=== PATIENT | female | born 1965 | race Caucasian/White ===

== ENCOUNTER 2023-02-02 10:01 | Emergency (ER) | payer OTHER, SELFPAY ==
[2023-02-02 10:05] VITALS: BP 154/96; PULSE 77; RESP 18; TEMP 36.8; O2SAT 98; BMI 27.5
--- NOTE | 2023-02-02 10:15 | PC.NURSE ---
Pt was sent back to waiting room in no distress at this time. 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 A few days ago also relative states he sprayed a lot of bug killer fogger in the room they were in and pt started to have worsening symptoms the day after that.
--- NOTE | 2023-02-02 12:44 | ECG_ITS ---
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
[2023-02-02 12:45] VITALS: PULSE 71
--- NOTE | 2023-02-02 12:46 | XR_ITS ---
The [address] [address] Patient Name: JEANMARIE ECHEVARRIA MRN: [id number] date: 1965 Sex: F Assigned Patient Location: ER Current Patient Location: ER Accession/Order Number: [id number] Exam Date: 02/02/2023 13:00 Report Date: 02/02/2023 13:14 At the request of: DEWAYNE ESPINOZA Procedure: XR chest 1V EXAMINATION: XR chest 1V HISTORY: shortness of breath , chest pain COMPARISON: No relevant comparison available. FINDINGS: LUNGS: No significant pulmonary parenchymal abnormalities. VASCULATURE: No increased pulmonary vasculature. PLEURA: No pneumothorax, effusion, or pleural thickening. CARDIAC: No cardiomegaly or cardiac silhouette abnormality. MEDIASTINUM: No visible mass or adenopathy. BONES: No fracture or visible bone lesion. OTHER: Negative. IMPRESSION: 1. No acute cardiopulmonary process. Electronically authenticated by: MARIANN MARQUES Date: 02/02/2023 13:14
[2023-02-02 13:02] LABS: Basophils Absolute Auto 0.1 10^3/uL (0.0-0.1); Basophils Percent Auto 0.6 % (0.2-2.0); Eosinophils Absolute Auto 0.1 10^3/uL (0.0-0.7); Eosinophils Percent Auto 0.8 % (0.9-7.0); Hematocrit 41.6 % (36.0-48.0); Hemoglobin 13.8 g/dL (12.0-16.0); Immature Granulocytes Abs Auto 0.05 10^3/uL (0.00-0.03); Immature Granulocytes Pct Auto 0.4 % (0.0-0.5); Lymphocytes Absolute Auto 3.6 10^3/uL (1.2-3.8); Lymphocytes Percent Auto 27.3 % (20.5-60.0); Mean Corpuscular HGB Conc 33.2 g/dL (29.9-35.2); Mean Corpuscular Hemoglobin 29.6 pg (26.7-34.0); Mean Corpuscular Volume 89.3 fL (81.0-99.0); Mean Platelet Volume 9.5 fL (9.5-13.5); Monocytes Absolute Auto 0.8 10^3/uL (0.3-0.8); Monocytes Percent Auto 6.4 % (1.7-12.0); Neutrophils Absolute Auto 8.5 10^3/uL (1.4-6.5); Neutrophils Percent Auto 64.5 % (43.0-75.0); Platelet Count 396 10^3/uL (150-450); Red Blood Count 4.66 10^6/uL (4.20-5.40); Red Cell Distribution Width 15.4 % (11.0-15.0); White Blood Count 13.2 10^3/uL (4.0-11.0)
[2023-02-02 13:19] LABS: Alanine Aminotransferase 23 U/L (14-59); Albumin Globulin Ratio 0.8; Albumin Level 3.5 g/dL (3.4-5.0); Alkaline Phosphatase 165 U/L (46-116); Anion Gap 13.8; Aspartate Amino Transferase 18 U/L (15-37); BUN Creatinine Ratio 16.5; Bilirubin Total 0.3 mg/dL (0.2-1.0); Calcium 9.5 mg/dL (8.5-10.1); Carbon Dioxide 25.1 mmol/L (21.0-32.0); Chloride 103 mmol/L (98-107); Estimated GFR (African America >60 (>=60); Estimated GFR (Non-African Ame >60 (>=60); Globulin 4.6 g/dL; Glucose 141 mg/dL (74-106); Potassium 3.9 mmol/L (3.5-5.1); Sodium 138 mmol/L (136-145); Total Protein 8.1 g/dL (6.4-8.2); Troponin I High Sensitivity 13.1 pg/mL (4.0-51.3)
--- NOTE | 2023-02-02 13:55 | ED.SOB1 ---
HPI - SOB/Dyspnea General Chief Complaint: Shortness of Breath/Dyspnea Stated Complaint: SOB Time Seen by Provider: 02/02/23 12:46 Source: patient Mode of arrival: walk-in Limitations: no limitations History of Present Illness HPI Narrative: She presents emergency Department with complaint of shortness of breath. She states she has a cough which is nonproductive for a week. She states in the last couple of days and getting worse. She has a history of chronic obstructive pulmonary disease. 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 She also states that they sprayed the house with bronchiolar under and symptoms worsen much more after that. She complains of wheezing. She states when she coughs she gets chest pain. She denies any nausea, vomiting, diarrhea, constipation, abdominal pain. She denies any palpitations, dizziness. She denies any fever, chills. Denies any sore throat. He denies any flank pain, hematuria, dysuria. She denies any trauma. Related Data Home Medications Medication Instructions Recorded Confirmed aspirin 81 mg chewable tablet 81 mg PO DAILY 02/02/23 02/02/23 atorvastatin 80 mg tablet 80 mg PO DAILY 02/02/23 02/02/23 isosorbide mononitrate 30 mg 30 mg PO DAILY 02/02/23 02/02/23 tablet,extended release 24 hr metoprolol succinate 50 mg 50 mg PO Q12H 02/02/23 02/02/23 tablet,extended release 24 hr nitroglycerin 0.4 mg sublingual 0.4 mg sublingual Q5M PRN chest 02/02/23 02/02/23 tablet pain ticagrelor 90 mg tablet (Brilinta) 90 mg PO Q12H 02/02/23 02/02/23 Previous Rx's Medication Instructions Recorded albuterol sulfate 90 mcg/actuation 2 inh inhalation Q4H PRN shortness 02/02/23 breath activated powder inhaler of breath #1 ea methylprednisolone 4 mg tablets in 4 mg PO DAILY #21 ea 02/02/23 a dose pack (Medrol (Rios)) methylprednisolone 4 mg tablets in 4 mg PO DAILY #21 ea 02/02/23 a dose pack (Medrol (Rios)) Allergies Allergy/AdvReac Type Severity Reaction Status Date / Time No Known Drug Allergies Allergy Verified 02/02/23 10:08 Review of Systems ROS Status of ROS 10 or more systems reviewed and unremarkable except as noted in history and below [facility] Social History Smoking status: Current every day smoker Exam Narrative Exam Narrative: Nurses notes and vital signs reviewed and patient is not hypoxic. General: Nontoxic, Well-appearing and in no apparent distress. Skin: Warm, dry, no pallor noted. No Rash Head: Normocephalic, atraumatic. Neck: Supple, non-tender. Eye: Pupils are equal, round and EOMI. No scleral icterus. Ears, Nose, Mouth, and Throat: TM clear, no posterior oropharynx erythema or nasal mucosal hypertrophy, uvula is mid-line Oral mucosa is moist Cardiovascular: Regular Rate and Rhythm without murmur, gallop or rub. Respiratory: No accessory muscle use or respiratory distress. Lungs Occasional expiratory wheeze and rhonchi Chest Wall: no tenderness Back: No midline thoracic or lumbar vertebral tenderness. No CVA tenderness Musculoskeletal: normal ROM, no calf or popliteal tenderness, no lower extremity edema/swelling GI: Abdomen is soft, non-distended. Normal bowel sounds. No masses appreciated. No tenderness to palpation. No rebound, guarding, or rigidity noted. Neurological: A&O x4. No cranial nerve dysfunction observed. No truncal ataxia. Moves all extremities. Sensation intact. Psychiatric: Cooperative and interactive. Normal mood and affect. Constitutional Vital Signs - 24 hr 02/02/23 10:05 02/02/23 14:00 02/02/23 15:04 Temperature 98.2 F Pulse Rate [Monitor] 77 66 Respiratory Rate 18 20 Blood Pressure [Left Arm] 154/96 H 132/69 H Pulse Oximetry 98 98 97 Oxygen Delivery Method Room Air Room Air Course Vital Signs Vital signs: Vital Signs Temperature 98.2 F 02/02/23 10:05 Pulse Rate 77 02/02/23 10:05 Respiratory Rate 18 02/02/23 10:05 Blood Pressure 154/96 H 02/02/23 10:05 Pulse Oximetry 98 02/02/23 10:05 Oxygen Delivery Method Room Air 02/02/23 10:05 Temperature 98.2 F 02/02/23 10:05 Pulse Rate 76 02/02/23 16:01 Respiratory Rate 20 02/02/23 16:01 Blood Pressure 128/64 H 02/02/23 16:01 Pulse Oximetry 98 02/02/23 16:01 Oxygen Delivery Method Room Air 02/02/23 14:00 MDM - SOB/Dyspnea MDM Narrative Medical decision making narrative: Patient had 2 stents placed in 2019. She had a heart catheterization last month at [facility]. No stentable arteries. EKG was compared to EKG from prior [facility] and there are no acute changes. Patient states that she felt better after a DuoNeb treatment was given. She was given 125 Solu-Medrol. She does not have inhalers at home. She will be given a prescription for albuterol and Medrol Dosepak. She is to follow-up with Dr. Nair. She is to follow-up with Dr. garvin. The patient was discussed with Dr. Vicente ang who advised the patient can follow up as an outpatient. At this time the patient is without objective evidence of an acute process requiring hospitalization or inpatient management. The patient has remained hemodynamically stable. No additional indication for emergent studies at this time. I answered all questions. Discussed discharge instructions including standard anticipatory guidance and what should prompt a return to the emergency department, including if they get worse are not getting better or develops any new or concerning symptoms. I've given them specific time frame in which to follow-up, and who to follow-up with. The patient demonstrates understanding. Patient is nontoxic and stable for discharge with outpatient follow-up. This note was created with the assistance of a speech recognition program. Although the intention is to generate documents that actually reflects the content of the visit, no guarantees can be provided that every mistake has been identified and corrected by editing. Differential Diagnosis Differential diagnosis: Likely acute exacerbation of chronic obstructive airways disease, congestive heart failure, community acquired pneumonia, asthma with exacerbation and pulmonary embolism Medical Records Attestation: I reviewed the patient's medical records. Lab Data Attestation: I reviewed the patient's lab results. Labs: Lab Results 02/02/23 02/02/23 Range/Units 12:50 14:13 WBC 13.2 H (4.0-11.0) 10^3/uL RBC 4.66 (4.20-5.40) 10^6/uL Hgb 13.8 (12.0-16.0) g/dL Hct 41.6 (36.0-48.0) % MCV 89.3 (81.0-99.0) fL MCH 29.6 (26.7-34.0) pg MCHC 33.2 (29.9-35.2) g/dL RDW 15.4 H (11.0-15.0) % Plt Count 396 (150-450) 10^3/uL MPV 9.5 (9.5-13.5) fL Neut % (Auto) 64.5 (43.0-75.0) % Lymph % (Auto) 27.3 (20.5-60.0) % Boyle % (Auto) 6.4 (1.7-12.0) % Eos % (Auto) 0.8 L (0.9-7.0) % Baso % (Auto) 0.6 (0.2-2.0) % Neut # (Auto) 8.5 H (1.4-6.5) 10^3/uL Lymph # (Auto) 3.6 (1.2-3.8) 10^3/uL Boyle # (Auto) 0.8 (0.3-0.8) 10^3/uL Eos # (Auto) 0.1 (0.0-0.7) 10^3/uL Baso # (Auto) 0.1 (0.0-0.1) 10^3/uL Abs Immat Gran (auto) 0.05 H (0.00-0.03) 10^3/uL Imm/Tot Granulo (auto) 0.4 (0.0-0.5) % D-Dimer 0.47 (<=0.59) mg/L FEU Sodium 138 (136-145) mmol/L Potassium 3.9 (3.5-5.1) mmol/L Chloride 103 (98-107) mmol/L Carbon Dioxide 25.1 (21.0-32.0) mmol/L Anion Gap 13.8 BUN 13.0 (7.0-18.0) mg/dL Creatinine 0.79 (0.55-1.02) mg/dL Est GFR ( Amer) >60 (>=60) Est GFR (Non-Af Amer) >60 (>=60) BUN/Creatinine Ratio 16.5 Glucose 141 H (74-106) mg/dL Calcium 9.5 (8.5-10.1) mg/dL Total Bilirubin 0.3 (0.2-1.0) mg/dL AST 18 (15-37) U/L ALT 23 (14-59) U/L Alkaline Phosphatase 165 H (46-116) U/L Troponin I High Sens 13.1 13.9 (4.0-51.3) pg/mL NT-Pro-B Natriuret Pep 706.0 (<=900.0) pg/mL Total Protein 8.1 (6.4-8.2) g/dL Albumin 3.5 (3.4-5.0) g/dL Globulin 4.6 g/dL Albumin/Globulin Ratio 0.8 ECG Data Attestation: I personally reviewed and interpreted this ECG as follows: (Sinus rhythm 60 bpm, T-wave inversions and ST depressions inferior lateral leads. No change from previous 12/2022) Discharge Plan Discharge Chief Complaint: Shortness of Breath/Dyspnea Clinical Impression: Emphysema lung, Chest pain Patient Disposition: Home, Self-Care Time of Disposition Decision: 15:35 Condition: Good Mode of Transportation: Private Vehicle Prescriptions / Home Meds: New albuterol sulfate 90 mcg/actuation aerosol powdr breath activated 2 inh inhalation Q4H PRN (Reason: shortness of breath) Qty: 1 0RF methylprednisolone [Medrol (Rios)] 4 mg tablets,dose pack 4 mg PO DAILY Qty: 21 0RF methylprednisolone [Medrol (Rios)] 4 mg tablets,dose pack 4 mg PO DAILY Qty: 21 0RF No Action aspirin 81 mg tablet,chewable 81 mg PO DAILY atorvastatin 80 mg tablet 80 mg PO DAILY isosorbide mononitrate 30 mg tablet extended release 24 hr 30 mg PO DAILY metoprolol succinate 50 mg tablet extended release 24 hr 50 mg PO Q12H nitroglycerin 0.4 mg tablet, sublingual 0.4 mg sublingual Q5M PRN (Reason: chest pain) Brilinta 90 mg tablet 90 mg PO Q12H Instructions: Chest Pain (ED), Emphysema (ED) Stand Alone Forms: Portal Instructions Referrals: JON GARVIN [Primary Care Provider] - 1 week Radames Nair DO [Physician] - 1 week Discharge Date/Time: 02/02/23 16:06
[2023-02-02 14:00] VITALS: O2SAT 98
[2023-02-02] MEDS: IPRATROPIUM/ALBUTEROL SULFATE 3 ML AMPUL.NEB IH (14:09)
[2023-02-02 14:31] LABS: D Dimer 0.47 mg/L FEU (<=0.59)
[2023-02-02 14:52] LABS: Troponin I High Sensitivity 13.9 pg/mL (4.0-51.3)
[2023-02-02] MEDS: METHYLPREDNISOLONE SOD SUCC PF 125 MG/2 ML VIAL IM (15:01)
[2023-02-02 15:04] VITALS: BP 132/69; PULSE 66; RESP 20; O2SAT 97
[2023-02-02 16:01] VITALS: BP 128/64; PULSE 76; RESP 20; O2SAT 98
== END 2023-02-02 16:06 | disposition home or self-care (01) ==
PROVIDERS: Emergency Provider Emergency Medicine; PCP Family Medicine
DX: J43.9 Emphysema, unspecified (principal); R07.9 Chest pain, unspecified; Z79.82 Long term (current) use of aspirin; Z95.5 Presence of coronary angioplasty implant and graft; Z79.899 Other long term (current) drug therapy
CPT/HCPCS: 36415; 71045; 80053; 83880; 84484; 85025; 85378; 93005; 94640; 96374; 99285; G0463; J2930

== ENCOUNTER 2023-02-19 18:21 | Inpatient (IN) | payer OTHER, SELFPAY ==
[2023-02-19] VITALS (17 sets, daily range): BP systolic 143–173; BP diastolic 81–132; PULSE 78–109; RESP 14–34; TEMP 36.8–37.2; O2SAT 93–99; BMI 27.5; BMI 28.5
--- NOTE | 2023-02-19 18:25 | ECG_ITS ---
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
--- NOTE | 2023-02-19 18:26 | CT_ITS ---
The [address] [address] Patient Name: JEANMARIE ECHEVARRIA MRN: [id number] date: 1965 Sex: F Assigned Patient Location: ER Current Patient Location: Accession/Order Number: [id number] Exam Date: 02/19/2023 18:35 Report Date: 02/19/2023 19:32 At the request of: JOEL RIDDLE Procedure: CT angio chest EXAM: CT pulmonary angiogram of the chest using IV iodinated contrast. 3-D imaging was performed. Dose reduction technique used: Automated exposure control and/or adjustment of the mA and/or kV according to patient size and/or use of iterative reconstruction technique. REASON FOR EXAM: Dyspnea, cough r/o pe COMPARISON: None FINDINGS: No pulmonary emboli. No aortic dissection. No pneumothorax. No acute airspace opacities. No pleural effusion. No acute fractures. Mass adjacent abutting the superior margin of the left mainstem bronchus, anterior margin of the aorta and anterior esophagus measuring r 3.0 x 1.9 x 2.2 cm this has central low density relative to the periphery and has mass effect upon the airway. There is mild surrounding fat stranding. 4 mm posterior left upper lobe solid horn nodule. 2 mm right upper lobe solid nodule (series 4, image 31). Coronary atherosclerotic calcifications. Chronic T7 compression fracture with minimal height loss. Remainder unremarkable. IMPRESSION: 1. Mass in the left mediastinum abutting and narrowing the left mainstem bronchus. This may represent malignancy or abscess/infection would be a alternative consideration. This could be further evaluated with MRI or endoscopic ultrasound. 2. No pulmonary embolism or other acute abnormalities in the chest. 3. Tiny indeterminate pulmonary nodules. Electronically authenticated by: RONALD HUGGINS Date: 02/19/2023 19:32
--- NOTE | 2023-02-19 18:32 | ED.GENADUL1 ---
HPI - General Adult General Chief complaint: Shortness of Breath/Dyspnea Stated complaint: Shortness of Breath Time Seen by Provider: 02/19/23 18:24 Source: patient Mode of arrival: ambulance Limitations: no limitations History of Present Illness HPI narrative: Patient is a 57-year-old female presents to the Emergency Room with concerns of shortness of breath and chest and back pain. Patient has a history of smoking, was recently seen in the Emergency Room on 02/02/23 for the same complaint and patient notes despite a Medrol Dosepak and prednisone her symptoms are worse. Patient has been playing phone tag with pulmonology and has not yet gotten in for follow-up visit. Patient is on her left and aspirin with a history of cardiac stents in two thousand twenty. Previous Emergency Room note mentions a cardiac catheter one month ago. Patient reports pain with breathing pleuritic burning sensation between her shoulder blades and substernal chest. Patient recently had a flight to [place] six days ago and did note some shortness of breath while traveling in the plane as well. She has had a nonproductive cough for three weeks. She denies any fevers or chills. She has home inhalers but did not use them today. Patient able to speak in full sentences, audible wheezes noted at the bedside. It's been three weeks and I'm not any better. Related Data Home Medications Medication Instructions Recorded Confirmed aspirin 81 mg chewable tablet 81 mg PO DAILY 02/02/23 02/19/23 atorvastatin 80 mg tablet 80 mg PO DAILY 02/02/23 02/19/23 isosorbide mononitrate 30 mg 30 mg PO DAILY 02/02/23 02/19/23 tablet,extended release 24 hr metoprolol succinate 50 mg 50 mg PO Q12H 02/02/23 02/19/23 tablet,extended release 24 hr nitroglycerin 0.4 mg sublingual 0.4 mg sublingual Q5M PRN chest 02/02/23 02/19/23 tablet pain ticagrelor 90 mg tablet (Brilinta) 90 mg PO Q12H 02/02/23 02/19/23 Previous Rx's Medication Instructions Recorded albuterol sulfate 90 mcg/actuation 2 inh inhalation Q4H PRN shortness 02/02/23 breath activated powder inhaler of breath #1 ea Allergies Allergy/AdvReac Type Severity Reaction Status Date / Time No Known Drug Allergies Allergy Verified 02/02/23 10:08 Review of Systems ROS Constitutional Denies: fever or chills Cardiovascular Reports: chest pain; Denies: palpitations, edema or swelling of feet/ankles Respiratory Reports: shortness of breath, cough, wheezing and pain on inspiration; Denies: coughing up blood Gastrointestinal Denies: abdominal pain, nausea or vomiting Genitourinary Denies: painful urination Musculoskeletal Denies: back pain or neck pain Integumentary/Breast Denies: rash, itching or redness Neurological Denies: headache Psychiatric Denies: anxiety Hematologic/Lymphatic Denies: easy bruising Allergic/Immunologic Denies: hives PFSH [facility] Medical History (Updated 02/19/23 @ 22:24 by Elisabeth Singer) Surgical History (Updated 02/19/23 @ 22:24 by Elisabeth Singer) Family History (Updated 02/19/23 @ 22:25 by Elisabeth Singer) Mother Family history of CHF (congestive heart failure) Family history of diabetes mellitus Family history of hypertension Family history of myocardial infarction Social History (Updated 02/19/23 @ 22:28 by Elisabeth Singer) Within the past year, how often did you have a drink containing alcohol: never Within the past year, how often did you have six or more drinks on one occasion: never Score interpretation: A score less than 3 is consistent with normal alcohol consumption. Smoking status: Current every day smoker Second hand tobacco smoke exposure: Yes Non-prescribed substance use: denies use Previous occupational history: Does not work Known occupational exposures/hazards: No Highest level of school completed/degree received: high school graduate Do you want help with school or training: No Are you now , , , , never or living with a partner: In a typical week, how many times do you talk on the telephone with family, friends, or neighbors: never How often do you get together with friends or relatives: never How often do you attend mu-ism or nondenominational services: never Do you belong to any clubs or organizations such as mu-ism groups unions, fraternal or athletic groups, or school groups: no Total score: 1 Score interpretation: A score of less than or equal to 1 indicates the most socially isolated. Little interest or pleasure in doing things: several days Feeling down, depressed, or hopeless: several days Feel stressed/tense/nervous/anxious/difficulty sleeping: very much Life stressors: other Life stressor details: Due to disability, difficulty making decisions: No Do you think of yourself as: straight/heterosexual Gender Identity: female Exam Narrative Exam Narrative: Nurses notes and vital signs reviewed and patient is hypoxic. General: The patient appears well and in no apparent distress. Audible wheezes are noted, she is sitting up in the cart without any accessory muscle use. Skin: Warm, dry, no pallor noted. No evidence of rash, patient has a topical pain patch applied to the midthoracic region Head: Normocephalic, atraumatic Neck: Supple, trachea mid-line, no tenderness, no lymphadenopathy Eye: Pupils are equal, round and reactive to light, EOMI Ears, Nose, Mouth, and Throat: TM are clear, normal light reflex, oral mucosa is moist, no posterior oropharynx erythema or hypertrophy, uvula is mid-line Cardiovascular: Regular Rate and Rhythm Respiratory: Patient is in no distress, no accessory muscle use, lungs with notable wheezing. Diminished in the bases Chest Wall: no tenderness, pleuritic chest pain with deep breath Back: non-tender, no CVA tenderness Musculoskeletal: normal ROM, no tenderness, no swelling GI: Normal bowel sounds, no tenderness to palpation, no masses appreciated. No rebound, guarding, or rigidity noted. Neurological: A&O x4 Psychiatric: Cooperative Constitutional Vital Signs - 24 hr 02/19/23 18:22 02/19/23 18:31 02/19/23 18:34 Temperature 98.9 F Pulse Rate Pulse Rate [Monitor] 93 H Respiratory Rate 22 26 H Blood Pressure Blood Pressure [Right Arm] 155/101 H Pulse Oximetry 93 L 94 L 95 Oxygen Delivery Method Room Air Room Air Room Air Oxygen Delivery Flow Rate 02/19/23 19:20 02/19/23 19:23 02/19/23 19:31 Temperature Pulse Rate 86 78 96 H Pulse Rate [Monitor] Respiratory Rate 20 18 18 Blood Pressure Blood Pressure [Right Arm] Pulse Oximetry 96 99 95 Oxygen Delivery Method Oxygen Delivery Flow Rate 02/19/23 19:40 02/19/23 18:29 02/19/23 18:29 Temperature Pulse Rate 88 88 Pulse Rate [Monitor] Respiratory Rate 25 H 14 16 Blood Pressure 143/100 H Blood Pressure [Right Arm] Pulse Oximetry 97 94 L 94 L Oxygen Delivery Method Nasal Cannula Oxygen Delivery Flow Rate 2 02/19/23 18:30 02/19/23 19:00 02/19/23 19:30 Temperature Pulse Rate 87 80 95 H Pulse Rate [Monitor] Respiratory Rate 17 16 34 H Blood Pressure 168/90 H 161/96 H 162/96 H Blood Pressure [Right Arm] Pulse Oximetry 95 99 97 Oxygen Delivery Method Oxygen Delivery Flow Rate 02/19/23 20:00 02/19/23 20:00 02/19/23 20:30 Temperature Pulse Rate 92 H 90 90 Pulse Rate [Monitor] Respiratory Rate 18 20 14 Blood Pressure 154/132 H 154/132 H 173/105 H Blood Pressure [Right Arm] Pulse Oximetry 98 97 98 Oxygen Delivery Method Oxygen Delivery Flow Rate Course Vital Signs Vital signs: Vital Signs Temperature 98.9 F 02/19/23 18:22 Pulse Rate 93 H 02/19/23 18:22 Respiratory Rate 22 02/19/23 18:22 Blood Pressure 155/101 H 02/19/23 18:22 Pulse Oximetry 93 L 02/19/23 18:22 Oxygen Delivery Method Room Air 02/19/23 18:22 Temperature 98.3 F 02/19/23 21:31 Pulse Rate 93 H 02/19/23 21:31 Respiratory Rate 18 02/19/23 21:31 Blood Pressure 155/81 H 02/19/23 21:31 Pulse Oximetry 93 L 02/19/23 21:31 Oxygen Delivery Method Room Air 02/19/23 21:31 Oxygen Delivery Flow Rate 2 02/19/23 19:40 Medical Decision Making MDM Narrative Medical decision making narrative: Patient presents with likely chronic obstructive pulmonary disease/emphysema exacerbation. Patient continuing to smoke. Reports compliance with her medications, did have recent long travels with [employer] flight, a CTA of the chest be performed. Patient medicated with DuoNeb and albuterol inhaler, she is given 125 mg Solu-Medrol IV. Patient did not take her own home inhalers today. She verbalized plan previously to meet with certified social workers in health care outpatient but has not yet been able to schedule an appointment. Patient reports pain 7/10 with deep breath and cough, she will be given Hycodan to help with pain and suppress cough. We reviewed CT of the chest noted for mediastinal mass possibly pushing on the left main stem bronchus. Patient with shortness of breath and a likely chronic obstructive pulmonary disease exacerbation the case is discussed with Dr. uribe, not hospitalist who is agreeable with admission for pulmonology consult, patient definitively may need eval cardiothoracic surgery pending further breathing, patient requiring 2 L/m nasal cannula. Patient agreeable with admission for further treatment, she'll be started on Rocephin and Levaquin IV with blood cultures pending. Lab Data Lab results reviewed: Yes I reviewed the patient's lab results Lab results narrative: Lactic pending with admission noted elevated white blood cell count Labs: Lab Results 02/19/23 02/19/23 02/19/23 Range/Units 18:25 20:00 20:42 WBC 16.3 H (4.0-11.0) 10^3/uL RBC 4.64 (4.20-5.40) 10^6/uL Hgb 13.7 (12.0-16.0) g/dL Hct 41.2 (36.0-48.0) % MCV 88.8 (81.0-99.0) fL MCH 29.5 (26.7-34.0) pg MCHC 33.3 (29.9-35.2) g/dL RDW 15.6 H (11.0-15.0) % Plt Count 440 (150-450) 10^3/uL MPV 9.5 (9.5-13.5) fL Neut % (Auto) 58.4 (43.0-75.0) % Lymph % (Auto) 32.1 (20.5-60.0) % [place] % (Auto) 7.8 (1.7-12.0) % Eos % (Auto) 0.7 L (0.9-7.0) % Baso % (Auto) 0.6 (0.2-2.0) % Neut # (Auto) 9.5 H (1.4-6.5) 10^3/uL Lymph # (Auto) 5.3 H (1.2-3.8) 10^3/uL [place] # (Auto) 1.3 H (0.3-0.8) 10^3/uL Eos # (Auto) 0.1 (0.0-0.7) 10^3/uL Baso # (Auto) 0.1 (0.0-0.1) 10^3/uL Abs Immat Gran (auto) 0.06 H (0.00-0.03) 10^3/uL Imm/Tot Granulo (auto) 0.4 (0.0-0.5) % PT 10.3 (9.0-11.6) sec INR 0.97 APTT 30.5 (22.3-36.2) sec Sodium 137 (136-145) mmol/L Potassium 3.8 (3.5-5.1) mmol/L Chloride 105 (98-107) mmol/L Carbon Dioxide 20.2 L (21.0-32.0) mmol/L Anion Gap 15.6 BUN 16.0 (7.0-18.0) mg/dL Creatinine 0.95 (0.55-1.02) mg/dL Est GFR ( Amer) >60 (>=60) Est GFR (Non-Af Amer) >60 (>=60) BUN/Creatinine Ratio 16.8 Glucose 117 H (74-106) mg/dL Lactate 1.0 (0.4-2.0) mmol/L Calcium 9.3 (8.5-10.1) mg/dL Total Bilirubin 0.2 (0.2-1.0) mg/dL AST 23 (15-37) U/L ALT 24 (14-59) U/L Alkaline Phosphatase 170 H (46-116) U/L Troponin I High Sens 26.9 (4.0-51.3) pg/mL Total Protein 8.1 (6.4-8.2) g/dL Albumin 3.6 (3.4-5.0) g/dL Globulin 4.5 g/dL Albumin/Globulin Ratio 0.8 SARS-CoV-2 (PCR) Negative (NEGATIVE) At the request of: JOEL RIDDLE Procedure: CT angio chest EXAM: CT pulmonary angiogram of the chest using IV iodinated contrast. 3-D imaging was performed. Dose reduction technique used: Automated exposure control and/or adjustment of the mA and/or kV according to patient size and/or use of iterative reconstruction technique. REASON FOR EXAM: Dyspnea, cough r/o pe COMPARISON: None FINDINGS: No pulmonary emboli. No aortic dissection. No pneumothorax. No acute airspace opacities. No pleural effusion. No acute fractures. Mass adjacent abutting the superior margin of the left mainstem bronchus, anterior margin of the aorta and anterior esophagus measuring r 3.0 x 1.9 x 2.2 cm this has central low density relative to the periphery and has mass effect upon the airway. There is mild surrounding fat stranding. 4 mm posterior left upper lobe solid horn nodule. 2 mm right upper lobe solid nodule (series 4, image 31). Coronary atherosclerotic calcifications. Chronic T7 compression fracture with minimal height loss. Remainder unremarkable. IMPRESSION: 1. Mass in the left mediastinum abutting and narrowing the left mainstem bronchus. This may represent malignancy or abscess/infection would be a alternative consideration. This could be further evaluated with MRI or endoscopic ultrasound. 2. No pulmonary embolism or other acute abnormalities in the chest. 3. Tiny indeterminate pulmonary nodules. Electronically authenticated by: RONALD HUGGINS Date: 02/19/2023 19:32 ECG Data Attestation: I personally reviewed and interpreted this ECG as follows: (EKG interpretation: Emergency Department physician interpretation, 90bpm normal sinus rhythm, no ectopy, no ST segment elevation,? st depression lateral leads, with inverted t waves) Prior ECG tracings: available for review (EKG 02/02/23 appears unchanged.) Discharge Plan Discharge Chief Complaint: Shortness of Breath/Dyspnea Clinical Impression: Mediastinal mass, Hypoxia, Acute exacerbation of chronic obstructive pulmonary disease Patient Disposition: Admitted As Inpatient Time of Disposition Decision: 19:56 Condition: Good Discharge Date/Time: 02/19/23 21:23
[2023-02-19 18:35] LABS: Basophils Absolute Auto 0.1 10^3/uL (0.0-0.1); Basophils Percent Auto 0.6 % (0.2-2.0); Eosinophils Absolute Auto 0.1 10^3/uL (0.0-0.7); Eosinophils Percent Auto 0.7 % (0.9-7.0); Hematocrit 41.2 % (36.0-48.0); Hemoglobin 13.7 g/dL (12.0-16.0); Immature Granulocytes Abs Auto 0.06 10^3/uL (0.00-0.03); Immature Granulocytes Pct Auto 0.4 % (0.0-0.5); Lymphocytes Absolute Auto 5.3 10^3/uL (1.2-3.8); Lymphocytes Percent Auto 32.1 % (20.5-60.0); Mean Corpuscular HGB Conc 33.3 g/dL (29.9-35.2); Mean Corpuscular Hemoglobin 29.5 pg (26.7-34.0); Mean Corpuscular Volume 88.8 fL (81.0-99.0); Mean Platelet Volume 9.5 fL (9.5-13.5); Monocytes Absolute Auto 1.3 10^3/uL (0.3-0.8); Monocytes Percent Auto 7.8 % (1.7-12.0); Neutrophils Absolute Auto 9.5 10^3/uL (1.4-6.5); Neutrophils Percent Auto 58.4 % (43.0-75.0); Platelet Count 440 10^3/uL (150-450); Red Blood Count 4.64 10^6/uL (4.20-5.40); Red Cell Distribution Width 15.6 % (11.0-15.0); White Blood Count 16.3 10^3/uL (4.0-11.0)
[2023-02-19 18:52] LABS: Alanine Aminotransferase 24 U/L (14-59); Albumin Globulin Ratio 0.8; Albumin Level 3.6 g/dL (3.4-5.0); Alkaline Phosphatase 170 U/L (46-116); Anion Gap 15.6; Aspartate Amino Transferase 23 U/L (15-37); BUN Creatinine Ratio 16.8; Bilirubin Total 0.2 mg/dL (0.2-1.0); Calcium 9.3 mg/dL (8.5-10.1); Carbon Dioxide 20.2 mmol/L (21.0-32.0); Chloride 105 mmol/L (98-107); Estimated GFR (African America >60 (>=60); Estimated GFR (Non-African Ame >60 (>=60); Globulin 4.5 g/dL; Glucose 117 mg/dL (74-106); INR 0.97; Partial Thromboplastin Time 30.5 sec (22.3-36.2); Potassium 3.8 mmol/L (3.5-5.1); Prothrombin Time 10.3 sec (9.0-11.6); Sodium 137 mmol/L (136-145); Total Protein 8.1 g/dL (6.4-8.2); Troponin I High Sensitivity 26.9 pg/mL (4.0-51.3)
[2023-02-19] MEDS: METHYLPREDNISOLONE SOD SUCC PF 125 MG/2 ML VIAL IVP (19:12)
[2023-02-19] MEDS: KETOROLAC TROMETHAMINE 30 MG/ML VIAL 15 MG IVP (19:12)
[2023-02-19] MEDS: 0.9 % SODIUM CHLORIDE 1,000 ML 999 ML IV (19:13)
[2023-02-19] MEDS: IPRATROPIUM/ALBUTEROL SULFATE 3 ML AMPUL.NEB IH ×2 (19:14→23:40)
[2023-02-19] MEDS: ALBUTEROL SULFATE 2.5 MG/3 ML VIAL NEB (19:23)
--- NOTE | 2023-02-19 19:41 | PC.NURSE ---
patient used call light and states she feels like she cannot breath. patient is 97% on monitor. recently finished breathing treatment. cough has gotten worse and continuos. patient placed on 2 liters for comfort. physician notifed. patient in high fowlers.
[2023-02-19] MEDS: LEVOFLOXACIN IN DEXTROSE 5 % 750 MG/150 ML IV.SOLN 100 MG IV (20:08)
[2023-02-19 21:13] LABS: SARS-CoV-2 Ag NEGATIVE (NEGATIVE)
--- NOTE | 2023-02-19 21:38 | PC.NURSE ---
o2 discontinued prior to admission. patient 96 on RA. no longer coughing continuously
[2023-02-19] MEDS: CEFTRIAXONE 1,000 MG in 0.9 % SODIUM CHLORIDE 50 ML 100 MG IV (22:32)
--- NOTE | 2023-02-19 23:19 | W.PM.TELEPN ---
Progress Note: Subjective Subjective Interval history: cough, SOB, night sweats HPI: this is a 57-year-old female w/hx/o COPD, life-long smoker, who presents to the Emergency Room with above complaints. The patient endorses shortness of breath and chest and back pain. Patient was recently seen in the Emergency Room ( 02/02/23 ) with similar complaints, was diagnosed with COPD exacerbation and was D/C'ed with Medrol Dosepak. In spite of prednisone her symptoms are worse. Patient has been playing phone tag with pulmonology and has not yet gotten in for follow-up visit. Patient also has a hx/o CAD, S/P PCI + stents in 2019. Previous Emergency Room note mentions a cardiac catheter one month ago. Patient reports pain with breathing pleuritic burning sensation between her shoulder blades and substernal chest. Patient recently had a flight to [place] six days ago and did note some shortness of breath while traveling in the plane as well. She has had a nonproductive cough for three weeks. She denies any fevers or chills. She has home inhalers but did not use them today. Patient able to speak in full sentences, audible wheezes noted at the bedside. It's been three weeks and I'm not any better. Evaluation in ED significant for elevated WBCs and peribronchial or mediastinal mass, possible abscess. EBUS recommended. Exam Narrative Exam Narrative: NAD, PERRLA, EOMI Neck - supple, thyroid not enlarged Lungs - coarse BSs, decreased at bases, expiratory wheezes S1, S2, no murmurs or gallops ABd - S?NT/ND/+ BSs Ext - no C/C/E Neuro - CN II-XI grossly intact SKin - no rushes Constitutional Vital Signs - 24 hr 02/19/23 18:22 02/19/23 18:31 02/19/23 18:34 Temperature 98.9 F Pulse Rate Pulse Rate [Monitor] 93 H Respiratory Rate 22 26 H Blood Pressure Blood Pressure [Right Arm] 155/101 H Pulse Oximetry 93 L 94 L 95 Oxygen Delivery Method Room Air Room Air Room Air Oxygen Delivery Flow Rate 02/19/23 19:20 02/19/23 19:23 02/19/23 19:31 Temperature Pulse Rate 86 78 96 H Pulse Rate [Monitor] Respiratory Rate 20 18 18 Blood Pressure Blood Pressure [Right Arm] Pulse Oximetry 96 99 95 Oxygen Delivery Method Oxygen Delivery Flow Rate 02/19/23 19:40 02/19/23 18:29 02/19/23 18:29 Temperature Pulse Rate 88 88 Pulse Rate [Monitor] Respiratory Rate 25 H 14 16 Blood Pressure 143/100 H Blood Pressure [Right Arm] Pulse Oximetry 97 94 L 94 L Oxygen Delivery Method Nasal Cannula Oxygen Delivery Flow Rate 2 02/19/23 18:30 02/19/23 19:00 02/19/23 19:30 Temperature Pulse Rate 87 80 95 H Pulse Rate [Monitor] Respiratory Rate 17 16 34 H Blood Pressure 168/90 H 161/96 H 162/96 H Blood Pressure [Right Arm] Pulse Oximetry 95 99 97 Oxygen Delivery Method Oxygen Delivery Flow Rate 02/19/23 20:00 02/19/23 20:00 02/19/23 20:30 Temperature Pulse Rate 92 H 90 90 Pulse Rate [Monitor] Respiratory Rate 18 20 14 Blood Pressure 154/132 H 154/132 H 173/105 H Blood Pressure [Right Arm] Pulse Oximetry 98 97 98 Oxygen Delivery Method Oxygen Delivery Flow Rate 02/19/23 21:31 02/19/23 21:23 Temperature 98.3 F Pulse Rate 93 H Pulse Rate [Monitor] Respiratory Rate 18 20 Blood Pressure Blood Pressure [Right Arm] 155/81 H Pulse Oximetry 93 L 96 Oxygen Delivery Method Room Air Room Air Oxygen Delivery Flow Rate Progress Note: Objective Labs Labs: Short CBC 02/19/23 Range/Units 18:25 WBC 16.3 H (4.0-11.0) 10^3/uL Hgb 13.7 (12.0-16.0) g/dL Hct 41.2 (36.0-48.0) % Plt Count 440 (150-450) 10^3/uL BMP 02/19/23 18:25 Sodium 137 Potassium 3.8 Chloride 105 Carbon Dioxide 20.2 L BUN 16.0 Creatinine 0.95 Glucose 117 H Calcium 9.3 Liver Function 02/19/23 Range/Units 18:25 Total Bilirubin 0.2 (0.2-1.0) mg/dL AST 23 (15-37) U/L ALT 24 (14-59) U/L Alkaline Phosphatase 170 H (46-116) U/L Albumin 3.6 (3.4-5.0) g/dL Progress Note: A&P Assessment and Plan (1) Acute exacerbation of chronic obstructive pulmonary disease: Assessment and Plan: - O2 supplementation - inhailed and systemic steroids - bronchodilators - F/U with Dr. Nair (2) Hypoxia: Assessment and Plan: as above (3) Mediastinal mass: Assessment and Plan: F/U with Dr. Nair - EBUS? (4) Chest pain: Assessment and Plan: M/P related to above (5) Emphysema lung: Assessment and Plan: M/P related to chronic tobacco abuse. see #1 (6) HTN (hypertension): Assessment and Plan: continue home dose of metoprolol, adjust as needed (7) Hyperlipemia: Assessment and Plan: verify and continue home dose of statin (8) CAD (coronary artery disease): Assessment and Plan: continue home regiment, patient recently had PCi. Continue ASA and Brilinta (9) History of PTCA: Assessment and Plan: as above (10) Tobacco abuse: Assessment and Plan: counselled ordered Nicotine patch Telemedicine Attestation Telemedicine Attestation I conducted this encounter from [place]] via secure live, [id number] video conference with the patient, located at [facility] with [COPD exacerbation]. Prior to the interview, the risks and benefits of telemedicine were discussed with the patient and verbal consent was obtained.
[2023-02-19] MEDS: BUDESONIDE 0.5 MG/2 ML AMPULE NEB IH (23:33)
[2023-02-20] VITALS (11 sets, daily range): BP systolic 113–140; BP diastolic 61–74; PULSE 88–109; RESP 18; TEMP 36.6–36.8; O2SAT 91–97; BMI 28.5
[2023-02-20] MEDS: NICOTINE 21 MG PATCH.TD24 TD (00:09)
[2023-02-20] MEDS: METHYLPREDNISOLONE SOD SUCC PF 40 MG/ML VIAL IVP ×4 (00:09→22:45)
[2023-02-20] MEDS: BENZONATATE 100 MG CAPSULE PO (00:09)
[2023-02-20] MEDS: ACETAMINOPHEN 325 MG TABLET 650 MG PO ×3 (00:09→11:35)
[2023-02-20] MEDS: PIPERACILLIN SODIUM/TAZOBACTAM 3.375 GM in 0.9 % SODIUM CHLORIDE 50 ML IV ×4 (00:09→22:45)
[2023-02-20] MEDS: TICAGRELOR 90 MG TABLET PO ×3 (00:10→21:04)
[2023-02-20] MEDS: 0.9 % SODIUM CHLORIDE 1,000 ML 75 ML IV (01:08)
[2023-02-20] MEDS: VANCOMYCIN HCL 1,750 MG in 0.9 % SODIUM CHLORIDE 500 ML 1750 MG IV (03:28)
[2023-02-20] MEDS: 0.9 % SODIUM CHLORIDE 500 ML IV (03:40)
[2023-02-20] MEDS: IPRATROPIUM/ALBUTEROL SULFATE 3 ML AMPUL.NEB IH ×5 (04:27→22:44)
[2023-02-20 04:54] LABS: Alanine Aminotransferase 23 U/L (14-59); Albumin Globulin Ratio 0.7; Albumin Level 3.1 g/dL (3.4-5.0); Alkaline Phosphatase 152 U/L (46-116); Anion Gap 17.7; Aspartate Amino Transferase 19 U/L (15-37); BUN Creatinine Ratio 12.3; Bilirubin Total 0.2 mg/dL (0.2-1.0); Calcium 8.8 mg/dL (8.5-10.1); Chloride 106 mmol/L (98-107); Estimated GFR (African America 60 (>=60); Estimated GFR (Non-African Ame 49 (>=60); Globulin 4.6 g/dL; Glucose 208 mg/dL (74-106); Potassium 3.7 mmol/L (3.5-5.1); Sodium 139 mmol/L (136-145); Total Protein 7.7 g/dL (6.4-8.2)
[2023-02-20] MEDS: ISOSORBIDE MONONITRATE 30 MG TAB.ER.24H PO (08:18)
[2023-02-20] MEDS: ATORVASTATIN CALCIUM 40 MG TABLET 80 MG PO (08:19)
[2023-02-20] MEDS: ASPIRIN 81 MG TAB.CHEW PO (08:19)
[2023-02-20] MEDS: OMEPRAZOLE 40 MG CAPSULE.DR PO (08:20)
[2023-02-20] MEDS: BUDESONIDE 0.5 MG/2 ML AMPULE NEB IH ×2 (11:16→22:44)
--- NOTE | 2023-02-20 11:29 | DIETREC ---
Nutrition Recommendations: 1. Add Heart-Healthy restriction to diet. Reviewed with
[2023-02-20] MEDS: OXYCODONE HCL 5 MG TABLET PO (12:45)
[2023-02-20] MEDS: METOPROLOL SUCCINATE 50 MG TAB.ER.24H PO (12:45)
[2023-02-20] MEDS: LACTATED RINGER'S SOLUTION 1,000 ML 125 ML IV (12:50)
--- NOTE | 2023-02-20 14:40 | CM.NOTE ---
Rounds made with Dr. Morfin, discussed results of CT scan and need for transfer to a larger facility for diagnostic testing. Pt in agreement.
[2023-02-20 15:14] LABS: SARS-CoV-2 NAA NOT DETECTED (NOT DETECTE)
[2023-02-20] MEDS: VANCOMYCIN HCL 750 MG in 0.9 % SODIUM CHLORIDE 250 ML 250 MG IV ×2 (16:55→17:59)
[2023-02-20] MEDS: MORPHINE SULFATE 2 MG/ML SYRINGE IV ×2 (16:55→21:04)
--- NOTE | 2023-02-20 18:02 | P.HP_ITS ---
H&P: HPI History of Present Illness Chief complaint: Shortness of Breath MEDIASTINAL MASS HYPOXIA ACUTE Narrative: 57 y o female presents with midsternal pleuritic chest pain with radiation to her back, ongoing for a few months now but more recently, worse in severity, and more or less persistent. She also has associated chronic cough and SOB. She was recently discharged from ED on Z-pack and PO steroids for COPD exacerbation but her symptoms have gotten really worse over past one week. She is very uncomfort able, has persistent Dyspnea even at rest and currently on 2 L O2 via NC. Patient admitted overnight for acute resp failure with hypoxia, COPD exacerbation and mediastinal mass vs infectious abscess for which she is currently on broad spectrum abx (Vancoymcin/Zosyn), systemic steroids and inhaled bronchodilators. Patient's is current smoker and smokes a pack a day. Her biggest complaints is persistent pleuritic chest pain. Denies fever, chills, nausea, vomiting, abdominal pain. Does not have a formal diagnosis of COPD and uses rescue inhaler as needed. She was started on Imdur for her symptoms with an underlying assumption that her symptoms and chest pain were from esophageal spasm Review of Systems ROS Status of ROS 10 or more systems reviewed and unremarkable except as noted in history and below [facility] Medical History (Updated 02/20/23 @ 18:08 by Shaikh Shelbie MD) Surgical History (Updated 02/20/23 @ 18:08 by Shaikh Shelbie MD) Family History (Updated 02/19/23 @ 22:25 by Elisabeth Singer) Mother Family history of CHF (congestive heart failure) Family history of diabetes mellitus Family history of hypertension Family history of myocardial infarction Social History (Updated 02/19/23 @ 22:28 by Elisabeth Singer) Within the past year, how often did you have a drink containing alcohol: never Within the past year, how often did you have six or more drinks on one occasion: never Score interpretation: A score less than 3 is consistent with normal alcohol consumption. Smoking status: Current every day smoker Second hand tobacco smoke exposure: Yes Non-prescribed substance use: denies use Previous occupational history: Does not work Known occupational exposures/hazards: No Highest level of school completed/degree received: high school graduate Do you want help with school or training: No Are you now , , , , never or living with a partner: In a typical week, how many times do you talk on the telephone with family, friends, or neighbors: never How often do you get together with friends or relatives: never How often do you attend advent or pentecostalism services: never Do you belong to any clubs or organizations such as advent groups unions, fraIntense or athletic groups, or school groups: no Total score: 1 Score interpretation: A score of less than or equal to 1 indicates the most socially isolated. Little interest or pleasure in doing things: several days Feeling down, depressed, or hopeless: several days Feel stressed/tense/nervous/anxious/difficulty sleeping: very much Life stressors: other Life stressor details: Due to disability, difficulty making decisions: No Do you think of yourself as: straight/heterosexual Gender Identity: female Meds Home Medications and Allergies Home Medications Medication Instructions Recorded Confirmed Type albuterol sulfate 90 mcg/actuation 2 inh inhalation Q4H PRN shortness 02/02/23 02/19/23 Rx breath activated powder inhaler of breath #1 ea aspirin 81 mg chewable tablet 81 mg PO DAILY 02/02/23 02/19/23 History atorvastatin 80 mg tablet 80 mg PO DAILY 02/02/23 02/19/23 History isosorbide mononitrate 30 mg 30 mg PO DAILY 02/02/23 02/19/23 History tablet,extended release 24 hr metoprolol succinate 50 mg 50 mg PO Q12H 02/02/23 02/19/23 History tablet,extended release 24 hr nitroglycerin 0.4 mg sublingual 0.4 mg sublingual Q5M PRN chest 02/02/23 02/19/23 History tablet pain ticagrelor 90 mg tablet (Brilinta) 90 mg PO Q12H 02/02/23 02/19/23 History Allergies Allergy/AdvReac Type Severity Reaction Status Date / Time No Known Drug Allergies Allergy Verified 02/02/23 10:08 Exam Constitutional Vital Signs - 24 hr 02/19/23 18:22 02/19/23 18:31 02/19/23 18:34 Temperature 98.9 F Pulse Rate Pulse Rate [Monitor] 93 H Respiratory Rate 22 26 H Blood Pressure Blood Pressure [Right Arm] 155/101 H Pulse Oximetry 93 L 94 L 95 Oxygen Delivery Method Room Air Room Air Room Air Oxygen Delivery Flow Rate 02/19/23 19:20 02/19/23 19:23 02/19/23 19:31 Temperature Pulse Rate 86 78 96 H Pulse Rate [Monitor] Respiratory Rate 20 18 18 Blood Pressure Blood Pressure [Right Arm] Pulse Oximetry 96 99 95 Oxygen Delivery Method Oxygen Delivery Flow Rate 02/19/23 19:40 02/19/23 18:29 02/19/23 18:29 Temperature Pulse Rate 88 88 Pulse Rate [Monitor] Respiratory Rate 25 H 14 16 Blood Pressure 143/100 H Blood Pressure [Right Arm] Pulse Oximetry 97 94 L 94 L Oxygen Delivery Method Nasal Cannula Oxygen Delivery Flow Rate 2 02/19/23 18:30 02/19/23 19:00 02/19/23 19:30 Temperature Pulse Rate 87 80 95 H Pulse Rate [Monitor] Respiratory Rate 17 16 34 H Blood Pressure 168/90 H 161/96 H 162/96 H Blood Pressure [Right Arm] Pulse Oximetry 95 99 97 Oxygen Delivery Method Oxygen Delivery Flow Rate 02/19/23 20:00 02/19/23 20:00 02/19/23 20:30 Temperature Pulse Rate 92 H 90 90 Pulse Rate [Monitor] Respiratory Rate 18 20 14 Blood Pressure 154/132 H 154/132 H 173/105 H Blood Pressure [Right Arm] Pulse Oximetry 98 97 98 Oxygen Delivery Method Oxygen Delivery Flow Rate 02/19/23 21:31 02/19/23 21:23 02/19/23 23:53 Temperature 98.3 F Pulse Rate 93 H 107 H Pulse Rate [Monitor] Respiratory Rate 18 20 22 Blood Pressure Blood Pressure [Right Arm] 155/81 H Pulse Oximetry 93 L 96 97 Oxygen Delivery Method Room Air Room Air Room Air Oxygen Delivery Flow Rate 02/19/23 23:33 02/19/23 23:33 02/20/23 04:30 Temperature 98.3 F Pulse Rate 109 H 99 H Pulse Rate [Monitor] Respiratory Rate 20 18 Blood Pressure Blood Pressure [Right Arm] 124/74 H Pulse Oximetry 96 96 96 Oxygen Delivery Method Room Air Room Air Room Air Oxygen Delivery Flow Rate 02/20/23 04:24 02/20/23 05:28 02/20/23 11:20 Temperature Pulse Rate 98 H Pulse Rate [Monitor] Respiratory Rate 18 Blood Pressure Blood Pressure [Right Arm] Pulse Oximetry 94 L 97 Oxygen Delivery Method Room Air Room Air Room Air Oxygen Delivery Flow Rate 02/20/23 13:56 Temperature 98.3 F Pulse Rate 109 H Pulse Rate [Monitor] Respiratory Rate 18 Blood Pressure Blood Pressure [Right Arm] 113/61 Pulse Oximetry 93 L Oxygen Delivery Method Room Air Oxygen Delivery Flow Rate 2 Documenting provider has reviewed patient's vital signs: yes General appearance: in distress Nutritional appearance: obese Orientation/consciousness: Yes awake, Yes oriented to person, Yes oriented to place and Yes oriented to time HENMT Common normals: normocephalic and head/scalp atraumatic Eye Common normals: conjunctivae normal and no scleral icterus Chest Common normals: inspection of chest normal and palpation of chest normal Respiratory Effort & inspection: able to speak in complete sentences and tachypneic Auscultation: wheezes Cardio Common normals: regular rate, S1 normal heart sound, S2 normal heart sound and no murmurs GI Common normals: Normal to inspection, nondistended, normoactive bowel sounds present, soft to palpation, non-tender and no hepatosplenomegaly Extremity Common normals: normal to inspection and full ROM Neuro Common normals: oriented x3, moves all extremities, no focal motor deficits and no sensory deficits noted Psych Common normals: thought process normal, cooperative, denies homicidal ideation and denies suicidal ideation Results Labs Labs: Short CBC 02/19/23 Range/Units 18:25 WBC 16.3 H (4.0-11.0) 10^3/uL Hgb 13.7 (12.0-16.0) g/dL Hct 41.2 (36.0-48.0) % Plt Count 440 (150-450) 10^3/uL BMP 02/19/23 02/20/23 18:25 04:05 Sodium 137 139 Potassium 3.8 3.7 Chloride 105 106 Carbon Dioxide 20.2 L 19.0 L BUN 16.0 14.0 Creatinine 0.95 1.14 H Glucose 117 H 208 H Calcium 9.3 8.8 Liver Function 02/19/23 02/20/23 Range/Units 18:25 04:05 Total Bilirubin 0.2 0.2 (0.2-1.0) mg/dL AST 23 19 (15-37) U/L ALT 24 23 (14-59) U/L Alkaline Phosphatase 170 H 152 H (46-116) U/L Albumin 3.6 3.1 L (3.4-5.0) g/dL Assessment and Plan Assessment and Plan (1) Acute respiratory failure with hypoxemia: Assessment and Plan: Acute resp failure due to mediastinal mass along with COPD exacerbation. (2) Acute exacerbation of chronic obstructive pulmonary disease: Assessment and Plan: Faint exp wheezing on exam. C/w steroids, duonebs as needed (3) Mediastinal mass: Assessment and Plan: Mediastinal mass on CTA with mild narrowing of her bronchus. D/w Pulm and OSH too - will need outpatient broncho vs mediastinoscopy vs IR guided biopsy. Likely neoplastic mass Patient was being treated for presumed infectious etiology/PNA but seems unlikely and will d/c abx. Leukocytosis is likely from steroids prescribed a week ago (4) Chest pain: Assessment and Plan: Persistent, pleuritic chest pain. Likely from mediastinal mass. (5) CAD (coronary artery disease): Assessment and Plan: s/p PCI in 12/17 for STEMI On ASA, brlinta that were on hold in anticipation of mediastinal biopsy. Will resume as plan is for outpatient biopsy. (6) HTN (hypertension): Assessment and Plan: C/w home meds (7) Hyperlipemia: Assessment and Plan: c/w statin (8) Tobacco abuse: Assessment and Plan: discussed smoking cessation, educated the patient
[2023-02-20] MEDS: MONTELUKAST SODIUM 10 MG TABLET PO (21:04)
[2023-02-20] MEDS: ENOXAPARIN SODIUM 40 MG/0.4 ML SYRINGE SUBQ (21:04)
[2023-02-21] MEDS: NICOTINE 21 MG PATCH.TD24 TD (00:13)
[2023-02-21] MEDS: LACTATED RINGER'S SOLUTION 1,000 ML 125 ML IV ×2 (00:13→09:31)
[2023-02-21 01:11] VITALS: PULSE 93; O2SAT 92
[2023-02-21] MEDS: MORPHINE SULFATE 2 MG/ML SYRINGE IV ×2 (01:17→08:20)
[2023-02-21 03:06] VITALS: PULSE 78; O2SAT 93
[2023-02-21 04:22] VITALS: PULSE 77; O2SAT 92
[2023-02-21 04:50] VITALS: PULSE 78; RESP 18; O2SAT 97
[2023-02-21] MEDS: IPRATROPIUM/ALBUTEROL SULFATE 3 ML AMPUL.NEB IH ×3 (04:50→16:18)
[2023-02-21 04:51] LABS: Hemoglobin 10.7 g/dL (12.0-16.0); Mean Corpuscular HGB Conc 33.4 g/dL (29.9-35.2); Mean Corpuscular Hemoglobin 30.2 pg (26.7-34.0); Mean Corpuscular Volume 90.4 fL (81.0-99.0); Mean Platelet Volume 9.9 fL (9.5-13.5); Platelet Count 371 10^3/uL (150-450); Red Blood Count 3.54 10^6/uL (4.20-5.40); Red Cell Distribution Width 16.1 % (11.0-15.0)
[2023-02-21] MEDS: OXYCODONE HCL 5 MG TABLET PO ×2 (05:04→12:32)
[2023-02-21 05:07] LABS: Alanine Aminotransferase 22 U/L (14-59); Albumin Globulin Ratio 0.8; Albumin Level 2.8 g/dL (3.4-5.0); Alkaline Phosphatase 127 U/L (46-116); Anion Gap 14.5; Aspartate Amino Transferase 24 U/L (15-37); BUN Creatinine Ratio 19.2; Bilirubin Total 0.2 mg/dL (0.2-1.0); Calcium 8.6 mg/dL (8.5-10.1); Carbon Dioxide 22.5 mmol/L (21.0-32.0); Chloride 110 mmol/L (98-107); Estimated GFR (African America >60 (>=60); Estimated GFR (Non-African Ame >60 (>=60); Globulin 3.5 g/dL; Glucose 142 mg/dL (74-106); Sodium 143 mmol/L (136-145); Total Protein 6.3 g/dL (6.4-8.2)
[2023-02-21] MEDS: VANCOMYCIN HCL 750 MG in 0.9 % SODIUM CHLORIDE 250 ML 250 MG IV (05:10)
[2023-02-21 05:55] LABS: White Blood Count 30.6 10^3/uL (4.0-11.0)
[2023-02-21 06:00] VITALS: BP 118/83; PULSE 69; PULSE 85; RESP 18; TEMP 36.4; O2SAT 94; O2SAT 95
[2023-02-21 06:03] LABS: Lymphocytes Absolute Manual 3.06 10^3/uL (1.20-3.80); Monocytes Absolute Manual 1.22 10^3/uL (0.30-0.80)
[2023-02-21] MEDS: PIPERACILLIN SODIUM/TAZOBACTAM 3.375 GM in 0.9 % SODIUM CHLORIDE 50 ML IV (07:13)
--- NOTE | 2023-02-21 07:34 | PM.PLCN ---
History of Present Illness History of Present Illness Requesting physician: Jacques Persaud Reason for consult: lung mass (Mediastinal mass) Chief complaint: Shortness of Breath MEDIASTINAL MASS HYPOXIA ACUTE Narrative: 57yo female presents with chest pain and dyspnea. CT chest 02/19/2023 discovered a mediastinal mass. Radiologist recommended MRI or endoscopic ultrasound (EUS). Pulmonary was consulted for an endobronchoscopic ultrasound (EBUS). Spoke with patient; she voiced she did not understand what is going on in her chest. I explained basic thoracic anatomy and the abnormality noted until she voiced understanding of the situation. Etiology of the mass is unknown, but there is high suspicion for neoplasm. Regarding radiology's recommendations, explained that an MRI is not able to be performed here. A special coil is required for mediastinal MRIs and none are available within quite a large radius from here. Regarding EUS, the consult was for an EBUS which is not the same as an EUS - Explained EUS is with an esophagoscopy (which I do not do EGDs) and EBUS is with a bronchoscopy (which we do not even have the correct scope to perform it here). Imaging does show some apparent extrinsic compression of the left main bronchus, but patient does have air movement in the DERECK and LLL regions. Explained to patient that the only thing I would be able to provide would be a screening bronchoscopy to evaluate if the narrowing of the left main bronchus is from extrinsic compression vs. intraluminal mass. She unfortunately took Brilinta last evening, so the risk of bleeding with a biopsy is increased. As this is not a medical emergency (in my opinion), the risks of bleeding outweigh the benefits of any endobronchial biopsies. The patient has decided to pass on a bronchoscopy on this time. EUS may be the best approach in this instance. I contacted [facility] gastroenterology, but they do not peform EUS. They refer their patients to either [facility] or [facility]. I informed BURTON Esteves from case management, Dr. Morfin, and BURTON Barber on the floor of my suggestions. Otherwise, I have nothing further I can offer this patient at the curent time. Review of Systems ROS Narrative Cough, wheeze, chest pain (radiates between shoulders). [facility] Medical History (Updated 02/20/23 @ 18:08 by Shaikh Shelbie MD) Surgical History (Updated 02/20/23 @ 18:08 by Shaikh Shelbie MD) Family History (Updated 02/19/23 @ 22:25 by Elisabeth Singer) Mother Family history of CHF (congestive heart failure) Family history of diabetes mellitus Family history of hypertension Family history of myocardial infarction Social History (Updated 02/19/23 @ 22:28 by Elisabeth Singer) Within the past year, how often did you have a drink containing alcohol: never Within the past year, how often did you have six or more drinks on one occasion: never Score interpretation: A score less than 3 is consistent with normal alcohol consumption. Smoking status: Current every day smoker Second hand tobacco smoke exposure: Yes Non-prescribed substance use: denies use Previous occupational history: Does not work Known occupational exposures/hazards: No Highest level of school completed/degree received: high school graduate Do you want help with school or training: No Are you now , , , , never or living with a partner: In a typical week, how many times do you talk on the telephone with family, friends, or neighbors: never How often do you get together with friends or relatives: never How often do you attend zoroastrian or scientologist services: never Do you belong to any clubs or organizations such as zoroastrian groups unions, fraternal or athletic groups, or school groups: no Total score: 1 Score interpretation: A score of less than or equal to 1 indicates the most socially isolated. Little interest or pleasure in doing things: several days Feeling down, depressed, or hopeless: several days Feel stressed/tense/nervous/anxious/difficulty sleeping: very much Life stressors: other Life stressor details: Due to disability, difficulty making decisions: No Do you think of yourself as: straight/heterosexual Gender Identity: female Meds Home Medications and Allergies Home Medications Medication Instructions Recorded Confirmed Type albuterol sulfate 90 mcg/actuation 2 inh inhalation Q4H PRN shortness 02/02/23 02/19/23 Rx breath activated powder inhaler of breath #1 ea aspirin 81 mg chewable tablet 81 mg PO DAILY 02/02/23 02/19/23 History atorvastatin 80 mg tablet 80 mg PO DAILY 02/02/23 02/19/23 History isosorbide mononitrate 30 mg 30 mg PO DAILY 02/02/23 02/19/23 History tablet,extended release 24 hr metoprolol succinate 50 mg 50 mg PO Q12H 02/02/23 02/19/23 History tablet,extended release 24 hr nitroglycerin 0.4 mg sublingual 0.4 mg sublingual Q5M PRN chest 02/02/23 02/19/23 History tablet pain ticagrelor 90 mg tablet (Brilinta) 90 mg PO Q12H 02/02/23 02/19/23 History Allergies Allergy/AdvReac Type Severity Reaction Status Date / Time No Known Drug Allergies Allergy Verified 02/02/23 10:08 Exam Constitutional Vital Signs - 24 hr 02/20/23 11:20 02/20/23 13:56 02/20/23 18:15 Temperature 98.3 F Pulse Rate 109 H Respiratory Rate 18 Blood Pressure [Right Arm] 113/61 Pulse Oximetry 97 93 L 94 L Oxygen Delivery Method Room Air Room Air Oxygen Delivery Flow Rate 2 02/20/23 20:00 02/20/23 22:00 02/20/23 21:11 Temperature 97.9 F Pulse Rate 97 H 88 91 H Respiratory Rate 18 Blood Pressure [Right Arm] 140/68 H Pulse Oximetry 95 95 92 L Oxygen Delivery Method Room Air Oxygen Delivery Flow Rate 02/20/23 22:06 02/20/23 22:44 02/20/23 22:44 Temperature Pulse Rate 90 94 H Respiratory Rate 18 Blood Pressure [Right Arm] Pulse Oximetry 91 L 94 L Oxygen Delivery Method Room Air Oxygen Delivery Flow Rate 02/20/23 23:45 02/21/23 01:11 02/21/23 03:06 Temperature Pulse Rate 96 H 93 H 78 Respiratory Rate Blood Pressure [Right Arm] Pulse Oximetry 91 L 92 L 93 L Oxygen Delivery Method Oxygen Delivery Flow Rate 02/21/23 04:22 02/21/23 04:50 02/21/23 06:00 Temperature Pulse Rate 77 78 85 Respiratory Rate 18 Blood Pressure [Right Arm] Pulse Oximetry 92 L 97 95 Oxygen Delivery Method Room Air Oxygen Delivery Flow Rate 02/21/23 06:00 Temperature 97.5 F L Pulse Rate 69 Respiratory Rate 18 Blood Pressure [Right Arm] 118/83 H Pulse Oximetry 94 L Oxygen Delivery Method Room Air Oxygen Delivery Flow Rate Documenting provider has reviewed patient's vital signs: yes Common normals: no apparent distress Exam limitations: altered mental status General appearance: cooperative HENMT Common normals: normocephalic Chest Common normals: inspection of chest normal Respiratory Other: Coarse breath sounds and wheezing bilaterally, more on left than right. Cardio Rate: regular rate Rhythm: regular rhythm GI Inspection: normal to inspection Extremity Common normals: no clubbing, cyanosis or edema Neuro Common normals: oriented x3 Psych Common normals: mental status grossly normal Results Laboratory Findings ABG, PT/INR, D-dimer: PT/INR, D-dimer PT 10.3 sec (9.0-11.6) 02/19/23 18:25 INR 0.97 02/19/23 18:25 Abnormal lab findings: Abnormal Labs 02/19/23 02/19/23 02/20/23 18:25 23:00 04:05 WBC 16.3 H RBC Hgb Hct RDW 15.6 H Eos % (Auto) 0.7 L Neut # (Auto) 9.5 H Lymph # (Auto) 5.3 H [place] # (Auto) 1.3 H Abs Immat Gran (auto) 0.06 H Lymphocytes % (Manual) Eosinophils % (Manual) Basophils % (Manual) Neutrophils # (Manual) Monocytes # (Manual) Chloride Carbon Dioxide 20.2 L 19.0 L Creatinine 1.14 H Est GFR (Non-Af Amer) 49 L Glucose 117 H 208 H Lactate 3.0 H* Alkaline Phosphatase 170 H 152 H Total Protein Albumin 3.1 L 02/21/23 04:10 WBC 30.6 H* RBC 3.54 L Hgb 10.7 L Hct 32.0 L RDW 16.1 H Eos % (Auto) Neut # (Auto) Lymph # (Auto) [place] # (Auto) Abs Immat Gran (auto) Lymphocytes % (Manual) 10.0 L Eosinophils % (Manual) 0.0 L Basophils % (Manual) 0.0 L Neutrophils # (Manual) 25.70 H Monocytes # (Manual) 1.22 H Chloride 110 H Carbon Dioxide Creatinine Est GFR (Non-Af Amer) Glucose 142 H Lactate Alkaline Phosphatase 127 H Total Protein 6.3 L Albumin 2.8 L Assessment and Plan Assessment and Plan (1) Mediastinal mass: Plan 1. Mediastinal mass. Measuring 3.0 x 1.9 x 2.2cm with apparent extrinsic compression. Etiology unclear, but clinical suspicion is malignancy. [facility] does not have the diagnostic tools nor the specialists equipped for biopsy. Recommend referral outpatient for EUS. See HPI for further details. 2. Chest pain. Non-cardiac. Associated with mass. Will need to manage pain control for the time being. 3. Coronary artery disease. s/p MO 11/2021, on ASA/Brilinta. 4. Tobacco abuse. Discussed smoking cessation with patient.
[2023-02-21] MEDS: METHYLPREDNISOLONE SOD SUCC PF 40 MG/ML VIAL IVP (08:16)
[2023-02-21] MEDS: ISOSORBIDE MONONITRATE 30 MG TAB.ER.24H PO (08:17)
[2023-02-21] MEDS: METOPROLOL SUCCINATE 50 MG TAB.ER.24H PO (08:17)
[2023-02-21] MEDS: OMEPRAZOLE 40 MG CAPSULE.DR PO (08:20)
[2023-02-21] MEDS: ATORVASTATIN CALCIUM 40 MG TABLET 80 MG PO (08:20)
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
--- NOTE | 2023-02-21 11:54 | CM.NOTE ---
Rounds made with Dr. Morfin, explained to pt about discharge and need for follow-up to schedule for EUS or desired procedure to biopsy mass. Dr. Morfin explained to pt that her primary doctor would refer her to have procedure scheduled. If she were to have problems getting things scheduled, pt can call Dr. Morfin's office and he will assist pt. Pt will be given Dr. Morfin's office number.
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
--- NOTE | 2023-02-21 12:18 | P.DS_ITS ---
DS: Providers Provider Date of admission: 02/19/23 21:23 Primary care physician: JON STEWART Consults: 02/19/23 19:53 Consult to Pulmonology Routine Consulting Provider: Radames Nair 02/19/23 23:12 Consult to Pulmonology Routine Consulting Provider: Radames Nair Attending physician on discharge: Shaikh Shelbie Discharging clinician: Shaikh Shelbie Anticipated date of discharge: 02/21/23 DS: Diagnosis Discharge Diagnosis (1) Mediastinal mass: Assessment and plan: Mediastinal mass- highly suspicious for neoplasm. Patient evaluated by Pulmonology. Specific approach to biopsy is still not quite clear but some options included are EUS or mediastinoscopy. EBUS not a viable options based on location as per Pulm There is mild extrinsic compression of her left bronchus but not significant to warrant urgent bronchoscopic eval or intervention. Patient to f/u with PCP (2) Acute respiratory failure with hypoxemia: Assessment and plan: Back on RA. Likely from mediastinal mass causing intrinsic compression along with COPD exacerbation. (3) CAD (coronary artery disease): Assessment and plan: s/p PCI 12/18. On ASA, brlinta, statin. C/w same Qualifiers: Coronary Disease-Associated Artery/Lesion type: [place] artery [place] vs. transplanted heart: [place] heart Associated angina: without angina Qualified Code(s): I25.10 - Atherosclerotic heart disease of [place] coronary artery without angina pectoris (4) Chest pain: Assessment and plan: Pleuritic, persistent from COPD exacerbation and mediastinal mass. Improved quite a lot today and not nearly as uncomfortable as she was yesterday. Will d/c on Oral Oxycodone for pain control and patient to f/u with PCP for continued care. (5) Acute exacerbation of chronic obstructive pulmonary disease: Assessment and plan: Improved air entry and now has minimal exp wheezing. Will d/c on oral prednisone and ventolin as needed. (6) Leukocytosis: Assessment and plan: Worsened from before - likely due to steroids. There are no definite infiltrates and appearance of mediastinal mass is more concerning for neoplasm. Will empirically treat with oral Levaquin but does not appear to have an ongoing/active infection going on, based on my clinical impression (7) HTN (hypertension): Assessment and plan: c/w home meds. Defer to PCP (8) Hyperlipemia: Assessment and plan: C/w statin (9) Tobacco abuse: Assessment and plan: Discussed smoking cessation with patient. Interested in quitting. She will d/w PCP about possible interventions she might need/get help from DS: Summary Hospital Course Hospital Course: 57 y o female presents with midsternal pleuritic chest pain with radiation to her back, ongoing for a few months now but more recently, worse in severity, and more or less persistent. She also has associated chronic cough and SOB. She was recently discharged from ED on Z-pack and PO steroids for COPD exacerbation but her symptoms had gotten really worse over past one week. Patient was admitted for acute resp failure with hypoxia, COPD exacerbation and mediastinal mass vs infectious abscess for which she received currently on broad spectrum abx (Vancoymcin/Zosyn), systemic steroids and inhaled bronchodilators. Initially, we attempted to [facility] but [facility] at [facility] recommended outpatient f/u. She was seen by Dr Nair who explained and discussed with her, different options/approaches to get her mediastinal mass biopsied. Patient will also be seen by [facility] inpatient who will try to arrange her diagnostic w/u and assist with formulating a plan that works for her to avoid delays. Will d/c patient on oral prednisone, Levaquin and Oxycodone for pain control. Patient to f/u with PCP in one week and Hemonc too in 1-2 weeks Time spent discussing smoking cessation with patient: more than 10 minutes Status at Discharge Functional status at discharge: independent ambulation Overall status at discharge: patient is back to baseline Time Spent with Patient Time attestation: Total time spent providing and/or coordinating discharge services: Time spent: greater than 30 minutes Exam Constitutional Vital Signs - 24 hr 02/20/23 13:56 02/20/23 18:15 02/20/23 20:00 Temperature 98.3 F Pulse Rate 109 H 97 H Respiratory Rate 18 Blood Pressure [Right Arm] 113/61 Pulse Oximetry 93 L 94 L 95 Oxygen Delivery Method Room Air Oxygen Delivery Flow Rate 2 02/20/23 22:00 02/20/23 21:11 02/20/23 22:06 Temperature 97.9 F Pulse Rate 88 91 H 90 Respiratory Rate 18 Blood Pressure [Right Arm] 140/68 H Pulse Oximetry 95 92 L 91 L Oxygen Delivery Method Room Air Oxygen Delivery Flow Rate 02/20/23 22:44 02/20/23 22:44 02/20/23 23:45 Temperature Pulse Rate 94 H 96 H Respiratory Rate 18 Blood Pressure [Right Arm] Pulse Oximetry 94 L 91 L Oxygen Delivery Method Room Air Oxygen Delivery Flow Rate 02/21/23 01:11 02/21/23 03:06 02/21/23 04:22 Temperature Pulse Rate 93 H 78 77 Respiratory Rate Blood Pressure [Right Arm] Pulse Oximetry 92 L 93 L 92 L Oxygen Delivery Method Oxygen Delivery Flow Rate 02/21/23 04:50 02/21/23 06:00 02/21/23 06:00 Temperature 97.5 F L Pulse Rate 78 85 69 Respiratory Rate 18 18 Blood Pressure [Right Arm] 118/83 H Pulse Oximetry 97 95 94 L Oxygen Delivery Method Room Air Room Air Oxygen Delivery Flow Rate Documenting provider has reviewed patient's vital signs: yes Nutritional appearance: obese Orientation/consciousness: Yes awake, Yes oriented to person, Yes oriented to place and Yes oriented to time HENMT Common normals: normocephalic and head/scalp atraumatic Eye Common normals: conjunctivae normal and no scleral icterus Chest Common normals: inspection of chest normal and palpation of chest normal Respiratory Common normals: normal respiratory effort and no use of accessory muscles Effort & inspection: able to speak in complete sentences Auscultation: wheezes expiratory wheezes and scattered wheezes Cardio Common normals: regular rate, S1 normal heart sound, S2 normal heart sound and no murmurs GI Common normals: Normal to inspection, nondistended, normoactive bowel sounds present, soft to palpation, non-tender and no hepatosplenomegaly Extremity Common normals: normal to inspection and full ROM Neuro Common normals: oriented x3, moves all extremities, no focal motor deficits and no sensory deficits noted Psych Common normals: thought process normal, cooperative, denies homicidal ideation and denies suicidal ideation DS: Data Data Completed and Pending Labs on day of discharge: Labs from last 24 hours 02/21/23 02/19/23 04:10 20:42 WBC 30.6 H* RBC 3.54 L Hgb 10.7 L Hct 32.0 L MCV 90.4 MCH 30.2 MCHC 33.4 RDW 16.1 H Plt Count 371 MPV 9.9 Seg Neuts % (Manual) 84.0 Lymphocytes % (Manual) 10.0 L Atypical Lymphs % (Man) 2.0 Monocytes % (Manual) 4.0 Eosinophils % (Manual) 0.0 L Basophils % (Manual) 0.0 L Neutrophils # (Manual) 25.70 H Lymphocytes # (Manual) 3.06 Monocytes # (Manual) 1.22 H Eosinophils # (Manual) 0.00 Basophils # (Manual) 0.00 Sodium 143 Potassium 4.0 Chloride 110 H Carbon Dioxide 22.5 Anion Gap 14.5 BUN 14.0 Creatinine 0.73 Est GFR ( Amer) >60 Est GFR (Non-Af Amer) >60 BUN/Creatinine Ratio 19.2 Glucose 142 H Calcium 8.6 Total Bilirubin 0.2 AST 24 ALT 22 Alkaline Phosphatase 127 H Total Protein 6.3 L Albumin 2.8 L Globulin 3.5 Albumin/Globulin Ratio 0.8 SARS-CoV-2 RNA (NEVA) Not detected Discharge Plan Discharge Disposition: Home, Self-Care Condition: Good Discharge Medications: New prednisone 20 mg tablet 20 mg PO BID 5 Days Qty: 10 0RF albuterol sulfate [Ventolin HFA] 90 mcg/actuation HFA aerosol inhaler 2 inh inhalation Q6H PRN (Reason: shortness of breath or wheezing) Qty: 6.7 0RF levofloxacin 750 mg tablet 750 mg PO DAILY 5 Days Qty: 5 0RF Continued aspirin 81 mg tablet,chewable 81 mg PO DAILY atorvastatin 80 mg tablet 80 mg PO DAILY isosorbide mononitrate 30 mg tablet extended release 24 hr 30 mg PO DAILY metoprolol succinate 50 mg tablet extended release 24 hr 50 mg PO Q12H nitroglycerin 0.4 mg tablet, sublingual 0.4 mg sublingual Q5M PRN (Reason: chest pain) Brilinta 90 mg tablet 90 mg PO Q12H albuterol sulfate 90 mcg/actuation aerosol powdr breath activated 2 inh inhalation Q4H PRN (Reason: shortness of breath) Qty: 1 0RF Activity: resume usual activities as tolerated Diet: regular diet Forms: Portal Instructions Follow Up Appointments: F/u with PCP in one week F/u with Dr Rodriguez in 1-2 weeks
[2023-02-21] MEDS: ASPIRIN 81 MG TAB.CHEW PO (12:34)
[2023-02-21] MEDS: TICAGRELOR 90 MG TABLET PO (12:35)
[2023-02-21] MEDS: BUDESONIDE 0.5 MG/2 ML AMPULE NEB IH (13:17)
[2023-02-21 13:18] VITALS: O2SAT 95
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
--- NOTE | 2023-02-21 17:31 | P.CN_ITS ---
Consult Note: HPI Data of Consult Requesting Physician: Shaikh Shelbie MD Primary Care Provider: JON STEWART Consult Narrative Reason for consult: mediastinal mass, concern for malignancy Narrative: Chief complaint: Shortness of Breath MEDIASTINAL MASS HYPOXIA ACUTE Narrative: 57 y o female presents with midsternal pleuritic chest pain with radiation to her back, ongoing for a few months now but more recently, worse in severity, and more or less persistent. She also has associated chronic cough and SOB. She was recently discharged from ED on Z-pack and PO steroids for COPD exacerbation but her symptoms have gotten really worse over past one week. She is very uncomfortable, has persistent Dyspnea even at rest and currently on 2 L O2 via NC. Patient admitted overnight for acute resp failure with hypoxia, COPD exacerbation and mediastinal mass vs infectious abscess for which she is currently on broad spectrum abx (Vancoymcin/Zosyn), systemic steroids and inhaled bronchodilators. Patient's is current smoker and smokes a pack a day. Her biggest complaints is persistent pleuritic chest pain. Denies fever, chills, nausea, vomiting, abdominal pain. Does not have a formal diagnosis of COPD and uses rescue inhaler as needed. She was started on Imdur for her symptoms with an underlying assumption that her symptoms and chest pain were from esophageal spasm. She had work-up as noted below: CT chest 02/19/2023 discovered a mediastinal mass.? Radiologist recommended MRI or endoscopic ultrasound (EUS).? Pulmonary was consulted for an endobronchosco pic ultrasound (EBUS). Per Dr Nair: Etiology of the mass is unknown, but there is high suspicion for neoplasm.?Explained to patient that the only thing he would be able to provide would be a screening bronchoscopy to evaluate if the narrowing of the left main bronchus is from extrinsic compression vs. intraluminal mass.? She unfortunately took Brilinta last evening, so the risk of bleeding with a biopsy is increased.? He felt that the risks of bleeding outweigh the benefits of any endobronchial biopsies. The patient has decided to pass on a bronchoscopy on this time. He contacted [facility] gastroenterology, but they do not peform EUS. They refer their patients to either [facility] or [facility].? We were consulted from Oncology to discuss opinions for tissue sampling. I discussed her imaging with Dr Shetty from radiology. She has a mass adjacent / abutting the superior margin of the left mainstem bronchus, anterior margin of the aorta and anterior esophagus measuring 3.0 x 1.9 x 2.2 cm. Overall, the mass in the left mediastinum abuts and narrows the left mainstem bronchus. I discussed case with [facility], Dr Christian. He would be able to perform EBUS on Monday (02/24) or Monday (02/27). If needed, he could also consult Dr Ana Maria Poole from GI for EUS. I will go ahead and place referral to [facility] as she is open to these options for tissue sampling. ECOG PS 1-2. cc:: CC: Shaikh Shelbie MD Review of Systems ROS Narrative 10 or more systems reviewed and unremarkable except as noted in history and below ? PFSH PFSH Medical History Surgical History Family History Mother Family history of CHF (congestive heart failure) Family history of diabetes mellitus Family history of hypertension Family history of myocardial infarction Social History Within the past year, how often did you have a drink containing alcohol: never Within the past year, how often did you have six or more drinks on one occasion: never Score interpretation: A score less than 3 is consistent with normal alcohol consumption. Smoking status: Current every day smoker Second hand tobacco smoke exposure: Yes Non-prescribed substance use: denies use Previous occupational history: Does not work Known occupational exposures/hazards: No Highest level of school completed/degree received: high school graduate Do you want help with school or training: No Are you now , , , , never or living with a partner: In a typical week, how many times do you talk on the telephone with family, friends, or neighbors: never How often do you get together with friends or relatives: never How often do you attend scientologist or episcopalian services: never Do you belong to any clubs or organizations such as scientologist groups unions, fraternal or athletic groups, or school groups: no Total score: 1 Score interpretation: A score of less than or equal to 1 indicates the most socially isolated. Little interest or pleasure in doing things: several days Feeling down, depressed, or hopeless: several days Feel stressed/tense/nervous/anxious/difficulty sleeping: very much Life stressors: other Life stressor details: Due to disability, difficulty making decisions: No Do you think of yourself as: straight/heterosexual Gender Identity: female Meds Home Medications and Allergies Home Medications Medication Instructions Recorded Confirmed Type albuterol sulfate 90 mcg/actuation 2 inh inhalation Q4H PRN shortness 02/02/23 02/19/23 Rx breath activated powder inhaler of breath #1 ea aspirin 81 mg chewable tablet 81 mg PO DAILY 02/02/23 02/19/23 History atorvastatin 80 mg tablet 80 mg PO DAILY 02/02/23 02/19/23 History isosorbide mononitrate 30 mg 30 mg PO DAILY 02/02/23 02/19/23 History tablet,extended release 24 hr metoprolol succinate 50 mg 50 mg PO Q12H 02/02/23 02/19/23 History tablet,extended release 24 hr nitroglycerin 0.4 mg sublingual 0.4 mg sublingual Q5M PRN chest 02/02/23 02/19/23 History tablet pain ticagrelor 90 mg tablet (Brilinta) 90 mg PO Q12H 02/02/23 02/19/23 History albuterol sulfate 90 mcg/actuation 2 inh inhalation Q6H PRN shortness 02/21/23 Rx aerosol inhaler (Ventolin HFA) of breath or wheezing #6.7 grams levofloxacin 750 mg tablet 750 mg PO DAILY 5 days #5 tabs 02/21/23 Rx prednisone 20 mg tablet 20 mg PO BID 5 days #10 tabs 02/21/23 Rx Allergies Allergy/AdvReac Type Severity Reaction Status Date / Time No Known Drug Allergies Allergy Verified 02/02/23 10:08 Exam Narrative Exam Narrative: Documenting provider has reviewed patient's vital signs: yes General appearance: in distress Nutritional appearance: obese Orientation/consciousness: Yes awake, Yes oriented to person, Yes oriented to place and Yes oriented to time HENMT Common normals: normocephalic and head/scalp atraumatic Eye Common normals: conjunctivae normal and no scleral icterus Chest Common normals: inspection of chest normal and palpation of chest normal Respiratory Effort & inspection: able to speak in complete sentences and tachypneic Auscultation: wheezes Cardio Common normals: regular rate, S1 normal heart sound, S2 normal heart sound and no murmurs GI Common normals: Normal to inspection, nondistended, normoactive bowel sounds present, soft to palpation, non-tender and no hepatosplenomegaly Extremity Common normals: normal to inspection and full ROM Neuro Common normals: oriented x3, moves all extremities, no focal motor deficits and no sensory deficits noted Psych Common normals: thought process normal, cooperative, denies homicidal ideation and denies suicidal ideation Constitutional Vital Signs - 24 hr 02/20/23 18:15 02/20/23 20:00 02/20/23 22:00 Temperature 97.9 F Pulse Rate 97 H 88 Respiratory Rate 18 Blood Pressure [Right Arm] 140/68 H Pulse Oximetry 94 L 95 95 Oxygen Delivery Method Room Air 02/20/23 21:11 02/20/23 22:06 02/20/23 22:44 Temperature Pulse Rate 91 H 90 Respiratory Rate Blood Pressure [Right Arm] Pulse Oximetry 92 L 91 L 94 L Oxygen Delivery Method Room Air 02/20/23 22:44 02/20/23 23:45 02/21/23 01:11 Temperature Pulse Rate 94 H 96 H 93 H Respiratory Rate 18 Blood Pressure [Right Arm] Pulse Oximetry 91 L 92 L Oxygen Delivery Method 02/21/23 03:06 02/21/23 04:22 02/21/23 04:50 Temperature Pulse Rate 78 77 78 Respiratory Rate 18 Blood Pressure [Right Arm] Pulse Oximetry 93 L 92 L 97 Oxygen Delivery Method Room Air 02/21/23 06:00 02/21/23 06:00 02/21/23 13:18 Temperature 97.5 F L Pulse Rate 85 69 Respiratory Rate 18 Blood Pressure [Right Arm] 118/83 H Pulse Oximetry 95 94 L 95 Oxygen Delivery Method Room Air Room Air Results Labs Labs: Short CBC 02/21/23 Range/Units 04:10 WBC 30.6 H* (4.0-11.0) 10^3/uL Hgb 10.7 L (12.0-16.0) g/dL Hct 32.0 L (36.0-48.0) % Plt Count 371 (150-450) 10^3/uL BMP 02/21/23 04:10 Sodium 143 Potassium 4.0 Chloride 110 H Carbon Dioxide 22.5 BUN 14.0 Creatinine 0.73 Glucose 142 H Calcium 8.6 Liver Function 02/21/23 Range/Units 04:10 Total Bilirubin 0.2 (0.2-1.0) mg/dL AST 24 (15-37) U/L ALT 22 (14-59) U/L Alkaline Phosphatase 127 H (46-116) U/L Albumin 2.8 L (3.4-5.0) g/dL Imaging CT scan - chest: My impression: I discussed her imaging with Dr Shetty from radiology. She has a mass adjacent / abutting the superior margin of the left mainstem bronchus, anterior margin of the aorta and anterior esophagus measuring 3.0 x 1.9 x 2.2 cm. Overall, the mass in the left mediastinum abuts and narrows the left mainstem bronchus. Assessment and Plan Assessment and Plan (1) Mediastinal mass: (2) Acute respiratory failure with hypoxemia: (3) CAD (coronary artery disease): Qualifiers: Associated angina: without angina Coronary Disease-Associated Artery/Lesion type: [place] artery [place] vs. transplanted heart: [place] heart Qualified Code(s): I25.10 - Atherosclerotic heart disease of [place] coronary a rtery without angina pectoris (4) Chest pain: (5) Acute exacerbation of chronic obstructive pulmonary disease: (6) Leukocytosis: (7) HTN (hypertension): (8) Hyperlipemia: (9) Tobacco abuse: Plan Impression: 1. Mediastinal mass. Measuring 3.0 x 1.9 x 2.2cm with apparent extrinsic compression. Etiology unclear, but clinical suspicion is malignancy. [facility] does not have the tools / specialists for tissue sampling this area. She will be discharged today. I discussed options as an outpatient. Tissue sampling can be attempted via EBUS or via EUS. I discussed case with [facility]. Dr Christian would be able to perform EBUS. If needed, he could also consult Dr Ana Maria Poole from GI for EUS. I will place outpt referrals such that patient can coordinate with [facility] if she would like. 2. Chest pain. Non-cardiac. Associated with mass. Will need to manage pain control for the time being. 3. Coronary artery disease. s/p OK 11/2021, on ASA/Brilinta. May need to hold anti-platelet therapy for any biopsies. 4. Tobacco abuse. Discussed smoking cessation with patient. Thank you for the consult. Archana Rodriguez MD Hematology Oncology
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
== END 2023-02-21 16:23 | disposition home or self-care (01) | DRG 143 ==
LOC: ER 19:59 → MS 21:28
PROVIDERS: Personal Emergency Response Attendant; Admitting Provider Internal Medicine; Emergency Provider Emergency Medicine; PCP Family Medicine; Visit Provider Internal Medicine
DX: D38.3 Neoplasm of uncertain behavior of mediastinum (principal); J43.9 Emphysema, unspecified; I10 Essential (primary) hypertension; F17.210 Nicotine dependence, cigarettes, uncomplicated; E78.5 Hyperlipidemia, unspecified; I25.10 Atherosclerotic heart disease of native coronary artery without angina pectoris; J96.01 Acute respiratory failure with hypoxia; R07.81 Pleurodynia; D72.829 Elevated white blood cell count, unspecified; T38.0X5A Adverse effect of glucocorticoids and synthetic analogues, initial encounter; Z83.3 Family history of diabetes mellitus; Z82.49 Family history of ischemic heart disease and other diseases of the circulatory system; Z79.82 Long term (current) use of aspirin; Z79.02 Long term (current) use of antithrombotics/antiplatelets; Z79.899 Other long term (current) drug therapy; Z53.8 Procedure and treatment not carried out for other reasons; Z95.5 Presence of coronary angioplasty implant and graft; Z20.822 Contact with and (suspected) exposure to COVID-19
CPT/HCPCS: 36415; 71275; 80053; 80202; 83605; 84484; 85007; 85025; 85610; 85730; 87040; 87635; 87811; 93005; 94640; 94761; 96365; 96366; 96367; 96368; 96372; 96375; 96376; 99285; J2920; J2930; J3370; Q3014; Q9967

== ENCOUNTER 2023-03-07 07:33 | Outpatient (OUT) | payer OTHER, SELFPAY | END 2023-03-07 07:34 | disposition home or self-care (01) | LOC: INF 07:34 | PROVIDERS: PCP Family Medicine; Visit Provider Internal Medicine Hematology & Oncology | DX: C34.92 Malignant neoplasm of unspecified part of left bronchus or lung (principal); J44.9 Chronic obstructive pulmonary disease, unspecified; E11.9 Type 2 diabetes mellitus without complications; I11.0 Hypertensive heart disease with heart failure; I50.9 Heart failure, unspecified; D64.9 Anemia, unspecified; D72.829 Elevated white blood cell count, unspecified; F17.210 Nicotine dependence, cigarettes, uncomplicated; I25.2 Old myocardial infarction | CPT/HCPCS: G0463 ==

== ENCOUNTER 2023-03-14 12:25 | Day surgery (SDC) | payer OTHER, SELFPAY ==
[2023-03-14 12:54] VITALS: BMI 27.7
[2023-03-14] MEDS: LACTATED RINGER'S SOLUTION 1,000 ML 50 ML IV (13:03)
[2023-03-14] MEDS: LIDOCAINE HCL 1%-EPINEPHRINE 1:100,000 10 ML MDV INJ (15:30)
[2023-03-14] MEDS: HEPARIN SODIUM (PORCINE) PF LOCK FLUSH 500 UNIT/5 ML SYRINGE INJ (15:54)
--- NOTE | 2023-03-14 16:05 | XR_ITS ---
The [address] [address] Patient Name: JEANMARIE ECHEVARRIA MRN: [id number] date: 1965 Sex: F Assigned Patient Location: [facility] Current Patient Location: [facility] Accession/Order Number: [id number] Exam Date: 03/14/2023 16:20 Report Date: 03/14/2023 16:43 At the request of: DANIAL KING Procedure: XR chest 1V EXAM: XR chest 1V HISTORY: Port placement. COMPARISON: 02/02/2023. TECHNIQUE: AP erect portable chest radiograph performed. FINDINGS: New right jugular central venous Mediport with the distal tip extending into the superior vena cava. There is no pneumothorax. The trachea is midline. The heart size is normal. There is stable mild atheromatous calcification at the aortic arch. The hilar shadows are unremarkable. The lung fletcher are clear. The bony structures appear osteopenic. There is otherwise no acute osseous abnormality. XR/XR chest 1V IMPRESSION: New right jugular central venous Mediport with the distal tip extending into the superior vena cava. There is no pneumothorax. Electronically authenticated by: DALLIN RODRIGUEZ Date: 03/14/2023 16:43
--- NOTE | 2023-03-14 16:17 | PM.GSPRC ---
Date of procedure: 03/14/23 Indications for Procedure: This patient is a 57-year-old female who was recently diagnosed with carcinoma of the lung. She has been recommended to undergo chemotherapy per medical oncology and therefore port placement was requested. The risks benefits options and potential complications of the procedure were discussed in detail with her and she agreed to proceed and consent was signed. Pre-op diagnosis: lung CA Post-op diagnosis: same Procedure: port placement with fluoroscopy Anesthesia: MAC and local Surgeon: Morales Esteves Procedure Summary: The patient was brought to the operating room and placed in the supine position. Under MAC the chest and neck was prepped and draped in usual sterile fashion. Patient had received IV antibiotics preoperatively. The patient was then placed in Trendelenburg position. The right lateral infraclavicular region was infiltrated with one percent lidocaine with epinephrine. The right subclavian vein was then accessed without difficulty. the guidewire there was unable to be passed into the vena cava. Therefore attention was paid to the right neck. Following local anesthesia of the right internal jugular vein was accessed without difficulty. The guidewire was placed through the access needle and advanced into the superior vena cava under fluoroscopic guidance. Needle was withdrawn. A site on the right chest was then infiltrated with local anesthesia. A transverse incision was made sharply. The subcutaneous pocket for the port reservoir wasn't treated with electrocautery and blunt dissection. The port reservoir was then placed into this pocket and sutured to the underlying tissue with 3-0 Vicryl. Small incision was then made at the wire exit site. Using the tunneling device the catheter was brought from the chest incision out through the wire exit site. The catheter was then cut to appropriate length. The dilator and tear-away sheath were then placed over the guidewire advanced without difficulty. The guidewire was removed. The dilator was then also removed with the catheter placed within the sheath this sheath was gradually withdrawn with the catheter maintaining proper position. The port was then accessed and good blood return was noted. Fluoroscopy showed the catheter to be in good position. The port was then flushed with heparinized saline. The chest incision was then closed with interrupted subcutaneous sutures of 3-0 Vicryl and the skin was closed with subcuticular sutures of 4-0 Vicryl. The small incision at the wire exit site was also closed with 4-0 Vicryl. Sterile dressings were applied. The patient tolerated the procedure well and was transferred to the recovery area in stable condition where a chest x-ray will be obtained. Estimated blood loss (mL): 3 Specimens: none Complications: No
[2023-03-14 16:23] VITALS: BP 122/76; PULSE 62; RESP 16; TEMP 36.4; O2SAT 96
== END 2023-03-14 16:57 | disposition home or self-care (01) ==
PROVIDERS: PCP Family Medicine; Visit Provider Surgery
PROC: (CPT 532; principal; 2023-03-14 14:05)
DX: C34.90 Malignant neoplasm of unspecified part of unspecified bronchus or lung (principal); J44.9 Chronic obstructive pulmonary disease, unspecified; Z95.5 Presence of coronary angioplasty implant and graft; Z90.710 Acquired absence of both cervix and uterus; F17.210 Nicotine dependence, cigarettes, uncomplicated
CPT/HCPCS: 36561; 71045; 76000; C1778; J2704

== ENCOUNTER 2023-03-16 14:30 | Outpatient (OUT) | payer OTHER, SELFPAY | END 2023-03-16 14:31 | disposition home or self-care (01) | PROVIDERS: PCP Family Medicine; Visit Provider Internal Medicine Hematology & Oncology | DX: C34.92 Malignant neoplasm of unspecified part of left bronchus or lung (principal); D64.9 Anemia, unspecified; R11.2 Nausea with vomiting, unspecified; D72.829 Elevated white blood cell count, unspecified | CPT/HCPCS: 99211 ==

== ENCOUNTER 2023-03-21 10:30 | Outpatient (OUT) | payer OTHER, SELFPAY ==
[2023-03-21 13:09] LABS: Hematocrit 36.5 % (36.0-48.0); Mean Corpuscular HGB Conc 32.9 g/dL (29.9-35.2); Mean Corpuscular Hemoglobin 29.9 pg (26.7-34.0); Mean Corpuscular Volume 90.8 fL (81.0-99.0); Mean Platelet Volume 10.6 fL (9.5-13.5); Platelet Count 411 10^3/uL (150-450); Red Blood Count 4.02 10^6/uL (4.20-5.40); Red Cell Distribution Width 15.8 % (11.0-15.0); White Blood Count 15.7 10^3/uL (4.0-11.0)
[2023-03-21 13:21] LABS: Alanine Aminotransferase 23 U/L (14-59); Albumin Globulin Ratio 0.7; Albumin Level 3.1 g/dL (3.4-5.0); Alkaline Phosphatase 154 U/L (46-116); Anion Gap 14.5; Aspartate Amino Transferase 16 U/L (15-37); BUN Creatinine Ratio 18.3; Bilirubin Total 0.3 mg/dL (0.2-1.0); Calcium 9.1 mg/dL (8.5-10.1); Carbon Dioxide 27.3 mmol/L (21.0-32.0); Chloride 105 mmol/L (98-107); Estimated GFR (African America >60 (>=60); Estimated GFR (Non-African Ame >60 (>=60); Globulin 4.3 g/dL; Glucose 99 mg/dL (74-106); Potassium 3.8 mmol/L (3.5-5.1); Sodium 143 mmol/L (136-145); Total Protein 7.4 g/dL (6.4-8.2)
[2023-03-21 13:35] LABS: Basophils Abs Manual 0.15 10^3/uL (0.00-0.10); Lymphocytes Absolute Manual 4.71 10^3/uL (1.20-3.80); Monocytes Absolute Manual 1.72 10^3/uL (0.30-0.80)
[2023-03-21 13:36] LABS: Anisocytosis 1+
[2023-03-22 05:12] LABS: HBsAg Screen Negative (Negative); Hep B Core Ab, Tot Negative (Negative); Hep B Surface Ab Non Reactive (.)
== END 2023-03-21 10:31 | disposition home or self-care (01) ==
LOC: HEMC 03-24 11:24
PROVIDERS: PCP Family Medicine; Visit Provider Internal Medicine Hematology & Oncology
DX: C34.92 Malignant neoplasm of unspecified part of left bronchus or lung (principal); D64.9 Anemia, unspecified; R11.2 Nausea with vomiting, unspecified; D72.829 Elevated white blood cell count, unspecified
CPT/HCPCS: 36415; 80053; 83735; 85007; 85025; 86704; 86706; 87340

== ENCOUNTER 2023-03-22 12:46 | Outpatient (OUT) | payer OTHER, SELFPAY ==
[2023-03-21] MEDS: HEPARIN SODIUM (PORCINE) PF LOCK FLUSH 500 UNIT/5 ML SYRINGE IV (12:09)
== END 2023-03-22 12:47 | disposition home or self-care (01) ==
LOC: INF 12:46
PROVIDERS: PCP Family Medicine; Visit Provider Internal Medicine Hematology & Oncology
DX: C34.92 Malignant neoplasm of unspecified part of left bronchus or lung (principal); D72.829 Elevated white blood cell count, unspecified; D64.9 Anemia, unspecified; R11.2 Nausea with vomiting, unspecified
CPT/HCPCS: 36415; 36591; 80053; 83735; 85007; 85025; 86704; 86706; 87340; G0463

== ENCOUNTER 2023-03-23 10:18 | Outpatient (OUT) | payer OTHER, SELFPAY ==
--- NOTE | 2023-03-23 10:45 | MR_ITS ---
The [address] [address] Patient Name: JEANMARIE ECHEVARRIA MRN: [id number] date: 1965 Sex: F Assigned Patient Location: MRI Current Patient Location: MRI Accession/Order Number: [id number] Exam Date: 03/23/2023 10:45 Report Date: 03/23/2023 12:32 At the request of: BROCK RODNEY Procedure: MR head/brain wo/w con EXAM: MR head/brain wo/w con HISTORY: Lung Cancer COMPARISON: None. TECHNIQUE: [Axial sagittal T1, axial T2, axial FLAIR, axial GRE, axial, sagittal, coronal T1 candie. 15 cc Dotarem FINDINGS: There is no diffusion abnormality. Very mild T2 hyperintensity in the central white matter. There is no cortical abnormality. The vascular flow voids are patent. Postcontrast, there is no abnormal enhancement. The dural sinuses are patent. The internal auditory canals appear unremarkable. Small amount of fluid the right mastoid air cells. Mild ethmoid sinus mucosal disease. Tiny benign-appearing nasopharyngeal cysts. The orbits, sella, craniocervical junction are unremarkable. MR/MR head/brain wo/w con IMPRESSION: No MRI evidence for acute ischemia. Few scattered areas of T2 hyperintensity in the central white matter. Most likely sequela small of vessel ischemic change, migraines, or other demyelinating process. Electronically authenticated by: AMERICA LAZO Date: 03/23/2023 12:32
== END 2023-03-23 10:19 | disposition home or self-care (01) ==
LOC: MRI 10:19
PROVIDERS: PCP Family Medicine; Visit Provider Internal Medicine Hematology & Oncology
DX: C34.90 Malignant neoplasm of unspecified part of unspecified bronchus or lung (principal); D72.829 Elevated white blood cell count, unspecified; D64.9 Anemia, unspecified; G93.9 Disorder of brain, unspecified
CPT/HCPCS: 70553; A9575

== ENCOUNTER 2023-03-28 08:14 | Outpatient (OUT) | payer OTHER, SELFPAY ==
[2023-03-28 09:23] LABS: Basophils Absolute Auto 0.1 10^3/uL (0.0-0.1); Basophils Percent Auto 0.5 % (0.2-2.0); Eosinophils Absolute Auto 0.1 10^3/uL (0.0-0.7); Eosinophils Percent Auto 0.5 % (0.9-7.0); Hematocrit 38.7 % (36.0-48.0); Hemoglobin 12.6 g/dL (12.0-16.0); Immature Granulocytes Abs Auto 0.06 10^3/uL (0.00-0.03); Immature Granulocytes Pct Auto 0.4 % (0.0-0.5); Lymphocytes Absolute Auto 3.7 10^3/uL (1.2-3.8); Lymphocytes Percent Auto 26.5 % (20.5-60.0); Mean Corpuscular HGB Conc 32.6 g/dL (29.9-35.2); Mean Corpuscular Hemoglobin 29.1 pg (26.7-34.0); Mean Corpuscular Volume 89.4 fL (81.0-99.0); Mean Platelet Volume 10.4 fL (9.5-13.5); Monocytes Absolute Auto 1.4 10^3/uL (0.3-0.8); Monocytes Percent Auto 9.9 % (1.7-12.0); Neutrophils Absolute Auto 8.7 10^3/uL (1.4-6.5); Neutrophils Percent Auto 62.2 % (43.0-75.0); Platelet Count 452 10^3/uL (150-450); Red Blood Count 4.33 10^6/uL (4.20-5.40); White Blood Count 13.9 10^3/uL (4.0-11.0)
[2023-03-28 09:26] LABS: Alanine Aminotransferase 9 U/L (14-59); Albumin Globulin Ratio 0.8; Albumin Level 3.4 g/dL (3.4-5.0); Alkaline Phosphatase 153 U/L (46-116); Aspartate Amino Transferase 18 U/L (15-37); BUN Creatinine Ratio 15.2; Bilirubin Total 0.4 mg/dL (0.2-1.0); Calcium 9.2 mg/dL (8.5-10.1); Carbon Dioxide 27.6 mmol/L (21.0-32.0); Chloride 101 mmol/L (98-107); Estimated GFR (African America >60 (>=60); Estimated GFR (Non-African Ame >60 (>=60); Globulin 4.4 g/dL; Glucose 130 mg/dL (74-106); Magnesium 1.9 mg/dL (1.8-2.4); Potassium 3.6 mmol/L (3.5-5.1); Sodium 138 mmol/L (136-145); Total Protein 7.8 g/dL (6.4-8.2)
[2023-03-29 15:11] LABS: Albumin 3.3 g/dL (2.9-4.4); Alpha-1-Globulin 0.3 g/dL (0.0-0.4); Alpha-2-Globulin 1.4 g/dL (0.4-1.0); Gamma Globulin 0.8 g/dL (0.4-1.8); Protein, Total 6.8 g/dL (6.0-8.5)
== END 2023-03-28 08:15 | disposition home or self-care (01) ==
LOC: HEMC 08:21
PROVIDERS: PCP Family Medicine; Visit Provider Internal Medicine Hematology & Oncology
DX: Z51.11 Encounter for antineoplastic chemotherapy (principal); Z51.12 Encounter for antineoplastic immunotherapy; C34.92 Malignant neoplasm of unspecified part of left bronchus or lung; D72.829 Elevated white blood cell count, unspecified; D64.9 Anemia, unspecified; R11.2 Nausea with vomiting, unspecified; D72.820 Lymphocytosis (symptomatic)
CPT/HCPCS: 36415; 36591; 80053; 83735; 85025; G0463

== ENCOUNTER 2023-04-04 08:30 | Outpatient (OUT) | payer OTHER, SELFPAY | END 2023-04-04 08:31 | disposition home or self-care (01) | PROVIDERS: PCP Family Medicine; Visit Provider Internal Medicine Hematology & Oncology | DX: Z53.9 Procedure and treatment not carried out, unspecified reason (principal) | CPT/HCPCS: J2469 ==

== ENCOUNTER 2023-04-11 08:30 | Outpatient (OUT) | payer OTHER, SELFPAY | END 2023-04-11 08:31 | disposition home or self-care (01) | PROVIDERS: PCP Family Medicine; Visit Provider Internal Medicine Hematology & Oncology | DX: C34.92 Malignant neoplasm of unspecified part of left bronchus or lung (principal); D72.829 Elevated white blood cell count, unspecified; D64.9 Anemia, unspecified; R11.2 Nausea with vomiting, unspecified; D72.820 Lymphocytosis (symptomatic) | CPT/HCPCS: G0463 ==

== ENCOUNTER 2023-04-18 09:13 | Outpatient (OUT) | payer OTHER, SELFPAY ==
--- NOTE | 2023-04-18 09:21 | XR_ITS ---
The [address] [address] Patient Name: JEANMARIE ECHEVARRIA MRN: [id number] date: 1965 Sex: F Assigned Patient Location: [facility] Current Patient Location: [facility] Accession/Order Number: [id number] Exam Date: 04/18/2023 09:23 Report Date: 04/18/2023 09:42 At the request of: BROCK RODNEY Procedure: XR chest 2V EXAM: CHEST 2 VIEWS HISTORY: Lung Cancer TECHNIQUE: PA and lateral views chest. COMPARISON: None. FINDINGS: There is a stent in the left mainstem bronchus. There is no focal lung consolidation, pleural effusion or pneumothorax. Pulmonary vasculature is within normal limits. There is aortic atherosclerosis and normal heart size. There is a right internal jugular portacatheter with tip in the superior vena cava. XR/XR chest 2V IMPRESSION: 1. Stent in the left mainstem bronchus. Lungs clear without acute cardiopulmonary disease. Electronically authenticated by: CUCO CAIN Date: 04/18/2023 09:42
== END 2023-04-18 09:14 | disposition home or self-care (01) ==
LOC: HEMC 09:13
PROVIDERS: PCP Family Medicine; Visit Provider Internal Medicine Hematology & Oncology
DX: C34.92 Malignant neoplasm of unspecified part of left bronchus or lung (principal); D72.829 Elevated white blood cell count, unspecified; D64.9 Anemia, unspecified; R11.2 Nausea with vomiting, unspecified; D72.820 Lymphocytosis (symptomatic)
CPT/HCPCS: 71046; G0463

== ENCOUNTER 2023-04-25 08:30 | Outpatient (RCR) | payer OTHER, SELFPAY ==
[2023-03-28 09:12] VITALS: BP 109/77; PULSE 77; RESP 16; TEMP 35.8; O2SAT 92
[2023-03-28] MEDS: DIPHENHYDRAMINE HCL 50 MG/ML (1ML) VIAL IV (09:52)
[2023-03-28] MEDS: PALONOSETRON HCL 0.25 MG/5 ML VIAL IV (09:52)
[2023-03-28] MEDS: DEXAMETHASONE SODIUM PHOSPHATE 10 MG in 0.9 % SODIUM CHLORIDE 100 ML 303 MG IV (09:52)
[2023-03-28] MEDS: FAMOTIDINE 20 MG TABLET PO (10:08)
--- NOTE | 2023-03-28 10:28 | PC.NURSE ---
Addendum entered by Andrew Stephen 03/28/23 10:58: Time 0912 for note below. Original Note: Pt. to [facility] amb from Dr. Rodriguez office visit. Weight and vitals obtained. Port accessed during office visit. #19 gauge Meneses needle used to access right ant. chest port using sterile technique per this RN. Attempts made x's 2. Second attempt flushes easily with easy aspiration of blood. Blood drawn for labs. Pt. relays minimal c/o discomfort with access. Pt. forgot to apply lidocaine cream before arrival. Encouraged pt. to try and remember to use to lessen discomfort with port access. Pt. relays understanding. Pt. accompanied by sister Dena. Pt. seated in recliner. Awaiting lab results. Given Coke to drink per. pt. request.
--- NOTE | 2023-03-28 10:38 | PC.NURSE ---
Paclitaxel 78mg initiated at this time. All pre-meds given as ordered prior to infusion.
--- NOTE | 2023-03-28 10:53 | PC.NURSE ---
1053: Pt. given snack. Denies s&s of adverse reaction. Sister at chair side
[2023-03-28 11:45] VITALS: BP 116/71; PULSE 69; RESP 14; TEMP 36.9; O2SAT 90
--- NOTE | 2023-03-28 11:57 | PC.NURSE ---
1145: IV Taxol completed at this time without s&s of adverse reaction. VSS. Port flushed with saline. 1148: IV Carboplatin 232mg initiated at this time. Pt. denies needs.
--- NOTE | 2023-03-28 12:00 | PC.NURSE ---
Tolerating infusion without c/o. Denies needs
[2023-03-28] MEDS: HEPARIN SODIUM (PORCINE) PF LOCK FLUSH 500 UNIT/5 ML SYRINGE IV (12:20)
[2023-03-28 12:32] VITALS: BP 137/75; PULSE 76; RESP 20; TEMP 36.9; O2SAT 92
[2023-03-28] MEDS: 0.9 % SODIUM CHLORIDE 250 ML 30 ML IV (12:40)
--- NOTE | 2023-03-28 12:46 | PC.NURSE ---
1225: Carboplatin infusion completed without s&s of adverse reaction. Port flushed with saline and Heparin flush. Port de-accessed. 2x2 placed over insertion site. Pt. tolerated without c/o. VSS. Reminded to watch temp. and call in if greater than 100.4F Pt. relays understanding. Given education on new prescriptions Dr. Rodriguez called in. Denies questions. 1232: D/c'd to home amb. with sister.
[2023-04-04 07:59] VITALS: BP 123/71; PULSE 75; RESP 20; TEMP 36.8; O2SAT 95
--- NOTE | 2023-04-04 07:59 | PC.NURSE ---
0759: Pt. to [facility] amb. accompanied by sister. Wt. obtained. Seated in recliner. VSS. Using sterile technique, right ant. chest port accessed using #19 gauge Meneses needle. Flushes easily. Blood aspirated for lab draw after several attempts. Pt. c/o tenderness upon access. Denies pain after SLF. Pt. given Ensure strawberry shake, breakfast ordered.
[2023-04-04 08:30] LABS: Basophils Absolute Auto 0.1 10^3/uL (0.0-0.1); Basophils Percent Auto 0.6 % (0.2-2.0); Eosinophils Absolute Auto 0.2 10^3/uL (0.0-0.7); Eosinophils Percent Auto 1.3 % (0.9-7.0); Hematocrit 37.4 % (36.0-48.0); Hemoglobin 12.3 g/dL (12.0-16.0); Immature Granulocytes Abs Auto 0.17 10^3/uL (0.00-0.03); Immature Granulocytes Pct Auto 1.5 % (0.0-0.5); Lymphocytes Absolute Auto 2.3 10^3/uL (1.2-3.8); Lymphocytes Percent Auto 20.8 % (20.5-60.0); Mean Corpuscular HGB Conc 32.9 g/dL (29.9-35.2); Mean Corpuscular Hemoglobin 29.4 pg (26.7-34.0); Mean Corpuscular Volume 89.3 fL (81.0-99.0); Mean Platelet Volume 10.3 fL (9.5-13.5); Monocytes Absolute Auto 0.9 10^3/uL (0.3-0.8); Neutrophils Absolute Auto 7.6 10^3/uL (1.4-6.5); Neutrophils Percent Auto 67.8 % (43.0-75.0); Platelet Count 365 10^3/uL (150-450); Red Blood Count 4.19 10^6/uL (4.20-5.40); Red Cell Distribution Width 15.1 % (11.0-15.0); White Blood Count 11.2 10^3/uL (4.0-11.0)
[2023-04-04 08:43] LABS: Alanine Aminotransferase 24 U/L (14-59); Albumin Globulin Ratio 0.7; Alkaline Phosphatase 133 U/L (46-116); Aspartate Amino Transferase 18 U/L (15-37); BUN Creatinine Ratio 20.8; Bilirubin Total 0.5 mg/dL (0.2-1.0); Calcium 8.9 mg/dL (8.5-10.1); Carbon Dioxide 25.5 mmol/L (21.0-32.0); Chloride 104 mmol/L (98-107); Estimated GFR (African America >60 (>=60); Estimated GFR (Non-African Ame >60 (>=60); Globulin 4.2 g/dL; Glucose 112 mg/dL (74-106); Magnesium 1.8 mg/dL (1.8-2.4); Potassium 3.5 mmol/L (3.5-5.1); Sodium 139 mmol/L (136-145); Total Protein 7.2 g/dL (6.4-8.2)
--- NOTE | 2023-04-04 08:54 | PC.NURSE ---
Lab results sent to Dr. Rodriguez per. Shay text. Labs reviewed, chemo doses verified. Dr. Rodriguez gives order to proceed with treatment.
[2023-04-04] MEDS: FAMOTIDINE 20 MG TABLET PO (09:32)
[2023-04-04] MEDS: DEXAMETHASONE SODIUM PHOSPHATE 10 MG in 0.9 % SODIUM CHLORIDE 100 ML 307.5 MG IV (09:32)
[2023-04-04] MEDS: DIPHENHYDRAMINE HCL 50 MG/ML (1ML) VIAL IV (09:32)
--- NOTE | 2023-04-04 09:43 | PC.NURSE ---
Pre-meds given. Spanish Lecturer in to speak with patient.
[2023-04-04] MEDS: PALONOSETRON HCL 0.25 MG/5 ML VIAL IV (09:58)
--- NOTE | 2023-04-04 10:06 | PC.NURSE ---
Addendum entered by Andrew Stephen 04/04/23 10:52: Medication double checked with BURTON Choi before initiating infusion. Original Note: IV Taxol initiated at this time. Speech therapist in to speak with patient at this time. Pt. denies needs or c/o. Sister remains at chairside.
--- NOTE | 2023-04-04 10:53 | PC.NURSE ---
Pt. resting quietly with eyes closed. Resps. even and unlabored. Appears to be without s&s of distress. Sister remains present.
[2023-04-04 11:15] VITALS: BP 99/64; PULSE 70; RESP 16; TEMP 36.6; O2SAT 93
--- NOTE | 2023-04-04 11:15 | PC.NURSE ---
Taxol completed without s&s of adverse reaction. VSS. IV Carboplatin initiated. Pt. without c/o.
--- NOTE | 2023-04-04 11:39 | REH.SLP ---
Patient seen at bedside during infusion this AM (10:00). Patient provided with general overview of dysphagia and information relating to dysphagia as possible side effect of current treatments for cancer. Written list of signs and symptoms to be aware of which could indicate swallowing difficulties and prompt a discussion with physician reviewed. Patient appears overwhelmed at this time - handouts given and placed in folder at bedside along with this ANNUAL GIVING OFF[employer]ER business card with instructions to call if any questions should arise down the road.
[2023-04-04 11:55] VITALS: BP 101/70; PULSE 77; RESP 18; TEMP 36.6; O2SAT 94
--- NOTE | 2023-04-04 11:55 | PC.NURSE ---
Treatment complete. Port flushed with saline and Heparin 500 units. Port de-accessed, covered with dressing for trace bleeding. Pt. tolerated without c/o. VSS. D/c'd to home amb. with sister. Pt. given Ensure strawerry protein shakes and encouraged to drink at home. Pt relays understanding.
--- NOTE | 2023-04-04 12:32 | PC.NURSE ---
IV Taxol completed without s&s of adverse reaction. IV Carboplatin initiated. Pt. given Coke per request. VSS. Denies needs.
[2023-04-11 08:40] LABS: Basophils Absolute Auto 0.1 10^3/uL (0.0-0.1); Basophils Percent Auto 0.7 % (0.2-2.0); Eosinophils Percent Auto 0.1 % (0.9-7.0); Hematocrit 36.2 % (36.0-48.0); Hemoglobin 11.9 g/dL (12.0-16.0); Immature Granulocytes Abs Auto 0.51 10^3/uL (0.00-0.03); Immature Granulocytes Pct Auto 4.5 % (0.0-0.5); Lymphocytes Absolute Auto 1.6 10^3/uL (1.2-3.8); Lymphocytes Percent Auto 13.8 % (20.5-60.0); Mean Corpuscular HGB Conc 32.9 g/dL (29.9-35.2); Mean Corpuscular Volume 91.2 fL (81.0-99.0); Mean Platelet Volume 10.4 fL (9.5-13.5); Monocytes Absolute Auto 0.8 10^3/uL (0.3-0.8); Monocytes Percent Auto 7.3 % (1.7-12.0); Neutrophils Absolute Auto 8.3 10^3/uL (1.4-6.5); Neutrophils Percent Auto 73.6 % (43.0-75.0); Platelet Count 311 10^3/uL (150-450); Red Blood Count 3.97 10^6/uL (4.20-5.40); Red Cell Distribution Width 15.9 % (11.0-15.0); White Blood Count 11.3 10^3/uL (4.0-11.0)
[2023-04-11 09:00] VITALS: BP 99/70; PULSE 78; RESP 20; TEMP 37.1; O2SAT 95
--- NOTE | 2023-04-11 09:00 | PC.NURSE ---
0900: Pt. to [facility] after appointment with Dr. Rodriguez. Port accessed earlier per. this RN. #19 gauge Meneses inserted into right ant. chest port using sterile technique. Flushes easily with good blood return. Blood drawn from port for ordered labs. Sent at 0840. Meneses left in and covered with opsite dressing. Pt. tolerated without c/o. Sister at chair side. Pt. given warm blanket and protein shake. Denies needs.
[2023-04-11 09:03] LABS: Alanine Aminotransferase 35 U/L (14-59); Albumin Globulin Ratio 0.9; Albumin Level 3.2 g/dL (3.4-5.0); Alkaline Phosphatase 133 U/L (46-116); Anion Gap 13.2; Aspartate Amino Transferase 22 U/L (15-37); BUN Creatinine Ratio 28.4; Bilirubin Total 0.1 mg/dL (0.2-1.0); Calcium 8.6 mg/dL (8.5-10.1); Carbon Dioxide 25.6 mmol/L (21.0-32.0); Chloride 109 mmol/L (98-107); Estimated GFR (African America >60 (>=60); Estimated GFR (Non-African Ame >60 (>=60); Globulin 3.7 g/dL; Glucose 119 mg/dL (74-106); Magnesium 1.7 mg/dL (1.8-2.4); Potassium 3.8 mmol/L (3.5-5.1); Sodium 144 mmol/L (136-145); Total Protein 6.9 g/dL (6.4-8.2)
[2023-04-11] MEDS: 0.9 % SODIUM CHLORIDE 250 ML 10 ML IV (10:03)
[2023-04-11] MEDS: DEXAMETHASONE SODIUM PHOSPHATE 10 MG in 0.9 % SODIUM CHLORIDE 100 ML 303 MG IV (10:13)
[2023-04-11] MEDS: DIPHENHYDRAMINE HCL 50 MG/ML (1ML) VIAL IV (10:14)
[2023-04-11] MEDS: PALONOSETRON HCL 0.25 MG/5 ML VIAL IV (10:14)
[2023-04-11] MEDS: FAMOTIDINE 20 MG TABLET PO (10:14)
--- NOTE | 2023-04-11 10:14 | PC.NURSE ---
Pre-infusion meds administered at this time. Pt. without c/o or needs.
--- NOTE | 2023-04-11 10:51 | PC.NURSE ---
Iv Taxol initiated at this time. Pt. without c/o.
[2023-04-11 11:38] LABS: SARS-CoV-2 Ag NEGATIVE (NEGATIVE)
[2023-04-11 11:50] VITALS: BP 101/68; PULSE 70; RESP 14; TEMP 36.6; O2SAT 94
--- NOTE | 2023-04-11 11:50 | PC.NURSE ---
IV Taxol infused without s&s of adverse reaction. VSS. IV Carboplatin initiated at this time. Pt. dozing off and on. Denies needs.
[2023-04-11 12:40] VITALS: BP 101/70; PULSE 77; RESP 18; TEMP 36.6; O2SAT 94
[2023-04-11] MEDS: HEPARIN SODIUM (PORCINE) PF LOCK FLUSH 500 UNIT/5 ML SYRINGE IV (12:40)
--- NOTE | 2023-04-11 12:40 | PC.NURSE ---
1240: Chemo completed at this time. VSS. Pt. tolerated without s&s of adverse reaction. Port flushed with saline and heparin. Port de-accessed. Pt. tolerated all without c/o. Pt. d/c'd amb. to radiation therapy with sister. Pt denies needs or c/o.
--- NOTE | 2023-04-11 14:21 | PC.NURSE ---
IV Carboplatin completed. Pt. tolerates without c/o or s&s of adverse side effects. VSS. Port flushed with Saline and Heparin. Port de-accessed at this time. No bleeding to site. Pt. tolerated without c/o. Pt. d/c'd amb. to home with sister.
[2023-04-11 15:17] LABS: SARS-CoV-2 NAA NOT DETECTED (NOT DETECTE)
--- NOTE | 2023-04-18 08:30 | PC.NURSE ---
0830: Pt. to [facility] amb. accompanied by sister. Seated in recliner. VSS. Using sterile technique, right ant. chest port accessed using #19gauge Meneses needle. Flushes easily. Able to aspirate blood easily. Blood drawn for labs. Pt. tolerated with minimal c/o. Pt. to exam room for office visit with Dr. Rodriguez.
[2023-04-18 09:08] LABS: Alanine Aminotransferase 42 U/L (14-59); Albumin Globulin Ratio 0.9; Albumin Level 3.4 g/dL (3.4-5.0); Alkaline Phosphatase 129 U/L (46-116); Anion Gap 14.7; Aspartate Amino Transferase 23 U/L (15-37); BUN Creatinine Ratio 36.5; Bilirubin Total 0.4 mg/dL (0.2-1.0); Carbon Dioxide 25.5 mmol/L (21.0-32.0); Chloride 100 mmol/L (98-107); Estimated GFR (African America >60 (>=60); Estimated GFR (Non-African Ame >60 (>=60); Globulin 3.9 g/dL; Glucose 101 mg/dL (74-106); Potassium 4.2 mmol/L (3.5-5.1); Sodium 136 mmol/L (136-145); Total Protein 7.3 g/dL (6.4-8.2)
[2023-04-18 09:09] LABS: Basophils Absolute Auto 0.1 10^3/uL (0.0-0.1); Basophils Percent Auto 0.5 % (0.2-2.0); Eosinophils Percent Auto 0.2 % (0.9-7.0); Hematocrit 39.9 % (36.0-48.0); Hemoglobin 13.1 g/dL (12.0-16.0); Immature Granulocytes Abs Auto 0.17 10^3/uL (0.00-0.03); Immature Granulocytes Pct Auto 1.6 % (0.0-0.5); Mean Corpuscular HGB Conc 32.8 g/dL (29.9-35.2); Mean Corpuscular Hemoglobin 29.9 pg (26.7-34.0); Mean Corpuscular Volume 91.1 fL (81.0-99.0); Mean Platelet Volume 10.7 fL (9.5-13.5); Monocytes Absolute Auto 0.7 10^3/uL (0.3-0.8); Monocytes Percent Auto 6.9 % (1.7-12.0); Neutrophils Absolute Auto 8.7 10^3/uL (1.4-6.5); Neutrophils Percent Auto 81.8 % (43.0-75.0); Platelet Count 238 10^3/uL (150-450); Red Blood Count 4.38 10^6/uL (4.20-5.40); White Blood Count 10.6 10^3/uL (4.0-11.0)
[2023-04-18 09:21] VITALS: BP 109/74; PULSE 61; RESP 18; TEMP 36.9; O2SAT 95
--- NOTE | 2023-04-18 09:29 | PC.NURSE ---
Pre-infusion meds initiated as ordered.
[2023-04-18] MEDS: DEXAMETHASONE SODIUM PHOSPHATE 10 MG in 0.9 % SODIUM CHLORIDE 100 ML 3060.3 MG IV (09:37)
[2023-04-18] MEDS: PALONOSETRON HCL 0.25 MG/5 ML VIAL IV (09:38)
[2023-04-18] MEDS: DIPHENHYDRAMINE HCL 50 MG/ML (1ML) VIAL IV (09:39)
[2023-04-18] MEDS: FAMOTIDINE 20 MG TABLET PO (09:41)
[2023-04-18] MEDS: HEPARIN SODIUM (PORCINE) PF LOCK FLUSH 500 UNIT/5 ML SYRINGE IV (11:43)
[2023-04-18 12:18] VITALS: BP 109/74; PULSE 66; RESP 18; TEMP 37.1; O2SAT 95
--- NOTE | 2023-04-18 12:24 | PC.NURSE ---
Pt. tolerated chemotherapy without s&s of adverse reaction. VSS. Port flushed with saline and Heparin, port de-accessed. Pt. d/c'd to home with sister.
[2023-04-25 08:30] VITALS: BP 120/78; PULSE 60; RESP 20; TEMP 36.5; O2SAT 97
--- NOTE | 2023-04-25 09:10 | PC.NURSE ---
0910: Pt. to recliner for chemo. Sister accompanies pt. Denies c/o at this time. Continues with moist cough with occasional clear expectorate. Relays ache b/w shoulder blades /10. Denies pain elsewhere. Relays starting to loose clumps of hair . Set up to obtain wig if needed. Right ant. chest port accessed. IV saline initiated at KVO. Breakfast tray ordered. 0940: Breakfast provided. Dr. Rodriguez aware of pt. lab results, gives OK to proceed with chemo treatment. Pharmacy notified.
[2023-04-25 09:21] LABS: Basophils Percent Auto 0.4 % (0.2-2.0); Eosinophils Percent Auto 0.3 % (0.9-7.0); Hematocrit 38.3 % (36.0-48.0); Hemoglobin 12.7 g/dL (12.0-16.0); Immature Granulocytes Abs Auto 0.15 10^3/uL (0.00-0.03); Immature Granulocytes Pct Auto 2.1 % (0.0-0.5); Lymphocytes Absolute Auto 1.1 10^3/uL (1.2-3.8); Lymphocytes Percent Auto 14.9 % (20.5-60.0); Mean Corpuscular HGB Conc 33.2 g/dL (29.9-35.2); Mean Corpuscular Hemoglobin 30.6 pg (26.7-34.0); Mean Corpuscular Volume 92.3 fL (81.0-99.0); Mean Platelet Volume 10.7 fL (9.5-13.5); Monocytes Absolute Auto 0.4 10^3/uL (0.3-0.8); Monocytes Percent Auto 5.9 % (1.7-12.0); Neutrophils Absolute Auto 5.4 10^3/uL (1.4-6.5); Neutrophils Percent Auto 76.4 % (43.0-75.0); Platelet Count 172 10^3/uL (150-450); Red Blood Count 4.15 10^6/uL (4.20-5.40); Red Cell Distribution Width 18.3 % (11.0-15.0); White Blood Count 7.1 10^3/uL (4.0-11.0)
[2023-04-25 09:33] LABS: Alanine Aminotransferase 33 U/L (14-59); Albumin Globulin Ratio 0.9; Albumin Level 3.5 g/dL (3.4-5.0); Alkaline Phosphatase 119 U/L (46-116); Anion Gap 15.3; Aspartate Amino Transferase 14 U/L (15-37); BUN Creatinine Ratio 31.7; Bilirubin Total 0.3 mg/dL (0.2-1.0); Calcium 9.1 mg/dL (8.5-10.1); Carbon Dioxide 27.1 mmol/L (21.0-32.0); Chloride 101 mmol/L (98-107); Estimated GFR (African America >60 (>=60); Estimated GFR (Non-African Ame >60 (>=60); Globulin 3.7 g/dL; Glucose 112 mg/dL (74-106); Magnesium 1.7 mg/dL (1.8-2.4); Potassium 4.4 mmol/L (3.5-5.1); Sodium 139 mmol/L (136-145); Total Protein 7.2 g/dL (6.4-8.2)
[2023-04-25] MEDS: PALONOSETRON HCL 0.25 MG/5 ML VIAL IV (10:13)
[2023-04-25] MEDS: DIPHENHYDRAMINE HCL 50 MG/ML (1ML) VIAL IV (10:13)
[2023-04-25] MEDS: FAMOTIDINE 20 MG TABLET PO (10:13)
[2023-04-25] MEDS: DEXAMETHASONE SODIUM PHOSPHATE 10 MG in 0.9 % SODIUM CHLORIDE 100 ML 303 MG IV (10:15)
[2023-04-25] MEDS: 0.9 % SODIUM CHLORIDE 250 ML 10 ML IV (10:20)
--- NOTE | 2023-04-25 10:50 | PC.NURSE ---
0830: Pt. to [facility] office visit with Dr. Rodriguez. Pt. to exam room. Right anterior chest port accessed using sterile technique per this RN. Flushes easily with good blood return. Blood drawn for ordered labs. Flushed with saline. Secured to chest with tegaderm dressing. Pt. tolerated with minimal c/o. Sister at chairside with patient.
--- NOTE | 2023-04-25 11:11 | PC.NURSE ---
1106: IV Taxol initiated at this time after verification of drug and dosage with BURTON Minor. Pt. without needs or c/o. Sister remains and chairside.
[2023-04-25 12:55] VITALS: BP 124/68; PULSE 66; RESP 16; TEMP 36.6; O2SAT 96
[2023-04-25] MEDS: HEPARIN SODIUM (PORCINE) PF LOCK FLUSH 500 UNIT/5 ML SYRINGE IV (12:56)
--- NOTE | 2023-04-25 12:58 | PC.NURSE ---
1251: IV Carboplatin completed at this time. Pt. without c/o adverse reaction. VSS. Port flushed with saline and Heparin flush. Port de-accessed. Bandaid placed over site. Pt. tolerated without c/o. 1255: Pt. d/c'd amb. to home with sister.
== END 2023-04-27 23:59 | disposition home or self-care (01) ==
LOC: INF 08:30
PROVIDERS: PCP Family Medicine; Visit Provider Internal Medicine Hematology & Oncology
DX: Z51.11 Encounter for antineoplastic chemotherapy (principal); Z51.12 Encounter for antineoplastic immunotherapy; C34.92 Malignant neoplasm of unspecified part of left bronchus or lung; D72.829 Elevated white blood cell count, unspecified; D64.9 Anemia, unspecified; D72.820 Lymphocytosis (symptomatic); R11.2 Nausea with vomiting, unspecified
CPT/HCPCS: 36415; 36591; 71046; 80053; 83735; 84155; 84165; 85025; 87635; 87811; 96367; 96375; 96411; 96413; 96417; 99211; G0463; J1100; J2469; J9045; J9264; J9267

== ENCOUNTER 2023-05-15 15:23 | Outpatient (OUT) | payer OTHER, SELFPAY ==
--- NOTE | 2023-05-15 15:33 | XR_ITS ---
The [address] [address] Patient Name: JEANMARIE ECHEVARRIA MRN: [id number] date: 1965 Sex: F Assigned Patient Location: RAD Current Patient Location: RAD Accession/Order Number: [id number] Exam Date: 05/15/2023 15:36 Report Date: 05/15/2023 15:53 At the request of: BROCK RODNEY Procedure: XR chest 2V EXAM: XR chest 2V HISTORY: C 34.92 MALIGNANT NEOPLASM OF LEFT LUNG COMPARISON: 04/18/2023 TECHNIQUE: Upright PA and lateral chest x-ray FINDINGS: The heart is not enlarged and the vasculature is not distended. No acute infiltrate, effusion or pneumothorax is identified. A stent is noted in the left main bronchus and a right sided indwelling catheter is in place with the tip in the superior vena cava. Diffuse osteopenia is noted. XR/XR chest 2V IMPRESSION: No acute infiltrate or evidence of cardiac decompensation. The overall appearance of the chest is unchanged. Electronically authenticated by: DALLIN SHAW Date: 05/15/2023 15:53
== END 2023-05-15 15:24 | disposition home or self-care (01) ==
LOC: RAD 15:26
PROVIDERS: PCP Family Medicine; Visit Provider Internal Medicine Hematology & Oncology
DX: C34.92 Malignant neoplasm of unspecified part of left bronchus or lung (principal); D72.829 Elevated white blood cell count, unspecified; D64.9 Anemia, unspecified; R11.2 Nausea with vomiting, unspecified; D72.820 Lymphocytosis (symptomatic)
CPT/HCPCS: 71046

== ENCOUNTER 2023-05-23 09:30 | Outpatient (RCR) | payer OTHER, SELFPAY ==
[2023-04-04 10:10] VITALS: BMI 27.1
[2023-05-02 08:40] LABS: Hematocrit 38.1 % (36.0-48.0); Hemoglobin 12.7 g/dL (12.0-16.0); Immature Granulocytes Abs Auto 0.04 10^3/uL (0.00-0.03); Lymphocytes Absolute Auto 0.4 10^3/uL (1.2-3.8); Lymphocytes Percent Auto 10.9 % (20.5-60.0); Mean Corpuscular HGB Conc 33.3 g/dL (29.9-35.2); Mean Corpuscular Hemoglobin 31.1 pg (26.7-34.0); Mean Corpuscular Volume 93.4 fL (81.0-99.0); Mean Platelet Volume 9.9 fL (9.5-13.5); Monocytes Absolute Auto 0.3 10^3/uL (0.3-0.8); Monocytes Percent Auto 6.7 % (1.7-12.0); Neutrophils Absolute Auto 3.3 10^3/uL (1.4-6.5); Neutrophils Percent Auto 81.4 % (43.0-75.0); Platelet Count 117 10^3/uL (150-450); Red Blood Count 4.08 10^6/uL (4.20-5.40); Red Cell Distribution Width 19.1 % (11.0-15.0)
[2023-05-02 08:55] VITALS: BP 101/66; PULSE 65; RESP 20; TEMP 36.6; O2SAT 94
--- NOTE | 2023-05-02 08:55 | PC.NURSE ---
0855: Pt. to [facility] after office visit with Dr. Rodriguez. Seated in recliner. Port accessed per this RN before office visit. Right ant. chest port accessed using #19 gauge Meneses needle. Flushes easily with good blood return. Blood drawn for ordered labs. Pt. tolerated with minimal c/o. Sister with patient. Breakfast tray ordered. Pt. without needs or c/o. VSS.
[2023-05-02 09:03] LABS: Alanine Aminotransferase 37 U/L (14-59); Albumin Globulin Ratio 0.9; Albumin Level 3.4 g/dL (3.4-5.0); Alkaline Phosphatase 115 U/L (46-116); Anion Gap 13.1; Aspartate Amino Transferase 21 U/L (15-37); BUN Creatinine Ratio 38.7; Bilirubin Total 0.3 mg/dL (0.2-1.0); Calcium 8.6 mg/dL (8.5-10.1); Chloride 102 mmol/L (98-107); Estimated GFR (African America >60 (>=60); Estimated GFR (Non-African Ame >60 (>=60); Globulin 3.6 g/dL; Glucose 125 mg/dL (74-106); Potassium 4.1 mmol/L (3.5-5.1); Sodium 136 mmol/L (136-145)
[2023-05-02] MEDS: PALONOSETRON HCL 0.25 MG/5 ML VIAL IVP (09:32)
[2023-05-02] MEDS: DIPHENHYDRAMINE HCL 50 MG/ML (1ML) VIAL IV (09:35)
[2023-05-02] MEDS: FAMOTIDINE 20 MG TABLET PO (09:35)
[2023-05-02] MEDS: DEXAMETHASONE SODIUM PHOSPHATE 10 MG in 0.9 % SODIUM CHLORIDE 100 ML 303 MG IV (09:35)
[2023-05-02] MEDS: 0.9 % SODIUM CHLORIDE 250 ML 20 ML IV (09:36)
--- NOTE | 2023-05-02 10:23 | PC.NURSE ---
1030 ate breakfast, resting quietly eyes closed. Medications infusing via chest port as ordered.
[2023-05-02] MEDS: HEPARIN SODIUM (PORCINE) PF LOCK FLUSH 500 UNIT/5 ML SYRINGE IV (12:15)
--- NOTE | 2023-05-02 12:27 | PC.NURSE ---
1220 chemo infusions completed, tolerated well. port deaccessed. tolerated procedure well. Released ambulatory
[2023-05-09] MEDS: 0.9 % SODIUM CHLORIDE 250 ML 20 ML IV (09:00)
[2023-05-09 09:23] LABS: Basophils Percent Auto 0.8 % (0.2-2.0); Eosinophils Percent Auto 0.4 % (0.9-7.0); Immature Granulocytes Abs Auto 0.06 10^3/uL (0.00-0.03); Immature Granulocytes Pct Auto 2.3 % (0.0-0.5); Lymphocytes Absolute Auto 0.6 10^3/uL (1.2-3.8); Lymphocytes Percent Auto 24.5 % (20.5-60.0); Mean Corpuscular HGB Conc 34.2 g/dL (29.9-35.2); Mean Corpuscular Hemoglobin 31.2 pg (26.7-34.0); Mean Corpuscular Volume 91.1 fL (81.0-99.0); Mean Platelet Volume 10.6 fL (9.5-13.5); Monocytes Absolute Auto 0.2 10^3/uL (0.3-0.8); Monocytes Percent Auto 6.5 % (1.7-12.0); Neutrophils Absolute Auto 1.7 10^3/uL (1.4-6.5); Neutrophils Percent Auto 65.5 % (43.0-75.0); Platelet Count 154 10^3/uL (150-450); Red Blood Count 4.17 10^6/uL (4.20-5.40); Red Cell Distribution Width 19.9 % (11.0-15.0); White Blood Count 2.6 10^3/uL (4.0-11.0)
[2023-05-09 09:34] LABS: Alanine Aminotransferase 38 U/L (14-59); Albumin Level 3.3 g/dL (3.4-5.0); Alkaline Phosphatase 105 U/L (46-116); Anion Gap 11.4; Aspartate Amino Transferase 25 U/L (15-37); BUN Creatinine Ratio 29.3; Bilirubin Total 0.5 mg/dL (0.2-1.0); Calcium 8.4 mg/dL (8.5-10.1); Carbon Dioxide 26.8 mmol/L (21.0-32.0); Chloride 104 mmol/L (98-107); Estimated GFR (African America >60 (>=60); Estimated GFR (Non-African Ame >60 (>=60); Globulin 3.4 g/dL; Glucose 96 mg/dL (74-106); Magnesium 1.7 mg/dL (1.8-2.4); Potassium 3.2 mmol/L (3.5-5.1); Sodium 139 mmol/L (136-145); Total Protein 6.7 g/dL (6.4-8.2)
[2023-05-09 09:51] VITALS: BP 103/73; PULSE 78; RESP 18; TEMP 36.7; O2SAT 94
--- NOTE | 2023-05-09 09:56 | PC.NURSE ---
0930 Arrived ambulatory from exam room to chair 3.
[2023-05-09] MEDS: PALONOSETRON HCL 0.25 MG/5 ML VIAL IV (10:10)
[2023-05-09] MEDS: FAMOTIDINE 20 MG TABLET PO (10:10)
[2023-05-09] MEDS: DEXAMETHASONE SODIUM PHOSPHATE 10 MG in 0.9 % SODIUM CHLORIDE 100 ML 303 MG IV (10:11)
[2023-05-09] MEDS: DIPHENHYDRAMINE HCL 50 MG/ML (1ML) VIAL IV (10:11)
--- NOTE | 2023-05-09 10:22 | PC.NURSE ---
1015 premedications administered. Eating breakfast, family member at chairside.
--- NOTE | 2023-05-09 10:26 | PC.NURSE ---
Labs reviewed with patient. Educated onNeutropenia precautions reviewed, provided handout. Discussed hypokalemia, informed of prescription sent in, to take as directed. Verbalizes understanding
[2023-05-09] MEDS: CARBOPLATIN IV (11:52)
[2023-05-09] MEDS: SODIUM CHLORIDE 0.9% IV (11:52)
--- NOTE | 2023-05-09 12:04 | PC.NURSE ---
Tolerating chemo without issues, resting quietly.
[2023-05-09] MEDS: HEPARIN SODIUM (PORCINE) PF LOCK FLUSH 500 UNIT/5 ML SYRINGE IV (12:50)
[2023-05-23 09:56] LABS: Hemoglobin 11.5 g/dL (12.0-16.0); Mean Corpuscular HGB Conc 33.8 g/dL (29.9-35.2); Mean Corpuscular Hemoglobin 31.9 pg (26.7-34.0); Mean Corpuscular Volume 94.4 fL (81.0-99.0); Mean Platelet Volume 10.8 fL (9.5-13.5); Platelet Count 293 10^3/uL (150-450); Red Cell Distribution Width 20.8 % (11.0-15.0)
[2023-05-23 10:15] LABS: Lymphocytes Absolute Manual 0.84 10^3/uL (1.20-3.80)
[2023-05-23 10:16] LABS: Anisocytosis 2+; Band Neutrophils Absolute 0.6 10^3/uL (0.0-0.3)
[2023-05-23 10:25] LABS: Anion Gap 15.8; BUN Creatinine Ratio 22.4; Calcium 9.3 mg/dL (8.5-10.1); Chloride 100 mmol/L (98-107); Estimated GFR (African America >60 (>=60); Estimated GFR (Non-African Ame >60 (>=60); Glucose 118 mg/dL (74-106); Sodium 141 mmol/L (136-145)
[2023-05-23 10:29] LABS: Potassium 2.8 mmol/L (3.5-5.1)
--- NOTE | 2023-05-23 10:45 | PC.NURSE ---
Arrived ambulatory for office visit and lab draw complains of severe weakness, shortness of breath and generalized malaise. Rt port chest accessed using #19 guage ceja needle, good blood return noted flushes well,labs drawn and sent to lab. Dr Tabor sends patient to ER for evaluation, he calls and speaks with ER physician. Transported to ER per W/C. Family with patient.
== END 2023-05-27 23:59 | disposition home or self-care (01) ==
LOC: INF 09:30
PROVIDERS: PCP Family Medicine; Visit Provider Internal Medicine Hematology & Oncology
DX: Z51.11 Encounter for antineoplastic chemotherapy (principal); C34.92 Malignant neoplasm of unspecified part of left bronchus or lung; D72.829 Elevated white blood cell count, unspecified; D64.9 Anemia, unspecified; R11.2 Nausea with vomiting, unspecified; D72.820 Lymphocytosis (symptomatic); F17.210 Nicotine dependence, cigarettes, uncomplicated
CPT/HCPCS: 36415; 36591; 80048; 80053; 83735; 85025; 85027; 96367; 96375; 96411; 96413; 96415; 96417; 99211; G0463; J1100; J2469; J9045; J9267

== ENCOUNTER 2023-05-23 10:10 | Emergency (ER) | payer OTHER, SELFPAY ==
[2023-05-23] VITALS (29 sets, daily range): BP systolic 135; BP diastolic 96; PULSE 84–122; RESP 12–23; TEMP 36.5; O2SAT 87–98; BMI 25.4
--- NOTE | 2023-05-23 10:22 | ECG_ITS ---
The [facility] Test Date: 2023-05-23 Pat Name: JEANMARIE ECHEVARRIA Department: Room: - Gender: Female Disciplinary Hearing Officer: : 1965 Requested By: JON STEWART Order Number: [id number] Reading MD: JARVIS REYES Measurements Intervals [place] Rate: 93 P: 18 LA: 140 QRS: 13 QRSD: 98 T: 189 QT: 336 QTc: 386 Interpretive Statements 1100 Sinus rhythm with occasional supraventricular premature complexes 5234 Left ventricular hypertrophy with repolarization abnormality 6220 Possible left atrial enlargement 9150 abnormal ECG Compared to ECG 02/19/2023 18:28:44 Possible ischemia no longer present Electronically Signed On 05-24-2023 6:56:52 EDT by JARVIS REYES
--- NOTE | 2023-05-23 10:24 | ED.GENADUL1 ---
HPI - General Adult General Chief complaint: Shortness of Breath/Dyspnea Stated complaint: GENERAL WEAKNESS AND SHORTNESS OF BREATH Time Seen by Provider: 05/23/23 10:22 Source: patient and family Mode of arrival: Wheelchair Limitations: no limitations History of Present Illness HPI narrative: Patient is a 57-year-old female who is presenting to the Emergency Room with 2 days of intermittent but continuous coughing throughout the day and evening. Patient has a recent history of stage III lung cancer with a pulmonary stent. Patient has finished chemotherapy and radiation. Patient was here for an outpatient visit with Dr. Rodriguez. Patient was seen and evaluated in the outpatient clinic setting, she had no treatments for therapies done today. Patient was also complaining about heaviness and weakness to her legs and body. Outpatient labs were ordered by Dr. Rodriguez. Patient was then sent to the Emergency Room for evaluation for coughing spells. Dr Rodriguez was concerned about possible mucous plugs versus migration of pulmonary stent versus pneumonia versus PE. Patient has been intermittently tachycardic well. Patient has a history of chronic obstructive pulmonary disease from smoking. Patient has no chest heaviness, no significant chest pressure. No dull pain, nausea or vomiting. Patient does have weakness and heaviness to legs. Patient has inhalers at home, she has no nebulizers at home. Patient was sent to the Emergency Room for further evaluation and a CTA of the chest. patient has no bowel pain, nausea or vomiting. Patient has a recent traveling. No sick contacts. No other acute complaints. . All systems are negative except as noted/marked. All systems reviewed and otherwise negative. . Nurses note and vital signs reviewed and patient is not hypoxic. General: The patient appears well and in no apparent distress. Patient is resting uncomfortably on cart. Patient is not toxic, lethargic, or listless. patient is having intermittent dry coughing spells during HPI and physical exam. Skin: Warm, dry, no pallor noted. There is no rash noted. No petechiae, purpura. Head: Normocephalic, atraumatic Eye: Normal conjunctiva, no drainage, EOMI. PERRL Ears, Nose, Mouth, and Throat: oral mucosa is moist. Nares patent. Mouth without vesicles. Cardiovascular: Regular Rate and Rhythm, no murmur, gallop, rub Respiratory: Patient is in no distress, no accessory muscle use, lungs are clear to auscultation, no wheezing, rales or rhonchi. when patient has dry coughing spells, she has faint wheezing bilateral upper lobes. Back: non-tender, no CVA tenderness bilaterally to percussion. No CT LS midline pain GI: soft, no tenderness to palpation, no masses appreciated. No rebound, guarding, or rigidity noted. No flank pain bilateral, No distention Musculoskeletal: Patient has full range of motion of all of the extremities, no motor, sensory, or focal neurological deficits Neurological: A&O x3, normal speech Psychiatric: Cooperative Related Data Home Medications Medication Instructions Recorded Confirmed aspirin 81 mg chewable tablet 81 mg PO DAILY 02/02/23 05/09/23 atorvastatin 80 mg tablet 80 mg PO DAILY 02/02/23 05/09/23 isosorbide mononitrate 30 mg 30 mg PO DAILY 02/02/23 05/09/23 tablet,extended release 24 hr metoprolol succinate 50 mg 50 mg PO Q12H 02/02/23 05/09/23 tablet,extended release 24 hr nitroglycerin 0.4 mg sublingual 0.4 mg sublingual Q5M PRN chest 02/02/23 05/09/23 tablet pain ticagrelor 90 mg tablet (Brilinta) 90 mg PO Q12H 02/02/23 05/09/23 dexamethasone 1 mg tablet mg 05/09/23 omeprazole 20 mg capsule,delayed 40 mg PO DAILY 05/09/23 05/09/23 release oxycodone 5 mg tablet 5 mg PO Q12H PRN pain 05/09/23 05/09/23 prochlorperazine maleate 10 mg 10 mg PO Q8H PRN nausea and 05/09/23 05/09/23 tablet vomiting Previous Rx's Medication Instructions Recorded albuterol sulfate 90 mcg/actuation 2 inh inhalation Q4H PRN shortness 02/02/23 breath activated powder inhaler of breath #1 ea albuterol sulfate 90 mcg/actuation 2 inh inhalation Q6H PRN shortness 02/21/23 aerosol inhaler (Ventolin HFA) of breath or wheezing #6.7 grams amoxicillin 500 mg-potassium 1 tab PO TID 10 days #30 tabs 05/23/23 clavulanate 125 mg tablet (Augmentin) amoxicillin-potassium clavulanate 1 tab PO BID 10 days #20 tabs 05/23/23 1,000 mg-62.5 mg tablet,ext.rel 12hr (Augmentin XR) azithromycin 250 mg tablet See Rx Instructions PO .COMPLEX 5 05/23/23 days #6 tabs iwnsajgahappcju-wmprlioyefwlngd-BG 10 ml PO Q6H PRN cold symptoms 05/23/23 2 mg-30 mg-10 mg/5 mL oral syrup #200 mL (Bromfed DM) Allergies Allergy/AdvReac Type Severity Reaction Status Date / Time No Known Drug Allergies Allergy Verified 05/23/23 10:15 [facility] Medical History Surgical History Family History Mother Family history of CHF (congestive heart failure) Family history of diabetes mellitus Family history of hypertension Family history of myocardial infarction Social History Within the past year, how often did you have a drink containing alcohol: never Within the past year, how often did you have six or more drinks on one occasion: never Score interpretation: A score less than 3 is consistent with normal alcohol consumption. Smoking status: Former smoker Second hand tobacco smoke exposure: Yes Non-prescribed substance use: denies use Previous occupational history: Does not work Known occupational exposures/hazards: No Highest level of school completed/degree received: high school graduate Do you want help with school or training: No Are you now , , , , never or living with a partner: In a typical week, how many times do you talk on the telephone with family, friends, or neighbors: never How often do you get together with friends or relatives: never How often do you attend jehovah's witness or latter-day services: never Do you belong to any clubs or organizations such as jehovah's witness groups unions, fraternal or athletic groups, or school groups: no Total score: 1 Score interpretation: A score of less than or equal to 1 indicates the most socially isolated. Little interest or pleasure in doing things: several days Feeling down, depressed, or hopeless: several days Feel stressed/tense/nervous/anxious/difficulty sleeping: very much Life stressors: other Life stressor details: Due to disability, difficulty making decisions: No Do you think of yourself as: straight/heterosexual Gender Identity: female Exam Constitutional Vital Signs, click to edit/add: Last Vital Signs Temp 97.7 F 05/23/23 10:15 Pulse 87 05/23/23 14:40 Resp 20 05/23/23 11:30 BP 135/96 H 05/23/23 10:18 Pulse Ox 97 05/23/23 14:40 O2 Del Method Nasal Cannula 05/23/23 12:33 O2 Flow Rate 2 05/23/23 12:33 Course Vital Signs Vital signs: Vital Signs Temperature 97.7 F 05/23/23 10:15 Pulse Rate 122 H 05/23/23 10:15 Respiratory Rate 18 05/23/23 10:15 Blood Pressure 135/96 H 05/23/23 10:15 Pulse Oximetry 95 05/23/23 10:15 Oxygen Delivery Method Room Air 05/23/23 10:15 Temperature 97.7 F 05/23/23 10:15 Pulse Rate 87 05/23/23 14:40 Respiratory Rate 20 05/23/23 11:30 Blood Pressure 135/96 H 05/23/23 10:18 Pulse Oximetry 97 05/23/23 14:40 Oxygen Delivery Method Nasal Cannula 05/23/23 12:33 Oxygen Delivery Flow Rate 2 05/23/23 12:33 Medical Decision Making MDM Narrative Medical decision making narrative: patient was initially sent down from the oncology infusion center secondary to tachycardia, oxygen levels in the low 90s, weakness, and concern for mucous plugs/migration of a pulmonary stent. Patient has finished chemotherapy and radiation. Patient was seeing Dr. Rodriguez for a routine office visit follow-up. there has been multiple phone calls concerning this patient. I have spoken to the oncologist, Dr. Rodriguez 4 different times concerning this patient. It was noted the patient potassium was 2.8 on lab work that Dr. Rodriguez had ordered as an outpatient prior to arriving to the Emergency Room that I was not aware of. patient was given oral and IV potassium over 4 hours.Patient has been given IV fluids. CTA of the chest shows no PE, consolidation to bilateral upper lobes, no significant other acute abnormalities. I have spoken to Dr. Nair concerning this patient and disposition as well. The ultimate recommendation from Dr. Nair isn't patient is hemodynamically stable and looks well-nourished to go home which the patient does, there is no indication for transfer, patient may be given a dose of IV Zosyn in the Emergency Room, sent home with prescription for Augmentin and Z-Rios and he can see the patient in the office at 9:00 morning. Patient is currently taking steroids. Patient was sent home a cough medication as well along prescriptions for Augmentin and Z-Rios. I initially prescribed Augmentin XR, patient stated this was too expensive, patient had a indication on her phone that it would cost $150 for the prescription. Patient was then given Augmentin 600 mg 3 times a day for 30 days. Patient will see at 9:00 on morning. Patient is not hypoxic at discharge. Patient's heart rate is improved. Critical care time 45 minutes exclusive from separate billable procedures that were performed. The following was considered in the determination of critical care but not limited to the level of medical decision making, intensive cardiac and/or respiratory monitoring, frequent vital sign monitoring, evaluation of laboratory studies, evaluation of radiographic studies, oxygen monitoring, and constant monitoring and speaking to family at bedside Lab Data Labs: Lab Results 05/23/23 Range/Units 10:30 Sodium 141 (136-145) mmol/L Potassium 2.8 L* (3.5-5.1) mmol/L Chloride 101 (98-107) mmol/L Carbon Dioxide 27.7 (21.0-32.0) mmol/L Anion Gap 15.1 BUN 15.0 (7.0-18.0) mg/dL Creatinine 0.66 (0.55-1.02) mg/dL Est GFR ( Amer) >60 (>=60) Est GFR (Non-Af Amer) >60 (>=60) BUN/Creatinine Ratio 22.7 Glucose 118 H (74-106) mg/dL Calcium 9.3 (8.5-10.1) mg/dL Total Bilirubin 0.2 (0.2-1.0) mg/dL AST 104 H (15-37) U/L ALT 107 H (14-59) U/L Alkaline Phosphatase 186 H (46-116) U/L Troponin I High Sens 24.8 (4.0-51.3) pg/mL NT-Pro-B Natriuret Pep 662.0 (<=900.0) pg/mL Total Protein 7.3 (6.4-8.2) g/dL Albumin 2.5 L (3.4-5.0) g/dL Globulin 4.8 g/dL Albumin/Globulin Ratio 0.5 ECG Data Attestation: I personally reviewed and interpreted this ECG as follows: (EKG interpretation. Normal sinus rhythm at 93 beats a minute. Myocardial infarction axis deviation. Diffuse T-wave inversion, QTC of 386. Left ventricular hypertrophy noted.) Discharge Plan Discharge Chief Complaint: Shortness of Breath/Dyspnea Clinical Impression: Dyspnea, Lung cancer, Bilateral pneumonia, COPD exacerbation, Hypokalemia Patient Disposition: Home, Self-Care Time of Disposition Decision: 15:11 Condition: Fair Prescriptions / Home Meds: New azithromycin 250 mg tablet See Rx Instructions .ROUTE .COMPLEX 5 Days Qty: 6 0RF Rx Instructions: For 250 mg dose pack: take 500 mg today (day 1), then 250 mg for 4 days (days 2-5) amoxicillin-pot clavulanate [Augmentin XR] 1,000-62.5 mg tablet extended release 12 hr 1 tab PO BID 10 Days Qty: 20 0RF uylelnjualaykhb-vtkvqqfwg-HF [Bromfed DM] 2-30-10 mg/5 mL syrup 10 ml PO Q6H PRN (Reason: cold symptoms) Qty: 200 0RF amoxicillin-pot clavulanate [Augmentin] 500-125 mg tablet 1 tab PO TID 10 Days Qty: 30 0RF No Action dexamethasone 1 mg tablet omeprazole 20 mg capsule,delayed release(DR/EC) 40 mg PO DAILY oxycodone 5 mg tablet 5 mg PO Q12H PRN (Reason: pain) Rx Instructions: may take 1 or 2 tabs prochlorperazine maleate 10 mg tablet 10 mg PO Q8H PRN (Reason: nausea and vomiting) aspirin 81 mg tablet,chewable 81 mg PO DAILY atorvastatin 80 mg tablet 80 mg PO DAILY isosorbide mononitrate 30 mg tablet extended release 24 hr 30 mg PO DAILY metoprolol succinate 50 mg tablet extended release 24 hr 50 mg PO Q12H nitroglycerin 0.4 mg tablet, sublingual 0.4 mg sublingual Q5M PRN (Reason: chest pain) Brilinta 90 mg tablet 90 mg PO Q12H Hold Instructions: Doctor's Order albuterol sulfate 90 mcg/actuation aerosol powdr breath activated 2 inh inhalation Q4H PRN (Reason: shortness of breath) Qty: 1 0RF albuterol sulfate [Ventolin HFA] 90 mcg/actuation HFA aerosol inhaler 2 inh inhalation Q6H PRN (Reason: shortness of breath or wheezing) Qty: 6.7 0RF Instructions: Lung Cancer (DC), Hypokalemia (ED), COPD (Chronic Obstructive Pulmonary Disease) (ED), Dyspnea (ED), Pneumonia (ED) Additional Instructions: he had an appointment at 9:00 on with . Take your 1st dose of antibiotics when you fill the prescription today. Use cough medication as needed. Use your PEP THERAPY 10 times every hour while awake Use her inhaler every 4 hours while awake. I initially prescribed Augmentin XR, he stated it was 150$ Prescription. I prescribed Augmentin 600 mg 3 times a day for 10 days to help with cost. Stand Alone Forms: Portal Instructions Referrals: JON STEWART [Primary Care Provider] - 1 week
--- NOTE | 2023-05-23 10:42 | PC.NURSE ---
SPOKE WITH CONCETTA AT DR RODNEY'S OFFICE TO BE SURE PT'S PORT IS INDEED A POWER PORT.
[2023-05-23] MEDS: IPRATROPIUM/ALBUTEROL SULFATE 3 ML AMPUL.NEB IH (10:52)
[2023-05-23] MEDS: ALBUTEROL SULFATE 2.5 MG/3 ML VIAL NEB IH (10:56)
[2023-05-23] MEDS: POTASSIUM BICARBONATE/CIT 25 MEQ TABLET EFF 50 MEQ PO (11:15)
[2023-05-23] MEDS: POTASSIUM CHLORIDE IN 0.9%NACL 1,000 ML 250 MEQ IV (11:16)
[2023-05-23] MEDS: 0.9 % SODIUM CHLORIDE 1,000 ML 1000 ML IV (11:16)
[2023-05-23 11:37] LABS: Alanine Aminotransferase 107 U/L (14-59); Albumin Globulin Ratio 0.5; Albumin Level 2.5 g/dL (3.4-5.0); Alkaline Phosphatase 186 U/L (46-116); Anion Gap 15.1; Aspartate Amino Transferase 104 U/L (15-37); BUN Creatinine Ratio 22.7; Bilirubin Total 0.2 mg/dL (0.2-1.0); Calcium 9.3 mg/dL (8.5-10.1); Carbon Dioxide 27.7 mmol/L (21.0-32.0); Chloride 101 mmol/L (98-107); Estimated GFR (African America >60 (>=60); Estimated GFR (Non-African Ame >60 (>=60); Globulin 4.8 g/dL; Glucose 118 mg/dL (74-106); Sodium 141 mmol/L (136-145); Total Protein 7.3 g/dL (6.4-8.2); Troponin I High Sensitivity 24.8 pg/mL (4.0-51.3)
[2023-05-23 11:41] LABS: Potassium 2.8 mmol/L (3.5-5.1)
--- NOTE | 2023-05-23 11:50 | CT_ITS ---
The [address] [address] Patient Name: JAENMARIE ECHEVARRIA MRN: [id number] date: 1965 Sex: F Assigned Patient Location: ER Current Patient Location: ER Accession/Order Number: [id number] Exam Date: 05/23/2023 11:38 Report Date: 05/23/2023 12:15 At the request of: SERGEY JUÁREZ Procedure: CT angio chest CT angio chest, 05/23/2023 11:38 AM EDT INDICATION: Dyspnea. History of lung cancer. COMPARISON: CT angiography of the chest 02/19/2023 TECHNIQUE: Axial images of the chest were obtained with administration of IV contrast. Multiplanar reformatted images were generated and reviewed as needed. Dose reduction techniques were achieved by using automated exposure control and/or adjustment of mA and/or kV according to patient size and/or use of iterative reconstruction technique. FINDINGS: The visualized thyroid gland is unremarkable. Portacatheter right chest wall with tip in the SVC. Cardiomegaly. No pericardial effusion. No aortic aneurysm. Soft plaque with mild stenosis within the proximal left subclavian artery. No filling defect within the pulmonary arteries. 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 Stent within the left mainstem bronchus is patent. Dense consolidation with air bronchograms within the lingula and left lower lobe. No pleural effusion. No pneumothorax. 3 mm right upper lobe nodule, previously 2 mm (5, 31) Stable 4 mm right left upper lobe pulmonary nodule (5, 17) No acute findings within visualized portions of the upper abdomen. No acute fracture or dislocation. Osteopenia. CT/CT angio chest IMPRESSION: 1. No pulmonary embolism. 2. Dense consolidation within the left upper and lower lobes with air bronchograms. Underlying infection or neoplastic process cannot be excluded. Electronically authenticated by: BOGDAN ALVARES Date: 05/23/2023 12:15
--- NOTE | 2023-05-23 11:53 | PC.NURSE ---
1130 Verified pt has power port with surgical note. Port already accessed from ER and flushes easily with 10 cc NS. Pt given IV contrast during CT and tolerated well. Port flushed with 10 cc NS and clamped. Pt to return to ER for treatment.
[2023-05-23] MEDS: PIPERACILLIN SODIUM/TAZOBACTAM 4.5 GM in 0.9 % SODIUM CHLORIDE 50 ML IV (14:19)
[2023-05-23] MEDS: HEPARIN SODIUM (PORCINE) PF LOCK FLUSH 500 UNIT/5 ML SYRINGE IV (15:51)
== END 2023-05-23 16:35 | disposition home or self-care (01) ==
PROVIDERS: Emergency Provider Emergency Medicine; PCP Family Medicine
DX: J18.9 Pneumonia, unspecified organism (principal); C34.90 Malignant neoplasm of unspecified part of unspecified bronchus or lung; R06.00 Dyspnea, unspecified; E87.6 Hypokalemia; J44.1 Chronic obstructive pulmonary disease with (acute) exacerbation; J44.0 Chronic obstructive pulmonary disease with (acute) lower respiratory infection; Z79.899 Other long term (current) drug therapy; Z79.82 Long term (current) use of aspirin; Z87.891 Personal history of nicotine dependence
CPT/HCPCS: 36415; 71275; 80048; 80053; 83880; 84484; 85027; 93005; 94640; 94667; 96365; 96366; 96368; 96375; 99285; G0463; Q9967

== ENCOUNTER 2023-05-29 18:20 | Inpatient (IN) | payer OTHER, SELFPAY ==
[2023-05-29] VITALS (42 sets, daily range): BP systolic 90–129; BP diastolic 64–101; PULSE 107–165; RESP 5–44; TEMP 36.4–36.6; O2SAT 88–98; BMI 26.6; BMI 25.9
--- NOTE | 2023-05-29 18:37 | ECG_ITS ---
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
--- NOTE | 2023-05-29 18:38 | CT_ITS ---
The [address] [address] Patient Name: JEANMARIE ECHEVARRIA MRN: [id number] date: 1965 Sex: F Assigned Patient Location: ER Current Patient Location: [facility] Accession/Order Number: [id number] Exam Date: 05/29/2023 19:50 Report Date: 05/29/2023 21:25 At the request of: MIN DE LA CRUZ Procedure: CT angio chest EXAMINATION: CHEST CT WITH CONTRAST (PULMONARY EMBOLISM PROTOCOL) Indication: PE Technique: Spiral CT acquisition of the chest from the thoracic inlet to the upper abdomen following IV contrast. Maximum intensity projection (MIP)reconstructions were performed. All CT scans at this facility use dose modulation, iterative reconstruction, and/or weight based dosing when appropriate to reduce radiation dose to as low as reasonably achievable. Contrast: 100 mL of Omnipaque 350 IV Comparison: CT chest 05/23/2023 RESULT: Limitations: None. Evaluation for thromboembolic disease: - Right heart chambers: No thromboembolic disease. - Main pulmonary arteries: No thromboembolic disease. - Lobar pulmonary arteries: No thromboembolic disease. - Segmental pulmonary arteries: No thromboembolic disease. - Subsegmental pulmonary arteries: No thromboembolic disease. Lines, tubes, and devices: None. Lung parenchyma and pleura: Redemonstration left main bronchus stent, with attenuation of the proximal left main bronchus and retained material in situ. Stable lingula and left lower lobe consolidative opacity with air bronchograms, likely secondary to a combination of atelectasis and pneumonic infiltrates. There are stable mild groundglass opacities. No pneumothorax. No pleural effusion. Right basal atelectasis. Stable left hemidiaphragmatic elevation Thoracic inlet, heart, and mediastinum: No lymphadenopathy in the axillary, mediastinal, or hilar regions. The thoracic aorta and main pulmonary artery are normal in caliber. Mild atherosclerotic vascular thoracic aorta. Mild cardiomegaly. No coronary artery atherosclerotic calcifications are noted, although the study is not optimized for coronary assessment. No pericardial effusion or thickening. Thyroid gland is unremarkable. Esophagus is nondilated. Bones and soft tissues: No destructive bone lesion. Chest wall is unremarkable. Mild degenerative changes of thoracic spine. Upper abdomen: Focal fat at the hepatic falciform ligament. . CT/CT angio chest IMPRESSION: 1. No CT evidence of pulmonary embolism. 2. Stable left main bronchus stent, with caliber attenuation along its proximal aspect and retained secretions in situ. 3. Stable left lower lobe lobe and lingular consolidative opacity, likely secondary to combination of atelectasis and pneumonic infiltrates. Findings are not significantly changed since 05/23/2023. Electronically authenticated by: JAKOB WALLACE Date: 05/29/2023 21:25
--- NOTE | 2023-05-29 18:51 | PC.NURSE ---
chest port accessed
[2023-05-29] MEDS: LORAZEPAM 2 MG/ML 1 ML VIAL 1 MG IV (18:58)
[2023-05-29] MEDS: METHYLPREDNISOLONE SOD SUCC PF 125 MG/2 ML VIAL IVP (18:59)
[2023-05-29] MEDS: IPRATROPIUM/ALBUTEROL SULFATE 3 ML AMPUL.NEB IH (19:15)
[2023-05-29 19:24] LABS: ABG PCO2 28.5 mmHg (35.0-45.0); Allen Test POSITIVE (POSITIVE); HCO3 ABG 24.5 mmol/L (22.0-26.0); O2 Mode NASAL CANNULA; Oxygen Saturation ABG 90.4 %; PO2 ABG 55.9 mmHg (80.0-100.0)
[2023-05-29 19:25] LABS: Liters per Minute 2; Puncture Site L RADIAL; pH ABG 7.543 (7.350-7.450)
--- NOTE | 2023-05-29 19:30 | RESP.RT ---
decreased to 30L on vapotherm at this time
[2023-05-29 19:32] LABS: Hematocrit 41.6 % (36.0-48.0); Mean Corpuscular HGB Conc 33.7 g/dL (29.9-35.2); Mean Corpuscular Hemoglobin 31.5 pg (26.7-34.0); Mean Corpuscular Volume 93.7 fL (81.0-99.0); Mean Platelet Volume 10.2 fL (9.5-13.5); Platelet Count 414 10^3/uL (150-450); Red Blood Count 4.44 10^6/uL (4.20-5.40); Red Cell Distribution Width 22.3 % (11.0-15.0); White Blood Count 22.8 10^3/uL (4.0-11.0)
[2023-05-29 19:53] LABS: INR 0.99; Partial Thromboplastin Time 24.8 sec (22.3-36.2); Prothrombin Time 10.5 sec (9.0-11.6)
[2023-05-29 20:25] LABS: Lymphocytes Absolute Manual 2.28 10^3/uL (1.20-3.80); Monocytes Absolute Manual 1.14 10^3/uL (0.30-0.80); Segmented Neut Absolute Manual 21.66 10^3/uL (1.4-6.5)
[2023-05-29 20:35] LABS: Alanine Aminotransferase 74 U/L (14-59); Albumin Globulin Ratio 0.6; Albumin Level 3.1 g/dL (3.4-5.0); Alkaline Phosphatase 199 U/L (46-116); Anion Gap 20.1; Aspartate Amino Transferase 61 U/L (15-37); Bilirubin Total 0.6 mg/dL (0.2-1.0); Calcium 9.8 mg/dL (8.5-10.1); Carbon Dioxide 20.2 mmol/L (21.0-32.0); Chloride 100 mmol/L (98-107); Estimated GFR (African America >60 (>=60); Estimated GFR (Non-African Ame 51 (>=60); Globulin 5.3 g/dL; Glucose 145 mg/dL (74-106); Potassium 5.3 mmol/L (3.5-5.1); Sodium 135 mmol/L (136-145); Total Protein 8.4 g/dL (6.4-8.2)
[2023-05-29 20:44] LABS: BUN Creatinine Ratio 16.1
[2023-05-29] MEDS: VANCOMYCIN HCL 1,000 MG in 0.9 % SODIUM CHLORIDE 500 ML 250 MG IV (21:06)
[2023-05-29] MEDS: PIPERACILLIN SODIUM/TAZOBACTAM 4.5 GM in 0.9 % SODIUM CHLORIDE 50 ML IV (21:06)
--- NOTE | 2023-05-29 22:02 | ED_ITS ---
HPI - SOB/Dyspnea General Chief Complaint: Shortness of Breath/Dyspnea Stated Complaint: shortness of breath Time Seen by Provider: 05/29/23 18:37 Source: patient Mode of arrival: Wheelchair History of Present Illness HPI Narrative: patient is a 57-year-old female with a history of coronary artery disease, recent diagnosis of lung cancer and chronic obstructive pulmonary disease who presents to the emergency department for an abrupt onset of significant shortness of breath. Patient has significant tachypnea and tachycardia at initial interview. She currently has a pulmonary stent in place related to a mediastinal mass that was discovered on an incidental CT several months ago. She has seen pulmonology and oncology locally, she does not currently receiving any chemotherapy or radiation. She was seen in this emergency department last week for shortness of breath and tachycardia that was noted at an outpatient oncology clinic and she was brought to the Emergency Room, found to have suggestion of pneumonia on a scan of her chest and was discharged home hemodynamically stable on antibiotics and steroids. She has not had a bronchoscopy since January when she was initially diagnosed. She has not taken her Brillnta in several months. She denies chest pain, leg swelling. She has had no fevers or hemoptysis. Related Data Home Medications Medication Instructions Recorded Confirmed aspirin 81 mg chewable tablet 81 mg PO DAILY 02/02/23 05/29/23 atorvastatin 80 mg tablet 80 mg PO DAILY 02/02/23 05/29/23 isosorbide mononitrate 30 mg 30 mg PO DAILY 02/02/23 05/29/23 tablet,extended release 24 hr metoprolol succinate 50 mg 50 mg PO Q12H 02/02/23 05/29/23 tablet,extended release 24 hr nitroglycerin 0.4 mg sublingual 0.4 mg sublingual Q5M PRN chest 02/02/23 05/29/23 tablet pain ticagrelor 90 mg tablet (Brilinta) 90 mg PO Q12H 02/02/23 05/29/23 omeprazole 20 mg capsule,delayed 40 mg PO DAILY 05/09/23 05/29/23 release oxycodone 5 mg tablet 5 mg PO Q12H PRN pain 05/09/23 05/29/23 prochlorperazine maleate 10 mg 10 mg PO Q8H PRN nausea and 05/09/23 05/29/23 tablet vomiting benzonatate 200 mg capsule 200 mg PO TID PRN cough 05/29/23 05/29/23 pcfqwwumbyeiscc-fvsnkaliywlggvu-HW 10 ml PO Q6H PRN cough 05/29/23 05/29/23 2 mg-30 mg-10 mg/5 mL oral syrup bupropion HCl 150 mg 24 hr tablet, 150 mg PO DAILY 05/29/23 05/29/23 extended release Previous Rx's Medication Instructions Recorded albuterol sulfate 90 mcg/actuation 2 inh inhalation Q4H PRN shortness 02/02/23 breath activated powder inhaler of breath #1 ea albuterol sulfate 90 mcg/actuation 2 inh inhalation Q6H PRN shortness 02/21/23 aerosol inhaler (Ventolin HFA) of breath or wheezing #6.7 grams amoxicillin-potassium clavulanate 1 tab PO BID 10 days #20 tabs 05/23/23 1,000 mg-62.5 mg tablet,ext.rel 12hr (Augmentin XR) Allergies Allergy/AdvReac Type Severity Reaction Status Date / Time No Known Drug Allergies Allergy Verified 05/23/23 10:15 Review of Systems ROS Constitutional Denies: fever or chills Ears, nose, mouth, and throat Denies: throat pain Cardiovascular Denies: chest pain Respiratory Reports: shortness of breath and cough Gastrointestinal Denies: nausea or vomiting Musculoskeletal Denies: back pain Integumentary/Breast Denies: rash Neurological Denies: headache Endocrine Denies: excessive urination Hematologic/Lymphatic Denies: easy bruising PFSH PFSH Medical History Surgical History Family History Mother Family history of CHF (congestive heart failure) Family history of diabetes mellitus Family history of hypertension Family history of myocardial infarction Social History (Updated 05/29/23 @ 23:24 by Lolly Jorge) Within the past year, how often did you have a drink containing alcohol: never Score interpretation: A score less than 3 is consistent with normal alcohol consumption. Smoking status: Former smoker Second hand tobacco smoke exposure: Yes Non-prescribed substance use: denies use Previous occupational history: Does not work Known occupational exposures/hazards: No Highest level of school completed/degree received: high school graduate Do you want help with school or training: No Are you now , , , , never or living with a partner: In a typical week, how many times do you talk on the telephone with family, friends, or neighbors: never How often do you get together with friends or relatives: never How often do you attend presybeterian or rastafarian services: never Do you belong to any clubs or organizations such as [employer] groups unions, [employer] or athletic groups, or school groups: no Total score: 1 Score interpretation: A score of less than or equal to 1 indicates the most socially isolated. Little interest or pleasure in doing things: several days Feeling down, depressed, or hopeless: several days Feel stressed/tense/nervous/anxious/difficulty sleeping: very much Life stressors: other Life stressor details: Due to disability, difficulty making decisions: No Do you think of yourself as: straight/heterosexual Gender Identity: female Exam Narrative Exam Narrative: Gen.: Awake, alert, in no distress Head: Normocephalic, atraumatic ENT: Moist mucous membranes Respiratory: significant tachypnea, diminished lung sounds globally Cardio: tachycardia Gastrointestinal: Abdomen is soft, nondistended and nontender to palpation Extremities: Moves extremities equally, no peripheral edema Psych: Normal mood and affect Neuro: No focal neuro deficit Skin: Warm, dry, intact Constitutional Vital Signs, click to edit/add: Last Vital Signs Temp 97.6 F 05/29/23 23:08 Pulse 85 05/30/23 06:13 Resp 22 05/30/23 06:10 BP 117/82 05/30/23 02:09 Pulse Ox 90 L 05/30/23 06:10 O2 Del Method Nasal Cannula 05/30/23 05:05 O2 Flow Rate 5 05/30/23 06:10 FiO2 40 05/29/23 19:30 Course Vital Signs Vital signs: Vital Signs Pulse Oximetry 89 L 05/29/23 18:32 Temperature 97.6 F 05/29/23 23:08 Pulse Rate 85 05/30/23 06:13 Respiratory Rate 22 05/30/23 06:10 Blood Pressure 117/82 05/30/23 02:09 Pulse Oximetry 90 L 05/30/23 06:10 Oxygen Delivery Method Nasal Cannula 05/30/23 05:05 Oxygen Delivery Flow Rate 5 05/30/23 06:10 Fraction of Inspired Oxygen 40 05/29/23 19:30 MDM - SOB/Dyspnea MDM Narrative Medical decision making narrative: on arrival to the Emergency Room, patient was immediately placed in a room with IV placement, oxygen by nasal cannula and she was noted to be hypoxic. Soon after arrival, patient was placed on Vapotherm with significant improvement of her breathing. She continues to be tachycardic, she states she has a history of tachycardia. She was given IV fluids, Solu-Medrol, breathing treatment. Lab studies show leukocytosis, elevated BNP, elevated troponin. Patient has no complaints of chest pain in the Emergency Room. CT angiogram of the chest was performed due to the patient's abrupt onset of significant shortness of breath and significant tachycardia. This shows no evidence of PE, the patient does have stable to slightly worsened infiltrates in the left lower lobe, she was treated with Zosyn and vancomycin in the Emergency Room. Blood cultures and sputum culture obtained. I discussed the case with the hospitalist, Dr. Buckner, if troponin remained stable and the patient can be admitted to this facility for further evaluation and treatment. Medical Records Attestation: I reviewed the patient's medical records. Lab Data Attestation: I reviewed the patient's lab results. Labs: Lab Results 05/29/23 05/29/23 05/29/23 Range/Units 18:45 19:05 21:44 WBC 22.8 H (4.0-11.0) 10^3/uL RBC 4.44 (4.20-5.40) 10^6/uL Hgb 14.0 (12.0-16.0) g/dL Hct 41.6 (36.0-48.0) % MCV 93.7 (81.0-99.0) fL MCH 31.5 (26.7-34.0) pg MCHC 33.7 (29.9-35.2) g/dL RDW 22.3 H (11.0-15.0) % Plt Count 414 (150-450) 10^3/uL MPV 10.2 (9.5-13.5) fL Seg Neuts % (Manual) 95.0 Lymphocytes % (Manual) 10.0 L (20.5-60.0) % Monocytes % (Manual) 5.0 (1.7-12.0) % Eosinophils % (Manual) 0.0 L (0.9-7.0) % Basophils % (Manual) 0.0 L (0.2-2.0) % Neutrophils # (Manual) 21.66 H (1.4-6.5) 10^3/uL Lymphocytes # (Manual) 2.28 (1.20-3.80) 10^3/uL Monocytes # (Manual) 1.14 H (0.30-0.80) 10^3/uL Eosinophils # (Manual) 0.00 (0.00-0.70) 10^3/uL Basophils # (Manual) 0.00 (0.00-0.10) 10^3/uL PT 10.5 (9.0-11.6) sec INR 0.99 APTT 24.8 (22.3-36.2) sec Puncture Site L radial ABG pH 7.543 H* (7.350-7.450) ABG pCO2 28.5 L (35.0-45.0) mmHg ABG pO2 55.9 L (80.0-100.0) mmHg ABG HCO3 24.5 (22.0-26.0) mmol/L ABG O2 Saturation 90.4 % ABG Base Excess 2.0 (-2.0-2.0) mmol/L Michael Test Positive (POSITIVE) O2 Liters/Min 2 Sodium 135 L (136-145) mmol/L Potassium 5.3 H (3.5-5.1) mmol/L Chloride 100 (98-107) mmol/L Carbon Dioxide 20.2 L (21.0-32.0) mmol/L Anion Gap 20.1 BUN 18.0 (7.0-18.0) mg/dL Creatinine 1.12 H (0.55-1.02) mg/dL Est GFR ( Amer) >60 (>=60) Est GFR (Non-Af Amer) 51 L (>=60) BUN/Creatinine Ratio 16.1 Glucose 145 H (74-106) mg/dL Calcium 9.8 (8.5-10.1) mg/dL Total Bilirubin 0.6 (0.2-1.0) mg/dL AST 61 H (15-37) U/L ALT 74 H (14-59) U/L Alkaline Phosphatase 199 H (46-116) U/L Troponin I High Sens 53.0 H* 68.9 H* (4.0-51.3) pg/mL NT-Pro-B Natriuret Pep 1975.0 H* (<=900.0) pg/mL Total Protein 8.4 H (6.4-8.2) g/dL Albumin 3.1 L (3.4-5.0) g/dL Globulin 5.3 g/dL Albumin/Globulin Ratio 0.6 Isra H. influenza (PCR) Not detected (NOT DETECTE) A.calcoaceticus-baumannii cmplx PCR Not detected (NOT DETECTE) Bacteroides fragilis Not detected (NOT DETECTE) Kaylee albicans (PCR) Not detected (NOT DETECTE) Kaylee auris (PCR) Not detected (NOT DETECTE) C. glabrata (PCR) Not detected (NOT DETECTE) C. krusei (PCR) Not detected (NOT DETECTE) C. parapsilosis (PCR) Not detected (NOT DETECTE) C. tropicalis (PCR) Not detected (NOT DETECTE) C. neoform/gattii (PCR) Not detected (NOT DETECTE) Enterobacterales (PCR) Not detected (NOT DETECTE) E. cloacae complex PCR Not detected (NOT DETECTE) Enterococc faecalis PCR Not detected (NOT DETECTE) Enterococc faecium PCR Not detected (NOT DETECTE) E. coli (PCR) Not detected (NOT DETECTE) Klebsiella aerogenes (PCR) Not detected (NOT DETECTE) Klebsiella oxytoca PCR Not detected (NOT DETECTE) K. pneumoniae group (PCR) Not detected (NOT DETECTE) List. monocytogenes PCR Not detected (NOT DETECTE) N. meningitidis (PCR) Not detected (NOT DETECTE) Proteus spp. (copies/mL) Not detected (NOT DETECTE) Salmonella spp. (PCR) Not detected (NOT DETECTE) Serratia marcescens PCR Not detected (NOT DETECTE) Staphylococcus sp PCR Not detected (NOT DETECTE) Staph aureus (PCR) Not detected (NOT DETECTE) mecA/C & MREJ Resist Gene Not applicable (NOT DETECTE) mecA/C-Methicil Resis Gene Not applicable (NOT DETECTE) mcr-1 Colistin Res Gene PCR Not applicable (NOT DETECTE) Staph epidermidis (PCR) Not detected (NOT DETECTE) Staph lugdunensis (TEM-PCR) Not detected (NOT DETECTE) S. maltophilia (PCR) Not detected (NOT DETECTE) Streptococcus sp PCR Not detected (NOT DETECTE) Strep agalactiae (PCR) Not detected (NOT DETECTE) Strep pneumoniae (PCR) Not detected (NOT DETECTE) S. pyogenes (PCR) Not detected (NOT DETECTE) P. aeruginosa (PCR) Not detected (NOT DETECTE) Dominik/B-Vanco Res Genes Not applicable (NOT DETECTE) blaIMP Car res Gene PCR Not applicable (NOT DETECTE) KPC (blaKPC) Detect PCR Not applicable (NOT DETECTE) NDM (blaNDM) Detect PCR Not applicable (NOT DETECTE) OXA-48 Carbapenem Resis Gene (PCR) Not applicable (NOT DETECTE) blaVIM Car Res Gene PCR Not applicable (NOT DETECTE) CTX-M ESBL (PCR) Not applicable (NOT DETECTE) ABG Data Attestation: I have reviewed the pertinent ABG results. Imaging Data CT scan - chest: Attestation: I have reviewed the pertinent imaging results. Radiologist's impression: Procedure: CT angio chest EXAMINATION: CHEST CT WITH CONTRAST (PULMONARY EMBOLISM PROTOCOL) Indication: PE Technique: Spiral CT acquisition of the chest from the thoracic inlet to the upper abdomen following IV contrast. Maximum intensity projection (MIP)reconstructions were performed. All CT scans at this facility use dose modulation, iterative reconstruction, and/or weight based dosing when appropriate to reduce radiation dose to as low as reasonably achievable. Contrast: 100 mL of Omnipaque 350 IV Comparison: CT chest 05/23/2023 RESULT: Limitations: None. Evaluation for thromboembolic disease: - Right heart chambers: No thromboembolic disease. - Main pulmonary arteries: No thromboembolic disease. - Lobar pulmonary arteries: No thromboembolic disease. - Segmental pulmonary arteries: No thromboembolic disease. - Subsegmental pulmonary arteries: No thromboembolic disease. Lines, tubes, and devices: None. Lung parenchyma and pleura: Redemonstration left main bronchus stent, with attenuation of the proximal left main bronchus and retained material in situ. Stable lingula and left lower lobe consolidative opacity with air bronchograms, likely secondary to a combination of atelectasis and pneumonic infiltrates. There are stable mild groundglass opacities. No pneumothorax. No pleural effusion. Right basal atelectasis. Stable left hemidiaphragmatic elevation Thoracic inlet, heart, and mediastinum: No lymphadenopathy in the axillary, mediastinal, or hilar regions. The thoracic aorta and main pulmonary artery are normal in caliber. Mild atherosclerotic vascular thoracic aorta. Mild cardiomegaly. No coronary artery atherosclerotic calcifications are noted, although the study is not optimized for coronary assessment. No pericardial effusion or thickening. Thyroid gland is unremarkable. Esophagus is nondilated. Bones and soft tissues: No destructive bone lesion. Chest wall is unremarkable. Mild degenerative changes of thoracic spine. Upper abdomen: Focal fat at the hepatic falciform ligament. . IMPRESSION: 1. No CT evidence of pulmonary embolism. 2. Stable left main bronchus stent, with caliber attenuation along its proximal aspect and retained secretions in situ. 3. Stable left lower lobe lobe and lingular consolidative opacity, likely secondary to combination of atelectasis and pneumonic infiltrates. Findings are not significantly changed since 05/23/2023. Electronically authenticated by: JAKOB WALLACE Date: 05/29/2023 21:25 ECG Data Attestation: I personally reviewed and interpreted this ECG as follows: (sinus tachycardia at a rate of 160, artifact noted with no obvious acute ST elevation or ectopy. EKG reviewed by attending physician) ECG interpretation date: 05/29/23 Discharge Plan Discharge Chief Complaint: Shortness of Breath/Dyspnea Clinical Impression: Acute dyspnea, Tachycardia, Sepsis, Acute respiratory distress, Pneumonia Patient Disposition: Admitted As Inpatient Time of Disposition Decision: 22:15 Condition: Good Discharge Date/Time: 05/29/23 22:58
[2023-05-29 22:36] LABS: Troponin I High Sensitivity 68.9 pg/mL (4.0-51.3)
[2023-05-29 23:48] LABS: A. calcoaceticus-baumannii Cpx NOT DETECTED (NOT DETECTE); Bacteroides fragilis NOT DETECTED (NOT DETECTE); Candida albicans NOT DETECTED (NOT DETECTE); Candida auris NOT DETECTED (NOT DETECTE); Candida glabrata NOT DETECTED (NOT DETECTE); Candida krusei NOT DETECTED (NOT DETECTE); Candida parapsilosis NOT DETECTED (NOT DETECTE); Candida tropicalis NOT DETECTED (NOT DETECTE); Cryptococcus neoformans/gattii NOT DETECTED (NOT DETECTE); Enterobacter cloacae complex NOT DETECTED (NOT DETECTE); Enterobacterales NOT DETECTED (NOT DETECTE); Enterococcus faecalis NOT DETECTED (NOT DETECTE); Enterococcus faecium NOT DETECTED (NOT DETECTE); Haemophilus influenzae NOT DETECTED (NOT DETECTE); Klebsiella aerogenes NOT DETECTED (NOT DETECTE); Klebsiella pneumoniae group NOT DETECTED (NOT DETECTE); Listeria monocytogenes NOT DETECTED (NOT DETECTE); Neisseria meningitidis NOT DETECTED (NOT DETECTE); Proteus spp. NOT DETECTED (NOT DETECTE); Pseudomonas aeruginosa NOT DETECTED (NOT DETECTE); Salmonella spp. NOT DETECTED (NOT DETECTE); Serratia marcescens NOT DETECTED (NOT DETECTE); Staphylococcus epidermidis NOT DETECTED (NOT DETECTE); Staphylococcus lugdunensis NOT DETECTED (NOT DETECTE); Staphylococcus spp. NOT DETECTED (NOT DETECTE); Stenotrophomonas maltophilia NOT DETECTED (NOT DETECTE); Streptococcus agalactiae NOT DETECTED (NOT DETECTE); Streptococcus pneumoniae NOT DETECTED (NOT DETECTE); Streptococcus pyogenes NOT DETECTED (NOT DETECTE); Streptococcus spp. NOT DETECTED (NOT DETECTE)
[2023-05-30] VITALS (125 sets, daily range): BP systolic 91–124; BP diastolic 70–86; PULSE 75–140; RESP 6–29; TEMP 36.9–37; O2SAT 87–98
[2023-05-30] MEDS: FUROSEMIDE 40 MG/4 ML VIAL IVP (02:00)
[2023-05-30] MEDS: METHYLPREDNISOLONE SOD SUCC PF 125 MG/2 ML VIAL IVP (02:00)
[2023-05-30] MEDS: GUAIFENESIN 600 MG TAB.ER.12H PO ×3 (02:00→21:17)
[2023-05-30] MEDS: METOPROLOL SUCCINATE 50 MG TAB.ER.24H PO ×3 (02:01→21:17)
--- NOTE | 2023-05-30 02:04 | W.PM.TELEPN ---
Progress Note: Subjective Subjective Interval history: The patient is a 57-year-old female who was recently diagnosed with stage III lung cancer after being noted to have a mediastinal mass on a CT of the chest. Since then, she has undergone a pulmonary stent placement. She has also been on outpatient antibiotics with Augmentin for possible pneumonia. She was supposed to have a bronchoscopy done as an outpatient however that has not been done yet. Today, she had developed sudden onset of chest pain. She has been placed on home oxygen therapy but does not have a travel canister. She presented to the ED and was noted to have a heart rate of 160 and significant hypoxia requiring Vapotherm and 40 L of oxygen . The patient underwent a CT angiogram and it showed persistent pneumonia. She was started on Zosyn and vancomycin and is being admitted for further evaluation. Exam Narrative Exam Narrative: General : Alert and oriented x3 HEENT : Extraocular movements intact, pupils equal round and reactive to light and accommodation Neck: Supple, no JVD Chest: Scattered rhonchi throughout both lung fletcher. Heart: Regular rate and rhythm, S1 and S2 heard Abdomen: Soft nontender nondistended. Extremities: No clubbing cyanosis or edema Neurologically: Moving all 4 extremities Skin: No rashes Constitutional Vital Signs, click to edit/add: Last Vital Signs Temp 97.6 F 05/29/23 23:08 Pulse 101 H 05/30/23 01:40 Resp 20 05/30/23 01:40 BP 106/79 05/29/23 23:08 Pulse Ox 88 L 05/30/23 01:40 O2 Del Method Nasal Cannula 05/29/23 23:25 O2 Flow Rate 4 05/30/23 01:40 FiO2 40 05/29/23 19:30 Progress Note: Objective Labs Labs: Short CBC 05/29/23 Range/Units 18:45 WBC 22.8 H (4.0-11.0) 10^3/uL Hgb 14.0 (12.0-16.0) g/dL Hct 41.6 (36.0-48.0) % Plt Count 414 (150-450) 10^3/uL BMP 05/29/23 18:45 Sodium 135 L Potassium 5.3 H Chloride 100 Carbon Dioxide 20.2 L BUN 18.0 Creatinine 1.12 H Glucose 145 H Calcium 9.8 Liver Function 05/29/23 Range/Units 18:45 Total Bilirubin 0.6 (0.2-1.0) mg/dL AST 61 H (15-37) U/L ALT 74 H (14-59) U/L Alkaline Phosphatase 199 H (46-116) U/L Albumin 3.1 L (3.4-5.0) g/dL Progress Note: A&P Assessment and Plan (1) Lung cancer: (2) Bilateral pneumonia: Plan The patient is a 57-year-old female with above medical problems, presenting with acute respiratory insufficiency likely secondary to postobstructive pneumonia. Postobstructive pneumonia -Provide supportive care -Nebulizers as needed -Empiric Zosyn, vancomycin, Levaquin -Check sputum culture -Mucinex -Pulmonary consult, consider bronchoscopy Elevated troponin -Likely demand ischemia -Continue aspirin -Monitor on telemetry -Follow-up troponin Possible CHF exacerbation -Type unknown -Give 1 dose of IV Lasix, may help improve respiratory status -Follow-up BNP Coronary artery disease -Continue Brilinta and home medications DVT Prophylaxis -Brilinta Medication review -Medication reconciliation form completed Goals of care -Full code Communications -Discussed with the emergency room physician -Discussed with the bedside nurse -Patient updated of plan of care, all questions answered to their satisfaction Disposition -Home when medically stable Telemedicine clause -As the provider of this telehealth evaluation, requested by the patient's evaluating physician, I attest that I introduced myself to the patient, provided my credentials and determined that telemedicine via a real-time, two-way interactive audio and video platform is an appropriate and effective means of providing this service. -I reviewed the patient's chart and had a discussion with the member of the patient's treatment team. -The patient and I mutually agreed with continuation of this evaluation via telemedicine. The patient consented for the telemedicine evaluation. -This virtual encounter was taken place from [place], [place]. The encounter was approximately 35 minutes. The nurse was present during the entire time of the encounter and was able to remove the stethoscope and appropriate directions. The patient was evaluated at [facility] Telemedicine Attestation Telemedicine Attestation I conducted this encounter from [] via secure live, [id number] video conference with the patient, located at [facility] with []. Prior to the interview, the risks and benefits of telemedicine were discussed with the patient and verbal consent was obtained.
[2023-05-30] MEDS: OXYCODONE HCL 5 MG TABLET PO (02:08)
[2023-05-30] MEDS: LEVOFLOXACIN IN DEXTROSE 5 % 750 MG/150 ML PIGGYBACK IV (02:08)
[2023-05-30] MEDS: TICAGRELOR 90 MG TABLET PO ×3 (02:08→21:17)
[2023-05-30] MEDS: PIPERACILLIN SODIUM/TAZOBACTAM 3.375 GM in 0.9 % SODIUM CHLORIDE 50 ML IV ×3 (04:41→22:38)
--- NOTE | 2023-05-30 08:01 | P.PLCN_ITS ---
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 She was having a more difficult time breathing and exp ectorating secretions when seen by Dr. Rodriguez in the office last week (05/23/2023). She was referred to the ER. Chest CTA did not show any significant mucus plugging, but there were infiltrates consistent with pneumonia in the LLL and lingula. Vitals were stable and she was discharged from the ER on Augmentin and a Z-Rios. She was seen by me outpatient on 05/25/2023. She was hypoxic that date, and I ordered her O2 (which she received and has been using) as well as a nebulizer with bronchodilators. She states she has not been feeling any better since seen by me. She has continued to have dyspnea and non- productive coughing. She says she had sweats at home. She felt poorly enough she returned to the ER last evening. She was hypoxic despite supplemental O2. A repeat chest CTA was performed. The infiltrates did not appear worse, but there are some retained secretions in the left main endobronchial stent (no overt mucus plugging however). Reviewed labs - there is a significant worsening present, including WBC which increased to 22k (which was normal on 05/23/2023 - I did not prescribe any steroids for her), and lactate of 3, indicating severe sepsis. ABG was consistent with an acute respiratory alkalosis secondary to hypoxia. She was admitted to the ICU for further monitoring and treatment. Review of Systems ROS Status of ROS 10 or more systems reviewed and unremarkable except as noted in history and below Constitutional Reports: chills and night sweats Ears, nose, mouth, and throat Denies: throat pain or difficulty swallowing Cardiovascular Denies: chest pain Respiratory Reports: shortness of breath, cough, wheezing and chest congestion [facility] Medical History (Updated 05/30/23 @ 08:09 by Radames Nair DO) CAD (coronary artery disease) ?I25.10 - Atherosclerotic heart disease of [place] coronary artery without angina pectoris (ICD-10) COPD (chronic obstructive pulmonary disease) ?J44.9 - Chronic obstructive pulmonary disease, unspecified (ICD-10) Emphysema lung ?J43.9 - Emphysema, unspecified (ICD-10) Hernia ?K46.9 - Unspecified abdominal hernia without obstruction or gangrene (ICD- 10) HTN (hypertension) ?I10 - Essential (primary) hypertension (ICD-10) Hyperlipemia ?E78.5 - Hyperlipidemia, unspecified (ICD-10) IBS (irritable colon syndrome) ?K58.9 - Irritable bowel syndrome without diarrhea (ICD-10) Tobacco abuse ?Z72.0 - Tobacco use (ICD-10) Surgical History H/O colectomy ?Z90.49 - Acquired absence of other specified parts of digestive tract (ICD- 10) H/O: hysterectomy ?Z90.710 - Acquired absence of both cervix and uterus (ICD-10) History of PTCA ?Z98.61 - Coronary angioplasty status (ICD-10) Family History Mother Family history of CHF (congestive heart failure) Family history of diabetes mellitus Family history of hypertension Family history of myocardial infarction Social History Within the past year, how often did you have a drink containing alcohol: never Score interpretation: A score less than 3 is consistent with normal alcohol consumption. Smoking status: Former smoker Second hand tobacco smoke exposure: Yes Non-prescribed substance use: denies use Previous occupational history: Does not work Known occupational exposures/hazards: No Highest level of school completed/degree received: high school graduate Do you want help with school or training: No Are you now , , , , never or living with a partner: In a typical week, how many times do you talk on the telephone with family, friends, or neighbors: never How often do you get together with friends or relatives: never How often do you attend catholic or jain services: never Do you belong to any clubs or organizations such as catholic groups unions, fraternal or athletic groups, or school groups: no Total score: 1 Score interpretation: A score of less than or equal to 1 indicates the most socially isolated. Little interest or pleasure in doing things: several days Feeling down, depressed, or hopeless: several days Feel stressed/tense/nervous/anxious/difficulty sleeping: very much Life stressors: other Life stressor details: Due to disability, difficulty making decisions: No Do you think of yourself as: straight/heterosexual Gender Identity: female Meds Home Medications and Allergies Home Medications Medication Instructions Recorded Confirmed Type albuterol sulfate 90 mcg/actuation 2 inh inhalation Q4H PRN shortness 02/02/23 05/29/23 Rx breath activated powder inhaler of breath #1 ea aspirin 81 mg chewable tablet 81 mg PO DAILY 02/02/23 05/29/23 History atorvastatin 80 mg tablet 80 mg PO .qhs 02/02/23 05/30/23 History isosorbide mononitrate 30 mg 30 mg PO DAILY 02/02/23 05/29/23 History tablet,extended release 24 hr metoprolol succinate 50 mg 50 mg PO BID 02/02/23 05/30/23 History tablet,extended release 24 hr nitroglycerin 0.4 mg sublingual 0.4 mg sublingual Q5M PRN chest 02/02/23 05/29/23 History tablet pain ticagrelor 90 mg tablet (Brilinta) 90 mg PO BID 02/02/23 05/30/23 History omeprazole 20 mg capsule,delayed 40 mg PO DAILY 05/09/23 05/29/23 History release oxycodone 5 mg tablet 5 mg PO Q12H PRN pain 05/09/23 05/29/23 History prochlorperazine maleate 10 mg 10 mg PO Q8H PRN nausea and 05/09/23 05/29/23 History tablet vomiting amoxicillin-potassium clavulanate 1 tab PO BID 10 days #20 tabs 05/23/23 05/29/23 Rx 1,000 mg-62.5 mg tablet,ext.rel 12hr (Augmentin XR) benzonatate 200 mg capsule 200 mg PO TID PRN cough 05/29/23 05/29/23 History fpjoecokwytvqut-pxxlpoktwfwnvxp-MC 10 ml PO Q6H PRN cough 05/29/23 05/29/23 History 2 mg-30 mg-10 mg/5 mL oral syrup bupropion HCl 150 mg 24 hr tablet, 150 mg PO DAILY 05/29/23 05/29/23 History extended release Allergies Allergy/AdvReac Type Severity Reaction Status Date / Time No Known Drug Allergies Allergy Verified 05/23/23 10:15 Exam Constitutional Vital Signs, click to edit/add: Last Vital Signs Temp 97.6 F 05/29/23 23:08 Pulse 85 05/30/23 06:13 Resp 22 05/30/23 06:10 BP 117/82 05/30/23 02:09 Pulse Ox 90 L 05/30/23 06:10 O2 Del Method Nasal Cannula 05/30/23 05:05 O2 Flow Rate 5 05/30/23 06:10 FiO2 40 05/29/23 19:30 Documenting provider has reviewed patient's vital signs: yes General appearance: cooperative and ill appearing acutely; not comfortable Orientation/consciousness: Yes awake HENMT Other: No oral candidiasis. Mallampati III. Chest Common normals: inspection of chest normal and palpation of chest normal Respiratory Other: Frequently coughing. Rhonchi in left lung. Faint expiratory wheeze on right. No egophony. Could not appreciate increased tactile fremitus. Cardio Rate: regular rate Rhythm: regular rhythm GI Inspection: normal to inspection Extremity Common normals: no clubbing, cyanosis or edema Neuro Common normals: oriented x3 Sensorium/orientation: awake and alert Psych Attitude: calm Results Laboratory Findings ABG, PT/INR, D-dimer: ABG ABG pH 7.543 (7.350-7.450) H* 05/29/23 19:05 ABG pCO2 28.5 mmHg (35.0-45.0) L 05/29/23 19:05 ABG pO2 55.9 mmHg (80.0-100.0) L 05/29/23 19:05 ABG O2 Saturation 90.4 % 05/29/23 19:05 PT/INR, D-dimer PT 10.5 sec (9.0-11.6) 05/29/23 18:45 INR 0.99 05/29/23 18:45 Abnormal lab findings: Abnormal Labs 05/29/23 05/29/23 05/29/23 18:45 19:05 21:44 WBC 22.8 H RDW 22.3 H Lymphocytes % (Manual) 10.0 L Eosinophils % (Manual) 0.0 L Basophils % (Manual) 0.0 L Neutrophils # (Manual) 21.66 H Monocytes # (Manual) 1.14 H ABG pH 7.543 H* ABG pCO2 28.5 L ABG pO2 55.9 L Sodium 135 L Potassium 5.3 H Carbon Dioxide 20.2 L Creatinine 1.12 H Est GFR (Non-Af Amer) 51 L Glucose 145 H AST 61 H ALT 74 H Alkaline Phosphatase 199 H Troponin I High Sens 53.0 H* 68.9 H* NT-Pro-B Natriuret Pep 1975.0 H* Total Protein 8.4 H Albumin 3.1 L 05/30/23 00:00 WBC RDW Lymphocytes % (Manual) Eosinophils % (Manual) Basophils % (Manual) Neutrophils # (Manual) Monocytes # (Manual) ABG pH ABG pCO2 ABG pO2 Sodium Potassium Carbon Dioxide Creatinine Est GFR (Non-Af Amer) Glucose AST ALT Alkaline Phosphatase Troponin I High Sens NT-Pro-B Natriuret Pep 1446.0 H* Total Protein Albumin Diagnostic Findings CT scan - chest: report reviewed and image reviewed Assessment and Plan Assessment and Plan (1) Pneumonia: Assessment and Plan: 1. Healthcare-acquired pneumonia (Left lower lobe, lingula). Failed outpatient treatment with Augmentin & Zithromax, now presenting as severe sepsis. Blood cultures from 05/23/2023 have no growth. Agree with Zosyn + Levaquin + Vancomycin antibiotics. Ordered respiratory panel. Patient has difficulty expectorating secretions. No mucus plugging per se, but secretions are now retained in left main endobronchial stent, which were not present on chest CTA 05/23/2023. Discussed options with patient including bronchoscopy for clearance of secretions as well as to obtain a bronchoalveolar lavage for C&S. After reviewing risks, including possible ventilator support post-procedure, the patient refused a bronchoscopy at this time. She voiced she wished to proceed with conservative treatment for now. If she worsens, then she will consider bronchoscopy. Ordering pulmonary toilet with saline nebs & PEP (which she has been using at home), and IPPV (no contraindication noted with endobronchial stent). Will reassess tomorrow. 2. Severe sepsis secondary to #1. Now has leukocytosis despite antibiotics, with elevated lactate. Patient appears ill. Continue with severe sepsis monitoring and treatment. Ordering respiratory panel. No evidence for septic shock at this time. 3. Acute on chronic hypoxic respiratory failure. Patient qualified for home O2 at outpatient visit 05/25/2023 and has been using it. Despite supplemental O2 @ 2L/min, ABG yesterday showed a pO2 of 55. Currently, O2 flow is up to 4-5L/min and saturating only 90%. Will need to monitor oxygenation closely. 4. NSTEMI type 2. Secondary to acute illness on top of underlying known CAD. Patient stated to me at her outpatient visit that she had remained of Brilinta since prior to endoscopy late January 2023. It now has been ordered during admission. HS-Troponin is not extremely elevated, but is trending up. Will monitor for now. Involve cardiology if evidence of ischemia noted. 5. Acute exacerbation of COPD. She was started on saline nebs and DuoNeb outpatient on 05/25/2023. May continue bronchodilators and pulmonary toilet for now. She has never had a PFT and will eventually require one once she recovers. 6. Tobacco abuse. Patient was a long-term smoker and in fact was smoking up until ~05/19/2023 during this acute illness. She was started on Wellbutrin XL 150mg at her outpatient appointment on 05/25/2023 to stave off urges to return to smoking. 7. 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 Non-resectable. Patient follows with Dr. Rodriguez outpatient. She was to have an appointment with him outpatient today, which is not going to happen. He has been consulted for inpatient evaluation.
[2023-05-30 08:27] LABS: Adenovirus NOT DETECTED (NOT DETECTE); Bordetella parapertussis NOT DETECTED (NOT DETECTE); Coronavirus 229E NOT DETECTED (NOT DETECTE); Coronavirus HKU1 NOT DETECTED (NOT DETECTE); Coronavirus NL63 NOT DETECTED (NOT DETECTE); Coronavirus OC43 NOT DETECTED (NOT DETECTE); Human Metapneumovirus NOT DETECTED (NOT DETECTE); Human Rhinovirus/Enterovirus NOT DETECTED (NOT DETECTE); Influenza A NOT DETECTED (NOT DETECTE); Influenza B NOT DETECTED (NOT DETECTE); Mycoplasma pneumoniae NOT DETECTED (NOT DETECTE); Parainfluenza Virus 1 NOT DETECTED (NOT DETECTE); Parainfluenza Virus 2 NOT DETECTED (NOT DETECTE); Parainfluenza Virus 3 NOT DETECTED (NOT DETECTE); Parainfluenza Virus 4 NOT DETECTED (NOT DETECTE); Respiratory Syncytial Virus NOT DETECTED (NOT DETECTE); SARS-CoV-2 NOT DETECTED (NOT DETECTE)
[2023-05-30] MEDS: ASPIRIN 81 MG TAB.CHEW PO (09:06)
[2023-05-30] MEDS: ISOSORBIDE MONONITRATE 30 MG TAB.ER.24H PO (09:06)
[2023-05-30] MEDS: BUPROPION HCL 150 MG XL TABLET 24H PO (09:06)
[2023-05-30] MEDS: OMEPRAZOLE 20 MG CAPSULE.DR 40 MG PO (09:06)
[2023-05-30] MEDS: VANCOMYCIN HCL 750 MG in 0.9 % SODIUM CHLORIDE 250 ML 250 MG IV ×2 (09:07→21:16)
--- NOTE | 2023-05-30 10:52 | CA_ITS ---
Patient: JEANMARIE ECHEVARRIA Exam Date: 05/30/2023 : 1965 Gender:F Ordering : SHAIKH Christine MORA . Admission #: [id number] Family : BROCK RODNEY Order #: [id number] CLICK HERE TO VIEW EXAM ECHOCARDIOGRAM REPORT PROCEDURE: CA ECHO DOPPLER COMPLETE INDICATIONS: NSTEMI, elevated TROP and BNP, lung cancer, COPD, hypertension COMPARISON: None. DESCRIPTION: COMPLETE ECHOCARDIOGRAM Real-time transthoracic echocardiography with 2D, M-mode, spectral and color flow Doppler performed. QUALITY: Technically difficult due to patients condition. LEFT VENTRICLE: Normal chamber size. Thickened septal wall. LV EF: Global left ventricular systolic function is hyperdynamic; visually estimated ejection fraction is 65 to 70%. Unable to assess regional wall motion abnormalities. DIASTOLIC: Normal diastolic function. ATRIAL SEPTUM: Visually appears intact. LEFT ATRIUM: Normal chamber size. RIGHT ATRIUM: Normal chamber size. RIGHT VENTRICLE: Normal chamber size. Normal right ventricular systolic function. TRICUSPID VALVE: Normal mobility and thickness. No stenosis with no regurgitation. MITRAL VALVE: Normal mobility and thickness. No evidence of mitral valve stenosis. There is no mitral annular calcification. Trivial mitral regurgitation. AORTIC VALVE: Normal trileaflet appearance. Thickened aortic valve. Normal leaflet mobility. No evidence of aortic valve stenosis. No aortic regurgitation. AORTIC ROOT: Normal diameter and appearance. PULMONIC VALVE: Normal thickness and mobility. No stenosis. Trivial regurgitation. PERICARDIUM: Anterior free space; trivial effusion versus fat pad. IVC: Collapes with inspirations. CONCLUSION: 1. Global left ventricular systolic function is hyperdynamic; visually estimated ejection fraction 65 to 70% 2. Normal diastolic function 3. The right ventricle is poorly seen but appears normal in size and systolic function 4. Valves are poorly seen; no significant valvular abnormalities 5. Anterior free space; trivial effusion versus fat pad Adult Echocardiography Procedure Report Left Ventricle LVEDD (3.7 - 5.6 cm): 3.20 cm LVESD (2.2 - 4.0 cm): 2.61 cm LVIVS thickness (0.6 - 1.2 cm): 1.94 cm LVPW thickness (0.5 - 1.0 cm): 0.70 cm e': 0.07 m/s E - e': 6.94 LVOT Max Gradient: 7.78 mm[Hg] LVOT Area (cm2): 1.39 m/s Peak Velocity (LVOT): 1.39 m/s LVOT Diameter 2.17 cm Left Atrium Left Atrium Systolic Dimension: 3.14 cm Mitral Valve MV E to A Ratio: 0.70 Mitral Valve A-Wave Peak Velocity: 0.70 m/s Mitral Valve E-Wave Peak Velocity: 0.49 m/s Right Ventricle Aorta AO Root Diam: 3.18 cm Aortic Valve AoV Area (Peak [place]): 3.52 cm2, 3.52 cm2 Peak Velocity(Antegrade Flow): 1.47 m/s Peak Gradient(Antegrade Flow): 8.64 mm[Hg] Tricuspid Valve Pulmonic Valve Peak Velocity: 1.06 m/s Peak Gradient: 5.06 mm[Hg], 3.97 mm[Hg] Right Atrium Dictated by: Manuel Drew M.D. on 05/30/2023 at 13:00 Approved by: Manuel Drew M.D. on 05/30/2023 at 13:03
[2023-05-30] MEDS: SODIUM CHLORIDE 3% INHALATION 15 ML NEB 3 ML IH ×3 (11:12→23:26)
[2023-05-30] MEDS: IPRATROPIUM/ALBUTEROL SULFATE 3 ML AMPUL.NEB IH ×4 (11:12→23:26)
[2023-05-30 11:38] LABS: Hematocrit 35.6 % (36.0-48.0); Hemoglobin 11.9 g/dL (12.0-16.0); Mean Corpuscular HGB Conc 33.4 g/dL (29.9-35.2); Mean Corpuscular Hemoglobin 31.9 pg (26.7-34.0); Mean Corpuscular Volume 95.4 fL (81.0-99.0); Mean Platelet Volume 9.8 fL (9.5-13.5); Platelet Count 334 10^3/uL (150-450); Red Blood Count 3.73 10^6/uL (4.20-5.40); Red Cell Distribution Width 22.1 % (11.0-15.0); White Blood Count 24.6 10^3/uL (4.0-11.0)
--- NOTE | 2023-05-30 11:41 | PM.HP ---
H&P: HPI History of Present Illness Chief complaint: Shortness of breath Narrative: 57 y o female with recent diagnosis of Lung cancer reports three week hx of worsening shortness of breath, productive cough, wheezing, generalized, malaise, weakness and fatigue. Symptoms progressively worsened until last night she could not catch her breath and came to ED last night. She was previously prescribed oral Augmentin and Azithromycin about a week ago when her w/u in ED was c/w Pneumonia. 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 Patient's w/u in ED is c/w sepsis, acute resp with hypoxia sec to pneumonia and COPD exacerbation and was admitted overnight for treatment. Patient is currently on 5 L O2, she is still short of breath and uncomfortable. She has productive cough but difficulty with coughing up sputum. Denies fever but reports feeling cold and chills. She is feeling slightly better when compared to last night. Review of Systems ROS Status of ROS 10 or more systems reviewed and unremarkable except as noted in history and below [facility] Medical History (Updated 05/30/23 @ 11:58 by Shaikh Shelbie MD) CAD (coronary artery disease) ?I25.10 - Atherosclerotic heart disease of [place] coronary artery without angina pectoris (ICD-10) COPD (chronic obstructive pulmonary disease) ?J44.9 - Chronic obstructive pulmonary disease, unspecified (ICD-10) Emphysema lung ?J43.9 - Emphysema, unspecified (ICD-10) Hernia ?K46.9 - Unspecified abdominal hernia without obstruction or gangrene (ICD-10) HTN (hypertension) ?I10 - Essential (primary) hypertension (ICD-10) Hyperlipemia ?E78.5 - Hyperlipidemia, unspecified (ICD-10) IBS (irritable colon syndrome) ?K58.9 - Irritable bowel syndrome without diarrhea (ICD-10) Lung cancer ?C34.90 - Malignant neoplasm of unspecified part of unspecified bronchus or lung (ICD-10) Tobacco abuse ?Z72.0 - Tobacco use (ICD-10) Surgical History H/O colectomy ?Z90.49 - Acquired absence of other specified parts of digestive tract (ICD-10) H/O: hysterectomy ?Z90.710 - Acquired absence of both cervix and uterus (ICD-10) History of PTCA ?Z98.61 - Coronary angioplasty status (ICD-10) Family History Mother Family history of CHF (congestive heart failure) Family history of diabetes mellitus Family history of hypertension Family history of myocardial infarction Social History Within the past year, how often did you have a drink containing alcohol: never Score interpretation: A score less than 3 is consistent with normal alcohol consumption. Smoking status: Former smoker Second hand tobacco smoke exposure: Yes Non-prescribed substance use: denies use Previous occupational history: Does not work Known occupational exposures/hazards: No Highest level of school completed/degree received: high school graduate Do you want help with school or training: No Are you now , , , , never or living with a partner: In a typical week, how many times do you talk on the telephone with family, friends, or neighbors: never How often do you get together with friends or relatives: never How often do you attend latter day or mosque services: never Do you belong to any clubs or organizations such as latter day groups unions, [employer] or athletic groups, or school groups: no Total score: 1 Score interpretation: A score of less than or equal to 1 indicates the most socially isolated. Little interest or pleasure in doing things: several days Feeling down, depressed, or hopeless: several days Feel stressed/tense/nervous/anxious/difficulty sleeping: very much Life stressors: other Life stressor details: Due to disability, difficulty making decisions: No Do you think of yourself as: straight/heterosexual Gender Identity: female Meds Home Medications and Allergies Home Medications Medication Instructions Recorded Confirmed Type albuterol sulfate 90 mcg/actuation 2 inh inhalation Q4H PRN shortness 02/02/23 05/29/23 Rx breath activated powder inhaler of breath #1 ea aspirin 81 mg chewable tablet 81 mg PO DAILY 02/02/23 05/29/23 History atorvastatin 80 mg tablet 80 mg PO .qhs 02/02/23 05/30/23 History isosorbide mononitrate 30 mg 30 mg PO DAILY 02/02/23 05/29/23 History tablet,extended release 24 hr metoprolol succinate 50 mg 50 mg PO BID 02/02/23 05/30/23 History tablet,extended release 24 hr nitroglycerin 0.4 mg sublingual 0.4 mg sublingual Q5M PRN chest 02/02/23 05/29/23 History tablet pain ticagrelor 90 mg tablet (Brilinta) 90 mg PO BID 02/02/23 05/30/23 History omeprazole 20 mg capsule,delayed 20 mg PO DAILY 05/09/23 05/30/23 History release oxycodone 5 mg tablet 5 mg PO Q12H PRN pain 05/09/23 05/29/23 History prochlorperazine maleate 10 mg 10 mg PO Q8H PRN nausea and 05/09/23 05/29/23 History tablet vomiting amoxicillin-potassium clavulanate 1 tab PO BID 10 days #20 tabs 05/23/23 05/29/23 Rx 1,000 mg-62.5 mg tablet,ext.rel 12hr (Augmentin XR) benzonatate 200 mg capsule 200 mg PO TID PRN cough 05/29/23 05/29/23 History wxidncplrhamktt-qtlfzomvcvxlmej-BH 10 ml PO Q6H PRN cough 05/29/23 05/29/23 History 2 mg-30 mg-10 mg/5 mL oral syrup bupropion HCl 150 mg 24 hr tablet, 150 mg PO DAILY 05/29/23 05/29/23 History extended release sucralfate 1 gram tablet (Carafate) 1 g PO BID 05/30/23 05/30/23 History Allergies Allergy/AdvReac Type Severity Reaction Status Date / Time No Known Drug Allergies Allergy Verified 05/23/23 10:15 Exam Constitutional Vital Signs, click to edit/add: Last Vital Signs Temp 97.6 F 05/29/23 23:08 Pulse 90 05/30/23 11:14 Resp 18 05/30/23 09:32 BP 118/86 05/30/23 09:32 Pulse Ox 96 05/30/23 09:32 O2 Del Method Nasal Cannula 05/30/23 11:14 O2 Flow Rate 5 05/30/23 11:14 FiO2 40 05/29/23 19:30 Documenting provider has reviewed patient's vital signs: yes Common normals: oriented x3 General appearance: cooperative and ill appearing [facility] Common normals: normocephalic and head/scalp atraumatic Head and scalp: normocephalic and atraumatic Eye Common normals: conjunctivae normal and no scleral icterus Conjunctiva: conjunctiva(e) normal Respiratory Effort & inspection: able to speak in complete sentences and tachypneic Auscultation: rhonchi and wheezes Cardio Common normals: regular rate, S1 normal heart sound and S2 normal heart sound Rate: regular rate Heart sounds: S1 normal and S2 normal GI Common normals: Normal to inspection, nondistended, normoactive bowel sounds present, soft to palpation, non-tender and no hepatosplenomegaly Palpation: soft and no hepatosplenomegaly Extremity Common normals: no clubbing, cyanosis or edema Neuro Common normals: oriented x3, moves all extremities and no focal motor deficits Psych Common normals: mental status grossly normal, denies hallucinations, denies homicidal ideation and denies suicidal ideation Results Labs Labs: Short CBC 05/29/23 Range/Units 18:45 WBC 22.8 H (4.0-11.0) 10^3/uL Hgb 14.0 (12.0-16.0) g/dL Hct 41.6 (36.0-48.0) % Plt Count 414 (150-450) 10^3/uL BMP 05/29/23 18:45 Sodium 135 L Potassium 5.3 H Chloride 100 Carbon Dioxide 20.2 L BUN 18.0 Creatinine 1.12 H Glucose 145 H Calcium 9.8 Liver Function 05/29/23 Range/Units 18:45 Total Bilirubin 0.6 (0.2-1.0) mg/dL AST 61 H (15-37) U/L ALT 74 H (14-59) U/L Alkaline Phosphatase 199 H (46-116) U/L Albumin 3.1 L (3.4-5.0) g/dL ABG ABG results: 05/29/23 19:05 ABG pH 7.543 H* ABG pCO2 28.5 L ABG pO2 55.9 L ABG HCO3 24.5 ABG O2 Saturation 90.4 ABG Base Excess 2.0 Assessment and Plan Assessment and Plan (1) Sepsis: Assessment and Plan: HR > 00, RR> 20, WBC > 20 due to Pneumonia along with organ dysfunction (resp failure with hypoxia) Being treated for left lower lobe pneumonia - failed outpatient abx therapy (augmentin and azithromax) Her hemodynamics are stable now but she continues to have resp difficulty and hypoxia. Pulm consulted. Monitor and wean off O2 as tolerated. (2) Pneumonia: Assessment and Plan: post obstructive PNA, left lower lobe - on IV vancomycin, Levaquin and Zosyn for MRSA/pseudomonas coverage as recent abx use (augmentin/azthromax) and immunocompromised (s/p chemo and radiation), active lung cancer. Wean off O2 as tolerated. C/w resp toilet, bronchodilators. Possibility of bronchoscopy to help with mucus plugging and retained secretions. Defer to Pulm Qualifiers: Pneumonia type: due to unspecified organism Laterality: left Lung location: lower lobe of lung Qualified Code(s): J18.9 - Pneumonia, unspecified organism (3) COPD exacerbation: Assessment and Plan: C/w systemic steroids, duonebs. Wean off O2 As tolerated. (4) Acute respiratory failure with hypoxia: Assessment and Plan: Due to PNA, COPD exacerbation. Treatment/management outlined above. Wean off O2 as tolerated. Monitor closely. (5) Elevated troponin: Assessment and Plan: Likely demand ischemia due to hypoxia and sepsis. Monitor. Ordered 2D ECHO. C/w ASA, brlinta. (6) Lung cancer: Assessment and Plan: New diagnosis - one session of chemo/radiation. Scheduled for Immunotherapy. Pulm on board. Qualifiers: Laterality: left Lung location: unspecified part of lung Qualified Code(s): C34.92 - Malignant neoplasm of unspecified part of left bronchus or lung (7) CAD (coronary artery disease): Assessment and Plan: S/p PCI in the past. C/w ASA, brlinta, statin. Mild elevation in trop - likely T2 demand ischemia 2 D ECHO ordered. Qualifiers: Coronary Disease-Associated Artery/Lesion type: [place] artery [place] vs. transplanted heart: [place] heart Associated angina: without angina Qualified Code(s): I25.10 - Atherosclerotic heart disease of [place] coronary artery without angina pectoris (8) HTN (hypertension): Assessment and Plan: C/w home meds. (9) Hyperlipemia: Assessment and Plan: C/w statin
--- NOTE | 2023-05-30 11:47 | CM.NOTE ---
Rounds made with Dr. Morfin. No plan for discharge today.
[2023-05-30 11:53] LABS: Alanine Aminotransferase 63 U/L (14-59); Albumin Globulin Ratio 0.6; Albumin Level 2.7 g/dL (3.4-5.0); Alkaline Phosphatase 169 U/L (46-116); Anion Gap 16.3; Aspartate Amino Transferase 31 U/L (15-37); BUN Creatinine Ratio 24.2; Bilirubin Total 0.3 mg/dL (0.2-1.0); Calcium 9.3 mg/dL (8.5-10.1); Carbon Dioxide 26.5 mmol/L (21.0-32.0); Chloride 99 mmol/L (98-107); Estimated GFR (African America >60 (>=60); Estimated GFR (Non-African Ame >60 (>=60); Globulin 4.5 g/dL; Glucose 120 mg/dL (74-106); Potassium 3.8 mmol/L (3.5-5.1); Sodium 138 mmol/L (136-145); Total Protein 7.2 g/dL (6.4-8.2)
[2023-05-30 11:57] LABS: Troponin I High Sensitivity 166.2 pg/mL (4.0-51.3)
--- NOTE | 2023-05-30 12:01 | PC.NURSE ---
1200- notified of critical troponin at 166.2
[2023-05-30 12:14] LABS: Lymphocytes Absolute Manual 1.47 10^3/uL (1.20-3.80); Monocytes Absolute Manual 0.73 10^3/uL (0.30-0.80); Segmented Neut Absolute Manual 22.38 10^3/uL (1.4-6.5)
[2023-05-30 12:15] LABS: Acanthocytes 1+
[2023-05-30 12:16] LABS: Poikilocytosis 1+; Tear Drop Cells 1+
[2023-05-30] MEDS: METHYLPREDNISOLONE SOD SUCC PF 40 MG/ML VIAL IVP ×2 (12:16→19:34)
--- NOTE | 2023-05-30 12:43 | PM.CN ---
Consult Note: HPI Data of Consult Requesting Physician: Shaikh Shelbie MD Primary Care Provider: Shaikh Shelbie MD Consult Narrative Reason for consult: locally advanced non-small cell lung cancer Narrative: Leann is a very pleasant, 57-year-old female who presented to [facility] with shortness of breath and mid-sternal pleuritic chest pain with radiation to the back. She reports that her symptoms were ongoing for a few months but worse more recently and more persistent. She also has associated chronic cough and shortness of breath. She was previously discharged from the ED on Z-Rios and oral steroids for COPD exacerbation, but her symptoms did not improve. She reported dyspnea even at rest and was placed on 2L of oxygen by nasal cannula. She was started on broad spectrum antibiotics and systemic steroids. She noted that she is a current smoker and smokes a pack a day. She had workup including CT chest dated 02/19/2023 which revealed a mediastinal mass. Specifically, this mass abutted the superior margin of the left mainstem bronchus, anterior margin of the aorta, and anterior esophagus measuring 3.0 x 1.9 x 2.2 cm. The mass also had mass effect upon the airway. There was a 4 mm left upper lobe nodule. There was also a 2 mm right upper lobe solid nodule. There was a chronic T7 compression fracture with minimal height loss. Her blood work dated 02/21/2023 revealed a white blood cell count of 30.6, hemoglobin of 10.7, MCV of 90.4, platelet count of 371,000. Her differential was largely neutrophils and absolute neutrophil count was 25.7. I discussed her case urgently with Dr. Christian at [facility]. He has performed bronchoscopy and EBUS-TBFNA. He called me personally and noted a new, preliminary diagnosis of non-small cell lung cancer/squamous cell cancer on her frozen specimen / path report. The procedure note from 03/10/2023 shows that the distal trachea and left main mass was causing central airway obstruction. It is noted that the bronchoscope was advanced to the tracheobronchial tree. The proximal trachea was normal. In the distal portion of the trachea on the left lateral side, there is a large endobronchial lesion. The mass extended to the left main bronchus involving at least the proximal two thirds. The mass was causing near complete occlusion of the left main. She underwent endobronchial stent with Dr Christian at [facility]. She was seen in our office for Oncology recommendations. She had negative MRI brain. She had PET scan showing clustered left supraclavicular LN, likely metastatic. She had hypermetabolic LN in the R hilum and left mediastinal region. No disease in abdomen, pelvis, bone. She was felt to have unresectable stage 3 non-small cell lung cancer. I discussed her case with Dr Saleem Morris from [facility], radiation oncology. She started carboplatin, taxol, and concurrent radiation on 03/28/2023. She has received final cycle #7 chemotherapy on 05/09/2023. Her RT finished mid Apr as well. She is now admitted with progressive SOB. She has recently completed prednisone taper for hoarse voice and ROSE. She was recently evaluated at [facility] for progressive symptoms, and given script for oral Abx. She did undergo CT chest dated 05/23/2023 showing no PE. She had dense consolidation in the left upper and lower lobes with air bronchograms. Underlying infection / neoplasm not excluded. During her present hospital course, she is admitted and on 5 liters oxygen via nasal cannula. Pulmonary Dr Nair has been consulted. Bronch is being deferred at this time. She continues IV Abx and also nebulizers. Her labs show a moderate / brisk leukocytosis, with left shift. She has mild anemia, likely inflammatory and from infection. She notes difficulty with secretions and expectorating her sputum / mucus. We will delay orders for her PET scan and possible immunotherapy pending resolution of acute issues above. ECOG PS 3. cc:: CC: Shaikh Shelbie MD Review of Systems ROS Narrative A comprehensive 12 point review of systems was conducted and is negative other than that reported in the history of present illness. [facility] Medical History (Updated 05/30/23 @ 11:58 by Shaikh Shelbie MD) CAD (coronary artery disease) ?I25.10 - Atherosclerotic heart disease of [place] coronary artery without angina pectoris (ICD-10) COPD (chronic obstructive pulmonary disease) ?J44.9 - Chronic obstructive pulmonary disease, unspecified (ICD-10) Emphysema lung ?J43.9 - Emphysema, unspecified (ICD-10) Hernia ?K46.9 - Unspecified abdominal hernia without obstruction or gangrene (ICD-10) HTN (hypertension) ?I10 - Essential (primary) hypertension (ICD-10) Hyperlipemia ?E78.5 - Hyperlipidemia, unspecified (ICD-10) IBS (irritable colon syndrome) ?K58.9 - Irritable bowel syndrome without diarrhea (ICD-10) Lung cancer ?C34.90 - Malignant neoplasm of unspecified part of unspecified bronchus or lung (ICD-10) Tobacco abuse ?Z72.0 - Tobacco use (ICD-10) Surgical History H/O colectomy ?Z90.49 - Acquired absence of other specified parts of digestive tract (ICD-10) H/O: hysterectomy ?Z90.710 - Acquired absence of both cervix and uterus (ICD-10) History of PTCA ?Z98.61 - Coronary angioplasty status (ICD-10) Family History Mother Family history of CHF (congestive heart failure) Family history of diabetes mellitus Family history of hypertension Family history of myocardial infarction Social History Within the past year, how often did you have a drink containing alcohol: never Score interpretation: A score less than 3 is consistent with normal alcohol consumption. Smoking status: Former smoker Second hand tobacco smoke exposure: Yes Non-prescribed substance use: denies use Previous occupational history: Does not work Known occupational exposures/hazards: No Highest level of school completed/degree received: high school graduate Do you want help with school or training: No Are you now , , , , never or living with a partner: In a typical week, how many times do you talk on the telephone with family, friends, or neighbors: never How often do you get together with friends or relatives: never How often do you attend oriental orthodox or synagogue services: never Do you belong to any clubs or organizations such as oriental orthodox groups unions, fraternal or athletic groups, or school groups: no Total score: 1 Score interpretation: A score of less than or equal to 1 indicates the most socially isolated. Little interest or pleasure in doing things: several days Feeling down, depressed, or hopeless: several days Feel stressed/tense/nervous/anxious/difficulty sleeping: very much Life stressors: other Life stressor details: Due to disability, difficulty making decisions: No Do you think of yourself as: straight/heterosexual Gender Identity: female Meds Home Medications and Allergies Home Medications Medication Instructions Recorded Confirmed Type albuterol sulfate 90 mcg/actuation 2 inh inhalation Q4H PRN shortness 02/02/23 05/29/23 Rx breath activated powder inhaler of breath #1 ea aspirin 81 mg chewable tablet 81 mg PO DAILY 02/02/23 05/29/23 History atorvastatin 80 mg tablet 80 mg PO .qhs 02/02/23 05/30/23 History isosorbide mononitrate 30 mg 30 mg PO DAILY 02/02/23 05/29/23 History tablet,extended release 24 hr metoprolol succinate 50 mg 50 mg PO BID 02/02/23 05/30/23 History tablet,extended release 24 hr nitroglycerin 0.4 mg sublingual 0.4 mg sublingual Q5M PRN chest 02/02/23 05/29/23 History tablet pain ticagrelor 90 mg tablet (Brilinta) 90 mg PO BID 02/02/23 05/30/23 History omeprazole 20 mg capsule,delayed 20 mg PO DAILY 05/09/23 05/30/23 History release oxycodone 5 mg tablet 5 mg PO Q12H PRN pain 05/09/23 05/29/23 History prochlorperazine maleate 10 mg 10 mg PO Q8H PRN nausea and 05/09/23 05/29/23 History tablet vomiting amoxicillin-potassium clavulanate 1 tab PO BID 10 days #20 tabs 05/23/23 05/29/23 Rx 1,000 mg-62.5 mg tablet,ext.rel 12hr (Augmentin XR) benzonatate 200 mg capsule 200 mg PO TID PRN cough 05/29/23 05/29/23 History uqytoqaaxownupb-mzciqyfnwitidqe-JD 10 ml PO Q6H PRN cough 05/29/23 05/29/23 History 2 mg-30 mg-10 mg/5 mL oral syrup bupropion HCl 150 mg 24 hr tablet, 150 mg PO DAILY 05/29/23 05/29/23 History extended release sucralfate 1 gram tablet (Carafate) 1 g PO BID 05/30/23 05/30/23 History Allergies Allergy/AdvReac Type Severity Reaction Status Date / Time No Known Drug Allergies Allergy Verified 05/23/23 10:15 Exam Narrative Exam Narrative: Documenting provider has reviewed patient's vital signs: yes Common normals: oriented x3 General appearance: cooperative and ill appearing [facility] Common normals: normocephalic and head/scalp atraumatic Head and scalp: normocephalic and atraumatic Eye Common normals: conjunctivae normal and no scleral icterus Conjunctiva: conjunctiva(e) normal Respiratory Effort & inspection: able to speak in complete sentences and tachypneic Auscultation: rhonchi and wheezes Cardio Common normals: regular rate, S1 normal heart sound and S2 normal heart sound Rate: regular rate Heart sounds: S1 normal and S2 normal GI Common normals: Normal to inspection, nondistended, normoactive bowel sounds present, soft to palpation, non-tender and no hepatosplenomegaly Palpation: soft and no hepatosplenomegaly Extremity Common normals: no clubbing, cyanosis or edema Neuro Common normals: oriented x3, moves all extremities and no focal motor deficits Psych Common normals: mental status grossly normal, denies hallucinations, denies homicidal ideation and denies suicidal ideation Constitutional Vital Signs, click to edit/add: Last Vital Signs Temp 97.6 F 05/29/23 23:08 Pulse 90 05/30/23 11:14 Resp 18 05/30/23 09:32 BP 118/86 05/30/23 09:32 Pulse Ox 96 05/30/23 09:32 O2 Del Method Nasal Cannula 05/30/23 11:14 O2 Flow Rate 5 05/30/23 11:14 FiO2 40 05/29/23 19:30 Results Labs Labs: Short CBC 05/29/23 05/30/23 Range/Units 18:45 11:18 WBC 22.8 H 24.6 H (4.0-11.0) 10^3/uL Hgb 14.0 11.9 L (12.0-16.0) g/dL Hct 41.6 35.6 L (36.0-48.0) % Plt Count 414 334 (150-450) 10^3/uL BMP 05/29/23 05/30/23 18:45 11:18 Sodium 135 L 138 Potassium 5.3 H 3.8 Chloride 100 99 Carbon Dioxide 20.2 L 26.5 BUN 18.0 23.0 H Creatinine 1.12 H 0.95 Glucose 145 H 120 H Calcium 9.8 9.3 Liver Function 05/29/23 05/30/23 Range/Units 18:45 11:18 Total Bilirubin 0.6 0.3 (0.2-1.0) mg/dL AST 61 H 31 (15-37) U/L ALT 74 H 63 H (14-59) U/L Alkaline Phosphatase 199 H 169 H (46-116) U/L Albumin 3.1 L 2.7 L (3.4-5.0) g/dL ABG ABG results: 05/29/23 19:05 ABG pH 7.543 H* ABG pCO2 28.5 L ABG pO2 55.9 L ABG HCO3 24.5 ABG O2 Saturation 90.4 ABG Base Excess 2.0 Assessment and Plan Assessment and Plan (1) Sepsis: (2) Pneumonia: Qualifiers: Laterality: left Lung location: lower lobe of lung Pneumonia type: due to unspecified organism Qualified Code(s): J18.9 - Pneumonia, unspecified organism (3) COPD exacerbation: (4) Acute respiratory failure with hypoxia: (5) Elevated troponin: (6) Lung cancer: Qualifiers: Laterality: left Lung location: unspecified part of lung Qualified Code(s): C34.92 - Malignant neoplasm of unspecified part of left bronchus or lung (7) CAD (coronary artery disease): Qualifiers: Associated angina: without angina Coronary Disease-Associated Artery/Lesion type: [place] artery [place] vs. transplanted heart: [place] heart Qualified Code(s): I25.10 - Atherosclerotic heart disease of [place] coronary artery without angina pectoris (8) HTN (hypertension): (9) Hyperlipemia: Meredith Noriega is a very pleasant, 57-year-old female with extensive tobacco use who is referred for a mediastinal mass. She has undergone urgent EBUS and bronchoscopy with Dr. Christian, procedure date 03/03/2023. He called me personally as she has a new diagnosis of non-small cell lung cancer / squamous cell histology. She has unresectable stage III disease. She received chemoradiation from early Mar 2023 to mid Apr 2023. She is now admitted with progressive dyspnea. Impression: 1. Non small cell lung cancer, squamous cell histology, stage III, unresectable. She received carbo, taxol, concurrent RT (03/28/2023 - 05/09/2023) 2. Near complete occlusion of the left main. Per EBUS with Dr Christian, at the distal portion of the trachea on the left lateral side, there is a large endobronchial lesion. The mass extends to the left main bronchus involving at least the proximal two thirds. The mass is causing near complete occlusion of the left main. She did undergo endobronchial stent 3. COPD / extensive tobacco use 4. Leukocytosis, felt to be from infection, inflammation 5. Dyspnea 6. Left lower lobe and lingular dense consolidative opacities, likely atelectasis with pneumonia 7. Anemia, likely inflammatory PLAN: - She has completed her chemoRT - Agree with Abx and maneuvers for improving her secretions / ability to expectorate (e.g. nebulized saline / hypertonic saline, etc). I defer this to Dr Nair - Incentive spirometry - Consider bronchoscopy for mucus clearance / cultures, if felt to be stable. I defer this to Dr Nair - We will delay her outpt PET scan and consolidation immunotherapy pending resolution of acute issues above. - If any decompensation, I would recommend transfer to [facility] where her endobronchial stent was placed. Accepting MD would likely be Dr Christian. Thank you for the consult. Will follow along closely with you. Archana Rodriguez MD Hematology Oncology
--- NOTE | 2023-05-30 15:27 | SWNOTE1 ---
SW met with pt to discuss dc needs. Pt is living at home by herself. SW did check to see if pt has had any contact with her previous boyfriend. Pt voiced she has not seen or heard from him. SW did ask pt about her oxygen at home. Pt did get oxygne from Dr. Nair and it is through [employer]. She said it is 2 liters. SW did ask if pt has tubing at home and portability. Pt is not sure what all she has at home for oxygen. SW called [employer] in regards to her home oxygen. They do supply it and pt is supposed to be evaluated on June 01 for a portable oxygen concentrator. She has tanks at home right now.
[2023-05-30 16:40] LABS: Troponin I High Sensitivity 154.1 pg/mL (4.0-51.3)
[2023-05-30] MEDS: ATORVASTATIN CALCIUM 40 MG TABLET 80 MG PO (21:16)
[2023-05-30] MEDS: TEMAZEPAM 15 MG CAPSULE PO (21:19)
[2023-05-31] VITALS (90 sets, daily range): BP systolic 101–134; BP diastolic 68–81; PULSE 67–84; RESP 16–22; TEMP 36.5–36.7; O2SAT 72–99
[2023-05-31] MEDS: LEVOFLOXACIN IN DEXTROSE 5 % 750 MG/150 ML PIGGYBACK IV (02:39)
[2023-05-31] MEDS: METHYLPREDNISOLONE SOD SUCC PF 40 MG/ML VIAL IVP ×3 (04:04→19:52)
[2023-05-31] MEDS: PIPERACILLIN SODIUM/TAZOBACTAM 3.375 GM in 0.9 % SODIUM CHLORIDE 50 ML IV ×3 (04:04→21:04)
[2023-05-31 04:41] LABS: Basophils Absolute Auto 0.1 10^3/uL (0.0-0.1); Basophils Percent Auto 0.2 % (0.2-2.0); Hematocrit 32.8 % (36.0-48.0); Hemoglobin 10.8 g/dL (12.0-16.0); Immature Granulocytes Abs Auto 0.74 10^3/uL (0.00-0.03); Immature Granulocytes Pct Auto 2.4 % (0.0-0.5); Lymphocytes Absolute Auto 0.8 10^3/uL (1.2-3.8); Lymphocytes Percent Auto 2.5 % (20.5-60.0); Mean Corpuscular HGB Conc 32.9 g/dL (29.9-35.2); Mean Corpuscular Volume 97.3 fL (81.0-99.0); Monocytes Absolute Auto 1.2 10^3/uL (0.3-0.8); Neutrophils Absolute Auto 28.1 10^3/uL (1.4-6.5); Neutrophils Percent Auto 90.9 % (43.0-75.0); Platelet Count 333 10^3/uL (150-450); Red Blood Count 3.37 10^6/uL (4.20-5.40); Red Cell Distribution Width 22.2 % (11.0-15.0)
[2023-05-31 04:52] LABS: BUN Creatinine Ratio 30.3; Calcium 8.8 mg/dL (8.5-10.1); Carbon Dioxide 25.4 mmol/L (21.0-32.0); Chloride 102 mmol/L (98-107); Estimated GFR (African America >60 (>=60); Estimated GFR (Non-African Ame >60 (>=60); Glucose 147 mg/dL (74-106); Potassium 3.4 mmol/L (3.5-5.1); Sodium 135 mmol/L (136-145)
[2023-05-31 04:59] LABS: White Blood Count 30.9 10^3/uL (4.0-11.0)
--- NOTE | 2023-05-31 07:22 | PM.PLPN ---
Progress Note: A&P Assessment and Plan (1) Pneumonia: Assessment and Plan: 1. Healthcare-acquired pneumonia (Left lower lobe, lingula). Respiratory panel negative. Causative agent unclear. Remains on Zosyn + Levaquin + Vancomycin antibiotics. No worse, but not particularly improved. Asked patient how poorly does she feel - is it a struggle for her to expectorate? She could not really give me a straight answer. She just said that she has a hard time bringing it up. Will change saline nebs to Mucomyst. Discussed yesterday bronchoscopy - if she worsens, will need to reconsider it. 2. Severe sepsis secondary to #1. Mistakenly cited an elevated lactate - due to EMR formatting, the January lactate was pulled into the current labs when I reviewed them. Regardless, she had other signs & symptoms of severe sepsis. She is afebrile, but leukocytosis increased - may be due to steroids. Continue antibiotics, monitor closely. No hypotension. 3. Acute on chronic hypoxic respiratory failure. Continues to require ~5L/min, was at 2L/min last week, and previously on room air before that. 4. NSTEMI type 2. Secondary to acute illness on top of underlying known CAD. Troponins peaked, mild elevation. Can F/U with cardiology outpatient. 5. Acute exacerbation of COPD. Continue bronchodilators, steroids. Pulmonary toilet (IPPV, PEP, change sodium chloride 0.9% to Mucomyst). 6. Tobacco abuse. Smoking cessation to be continued. 7. 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 Non-resectable. F/U with Dr. Rodriguez. Qualifiers: Laterality: left Lung location: lower lobe of lung Pneumonia type: due to unspecified organism Qualified Code(s): J18.9 - Pneumonia, unspecified organism Subjective Subjective Interval history: Discussed with RN & RT. No significant change since yesterday. Pulmonary toilet ordered for patient, able to expectorate a little more than prior, but not significant. Still feels congested with relatively non-productive cough. WBC increased to 30k with 8% bands, but she was also started on steroids. She denies any chest pain. Cultures are still pending. Exam Constitutional Vital Signs, click to edit/add: Last Vital Signs Temp 98.5 F 05/30/23 23:28 Pulse 69 05/31/23 06:11 Resp 20 05/31/23 04:01 BP 116/74 05/31/23 04:01 Pulse Ox 98 05/31/23 05:50 O2 Del Method Nasal Cannula 05/31/23 03:43 O2 Flow Rate 5 05/31/23 04:01 FiO2 40 05/29/23 19:30 Documenting provider has reviewed patient's vital signs: yes Common normals: no apparent distress HENMT Other: Wearing nasal cannula Chest Common normals: inspection of chest normal Respiratory Other: Diminished breath sounds on left with crackles, no egophony. No wheezes. Breathing is not labored at this time. Frequently coughs, forgets to cover her mouth many times... Cardio Rate: regular rate Rhythm: regular rhythm GI Inspection: normal to inspection Extremity Common normals: no clubbing, cyanosis or edema Neuro Common normals: CN's II-XII intact bilaterally Psych Speech: normal speech
[2023-05-31] MEDS: IPRATROPIUM/ALBUTEROL SULFATE 3 ML AMPUL.NEB IH ×5 (07:39→23:02)
[2023-05-31] MEDS: ACETYLCYSTEINE 400 MG/4 ML VIAL 100 MG IH ×3 (07:39→23:02)
[2023-05-31] MEDS: ASPIRIN 81 MG TAB.CHEW PO (08:09)
[2023-05-31] MEDS: TICAGRELOR 90 MG TABLET PO ×2 (08:09→21:19)
[2023-05-31] MEDS: METOPROLOL SUCCINATE 50 MG TAB.ER.24H PO ×2 (08:09→21:20)
[2023-05-31] MEDS: ISOSORBIDE MONONITRATE 30 MG TAB.ER.24H PO (08:09)
[2023-05-31] MEDS: OMEPRAZOLE 20 MG CAPSULE.DR 40 MG PO (08:09)
[2023-05-31] MEDS: BUPROPION HCL 150 MG XL TABLET 24H PO (08:09)
[2023-05-31] MEDS: GUAIFENESIN 600 MG TAB.ER.12H PO ×2 (08:09→21:19)
[2023-05-31] MEDS: POTASSIUM CHLORIDE 10 MEQ ER TABLET 40 MEQ PO (08:12)
[2023-05-31] MEDS: ENOXAPARIN SODIUM 40 MG/0.4 ML SYRINGE SUBQ (08:12)
[2023-05-31] MEDS: VANCOMYCIN HCL 750 MG in 0.9 % SODIUM CHLORIDE 250 ML 250 MG IV ×2 (08:14→20:01)
--- NOTE | 2023-05-31 09:38 | P.IMPN_ITS ---
Progress Note: A&P Assessment and Plan (1) Pneumonia: Assessment and Plan: Post obstructive PNA- on IV vancomycin/Zosyn and levaquin for MRSA/Pseudomonas coverage and being treated as hospital acquired PNA as recent oral abx use, immunosuppressed status. Worsening leukocytosis, persistent hypoxia but patient subjectively feels better. Pulm changed saline nebs to mucomyst to help clearing up her secretions/mucus. Patient would like to hold off on bronchoscopy. Qualifiers: Laterality: left Lung location: lower lobe of lung Pneumonia type: due to unspecified organism Qualified Code(s): J18.9 - Pneumonia, unspecified organism (2) Elevated troponin: Assessment and Plan: Likely T2 demand ischemia. Trending down. On ASA, brlinta Mont[place] on tele. 2D ECHO no sig WMA, normal EF. (3) Acute respiratory failure with hypoxia: Assessment and Plan: Currently on 5 L O2 via NC. Due to PNA, COPD exacerbation Wean off as tolerated (4) COPD exacerbation: Assessment and Plan: Improved aeration, but she has persistent wheezing on left side. C/w steroids, duonebs, Pulm toilet. (5) Hypokalemia: Assessment and Plan: Repleted (6) Sepsis: Assessment and Plan: Stable hemodynamics now. But persistent hypoxia, worsening leukocytosis. Patient subjectively feels better. Leukocytosis can worsen with steroids use too. Monitor. F/u cx. (7) CAD (coronary artery disease): Assessment and Plan: s/p PCI. C/w ASA, brlinta ,statin. Qualifiers: Coronary Disease-Associated Artery/Lesion type: [place] artery [place] vs. transplanted heart: [place] heart Associated angina: without angina Qualified Code(s): I25.10 - Atherosclerotic heart disease of [place] coronary artery without angina pectoris (8) HTN (hypertension): Assessment and Plan: C/w home meds. BP stable. (9) Hyperlipemia: Assessment and Plan: C/w statin (10) Lung cancer: Assessment and Plan: unresectable. s/p chemo/radiation Oncology following the patient. Qualifiers: Laterality: left Lung location: unspecified part of lung Qualified Code(s): C34.92 - Malignant neoplasm of unspecified part of left bronchus or lung Internal Medicine - PN: Subj Subjective Interval history: Seen and examined. No overnight events. Looks more comfortable today. Still on 5 L O2 Exam Constitutional Vital Signs, click to edit/add: Last Vital Signs Temp 97.9 F 05/31/23 08:34 Pulse 70 05/31/23 08:34 Resp 20 05/31/23 08:34 BP 101/72 05/31/23 08:34 Pulse Ox 95 05/31/23 08:34 O2 Del Method Nasal Cannula 05/31/23 08:34 O2 Flow Rate 5 05/31/23 08:34 FiO2 40 05/29/23 19:30 Documenting provider has reviewed patient's vital signs: yes Common normals: oriented x3 General appearance: cooperative [facility] Common normals: normocephalic and head/scalp atraumatic Head and scalp: normocephalic and atraumatic Eye Common normals: conjunctivae normal and no scleral icterus Conjunctiva: conjunctiva(e) normal Respiratory Common normals: no use of accessory muscles Effort & inspection: able to speak in complete sentences Auscultation: rhonchi left upper and left lower and wheezes left lower and left upper Cardio Common normals: regular rate, S1 normal heart sound and S2 normal heart sound Rate: regular rate Heart sounds: S1 normal and S2 normal GI Common normals: Normal to inspection, nondistended, normoactive bowel sounds present, soft to palpation, non-tender and no hepatosplenomegaly Palpation: soft and no hepatosplenomegaly Extremity Common normals: no clubbing, cyanosis or edema Neuro Common normals: oriented x3, moves all extremities and no focal motor deficits Psych Common normals: mental status grossly normal, denies hallucinations, denies homicidal ideation and denies suicidal ideation Internal Medicine - PN: Obj Da Labs Labs: Laboratory Results - last 24 hr 05/30/23 05/30/23 05/31/23 11:18 16:16 04:24 WBC 24.6 H 30.9 H* RBC 3.73 L 3.37 L Hgb 11.9 L 10.8 L Hct 35.6 L 32.8 L MCV 95.4 97.3 MCH 31.9 32.0 MCHC 33.4 32.9 RDW 22.1 H 22.2 H Plt Count 334 333 MPV 9.8 10.0 Neut % (Auto) 90.9 H Lymph % (Auto) 2.5 L Bradley % (Auto) 4.0 Eos % (Auto) 0.0 L Baso % (Auto) 0.2 Neut # (Auto) 28.1 H Lymph # (Auto) 0.8 L Bradley # (Auto) 1.2 H Eos # (Auto) 0.0 Baso # (Auto) 0.1 Abs Immat Gran (auto) 0.74 H Seg Neuts % (Manual) 91.0 Lymphocytes % (Manual) 6.0 L Monocytes % (Manual) 3.0 Eosinophils % (Manual) 0.0 L Basophils % (Manual) 0.0 L Imm/Tot Granulo (auto) 2.4 H Neutrophils # (Manual) 22.38 H Lymphocytes # (Manual) 1.47 Monocytes # (Manual) 0.73 Eosinophils # (Manual) 0.00 Basophils # (Manual) 0.00 Poikilocytosis 1+ Tear Drop Cells 1+ Acanthocytes (Spur) 1+ Sodium 138 135 L Potassium 3.8 3.4 L Chloride 99 102 Carbon Dioxide 26.5 25.4 Anion Gap 16.3 11.0 BUN 23.0 H 27.0 H Creatinine 0.95 0.89 Est GFR ( Amer) >60 >60 Est GFR (Non-Af Amer) >60 >60 BUN/Creatinine Ratio 24.2 30.3 Glucose 120 H 147 H Calcium 9.3 8.8 Total Bilirubin 0.3 AST 31 ALT 63 H Alkaline Phosphatase 169 H Troponin I High Sens 166.2 H* 154.1 H* Total Protein 7.2 Albumin 2.7 L Globulin 4.5 Albumin/Globulin Ratio 0.6
--- NOTE | 2023-05-31 09:59 | CM.NOTE ---
Rounds made with Dr. Morfin. No plan for discharge today.
--- NOTE | 2023-05-31 10:38 | SWNOTE1 ---
SW met with pt, per pt's request. Pt's friend was in room as well. Pt's friend wants SW to assist pt with SNAP benefits and social security. Pt has been in contact with them, but has missed appointments due to sickness. SW to come back today and call jobs and family services with pt to assist.
--- NOTE | 2023-05-31 15:24 | SWNOTE1 ---
SW and pt called jobs and family services together. Her SNAP benefits and medical benefits are good until January 2024. They will call her and set up phone interview in December 2023 to re-apply. SW and pt also called [employer], were placed on hold for 10 mins each time. SW checked online and pt can apply online. SW and pt attempted to do so, but they will need many things pt is not sure of. Pt is still so will need his information as well. SW printed off the requirements and information she will need to apply. SULMA also provided the number for local Social Security administration and jobs and family services.
[2023-05-31] MEDS: ATORVASTATIN CALCIUM 40 MG TABLET 80 MG PO (21:19)
[2023-05-31] MEDS: BENZONATATE 100 MG CAPSULE 200 MG PO (21:21)
[2023-06-01] VITALS (33 sets, daily range): BP systolic 114–138; BP diastolic 70–84; PULSE 64–88; RESP 16–20; TEMP 36.4–36.9; O2SAT 92–98
[2023-06-01] MEDS: LEVOFLOXACIN IN DEXTROSE 5 % 750 MG/150 ML PIGGYBACK IV (01:32)
[2023-06-01] MEDS: METHYLPREDNISOLONE SOD SUCC PF 40 MG/ML VIAL IVP ×2 (03:01→15:37)
--- NOTE | 2023-06-01 03:58 | RESP.RT ---
No HHN given. Pt sleeping. Tx to be given while awake per doctor's order.
[2023-06-01 04:48] LABS: Hematocrit 31.6 % (36.0-48.0); Hemoglobin 10.3 g/dL (12.0-16.0); Mean Corpuscular HGB Conc 32.6 g/dL (29.9-35.2); Mean Corpuscular Hemoglobin 31.7 pg (26.7-34.0); Mean Corpuscular Volume 97.2 fL (81.0-99.0); Mean Platelet Volume 10.1 fL (9.5-13.5); Platelet Count 320 10^3/uL (150-450); Red Blood Count 3.25 10^6/uL (4.20-5.40); Red Cell Distribution Width 22.4 % (11.0-15.0); White Blood Count 25.6 10^3/uL (4.0-11.0)
[2023-06-01 05:13] LABS: BUN Creatinine Ratio 32.8; Calcium 8.4 mg/dL (8.5-10.1); Carbon Dioxide 25.8 mmol/L (21.0-32.0); Chloride 105 mmol/L (98-107); Estimated GFR (African America >60 (>=60); Estimated GFR (Non-African Ame >60 (>=60); Glucose 133 mg/dL (74-106); Potassium 3.8 mmol/L (3.5-5.1); Sodium 137 mmol/L (136-145)
[2023-06-01 05:27] LABS: Anisocytosis 2+; Lymphocytes Absolute Manual 0.76 10^3/uL (1.20-3.80); Monocytes Absolute Manual 1.02 10^3/uL (0.30-0.80)
[2023-06-01] MEDS: PIPERACILLIN SODIUM/TAZOBACTAM 3.375 GM in 0.9 % SODIUM CHLORIDE 50 ML IV (06:10)
--- NOTE | 2023-06-01 07:33 | PM.PLPN ---
Progress Note: A&P Assessment and Plan (1) Pneumonia: Assessment and Plan: 1. Healthcare-acquired pneumonia (Left lower lobe, lingula). Cultures have all returned negative. She is clinically improving. WBC remain elevated, but suspect this is more due to glucocorticoid effect opposed to a sepsis response. Mucomyst has helped to loosen secretions. Discussed bronchoscopy 1 last time - as she is clinically improving after 3 days of antibiotics and secretions are being mobilized, bronchoscopy would be unlikely to have much benefit. Additionally, a BAL has increased chance of being negative growth after being on the antibiotics. Patient stated she felt better, and we mutually agreed that a bronchoscopy no longer needs to be considered at this point. Will add Vest on top of IPPV, PEP, and Mucomyst to help further expectoration. 2. Severe sepsis secondary to #1. Clinically improving. 3. Acute on chronic hypoxic respiratory failure. FiO2 improving - down to 2L/min @ rest. Will need assessed prior to discharge regarding ambulatory O2 needs. 4. NSTEMI type 2. Secondary to acute illness on top of underlying known CAD. F/U with cardiology outpatient. 5. Acute exacerbation of COPD. Clinically improving. 6. Tobacco abuse. Smoking cessation can not be understated! 7. 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 Non-resectable. F/U with Dr. Rodriguez. Qualifiers: Laterality: left Lung location: lower lobe of lung Pneumonia type: due to unspecified organism Qualified Code(s): J18.9 - Pneumonia, unspecified organism Plan Patient was to have a F/U appointment with me today, but obviously it was cancelled. She can reschedule a F/U appointment in 1-2 weeks after discharge. Subjective Subjective Interval history: Discussed with RT & RN. Patient seems to be improving some. FiO2 @ rest has been weaned down to 2L/min (baseline on presentation to the ER this visit), though unclear what her ambulatory O2 needs are. Added Mucomyst - this has helped to finally begin to loose her congestion and secretions, though she still has some difficulty expectorating. She is less dyspneic. No fevers. She has no new pulmonary concerns today. Exam Constitutional Vital Signs, click to edit/add: Last Vital Signs Temp 98.0 F 06/01/23 03:30 Pulse 79 06/01/23 07:23 Resp 16 06/01/23 04:30 BP 138/70 06/01/23 03:30 Pulse Ox 96 06/01/23 03:58 O2 Del Method Nasal Cannula 06/01/23 03:58 O2 Flow Rate 2 06/01/23 03:58 FiO2 40 05/29/23 19:30 Documenting provider has reviewed patient's vital signs: yes Other: She does not appear as ill as she did the first time I saw her this admission. There is some strength to her voice. Remains hoarse - has been like that for a while. HENMT Other: Wearing NC. No oral candidiasis. Chest Common normals: inspection of chest normal Respiratory Other: Slightly increased breath sounds in the left mid and lower regions, but still quite diminished. Mildly coarse. No wheezes. Unlabored. Cardio Rate: regular rate Rhythm: regular rhythm GI Common normals: Normal to inspection, nondistended, normoactive bowel sounds present Extremity Common normals: no clubbing, cyanosis or edema Neuro Sensorium/orientation: awake and alert Speech: speech normal Psych Appearance: grossly normal Attitude: calm
[2023-06-01] MEDS: IPRATROPIUM/ALBUTEROL SULFATE 3 ML AMPUL.NEB IH ×5 (07:39→23:33)
[2023-06-01] MEDS: ACETYLCYSTEINE 400 MG/4 ML VIAL 100 MG IH (07:40)
[2023-06-01] MEDS: METOPROLOL SUCCINATE 50 MG TAB.ER.24H PO ×2 (08:08→21:46)
[2023-06-01] MEDS: ISOSORBIDE MONONITRATE 30 MG TAB.ER.24H PO (08:08)
[2023-06-01] MEDS: OMEPRAZOLE 20 MG CAPSULE.DR 40 MG PO (08:08)
[2023-06-01] MEDS: BUPROPION HCL 150 MG XL TABLET 24H PO (08:08)
[2023-06-01] MEDS: TICAGRELOR 90 MG TABLET PO ×2 (08:08→21:45)
[2023-06-01] MEDS: ASPIRIN 81 MG TAB.CHEW PO (08:08)
[2023-06-01] MEDS: ENOXAPARIN SODIUM 40 MG/0.4 ML SYRINGE SUBQ (08:08)
[2023-06-01] MEDS: GUAIFENESIN 600 MG TAB.ER.12H PO ×2 (08:08→21:46)
--- NOTE | 2023-06-01 08:24 | RESP.RT ---
Already charted in cont. physiotherapy tab.
[2023-06-01] MEDS: VANCOMYCIN HCL 750 MG in 0.9 % SODIUM CHLORIDE 250 ML 250 MG IV ×2 (09:52→17:55)
[2023-06-01 10:10] LABS: Vancomycin Trough 9.5 ug/mL (5.0-20.0)
--- NOTE | 2023-06-01 10:30 | P.PN_ITS ---
Patient seen and examined. Case reviewed, discussed with Trupti. Agree with documentation and treatment plan Exam: NAD, in bed. Normal RR, faint exp wheezing on left side along with rhonchi, improved aeration, no resp distress noted. NT, ND. AAOX 3, non focal. Hospital Acquired PNA Acute on chronic resp failure with hypoxia Lung Cancer COPD exacerbation CAD HTN HLD Stable for Med-surg floor. D/c zosyn. Cultures negative. C/w Vancomycin/Levaquin. Possible d/c tomorrow if remains stable and continues to improve clinically. Progress Note: Subjective Subjective Interval history: Date/Time of exam: 06/01/23 0830 No acute events recorded overnight. The patient is resting in bed at the time of my exam. She reports improved respiratory status and does not appear to be in any respiratory distress. Her O2 supplementation has been decreased to 2 L via NC which is her baseline at the time of admission. She was seen in consult by Dr. Nair today and he [facility] as the patient is clinically improving. The patient is tolerating Mucomyst well and has had slight improvement in expectoration. Percussion vest treatment was added per Dr. Nair today and she is also tolerating this well. As the patient is clinically improving we expect discharge within the next 24 to 48 hours. Exam Constitutional Vital Signs, click to edit/add: Last Vital Signs Temp 97.5 F L 06/01/23 07:39 Pulse 72 06/01/23 10:00 Resp 16 06/01/23 04:30 BP 126/84 06/01/23 07:12 Pulse Ox 98 06/01/23 10:11 O2 Del Method Nasal Cannula 06/01/23 10:11 O2 Flow Rate 2 06/01/23 10:11 FiO2 40 05/29/23 19:30 Common normals: no apparent distress, oriented x3 and alert General appearance: cooperative Orientation/consciousness: Yes awake HENMT Common normals: normocephalic, head/scalp atraumatic and hearing grossly normal bilaterally Head and scalp: normocephalic and atraumatic Eye Common normals: PERRL, EOMs intact bilaterally, conjunctivae normal and no scleral icterus General eye: normal appearance of both eyes Conjunctiva: conjunctiva(e) normal Pupil: PERRL Neck & C-Spine Common normals: no JVD Chest Common normals: inspection of chest normal Chest: symmetrical chest wall rise Respiratory Common normals: normal respiratory effort, no use of accessory muscles and clear to auscultation bilaterally Effort & inspection: able to speak in complete sentences Auscultation: clear to auscultation bilaterally Cardio Common normals: no JVD, regular rate, regular rhythm, S1 normal heart sound, S2 normal heart sound, no gallops, no clicks, no murmurs, no rub and peripheral pulses 2+ throughout Rate: regular rate Rhythm: regular rhythm Heart sounds: S1 normal and S2 normal Peripheral pulses: pulses 2+ throughout GI Common normals: Normal to inspection, nondistended, normoactive bowel sounds present, soft to palpation, non-tender and no hepatosplenomegaly Palpation: soft and no hepatosplenomegaly Bladder/kidney exam: bladder normal to palpation Bimanual exam- vagina & uterus: bladder normal to palpation Extremity Common normals: normal to inspection and no calf tenderness General: no clubbing, no cyanosis and no edema Neuro Common normals: oriented x3, CN's II-XII intact bilaterally, moves all extremities, no focal motor deficits and no sensory deficits noted Sensorium/orientation: awake and alert Psych Common normals: mental status grossly normal Progress Note: Objective Labs Labs: Short CBC 06/01/23 Range/Units 04:09 WBC 25.6 H (4.0-11.0) 10^3/uL Hgb 10.3 L (12.0-16.0) g/dL Hct 31.6 L (36.0-48.0) % Plt Count 320 (150-450) 10^3/uL BMP 06/01/23 04:09 Sodium 137 Potassium 3.8 Chloride 105 Carbon Dioxide 25.8 BUN 21.0 H Creatinine 0.64 Glucose 133 H Calcium 8.4 L Pulse Oximetry Attestation: I have reviewed the pertinent pulse oximetry results. Progress Note: A&P Assessment and Plan (1) Pneumonia: Assessment and Plan: ACUTE * Post obstructive PNA in setting of L main bronchus squamous cell carcinoma stg III * Treated as hospital acquired PNA d/t recent oral abx use & immunosuppressed status. * Per Dr Nair recommendations, D/C Zosyn today as sputum & blood cultures remain negative. * Continue IV vancomycin and levaquin for broad gram neg & pos coverage. Pseudomonas no longer clinically suspected * Likely d/c on Levaquin monotherapy * Leukocytosis persists, but trending down today * Suspect 2/2 glucocorticoid administration rather than infectious etiology * Hypoxia improving - back to baseline prior to admission (Supplemental O2 added less than 1 week prior to admission) * Pulm added mucomyst 05/31/23 - tolerating well, minimal improvement in exp ectoration * Percussion vest added today - pt tolerating well * Daily CBC, CMP Qualifiers: Laterality: left Lung location: lower lobe of lung Pneumonia type: due to unspecified organism Qualified Code(s): J18.9 - Pneumonia, unspecified organism (2) Elevated troponin: Assessment and Plan: ACUTE * Suspect T2 demand ischemia in setting of respiratory failure on admission. * Trending down. * Continue home ASA, brilinta * Tele monitoring. * 2D ECHO unremarkable * Denies active CP (3) Acute respiratory failure with hypoxia: Assessment and Plan: ACUTE * Resolving * 2/2 to Lung CA, post-obstructive PNA, COPD exacerbation * Currently on 2 L O2 via NC - baseline O2 delivery on admission but this was recent addition. * Tobacco cessation strongly advised * Wean off O2 if tolerated * Home O2 eval w/ ambulation prior to discharge (4) COPD exacerbation: Assessment and Plan: ACUTE * No wheezing on exam today * Reduce Solumedrol to 40 mg BID * Continue duonebs, Pulm toilet - Percussion vest added today per Dr Nair (5) Hypokalemia: Assessment and Plan: ACUTE * Resolved (6) Sepsis: Assessment and Plan: ACUTE * Resolved * Hemodynamics remain stable * Hypoxia improving/resolving * Leukocytosis persists but trending down * Suspect 2/2 glucocorticoid administration rather than infectious etiology. * Patient subjectively feels better. * Blood cultures neg x 48 hrs (7) CAD (coronary artery disease): Assessment and Plan: CHRONIC * s/p PCI. * C/w ASA, Brilinta ,statin per home meds Qualifiers: Coronary Disease-Associated Artery/Lesion type: [place] artery [place] vs. transplanted heart: [place] heart Associated angina: without angina Qualified Code(s): I25.10 - Atherosclerotic heart disease of [place] coronary artery without angina pectoris (8) HTN (hypertension): Assessment and Plan: CHRONIC * C/w home Imdur, metoprolol succ. * BP stable. (9) Hyperlipemia: Assessment and Plan: CHRONIC * C/w home statin (10) Lung cancer: Assessment and Plan: CHRONIC * Known L bronchus squamous cell carcinoma, Stg III * Unresectable. * s/p chemo/radiation * Oncology following the patient. Qualifiers: Laterality: left Lung location: unspecified part of lung Qualified Code(s): C34.92 - Malignant neoplasm of unspecified part of left bronchus or lung
--- NOTE | 2023-06-01 10:30 | PM.PN ---
Progress Note: Subjective Subjective Interval history: Date/Time of exam: 06/01/23 0830 No acute events recorded overnight. The patient is resting in bed at the time of my exam. She reports improved respiratory status and does not appear to be in any respiratory distress. Her O2 supplementation has been decreased to 2 L via NC which is her baseline at the time of admission. She was seen in consult by Dr. Nair today and he recommends transfer to [facility] floor as the patient is clinically improving. The patient is tolerating Mucomyst well and has had slight improvement in expectoration. Percussion vest treatment was added per Dr. Nair today and she is also tolerating this well. As the patient is clinically improving we expect discharge within the next 24 to 48 hours. Exam Constitutional Vital Signs, click to edit/add: Last Vital Signs Temp 97.5 F L 06/01/23 07:39 Pulse 72 06/01/23 10:00 Resp 16 06/01/23 04:30 BP 126/84 06/01/23 07:12 Pulse Ox 98 06/01/23 10:11 O2 Del Method Nasal Cannula 06/01/23 10:11 O2 Flow Rate 2 06/01/23 10:11 FiO2 40 05/29/23 19:30 Common normals: no apparent distress, oriented x3 and alert General appearance: cooperative Orientation/consciousness: Yes awake HENAR Common normals: normocephalic, head/scalp atraumatic and hearing grossly normal bilaterally Head and scalp: normocephalic and atraumatic Eye Common normals: PERRL, EOMs intact bilaterally, conjunctivae normal and no scleral icterus General eye: normal appearance of both eyes Conjunctiva: conjunctiva(e) normal Pupil: PERRL Neck & C-Spine Common normals: no JVD Chest Common normals: inspection of chest normal Chest: symmetrical chest wall rise Respiratory Common normals: normal respiratory effort, no use of accessory muscles and clear to auscultation bilaterally Effort & inspection: able to speak in complete sentences Auscultation: clear to auscultation bilaterally Cardio Common normals: no JVD, regular rate, regular rhythm, S1 normal heart sound, S2 normal heart sound, no gallops, no clicks, no murmurs, no rub and peripheral pulses 2+ throughout Rate: regular rate Rhythm: regular rhythm Heart sounds: S1 normal and S2 normal Peripheral pulses: pulses 2+ throughout GI Common normals: Normal to inspection, nondistended, normoactive bowel sounds present, soft to palpation, non-tender and no hepatosplenomegaly Palpation: soft and no hepatosplenomegaly Bladder/kidney exam: bladder normal to palpation Bimanual exam- vagina & uterus: bladder normal to palpation Extremity Common normals: normal to inspection and no calf tenderness General: no clubbing, no cyanosis and no edema Neuro Common normals: oriented x3, CN's II-XII intact bilaterally, moves all extremities, no focal motor deficits and no sensory deficits noted Sensorium/orientation: awake and alert Psych Common normals: mental status grossly normal Progress Note: Objective Labs Labs: Short CBC 06/01/23 Range/Units 04:09 WBC 25.6 H (4.0-11.0) 10^3/uL Hgb 10.3 L (12.0-16.0) g/dL Hct 31.6 L (36.0-48.0) % Plt Count 320 (150-450) 10^3/uL BMP 06/01/23 04:09 Sodium 137 Potassium 3.8 Chloride 105 Carbon Dioxide 25.8 BUN 21.0 H Creatinine 0.64 Glucose 133 H Calcium 8.4 L Pulse Oximetry Attestation: I have reviewed the pertinent pulse oximetry results. Progress Note: A&P Assessment and Plan (1) Pneumonia: Assessment and Plan: ACUTE Post obstructive PNA in setting of L main bronchus squamous cell carcinoma stg III Treated as hospital acquired PNA d/t recent oral abx use & immunosuppressed status. Per Dr Niar recommendations, D/C Zosyn today as sputum & blood cultures remain negative. Continue IV vancomycin and levaquin for broad gram neg & pos coverage. Pseudomonas no longer clinically suspected Likely d/c on Levaquin monotherapy Leukocytosis persists, but trending down today Suspect 2/2 glucocorticoid administration rather than infectious etiology Hypoxia improving - back to baseline prior to admission (Supplemental O2 added less than 1 week prior to admission) Pulm added mucomyst 05/31/23 - tolerating well, minimal improvement in expectoration Percussion vest added today - pt tolerating well Daily CBC, CMP Qualifiers: Laterality: left Lung location: lower lobe of lung Pneumonia type: due to unspecified organism Qualified Code(s): J18.9 - Pneumonia, unspecified organism (2) Elevated troponin: Assessment and Plan: ACUTE Suspect T2 demand ischemia in setting of respiratory failure on admission. Trending down. Continue home ASA, brilinta Tele monitoring. 2D ECHO unremarkable Denies active CP (3) Acute respiratory failure with hypoxia: Assessment and Plan: ACUTE Resolving 2/2 to Lung CA, post-obstructive PNA, COPD exacerbation Currently on 2 L O2 via NC - baseline O2 delivery on admission but this was recent addition. Tobacco cessation strongly advised Wean off O2 if tolerated Home O2 eval w/ ambulation prior to discharge (4) COPD exacerbation: Assessment and Plan: ACUTE No wheezing on exam today Reduce Solumedrol to 40 mg BID Continue duonebs, Pulm toilet - Percussion vest added today per Dr Nair (5) Hypokalemia: Assessment and Plan: ACUTE Resolved (6) Sepsis: Assessment and Plan: ACUTE Resolved Hemodynamics remain stable Hypoxia improving/resolving Leukocytosis persists but trending down Suspect 2/2 glucocorticoid administration rather than infectious etiology. Patient subjectively feels better. Blood cultures neg x 48 hrs (7) CAD (coronary artery disease): Assessment and Plan: CHRONIC s/p PCI. C/w ASA, Brilinta ,statin per home meds Qualifiers: Coronary Disease-Associated Artery/Lesion type: [place] artery [place] vs. transplanted heart: [place] heart Associated angina: without angina Qualified Code(s): I25.10 - Atherosclerotic heart disease of [place] coronary artery without angina pectoris (8) HTN (hypertension): Assessment and Plan: CHRONIC C/w home Imdur, metoprolol succ. BP stable. (9) Hyperlipemia: Assessment and Plan: CHRONIC C/w home statin (10) Lung cancer: Assessment and Plan: CHRONIC Known L bronchus squamous cell carcinoma, Stg III Unresectable. s/p chemo/radiation Oncology following the patient. Qualifiers: Laterality: left Lung location: unspecified part of lung Qualified Code(s): C34.92 - Malignant neoplasm of unspecified part of left bronchus or lung
--- NOTE | 2023-06-01 11:22 | CM.NOTE ---
Rounds made with Dr. Morfin. Will transfer to Med/Surg floor. No plan for discharge today.
[2023-06-01] MEDS: SODIUM CHLORIDE 0.9% INHALATION 3 ML NEB IH ×2 (15:58→23:32)
[2023-06-01] MEDS: ACETYLCYSTEINE 400 MG/4 ML VIAL 300 MG IH ×2 (16:10→23:32)
[2023-06-01] MEDS: ATORVASTATIN CALCIUM 40 MG TABLET 80 MG PO (21:46)
[2023-06-02] VITALS (9 sets, daily range): BP systolic 126; BP diastolic 81; PULSE 70–86; RESP 18; TEMP 36.3; O2SAT 95–96
[2023-06-02] MEDS: VANCOMYCIN HCL 750 MG in 0.9 % SODIUM CHLORIDE 250 ML 250 MG IV ×2 (01:31→09:21)
[2023-06-02] MEDS: LEVOFLOXACIN IN DEXTROSE 5 % 750 MG/150 ML PIGGYBACK IV (04:52)
[2023-06-02] MEDS: METHYLPREDNISOLONE SOD SUCC PF 40 MG/ML VIAL IVP (04:57)
[2023-06-02 04:58] LABS: Basophils Percent Auto 0.2 % (0.2-2.0); Hematocrit 32.3 % (36.0-48.0); Hemoglobin 10.5 g/dL (12.0-16.0); Immature Granulocytes Abs Auto 0.44 10^3/uL (0.00-0.03); Immature Granulocytes Pct Auto 2.3 % (0.0-0.5); Lymphocytes Absolute Auto 0.6 10^3/uL (1.2-3.8); Lymphocytes Percent Auto 2.9 % (20.5-60.0); Mean Corpuscular HGB Conc 32.5 g/dL (29.9-35.2); Mean Corpuscular Hemoglobin 31.5 pg (26.7-34.0); Mean Platelet Volume 9.7 fL (9.5-13.5); Monocytes Absolute Auto 1.5 10^3/uL (0.3-0.8); Monocytes Percent Auto 7.8 % (1.7-12.0); Neutrophils Absolute Auto 16.9 10^3/uL (1.4-6.5); Neutrophils Percent Auto 86.8 % (43.0-75.0); Platelet Count 342 10^3/uL (150-450); Red Blood Count 3.33 10^6/uL (4.20-5.40); Red Cell Distribution Width 22.3 % (11.0-15.0); White Blood Count 19.5 10^3/uL (4.0-11.0)
[2023-06-02 05:16] LABS: Anion Gap 10.2; BUN Creatinine Ratio 25.4; Calcium 8.2 mg/dL (8.5-10.1); Chloride 105 mmol/L (98-107); Estimated GFR (African America >60 (>=60); Estimated GFR (Non-African Ame >60 (>=60); Glucose 120 mg/dL (74-106); Potassium 3.2 mmol/L (3.5-5.1); Sodium 139 mmol/L (136-145)
[2023-06-02] MEDS: ACETYLCYSTEINE 400 MG/4 ML VIAL 300 MG IH (07:18)
[2023-06-02] MEDS: IPRATROPIUM/ALBUTEROL SULFATE 3 ML AMPUL.NEB IH ×2 (07:18→10:29)
[2023-06-02] MEDS: ASPIRIN 81 MG TAB.CHEW PO (09:10)
[2023-06-02] MEDS: ISOSORBIDE MONONITRATE 30 MG TAB.ER.24H PO (09:10)
[2023-06-02] MEDS: TICAGRELOR 90 MG TABLET PO (09:11)
[2023-06-02] MEDS: BUPROPION HCL 150 MG XL TABLET 24H PO (09:11)
[2023-06-02] MEDS: GUAIFENESIN 600 MG TAB.ER.12H PO (09:11)
[2023-06-02] MEDS: OMEPRAZOLE 20 MG CAPSULE.DR 40 MG PO (09:12)
[2023-06-02] MEDS: METOPROLOL SUCCINATE 50 MG TAB.ER.24H PO (09:12)
[2023-06-02] MEDS: ENOXAPARIN SODIUM 40 MG/0.4 ML SYRINGE SUBQ (09:13)
--- NOTE | 2023-06-02 09:41 | CM.NOTE ---
Discussed plan for discharge today on oral antibiotics. Discussed no need for bronchoscopy at this time per Dr. Morfin's discussion with Dr. Nair. Discussed importance of using breathing treatments and oxygen at home and avoid smoking. Discussed leaving on portable oxygen.
--- NOTE | 2023-06-02 10:12 | P.DS_ITS ---
DS: Providers Provider Date of admission: 05/29/23 22:58 Primary care physician: Shaikh Shelbie MD Consults: 05/30/23 Consult to Oncology Routine Consulting Provider: Archana Rodriguez Reason for consultation: had outpt appt scheduled for today 05/30/23 01:34 Consult to Pulmonology Routine Consulting Provider: Radames Nair Reason for consultation: pneumonia 05/30/23 07:47 Consult to Pulmonology Routine Consulting Provider: Radames Nair Reason for consultation: Pneumonia 05/30/23 10:53 Occupational Therapy Eval and Treat Routine Reason for consultation: weakness Physical Therapy Eval and Treat Routine Reason for consultation: weakness Attending physician on discharge: Shaikh Shelbie Discharging clinician: Shaikh Shelbie Anticipated date of discharge: 06/02/23 DS: Diagnosis Discharge Diagnosis (1) Pneumonia: Assessment and plan: Doing well. Negative resp panel, blood and sputum cx. Received 5 days of IV vancomycin. Will d/c on oral Levaquin x 5 days. F/u with PCP and Pulm as outpatient. Qualifiers: Laterality: left Lung location: lower lobe of lung Pneumonia type: due to unspecified organism Qualified Code(s): J18.9 - Pneumonia, unspecified organism (2) Elevated troponin: Assessment and plan: likely t2 demand ischemia. Monitor. Outpatient f/u with Cardiology. (3) Acute respiratory failure with hypoxia: Assessment and plan: On 2 L 02. Back to baseline. Will send home on O2. (4) COPD exacerbation: Assessment and plan: More or less resolved. Will d/c on oral prednisone. (5) Hypokalemia: (6) Sepsis: Assessment and plan: Resolved (7) CAD (coronary artery disease): Assessment and plan: C.w home meds. Qualifiers: Coronary Disease-Associated Artery/Lesion type: [place] artery [place] vs. transplanted heart: [place] heart Associated angina: without angina Qualified Code(s): I25.10 - Atherosclerotic heart disease of [place] coronary artery without angina pectoris (8) HTN (hypertension): Assessment and plan: stable. (9) Hyperlipemia: Assessment and plan: c/w statn (10) Lung cancer: Assessment and plan: Follow up with Oncology Qualifiers: Laterality: left Lung location: unspecified part of lung Qualified Code(s): C34.92 - Malignant neoplasm of unspecified part of left bronchus or lung DS: Summary Hospital Course Hospital Course: 57 y o female with recent diagnosis of Lung cancer p/w three week hx of worsening shortness of breath, productive cough, wheezing, generalized, malaise, weakness and fatigue. She was previously prescribed oral Augmentin and Azithromycin about a week ago when her w/u in ED was c/w Pneumonia. She was put on 2 L O2 via NC along with bronchodilators by her Strategic Planning Specialist with no improvement in her symptoms. Patient was admitted for sepsis sec with acute on chronic resp failure with hypoxia sec to hospital acquired PNA. She was also noted to have COPD exacerbation. Patient was treated with IV Vancomycin, Levaquin and Zosyn, inhaled bronchodilators, systemic steroids. She struggled with clearing her secretions and was noted to have mucus plugging and retained secretions and initially plan was to perform bronchoscopy but she improved with conservative treatments including mucomyst, saline nebs, Chest percussion. Her clinical condition improved progressively during the course of hospital stay. Patient's O2 requirement returned to her baseline of 2 L O2. Her breathing was comfortable and she felt well on day of discharge. of note, she was noted to have elevated trop when she arrived - troponin trended down with no sig abnormality noted on 2D ECHO and telemetry monitoring. This was likely due Demand ischemia due to sepsis, hypoxia. She will need to f/u with her Binding End Stitcher. Status at Discharge Functional status at discharge: independent ambulation Time Spent with Patient Time attestation: Total time spent providing and/or coordinating discharge services: Time spent: greater than 30 minutes Exam Constitutional Vital Signs, click to edit/add: Last Vital Signs Temp 97.4 F L 06/02/23 05:12 Pulse 74 06/02/23 07:41 Resp 18 06/02/23 07:41 BP 126/81 06/02/23 05:12 Pulse Ox 96 06/02/23 07:30 O2 Del Method Nasal Cannula 06/02/23 07:30 O2 Flow Rate 2.5 06/02/23 07:30 FiO2 40 05/29/23 19:30 Documenting provider has reviewed patient's vital signs: yes Common normals: oriented x3 General appearance: cooperative HENMT Common normals: normocephalic and head/scalp atraumatic Head and scalp: normocephalic and atraumatic Eye Common normals: conjunctivae normal and no scleral icterus Conjunctiva: conjunctiva(e) normal Respiratory Common normals: normal respiratory effort, no use of accessory muscles and clear to auscultation bilaterally Effort & inspection: able to speak in complete sentences Cardio Common normals: regular rate, S1 normal heart sound and S2 normal heart sound Rate: regular rate Heart sounds: S1 normal and S2 normal GI Common normals: Normal to inspection, nondistended, normoactive bowel sounds present, soft to palpation, non-tender and no hepatosplenomegaly Palpation: soft and no hepatosplenomegaly Extremity Common normals: no clubbing, cyanosis or edema Neuro Common normals: oriented x3, moves all extremities and no focal motor deficits Psych Common normals: mental status grossly normal, denies hallucinations, denies homicidal ideation and denies suicidal ideation DS: Data Data Completed and Pending Labs on day of discharge: Labs from last 24 hours 06/02/23 06/01/23 04:45 08:14 WBC 19.5 H RBC 3.33 L Hgb 10.5 L Hct 32.3 L MCV 97.0 MCH 31.5 MCHC 32.5 RDW 22.3 H Plt Count 342 MPV 9.7 Neut % (Auto) 86.8 H Lymph % (Auto) 2.9 L [place] % (Auto) 7.8 Eos % (Auto) 0.0 L Baso % (Auto) 0.2 Neut # (Auto) 16.9 H Lymph # (Auto) 0.6 L [place] # (Auto) 1.5 H Eos # (Auto) 0.0 Baso # (Auto) 0.0 Abs Immat Gran (auto) 0.44 H Imm/Tot Granulo (auto) 2.3 H Sodium 139 Potassium 3.2 L Chloride 105 Carbon Dioxide 27.0 Anion Gap 10.2 BUN 15.0 Creatinine 0.59 Est GFR ( Amer) >60 Est GFR (Non-Af Amer) >60 BUN/Creatinine Ratio 25.4 Glucose 120 H Calcium 8.2 L Vancomycin Trough 9.5 Preliminary micro results at discharge 05/29/23 19:17 Blood Culture Result 1 - Preliminary Blood NO GROWTH AT 36-48 HOURS. FINAL TO FOLLOW. 05/29/23 19:05 Blood Culture Result 1 - Preliminary Blood NO GROWTH AT 36-48 HOURS. FINAL TO FOLLOW. Discharge Plan Discharge Disposition: Home, Self-Care Condition: Good Discharge Medications: New prednisone 20 mg tablet 20 mg PO BID 5 Days Qty: 10 0RF levofloxacin 750 mg tablet 750 mg PO DAILY 5 Days Qty: 5 0RF guaifenesin [Mucinex] 600 mg tablet extended release 12hr 600 mg PO BID PRN (Reason: cough) Qty: 30 0RF Continued omeprazole 20 mg capsule,delayed release(DR/EC) 20 mg PO DAILY oxycodone 5 mg tablet 5 mg PO Q12H PRN (Reason: pain) Rx Instructions: may take 1 or 2 tabs aspirin 81 mg tablet,chewable 81 mg PO DAILY atorvastatin 80 mg tablet 80 mg PO .qhs isosorbide mononitrate 30 mg tablet extended release 24 hr 30 mg PO DAILY metoprolol succinate 50 mg tablet extended release 24 hr 50 mg PO BID nitroglycerin 0.4 mg tablet, sublingual 0.4 mg sublingual Q5M PRN (Reason: chest pain) Brilinta 90 mg tablet 90 mg PO BID Hold Instructions: Doctor's Order albuterol sulfate 90 mcg/actuation aerosol powdr breath activated 2 inh inhalation Q4H PRN (Reason: shortness of breath) Qty: 1 0RF sucralfate [Carafate] 1 gram tablet 1 g PO BID Discontinued prochlorperazine maleate 10 mg tablet 10 mg PO Q8H PRN (Reason: nausea and vomiting) amoxicillin-pot clavulanate [Augmentin XR] 1,000-62.5 mg tablet extended release 12 hr 1 tab PO BID 10 Days Qty: 20 0RF Patient Comments: started 05/23/23 for 10 days benzonatate 200 mg capsule 200 mg PO TID PRN (Reason: cough) [id number] 2-30-10 mg/5 mL syrup 10 ml PO Q6H PRN (Reason: cough) Patient Comments: started 05/23/23 bupropion HCl 150 mg tablet extended release 24 hr 150 mg PO DAILY Patient Instructions: Dyspnea (DC) Activity Restrictions/Additional Instructions: - Follow up w/ Dr Nair in 1-2 weeks Forms: Portal Instructions Follow Up Appointments: Patient is to schedule a follow up appt. with Dr. Morfin for 7-10 days. Office is closed today 06/02/23. Office #: [phone] Patient is to schedule a follow up appt. with Dr. Nair (pulmonary) for 1-2wks. Office is closed today 06/02/23. Office #: [phone]
--- NOTE | 2023-06-02 10:38 | SWNOTE1 ---
Pt is being discharged home today. SW called [facility] with pt in the room. They will call pt in regards to her being evaluated for portable oxygen concentrator at home. They will also send a tank to the hospital for pt to go home with as pt has a tank at home but wanted to make sure we get her home properly. Pt also asked about speaking to Jory Majano in regards to a concern pt had down in ER. SW called and left Jory a message. SULMA updated nursing.
[2023-06-02] MEDS: HEPARIN SODIUM (PORCINE) PF LOCK FLUSH 500 UNIT/5 ML SYRINGE 250 UNIT IV (10:41)
--- NOTE | 2023-06-05 14:09 | CM.DCFOLLOWU ---
No answer 1st attempt
--- NOTE | 2023-06-06 15:13 | CM.DCFOLLOWU ---
Person spoke with: Leann How are you feeling? Much better How is your pain? No pain Did you understand your discharge instructions? yes Do you have any questions about your discharge instructions? no Were you given any prescriptions at discharge? yes Were you able to get your prescriptions filled? yes Do you understand how to take your medications as ordered? yes Do you have any questions about your follow up appointment and do you plan to keep your follow up appointment? Yes I did see smokehouse operator today and appt with Korey is scheduled. Tomorrow Im dropping off new pt packet for Dr. Morfin's office Is there anything else that you would like to discuss? No Questions/Comments/Concerns/Other:
== END 2023-06-02 13:31 | disposition home or self-care (01) | DRG 720 ==
LOC: ER 22:29 → ICU 23:02 → MS 06-01 10:50
PROVIDERS: Internal Medicine; Physician Assistant; Admitting Provider Internal Medicine; Emergency Provider Internal Medicine; PCP Internal Medicine; Visit Provider Nurse Practitioner
DX: A41.9 Sepsis, unspecified organism (principal); J18.9 Pneumonia, unspecified organism; I25.10 Atherosclerotic heart disease of native coronary artery without angina pectoris; T17.990A Other foreign object in respiratory tract, part unspecified in causing asphyxiation, initial encounter; C34.02 Malignant neoplasm of left main bronchus; E87.3 Alkalosis; R65.20 Severe sepsis without septic shock; J96.21 Acute and chronic respiratory failure with hypoxia; I21.A1 Myocardial infarction type 2; E78.5 Hyperlipidemia, unspecified; D64.9 Anemia, unspecified; J43.9 Emphysema, unspecified; E87.6 Hypokalemia; I10 Essential (primary) hypertension; K58.9 Irritable bowel syndrome, unspecified; Z90.49 Acquired absence of other specified parts of digestive tract; Z79.82 Long term (current) use of aspirin; Z79.899 Other long term (current) drug therapy; Z87.891 Personal history of nicotine dependence; Z98.61 Coronary angioplasty status; Z83.3 Family history of diabetes mellitus; Z82.49 Family history of ischemic heart disease and other diseases of the circulatory system; Z79.02 Long term (current) use of antithrombotics/antiplatelets
CPT/HCPCS: 0202U; 36415; 36600; 71275; 80048; 80053; 80202; 82805; 83605; 83880; 84484; 85025; 85027; 85610; 85730; 87040; 87070; 87106; 87150; 87205; 93005; 93306; 94640; 94667; 94668; 94761; 94799; 96365; 96366; 96367; 96368; 96372; 96375; 96376; 97161; 97165; 97535; 99285; G0463; J2920; J2930; J3370; Q3014; Q9967

== ENCOUNTER 2023-06-09 11:31 | Emergency (ER) | payer OTHER, SELFPAY ==
[2023-06-09 11:33] VITALS: BP 108/87; PULSE 99; RESP 18; TEMP 36.6; O2SAT 97; BMI 25.1
--- NOTE | 2023-06-09 11:56 | XR_ITS ---
[address] [address] Patient Name: JEANMARIE ECHEVARRIA MRN: [id number] date: 1965 Sex: F Assigned Patient Location: ED.MAIN Current Patient Location: Accession/Order Number: [id number] Exam Date: 06/09/2023 12:25 Report Date: 06/09/2023 14:01 At the request of: DARIN MENDOSA Procedure: XR knee GIANNI 2V EXAM: XR knee GIANNI 2V HISTORY: bilateral knee pain COMPARISON: None. TECHNIQUE: 3 views Bilateral knees FINDINGS: Bones: No acute fracture or aggressive appearing bony lesion. Joints: Normal alignment. No effusion. No significant degenerative findings. Soft tissues: Unremarkable. XR/XR knee GIANNI 2V IMPRESSION: No acute process of both knees Electronically authenticated by: DELONTE WELSH Date: 06/09/2023 14:01
--- NOTE | 2023-06-09 11:59 | ED_ITS ---
HPI - Extremity Problem General Chief complaint: Extremity Problem, Nontraumatic Stated complaint: LOWER EXTREMITY PAIN/WEAKNESS TO KNEES Time Seen by Provider: 06/09/23 11:37 Source: patient Mode of arrival: ambulance History of Present Illness HPI Narrative: patient here complaining of severe bilateral knee pain. She does not have a known history of autoimmune or other types of arthritis. She's been undergoing chemotherapy for lung cancer. Her cancer has been doing pretty well but they warned her that she may develop joint and bone pain after chemotherapy. She says the pain was severe that she couldn't even walk. She lives normally very independent lady but she couldn't even walk today. She has a little bit of aching in her right elbow. She is not running a fever. There is no bruising or ecchymosis. She thinks there is local swelling of the right knee. There is not been a change in activity. She's never had surgery on the knee or previous knee aches and pains. Related Data Home Medications Medication Instructions Recorded Confirmed aspirin 81 mg chewable tablet 81 mg PO DAILY 02/02/23 05/29/23 atorvastatin 80 mg tablet 80 mg PO .qhs 02/02/23 05/30/23 isosorbide mononitrate 30 mg 30 mg PO DAILY 02/02/23 05/29/23 tablet,extended release 24 hr metoprolol succinate 50 mg 50 mg PO BID 02/02/23 05/30/23 tablet,extended release 24 hr nitroglycerin 0.4 mg sublingual 0.4 mg sublingual Q5M PRN chest 02/02/23 05/29/23 tablet pain ticagrelor 90 mg tablet (Brilinta) 90 mg PO BID 02/02/23 05/30/23 omeprazole 20 mg capsule,delayed 20 mg PO DAILY 05/09/23 05/30/23 release oxycodone 5 mg tablet 5 mg PO Q12H PRN pain 05/09/23 05/29/23 sucralfate 1 gram tablet (Carafate) 1 g PO BID 05/30/23 05/30/23 Previous Rx's Medication Instructions Recorded albuterol sulfate 90 mcg/actuation 2 inh inhalation Q4H PRN shortness 02/02/23 breath activated powder inhaler of breath #1 ea guaifenesin 600 mg tablet, 600 mg PO BID PRN cough #30 tabs 06/02/23 extended release 12 hr (Mucinex) levofloxacin 750 mg tablet 750 mg PO DAILY 5 days #5 tabs 06/02/23 prednisone 20 mg tablet 20 mg PO BID 5 days #10 tabs 06/02/23 Allergies Allergy/AdvReac Type Severity Reaction Status Date / Time No Known Drug Allergies Allergy Verified 06/09/23 11:36 [facility] Medical History (Updated 06/09/23 @ 13:23 by Edi Kendall MD) Bilateral pneumonia ?J18.9 - Pneumonia, unspecified organism (ICD-10) CAD (coronary artery disease) ?I25.10 - Atherosclerotic heart disease of [place] coronary artery without angina pectoris (ICD-10) COPD (chronic obstructive pulmonary disease) ?J44.9 - Chronic obstructive pulmonary disease, unspecified (ICD-10) Elevated troponin ?R79.89 - Other specified abnormal findings of blood chemistry (ICD-10) Emphysema lung ?J43.9 - Emphysema, unspecified (ICD-10) Hernia ?K46.9 - Unspecified abdominal hernia without obstruction or gangrene (ICD- 10) HTN (hypertension) ?I10 - Essential (primary) hypertension (ICD-10) Hyperlipemia ?E78.5 - Hyperlipidemia, unspecified (ICD-10) IBS (irritable colon syndrome) ?K58.9 - Irritable bowel syndrome without diarrhea (ICD-10) Lung cancer ?C34.90 - Malignant neoplasm of unspecified part of unspecified bronchus or lung (ICD-10) Pneumonia ?J18.9 - Pneumonia, unspecified organism (ICD-10) Tobacco abuse ?Z72.0 - Tobacco use (ICD-10) Surgical History H/O colectomy ?Z90.49 - Acquired absence of other specified parts of digestive tract (ICD- 10) H/O: hysterectomy ?Z90.710 - Acquired absence of both cervix and uterus (ICD-10) History of PTCA ?Z98.61 - Coronary angioplasty status (ICD-10) Family History Mother Family history of CHF (congestive heart failure) Family history of diabetes mellitus Family history of hypertension Family history of myocardial infarction Social History Within the past year, how often did you have a drink containing alcohol: never Score interpretation: A score less than 3 is consistent with normal alcohol consumption. Smoking status: Former smoker Second hand tobacco smoke exposure: Yes Non-prescribed substance use: denies use Previous occupational history: Does not work Known occupational exposures/hazards: No Highest level of school completed/degree received: high school graduate Do you want help with school or training: No Are you now , , , , never or living with a partner: In a typical week, how many times do you talk on the telephone with family, friends, or neighbors: never How often do you get together with friends or relatives: never How often do you attend confucianist or jain services: never Do you belong to any clubs or organizations such as confucianist groups unions, [employer] or athletic groups, or school groups: no Total score: 1 Score interpretation: A score of less than or equal to 1 indicates the most socially isolated. Little interest or pleasure in doing things: several days Feeling down, depressed, or hopeless: several days Feel stressed/tense/nervous/anxious/difficulty sleeping: very much Life stressors: other Life stressor details: Due to disability, difficulty making decisions: No Do you think of yourself as: straight/heterosexual Gender Identity: female Exam Narrative Exam Narrative: this patient is a good historian she is awake alert oriented ?3 she is here by herself. She appears to be uncomfortable. Constitutional she does not appear acutely ill her skin turgor is good because members are moist and pink. No pallor or evidence of anemia. Is no diaphoresis. Examination of her knees show the right knee to have a very small effusion and slight warmth the left knee as pain but no effusion and no real warmth. She has pain whether she is moving or not moving extremity. The anchored the lower limb are normal with no evidence of tissue ischemia or venous thrombosis on either side. She has minor aching in her right elbow but no palpatory findings. Skin and integument are normal with no petechiae purpura rash or evidence of cellulitis. She has minimal aching in her right hip but normal motion. Constitutional Vital Signs, click to edit/add: Last Vital Signs Temp 97.9 F 06/09/23 11:33 Pulse 99 H 06/09/23 11:33 Resp 18 06/09/23 11:33 BP 128/92 H 06/09/23 12:43 Pulse Ox 93 L 06/09/23 12:43 O2 Del Method Nasal Cannula 06/09/23 11:33 O2 Flow Rate 2 06/09/23 12:40 Course Vital Signs Vital signs: Vital Signs Temperature 97.9 F 06/09/23 11:33 Pulse Rate 99 H 06/09/23 11:33 Respiratory Rate 18 06/09/23 11:33 Blood Pressure 108/87 06/09/23 11:33 Pulse Oximetry 97 06/09/23 11:33 Oxygen Delivery Method Nasal Cannula 06/09/23 11:33 Oxygen Delivery Flow Rate 2 06/09/23 11:33 Temperature 97.9 F 06/09/23 11:33 Pulse Rate 99 H 06/09/23 11:33 Respiratory Rate 18 06/09/23 11:33 Blood Pressure 128/92 H 06/09/23 12:43 Pulse Oximetry 93 L 06/09/23 12:43 Oxygen Delivery Method Nasal Cannula 06/09/23 11:33 Oxygen Delivery Flow Rate 2 06/09/23 12:40 MDM - Extremity (Nontraumatic) MDM Narrative Medical decision making narrative: patient's x-rays do not show any obvious abnormalities. Her uric acid level is normal. I discussed this both her oncologist however right now she does not have a committed primary care doctor. She did respond to the analgesics we gave her here. I wonders to start applying ice placed on NSAIDs and analgesics. Lab Data Labs: Lab Results 06/09/23 Range/Units 12:22 Uric Acid 4.8 (2.6-6.0) mg/dL Discharge Plan Discharge Chief Complaint: Extremity Problem, Nontraumatic Clinical Impression: Polyarthritis Patient Disposition: Home, Self-Care Time of Disposition Decision: 13:23 Prescriptions / Home Meds: No Action omeprazole 20 mg capsule,delayed release(DR/EC) 20 mg PO DAILY oxycodone 5 mg tablet 5 mg PO Q12H PRN (Reason: pain) Rx Instructions: may take 1 or 2 tabs aspirin 81 mg tablet,chewable 81 mg PO DAILY atorvastatin 80 mg tablet 80 mg PO .qhs isosorbide mononitrate 30 mg tablet extended release 24 hr 30 mg PO DAILY metoprolol succinate 50 mg tablet extended release 24 hr 50 mg PO BID nitroglycerin 0.4 mg tablet, sublingual 0.4 mg sublingual Q5M PRN (Reason: chest pain) Brilinta 90 mg tablet 90 mg PO BID Hold Instructions: Doctor's Order albuterol sulfate 90 mcg/actuation aerosol powdr breath activated 2 inh inhalation Q4H PRN (Reason: shortness of breath) Qty: 1 0RF sucralfate [Carafate] 1 gram tablet 1 g PO BID prednisone 20 mg tablet 20 mg PO BID 5 Days Qty: 10 0RF levofloxacin 750 mg tablet 750 mg PO DAILY 5 Days Qty: 5 0RF guaifenesin [Mucinex] 600 mg tablet extended release 12hr 600 mg PO BID PRN (Reason: cough) Qty: 30 0RF Additional Instructions: Anaprox for three days only/cold compresses/[place]/follow up with primary care or return here if not improved Stand Alone Forms: Portal Instructions Referrals: Shaikh Morfin MD [Primary Care Provider] - 1 week
[2023-06-09] MEDS: HYDROMORPHONE HCL 1 MG/ML CARTRIDGE IM (12:10)
[2023-06-09 12:43] VITALS: BP 128/92; O2SAT 93
[2023-06-09 12:49] LABS: Uric Acid 4.8 mg/dL (2.6-6.0)
[2023-06-09 13:00] VITALS: BP 121/78; O2SAT 94
[2023-06-09 13:10] VITALS: O2SAT 94
[2023-06-09 13:20] VITALS: O2SAT 96
[2023-06-09 13:30] VITALS: BP 108/78; O2SAT 95
== END 2023-06-09 13:54 | disposition home or self-care (01) ==
PROVIDERS: Emergency Provider Emergency Medicine Emergency Medical Services; PCP Internal Medicine
DX: M13.0 Polyarthritis, unspecified (principal); M25.561 Pain in right knee; Z79.899 Other long term (current) drug therapy; Z79.60 Long term (current) use of unspecified immunomodulators and immunosuppressants; Z79.82 Long term (current) use of aspirin; I25.10 Atherosclerotic heart disease of native coronary artery without angina pectoris; J43.9 Emphysema, unspecified; Z87.01 Personal history of pneumonia (recurrent); I10 Essential (primary) hypertension; E78.5 Hyperlipidemia, unspecified; C34.90 Malignant neoplasm of unspecified part of unspecified bronchus or lung; Z90.49 Acquired absence of other specified parts of digestive tract; Z98.61 Coronary angioplasty status; Z90.710 Acquired absence of both cervix and uterus; Z87.891 Personal history of nicotine dependence
CPT/HCPCS: 36415; 73560; 84550; 96372; 99284; J1170

== ENCOUNTER 2023-06-20 12:14 | Observation (INO) | payer OTHER, SELFPAY ==
[2023-06-20] VITALS (32 sets, daily range): BP systolic 111–145; BP diastolic 79–97; PULSE 84–150; RESP 10–28; TEMP 36.6–36.7; O2SAT 91–98; BMI 25.4; BMI 26.1
--- NOTE | 2023-06-20 12:23 | ECG_ITS ---
The [facility] Test Date: 2023-06-20 Pat Name: JEANMARIE ECHEVARRIA Department: Room: - Gender: Female Bar Assistant: : 1965 Requested By: SHAIKH ABBY Order Number: [id number] Reading MD: JARVIS REYES Measurements Intervals [place] Rate: 133 P: 22 SD: 150 QRS: 25 QRSD: 90 T: 165 QT: 326 QTc: 404 Interpretive Statements 1120 supraventricular tachycardia, can't exclude atrial fibrillation 5234 Left ventricular hypertrophy with repolarization abnormality 6220 Possible left atrial enlargement 9150 abnormal ECG Electronically Signed On 06-21-2023 7:13:34 EDT by JARVIS REYES
--- NOTE | 2023-06-20 12:23 | XR_ITS ---
The [address] [address] Patient Name: JEANMARIE ECHEVARRIA MRN: [id number] date: 1965 Sex: F Assigned Patient Location: ER Current Patient Location: ER Accession/Order Number: [id number] Exam Date: 06/20/2023 13:12 Report Date: 06/20/2023 13:38 At the request of: IVANA DAVALOS Procedure: XR chest 2V EXAMINATION: XR chest 2V HISTORY: tachycardia ; bronchoscopy and stent removal yesterday COMPARISON: CTA chest 05/29/2023, XR chest 05/15/2023 FINDINGS: LUNGS: Opacities within left lung base obscuring the diaphragm and lower heart margin. Obscuration of the left lateral costophrenic angle and mild stranding within lateral mid lung. VASCULATURE: No increased pulmonary vasculature. PLEURA: No pneumothorax. CARDIAC: No cardiomegaly or cardiac silhouette abnormality. MEDIASTINUM: No visible mass or adenopathy. BONES: No fracture or visible bone lesion. OTHER: Stable Port-A-Cath projecting over right hemithorax. XR/XR chest 2V IMPRESSION: 1. Persistent dense consolidation/passive atelectasis within left lower lobe and lingula; grossly stable allowing for differences in technique compared to the CTA CHEST 05/29/2023; suspect residual passive atelectasis from bronchial obstruction/mucus plugging. Pleural effusion cannot be excluded. Electronically authenticated by: MARIANN MARQUES Date: 06/20/2023 13:38
[2023-06-20] MEDS: 0.9 % SODIUM CHLORIDE 1,000 ML 999 ML IV (12:35)
[2023-06-20 13:00] LABS: Basophils Percent Auto 0.3 % (0.2-2.0); Eosinophils Absolute Auto 0.1 10^3/uL (0.0-0.7); Eosinophils Percent Auto 0.9 % (0.9-7.0); Hematocrit 35.2 % (36.0-48.0); Hemoglobin 11.8 g/dL (12.0-16.0); Immature Granulocytes Abs Auto 0.15 10^3/uL (0.00-0.03); Immature Granulocytes Pct Auto 1.4 % (0.0-0.5); Lymphocytes Percent Auto 9.5 % (20.5-60.0); Mean Corpuscular HGB Conc 33.5 g/dL (29.9-35.2); Mean Corpuscular Hemoglobin 33.1 pg (26.7-34.0); Mean Corpuscular Volume 98.6 fL (81.0-99.0); Mean Platelet Volume 9.8 fL (9.5-13.5); Monocytes Absolute Auto 0.9 10^3/uL (0.3-0.8); Monocytes Percent Auto 8.4 % (1.7-12.0); Neutrophils Absolute Auto 8.3 10^3/uL (1.4-6.5); Neutrophils Percent Auto 79.5 % (43.0-75.0); Platelet Count 261 10^3/uL (150-450); Red Blood Count 3.57 10^6/uL (4.20-5.40); Red Cell Distribution Width 23.5 % (11.0-15.0); White Blood Count 10.5 10^3/uL (4.0-11.0)
[2023-06-20 13:25] LABS: Alanine Aminotransferase 49 U/L (14-59); Albumin Globulin Ratio 0.8; Albumin Level 3.3 g/dL (3.4-5.0); Alkaline Phosphatase 166 U/L (46-116); Anion Gap 14.4; Aspartate Amino Transferase 29 U/L (15-37); BUN Creatinine Ratio 18.8; Bilirubin Total 0.4 mg/dL (0.2-1.0); Calcium 8.8 mg/dL (8.5-10.1); Carbon Dioxide 26.5 mmol/L (21.0-32.0); Chloride 103 mmol/L (98-107); Estimated GFR (African America >60 (>=60); Estimated GFR (Non-African Ame >60 (>=60); Globulin 3.9 g/dL; Glucose 98 mg/dL (74-106); Magnesium 1.5 mg/dL (1.8-2.4); Sodium 141 mmol/L (136-145); Total Protein 7.2 g/dL (6.4-8.2)
[2023-06-20 13:29] LABS: Potassium 2.9 mmol/L (3.5-5.1)
--- NOTE | 2023-06-20 14:13 | ED_ITS ---
HPI - General Adult General Chief complaint: Arrhythmia/Palpitations Stated complaint: FAST HEART RATE Time Seen by Provider: 06/20/23 12:19 Source: patient Mode of arrival: Wheelchair Limitations: no limitations History of Present Illness HPI narrative: Patient sent to the ED from the infusion center after her HR at check in was 140-150bpm - Dr Rodriguez - Hem/Onc - came to the ED to give me report. The patient has stage 3 Non Small Cell lung cancer. She underwent endobronchial stenting at [facility] about 6 weeks ago and underwent chemotherapy and radiation therapy for treatment of the cancer and finished that about 2 weeks ago. She went back to [facility] yesterday and had the stent removed - she apparently saw Dr Christian. While there in PACU she had tachycardia and was given a dose of Cardizem. She already has a follow up appointment with her bill cutter in [place]. They discharged the patient home with a prescription for additional cardizem but she has not gone to the pharmacy to pick that up yet. The patient states that her chronic shortness of breath is no different today than it was 6 weeks ago when she was irst diagnosed with the lung mass and started on therapy. She has chronic COPD and is a custodial smoker who was evaluated in the ED several times recently and diagnosed with COPD exacerbation. She denies any chest pain, pressure or tightness. Related Data Home Medications Medication Instructions Recorded Confirmed aspirin 81 mg chewable tablet 81 mg PO DAILY 02/02/23 06/20/23 atorvastatin 80 mg tablet 80 mg PO .qhs 02/02/23 06/20/23 isosorbide mononitrate 30 mg 30 mg PO DAILY 02/02/23 06/20/23 tablet,extended release 24 hr metoprolol succinate 50 mg 50 mg PO .QD 02/02/23 06/20/23 tablet,extended release 24 hr nitroglycerin 0.4 mg sublingual 0.4 mg sublingual Q5M PRN chest 02/02/23 06/20/23 tablet pain omeprazole 20 mg capsule,delayed 40 mg PO DAILY 05/09/23 06/20/23 release bupropion HCl 150 mg 24 hr tablet, 150 mg PO DAILY 06/20/23 06/20/23 extended release diltiazem HCl 120 mg 120 mg PO Q24H 06/20/23 06/20/23 capsule,extended release 24 hr (Cartia XT) Previous Rx's Medication Instructions Recorded albuterol sulfate 90 mcg/actuation 2 inh inhalation Q4H PRN shortness 02/02/23 breath activated powder inhaler of breath #1 ea guaifenesin 600 mg tablet, 600 mg PO BID PRN cough #30 tabs 06/02/23 extended release 12 hr (Mucinex) Allergies Allergy/AdvReac Type Severity Reaction Status Date / Time No Known Drug Allergies Allergy Verified 06/09/23 11:36 PFSH PFS Medical History (Updated 06/20/23 @ 14:41 by Drew Hayes) Bilateral pneumonia ?J18.9 - Pneumonia, unspecified organism (ICD-10) CAD (coronary artery disease) ?I25.10 - Atherosclerotic heart disease of [place] coronary artery without angina pectoris (ICD-10) COPD (chronic obstructive pulmonary disease) ?J44.9 - Chronic obstructive pulmonary disease, unspecified (ICD-10) Elevated troponin ?R79.89 - Other specified abnormal findings of blood chemistry (ICD-10) Emphysema lung ?J43.9 - Emphysema, unspecified (ICD-10) Hernia ?K46.9 - Unspecified abdominal hernia without obstruction or gangrene (ICD- 10) HTN (hypertension) ?I10 - Essential (primary) hypertension (ICD-10) Hyperlipemia ?E78.5 - Hyperlipidemia, unspecified (ICD-10) IBS (irritable colon syndrome) ?K58.9 - Irritable bowel syndrome without diarrhea (ICD-10) Lung cancer ?C34.90 - Malignant neoplasm of unspecified part of unspecified bronchus or lung (ICD-10) Pneumonia ?J18.9 - Pneumonia, unspecified organism (ICD-10) Tobacco abuse ?Z72.0 - Tobacco use (ICD-10) Surgical History H/O colectomy ?Z90.49 - Acquired absence of other specified parts of digestive tract (ICD- 10) H/O: hysterectomy ?Z90.710 - Acquired absence of both cervix and uterus (ICD-10) History of PTCA ?Z98.61 - Coronary angioplasty status (ICD-10) Family History Mother Family history of CHF (congestive heart failure) Family history of diabetes mellitus Family history of hypertension Family history of myocardial infarction Social History Within the past year, how often did you have a drink containing alcohol: never Score interpretation: A score less than 3 is consistent with normal alcohol consumption. Smoking status: Former smoker Second hand tobacco smoke exposure: Yes Non-prescribed substance use: denies use Previous occupational history: Does not work Known occupational exposures/hazards: No Highest level of school completed/degree received: high school graduate Do you want help with school or training: No Are you now , , , , never or living with a partner: In a typical week, how many times do you talk on the telephone with family, friends, or neighbors: never How often do you get together with friends or relatives: never How often do you attend baptism or worship services: never Do you belong to any clubs or organizations such as baptism groups unions, [employer] or athletic groups, or school groups: no Total score: 1 Score interpretation: A score of less than or equal to 1 indicates the most socially isolated. Little interest or pleasure in doing things: several days Feeling down, depressed, or hopeless: several days Feel stressed/tense/nervous/anxious/difficulty sleeping: very much Life stressors: other Life stressor details: Due to disability, difficulty making decisions: No Do you think of yourself as: straight/heterosexual Gender Identity: female Exam Narrative Exam Narrative: Nurses notes and vital signs reviewed and patient is not hypoxic. afebrile General: No apparent distress. Skin: Warm, dry, no pallor noted. No rash. Head: Normocephalic, atraumatic. Neck: Supple, non-tender. no cervical lymphadenopathy Eye: Pupils are equal, round and EOMI. No scleral icterus. Ears, Nose, Mouth, and Throat: Oral mucosa is lately dry Cardiovascular: Regular tachycardia Respiratory: No accessory muscle use or respiratory distress. Lungs with scattered rhonchi throughout Chest Wall: anterior chest wall tenderness at the site of her port Musculoskeletal: normal ROM, no calf or popliteal tenderness, no lower extremity edema/swelling GI: Abdomen is soft, non-distended. Normal bowel sounds. No tenderness to palpation. No rebound, guarding, or rigidity noted. Neurological: A&O x4. No cranial nerve dysfunction observed. No truncal ataxia. Moves all extremities. Sensation intact. Psychiatric: Cooperative and interactive. Normal mood and affect. Constitutional Vital Signs, click to edit/add: Last Vital Signs Temp 97.9 F 06/20/23 16:57 Pulse 150 H 06/20/23 17:20 Resp 16 06/20/23 16:57 BP 140/97 H 06/20/23 17:19 Pulse Ox 97 06/20/23 16:57 O2 Del Method Nasal Cannula 06/20/23 16:57 O2 Flow Rate 2 06/20/23 16:57 Course Vital Signs Vital signs: Vital Signs Temperature 98 F 06/20/23 12:26 Pulse Rate 135 H 06/20/23 12:26 Respiratory Rate 24 06/20/23 12:26 Blood Pressure 145/95 H 06/20/23 12:26 Pulse Oximetry 95 06/20/23 12:26 Oxygen Delivery Method Room Air 06/20/23 12:26 Temperature 97.9 F 06/20/23 16:57 Pulse Rate 150 H 06/20/23 17:20 Respiratory Rate 16 06/20/23 16:57 Blood Pressure 140/97 H 06/20/23 17:19 Pulse Oximetry 97 06/20/23 16:57 Oxygen Delivery Method Nasal Cannula 06/20/23 16:57 Oxygen Delivery Flow Rate 2 06/20/23 16:57 Medical Decision Making MDM Narrative Medical decision making narrative: Patient was placed on monitoring analyst and EKG obtained. Blood drawn and sent for evaluation, including lactate and blood cultures per protocol. two-view chest x-ray was obtained. White blood cell count and lactate are normal. Slight decrease in potassium and magnesium was found. Patient ordered to receive IV magnesium and additional IV fluid with potassium. Despite the fluid she remains tachycardic. Call placed to the on-call admitting physician, Dr Wilde, and he will admit the patient on behalf of her PCP, Dr Morfin. [facility], Obs status. He was informed that the patient sees Dr Gongora at [facility] for her cardiac care - he may have our [facility] cardiology group see her during her admission. She was not happy about needing admission but is willing to stay overnight. Medical Records Medical records reviewed: Yes I reviewed the patient's medical records Medical records narrative: I reviewed her recent Emergency Department visits Lab Data Lab results reviewed: Yes I reviewed the patient's lab results Labs: Lab Results 06/20/23 06/20/23 Range/Units 12:40 12:46 WBC 10.5 (4.0-11.0) 10^3/uL RBC 3.57 L (4.20-5.40) 10^6/uL Hgb 11.8 L (12.0-16.0) g/dL Hct 35.2 L (36.0-48.0) % MCV 98.6 (81.0-99.0) fL MCH 33.1 (26.7-34.0) pg MCHC 33.5 (29.9-35.2) g/dL RDW 23.5 H (11.0-15.0) % Plt Count 261 (150-450) 10^3/uL MPV 9.8 (9.5-13.5) fL Neut % (Auto) 79.5 H (43.0-75.0) % Lymph % (Auto) 9.5 L (20.5-60.0) % [place] % (Auto) 8.4 (1.7-12.0) % Eos % (Auto) 0.9 (0.9-7.0) % Baso % (Auto) 0.3 (0.2-2.0) % Neut # (Auto) 8.3 H (1.4-6.5) 10^3/uL Lymph # (Auto) 1.0 L (1.2-3.8) 10^3/uL [place] # (Auto) 0.9 H (0.3-0.8) 10^3/uL Eos # (Auto) 0.1 (0.0-0.7) 10^3/uL Baso # (Auto) 0.0 (0.0-0.1) 10^3/uL Abs Immat Gran (auto) 0.15 H (0.00-0.03) 10^3/uL Imm/Tot Granulo (auto) 1.4 H (0.0-0.5) % Sodium 141 (136-145) mmol/L Potassium 2.9 L* (3.5-5.1) mmol/L Chloride 103 (98-107) mmol/L Carbon Dioxide 26.5 (21.0-32.0) mmol/L Anion Gap 14.4 BUN 12.0 (7.0-18.0) mg/dL Creatinine 0.64 (0.55-1.02) mg/dL Est GFR ( Amer) >60 (>=60) Est GFR (Non-Af Amer) >60 (>=60) BUN/Creatinine Ratio 18.8 Glucose 98 (74-106) mg/dL Lactate 2.0 (0.4-2.0) mmol/L Calcium 8.8 (8.5-10.1) mg/dL Magnesium 1.5 L (1.8-2.4) mg/dL Total Bilirubin 0.4 (0.2-1.0) mg/dL AST 29 (15-37) U/L ALT 49 (14-59) U/L Alkaline Phosphatase 166 H (46-116) U/L Total Protein 7.2 (6.4-8.2) g/dL Albumin 3.3 L (3.4-5.0) g/dL Globulin 3.9 g/dL Albumin/Globulin Ratio 0.8 ECG Data Attestation: ?I have reviewed the pertinent ECG results. Interpretation: EKG interpretation: Emergency Department physician interpretation. Sinus tachycardia at 133bpm. LVH and LAD noted. no ST segment elevation found. Discharge Plan Discharge Chief Complaint: Arrhythmia/Palpitations Clinical Impression: Tachycardia, Acute hypokalemia, Hypomagnesemia Patient Disposition: Admitted as Observation Time of Disposition Decision: 14:41 Discharge Date/Time: 06/20/23 15:25
[2023-06-20] MEDS: MAGNESIUM SULFATE/D5W 1 GM/100 ML PIGGYBACK IV (14:29)
[2023-06-20] MEDS: POTASSIUM CHLORIDE 10 MEQ ER TABLET 40 MEQ PO (14:45)
[2023-06-20] MEDS: POTASSIUM CHLORIDE IN 0.9%NACL 1,000 ML 200 MEQ IV (14:47)
--- NOTE | 2023-06-20 16:55 | CT_ITS ---
[address] [address] Patient Name: JEANMARIE ECHEVARRIA MRN: [id number] date: 1965 Sex: F Assigned Patient Location: MS Current Patient Location: Accession/Order Number: [id number] Exam Date: 06/20/2023 17:28 Report Date: 06/20/2023 18:43 At the request of: SORAYA AIKEN Procedure: CT angio chest EXAM: CT angio chest; [id number] REASON FOR EXAM: tachy TECHNIQUE: Helical CT images of the chest were obtained after the administration of IV contrast. Multiplanar reformats and maximum intensity projection images were created at the scanner. Dose reduction technique used: Automated exposure control and/or adjustment of the mA and/or kV according to patient size and/or use of iterative reconstruction technique. COMPARISON: Chest CT 05/29/2023. FINDINGS: Technical quality: Good. Chest: Support devices: Venous catheter terminates in the upper one third of the SVC. Visualized Thyroid: No nodules. Chest wall: Right upper thoracic Port-A-Cath present. Laura/mediastinum/esophagus: Ill-defined infiltrative soft tissue attenuation surrounding the lower trachea and bilateral mainstem bronchi, mildly improved. Thoracic lymph nodes: No enlarged supraclavicular, mediastinal, hilar or axillary lymph nodes. Heart and vasculature: -No pulmonary artery filling defect to suggest pulmonary embolism. -No pericardial effusion or aortic aneurysm. Visualized portions of the upper abdomen: Within normal limits. Musculoskeletal: No acute abnormality or suspicious osseous lesion. Lungs/airways: -Moderate focal left basilar consolidation is mildly improved compared with 05/29/2023. -There are a few solid micronodules which are similar. -No new or worsening infiltrate. -Mild focal narrowing of the left mainstem bronchus which is patent status post removal of the left bronchial stent. Pleura: No pleural effusion or pneumothorax. CT/CT angio chest IMPRESSION: 1. No pulmonary embolism. 2. Moderate left basilar consolidation is mildly improved compared with 05/29/2023. 3. Ill-defined and infiltrative soft tissues surrounding the lower trachea and mainstem bronchi is mildly improved. 4. No new or worsening cardiopulmonary abnormality demonstrated. Electronically authenticated by: DONNY KERN Date: 06/20/2023 18:43
[2023-06-20] MEDS: DILTIAZEM HCL 60 MG TABLET PO ×2 (17:19→21:21)
[2023-06-20] MEDS: METOPROLOL SUCCINATE 100 MG TAB.ER.24H PO (17:21)
[2023-06-20 18:05] LABS: Lactate/Lactic Acid 1.6 mmol/L (0.4-2.0)
[2023-06-20 18:09] LABS: Troponin I High Sensitivity 56.3 pg/mL (4.0-51.3)
[2023-06-20 18:14] LABS: Thyroid Stimulating Hormone 0.316 uIU/mL (0.358-3.740)
--- NOTE | 2023-06-20 20:19 | RESP.RT ---
Pt denies need for breathing tx at this time. No respiratory distress noted. Pt made aware to call if needed.
[2023-06-20 21:19] LABS: Magnesium 1.6 mg/dL (1.8-2.4); Potassium 3.8 mmol/L (3.5-5.1)
[2023-06-20 21:21] LABS: Troponin I High Sensitivity 60.2 pg/mL (4.0-51.3)
[2023-06-20] MEDS: ATORVASTATIN CALCIUM 40 MG TABLET 80 MG PO (21:21)
[2023-06-20] MEDS: LACTATED RINGER'S SOLUTION 1,000 ML 100 ML IV (21:21)
[2023-06-21] VITALS (7 sets, daily range): BP systolic 109; BP diastolic 65; PULSE 64–74; RESP 16; TEMP 36.6; O2SAT 95–96
[2023-06-21 00:20] LABS: Troponin I High Sensitivity 64.6 pg/mL (4.0-51.3)
[2023-06-21 04:42] LABS: Basophils Percent Auto 0.3 % (0.2-2.0); Eosinophils Absolute Auto 0.1 10^3/uL (0.0-0.7); Neutrophils Absolute Auto 5.2 10^3/uL (1.4-6.5); Platelet Count 211 10^3/uL (150-450); White Blood Count 7.3 10^3/uL (4.0-11.0)
[2023-06-21 05:11] LABS: Alanine Aminotransferase 37 U/L (14-59); Albumin Globulin Ratio 0.8; Albumin Level 2.6 g/dL (3.4-5.0); Alkaline Phosphatase 128 U/L (46-116); Anion Gap 11.6; Aspartate Amino Transferase 20 U/L (15-37); BUN Creatinine Ratio 11.5; Bilirubin Total 0.2 mg/dL (0.2-1.0); Calcium 8.5 mg/dL (8.5-10.1); Carbon Dioxide 26.2 mmol/L (21.0-32.0); Chloride 106 mmol/L (98-107); Estimated GFR (African America >60 (>=60); Estimated GFR (Non-African Ame >60 (>=60); Globulin 3.1 g/dL; Glucose 98 mg/dL (74-106); Magnesium 1.6 mg/dL (1.8-2.4); Potassium 3.8 mmol/L (3.5-5.1); Sodium 140 mmol/L (136-145); Total Protein 5.7 g/dL (6.4-8.2)
[2023-06-21] MEDS: DILTIAZEM HCL 60 MG TABLET PO (06:20)
[2023-06-21] MEDS: OMEPRAZOLE 20 MG CAPSULE.DR 40 MG PO (06:20)
[2023-06-21 06:52] LABS: Red Cell Distribution Width 24.2 % (11.0-15.0)
[2023-06-21 06:53] LABS: Hemoglobin 9.6 g/dL (12.0-16.0); Mean Corpuscular HGB Conc 33.1 g/dL (29.9-35.2); Mean Corpuscular Hemoglobin 33.7 pg (26.7-34.0); Mean Corpuscular Volume 101.8 fL (81.0-99.0); Mean Platelet Volume 10.3 fL (9.5-13.5)
[2023-06-21 06:54] LABS: Eosinophils Percent Auto 1.5 % (0.9-7.0); Immature Granulocytes Pct Auto 2.2 % (0.0-0.5); Lymphocytes Absolute Auto 1.2 10^3/uL (1.2-3.8); Lymphocytes Percent Auto 15.6 % (20.5-60.0); Monocytes Percent Auto 10.2 % (1.7-12.0); Neutrophils Percent Auto 70.2 % (43.0-75.0)
[2023-06-21 06:55] LABS: Monocytes Absolute Auto 0.8 10^3/uL (0.3-0.8)
[2023-06-21 06:57] LABS: Immature Granulocytes Abs Auto 0.16 10^3/uL (0.00-0.03)
[2023-06-21 07:02] LABS: Red Blood Count 2.85 10^6/uL (4.20-5.40)
[2023-06-21] MEDS: LACTATED RINGER'S SOLUTION 1,000 ML 100 ML IV (07:09)
[2023-06-21] MEDS: METOPROLOL SUCCINATE 100 MG TAB.ER.24H PO (08:28)
[2023-06-21] MEDS: BUPROPION HCL 150 MG XL TABLET 24H PO (08:28)
[2023-06-21] MEDS: ISOSORBIDE MONONITRATE 30 MG TAB.ER.24H PO (08:28)
[2023-06-21] MEDS: ASPIRIN 81 MG TAB.CHEW PO (08:28)
--- NOTE | 2023-06-21 08:39 | P.HP_ITS ---
H&P: HPI History of Present Illness Chief complaint: FAST HEART RATE Hypokarenia tachycardia Narrative: Patient with pain and evaluated in the emergency room with increasing heart rate, shortness of breath. She does wear 2 L of oxygen at home. Saturations were not significant and it felt decreased. Unable to improved heart rate with IV medications in ER patient was admitted for work-up and treatment of same. Review of Systems ROS Status of ROS 10 or more systems reviewed and unremarkable except as noted in history and below Constitutional Denies: fever or chills Eyes Denies: change in vision Ears, nose, mouth, and throat Denies: throat pain Cardiovascular Reports: palpitations; Denies: chest pain or edema Respiratory Reports: shortness of breath and cough Gastrointestinal Denies: abdominal pain Genitourinary Denies: painful urination Endocrine Denies: excessive urination Hematologic/Lymphatic Denies: easy bruising PFSH [facility] Medical History (Updated 06/20/23 @ 14:41 by Drew Hayes) Bilateral pneumonia ?J18.9 - Pneumonia, unspecified organism (ICD-10) CAD (coronary artery disease) ?I25.10 - Atherosclerotic heart disease of [place] coronary artery without angina pectoris (ICD-10) COPD (chronic obstructive pulmonary disease) ?J44.9 - Chronic obstructive pulmonary disease, unspecified (ICD-10) Elevated troponin ?R79.89 - Other specified abnormal findings of blood chemistry (ICD-10) Emphysema lung ?J43.9 - Emphysema, unspecified (ICD-10) Hernia ?K46.9 - Unspecified abdominal hernia without obstruction or gangrene (ICD- 10) HTN (hypertension) ?I10 - Essential (primary) hypertension (ICD-10) Hyperlipemia ?E78.5 - Hyperlipidemia, unspecified (ICD-10) IBS (irritable colon syndrome) ?K58.9 - Irritable bowel syndrome without diarrhea (ICD-10) Lung cancer ?C34.90 - Malignant neoplasm of unspecified part of unspecified bronchus or lung (ICD-10) Pneumonia ?J18.9 - Pneumonia, unspecified organism (ICD-10) Tobacco abuse ?Z72.0 - Tobacco use (ICD-10) Surgical History H/O colectomy ?Z90.49 - Acquired absence of other specified parts of digestive tract (ICD- 10) H/O: hysterectomy ?Z90.710 - Acquired absence of both cervix and uterus (ICD-10) History of PTCA ?Z98.61 - Coronary angioplasty status (ICD-10) Family History Mother Family history of CHF (congestive heart failure) Family history of diabetes mellitus Family history of hypertension Family history of myocardial infarction Social History Within the past year, how often did you have a drink containing alcohol: never Score interpretation: A score less than 3 is consistent with normal alcohol consumption. Smoking status: Former smoker Second hand tobacco smoke exposure: Yes Non-prescribed substance use: denies use Previous occupational history: Does not work Known occupational exposures/hazards: No Highest level of school completed/degree received: high school graduate Do you want help with school or training: No Are you now , , , , never or living with a partner: In a typical week, how many times do you talk on the telephone with family, friends, or neighbors: never How often do you get together with friends or relatives: never How often do you attend anabaptist or mosque services: never Do you belong to any clubs or organizations such as anabaptist groups unions, fraternal or athletic groups, or school groups: no Total score: 1 Score interpretation: A score of less than or equal to 1 indicates the most socially isolated. Little interest or pleasure in doing things: several days Feeling down, depressed, or hopeless: several days Feel stressed/tense/nervous/anxious/difficulty sleeping: very much Life stressors: other Life stressor details: Due to disability, difficulty making decisions: No Do you think of yourself as: straight/heterosexual Gender Identity: female Meds Home Medications and Allergies Home Medications Medication Instructions Recorded Confirmed Type albuterol sulfate 90 mcg/actuation 2 inh inhalation Q4H PRN shortness 02/02/23 06/20/23 Rx breath activated powder inhaler of breath #1 ea aspirin 81 mg chewable tablet 81 mg PO DAILY 02/02/23 06/20/23 History atorvastatin 80 mg tablet 80 mg PO .qhs 02/02/23 06/20/23 History isosorbide mononitrate 30 mg 30 mg PO DAILY 02/02/23 06/20/23 History tablet,extended release 24 hr nitroglycerin 0.4 mg sublingual 0.4 mg sublingual Q5M PRN chest 02/02/23 06/20/23 History tablet pain omeprazole 20 mg capsule,delayed 40 mg PO DAILY 05/09/23 06/20/23 History release guaifenesin 600 mg tablet, 600 mg PO BID PRN cough #30 tabs 06/02/23 06/20/23 Rx extended release 12 hr (Mucinex) bupropion HCl 150 mg 24 hr tablet, 150 mg PO DAILY 06/20/23 06/20/23 History extended release diltiazem HCl 240 mg 240 mg PO DAILY #30 caps 06/21/23 Rx capsule,extended release 24 hr (Cardizem CD) metoprolol succinate 100 mg 100 mg PO QD #30 tabs 06/21/23 Rx tablet,extended release 24 hr Allergies Allergy/AdvReac Type Severity Reaction Status Date / Time No Known Drug Allergies Allergy Verified 06/09/23 11:36 Exam Constitutional Vital Signs, click to edit/add: Last Vital Signs Temp 97.9 F 06/21/23 06:00 Pulse 73 06/21/23 07:46 Resp 16 06/21/23 06:00 BP 109/65 06/21/23 06:20 Pulse Ox 95 06/21/23 06:00 O2 Del Method Room Air 06/21/23 06:00 O2 Flow Rate 2 06/21/23 05:06 Documenting provider has reviewed patient's vital signs: yes Common normals: no apparent distress Chest Common normals: inspection of chest normal Respiratory Common normals: normal respiratory effort, no retractions and clear to auscultation bilaterally Cardio Common normals: regular rate, regular rhythm and no murmurs GI Common normals: Normal to inspection, nondistended, normoactive bowel sounds present Results Labs Labs: Short CBC 06/20/23 06/21/23 Range/Units 12:40 03:59 WBC 10.5 7.3 (4.0-11.0) 10^3/uL Hgb 11.8 L 9.6 L (12.0-16.0) g/dL Hct 35.2 L 29.0 L (36.0-48.0) % Plt Count 261 211 (150-450) 10^3/uL BMP 06/20/23 06/20/23 06/21/23 12:46 20:49 03:59 Sodium 141 140 Potassium 2.9 L* 3.8 3.8 Chloride 103 106 Carbon Dioxide 26.5 26.2 BUN 12.0 6.0 L Creatinine 0.64 0.52 L Glucose 98 98 Calcium 8.8 8.5 Liver Function 06/20/23 06/21/23 Range/Units 12:46 03:59 Total Bilirubin 0.4 0.2 (0.2-1.0) mg/dL AST 29 20 (15-37) U/L ALT 49 37 (14-59) U/L Alkaline Phosphatase 166 H 128 H (46-116) U/L Albumin 3.3 L 2.6 L (3.4-5.0) g/dL Assessment and Plan Assessment and Plan (1) Polyarthritis: (2) Tachycardia: (3) Acute hypokalemia: (4) Hypomagnesemia: Plan Sinus tachycardia, hypertension, mild hypoxia, hypomagnesemia, hypokalemia resulting in sinus tachycardia, medications were adjusted overnight, CTA performed to rule out pulmonary embolism which was negative. X-ray looks improved from previous CT scans. With medication adjusted overnight her heart rate improved back to normal. She feels back to her normal self. To be discharged home in improving condition. Medications see list. Follow-up with her PCP and oncology as already scheduled. For sinus tachycardia did double her dose of metoprolol and Cardizem For hypomagnesemia recommend taking OTC 400 mg twice daily She has mild protein calorie malnutrition with her cancer needs to try to improve protein intake.
--- NOTE | 2023-06-21 08:48 | CM.NOTE ---
Rounds made with Dr. Wilde. Potential discharge later today.
[2023-06-21] MEDS: MAGNESIUM OXIDE 400 MG TABLET PO (09:11)
--- NOTE | 2023-06-23 12:39 | CM.DCFOLLOWU ---
1st attempt call back- no answer
--- NOTE | 2023-06-26 13:32 | CM.DCFOLLOWU ---
Person spoke with: Leann How are you feeling? Good How is your pain? No pain Did you understand your discharge instructions? Yes Do you have any questions about your discharge instructions? No Were you given any prescriptions at discharge? Yes Were you able to get your prescriptions filled? Yes Do you understand how to take your medications as ordered? Yes Do you have any questions about your follow up appointment and do you plan to keep your follow up appointment? Tomorrow with Jennifer and Wed with Dr. Wilde and plan on attending Is there anything else that you would like to discuss? No Questions/Comments/Concerns/Other:
== END 2023-06-21 09:29 | disposition home or self-care (01) ==
LOC: ER 14:41 → MS 15:10
PROVIDERS: Admitting Provider Family Medicine; Emergency Provider Emergency Medicine; PCP Internal Medicine; Visit Provider Family Medicine
DX: R00.0 Tachycardia, unspecified (principal); I10 Essential (primary) hypertension; R09.02 Hypoxemia; E83.42 Hypomagnesemia; E87.6 Hypokalemia; E44.1 Mild protein-calorie malnutrition; Z99.81 Dependence on supplemental oxygen; I25.10 Atherosclerotic heart disease of native coronary artery without angina pectoris; J43.9 Emphysema, unspecified; E78.5 Hyperlipidemia, unspecified; K58.9 Irritable bowel syndrome, unspecified; R11.2 Nausea with vomiting, unspecified; Z87.01 Personal history of pneumonia (recurrent); Z90.49 Acquired absence of other specified parts of digestive tract; Z90.710 Acquired absence of both cervix and uterus; Z98.61 Coronary angioplasty status; Z87.891 Personal history of nicotine dependence; Z79.82 Long term (current) use of aspirin; Z79.899 Other long term (current) drug therapy; Z68.26 Body mass index [BMI] 26.0-26.9, adult; C34.92 Malignant neoplasm of unspecified part of left bronchus or lung; D72.829 Elevated white blood cell count, unspecified; D64.9 Anemia, unspecified; D72.820 Lymphocytosis (symptomatic)
CPT/HCPCS: 36415; 71046; 71275; 80053; 81001; 83605; 83735; 84132; 84436; 84443; 84481; 84484; 85025; 87040; 87086; 93005; 94667; 94761; 96365; 96368; 99285; G0378; G0463; Q9967

== ENCOUNTER 2023-06-27 07:28 | Outpatient (RCR) | payer OTHER, SELFPAY ==
[2023-06-06 11:00] VITALS: BP 120/94; PULSE 108; RESP 22; TEMP 36; O2SAT 97
[2023-06-06 11:28] LABS: Hematocrit 40.5 % (36.0-48.0); Hemoglobin 13.6 g/dL (12.0-16.0); Mean Corpuscular HGB Conc 33.6 g/dL (29.9-35.2); Mean Corpuscular Hemoglobin 32.4 pg (26.7-34.0); Mean Corpuscular Volume 96.4 fL (81.0-99.0); Mean Platelet Volume 9.9 fL (9.5-13.5); Platelet Count 367 10^3/uL (150-450); Red Cell Distribution Width 22.9 % (11.0-15.0); White Blood Count 20.3 10^3/uL (4.0-11.0)
[2023-06-06 11:40] LABS: Alanine Aminotransferase 115 U/L (14-59); Albumin Globulin Ratio 0.7; Albumin Level 3.1 g/dL (3.4-5.0); Alkaline Phosphatase 182 U/L (46-116); Anion Gap 15.4; Aspartate Amino Transferase 39 U/L (15-37); BUN Creatinine Ratio 31.6; Bilirubin Total 0.5 mg/dL (0.2-1.0); Calcium 9.4 mg/dL (8.5-10.1); Carbon Dioxide 26.2 mmol/L (21.0-32.0); Chloride 102 mmol/L (98-107); Estimated GFR (African America >60 (>=60); Estimated GFR (Non-African Ame >60 (>=60); Globulin 4.3 g/dL; Glucose 97 mg/dL (74-106); Potassium 3.6 mmol/L (3.5-5.1); Sodium 140 mmol/L (136-145); Total Protein 7.4 g/dL (6.4-8.2)
[2023-06-06 12:02] LABS: Band Neutrophils Absolute 0.4 10^3/uL (0.0-0.3); Lymphocytes Absolute Manual 1.01 10^3/uL (1.20-3.80); Segmented Neut Absolute Manual 18.27 10^3/uL (1.4-6.5)
[2023-06-06 12:04] LABS: Anisocytosis 2+
[2023-06-06] MEDS: HEPARIN SODIUM (PORCINE) PF LOCK FLUSH 500 UNIT/5 ML SYRINGE IV (12:30)
[2023-06-06 12:46] LABS: Magnesium 1.9 mg/dL (1.8-2.4)
[2023-06-27 09:28] LABS: Erythrocyte Sedimentation Rate 108 mm/hr (<=30)
[2023-06-27 09:38] LABS: C Reactive Protein 1.5 mg/dL (<=1.0)
[2023-06-27 10:05] LABS: Percent Iron Saturation 25.7 %
[2023-06-27 10:07] LABS: Anion Gap 16.7; BUN Creatinine Ratio 19.8; Carbon Dioxide 22.5 mmol/L (21.0-32.0); Chloride 103 mmol/L (98-107); Estimated GFR (African America >60 (>=60); Estimated GFR (Non-African Ame >60 (>=60); Glucose 126 mg/dL (74-106); Potassium 4.2 mmol/L (3.5-5.1); Sodium 138 mmol/L (136-145)
[2023-06-27 10:08] LABS: Alanine Aminotransferase 32 U/L (14-59); Albumin Globulin Ratio 0.8; Albumin Level 3.4 g/dL (3.4-5.0); Alkaline Phosphatase 161 U/L (46-116); Aspartate Amino Transferase 21 U/L (15-37); Basophils Percent Auto 0.5 % (0.2-2.0); Bilirubin Total 0.4 mg/dL (0.2-1.0); Calcium 9.1 mg/dL (8.5-10.1); Eosinophils Absolute Auto 0.1 10^3/uL (0.0-0.7); Eosinophils Percent Auto 1.3 % (0.9-7.0); Globulin 4.2 g/dL; Hematocrit 36.8 % (36.0-48.0); Hemoglobin 11.8 g/dL (12.0-16.0); Immature Granulocytes Abs Auto 0.09 10^3/uL (0.00-0.03); Immature Granulocytes Pct Auto 1.2 % (0.0-0.5); Lymphocytes Absolute Auto 1.4 10^3/uL (1.2-3.8); Lymphocytes Percent Auto 18.4 % (20.5-60.0); Mean Corpuscular HGB Conc 32.1 g/dL (29.9-35.2); Mean Corpuscular Hemoglobin 32.5 pg (26.7-34.0); Mean Corpuscular Volume 101.4 fL (81.0-99.0); Mean Platelet Volume 10.7 fL (9.5-13.5); Monocytes Absolute Auto 1.4 10^3/uL (0.3-0.8); Monocytes Percent Auto 18.2 % (1.7-12.0); Neutrophils Absolute Auto 4.6 10^3/uL (1.4-6.5); Neutrophils Percent Auto 60.4 % (43.0-75.0); Platelet Count 335 10^3/uL (150-450); Red Blood Count 3.63 10^6/uL (4.20-5.40); Red Cell Distribution Width 21.9 % (11.0-15.0); Total Protein 7.6 g/dL (6.4-8.2); White Blood Count 7.6 10^3/uL (4.0-11.0)
--- NOTE | 2023-06-27 10:30 | PC.NURSE ---
0905: Pt. to [facility] for office visit with Dr. Rodriguez. Using sterile technique, right ant. chest port accessed per this RN, using #19 gauge Meneses needle for blood draw. Flushes easily and able to aspirate blood easily. Blood obtained for labs. Pt. tolerates with min. c/o. 1010: Port flushed with saline and Heparin flush. Port de-accessed per BURTON Cantu. Trace bleeding to site. Covered with sterile 2x2 dressing.
[2023-06-27] MEDS: HEPARIN SODIUM (PORCINE) PF LOCK FLUSH 500 UNIT/5 ML SYRINGE IV (10:45)
== END 2023-06-27 23:59 | disposition home or self-care (01) ==
LOC: INF 07:28
PROVIDERS: PCP Family Medicine; Visit Provider Internal Medicine Hematology & Oncology
DX: C34.92 Malignant neoplasm of unspecified part of left bronchus or lung (principal); D72.829 Elevated white blood cell count, unspecified; D64.9 Anemia, unspecified; R11.2 Nausea with vomiting, unspecified; D72.820 Lymphocytosis (symptomatic)
CPT/HCPCS: 36415; 36591; 80053; 82607; 82728; 82746; 83540; 83550; 83735; 85025; 85027; 85652; 86140; G0463

== ENCOUNTER 2023-07-07 14:00 | Outpatient (OUT) | payer OTHER, SELFPAY ==
--- NOTE | 2023-07-07 14:03 | PE_ITS ---
[address] [address] Patient Name: JEANMARIE ECHEVARRIA MRN: [id number] date: 1965 Sex: F Assigned Patient Location: PETCT Current Patient Location: Accession/Order Number: [id number] Exam Date: 07/07/2023 15:02 Report Date: 07/10/2023 08:12 At the request of: BROCK RODNEY Procedure: PET skull to mid thigh EXAMINATION: PET skull to mid thigh HISTORY: Malignant Neoplasm Of Lung C34.92, Elevated White Blood Cell COMPARISON: CTA chest 06/20/2023, 05/29/2023 TECHNIQUE: After obtaining the patient's consent, F-18 FDG was administered intravenously. PET/CT imaging was performed from skull to thigh with multi-planar imaging without oral or intravenous contrast material, using a dedicated integrated PET/CT scanner. FINDINGS: HEAD/NECK: Normal. No pathologic FDG activity. LUNGS: Consolidation of basilar segments of left lower lobe and posterior aspect of lingula; patent bronchi into these regions.. No pathologic FDG activity. A few tiny opacities/infiltrates and/or scarring scattered within the lungs. No suspicious nodules on CT imaging. MEDIASTINUM/SHANIA: Normal. No pathologic FDG activity. CHEST WALL/AXILLA: Normal. No pathologic FDG activity. ABDOMEN: No pathologic FDG activity. PELVIS: No pathologic FDG activity. BONES: No pathologic FDG activity. No suspicious lesions on CT imaging. OTHER: Negative. PET/PET skull to mid thigh IMPRESSION: 1. No abnormal radiotracer uptake to suggest malignancy. 2. Persistent consolidation within left lung base of uncertain etiology; persistent patent bronchi. Electronically authenticated by: MARIANN MARQUES Date: 07/10/2023 08:12
== END 2023-07-07 14:01 | disposition home or self-care (01) ==
LOC: PETCT 14:00
PROVIDERS: PCP Internal Medicine; Visit Provider Internal Medicine Hematology & Oncology
DX: Z51.11 Encounter for antineoplastic chemotherapy (principal); C34.92 Malignant neoplasm of unspecified part of left bronchus or lung; D72.829 Elevated white blood cell count, unspecified; D64.9 Anemia, unspecified; R11.2 Nausea with vomiting, unspecified; Z51.12 Encounter for antineoplastic immunotherapy; D72.820 Lymphocytosis (symptomatic)
CPT/HCPCS: 78815; A9552

== ENCOUNTER 2023-07-11 09:59 | Outpatient (REF) | payer OTHER, SELFPAY ==
[2023-07-11 10:20] LABS: Anion Gap 12.2; BUN Creatinine Ratio 16.5; Calcium 9.1 mg/dL (8.5-10.1); Carbon Dioxide 26.8 mmol/L (21.0-32.0); Chloride 104 mmol/L (98-107); Estimated GFR (African America >60 (>=60); Estimated GFR (Non-African Ame >60 (>=60); Glucose 103 mg/dL (74-106); Sodium 139 mmol/L (136-145)
== END 2023-07-11 10:00 | disposition home or self-care (01) ==
LOC: LAB 09:59
PROVIDERS: PCP Internal Medicine; Visit Provider Nurse Practitioner
DX: I47.10 Supraventricular tachycardia, unspecified (principal); I42.2 Other hypertrophic cardiomyopathy
CPT/HCPCS: 36415; 80048

== ENCOUNTER 2023-07-21 12:51 | Outpatient (OUT) | payer OTHER, SELFPAY ==
--- NOTE | 2023-07-21 13:54 | RT_ITS ---
[facility] Test Date: 2023-07-21 Pat Name: JEANMARIE ECHEVARRIA Department: Room: - Gender: Female Child'S Nurse: Bernice Marcelino RRT : 1965 Requested By: Radames Nair Order Number: [id number] Reading MD: Radames Nair Interpretive Statements Pulmonary function testing was completed according to ATS criteria. Findings were considered accurate and reproducible, with exception of DLCO which did not meet ATS standards. Both pre- and post-bronchodilator values utilized for spirometry. Due to software limitations, no prior studies (if performed previously) are currently available for comparison. Spirometry (based on pre-bronchodilator values): -FEV1/FVC: Low normal @ 74% -FEV1: Low normal @ 80% -FVC: Low normal @ 85% -There is no significant bronchodilator response. Lung volumes by plethysmography: -RV: Normal @ 104% -TLC: Normal @ 101% Diffusion capacity: -DLCO: Normal @ 111% when corrected for Hb 11.8g/dL Flow-volume loop: -Mild-moderate obstructive pattern Impressions: -Spirometry trends towards a mild-moderate obstruction pattern. Normal lung volumes and diffusion capacity. Overall study suggests underlying obstructive lung disease. Clinical correlation required. Electronically Signed On 07-24-2023 13:56:15 EST by Radames Nair
[2023-07-21] MEDS: ALBUTEROL SULFATE 2.5 MG/3 ML VIAL NEB IH (13:57)
== END 2023-07-21 12:52 | disposition home or self-care (01) ==
LOC: CARD 12:51
PROVIDERS: PCP Internal Medicine; Visit Provider Internal Medicine
DX: J44.9 Chronic obstructive pulmonary disease, unspecified (principal)
CPT/HCPCS: 94060; 94726; 94729

== ENCOUNTER 2023-07-25 07:32 | Outpatient (RCR) | payer OTHER, SELFPAY ==
[2023-07-12 15:09] LABS: Immunoglobulin A, Qn, Serum 150 mg/dL (87-352); Immunoglobulin G, Qn, Serum 885 mg/dL (586-1602); Immunoglobulin M, Qn, Serum 52 mg/dL (26-217)
[2023-07-13 14:09] LABS: Free Kappa Lt Chains,S 23.5 mg/L (3.3-19.4); Free Lambda Lt Chains,S 12.6 mg/L (5.7-26.3); Kappa/Lambda Ratio,S 1.87 (0.26-1.65)
== END 2023-07-27 23:59 | disposition home or self-care (01) ==
LOC: INF 07:32
PROVIDERS: PCP Internal Medicine; Visit Provider Internal Medicine Hematology & Oncology
DX: I47.10 Supraventricular tachycardia, unspecified (principal); I42.2 Other hypertrophic cardiomyopathy; C34.92 Malignant neoplasm of unspecified part of left bronchus or lung; D72.829 Elevated white blood cell count, unspecified; D64.9 Anemia, unspecified; R11.2 Nausea with vomiting, unspecified; D72.820 Lymphocytosis (symptomatic)
CPT/HCPCS: 36415; 36591; 80048; 82784; 83521; 86334; G0463

== ENCOUNTER 2023-08-10 11:25 | Outpatient (OUT) | payer OTHER, SELFPAY ==
--- NOTE | 2023-08-10 11:57 | XR_ITS ---
[address] [address] Patient Name: JEANMARIE ECHEVARRIA MRN: [id number] date: 1965 Sex: F Assigned Patient Location: [facility] Current Patient Location: Accession/Order Number: [id number] Exam Date: 08/10/2023 11:45 Report Date: 08/11/2023 09:02 At the request of: SHAIKH ABBY Procedure: XR hand RT 2V PROCEDURE: XR hand RT 2V COMPARISON: None. HISTORY: Pain Of Right Thumb M79.644 FINDINGS: BONES:No fracture, acute abnormality, or significant arthropathy. SOFT TISSUES:Negative. No visible soft tissue swelling. EFFUSION:None visible. OTHER: Negative. XR/XR hand RT 2V IMPRESSION: No acute radiographic abnormality Electronically authenticated by: ABELARDO CHARLES Date: 08/11/2023 09:02
== END 2023-08-10 11:26 | disposition home or self-care (01) ==
LOC: RAD 11:26
PROVIDERS: PCP Internal Medicine; Visit Provider Internal Medicine
DX: M79.644 Pain in right finger(s) (principal)
CPT/HCPCS: 73120

== ENCOUNTER 2023-08-10 11:29 | Outpatient (OUT) | payer OTHER, SELFPAY ==
--- NOTE | 2023-08-10 11:52 | XR_ITS ---
The [address] [address] Patient Name: JEANMARIE ECHEVARRIA MRN: [id number] date: 1965 Sex: F Assigned Patient Location: [facility] Current Patient Location: RAD Accession/Order Number: [id number] Exam Date: 08/10/2023 11:45 Report Date: 08/10/2023 12:46 At the request of: BROCK RODNEY Procedure: XR chest 2V EXAM: XR chest 2V HISTORY: Stage 3 Lung Cancer, History Left Lower Lung Collapse follow-up study. COMPARISON: 06/20/2023 TECHNIQUE: Upright PA and lateral chest x-ray FINDINGS: There has been some interval improvement of the aeration at the left lung base. A small amount of pleural and parenchymal scarring persists with elevation of the hemidiaphragm. A small effusion may be present on the left. Left upper and the right lung are clear and there is no evidence of a pneumothorax. The heart is not enlarged and the vasculature is not distended. A right-sided indwelling catheter remains in place with the tip in the superior vena cava. The osseous structures are grossly intact. XR/XR chest 2V IMPRESSION: Mild improved aeration at the left lung base with persistent atelectasis or scarring. Elevation of the hemidiaphragm is noted, possibly within effusion. No new infiltrate is identified. There is no evidence of overt cardiac decompensation. Electronically authenticated by: DALLIN SHAW Date: 08/10/2023 12:46
== END 2023-08-10 11:30 | disposition home or self-care (01) ==
PROVIDERS: PCP Internal Medicine; Visit Provider Internal Medicine Hematology & Oncology
DX: M79.644 Pain in right finger(s) (principal); C34.92 Malignant neoplasm of unspecified part of left bronchus or lung
CPT/HCPCS: 71046; 73120

== ENCOUNTER 2023-08-15 07:32 | Outpatient (RCR) | payer OTHER, SELFPAY ==
[2023-08-01 08:14] LABS: Basophils Absolute Auto 0.1 10^3/uL (0.0-0.1); Basophils Percent Auto 0.8 % (0.2-2.0); Eosinophils Absolute Auto 0.2 10^3/uL (0.0-0.7); Eosinophils Percent Auto 2.1 % (0.9-7.0); Hematocrit 37.8 % (36.0-48.0); Hemoglobin 11.9 g/dL (12.0-16.0); Immature Granulocytes Abs Auto 0.01 10^3/uL (0.00-0.03); Immature Granulocytes Pct Auto 0.1 % (0.0-0.5); Lymphocytes Absolute Auto 1.8 10^3/uL (1.2-3.8); Lymphocytes Percent Auto 20.7 % (20.5-60.0); Mean Corpuscular HGB Conc 31.5 g/dL (29.9-35.2); Mean Corpuscular Hemoglobin 32.7 pg (26.7-34.0); Mean Corpuscular Volume 103.8 fL (81.0-99.0); Mean Platelet Volume 9.6 fL (9.5-13.5); Neutrophils Absolute Auto 5.6 10^3/uL (1.4-6.5); Neutrophils Percent Auto 64.3 % (43.0-75.0); Platelet Count 339 10^3/uL (150-450); Red Blood Count 3.64 10^6/uL (4.20-5.40); Red Cell Distribution Width 14.8 % (11.0-15.0); White Blood Count 8.6 10^3/uL (4.0-11.0)
[2023-08-01 08:15] VITALS: BP 103/71; PULSE 70; RESP 18; TEMP 36.6; O2SAT 97
--- NOTE | 2023-08-01 08:17 | PC.NURSE ---
Rt chest port accessed using sterile technique, Good blood return noted, flushed with NS, labs drawn, sent to lab. op-site applied over site. tolerated well.
[2023-08-01 08:33] LABS: Alanine Aminotransferase 32 U/L (14-59); Albumin Globulin Ratio 0.9; Albumin Level 3.4 g/dL (3.4-5.0); Alkaline Phosphatase 177 U/L (46-116); Anion Gap 14.9; Aspartate Amino Transferase 27 U/L (15-37); BUN Creatinine Ratio 23.4; Bilirubin Total 0.3 mg/dL (0.2-1.0); Calcium 8.9 mg/dL (8.5-10.1); Carbon Dioxide 24.8 mmol/L (21.0-32.0); Chloride 107 mmol/L (98-107); Estimated GFR (African America >60 (>=60); Estimated GFR (Non-African Ame >60 (>=60); Globulin 3.9 g/dL; Glucose 143 mg/dL (74-106); Magnesium 1.7 mg/dL (1.8-2.4); Potassium 3.7 mmol/L (3.5-5.1); Sodium 143 mmol/L (136-145); Total Protein 7.3 g/dL (6.4-8.2)
[2023-08-01] MEDS: 0.9 % SODIUM CHLORIDE 250 ML 20 ML IV (10:00)
--- NOTE | 2023-08-01 10:18 | PC.NURSE ---
1000 infusion initiated, instucted on notifying nurse if any untoward symptoms develop. verbalize understanding
[2023-08-01] MEDS: HEPARIN SODIUM (PORCINE) PF LOCK FLUSH 500 UNIT/5 ML SYRINGE IV (11:05)
[2023-08-15 08:45] VITALS: BP 131/70; PULSE 80; RESP 18; TEMP 36.9; O2SAT 93
--- NOTE | 2023-08-15 09:15 | PC.NURSE ---
0850 rt chest port accessed under sterile technique per Cori RN. utilizing a 19 ga ceja needle, excellent blood return noted. labs drawn, site covered with tegaderm, patient tolerated well.
[2023-08-15 09:27] LABS: Basophils Absolute Auto 0.1 10^3/uL (0.0-0.1); Basophils Percent Auto 0.7 % (0.2-2.0); Eosinophils Absolute Auto 0.1 10^3/uL (0.0-0.7); Eosinophils Percent Auto 1.2 % (0.9-7.0); Hematocrit 38.3 % (36.0-48.0); Hemoglobin 12.2 g/dL (12.0-16.0); Immature Granulocytes Abs Auto 0.02 10^3/uL (0.00-0.03); Immature Granulocytes Pct Auto 0.2 % (0.0-0.5); Lymphocytes Percent Auto 23.8 % (20.5-60.0); Mean Corpuscular HGB Conc 31.9 g/dL (29.9-35.2); Mean Corpuscular Hemoglobin 32.1 pg (26.7-34.0); Mean Corpuscular Volume 100.8 fL (81.0-99.0); Mean Platelet Volume 9.7 fL (9.5-13.5); Monocytes Absolute Auto 1.2 10^3/uL (0.3-0.8); Monocytes Percent Auto 13.8 % (1.7-12.0); Neutrophils Percent Auto 60.3 % (43.0-75.0); Platelet Count 351 10^3/uL (150-450); Red Cell Distribution Width 13.9 % (11.0-15.0); White Blood Count 8.4 10^3/uL (4.0-11.0)
--- NOTE | 2023-08-15 09:32 | PC.NURSE ---
0915 to chair 3, oxygen connnected to hospital oxygen supply. Offered blanket and pillow patient declines, given a coke to drink. Awaiting labs.
[2023-08-15 09:34] LABS: Alanine Aminotransferase 38 U/L (14-59); Albumin Globulin Ratio 0.9; Albumin Level 3.4 g/dL (3.4-5.0); Alkaline Phosphatase 193 U/L (46-116); Anion Gap 15.2; Aspartate Amino Transferase 31 U/L (15-37); BUN Creatinine Ratio 13.1; Bilirubin Total 0.4 mg/dL (0.2-1.0); Calcium 9.2 mg/dL (8.5-10.1); Carbon Dioxide 25.2 mmol/L (21.0-32.0); Chloride 105 mmol/L (98-107); Estimated GFR (African America >60 (>=60); Estimated GFR (Non-African Ame >60 (>=60); Globulin 3.9 g/dL; Glucose 136 mg/dL (74-106); Potassium 3.4 mmol/L (3.5-5.1); Sodium 142 mmol/L (136-145); Total Protein 7.3 g/dL (6.4-8.2)
[2023-08-15 09:35] LABS: Erythrocyte Sedimentation Rate 98 mm/hr (<=30)
[2023-08-15 09:39] LABS: Percent Iron Saturation 16.1 %
[2023-08-15 09:40] LABS: C Reactive Protein 1.11 mg/dL (<=0.50)
[2023-08-15] MEDS: 0.9 % SODIUM CHLORIDE 250 ML IV (10:15)
--- NOTE | 2023-08-15 10:35 | PC.NURSE ---
Tolerating infusion without difficulty, eating a breakfast sandwich
--- NOTE | 2023-08-15 10:39 | PC.NURSE ---
Lungs clear to auscultation, heart tones strong and regular.
[2023-08-15] MEDS: HEPARIN SODIUM (PORCINE) PF LOCK FLUSH 500 UNIT/5 ML SYRINGE IV (11:35)
[2023-08-15 11:56] VITALS: BP 103/71; PULSE 81; RESP 18; TEMP 36.3; O2SAT 100
== END 2023-08-15 12:00 | disposition home or self-care (01) ==
LOC: INF 07:32
PROVIDERS: PCP Internal Medicine; Visit Provider Internal Medicine Hematology & Oncology
DX: Z51.11 Encounter for antineoplastic chemotherapy (principal); C34.92 Malignant neoplasm of unspecified part of left bronchus or lung; D64.9 Anemia, unspecified; R11.2 Nausea with vomiting, unspecified; F17.210 Nicotine dependence, cigarettes, uncomplicated; Z99.81 Dependence on supplemental oxygen; Z90.710 Acquired absence of both cervix and uterus; I25.2 Old myocardial infarction; J44.9 Chronic obstructive pulmonary disease, unspecified; I10 Essential (primary) hypertension; K21.9 Gastro-esophageal reflux disease without esophagitis; Z95.5 Presence of coronary angioplasty implant and graft
CPT/HCPCS: 36591; 80053; 82607; 82728; 82746; 83540; 83550; 83735; 85025; 85652; 86140; 96413; G0463; J9173

== ENCOUNTER 2023-09-19 07:26 | Outpatient (RCR) | payer OTHER, SELFPAY ==
[2023-08-29 10:15] VITALS: BP 114/67; PULSE 78; RESP 18; TEMP 37.1; O2SAT 92
[2023-08-29 10:16] LABS: Basophils Absolute Auto 0.1 10^3/uL (0.0-0.1); Basophils Percent Auto 0.6 % (0.2-2.0); Eosinophils Absolute Auto 0.1 10^3/uL (0.0-0.7); Eosinophils Percent Auto 0.9 % (0.9-7.0); Hematocrit 37.9 % (36.0-48.0); Hemoglobin 12.1 g/dL (12.0-16.0); Immature Granulocytes Abs Auto 0.04 10^3/uL (0.00-0.03); Immature Granulocytes Pct Auto 0.4 % (0.0-0.5); Lymphocytes Absolute Auto 2.1 10^3/uL (1.2-3.8); Lymphocytes Percent Auto 20.4 % (20.5-60.0); Mean Corpuscular HGB Conc 31.9 g/dL (29.9-35.2); Mean Corpuscular Hemoglobin 31.2 pg (26.7-34.0); Mean Corpuscular Volume 97.7 fL (81.0-99.0); Mean Platelet Volume 9.4 fL (9.5-13.5); Monocytes Absolute Auto 1.4 10^3/uL (0.3-0.8); Neutrophils Absolute Auto 6.5 10^3/uL (1.4-6.5); Neutrophils Percent Auto 63.7 % (43.0-75.0); Platelet Count 359 10^3/uL (150-450); Red Blood Count 3.88 10^6/uL (4.20-5.40); Red Cell Distribution Width 13.4 % (11.0-15.0); White Blood Count 10.2 10^3/uL (4.0-11.0)
--- NOTE | 2023-08-29 10:18 | PC.NURSE ---
0940 Arrives ambulatory with oxygen at 2 lpm per nasal cannula. Rt chest port a cath accessed utilizing 19 ga ceja needle under sterile technique. excellent blood return, labs drawn, flushed with NS, covered with tegaderm, patient tolerated well. [address] Rodriguez.
[2023-08-29 10:40] LABS: Alanine Aminotransferase 24 U/L (14-59); Albumin Globulin Ratio 0.8; Albumin Level 3.2 g/dL (3.4-5.0); Alkaline Phosphatase 184 U/L (46-116); Anion Gap 14.8; Aspartate Amino Transferase 18 U/L (15-37); BUN Creatinine Ratio 23.3; Bilirubin Total 0.3 mg/dL (0.2-1.0); Calcium 9.6 mg/dL (8.5-10.1); Carbon Dioxide 25.5 mmol/L (21.0-32.0); Chloride 103 mmol/L (98-107); Estimated GFR (African America >60 (>=60); Estimated GFR (Non-African Ame >60 (>=60); Globulin 4.2 g/dL; Glucose 133 mg/dL (74-106); Magnesium 1.5 mg/dL (1.8-2.4); Potassium 3.3 mmol/L (3.5-5.1); Sodium 140 mmol/L (136-145); Total Protein 7.4 g/dL (6.4-8.2)
--- NOTE | 2023-08-29 10:41 | PC.NURSE ---
1035 moved to chair [address] Rodriguez, oxygen connected to wall outlet at 2 lpm nc. Given warm blanket and drink, breakfast ordered.
[2023-08-29] MEDS: 0.9 % SODIUM CHLORIDE 250 ML 10 ML IV (10:55)
--- NOTE | 2023-08-29 11:34 | PC.NURSE ---
1055 Infinzi initiated as ordered.
--- NOTE | 2023-08-29 11:59 | PC.NURSE ---
1200 Tolerating infusion without difficulty. reclining in chair
[2023-08-29] MEDS: HEPARIN SODIUM (PORCINE) PF LOCK FLUSH 500 UNIT/5 ML SYRINGE IV (12:20)
--- NOTE | 2023-08-29 13:06 | PC.NURSE ---
1220 infusion completed. port flushed with ns and hep lock, de accessed, patient tolerated well
[2023-09-19 09:22] VITALS: BP 118/74; PULSE 89; RESP 18; TEMP 36.4; O2SAT 96
--- NOTE | 2023-09-19 09:23 | PC.NURSE ---
rt chest port accessed utilizing 19 ga 1 inch ceja needle, excellent blood return noted, labs drawn, op site applied, flushed with NSS. Tolerated well.
[2023-09-19 09:29] LABS: Basophils Percent Auto 0.5 % (0.2-2.0); Eosinophils Absolute Auto 0.1 10^3/uL (0.0-0.7); Eosinophils Percent Auto 0.8 % (0.9-7.0); Hematocrit 37.5 % (36.0-48.0); Hemoglobin 12.2 g/dL (12.0-16.0); Immature Granulocytes Abs Auto 0.02 10^3/uL (0.00-0.03); Immature Granulocytes Pct Auto 0.3 % (0.0-0.5); Lymphocytes Absolute Auto 1.7 10^3/uL (1.2-3.8); Lymphocytes Percent Auto 22.7 % (20.5-60.0); Mean Corpuscular HGB Conc 32.5 g/dL (29.9-35.2); Mean Corpuscular Hemoglobin 29.9 pg (26.7-34.0); Mean Corpuscular Volume 91.9 fL (81.0-99.0); Mean Platelet Volume 10.1 fL (9.5-13.5); Monocytes Percent Auto 13.4 % (1.7-12.0); Neutrophils Absolute Auto 4.8 10^3/uL (1.4-6.5); Neutrophils Percent Auto 62.3 % (43.0-75.0); Platelet Count 329 10^3/uL (150-450); Red Blood Count 4.08 10^6/uL (4.20-5.40); Red Cell Distribution Width 13.8 % (11.0-15.0); White Blood Count 7.7 10^3/uL (4.0-11.0)
[2023-09-19 09:36] LABS: Alanine Aminotransferase 23 U/L (14-59); Albumin Globulin Ratio 0.7; Albumin Level 3.1 g/dL (3.4-5.0); Alkaline Phosphatase 189 U/L (46-116); Anion Gap 15.3; Aspartate Amino Transferase 19 U/L (15-37); BUN Creatinine Ratio 22.5; Bilirubin Total 0.2 mg/dL (0.2-1.0); Calcium 9.2 mg/dL (8.5-10.1); Carbon Dioxide 24.3 mmol/L (21.0-32.0); Chloride 105 mmol/L (98-107); Estimated GFR (African America >60 (>=60); Estimated GFR (Non-African Ame >60 (>=60); Globulin 4.2 g/dL; Glucose 109 mg/dL (74-106); Magnesium 1.6 mg/dL (1.8-2.4); Potassium 3.6 mmol/L (3.5-5.1); Sodium 141 mmol/L (136-145); Total Protein 7.3 g/dL (6.4-8.2)
[2023-09-19] MEDS: SODIUM CHLORIDE 0.9% IV (10:41)
[2023-09-19] MEDS: DURVALUMAB IV (10:41)
[2023-09-19] MEDS: 0.9 % SODIUM CHLORIDE 250 ML 30 ML IV ×2 (10:43→11:37)
--- NOTE | 2023-09-19 13:09 | PC.NURSE ---
1000 waiting in recliner chair, breakfast ordered. 1041 Iv Infinzi initiated over 1 hour.
--- NOTE | 2023-09-19 13:17 | PC.NURSE ---
1142 IV infusion completed. Flushed with nss and hep lock flush, Port a cath deaccessed, bandaid applied to site, no bleeding noted. 1145 Released ambulatory, tolerated infusion without any issues.
== END 2023-09-27 23:59 | disposition home or self-care (01) ==
LOC: INF 07:26
PROVIDERS: PCP Internal Medicine; Visit Provider Internal Medicine Hematology & Oncology
DX: Z51.11 Encounter for antineoplastic chemotherapy (principal); C34.92 Malignant neoplasm of unspecified part of left bronchus or lung; D72.829 Elevated white blood cell count, unspecified; D64.9 Anemia, unspecified; D72.820 Lymphocytosis (symptomatic); Z99.81 Dependence on supplemental oxygen; J44.9 Chronic obstructive pulmonary disease, unspecified; I10 Essential (primary) hypertension; K21.9 Gastro-esophageal reflux disease without esophagitis; I25.2 Old myocardial infarction; Z90.710 Acquired absence of both cervix and uterus; Z87.891 Personal history of nicotine dependence; D69.59 Other secondary thrombocytopenia; T45.1X5A Adverse effect of antineoplastic and immunosuppressive drugs, initial encounter; Z87.01 Personal history of pneumonia (recurrent)
CPT/HCPCS: 36591; 80053; 83735; 85025; 96413; G0463; J1642; J9173

== ENCOUNTER 2023-10-10 09:25 | Outpatient (OUT) | payer OTHER, SELFPAY ==
--- NOTE | 2023-10-10 | XR_ITS ---
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 There is moderate elevation left hemidiaphragm, stable from previous exam. There is slight left basilar atelectasis or fibrosis, stable from previous exam. There is no evidence of pleural effusion or pneumothorax. Right central catheter is in stable position. XR/XR chest 2V IMPRESSION: Stable chest. No evidence of consolidating infiltrates to suggest pneumonia. Electronically authenticated by: CODY CAMPOS Date: 10/10/2023 10:02
--- OUTSIDE RECORDS SUMMARY | 2023-10-10 09:48 | XMS_ITS | CCD ---
Author Name Unknown Address [id number] [place] [address] Organization [facility] Care Team Providers Care Furniture Inspector Name Role Phone MD Viviane Loco Admit Provider [phone] MD Viviane Loco Attending Provider BURTON Cuellar Other Provider Unavailable DO Teo Gongora Other Provider MD Bolivar Magana Other Provider [phone] MD Brett Price Other Provider MD Tonio Phillip Other Provider MD Aris Mckeon Other Provider KATHI Weiss Other Provider MD Nitza Ventura Other Provider MD Karen Mcdowell Other Provider MD Charanjit Mckinney Other Provider DO Aris Stewart Primary Care Provider Aris Stewart Unavailable Unavailable Unavailable Unavailable Unavailable ALLY SANTORO Attending Unavailable ALLY SANTORO Admitting Unavailable PAT, DR HURST Primary Care Unavailable JERALD, DR MARIANN Napier Consulting Unavailable ALLY SANTORO Consulting Unavailable YESIKA URBINA Consulting Unavailable PAT, DR HURST Admitting Unavailable PAT, DR HURST Consulting Unavailable [place], DR HURST Attending Unavailable [place], DR HURST Primary Care Unavailable Abelardo Flannery Consulting Unavailable HOUSE, DR HURST Attending Unavailable HOUSE, DR HURST Admitting Unavailable HOUSE, DR HURST Primary Care Unavailable BLACKBURN, DR ABELARDO Johnson Consulting Unavailable HOUSE, DR HURST Consulting Unavailable ROLAN, DR BRETT Amin Consulting Unavailabl e ROLAN, DR BRETT Amin Attending Unavailabl e HOUSE, DR HURST Primary Care Unavailable ROLAN, DR BRETT Amin Admitting Unavailabl e ROLAN, DR BRETT Amin Consulting Unavailabl e ROLAN, DR BRETT Amin Attending Unavailabl e ROLAN, DR BRETT Amin Admitting Unavailabl e HOUSE, DR HURST Primary Care Unavailable KATKO, ALLY Cho Consulting Unavailable KATKO, ALLY Cho Attending Unavailable KATKO, ALLY Cho Admitting Unavailable HOUSE, DR HURST Primary Care Unavailable JENNA, LUCIO Consulting Unavailable JENNA, LUCIO Attending Unavailable PAT, DR HURST Primary Care Unavailable JENNA, LUCIO Admitting Unavailable JENNA, LUCIO Consulting Unavailable JENNA, LUCIO Attending Unavailable JENNA, LUCIO Admitting Unavailable PAT, DR HURST Primary Care Unavailable JAMIE NEGRON Consulting Unavailable Pat, DO [place] Primary Care Provider Rolan, DO Teo Aguilar Attending Provider [phone] [facility] Unavailable Rolan, Teo Aguilar Attending Unavailable Rolan, Teo Aguilar Admitting Unavailable [place] Sr., [facility] Provider Gino, Betito A Unavailable [phone] Neetu Gongora, Dr. Brett Aguilar Attending Unava ilable Pat, Dr. Aris Chau [facility] Unava ilable Rolan, Dr. Brett Aguilar Referring Unava ilable Rolan, Dr. Brett Aguilar Attending Unava ilable Pat, Dr. Aris [facility] Unava ilable Rolan, Dr. Brett Aguilar Attending Unava ilable Pat, Dr. Aris Chau [facility] Unava ilable Rolan, Dr. Brett Aguilar Attending Unava ilable Pat, Dr. Aris Chau [facility] Unava ilable Rolan, Dr. Brett Aguilar Referring Unava ilable Rolan, Dr. Brett Aguilar Attending Unava ilable Pat, Dr. Aris Chau [facility] Unava illinus Foss MD, Betito A Unavailable [phone] OMMANJINDER, BETITO Referring Unavailable OMBALLI, MOHJEREMIAS Referring Unavailable OMBALLI, MOHAMED Referring Unavailable OMBALLI, BETITO Attending Unavailable JENNIFER, ARCHANA Referring Unavailable OMBALLI, MOHAMED Attending Unavailable OMBALLI, MOHAMED Referring Unavailable SYDNEE, MARIELLE Referring Unavailable OMBALLI, MOHAMED Attending Unavailable JENNIFER, APOORA Referring Unavailable OMBALLI, MOHAMED Referring Unavailable OMBALLI, MOHAMED Attending Unavailable OMBALLI, MOHAMED Referring Unavailable OMBALLI, MOHAMED Referring Unavailable House DO, [facility] Primary Care Provider ISABEL CAGLE Attending Unavailable HOUSE, [facility] Care Unavailab le House Sr., DO, [facility] Prov ider SHAIKH MORA Attending Unavailable HOUSE SR, [facility] Unavai lable LITTLE, SALEEM Referring Unavailable HOUSE SR, [facility] Unavai lable LITTLE, SALEEM Attending Unavailable HOUSE SR, [facility] Unavai lable LITTLE, SALEEM Referring Unavailable HOUSE SR, [facility] Unavai lable LITTLE, SALEEM Attending Unavailable HOUSE SR, [facility] Unavai lable LITTLE, SALEEM Referring Unavailable HOUSE SR, [facility] Unavai lable LITTLE, SALEEM Attending Unavailable HOUSE SR, [facility] Unavai lable LITTLE, SALEEM Attending Unavailable LITTLE, SALEEM Referring Unavailable HOUSE SR, [facility] Unavai lable LITTLE, SALEEM Referring Unavailable HOUSE SR, [facility] Unavai lable LITTLE, SALEEM Referring Unavailable HOUSE SR, [facility] Unavai lable LITTLE, SALEEM Referring Unavailable JENNIFER, ARCHANA Referring Unavailable HOUSE SR, [facility] Unavai lable LITTLE, SALEEM Attending Unavailable JENNIFER, ARCHANA Referring Unavailable HOUSE SR, [facility] Unavai lable LITTLE, SALEEM Attending Unavailable HOUSE SR, [facility] Unavai lable LITTLE, SALEEM Referring Unavailable HOUSE SR, [facility] Unavai lable LITTLE, SALEEM Attending Unavailable HOUSE SR, [facility] Unavai lable LITTLE, SALEEM Referring Unavailable HOUSE SR, [facility] Unavai lable LITTLE, SALEEM Attending Unavailable HOUSE SR, [facility] Unavai lable LITTLE, SALEEM Referring Unavailable HOUSE SR, [facility] Care Unavai lable LITTLE, SALEEM Referring Unavailable HOUSE SR, [facility] Unavai lable LITTLE, SALEEM Referring Unavailable HOUSE SR, [facility] Unavai lable HOUSE SR, [facility] Care Unavai lable HOUSE SR, [facility] Unavai lable HOUSE SR, [facility] Unavai lable LITTLE, SALEEM Referring Unavailable HOUSE SR, [facility] Unavai lable LITTLE, SALEEM Referring Unavailable HOUSE SR, [facility] Unavai lable LITTLE, SALEEM Referring Unavailable HOUSE SR, [facility] Unavai lable LITTLE, SALEEM Referring Unavailable LITTLE, SALEEM Attending Unavailable HOUSE SR, [facility] Unavai lable LITTLE, SALEEM Referring Unavailable HOUSE SR, [facility] Unavai lable LITTLE, SALEEM Referring Unavailable HOUSE SR, [facility] Unavai lable LITTLE, SALEEM Referring Unavailable HOUSE SR, [facility] Unavai lable LITTLE, SALEEM Referring Unavailable HOUSE SR, [facility] Unavai lable HOUSE SR, [facility] Unavai lable LITTLE, SALEEM Referring Unavailable HOUSE SR, [facility] Unavai lable LITTLE, SALEEM Attending Unavailable HOUSE SR, [facility] Unavai lable LITTLE, SALEEM Attending Unavailable HOUSE SR, [facility] Unavai lable LITTLE, SALEEM Referring Unavailable HOUSE SR, [facility] Unavai lable LITTLE, SALEEM Referring Unavailable HOUSE SR, [facility] Unavai lable LITTLE, SALEEM Referring Unavailable HOUSE SR, [facility] Unavai lable LITTLE, SALEEM Referring Unavailable HOUSE SR, [facility] Unavai lable LITTLE, SALEEM Referring Unavailable HOUSE SR, [facility] Unavai lable LITTLE, SALEEM Referring Unavailable HOUSE SR, [facility] Unavai lable LITTLE, SALEEM Referring Unavailable HOUSE SR, [facility] Unavai lable LITTLE, SALEEM Referring Unavailable HOUSE SR, [facility] Unavai lable LITTLE, SALEEM Attending Unavailable HOUSE SR, [facility] Mona avalos LITTLE, SALEEM Attending Unavailable [place] SR, [facility] Mona debbijorge alberto LITTLE, SALEEM Referring Unavailable [place] SR, [facility] Mona debbijorge alberto LITTLE, SALEEM Referring Unavailable [place] SR, [facility] Mona debbijorge alberto LITTLE, SALEEM Referring Unavailable [place] SR, [facility] Mona debbijorge alberto LITTLE, SALEEM Referring Unavailable Allergies Allergy Classification Reported Allergen(s) Allergy Type Date of Onset Reaction(s) Facility (5 sources) Codeine; 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: [Codeine] Drug Allergy 06-16-2016 [facility] Medications Current Medications Medication Drug Class(es) Dates Sig (Normalized) Sig (Original) aspirin 81 mg chewable tablet (20 sources) Platelet Aggregation Inhibitor, Nonsteroidal Anti-inflammatory Drug Start: 12-16-2021 take 1 tablet by mouth once daily Aspirin (Children's Aspirin) 81 mg Tablet,Chewable Active 81 MG PO Daily December 16, 2021 4:19pm aspirin, enteric coated (ASPIRIN, ENTERIC COATED) 81 mg EC tablet Take 81 mg by mouth. 0 Active Comment on above: Take 81 mg by mouth. 24 hr nicotine 0.875 mg/hr transdermal system (2 sources) Cholinergic Nicotinic Agonist Start: 12-16-2021 Nicotine Active 1 EACH TRANSDERML Daily December 16, 2021 1:24pm omeprazole 40 mg delayed release oral capsule (20 sources) Proton Pump Inhibitor Start: 12-30-2022 take 40 mg by mouth once daily Omeprazole Active 40 MG PO Daily December 30, 2022 12:00am Omeprazole Magne sium 20 mg tablet Take 40 mg by mouth. 0 Active take 1 capsule by [facility] twice daily before mealtime omeprazole (PriLOSEC) [address] capsule Take 1 capsule (20 mg) by mouth 2 times a day before meals. Do not crush or chew. 0 Active Omeprazole Magne sium 20 mg tablet Take 20 mg by mouth. 0 Active Comment on above: Take 20 mg by mouth. Take 40 mg by mouth. Completed/Discontinued Medications Medication Drug Class(es) Dates Sig (Normalized) Sig (Original) acetaminophen 21.7 mg/ml / HYDROcodone bitartrate 0.5 mg/ml oral solution (3 sources) Opioid Agonist Start: 03-17-2023 End: 03-24-2023 take 5 mL by mouth every eight hours as needed for pain HYDROcodone-acetam inophen (HYCET) 7.5-325 mg/15 mL oral liquid Indications: Neoplasm of lung Take 5 mL by mouth every 8 hours as needed for pain for up to 7 days. May alternate with Tylenol/Motrin. 100 mL 0 03/17/2023 03/24/2023 Comment on above: Take 5 mL by mouth e very 8 hours as needed for pain for up to 7 days. May alternate with Tylenol/Motrin. [id number] 200 actuat albuterol 0.09 mg/actuat metered dose inhaler (18 sources) beta2-Adrenergic Agonist Start: 02-21-2023 take 2 puff(s) by mouth every six hours albuterol HFA (PROVENTIL HFA, VENTOLIN HFA) 90 mcg/actuation inhaler inhale 2 puffs by mouth and INTO THE LUNGS every 6 hours if neede... (REFER TO PRESCRIPTION NOTES). 0 02/21/2023 Active Comment on above: inhale 2 puffs by mo [facility] and INTO THE LUNGS every 6 hours if neede... (REFER TO PRESCRIPTION NOTES). albuterol 0.833 mg/ml / ipratropium bromide 0.167 mg/ml inhalation solution (1 source) Anticholinergic, beta2-Adrenergic Agonist Start: 05-25-2023 take 3 mL by inhalation every four hours ipratropium-albute rol (DUONEB) 0.5 mg-3 mg(2.5 mg base)/3 mL nebu 3mL Inhalation Q4H for 30 days 0 05/25/2023 Active Comment on above: 3mL Inhalation Q4H f or 30 days amoxicillin 875 mg / clavulanate 125 mg oral tablet (14 sources) Penicillin-class Antibacterial Start: 03-03-2023 take 1 tablet by mouth once at bedtime amoxicillin-clavul anic acid (AUGMENTIN) 875-125 mg per tablet TAKE ONE TABLET BY MOUTH IN THE MORNING AND AT BEDTIME 0 03/03/2023 Active Start: 02-17-2022 take 1 tablet by matt twice daily Amoxicillin-Pot Clavulanate 875-125 MG Oral Tablet take 1 tablet by mouth twice a day for 10 days Quantity: 20 Refills: 0 Ordered: 18-Feb-2022 DO Start : 17-Feb-2022 Complete Comment on above: TAKE ONE TABLET BY M OUTH IN THE MORNING AND AT BEDTIME atorvastatin 80 mg oral tablet (20 sources) HMG-CoA Reductase Inhibitor Start: 02-24-2023 atorvastatin (LIPITOR) 80 mg tablet Start: 12-16-2021 take 80 mg by mouth once daily in the evening Atorvastatin Active 80 MG PO Every evening December 16, 2021 4:19pm 24 hr buPROPion hydrochloride 150 mg extended release oral tablet (2 sources) Aminoketone Start: 06-19-2023 take 1 tablet by mouth once daily in the morning buPROPion XL (WELLBUTRIN XL) 150 mg 24 hr tablet Take 150 mg by mouth every morning. 0 06/19/2023 Active Comment on above: Take 150 mg by mouth every morning. busPIRone hydrochloride 10 mg oral tablet (2 sources) Start: 04-14-2022 busPIRone HCl - 10 MG Oral Tablet Quantity: 30 Refills: 0 Ordered: 14-Apr-2022 DO Start : 14-Apr-2022 Complete 24 hr dilTIAZem hydrochloride 240 mg extended release oral capsule (2 sources) Calcium Channel Olga Start: 06-21-2023 take 1 capsule by mouth once dilTIAZem CD (CARDIZEM CD, CARTIA XT) 240 mg 24 hr capsule Take 1 capsule by mouth every afternoon. 0 06/21/2023 Active take 1 capsule by mouth once arik ly dilTIAZem CD (Cardizem CD) 120 mg 24 hr capsule Take 1 capsule (120 mg) by mouth once daily. 0 Active Comment on above: Take 1 capsule by mo uth every afternoon. gabapentin 300 mg oral capsule (2 sources) Anti-epileptic Agent Start: 06-27-2023 gabapentin (NEURONTIN) 300 mg capsule take 1 capsule by mouth twice da chris gabapentin (Neurontin) 100 mg capsule Take 1 capsule (100 mg) by mouth 2 times a day. 0 Active hydrocortisone 10 mg/ml / neomycin 3.5 mg/ml / polymyxin b [id number] unt/ml otic suspension (2 sources) Aminoglycoside Antibacterial, Polymyxin-class Antibacterial, Corticosteroid Start: 02-18-2022 [id number] Otic Suspension Quantity: 10 Refills: 0 Ordered: 18-Feb-2022 DO Start : 18-Feb-2022 Complete 24 hr isosorbide mononitrate 30 mg extended release oral tablet (19 sources) Nitrate Vasodilator Start: 02-12-2023 take 1 tablet by mouth once isosorbide mononitrate ER (IMDUR) 30 mg 24 hr tablet Take 1 tablet by mouth every afternoon. 0 02/12/2023 Active take 1 tablet by mouth once chicho y isosorbide mononitrate ER (Imdur) 60 mg 24 hr tablet Take 1 tablet (60 mg) by mouth once daily. Do not crush or chew. 0 Active Comment on above: Take 1 tablet by matt th every afternoon. iv contrast (will be provided with radiology test) (17 sources) Star t: 02-25 inject 1 dose intravenously once iv contrast (will be provided with radiology test) Indications: Malignant neoplasm of left lung, unspecified part of lung (HCC) MRI Brain Inject, intravenously, once for 1 dose.No IV access, insert saline lock prior to beginning of sedation, infusion, injection of imaging exam.Discontinue saline lock post exam. If Pt. has a central line or IVAD, may access for administration according to line specific nursing protocol.Once exam is complete flush line and de-access according to line specific nursing protocol in the MR contrast administration guidelines link 1 Each 0 03/10/2023 Active Comment on above: MRI Brain Inject, in travenously, once for 1 dose.No IV access, insert saline lock prior to beginning of sedation, infusion, injection of imaging exam.Discontinue saline lock post exam. If Pt. has a central line or IVAD, may access for administration according to line specific nursing protocol.Once exam is complete flush line and de-access according to line specific nursing protocol in the MR contrast administration guidelines link levoFLOXacin 500 mg oral tablet (2 sources) Quinolone Antimicrobial Star t: 07-28 22 take 1 tablet by mouth once daily levoFLOXacin 500 MG Oral Tablet take 1 tablet by mouth once daily Quantity: 10 Refills: 0 Ordered: 11-Aug-2022 DO Start : 11-Aug-2022 Complete methylPREDNISolone 4 MG Oral Tablet Therapy Pack (2 sources) Star t: 07-28 22 methylPREDNISolone 4 MG Oral Tablet Therapy Pack use as directed FOLLOW DIRECTIONS ON BACK OF FOIL PACK Quantity: 21 Refills: 0 Ordered: 11-Aug-2022 DO Start : 11-Aug-2022 Complete metoprolol tartrate 25 mg oral tablet (20 sources) beta-Adrenergic Olga Star t: 11-14 End: 06-28 take 4 tablets by mouth twice daily metoprolol tartrate (Lopressor) 25 mg tablet Take 4 tablets (100 mg) by mouth 2 times a day. 0 12/28/2022 07/10/2023 Discontinued (Other) Start: 12-16-2021 take 25 mg by mouth twice chicho y Metoprolol Tartrate Active 25 MG PO Twice daily 60 December 16, 2021 4:19pm metoprolol succi lurdes ER (TOPROL XL) 100 mg Take 50 mg by mouth. 0 Active take 1 tablet by matt th once daily metoprolol succinate XL (Toprol-XL) 100 mg 24 hr tablet Take 1 tablet (100 mg) by mouth once daily. Do not crush or chew. 0 Active take 1 tablet by matt th every twenty-four hours metoprolol succinate ER (TOPROL XL) 50 mg 24 hr tablet Take 50 mg by mouth. 0 Active Comment on above: Take 50 mg by mouth. nitroglycerin 0.4 mg sublingual tablet (20 sources) Nitrate Vasodilator Start: 02-24-2023 nitroglycerin sublingual (NITROQUICK) 0.[address] 1 tablet under the tongue if needed every 5 minutes for shama... (REFER TO PRESCRIPTION NOTES). 0 02/24/2023 Active Start: 12-30-2022 Nitroglycerin Active MG December 30, 2022 12:00am Start: 12-30-2022 apply 0.2 mg transde rmal route every hour, then apply 1 dose transdermal route every twenty-four hours Nitroglycerin (Nitro-Dur) 0.2 mg/hr patch 24 hour Active 1 PATCH TRANSDERML Daily December 30, 2022 12:00am allow nitrate-free interval of approx. 10-12 hrs per 24-hour period Start: 12-22-2021 nitroglycerin (Nitrostat) 0.[address] 1 tablet (0.4 mg) under the tongue every 5 minutes if needed for chest pain. 0 12/22/2021 Active Comment on above: place 1 tablet under the tongue if needed every 5 minutes for shama... (REFER TO PRESCRIPTION NOTES). predniSONE 20 mg oral tablet (18 sources) Start: 2022 take 2 tablets by mouth once daily in the morning predniSONE (DELTASONE) 20 mg tablet Take 40 mg by mouth every morning. 0 03/03/2023 Active Comment on above: Take 40 mg by mouth every morning. prochlorperazine 10 mg oral tablet (11 sources) Phenothiazine Start: 2022 take 1 tablet by mouth every eight hours as needed prochlorperazine (COMPAZINE) 10 mg tablet Take 10 mg by mouth every 8 hours as needed. 0 03/10/2023 Active Comment on above: Take 10 mg by mouth every 8 hours as needed. sodium chloride 9 mg/ml inhalation solution (1 source) Start: 2022 take 3 mL by inhalation three times daily sodium chloride 0.9 % nebulizer solution 3mL Inhalation TID for 30 days 0 05/25/2023 Active Comment on above: 3mL Inhalation TID f or 30 days ticagrelor 90 mg oral tablet (20 sources) Start: 2022 take 1 tablet by mouth every twelve hours BRILINTA 90 mg tablet Take 1 tablet by mouth every 12 hours 6am/6pm. 0 12/29/2022 Active Start: 12-16-2021 take 1 tablet by matt th twice daily Ticagrelor (Brilinta) 90 mg Tablet Active 90 MG PO Twice daily 60 30 December 16, 2021 4:19pm Comment on above: Take 1 tablet by matt th every 12 hours 6am/6pm. traMADol hydrochloride 50 mg oral tablet (18 sources) Opioid Agonist take 1 tablet by mouth every six hours as needed traMADol (ULTRAM) 50 mg tablet Take 50 mg by mouth every 6 hours as needed. 0 Active Comment on above: Take 50 mg by mouth every 6 hours as needed. Problems Active Problems Problem Classification Problem Date Documented Da te Episodic/Chronic Acute myocardial infarction (12 sources) Myocardial infarction; 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: [Non-ST elevation (NSTEMI) myocardial infarction] Onset: 2 12-14-2021 Chronic Cancer of bronchus; lung (8 sources) Malignant tumor of lung; 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: [Malignant neoplasm of unspecified part of left bronchus or lung] Onset: 3 03-10-2023 Chronic Cardiac dysrhythmias (2 sources) Supraventricular tachycardia; 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: [SVT (supraventricular tachycardia)] Onset: 3 07-10-2023 Chronic Chronic obstructive pulmonary disease and bronchiectasis (7 sources) Chronic obstructive lung disease; 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: [Chronic airway obstruction, not elsewhere classified] Onset: 3 07-07-2023 Chronic Coronary atherosclerosis and other heart disease (20 sources) Coronary arteriosclerosis; 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: [Coronary atherosclerosis of unspecified type of vessel, [place] or graft] Onset: 2 12-30-2022 Chronic Coronary atherosclerosis and other heart disease (6 sources) Patient post percutaneous transluminal coronary angioplasty; 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: [Percutaneous transluminal coronary angioplasty status] Onset: 2 07-07-2023 Episodic Disorders of lipid metabolism (4 sources) Mixed hyperlipidemia; 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: [Mixed hyperlipidemia] Onset: 3 07-10-2023 Chronic Essential hypertension (7 sources) Essential (primary) hypertension; 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: [Essential hypertension] Onset: 2 12-30-2022 Chronic Other aftercare (1 source) consumer advocate (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) 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 of 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; 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: [DIRECTOR 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 CURRENT USE OF ASPIRIN] Onset: 2 Episodic Other and ill-defined heart disease (4 sources) Left ventricular hypertrophy; 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: [Cardiomegaly] Onset: 3 07-07-2023 Chronic Other circulatory disease (3 sources) Patient post angioplasty; 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: [Other postprocedural status] Episodic Other connective tissue disease (1 source) Muscle finding; 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: [Myalgia, unspecified site] 04-18-2023 Episodic Other ear and sense organ disorders (1 source) Unspecified otitis externa, right ear; 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: [UNS OTITIS EXTERNA RT EAR] Onset: 2 Chronic Other gastrointestinal disorders (1 source) Irritable bowel syndrome without diarrhea; 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: [IRRITABLE BOWEL SYND W/O DIARRHEA] Onset: 2 Chronic Other lower respiratory disease (7 sources) Dyspnea; 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: [Other respiratory abnormalities] Onset: 3 07-07-2023 Episodic Other lower respiratory disease (7 sources) Cough; 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: [Cough] Onset: 3 07-07-2023 Episodic Other nutritional; endocrine; and metabolic disorders (5 sources) Overweight in adulthood with body mass index of 25 or more but less than 30; 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: [Overweight] Onset: 3 07-11-2023 Episodic Other upper respiratory disease (1 source) Nasal congestion; 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: [NASAL CONGESTION] Onset: 2 Episodic Elizabeth-; endo-; and myocarditis; cardiomyopathy (except that caused by tuberculosis or sexually transmitted disease) (12 sources) Hypertrophic cardiomyopathy without obstruction; 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: [Other hypertrophic cardiomyopathy] Onset: 3 12-30-2022 Chronic Regional enteritis and ulcerative colitis (1 source) Crohn's disease, unspecified, without complications; 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: [CROHNS DISEASE UNS W/O COMP] Onset: 2 Chronic Residual codes; unclassified (6 sources) History of syncope; 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: [Other specified personal history presenting hazards to health] Episodic Residual codes; unclassified (3 sources) Body mass index 20-24 - normal; 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: [Body Mass Index between 19-24, adult] Episodic Secondary malignancies (1 source) Secondary malignant neoplasm of brain; 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: [Secondary malignant neoplasm of brain] 03-10-2023 Chronic Substance-related disorders (12 sources) Smoker; 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: [Nicotine dependence, unspecified, uncomplicated] Onset: 2 12-15-2021 Chronic Comment on above: 1/2 ppd; Unclassified (4 sources) COUGH, UNSPECIFIED; 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: [COUGH, UNSPECIFIED] Onset: 2 Unclassified (4 sources) CONTACT W/AND (SUSP) EXPOS COVID-19; 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: [CONTACT W/AND (SUSP) EXPOS COVID-19] Onset: 2 Unclassified (1 source) Atherosclerotic heart disease of [place] coronary artery with unspecified angina pectoris; 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: [Atherosclerotic heart disease of [place] coronary artery with unspecified angina pectoris] Onset: 3 Unclassified (1 source) Supraventricular tachycardia, unspecified; 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: [Supraventricular tachycardia, unspecified] Onset: 3 Viral infection (8 sources) Viral disease; 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: [Unspecified viral infection] Onset: 2 07-07-2023 Episodic Viral infection (1 source) COVID-19; 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: [COVID-19] Onset: 2 Past or Other Problems Problem Classification Problem Date Documented Date Episodic/Chronic E Codes: Cut/pierceb (1 source) Other foreign body or object entering through skin, initial encounter; 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: [OTH FB/OBJ ENTERING THRU SKIN INIT] Onset: 02-18-2022 Episodic Lymphadenitis (2 sources) Localized enlarged lymph nodes; 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: [Localized enlarged lymph nodes] Onset: 03-03-2023 Episodic Mood disorders (1 source) Mood disorders Onset: 01-25-2022 10-09-2022 Neoplasms of unspecified nature or uncertain behavior (8 sources) Neoplasm of lung ; 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: [Neoplasm of unspecified behavior of respiratory system] Onset: 03-15-2023 03-28-2023 Episodic Nonspecific chest pain (3 sources) Chest pain, unspecified; 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: [CHEST PAIN UNSPECIFIED] Onset: 12-14-2021 Episodic Open wounds of head; neck; and trunk (4 sources) Laceration without foreign body of right ear, initial encounter; 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: [LACERATION W/O FB RT EAR INIT ENC] Onset: 02-17-2022 Episodic Other aftercare (1 source) 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; 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: [OTH DIRECTOR OF ROTC CURRENT DRUG THERAPY] Onset: 02-21-2022 Episodic Other ear and sense organ disorders (3 sources) Otalgia, right ear; 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: [OTALGIA RIGHT EAR] Onset: 02-18-2022 Episodic Other lower respiratory disease (2 sources) Shortness of breath; 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: [Shortness of breath] Onset: 03-10-2023 Episodic Other lower respiratory disease (2 sources) Other nonspecific abnormal finding of lung field; 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: [Other nonspecific abnormal finding of lung field] Onset: 02-22-2023 Episodic Other screening for suspected conditions (not mental disorders or infectious disease) (4 sources) Encounter for screening mammogram for malignant neoplasm of breast; 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: [ENC SCR MAMMO MALIG NEOPLASM BREAST] Onset: 02-21-2022 Episodic Other upper respiratory disease (2 sources) Other specified diseases of upper respiratory tract; 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: [Other specified diseases of upper respiratory tract] Onset: 03-10-2023 Episodic Other upper respiratory disease (2 sources) Other diseases of mediastinum, not elsewhere classified; 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: [Other diseases of mediastinum, not elsewhere classified] Onset: 02-22-2023 Episodic Otitis media and related conditions (1 source) Otitis media, unspecified, right ear; 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: [OTITIS MEDIA UNSPECIFIED RIGHT EAR] Onset: 02-21-2022 Episodic Residual codes; unclassified (1 source) Acquired absence of other specified parts of digestive tract; 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: [ACQ ABSENCE OTH PART DIGESTV TRACT] Onset: 02-21-2022 Episodic Unclassified (1 source) COUGH, UNSPECIFIED; 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: [COUGH, UNSPECIFIED] Onset: 08-11-2022 Unclassified (1 source) CONTACT W/AND (SUSP) EXPOS COVID-19; 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: [CONTACT W/AND (SUSP) EXPOS COVID-19] Onset: 01-26-2022 Unclassified (1 source) Onset: 07-10-2023 07-10-2023 Unclassified (1 source) Supraventricular tachycardia, unspecified; 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: [Supraventricular tachycardia, unspecified] Onset: 07-10-2023 Results Test Name Value Interpretation Reference Range Facility [facility] 09-25-2023 CNPN Telephone (THORMN) -- JEANMARIE FARIA ([id number]) 1965 F Date Time Provider Department 09/25/23 STAN GARCIA During your visit today, we recorded the following information about you: Alber Fernandez 09/25/2023 1:54 PM Signed Received Hem/Onc office notes 09/19/23 from [facility] Record scanned in Epic Alber Fernandez, defense travel administrator Allergies As of Date: 09/25/2023 (No Known Allergies) Date Reviewed: 07/13/2023 Reviewed by: Toney Bailon LPN - Fully Assessed Reason for Visit: Received Outside Medical Records [[id number]] Prescriptions as of 09/25/2023 - buPROPion XL (WELLBUTRIN XL) 150 mg 24 hr tablet Take 150 mg by mouth every morning. - dilTIAZem CD (CARDIZEM CD, CARTIA XT) 240 mg 24 hr capsule Take 1 capsule by mouth every afternoon. - gabapentin (NEURONTIN) 300 mg capsule - ipratropium-albuterol (DUONEB) 0.5 mg-3 mg(2.5 mg base)/3 mL nebu 3mL Inhalation Q4H for 30 days - sodium chloride 0.9 % nebulizer solution 3mL Inhalation TID for 30 days - prochlorperazine (COMPAZINE) 10 mg tablet Take 10 mg by mouth every 8 hours as needed. - iv contrast (will be provided with radiology test) MRI Brain Inject, intravenously, once for 1 dose.No IV access, insert saline lock prior to beginning of sedation, infusion, injection of imaging exam.Discontinue saline lock post exam. If Pt. has a central line or IVAD, may access for administration according to line specific nursing protocol.Once exam is complete flush line and de-access according to line specific nursing protocol in the MR contrast administration guidelines link - albuterol HFA (PROVENTIL HFA, VENTOLIN HFA) 90 mcg/actuation inhaler inhale 2 puffs by mouth and INTO THE LUNGS every 6 hours if neede... (REFER TO PRESCRIPTION NOTES). - aspirin, enteric coated (ASPIRIN, ENTERIC COATED) 81 mg EC tablet Take 81 mg by mouth. - atorvastatin (LIPITOR) 80 mg tablet - isosorbide mononitrate ER (IMDUR) 30 mg 24 hr tablet Take 1 tablet by mouth every afternoon. - metoprolol succinate ER (TOPROL XL) 100 mg Take 50 mg by mouth. - nitroglycerin sublingual (NITROQUICK) 0.[address] 1 tablet under the tongue if needed every 5 minutes for shama... (REFER TO PRESCRIPTION NOTES). - Omeprazole Magnesium 20 mg tablet Take 40 mg by mouth. - predniSONE (DELTASONE) 20 mg tablet Take 40 mg by mouth every morning. - BRILINTA 90 mg tablet Take 1 tablet by mouth every 12 hours 6am/6pm. - traMADol (ULTRAM) 50 mg tablet Take 50 mg by mouth every 6 hours as needed. Problem List As Of Date: 09/25/2023 (None) Encounter Status:Closed by ALBER FERNANDEZ on 09/25/23 Normal [facility] CNOVon 07-13-2023 CNOV Office Visit (RADTSA ) -- JEANMARIE FARIA ([id number]) 1965 F Date Time Provider Department 07/13/23 1:00 PM SALEEM FITCH During your visit today, we recorded the following information about you: Temperature Pulse Respiration Blood pressure 96.9 degrees 76/minute 18/minute 103/67 Weight 70.3 kg Saleem Fitch MD 07/24/2023 11:15 PM Signed Radiation Oncology - Follow Up Note PATIENT NAME: Jeanmarie Faria PATIENT DIAGNOSIS/PATIENT IDENTIFICATION: Ms. Faria is a 57-year-old woman diagnosed with Stage III non-small cell lung cancer arising from the left chest who presented with initial compression of the left mainstem bronchus status post pulmonary stent placement by Dr. Foss. Staging workup with PET/CT noted disease in the left neck as well as primary disease in the chest. She was not felt to be a surgical candidate and proceeded to complete course of definitive concurrent chemoradiation in coordination with Dr. Rodriguez at the [facility] on 05/11/2023 (6,000 cGy delivered in 30 fractions with concurrent carboplatin/paclitaxel). INTERVAL HISTORY/ROS: Ms. Faria returns to clinic today for routine follow-up approximately two months after the completion of her radiation treatments. In the interim, she was hospitalized shortly after completion of treatment for pneumonia and arrhythmia (tachycardia). Since discharge she has been on supplemental oxygen [id number] via nasal cannula at 2 L/min. She feels that her cough is improved and denies any hemoptysis but still has some tightness in the chest with deep breaths. She denies any esophagitis that she is swallowing well. She is seeing a still operator brandy and is currently on a nebulizer 3 times a day as well as albuterol. She reports that she is scheduled for PFTs and potentially pulmonary rehab to follow. She had initial posttreatment imaging with PET/CT on 07/07/2023 showing complete metabolic response in the chest with no new definite areas of concern for disease regionally or distantly. She did have some persistent consolidation within the left lung base. She also notes being tobacco free for the past 2 months and is not currently on any antibiotics. She otherwise denies any recent fevers, chills, headaches, difficulty with speech/swallowing, abdominal pain, nausea, vomiting, change in bowel/urinary habits, difficulty with gait/balance, recent falls, etc. The remainder of the review of systems was performed and was otherwise noncontributory. ALLERGIES ALLERGIES No Known Allergies MEDICATIONS: Current Outpatient Medications: buPROPion XL (WELLBUTRIN XL) 150 mg 24 hr tablet dilTIAZem CD (CARDIZEM CD, CARTIA XT) 240 mg 24 hr capsule gabapentin (NEURONTIN) 300 mg capsule ipratropium-albuterol (DUONEB) 0.5 mg-3 mg(2.5 mg base)/3 mL nebu sodium chloride 0.9 % nebulizer solution albuterol HFA (PROVENTIL HFA, VENTOLIN HFA) 90 mcg/actuation inhaler aspirin, enteric coated (ASPIRIN, ENTERIC COATED) 81 mg EC tablet atorvastatin (LIPITOR) 80 mg tablet isosorbide mononitrate ER (IMDUR) 30 mg 24 hr tablet metoprolol succinate ER (TOPROL XL) 100 mg Omeprazole Magnesium 20 mg tablet prochlorperazine (COMPAZINE) 10 mg tablet iv contrast (will be provided with radiology test) nitroglycerin sublingual (NITROQUICK) 0.4 mg SL tablet predniSONE (DELTASONE) 20 mg tablet BRILINTA 90 mg tablet traMADol (ULTRAM) 50 mg tablet PHYSICAL EXAM: GENERAL: middle-aged woman sitting in chair in no acute distress. VITALS: BP 103/67 Pulse 76 Temp 96.9 Resp 18 Wt 155 lb (70.3kg) SpO2 98[O2 at 2L /NC]% KPS: 80 HEENT: NC/AT, anicteric sclera HEART: S1S2 LUNGS: non-labored breathing ABDOMEN: soft MUSCULOSKELETAL: no peripheral edema, moves all extremities. NEURO: no focal deficit; AANDO X3. RADIOLOGIC DATA: PET/CT (07/07/2023) ASSESSMENT AND PLAN: Ms. Faria is a 57-year-old woman diagnosed with Stage III non-small cell lung cancer arising from the left chest who presented with initial compression of the left mainstem bronchus status post pulmonary stent placement by Dr. Foss. Staging workup with PET/CT noted disease in the left neck as well as primary disease in the chest. She was not felt to be a surgical candidate and proceeded to complete course of definitive concurrent chemoradiation in coordination with Dr. Rodriguez at the [facility] on 05/11/2023 (6,000 cGy delivered in 30 fractions with concurrent carboplatin/paclitaxel). Ms. Faria continues to recover from the acute toxicities of her recent course of chemoradiation which was complicated by recent hospitalization for pneumonia. She is showing slow improvement but continues to require supplemental oxygen and will follow with her still operator brandy plans for PFTs as well as pulmonary rehab. Initial posttreatment imaging with PET/CT from 07/07/2023 shows exce (more content not included)... Normal [facility] JEANMARIE FARIA ([id number]) 1965 F Date Time Provider Department 06/27/23 [facility] During your visit today, we recorded the following information about you: Abdulkadir Akhil Pino 06/27/2023 11:02 AM Signed Patient called to let us know that her PET scan was denied and that Dr Campos office was going to decide if he is going to order a CT scan or not, patient said she would call us back to let us know, thank you. Saleem Fitch MD 06/27/2023 12:07 PM Signed Thanks for the update ... I've placed an order for PET as well - can we see if we can get it approved/scheduled (no need to cancel anything Dr. Rodriguez is scheduling) ... Thanks! Pino Zamora 06/27/2023 12:50 PM Signed Unfornatualy with her PET being denied they are not going to let us do another one it will just get denied again, they are setting her up to CTs she told me she would call me as soon as she knows dates and times Saleem Fitch MD 06/27/2023 2:49 PM Signed Can we submit? I am curious what the reason for denial is - it should be a fairly standard scan after treatment. Thanks! Pino Zamora 06/27/2023 2:57 PM Signed So we are actually contracted with her insurance here which does not require an auth, BUT in the back end since one was already done for another facility we are taking the chance of her getting it done here then being denied again. Pino Albrecht 06/28/2023 9:10 AM Signed Scheduled patient for PET scan called her and let her know what is going on, I emailed our auth team about it also, will keep you posted. Saleem Fitch MD 06/28/2023 9:49 AM Signed Thank you for following up on this. Please make sure authorization is in place before scan takes place on 07/12 including written confirmation from the auth team (would rather cancel or switch to a different scan if it's denied). Do not want the patient to get billed for it later. Thanks! Pino Zamora 07/03/2023 1:01 PM Signed Patient pet was approved through [facility] she is scheduled this Monday for scan and I did schedule her a followup for next week. thanks Allergies As of Date: 06/27/2023 (No Known Allergies) Date Reviewed: 05/10/2023 Reviewed by: Nilsa Deal, BURTON - Fully Assessed Reason for Visit: Appointment Confirmation [[id number]] Primary Visit Diagnosis:Malignant neoplasm of unspecified part of unspecified bronchus or lung (HCC) [C34.90] Order(s):NM PET/CT SKULL-THIGH SUBSEQUENT [[id number]] Order #: [id number] FUTURE Prescriptions as of 07/03/2023 - prochlorperazine (COMPAZINE) 10 mg tablet Take 10 mg by mouth every 8 hours as needed. - iv contrast (will be provided with radiology test) MRI Brain Inject, intravenously, once for 1 dose.No IV access, insert saline lock prior to beginning of sedation, infusion, injection of imaging exam.Discontinue saline lock post exam. If Pt. has a central line or IVAD, may access for administration according to line specific nursing protocol.Once exam is complete flush line and de-access according to line specific nursing protocol in the MR contrast administration guidelines link - albuterol HFA (PROVENTIL HFA, VENTOLIN HFA) 90 mcg/actuation inhaler inhale 2 puffs by mouth and INTO THE LUNGS every 6 hours if neede... (REFER TO PRESCRIPTION NOTES). - aspirin, enteric coated (ASPIRIN, ENTERIC COATED) 81 mg EC tablet Take 81 mg by mouth. - atorvastatin (LIPITOR) 80 mg tablet - isosorbide mononitrate ER (IMDUR) 30 mg 24 hr tablet Take 1 tablet by mouth every afternoon. - metoprolol succinate ER (TOPROL XL) 50 mg 24 hr tablet Take 50 mg by mouth. - nitroglycerin sublingual (NITROQUICK) 0.[address] 1 tablet under the tongue if needed every 5 minutes for shama... (REFER TO PRESCRIPTION NOTES). - Omeprazole Magnesium 20 mg tablet Take 40 mg by mouth. - predniSONE (DELTASONE) 20 mg tablet Take 40 mg by mouth every morning. - BRILINTA 90 mg tablet Take 1 tablet by mouth every 12 hours 6am/6pm. - traMADol (ULTRAM) 50 mg tablet Take 50 mg by mouth every 6 hours as needed. Problem List As Of Date: 06/27/2023 (None) Encounter Status:Closed by PINO ALBRECHT on 06/29/[address] [facility] CONSULTon 06-19-2023 CONSULT ------ -- Attestation signed by Maritza Pardo MD at 06/19/2023 5:23 PM I personally saw and examined the patient on the same date of service as resident/fellow Dr. Martinez. I discussed the findings and therapeutic plan with the resident/fellow Dr. Martinez. I agree with the documentation, except for any edits/updates below. Teaching Physician's Revisions: Ekg shows atrial tachycardia A. Tach is common in patients with COPD Management includes use of cardizem CD (diltiazem) Will start cardizem CD 120 mg daily Prescription sent to her pharmacy I asked her to see PCP or cardiology wihtin 1 week for recheck of EKG Maritza Pardo MD [place] [facility] -- Cardiology Consult Note Reason for Consult: afib? HPI: Jeanmarie Faria is a 57 y.o. female with non-small cell lung cancer, coronary artery disease s/p PCI 1/2-year ago, presented to the hospital for an elective bronchoscopy procedure, by pulmonary medicine, the patient was noticed to be tachycardic, EKG was done and cardiology team consulted for possible atrial fibrillation, patient denies any known history of atrial fibrillation, she is on aspirin at home and metoprolol which she did not take this morning, she denies sensation of palpitation, no previous stroke. Cardiology ROS: GENERAL: Denies fever, chills, night sweats, weight loss. CARDIOVASCULAR: Denies chest pain, exertional dyspnea, orthopnea/PND, lower extremity edema, palpitations, lightheadedness/dizziness, syncope. RESPIRATORY: Denies SOB, coughing, wheezing GI: Denies abdominal pain, nausea/vomiting. PSYCH: Denies anxiety. Past Medical History She has a past medical history of COPD (chronic obstructive pulmonary disease) ([facility]), Coronary artery disease, Diverticulosis, GERD (gastroesophageal reflux disease), History of transfusion, Hyperlipidemia, Hypertension, Irritable bowel syndrome, Mediastinal mass, Myocardial infarction ([facility]) (11/2021), and Spastic colon. Surgical History She has a past surgical history that includes Coronary stent placement; Cardiac catheterization; Appendectomy; Hysterectomy; Hernia repair; Exploratory laparotomy; and Breast biopsy (Bilateral). Social History She reports that she has been smoking cigarettes. She has been smoking an average of .5 packs per day. She has never used smokeless tobacco. She reports that she does not currently use alcohol. She reports that she does not currently use drugs. Family History Family History Problem Relation Name Age of Onset Heart failure Mother Diabetes Mother Other ([place]) Mother Hypertension Mother Allergies Patient has no known allergies. Medications (Not in a hospital admission) Last Recorded Vitals No data found. Physical Examination: GENERAL: AOx3, in no acute distress. HEAD: Atraumatic, normocephalic. EYES: COY, EOMI. NECK: No JVD present. CARDIAC: RRR. No murmur, rubs, or gallops. RESPIRATORY: CTAB, no increased effort of breathing. ABDOMEN: Soft, nontender, nondistended. EXTREMITIES: No lower extremity edema, peripheral pulses are 2+ bilaterally. NEURO: No focal deficits Relevant Lab Results @LABRESULTS@ Encounter Date: 06/19/23 ECG 12 lead Result Value Ventricular Rate 99 Atrial Rate 99 MA Interval 150 QRS DURATION 86 QT Interval 362 QTC CALCULATION(BAZETT) 464 P Kirwin 32 R-Kirwin 20 T Wave Kirwin 170 Impression Sinus rhythm with Premature atrial complexes Left ventricular hypertrophy with repolarization abnormality ( R in aVL , Sokolow-Calles , Romhilt-Pires ) Abnormal ECG No previous ECGs available No results found for: CKTOTAL, CKMB, CKMBINDEX, TROPONINI No echocardiogram results found for the past 12 months No nuclear medicine results found for the past 12 months Relevant Imaging Results ECG 12 lead Sinus rhythm with Premature atrial complexes Left ventricular hypertrophy with repolarization abnormality ( R in aVL , Sokolow-Calles , Romhilt-Pires ) Abnormal ECG No previous ECGs available Bronchoscopy with Revision of Stent Images from the original result were not included. Interventional Pulmonary Medicine Procedure Type: Bronchoscopy, foreign body (stent) removal Date of procedure: 06/19/2023 Indication: History of non-small cell lung cancer status postchemotherapy and radiation and remote stenting Attending: Betito Foss MD Fellow(s): Sapphire JERRY Consent/timeout: Obtained/performed Anesthesia: General Description of the procedure: Procedure was done in the OR. Airway maintained with LMA. The bronchoscope was passed via the LMA tube and advanced to the tracheobronchial tree. 1% lidocaine 5 cc were applied to the vocal cords. The scope was then advanced through the vocal cords. 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 [facility] 06-19-2023 ------ -- Attestation signed by Betito Foss MD at 06/19/2023 11:56 AM Re-explained the procedure to the patient along with the associated risk of pneumothorax, bleeding, hypoxia, and respiratory failure. Patient is agreeable and will proceed with the scheduled bronchoscopy and stent revision/removal Betito Foss MD Interventional Pulmonary Medicine Pulmonary and Critical Care Medicine [facility] Phys[facility] -- H&P reviewed. The patient was examined and there are no changes to the H&P. GENERAL: Alert and oriented x 3. No acute distress. HEENT: EOMI, no scleral icterus. Moist mucous membranes. NECK: trachea midline, no JVD. Supple. LUNGS: Clear to auscultation bilaterally. No wheezes, rales, or rhonchi CARDIOVASCULAR: Regular rate and rhythm. Normal S1 and S2. No murmur, rubs, or gallops. BACK: normal curvature EXTREMITIES: No cyanosis, no edema, no calf tenderness Discussed with patient in details, she is agreeable. Consent obtained. [facility] Orders Onlyon 06-19-2023 Orders Only [id number] Cyndee Faria 1965 F Date Provider Department Center 06/19/2023 LITTLE RAZOESH [facility] CARD Flo Grimm Family History Problem Relation Age of Onset Heart failure Mother Diabetes Mother Other Mother Hypertension Mother Family Status - Relation Status Age at Mother Normal [facility] POCT GLUCOSE METER UNSOLICIT ED RESULTSon 06-19-2023 Glucose [Mass/Vol] 100 mg/dL Normal 70-105 [facility] ela [facility] Comment on above: Order Comment: Waive d Testing in the ED is performed under the ED CLIA certificate #[id number]. Result Comment: ltol les Performed By: #### L [id number] ####[facility] (BEAKER)[address] [place] [address] Orders Onlyon 06-16-2023 Orders Only [id number] Cyndee Faria da 1965 [facility] Department Center 06/16/2023 TOYIN CRENSHAW [facility] PAT [facility] Family History Problem Relation Age of Onset Heart failure Mother Diabetes Mother Other Mother Hypertension Mother Family Status - Relation Status Age at Mother Normal [facility] HPon 06-15-2023 HP ------ -- Attestation signed by Betito Foss MD at 06/16/2023 8:25 AM Total time spent on day of encounter: 30 minutes Attending attestation: GC: I personally spoke with this patient via telephone on the day of the encounter, performed the puente portion(s) of the service and participated in the management and confirm the fellow's documentation. Physical examination was not performed and may limit some portions of the clinical encounter. Please note there may be an additional personal documentation from me. -- Pulmonary Clinic Visit Note Patient: Jeanmarie Faria Age: 57 y.o. : 1965 Account No.: [id number] Chief complaint: Stent reversion HPI Jeanmarie Faria is a 57 y.o. 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 Status post left main bronchus stent placed on 03/10/2023. The patient presented today for televisit for stent revision. Overall the patient feels okay although she is on 2 L/min oxygen. She has more respiratory secretion which she feels she cannot bring it up. She is compliant with the hypertonic saline nebulizer and the albuterol inhalers. She denies having worsening shortness of breath, chest pain, and hemoptysis. She finished her chemotherapy with the oncology clinic. She is a scheduled for PET scan on 06/23/2023. Review of Systems: Constitutional: no activity change, no appetite change, no chills, no fatigue and f no ever. HENT: No nasal congestion, no postnasal drip, and no hearing loss, no rhinorrhea and no sore throat. Eyes: No discharge and no visual disturbance. Respiratory: Dyspnea on exertion, cough and sputum, no choking, no chest tightness, no wheezing and no stridor. Cardiovascular: No chest pain, no palpitations and no leg swelling. Gastrointestinal: No abdominal pain. Musculoskeletal: No arthralgias and no myalgias. Skin: No color change and no wound. Neurological: No dizziness and no headaches. Physical examination: Vitals: There were no vitals taken for this visit. Unobtainable/televisit. Labs Results: Pertinent lab result reviewed in the chart Radiology: No Chest X-ray results found for the past [address] results found for the past 12 months Assessment and Plan: #1-Non-small cell carcinoma, Left upper lobe Status post left main bronchus stenting. Plan for bronchoscopy for stent revision +/- stent removal. Patient is currently on Brilinta which should be held for 5 days prior to the procedure. Patient is agreeable on the bronchoscopy and the risk and benefit was discussed with her. Date of phone call: 06/15/2023 Total time spent in Medical Discussion: 30 minutes. Total 30 minutes. The visit was initiated by the patient and conducted [id number] with use of audio-only real time telephone communication between patient and provider for a virtual visit. Verbal consent to provide and bill for this service was obtained on 06/15/2023. No signature was obtained due to the COVID-19 pandemic. Julio Taylor Pulmonary and critical care fellow [facility]. 06/15/23 11:39 AM Normal [facility] Telemedicineon 06-15-2023 Telemedicine [id number] Cyndee Faria 1965 F Date Provider Department Center 06/15/2023 [id number] FOSS DCC ONC DCC Family History Problem Relation Age of Onset Heart failure Mother Diabetes Mother Other Mother Hypertension Mother Family Status - Relation Status Age at Mother Level of Service:82378 MA PHYS/QHP TELEPHONE EVALUATION 21-30 MIN () Reason for Visit and Comments: tracheal mass [Other] - Tracheal stent placed in February [address] Foss for tracheal mass. Dr Rodriguez would like patient bronched for EBUS restaging. Notes scanned into media. CT done 05-29-23. Films in EPIC Normal [facility] Tele[facility] (RADTSA) -- JEANMARIE FAIRA ([id number]) 1965 F Date Time Provider Department 06/01/23 SALEEM FITCH During your visit today, we recorded the following information about you: Toney Bailon LPN 06/01/2023 9:54 AM Signed I called to get a post radiation therapy update from Jeanmarie. She states she is currently inpatient at [facility] with pneumonia. She will call our office to give an update once she is discharged. BURTON Stewart Saju, MD 06/01/2023 11:10 AM Signed Thanks! Saleem Allergies As of Date: 06/01/2023 (No Known Allergies) Date Reviewed: 05/10/2023 Reviewed by: Nilsa Deal RN - Fully Assessed Reason for Visit: Patient Update [1234] Cmt: Nurse Call post radiation Prescriptions as of 06/01/2023 - prochlorperazine (COMPAZINE) 10 mg tablet Take 10 mg by mouth every 8 hours as needed. - iv contrast (will be provided with radiology test) MRI Brain Inject, intravenously, once for 1 dose.No IV access, insert saline lock prior to beginning of sedation, infusion, injection of imaging exam.Discontinue saline lock post exam. If Pt. has a central line or IVAD, may access for administration according to line specific nursing protocol.Once exam is complete flush line and de-access according to line specific nursing protocol in the MR contrast administration guidelines link - albuterol HFA (PROVENTIL HFA, VENTOLIN HFA) 90 mcg/actuation inhaler inhale 2 puffs by mouth and INTO THE LUNGS every 6 hours if neede... (REFER TO PRESCRIPTION NOTES). - aspirin, enteric coated (ASPIRIN, ENTERIC COATED) 81 mg EC tablet Take 81 mg by mouth. - atorvastatin (LIPITOR) 80 mg tablet - isosorbide mononitrate ER (IMDUR) 30 mg 24 hr tablet Take 1 tablet by mouth every afternoon. - metoprolol succinate ER (TOPROL XL) 50 mg 24 hr tablet Take 50 mg by mouth. - nitroglycerin sublingual (NITROQUICK) 0.[address] 1 tablet under the tongue if needed every 5 minutes for shama... (REFER TO PRESCRIPTION NOTES). - Omeprazole Magnesium 20 mg tablet Take 40 mg by mouth. - predniSONE (DELTASONE) 20 mg tablet Take 40 mg by mouth every morning. - BRILINTA 90 mg tablet Take 1 tablet by mouth every 12 hours 6am/6pm. - traMADol (ULTRAM) 50 mg tablet Take 50 mg by mouth every 6 hours as needed. Problem List As Of Date: 06/01/2023 (None) Encounter Status:Closed by TONEY BAILON on 06/01/[address] [facility] [place] 05-11-2023 [facility] Telephone (WIQ) -- JEANMARIE FARIA ([id number]) 1965 F Date Time Provider Department 05/11/23 RYAN BAIN During your visit today, we recorded the following information about you: Ryan Bain, [facility] 05/11/2023 2:56 PM Signed Smoking Cessation Navigation Outcome of contact: Left Message Comments: A voicemail has been left for this patient regarding Tobacco Cessation support options. If this patient has any further questions they can email us at or call us at [phone]. 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 - iv contrast (will be provided with radiology test) MRI Brain Inject, intravenously, once for 1 dose.No IV access, insert saline lock prior to beginning of sedation, infusion, injection of imaging exam.Discontinue saline lock post exam. If Pt. has a central line or IVAD, may access for administration according to line specific nursing protocol.Once exam is complete flush line and de-access according to line specific nursing protocol in the MR contrast administration guidelines link - albuterol HFA (PROVENTIL HFA, VENTOLIN HFA) 90 mcg/actuation inhaler inhale 2 puffs by mouth and INTO THE LUNGS every 6 hours if neede... (REFER TO PRESCRIPTION NOTES). - aspirin, enteric coated (ASPIRIN, ENTERIC COATED) 81 mg EC tablet Take 81 mg by mouth. - atorvastatin (LIPITOR) 80 mg tablet - isosorbide mononitrate ER (IMDUR) 30 mg 24 hr tablet Take 1 tablet by mouth every afternoon. - metoprolol succinate ER (TOPROL XL) 50 mg 24 hr tablet Take 50 mg by mouth. - nitroglycerin sublingual (NITROQUICK) 0.[address] 1 tablet under the tongue if needed every 5 minutes for shama... (REFER TO PRESCRIPTION NOTES). - Omeprazole Magnesium 20 mg tablet Take 40 mg by mouth. - predniSONE (DELTASONE) 20 mg tablet Take 40 mg by mouth every morning. - BRILINTA 90 mg tablet Take 1 tablet by mouth every 12 hours 6am/6pm. - traMADol (ULTRAM) 50 mg tablet Take 50 mg by mouth every 6 hours as needed. Problem List As Of Date: 05/11/2023 (None) Encounter Status:Closed by RYAN BAIN on 05/11/[address] [facility] CNOVon 05-10-2023 CNOV Office Visit (RADTSA ) -- JEANMARIE FARIA ([id number]) 1965 F Date Time Provider Department 05/10/23 12:30 PM SALEEM FITCH During your visit today, we recorded the following information about you: Temperature Pulse Respiration Blood pressure 96.7 degrees 74/minute 18/minute 138/90 Weight 71.2 kg Saleem Fitch MD 05/24/2023 4:48 AM Addendum Radiation Oncology - On Treatment Review (OTR) Note PATIENT NAME: Jeanmarie Faria PATIENT DIAGNOSIS: Ms. Faria is a 57-year-old woman diagnosed with stage III non-small cell lung cancer arising from the left chest who presented with initial compression of the left mainstem bronchus status post placement of pulmonary stent. She was not felt to be a surgical candidate and proceeds to definitive concurrent chemoradiation. PROTOCOL: no COURSE: definitive and concurrent chemotherapy Current dose: 5800 cGy in 29 fx Planned dose: 6000 cGy in 30 fx Status: Patient states there is no possibility she is at this time SUBJECTIVE: Tolerating XRT well and reports no change in her breathing or cough and denies any hemoptysis or chest pain or difficulty swallowing. She does note fatigue with stable appetite hydration and weight. Last 5 Encounter Wt Readings: Date: Wt: 05/10/2023 71.2 kg (157 lb) 05/03/2023 72.8 kg (160 lb 9.6 oz) 04/26/2023 72.9 kg (160 lb 12.8 oz) 04/19/2023 72.1 kg (159 lb) 04/12/2023 73.9 kg (163 lb) PHYSICAL EXAM: Area Assessed: Chest KPS: 80 General Appearance: Alert and oriented. No acute distress. Chest: No respiratory distress. IMAGING/LAB RESULTS: None TOXICITY ASSESSMENT (CTC v4.0): Fatigue: grade 1 - Fatigue relieved by rest Weight loss: grade 0 - No weight loss Nausea:Grade 0 - No Symptoms Radiation Dermatitis:grade 1 - Faint erythema or dry desquamation Dysphagia: grade 0 - No symptoms Esophageal Pain: Grade 0 - No symptoms Dyspnea: grade 1 (Shortness of breath with moderate exertion) Treatment chart checked: Yes Patient treatment site reviewed and verified:Yes Port films reviewed and current:Yes Medications started: None ASSESSMENT/PLAN: Clinically stable. Toxicity within expected parameters. Continue radiation treatment as planned. She was counseled again regarding smoking cessation. Saleem Fitch MD Allergies As of Date: 05/10/2023 (No Known Allergies) Date Reviewed: 05/10/2023 Reviewed by: Nilsa Deal RN - Fully Assessed Reason for Visit: Radiotherapy On-treatment Visit [172] Primary Visit Diagnosis:Neoplasm of lung [D49.1] Prescriptions as of 05/24/2023 - prochlorperazine (COMPAZINE) 10 mg tablet Take 10 mg by mouth every 8 hours as needed. - iv contrast (will be provided with radiology test) MRI Brain Inject, intravenously, once for 1 dose.No IV access, insert saline lock prior to beginning of sedation, infusion, injection of imaging exam.Discontinue saline lock post exam. If Pt. has a central line or IVAD, may access for administration according to line specific nursing protocol.Once exam is complete flush line and de-access according to line specific nursing protocol in the MR contrast administration guidelines link - albuterol HFA (PROVENTIL HFA, VENTOLIN HFA) 90 mcg/actuation inhaler inhale 2 puffs by mouth and INTO THE LUNGS every 6 hours if neede... (REFER TO PRESCRIPTION NOTES). - aspirin, enteric coated (ASPIRIN, ENTERIC COATED) 81 mg EC tablet Take 81 mg by mouth. - atorvastatin (LIPITOR) 80 mg tablet - isosorbide mononitrate ER (IMDUR) 30 mg 24 hr tablet Take 1 tablet by mouth every afternoon. - metoprolol succinate ER (TOPROL XL) 50 mg 24 hr tablet Take 50 mg by mouth. - nitroglycerin sublingual (NITROQUICK) 0.[address] 1 tablet under the tongue if needed every 5 minutes for shama... (REFER TO PRESCRIPTION NOTES). - Omeprazole Magnesium 20 mg tablet Take 40 mg by mouth. - predniSONE (DELTASONE) 20 mg tablet Take 40 mg by mouth every morning. - BRILINTA 90 mg tablet Take 1 tablet by mouth every 12 hours 6am/6pm. - traMADol (ULTRAM) 50 mg tablet Take 50 mg by mouth every 6 hours as needed. Problem List As Of Date: 05/10/2023 (None) Encounter Status:Closed by SALEEM FITCH on 05/23/[address] [facility] CNOVmerced 05-03-2023 CNOV Office Visit (RADTSA ) -- JEANMARIE FARIA ([id number]) 1965 F Date Time Provider Department 05/03/23 12:30 PM SALEEM FITCH During your visit today, we recorded the following information about you: Temperature Pulse Respiration Blood pressure 96.9 degrees 64/minute 18/minute 91/59 Weight 72.8 kg Saleem Fitch MD 05/16/2023 11:31 PM Signed Radiation Oncology - On Treatment Review (OTR) Note PATIENT NAME: Jeanmarie Faria PATIENT DIAGNOSIS: Ms. Faria is a 57-year-old woman diagnosed with stage III non-small cell lung cancer arising from the left chest who presented with initial compression of the left mainstem bronchus status post placement of pulmonary stent. She was not felt to be a surgical candidate and proceeds to definitive concurrent chemoradiation. PROTOCOL: no COURSE: definitive and concurrent chemotherapy Current dose: 4800 cGy in 24 fx Planned dose: 6000 cGy in 30 fx SUBJECTIVE: Tolerating XRT well and reports no change in her breathing or mild cough and continues to use her albuterol inhaler a few times a week which helps. She denies any mopped assist or chest pain and reports being able to swallow well and eat all consistencies. She also notes that her voice is improved and started a course of tapering steroids. She does endorse fatigue with stable appetite and hydration and weight. Last 5 Encounter Wt Readings: Date: Wt: 05/03/2023 72.8 kg (160 lb 9.6 oz) 04/26/2023 72.9 kg (160 lb 12.8 oz) 04/19/2023 72.1 kg (159 lb) 04/12/2023 73.9 kg (163 lb) 04/05/2023 72.6 kg (160 lb) PHYSICAL EXAM: Area Assessed: Chest KPS: 80 General Appearance: Alert and oriented. No acute distress. Chest: No respiratory distress. IMAGING/LAB RESULTS: None TOXICITY ASSESSMENT (CTC v4.0): Fatigue: grade 1 - Fatigue relieved by rest Weight loss: grade 0 - No weight loss Nausea:Grade 0 - No Symptoms Radiation Dermatitis:grade 0 - No symptoms Dysphagia: grade 0 - No symptoms Esophageal Pain: Grade 0 - No symptoms Dyspnea: grade 1 (Shortness of breath with moderate exertion) Treatment chart checked: Yes Patient treatment site reviewed and verified:Yes Port films reviewed and current:Yes Medications started: None ASSESSMENT/PLAN: Clinically stable. Toxicity within expected parameters. Continue radiation treatment as planned. Saleem Fitch MD Allergies As of Date: 05/03/2023 (No Known Allergies) Date Reviewed: 05/03/2023 Reviewed by: Toney Bailon LPN - Fully Assessed Reason for Visit: Radiotherapy On-treatment Visit [172] Primary Visit Diagnosis:Neoplasm of lung [D49.1] Prescriptions as of 05/16/2023 - prochlorperazine (COMPAZINE) 10 mg tablet Take 10 mg by mouth every 8 hours as needed. - iv contrast (will be provided with radiology test) MRI Brain Inject, intravenously, once for 1 dose.No IV access, insert saline lock prior to beginning of sedation, infusion, injection of imaging exam.Discontinue saline lock post exam. If Pt. has a central line or IVAD, may access for administration according to line specific nursing protocol.Once exam is complete flush line and de-access according to line specific nursing protocol in the MR contrast administration guidelines link - albuterol HFA (PROVENTIL HFA, VENTOLIN HFA) 90 mcg/actuation inhaler inhale 2 puffs by mouth and INTO THE LUNGS every 6 hours if neede... (REFER TO PRESCRIPTION NOTES). - aspirin, enteric coated (ASPIRIN, ENTERIC COATED) 81 mg EC tablet Take 81 mg by mouth. - atorvastatin (LIPITOR) 80 mg tablet - isosorbide mononitrate ER (IMDUR) 30 mg 24 hr tablet Take 1 tablet by mouth every afternoon. - metoprolol succinate ER (TOPROL XL) 50 mg 24 hr tablet Take 50 mg by mouth. - nitroglycerin sublingual (NITROQUICK) 0.[address] 1 tablet under the tongue if needed every 5 minutes for shama... (REFER TO PRESCRIPTION NOTES). - Omeprazole Magnesium 20 mg tablet Take 40 mg by mouth. - predniSONE (DELTASONE) 20 mg tablet Take 40 mg by mouth every morning. - BRILINTA 90 mg tablet Take 1 tablet by mouth every 12 hours 6am/6pm. - traMADol (ULTRAM) 50 mg tablet Take 50 mg by mouth every 6 hours as needed. Problem List As Of Date: 05/03/2023 (None) Encounter Status:Closed by SALEEM FITCH on 05/16/[address] [facility] [place] 04-26-2023 CNOV Office Visit (RADTSA ) -- JEANMARIE FARIA ([id number]) 1965 F Date Time Provider Department 04/26/23 12:30 PM SALEEM FITCH During your visit today, we recorded the following information about you: Temperature Pulse Respiration Blood pressure 97.1 degrees 56/minute 16/minute 106/72 Weight 72.9 kg Toney Bailon LPN 04/26/2023 12:35 PM Signed Status: Post-menopausal. Saleem Fitch MD 05/09/2023 10:19 PM Signed Radiation Oncology - On Treatment Review (OTR) Note PATIENT NAME: Jeanmarie Faria PATIENT DIAGNOSIS: Ms. Faria is a 57-year-old woman diagnosed with stage III non-small cell lung cancer arising from the left chest who presented with initial compression of the left mainstem bronchus status post placement of pulmonary stent. She was not felt to be a surgical candidate and proceeds to definitive concurrent chemoradiation. PROTOCOL: no COURSE: definitive and concurrent chemotherapy Current dose: 4000 cGy in 20 fx Planned dose: 6000 cGy in 30 fx Status: Patient states there is no possibility she is at this time SUBJECTIVE: Tolerating XRT well and reports no significant change in her breathing and she continues to have dyspnea on exertion and feels that her cough is improved. She denies any mopped assist and notes continued resolution of her chest discomfort and feels that her voice is slightly better. She is able to swallow fairly well and able to eat all consistencies. She does endorse fatigue with stable appetite and hydration and weight. She did start a tapering course of prednisone per Dr. Rodriguez. PHYSICAL EXAM: Area Assessed: Chest KPS: 80 General Appearance: Alert and oriented. No acute distress. Chest: No respiratory distress. IMAGING/LAB RESULTS: None TOXICITY ASSESSMENT (CTC v4.0): Fatigue: grade 1 - Fatigue relieved by rest Weight loss: grade 0 - No weight loss Nausea:Grade 0 - No Symptoms Radiation Dermatitis:grade 0 - No symptoms Dysphagia: grade 0 - No symptoms Esophageal Pain: Grade 0 - No symptoms Dyspnea: grade 1 (Shortness of breath with moderate exertion) Treatment chart checked: Yes Patient treatment site reviewed and verified:Yes Port films reviewed and current:Yes Medications started: None ASSESSMENT/PLAN: Clinically stable. Toxicity within expected parameters. Continue radiation treatment as planned. Counseled again regarding smoking cessation. Saleem Fitch MD Allergies As of Date: 04/26/2023 (No Known Allergies) Date Reviewed: 04/26/2023 Reviewed by: Toney Bailon LPN - Fully Assessed Reason for Visit: Radiotherapy On-treatment Visit [1722] Primary Visit Diagnosis:Smoking greater than 40 pack years [F17.210] Other Visit Diagnosis:Neoplasm of lung [D49.1] Order(s):CONSULT TO SMOKING CESSATION [[id number]] Order #: [id number]: 1 Prescriptions as of 05/09/2023 - prochlorperazine (COMPAZINE) 10 mg tablet Take 10 mg by mouth every 8 hours as needed. - iv contrast (will be provided with radiology test) MRI Brain Inject, intravenously, once for 1 dose.No IV access, insert saline lock prior to beginning of sedation, infusion, injection of imaging exam.Discontinue saline lock post exam. If Pt. has a central line or IVAD, may access for administration according to line specific nursing protocol.Once exam is complete flush line and de-access according to line specific nursing protocol in the MR contrast administration guidelines link - albuterol HFA (PROVENTIL HFA, VENTOLIN HFA) 90 mcg/actuation inhaler inhale 2 puffs by mouth and INTO THE LUNGS every 6 hours if neede... (REFER TO PRESCRIPTION NOTES). - aspirin, enteric coated (ASPIRIN, ENTERIC COATED) 81 mg EC tablet Take 81 mg by mouth. - atorvastatin (LIPITOR) 80 mg tablet - isosorbide mononitrate ER (IMDUR) 30 mg 24 hr tablet Take 1 tablet by mouth every afternoon. - metoprolol succinate ER (TOPROL XL) 50 mg 24 hr tablet Take 50 mg by mouth. - nitroglycerin sublingual (NITROQUICK) 0.[address] 1 tablet under the tongue if needed every 5 minutes for shama... (REFER TO PRESCRIPTION NOTES). - Omeprazole Magnesium 20 mg tablet Take 40 mg by mouth. - predniSONE (DELTASONE) 20 mg tablet Take 40 mg by mouth every morning. - BRILINTA 90 mg tablet Take 1 tablet by mouth every 12 hours 6am/6pm. - traMADol (ULTRAM) 50 mg tablet Take 50 mg by mouth every 6 hours as needed. Problem List As Of Date: 04/26/2023 (None) Visit Notes: >> Toney BailonBRADY MonApr 26, 2023 12:32 PM Status: Signed Status: Post-menopausal. Encounter Status:Closed by SALEEM FITCH on 05/09/[address] [facility] CNOVon 04-19-2023 CNOV Office Visit (RADTSA ) -- JEANMARIE FARIA ([id number]) 1965 F Date Time Provider Department 04/19/23 10:15 AM SALEEM FITCH During your visit today, we recorded the following information about you: Temperature Pulse Respiration Blood pressure 96.9 degrees 64/minute 18/minute 112/76 Weight 72.1 kg Saleem Fitch MD 05/02/2023 9:30 PM Signed Radiation Oncology - On Treatment Review (OTR) Note PATIENT NAME: Jeanmarie Faria PATIENT DIAGNOSIS: Ms. Faria is a 57-year-old woman diagnosed with stage III non-small cell lung cancer arising from the left chest who presented with initial compression of the left mainstem bronchus status post placement of pulmonary stent. She was not felt to be a surgical candidate and proceeds to definitive concurrent chemoradiation. PROTOCOL: no COURSE: definitive and concurrent chemotherapy Current dose: 3400 cGy in 17 fx Planned dose: 6000 cGy in 30 fx Status: Patient states there is no possibility she is at this time SUBJECTIVE: Tolerating XRT well with no worsening of her breathing and stable cough and denies any hemoptysis. She is able to swallow consistencies and notes resolution of her chest discomfort. She does have hoarseness of her voice. She endorses fatigue with stable appetite and hydration and weight. PHYSICAL EXAM: Area Assessed: Chest KPS: 90 General Appearance: Alert and oriented. No acute distress. Chest: No respiratory distress. IMAGING/LAB RESULTS: None TOXICITY ASSESSMENT (CTC v4.0): Fatigue: grade 1 - Fatigue relieved by rest Weight loss: grade 0 - No weight loss Nausea:Grade 0 - No Symptoms Radiation Dermatitis:grade 0 - No symptoms Dysphagia: grade 1 - Symptomatic, able to eat regular diet Esophageal Pain: Grade 1 - Mild pain Dyspnea: grade 1 (Shortness of breath with moderate exertion) Treatment chart checked: Yes Patient treatment site reviewed and verified:Yes Port films reviewed and current:Yes Medications started: None ASSESSMENT/PLAN: Clinically stable. Toxicity within expected parameters. Continue radiation treatment as planned. Discussed with Dr. Rodriguez and x-ray of her chest showed that her pulmonary stent was in place and no abnormalities in her lung fletcher. He will consider adding a tapering dose of steroids. Saleem Fitch MD Allergies As of Date: 04/19/2023 (No Known Allergies) Date Reviewed: 04/19/2023 Reviewed by: Toney Bailon LPN - Fully Assessed Reason for Visit: Radiotherapy On-treatment Visit [1722] Primary Visit Diagnosis:Neoplasm of lung [D49.1] Prescriptions as of 05/02/2023 - prochlorperazine (COMPAZINE) 10 mg tablet Take 10 mg by mouth every 8 hours as needed. - iv contrast (will be provided with radiology test) MRI Brain Inject, intravenously, once for 1 dose.No IV access, insert saline lock prior to beginning of sedation, infusion, injection of imaging exam.Discontinue saline lock post exam. If Pt. has a central line or IVAD, may access for administration according to line specific nursing protocol.Once exam is complete flush line and de-access according to line specific nursing protocol in the MR contrast administration guidelines link - albuterol HFA (PROVENTIL HFA, VENTOLIN HFA) 90 mcg/actuation inhaler inhale 2 puffs by mouth and INTO THE LUNGS every 6 hours if neede... (REFER TO PRESCRIPTION NOTES). - aspirin, enteric coated (ASPIRIN, ENTERIC COATED) 81 mg EC tablet Take 81 mg by mouth. - atorvastatin (LIPITOR) 80 mg tablet - isosorbide mononitrate ER (IMDUR) 30 mg 24 hr tablet Take 1 tablet by mouth every afternoon. - metoprolol succinate ER (TOPROL XL) 50 mg 24 hr tablet Take 50 mg by mouth. - nitroglycerin sublingual (NITROQUICK) 0.[address] 1 tablet under the tongue if needed every 5 minutes for shama... (REFER TO PRESCRIPTION NOTES). - Omeprazole Magnesium 20 mg tablet Take 40 mg by mouth. - predniSONE (DELTASONE) 20 mg tablet Take 40 mg by mouth every morning. - BRILINTA 90 mg tablet Take 1 tablet by mouth every 12 hours 6am/6pm. - traMADol (ULTRAM) 50 mg tablet Take 50 mg by mouth every 6 hours as needed. Problem List As Of Date: 04/19/2023 (None) Encounter Status:Closed by SALEEM FITCH on 05/02/[address] [facility] CNOVon 04-18-2023 CNOV Office Visit (HEMASA ) -- JEANMARIE FARIA ([id number]) 1965 F Date Time Provider Department 04/18/23 BRI BERNARD During your visit today, we recorded the following information about you: Bri Bernard LMT 04/18/2023 2:21 PM Signed Patient Name: Jeanmarie Trinht : 1965 Referred For: CHAIR MASSAGE Diagnosis: MUSCLE SORENESS Chief Complaint: Pain Anxiety (pre): 0 Pain (pre): patient declined to answer Stress Level (pre): 0 Therapy Provided: Massage Therapy Area(s) Treated: NECK AND SHOULDERS Anxiety (post): 0 Pain (post): patient declined to answer Stress Level (post): 0 Visit Outcome: Better Comments: PATIENT STATES OF MUSCLE SORENESS BETWEEN THE SHOULDER BLADES AND NECK SORENESS Treatment Plan: MYOFASCIAL RELEASE BILATERAL SCAPULA AND NECK Care Team contacted: N/A Signature: Bri Bernard LMT Date: April 18, 2023 Time: 2:18 PM Allergies As of Date: 04/18/2023 (No Known Allergies) Date Reviewed: 04/12/2023 Reviewed by: Weyer, Nilsa, RN - Fully Assessed Primary Visit Diagnosis:Muscle soreness [M79.10] Prescriptions as of 04/18/2023 - prochlorperazine (COMPAZINE) 10 mg tablet Take 10 mg by mouth every 8 hours as needed. - iv contrast (will be provided with radiology test) MRI Brain Inject, intravenously, once for 1 dose.No IV access, insert saline lock prior to beginning of sedation, infusion, injection of imaging exam.Discontinue saline lock post exam. If Pt. has a central line or IVAD, may access for administration according to line specific nursing protocol.Once exam is complete flush line and de-access according to line specific nursing protocol in the MR contrast administration guidelines link - albuterol HFA (PROVENTIL HFA, VENTOLIN HFA) 90 mcg/actuation inhaler inhale 2 puffs by mouth and INTO THE LUNGS every 6 hours if neede... (REFER TO PRESCRIPTION NOTES). - aspirin, enteric coated (ASPIRIN, ENTERIC COATED) 81 mg EC tablet Take 81 mg by mouth. - atorvastatin (LIPITOR) 80 mg tablet - isosorbide mononitrate ER (IMDUR) 30 mg 24 hr tablet Take 1 tablet by mouth every afternoon. - metoprolol succinate ER (TOPROL XL) 50 mg 24 hr tablet Take 50 mg by mouth. - nitroglycerin sublingual (NITROQUICK) 0.[address] 1 tablet under the tongue if needed every 5 minutes for shama... (REFER TO PRESCRIPTION NOTES). - Omeprazole Magnesium 20 mg tablet Take 40 mg by mouth. - predniSONE (DELTASONE) 20 mg tablet Take 40 mg by mouth every morning. - BRILINTA 90 mg tablet Take 1 tablet by mouth every 12 hours 6am/6pm. - traMADol (ULTRAM) 50 mg tablet Take 50 mg by mouth every 6 hours as needed. Problem List As Of Date: 04/18/2023 (None) Encounter Status:Closed by BRI BERNARD on 04/18/[address] [facility] MARGIEOVmerced 04-12-2023 CNOV Office Visit (RADTSA ) -- JEANMARIE FARIA ([id number]) 1965 F Date Time Provider Department 04/12/23 2:15 PM SALEEM FITCH During your visit today, we recorded the following information about you: Temperature Pulse Respiration Blood pressure 96.7 degrees 74/minute 18/minute 123/77 Weight 73.9 kg Saleem Fitch MD 04/12/2023 5:17 PM Signed Radiation Oncology - On Treatment Review (OTR) Note PATIENT NAME: Jeanmarie Faria PATIENT DIAGNOSIS: Ms. Faria is a 57-year-old woman diagnosed with stage III non-small cell lung cancer arising from the left chest who presented with initial compression of the left mainstem bronchus status post placement of pulmonary stent. She was not felt to be a surgical candidate and proceeds to definitive concurrent chemoradiation. PROTOCOL: no COURSE: definitive and concurrent chemotherapy Current dose: 2400 cGy in 12 fx Planned dose: 6000 cGy in 30 fx Status: Patient states there is no possibility she is at this time SUBJECTIVE: Started noticed throat pain and hoarseness over the weekend with increasing cough. She is still able to swallow and eat most foods. She also notes discomfort in the middle of her chest although her posterior pain between her shoulder blades is improved. She feels that her dyspnea on exertion is slightly worse. Her cough is productive for clear phlegm and no hemoptysis. She does note fatigue with stable appetite and hydration. Last 5 Encounter Wt Readings: Date: Wt: 04/12/2023 73.9 kg (163 lb) 04/05/2023 72.6 kg (160 lb) 03/08/2023 73.5 kg (162 lb) PHYSICAL EXAM: Area Assessed: Chest KPS: 90 General Appearance: Alert and oriented. No acute distress. Chest: No respiratory distress. IMAGING/LAB RESULTS: None TOXICITY ASSESSMENT (CTC v4.0): Fatigue: grade 1 - Fatigue relieved by rest Weight loss: grade 0 - No weight loss Nausea:Grade 0 - No Symptoms Radiation Dermatitis:grade 0 - No symptoms Dysphagia: grade 1 - Symptomatic, able to eat regular diet Esophageal Pain: Grade 1 - Mild pain Dyspnea: grade 1 (Shortness of breath with moderate exertion) Treatment chart checked: Yes Patient treatment site reviewed and verified:Yes Port films reviewed and current:Yes Medications started: None ASSESSMENT/PLAN: Clinically stable. Toxicity within expected parameters. Continue radiation treatment as planned. She met with Dr. Rodriguez as she received her chemotherapy and was prescribed Tessalon Perles for her cough and has a prior prescription for Magic mouthwash which she has not started using yet. As throat pain and esophagitis worsen she was encouraged to start using the Magic mouthwash for pain relief and to help with swallowing. She was also encouraged to start using anti-inflammatory in addition to her pain medication. Currently afebrile with no obvious signs of infection but will continue to monitor. Saleem Fitch MD Allergies As of Date: 04/12/2023 (No Known Allergies) Date Reviewed: 04/12/2023 Reviewed by: Nilsa Deal RN - Fully Assessed Reason for Visit: Radiotherapy On-treatment Visit [1722] Primary Visit Diagnosis:Neoplasm of lung [D49.1] Prescriptions as of 04/12/2023 - prochlorperazine (COMPAZINE) 10 mg tablet Take 10 mg by mouth every 8 hours as needed. - iv contrast (will be provided with radiology test) MRI Brain Inject, intravenously, once for 1 dose.No IV access, insert saline lock prior to beginning of sedation, infusion, injection of imaging exam.Discontinue saline lock post exam. If Pt. has a central line or IVAD, may access for administration according to line specific nursing protocol.Once exam is complete flush line and de-access according to line specific nursing protocol in the MR contrast administration guidelines link - albuterol HFA (PROVENTIL HFA, VENTOLIN HFA) 90 mcg/actuation inhaler inhale 2 puffs by mouth and INTO THE LUNGS every 6 hours if neede... (REFER TO PRESCRIPTION NOTES). - aspirin, enteric coated (ASPIRIN, ENTERIC COATED) 81 mg EC tablet Take 81 mg by mouth. - atorvastatin (LIPITOR) 80 mg tablet - isosorbide mononitrate ER (IMDUR) 30 mg 24 hr tablet Take 1 tablet by mouth every afternoon. - metoprolol succinate ER (TOPROL XL) 50 mg 24 hr tablet Take 50 mg by mouth. - nitroglycerin sublingual (NITROQUICK) 0.[address] 1 tablet under the tongue if needed every 5 minutes for shama... (REFER TO PRESCRIPTION NOTES). - Omeprazole Magnesium 20 mg tablet Take 40 mg by mouth. - predniSONE (DELTASONE) 20 mg tablet Take 40 mg by mouth every morning. - BRILINTA 90 mg tablet Take 1 tablet by mouth every 12 hours 6am/6pm. - traMADol (ULTRAM) 50 mg tablet Take 50 mg by mouth every 6 hours as needed. Problem List As Of Date: 04/12/2023 (None) Medications Discontinued During This Encounter Prescriptions - amoxicillin-clavulani (more content not included)... Normal [facility] 04-11-2023 CNPN Telephone (RADTSA) -- JEANMARIE FARIA ([id number]) 1965 F Date Time Provider Department 04/11/23 SALEEM FITCH During your visit today, we recorded the following information about you: Nilsa Deal RN 04/11/2023 12:54 PM Signed LM for pt to CB regarding missed XRT appt. Nilsa Deal RN Allergies As of Date: 04/11/2023 (No Known Allergies) Date Reviewed: 04/05/2023 Reviewed by: Toney Bailon LPN - Fully Assessed Reason for Visit: Missed Appointment [1304] Prescriptions as of 04/11/2023 - prochlorperazine (COMPAZINE) 10 mg tablet Take 10 mg by mouth every 8 hours as needed. - iv contrast (will be provided with radiology test) MRI Brain Inject, intravenously, once for 1 dose.No IV access, insert saline lock prior to beginning of sedation, infusion, injection of imaging exam.Discontinue saline lock post exam. If Pt. has a central line or IVAD, may access for administration according to line specific nursing protocol.Once exam is complete flush line and de-access according to line specific nursing protocol in the MR contrast administration guidelines link - albuterol HFA (PROVENTIL HFA, VENTOLIN HFA) 90 mcg/actuation inhaler inhale 2 puffs by mouth and INTO THE LUNGS every 6 hours if neede... (REFER TO PRESCRIPTION NOTES). - amoxicillin-clavulanic acid (AUGMENTIN) 875-125 mg per tablet TAKE ONE TABLET BY MOUTH IN THE MORNING AND AT BEDTIME - aspirin, enteric coated (ASPIRIN, ENTERIC COATED) 81 mg EC tablet Take 81 mg by mouth. - atorvastatin (LIPITOR) 80 mg tablet - isosorbide mononitrate ER (IMDUR) 30 mg 24 hr tablet Take 1 tablet by mouth every afternoon. - metoprolol succinate ER (TOPROL XL) 50 mg 24 hr tablet Take 50 mg by mouth. - nitroglycerin sublingual (NITROQUICK) 0.[address] 1 tablet under the tongue if needed every 5 minutes for shama... (REFER TO PRESCRIPTION NOTES). - Omeprazole Magnesium 20 mg tablet Take 40 mg by mouth. - predniSONE (DELTASONE) 20 mg tablet Take 40 mg by mouth every morning. - BRILINTA 90 mg tablet Take 1 tablet by mouth every 12 hours 6am/6pm. - traMADol (ULTRAM) 50 mg tablet Take 50 mg by mouth every 6 hours as needed. Problem List As Of Date: 04/11/2023 (None) Encounter Status:Closed by NILSA DEAL on 04/11/[address] [facility] [place] 04-05-2023 CNOV Office Visit (RADTSA ) -- JEANMARIE FARIA ([id number]) 1965 F Date Time Provider Department 04/05/23 12:30 PM SALEEM FITCH During your visit today, we recorded the following information about you: Temperature Pulse Respiration Blood pressure 98 degrees 73/minute 18/minute 116/76 Weight 72.6 kg Toney Bailon LPN 04/05/2023 12:27 PM Signed Status: Post-menopausal. Saleem Fitch MD 04/05/2023 12:49 PM Signed Radiation Oncology - On Treatment Review (OTR) Note PATIENT NAME: Jeanmarie Faria PATIENT DIAGNOSIS: Ms. Faria is a 57-year-old woman diagnosed with stage III non-small cell lung cancer arising from the left chest who presented with initial compression of the left mainstem bronchus status post placement of pulmonary stent. She was not felt to be a surgical candidate and proceeds to definitive concurrent chemoradiation. PROTOCOL: no COURSE: definitive and concurrent chemotherapy Current dose: 1400 cGy in 7 fx Planned dose: 6000 cGy in 30 fx Status: Patient states there is no possibility she is at this time SUBJECTIVE: Tolerating XRT well and breathing well overall but has noted increasing cough especially in the morning with difficulty getting up phlegm. She denies any hemoptysis and notes improvement in her posterior chest discomfort. She still able to eat all consistencies but does need to take smaller bites. She endorses mild fatigue with fair appetite and hydration and supplements with strawberry Ensure. Last 5 Encounter Wt Readings: Date: Wt: 04/05/2023 72.6 kg (160 lb) 03/08/2023 73.5 kg (162 lb) PHYSICAL EXAM: Area Assessed: Chest KPS: 90 General Appearance: Alert and oriented. No acute distress. Chest: No respiratory distress. IMAGING/LAB RESULTS: None TOXICITY ASSESSMENT (CTC v4.0): Fatigue: grade 1 - Fatigue relieved by rest Weight loss: grade 0 - No weight loss Nausea:Grade 0 - No Symptoms Radiation Dermatitis:grade 0 - No symptoms Dysphagia: grade 1 - Symptomatic, able to eat regular diet Esophageal Pain: Grade 1 - Mild pain Dyspnea: grade 1 (Shortness of breath with moderate exertion) Treatment chart checked: Yes Patient treatment site reviewed and verified:Yes Port films reviewed and current:Yes Medications started: None ASSESSMENT/PLAN: Clinically stable. Toxicity within expected parameters. Continue radiation treatment as planned. Discussed adding Mucinex and increasing hydration to help with expectoration. Saleem Fitch MD Allergies As of Date: 04/05/2023 (No Known Allergies) Date Reviewed: 04/05/2023 Reviewed by: Toney Bailon LPN - Fully Assessed Reason for Visit: Radiotherapy On-treatment Visit [1722] Primary Visit Diagnosis:Neoplasm of lung [D49.1] Prescriptions as of 04/05/2023 - prochlorperazine (COMPAZINE) 10 mg tablet Take 10 mg by mouth every 8 hours as needed. - iv contrast (will be provided with radiology test) MRI Brain Inject, intravenously, once for 1 dose.No IV access, insert saline lock prior to beginning of sedation, infusion, injection of imaging exam.Discontinue saline lock post exam. If Pt. has a central line or IVAD, may access for administration according to line specific nursing protocol.Once exam is complete flush line and de-access according to line specific nursing protocol in the MR contrast administration guidelines link - albuterol HFA (PROVENTIL HFA, VENTOLIN HFA) 90 mcg/actuation inhaler inhale 2 puffs by mouth and INTO THE LUNGS every 6 hours if neede... (REFER TO PRESCRIPTION NOTES). - amoxicillin-clavulanic acid (AUGMENTIN) 875-125 mg per tablet TAKE ONE TABLET BY MOUTH IN THE MORNING AND AT BEDTIME - aspirin, enteric coated (ASPIRIN, ENTERIC COATED) 81 mg EC tablet Take 81 mg by mouth. - atorvastatin (LIPITOR) 80 mg tablet - isosorbide mononitrate ER (IMDUR) 30 mg 24 hr tablet Take 1 tablet by mouth every afternoon. - metoprolol succinate ER (TOPROL XL) 50 mg 24 hr tablet Take 50 mg by mouth. - nitroglycerin sublingual (NITROQUICK) 0.[address] 1 tablet under the tongue if needed every 5 minutes for shama... (REFER TO PRESCRIPTION NOTES). - Omeprazole Magnesium 20 mg tablet Take 40 mg by mouth. - predniSONE (DELTASONE) 20 mg tablet Take 40 mg by mouth every morning. - BRILINTA 90 mg tablet Take 1 tablet by mouth every 12 hours 6am/6pm. - traMADol (ULTRAM) 50 mg tablet Take 50 mg by mouth every 6 hours as needed. Problem List As Of Date: 04/05/2023 (None) Visit Notes: >> Toney Bailon LPN MonApr 05, 2023 12:23 PM Status: Signed Status: Post-menopausal. Encounter Status:[facility]RUY[facility] -- JEANMARIE FARIA ([id number]) 1965 F Date Time Provider Department 03/28/23 3:30 PM NURSE KRISTYN REDMOND During your visit today, we recorded the following information about you: Toney Bailon LPN 03/28/2023 3:46 PM Signed Aromatherapy to promote a healing environment. TYPE: container SCENT: citrus blend Aromatherapy education materials were provided and reviewed with the patient. Toney Bailon LPN Allergies As of Date: 03/28/2023 (No Known Allergies) Date Reviewed: 03/28/2023 Reviewed by: Toney Bailon LPN - Fully Assessed Reason for Visit: aromatherapy [Other] Primary Visit Diagnosis:Neoplasm of lung [D49.1] Prescriptions as of 03/28/2023 - prochlorperazine (COMPAZINE) 10 mg tablet Take 10 mg by mouth every 8 hours as needed. - iv contrast (will be provided with radiology test) MRI Brain Inject, intravenously, once for 1 dose.No IV access, insert saline lock prior to beginning of sedation, infusion, injection of imaging exam.Discontinue saline lock post exam. If Pt. has a central line or IVAD, may access for administration according to line specific nursing protocol.Once exam is complete flush line and de-access according to line specific nursing protocol in the MR contrast administration guidelines link - albuterol HFA (PROVENTIL HFA, VENTOLIN HFA) 90 mcg/actuation inhaler inhale 2 puffs by mouth and INTO THE LUNGS every 6 hours if neede... (REFER TO PRESCRIPTION NOTES). - amoxicillin-clavulanic acid (AUGMENTIN) 875-125 mg per tablet TAKE ONE TABLET BY MOUTH IN THE MORNING AND AT BEDTIME - aspirin, enteric coated (ASPIRIN, ENTERIC COATED) 81 mg EC tablet Take 81 mg by mouth. - atorvastatin (LIPITOR) 80 mg tablet - isosorbide mononitrate ER (IMDUR) 30 mg 24 hr tablet Take 1 tablet by mouth every afternoon. - metoprolol succinate ER (TOPROL XL) 50 mg 24 hr tablet Take 50 mg by mouth. - nitroglycerin sublingual (NITROQUICK) 0.[address] 1 tablet under the tongue if needed every 5 minutes for shama... (REFER TO PRESCRIPTION NOTES). - Omeprazole Magnesium 20 mg tablet Take 20 mg by mouth. - predniSONE (DELTASONE) 20 mg tablet Take 40 mg by mouth every morning. - BRILINTA 90 mg tablet Take 1 tablet by mouth every 12 hours 6am/6pm. - traMADol (ULTRAM) 50 mg tablet Take 50 mg by mouth every 6 hours as needed. Problem List As Of Date: 03/28/2023 (None) Visit Notes: >> Toney Bailon LPN Tue Mar 28, 2023 3:45 PM Status: Signed Aromatherapy to promote a healing environment. TYPE: container SCENT: citrus blend Aromatherapy education materials were provided and reviewed with the patient. Toney Bailon LPN Encounter Status:Closed by TONEY BAILON on 03/28/[address] [facility] CNOVon 03-28-2023 CNOV Office Visit (RADTSA ) -- JEANMARIE FARIA ([id number]) 1965 F Date Time Provider Department 03/28/23 2:30 PM SALEEM FITCH During your visit today, we recorded the following information about you: Temperature Pulse Respiration Blood pressure 96.9 degrees 74/minute 18/minute 100/67 Toney Bailon LPN 03/28/2023 2:52 PM Signed Status: Patient states there is no possibility she is at this time. Saleem Fitch MD 04/04/2023 9:59 PM Signed Radiation Oncology - On Treatment Review (OTR) Note PATIENT NAME: Jeanmarie Faria PATIENT DIAGNOSIS: Ms. Faria is a 57-year-old woman diagnosed with stage III non-small cell lung cancer arising from the left chest who presented with initial compression of the left mainstem bronchus status post placement of pulmonary stent. She was not felt to be a surgical candidate and proceeds to definitive concurrent chemoradiation. PROTOCOL: no COURSE: definitive and concurrent chemotherapy Current dose: 200 cGy in 1 fx Planned dose: 6000 cGy in 30 fx Status: Patient states there is no possibility she is at this time SUBJECTIVE: Tolerated first fraction of XRT well and reports no significant changes from the time of simulation. She continues to note breathing well with the placement of her stent with mild cough mostly in the mornings. She does have mucus production but denies hemoptysis and still does note pain between her shoulder blades which is improved. She endorses fatigue with decreased appetite and fair hydration. PHYSICAL EXAM: Area Assessed: Chest KPS: 90 General Appearance: Alert and oriented. No acute distress. Chest: No respiratory distress. IMAGING/LAB RESULTS: None TOXICITY ASSESSMENT (CTC v4.0): Fatigue: grade 1 - Fatigue relieved by rest Weight loss: grade 0 - No weight loss Nausea:Grade 0 - No Symptoms Radiation Dermatitis:grade 0 - No symptoms Dysphagia: grade 0 - No symptoms Esophageal Pain: Grade 0 - No symptoms Dyspnea: grade 1 (Shortness of breath with moderate exertion) Treatment chart checked: Yes Patient treatment site reviewed and verified:Yes Port films reviewed and current:Yes Medications started: None ASSESSMENT/PLAN: Clinically stable. No signs of toxicity. Continue radiation treatment as planned. We reviewed general precautions/instructions during radiation treatment to the chest as well as the potential acute toxicities during treatment and their time course. Discussed the importance of a well-balanced diet, hydration, and exercise/activity as tolerated through the course of treatment. Saleem Fitch MD Referring Provider: SALEEM FITCH [[id number]] Allergies As of Date: 03/28/2023 (No Known Allergies) Date Reviewed: 03/28/2023 Reviewed by: Toney Bailon LPN - Fully Assessed Reason for Visit: Radiotherapy On-treatment Visit [1722] Primary Visit Diagnosis:Malignant neoplasm of left lung, unspecified part of lung (HCC) [C34.92] Prescriptions as of 04/04/2023 - prochlorperazine (COMPAZINE) 10 mg tablet Take 10 mg by mouth every 8 hours as needed. - iv contrast (will be provided with radiology test) MRI Brain Inject, intravenously, once for 1 dose.No IV access, insert saline lock prior to beginning of sedation, infusion, injection of imaging exam.Discontinue saline lock post exam. If Pt. has a central line or IVAD, may access for administration according to line specific nursing protocol.Once exam is complete flush line and de-access according to line specific nursing protocol in the MR contrast administration guidelines link - albuterol HFA (PROVENTIL HFA, VENTOLIN HFA) 90 mcg/actuation inhaler inhale 2 puffs by mouth and INTO THE LUNGS every 6 hours if neede... (REFER TO PRESCRIPTION NOTES). - amoxicillin-clavulanic acid (AUGMENTIN) 875-125 mg per tablet TAKE ONE TABLET BY MOUTH IN THE MORNING AND AT BEDTIME - aspirin, enteric coated (ASPIRIN, ENTERIC COATED) 81 mg EC tablet Take 81 mg by mouth. - atorvastatin (LIPITOR) 80 mg tablet - isosorbide mononitrate ER (IMDUR) 30 mg 24 hr tablet Take 1 tablet by mouth every afternoon. - metoprolol succinate ER (TOPROL XL) 50 mg 24 hr tablet Take 50 mg by mouth. - nitroglycerin sublingual (NITROQUICK) 0.[address] 1 tablet under the tongue if needed every 5 minutes for shama... (REFER TO PRESCRIPTION NOTES). - Omeprazole Magnesium 20 mg tablet Take 20 mg by mouth. - predniSONE (DELTASONE) 20 mg tablet Take 40 mg by mouth every morning. - BRILINTA 90 mg tablet Take 1 tablet by mouth every 12 hours 6am/6pm. - traMADol (ULTRAM) 50 mg tablet Take 50 mg by mouth every 6 hours as needed. Problem List As Of Date: 03/28/2023 (None) Visit Notes: >> Toney Bailon LPN Tue Mar 28, 2023 2:47 PM Status: Signed Status: Patient states there is no possibility she is at this time. En (more content not included)... Normal [facility] JEANMARIE FARIA ([id number]) 1965 F Date Time Provider Department 03/23/23 SALEEM FITCH During your visit today, we recorded the following information about you: Toney Bailon LPN 03/23/2023 2:43 PM Signed I notified Jeanmarie of her upcoming new start appointment. She is scheduled for 03/28/23 at 2:30. Patient is in agreement with this appt. Toney Bailon LPN Allergies As of Date: 03/23/2023 (No Known Allergies) Date Reviewed: 03/08/2023 Reviewed by: Toney Bailon LPN - Fully Assessed Reason for Visit: Appointment [186] Prescriptions as of 03/23/2023 - HYDROcodone-acetaminophen (HYCET) 7.5-325 mg/15 mL oral liquid Take 5 mL by mouth every 8 hours as needed for pain for up to 7 days. May alternate with Tylenol/Motrin. - iv contrast (will be provided with radiology test) MRI Brain Inject, intravenously, once for 1 dose.No IV access, insert saline lock prior to beginning of sedation, infusion, injection of imaging exam.Discontinue saline lock post exam. If Pt. has a central line or IVAD, may access for administration according to line specific nursing protocol.Once exam is complete flush line and de-access according to line specific nursing protocol in the MR contrast administration guidelines link - albuterol HFA (PROVENTIL HFA, VENTOLIN HFA) 90 mcg/actuation inhaler inhale 2 puffs by mouth and INTO THE LUNGS every 6 hours if neede... (REFER TO PRESCRIPTION NOTES). - amoxicillin-clavulanic acid (AUGMENTIN) 875-125 mg per tablet TAKE ONE TABLET BY MOUTH IN THE MORNING AND AT BEDTIME - aspirin, enteric coated (ASPIRIN, ENTERIC COATED) 81 mg EC tablet Take 81 mg by mouth. - atorvastatin (LIPITOR) 80 mg tablet - isosorbide mononitrate ER (IMDUR) 30 mg 24 hr tablet Take 1 tablet by mouth every afternoon. - metoprolol succinate ER (TOPROL XL) 50 mg 24 hr tablet Take 50 mg by mouth. - nitroglycerin sublingual (NITROQUICK) 0.[address] 1 tablet under the tongue if needed every 5 minutes for shama... (REFER TO PRESCRIPTION NOTES). - Omeprazole Magnesium 20 mg tablet Take 20 mg by mouth. - predniSONE (DELTASONE) 20 mg tablet Take 40 mg by mouth every morning. - BRILINTA 90 mg tablet Take 1 tablet by mouth every 12 hours 6am/6pm. - traMADol (ULTRAM) 50 mg tablet Take 50 mg by mouth every 6 hours as needed. Problem List As Of Date: 03/23/2023 (None) Encounter Status:Closed by TONEY BAILON on 03/23/[address] [facility] CNOVon 03-17-2023 CNOV Office Visit (RADTSA ) -- JEANMARIE FARIA ([id number]) 1965 F Date Time Provider Department 03/17/23 12:00 PM SALEEM FITCH During your visit today, we recorded the following information about you: Saleem Fitch MD 03/29/2023 4:58 AM Addendum Radiation Oncology - Follow Up Note PATIENT NAME: Jeanmarie Faria PATIENT DIAGNOSIS/PATIENT IDENTIFICATION: Ms. 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 Foss and has met with Dr. Rodriguez in medical oncology. She was referred to the radiation medicine clinic to have a discussion regarding the role of radiation therapy in the treatment of her lung cancer. After her visit and discussion with Dr. Rodriguez and Dr. Foss, decision was made to move forward with pulmonary stent placement for immediate relief and allow adequate time for staging work-up. Ms. Faria returns to clinic today for follow-up as previously discussed during consultation on 03/08/2023. In the interim, she underwent successful placement of pulmonary stent by Dr. Foss on 03/10/2023. She then had PET/CT on 03/15/2023 which confirmed hypermetabolic lymphadenopathy involving the right hilum and left mediastinum with a few small non-hypermetabolic pulmonary nodules. Also noted was hypermetabolic lymph nodes in the left supraclavicular region consistent with metastatic disease. No other definite areas of regional or distant disease were identified. She is still scheduled for an MRI of the brain to complete her staging work-up. Today the patient reports breathing much better since the placement of her stent with improvement in her cough but still has persistent discomfort between her shoulder blades. I discussed the results with Dr. Rodriguez and we will plan to move forward with definitive concurrent chemoradiation. We again briefly reviewed the rationale, logistics, and toxicity of radiation therapy to the chest and left neck in this definitive setting including esophagitis. After all of her questions were answered, informed consent was obtained. She will proceed to CT simulation following this visit to begin treatment planning and I anticipate starting radiation shortly in coordination with Dr. Rodriguez/chemotherapy. Thank you for allowing us to participate in the care of this patient. RADIOLOGIC DATA: PET/CT (03/15/2023) IMPRESSION: HEAD/NECK: * Clustered left supraclavicular hypermetabolic lymph nodes, probably metastatic CHEST: * Hypermetabolic lymphadenopathy involving the right hilum and left mediastinal region, probably metastatic. * Few small nonhypermetabolic pulmonary nodules. ABDOMEN/PELVIS: * No FDG avid neoplastic process. BONES/EXTREMITIES: * No suspicious FDG avid osseous lesion. HEAD AND NECK: Physiologic uptake in the visualized brain, extraocular muscles, parapharyngeal soft tissues, base of tongue, salivary glands, and vocal cords. Head AND Neck: Symmetric physiologic parenchymal activity without a focal tracer avid lesion. Lymph nodes: Multiple clustered level left supraclavicular subcentimeter hypermetabolic nodes (Max SUV:6.0; image 4:68). Thyroid: No tracer avid lesion. CHEST: Devices: Right subcutaneous port with tip terminating in the right atrium. Lungs AND Airways: No tracer avid consolidation, mass, or nodule. A few nonhypermetabolic pulmonary nodules are present, for example: 8 mm left upper lobe nodule (4:79), and 3 mm right middle lobe nodule (4:133) * Please note, PET/CT is not sensitive for pulmonary nodules less than than 8 mm. Pleura: No tracer avid lesion. No pleural effusion. Mediastinum: No tracer avid mass. Lymph Nodes: Multiple hypermetabolic lymph nodes includin.7 cm right hilar (Max SUV:10.7; image 4:106) and a subcentimeter right hilar (Max SUV:4.9; image 4:114). Focal Hypermetabolism measuring about 2.9 x 2.3 cm adjacent to the proximal aortic arch may represent hypermetabolic left paratracheal/para-aortic lymph node conglomerate (Max SUV:6.9; image 4:95). Cardiovascular: Physiologic blood pool and myocardial activity. Atherosclerotic calcification without thoracic aortic aneurysm. Triple vessel coronary artery calcifications. Chest Wall: No tracer avid lesion. Signed by: Saleem Fitch MD I spent a total of 15 minutes on the date of the service which included preparing to see the patient, [id number] patient care, counseling and educating the patient/family/caregiver, and communicating results to the patient/family/caregiver. This document has been created with the use of voice recognition technology. It may contai (more content not included)... Normal [facility] PET/CT SKULL-THIGH INITon 03-15-2023 MI PET/CT SKULL-THIGH INIT * * *Final Report* * * DATE OF EXAM: Mar 15 2023 11:07AM NRN [id number] - MI PET/CT SKULL-THIGH INIT / PROCEDURE REASON: Neoplasm of lung * * * * Physician Interpretation * * * * RESULT: EXAM: MI PET/CT SKULL-THIGH INIT HISTORY: 57 years old Female with lung cancer INDICATION: Subsequent treatment strategy TECHNIQUE: 10.6 mCi of F18-FDG administered IV followed about 60 minutes later by PET imaging from skull base to proximal thighs. Free breathing low dose CT was performed without contrast for attenuation correction and anatomic localization. - Blood glucose before FDG injection: 123 mg/dL CT Dose-Length Product (DLP): 262 mGy*cm CT Dose Reduction Employed: Automated exposure control (AEC) COMPARISON: No previous FDG PET/CT available CORRELATION: CTA chest 02/19/2023 RESULTS: REFERENCES: SUV reference values: - Mediastinal blood pool activity (max SUV): 2.1 - Background liver activity (max SUV): 2.8 Blast Setter (topogram) images: No additional findings. HEAD AND NECK: Physiologic uptake in the visualized brain, extraocular muscles, parapharyngeal soft tissues, base of tongue, salivary glands, and vocal cords. Head and Neck: Symmetric physiologic parenchymal activity without a focal tracer avid lesion. Lymph nodes: Multiple clustered level left supraclavicular subcentimeter hypermetabolic nodes (Max SUV:6.0; image 4:68). Thyroid: No tracer avid lesion. CHEST: Devices: Right subcutaneous port with tip terminating in the right atrium. Lungs and Airways: No tracer avid consolidation, mass, or nodule. A few nonhypermetabolic pulmonary nodules are present, for example: 8 mm left upper lobe nodule (4:79), and 3 mm right middle lobe nodule (4:133) * Please note, PET/CT is not sensitive for pulmonary nodules less than than 8 mm. Pleura: No tracer avid lesion. No pleural effusion. Mediastinum: No tracer avid mass. Lymph Nodes: Multiple hypermetabolic lymph nodes includin.7 cm right hilar (Max SUV:10.7; image 4:106) and a subcentimeter right hilar (Max SUV:4.9; image 4:114). Focal Hypermetabolism measuring about 2.9 x 2.3 cm adjacent to the proximal aortic arch may represent hypermetabolic left paratracheal/para-aortic lymph node conglomerate (Max SUV:6.9; image 4:95). Cardiovascular: Physiologic blood pool and myocardial activity. Atherosclerotic calcification without thoracic aortic aneurysm. Triple vessel coronary artery calcifications. Chest Wall: No tracer avid lesion. ABDOMEN AND PELVIS: Physiologic activity in the GI and tracts. Liver: No tracer avid lesion. Biliary: Unremarkable gallbladder. Spleen: No tracer avid lesion. No splenomegaly. Pancreas: No tracer avid lesion. Adrenals: No tracer avid lesion. Kidneys: No focal tracer avid lesion. No hydronephrosis or calculi. Non-tracer avid cysts. GI Tract: No focal tracer avid lesion. No dilated bowel. Lymph Nodes: No tracer avid lymph nodes. Mesentery/Peritoneum: No tracer avid lesion. No ascites. Retroperitoneum: No tracer avid lesion. Vasculature: Atherosclerotic calcifications without an abdominal aortic aneurysm. Pelvis: No tracer avid lesion. Abdominal Wall: No tracer avid lesion. BONES AND EXTREMITIES: No tracer avid lesion or suspicious osseous lesion. Multifocal degenerative osseous changes. IMPRESSION: HEAD/NECK: * Clustered left supraclavicular hypermetabolic lymph nodes, probably metastatic CHEST: * Hypermetabolic lymphadenopathy involving the right hilum and left mediastinal region, probably metastatic. * Few small nonhypermetabolic pulmonary nodules. ABDOMEN/PELVIS: * No FDG avid neoplastic process. BONES/EXTREMITIES: * No suspicious FDG avid osseous lesion. Transcribe Date/Time: Mar 15 2023 11:31A Dictated by: SAL AGUILAR MD This examination was interpreted and the report reviewed and electronically signed by: YAZAN SCHWARTZ MD on Mar 15 2023 3:31PM EST Thank you for allowing us to participate in the care of your patient. Should there be any questions regarding this interpretation, please call [phone]. If you are unable to reach us at the number above, please feel free to contact [facility] eRadiology at [phone]. [id number] Normal [facility] CNPJossy 03-14-2023 CNPN Telephone (ZANAMN) -- JEANMARIE FARIA ([id number]) 1965 F Date Time Provider Department 03/14/23 STAN GARCIA During your visit today, we recorded the following information about you: Alber Fernandez 03/14/2023 2:32 PM Signed Received Hem/Onc consult notes 03/07/23 from [facility] Record scanned in [facility] pernell Constantino Cassandra 03/27/2023 11:23 AM Signed Received Hem/Onc office notes 03/21/23 from [facility] Record scanned in [facility] Alber Fernandez defense travel administratorAlber Mcdonald 03/28/2023 1:06 PM Signed Received Hem/Onc office notes 03/28/23 from [facility] Record scanned in [facility] Alber Fernandez defense travel administratorAlber Mcdonald 04/18/2023 3:47 PM Signed Received Hem/Onc office notes 04/11/23 from [facility] Record scanned in [facility] pernell Constantino Cassandra 04/21/2023 9:33 AM Signed Received OSH Hem/Onc office notes 04/18/23 from [facility] Record scanned in [facility] pernell Constantino Rebecca, RN 04/21/2023 11:25 AM Addendum noted no surgery apart of plan. BURTON Herrera Cassandra 08/22/2023 9:39 AM Signed Received Hem/Onc office notes 08/15/23 from [facility] Record scanned in [facility] Alber Fernandez defense travel administrator Allergies As of Date: 03/14/2023 (No Known Allergies) Date Reviewed: 03/08/2023 Reviewed by: Toney Bailon LPN - Fully Assessed Reason for Visit: Received Outside Medical Records [[id number]] Prescriptions as of 08/22/2023 - buPROPion XL (WELLBUTRIN XL) 150 mg 24 hr tablet Take 150 mg by mouth every morning. - dilTIAZem CD (CARDIZEM CD, CARTIA XT) 240 mg 24 hr capsule Take 1 capsule by mouth every afternoon. - gabapentin (NEURONTIN) 300 mg capsule - ipratropium-albuterol (DUONEB) 0.5 mg-3 mg(2.5 mg base)/3 mL nebu 3mL Inhalation Q4H for 30 days - sodium chloride 0.9 % nebulizer solution 3mL Inhalation TID for 30 days - prochlorperazine (COMPAZINE) 10 mg tablet Take 10 mg by mouth every 8 hours as needed. - iv contrast (will be provided with radiology test) MRI Brain Inject, intravenously, once for 1 dose.No IV access, insert saline lock prior to beginning of sedation, infusion, injection of imaging exam.Discontinue saline lock post exam. If Pt. has a central line or IVAD, may access for administration according to line specific nursing protocol.Once exam is complete flush line and de-access according to line specific nursing protocol in the MR contrast administration guidelines link - albuterol HFA (PROVENTIL HFA, VENTOLIN HFA) 90 mcg/actuation inhaler inhale 2 puffs by mouth and INTO THE LUNGS every 6 hours if neede... (REFER TO PRESCRIPTION NOTES). - aspirin, enteric coated (ASPIRIN, ENTERIC COATED) 81 mg EC tablet Take 81 mg by mouth. - atorvastatin (LIPITOR) 80 mg tablet - isosorbide mononitrate ER (IMDUR) 30 mg 24 hr tablet Take 1 tablet by mouth every afternoon. - metoprolol succinate ER (TOPROL XL) 100 mg Take 50 mg by mouth. - nitroglycerin sublingual (NITROQUICK) 0.[address] 1 tablet under the tongue if needed every 5 minutes for shama... (REFER TO PRESCRIPTION NOTES). - Omeprazole Magnesium 20 mg tablet Take 40 mg by mouth. - predniSONE (DELTASONE) 20 mg tablet Take 40 mg by mouth every morning. - BRILINTA 90 mg tablet Take 1 tablet by mouth every 12 hours 6am/6pm. - traMADol (ULTRAM) 50 mg tablet Take 50 mg by mouth every 6 hours as needed. Problem List As Of Date: 03/14/2023 (None) Encounter Status:Closed by ALBER FERNANDEZ on 03/14/[address] [facility] Candido 03-13-2023 ERIK Telephone (RADTSA) -- JEANMARIE FARIA ([id number]) 1965 F Date Time Provider Department 03/13/23 SALEEM FITCH During your visit today, we recorded the following information about you: Nilsa Deal RN 03/13/2023 3:43 PM Signed ----- Message from Saleem Fitch MD sent at 03/13/2023 3:35 PM EDT ----- Regarding: RE: Thoracic Surgery ? Gerardo Cruz, I don't believe she is a candidate for resection either. I was waiting for stent placement and PET/MRI to complete staging workup. I have her scheduled to come in Monday to review results and make plans for chemo-RT. Thanks! Saleem ----- Message ----- From: Nancy Beach RN Sent: 03/13/2023 1:16 PM EDT To: Saleem Fitch MD; Nancy Beach RN Subject: Thoracic Surgery ? Hello Dr Fitch, reaching out as we received a referral from Dr Rodriguez related to this patient, per dr Garcia unresectable, is this your opinion as well? Does she need to come to [facility] for anything? Pt notes she had a stent placed 03/10 and PET planned for 03/15 Thanks for any insight Nancy Beach MSN, RN Nurse Legal Project Manager Thoracic Surgery [facility] Nilsa Deal RN 03/13/2023 3:44 PM Signed Call placed to pt and LM Requesting CB to find out if MRI Brain has been scheduled. We are also to find out how her breathing is doing post stent placement. CB requested. BURTON Carey Angela, BURTON 03/15/2023 11:22 AM Signed Pt returned call. She stated her breathing has improved tremendously. She has not heard yet about her MRI. She is hoping this can be scheduled locally. Pino- can you check with ordering Dr's office to see when they will be setting this up? BURTON Carey Tiffany 03/15/2023 11:29 AM Signed Does not look like anything was done with patients MRI I can get her scheduled at [facility] looks like she normally goes there, I tried to call her to ask, looks like her insurance may require auth also Abdulkadir LandaverdePino 03/15/2023 12:58 PM Signed Called [facility] they are calling patient today to schedule appt for this week she said. Toney Bailon LPN 03/21/2023 2:25 PM Signed I called [facility] scheduling dept for an update on the MRI appt. And was told they have received authorization and left a message for the patient to call to schedule. Thanks BRADY Stewart Angela, RN 03/23/2023 12:07 PM Signed Can you please follow up to see if this has been scheduled? BURTON CareyShortyPino 03/23/2023 1:29 PM Signed Patient had done today at 11:00Am Nilsa Deal RN 03/23/2023 2:19 PM Signed Freda- please get report and images for Dr Fitch once available. Thank you BURTON Carey Jennifer L 03/24/2023 8:48 AM Signed Report is scanned and images are uploaded. Allergies As of Date: 03/13/2023 (No Known Allergies) Date Reviewed: 03/08/2023 Reviewed by: Toney Bailon LPN - Fully Assessed Reason for Visit: Patient Update [1234] Prescriptions as of 03/24/2023 - HYDROcodone-acetaminophen (HYCET) 7.5-325 mg/15 mL oral liquid Take 5 mL by mouth every 8 hours as needed for pain for up to 7 days. May alternate with Tylenol/Motrin. - iv contrast (will be provided with radiology test) MRI Brain Inject, intravenously, once for 1 dose.No IV access, insert saline lock prior to beginning of sedation, infusion, injection of imaging exam.Discontinue saline lock post exam. If Pt. has a central line or IVAD, may access for administration according to line specific nursing protocol.Once exam is complete flush line and de-access according to line specific nursing protocol in the MR contrast administration guidelines link - albuterol HFA (PROVENTIL HFA, VENTOLIN HFA) 90 mcg/actuation inhaler inhale 2 puffs by mouth and INTO THE LUNGS every 6 hours if neede... (REFER TO PRESCRIPTION NOTES). - amoxicillin-clavulanic acid (AUGMENTIN) 875-125 mg per tablet TAKE ONE TABLET BY MOUTH IN THE MORNING AND AT BEDTIME - aspirin, enteric coated (ASPIRIN, ENTERIC COATED) 81 mg EC tablet Take 81 mg by mouth. - atorvastatin (LIPITOR) 80 mg tablet - isosorbide mononitrate ER (IMDUR) 30 mg 24 hr tablet Take 1 tablet by mouth every afternoon. - metoprolol succinate ER (TOPROL XL) 50 mg 24 hr tablet Take 50 mg by mouth. - nitroglycerin sublingual (NITROQUICK) 0.[address] 1 tablet under the tongue if needed every 5 minutes for shama... (REFER TO PRESCRIPTION NOTES). - Omeprazole Magnesium 20 mg tablet Take 20 mg by mouth. - predniSONE (DELTASONE) 20 mg tablet Take 40 mg by mouth every morning. - BRILINTA 90 mg tablet Take 1 tablet by mouth every 12 hours 6am/6pm. - traMADol (ULTRAM) 50 mg tablet Take 50 mg by mouth every 6 hours as needed. Problem List As Of Date: 03/13/2023 (None) Encounter Status:Closed by NILSA DEAL on 03/24/23 [facility] 03-10-2023 ------ -- Attestation signed by Betito Foss MD at 03/10/2023 10:58 AM Re-explained the procedure to the patient along with the associated risk of pneumothorax, bleeding, hypoxia, and respiratory failure. Patient is agreeable and will proceed with the scheduled rigid bronchoscopy, tumor debulking, and stent Betito Foss MD Interventional Pulmonary Medicine Pulmonary and Critical Care Medicine [facility] -- History Of Present Illness Jeanmarie Faria is a 57 y.o. 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 Most recent CT scan showing narrowing of the main stem. On previous bronchoscopy, mass was causing near complete occulusion of the left main. Past Medical History She has a past medical history of COPD (chronic obstructive pulmonary disease) (CMS/HCC), Coronary artery disease, Diverticulosis, GERD (gastroesophageal reflux disease), History of transfusion, Hyperlipidemia, Hypertension, Irritable bowel syndrome, Mediastinal mass, Myocardial infarction (CMS/HCC) (11/2021), and Spastic colon. Surgical History She has a past surgical history that includes Coronary stent placement; Cardiac catheterization; Appendectomy; Hysterectomy; Hernia repair; Exploratory laparotomy; and Breast biopsy (Bilateral). Social History She reports that she has been smoking cigarettes. She has been smoking an average of .5 packs per day. She has never used smokeless tobacco. She reports that she does not currently use alcohol. She reports that she does not currently use drugs. Family History Family History Problem Relation Name Age of Onset Heart failure Mother Diabetes Mother Other ([place]) Mother Hypertension Mother Allergies Patient has no known allergies. Medications (Not in a hospital admission) Review of Systems CONSTITUTIONAL: no weight loss, no fever, no chills HEENT: no vision changes, no ear pain, no runny nose, no sore throat RESPIRATORY: no dyspnea, no cough, no wheeze, no sputum production CV: no chest pain, no palpitations, no syncope GI: no abdominal pain, no nausea, no vomiting, no diarrhea. MSK: no myalgia, no joint pain. SKIN: no rash, no pruritus. NEUROLOGICAL: no weakness, no paresthesias PSYCHIATRIC: No mood changes. No anxiety, no depression. Last Recorded Vitals Visit Vitals BP 120/80 Pulse 84 Temp 36.1 ???C (97 ???F) (Temporal) Resp 20 Ht 1.626 m (5' 4 ) Wt 72.5 kg (159 lb 13.3 oz) SpO2 93% BMI 27.44 kg/m??? OB Status Hysterectomy Smoking Status Every Day BSA 1.81 m??? Physical Exam General: No acute distress HEENT: Normocephalic, atraumatic, EOMI, no scleral icterus or erythema Neck: Supple, trachea midline, no masses noted Cardiovascular: Regular rate and rhythm, normal S1-S2, no murmurs, no rubs, no peripheral edema Respiratory: No acute respiratory distress, clear to auscultation bilaterally, no wheezing, no rales Abdomen: Soft, nontender, nondistended, positive bowel sounds Extremities: No cyanosis, no edema Neuro: No focal deficits Skin: Warm, dry, no rashes Relevant Lab Results No results found for: NA, K, CL, CO2, BUN, CREATININE, GLUCOSE, CALCIUM, ANIONGAP, EGFR, BCR Relevant Imaging Results XR chest 1 view Narrative: XR CHEST 1 VIEW 03/03/2023 4:36 PM CLINICAL INDICATIONS: Hypoxia COMPARISON: None FINDINGS: Cardiomediastinum within normal limits. No infiltrate, effusion, or pneumothorax Impression: No acute pathology Electronically signed: Lolly [place]. Bronchoscopy EBUS with 3 or more stations Images from the original result were not included. Interventional Pulmonary Medicine Procedure Type: Bronchoscopy, EBUS guided TBNA, endobronchial biopsy Date of procedure: 03/03/2023 Indication: Mediastinal adenopathy/mass concerning for lung cancer Attending: Betito Foss MD Fellow(s): Sapphire JERRY Consent/timeout: Obtained/performed Anesthesia: General Description of the procedure: Procedure was done in the OR. Airway maintained with LMA tube. The bronchoscope was passed via the LMA tube. Lidocaine 1% 5 cc were applied to the vocal cords. The bronchoscope advanced to the tracheobronchial tree. The proximal trachea is normal. In the distal portion of the trachea on the left lateral side there is a large endobronchial lesion. The mass extends extends to the left main bronchus involving at least the proximal two thirds. The mass is causing near complete occlusion of the left main. The right-sided airways are normal. The EBUS scope was then introduced. Station 11 R was about 18 mm. No biopsies taken Distal tracheal mass/4L was more than 3 cm. EBUS guided TBNA using a (more content not included)... [facility] NURSNOTEon 03-10-2023 NURSNOTE Reviewed instruction s with patient and sister, copy given. Stable for ME home. Normal [facility] POCT GLUCOSE METER UNSOLICIT ED RESULTSon 03-10-2023 Glucose [Mass/Vol] 113 mg/dL High 70-105 [facility] Comment on above: Order Comment: Waive d Testing in the ED is performed under the ED CLIA certificate #[id number]. Result Comment: aepp ink Performed By: #### L [id number] ####[facility] ([facility])[address] [place] [address] CNOVon 03-08-2023 CNOV Office Visit (RADTSA ) -- JEANMARIE FARIA ([id number]) 1965 F Date Time Provider Department 03/08/23 10:00 AM SALEEM FITCH During your visit today, we recorded the following information about you: Temperature Pulse Respiration Blood pressure 98.1 degrees 76/minute 18/minute 144/96 Weight Height 73.5 kg 1.613 m Saleem Fitch MD 03/21/2023 11:27 PM Signed Radiation Oncology - New Patient/Consult Note PATIENT NAME: Jeanmarie Faria PATIENT REQUESTING PHYSICIAN: Archana Rodriguez MD DIAGNOSIS: Locally advanced non-small lung cancer (staging pending) PATIENT IDENTIFICATION: This patient was seen in the Department of Radiation Oncology at the [facility] with Saleem Fitch MD. Final recommendations will be communicated back to the requesting physician by way of the shared medical record, or letter to requesting physician via US mail. HISTORY OF PRESENT ILLNESS: Ms. Faria is a 57-year-old woman in [place], [place] who was found to have a mediastinal mass on CT examination of the chest from 02/19/2023 when she was admitted at the hospital with acute respiratory failure with hypoxia and COPD exacerbation as well as midsternal pleuritic chest pain radiating to her back. The mediastinal mass was noted to compress the airway at the level of the landry/left mainstem bronchus. She was discharged home on steroids as well as broad-spectrum antibiotics, inhaled bronchodilators and 2 L oxygen. She then met with Dr. Rodriguez medical oncology at [facility] and referred to still operator brandy Dr. Foss as an outpatient. 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 She is referred today to the radiation medicine clinic to have a discussion regarding the role of radiation therapy in the treatment of her lung cancer including potential rapid/palliative intervention for alleviation of her airway compression with plans to complete staging work-up with PET/CT as well as MRI of the brain. INTERVAL/HISTORY/REVIEW OF SYSTEMS: Ms. Faria continues to have shortness of breath including at rest and uses a rescue/albuterol inhaler but is not using supplemental oxygen. She does not feel it has been substantial improvement in her breathing since admission. She feels that her coughing is also worse which she denies any hemoptysis or difficulty swallowing. She continues to note discomfort in her chest radiating towards her back/shoulder is worse with breathing. She denies any recent unexplained weight loss. Reports have been diagnosed with COPD over the past year and having had an AK approximately a year ago. She does note a headache as well as dizziness/lightheadedness but otherwise denies any recent fevers/chills, changes in weight/appetite, difficulty with speech/swallowing, abdominal pain, nausea/vomiting, change in bowel/urinary function, difficulty with gait/balance. The remainder of the review of systems was performed and was otherwise non-contributory except as described above. PAST MEDICAL HISTORY: PAST MEDICAL HISTORY Diagnosis Date COPD (chronic obstructive pulmonary disease) (HCC) Heart attack (HCC) HTN (hypertension) Hypercholesteremia PAST SURGICAL HISTORY: PAST SURGICAL HISTORY Procedure Laterality Date APPENDECTOMY HERNIA REPAIR HX HYSTERECTOMY HX PAST SURGICAL HISTORY OF cardiac stent placement x 3 stents FAMILY HISTORY: History reviewed. No pertinent family history. SOCIAL HISTORY: Ms. Faria is and lives in the [place], [place] area. 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 She notes an approximate [id number] history of smoking and has reduced down to approximately half a pack per day. Denies any alcohol use. RADIATION HISTORY: The patient denies any history of therapeutic radiation. ALLERGIES: ALLERGIES No Known Allergies MEDICATIONS: Current Outpatient Medications: albuterol HFA (PROVENTIL HFA, VENTOLIN HFA) 90 mcg/actuation inhaler amoxicillin-clavulanic acid (AUGMENTIN) 875-125 mg per tablet aspirin, enteric coated (ASPIRIN, ENTERIC COATED) 81 mg EC tablet atorvastatin (LIPITOR) 80 mg tablet isosorbide mononitrate ER (IMDUR) 30 mg 24 hr tablet metoprolol succinate ER (TOPROL XL) 50 mg 24 hr tablet nitroglycerin sublingual (NITROQUICK) 0.4 mg SL tablet Omeprazole Magnesium 20 mg tablet predniSONE (DELTASONE) 20 mg tablet BRILINTA 90 mg tablet traMADol (ULTRAM) 50 mg tablet HYDROcodone-acetaminophen (HYCET) 7.5-325 mg/15 mL oral liquid iv contrast (will be provided with radiology test) PHYSICAL EXAMINATION: GENERAL: middle-aged woman sitting in chair, in no acute distress. VITALS: BP 144/96 Pulse 76 Temp 98.1 Resp 18 Ht 5' 3.5 (1.61m) Wt 162 lb (more content not included)... Normal [facility] -- JEANMARIE FARIA ([id number]) 1965 F Date Time Provider Department 03/08/23 STAN GARCIA During your visit today, we recorded the following information about you: Alber Jim 03/09/2023 3:28 PM Addendum LOCAL PATIENT Received Fax from Dr. Archana Noriega Giana is being referred to Stan Garcia M.D., Ph. D. Or Lamonte Guerra by Dr. Archana Rodriguez [address] [place] [id number] Patient diagnosis/Reason for consult: Lung Cancer Referral triage process explained: No Patient will receive a call from Thoracic NPM after triage review with surgeon to discuss any additional testing and/or consults that will be scheduled. Pt will then receive a call from our scheduling office for scheduling. Please call pt at [phone]. Patient was informed consultation could be at [place] or [facility] [place]: No Patient Registration: Registration complete/updated: yes Insurance card(s) scanned in [facility] with in the past year: Yes: Date: 03/08/23 Pt's MyChart is Pending. Ok to communicate to pt via [employer] not asked Medical Records: Records in [facility] (internal CC records): Yes Imaging in [facility] (internal CC records): Yes Care Everywhere - queried yes, downloaded Yes Linked Outside Organizations (list): [facility]; [facility]; [facility] OS Records Requested: No Date: N/A Outside Hospital(s) requested records from: n/a Received: yes Uploaded: Yes. Waiting on additional records: No. Missing (list): N/A OSH Pathology Slides Requested: no Date: N/A Outside Hospital(s) slides requested from: n/a OS Radiology Imaging Requested: yes Date: March 08, 2023 Outside Hospital(s) requested imaging from: [facility]. Imaging will be received via Electronic Transfer Received: Yes Imaging uploaded: Yes Waiting on additional: No Missing (list): n/a Additional providers added to Care Teams: Yes Additional Notes/Comments: n/a Enct routed to: Zana Louis NPM for Triage Alber Fernandez, defense travel administrator Nancy [place], [place] 03/10/2023 3:31 PM Addendum Thoracic Surgery Consultation - review of records for appointment scheduling Received medical records from the office of Archana Rodriguez [address] [id number] Patient is being referred to Stan Garcia MD, PhD by Archana Rodriguez for Lung Cancer Outside hospital records scanned / Care Everywhere Pathology: Final Diagnosis A. Tracheal mass, EBUS-guided fine needle aspiration: - Most consistent with squamous cell carcinoma (see microscopic description and comment). Comment Immunohistochemistry with controls performed. Lesional cells positive for CK5/6. Focal weak positivity with p63 is identified. In a background of abundant necrosis scantly to moderately cellular are scattered malignant tumor cell clusters and single malignant cells identified. Contact molecular pathology for requests for ancillary molecular testing. Procedures: 03/10/[address] Procedure was done in the OR. The patient was successfully intubated with a 14 mm Storz rigid bronchoscope.. The flexible scope introduced. In the distal portion of the trachea on the left there is a large tumor causing about 30% obstruction. The left main is nearly completely occluded. We were able to advance the scope into the left main. Extensive amount of pus was suctioned from the left side. A 10 x 40 mm Aero stent was placed under direct visualization. The stent was in good position. Tumor debulking of the distal left tracheal mass was performed manually and using APC at 0.6 L, 40 W. Balloon dilatation was performed. We used a 5.5 cm CRE balloon 8, 9, 10. The balloon was inflated up to 10 mm. At the end of the procedure there is minor residual tumor in the distal trachea. The left main is patent with the stent in good position. ebus 03/03/2023 Imaging PET/CT: 03/15/[address] [place] [address] (chest) 02/19/23 Cardiopulmonary Testing PFT's/Six: requested Cardiac: Office Notes/Consults 03/03/2023 Jennifer History of: No family history on file. PAST MEDICAL HISTORY Diagnosis Date COPD (chronic obstructive pulmonary disease) (HCC) Heart attack (HCC) HTN (hypertension) Hypercholesteremia PAST SURGICAL HISTORY Procedure Laterality Date APPENDECTOMY HERNIA REPAIR HX HYSTERECTOMY HX PAST SURGICAL HISTORY OF cardiac stent placement x 3 stents Social History Tobacco Use Smoking status: Every Day Years: 1.00 Types: Cigarettes Smokeless tobacco: Never Substance Use Topics Alcohol use: Not Currently Drug use: Not Currently Request per patient discussion, surgery unable to be apart of the plan, will have dr garcia reach out to the referring MD office and Dr Fitch to discuss PE (more content not included)... Normal [facility] Telephone (AiboA) -- JEANMARIE FARIA ([id number]) 1965 F Date Time Provider Department 03/08/23 SALEEM FITCH During your visit today, we recorded the following information about you: Toney Bailon LPN 03/08/2023 2:57 PM Signed I notified Carla with Dr. Gongora's office, cardiology, that Jeanmarie will be scheduled for a bronchoscopy with pulmonary stent placement with Dr. Foss, Gong still operator brandy, and will need cardiac clearance. I provided Carla with Dr. Foss's phone and fax number and she notify Dr. Gongora. Toney Bailon LPN Allergies As of Date: 03/08/2023 (No Known Allergies) Date Reviewed: 03/08/2023 Reviewed by: Toney Bailon LPN - Fully Assessed Reason for Visit: Patient Update [1234] Cardiac Clearance [4105] Prescriptions as of 03/08/2023 - albuterol HFA (PROVENTIL HFA, VENTOLIN HFA) 90 mcg/actuation inhaler inhale 2 puffs by mouth and INTO THE LUNGS every 6 hours if neede... (REFER TO PRESCRIPTION NOTES). - amoxicillin-clavulanic acid (AUGMENTIN) 875-125 mg per tablet TAKE ONE TABLET BY MOUTH IN THE MORNING AND AT BEDTIME - aspirin, enteric coated (ASPIRIN, ENTERIC COATED) 81 mg EC tablet Take 81 mg by mouth. - atorvastatin (LIPITOR) 80 mg tablet - isosorbide mononitrate ER (IMDUR) 30 mg 24 hr tablet Take 1 tablet by mouth every afternoon. - metoprolol succinate ER (TOPROL XL) 50 mg 24 hr tablet Take 50 mg by mouth. - nitroglycerin sublingual (NITROQUICK) 0.[address] 1 tablet under the tongue if needed every 5 minutes for shama... (REFER TO PRESCRIPTION NOTES). - Omeprazole Magnesium 20 mg tablet Take 20 mg by mouth. - predniSONE (DELTASONE) 20 mg tablet Take 40 mg by mouth every morning. - BRILINTA 90 mg tablet Take 1 tablet by mouth every 12 hours 6am/6pm. - traMADol (ULTRAM) 50 mg tablet Take 50 mg by mouth every 6 hours as needed. Problem List As Of Date: 03/08/2023 (None) Encounter Status:Closed by TONEY BAILON on 03/08/23 Normal [facility] Orders Onlyon 03-08-2023 Orders Only [id number] Cyndee Faria 1965 F Date Provider Department Center 03/08/2023 383-BETITO FOSS [facility] Family History Problem Relation Age of Onset Heart failure Mother Diabetes Mother Other Mother Hypertension Mother Family Status - Relation Status Age at Mother Normal [facility] 29on 03-03-2023 29 Addendum created 03/19 1633 by Rajesh Toussaint DO Order list changed Normal [facility] Anesthesiaon 03-03-2023 Anesthesia [id number] Cyndee Faria 1965 F Date Provider Department Center 03/03/2023 [place]9-ALICIA OLIVEROS [facility] [place] [facility] Family History Problem Relation Age of Onset Heart failure Mother Diabetes Mother Other Mother Hypertension Mother Family Status - Relation Status Age at Mother Normal [facility] HISTOLOGY - TISSUE EXAMon LAB AP CASE REPORT Normal [facility] Comment on above: Result Comment: Surg ical Pathology Case: [id number] Authorizing Provider: Betito Foss MD Collected: 03/03/2023 1426 Ordering Location: [facility] Main Operating Room Received: 03/03/20232041 Pathologist: Dorothea Saunders MD Specimen: Trachea/Tracheal, tracheal mass bx Performed By: #### L [id number] ####[facility] ([employer])[address] [place] [address] LAB AP CLINICAL INFORMATION Order Diagnoses Normal [facility] Comment on above: Result Comment: R59. 0 - Mediastinal adenopathy [ICD-10-CM] Performed By: #### L [id number] ####[facility] (BEAKER)[address] [place] [address] LAB AP GROSS DESCRIPTION [facility] Comment on above: Result Comment: A. T rachea/Tracheal. Part A is received in formalin labeled Jeanmarie Giana and tracheal mass bx. It consists of 4 pieces of ortiz-pink, irregular soft tissue measuring 0.8 x 0.5 x 0.2 cm in aggregate. The specimen is submitted in toto in 1 cassette. Balwinder Lerner, Pathologists' Foam Rubber Curer Performed By: #### L [id number] ####[facility] ([facility])[address] [place] [address] LAB AP MICROSCOPIC DESCRIPTION Microscopic examination performed. [facility] Comment on above: Performed By: #### L [id number] ####[facility] ([facility])[address] [place] [address] LAB AP REPORT FINAL DIAGNOSIS NARRATIVE [facility] Comment on above: Result Comment: A. T divya mass, biopsy: - Fragments of benign respiratory-type mucosa. - No evidence of carcinoma. Performed By: #### L [id number] ####[facility] ([facility])[address] [place] [address] [facility] 03-03-2023 ------ -- Attestation signed by Betito Foss MD at 03/03/2023 1:34 PM Re-explained the procedure to the patient along with the associated risk of pneumothorax, bleeding, hypoxia, and respiratory failure. Patient is agreeable and will proceed with the scheduled bronchoscopy and EBUS TBNA Betito Foss MD Interventional Pulmonary Medicine Pulmonary and Critical Care Medicine [facility] -- Pulmonology Progress Patient : Jeanmarie Faria; 57 y.o. Location: No information available for this encounter. Attending: Alberta payne. providers found Admit Date: 03/03/2023 Hospital Day: 0 Reason for Consult: Asked by Dr Alberta payne. providers found to see for left hilar mass . HPI 57 year old female with hx of HTN, hypertrophic cardiomyopathy, CAD, chronic smoking who presented today for diagnostic bronchoscopy with EBUS+TBFNA . As pert patient her condition started 2 months ago, started with having exertional tierra\rtnes of breath associated with non productive cough, wheezing and central chest pain. Initially she went to ER 2 months ago, CXCR obtained which was unremarkable and she was released afterwards. Her condition has worsened over the last few weeks so she went to [facility] ER last week, CT scan obtained which found to have large mediastinal mass. Referred to us for EBUS. Past medical hx: HTN, CAD Social : smoked for more than 40 yrs, 1 pack/day still actively smoking Family: no gf\family hx oif lung cancer. She denied having fever, weight loss, hemoptysis or recent infectiion Assessment: Left sided paratracheal mass Mediastinal adenopath Plan: Will proceed with diagnostic bronchoscopy and EBUS-TBFNA today. Dicussed in details with the patient. She is in agreement. All her questions were addressed. Consent obtained. Past History/Allergies?Social History: Past Medical History: Diagnosis Date COPD (chronic obstructive pulmonary disease) ([facility]) Coronary artery disease Diverticulosis GERD (gastroesophageal reflux disease) History of transfusion Hyperlipidemia Hypertension Irritable bowel syndrome Mediastinal mass Myocardial infarction ([facility]/HCC) 11/2021 Spastic colon No Known Allergies Social History Socioeconomic History Marital status: Spouse name: Not on file Number of children: Not on file Years of education: Not on file Highest education level: Not on file Occupational History Not on file Tobacco Use Smoking status: Every Day Packs/day: 0.50 Types: Cigarettes Smokeless tobacco: Never Vaping Use Vaping Use: Never used Substance and Sexual Activity Alcohol use: Not Currently Drug use: Not Currently Sexual activity: Not on file Other Topics Concern Not on file Social History Narrative Not on file Social Determinants of Health Financial Resource Strain: Not on file Food Insecurity: Not on file Transportation Needs: Not on file Physical Activity: Not on file Stress: Not on file Social Connections: Not on file Intimate Partner Violence: Not on file Housing Stability: Not on file Family History: Family History Problem Relation Name Age of Onset Heart failure Mother Diabetes Mother Other ([place]) Mother Hypertension Mother Outpatient Medications: (Not in a hospital admission) Current Medications: Scheduled Meds: lactated Ringer's, 30 mL/hr, intravenous, Once Continuous Infusions: PRN Meds: PRN medications: Insert peripheral IV AND Saline lock IV AND sodium chloride Review of Systems: ROS All 12 systems reviewed. Input/Output: No intake/output data recorded. Vital Signs: Temperature: Temp: 36.2 ???C (97.2 ???F) TMax: Temp (24hrs), Av.2 ???C (97.2 ???F), Min:36.2 ???C (97.2 ???F), Max:36.2 ???C (97.2 ???F) Respirations: Resp: 18 Pulse: Heart Rate: 95 BP: BP: 116/80 BP Range: Systolic (24hrs), Av , Min:116 , Max:116 Diastolic (24hrs), Av, Min:80, Max:80 Wt Readings from Last 3 Encounters: 03/03/23 74.7 kg (164 lb 10.9 oz) Physical Examination: General: Patient is alert and oriented x3, not in acute distress. HEENT: Atraumatic, normocephalic, PERRLA Neck: Supple neck. Respiratory: expiratory wheezing noted. More in left side. no crackles. Heart: Regular rhythm, no murmur, no rub. Neurology: Can move all extremities, no focal deficit. Abdomen: Soft, not distended, not tender, May sign is negative. Extremities: No cyanosis, no edema. Skin: Warm and dry. Labs: BNP: No results found for: BNP KYA: No results found for: KYA SPEP:No results found for: PROT UPEP: No components found for: LABPE C3: No results found for: C3 C4: No results found for: C4 MPO ANCA: No components found for: MPO PR3 ANCA: No components found for: PR3 Anti-GBM: No components found for: GBMAB (more content not included)... Normal [facility] NON-LINEN KEEPER CYTOLOGY - CELLULAR EXAMon 03-03-2023 LAB AP ADDENDUM 1 Normal [facility] Comment on above: Result Comment: This case ([id number]) was sent to [employer] for the [employer] xT tumor panel. Findings were as follows: Somatic: Potentially Actionable KRAS: G12C Somatic: Biologically Relevant PTPRD: S497* GATA6: R76fs TP53: R248W B2M: S40* STAG2: K92* Germline: Pathogenic/Likely Pathogenic No matched normal sample was received, therefore germline sequencing was not performed. Pertinent Negatives EGFR, BRAF, ALK, ROS1, RET, MET, ERBB2 Immunotherapy Markers Tumor Mutational Brent (TMB): 13.2 m/MB Microsatellite Instability Status (MSI): Stable PD-L1 22C3 IHC: Too few tumor cells present Comment: See separate [employer] xT report for a complete description with interpretive content and potential clinical trials. Addendum electronically signed by Jie Nolan MD on 05/03/2023 at 10:46 AM Performed By: #### L [id number] ####[facility] (BEAKER)[address] [place] [address] LAB AP ASR DISCLAIMER The interpretation of this case included the use of immunohistochemistry or special stains. These tests have not been cleared or approved by the U.S. Food and Drug Administration. The FDA has determined that such clearance or approval is not necessary. These tests are used for clinical purposes and should not be regarded as investigational or for research. This laboratory is certified to perform high complexity testing under the Clinical Laboratory Improvement Amendments of 1998. Normal [facility] Comment on above: Performed By: #### L [id number] ####[facility] (BEAKER)[address] [place] [address] LAB AP CASE REPORT Normal [facility] Comment on above: Result Comment: Non- gynecologic Cytology Case: [id number] Authorizing Provider: Betito Foss MD Collected: 03/03/2023 1352 Ordering Location: [facility] Main Operating Room Received: 03/03/2023 1434 Pathologist: Jie Nolan MD Specimen: Trachea/Tracheal, tracheal mass FNA Performed By: #### L [id number] ####[facility] ([facility] [place] [address] LAB AP CLINICAL INFORMATION Mediastinal mass adjacent/abutting the superior margin of the left mainstem bronchus, anterior margin of the aorta, and anterior esophagus (3 cm), COPD, tobacco use Normal [facility] Comment on above: Performed By: #### L [id number] ####[facility] ([facility])[address] [place] [address] LAB AP DIAGNOSIS COMMENT Normal [facility] Comment on above: Result Comment: Immu nohistochemistry with controls performed. Lesional cells positive for CK5/6. Focal weak positivity with p63 is identified. In a background of abundant necrosis scantly to moderately cellular are scattered malignant tumor cell clusters and single malignant cells identified. Contact molecular pathology for requests for ancillary molecular testing. See also concurrent biopsy, [id number]. Performed By: #### L [id number] ####[facility] ([facility])[address] [place] [address] LAB AP GROSS DESCRIPTION A. 2 air-dried slides, 2 alcohol-fixed slides, 30 mL CytoLyt with hazy, red fluid and red/white particles Normal [facility] Comment on above: Performed By: #### L [id number] ####[facility] ([facility])[address] [place] [address] LAB AP INTRAOPERATIVE CONSULTATION Normal [facility] Comment on above: Result Comment: A. T rachea/Tracheal. Rapid on-site evaluation was performed by Jie Nolan MD. The material examined during rapid on-site evaluation was deemed adequate for diagnosis. Pass #1: Adequate Pass #2: Adequate Pass #3: Defer - cell block Pass #4: Defer - cell block Pass #5: Defer - cell block Pass #6: Defer - cell block Pass #7: Defer - cell block *Only select material is examined during the on-site evaluation. Final diagnosis is pending the review of all material submitted.* Performed By: #### L [id number] ####[facility] ([facility])[address] [place] [address] LAB AP MICROSCOPIC DESCRIPTION Satisfactory for evaluation. Examination of the prepared smears and cell block reveals tumor cells arranged in aggregates and as single cells with dense cytoplasm, enlarged round to oval nuclei, irregular chromatin, and prominent nucleoli in a background of abundant necrosis, benign bronchial cells, and blood. [facility] Comment on above: Performed By: #### L [id number] ####[facility] ([facility])[address] [place] [address] LAB AP REPORT FINAL DIAGNOSIS NARRATIVE [facility] Comment on above: Result Comment: A. T divya mass, EBUS-guided fine needle aspiration: - Most consistent with squamous cell carcinoma (see microscopic description and comment). Performed By: #### L [id number] ####[facility] ([facility])[address] [place] [address] POCT GLUCOSE METER UNSOLICIT ED RESULTSon 03-03-2023 Glucose [Mass/Vol] 120 mg/dL High 70-105 [facility] Comment on above: Order Comment: Waive d Testing in the ED is performed under the ED CLIA certificate #[id number]. Result Comment: aepp ink Performed By: #### L [id number] ####[facility] ([facility])[address] [place] [address] [id number] 02-27-2023 [id number] Nothing to Eat or Dr ink, including Candy, Gum, Mints, and Tobacco after Midnight the night before surgery. Take METOPROLOL, OMEPRAZOLE, ISOSORBIDE, TRAMADOL if needed with a sip of water the day of surgery. Hold Vitamins, Supplements, and NSAIDS prior to surgery. Patient has been holding Brilinta since February 22. Hold all other meds the morning of surgery. IF YOU ARE GOING HOME AFTER YOUR SURGERY OR PROCEDURE, FOR YOUR SAFETY, YOUR SURGERY WILL BE CANCELLED IF BOTH OF THE FOLLOWING ARE NOT AVAILABLE: An adult regional company flatbed truck driver over the age of 18, that can receive information about your care after surgery, and drive you home. A responsible adult to stay with you for 24 hours in case of an emergency. Can be same as above. The highest risk of complications is within the first 24 hours after sedation/anesthesia. Nothing to eat or drink after midnight the night before surgery. This includes gum, candy, mints, and lozenges. No alcohol, marijuana, or tobacco products including vaping for 24 hours. Please brush your teeth; don't swallow the toothpaste or water. If you use dentures, wear them but do not use paste. Please leave any other removable dental hardware at home. Do not put in contact lenses. Do not wear perfume, make-up, nail kinyarwanda, or lotions on the day of your surgery or procedure. Follow skin-prep/wipe instructions as below if required. Bring with you: *Insurance card *Photo ID *Medication list *Co-pay for visit/prescriptions If applicable: *Rescue inhalers *Green bracelet from lab *CPAP or BiPAP machine, if staying overnight *Any braces, splints, or equipment ordered preoperatively *Remote controls for implanted devices Leave at home: *Purse/Wallet/Rocha- unless needed for co-pay *Cell phone (can leave with family/friend or place in locker if needed) *Jewelry (including piercings and wedding bands) *If not possible, ask the person who is waiting with you to keep them Children under the age of 12 will not be allowed into patient care areas. We will call you between 3pm and 4pm the day before your surgery to give you an arrival time. If you do not receive this call, have any questions, or need to make any changes, please call [phone]. Notify your surgeon if you develop any illness such as a cold, cough, fever, sore throat or vomiting between now and your surgery. Thank you for entrusting us with your care. [facility] Surgical Services Team Normal [facility] Prep for Procedureon 023 Prep for Procedure [id number] Cyndee Faria 1965 F Date Provider Department Center 02/27/2023 BETITO BALBUENA [facility] [place] Family History Problem Relation Age of Onset Heart failure Mother Diabetes Mother Other Mother Hypertension Mother Family Status - Relation Status Age at Mother Normal [facility] Orders Onlyon 02-24-2023 Orders Only [id number] GianaHarrisonnatividad pool 1965 F Date Provider Department Center 02/24/2023 JadeISAACBETITO DUNBAR [facility] [place] Family History Problem Relation Age of Onset Heart failure Mother Diabetes Mother Other Mother Hypertension Mother Family Status - Relation Status Age at Mother Normal [facility] Activated partial thrombopla stin time (aPTT) in platelet poor plasma by coagulation aOrdered By: Teo Gongora on 12-30-2022 aPTT Coag (PPP) [Time] 35.6 s 25.1-36.5 [facility] Basophils Auto (Bld) [#/Vol] Ordered By: Teo Gongora on 12-30-2022 Basophils (Bld) [#/Vol] 0.1 10*3/uL 0.0-0.2 [facility] Basophils/100 WBC Auto (Bld) Ordered By: Teo Gongora on 12-30-2022 Basophils/100 WBC (Bld) 0.9 % . [facility] Blood Urea Nitrogenon 2022 Urea nitrogen [Mass/Vol] 13 mg/dL Normal 7-25 [facility] Comment on above: Performed By: #### P P, CREAT, HCGQUAL, CBC, LYTES, BUN, LIPID #### [address] Carbon dioxide, total [Moles /volume] in Serum or PlasmaOrdered By: Teo Gongora on 12-30-2022 CO2 [Moles/Vol] 22.7 mmol/L 21.0-31.0 [facility] Chloride [Moles/volume] in S mony or PlasmaOrdered By: Teo Gongora on 12-30-2022 Chloride [Moles/Vol] 106 mmol/L 98-107 [facility] Cholesterol [Mass/volume] in Serum or PlasmaOrdered By: Teo Gongora on 12-30-2022 Cholesterol [Mass/Vol] 121 mg/dL 140-200 [facility] Comment on above: Chol less than 200 m g/dl low riskChol 201-239 mg/dl borderline riskChol 240 mg/dl and greater high risk Cholesterol in LDL Calc [Mas s/Vol]Ordered By: Teo Gongora on 12-30-2022 Cholesterol in LDL [Mass/Vol] 59 mg/dL 0-100 [facility] Comment on above: LDL ATP III CLASSIFI CATIONLDL less than 100 mg/dL OptimalLDL 100-129 mg/dL Near or above optimalLDL 130-159 mg/dL Borderline highLDL 160-189 mg/dL HighLDL greater than 189 mg/dL Very high Cholesterol in VLDL Calc [Ma ss/Vol]Ordered By: Teo Gongora on 12-30-2022 Cholesterol in VLDL [Mass/Vol] 26 mg/dL [facility] Choriogonadotropin.beta subu nit [Units/volume] in Serum or PlasmaOrdered By: Teo Gongora on 12-30-2022 HCG.beta subunit Qn Negative [facility] Coagulation Profileon 2022 aPTT Coag (Bld) [Time] 35.6 s Normal 25.1-36.5 [facility] Comment on above: Result Comment: PERF ORMED BY: [place] [address] PATHOLOGIST [employer]BER[employer]ICIT[employer] EUSEBIO DOWELL M.D. Performed By: #### P P, CREAT, HCGQUAL, CBC, LYTES, BUN, LIPID #### [facility] [address] [place] [address] INR Coag (PPP) [Relative time] 1.1 {INR} Normal [facility] Comment on above: Result Comment: INR Therapeutic Range A) Pre- and Peroperative OAT started two weeks before surgery. NOT HIP SURGERY: 1.5 - 2.5 HIP SURGERY: 2 - 3 B) Primary and secondary prevention of venous THROMBOSIS: 2 - 3 C) Active venous thrombosis, pulmonary embolism and prevention of recurrent venous thrombosis: 2 - 3 D) Prevention of arterial thromboembolism including patients with mechanical heart valves: 3 - 4.5 Performed By: #### P P, CREAT, HCGQUAL, CBC, LYTES, BUN, LIPID #### [facility] [address] [place] [address] [place] PT Coag (PPP) [Time] 12.2 s Normal 9.0-12.9 [facility] Comment on above: Performed By: #### P P, CREAT, HCGQUAL, CBC, LYTES, BUN, LIPID #### [address] Complete Blood Count Auto Di ffon 12-30-2022 Basophils (Bld) [#/Vol] 0.1 10*3/uL Normal 0.0-0.2 [facility] Comment on above: Result Comment: PERF ORMED BY: [place] [address] PATHOLOGIST [employer]BERSH[employer] SOLICITOR EUSEBIO DOWELL M.D. Performed By: #### P P, CREAT, HCGQUAL, CBC, LYTES, BUN, LIPID #### [address] Basophils/100 WBC (Bld) 0.9 % Normal . [facility] Comment on above: Performed By: #### P P, CREAT, HCGQUAL, CBC, LYTES, BUN, LIPID #### [address] Eosinophils (Bld) [#/Vol] 0.1 10*3/uL Normal 0.0-0.45 [facility] Comment on above: Performed By: #### P P, CREAT, HCGQUAL, CBC, LYTES, BUN, LIPID #### [address] Eosinophils/100 WBC (Bld) 1.0 % Normal . [facility] Comment on above: Performed By: #### P P, CREAT, HCGQUAL, CBC, LYTES, BUN, LIPID #### [address] Erythrocyte distribution width (RBC) [Ratio] 15.2 % Normal 11.9-15.3 [facility] Comment on above: Performed By: #### P P, CREAT, HCGQUAL, CBC, LYTES, BUN, LIPID #### [address] Hematocrit (Bld) [Volume fraction] 40.6 % Normal 34.0-46.4 [facility] Comment on above: Performed By: #### P P, CREAT, HCGQUAL, CBC, LYTES, BUN, LIPID #### [address] Hemoglobin (Bld) [Mass/Vol] 13.6 g/dL Normal 11.8-15.4 [facility] Comment on above: Performed By: #### P P, CREAT, HCGQUAL, CBC, LYTES, BUN, LIPID #### [address] Lymphocytes (Bld) [#/Vol] 3.5 10*3/uL Normal 1.00-4.8 [facility] Comment on above: Performed By: #### P P, CREAT, HCGQUAL, CBC, LYTES, BUN, LIPID #### [address] Lymphocytes/100 WBC (Bld) 27.2 % Normal . [facility] Comment on above: Performed By: #### P P, CREAT, HCGQUAL, CBC, LYTES, BUN, LIPID #### [address] MCH (RBC) [Entitic mass] 30.0 pg Normal 24.7-34.3 [facility] Comment on above: Performed By: #### P P, CREAT, HCGQUAL, CBC, LYTES, BUN, LIPID #### [address] MCV (RBC) [Entitic vol] 89.6 fL Normal 80-100 [facility] Comment on above: Performed By: #### P P, CREAT, HCGQUAL, CBC, LYTES, BUN, LIPID #### [address] Mean Corpuscular HGB Conc 33.4 g/dL Normal 32.0-35.0 [facility] Comment on above: Performed By: #### P P, CREAT, HCGQUAL, CBC, LYTES, BUN, LIPID #### [place] [address] [place] Monocytes (Bld) [#/Vol] 1.3 10*3/uL High 0.0-0.8 [facility] Comment on above: Performed By: #### P P, CREAT, HCGQUAL, CBC, LYTES, BUN, LIPID #### [place] [address] [place] Monocytes/100 WBC (Bld) 10.1 % Normal . [facility] Comment on above: Performed By: #### P P, CREAT, HCGQUAL, CBC, LYTES, BUN, LIPID #### [address] Neutrophils (Bld) [#/Vol] 7.8 10*3/uL High 1.8-7.7 [facility] Comment on above: Performed By: #### P P, CREAT, HCGQUAL, CBC, LYTES, BUN, LIPID #### [address] Neutrophils/100 WBC (Bld) 60.8 % Normal . [facility] Comment on above: Performed By: #### P P, CREAT, HCGQUAL, CBC, LYTES, BUN, LIPID #### [address] NRBC% 0.2 /100{WBC} Normal 0-0.5 [facility] Comment on above: Performed By: #### P P, CREAT, HCGQUAL, CBC, LYTES, BUN, LIPID #### [address] Platelet mean volume (Bld) [Entitic vol] 8.2 fL Normal 6.3-10.7 [facility] Comment on above: Performed By: #### P P, CREAT, HCGQUAL, CBC, LYTES, BUN, LIPID #### [place] [address] [place] Platelets (Bld) [#/Vol] 338 10*3/uL Normal 150-450 [facility] Comment on above: Performed By: #### P P, CREAT, HCGQUAL, CBC, LYTES, BUN, LIPID #### [address] RBC (Bld) [#/Vol] 4.53 10*6/uL Normal 3.60-5.00 [facility] Comment on above: Performed By: #### P P, CREAT, HCGQUAL, CBC, LYTES, BUN, LIPID #### [address] WBC (Bld) [#/Vol] 12.8 10*3/uL High 3.8-11.6 [facility] Comment on above: Performed By: #### P P, CREAT, HCGQUAL, CBC, LYTES, BUN, LIPID #### [address] Creatinineon 12-30-2022 Creatinine [Mass/Vol] 0.69 mg/dL Normal 0.60-1.20 [facility] Comment on above: Performed By: #### P P, CREAT, HCGQUAL, CBC, LYTES, BUN, LIPID #### [address] GFR/1.73 sq M.predicted MDRD (S/P/Bld) [Vol rate/Area] mL/min/{1.73_m2} Normal [facility] Comment on above: Performed By: #### P P, CREAT, HCGQUAL, CBC, LYTES, BUN, LIPID #### [address] Creatinine [Mass/volume] in Serum or PlasmaOrdered By: Teo Gongora on 12-30-2022 Creatinine [Mass/Vol] 0.69 mg/dL 0.60-1.20 [facility] ECG 12 lead ECGon 12-30-2022 ECG 12 lead ECG [facility] [place] [address] [place] [address] Electrocardiograph Report Signed Patient: Jeanmarie Faria MR#: [id number] 51 : 1965 Acct:[id number] Age/Sex: 57 / F ADM Date: 12/30/22 Loc: CL Room: Type: [facility] Attending Dr: Teo Gongora DO Ordering Provider: Teo Gongora DO Date of Service: 12/30/2201/18/1056 ECG/ECG 12 lead ECG: [facility] Copies to: Test Reason : Blood Pressure : / mmHG Vent. Rate : 068 BPM Atrial Rate : 068 BPM P-R Int : 134 ms QRS Dur : 084 ms QT Int : 428 ms P-R-T Axes : 040 050 166 degrees QTc Int : 455 ms Normal sinus rhythm Left ventricular hypertrophy with repolarization abnormality Abnormal ECG When compared with ECG of 16-DEC-2021 09:57, No significant change was found Confirmed by CHINO JERRY [facility], BOLIVAR ([id number]) on 01/01/2023 12:37:24 AM Referred By: Electronically Signed By:BOLIVAR MAGANA MD [facility] Transcribed By: MUS Signed By Bolivar Magana MD, FACC 01/01/23 0037 Normal [facility] Electrolyteson 12-30-2022 Anion gap [Moles/Vol] 12.3 mmol/L Normal 6.0-15.0 [facility] Comment on above: Performed By: #### P P, CREAT, HCGQUAL, CBC, LYTES, BUN, LIPID #### [facility] [address] [place] [address] [place] Chloride [Moles/Vol] 106 mmol/L Normal 98-107 [facility] Comment on above: Performed By: #### P P, CREAT, HCGQUAL, CBC, LYTES, BUN, LIPID #### [facility] [address] [place] [address] [place] CO2 [Moles/Vol] 22.7 mmol/L Normal 21.0-31.0 [facility] Comment on above: Performed By: #### P P, CREAT, HCGQUAL, CBC, LYTES, BUN, LIPID #### [facility] [address] [place] [address] [place] Potassium [Moles/Vol] 4.0 mmol/L Normal 3.5-5.1 [facility] Comment on above: Performed By: #### P P, CREAT, HCGQUAL, CBC, LYTES, BUN, LIPID #### [address] Sodium [Moles/Vol] 137 mmol/L Normal 136-145 [facility] Comment on above: Performed By: #### P P, CREAT, HCGQUAL, CBC, LYTES, BUN, LIPID #### [address] Eosinophils Auto (Bld) [#/Vo l]Ordered By: Teo Gongora on 12-30-2022 Eosinophils (Bld) [#/Vol] 0.1 10*3/uL 0.0-0.45 [facility] Eosinophils/100 WBC Auto (Bl d)Ordered By: Teo Gongora on 12-30-2022 Eosinophils/100 WBC (Bld) 1.0 % . [facility] Erythrocyte distribution wid th Auto (RBC) [Ratio]Ordered By: Teo Gongora on 12-30-2022 Erythrocyte distribution width (RBC) [Ratio] 15.2 % 11.9-15.3 [facility] HCG,Qualitative Serumon HCG,Qualitative Serum Negative Normal [facility] Comment on above: Result Comment: PERF ORMED BY: [place] [address] PATHOLOGIST [employer]ICIT[employer] EUSEBIO DOWELL M.D. Performed By: #### P P, CREAT, HCGQUAL, CBC, LYTES, BUN, LIPID #### [address] Hematocrit Auto (Bld) [Volum e fraction]Ordered By: Teo Gongora on 12-30-2022 Hematocrit (Bld) [Volume fraction] 40.6 % 34.0-46.4 [facility] Hemoglobin [Mass/volume] in BloodOrdered By: Teo Gongora on 12-30-2022 Hemoglobin (Bld) [Mass/Vol] 13.6 g/dL 11.8-15.4 [facility] Laboratory - Chemistry and C hemistry - challengeon 12-30-2022 Cholesterol [Mass/Vol] 121\S\121 below low threshold 140-200 -[facility] [employer] 250 DO Work Phone: Comment on above: Chol less than 200 m g/dl low risk Chol 201-239 mg/dl borderline risk Chol 240 mg/dl and greater high risk Cholesterol in LDL [Mass/Vol] 59\S\59 Normal 0-100 -[facility] [employer] [facility] 250 DO Work Phone: Comment on above: LDL ATP III CLASSIFI CATION LDL less than 100 mg/dL Optimal LDL 100-129 mg/dL Near or above optimal LDL 130-159 mg/dL Borderline high LDL 160-189 mg/dL High LDL greater than 189 mg/dL Very high Laboratory - CoagulationOrde red By: Teo Gongora on 12-30-2022 PT Coag (PPP) [Time] 12.2 s 9.0-12.9 [facility] Leukocytes [#/volume] correc roney for nucleated erythrocytes in Blood by Automated counOrdered By: Teo Gongora on 12-30-2022 WBC corrected for nucl RBC Auto (Bld) [#/Vol] 12.8 10*3/uL 3.8-11.6 [facility] Lipid Panelon 12-30-2022 Cholesterol [Mass/Vol] 121 mg/dL Low 140-200 [facility] Comment on above: Result Comment: Chol less than 200 mg/dl low risk Chol 201-239 mg/dl borderline risk Chol 240 mg/dl and greater high risk Performed By: #### P P, CREAT, HCGQUAL, CBC, LYTES, BUN, LIPID #### [facility] [address] Cholesterol in HDL [Mass/Vol] 35 mg/dL Normal 35-85 [facility] Comment on above: Result Comment: HDL CHOL ATP-III CLASSIFICATION Cardiovascular Risk HDL > or equal to 60 mg/dL LOW HDL < 40 mg/dL HIGH Performed By: #### P P, CREAT, HCGQUAL, CBC, LYTES, BUN, LIPID #### [facility] [address] [place] [address] Cholesterol.total/Chol esterol in HDL [Mass ratio] 3.5 {ratio} Normal <5.0 [facility] Comment on above: Performed By: #### P P, CREAT, HCGQUAL, CBC, LYTES, BUN, LIPID #### [facility] [address] LDL Cholesterol,Calculated 59 mg/dL Normal 0-100 [facility] Comment on above: Result Comment: LDL ATP III CLASSIFICATION LDL less than 100 mg/dL Optimal LDL 100-129 mg/dL Near or above optimal LDL 130-159 mg/dL Borderline high LDL 160-189 mg/dL High LDL greater than 189 mg/dL Very high Performed By: #### P P, CREAT, HCGQUAL, CBC, LYTES, BUN, LIPID #### [facility] [address] Triglyceride w/Reflex 133 mg/dL Normal 0-149 [facility] Comment on above: Result Comment: TRIG ATP III CLASSIFICATION TRIG less than 150 mg/dL Normal TRIG 150-199 mg/dL Borderline high TRIG 200-500 mg/dL High TRIG greater than 500 mg/dL Very high Standard traceable to the Center for Disease Conrtrol and Prevention (CDC) test method. Performed By: #### P P, CREAT, HCGQUAL, CBC, LYTES, BUN, LIPID #### [facility] [address] VLDL CHOLESTEROL 26 mg/dL Normal [facility] Comment on above: Performed By: #### P P, CREAT, HCGQUAL, CBC, LYTES, BUN, LIPID #### [facility] [address] Lymphocytes Auto (Bld) [#/Vo l]Ordered By: Teo Gongora on 12-30-2022 Lymphocytes (Bld) [#/Vol] 3.5 10*3/uL 1.00-4.8 [facility] Lymphocytes/100 WBC Auto (Bl d)Ordered By: Teo Gongora on 12-30-2022 Lymphocytes/100 WBC (Bld) 27.2 % . [facility] MCH Auto (RBC) [Entitic mass ]Ordered By: Teo Gongora on 12-30-2022 MCH (RBC) [Entitic mass] 30.0 pg 24.7-34.3 [facility] MCHC Auto (RBC) [Mass/Vol]Or dered By: Teo Gongora on 12-30-2022 MCHC (RBC) [Mass/Vol] 33.4 g/dL 32.0-35.[address] [facility] [facility] MCV Auto (RBC) [Entitic vol] Ordered By: Teo Gongora on 12-30-2022 MCV (RBC) [Entitic vol] 89.6 fL 80-100 [facility] Monocytes Auto (Bld) [#/Vol] Ordered By: Teo Gongora on 12-30-2022 Monocytes (Bld) [#/Vol] 1.3 10*3/uL 0.0-0.8 [facility] Monocytes/100 WBC Auto (Bld) Ordered By: Teo Gongora on 12-30-2022 Monocytes/100 WBC (Bld) 10.1 % . [facility] Neutrophils Auto (Bld) [#/Vo l]Ordered By: Teo Gongora on 12-30-2022 Neutrophils (Bld) [#/Vol] 7.8 10*3/uL 1.8-7.7 [facility] Neutrophils/100 WBC Auto (Bl d)Ordered By: Teo Gongora on 12-30-2022 Neutrophils/100 WBC (Bld) 60.8 % . [facility] No Panel InformationOrdered By: Teo Gongora on 12-30-2022 Estimated GFR (CKD-EPI) > 60.0 mL/Min [facility] Pharm[facility] Creatinine Clearance (Chem N/A [facility] No Panel Informationon 12-30 60.8\S\60.8 Normal . -[facility] [employer] 250 DO Work Phone: 8.2\S\8.2 Normal 6.3-10.7 -[facility] [employer] 250 DO Work Phone: 338\S\338 Normal 150-450 -[facility] [employer] 250 DO Work Phone: 15.2\S\15.2 Normal 11.9-15.3 [facility]-Sandu edgar 250 DO Work Phone: [phone] 33.4\S\33.4 Normal 32.0-35.0 -[facility]-Sand[facility] edgar 250 DO Work Phone: [phone] 30.0\S\30.0 Normal 24.7-34.3 [facility] edgar 250 DO Work Phone: [phone] 7.8\S\7.8 above high threshold 1.8-7.7 [facility] edgar 250 DO Work Phone: [phone] 0.2\S\0.2 Normal 0-0.5 [facility] [employer]gar 250 DO Work Phone: [phone] 0.9\S\0.9 Normal . [facility] [employer]gar 250 DO Work Phone: [phone] 1.0\S\1.0 Normal . [facility]gar 250 DO Work Phone: [phone] 10.1\S\10.1 Normal . [facility] edgar 250 DO Work Phone: [phone] 27.2\S\27.2 Normal . [facility] edgar 250 DO Work Phone: [phone] 0.1\S\0.1 Normal 0.0-0.45 [facility]-Heleneu edgar 250 DO Work Phone: Comment on above: PERFORMED BY:[facility] [place] [id number] MEDICAL DIRECTOREUSEBIO DOWELL M.D. 1.3\S\1.3 above high threshold 0.0-0.8 -[facility] edgar 250 DO Work Phone: 3.5\S\3.5 Normal <5.0 -[facility] edgar 250 DO Work Phone: [phone] 89.6\S\89.6 Normal 80-100 [facility] edgar 250 DO Work Phone: 40.6\S\40.6 Normal 34.0-46.4 [facility] 250 DO Work Phone: 13.6\S\13.6 Normal 11.8-15.4 [facility] 250 DO Work Phone: 4.53\S\4.53 Normal 3.60-5.00 [facility] 250 DO Work Phone: 12.8\S\12.8 above high threshold 3.8-11.6 [facility] 250 DO Work Phone: 35.6\S\35.6 Normal 25.1-36.5 [facility] 250 DO Work Phone: Comment on above: PERFORMED BY:[facility] [place] [place], [place] [id number] MEDICAL DIRECTOREUSEBIO DOWELL M.D. 1.1\S\1.1 Normal [facility] 250 DO Work Phone: Comment on above: INR Therapeutic Rang e A) Pre- and Peroperative OAT started two weeks before surgery. NOT HIP SURGERY: 1.5 - 2.5 HIP SURGERY: 2 - 3 B) Primary and secondary prevention of venous THROMBOSIS: 2 - 3 C) Active venous thrombosis, pulmonary embolism and prevention of recurrent venous thrombosis: 2 - 3 D) Prevention of arterial thromboembolism including patients with mechanical heart valves: 3 - 4.5 12.2\S\12.2 Normal 9.0-12.9 [facility] 250 DO Work Phone: 12.3\S\12.3 Normal 6.0-15.0 [facility] 250 DO Work Phone: 22.7\S\22.7 Normal 21.0-31.0 [facility] edgar 250 DO Work Phone: 106\S\106 Normal 98-107 [facility] Roshan hernández 250 DO Work Phone: 4.0\S\4.0 Normal 3.5-5.1 [facility] Roshan hernández 250 DO Work Phone: 137\S\137 Normal 136-145 [facility] Roshan hernández 250 DO Work Phone: 13\S\13 Normal 7-25 [facility] Roshan hernández 250 DO Work Phone: > 60.0 Normal [facility] Roshan hernández 250 DO Work Phone: 0.69\S\0.69 Normal 0.60-1.20 [facility] Roshan hernández 250 DO Work Phone: 26\S\26 Normal [facility] Roshan hernández 250 DO Work Phone: 133\S\133 Normal 0-149 [facility] Roshan hernández 250 DO Work Phone: Comment on above: TRIG ATP III CLASSIF ICATION TRIG less than 150 mg/dL Normal TRIG 150-199 mg/dL Borderline high TRIG 200-500 mg/dL High TRIG greater than 500 mg/dL Very high Standard traceable to the Center for Disease Conrtrol and Prevention (CDC) test method. 35\S\35 Normal 35-85 [facility] Roshan hernández 250 DO Work Phone: Comment on above: HDL CHOL ATP-III CLA SSIFICATION Cardiovascular Risk HDL > or equal to 60 mg/dL LOW HDL < 40 mg/dL HIGH Negative Normal [facility] Roshan hernández 250 DO Work Phone: Comment on above: PERFORMED BY:[place] [address] [address] [place], [place] [id number] MEDICAL DIRECTOREUSEBIO DOWELL M.D. Nucleated erythrocytes [Pres ence] in Blood by Automated countOrdered By: Teo Gongora on 12-30-2022 Nucleated RBC Auto Ql (Bld) 0.2 /100{WBC} 0-0.5 [facility] Platelet mean volume Auto (B ld) [Entitic vol]Ordered By: Teo Gongora on 12-30-2022 Platelet mean volume (Bld) [Entitic vol] 8.2 fL 6.3-10.7 [facility] Platelet poor plasma interna tional normalized ratio (INR) by coagulation assay (relatOrdered By: Teo Gongora on 12-30-2022 INR Coag (PPP) [Relative time] 1.1 {INR} [facility] Comment on above: INR Therapeutic Rang e A) Pre- and Peroperative OAT started two weeks before surgery. NOT HIP SURGERY: 1.5 - 2.5 HIP SURGERY: 2 - 3B) Primary and secondary prevention of venous THROMBOSIS: 2 - 3C) Active venous thrombosis, pulmonary embolismand prevention of recurrent venous thrombosis: 2 - 3D) Prevention of arterial thromboembolismincluding patients with mechanical heart valves: 3 - 4.5 Platelets Auto (Bld) [#/Vol] Ordered By: Teo Gongora on 12-30-2022 Platelets (Bld) [#/Vol] 338 10*3/uL 150-450 [facility] Potassium [Moles/volume] in Serum or PlasmaOrdered By: Teo Gongora on 12-30-2022 Potassium [Moles/Vol] 4.0 mmol/L 3.5-5.1 [facility] RBC Auto (Bld) [#/Vol]Ordere d By: Teo Gongora on 12-30-2022 RBC (Bld) [#/Vol] 4.53 10*6/uL 3.60-5.00 [facility] Serum or plasma anion gap de terminationOrdered By: Teo Gongora on 12-30-2022 Anion gap [Moles/Vol] 12.3 mmol/L 6.0-15.0 [facility] Serum or plasma high density lipoprotein (HDL) cholesterol measurementOrdered By: Teo Gongora on 12-30-2022 Cholesterol in HDL [Mass/Vol] 35 mg/dL 35-85 [facility] Comment on above: HDL CHOL ATP-III CLA SSIFICATION Cardiovascular RiskHDL > or equal to 60 mg/dL LOWHDL < 40 mg/dL HIGH Serum or plasma total choles terol/high density lipoprotein (HDL) cholesterol mass ratOrdered By: Teo Gongora on 12-30-2022 Cholesterol.total/Chol esterol in HDL [Mass ratio] 3.5 {ratio} <5.0 [facility] Sodium [Moles/volume] in Ser um or PlasmaOrdered By: Teo Gongora on 12-30-2022 Sodium [Moles/Vol] 137 mmol/L 136-145 [facility] Triglyceride [Mass/volume] i n Serum or PlasmaOrdered By: Teo Gongora on 12-30-2022 Triglyceride [Mass/Vol] 133 mg/dL 0-149 [facility] Comment on above: TRIG ATP III CLASSIF ICATIONTRIG less than 150 mg/dL NormalTRIG 150-199 mg/dL Borderline highTRIG 200-500 mg/dL High TRIG greater than 500 mg/dL Very highStandard traceable to the Center for Disease Conrtrol and Prevention (CDC) test method. Urea nitrogen [Mass/volume] in Serum or PlasmaOrdered By: Teo Gongora on 12-30-2022 Urea nitrogen [Mass/Vol] 13 mg/dL 7-25 [facility] WBC Auto (Bld) [#/Vol]Ordere d By: Teo Gongora on 12-30-2022 WBC (Bld) [#/Vol] 12.8 10*3/uL 3.8-11.6 [facility] Office Visit (Cardiology)on 12-28-2022 Follow-up visit Diagnoses/Problems Assessed Angina, class II (413.9) (I20.9) ASHD (arteriosclerotic heart disease) (414.00) (I25.10) COPD (chronic obstructive pulmonary disease) (496) (J44.9) History of myocardial infarction (412) (I25.2) Hypertrophic nonobstructive cardiomyopathy (425.18) (I42.2) LVH (left ventricular hypertrophy) (429.3) (I51.7) Post PTCA (V45.82) (Z98.61) Overweight with body mass index (BMI) of 29 to 29.9 in adult (278.02,V85.25) (E66.3,Z68.29) Current smoker (305.1) (F17.200) 1/2 ppd Dyspnea (786.09) (R06.00) Orders ACS (acute coronary syndrome) Renew: Atorvastatin Calcium 80 MG Oral Tablet; TAKE 1 TABLET AT BEDTIME Angina, class II, ASHD (arteriosclerotic heart disease), Dyspnea, History of myocardial infarction Cardiac Catherization; Status:Active - Retrospective Authorization; Requested for:28Dec2022; Angina, class II, ASHD (arteriosclerotic heart disease), Post PTCA Renew: Brilinta 90 MG Oral Tablet; TAKE 1 TABLET TWICE DAILY ASHD (arteriosclerotic heart disease) Renew: Aspirin 81 MG Oral Tablet Chewable; Take 1 tablet daily ASHD (arteriosclerotic heart disease), History of myocardial infarction, LVH (left ventricular hypertrophy) Renew: Metoprolol Tartrate 25 MG Oral Tablet; TAKE 1 TABLET TWICE DAILY Overweight with body mass index (BMI) of 29 to 29.9 in adult Healthy Weight Tips; Status:Complete - Retrospective Authorization; Done: 28Dec2022 Some eating tips that can help you lose weight.; Status:Complete - Retrospective Authorization; Done: 28Dec2022 SocHx: Current smoker Tobacco Use Screening; Status:Complete; Done: 28Dec2022 Patient Instructions Please bring all medicines, vitamins, and herbal supplements with you when you come to the office. Prescriptions will not be filled unless you are compliant with your follow up appointments or have a follow up appointment scheduled as per instruction of your physician. Refills should be requested at the time of your visit. Cardiac cath on Monday12/30/2022 Follow-up after testing completed Chief Complaint 57-year-old female who returns and is describing class IV anginal complaints with radiation to the back, shortness of breath. She does not use any nitroglycerin. This is of been gradual in onset over the past month and more frequent over the past 1 week. She admits to waking up at night with similar symptoms. It got so severe that her almost brought her to the emergency room last night. She has a history of non-ST elevation AK in November 2021 with two-vessel revascularization involving the RCA and the circumflex. She also has a history of hypertrophic cardiomyopathy with 2 cm septal thickness, with no obvious outflow tract acceleration at rest. She has ongoing tobacco use, obesity. She remains compliant with medical therapies and DAPT. Her symptoms are consistent with recurrent class IV angina. Risks, benefits and alternatives informed decision-making process performed with her and her significant other this morning, we will proceed with catheterization and possible intervention on Monday. If no significant coronary disease or residual disease is found then will refer to the HCM clinic for further diagnostic and therapeutic intervention for her hypertrophic cardiomyopathy. Surgical History Problems History of Appendectomy History of Breast surgery History of Colon surgery History of Complete colonoscopy History of Hernia repair History of Hysterectomy Current Meds Medication NameInstruction Aspirin 81 MG Oral Tablet ChewableTake 1 tablet daily Atorvastatin Calcium 80 MG Oral TabletTAKE 1 TABLET AT BEDTIME. Brilinta 90 MG Oral TabletTAKE 1 TABLET TWICE DAILY. Metoprolol Tartrate 25 MG Oral TabletTAKE 1 TABLET TWICE DAILY. Nitroglycerin 0.4 MG [address]ual Tablet SublingualPLACE 1 TABLET UNDER THE TONGUE EVERY 5 MINUTES FOR UP TO 3 DOSES NEEDED FOR CHEST PAIN.CALL 911 IF PAIN PERSISTS. Patient did not bring medication list or bottles. Updated verbally with patient Allergies Medication No Known Drug Allergies Recorded By: Nadia Ashford; 01/25/2022 3:35:06 PM Social History Problems Current smoker (305.1) (F17.200) 1/2 ppd Daily caffeine consumption 3-4 daily No alcohol use No illicit drug use Review of Systems Cardiovascular: chest pain. Respiratory: shortness of breath and shortness of breath during exertion, but no cough. Vitals Vital Signs Recorded: 28Dec2022 11:26AM Heart Rate68, L Radial Hwrnzioa946, LUE, Sitting Jdocefdai59, LUE, Sitting Height5 ft 4 in Vadnbq136 lb BMI Moijqdsdya57.01 kg/m2 BSA Calculated1.82 Tobacco Usea) Yes Patient encouraged to stop using tobacco productsYes PHQ-2 #1. Over the last 2 weeks have you felt down, depressed or hopeless? (If yes, answer PHQ-9 below)No PHQ-2 #2. Over the last 2 weeks have you felt little interest or pleasure in doing things? (If yes, answer PHQ-9 below)No Physical Exam Constitutional: alert and in no acute (more content not included)... Normal [employer] Tobacco Screening.on 023 Adult depression screening assessment No -[facility]-Sandu edgar 250 DO Work Phone: Tobacco use status [facility] a) Yes MP-[facility]-Sandu edgar 250 DO Work Phone: Tobacco Screening. Yes MP-[facility] Heart-Sandu edgar 250 DO Work Phone: XR CHEST 2 Von 08-11-2022 XR CHEST 2 V EXAM: XR CHEST 2 V HISTORY: . Cough . COMPARISON: 06/23/2022 TECHNIQUE: Frontal and lateral chest FINDINGS: Heart and vascularity are unremarkable. Lungs are expanded and free of focal infiltrates. Early spondylosis of the spine is noted. Atherosclerotic changes of the thoracic aorta are noted. IMPRESSION: No acute heart or lung disease identified. Electronically authenticated by: ABELARDO FLANNERY Date: 2022-08-11 11:03 Normal [facility] CARDIAC DANETTE 3-6on 2 CK [Catalytic activity/Vol] 64 U/L Normal 26-192 [facility] Comment on above: Performed By: #### C MREP ####[facility] [address] [place] [address]Dr. Jozef Marrero CK.MB [Mass/Vol] 0.84 ng/mL Normal <=3.60 [facility] Comment on above: Performed By: #### C MREP ####[facility] [address] [place] [address]Dr. Jozef Marrero HSTROP 19.7 pg/mL Normal 4.0-51.3 [facility] Comment on above: Result Comment: CUT- OFF POINTS HAVE BEEN ESTABLISHED BASED ON THE FOURTH UNIVERSAL DEFINITIONS OF MYOCARDIAL INFARCTION. THE UPPER REFERENCE LIMIT (URL) OF TROPONIN, DEFINED THE 99TH PERCENTILE OF cTnI DISTRIBUTION IN A REFERENCE POPULATION, HAS BEEN CONFIRMED THE DECISION THRESHOLD FOR AK DIAGNOSIS. Performed By: #### C MREP ####[facility] [address] [place] [id number] Marrero CARDIAC DANETTE ADMITon 022 CK [Catalytic activity/Vol] 63 U/L Normal 26-192 [facility] Comment on above: Performed By: #### B ROWAN, CMADM ####[facility] [address] [place] [id number] Marrero CK.MB [Mass/Vol] 0.78 ng/mL Normal <=3.60 [facility] Comment on above: Performed By: #### KAILYN Everett MP ####[facility] [address] [place] [address]Dr. Jozef Marrero HSTROP 19.6 pg/mL Normal 4.0-51.3 [facility] Comment on above: Result Comment: CUT- OFF POINTS HAVE BEEN ESTABLISHED BASED ON THE FOURTH UNIVERSAL DEFINITIONS OF MYOCARDIAL INFARCTION. THE UPPER REFERENCE LIMIT (URL) OF TROPONIN, DEFINED THE 99TH PERCENTILE OF cTnI DISTRIBUTION IN A REFERENCE POPULATION, HAS BEEN CONFIRMED THE DECISION THRESHOLD FOR AK DIAGNOSIS. Performed By: #### KAILYN Everett MP ####[facility] [address] [place] [address]Dr. Jozef Marrero DIANA 19 ng/mL Normal 9-82 [facility] Comment on above: Performed By: #### KAILYN Everett MP ####[facility] [address] [place] [address]Dr. Jozef Marrero CBC W MANUAL DIFFon 06-23-20 22 ATYPICAL LYMPH # Normal [facility] Comment on above: Performed By: #### C JENN #### [facility] [address] [place] [address] [address] Jozef Marrero ATYPICAL LYMPH % Normal [facility] Comment on above: Performed By: #### Bennett BARAJAS #### [facility] [address] [address] [address] Jozef Marrero BAND # 0.0 103/ul Normal 0.0-0.3 [facility] Comment on above: Performed By: #### C JENN #### [facility] [address] [address] [address] Jozef Marrero BAND % 0 % Normal 0-5 [facility] Comment on above: Performed By: #### C JENN #### [facility] [address] [place] [address] Dr. Jozef Marrero BASOM # 0.11 103/ul Critically high 0.00-0.10 [facility] Comment on above: Performed By: #### C JENN #### [facility] [address] [place] [address] Dr. Jozef Marrero BASOM % 1.0 % Normal 0.2-2.0 [facility] Comment on above: Performed By: #### C JENN #### [facility] [address] [place] [address] Dr. Jozef Marrero BLAST # Normal [facility] Comment on above: Performed By: #### C JENN #### [facility] [address] [place] [address] Dr. Jozef Marrero BLAST % Normal [facility] Comment on above: Performed By: #### C JENN #### [facility] [address] [place] [address] Dr. Jozef Marrero CORRECTED WBC Normal 4.0-11.0 [facility] Comment on above: Performed By: #### C JENN #### [facility] [address] [place] [address] Dr. Jozef Marrero EOS # 0.00 103/ul Normal 0.00-0.70 [facility] Comment on above: Performed By: #### C JENN #### [facility] [address] [place] [address] Dr. Jozef Marrero EOS% 0.0 % Critically low 0.9-7.0 [facility] Comment on above: Performed By: #### C JENN #### [facility] [address] [place] [address] Dr. Jozef Marrero HCT 40.1 % Normal 36.0-48.0 [facility] Comment on above: Performed By: #### C JENN #### [facility] [address] [place] [address] Dr. Jozef Marrero HGB 13.7 g/dl Normal 12.0-16.0 [facility] Comment on above: Performed By: #### C JENN #### [facility] [address] [place] [address] Dr. Jozef Marrero LYMPHM # 2.70 103/ul Normal 1.20-3.80 [facility] Comment on above: Performed By: #### C JENN #### [facility] [address] [place] [address] Dr. Jozef Marrero LYMPHM% 25.0 % Normal 20.5-60.0 [facility] Comment on above: Performed By: #### C JENN #### [facility] [address] [place] [address] Dr. Jozef Marrero MCH 30.4 pg Normal 26.7-34.0 [facility] Comment on above: Performed By: #### C JENN #### [facility] [address] [place] [address] Dr. Jozef Marrero MCHC 34.2 g/dl Normal 29.9-35.2 [facility] Comment on above: Performed By: #### C JENN #### [facility] [address] [place] [address] Dr. Jozef Marrero MCV 88.9 fL Normal 81.0-99.0 [facility] Comment on above: Performed By: #### C JENN #### [facility] [address] [place] [address] Dr. Jozef Marrero METAMYELOCYTE # Normal [facility] Comment on above: Performed By: #### C JENN #### [facility] [address] [place] [address] Dr. Jozef Marrero METAMYELOCYTE % Normal [facility] Comment on above: Performed By: #### C JENN #### [facility] [address] [place] [address] Dr. Jozef Marrero MONOM# 0.97 103/ul Critically high 0.30-0.80 [facility] Comment on above: Performed By: #### C JENN #### [facility] [address] [place] [address] Dr. Jozef Marrero MONOM% 9.0 % Normal 1.7-12.0 [facility] Comment on above: Performed By: #### C JENN #### [facility] [address] [place] [address] Dr. Jozef Marrero MPV 9.9 fL Normal 9.5-13.5 [facility] Comment on above: Performed By: #### C BCJUANITA #### [facility] [address] [address] [address] Jozef Marrero MYELOCYTE # Normal [facility] Comment on above: Performed By: #### C JENN #### [facility] [address] [address] [address] Jozef Marrero MYELOCYTE % Normal [facility] Comment on above: Performed By: #### C JENN #### [facility] [address] [address] [address] Jozef Marrero NRBC Normal [facility] Comment on above: Performed By: #### C JENN #### [facility] [address] [place] [address] Dr. Jozef Marrero PLT 339 103/ul Normal 150-450 [facility] Comment on above: Performed By: #### C JENN #### [facility] [address] [place] [address] Dr. Jozef Marrero RBC 4.51 106/ul Normal 4.20-5.40 [facility] Comment on above: Performed By: #### C JENN #### [facility] [address] [place] [address] Dr. Jozef Marrero RDW 14.6 % Normal 11.0-15.0 [facility] Comment on above: Performed By: #### C JENN #### [facility] [address] [place] [address] Dr. Jozef Marrero SEG # 7.02 103/ul Critically high 1.40-6.50 [facility] Comment on above: Performed By: #### C JENN #### [facility] [address] [place] [address] Dr. Jozef Marrero SEG % 65.0 % Normal 43.0-75.0 [facility] Comment on above: Performed By: #### C JENN #### [facility] [address] [address] [address] Jozef Marrero WBC 10.8 103/ul Normal 4.0-11.0 [facility] Comment on above: Performed By: #### C JENN #### [facility] [address] [place], [place] [address] Dr. Jozef Marrero Covid-19 PCR (CVDTBH)on 05-29 SARS-CoV-2 (COVID-19) RNA NEVA+probe Ql (Unsp spec) Detected Critically abnormal NOT DETECTED [facility] Comment on above: Result Comment: This test is not yet approved or cleared by the [place] FDA. When there are no FDA-approved or cleared tests available, and other criteria are met, FDA can make tests available under an emergency access mechanism called an Emergency Use Authorization (EUA). The EUA for this test is supported by the [place] of Health and Human Service's declaration that circumstances exist to justify the emergency use of in vitro diagnostics for the detection and/or diagnosis of the virus that causes COVID-19. This EUA will remain in effect for the duration of the COVID-19 declaration justifying emergency of IVDs, unless it is terminated or revoked by the FDA (after which the test may no longer be used). Performed By: #### C VDTBH #### [facility] [address] [address] [address] Jozef Marrero D-DIMERon 06-23-2022 D-DIMER 0.53 mg/L FEU Normal <=0.59 [facility] Comment on above: Performed By: #### D DIM ####[facility] [address] [place] [id number] Marrero D-DIMER COMMENTS SEE BELOW Normal [facility] Comment on above: Result Comment: Incr eases in D-Dimer concentration observed with thromboembolic events can be variable due to localization, size, and age of the thrombus. Therefore, a thromboembolic event cannot be diagnosed with certainty on the basis of the reference range. D-Dimers may also be elevated for a variety of disorders including: advanced age, , coronary disease, cancer, liver disease, infection, inflammation, hematoma, DIC, trauma, post-surgery, diabetes, thrombolytic or anticoagulant therapy, stress, and generalized hospitalization. Performed By: #### D DIM ####[facility] [address] [place] [id number]. Jozef Marrero PROF CHEM 8 (BAS METB)on Anion gap [Moles/Vol] 12.6 mmol/L Normal [facility] Comment on above: Performed By: #### KAILYN Everett MP ####[facility] [address] [place] [address]Dr. Jozef Marrero Calcium [Mass/Vol] 8.9 mg/dL Normal 8.5-10.1 [facility] Comment on above: Performed By: #### Marguerite DONAHUE, KAILYN ####[facility] [address] [place], [place] [address]Dr. Jozef Marrero Chloride [Moles/Vol] 104 mmol/L Normal 98-107 [facility] Comment on above: Performed By: #### KAILYN Everett MP ####[facility] [address] [place], [place] [address]Dr. Jozef aMrrero CO2 [Moles/Vol] 24.7 mmol/L Normal 21.0-32.0 [facility] Comment on above: Performed By: #### KAILYN Everett MP ####[facility] [address] [place], [place] [address]Dr. Jozef Marrero Creatinine [Mass/Vol] 0.85 mg/dL Normal 0.55-1.02 [facility] Comment on above: Performed By: #### KAILYN Everett MP ####[facility] [address] [place], [place] [address]Dr. Jozef Marrero EGFR-AF BOLIVIAN >60 Normal >=60 [facility] Comment on above: Performed By: #### KAILYN Everett MP ####[facility] [address] [place], [place] [address]Dr. Jozef Marrero EGFR-NON AF BOLIVIAN >60 Normal >=60 [facility] Comment on above: Performed By: #### KAILYN Everett MP ####[facility] [address] [place], [place] [address]Dr. Jozef Marrero Glucose [Mass/Vol] 123 mg/dL Critically high 74-106 [facility] Comment on above: Performed By: #### KAILYN Everett MP ####[facility] [address] [place] [address] Jozef Marrero Potassium [Moles/Vol] 3.3 mmol/L Critically low 3.5-5.1 [facility] Comment on above: Performed By: #### B ROWAN, CMADM ####[facility] [address] [place], [place] [address]Pp. Jozef Marrero Sodium [Moles/Vol] 138 mmol/L Normal 136-145 [facility] Comment on above: Performed By: #### B ROWAN, CMADM ####[facility] [address] [place], [place] [address]Cd. Jozef Marrero Urea nitrogen [Mass/Vol] 19.0 mg/dL Critically high 7.0-18.0 [facility] Comment on above: Performed By: #### B ROWAN, CMADM ####[facility] [address] [place], [place] [address]Qr. Jozef Marrero Urea nitrogen/Creatinine [Mass ratio] 22.4 mg/mg Normal [facility] Comment on above: Performed By: #### B ROWAN, CMADM ####[facility] [address] [place], [place] [address]Ye. Jozef Marrero XR CHEST 1 06-23-2022 XR CHEST 1 V CLINICAL HISTORY: Ch est pain COMPARISON: Chest radiograph 12/14/2021 FINDINGS: Portable AP view of the chest obtained. Cardiomediastinal silhouette is normal. Lungs are clear, no evidence of infiltrate, suspicious nodule, or mass. No evidence of significant pleural fluid on this portable projection. No acute bony abnormality. IMPRESSION: No acute abnormality. Electronically authenticated by: JAMIE NEGRON Date: 2022-06-23 02:50 Normal [facility] Office Visit (Cardiology)on 05-05-2022 Follow-up visit Diagnoses/Problems Assessed NSTEMI, initial episode of care (410.71) (I21.4) Hypertrophic nonobstructive cardiomyopathy (425.18) (I42.2) ASHD (arteriosclerotic heart disease) (414.00) (I25.10) ACS (acute coronary syndrome) (411.1) (I24.9) Post PTCA (V45.82) (Z98.61) LVH (left ventricular hypertrophy) (429.3) (I51.7) COPD (chronic obstructive pulmonary disease) (496) (J44.9) Dyspnea (786.09) (R06.00) Current smoker (305.1) (F17.200) 1/2 ppd Angina pectoris (413.9) (I20.9) Orders ACS (acute coronary syndrome) Renew: Atorvastatin Calcium 80 MG Oral Tablet; TAKE 1 TABLET AT BEDTIME Angina pectoris Renew: Nitroglycerin 0.4 MG Sublingual Tablet Sublingual; PLACE 1 TABLET UNDER THE TONGUE EVERY 5 MINUTES FOR UP TO 3 DOSES NEEDED FOR CHEST PAIN.CALL 911 IF PAIN PERSISTS ASHD (arteriosclerotic heart disease) Renew: Aspirin 81 MG Oral Tablet Chewable; Take 1 tablet daily Overweight with body mass index (BMI) of 25 to 25.9 in adult Healthy Weight Tips; Status:Complete - Retrospective Authorization; Done: [id number] Some eating tips that can help you lose weight.; Status:Complete - Retrospective Authorization; Done: [id number] SocHx: Current smoker You need to stop smoking. Though it is not easy, more than half of all adult smokers have quit. We encourage you to write down all the reasons you should quit smoking and set a quit date for yourself. Ask us how we can help. You may also call 0-245-PQXWNOW for free resources and assistance.; Status:Complete - Retrospective Authorization; Done: [id number] Tobacco Use Screening; Status:Complete; Done: [id number] Patient Instructions Please bring all medicines, vitamins, and herbal supplements with you when you come to the office. Prescriptions will not be filled unless you are compliant with your follow up appointments or have a follow up appointment scheduled as per instruction of your physician. Refills should be requested at the time of your visit. Follow up in 6 months Chief Complaint JEANMARIE FARIA is being seen for a 4 month follow-up of. 56-year-old female returns for follow-up and is doing well other than right wrist musculoskeletal complaints. She denies any chest heaviness, pressure discomfort or shortness of breath. Unfortunately she continues smoking we counseled her for 3 to 5 minutes today on smoking cessation, offered alternatives. Patient has a history of recent three-vessel PCI of the mid circumflex with 1 drug-eluting stent and provisional balloon angioplasty of the OM branch and then mid to distal RCA intervention x2 drug-eluting stents. At that time she was diagnosed with hypertrophic cardiomyopathy with hyperdynamic left ventricular function. Repeated echocardiogram fails to demonstrate any outflow tract obstruction at baseline. She remains on appropriate guideline directed medical therapies as reviewed Recommendations we will follow-up in 6 months on same therapy and obtain appropriate laboratories at that time, we will continue to survey her left ventricular outflow tract and LVH on a ongoing basis Surgical History Problems History of Appendectomy History of Breast surgery History of Colon surgery History of Complete colonoscopy History of Hernia repair History of Hysterectomy Current Meds Medication NameInstruction Aspirin 81 MG Oral Tablet ChewableTake 1 tablet daily Atorvastatin Calcium 80 MG Oral TabletTAKE 1 TABLET AT BEDTIME. Brilinta 90 MG Oral TabletTAKE 1 TABLET TWICE DAILY. Metoprolol Tartrate 25 MG Oral TabletTAKE 1 TABLET TWICE DAILY. Nitroglycerin 0.4 MG Sublingual Tablet SublingualPLACE 1 TABLET UNDER THE TONGUE EVERY 5 MINUTES FOR UP TO 3 DOSES NEEDED FOR CHEST PAIN.CALL 911 IF PAIN PERSISTS. Allergies Medication No Known Drug Allergies Recorded By: Nadia Ashfrod; 01/25/2022 3:35:06 PM Social History Problems Current smoker (305.1) (F17.200) 1/2 ppd Daily caffeine consumption 3-4 daily No alcohol use No illicit drug use Review of Systems Constitutional: not feeling tired. Cardiovascular: chest pain and palpitations, but no intermittent leg claudication and as noted in HPI. Respiratory: shortness of breath, but no cough. Gastrointestinal: no change in bowel habits and no blood in stools. Integumentary: no skin rashes. Neurological: no seizures and no frequent falls. All other systems have been reviewed and are negative for complaint. Vitals Vital Signs Recorded: 05May2022 11:41AM Heart Rate80, L Radial Flmkolze363, LUE, Sitting Wzrwuvuhs83, LUE, Sitting Height5 ft 4 in Shente286 lb BMI Badcevygrr27.92 kg/m2 BSA Calculated1.74 Tobacco Usea) Yes Patient encouraged to stop using tobacco productsYes Falls Screening (Age 18+)c) Not medically indicated Physical Exam Constitutional: alert and in no acute distress. Neck: neck is supple, symmetric, trachea midline, no masses and no thyromegaly . Pulmonary: no increased work of breathing or signs of respira (more content not included)... Normal [facility] Tobacco Screening.on 022 Fall risk assessment c) Not medically indicated -[facility] edgar 250 DO Work Phone: Tobacco use status CP a) Yes -[facility] edgar 250 DO Work Phone: Tobacco Screening. Yes [facility] edgar 250 DO Work Phone: Cardiovasc Arrhythmia Result son 02-22-2022 Cardiovasc Arrhythmia Results Reason For Visit Reason for Visit: Holter Monitor: 48-hour Holter monitors recorded with good recording and no diary returned. A total of 194,577 QRS complexes are evaluable with a minimum heart rate of 56, average heart rate of 70 and maximum heart rate of 106 beats a minute. Sinus rhythm is recorded throughout the entire recording. With evidence of diffuse T wave inversion in all 3 channels. There were only 6 ventricular ectopic beats and 44 supraventricular ectopic beats representing 0% ectopy, the longest R-R interval was 1.1 seconds. Sinus rhythm is recorded throughout the entire recording. Without any atrioventricular arrhythmias or pauses. JEANMARIE is here for the application of a 48 hour Holter monitor. Ordering Physician: Dr. Brett Gongora DO Diagnosis: [facility] equipment agreement signed. JEANMARIE understands monitor is to be returned on: 02/24/2022 Monitor number [id number] applied. Holter monitor returned and downloaded. Holter monitor printed and placed on Dr. Brett Gongora DO desk to dictate. Diagnosis/Problems Assessed History of syncope (V15.89) (Z87.898) Future Appointments Date/TimeProviderSpecialty Site 05/05/2022 11:20 Brett Reich DOCardiology703 [facility] 2 Madhav 250 DO Signatures Electronically signed by : LEANA Trejo; Feb 25 2022 12:14PM EST (Author) Electronically signed by : Brett Gongora DO; Mar 18 2022 3:39PM EST (Author) Normal [facility] Echocardiogramon 02-22-2022 Echocardiography [facility] dusky [address] [place] [address], [address] [place] [address] TRANSTHORACIC ECHOCARDIOGRAM REPORT Patient Name: JEANMARIE FARIA Reading Physician: [id number] Bolivar Magana MD, [facility] Study Date: 02/22/2022 Referring [id number] BRETT ROLAN Physician: MRN/PID: [id number] PCP: Aris Stewart MD Accession/Order#: [id number] [facility] Location: Date of : 1965 Fellow: Gender: F Nurse: Admit Date: Manager Medicare: Fern Cardona RDCS, RVT Height: 162.56 cm CC Report to: Weight: 63.05 kg Study Type: Echocardiogram BSA: 1.68 m2 Blood Pressure: 128 /70 mmHg Diagnosis/ICD: I42.2-Other hypertrophic cardiomyopathy; R06.00-Dyspnea, unspecified Indication: AK and PTCA-11/2021, Tobacco Abuse, Syncope Procedure/CPT: Echo Limited-50080 Study Detail: The following Echo studies were performed: 2D, M-Mode, Doppler and color flow. PHYSICIAN INTERPRETATION: Left Ventricle: The left ventricular systolic function is hyperdynamic, with an estimated ejection fraction of 75-80%. There are no regional wall motion abnormalities. The left ventricular cavity size is normal. Left ventricular diastolic filling was not assessed. Severe symmetrical concentric left ventricular hypertrophy with cavitary oblitiration during systole with no significant gradient by Doppler. Left Atrium: The left atrium is upper limits of normal in size. Right Ventricle: The right ventricle is normal in size. There is normal right ventricular global systolic function. Right Atrium: The right atrium is normal in size. Aortic Valve: The aortic valve appears structurally normal. There is no evidence of aortic valve regurgitation. Mitral Valve: The mitral valve is normal in structure. There is no evidence of mitral valve regurgitation. Tricuspid Valve: The tricuspid valve is structurally normal. No evidence of tricuspid regurgitation. Pulmonic Valve: The pulmonic valve is structurally normal. The pulmonic valve regurgitation was not assessed. Pericardium: There is no pericardial effusion noted. Aorta: The aortic root is normal. Systemic Veins: The inferior vena cava was not well visualized. CONCLUSIONS: 1. The left ventricular systolic function is hyperdynamic with a 75-80% estimated ejection fraction. 2. Severe symmetrical concentric left ventricular hypertrophy with cavitary oblitiration during systole with no significant gradient by Doppler. QUANTITATIVE DATA SUMMARY: 2D MEASUREMENTS: Normal Ranges: Ao Root d: 2.80 cm (2.0-3.7cm) LAs: 4.20 cm (2.7-4.0cm) RVIDd: 2.20 cm (0.9-3.6cm) IVSd: 2.00 cm (0.6-1.1cm) LVPWd: 1.00 cm (0.6-1.1cm) LVIDd: 4.60 cm (3.9-5.9cm) LVIDs: 2.60 cm LV Mass Index: 170.0 g/m2 LV % FS 43.5 % LV SYSTOLIC FUNCTION BY 2D PLANIMETRY (MOD): Normal Ranges: EF-A4C View: 75.4 % (>55%) AORTIC VALVE: Normal Ranges: LVOT Max Jerome: 1.86 m/s (<1.1m/s) LVOT VTI: 36.90 cm LVOT Diameter: 2.10 cm (1.8-2.4cm) [id number] Bolivar Magana MD, FACC Electronically signed on 02/24/2022 at 8:25:04 PM Final Normal [facility] Echocardiography Please click on the link to view the study images Normal -[facility] edgar 250 DO Work Phone: MG MAMM SCREEN 3D GIANNI CADon 02-21-2022 MG MAMM SCREEN 3D GIANNI CAD Patient: JEANMARIE FARIA Exam Date: 02/21/2022 : 1965 Gender:F Ordering : DR ARIS STEWART DElbertOElbert Admission #: [id number] Family : Order #: [id number] CLICK HERE TO VIEW EXAM RADIOLOGY REPORT PROCEDURE: MAMMOGRAM SCREENING 3D BILATERAL CAD COMPARISON: None. INDICATIONS: Screening for malignant neoplasm of breast Calculator Name NCI Breast Cancer Risk Assessment Tool 5 Year Breast Cancer Risk 1.90% Lifetime Breast Cancer Risk 13.60% Personal Breast Cancer No Personal Ovarian Cancer No Treatments None Family Cancers None LOCATION: [facility] BREAST COMPOSITION: Scattered areas fibroglandular density. FINDINGS: DIAGNOSTIC CATEGORY 2--BENIGN FINDING: Bilateral areas of focal asymmetry likely representing fibroglandular tissue. Bilateral linear scar markers. Scattered benign-appearing calcifications are present. Scattered benign-appearing lymph nodes are present. RIGHT BREAST: No significant suspicious finding. LEFT BREAST: No significant suspicious finding. RECOMMENDATIONS: ROUTINE MAMMOGRAM AND CLINICAL EVALUATION IN 12 MONTHS. PLEASE NOTE: A NORMAL MAMMOGRAM DOES NOT EXCLUDE THE POSSIBILITY OF BREAST CANCER. A CLINICALLY SUSPICIOUS PALPABLE LUMP SHOULD BE BIOPSIED. Dictated by: Abelardo Shetty MD on 02/21/2022 at 14:35 Approved by: Abelardo Shetty MD on 02/21/2022 at 14:37 Normal [facility] Covid-19 PCR ([facility])on SARS-CoV-2 (COVID-19) RNA NEVA+probe Ql (Unsp spec) Not detected Normal NOT DETECTED [facility] Comment on above: Result Comment: This test is not yet approved or cleared by the [place] FDA. When there are no FDA-approved or cleared tests available, and other criteria are met, FDA can make tests available under an emergency access mechanism called an Emergency Use Authorization (EUA). The EUA for this test is supported by the [place] of Health and Human Service's (HHS's) declaration that circumstances exist to justify the emergency use of in vitro diagnostics for the detection and/or diagnosis of the virus that causes COVID-19. This EUA will remain in effect (meaning this test can be used) for the duration of the COVID-19 declaration justifying emergency of IVDs, unless it is terminated or revoked by FDA (after which the test may no longer be used). When diagnostic testing is negative, the possibility of a false negative should be considered in the context of a patient's recent exposures and the presence of clinical signs and symptoms consistent with SARS-CoV-2. Performed By: #### C [facility] #### [facility] [address] [place], [place] [id number] Dr. Jozef Marrero Office Visit (Cardiology)on 01-25-2022 Follow-up visit Diagnoses/Problems Assessed NSTEMI, initial episode of care (410.71) (I21.4) Status post angioplasty (V45.89) (Z98.62) COPD (chronic obstructive pulmonary disease) (496) (J44.9) Current smoker (305.1) (F17.200) 1/2 ppd Cough (786.2) (R05.9) Viral illness (079.99) (B34.9) Hypertrophic nonobstructive cardiomyopathy (425.18) (I42.2) Body mass index (BMI) of 23.0 to 23.9 in adult (V85.1) (Z68.23) Dyspnea (786.09) (R06.00) History of syncope (V15.89) (Z87.898) 0 Orders Cough, Viral illness Coronavirus 2019 RNA by PCR, Symptomatic; Status:Active - Retrospective Authorization; Requested for:25Jan2022; Dyspnea, Hypertrophic nonobstructive cardiomyopathy Echocardiogram; Status:Hold For - Scheduling,Retrospective Authorization; Requested for:25Jan2022; History of syncope, Hypertrophic nonobstructive cardiomyopathy IO Holter Monitor up to 48 Hrs; Status:Active - Perform Order,Retrospective Authorization; Requested for:25Jan2022; Hypertrophic nonobstructive cardiomyopathy, NSTEMI, initial episode of care, Status post angioplasty Cardiac Rehab Referral Evaluation and Treatment Evaluate AND Treat Status: Hold For - Scheduling,Retrospective Authorization Requested for: 25Jan2022 Agreement : I agree to have my patient participate in the phase III outpatient cardiac rehabilitation program after completion of the phase II program. Consent : I consent to have my patient participate in the cardiac rehabilitation program. I will continue regular medical care of my patient throughout his/her participation in the program. Individualized Treatment Plan and Exercise Prescription : Defer the patients ITP and exercise prescription to be developed by the staff for your review and approval I authorize the Cardiac Rehabilitation Department to : Current lab values are helpful in order to assess the lipid status and individualize diet therapy. A venous blood sample will be drawn and lipids analyzed at the laboratory I authorize the Cardiac Rehabilitation Department to : Schedule a symptom limited graded exercise test with 12 lead ECG prior to starting cardiac rehabilitation and at discharge, if needed. SocHx: Current smoker You need to quit smoking.; Status:Complete - Retrospective Authorization; Done: 25Jan2022 You need to stop smoking. Though it is not easy, more than half of all adult smokers have quit. We encourage you to write down all the reasons you should quit smoking and set a quit date for yourself. Ask us how we can help. You may also call 1-701-SEBT-NOW for free resources and assistance.; Status:Complete - Retrospective Authorization; Done: 25Jan2022 Tobacco Use Screening; Status:Complete; Done: [id number] Patient Instructions Please bring all medicines, vitamins, and herbal supplements with you when you come to the office. Prescriptions will not be filled unless you are compliant with your follow up appointments or have a follow up appointment scheduled as per instruction of your physician. Refills should be requested at the time of your visit. Chief Complaint JEANMARIE FARIA is being seen for a 1 month follow-up of. Patient is a 56-year-old female returns following recent non-ST elevation AK, , Discharged December 16, following revascularization of the RCA with 2 drug-eluting stents in the circumflex with 1 drug-eluting stent. Left ventricular function is hypertrophic/hyperdynamic with asymmetric left ventricular septal hypertrophy with a septal thickness of 2 cm with no outflow tract acceleration at rest. She has ongoing history of tobacco use, she has complaints of exertional dyspnea as well as left lateral chest wall stabbing discomfort. Most recently over the past 4 days she felt like she developed a flulike illness with cough, fatigue, the left lateral chest wall discomfort. Her live-in boyfriend who has a history of heart transplantation in [place], and was sent to a [facility] with similar flulike illness and was diagnosed with influenza. Patient remains on appropriate postinfarction guideline directed medical therapies, she still smoking 1/2 pack cigarettes a day but is cut back quite a bit. 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 Will refer her for cardiac rehab, perform 48-hour Holter monitoring, and have her proceed with limited echo with Valsalva provocation to assess for outflow tract gradient. We will follow-up in 4 to 6-month Surgical History Problems History of Appendectomy History of Breast surgery History of Colon surgery History of Complete colonoscopy History of Hernia repair History of Hysterectomy Current Meds Medication NameInstruction Aspirin 81 MG Oral Tablet ChewableTake 1 tablet daily Atorvastatin Calcium 80 MG Oral TabletTAKE 1 TABLET AT BEDTIME. Brilinta 90 MG Oral TabletTAKE 1 TABLET TWICE DAILY. Metoprolol Tartrate 25 MG Oral TabletTAKE 1 (more content not included)... Normal [employer] Tobacco Screening.on 022 Adult depression screening assessment No [employer] Work Phone: Adult depression screening assessment Yes [facility] Work Phone: Fall risk assessment a) No falls within the last year [facility] Work Phone: Tobacco use status CPHS a) Yes [facility] Work Phone: Tobacco Screening. Yes [facility] Work Phone: Tobacco Screening. 2-More than half the days [facility] Work Phone: Tobacco Screening. 0-Not at all [facility] Work Phone: Tobacco Screening. 3-Nearly every day [facility] Work Phone: Tobacco Screening. Not difficult at all [facility] Work Phone: Blood hemoglobin measurement (mass/volume)Ordered By: Viviane Loco on 12-16-2021 Hemoglobin (Bld) [Mass/Vol] 14.1 g/dL 11.8-15.4 [facility] Creatinine and Glomerular fi ltration rate.predicted panel (S/P/Bld)Ordered By: Viviane Loco on 12-16-2021 Creatinine [Mass/Vol] 0.72 mg/dL 0.44-1.03 [facility] Erythrocyte distribution wid th Auto (RBC) [Ratio]Ordered By: Viviane Loco on 12-16-2021 Erythrocyte distribution width (RBC) [Ratio] 14.4 % 11.9-15.3 [facility] Estimated glomerular filtrat ion rate (GFR) non- AmericanOrdered By: Viviane Loco on 12-16-2021 GFR/1.73 sq M.predicted among non-blacks MDRD (S/P/Bld) [Vol rate/Area] > 60 mL/Min [facility] Hematocrit Auto (Bld) [Volum e fraction]Ordered By: Viviane Loco on 12-16-2021 Hematocrit (Bld) [Volume fraction] 42.2 % 34.0-46.4 [facility] MCH Auto (RBC) [Entitic mass ]Ordered By: Viviane Loco on 12-16-2021 MCH (RBC) [Entitic mass] 29.8 pg 24.7-34.3 [facility] MCHC Auto (RBC) [Mass/Vol]Or dered By: Viviane Loco on 12-16-2021 MCHC (RBC) [Mass/Vol] 33.3 g/dL 32.0-35.0 [facility] MCV Auto (RBC) [Entitic vol] Ordered By: Viviane Loco on 12-16-2021 MCV (RBC) [Entitic vol] 89.4 fL 80-100 [facility] No Panel InformationOrdered By: Viviane Loco on 12-16-2021 Estimated GFR () > 60 mL/Min [facility] Comment on above: GFR estimated refere nce range: According to KDOQI guidelines, <60 ml/min/1.73m2 is sufficient to diagnose a patient with chronic kidney disease. Pharmacy Creatinine Clearance (Chem 77.13 [facility] Platelet mean volume Auto (B ld) [Entitic vol]Ordered By: Viviane Loco on 12-16-2021 Platelet mean volume (Bld) [Entitic vol] 8.7 fL 6.3-10.7 [facility] Platelets Auto (Bld) [#/Vol] Ordered By: Viviane Loco on 12-16-2021 Platelets (Bld) [#/Vol] 304 10*3/uL 150-450 [facility] RBC Auto (Bld) [#/Vol]Ordere d By: Viviane Loco on 12-16-2021 RBC (Bld) [#/Vol] 4.72 10*6/uL 3.60-5.00 [facility] Serum or plasma calcium chuck urement (mass/volume)Ordered By: Viviane Loco on 12-16-2021 Calcium [Mass/Vol] 9.6 mg/dL 8.2-10.2 [facility] Serum or plasma chloride susan surement (moles/volume)Ordered By: Viviane Loco on 12-16-2021 Chloride [Moles/Vol] 105 mmol/L 95-114 [facility] Serum or plasma glucose chuck urement (mass/volume)Ordered By: Viviane Loco on 12-16-2021 Glucose [Mass/Vol] 90 mg/dL 70-100 [facility] Comment on above: ADA recommended refe rence rangeRandom Glucose Reference Range is dependent on time and content of last meal. Glucose of more than 200 mg/dL in a nonstressed, ambulatory subject supports the diagnosis of Diabetes Mellitus. Serum or plasma potassium me asurement (moles/volume)Ordered By: Viviane Loco on 12-16-2021 Potassium [Moles/Vol] 4.0 mmol/L 3.5-5.1 [facility] Serum or plasma sodium measu rement (moles/volume)Ordered By: Viviane Loco on 12-16-2021 Sodium [Moles/Vol] 136 mmol/L 136-146 [facility] Serum or plasma total carbon dioxide measurement (moles/volume)Ordered By: Viviane Loco on 12-16-2021 CO2 [Moles/Vol] 21.5 mmol/L 22.0-30.0 [facility] Serum or plasma urea nitroge n measurement (mass/volume)Ordered By: Viviane Loco on 12-16-2021 Urea nitrogen [Mass/Vol] 12 mg/dL 9-23 [facility] Troponin I.cardiac [Mass/vol ume] in Serum or Plasma by High sensitivity methodOrdered By: Teo Gongora on 12-16-2021 Troponin I.cardiac High sensitivity method [Mass/Vol] 6412 pg/mL 0-15 [facility] Comment on above: Results calledat 080 2 on 12/16/21 WBC Auto (Bld) [#/Vol]Ordere d By: Viviane Loco on 12-16-2021 WBC (Bld) [#/Vol] 12.5 10*3/uL 3.8-11.6 [facility] Basophils Auto (Bld) [#/Vol] Ordered By: Viviane Loco on 12-15-2021 Basophils (Bld) [#/Vol] 0.1 10*3/uL 0.0-0.2 [facility] Basophils/100 WBC Auto (Bld) Ordered By: Viviane Loco on 12-15-2021 Basophils/100 WBC (Bld) 0.7 % [facility] Cholesterol [Mass/volume] in Serum or PlasmaOrdered By: Viviane Loco on 12-15-2021 Cholesterol [Mass/Vol] 262 mg/dL 140-200 [facility] Comment on above: Chol less than 200 m g/dl low riskChol 201-239 mg/dl borderline riskChol 240 mg/dl and greater high risk Cholesterol in LDL Calc [Mas s/Vol]Ordered By: Viviane Loco on 12-15-2021 Cholesterol in LDL [Mass/Vol] 202 mg/dL 0-100 [facility] Comment on above: LDL ATP III CLASSIFI CATIONLDL less than 100 mg/dL OptimalLDL 100-129 mg/dL Near or above optimalLDL 130-159 mg/dL Borderline highLDL 160-189 mg/dL HighLDL greater than 189 mg/dL Very high Cholesterol in VLDL Calc [Ma ss/Vol]Ordered By: Viviane Loco on 12-15-2021 Cholesterol in VLDL [Mass/Vol] 27 mg/dL [facility] Eosinophils Auto (Bld) [#/Vo l]Ordered By: Viviane Loco on 12-15-2021 Eosinophils (Bld) [#/Vol] 0.1 10*3/uL 0.0-0.45 [facility] Eosinophils/100 WBC Auto (Bl d)Ordered By: Viviane Loco on 12-15-2021 Eosinophils/100 WBC (Bld) 0.5 % [facility] Laboratory - Hematology and Cell countsOrdered By: Viviane Loco on 12-15-2021 Nucleated RBC/100 WBC (Bld) [Ratio] 0.1 % 0-0.5 [facility] WBC (Bld) [#/Vol] 13.3 10*3/uL 4.5-11.0 [facility] Lymphocytes Auto (Bld) [#/Vo l]Ordered By: Viviane Loco on 12-15-2021 Lymphocytes (Bld) [#/Vol] 3.8 10*3/uL 1.00-4.8 [facility] Lymphocytes/100 WBC Auto (Bl d)Ordered By: Viviane Loco on 12-15-2021 Lymphocytes/100 WBC (Bld) 28.9 % [facility] Monocytes Auto (Bld) [#/Vol] Ordered By: Viviane Loco on 12-15-2021 Monocytes (Bld) [#/Vol] 1.3 10*3/uL 0.0-0.8 [facility] Monocytes/100 WBC Auto (Bld) Ordered By: Viviane Loco on 12-15-2021 Monocytes/100 WBC (Bld) 9.5 % [facility] Neutrophils Auto (Bld) [#/Vo l]Ordered By: Viviane Loco on 12-15-2021 Neutrophils (Bld) [#/Vol] 8.0 10*3/uL 1.8-7.7 [facility] Neutrophils/100 WBC Auto (Bl d)Ordered By: Viviane Loco on 12-15-2021 Neutrophils/100 WBC (Bld) 60.4 % [facility] Serum or plasma high density lipoprotein (HDL) cholesterol measurementOrdered By: Viviane Loco on 12-15-2021 Cholesterol in HDL [Mass/Vol] 33 mg/dL 35-85 [facility] Comment on above: HDL CHOL ATP-III CLA SSIFICATION Cardiovascular RiskHDL > or equal to 60 mg/dL LOWHDL < 40 mg/dL HIGH Serum or plasma total choles terol/high density lipoprotein (HDL) cholesterol mass ratOrdered By: Viviane Loco on 12-15-2021 Cholesterol.total/Chol esterol in HDL [Mass ratio] 7.9 {ratio} [facility] Triglyceride [Mass/volume] i n Serum or PlasmaOrdered By: Viviane Loco on 12-15-2021 Triglyceride [Mass/Vol] 135 mg/dL 35-149 [facility] Comment on above: TRIG ATP III CLASSIF ICATIONTRIG less than 150 mg/dL NormalTRIG 150-199 mg/dL Borderline highTRIG 200-500 mg/dL High TRIG greater than 500 mg/dL Very highStandard traceable to the Center for Disease Conrtrol and Prevention (CDC) test method. AMYLASEon 12-14-2021 Amylase [Catalytic activity/Vol] 33 U/L Normal 25-115 [facility] Comment on above: Performed By: #### A MY, LIVER, BMP, LIPA, HSTROPN ####[facility] [address] [place] [address]Dr. Jozef Marrero CBC W MANUAL DIFFon 12-15-19 22 ATYPICAL LYMPH # 2.72 103/ul Normal [facility] Comment on above: Performed By: #### C JENN ####[facility] [address] [place] [address]Dr. Jozef Marrero ATYPICAL LYMPH % 17 % Normal [facility] Comment on above: Performed By: #### C JENN ####[facility] [address] [place] [address]Dr. Jozef Marrero BAND # Normal 0.0-0.3 [facility] Comment on above: Performed By: #### C JENN ####[facility] [address] [place] [address]Dr. Jozef Marrero BAND % Normal 0-5 [facility] Comment on above: Performed By: #### C JENN ####[facility] [address] [place], [place] [address]Dr. Jozef Marrero BASOM # 0.00 103/ul Normal 0.00-0.10 [facility] Comment on above: Performed By: #### C JENN ####[facility] [address] [place] [address]Dr. Jozef Marrero BASOM % 0.0 % Critically low 0.2-2.0 [facility] Comment on above: Performed By: #### C JENN ####[facility] G[address]le[address] [place] [address]Dr. Jozef Marrero BLAST # Normal [facility] Comment on above: Performed By: #### C JENN ####[facility] [address] [place], [place] [address]Dr. Jozef Marrero BLAST % Normal [facility] Comment on above: Performed By: #### C JENN ####[facility] [address] [place], [place] [address]Dr. Jozef Marrero CORRECTED WBC Normal 4.0-11.0 [facility] Comment on above: Performed By: #### Bennett BARAJAS ####[facility] [address] [place] [phone]. Jozef Marrero EOS # 0.16 103/ul Normal 0.00-0.70 [facility] Comment on above: Performed By: #### Bennett BARAJAS ####[facility] [address]vb[address] [place] [phone]. Jozef Marrero EOS% 1.0 % Normal 0.9-7.0 [facility] Comment on above: Performed By: #### Bennett BARAJAS ####[facility] [address] [place] [phone]. Jozef Marrero HCT 45.0 % Normal 36.0-48.0 [facility] Comment on above: Performed By: #### Bennett BARAJAS ####[facility] [address]yjxui[address] [place] [phone]. Jozef Marrero HGB 15.2 g/dl Normal 12.0-16.0 [facility] Comment on above: Performed By: #### Bennett BARAJAS ####[facility] Uywuqjgnat[address] [place] [phone]. Jozef Marrero LYMPHM # 3.68 103/ul Normal 1.20-3.80 [facility] Comment on above: Performed By: #### Bennett BARAJAS ####[facility] [address]if[address]febz[address] [place] [phone]. Jozef Marrero LYMPHM% 23.0 % Normal 20.5-60.0 [facility] Comment on above: Performed By: #### Bennett BARAJAS ####[facility] Wyqfjgckxo[address] [place] [phone]. Jozef Marrero MCH 30.0 pg Normal 26.7-34.0 [facility] Comment on above: Performed By: #### Bennett BARAJAS ####[facility] [address] [place] [phone]. Jozef Marrero MCHC 33.8 g/dl Normal 29.9-35.2 [facility] Comment on above: Performed By: #### Bennett ABRAJAS ####[facility] [address] [place], [place] [address]Zu. Jozef Marrero MCV 88.9 fL Normal 81.0-99.0 [facility] Comment on above: Performed By: #### C JENN ####[facility] Qrhdommjvq4443 [place] [phone]. Jozef Marrero METAMYELOCYTE # Normal [facility] Comment on above: Performed By: #### C JENN ####[facility] U[address]sfkh[address]nt4[address] [place] [phone]. Jozef Marrero METAMYELOCYTE % Normal [facility] Comment on above: Performed By: #### C JENN ####[facility] Lbve[address]uio[address] [place] [phone]. Jozef Marrero MONOM# 0.64 103/ul Normal 0.30-0.80 [facility] Comment on above: Performed By: #### C JENN ####[facility] [address]nb[address] [place] [phone]. Jozef Marrero MONOM% 4.0 % Normal 1.7-12.0 [facility] Comment on above: Performed By: #### C JENN ####[facility] Umdhntnrko50[address] [place] [phone]. Jozef Marrero MPV 10.3 fL Normal 9.5-13.5 [facility] Comment on above: Performed By: #### C JENN ####[facility] Cqxcfmxsdm8533 [place] [phone]. Jozef Marrero MYELOCYTE # Normal [facility] Comment on above: Performed By: #### C JENN ####[facility] [address]fe[address]ft[address] [place] [phone]. Jozef Marrero MYELOCYTE % Normal [facility] Comment on above: Performed By: #### C JENN ####[facility] X[address]ldsfnpfe75[address] [place] [phone]. Jozef Marrero NRBC Normal [facility] Comment on above: Performed By: #### C JENN ####[facility] Nfoet[address]opw[address] [place] [phone]. Jozef Marrero PLT 373 103/ul Normal 150-450 [facility] Comment on above: Performed By: #### Bennett BARAJAS ####[facility] [address] [place], [place] [address]Es. Jozef Marrero RBC 5.06 106/ul Normal 4.20-5.40 [facility] Comment on above: Performed By: #### Bennett BARAJAS ####[facility] [address]zv[address] [place] [phone]. Jozef Marrero RDW 14.2 % Normal 11.0-15.0 [facility] Comment on above: Performed By: #### Bennett BARAJAS ####[facility] [address]zptrmhhmb[address] [place] [phone]. Jozef Marrero SEG # 8.80 103/ul Critically high 1.40-6.50 [facility] Comment on above: Performed By: #### Bennett BARAJAS ####[facility] Yjyzbfpqnv[address]98 [place] [phone]. Jozef Marrero SEG % 55.0 % Normal 43.0-75.0 [facility] Comment on above: Performed By: #### Bennett BARAJAS ####[facility] Cpzfhiznxm2493 [place] [phone]. Jozef Marrero WBC 16.0 103/ul Critically high 4.0-11.0 [facility] Comment on above: Performed By: #### Bennett BARAJAS ####[facility] [address]ws[address] [place] [phone]. Jozef Marrero [facility]26 SARS-CoV-2 (COVID-19) RNA NEVA+probe Ql (Unsp spec) Not detected Normal NOT DETECTED [facility] Comment on above: Result Comment: When diagnostic testing is negative, the possibility of a false negative should be considered in the context of a patient's recent exposures and the presence of clinical signs and symptoms consistent with SARS-CoV-2. This test is not yet approved or cleared by the [place] FDA. When there are no FDA-approved or cleared tests available, and other criteria are met, FDA can make tests available under an emergency access mechanism called an Emergency Use Authorization (EUA). The EUA for this test is supported by the [employer] Curator of Health and Human Service's declaration that circumstances exist to justify the emergency use of in vitro diagnostics for the detection and/or diagnosis of the virus that causes COVID-19. This EUA will remain in effect for the duration of the COVID-19 declaration justifying emergency of IVDs, unless it is terminated or revoked by the FDA (after which the test may no longer be used). Performed By: #### C VDTBH #### [facility] [address] [place] [address] Dr. Jozef Marrero LIPASEon 12-14-2021 Lipase [Catalytic activity/Vol] 49.0 U/L Normal 23.0-300.0 [facility] Comment on above: Performed By: #### A MY, LIVER, BMP, LIPA, HSTROPN #### [facility] [address] [place] [address] Dr. Jozef Marrero LIVER PROFILEon 12-14-2021 Albumin [Mass/Vol] 4.0 g/dL Normal 3.4-5.0 [facility] Comment on above: Performed By: #### A MY, LIVER, BMP, LIPA, HSTROPN #### [facility] [address] [place] [address] Dr. Jozef Marrero Albumin/Globulin [Mass ratio] 0.9 {ratio} Normal [facility] Comment on above: Performed By: #### A MY, LIVER, BMP, LIPA, HSTROPN #### [facility] [address] [place] [address] Dr. Jozef Marrero ALP [Catalytic activity/Vol] 143 U/L Critically high 46-116 [facility] Comment on above: Performed By: #### A MY, LIVER, BMP, LIPA, HSTROPN #### [facility] [address] [place] [address] Dr. Jozef Marrero ALT [Catalytic activity/Vol] 21 U/L Normal 14-59 [facility] Comment on above: Performed By: #### A MY, LIVER, BMP, LIPA, HSTROPN #### [facility] [address] [place] [address] Dr. Jozef Marrero AST [Catalytic activity/Vol] 70 U/L Critically high 15-37 [facility] Comment on above: Performed By: #### A MY, LIVER, BMP, LIPA, HSTROPN #### [facility] [address] [place] [address] Dr. Jozef Marrero BILI, CONJUGATED 0.1 mg/dL Normal 0.0-0.3 [facility] Comment on above: Performed By: #### A MY, LIVER, BMP, LIPA, HSTROPN #### [facility] [address] [place] [address] Dr. Jozef Marrero Bilirubin [Mass/Vol] 0.4 mg/dL Normal 0.2-1.3 [facility] Comment on above: Performed By: #### A MY, LIVER, BMP, LIPA, HSTROPN #### [facility] [address] [place] [address] Dr. Jozef Marrero Globulin (S) [Mass/Vol] 4.4 g/dL Normal [facility] Comment on above: Performed By: #### A MY, LIVER, BMP, LIPA, HSTROPN #### [facility] [address] [place] [address] Dr. Jozef Marrero Protein [Mass/Vol] 8.4 g/dL Critically high 6.1-8.2 [facility] Comment on above: Performed By: #### A MY, LIVER, BMP, LIPA, HSTROPN #### [facility] [address] [place] [address] Dr. Jozef Marrero Laboratory - Chemistry and C hemistry - challengeOrdered By: Viviane Loco on 12-14-2021 Magnesium [Mass/Vol] 1.8 mg/dL 1.6-2.6 [facility] PROF CHEM 8 (BAS METB)on Anion gap [Moles/Vol] 14.0 mmol/L Normal [facility] Comment on above: Performed By: #### A MY, LIVER, BMP, LIPA, HSTROPN #### [facility] [address] [address] [address] Jozef Marrero Calcium [Mass/Vol] 9.4 mg/dL Normal 8.5-10.1 [facility] Comment on above: Performed By: #### A MY, LIVER, BMP, LIPA, HSTROPN #### [facility] [address] [address] [address] Jozef Marrero Chloride [Moles/Vol] 102 mmol/L Normal 98-107 [facility] Comment on above: Performed By: #### A MY, LIVER, BMP, LIPA, HSTROPN #### [facility] [address] [address] [address] Jozef Marrero CO2 [Moles/Vol] 26.4 mmol/L Normal 22.0-30.0 [facility] Comment on above: Performed By: #### A MY, LIVER, BMP, LIPA, HSTROPN #### [facility] [address] [place] [address] Dr. Jozef Marrero Creatinine [Mass/Vol] 0.69 mg/dL Normal 0.52-1.04 [facility] Comment on above: Performed By: #### A MY, LIVER, BMP, LIPA, HSTROPN #### [facility] [address] [place] [address] Dr. Jozef Marrero EGFR-AF BOLIVIAN >60 Normal >=60 [facility] Comment on above: Performed By: #### A MY, LIVER, BMP, LIPA, HSTROPN #### [facility] [address] [place] [address] Dr. Jozef Marrero EGFR-NON AF BOLIVIAN >60 Normal >=60 [facility] Comment on above: Performed By: #### A MY, LIVER, BMP, LIPA, HSTROPN #### [facility] [address] [place] [address] Dr. Jozef Marrero Glucose [Mass/Vol] 111 mg/dL Critically high 74-106 [facility] Comment on above: Performed By: #### A MY, LIVER, BMP, LIPA, HSTROPN #### [facility] [address] [address] [address] Jozef Marrero Potassium [Moles/Vol] 3.4 mmol/L Normal 3.4-5.0 [facility] Comment on above: Performed By: #### A MY, LIVER, BMP, LIPA, HSTROPN #### [facility] [address] [address] [address] Jozef Marrero Sodium [Moles/Vol] 139 mmol/L Normal 137-145 [facility] Comment on above: Performed By: #### A MY, LIVER, BMP, LIPA, HSTROPN #### [facility] [address] [address] [address] Jozef Marrero Urea nitrogen [Mass/Vol] 8.0 mg/dL Normal 7.0-18.0 [facility] Comment on above: Performed By: #### A MY, LIVER, BMP, LIPA, HSTROPN #### [facility] [address] [address] [address] Jozef Marrero Urea nitrogen/Creatinine [Mass ratio] 11.6 mg/mg Normal [facility] Comment on above: Performed By: #### A MY, LIVER, BMP, LIPA, HSTROPN #### [facility] [address] [address] [address] Jozef Marrero PROTIMEon 12-14-2021 INR Coag (PPP) [Relative time] 1.05 {INR} Normal [facility] Comment on above: Performed By: #### P TT, PT ####[facility] [address] [place] [address]Dr. Jozef Marrero INR GUIDELINES SEE BELOW Normal [facility] Comment on above: Result Comment: CAMILA RED INR: 2.0 - 3.0 CONDITIONS NOT LISTED BELOW 2.5 - 3.5 FOR PROSTHETIC HEART VALVE REPLACEMENT 2.5 - 3.5 RECURRENT THROMBOSIS Performed By: #### P TT, PT ####[facility] [address] [place] [address]Dr. Jozef Marrero PT Coag (PPP) [Time] 11.3 s Normal 9.0-11.6 [facility] Comment on above: Performed By: #### P TT, PT ####[facility] [address] [place], [place] [address]Lo. Jozef Marrero PTTon 12-14-2021 aPTT Coag (Bld) [Time] 33.0 s Normal 22.3-36.2 [facility] Comment on above: Performed By: #### P TT, PT ####[facility] [address] [place], [place] [address]Rg. Jozef Marrero TROPONIN, HIGH SENSITIVITYon 12-14-2021 HSTROP 5000.2 pg/mL Critically high 4.0-35.5 [facility] Comment on above: Result Comment: CUT- OFF POINTS HAVE BEEN ESTABLISHED BASED ON THE FOURTH UNIVERSAL DEFINITIONS OF MYOCARDIAL INFARCTION. THE UPPER REFERENCE LIMIT (URL) OF TROPONIN, DEFINED THE 99TH PERCENTILE OF cTnI DISTRIBUTION IN A REFERENCE POPULATION, HAS BEEN CONFIRMED THE DECISION THRESHOLD FOR AK DIAGNOSIS. test repeated critical value verified Performed By: #### A MY, LIVER, BMP, LIPA, HSTROPN ####[facility] [address] [place], [place] [address]Kn. Jozef Marrero US SINGLE QUAD RT UPPERon US SINGLE QUAD RT UPPER EXAMINATION: US SINGLE QUAD RT UPPER HISTORY: Pain , chest pain for 4 days COMPARISON: No relevant comparison available. TECHNIQUE: Transabdominal evaluation of the right upper quadrant. FINDINGS: LIVER: Mild fatty infiltration. Color Doppler demonstrates patent hepatic veins. PORTAL VEIN: Duplex Doppler demonstrates normal hepatopetal flow pattern with flow velocity averaging 36 cm/s. GALLBLADDER: No visible gallstones, wall thickening, or pericholecystic free fluid. Negative sonographic May's sign. BILIARY: No abnormal dilation or stones. Common bile duct diameter is within normal limits. PANCREASE: No visible mass, abnormal atrophy, or duct dilation. KIDNEY: No hydronephrosis. No visible mass or stones. Size: 9.7 x 5.1 x 6.6 cm IMPRESSION: 1. No acute or suspicious findings to account for patient's symptoms. Electronically authenticated by: MARIANN MARQUES Date: 2021-12-14 14:13 Normal [facility] XR CHEST 1 Von 12-14-2021 XR CHEST 1 V EXAM: XR CHEST 1 V HISTORY: CHEST PAIN, UNSPECIFIED COMPARISON: None. TECHNIQUE: Single frontal view of the chest. FINDINGS: Tubes/lines/devices: None. Lungs: Adequate inflation. No evidence of pneumonia or pulmonary edema. Pleura: No pneumothorax. No pleural effusion. Heart and mediastinum: No enlargement of the cardiomediastinal silhouette. Aortic atherosclerosis. Bones/soft tissues: No acute osseous findings. Unremarkable soft tissues. Abdomen: Unremarkable. IMPRESSION: No acute pulmonary findings. Electronically authenticated by: YESIKA URBINA Date: 2021-12-14 13:23 Normal [facility] Vital Signs Date Time Vital Sign Value Performing Clinician Facility 07-13-2023 13:12-0500 Body temperature 96.91 [degF] Saleem Fitch MD Work Phone: [facility] 07-13-2023 13:12-0500 Body weight 70.31 kg Saleem Fitch MD Work Phone: [facility] 07-13-2023 13:12-0500 Diastolic blood pressure 67 mm[Hg] Saleem Fitch MD Work Phone: [facility] 07-13-2023 13:12-0500 Heart rate 76 /min Saleem Fitch MD Work Phone: [facility] 07-13-2023 13:12-0500 Respiratory rate 18 /min Saleem Fitch MD Work Phone: [facility] 07-13-2023 13:12-0500 SaO2% (BldA) [Mass fraction] 98 % Saleem Fitch MD Work Phone: [facility] 07-13-2023 13:12-0500 Systolic blood pressure 103 mm[Hg] Saleem Fitch MD Work Phone: [facility] 07-10-2023 10:42-0500 Body height 162.6 cm Isabel DUEÑAS Work Phone: [facility] 07-10-2023 10:42-0500 Body mass index (BMI) [Ratio] 26.09 kg/m2 Isabel DUEÑAS Work Phone: [facility] 07-10-2023 10:42-0500 Body weight 68.95 kg Isabel Cagle [employer] Work Phone: [facility] 07-10-2023 10:42-0500 Diastolic blood pressure 68 mm[Hg] Isabel Cagle [employer] Work Phone: [facility] 07-10-2023 10:42-0500 Heart rate 74 /min Isabel Cagle [employer] Work Phone: [facility] 07-10-2023 10:42-0500 Systolic blood pressure 110 mm[Hg] Isabel Cagle [employer] Work Phone: [facility] 05-03-2023 12:19-0400 Body temperature 96.91 [degF] Saleem Fitch MD Work Phone: [facility] 05-03-2023 12:19-0400 Body weight 72.85 kg Saleem Fitch MD Work Phone: [facility] 05-03-2023 12:19-0400 Diastolic blood pressure 59 mm[Hg] Saleem Fitch MD Work Phone: [facility] 05-03-2023 12:19-0400 Heart rate 64 /min Saleem Fitch MD Work Phone: [facility] 05-03-2023 12:19-0400 Respiratory rate 18 /min Saleem Fitch MD Work Phone: [facility] 05-03-2023 12:19-0400 SaO2% (BldA) [Mass fraction] 98 % Saleem Fitch MD Work Phone: [facility] 05-03-2023 12:19-0400 Systolic blood pressure 91 mm[Hg] Saleem Fitch MD Work Phone: [facility] 04-26-2023 12:31-0400 Body temperature 97.11 [degF] Saleem Fitch MD Work Phone: [facility] 04-26-2023 12:31-0400 Body weight 72.94 kg Saleem Fitch MD Work Phone: [facility] 04-26-2023 12:31-0400 Diastolic blood pressure 72 mm[Hg] Saleem Fitch MD Work Phone: [facility] 04-26-2023 12:31-0400 Heart rate 56 /min Saleem Fitch MD Work Phone: [facility] 04-26-2023 12:31-0400 Respiratory rate 16 /min Saleem Fitch MD Work Phone: [facility] 04-26-2023 12:31-0400 SaO2% (BldA) [Mass fraction] 98 % Saleem Fitch MD Work Phone: [facility] 04-26-2023 12:31-0400 Systolic blood pressure 106 mm[Hg] Saleem Fitch MD Work Phone: [facility] 04-19-2023 10:14-0400 Body temperature 96.91 [degF] Saleem Fitch MD Work Phone: [facility] 04-19-2023 10:14-0400 Body weight 72.12 kg Saleem Fitch MD Work Phone: [facility] 04-19-2023 10:14-0400 Diastolic blood pressure 76 mm[Hg] Saleem Fitch MD Work Phone: [facility] 04-19-2023 10:14-0400 Heart rate 64 /min Saleem Fitch MD Work Phone: [facility] 04-19-2023 10:14-0400 Respiratory rate 18 /min Saleem Fitch MD Work Phone: [facility] 04-19-2023 10:14-0400 SaO2% (BldA) [Mass fraction] 98 % Saleem Fitch MD Work Phone: [facility] 04-19-2023 10:14-0400 Systolic blood pressure 112 mm[Hg] Saleem Fitch MD Work Phone: [facility] 04-05-2023 12:23-0400 Body temperature 98.01 [degF] Saleem Fitch MD Work Phone: [facility] 04-05-2023 12:23-0400 Body weight 72.58 kg Saleem Fitch MD Work Phone: [facility] 04-05-2023 12:23-0400 Diastolic blood pressure 76 mm[Hg] Saleem Fitch MD Work Phone: [facility] 04-05-2023 12:23-0400 Heart rate 73 /min Saleem Fitch MD Work Phone: [facility] 04-05-2023 12:23-0400 Respiratory rate 18 /min Saleem Fitch MD Work Phone: [facility] 04-05-2023 12:23-0400 SaO2% (BldA) [Mass fraction] 98 % Saleem Fitch MD Work Phone: [facility] 04-05-2023 12:23-0400 Systolic blood pressure 116 mm[Hg] Saleem Fitch MD Work Phone: [facility] 03-28-2023 14:48-0400 Body temperature 96.91 [degF] Saleem Fitch MD Work Phone: [facility] 03-28-2023 14:48-0400 Diastolic blood pressure 67 mm[Hg] Saleem Fitch MD Work Phone: [facility] 03-28-2023 14:48-0400 Heart rate 74 /min Saleem Fitch MD Work Phone: [facility] 03-28-2023 14:48-0400 Respiratory rate 18 /min Saleem Fitch MD Work Phone: [facility] 03-28-2023 14:48-0400 SaO2% (BldA) [Mass fraction] 96 % Saleem Fitch MD Work Phone: [facility] 08-01-2023 14:48-0400 Systolic blood pressure 100 mm[Hg] Saleem Fitch MD Work Phone: [facility] 12-30-2022 14:50-0400 Diastolic blood pressure 75 mm[Hg] DO Aris House Work Phone: [facility] 12-30-2022 14:50-0400 Heart rate 67 /min DO Aris House Work Phone: [facility] 12-30-2022 14:50-0400 Respiratory rate 14 /min DO Aris Stewart Work Phone: [facility] 12-30-2022 14:50-0400 SaO2% (BldA) [Mass fraction] 99 % DO Aris Stewart Work Phone: [facility] 12-30-2022 14:50-0400 Systolic blood pressure 122 mm[Hg] DO Aris Stewart Work Phone: [facility] 12-30-2022 13:50-0400 Body temperature 97.7 [degF] DO Aris Stewart Work Phone: [facility] 12-30-2022 11:36-0400 Body height 162.56 cm DO Aris Stewart Work Phone: [facility] 12-30-2022 11:36-0400 Body weight 76.65 kg DO Aris Stewart Work Phone: [facility] 12-28-2022 11:26-0400 Body height 162.56 cm Aris P House Work Phone: [facility] 250 DO Work Phone: 12-28-2022 11:26-0400 Body mass index (BMI) [Ratio] 29.01 kg/m2 Aris P House Work Phone: [facility] 250 DO Work Phone: 12-28-2022 11:26-0400 Body surface area Derived from formula 1.82 m2 Aris P House Work Phone: [facility] 250 DO Work Phone: 12-28-2022 11:26-0400 Body weight 76.66 kg Aris P House Work Phone: [facility] 250 DO Work Phone: 12-28-2022 11:26-0400 Diastolic blood pressure 68 mm[Hg] Aris P House Work Phone: [facility] 250 DO Work Phone: 12-28-2022 11:26-0400 Heart rate 68 /min Aris P House Work Phone: [facility] 250 DO Work Phone: 12-28-2022 11:26-0400 Systolic blood pressure 132 mm[Hg] Aris P House Work Phone: [facility] [address] DO Work Phone: 05-05-2022 11:41-0400 Body height 162.56 cm Aris P House Work Phone: [facility] 250 DO Work Phone: 05-05-2022 11:41-0400 Body mass index (BMI) [Ratio] 25.92 kg/m2 Aris P House Work Phone: [facility] 250 DO Work Phone: 05-05-2022 11:41-0400 Body surface area Derived from formula 1.74 m2 Aris P House Work Phone: [facility] 250 DO Work Phone: 05-05-2022 11:41-0400 Body weight 68.49 kg Aris P House Work Phone: [facility] [address] DO Work Phone: 05-05-2022 11:41-0400 Diastolic blood pressure 82 mm[Hg] Aris P House Work Phone: [facility] 250 DO Work Phone: 05-05-2022 11:41-0400 Heart rate 80 /min Aris P House Work Phone: [facility] 250 DO Work Phone: 05-05-2022 11:41-0400 Systolic blood pressure 120 mm[Hg] Aris P House Work Phone: [facility] 250 DO Work Phone: 02-22-2022 09:45-0400 0 1 Aris P House Work Phone: [facility] 250 DO Work Phone: Comment on above: [id number] 01-25-2022 15:28-0400 Body height 162.56 cm Aris P House Work Phone: [facility] Work Phone: 01-25-2022 15:28-0400 Body mass index (BMI) [Ratio] 23.86 kg/m2 Aris P House Work Phone: [facility] Work Phone: 01-25-2022 15:28-0400 Body surface area Derived from formula 1.68 m2 Aris P House Work Phone: [facility] Work Phone: 01-25-2022 15:28-0400 Body weight 63.05 kg Aris P House Work Phone: [facility] Work Phone: 01-25-2022 15:28-0400 Diastolic blood pressure 76 mm[Hg] Aris P House Work Phone: [facility] Work Phone: 01-25-2022 15:28-0400 Heart rate 72 /min Aris P House Work Phone: [facility] Work Phone: 01-25-2022 15:28-0400 Systolic blood pressure 122 mm[Hg] Aris Edwards House Work Phone: [facility] Work Phone: 01-25-2022 15:28-0400 12 1 Aris Edwards House Work Phone: [facility] Work Phone: Comment on above: PHQ-9 TS 12-16-2021 16:00-0400 Body temperature 98.5 [degF] MD Viviane Loco Work Phone: [facility] 12-16-2021 16:00-0400 Diastolic blood pressure 90 mm[Hg] MD Viviane Loco Work Phone: [facility] 12-16-2021 16:00-0400 Heart rate 70 /min MD Viviane Loco Work Phone: [facility] 12-16-2021 16:00-0400 SaO2% (BldA) [Mass fraction] 100 % MD Viviane Loco Work Phone: [facility] 12-16-2021 16:00-0400 Systolic blood pressure 131 mm[Hg] MD Viviane Loco Work Phone: [facility] 12-16-2021 08:00-0400 Respiratory rate 18 /min MD Viviane Loco Work Phone: [facility] 12-16-2021 06:00-0400 Body weight 62.5 kg MD Viviane Loco Work Phone: [facility] 12-15-2021 11:00-0400 Body height 162.56 cm MD Viviane Loco Work Phone: [facility] 12-14-2021 16:55-0400 Body mass index (BMI) [Ratio] 25.4 kg/m2 MD Viviane Loco Work Phone: [facility] Encounters Encounter Date Encounter Type Care Provider Facility Start: 08-03-2023 End: 08-03-2023 ambulatory SHAIKH ABBY Not Available Start: 07-13-2023 End: 07-13-2023 ambulatory ARIS STEWART SR Facility:[facility] Start: 07-13-2023 End: 07-13-2023 Patient encounter procedure Saleem Fitch MD Work Phone: Radiation Oncology Comment on above: Neoplasm of lung (Pr imary Dx) Start: 07-10-2023 End: 07-10-2023 ambulatory [facility] Ambulatory Start: 07-10-2023 End: 07-10-2023 Office outpatient visit 15 minutes [facility] MACHINE BENDER-TURKEY PICKER Work Phone: [facility] Comment on above: SVT (supraventricula r tachycardia) (Primary Dx); Hypertrophic nonobstructive cardiomyopathy (CMS/HCC); ASHD (arteriosclerotic heart disease); Essential hypertension; Mixed hyperlipidemia; Angina pectoris (CMS/HCC); Non-small cell cancer of left lung (CMS/HCC); BMI 26.0-26.9,adult Start: 06-19-2023 End: 06-20-2023 ambulatory [facility] Start: 06-19-2023 End: 06-19-2023 ambulatory [facility] Start: 06-15-2023 ambulatory [facility] Start: 06-13-2023 End: 06-14-2023 ambulatory [facility] Start: 05-11-2023 End: 05-11-2023 ambulatory ARIS STEWART SR Facility:[facility] Start: 05-11-2023 Patient encounter procedure Saleem Fitch MD Work Phone: SANDR[facility] Start: 05-11-2023 Radiation Oncology Note Saleem waldrop MD Work Phone: Radiation Oncology Comment on above: Completion Note Start: 05-10-2023 End: 05-10-2023 ambulatory ARIS STEWART SR Facility:[facility] Start: 05-09-2023 End: 05-09-2023 ambulatory ARIS STEWART SR Facility:[facility] Start: 05-08-2023 End: 05-08-2023 ambulatory ARIS STEWART SR Facility:[facility] Start: 05-05-2023 End: 05-05-2023 ambulatory ARIS STEWART SR Facility:[facility] Start: 05-04-2023 End: 05-04-2023 ambulatory ARIS STEWART SR Facility:[facility] Start: 05-03-2023 End: 05-03-2023 ambulatory ARIS STEWART SR Facility:[facility] Start: 05-03-2023 End: 05-03-2023 Patient encounter procedure Saleem Fitch MD Work Phone: Radiation Oncology Comment on above: Neoplasm of lung (Pr imary Dx) Start: 05-02-2023 End: 05-02-2023 ambulatory ARIS STEWART SR Facility:[facility] Start: 04-28-2023 End: 04-28-2023 ambulatory ARIS STEWART SR Facility:[facility] Start: 04-27-2023 End: 04-27-2023 ambulatory ARIS STEWART SR Facility:[facility] Start: 04-26-2023 End: 04-26-2023 ambulatory ARIS STEWART SR Facility:[facility] Start: 04-26-[address] Brett Gongora Facility: Start: 04-26-2023 End: 04-26-2023 Patient encounter procedure Saleem Fitch MD Work Phone: Radiation Oncology Comment on above: Smoking greater than 40 pack years (Primary Dx); Neoplasm of lung Start: 04-25-2023 End: 04-25-2023 ambulatory ARIS STEWART SR Facility:[facility] Start: 04-21-2023 End: 04-21-2023 ambulatory ARIS STEWART SR Facility:[facility] Start: 04-19-2023 End: 04-19-2023 ambulatory ARIS STEWART SR Facility:[facility] Start: 04-19-2023 End: 04-19-2023 Patient encounter procedure Saleem Fitch MD Work Phone: Radiation Oncology Comment on above: Neoplasm of lung (Pr imary Dx) Start: 04-18-2023 End: 04-18-2023 ambulatory ARIS CHAU HOUSE SR Facility:[facility] Start: 04-18-2023 Patient encounter procedure Bri Bernard LMT Hematology/Oncology Comment on above: Muscle soreness (Kelli cuate Dx) Start: 04-17-2023 End: 04-17-2023 ambulatory ARIS STEWART SR Facility:[facility] Start: 04-14-2023 End: 04-14-2023 ambulatory ARIS STEWART SR Facility:[facility] Start: 04-13-2023 End: 04-13-2023 ambulatory ARIS STEWART SR Facility:[facility] Start: 04-12-2023 End: 04-12-2023 ambulatory ARIS STEWART SR Facility:[facility] Start: 04-11-2023 End: 04-11-2023 ambulatory ARIS STEWART SR Facility:[facility] Start: 04-11-2023 Telephone encounter Saleem Fitch MD Work Phone: Radiation Oncology Comment on above: Missed Appointment Start: 04-10-2023 End: 04-10-2023 ambulatory ARIS STEWART SR Facility:[facility] Start: 04-07-2023 End: 04-07-2023 ambulatory ARIS STEWATR SR Facility:[facility] Start: 04-06-2023 End: 04-06-2023 ambulatory ARIS STEWART SR Facility:[facility] Start: 04-05-2023 End: 04-05-2023 ambulatory ARIS STEWART SR Facility:[facility] Start: 04-05-2023 End: 04-05-2023 Patient encounter procedure Saleem Fitch MD Work Phone: Radiation Oncology Comment on above: Neoplasm of lung (Pr imary Dx) Start: 04-04-2023 End: 04-04-2023 ambulatory ARIS ISAC HOUSE SR Facility:[facility] Start: 04-03-2023 End: 04-03-2023 ambulatory ARIS STEWART SR Facility:[facility] Start: 03-31-2023 End: 03-31-2023 ambulatory ARIS STEWART SR Facility:[facility] Start: 03-30-2023 End: 03-30-2023 ambulatory [facility] Facility:[facility] Start: 03-29-2023 End: 03-29-2023 ambulatory [facility] SR Facility:[facility] Start: 03-28-2023 End: 03-28-2023 Nursing evaluation of patient and report Nurse Kristyn Flores Work Phone: Radiation Oncology Comment on above: Neoplasm of lung (Pr imary Dx) Start: 03-28-2023 End: 03-28-2023 Patient encounter procedure Saleem Fitch MD Work Phone: Radiation Oncology Comment on above: Malignant neoplasm o f left lung, unspecified part of lung (HCC) (Primary Dx) Start: 03-28-2023 End: 03-29-2023 ambulatory Toney Bailon LPN Radiation Oncology Comment on above: Patient Education Start: 03-23-2023 Telephone encounter Saleem Fitch MD Work Phone: Hematology/Oncology Comment on above: Appointment Start: 03-17-2023 End: 03-20-2023 ambulatory [facility] SR Facility:[facility] Start: 03-17-2023 End: 03-20-2023 Patient encounter procedure Saleem Fitch MD Work Phone: [employer] Comment on above: Neoplasm of lung (Pr imary Dx) Start: 03-17-2023 Radiation Oncology Note Saleem waldrop MD Work Phone: Radiation Oncology Comment on above: Simulation Note Treatment Planning Start: 03-15-2023 End: 03-15-2023 ambulatory [facility] Facility:[facility] Start: 03-14-2023 Telephone encounter Stan tracey MD, PhD Work Phone: [facility] Comment on above: Received Outside Med ical Records Start: 03-10-2023 End: 03-11-2023 ambulatory [facility] Start: 03-10-2023 End: 03-10-2023 ambulatory [facility] Start: 03-08-2023 Telephone encounter Saleem Fitch MD Work Phone: Radiation Oncology Comment on above: Patient Update; Card iac Clearance External Referrals/r esources; Consult Start: 03-08-2023 End: 03-08-2023 ambulatory ARCHANA RODRIGUEZ Facility:[facility] Start: 03-03-2023 End: 03-04-2023 ambulatory [facility] Start: 03-03-2023 End: 03-03-2023 ambulatory [facility] Start: 02-22-2023 End: 02-23-2023 ambulatory [facility] Start: 12-30-[address] Brett Gongora Facility:[id number] Start: 12-30-2022 [facility] Provider: Brett Gongora, Status: Pen, Time: 12:00 PM Aris P House Work Phone: [facility] 250 DO Work Phone: Start: 12-30-2022 End: 12-30-2022 ambulatory Aris Stewart Facility:[facility] Start: 12-30-2022 End: 12-30-2022 Admission to same day surgery center DO Aris House Work Phone: [facility] Work Phone: Start: 12-30-2022 End: 12-30-2022 ambulatory DO Aris House Work Phone: [facility] Work Phone: Start: 12-28-2022 Office outpatient vi sit 40 minutes Aris P House Work Phone: [facility] 250 DO Work Phone: Start: 12-28-[address] Brett Gongora Facility: Start: 11-10-[address] Brett Gongora Facility: Start: 08-11-2022 End: 08-12-[address] ARIS STEWART Facility:[facility] Start: 06-23-2022 End: 06-23-2022 ambulatory LUCIO WEST Facility:[facility] Start: 05-05-[address] Brett Gongora Facility: Start: 05-05-2022 Office outpatient vi sit 25 minutes Aris Stewart Work Phone: [facility] 250 DO Work Phone: Start: 03-01-2022 Chart Update Aris P Hous e Work Phone: [facility] 250 DO Work Phone: Start: 02-22-2022 Patient encounter procedure Aris Stewart Work Phone: [facility] 250 DO Work Phone: Start: 02-21-2022 End: 02-22-[address] ARIS STEWART Facility:[facility]1 Start: 02-18-2022 End: 02-18-2022 ambulatory ALLY SANTORO Facility:[facility] Start: 02-17-2022 End: 02-17-2022 ambulatory LUCIO WEST Facility:[facility] Start: 01-28-2022 End: 04-07-[address] BRETT GONGORA Facility:[facility] Start: 01-26-2022 End: 01-26-[address] BRETT GONGORA Facility:[facility] Start: 01-25-2022 Office outpatient vi sit 40 minutes Aris Stewart Work Phone: [facility] Work Phone: Start: 12-15-2021 End: 12-16-2021 Evaluation and management of inpatient MD Viviane Loco Work Phone: [facility] [place] [facility] Start: 12-14-2021 End: 12-14-2021 ambulatory ALLY SANTORO Facility:[facility] Procedures Date Procedure Procedure Detail Performing Clinician Start: 07-11-2023 Ecg routine ecg w/least 12 lds w/i&r Isabel Cagle MACHINE BENDER-TURKEY PICKER Work Phone: Start: 12-30-2022 CL Iliac/Fem w/LHC DO Aris Stewart Work Phone: Start: 12-30-2022 CL LHC & COR Angio DO Aris Stewart Work Phone: Start: 02-22-2022 Echocardiography Aris Stewart Work Phone: Start: 12-15-2021 CL LHC & COR Angio MD Viviane Loco Work Phone: Start: 12-15-2021 CL PTCA Ea Add CX MD Viviane Loco Work Phone: Start: 12-15-2021 CL Stent 1st Vessel CX SAMI MD Viviane salamanca Work Phone: Start: 12-15-2021 CL Stent 1st Vessel RCA SAMI MD Viviane lira Work Phone: Start: 12-15-2021 MD Viviane Loco Work Phone: Appendectomy Aris P [employer] Work Phone: Hernia repair Aris Edwards Hous e Work Phone: History of placement of stent for coronary artery disease History of heart artery stent DO Aris [employer] Work Phone: Hysterectomy Aris P Pat Work Phone: Operation on breast Aris P [employer] Work Phone: Operation on colon Aris P [employer] Work Phone: Total colonoscopy Aris P [employer] Work Phone: Plan of Treatment Date Care Activity Detail Author Start: 06-19-2024 Diabetes mellitus screening Diabetes Screening [facility] Start: 01-09-2024 End: 01-09-2024 Patient encounter procedure 01/09/2024 9:30 AM EDT Office Visit [facility] [address] [place] [address] Brett Gongora DO [address] [facility] [address] [place] [address] [facility] Start: 07-10-2023 End: 07-10-2024 Basic metabolic 2000 panel - Serum or Plasma Basic Metabolic Panel Lab Routine SVT (supraventricular tachycardia) Hypertrophic nonobstructive cardiomyopathy (CMS/HCC) Expected: 07/10/2023 (Approximate), Expires: 07/10/2024 [facility] Work Phone: Comment on above: Expected: 07/10/2023 (Approximate), Expires: 07/10/2024 Start: 04-28-2023 Influenza vaccination C [facility] Start: 02-08-2023 FUV, Provider: Brett Gongora, Status: Pen, Time: 10:00 AM FUV, Provider: Brett Gongora, Status: Pen, Time: 10:00 AM [facility] DO Work Phone: Start: 12-30-2022 End: 12-30-2022 [facility] Start: 11-10-2022 FUV, Provider: Brett Gongora, Status: Pen, Time: 10:00 AM FUV, Provider: Brett Gongora, Status: Pen, Time: 10:00 AM [facility] DO Work Phone: Start: 08-28-2022 DEPRESSION ASSESSMENT DEPRESSION ASS ESSMENT [facility] Start: 05-05-2022 FUV, Provider: Brett Gongora, Status: Pen, Time: 11:20 AM FUV, Provider: Brett Gongora, Status: Pen, Time: 11:20 AM [facility] Work Phone: Start: 02-22-2022 HOLTER 48, Provider: XENA BARRETT HOUSEKEEPING MANAGER 1,[id number], Status: Pen, Time: 10:30 AM HOLTER 48, Provider: XENA BARRETT HOUSEKEEPING MANAGER 1,[id number], Status: Pen, Time: 10:30 AM [facility] Work Phone: Start: 02-22-2022 ECHO, Provider: SANDRA HHVI ULTRASOUND 01,[id number], Status: Pen, Time: 9:45 AM ECHO, Provider: SANDRA HHVI ULTRASOUND 01,[id number], Status: Pen, Time: 9:45 AM [facility] Work Phone: Start: 2017 SHINGRIX VACCINE (1 of 2) SHINGRIX VACCINE (1 of 2) [facility] Start: 2017 Zoster Vaccines (1 o f 2) Zoster Vaccines (1 of 2) [facility] Start: 2012 COLOGUARD (FIT-DNA) COLOGUARD (FIT-D NA) [facility] Start: 2012 Colonoscopy COLONOSCOPY [facility] Start: 2012 COLORECTAL CANCER SCREENING COLORECTAL CANCER SCREENING [facility] Start: [address] COLONOGRAPHY [facility] Start: 2012 DIABETES SCREEN [facility]EN [facility] Start: 2012 Diabetes Screening Diabetes Screenin g [facility] Start: 2012 FECAL OCCULT BLOOD FECAL OCCULT BLOO D [facility] Start: 2012 Lipid 1996 panel - Serum or Plasma Lipid Screening [facility] Start: 2012 LIPID SCREEN LIPID SCREEN [facility] Start: [address] [facility] Start: 2007 Mammography [facility] Start: 2007 Screening for malign ant neoplasm of breast Mammogram [facility] Start: 1997 HPV TESTING HPV TESTING [facility] Start: 1989 DTaP/Tdap/Td Vaccine s (1 - Tdap) DTaP/Tdap/Td Vaccines (1 - Tdap) [facility] Start: 1988 PAP TESTING PAP TESTING [facility] Start: 1988 Screening for malign ant neoplasm of cervix [facility] Start: 1986 Urine microalbumin profile [facility] Start: 1985 HEPATITIS C SCREENING HEPATITIS C [facility] Start: 1985 Hepatitis C screening Hepatitis C [facility] Start: 1985 HIV SCREENING HIV SCREENING [facility] Start: 1973 PNEUMOCOCCAL (1 - PCV) PNEUMOCOCCAL (1 - PCV) [facility] Start: 1973 Pneumococcal vaccination Pneumococcal Vaccine (1 - PCV) [facility] Start: 1973 Pneumococcal Vaccine : Pediatrics (0 to 5 Years) and At-Risk Patients (6 to 64 Years) (1 - PCV) Pneumococcal Vaccine: Pediatrics (0 to 5 Years) and At-Risk Patients (6 to 64 Years) (1 - PCV) [facility] Start: 1968 MMR Vaccines (1 of 1 - Standard series) MMR Vaccines (1 of 1 - Standard series) [facility] Start: 04-09-1968 COVID-19 VACCINE (#1) COVID-19 VACCI NE (#1) [facility] Start: 1967 HEPATITIS B (1 of 3 - 3-dose series) HEPATITIS B (1 of 3 - 3-dose series) [facility] Start: 1967 Hepatitis B Vaccine (1 of 3 - 3-dose series) Hepatitis B Vaccine (1 of 3 - 3-dose series) [facility] Start: 1967 Hepatitis B Vaccines (1 of 3 - 3-dose series) Hepatitis B Vaccines (1 of 3 - 3-dose series) [facility] Start: 1967 HIV screening HIV Screening [facility] Start: 1967 Lipid panel Lipid Panel [facility] Start: 1967 Screening for malign ant neoplasm of colon [facility] Start: 1967 Yearly Adult Physical Yearly Adult P hysical [facility] CT SIM PLANNING RADIATION ONCOLOGY CT SIM PLANNING RADIATION ONCOLOGY Radiology Routine Neoplasm of lung Ordered: 03/17/2023 [facility] Work Phone: Comment on above: Ordered: 03/17/2023 ECG 12 Lead ECG 12 Lead ECG Routine SVT (supraventricular tachycardia) 07/11/2023 1:33 PM EST [facility] Work Phone: End: 04-10-2024 Mri brain brain stem w/o w/contrast material MRI BRAIN WO/W IVCON Radiology Routine Secondary malignant neoplasm of brain (HCC) Malignant neoplasm of left lung, unspecified part of lung (HCC) 1 Occurrences starting 03/10/2023 until 04/10/2024 [facility] Work Phone: Comment on above: 1 Occurrences starti ng 03/10/2023 until 04/10/2024 Patient Education [facility] Work Phone: Patient referral [facility] Work Phone: [facility] Payers Date Payer Category Payer Self-pay [id number] 2022 Medicaid [facility] MEDICAID [facility] COMM[employer]ITY PLAN [place] [id number] 2022-Present [phone] [address] [place] [address] Medicaid [id number] 2022 [place] Health [place] [facility] [id number] 20[place]-Present [address] [place] [address] [id number] 2022 Private Health Insurance [id number] 1967 Unknown [id number] [id number]. 593 1967 Unknown [id number] 2.16.840.1.251241.3.579.2. 593 1967 Unknown [id number] 2.16.840.1.656788.3.579.2. 593 1967 Unknown [id number] 2.16.840.1.516132.3.579.2. 593 1967 Unknown [id number] 2.16.840.1.711598.3.579.2. 593 1967 Unknown [id number] 2.16.840.1.729409.3.579.2. 593 1967 Unknown [id number] 2.16.840.1.089975.3.579.2. 593 1967 Unknown [id number] 2.16.840.1.093249.3.579.2. 593 1967 Unknown [id number] 2.16.840.1.989491.3.579.2. 356 1967 Unknown [id number] 2.16.840.1.630150.3.579.2. 356 1967 Unknown [id number] 2.16.840.1.675177.3.579.2. 356 1967 Unknown [id number] 2.16.840.1.241594.3.579.2. 356 1967 Unknown [id number] 2.16.840.1.842250.3.579.2. 356 1967 Unknown [id number] 2.16.840.1.795425.3.579.2. 1244 1967 Unknown [id number] 2.16.840.1.504825.3.579.2. 1259 1959 Private Health Insurance [id number] Unknown [id number] Unknown Unknown [id number] [id number]. 531 Social History Date Type Detail Facility Start: 12-15-2021 End: 12-30-2022 Tobacco smoking status [facility] Smoker (finding) [facility] Start: 1965 Sex Assigned At Female F [facility] Start: 03-08-2023 End: 07-13-2023 Current smoker Current smoker [facility] Comment on above: 1/2 ppd; 3-4 daily; Start: 03-08-2023 Tobacco smoking stat us [facility] Smokes tobacco daily [facility] End: 08-28-2022 History of tobacco use Cigarette Smoker [facility] Start: 03-08-2023 End: 07-10-2023 Tobacco use and exposure Smokeless tobacco non-user [facility] Start: 03-08-2023 End: 05-03-2023 Alcohol intake Ex-drinker (finding) [facility] Start: 03-08-2023 End: 07-13-2023 Tobacco use panel [facility] Start: 1965 Sex Assigned At Not on file C [facility] National Score (1-100), lower number is lower risk 60 [facility] Start: 07-10-2023 Tobacco smoking stat us [facility] Ex-smoker [facility] Start: 07-10-2023 Alcohol intake Lifetime non-d chantal (finding) [facility] Work Phone: Start: 06-30-2023 End: 07-10-2023 Exposure to SARS-CoV-2 (event) Not sure [facility] Medical Equipment Procedure Code Equipment Code Equipment Origin al Text Equipment Identifier Dates Drug-eluting coronary artery stent, eih-ikllcsxrvqciq-kz lymer-coated ()[id number] FDA Start: 12-15-2021 Drug-eluting coronary artery stent, yma-puppubchvithk-af lymer-coated ()[id number] FDA Start: 12-15-2021 Drug-eluting coronary artery stent, yil-xegwgvkrgzmbf-kp lymer-coated ()[id number] FDA Start: 12-15-2021 Goals Date Patient Goal Desired Activity /State Functional Status Date Assessment Result Facility 01-25-2022 PHQ-9 [id number] Moderate (10-14) [facility] Work Phone: 12-16-2021 Functional status Patient at Baseline [facility] Work Phone: Mental Status Date Assessment Result Facility 12-16-2021 Cognitive function Cognitive Sta tus Patient at Baseline [facility] Work Phone: Clinical Notes 12-14-2021 to 09-25-2023 Saleem Fitch MD - 07/13/2023 10:35 PM ESTAssessment & Plan Note - LEANA Ramos - 07/11/2023 1:26 PM ESTAssessment & Plan Note - ROSEMARY Ramos CNP - 07/11/2023 1:26 PM EST Note Date & Type Note Facility 09-25-2023 Note HNO ID: [id number] Author: MICHAEL AGUILAR LSW Service: ? Author Type: [employer] Supervisor Type: Progress Notes Filed: 09/25/2023 16:11 Note Text: SOCIAL WORK FOLLOW UP NOTE: [facility] Date of service:09/22/23 Jeanmarie Faria is being seen for a follow up social work visit. Today's visit includes: patient TOPICS ADDRESSED: wig fitting PLAN: Continue follow up as needed Assigned SW listed in Care Team tab: No Patient was in today for a wig fitting, Patient was able to find a wig from the complementary wig bank. No other needs or concerns were identified. SW will remain available and will follow up as appropriate. ELOY Whiteside [facility] 07-14-2023 Note HNO ID: [id number] Author: Saleem Fitch MD Service: ? Author Type: Physician Type: Progress Notes Filed: 07/24/2023 11:15 PM Note Text: Radiation Oncology - Follow Up Note PATIENT NAME: Jeanmarie Faria PATIENT DIAGNOSIS/PATIENT IDENTIFICATION: Ms. Faria is a 57-year-old woman diagnosed with Stage III non-small cell lung cancer arising from the left chest who presented with initial compression of the left mainstem bronchus status post pulmonary stent placement by Dr. Foss. Staging workup with PET/CT noted disease in the left neck as well as primary disease in the chest. She was not felt to be a surgical candidate and proceeded to complete course of definitive concurrent chemoradiation in coordination with Dr. Rodriguez at the [facility] on 05/11/2023 (6,000 cGy delivered in 30 fractions with concurrent carboplatin/paclitaxel). INTERVAL HISTORY/ROS: Ms. Faria returns to clinic today for routine follow-up approximately two months after the completion of her radiation treatments. In the interim, she was hospitalized shortly after completion of treatment for pneumonia and arrhythmia (tachycardia). Since discharge she has been on supplemental oxygen [id number] via nasal cannula at 2 L/min. She feels that her cough is improved and denies any hemoptysis but still has some tightness in the chest with deep breaths. She denies any esophagitis that she is swallowing well. She is seeing a still operator brandy and is currently on a nebulizer 3 times a day as well as albuterol. She reports that she is scheduled for PFTs and potentially pulmonary rehab to follow. She had initial posttreatment imaging with PET/CT on 07/07/2023 showing complete metabolic response in the chest with no new definite areas of concern for disease regionally or distantly. She did have some persistent consolidation within the left lung base. She also notes being tobacco free for the past 2 months and is not currently on any antibiotics. She otherwise denies any recent fevers, chills, headaches, difficulty with speech/swallowing, abdominal pain, nausea, vomiting, change in bowel/urinary habits, difficulty with gait/balance, recent falls, etc. The remainder of the review of systems was performed and was otherwise noncontributory. ALLERGIES ALLERGIES No Known Allergies MEDICATIONS: Current Outpatient Medications: buPROPion XL (WELLBUTRIN XL) 150 mg 24 hr tablet dilTIAZem CD (CARDIZEM CD, CARTIA XT) 240 mg 24 hr capsule gabapentin (NEURONTIN) 300 mg capsule ipratropium-albuterol (DUONEB) 0.5 mg-3 mg(2.5 mg base)/3 mL nebu sodium chloride 0.9 % nebulizer solution albuterol HFA (PROVENTIL HFA, VENTOLIN HFA) 90 mcg/actuation inhaler aspirin, enteric coated (ASPIRIN, ENTERIC COATED) 81 mg EC tablet atorvastatin (LIPITOR) 80 mg tablet isosorbide mononitrate ER (IMDUR) 30 mg 24 hr tablet metoprolol succinate ER (TOPROL XL) 100 mg Omeprazole Magnesium 20 mg tablet prochlorperazine (COMPAZINE) 10 mg tablet iv contrast (will be provided with radiology test) nitroglycerin sublingual (NITROQUICK) 0.4 mg SL tablet predniSONE (DELTASONE) 20 mg tablet BRILINTA 90 mg tablet traMADol (ULTRAM) 50 mg tablet PHYSICAL EXAM: GENERAL: middle-aged woman sitting in chair in no acute distress. VITALS: BP 103/67 Pulse 76 Temp 96.9 Resp 18 Wt 155 lb (70.3kg) SpO2 98[O2 at 2L /NC]% KPS: 80 HEENT: NC/AT, anicteric sclera HEART: S1S2 LUNGS: non-labored breathing ABDOMEN: soft MUSCULOSKELETAL: no peripheral edema, moves all extremities. NEURO: no focal deficit; AANDO X3. RADIOLOGIC DATA: PET/CT (07/07/2023) ASSESSMENT AND PLAN: Ms. Faria is a 57-year-old woman diagnosed with Stage III non-small cell lung cancer arising from the left chest who presented with initial compression of the left mainstem bronchus status post pulmonary stent placement by Dr. Foss. Staging workup with PET/CT noted disease in the left neck as well as primary disease in the chest. She was not felt to be a surgical candidate and proceeded to complete course of definitive concurrent chemoradiation in coordination with Dr. Rodriguez at the [facility] on 05/11/2023 (6,000 cGy delivered in 30 fractions with concurrent carboplatin/paclitaxel). Ms. Faria continues to recover from the acute toxicities of her recent course of chemoradiation which was complicated by recent hospitalization for pneumonia. She is showing slow improvement but continues to require supplemental oxygen and will follow with her still operator brandy plans for PFTs as well as pulmonary rehab. Initial posttreatment imaging with PET/CT from 07/07/2023 shows excellent response with resolution of the hypermetabolic activity in the chest with no new or different areas of concern regionally or distantly. She will continue follow-up and surveillance with Dr. Rodriguez as scheduled and I will plan to see her back in approximately 3 to 4 months. Th (more content not included)... [facility] 07-13-2023 History of Present illness Narrative Images from the original note were not included. Radiation Oncology - Follow Up Note PATIENT NAME: Jeanmarie Faria PATIENT DIAGNOSIS/PATIENT IDENTIFICATION: Ms. Faria is a 57-year-old woman diagnosed with Stage III non-small cell lung cancer arising from the left chest who presented with initial compression of the left mainstem bronchus status post pulmonary stent placement by Dr. Foss. Staging workup with PET/CT noted disease in the left neck as well as primary disease in the chest. She was not felt to be a surgical candidate and proceeded to complete course of definitive concurrent chemoradiation in coordination with Dr. Rodriguez at the [facility] on 05/11/2023 (6,000 cGy delivered in 30 fractions with concurrent carboplatin/paclitaxel). INTERVAL HISTORY/ROS: Ms. Faria returns to clinic today for routine follow-up approximately two months after the completion of her radiation treatments. In the interim, she was hospitalized shortly after completion of treatment for pneumonia and arrhythmia (tachycardia). Since discharge she has been on supplemental oxygen [id number] via nasal cannula at 2 L/min. She feels that her cough is improved and denies any hemoptysis but still has some tightness in the chest with deep breaths. She denies any esophagitis that she is swallowing well. She is seeing a still operator brandy and is currently on a nebulizer 3 times a day as well as albuterol. She reports that she is scheduled for PFTs and potentially pulmonary rehab to follow. She had initial posttreatment imaging with PET/CT on 07/07/2023 showing complete metabolic response in the chest with no new definite areas of concern for disease regionally or distantly. She did have some persistent consolidation within the left lung base. She also notes being tobacco free for the past 2 months and is not currently on any antibiotics. She otherwise denies any recent fevers, chills, headaches, difficulty with speech/swallowing, abdominal pain, nausea, vomiting, change in bowel/urinary habits, difficulty with gait/balance, recent falls, etc. The remainder of the review of systems was performed and was otherwise noncontributory. ALLERGIES ALLERGIES No Known Allergies MEDICATIONS: Current Outpatient Medications: buPROPion XL (WELLBUTRIN XL) 150 mg 24 hr tablet dilTIAZem CD (CARDIZEM CD, CARTIA XT) 240 mg 24 hr capsule gabapentin (NEURONTIN) 300 mg capsule ipratropium-albuterol (DUONEB) 0.5 mg-3 mg(2.5 mg base)/3 mL nebu sodium chloride 0.9 % nebulizer solution albuterol HFA (PROVENTIL HFA, VENTOLIN HFA) 90 mcg/actuation inhaler aspirin, enteric coated (ASPIRIN, ENTERIC COATED) 81 mg EC tablet atorvastatin (LIPITOR) 80 mg tablet isosorbide mononitrate ER (IMDUR) 30 mg 24 hr tablet metoprolol succinate ER (TOPROL XL) 100 mg Omeprazole Magnesium 20 mg tablet prochlorperazine (COMPAZINE) 10 mg tablet iv contrast (will be provided with radiology test) nitroglycerin sublingual (NITROQUICK) 0.4 mg SL tablet predniSONE (DELTASONE) 20 mg tablet BRILINTA 90 mg tablet traMADol (ULTRAM) 50 mg tablet PHYSICAL EXAM: GENERAL: middle-aged woman sitting in chair in no acute distress. VITALS: BP 103/67 Pulse 76 Temp 96.9 Resp 18 Wt 155 lb (70.3kg) SpO2 98[O2 at 2L /NC]% KPS: 80 HEENT: NC/AT, anicteric sclera HEART: S1S2 LUNGS: non-labored breathing ABDOMEN: soft MUSCULOSKELETAL: no peripheral edema, moves all extremities. NEURO: no focal deficit; A&O X3. RADIOLOGIC DATA: PET/CT (07/07/2023) ASSESSMENT AND PLAN: Ms. Faria is a 57-year-old woman diagnosed with Stage III non-small cell lung cancer arising from the left chest who presented with initial compression of the left mainstem bronchus status post pulmonary stent placement by Dr. Foss. Staging workup with PET/CT noted disease in the left neck as well as primary disease in the chest. She was not felt to be a surgical candidate and proceeded to complete course of definitive concurrent chemoradiation in coordination with Dr. Rodriguez at the [facility] on 05/11/2023 (6,000 cGy delivered in 30 fractions with concurrent carboplatin/paclitaxel). Ms. Faria continues to recover from the acute toxicities of her recent course of chemoradiation which was complicated by recent hospitalization for pneumonia. She is showing slow improvement but continues to require supplemental oxygen and will follow with her still operator brandy plans for PFTs as well as pulmonary rehab. Initial posttreatment imaging with PET/CT from 07/07/2023 shows excellent response with resolution of the hypermetabolic activity in the chest with no new or different areas of concern regionally or distantly. She will continue follow-up and surveillance with Dr. Rodriguez as scheduled and I will plan to see her back in approximately 3 to 4 months. The patient is aware to contact the clinic in the interim should any questions or concerns arise. Thank you for allowing us to participate in the care of this patient. Signed by: Saleem Fitch MD This document has been created with the use of voice recognition technology. It may contain inaccuracies, misspellings, inaccurate syntax or inappropriate word context that are a result of the inadequacies/shortcomings of said technology/software. documented in this encounter [facility] 07-11-2023 Evaluation + Plan note Associated Problem(s): Non-small cell lung cancer (CMS/HCC) Reports diagnosed February 22, 2023 Treated with radiation and chemotherapy Pulmonary stent has been removed PET scan pending [facility] Work Phone: 07-11-2023 Evaluation + Plan note Associated Problem(s): BMI 26.0-26.9,adult Reviewed the merits of healthy lifestyle choices on overall cardiovascular health. [facility] Work Phone: 07-11-2023 Miscellaneous Notes Associated Problem(s): Non-small cell lung cancer (CMS/HCC) Reports diagnosed February 22, 2023 Treated with radiation and chemotherapy Pulmonary stent has been removed PET scan pending Associated Problem(s): BMI 26.0-26.9,adult Reviewed the merits of healthy lifestyle choices on overall cardiovascular health. Associated Problem(s): Mixed hyperlipidemia High intensity statin Associated Problem(s): Essential hypertension Optimal in office Associated Problem(s): SVT (supraventricular tachycardia) June 2023 ER presentation due to SVT 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 Potassium 2.9 at that time PE ruled out Dose of metoprolol increased and Cardizem added Associated Problem(s): Angina pectoris (CMS/HCC) Resolved Associated Problem(s): Hypertrophic nonobstructive cardiomyopathy (CMS/HCC) January 2022 TTE Hyperdynamic LVEF 75 to 80% Severe symmetric LVH with cavitary obliteration during systole with no significant gradient. December 2022 cardiac cath LVEF 80% Associated Problem(s): ASHD (arteriosclerotic heart disease) November 2021 PCI mCX & dRCA December 2022 cardiac cath mCX patent stent dRCA patent stent LAD normal Current daily activity less than 4 METS without recurrent symptoms documented in this encounter [facility] Work Phone: 07-11-2023 Evaluation + Plan note Associated Problem(s): Mixed hyperlipidemia High intensity statin [facility] Work Phone: 07-11-2023 Evaluation + Plan note Associated Problem(s): Essential hypertension Optimal in office [facility] Work Phone: 07-11-2023 Evaluation + Plan note Associated Problem(s): SVT (supraventricular tachycardia) June 2023 ER presentation due to SVT 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 Potassium 2.9 at that time PE ruled out Dose of metoprolol increased and Cardizem added [facility] Work Phone: 07-11-2023 Evaluation + Plan note Associated Problem(s): Angina pectoris (CMS/HCC) Resolved [facility] Work Phone: 07-11-2023 Evaluation + Plan note Associated Problem(s): Hypertrophic nonobstructive cardiomyopathy (CMS/HCC) January 2022 TTE Hyperdynamic LVEF 75 to 80% Severe symmetric LVH with cavitary obliteration during systole with no significant gradient. December 2022 cardiac cath LVEF 80% [facility] Work Phone: 07-11-2023 Evaluation + Plan note Associated Problem(s): ASHD (arteriosclerotic heart disease) November 2021 PCI mCX & dRCA December 2022 cardiac cath mCX patent stent dRCA patent stent LAD normal Current daily activity less than 4 METS without recurrent symptoms [facility] Work Phone: 07-10-2023 History of Present illness Narrative Chief Complaint Guess I am okay Reason for Visit ER follow-up due to SVT Patient presents to the office today for outpatient follow-up. Last evaluated in clinic by Dr. Gongora December 2022. Following that visit, she continues to have significant left-sided pain. On February 14, 2023 was diagnosed with lung cancer. Has been completing treatment with pulmonary stent, radiation and chemotherapy. Presents today ambulatory with steady gait. Accompanied by family member History of Present Illness June 2023 was being seen for oncology follow-up was noted to have elevated heart rate. She was transferred to local emergency department where EKG SVT at 133 bpm questionable AVNRT. Her potassium was 2.9, she ruled out for pulmonary embolism. Her metoprolol was increased and Cardizem was added to medical regimen. She has been compliant with changes. At the time of ER evaluation she was asymptomatic. She denies any dizziness or lightheadedness. With increased dose that she denies any symptoms consistent with hypotension. Her EKG in office today is normal sinus rhythm, LVH with repolarization abnormality. Heart rate 72. Her activity level is limited due to recent chemo/radiation treatment. She reports feeling winded when she ambulated over the parking lot, she is now utilizing oxygen continuously. There is no orthopnea or PND. Denies any exertional chest pain, no utilization of nitroglycerin. No dizziness or lightheadedness. No evidence of angina or decompensated heart failure. Tolerating increased AV aysha blocking agent with optimal heart rate. Unclear why potassium 2.9 on ER arrival, will repeat. Review of Systems Constitutional: Positive for malaise/fatigue. Cardiovascular: Negative for chest pain, dyspnea on exertion, irregular heartbeat, leg swelling, near-syncope, orthopnea, palpitations, paroxysmal nocturnal dyspnea and syncope. Respiratory: Positive for shortness of breath. Visit Vitals BP 110/68 (BP Location: Left arm, Patient Position: Sitting) Pulse 74 Ht 1.626 m (5' 4 ) Wt 68.9 kg (152 lb) BMI 26.09 kg/m Smoking Status Former BSA 1.76 m Physical Exam Vitals and nursing note reviewed. HENT: Head: Normocephalic. Cardiovascular: Rate and Rhythm: Normal rate and regular rhythm. Heart sounds: Normal heart sounds. Pulmonary: Effort: Pulmonary effort is normal. Breath sounds: Decreased air movement present. Examination of the left-upper field reveals wheezing and rhonchi. Wheezing and rhonchi present. Abdominal: Palpations: Abdomen is soft. Musculoskeletal: Right lower leg: No edema. Left lower leg: No edema. Skin: General: Skin is warm and dry. Neurological: General: No focal deficit present. Mental Status: She is alert. Psychiatric: Mood and Affect: Mood normal. Behavior: Behavior normal. No Known Allergies Current Outpatient Medications Medication Instructions aspirin 81 mg chewable tablet 1 tablet, oral, Daily atorvastatin (LIPITOR) 80 mg, oral, Daily buPROPion XL (WELLBUTRIN XL) 150 mg, oral, Daily, Do not crush, chew, or split. dilTIAZem CD (CARDIZEM CD) 120 mg, oral, Daily gabapentin (NEURONTIN) 100 mg, oral, 2 times daily isosorbide mononitrate ER (IMDUR) 60 mg, oral, Daily, Do not crush or chew. metoprolol succinate XL (TOPROL-XL) 100 mg, oral, Daily, Do not crush or chew. nitroglycerin (NITROSTAT) 0.4 mg, sublingual, Every 5 min PRN omeprazole (PRILOSEC) 20 mg, oral, 2 times daily before meals, Do not crush or chew. Assessment: ASHD (arteriosclerotic heart disease) November 2021 PCI mCX & dRCA December 2022 cardiac cath mCX patent stent dRCA patent stent LAD normal Current daily activity less than 4 METS without recurrent symptoms Hypertrophic nonobstructive cardiomyopathy (CMS/HCC) January 2022 TTE Hyperdynamic LVEF 75 to 80% Severe symmetric LVH with cavitary obliteration during systole with no significant gradient. December 2022 cardiac cath LVEF 80% Angina pectoris (CMS/HCC) Resolved SVT (supraventricular tachycardia) June 2023 ER presentation due to SVT 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 Potassium 2.9 at that time PE ruled out Dose of metoprolol increased and Cardizem added Essential hypertension Optimal in office Mixed hyperlipidemia High intensity statin BMI 26.0-26.9,adult Reviewed the merits of healthy lifestyle choices on overall cardiovascular health. Non-small cell lung cancer (CMS/HCC) Reports diagnosed February 22, 2023 Treated with radiation and chemotherapy Pulmonary stent has been removed PET scan pending Plan: Through informed decision making process incorporating patients unique circumstances, the following treatment plan will be initiated: 1. Prescription drug management of cardiovascular medication for efficacy, adherence to treatment, side effect assessment and polypharmacy. Current treatment clinically warranted and to continue without modifications. 2. Labs (chem) 3. Return for follow-up; in the interim, contact the office if new symptoms arise. Dr. Rolan Cagle MSN, [employer]ACH[employer], PMHNP-BC [facility] Please excuse any errors in grammar or translation related to this dictation. Voice recognition software was utilized to prepare this document. documented in this encounter [facility] Work Phone: 07-10-2023 Instructions LEANA Ramos - 07/10/2023 11:00 AM EST Please bring all medicines, vitamins, and herbal supplements with you when you come to the office. Prescriptions will not be filled unless you are compliant with your follow up appointments or have a follow up appointment scheduled as per instruction of your physician. Refills should be requested at the time of your visit. EKG done in office today PLAN: Through informed decision making process incorporating patients unique circumstances, the following treatment plan will be initiated: 1. Prescription drug management of cardiovascular medication for efficacy, adherence to treatment, side effect assessment and polypharmacy. Current treatment clinically warranted and to continue without modifications. 2. Labs (chem) 3. Return for follow-up; in the interim, contact the office if new symptoms arise. Dr. Gongora months documented in this encounter [facility] Work Phone: 06-19-2023 Note Cardiology consulted for tachycardia EKG and telemetry show Atrial tachycardia Will start Cardizem CD 120 mg daily Close outpatient follow recommended I asked her to see PCP or cardiology within 1 week. Maritza Pardo MD [place] [facility] 06-19-2023 Note Patient: Jeanmarie chavarria Procedure Summary Date: 06/19/23 Room / Location: [facility] Main Operating Room Anesthesia Start: 1208 Anesthesia Stop: 1246 Procedure: BRONCHOSCOPY Diagnosis: Malignant neoplasm of upper lobe of left lung (CMS/HCC) Scheduled Providers: Betito Foss MD; Elisabeth Kendall MD; KYLE Wan Responsible Provider: Elisabeth Kendall MD Anesthesia Type: general ASA Status: 3 Anesthesia Type: general Vitals Value Taken Time BP 114/95 06/19/23 1458 Temp 36.2 ???C (97.2 ???F) 06/19/23 1245 Pulse 114 06/19/23 1459 Resp 14 06/19/23 1459 SpO2 98 % 06/19/23 1459 Vitals shown include unvalidated device data. Anesthesia Post Evaluation Patient location during evaluation: PACU Patient participation: complete - patient participated Level of consciousness: awake Pain score: 0 Pain management: adequate Airway patency: patent Cardiovascular status: tachycardic Respiratory status: acceptable Comments: Patient had episode of, what appeared to be a fib with RVR at time of induction. Heart rate responded to Beta blockers but she continues to experience HR >120 intermittently. Patient states she feels worse than pre op And endorses feeling more SOB in recent weeks and like she has been running a race. I was able to get In touch with her fisher hand line () who stated that any arrythmias such as a fib were new for her. He stated she Was allowed to stop her Brillinta and that he recommended utilizing beta blockers for HR control. I told him That cardiology would be consulted and see her in PACU. Patient is hemodynamically stable and is able to be discharged from PACU per anesthesia protocol. No notable events documented. [facility] 06-19-2023 Note Airway Date/Time: 06/19/2023 12:15 PM Urgency: elective Airway not difficult General Information and Staff Patient location during procedure: OR Anesthesiologist: Elisabeth Kendall MD Resident/RECONNAISSANCE CREWMEMBER/CAA: KYLE Wan Performed: resident/RECONNAISSANCE CREWMEMBER/CAA Indications and Patient Condition Indications for airway management: anesthesia Spontaneous ventilation: present Sedation level: deep Preoxygenated: yes Patient position: sniffing Mask difficulty assessment: 0 - not attempted Final Airway Details Final airway type: supraglottic airway Successful airway: i-gel Size 4 Number of attempts at approach: 1 Ventilation between attempts: none Number of other approaches attempted: [address] [facility] 06-19-2023 Note Patient: Jeanmarie chavarria Procedure Summary Date: 06/19/23 Room / Location: [facility] Main Operating Room Anesthesia Start: 1208 Anesthesia Stop: 1246 Procedure: BRONCHOSCOPY Diagnosis: Malignant neoplasm of upper lobe of left lung (CMS/HCC) Scheduled Providers: Betito Foss MD; Elisabeth Kendall MD; KYLE Wan Responsible Provider: Elisabeth Kendall MD Anesthesia Type: general ASA Status: 3 Anesthesia Post Transport Note Transport to: PACU O2 Route: nasal cannula Oxygen Flow (L/min): 3 Patient Monitor: direct observation Transport: uneventful Patient condition is: stable Comments: VSS, SV well, arousable, report to RN [facility] 06-19-2023 Note Patient: Jeanmarie chavarria Procedure Information Date/Time: 06/19/23 1200 Scheduled providers: Betito Foss MD; Elisabeth Kendall MD; KYLE Wan Procedure: BRONCHOSCOPY Location: [facility] Main Operating Room Relevant Problems No relevant active problems Clinical information reviewed: Tobacco Allergies Meds Med Hx Surg Hx OB Status Fam Hx Soc Hx Physical Exam Airway Mallampati: II TM distance: >3 FB Neck ROM: full Cardiovascular - normal exam Rhythm: regular Rate: normal Dental - normal exam Pulmonary - normal exam Abdominal - normal exam Anesthesia Plan ASA 3 general (On 2l NC at all times) The patient is not a current smoker. Patient was not previously instructed to abstain from smoking on day of procedure. Patient did not smoke on day of procedure. Education provided regarding risk of obstructive sleep apnea. intravenous induction Anesthetic plan and risks discussed with patient. Plan discussed with CAA. Additional Equipment Requests [facility] 06-15-2023 Note Attestation signed by Betito Foss MD at 06/16/2023 8:25 AM Total time spent on day of encounter: 30 minutes Attending attestation: GC: I personally spoke with this patient via telephone on the day of the encounter, performed the puente portion(s) of the service and participated in the management and confirm the fellow's documentation. Physical examination was not performed and may limit some portions of the clinical encounter. Please note there may be an additional personal documentation from me. Pulmonary Clinic Visit Note Patient: Jeanmarie Faria Age: 57 y.o. : 1965 Account No.: [id number] Chief complaint: Stent reversion HPI Jeanmarie Faria is a 57 y.o. 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 Status post left main bronchus stent placed on 03/10/2023. The patient presented today for televisit for stent revision. Overall the patient feels okay although she is on 2 L/min oxygen. She has more respiratory secretion which she feels she cannot bring it up. She is compliant with the hypertonic saline nebulizer and the albuterol inhalers. She denies having worsening shortness of breath, chest pain, and hemoptysis. She finished her chemotherapy with the oncology clinic. She is a scheduled for PET scan on 06/23/2023. Review of Systems: Constitutional: no activity change, no appetite change, no chills, no fatigue and f no ever. HENT: No nasal congestion, no postnasal drip, and no hearing loss, no rhinorrhea and no sore throat. Eyes: No discharge and no visual disturbance. Respiratory: Dyspnea on exertion, cough and sputum, no choking, no chest tightness, no wheezing and no stridor. Cardiovascular: No chest pain, no palpitations and no leg swelling. Gastrointestinal: No abdominal pain. Musculoskeletal: No arthralgias and no myalgias. Skin: No color change and no wound. Neurological: No dizziness and no headaches. Physical examination: Vitals: There were no vitals taken for this visit. Unobtainable/televisit. Labs Results: Pertinent lab result reviewed in the chart Radiology: No Chest X-ray results found for the past [address] results found for the past 12 months Assessment and Plan: #1-Non-small cell carcinoma, Left upper lobe Status post left main bronchus stenting. Plan for bronchoscopy for stent revision +/- stent removal. Patient is currently on Brilinta which should be held for 5 days prior to the procedure. Patient is agreeable on the bronchoscopy and the risk and benefit was discussed with her. Date of phone call: 06/15/2023 Total time spent in Medical Discussion: 30 minutes. Total 30 minutes. The visit was initiated by the patient and conducted [id number] with use of audio-only real time telephone communication between patient and provider for a virtual visit. Verbal consent to provide and bill for this service was obtained on 06/15/2023. No signature was obtained due to the COVID-19 pandemic. Julio Taylor Pulmonary and critical care fellow [facility]. 06/15/23 11:[address] [facility] 05-11-2023 Note HNO ID: [id number] Author: Saleem Fitch MD Service: ? Author Type: Physician Type: Progress Notes Filed: 05/19/2023 12:32 AM Note Text: [facility] Radiation Oncology Department RADIATION ONCOLOGY - COMPLETION NOTE PATIENT: SAVANA FARIAB: 1965 DATES OF TREATMENT: 03/28/2023-05/11/2023 DIAGNOSIS: Ms. Faria is a 57-year-old woman diagnosed with stage III non- small cell lung cancer arising from the left chest who presented with initial compression of the left mainstem bronchus status post placement of pulmonary stent by Dr. Foss. Staging workup with PET/CT noted disease in the left neck. She was not felt to be a surgical candidate and proceeded to definitive concurrent chemoradiation in coordination with Dr. Rodriguez at the [facility]. AREA TREATED: Chest/Mediastinum/Left Neck DELIVERED DOSE: 6000 cGy in 30 fractions, 2 Arcs, IMRT, 6MV with daily CBCT guidance TOTAL: 6000 cGy in 30 fractions with concurrent carboplatin/paclitaxel. ELAPSED TIME: 44 days. CLINICAL SUMMARY: The patient tolerated course of radiation therapy to the chest and neck well with treatment-related fatigue and cough as expected. She also lost her voice in the midst of treatment which then recovered and she noted improvement/resolution of the chest discomfort she had at presentation. The patient was able to complete treatment as intended without break interruption or modification of prescription plan. The patient will be evaluated in 3-4 weeks for post-radiation follow-up and will follow with Dr. Rodriguez as scheduled for continued evaluation and systemic therapy recommendations including initial post-treatment imaging to assess treatment response. She will also meet with Dr. Foss to evaluate her pulmonary stent and need for extraction. She was counseled heavily regarding smoking cessation. Staff Physician Saleem Fitch M.D. / KG 34:39 AM Electronically Signed cc: Archana Rodriguez MD [address] [place] [facility] [place] [address] Via Betito Foss MD [address] [place] [address] Via [facility] DO [address] [facility] [place] [address] Via [facility] 05-11-2023 Note HNO ID: [id number] Author: Saleem Fitch MD Service: ? Author Type: Physician Type: Progress Notes Filed: 05/24/2023 4:48 AM Note Text: Radiation Oncology - On Treatment Review (OTR) Note PATIENT NAME: Jeanmarie Faria PATIENT DIAGNOSIS: Ms. Faria is a 57-year-old woman diagnosed with stage III non-small cell lung cancer arising from the left chest who presented with initial compression of the left mainstem bronchus status post placement of pulmonary stent. She was not felt to be a surgical candidate and proceeds to definitive concurrent chemoradiation. PROTOCOL: no COURSE: definitive and concurrent chemotherapy Current dose: 5800 cGy in 29 fx Planned dose: 6000 cGy in 30 fx Status: Patient states there is no possibility she is at this time SUBJECTIVE: Tolerating XRT well and reports no change in her breathing or cough and denies any hemoptysis or chest pain or difficulty swallowing. She does note fatigue with stable appetite hydration and weight. Last 5 Encounter Wt Readings: Date: Wt: 05/10/2023 71.2 kg (157 lb) 05/03/2023 72.8 kg (160 lb 9.6 oz) 04/26/2023 72.9 kg (160 lb 12.8 oz) 04/19/2023 72.1 kg (159 lb) 04/12/2023 73.9 kg (163 lb) PHYSICAL EXAM: Area Assessed: Chest KPS: 80 General Appearance: Alert and oriented. No acute distress. Chest: No respiratory distress. IMAGING/LAB RESULTS: None TOXICITY ASSESSMENT (CTC v4.0): Fatigue: grade 1 - Fatigue relieved by rest Weight loss: grade 0 - No weight loss Nausea:Grade 0 - No Symptoms Radiation Dermatitis:grade 1 - Faint erythema or dry desquamation Dysphagia: grade 0 - No symptoms Esophageal Pain: Grade 0 - No symptoms Dyspnea: grade 1 (Shortness of breath with moderate exertion) Treatment chart checked: Yes Patient treatment site reviewed and verified:Yes Port films reviewed and current:Yes Medications started: None ASSESSMENT/PLAN: Clinically stable. Toxicity within expected parameters. Continue radiation treatment as planned. She was counseled again regarding smoking cessation. Saleem Fitch MD [facility] 05-11-2023 History of Present illness Narrative [facility] Radiation Oncology Department RADIATION ONCOLOGY - COMPLETION NOTE PATIENT: DAVID FARIA: 1965 DATES OF TREATMENT: 03/28/2023-05/11/2023 DIAGNOSIS: Ms. Faria is a 57-year-old woman diagnosed with stage III non- small cell lung cancer arising from the left chest who presented with initial compression of the left mainstem bronchus status post placement of pulmonary stent by Dr. Foss. Staging workup with PET/CT noted disease in the left neck. She was not felt to be a surgical candidate and proceeded to definitive concurrent chemoradiation in coordination with Dr. Rodriguez at the [facility]. AREA TREATED: Chest/Mediastinum/Left Neck DELIVERED DOSE: 6000 cGy in 30 fractions, 2 Arcs, IMRT, 6MV with daily CBCT guidance TOTAL: 6000 cGy in 30 fractions with concurrent carboplatin/paclitaxel. ELAPSED TIME: 44 days. CLINICAL SUMMARY: The patient tolerated course of radiation therapy to the chest and neck well with treatment-related fatigue and cough as expected. She also lost her voice in the midst of treatment which then recovered and she noted improvement/resolution of the chest discomfort she had at presentation. The patient was able to complete treatment as intended without break interruption or modification of prescription plan. The patient will be evaluated in 3-4 weeks for post-radiation follow-up and will follow with Dr. Rodriguez as scheduled for continued evaluation and systemic therapy recommendations including initial post-treatment imaging to assess treatment response. She will also meet with Dr. Foss to evaluate her pulmonary stent and need for extraction. She was counseled heavily regarding smoking cessation. Staff Physician Saleem Fitch M.D. / KG 34:39 AM Electronically Signed cc: Archana Rodriguez MD [address] [place] [facility] [place] [address] Via Betito Foss MD [address] [place] [address] [address] [facility] DO [address] [facility] [place] [address] Via documented in this encounter [facility] 05-04-2023 Note HNO ID: [id number] Author: Saleem Fitch MD Service: ? Author Type: Physician Type: Progress Notes Filed: 05/16/2023 11:31 PM Note Text: Radiation Oncology - On Treatment Review (OTR) Note PATIENT NAME: Jeanmarie Faria PATIENT DIAGNOSIS: Ms. Faria is a 57-year-old woman diagnosed with stage III non-small cell lung cancer arising from the left chest who presented with initial compression of the left mainstem bronchus status post placement of pulmonary stent. She was not felt to be a surgical candidate and proceeds to definitive concurrent chemoradiation. PROTOCOL: no COURSE: definitive and concurrent chemotherapy Current dose: 4800 cGy in 24 fx Planned dose: 6000 cGy in 30 fx SUBJECTIVE: Tolerating XRT well and reports no change in her breathing or mild cough and continues to use her albuterol inhaler a few times a week which helps. She denies any mopped assist or chest pain and reports being able to swallow well and eat all consistencies. She also notes that her voice is improved and started a course of tapering steroids. She does endorse fatigue with stable appetite and hydration and weight. Last 5 Encounter Wt Readings: Date: Wt: 05/03/2023 72.8 kg (160 lb 9.6 oz) 04/26/2023 72.9 kg (160 lb 12.8 oz) 04/19/2023 72.1 kg (159 lb) 04/12/2023 73.9 kg (163 lb) 04/05/2023 72.6 kg (160 lb) PHYSICAL EXAM: Area Assessed: Chest KPS: 80 General Appearance: Alert and oriented. No acute distress. Chest: No respiratory distress. IMAGING/LAB RESULTS: None TOXICITY ASSESSMENT (CTC v4.0): Fatigue: grade 1 - Fatigue relieved by rest Weight loss: grade 0 - No weight loss Nausea:Grade 0 - No Symptoms Radiation Dermatitis:grade 0 - No symptoms Dysphagia: grade 0 - No symptoms Esophageal Pain: Grade 0 - No symptoms Dyspnea: grade 1 (Shortness of breath with moderate exertion) Treatment chart checked: Yes Patient treatment site reviewed and verified:Yes Port films reviewed and current:Yes Medications started: None ASSESSMENT/PLAN: Clinically stable. Toxicity within expected parameters. Continue radiation treatment as planned. Saleem Fitch MD [facility] 05-03-2023 History of Present illness Narrative Radiation Oncology - On Treatment Review (OTR) Note PATIENT NAME: Jeanmarie Faria PATIENT DIAGNOSIS: Ms. Faria is a 57-year-old woman diagnosed with stage III non-small cell lung cancer arising from the left chest who presented with initial compression of the left mainstem bronchus status post placement of pulmonary stent. She was not felt to be a surgical candidate and proceeds to definitive concurrent chemoradiation. PROTOCOL: no COURSE: definitive and concurrent chemotherapy Current dose: 4800 cGy in 24 fx Planned dose: 6000 cGy in 30 fx SUBJECTIVE: Tolerating XRT well and reports no change in her breathing or mild cough and continues to use her albuterol inhaler a few times a week which helps. She denies any mopped assist or chest pain and reports being able to swallow well and eat all consistencies. She also notes that her voice is improved and started a course of tapering steroids. She does endorse fatigue with stable appetite and hydration and weight. Last 5 Encounter Wt Readings: Date: Wt: 05/03/2023 72.8 kg (160 lb 9.6 oz) 04/26/2023 72.9 kg (160 lb 12.8 oz) 04/19/2023 72.1 kg (159 lb) 04/12/2023 73.9 kg (163 lb) 04/05/2023 72.6 kg (160 lb) PHYSICAL EXAM: Area Assessed: Chest KPS: 80 General Appearance: Alert and oriented. No acute distress. Chest: No respiratory distress. IMAGING/LAB RESULTS: None TOXICITY ASSESSMENT (CTC v4.0): Fatigue: grade 1 - Fatigue relieved by rest Weight loss: grade 0 - No weight loss Nausea:Grade 0 - No Symptoms Radiation Dermatitis:grade 0 - No symptoms Dysphagia: grade 0 - No symptoms Esophageal Pain: Grade 0 - No symptoms Dyspnea: grade 1 (Shortness of breath with moderate exertion) Treatment chart checked: Yes Patient treatment site reviewed and verified:Yes Port films reviewed and current:Yes Medications started: None ASSESSMENT/PLAN: Clinically stable. Toxicity within expected parameters. Continue radiation treatment as planned. Saleem Fitch MD documented in this encounter [facility] 04-27-2023 Note HNO ID: [id number] Author: Saleem Fitch MD Service: ? Author Type: Physician Type: Progress Notes Filed: 05/09/2023 10:19 PM Note Text: Radiation Oncology - On Treatment Review (OTR) Note PATIENT NAME: Jeanmarie Faria PATIENT DIAGNOSIS: Ms. Faria is a 57-year-old woman diagnosed with stage III non-small cell lung cancer arising from the left chest who presented with initial compression of the left mainstem bronchus status post placement of pulmonary stent. She was not felt to be a surgical candidate and proceeds to definitive concurrent chemoradiation. PROTOCOL: no COURSE: definitive and concurrent chemotherapy Current dose: 4000 cGy in 20 fx Planned dose: 6000 cGy in 30 fx Status: Patient states there is no possibility she is at this time SUBJECTIVE: Tolerating XRT well and reports no significant change in her breathing and she continues to have dyspnea on exertion and feels that her cough is improved. She denies any mopped assist and notes continued resolution of her chest discomfort and feels that her voice is slightly better. She is able to swallow fairly well and able to eat all consistencies. She does endorse fatigue with stable appetite and hydration and weight. She did start a tapering course of prednisone per Dr. Rodriguez. PHYSICAL EXAM: Area Assessed: Chest KPS: 80 General Appearance: Alert and oriented. No acute distress. Chest: No respiratory distress. IMAGING/LAB RESULTS: None TOXICITY ASSESSMENT (CTC v4.0): Fatigue: grade 1 - Fatigue relieved by rest Weight loss: grade 0 - No weight loss Nausea:Grade 0 - No Symptoms Radiation Dermatitis:grade 0 - No symptoms Dysphagia: grade 0 - No symptoms Esophageal Pain: Grade 0 - No symptoms Dyspnea: grade 1 (Shortness of breath with moderate exertion) Treatment chart checked: Yes Patient treatment site reviewed and verified:Yes Port films reviewed and current:Yes Medications started: None ASSESSMENT/PLAN: Clinically stable. Toxicity within expected parameters. Continue radiation treatment as planned. Counseled again regarding smoking cessation. Saleem Fitch MD [facility] 04-26-2023 History of Present illness Narrative Radiation Oncology - On Treatment Review (OTR) Note PATIENT NAME: Jeanmaire Faria PATIENT DIAGNOSIS: Ms. Faria is a 57-year-old woman diagnosed with stage III non-small cell lung cancer arising from the left chest who presented with initial compression of the left mainstem bronchus status post placement of pulmonary stent. She was not felt to be a surgical candidate and proceeds to definitive concurrent chemoradiation. PROTOCOL: no COURSE: definitive and concurrent chemotherapy Current dose: 4000 cGy in 20 fx Planned dose: 6000 cGy in 30 fx Status: Patient states there is no possibility she is at this time SUBJECTIVE: Tolerating XRT well and reports no significant change in her breathing and she continues to have dyspnea on exertion and feels that her cough is improved. She denies any mopped assist and notes continued resolution of her chest discomfort and feels that her voice is slightly better. She is able to swallow fairly well and able to eat all consistencies. She does endorse fatigue with stable appetite and hydration and weight. She did start a tapering course of prednisone per Dr. Rodriguez. PHYSICAL EXAM: Area Assessed: Chest KPS: 80 General Appearance: Alert and oriented. No acute distress. Chest: No respiratory distress. IMAGING/LAB RESULTS: None TOXICITY ASSESSMENT (CTC v4.0): Fatigue: grade 1 - Fatigue relieved by rest Weight loss: grade 0 - No weight loss Nausea:Grade 0 - No Symptoms Radiation Dermatitis:grade 0 - No symptoms Dysphagia: grade 0 - No symptoms Esophageal Pain: Grade 0 - No symptoms Dyspnea: grade 1 (Shortness of breath with moderate exertion) Treatment chart checked: Yes Patient treatment site reviewed and verified:Yes Port films reviewed and current:Yes Medications started: None ASSESSMENT/PLAN: Clinically stable. Toxicity within expected parameters. Continue radiation treatment as planned. Counseled again regarding smoking cessation. Saleem Fitch MD documented in this encounter [facility] 04-26-2023 Nurse Note Status: Post-menopausal. documented in this encounter [facility] 04-19-2023 Note HNO ID: [id number] Author: Saleem Fitch MD Service: ? Author Type: Physician Type: Progress Notes Filed: 05/02/2023 9:30 PM Note Text: Radiation Oncology - On Treatment Review (OTR) Note PATIENT NAME: Jeanmarie Faria PATIENT DIAGNOSIS: Ms. Faria is a 57-year-old woman diagnosed with stage III non-small cell lung cancer arising from the left chest who presented with initial compression of the left mainstem bronchus status post placement of pulmonary stent. She was not felt to be a surgical candidate and proceeds to definitive concurrent chemoradiation. PROTOCOL: no COURSE: definitive and concurrent chemotherapy Current dose: 3400 cGy in 17 fx Planned dose: 6000 cGy in 30 fx Status: Patient states there is no possibility she is at this time SUBJECTIVE: Tolerating XRT well with no worsening of her breathing and stable cough and denies any hemoptysis. She is able to swallow consistencies and notes resolution of her chest discomfort. She does have hoarseness of her voice. She endorses fatigue with stable appetite and hydration and weight. PHYSICAL EXAM: Area Assessed: Chest KPS: 90 General Appearance: Alert and oriented. No acute distress. Chest: No respiratory distress. IMAGING/LAB RESULTS: None TOXICITY ASSESSMENT (CTC v4.0): Fatigue: grade 1 - Fatigue relieved by rest Weight loss: grade 0 - No weight loss Nausea:Grade 0 - No Symptoms Radiation Dermatitis:grade 0 - No symptoms Dysphagia: grade 1 - Symptomatic, able to eat regular diet Esophageal Pain: Grade 1 - Mild pain Dyspnea: grade 1 (Shortness of breath with moderate exertion) Treatment chart checked: Yes Patient treatment site reviewed and verified:Yes Port films reviewed and current:Yes Medications started: None ASSESSMENT/PLAN: Clinically stable. Toxicity within expected parameters. Continue radiation treatment as planned. Discussed with Dr. Rodriguez and x-ray of her chest showed that her pulmonary stent was in place and no abnormalities in her lung fletcher. He will consider adding a tapering dose of steroids. Saleem Fitch MD [facility] 04-19-2023 History of Present illness Narrative Radiation Oncology - On Treatment Review (OTR) Note PATIENT NAME: Jeanmarie Faria PATIENT DIAGNOSIS: Ms. Faria is a 57-year-old woman diagnosed with stage III non-small cell lung cancer arising from the left chest who presented with initial compression of the left mainstem bronchus status post placement of pulmonary stent. She was not felt to be a surgical candidate and proceeds to definitive concurrent chemoradiation. PROTOCOL: no COURSE: definitive and concurrent chemotherapy Current dose: 3400 cGy in 17 fx Planned dose: 6000 cGy in 30 fx Status: Patient states there is no possibility she is at this time SUBJECTIVE: Tolerating XRT well with no worsening of her breathing and stable cough and denies any hemoptysis. She is able to swallow consistencies and notes resolution of her chest discomfort. She does have hoarseness of her voice. She endorses fatigue with stable appetite and hydration and weight. PHYSICAL EXAM: Area Assessed: Chest KPS: 90 General Appearance: Alert and oriented. No acute distress. Chest: No respiratory distress. IMAGING/LAB RESULTS: None TOXICITY ASSESSMENT (CTC v4.0): Fatigue: grade 1 - Fatigue relieved by rest Weight loss: grade 0 - No weight loss Nausea:Grade 0 - No Symptoms Radiation Dermatitis:grade 0 - No symptoms Dysphagia: grade 1 - Symptomatic, able to eat regular diet Esophageal Pain: Grade 1 - Mild pain Dyspnea: grade 1 (Shortness of breath with moderate exertion) Treatment chart checked: Yes Patient treatment site reviewed and verified:Yes Port films reviewed and current:Yes Medications started: None ASSESSMENT/PLAN: Clinically stable. Toxicity within expected parameters. Continue radiation treatment as planned. Discussed with Dr. Rodriguez and x-ray of her chest showed that her pulmonary stent was in place and no abnormalities in her lung fletcher. He will consider adding a tapering dose of steroids. Saleem Fitch MD documented in this encounter [facility] 04-18-2023 Note HNO ID: [id number] Author: Bri Bernard LMT Service: ? Author Type: Therapist Type: Progress Notes Filed: 04/18/2023 2:21 PM Note Text: Patient Name: Jeanmarie Faria : 1965 Referred For: CHAIR MASSAGE Diagnosis: MUSCLE SORENESS Chief Complaint: Pain Anxiety (pre): 0 Pain (pre): patient declined to answer Stress Level (pre): 0 Therapy Provided: Massage Therapy Area(s) Treated: NECK AND SHOULDERS Anxiety (post): 0 Pain (post): patient declined to answer Stress Level (post): 0 Visit Outcome: Better Comments: PATIENT STATES OF MUSCLE SORENESS BETWEEN THE SHOULDER BLADES AND NECK SORENESS Treatment Plan: MYOFASCIAL RELEASE BILATERAL SCAPULA AND NECK Care Team contacted: N/A Signature: Bri Bernard LMT Date: April 18, 2023 Time: 2:18 PM [facility] 04-18-2023 History of Present illness Narrative Patient Name: Jeanmarie Faria : 1965 Referred For: CHAIR MASSAGE Diagnosis: MUSCLE SORENESS Chief Complaint: Pain Anxiety (pre): 0 Pain (pre): patient declined to answer Stress Level (pre): 0 Therapy Provided: Massage Therapy Area(s) Treated: NECK AND SHOULDERS Anxiety (post): 0 Pain (post): patient declined to answer Stress Level (post): 0 Visit Outcome: Better Comments: PATIENT STATES OF MUSCLE SORENESS BETWEEN THE SHOULDER BLADES AND NECK SORENESS Treatment Plan: MYOFASCIAL RELEASE BILATERAL SCAPULA AND NECK Care Team contacted: N/A Signature: Bri Bernard LMT Date: April 18, 2023 Time: 2:18 PM documented in this encounter [facility] 04-12-2023 Note HNO ID: [id number] Author: Saleem Fitch MD Service: ? Author Type: Physician Type: Progress Notes Filed: 04/12/2023 5:17 PM Note Text: Radiation Oncology - On Treatment Review (OTR) Note PATIENT NAME: Jeanmarie Faria PATIENT DIAGNOSIS: Ms. Faria is a 57-year-old woman diagnosed with stage III non-small cell lung cancer arising from the left chest who presented with initial compression of the left mainstem bronchus status post placement of pulmonary stent. She was not felt to be a surgical candidate and proceeds to definitive concurrent chemoradiation. PROTOCOL: no COURSE: definitive and concurrent chemotherapy Current dose: 2400 cGy in 12 fx Planned dose: 6000 cGy in 30 fx Status: Patient states there is no possibility she is at this time SUBJECTIVE: Started noticed throat pain and hoarseness over the weekend with increasing cough. She is still able to swallow and eat most foods. She also notes discomfort in the middle of her chest although her posterior pain between her shoulder blades is improved. She feels that her dyspnea on exertion is slightly worse. Her cough is productive for clear phlegm and no hemoptysis. She does note fatigue with stable appetite and hydration. Last 5 Encounter Wt Readings: Date: Wt: 04/12/2023 73.9 kg (163 lb) 04/05/2023 72.6 kg (160 lb) 03/08/2023 73.5 kg (162 lb) PHYSICAL EXAM: Area Assessed: Chest KPS: 90 General Appearance: Alert and oriented. No acute distress. Chest: No respiratory distress. IMAGING/LAB RESULTS: None TOXICITY ASSESSMENT (CTC v4.0): Fatigue: grade 1 - Fatigue relieved by rest Weight loss: grade 0 - No weight loss Nausea:Grade 0 - No Symptoms Radiation Dermatitis:grade 0 - No symptoms Dysphagia: grade 1 - Symptomatic, able to eat regular diet Esophageal Pain: Grade 1 - Mild pain Dyspnea: grade 1 (Shortness of breath with moderate exertion) Treatment chart checked: Yes Patient treatment site reviewed and verified:Yes Port films reviewed and current:Yes Medications started: None ASSESSMENT/PLAN: Clinically stable. Toxicity within expected parameters. Continue radiation treatment as planned. She met with Dr. Rodriguez as she received her chemotherapy and was prescribed Tessalon Perles for her cough and has a prior prescription for Magic mouthwash which she has not started using yet. As throat pain and esophagitis worsen she was encouraged to start using the Magic mouthwash for pain relief and to help with swallowing. She was also encouraged to start using anti-inflammatory in addition to her pain medication. Currently afebrile with no obvious signs of infection but will continue to monitor. Saleem Fitch MD [facility] 04-11-2023 Miscellaneous Notes LM for pt to CB regarding missed XRT appt. Nilsa Deal RN documented in this encounter [facility] 04-05-2023 Note HNO ID: [id number] Author: Saleem Fitch MD Service: ? Author Type: Physician Type: Progress Notes Filed: 04/05/2023 12:49 PM Note Text: Radiation Oncology - On Treatment Review (OTR) Note PATIENT NAME: Jeanmarie Faria PATIENT DIAGNOSIS: Ms. Faria is a 57-year-old woman diagnosed with stage III non-small cell lung cancer arising from the left chest who presented with initial compression of the left mainstem bronchus status post placement of pulmonary stent. She was not felt to be a surgical candidate and proceeds to definitive concurrent chemoradiation. PROTOCOL: no COURSE: definitive and concurrent chemotherapy Current dose: 1400 cGy in 7 fx Planned dose: 6000 cGy in 30 fx Status: Patient states there is no possibility she is at this time SUBJECTIVE: Tolerating XRT well and breathing well overall but has noted increasing cough especially in the morning with difficulty getting up phlegm. She denies any hemoptysis and notes improvement in her posterior chest discomfort. She still able to eat all consistencies but does need to take smaller bites. She endorses mild fatigue with fair appetite and hydration and supplements with strawberry Ensure. Last 5 Encounter Wt Readings: Date: Wt: 04/05/2023 72.6 kg (160 lb) 03/08/2023 73.5 kg (162 lb) PHYSICAL EXAM: Area Assessed: Chest KPS: 90 General Appearance: Alert and oriented. No acute distress. Chest: No respiratory distress. IMAGING/LAB RESULTS: None TOXICITY ASSESSMENT (CTC v4.0): Fatigue: grade 1 - Fatigue relieved by rest Weight loss: grade 0 - No weight loss Nausea:Grade 0 - No Symptoms Radiation Dermatitis:grade 0 - No symptoms Dysphagia: grade 1 - Symptomatic, able to eat regular diet Esophageal Pain: Grade 1 - Mild pain Dyspnea: grade 1 (Shortness of breath with moderate exertion) Treatment chart checked: Yes Patient treatment site reviewed and verified:Yes Port films reviewed and current:Yes Medications started: None ASSESSMENT/PLAN: Clinically stable. Toxicity within expected parameters. Continue radiation treatment as planned. Discussed adding Mucinex and increasing hydration to help with expectoration. Saleem Fitch MD [facility] 04-05-2023 History of Present illness Narrative Radiation Oncology - On Treatment Review (OTR) Note PATIENT NAME: Jeanmarie Faria PATIENT DIAGNOSIS: Ms. Faria is a 57-year-old woman diagnosed with stage III non-small cell lung cancer arising from the left chest who presented with initial compression of the left mainstem bronchus status post placement of pulmonary stent. She was not felt to be a surgical candidate and proceeds to definitive concurrent chemoradiation. PROTOCOL: no COURSE: definitive and concurrent chemotherapy Current dose: 1400 cGy in 7 fx Planned dose: 6000 cGy in 30 fx Status: Patient states there is no possibility she is at this time SUBJECTIVE: Tolerating XRT well and breathing well overall but has noted increasing cough especially in the morning with difficulty getting up phlegm. She denies any hemoptysis and notes improvement in her posterior chest discomfort. She still able to eat all consistencies but does need to take smaller bites. She endorses mild fatigue with fair appetite and hydration and supplements with strawberry Ensure. Last 5 Encounter Wt Readings: Date: Wt: 04/05/2023 72.6 kg (160 lb) 03/08/2023 73.5 kg (162 lb) PHYSICAL EXAM: Area Assessed: Chest KPS: 90 General Appearance: Alert and oriented. No acute distress. Chest: No respiratory distress. IMAGING/LAB RESULTS: None TOXICITY ASSESSMENT (CTC v4.0): Fatigue: grade 1 - Fatigue relieved by rest Weight loss: grade 0 - No weight loss Nausea:Grade 0 - No Symptoms Radiation Dermatitis:grade 0 - No symptoms Dysphagia: grade 1 - Symptomatic, able to eat regular diet Esophageal Pain: Grade 1 - Mild pain Dyspnea: grade 1 (Shortness of breath with moderate exertion) Treatment chart checked: Yes Patient treatment site reviewed and verified:Yes Port films reviewed and current:Yes Medications started: None ASSESSMENT/PLAN: Clinically stable. Toxicity within expected parameters. Continue radiation treatment as planned. Discussed adding Mucinex and increasing hydration to help with expectoration. Saleem Fitch MD documented in this encounter [facility] 04-05-2023 Nurse Note Status: Post-menopausal. documented in this encounter [facility] 03-28-2023 Note HNO ID: [id number] Author: Saleem Fitch MD Service: ? Author Type: Physician Type: Progress Notes Filed: 04/04/2023 9:59 PM Note Text: Radiation Oncology - On Treatment Review (OTR) Note PATIENT NAME: Jeanmarie Faria PATIENT DIAGNOSIS: Ms. Faria is a 57-year-old woman diagnosed with stage III non-small cell lung cancer arising from the left chest who presented with initial compression of the left mainstem bronchus status post placement of pulmonary stent. She was not felt to be a surgical candidate and proceeds to definitive concurrent chemoradiation. PROTOCOL: no COURSE: definitive and concurrent chemotherapy Current dose: 200 cGy in 1 fx Planned dose: 6000 cGy in 30 fx Status: Patient states there is no possibility she is at this time SUBJECTIVE: Tolerated first fraction of XRT well and reports no significant changes from the time of simulation. She continues to note breathing well with the placement of her stent with mild cough mostly in the mornings. She does have mucus production but denies hemoptysis and still does note pain between her shoulder blades which is improved. She endorses fatigue with decreased appetite and fair hydration. PHYSICAL EXAM: Area Assessed: Chest KPS: 90 General Appearance: Alert and oriented. No acute distress. Chest: No respiratory distress. IMAGING/LAB RESULTS: None TOXICITY ASSESSMENT (CTC v4.0): Fatigue: grade 1 - Fatigue relieved by rest Weight loss: grade 0 - No weight loss Nausea:Grade 0 - No Symptoms Radiation Dermatitis:grade 0 - No symptoms Dysphagia: grade 0 - No symptoms Esophageal Pain: Grade 0 - No symptoms Dyspnea: grade 1 (Shortness of breath with moderate exertion) Treatment chart checked: Yes Patient treatment site reviewed and verified:Yes Port films reviewed and current:Yes Medications started: None ASSESSMENT/PLAN: Clinically stable. No signs of toxicity. Continue radiation treatment as planned. We reviewed general precautions/instructions during radiation treatment to the chest as well as the potential acute toxicities during treatment and their time course. Discussed the importance of a well-balanced diet, hydration, and exercise/activity as tolerated through the course of treatment. Saleem Fitch MD [facility] 03-28-2023 History of Present illness Narrative Radiation Oncology - On Treatment Review (OTR) Note PATIENT NAME: Jeanmarie Faria PATIENT DIAGNOSIS: Ms. Faria is a 57-year-old woman diagnosed with stage III non-small cell lung cancer arising from the left chest who presented with initial compression of the left mainstem bronchus status post placement of pulmonary stent. She was not felt to be a surgical candidate and proceeds to definitive concurrent chemoradiation. PROTOCOL: no COURSE: definitive and concurrent chemotherapy Current dose: 200 cGy in 1 fx Planned dose: 6000 cGy in 30 fx Status: Patient states there is no possibility she is at this time SUBJECTIVE: Tolerated first fraction of XRT well and reports no significant changes from the time of simulation. She continues to note breathing well with the placement of her stent with mild cough mostly in the mornings. She does have mucus production but denies hemoptysis and still does note pain between her shoulder blades which is improved. She endorses fatigue with decreased appetite and fair hydration. PHYSICAL EXAM: Area Assessed: Chest KPS: 90 General Appearance: Alert and oriented. No acute distress. Chest: No respiratory distress. IMAGING/LAB RESULTS: None TOXICITY ASSESSMENT (CTC v4.0): Fatigue: grade 1 - Fatigue relieved by rest Weight loss: grade 0 - No weight loss Nausea:Grade 0 - No Symptoms Radiation Dermatitis:grade 0 - No symptoms Dysphagia: grade 0 - No symptoms Esophageal Pain: Grade 0 - No symptoms Dyspnea: grade 1 (Shortness of breath with moderate exertion) Treatment chart checked: Yes Patient treatment site reviewed and verified:Yes Port films reviewed and current:Yes Medications started: None ASSESSMENT/PLAN: Clinically stable. No signs of toxicity. Continue radiation treatment as planned. We reviewed general precautions/instructions during radiation treatment to the chest as well as the potential acute toxicities during treatment and their time course. Discussed the importance of a well-balanced diet, hydration, and exercise/activity as tolerated through the course of treatment. Saleem Fitch MD documented in this encounter [facility] 03-28-2023 Nurse Note Aromatherapy to promote a healing environment. TYPE: container SCENT: citrus blend Aromatherapy education materials were provided and reviewed with the patient. Toney Bailon LPN documented in this encounter [facility] 03-28-2023 Nurse Note Radiation Therapy - Patient Education Note PATIENT NAME: Jeanmarie Faria PATIENT March 28, 2023 [facility] FACILITY/LOCATION: [facility] READINESS TO LEARN Cognitive Ability: Alert and oriented Motivation to learn: Interested Family Support: High - Very involved in pt care Instruction provide to: Patient and Family member Patient learns best by: Multiple Methods Factors effecting learning: None Physical limitations effecting learning: None LEARNING RESPONSE Diagnosis: Pt simulated today for radiation therapy to the lung. Education Topic/Teaching Points: Radiation therapy, Side effects, and OTV: Method of instruction: Written instruction - handouts Verbal instruction Patient /Family response: Patient and family verbalized understanding of radiation treatments, side effects, OTV, and transportation. Follow-up plan: Recommend - Recommend continued instruction and follow up as directed Supplemental material: Informational handouts on Fatigue, Skin changes, and managing swallowing difficulties, patient education binder. Referral (recommendation): None, Pt denied need for social work, van service, and contract modeler. Patient is scheduled to see contract modeler at [facility]. Was approved? No Signed by: Toney Bailon LPN documented in this encounter [facility] 03-28-2023 Nurse Note Status: Patient states there is no possibility she is at this time. documented in this encounter [facility] 03-28-2023 Note Education (RUY) JEANMARIE FARIA ([id number]) 1965 F Date Time Provider Department 03/28/23 TONEY BAILON Reason for Visit: Patient Education [91] Visit Notes: >> Toney Bailon LPN Tue Mar 28, 2023 3:21 PM Status: Signed Radiation Therapy - Patient Education Note PATIENT NAME: Jeanmarie Faria PATIENT March 28, 2023 [facility] FACILITY/LOCATION: [facility] READINESS TO LEARN Cognitive Ability: Alert and oriented Motivation to learn: Interested Family Support: High - Very involved in pt care Instruction provide to: Patient and Family member Patient learns best by: Multiple Methods Factors effecting learning: None Physical limitations effecting learning: None LEARNING RESPONSE Diagnosis: Pt simulated today for radiation therapy to the lung. Education Topic/Teaching Points: Radiation therapy, Side effects, and OTV: Method of instruction: Written instruction - handouts Verbal instruction Patient /Family response: Patient and family verbalized understanding of radiation treatments, side effects, OTV, and transportation. Follow-up plan: Recommend - Recommend continued instruction and follow up as directed Supplemental material: Informational handouts on Fatigue, Skin changes, and managing swallowing difficulties, patient education binder. Referral (recommendation): None, Pt denied need for social work, van service, and contract modeler. Patient is scheduled to see contract modeler at [facility]. Was approved? No Signed by: Toney Bailon LPN During your visit today, we recorded the following information about you: Allergies As of Date: 03/28/2023 (No Known Allergies) Date Reviewed: 03/28/2023 Reviewed by: Toney Bailon LPN - Fully Assessed Prescriptions as of 03/28/2023 - prochlorperazine (COMPAZINE) 10 mg tablet Take 10 mg by mouth every 8 hours as needed. - iv contrast (will be provided with radiology test) MRI Brain Inject, intravenously, once for 1 dose.No IV access, insert saline lock prior to beginning of sedation, infusion, injection of imaging exam.Discontinue saline lock post exam. If Pt. has a central line or IVAD, may access for administration according to line specific nursing protocol.Once exam is complete flush line and de-access according to line specific nursing protocol in the MR contrast administration guidelines link - albuterol HFA (PROVENTIL HFA, VENTOLIN HFA) 90 mcg/actuation inhaler inhale 2 puffs by mouth and INTO THE LUNGS every 6 hours if neede... (REFER TO PRESCRIPTION NOTES). - amoxicillin-clavulanic acid (AUGMENTIN) 875-125 mg per tablet TAKE ONE TABLET BY MOUTH IN THE MORNING AND AT BEDTIME - aspirin, enteric coated (ASPIRIN, ENTERIC COATED) 81 mg EC tablet Take 81 mg by mouth. - atorvastatin (LIPITOR) 80 mg tablet - isosorbide mononitrate ER (IMDUR) 30 mg 24 hr tablet Take 1 tablet by mouth every afternoon. - metoprolol succinate ER (TOPROL XL) 50 mg 24 hr tablet Take 50 mg by mouth. - nitroglycerin sublingual (NITROQUICK) 0.[address] 1 tablet under the tongue if needed every 5 minutes for shama... (REFER TO PRESCRIPTION NOTES). - Omeprazole Magnesium 20 mg tablet Take 20 mg by mouth. - predniSONE (DELTASONE) 20 mg tablet Take 40 mg by mouth every morning. - BRILINTA 90 mg tablet Take 1 tablet by mouth every 12 hours 6am/6pm. - traMADol (ULTRAM) 50 mg tablet Take 50 mg by mouth every 6 hours as needed. Encounter Status:Closed by TONEY BAILON on 03/28/23 [facility] 03-23-2023 Miscellaneous Notes I notified Jeanmarie of her upcoming new start appointment. She is scheduled for 03/28/23 at 2:30. Patient is in agreement with this appt. Toney Bailon LPN documented in this encounter [facility] 03-22-2023 Note HNO ID: [id number] Author: Saleem Fitch MD Service: ? Author Type: Physician Type: Progress Notes Filed: 03/21/2023 11:27 PM Note Text: Radiation Oncology - New Patient/Consult Note PATIENT NAME: Jeanmarie Faria PATIENT REQUESTING PHYSICIAN: Archana Rodriguez MD DIAGNOSIS: Locally advanced non-small lung cancer (staging pending) PATIENT IDENTIFICATION: This patient was seen in the Department of Radiation Oncology at the [facility] with Saleem Fitch MD. Final recommendations will be communicated back to the requesting physician by way of the shared medical record, or letter to requesting physician via [place] mail. HISTORY OF PRESENT ILLNESS: Ms. Faria is a 57-year-old woman in [place], [place] who was found to have a mediastinal mass on CT examination of the chest from 02/19/2023 when she was admitted at the hospital with acute respiratory failure with hypoxia and COPD exacerbation as well as midsternal pleuritic chest pain radiating to her back. The mediastinal mass was noted to compress the airway at the level of the landry/left mainstem bronchus. She was discharged home on steroids as well as broad-spectrum antibiotics, inhaled bronchodilators and 2 L oxygen. She then met with Dr. Rodriguez medical oncology at [facility] and referred to still operator brandy Dr. Foss as an outpatient. 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 She is referred today to the radiation medicine clinic to have a discussion regarding the role of radiation therapy in the treatment of her lung cancer including potential rapid/palliative intervention for alleviation of her airway compression with plans to complete staging work-up with PET/CT as well as MRI of the brain. INTERVAL/HISTORY/REVIEW OF SYSTEMS: Ms. Faria continues to have shortness of breath including at rest and uses a rescue/albuterol inhaler but is not using supplemental oxygen. She does not feel it has been substantial improvement in her breathing since admission. She feels that her coughing is also worse which she denies any hemoptysis or difficulty swallowing. She continues to note discomfort in her chest radiating towards her back/shoulder is worse with breathing. She denies any recent unexplained weight loss. Reports have been diagnosed with COPD over the past year and having had an AK approximately a year ago. She does note a headache as well as dizziness/lightheadedness but otherwise denies any recent fevers/chills, changes in weight/appetite, difficulty with speech/swallowing, abdominal pain, nausea/vomiting, change in bowel/urinary function, difficulty with gait/balance. The remainder of the review of systems was performed and was otherwise non-contributory except as described above. PAST MEDICAL HISTORY: PAST MEDICAL HISTORY Diagnosis Date COPD (chronic obstructive pulmonary disease) (HCC) Heart attack (HCC) HTN (hypertension) Hypercholesteremia PAST SURGICAL HISTORY: PAST SURGICAL HISTORY Procedure Laterality Date APPENDECTOMY HERNIA REPAIR HX HYSTERECTOMY HX PAST SURGICAL HISTORY OF cardiac stent placement x 3 stents FAMILY HISTORY: History reviewed. No pertinent family history. SOCIAL HISTORY: Ms. Faria is and lives in the [place], [place] area. 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 She notes an approximate 60-[id number]-[id number] history of smoking and has reduced down to approximately half a pack per day. Denies any alcohol use. RADIATION HISTORY: The patient denies any history of therapeutic radiation. ALLERGIES: ALLERGIES No Known Allergies MEDICATIONS: Current Outpatient Medications: albuterol HFA (PROVENTIL HFA, VENTOLIN HFA) 90 mcg/actuation inhaler amoxicillin-clavulanic acid (AUGMENTIN) 875-125 mg per tablet aspirin, enteric coated (ASPIRIN, ENTERIC COATED) 81 mg EC tablet atorvastatin (LIPITOR) 80 mg tablet isosorbide mononitrate ER (IMDUR) 30 mg 24 hr tablet metoprolol succinate ER (TOPROL XL) 50 mg 24 hr tablet nitroglycerin sublingual (NITROQUICK) 0.4 mg SL tablet Omeprazole Magnesium 20 mg tablet predniSONE (DELTASONE) 20 mg tablet BRILINTA 90 mg tablet traMADol (ULTRAM) 50 mg tablet HYDROcodone-acetaminophen (HYCET) 7.5-325 mg/15 mL oral liquid iv contrast (will be provided with radiology test) PHYSICAL EXAMINATION: GENERAL: middle-aged woman sitting in chair, in no acute distress. VITALS: BP 144/96 Pulse 76 Temp 98.1 Resp 18 Ht 5' 3.5 (1.61m) Wt 162 lb (73.5kg) SpO2 97% BMI 28.24 kg/(m2). KPS: 80 HEENT: NC/AT, anicteric sclera HEART: S1S2 LUNGS: persistent cough and somewhat labored breathing ABDOMEN: soft MUSCULOSKELETAL: no peripheral edema, moves all extremities. NEURO: no focal deficit; AANDO X3. PATHOLOGIC DATA: 03/03/2023 (more content not included)... [facility] 03-18-2023 Note HNO ID: [id number] Author: Saleem Fitch MD Service: ? Author Type: Physician Type: Progress Notes Filed: 03/29/2023 4:58 AM Note Text: Radiation Oncology - Follow Up Note PATIENT NAME: Jeanmarie Faria PATIENT DIAGNOSIS/PATIENT IDENTIFICATION: Ms. 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 Foss and has met with Dr. Rodriguez in medical oncology. She was referred to the radiation medicine clinic to have a discussion regarding the role of radiation therapy in the treatment of her lung cancer. After her visit and discussion with Dr. Rodriguez and Dr. Foss, decision was made to move forward with pulmonary stent placement for immediate relief and allow adequate time for staging work-up. Ms. Faria returns to clinic today for follow-up as previously discussed during consultation on 03/08/2023. In the interim, she underwent successful placement of pulmonary stent by Dr. Foss on 03/10/2023. She then had PET/CT on 03/15/2023 which confirmed hypermetabolic lymphadenopathy involving the right hilum and left mediastinum with a few small non-hypermetabolic pulmonary nodules. Also noted was hypermetabolic lymph nodes in the left supraclavicular region consistent with metastatic disease. No other definite areas of regional or distant disease were identified. She is still scheduled for an MRI of the brain to complete her staging work-up. Today the patient reports breathing much better since the placement of her stent with improvement in her cough but still has persistent discomfort between her shoulder blades. I discussed the results with Dr. Rodriguez and we will plan to move forward with definitive concurrent chemoradiation. We again briefly reviewed the rationale, logistics, and toxicity of radiation therapy to the chest and left neck in this definitive setting including esophagitis. After all of her questions were answered, informed consent was obtained. She will proceed to CT simulation following this visit to begin treatment planning and I anticipate starting radiation shortly in coordination with Dr. Rodriguez/chemotherapy. Thank you for allowing us to participate in the care of this patient. RADIOLOGIC DATA: PET/CT (03/15/2023) IMPRESSION: HEAD/NECK: * Clustered left supraclavicular hypermetabolic lymph nodes, probably metastatic CHEST: * Hypermetabolic lymphadenopathy involving the right hilum and left mediastinal region, probably metastatic. * Few small nonhypermetabolic pulmonary nodules. ABDOMEN/PELVIS: * No FDG avid neoplastic process. BONES/EXTREMITIES: * No suspicious FDG avid osseous lesion. HEAD AND NECK: Physiologic uptake in the visualized brain, extraocular muscles, parapharyngeal soft tissues, base of tongue, salivary glands, and vocal cords. Head AND Neck: Symmetric physiologic parenchymal activity without a focal tracer avid lesion. Lymph nodes: Multiple clustered level left supraclavicular subcentimeter hypermetabolic nodes (Max SUV:6.0; image 4:68). Thyroid: No tracer avid lesion. CHEST: Devices: Right subcutaneous port with tip terminating in the right atrium. Lungs AND Airways: No tracer avid consolidation, mass, or nodule. A few nonhypermetabolic pulmonary nodules are present, for example: 8 mm left upper lobe nodule (4:79), and 3 mm right middle lobe nodule (4:133) * Please note, PET/CT is not sensitive for pulmonary nodules less than than 8 mm. Pleura: No tracer avid lesion. No pleural effusion. Mediastinum: No tracer avid mass. Lymph Nodes: Multiple hypermetabolic lymph nodes includin.7 cm right hilar (Max SUV:10.7; image 4:106) and a subcentimeter right hilar (Max SUV:4.9; image 4:114). Focal Hypermetabolism measuring about 2.9 x 2.3 cm adjacent to the proximal aortic arch may represent hypermetabolic left paratracheal/para-aortic lymph node conglomerate (Max SUV:6.9; image 4:95). Cardiovascular: Physiologic blood pool and myocardial activity. Atherosclerotic calcification without thoracic aortic aneurysm. Triple vessel coronary artery calcifications. Chest Wall: No tracer avid lesion. Signed by: Saleem Fitch MD I spent a total of 15 minutes on the date of the service which included preparing to see the patient, [id number] patient care, counseling and educating the patient/family/caregiver, and communicating results to the patient/family/caregiver. This document has been created with the use of voice recognition technology. It may contain inaccuracies, misspellings, inaccurate syntax or inappropriate word context that are a result of the inadequacies/shortcomings of said technology/software. [facility] 03-17-2023 History of Present illness Narrative Radiation Oncology - Follow Up Note PATIENT NAME: Jeanmarie Faria PATIENT DIAGNOSIS/PATIENT IDENTIFICATION: Ms. 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 Foss and has met with Dr. Rodriguez in medical oncology. She was referred to the radiation medicine clinic to have a discussion regarding the role of radiation therapy in the treatment of her lung cancer. After her visit and discussion with Dr. Rodriguez and Dr. Foss, decision was made to move forward with pulmonary stent placement for immediate relief and allow adequate time for staging work-up. Ms. Faria returns to clinic today for follow-up as previously discussed during consultation on 03/08/2023. In the interim, she underwent successful placement of pulmonary stent by Dr. Foss on 03/10/2023. She then had PET/CT on 03/15/2023 which confirmed hypermetabolic lymphadenopathy involving the right hilum and left mediastinum with a few small non-hypermetabolic pulmonary nodules. Also noted was hypermetabolic lymph nodes in the left supraclavicular region consistent with metastatic disease. No other definite areas of regional or distant disease were identified. She is still scheduled for an MRI of the brain to complete her staging work-up. Today the patient reports breathing much better since the placement of her stent with improvement in her cough but still has persistent discomfort between her shoulder blades. I discussed the results with Dr. Rodriguez and we will plan to move forward with definitive concurrent chemoradiation. We again briefly reviewed the rationale, logistics, and toxicity of radiation therapy to the chest and left neck in this definitive setting including esophagitis. After all of her questions were answered, informed consent was obtained. She will proceed to CT simulation following this visit to begin treatment planning and I anticipate starting radiation shortly in coordination with Dr. Rodriguez/chemotherapy. Thank you for allowing us to participate in the care of this patient. RADIOLOGIC DATA: PET/CT (03/15/2023) IMPRESSION: HEAD/NECK: * Clustered left supraclavicular hypermetabolic lymph nodes, probably metastatic CHEST: * Hypermetabolic lymphadenopathy involving the right hilum and left mediastinal region, probably metastatic. * Few small nonhypermetabolic pulmonary nodules. ABDOMEN/PELVIS: * No FDG avid neoplastic process. BONES/EXTREMITIES: * No suspicious FDG avid osseous lesion. HEAD AND NECK: Physiologic uptake in the visualized brain, extraocular muscles, parapharyngeal soft tissues, base of tongue, salivary glands, and vocal cords. Head & Neck: Symmetric physiologic parenchymal activity without a focal tracer avid lesion. Lymph nodes: Multiple clustered level left supraclavicular subcentimeter hypermetabolic nodes (Max SUV:6.0; image 4:68). Thyroid: No tracer avid lesion. CHEST: Devices: Right subcutaneous port with tip terminating in the right atrium. Lungs & Airways: No tracer avid consolidation, mass, or nodule. A few nonhypermetabolic pulmonary nodules are present, for example: 8 mm left upper lobe nodule (4:79), and 3 mm right middle lobe nodule (4:133) * Please note, PET/CT is not sensitive for pulmonary nodules less than than 8 mm. Pleura: No tracer avid lesion. No pleural effusion. Mediastinum: No tracer avid mass. Lymph Nodes: Multiple hypermetabolic lymph nodes includin.7 cm right hilar (Max SUV:10.7; image 4:106) and a subcentimeter right hilar (Max SUV:4.9; image 4:114). Focal Hypermetabolism measuring about 2.9 x 2.3 cm adjacent to the proximal aortic arch may represent hypermetabolic left paratracheal/para-aortic lymph node conglomerate (Max SUV:6.9; image 4:95). Cardiovascular: Physiologic blood pool and myocardial activity. Atherosclerotic calcification without thoracic aortic aneurysm. Triple vessel coronary artery calcifications. Chest Wall: No tracer avid lesion. Signed by: Saleem Fitch MD I spent a total of 15 minutes on the date of the service which included preparing to see the patient, [id number] patient care, counseling and educating the patient/family/caregiver, and communicating results to the patient/family/caregiver. This document has been created with the use of voice recognition technology. It may contain inaccuracies, misspellings, inaccurate syntax or inappropriate word context that are a result of the inadequacies/shortcomings of said technology/software. documented in this encounter [facility] 03-17-2023 Note HNO ID: [id number] Author: Saleem Fitch MD Service: ? Author Type: Physician Type: Progress Notes Filed: 03/25/2023 12:33 AM Note Text: JEANMARIE FARIA [id number] 03/17/2023 [facility] Department of Radiation Oncology Treatment Planning Note For reasons stated in the consult note, Jeanmarie Faria is a candidate for radiation therapy. Based on review and interpretation of the relevant diagnostic studies together with the exam findings, Jeanmarie Faria was simulated on 03/17/2023 at which time the target volume and/or requisite fletcher were delineated, as indicated in the simulation note, to be treated according to the prescription. An ITV was created from all the phases of respiratory motion captured by the 4DCT image sets. Motion management allowed for design of patient specific planning target volume and reduced the radiation exposure to normal tissues. The treatment target and organs at risk were contoured on the simulation scan using the fused PET /. Special consideration to these and other structures was given in light of the potential for increased toxicities of combined chemoradiation. Pulmonary function testing was reviewed. After reviewing multiple treatment plans with dosimetry, the best plan was approved to deliver the prescribed course of radiation to the target area using inverse planning to allow for the best isodose distribution, treating to the 97.4% isodose line with 6MV and 2 fletcher. Custom MLC asym jaws for IMRT were the treatment devices used to shape/modify the beams. Limiting dose to normal tissue was confirmed upon review of the calculated dose volume histogram. IMRT planning was used because it best met the dose/volume constraints for the organs at risk for this patient, better than what could be achieved using conventional or 3D planning. The specific dose requirements for the PTV, organs at risk and dose-volume histograms are contained in this treatment plan and/or elsewhere in the medical record. A completed summary of this plan dated 03/24/23 incorporated herein by reference includes dose, beam arrangements, energy, blocking, isodose distribution, and/or ports and DVH. Electronically Signed Saleem Fitch M.D. :10 PM [facility] 03-17-2023 Note HNO ID: [id number] Author: Saleem Fitch MD Service: ? Author Type: Physician Type: Progress Notes Filed: 06/06/2023 9:45 AM Note Text: JEANMARIE FARIA [id number] 03/17/2023 [facility] Radiation Oncology Department SIMULATION NOTE DATE OF SIMULATION: 03/17/2023 THERAPIST: Gayathri Valdez MACHINE: [employer] mCT DIAGNOSIS: C34.82 Malignant neoplasm of overlapping sites of left bronchus and lung AREA: LUNG CONTRAST: IV Oral Consent in Epic: Yes PATIENT POSITION: Supine. FIXATION DEVICE: In order to achieve accurate and reproducible treatments, the patient is immobilized with THE ORFIT AIO SYSTEM. 50ML OF [id number] WAS INJECTED VIA THE RIGHT WRIST SIPS OF 20ML OF [id number] DILUTED IN 450 ML OF WATER WAS GIVEN 4DCT WAS USED TO AID IN TREATMENT PLANNING AND DELIVERY A time-out was conducted and recorded by the therapist. CT scan was completed for target localization and planning. Field arrangement will be determined after plan has been completed. The patient is scheduled for a verification simulation on the treatment machine to ensure proper set-up and field arrangement is correct prior to the first treatment of primary and boost fletcher if applicable. Patient education will be completed per nursing. Electronically Signed Saleem Fitch M.D. / GHANSHYAM :18 PM [facility] 03-17-2023 Note HNO ID: [id number] Author: Saleem Fitch MD Service: ? Author Type: Physician Type: Progress Notes Filed: 03/21/2023 12:34 AM Note Text: JEANMARIE FARIA [id number] 03/17/2023 [facility] Radiation Oncology Department SIMULATION NOTE DATE OF SIMULATION: 03/17/2023 THERAPIST: Gayathri Zur[employer]CAVI [employer] MACHINE: [employer] DIAGNOSIS: AREA: LUNG CONTRAST: IV Oral Consent in Epic: Yes PATIENT POSITION: Supine. FIXATION DEVICE: In order to achieve accurate and reproducible treatments, the patient is immobilized with THE ORFIT AIO SYSTEM. 50ML OF [id number] WAS INJECTED VIA THE RIGHT WRIST SIPS OF 20ML OF [id number] DILUTED IN 450 ML OF WATER WAS GIVEN 4DCT WAS USED TO AID IN TREATMENT PLANNING AND DELIVERY A time-out was conducted and recorded by the therapist. CT scan was completed for target localization and planning. Field arrangement will be determined after plan has been completed. The patient is scheduled for a verification simulation on the treatment machine to ensure proper set-up and field arrangement is correct prior to the first treatment of primary and boost fletcher if applicable. Patient education will be completed per nursing. Electronically Signed Saleem Fitch M.D. / GHANSHYAM 34:08 AM [facility] 03-17-2023 History of Present illness Narrative JEANMARIE FARIA [id number] 03/17/2023 [facility] Radiation Oncology Department SIMULATION NOTE DATE OF SIMULATION: 03/17/2023 THERAPIST: Gayathri ZuritaCAVI [employer] MACHINE: [employer] DIAGNOSIS: C34.82 Malignant neoplasm of overlapping sites of left bronchus and lung AREA: LUNG CONTRAST: IV Oral Consent in Epic: Yes PATIENT POSITION: Supine. FIXATION DEVICE: In order to achieve accurate and reproducible treatments, the patient is immobilized with THE ORFIT AIO SYSTEM. 50ML OF [id number] WAS INJECTED VIA THE RIGHT WRIST SIPS OF 20ML OF [id number] DILUTED IN 450 ML OF WATER WAS GIVEN 4DCT WAS USED TO AID IN TREATMENT PLANNING AND DELIVERY A time-out was conducted and recorded by the therapist. CT scan was completed for target localization and planning. Field arrangement will be determined after plan has been completed. The patient is scheduled for a verification simulation on the treatment machine to ensure proper set-up and field arrangement is correct prior to the first treatment of primary and boost fletcher if applicable. Patient education will be completed per nursing. Electronically Signed Saleem Fitch M.D. / GHANSHYAM 37:18 PM documented in this encounter [facility] 03-17-2023 History of Present illness Narrative JEANMARIE FARIA [id number] 03/17/2023 [facility] Department of Radiation Oncology Treatment Planning Note For reasons stated in the consult note, Jeanmarie Faria is a candidate for radiation therapy. Based on review and interpretation of the relevant diagnostic studies together with the exam findings, Jeanmarie Faria was simulated on 03/17/2023 at which time the target volume and/or requisite fletcher were delineated, as indicated in the simulation note, to be treated according to the prescription. An ITV was created from all the phases of respiratory motion captured by the 4DCT image sets. Motion management allowed for design of patient specific planning target volume and reduced the radiation exposure to normal tissues. The treatment target and organs at risk were contoured on the simulation scan using the fused PET /. Special consideration to these and other structures was given in light of the potential for increased toxicities of combined chemoradiation. Pulmonary function testing was reviewed. After reviewing multiple treatment plans with dosimetry, the best plan was approved to deliver the prescribed course of radiation to the target area using inverse planning to allow for the best isodose distribution, treating to the 97.4% isodose line with 6MV and 2 fletcher. Custom MLC asym jaws for IMRT were the treatment devices used to shape/modify the beams. Limiting dose to normal tissue was confirmed upon review of the calculated dose volume histogram. IMRT planning was used because it best met the dose/volume constraints for the organs at risk for this patient, better than what could be achieved using conventional or 3D planning. The specific dose requirements for the PTV, organs at risk and dose-volume histograms are contained in this treatment plan and/or elsewhere in the medical record. A completed summary of this plan dated 03/24/23 incorporated herein by reference includes dose, beam arrangements, energy, blocking, isodose distribution, and/or ports and DVH. Electronically Signed Saleem Fitch M.D. 35:10 PM documented in this encounter [facility] 03-15-2023 Note HNO ID: [id number] Author: Nancy Sanabria RT(R) Service: ? Author Type: Technologist Type: Progress Notes Filed: 03/15/2023 11:18 AM Note Text: RADIOLOGY SERVICE PROGRESS NOTE SERVICE DATE: 03/15/2023 SERVICE TIME: 11:18 AM PATIENT IDENTITY VERIFICATION COMPLETED USING TWO (2) STANDARD IDENTIFIERS: Name and Date of confirmed by patient verbally POST EXAM PIV STATUS: Discontinued PROCEDURE TYPE: NM INJECT: PET/CT BODY SCAN. 10.6 mCi F18 FDG. No other medications given.. ADMINISTRATION TIME: 0810 PATIENT DISCHARGED TO: Ambulatory patient, left MI department area. A Diagnostic radioactive procedure has taken place, with no further precautions necessary other than routine body substance precautions. More information regarding radiation safety can be found using this link: [email or web address] SIGNATURE: RT Letty(R) PATIENT NAME: Jeanmarie Faria DATE: March 15, 2023 TIME: 11:18 AM PAGER/CONTACT #: [facility] 03-15-2023 Note HNO ID: [id number] Author: Diane Boston RN Service: ? Author Type: Registered Nurse Type: Progress Notes Filed: 03/15/2023 8:06 AM Note Text: Radiology Service Progress Note DATE OF SERVICE: March 15, 2023 TIME: 8:04 AM PATIENT IDENTITY VERIFICATION COMPLETED USING TWO (2) STANDARD IDENTIFIERS: Name and Date of confirmed by patient verbally. FALL SCREENING: Has the patient had 2 falls in the last year or 1 fall with injury or currently using an Ambulatory Assistive Device (Walker, Cane, Wheelchair, Crutches, etc.)? No PATIENT GENDER DATA: Female. status: : No status: NO. EXAM: CT -CONTRAST INDUCED NEPHROPATHY RISK FACTORS: Not applicable CREATININE: No results found for: CREAT , EGFROTH , EGFRAA P.O.C.T. RESULTS: N/A March 15, 2023 TREATMENT: N/A IV SITE: Ambulatory: A peripheral IV was started in the Right antecubital site with a Angio cath: 22 gauge. IV SITE APPEARANCE: Clean,Dry and Intact SIGNATURE: Diane Boston RN PATIENT NAME: Jeanmarie Faria DATE: March 15, 2023 TIME: 8:04 AM [facility] 03-14-2023 Miscellaneous Notes Received Hem/Onc consult notes 03/07/23 from [facility] Record scanned in pernell Alvarez asst documented in this encounter [facility] 03-10-2023 Note Patient: Jeanmarie chavarria Procedure Summary Date: 03/10/23 Room / Location: [facility] Main Operating Room Anesthesia Start: 1102 Anesthesia Stop: 1226 Procedure: BRONCHOSCOPY Diagnosis: Tracheal mass Scheduled Providers: Betito Foss MD; Marielle Germain MD Responsible Provider: Marielle Germain MD Anesthesia Type: general ASA Status: 3 Anesthesia Type: general Vitals Value Taken Time BP 119/79 03/10/23 1225 Temp 36.4 ???C (97.5 ???F) 03/10/23 1225 Pulse 83 03/10/23 1225 Resp 18 03/10/23 1225 SpO2 96 % 03/10/23 1225 Anesthesia Post Evaluation Patient location during evaluation: PACU Patient participation: complete - patient participated Level of consciousness: awake Pain management: adequate Airway patency: patent Cardiovascular status: hemodynamically stable Respiratory status: nasal cannula and nonlabored ventilation Hydration status: euvolemic Patient is hemodynamically stable and is able to be discharged from PACU per anesthesia protocol. There were no known notable events for this encounter. [facility] 03-10-2023 Note Patient: Jeanmarie chavarria Procedure Information Date/Time: 03/10/23 1030 Scheduled providers: Betito Foss MD; Marielle Germain MD Procedure: BRONCHOSCOPY Location: [facility] Main Operating Room Past Medical History: Diagnosis Date ??? COPD (chronic obstructive pulmonary disease) (CMS/HCC) ??? Coronary artery disease ??? Diverticulosis ??? GERD (gastroesophageal reflux disease) ??? History of transfusion ??? Hyperlipidemia ??? Hypertension ??? Irritable bowel syndrome ??? Mediastinal mass ??? Myocardial infarction (CMS/HCC) 11/2021 ??? Spastic colon Past Surgical History: Procedure Laterality Date ??? APPENDECTOMY ??? BREAST BIOPSY Bilateral ??? CARDIAC CATHETERIZATION 3 STENTS ??? CORONARY STENT PLACEMENT ??? EXPLORATORY LAPAROTOMY ??? HERNIA REPAIR ??? HYSTERECTOMY No Known Allergies Estimated Date of Delivery: None noted. Patient Active Problem List Diagnosis ??? Mediastinal mass Scheduled Meds: Continuous Infusions:Oxygen Therapy, PRN Meds:.PRN medications: Oxygen Therapy, Insert peripheral IV AND Saline lock IV AND sodium chloride BP 120/80 Pulse 84 Temp 36.1 ???C (97 ???F) (Temporal) Resp 20 Ht 1.626 m (5' 4 ) Wt 72.5 kg (159 lb 13.3 oz) SpO2 93% BMI 27.44 kg/m??? No lab exists for component: LABALBU Date of Last Liquid: 03/09/23 Date of Last Solid: 03/09/23 Time of Last Liquid: 2300 Time of Last Solid: 1900 No results found for this or any previous visit (from the past 4464 hour(s)). No echocardiogram results found for the past 12 months Relevant Problems No relevant active problems Clinical information reviewed: Tobacco Allergies Meds Med Hx Surg Hx OB Status Fam Hx Soc Hx Physical Exam Airway Mallampati: I TM distance: >3 FB Neck ROM: full Cardiovascular - normal exam Rhythm: regular Rate: normal Dental - normal exam Pulmonary Abdominal - normal exam Other findings: Current smoker; coronary stent 12/14/2021. Anesthesia Plan ASA 3 general The patient is a current smoker. Patient was previously instructed to abstain from smoking on day of procedure. Patient did not smoke on day of procedure. intravenous induction Anesthetic plan and risks discussed with patient and sibling. Plan discussed with resident and medical student. Additional Equipment Requests [facility] 03-10-2023 Miscellaneous Notes Images from the original note were not included. Thoracic Surgery Consultation - review of records for appointment scheduling Received medical records from the office of Archana Rodriguez [facility] [address] [id number] Patient is being referred to Stan Garcia MD, PhD by Archana Rodriguez for Lung Cancer Outside hospital records scanned / Care Everywhere Pathology: Final Diagnosis A. Tracheal mass, EBUS-guided fine needle aspiration: - Most consistent with squamous cell carcinoma (see microscopic description and comment). Comment Immunohistochemistry with controls performed. Lesional cells positive for CK5/6. Focal weak positivity with p63 is identified. In a background of abundant necrosis scantly to moderately cellular are scattered malignant tumor cell clusters and single malignant cells identified. Contact molecular pathology for requests for ancillary molecular testing. Procedures: 03/10/[address] Procedure was done in the OR. The patient was successfully intubated with a 14 mm Storz rigid bronchoscope.. The flexible scope introduced. In the distal portion of the trachea on the left there is a large tumor causing about 30% obstruction. The left main is nearly completely occluded. We were able to advance the scope into the left main. Extensive amount of pus was suctioned from the left side. A 10 x 40 mm Aero stent was placed under direct visualization. The stent was in good position. Tumor debulking of the distal left tracheal mass was performed manually and using APC at 0.6 L, 40 W. Balloon dilatation was performed. We used a 5.5 cm CRE balloon 8, 9, 10. The balloon was inflated up to 10 mm. At the end of the procedure there is minor residual tumor in the distal trachea. The left main is patent with the stent in good position. ebus 03/03/2023 Imaging PET/CT: 03/15/[address] [place] [address] (chest) 02/19/23 Cardiopulmonary Testing PFT's/Six: requested Cardiac: Office Notes/Consults 03/03/2023 Jennifer History of: No family history on file. PAST MEDICAL HISTORY Diagnosis Date COPD (chronic obstructive pulmonary disease) (HCC) Heart attack (HCC) HTN (hypertension) Hypercholesteremia PAST SURGICAL HISTORY Procedure Laterality Date APPENDECTOMY HERNIA REPAIR HX HYSTERECTOMY HX PAST SURGICAL HISTORY OF cardiac stent placement x 3 stents Social History Tobacco Use Smoking status: Every Day Years: 1.00 Types: Cigarettes Smokeless tobacco: Never Substance Use Topics Alcohol use: Not Currently Drug use: Not Currently Request per patient discussion, surgery unable to be apart of the plan, will have dr garcia reach out to the referring MD office and Dr Fitch to discuss PET scan 03/15 at [facility], await results Nancy Beach RN LOCAL PATIENT Received Fax from Dr. Archana Terrykerri Faria is being referred to Stan Garcia M.D., Ph. D. Or Lamonte Guerra by Dr. Archana Rodriguez [address] [place] [id number] Patient diagnosis/Reason for consult: Lung Cancer Referral triage process explained: No Patient will receive a call from Thoracic NPM after triage review with surgeon to discuss any additional testing and/or consults that will be scheduled. Pt will then receive a call from our scheduling office for scheduling. Please call pt at [phone]. Patient was informed consultation could be at [place] or [facility]: No Patient Registration: Registration complete/updated: yes Insurance card(s) scanned in [facility] with in the past year: Yes: Date: 03/08/23 Pt's Bookit[employer] is Pending. Ok to communicate to pt via [employer] not asked Medical Records: Records in [facility] (internal CC records): Yes Imaging in [facility] (internal [facility] records): Yes Care Everywhere - queried yes, downloaded Yes Linked Outside Organizations (list): [facility]; [facility]; [facility] Records Requested: No Date: N/A Outside Hospital(s) requested records from: n/a Received: yes Uploaded: Yes. Waiting on additional records: No. Missing (list): N/A OSH Pathology Slides Requested: no Date: N/A Outside Hospital(s) slides requested from: n/a OSH Radiology Imaging Requested: yes Date: March 08, 2023 Outside Hospital(s) requested imaging from: [facility]. Imaging will be received via Electronic Transfer Received: Yes Imaging uploaded: Yes Waiting on additional: No Missing (list): n/a Additional providers added to Care Teams: Yes Additional Notes/Comments: n/a Enct routed to: Zana Louis NPM for Triage Alber Fernandez, defense travel administrator documented in this encounter [facility] 03-08-2023 Miscellaneous Notes I notified Carla with Dr. Gongora's office, cardiology, that Jeanmarie will be scheduled for a bronchoscopy with pulmonary stent placement with Dr. Foss, Sims still operator brandy, and will need cardiac clearance. I provided Carla with Dr. Foss's phone and fax number and she notify Dr. Gongora. Toney Bailon LPN documented in this encounter [facility] 03-03-2023 Note No concerns as per c all back guidelines [facility] 03-03-2023 Note Patient: Jeanmarie chavarria Procedure Summary Date: 03/03/23 Room / Location: [facility] Main Operating Room Anesthesia Start: 1334 Anesthesia Stop: 1500 Procedure: BRONCHOSCOPY Diagnosis: Mediastinal adenopathy Scheduled Providers: Betito Foss MD; Jacky Yuan MD Responsible Provider: Jacky Yuan MD Anesthesia Type: general ASA Status: 4 Anesthesia Type: general Vitals Value Taken Time BP 85/51 03/03/23 1543 Temp 36.2 ???C (97.2 ???F) 03/03/23 1500 Pulse 88 03/03/23 1548 Resp 22 03/03/23 1548 SpO2 91 % 03/03/23 1548 Vitals shown include unvalidated device data. Anesthesia Post Evaluation Patient location during evaluation: PACU Patient participation: complete - patient participated Level of consciousness: awake and alert Pain score: 2 Pain management: adequate Airway patency: patent Cardiovascular status: acceptable, hemodynamically stable and stable Respiratory status: acceptable Hydration status: euvolemic Patient is hemodynamically stable and is able to be discharged from PACU per anesthesia protocol. No notable events documented. [facility] 03-03-2023 Note Airway Date/Time: 03/03/2023 1:45 PM Urgency: elective Airway not difficult General Information and Staff Patient location during procedure: OR Anesthesiologist: Jacky Yuan MD Resident/RECONNAISSANCE CREWMEMBER/CAA: Isiah Alves MD Performed: resident/RECONNAISSANCE CREWMEMBER/CAA Indications and Patient Condition Indications for airway management: anesthesia Spontaneous ventilation: present Sedation level: deep Preoxygenated: yes Patient position: sniffing Final Airway Details Final airway type: supraglottic airway Successful airway: i-gel Size 4 Number of attempts at approach: 1 Number of other approaches attempted: [address] [facility] 03-03-2023 Note Patient: Jeanmarie chavarria Procedure Summary Date: 03/03/23 Room / Location: [facility] Main Operating Room Anesthesia Start: 1334 Anesthesia Stop: Procedure: BRONCHOSCOPY Diagnosis: Mediastinal adenopathy Scheduled Providers: Betito Foss MD; Jacky Yuan MD Responsible Provider: Jacky Yuan MD Anesthesia Type: general ASA Status: 4 Anesthesia Post Transport Note Transport to: PACU O2 Route: room air Patient Monitor: direct observation Transport: uneventful Patient condition is: stable [facility] 03-03-2023 Note Patient: Jeanmarie chavarria Procedure Information Date/Time: 03/03/23 1330 Scheduled providers: Betito Foss MD; Jacky Yuan MD Procedure: BRONCHOSCOPY Location: [facility] Main Operating Room Relevant Problems No relevant active problems Clinical information reviewed: Tobacco Allergies Meds Med Hx Surg Hx Fam Hx Soc Hx Physical Exam Airway Mallampati: II TM distance: >3 FB Neck ROM: full Cardiovascular - normal exam Rhythm: regular Rate: normal Dental - normal exam Pulmonary - normal exam Abdominal - normal exam Abdomen: soft Bowel sounds: normal Other findings: Mediastinal mass - CP and SOB for 2 months which prompted workup. Sitting up and left side is most comfortable for pain and breathing. CAD s/p 3 stents HTN Front caps Smoker daily, COPD Past Medical History: No date: COPD (chronic obstructive pulmonary disease) (CMS/HCC) No date: Coronary artery disease No date: Diverticulosis No date: GERD (gastroesophageal reflux disease) No date: History of transfusion No date: Hyperlipidemia No date: Hypertension No date: Irritable bowel syndrome No date: Mediastinal mass 11/2021: Myocardial infarction (CMS/HCC) No date: Spastic colon Current Outpatient Medications on File Prior to Encounter: albuterol 90 mcg/actuation inhaler, Inhale 2 puffs every 6 (six) hours if needed for wheezing., Disp: , Rfl: aspirin 81 mg EC tablet, Take 81 mg by mouth in the morning., Disp: , Rfl: atorvastatin (Lipitor) 80 mg tablet, Take 80 mg by mouth at bedtime., Disp: , Rfl: isosorbide mononitrate ER (Imdur) 30 mg 24 hr tablet, Take 30 mg by mouth in the morning. Do not crush or chew., Disp: , Rfl: metoprolol succinate XL (Toprol-XL) 50 mg 24 hr tablet, Take 50 mg by mouth in the morning. Do not crush or chew., Disp: , Rfl: nitroglycerin (Nitrostat) 0.4 mg SL tablet, Place 0.4 mg under the tongue every 5 (five) minutes if needed for chest pain., Disp: , Rfl: omeprazole OTC (PriLOSEC OTC) 20 mg EC tablet, Take 20 mg by mouth before breakfast. Do not crush, chew, or split., Disp: , Rfl: ticagrelor (Brilinta) 90 mg tablet, Take 90 mg by mouth in the morning and at bedtime., Disp: , Rfl: traMADol (Ultram) 50 mg tablet, Take 50 mg by mouth every 6 (six) hours if needed for severe pain (8-10 pain score)., Disp: , Rfl: No current facility-administered medications on file prior to encounter. Anesthesia Plan ASA 4 general (Discussed standard ASA monitoring and GETA with mask induction to maintain spontaneous breathing. All questions answered. Patient agreeable to the plan and wishes to proceed.) The patient is a current smoker. Patient was previously instructed to abstain from smoking on day of procedure. Patient did not smoke on day of procedure. Education provided regarding risk of obstructive sleep apnea. intravenous induction Postoperative administration of opioids is intended. Anesthetic plan and risks discussed with patient. Use of blood products discussed with patient who consented to blood products. Plan discussed with resident. Additional Equipment Requests [facility] 02-24-[address] Rodriguez . Patient was admitted to [facility], found to have a large mediastinal mass. I have reviewed the images and the patient will need an urgent EBUS-TBNA. Orders placed Betito Foss MD Interventional Pulmonary Medicine Pulmonary and Critical Care Medicine [facility] 12-30-2022 Discharge summary Note Date/Time December 30, 2022 1:19pm [facility] [address] [place] [address] Discharge Summary Signed Patient: Jeanmarie Faria MR#: [id number] : 1965 Acct:[id number] Age/Sex: 57 / F Adm Date: 3 Loc: Room: Attending Dr: Teo Gongora DO Copies to: DO Teo Emanuel DO~ Providers Date of Discharge: 12/30/22 Discharging Provider: Teo Gongora Primary Care Provider: Aris Stewart Discharge Diagnosis (1) Smoker: (2) ASHD (arteriosclerotic heart disease): (3) History of heart artery stent: (4) Essential hypertension: (5) Angina pectoris: (6) Hypertrophic cardiomyopathy: Final Diagnosis Final Discharge Diagnosis: 1. ASHD with widely patent circumflex and RCA stents 2. Hypertrophic nonobstructive cardiomyopathy with hyperdynamic normal left ventricular function 3. Peripheral vascular disease specifically involving the right common femoral artery 4. Essential hypertension 5. Tobacco use Summary Hospital Course Hospital course: 57-year-old female presents for outpatient elective heart catheterization due toclass III-IV anginal symptomatology in addition to exertional dyspnea. She has known history of prior non-STEMI with two-vessel revascularization of the circumflex and distal RCA in 2021. She also has a history of hypertrophic nonobstructive cardiomyopathy, hypertension, tobacco use, and lower extremity claudication symptomatically. Catheterization today revealed widely patent RCA and circumflex stents with no disease and hypertrophic, hyperdynamic left ventricular function with no evidentresting aortic outflow tract gradient. Angiographically left ventricular hypertrophy appears primarily mid to distal/apical (positive Brockenbrough sign) Aortography and selective right lower extremity angiography did reveal severe right common femoral stenosis at the sheath insertion site Time spent discussing smoking cessation with patient: 3 to 10 minutes Condition Condition at Discharge: Stable Status at Discharge Functional status at discharge: independent ambulation Overall status at discharge: patient is back to baseline Time Spent with Patient Time spent providing/coordinating discharge services (# min): 15 Surgeries and Procedures Operation Date: 12/30/22 12:15 Actual Procedures p CL LHC & COR Angio - W Jeff Gongora, Complications Complications: None Diagnostic Studies Completed and Pending Studies Pending studies at discharge: 12/30/22 11:15 Blood Urea Nitrogen [CHEM] Stat Creatinine [CHEM] Stat Electrolytes [CHEM] Stat HCG,Qualitative Serum [CHEM] Stat Lipid Panel [CHEM] Stat Labs on day of discharge: 12/30/22 11:15: PHA Creatinine Clear N/A, Sodium 137, Potassium 4.0, Chloride 106, Carbon Dioxide 22.7, Anion Gap 12.3, BUN 13, Creatinine 0.69, Est GFR (CKD-EPI) > 60.0, Triglycerides 133, Cholesterol 121 L, LDL Cholesterol, Calc 59, VLDL Cholesterol 26, HDL Cholesterol 35, Cholesterol/HDL Ratio 3.5 12/30/22 11:15: PT 12.2, INR 1.1, APTT 35.6 12/30/22 11:15: Corrected WBC 12.8 H, Uncorrected WBC Count 12.8 H, RBC 4.53, Hgb 13.6, Hct 40.6, MCV 89.6, MCH 30.0, MCHC 33.4, RDW 15.2, Plt Count 338, MPV 8.2, Neut % (Auto) 60.8, Lymph % (Auto) 27.2, [place] % (Auto) 10.1, Eos % (Auto) 1.0, Baso % (Auto) 0.9, Nucleat RBC Rel Count 0.2, Neut # (Auto) 7.8 H, Lymph # (Auto) 3.5, [place] # (Auto) 1.3 H, Eos # (Auto) 0.1, Baso # (Auto) 0.1 Exam Physical Exam Vital Signs: Temp Pulse Resp BP Pulse Ox O2 Del Method 97.3 F L 68 20 118/78 95 Room Air 12/30/22 11:36 12/30/22 11:36 12/30/22 11:36 12/30/22 11:36 12/30/22 11:36 12/30/22 11:50 Discharge Plan Discharge Plan Patient Disposition: Home Diet: Low-Cholesterol Comment: Smoking cessation Additional Instructions: DISCHARGE INSTRUCTIONS FOR CARDIAC PARK GUARD PHONE NUMBER OF YOUR PHYSICIAN: [phone] PROCEDURE: Heart Cath The following instructions have been prepared to help you care for yourself, or be cared for upon your return home. 1. You were given conscious sedation. Do not operate a vehicle, power tools, make important decisions, or drink alcohol for 24 hours. You might be drowsy or light headed. Return to the Emergency Room if you have trouble breathing, walking or nausea and vomiting. 2. FOR BLEEDING: Apply continuous pressure to the site and call 911. 3. Operative Site Care: Keep the dressing clean and dry. You may change the dressing only if soiled or wet. You may remove the dressing the following morning. You may wash over the puncture site in the shower. If the puncture site is at the wrist no soaking for 3 days. Some bruising or slight swelling may be present. -Signs of infection are redness, warmth, swelling, getting more sore, colored drainage, fever or chills. -Should the arm or leg become cold, numb, blue or white, call the fisher hand line immediately. 4. ACTIVITY: You are advised to go directly home from the hospital. Restrict your activities for the rest of the day. Resume light or normal activities tomorrow. Do not engage in any activity that will stress the puncture site. Avoid heavy lifting (over 15 lbs.), straining or bending at the catheter site for 48 hours after discharge. If the puncture site is at the wrist do not manipulate wrist for 24 hours and no lifting more than 3 lbs for 3 days. 5. DIET:You may eat your regular diet when you desire. 6. MEDICATIONS: Resume your daily prescription schedule. Prescriptions may be sent with you if needed. Use as directed. When taking pain medications, you may experience dizziness or drowsiness. Do not drink alcohol or drive when taking pain medications. 7. If you should experience episodes of angina e.g. chest discomfort, heaviness, tightness, pressure, burning, with or without radiation to the neck, jaws, arms, or back- Use 1 Nitrostat under your tongue every 5-10 minutes, and up to 3 tablets. If no relief- Call 911 and go to the nearest Emergency Room. -Notify the office for recurrent angina, chest pain or other concerns. You may NOT drive yourself home! Follow the medication instructions provided on your discharge. If the dosages and instructions on this sheet differ from the dosage and instructions on the bottle, follow the instructions on the bottle. [facility] is not responsible for incorrect prescription information provided by the patient during their visit. Do not stop your medications without consulting your health care provider. Please take the list with you to your next doctor's appointment. Instructions: Quitting Smoking, Quitting Smokeless Tobacco Prescriptions: Continued nicotine 21 mg/24 hr Patch 24 Hour 1 ea transdermal DAILY 30 Days Qty: 30 0RF atorvastatin 80 mg Tablet 80 mg PO QPM 30 Days Qty: 30 11RF aspirin [Children's Aspirin] 81 mg Tablet,Chewable 81 mg PO DAILY 30 Days Qty: 30 11RF metoprolol tartrate 25 mg Tablet 25 mg PO BID 30 Days Qty: 60 11RF Brilinta 90 mg Tablet 90 mg PO BID 30 Days Qty: 60 11RF nitroglycerin 0.3 mg Tablet, Sublingual Follow Up: Teo Gongora DO [Active Staff - D.O.] - Aris Stewart DO [Primary Care Provider] - Documented By: Teo Gongora DO 12/30/22 1315 Signed By: <Electronically signed by Teo Gongora DO> 12/30/22 [address] [facility] Work Phone: 1(302) 642-673105-05-2023 [facility] Hospital Discharge instructions Additional Instructions DISCHARGE INSTRUCTIONS FOR CARDIAC PARK GUARD PHONE NUMBER OF YOUR PHYSICIAN: [phone] PROCEDURE: Heart Cath The following instructions have been prepared to help you care for yourself, or be cared for upon your return home. 1. You were given conscious sedation. Do not operate a vehicle, power tools, make important decisions, or drink alcohol for 24 hours. You might be drowsy or light headed. Return to the Emergency Room if you have trouble breathing, walking or nausea and vomiting. 2. FOR BLEEDING: Apply continuous pressure to the site and call 911. 3. Operative Site Care: Keep the dressing clean and dry. You may change the dressing only if soiled or wet. You may remove the dressing the following morning. You may wash over the puncture site in the shower. If the puncture site is at the wrist no soaking for 3 days. Some bruising or slight swelling may be present. -Signs of infection are redness, warmth, swelling, getting more sore, colored drainage, fever or chills. -Should the arm or leg become cold, numb, blue or white, call the fisher hand line immediately. 4. ACTIVITY: You are advised to go directly home from the hospital. Restrict your activities for the rest of the day. Resume light or normal activities tomorrow. Do not engage in any activity that will stress the puncture site. Avoid heavy lifting (over 15 lbs.), straining or bending at the catheter site for 48 hours after discharge. If the puncture site is at the wrist do not manipulate wrist for 24 hours and no lifting more than 3 lbs for 3 days. 5. DIET:You may eat your regular diet when you desire. 6. MEDICATIONS: Resume your daily prescription schedule. Prescriptions may be sent with you if needed. Use as directed. When taking pain medications, you may experience dizziness or drowsiness. Do not drink alcohol or drive when taking pain medications. 7. If you should experience episodes of angina e.g. chest discomfort, heaviness, tightness, pressure, burning, with or without radiation to the neck, jaws, arms, or back- Use 1 Nitrostat under your tongue every 5-10 minutes, and up to 3 tablets. If no relief- Call 911 and go to the nearest Emergency Room. -Notify the office for recurrent angina, chest pain or other concerns. You may NOT drive yourself home! Follow the medication instructions provided on your discharge. If the dosages and instructions on this sheet differ from the dosage and instructions on the bottle, follow the instructions on the bottle. [facility] is not responsible for incorrect prescription information provided by the patient during their visit. Do not stop your medications without consulting your health care provider. Please take the list with you to your next doctor's appointment.[facility] Work Phone: 1(431) 509-436804-21-2022 Discharge summary Author Viviane Loco [facility] December 16, 2021 5:37pm Note Date/Time December 16, 2021 4:2 9pm [facility] [address] [place] [address] Discharge Summary Signed with Addenda Patient: Jeanmarie Faria MR#: [id number] : 1965 Acct:[id number] Age/Sex: 56 / F Adm Date: 2 Loc: Room: [address] [place] [address]: Viviane Loco MD Copies to: DO Viviane Emanuel MD~ ADDENDUM1 Hypertrophic cardiomyopathy Addendum Documented By: Viviane Loco MD 12/16/21 173 Addendum Signed By: <Electronically signed by Viviane Loco MD> 12/16/21 1737 Providers Date of Discharge: 12/16/21 Discharging Provider: Viviane Loco Primary Care Provider: Aris Stewart Consults: 12/14/21 17:01 Consult to Cardiology Routine Discharge Diagnosis (1) NSTEMI (non-ST elevated myocardial infarction): (2) Smoker: Final Diagnosis Final Discharge Diagnosis: Non-ST elevation AK status post intervention in circumflex and RCA Hyperlipidemia LVH hypertrophy with septal asymmetry Summary Hospital Course Hospital course: 56 years old female was transferred with non-ST elevation AK. Patient presentedwith shortness of breath and chest pain. Patient was found to have non-ST elevation AK with significantly abnormal EKG and elevated troponins. Cardiologywas consulted. Patient was started on full dose of Lovenox as well as aspirin therapy. Underwent cardiac catheterization which showed hypertrophic hyperdynamic left ventricular function with severe two-vessel disease involving mid circumflex and mid RCA, status post intervention. Postprocedure she did quite well. Denied any chest pain and shortness of breath. She was placed on dual antiplatelets including aspirin and Brilinta with statins due to hyperlipidemia as well as beta-blockers and was discharged home in a stable condition. Echocardiogram showed ejection fraction 80% with asymmetrical left ventricular hypertrophy with septum measuring 2 cm versus 1.2 for the posterior wall. Patient will need to follow-up with cardiology for further evaluation andtreatment. Patient was informed if she has any dizziness lightheadedness palpitations or syncopal episode, to go to emergency room. Patient also was informed about importance of smoking cessation Physical exam: General -awake, alert, oriented ?3, not in acute distress Cardiovascular -S1 with S2, no murmurs, no rubs, no gallops Pulmonary - clear to auscultation bilaterally Gastrointestinal - abdomen is soft, nondistended, nontender, bowel sounds positive, there is no rigidity, no rebound Extremities -no edema Neurological -no focal neurological dysfunction noted Laboratory work up and Imaging studies reviewed environmental monitoring specialist - reviewed, no significant arrhythmias noted The patient CARE and further plan was discussed with the patient. All questionsanswered. Patient expressed understanding and was discharged home in a stable condition. The patient was given written and verbal instructions. The recommendations were made to follow-up as outpatient within one week.The patientwas informed if his symptoms get worse to go back to emergency room or call his primary care physician office. Time spent on the discharge day 35 min. Time Spent with Patient Time spent providing/coordinating discharge services (# min): 35 Surgeries and Procedures Operation Date: 12/15/21 14:30 Actual Procedures p CL LHC & COR Angio - W Jeff Gongora, DO p CL Stent 1st Vessel CX SAMI - W Jeff Gongora, DO p CL PTCA Ea Add CX - W Jeff Gongora, DO p CL Stent 1st Vessel RCA SAMI - W Jeff Gongora, DO Diagnostic Studies Completed and Pending Studies Labs on day of discharge: 12/16/21 05:37: Troponin I High Sens 6412 H* 12/16/21 05:37: PHA Creatinine Clear 77.13, Sodium 136, Potassium 4.0, Chloride 105, Carbon Dioxide 21.5 L, BUN 12, Creatinine 0.72, Est GFR ( Amer) > 60, Est GFR (Non-Af Amer) > 60, Glucose 90, Calcium 9.6 12/16/21 05:37: Corrected WBC 12.5 H, RBC 4.72, Hgb 14.1, Hct 42.2, MCV 89.4, MCH 29.8, MCHC 33.3, RDW 14.4, Plt Count 304, MPV 8.7 Exam Physical Exam Vital Signs: Temp Pulse Resp BP Pulse Ox 36.9 C 75 18 110/75 98 12/16/21 12:00 12/16/21 12:00 12/16/21 08:00 12/16/21 12:00 12/16/21 08:00 Discharge Plan Discharge Plan Patient Disposition: Home Activity: Other Comment: Please follow Angioplasty discharge instructions for activity restrictions: Diet: Low-Sodium and Low-Cholesterol Additional Instructions: DISCHARGE INSTRUCTIONS FOR ANGIOPLASTY/CORONARY/PERIPHERAL/STENT IMPLANT FOR ADULT ANTICOAGULATION -Since the greatest risk of a blood clot forming with the stent occurs in the first 2-3 weeks after implantation, you will need to take anticoagulants for at least [?insert date or amount of time?]. ANTICOAGULATION MEDICATION [INSERT MEDICATION NAME: Aspirin 81mg once a day, Aspirin 325mg once a day, Clopidogrel (Plavix) 75mg one tablet, Prasugrel (Effient) 10mg once a day once a day, Ticagrelor (Brilinta) 90mg twice a day] STATIN MEDICATION [INSERT MEDICATION NAME: atorvastatin (Lipitor) 80 mg or rosuvastatin (Crestor) 40mg] [Bare Metal Stent (BMS) duration ] [Drug-Eluting Stent (SAMI) duration] DO NOT discontinue Plavix/Effient/Brilinta/Aspirin during the first few months regardless of what you are advised by your family doctor or pharmacist, without first calling the fisher hand line who implanted the stent. If you require pain relief during this time, please take only ACETAMINOPHEN (TYLENOL)- NO additional aspirin or ibuprofen. DISCHARGE ACTIVITIES ARE FOLLOWS: First week after discharge: -Take it easy at home, no strenuous activity. -Do not lift or pull objects over 10-15 pounds, including children, and groceries for four weeks. If puncture site is at wrist do NOT lift more than three pounds for three days. - May walk up stairs. -May shower. -No excessive scrubbing of the affected site (groin). -May ride in car. -May resume sexual intercourse after 1-2 weeks. -No MRI for 12 days. -May drive in 4-7 days. -If puncture site is at the wrist do not manipulate the wrist for 24 hours, and no soaking wrist for three days. Second Week: -May take a bath -May start walking 3 times a week for 15-20 minutes at a leisurely pace. You should be able to carry on a conversation comfortably without feeling winded. -No strenuous activity as in jogging, running, weight lifting, stair steppers, etc. until the fisher hand line approves these activities. Check with the fisher hand line on your first follow-up visit. CALL YOUR PHYSICIAN at [phone]: -If bleeding should occur from the catheter insertion site- apply pressure to the site then immediately call us. -Report any fever, redness, drainage, increased swelling, or firmness at the catheter insertion site. Some bruising or slight swelling may be present at thetime of discharge. -Should arm or leg become cold, numb, white, or blue, contact the fisher hand line immediately. -IF you should experience episodes of angina, e.g. chest discomfort, heaviness, tightness, pressure burning with or without radiation to the neck, jaw, arms or back- use 1 Nitrostat tablet under your tongue every 5-10 minutes and up to three tablets. IF NO RELIEF, CALL 911 or GO TO THE NEAREST EMERGENCY ROOM. -Please notify our office if you have recurrent angina. -[Cardiac Rehab Education Provided. Participation in the Cardiopulmonary Rehabilitation program is recommended. Please call Central Scheduling at [phone] to schedule your appointment.] The attending fisher hand line or [facility] nurse clinician should provide you with specific instructions regarding activity, diet, medications, and further follow up for you. Follow the medication instructions provided on your discharge. If the dosages and instructions on this sheet differ from the dosage and instructions on the bottle, follow the instructions on the bottle. [facility] incorrect prescription information provided by the patient during their visit. Do not stop your medications without consulting your health care provider. Please take the list with you to your next doctor's appointment. Stand Alone Forms: Work/School Release Form Prescriptions: New nicotine 21 mg/24 hr Patch 24 Hour 1 ea transdermal DAILY 30 Days Qty: 30 RF: 0 atorvastatin 80 mg Tablet 80 mg PO QPM 30 Days Qty: 30 RF: 11 aspirin [Children's Aspirin] 81 mg Tablet,Chewable 81 mg PO DAILY 30 Days Qty: 30 RF: 11 metoprolol tartrate 25 mg Tablet 25 mg PO BID 30 Days Qty: 60 RF: 11 Brilinta 90 mg Tablet 90 mg PO BID 30 Days Qty: 60 RF: 11 Follow Up: Teo Gongora DO [Active Staff - D.O.] - 12/29/21 11:10 am (Post hospital follow up appointment. Please call and reschedule if needed.) Aris Stewart DO [Primary Care Provider] - (His office is closed today. Please call and schedule a 7 day post hospital follow up appointment.) Documented By: Viviane Loco MD 12/16/21 5822 Signed By: <Electronically signed by Viviane Loco MD> 12/16/21 1629 [facility] Work Phone: 1(863) 907-592604-20-2022 Consult note Author Teo Gongora [facility] December 15, 2021 3:41pm Note Date/Time December 15, 2021 3:4 1pm [facility] [address] [place] [address] Cardiology Consult Note Signed Patient: Jeanmarie Faria MR#: [id number] : 1965 Acct:[id number] Age/Sex: 56 / F Adm Date: 2 Loc: Room: [address] [place] [address] Type : ADM INOo Attending Dr: Viviane Loco MD Copies to: DO Viviane Paredes MD W Scott Sheldon, DO~ Cardiology HPI History of Present Illness Consult Date: 12/15/21 Reason for Consult: Non-ST elevation AK HPI: Ms. Faria is a 56 year old female seen in interventional cardiology consultationat the request of [facility] ER attending and hospitalist for non-ST elevation AK. Patient developed severe chest discomfort yesterday, went to [facility] emergencyroom, initial troponins were elevated at 4000 with evidence of inferolateral ST depression. She was transferred after receiving appropriate upstream heparin and antiplatelet therapy under my direction. Troponins have trended upwards to 8000. Patient denies any previous myocardial infarction, revascularization, stroke, thromboembolic disorder or bleeding diathesis She does not routinely follow with her primary care physician and she is on no medications routinely She has a history of tobacco use approximately a pack a day since the age of 19 Her GARFIELD risk score is 5-7 consistent with high risk Risk benefits alternatives informed decision-making process for 30 minutes performed with the patient this morning in regards to early invasive management or other options. She and her sister are willing to proceed with invasive management and possible revascularization. Review of Systems Review of Systems All other systems reviewed & are negative unless noted below or in HPI Constitutional Constitutional: Reports as per HPI Eyes Eyes: Reports system reviewed and no additional complaints, except as documented ENT Ears, Nose, Mouth, and Throat: Reports system reviewed and no additional complaints, except as documented Cardiovascular Cardiovascular: Reports as per HPI and Reports chest pain at rest Respiratory Respiratory: Reports system reviewed and no additional complaints, except as documented Gastrointestinal Gastrointestinal: Reports system reviewed and no additional complaints, except as documented Genitourinary Genitourinary: Reports system reviewed and no additional complaints, except as documented Musculoskeletal Musculoskeletal: Reports system reviewed and no additional complaints, except asdocumented Integumentary/Breasts Skin/Breast: Reports system reviewed and no additional complaints, except as documented Neurologic Neurologic: Reports system reviewed and no additional complaints, except as documented PMFSH Vaccinated for COVID-19?: No Medical History Back pain Crohn's disease IBS (irritable bowel syndrome) Smoker 1 pack per day Surgical History (Updated 12/14/21 @ 16:54 by Canelo Campoverde RN) H/O: hysterectomy History of appendectomy History of bowel resection Social History Smoking Status: Current every day smoker Tobacco Type: cigarettes Substance Use Type: None Meds Medications and Allergies Allergies codeine Allergy (Verified 12/14/21 16:52) Nausea Exam Physical Exam Vital Signs: Temp Pulse Resp BP Pulse Ox 98.2 F 59 L 18 119/76 97 12/15/21 12:00 12/15/21 12:00 12/15/21 12:00 12/15/21 12:00 12/15/21 12:00 Const General: cooperative, healthy appearing, comfortable and no acute distress Orientation: alert, awake and oriented x3 HEENT Head: normal to inspection Neck Neck: normal visual inspection Chest Chest palpation & inspection: normal inspection of the chest Resp Effort & Inspection: normal respiratory effort Auscultation: clear to auscultation bilaterally Cardio Palpation: normal PMI Rate: regular rate Rhythm: regular rhythm Heart Sounds: S1 normal, S2 normal and murmur GI Inspection: obesity Palpation: soft Skin General: no rashes or lesions noted Neuro General: patient alert, patient awake and patient oriented x3 Cognition: normal cognition Extrem General: no clubbing, cyanosis or edema Results Labs CBC & CMP: 12/15/21 04:20 12/15/21 04:20 Lab results: Lipids 12/15/21 Range/Units 04:20 Triglycerides 135 (35-149) mg/dL Cholesterol 262 H (140-200) mg/dL HDL Cholesterol 33 L (35-85) mg/dL Cholesterol/HDL Ratio 7.9 (<5.0) CBC 12/15/21 Range/Units 04:20 RBC 4.76 (3.60-5.00) x10E6/uL Hgb 14.3 (11.8-15.4) g/dL Hct 42.5 (34.0-46.4) % Plt Count 273 (150-450) x10E3/uL Neut # (Auto) 8.0 H (1.8-7.7) x10E3/uL Lymph # (Auto) 3.8 (1.00-4.8) x10E3/uL [place] # (Auto) 1.3 H (0.0-0.8) x10E3/uL Eos # (Auto) 0.1 (0.0-0.45) x10E3/uL Baso # (Auto) 0.1 (0.0-0.2) x10E3/uL Comprehensive Metabolic Panel 12/15/21 Range/Units 04:20 Sodium 136 (136-146) mmol/L Potassium 4.2 (3.5-5.1) mmol/L Chloride 104 (95-114) mmol/L Carbon Dioxide 21.2 L (22.0-30.0) mmol/L BUN 10 (9-23) mg/dL Creatinine 0.63 (0.44-1.03) mg/dL Glucose 102 H (70-100) mg/dL Calcium 9.6 (8.2-10.2) mg/dL Intake and Output 12/14/21 12/15/21 12/15/21 23:59 07:59 15:59 Intake Total 0 / 10 10 / 10 Output Total 0 / 0 Balance 0 / 10 10 / 10 Intake: Oral 0 / 10 10 / 10 Output: Urine 0 / 0 Other: # Unmeasured Voids 2 3 Weight 67.2 kg 61.6 kg Date of Last Bowel Movement 12/14/21 12/14/21 Patient Weight 12/15/21 23:59 Weight 61.6 kg EKG Interpretations EKG EKG results cardiology: sinus rhythm Blocks, axis, hypertrophy, ST abn Repolarization changes or abnormalities: ST or T wave suggestive of ischemia A&P - Cardiology (1) NSTEMI (non-ST elevated myocardial infarction): Code(s): I21.4 - Non-ST elevation (NSTEMI) myocardial infarction (2) Smoker: Code(s): F17.200 - Nicotine dependence, unspecified, uncomplicated Documented By: Teo Gongora DO 12/15/21 1536 Signed By: <Electronically signed by Teo Gongora DO> 12/15/21 1541 [facility] Work Phone: 1(115) 111-236804-20-2022 [facility] Progress note Author Viviane Loco [facility] December 15, 2021 1:34pm Note Date/Time December 15, 2021 1:3 4pm [facility] [address] [place] [address] Hospitalist Progress Note Signed Patient: Jeanmarie Faria MR#: [id number] : 1965 Acct:[id number] Age/Sex: 56 / F Adm Date: 2 Loc: Room: [address] [place] [address] Type : ADM INOo Attending Dr: Viviane Loco MD Copies to: ~ Date of Service: 12/15/2021 Subjective Subjective Narrative: Patient has been seen and examined. She did have episode of acid reflux sensation over the night but no shortness of breath no chest pain. Physical exam: General -awake, alert, oriented ?3, not in acute distress Cardiovascular -S1 with S2, no murmurs, no rubs, no gallops Pulmonary - clear to auscultation bilaterally Gastrointestinal - abdomen is soft, nondistended, nontender, bowel sounds positive, there is no rigidity, no rebound Extremities -no edema Neurological -no focal neurological dysfunction noted Exam Physical Exam Vital Signs: Temp Pulse Resp BP Pulse Ox 36.8 C 59 L 18 119/76 97 12/15/21 12:00 12/15/21 12:00 12/15/21 12:00 12/15/21 12:00 12/15/21 12:00 Objective Lab Results CBC & Chem 7: 12/15/21 04:20 12/15/21 04:20 Meds Allergies and Active Meds Allergies codeine Allergy (Verified 12/14/21 16:52) Nausea Active Meds: Active Medications Generic Name Dose Route Start Last Admin Trade Name Freq PRN Reason Stop Dose Admin Acetaminophen 650 mg 12/14/21 18:03 12/15/21 04:34 Acetaminophen 325 Mg Tablet PO 12/14/22 18:02 650 mg Q4H PRN Administration Pain Scale 1 - 5 Aspirin 81 mg 12/15/21 09:00 12/15/21 08:13 Aspirin 81 Mg Tab.Chew PO 12/15/22 08:59 81 mg DAILY TC Administration Atorvastatin Calcium 80 mg 12/14/21 21:00 12/14/21 21:19 Atorvastatin 80 Mg Tablet PO 12/14/22 20:59 80 mg QPM TC Administration Docusate Sodium 200 mg 12/14/21 18:03 Docusate 100 Mg Capsule PO 12/14/22 18:02 BID PRN Constipation Enoxaparin Sodium 60 mg 12/15/21 19:00 Enoxaparin 60 Mg/0.6 Ml Syringe SUBCUT 12/15/22 18:59 Q12H TC Hydralazine HCl 10 mg 12/14/21 18:03 Hydralazine 20 Mg/Ml Vial IV-PUSH 12/14/22 18:02 Q4H PRN if SBP > 185 Nicotine 1 each 12/15/21 10:40 12/15/21 10:55 Nicotine Patch 21 Mg/24hr 1 Each Patch.Td24 TRANSDERML 01/25/22 09:01 1 each DAILY TC Administration Nitroglycerin 1 inch 12/14/21 18:30 12/15/21 08:13 Nitroglycerin 2% Oint Packet TRANSDERML 12/14/22 18:29 1 inch BID TC Administration Ondansetron HCl 4 mg 12/14/21 18:03 12/14/21 21:19 Ondansetron 4 Mg/2 Ml Vial IV-PUSH 12/14/22 18:02 4 mg Q6H PRN Administration Nausea And Vomiting A&P - Hospitalist Assessment/Plan (1) NSTEMI (non-ST elevated myocardial infarction): Plan 1. Non-ST elevation AK, currently patient is asymptomatic Significantly abnormal EKG with elevated troponins Plan for cardiac catheterization 2. Smoker 3. DVT prophylaxis Lovenox Documented By: Viviane Loco MD 12/15/211333 Signed By: <Electronically signed by Viviane Loco MD> 12/15/211333 [facility] Work Phone: 1(698) 425-813304-20-2022 [facility] History and physical note Author Viviane Loco [facility] December 14, 2021 6:12pm Note Date/Time December 14, 2021 6:1 2pm [facility] [address] [place] [address] Hospitalist H&P Signed Patient: Jeanmarie Faria MR#: [id number] : 1965 Acct:[id number] Age/Sex: 56 / F Adm Date: 2 Loc: Room: [address] [place] [address] Type : ADM IN Attending Dr: Viviane oLco MD Copies to: DO Viviane Paredes MD~ HPI DATE OF EXAMINATION: 12/14/21 CHIEF COMPLAINT: Chest pain HISTORY OF PRESENT ILLNESS: 56 years old female, smoker, without underlying medical problems, presented withcomplaints of chest pain for about 1 week. According to the patient it usually was after eating. But then progressed to at rest. Sometimes with exertion she felt winded. Last night she had quite severe pain she was not able to sleep. The pain retrosternal, radiating to the mid back. Patient denied any cough. She denied any fevers any chills. She denied any lower extremity swelling. Shedenied any dizziness any passing out. She is a smoker, and her mother was diagnosed with coronary artery disease in late 50s. No known history of DVT or PE. No known history of bleeding problems. She went to emergency room at [facility]. EKG was done which showed ST depression inferior leads as well as V2 through V6 with T wave inversions in V4 V5. Troponins noted to be at 5000. Emergency room physician discussed with ourcardiologist who agreed to accept the patient. Patient got aspirin and was started on heparin drip I did see the patient on the floor when she arrived. We repeated EKG which showed normal sinus with diffuse ST depression and T inversions in leads V2 through V6 with some ST depression inferior leads. No signs of ST elevation. At that time patient denied any chest pain to me. Review of Systems Review of Systems Review of systems: 10 systems are reviewed and are negative apart from as mentioned in H&P PMFSH Vaccinated for COVID-19?: No Medical History Back pain Crohn's disease IBS (irritable bowel syndrome) Smoker 1 pack per day Surgical History (Updated 12/14/21 @ 16:54 by Canelo Campoverde RN) H/O: hysterectomy History of appendectomy History of bowel resection Social History Smoking Status: Current every day smoker Tobacco Type: cigarettes Substance Use Type: None Meds Medications and Allergies Allergies codeine Allergy (Verified 12/14/21 16:52) Nausea Exam Physical Exam Vital Signs: Temp Pulse Resp BP Pulse Ox 36.7 C 79 16 148/86 H 98 12/14/21 16:55 12/14/21 16:55 12/14/21 16:55 12/14/21 16:55 12/14/21 16:55 Narrative: General -patient is awake alert oriented ?3, does not appear to be in distress HEENT -normal oropharyngeal mucosa without any ulcers or exudates Cardiovascular -S1 plus S2, with regular rate, without any murmurs, gallops, rubs Pulmonary -clear to auscultation bilaterally Gastrointestinal -abdomen is soft, nondistended, nontender, bowel sounds positive, no rigidity, no rebound Genitourinary -no flank tenderness Musculoskeletal -no back tenderness, no significant joint swelling, full range of motion Neurological -no facial asymmetry noted, pupils are equal and symmetrical, extraocular muscle intact, no nystagmus, motor function 5 out of 5 in upper and lower extremities, sensation 5 out of 5 in upper and lower extremities, finger to nose test performed well without any dysmetria, reflexes symmetrical bilaterally in lower extremities, speech is clear, no tremors noted, gait deferred Skin -no significant ulcers, no rash noted Extremities - no edema in bilateral lower extremities noted Psychiatry - appropriate affect Laboratory work up, imaging studies reviewed EKG personally reviewed by me as noted above Previous records in the computer system reviewed A&P - Hospitalist Assessment/Plan (1) NSTEMI (non-ST elevated myocardial infarction): Plan 1. Non-ST elevation AK, currently patient is asymptomatic Significantly abnormal EKG with elevated troponins Continue with telemetry in PCU, serial cardiac enzymes, check echocardiogram Continue with aspirin, already got at [facility]. Will give Lovenox therapeutic dose. Start statin Consult cardiology Start nitroglycerin patch 2. Smoker 3. 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 [facility] Diagnosis Neoplasm of lung- Primary Neoplasm of unspecified nature of respiratory system [facility] Diagnosis Neoplasm of lung- Primary Neoplasm of unspecified nature of respiratory system [facility] Diagnosis Malignant neoplasm of left lung, unspecified part of lung (HCC)- Primary [facility] Diagnosis Neoplasm of lung- Primary Neoplasm of unspecified nature of respiratory system [facility] Diagnosis Muscle soreness- Primary Mylagia and myositis, unspecified [facility] Diagnosis Neoplasm of lung- Primary Neoplasm of unspecified nature of respiratory system [facility] Diagnosis Smoking greater than 40 pack years- Primary Tobacco use disorder Neoplasm of lung Neoplasm of unspecified nature of respiratory system [facility] Diagnosis Neoplasm of lung- Primary Neoplasm of unspecified nature of respiratory system [facility]* Diagnosis SVT (supraventricular tachycardia)- Primary Other specified cardiac dysrhythmias Hypertrophic nonobstructive cardiomyopathy (CMS/HCC) Other primary cardiomyopathies ASHD (arteriosclerotic heart disease) Coronary atherosclerosis of unspecified type of vessel, [place] or graft Essential hypertension Unspecified essential hypertension Mixed hyperlipidemia Angina pectoris (CMS/HCC) Other and unspecified angina pectoris Non-small cell cancer of left lung (CMS/HCC) BMI 26.0-26.9,adult documented in this encounter [facility] Work Phone: Evaluation note* Diagnosis Neoplasm of lung- Primary Neoplasm of unspecified nature of respiratory system [facility] Additional Instructions DISCHARGE INSTRUCTIONS FOR ANGIOPLASTY/CORONARY/PERIPHERAL/STENT IMPLANT FOR ADULT ANTICOAGULATION -Since the greatest risk of a blood clot forming with the stent occurs in the first 2-3 weeks after implantation, you will need to take anticoagulants for at least [?insert date or amount of time?]. ANTICOAGULATION MEDICATION [INSERT MEDICATION NAME: Aspirin 81mg once a day, Aspirin 325mg once a day, Clopidogrel (Plavix) 75mg one tablet, Prasugrel (Effient) 10mg once a day once a day, Ticagrelor (Brilinta) 90mg twice a day] STATIN MEDICATION [INSERT MEDICATION NAME: atorvastatin (Lipitor) 80 mg or rosuvastatin (Crestor) 40mg] [Bare Metal Stent (BMS) duration ] [Drug-Eluting Stent (SAMI) duration] DO NOT discontinue Plavix/Effient/Brilinta/Aspirin during the first few months regardless of what you are advised by your family doctor or pharmacist, without first calling the fisher hand line who implanted the stent. If you require pain relief during this time, please take only ACETAMINOPHEN (TYLENOL)- NO additional aspirin or ibuprofen. DISCHARGE ACTIVITIES ARE FOLLOWS: First week after discharge: -Take it easy at home, no strenuous activity. -Do not lift or pull objects over 10-15 pounds, including children, and groceries for four weeks. If puncture site is at wrist do NOT lift more than three pounds for three days. - May walk up stairs. -May shower. -No excessive scrubbing of the affected site (groin). -May ride in car. -May resume sexual intercourse after 1-2 weeks. -No MRI for 12 days. -May drive in 4-7 days. -If puncture site is at the wrist do not manipulate the wrist for 24 hours, and no soaking wrist for three days. Second Week: -May take a bath -May start walking 3 times a week for 15-20 minutes at a leisurely pace. You should be able to carry on a conversation comfortably without feeling winded. -No strenuous activity as in jogging, running, weight lifting, stair steppers, etc. until the fisher hand line approves these activities. Check with the fisher hand line on your first follow-up visit. CALL YOUR PHYSICIAN at [phone]: -If bleeding should occur from the catheter insertion site- apply pressure to the site then immediately call us. -Report any fever, redness, drainage, increased swelling, or firmness at the catheter insertion site. Some bruising or slight swelling may be present at the time of discharge. -Should arm or leg become cold, numb, white, or blue, contact the fisher hand line immediately. -IF you should experience episodes of angina, e.g. chest discomfort, heaviness, tightness, pressure burning with or without radiation to the neck, jaw, arms or back- use 1 Nitrostat tablet under your tongue every 5-10 minutes and up to three tablets. IF NO RELIEF, CALL 911 or GO TO THE NEAREST EMERGENCY ROOM. -Please notify our office if you have recurrent angina. -[Cardiac Rehab Education Provided. Participation in the Cardiopulmonary Rehabilitation program is recommended. Please call Central Scheduling at [phone] to schedule your appointment.] The attending fisher hand line or [facility] nurse clinician should provide you with specific instructions regarding activity, diet, medications, and further follow up for you. Follow the medication instructions provided on your discharge. If the dosages and instructions on this sheet differ from the dosage and instructions on the bottle, follow the instructions on the bottle. [facility] is not responsible for incorrect prescription information provided by the patient during their visit. Do not stop your medications without consulting your health care provider. Please take the list with you to your next doctor's appointment.[facility] Work Phone: Progress note Author W Rolan [facility] December 16, 2021 5:24pm Note Date/Time December 16, 2021 5:2 1pm [facility] [address] [place] [address] Cardiology Progress Note Signed Patient: Jeanmarie Faria MR#: [id number] : 1965 Acct:[id number] Age/Sex: 56 / F Adm Date: 2 Loc: Room: [address] [place] [address] Type : ADM IN Attending Dr: Viviane Loco MD Copies to: ~ Date of Service: 12/16/2021 Subjective Principal diagnosis: Non-ST elevation AK, hypertrophic cardiomyopathy Interval history: Stable status post two-vessel PCI RCA and circumflex yesterday, troponins remaintrending down to 6400, with preserved LV function and evidence of severe asymmetric LVH Discussed cardiovascular medications, follow-up, compliance with medical therapies, cardiac rehab and smoking cessation extensively with her and her sister. She appears to have mildly impaired understanding of her cardiac condition and events. We have made arrangements for transitional care management office visit within the next week or 2 weeks. She does have certain limitations as far as job activities are concerned specifically in regards to her recent two-vessel intervention but also in relationship to her severe hypertrophic cardiomyopathy. Details of her limited activities were explained. Exam Physical Exam Vital Signs: Temp Pulse Resp BP Pulse Ox 98.5 F 70 18 131/90 100 12/16/21 16:00 12/16/21 16:00 12/16/21 08:00 12/16/21 16:00 12/16/21 16:00 Const General: cooperative, healthy appearing, comfortable and no acute distress Orientation: alert, awake and oriented x3 HEENT Head: normal to inspection Neck Neck: normal visual inspection Chest Chest palpation & inspection: normal inspection of the chest Resp Effort & Inspection: normal respiratory effort Auscultation: clear to auscultation bilaterally Cardio Palpation: normal PMI Rate: regular rate Rhythm: regular rhythm Heart Sounds: S1 normal, S2 normal and murmur GI Inspection: obesity Palpation: soft Skin General: no rashes or lesions noted Neuro General: patient alert, patient awake and patient oriented x3 Cognition: normal cognition Extrem General: no clubbing, cyanosis or edema Objective Labs CBC & Chem 7: 12/16/21 05:37 12/16/21 05:37 Labs: Laboratory Results - last 24 hr 12/16/21 12/16/21 12/16/21 05:37 05:37 05:37 Corrected WBC 12.5 H RBC 4.72 Hgb 14.1 Hct 42.2 MCV 89.4 MCH 29.8 MCHC 33.3 RDW 14.4 Plt Count 304 MPV 8.7 PHA Creatinine Clear 77.13 Sodium 136 Potassium 4.0 Chloride 105 Carbon Dioxide 21.5 L BUN 12 Creatinine 0.72 Est GFR ( Amer) > 60 Est GFR (Non-Af Amer) > 60 Glucose 90 Calcium 9.6 Troponin I High Sens 6412 H* A&P - Cardiology (1) NSTEMI (non-ST elevated myocardial infarction): Code(s): I21.4 - Non-ST elevation (NSTEMI) myocardial infarction Status: Acute (2) Smoker: Code(s): F17.200 - Nicotine dependence, unspecified, uncomplicated Status: Acute Documented By: Teo Gongora DO 12/16/21 1721 Signed By: <Electronically signed by Teo Gongora, > 12/16/21 1724 [facility] Work Phone: Chief Complaint and Reason for Visit Chief Complaint N Stemi Reason for Visit NSTEMI (non-ST eleva roney myocardial infarction) Smoker Chief Complaint Angina Class 2, ASHD , COB, Hx of AK Advance Directives No Advanced Directives Records Found Advance Directive Response Recorded Date/ Time Advance Directives No December 14, 2 022 3:50pm Chief Complaint * JEANMARIE FARIA is being seen for a 1 month follow-up of. * Patient is a 56-year-old female returns following recent non-ST elevation AK, , Discharged December 16, following revascularization of the RCA with 2 drug- eluting stents in the circumflex with 1 drug-eluting stent. * Left ventricular function is hypertrophic/hyperdynamic with asymmetric left ventricular septal hypertrophy with a septal thickness of 2 cm with no outflow tract acceleration at rest. * She has ongoing history of tobacco use, she has complaints of exertional dyspnea as well as left lateral chest wall stabbing discomfort. * Most recently over the past 4 days she felt like she developed a flulike illness with cough, fatigue, the left lateral chest wall discomfort. Her live- in boyfriend who has a history of heart transplantation in [place], and was sent to a [facility] with similar flulike illness and was diagnosed with influenza. * Patient remains on appropriate postinfarction guideline directed medical therapies, she still smoking 1/2 pack cigarettes a day but is cut back quite a bit. 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 * Will refer her for cardiac rehab, perform 48-hour Holter monitoring, and have her proceed with limited echo with Valsalva provocation to assess for outflow tract gradient. We will follow-up in 4 to 6-month * JEANMARIE FARIA is being seen for a 4 month follow-up of. * 56-year-old female returns for follow-up and is doing well other than right wrist musculoskeletal complaints. She denies any chest heaviness, pressure discomfort or shortness of breath. Unfortunatelyshe continues smoking we counseled her for 3 to 5 minutes today on smoking cessation, offered altern atives. * Patient has a history of recent three-vessel PCI of the mid circumflex with 1 drug-eluting stent and provisional balloon angioplasty of the OM branch and then mid to distal RCA intervention x2 drug-eluting stents. At that time she was diagnosed with hypertrophic cardiomyopathy with hyperdynamic left ventricular function. Repeated echocardiogram fails to demonstrate any outflow tract obstruction at baseline. * She remains on appropriate guideline directed medical therapies as reviewed * Recommendations we will follow-up in 6 months on same therapy and obtain appropriate laboratories at that time, we will continue to survey her left ventricular outflow tract and LVH on a ongoing basis * 57-year-old female who returns and is describing class IV anginal complaints with radiation to the back, shortness of breath. She does not use any nitroglycerin. This is of been gradual in onset overthe past month and more frequent over the past 1 week. She admits to waking up at night with similar symptoms. It got so severe that her almost brought her to the emergency room last night. * She has a history of non-ST elevation AK in November 2021 with two-vessel revascularization involving the RCA and the circumflex. She also has a history of hypertrophic cardiomyopathy with 2 cm septal thickness, with no obvious outflow tract acceleration at rest. * She has ongoing tobacco use, obesity. * She remains compliant with medical therapies and DAPT. * Her symptoms are consistent with recurrent class IV angina. Risks, benefits and alternatives informed decision-making process performed with her and her significant other this morning, we will proceed with catheterization and possible intervention on Monday. If no significant coronary disease or res idual disease is found then will refer to the HCM clinic for further diagnostic and therapeutic intervention for her hypertrophic cardiomyopathy. Family History No Family History Records FoundUnknown Family Member Name Dates Details Family history of myocardial infarction: Mother(V17.3, Z82.49) Status:Active Family history of hypertensi on: Mother, Sister(V17.49, Z82.49) Status:Active Unknown Family Member Name Dates Details Family history of hypertensi on: Mother, Sister(V17.49, Z82.49) Status:Active Family history of myocardial infarction: Mother(V17.3, Z82.49) Status:Active Unknown Family Member Name Dates Details Family history of hypertensi on: Mother, Sister(V17.49, Z82.49) Status:Active Family history of myocardial infarction: Mother(V17.3, Z82.49) Status:Active Unknown Family Member Name Dates Details Family history of hypertensi on: Mother, Sister(V17.49, Z82.49) Status:Active Family history of myocardial infarction: Mother(V17.3, Z82.49) Status:Active Unknown Family Member Name Dates Details Family history of hypertensi on: Mother, Sister(V17.49, Z82.49) Status:Active Family history of myocardial infarction: Mother(V17.3, Z82.49) Status:Active Unknown Family Member Name Dates Details Family history of hypertensi on: Mother, Sister(V17.49, Z82.49) Status:Active Family history of myocardial infarction: Mother(V17.3, Z82.49) Status:Active Summary Purpose Reason for Referral Specialty Diagnoses / Procedures Referred By Contac t Referred To Contact Radiation Oncology Diagnoses Malignant neoplasm of left lung, unspecified part of lung (HCC) Procedures RAD/ONC CONSULT OFFICE/OUTPATIENT [facility] MDM 60-74 MINUTES Stan Garcia MD, PhD [address] [employer] -[address] [place] [id number] Referral ID Status Reason Start Date Expiration Date Visits Requested Visits Authorized [id number] Authorized PCP Requested Referral 03/10/2023 03/09/2024 1 1 Specialty Diagnoses / Procedures Referred By Contac t Referred To Contact Oncology Diagnoses Malignant neoplasm of left lung, unspecified part of lung (HCC) Procedures CONSULT TO ONCOLOGY OFFICE/OUTPATIENT NEW [facility] MDM 60-74 MINUTES Stan Garcia MD, PhD [address] [place] [address] Referral ID Status Reason Start Date Expiration Date Visits Requested Visits Authorized [id number] Authorized PCP Requested Referral 03/10/2023 03/09/2024 1 1 Specialty Diagnoses / Procedures Referred By Contac t Referred To Contact MR IMAGING Diagnoses Secondary malignant neoplasm of brain (HCC) Malignant neoplasm of left lung, unspecified part of lung (HCC) Procedures MRI BRAIN WO/W IVCON MRI BRAIN BRAIN STEM W/O W/CONTRAST MATERIAL Stan Garcia MD, PhD [address] [place] [address] Mr Imaging Referral ID Status Reason Start Date Expiration Date Visits Requested Visits Authorized [id number] Pending Review Auto-Generat ed Referral 03/10/2023 04/08/2024 1 1 Specialty Diagnoses / Procedures Referred By Contac t Referred To Contact RADIATION ONCOLOGY Diagnoses Malignant neoplasm of unspecified part of left bronchus or lung Procedures CT SIM PLANNING RADIATION ONCOLOGY THER RAD SIMULAJ-AIDED FIELD SETTING COMPLEX INTENSITY MODULATED RADIATION TX DLVR COMPLEX IMRT 30 fractions Saleem Fitch MD [address] [place] [address] [facility] [place] [place] [address] Referral ID Status Reason Start Date Expiration Date Visits Requested Visits Authorized [id number] Authorized PCP Requested Referral Patient Cleared INN/SMCP Payor Auth Obtained 03/21/2023 06/21/2023 31 31 Specialty Diagnoses / Procedures Referred By Contac t Referred To Contact Diagnoses SVT (supraventricular tachycardia) Procedures ECG 12 Lead Isabel Cagle MACHINE BENDER[employer]TURKEY PICKER [facility] [facility], [address] [address] Referral ID Status Reason Start Date Expiration Date V isits Requested Visits Authorized [id number] Pending Review 07/11/2023 07/10/2024 1 1 Specialty Diagnoses / Procedures Referred By Contac t Referred To Contact Cardiology Diagnoses Hypertrophic nonobstructive cardiomyopathy (CMS/HCC) ASHD (arteriosclerotic heart disease) Procedures Follow Up In Cardiology Isabel Cagle MACHINE BENDER[employer]UR[employer] PICKER [facility] [facility], [facility] [address] [place] [address] Brett Gongora DO [address] [facility], [address] [address] Referral ID Status Reason Start Date Expiration Date V isits Requested Visits Authorized [id number] Authorized 07/10/2023 07/09/2024 1 1 Additional Source Comments Care Teams (unrecognized sec tion and content) Team Status: Inactive Member Role Status Dates Viviane Loco MD Admit Provider, Attending Provide r Active Trupti Cuellar RN Other Provider Active W Jeff Gongora , DO Other Provider Active Bolivar Magana MD Other Provider Active Brett Price MD Other Provider Active Tonio Phillip MD Other Provider Active Aris Mckeon MD Other Provider Active Isabel Cagle APRN Other Provider Active Nitza Ventura MD Other Provider Active Karen Mcdowell MD Other Provider Active Charanjit Mckinney MD Other Provider Active Aris Stewart , Primary Care Provider Active Team Status: Active Member Role Status Dates Aris Stewart , Primary Care Provider Active Team Status: Inactive Member Role Status Dates Aris Stewart , Primary Care Provider Active eTo Gongora , DO Attending Provider Active Furniture Inspector Relationship Specialty Start Date End Date Aris Stewart Sr. [address] [place] [address] PCP - General Family Medicine 03/07/23 Betito Foss [address] [place] [address] Critical Care 03/08/23 Furniture Inspector Relationship Specialty Start Date End Date Aris Stewart Sr. [address] [place] [address] PCP - General Family Medicine 03/07/23 Betito Foss [address] [place] [address] Critical Care 03/08/23 Furniture Inspector Relationship Specialty Start Date End Date Aris Stewart Isac Sr. [address] [place] [address] PCP - General Family Medicine 03/07/23 Betito Foss [address] [place] [address] Critical Care 03/08/23 Furniture Inspector Relationship Specialty Start Date End Date Pat Aris Isac Sr. [address] [place] [address] PCP - General Family Medicine 03/07/23 Betito Foss [address] [place] [address] Critical Care 03/08/23 Furniture Inspector Relationship Specialty Start Date End Date Pat Aris Isac Sr. [address] [place] [address] PCP - General Family Medicine 03/07/23 Betito Foss [address] [place] [address] Critical Care 03/08/23 Furniture Inspector Relationship Specialty Start Date End Date Pat Aris Isac Sr. [address] [place] [address] PCP - General Family Medicine 03/07/23 Betito Foss [address] [place] [address] Critical Care 03/08/23 Furniture Inspector Relationship Specialty Start Date End Date Pat Aris Isac Sr. [address] [place] [address] PCP - General Family Medicine 03/07/23 Betito Foss [address] [place] [address] Critical Care 03/08/23 Furniture Inspector Relationship Specialty Start Date End Date Pat Aris Isac Sr. [address] [place] [address] PCP - General Family Medicine 03/07/23 Betito Foss [address] [place] [address] Critical Care 03/08/23 Furniture Inspector Relationship Specialty Start Date End Date Pat Aris Isac Sr. [address] [place] [address] PCP - General Family Medicine 03/07/23 Betito Foss [address] [place] [address] Critical Care 03/08/23 Furniture Inspector Relationship Specialty Start Date End Date Pat Aris Isac Sr. [address] [place] [address] PCP - General Family Medicine 03/07/23 Betito Foss [address] [place] [address] Critical Care 03/08/23 Furniture Inspector Relationship Specialty Start Date End Date Aris Stewart Sr. [address] [place] [address] PCP - General Family Medicine 03/07/23 Betito Foss [address] [place] [phone] Critical Care 03/08/23 Furniture Inspector Relationship Specialty Start Date End Date Aris Stewart Sr. [address] [place] [address] PCP - General Family Medicine 03/07/23 Betito Foss [address] [place] [address] Critical Care 03/08/23 Furniture Inspector Relationship Specialty Start Date End Date Aris Stewart Sr. [address] [place] [address] PCP - General Family Medicine 03/07/23 Betito Foss MD [address] [place] [address] Critical Care 03/08/23 Furniture Inspector Relationship Specialty Start Date End Date Aris Stewartip Sr. [address] [place], [place] [id number] PCP - General Family Medicine 03/07/23 Betito Foss MD [address] [place] [address] Critical Care 03/08/23 Furniture Inspector Relationship Specialty Start Date End Date Aris Stewart Sr. [address] [place] [address] PCP - General Family Medicine 03/07/23 Betito Foss MD [address] [place] [address] Critical Care 03/08/23 Furniture Inspector Relationship Specialty Start Date End Date Aris Stewart, DO [address] [place] [phone] PCP - General 01/25/22 Furniture Inspector Relationship Specialty Start Date End Date Aris Stewart , DO [address] [place] [address] PCP - General Family Medicine 03/07/23 Betito Foss MD [address] [place] [address] Critical Care 03/08/23 Reason for Visit (unrecogniz ed section and content) Reason Comments Patient Update Cardiac Clearance Reason Comments External Referrals/resources Consult Reason Comments Received Outside Medical Records Reason Comments Appointment Reason Comments Patient Education Reason Comments aromatherapy Reason Onset Date Comments Simulation Request Form 03/17/2023 Reason Comments Radiotherapy On-treatment Visit Reason Comments Missed Appointment Reason Comments Rapid Heart Rate Specialty Diagnoses / Procedures Referred By Contac t Referred To Contact Diagnoses SVT (supraventricular tachycardia) Procedures ECG 12 Lead Isabel Cagle, MACHINE BENDER[employer]TURKEY PICKER [facility] [facility], [address] [address] Referral ID Status Reason Start Date Expiration Date V isits Requested Visits Authorized [id number] Pending Review 07/11/2023 07/10/2024 1 1 Reason Comments Lung Cancer INFORMATION SOURCE (unrecogn ized section and content) DATE CREATED AUTHOR 02/24/2022 [facility] DATE CREATED AUTHOR AUTHOR'S ORGANIZ ATION 08/18/2022 [facility] DATE CREATED AUTHOR AUTHOR'S ORGANIZ ATION 12/30/2022 [facility] DATE CREATED AUTHOR AUTHOR'S ORGANIZ ATION 01/05/2023 [facility] DATE CREATED AUTHOR AUTHOR'S ORGANIZ ATION 04/27/2023 [facility] DATE CREATED AUTHOR AUTHOR'S ORGANIZ ATION 06/20/2023 [facility] DATE CREATED AUTHOR AUTHOR'S ORGANIZ ATION 07/11/2023 [facility] DATE CREATED AUTHOR AUTHOR'S ORGANIZ ATION 08/05/2023 [facility] EPIC DATE CREATED AUTHOR AUTHOR'S ORGANIZ ATION 09/26/2023 [facility] Source Comments (unrecognize d section and content) In the event this informatio n is protected by the Federal Confidentiality of Alcohol and Drug Abuse Patient Records regulations: The Federal rules restrict any use of the information to criminally investigate or prosecute any alcohol or drug abuse patient.[facility] the event this information is protected by the Federal Confidentiality of Alcohol and Drug Abuse Patient Records regulations: The Federal rules restrict any use of the information to criminally investigate or prosecute any alcohol or drug abuse patient.[facility] the event this information is protected by the Federal Confidentiality of Alcohol and Drug Abuse Patient Records regulations: The Federal rules restrict any use of the information to criminally investigate or prosecute any alcohol or drug abuse patient.[facility] the event this information is protected by the Federal Confidentiality of Alcohol and Drug Abuse Patient Records regulations: The Federal rules restrict any use of the information to criminally investigate or prosecute any alcohol or drug abuse patient.[facility] Center[facility] the event this information is protected by the Federal Confidentiality of Alcohol and Drug Abuse Patient Records regulations: The Federal rules restrict any use of the information to criminally investigate or prosecute any alcohol or drug abuse patient.[facility] Center[facility] the event this information is protected by the Federal Confidentiality of Alcohol and Drug Abuse Patient Records regulations: The Federal rules restrict any use of the information to criminally investigate or prosecute any alcohol or drug abuse patient.[facility] Center[facility] the event this information is protected by the Federal Confidentiality of Alcohol and Drug Abuse Patient Records regulations: The Federal rules restrict any use of the information to criminally investigate or prosecute any alcohol or drug abuse patient.[facility] Center[facility] the event this information is protected by the Federal Confidentiality of Alcohol and Drug Abuse Patient Records regulations: The Federal rules restrict any use of the information to criminally investigate or prosecute any alcohol or drug abuse patient.[facility] Center[facility] the event this information is protected by the Federal Confidentiality of Alcohol and Drug Abuse Patient Records regulations: The Federal rules restrict any use of the information to criminally investigate or prosecute any alcohol or drug abuse patient.[facility] Center[facility] the event this information is protected by the Federal Confidentiality of Alcohol and Drug Abuse Patient Records regulations: The Federal rules restrict any use of the information to criminally investigate or prosecute any alcohol or drug abuse patient.[facility] Center[facility] the event this information is protected by the Federal Confidentiality of Alcohol and Drug Abuse Patient Records regulations: The Federal rules restrict any use of the information to criminally investigate or prosecute any alcohol or drug abuse patient.[facility] CenterIn the event this information is protected by the Federal Confidentiality of Alcohol and Drug Abuse Patient Records regulations: The Federal rules restrict any use of the information to criminally investigate or prosecute any alcohol or drug abuse patient.[facility] Center[facility] the event this information is protected by the Federal Confidentiality of Alcohol and Drug Abuse Patient Records regulations: The Federal rules restrict any use of the information to criminally investigate or prosecute any alcohol or drug abuse patient.[facility] CenterIn the event this information is protected by the Federal Confidentiality of Alcohol and Drug Abuse Patient Records regulations: The Federal rules restrict any use of the information to criminally investigate or prosecute any alcohol or drug abuse patient.[facility] CenterIn the event this information is protected by the Federal Confidentiality of Alcohol and Drug Abuse Patient Records regulations: The Federal rules restrict any use of the information to criminally investigate or prosecute any alcohol or drug abuse patient.[facility] CenterIn the event this information is protected by the Federal Confidentiality of Alcohol and Drug Abuse Patient Records regulations: The Federal rules restrict any use of the information to criminally investigate or prosecute any alcohol or drug abuse patient.[facility] CenterIn the event this information is protected by the Federal Confidentiality of Alcohol and Drug Abuse Patient Records regulations: The Federal rules restrict any use of the information to criminally investigate or prosecute any alcohol or drug abuse patient.[facility] CenterIn the event this information is protected by the Federal Confidentiality of Alcohol and Drug Abuse Patient Records regulations: The Federal rules restrict any use of the information to criminally investigate or prosecute any alcohol or drug abuse patient.[facility] FOR RECORDS PERTAINING TO PATIENTS WHO ARE OR HAVE BEEN ENROLLED IN A CHEMICAL DEPENDENCY/SUBSTANCEABUSE PROGRAM, SOME INFORMATION MAY BE OMITTED. This clinical summary was aggregated from multiple sources. Caution should be exercised in using it in the provision of clinical care. This summary normalizes information from multiple sources, and as a consequence, information in this document may materially change the coding, format and clinical context of patient data. In addition, data may be omitted in some cases. CLINICAL DECISIONS SHOULD BE BASED ON THE PRIMARY CLINICAL RECORDS. [employer] [facility]. provides no warranty or guarantee of the accuracy or completeness of information in this document.
== END 2023-10-10 09:26 | disposition home or self-care (01) ==
PROVIDERS: PCP Internal Medicine; Visit Provider Internal Medicine Hematology & Oncology
DX: C34.92 Malignant neoplasm of unspecified part of left bronchus or lung (principal); D72.829 Elevated white blood cell count, unspecified; D64.9 Anemia, unspecified; R11.2 Nausea with vomiting, unspecified; D72.820 Lymphocytosis (symptomatic)
CPT/HCPCS: 71046

== ENCOUNTER 2023-10-16 08:27 | Outpatient (OUT) | payer OTHER, SELFPAY ==
--- OUTSIDE RECORDS SUMMARY | 2023-10-16 08:31 | XMS_ITS | CCD ---
Author Name Unknown Address [address] [place] [address] Organization [facility] Care Team Providers Care Rough Rice Grader Name Role Phone MD Viviane Loco Admit Provider MD Viviane Loco Attending Provider BURTON Cuellar Other Provider Unavailable DO Teo Gongora Other Provider MD Bolivar Magana Other Provider [phone] MD Brett Price Other Provider MD Tonoi Phillip Other Provider MD Aris Mckeon Other Provider KATHI Weiss Other Provider MD Nitza Ventura Other Provider MD Karen Mcdowell Other Provider MD Charanjit Mckinney Other Provider DO Aris Stewart Primary Care Provider [phone] Aris Stewart Unavailable Unavailable Unavailable Unavailable Unavailable ALLY SANTORO Attending Unavailable ALLY SANTORO Admitting Unavailable PAT, DR HURST Primary Care Unavailable JERALD, DR MARIANN Napier Consulting Unavailable ALLY SANTORO Consulting Unavailable YESIKA URBINA Consulting Unavailable PAT, DR HURST Admitting Unavailable PAT, DR HURST Consulting Unavailable KIMBALL, DR HURST Attending Unavailable KIMBALL, DR HURST Primary Care Unavailable Abelardo Flannery Consulting Unavailable HOUSE, DR HURST Attending Unavailable HOUSE, DR HURST Admitting Unavailable HOUSE, DR HURST Primary Care Unavailable ANN ARBOR, DR ABELARDO Johnson Consulting Unavailable HOUSE, DR [...] Provider Rolan, DO Teo Aguilar Attending Provider Aris Stewart [facility] Unavailable Rolan, Teo Aguilar Attending Unavailable Rolan, Teo Aguilar Admitting Unavailable Lebeau Sr., [facility] Provider Gino, Betito A Unavailable [phone] Neetu Gongora, Dr. Brett Aguilar Attending Unava ilable aPt, Dr. Aris Chau [facility] Unava ilable Rolan, Dr. Brett Aguilar Referring Unava ilable Rolan, Dr. Brett Aguilar Attending Unava ilable Pat, Dr. Aris Chau [facility] Unava ilable Rolan, Dr. Brett Aguilar Attending Unava ilable Pat, Dr. Aris Chau [facility] Unava ilable Rolan, Dr. Brett Aguilar Attending Unava ilable Pat, Dr. Aris Chau [facility] Unava ilable Rolan, Dr. Brett Aguilar Referring Unava ilable Rolan, Dr. Brett Aguilar Attending Unava ilable Pat, Dr. Aris Chau [facility] Unava illinus Foss MD, Betito A Unavailable [phone] OMMANJINDER, BETITO Referring Unavailable OMBALLI, MOHJEREMIAS Referring Unavailable OMBALLI, MOHAMED Referring Unavailable OMBALLI, BETITO Attending Unavailable JENNIFER, ARCHANA Referring Unavailable OMBALLI, MOHAMED Attending Unavailable OMBALLI, MOHAMED Referring Unavailable SYDNEE, MARIELLE Referring Unavailable OMBALLI, MOHAMED Attending Unavailable JENNIFER, APOORA Referring Unavailable OMBALLI, MOHAMED Referring Unavailable OMBALLI, MOHAMED Attending Unavailable OMBALLI, MOHAMED Referring Unavailable OMBALLI, MOHAMED Referring Unavailable House DO, [facility] Primary Care Provider ISABEL CAGLE Attending Unavailable HOUSE, [facility] Care Unavailab le House Sr., DO, [facility] Prov ider SHAIKH MORA Attending Unavailable HOUSE SR, [facility] Unavai lable LITTLE, SALEEM Referring Unavailable HOUSE SR, [facility] Unavai lable LITTLE, SALEEM Attending Unavailable HOUSE SR, [facility] Unavai lable LITTLE, SALEEM Referring Unavailable HOUSE SR, [facility] Unavai lable LITTLE, SALEEM Attending Unavailable HOUSE SR, [facility] Unavai lable LITTLE, SALEEM Referring Unavailable HOUSE SR, [facility] Unavai lable LITTLE, SALEEM Attending Unavailable HOUSE SR, [facility] Unavai lable LITTLE, SALEEM Attending Unavailable LITTLE, SALEEM Referring Unavailable HOUSE SR, [facility] Unavai lable LITTLE, SALEEM Referring Unavailable HOUSE SR, [facility] Unavai lable LITTLE, SALEEM Referring Unavailable HOUSE SR, [facility] Unavai lable LITTLE, SALEEM Referring Unavailable JENNIFER, ARCHANA Referring Unavailable HOUSE SR, [facility] Unavai lable LITTLE, SALEEM Attending Unavailable JENNIFER, ARCHANA Referring Unavailable HOUSE SR, [facility] Unavai lable LITTLE, SALEEM Attending Unavailable HOUSE SR, [facility] Unavai lable LITTLE, SALEEM Referring Unavailable HOUSE SR, [facility] Unavai lable LITTLE, SALEEM Attending Unavailable HOUSE SR, [facility] Unavai lable LITTLE, SALEEM Referring Unavailable HOUSE SR, [facility] Unavai lable LITTLE, SALEEM Attending Unavailable HOUSE SR, [facility] Unavai lable LITTLE, SALEEM Referring Unavailable HOUSE SR, [facility] Care Unavai lable LITTLE, SALEEM Referring Unavailable HOUSE SR, [facility] Unavai lable LITTLE, SALEEM Referring Unavailable HOUSE SR, [facility] Unavai lable HOUSE SR, [facility] Care Unavai lable HOUSE SR, [facility] Unavai lable HOUSE SR, [facility] Unavai lable LITTLE, SALEEM Referring Unavailable HOUSE SR, [facility] Unavai lable LITTLE, SALEEM Referring Unavailable HOUSE SR, [facility] Unavai lable LITTLE, SALEEM Referring Unavailable HOUSE SR, [facility] Unavai lable LITTLE, SALEEM Referring Unavailable LITTLE, SALEEM Attending Unavailable HOUSE SR, [facility] Unavai lable LITTLE, SALEEM Referring Unavailable HOUSE SR, [facility] Unavai lable LITTLE, SALEEM Referring Unavailable HOUSE SR, [facility] Unavai lable LITTLE, SALEEM Referring Unavailable HOUSE SR, [facility] Unavai lable LITTLE, SALEEM Referring Unavailable HOUSE SR, [facility] Unavai lable HOUSE SR, [facility] Unavai lable LITTLE, SALEEM Referring Unavailable HOUSE SR, [facility] Unavai lable LITTLE, SALEEM Attending Unavailable HOUSE SR, [facility] Unavai lable LITTLE, SALEEM Attending Unavailable HOUSE SR, [facility] Unavai lable LITTLE, SALEEM Referring Unavailable HOUSE SR, [facility] Unavai lable LITTLE, SALEEM Referring Unavailable HOUSE SR, [facility] Unavai lable LITTLE, SALEEM Referring Unavailable HOUSE SR, [facility] Unavai lable LITTLE, SALEEM Referring Unavailable HOUSE SR, [facility] Unavai lable LITTLE, SALEEM Referring Unavailable HOUSE SR, [facility] Unavai lable LITTLE, SALEEM Referring Unavailable HOUSE SR, [facility] Unavai lable LITTLE, SALEEM Referring Unavailable HOUSE SR, [facility] Unavai lable LITTLE, SALEEM Referring Unavailable HOUSE SR, [facility] Unavai lable LITTLE, SALEEM Attending Unavailable HOUSE SR, [facility] Mona avalos LITTLE, SALEEM Attending Unavailable KIMBALL SR, [facility] Mona debbijorge alberto LITTLE, SALEEM Referring Unavailable KIMBALL SR, [facility] Mona debbijorge alberto LITLTE, SALEEM Referring Unavailable KIMBALL SR, [facility] Mona debbijorge alberto LITTLE, SALEEM Referring Unavailable KIMBALL SR, [facility] Mona debbijorge alberto LITTLE, SALEEM Referring Unavailable Allergies Allergy Classification Reported Allergen(s) Allergy Type Date of Onset Reaction(s) Facility (5 sources) Codeine; 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: [Codeine] Drug Allergy 06-16-2016 [facility] Medications Current Medications Medication Drug Class(es) Dates [...] mouth. 0 Active take 1 capsule by [facility] twice daily before mealtime [...] to 7 days. May alternate with Tylenol/Motrin. [id number] 200 actuat albuterol 0.09 mg/actuat metered dose inhaler (18 sources) beta2-Adrenergic Agonist Start: 02-21-2023 take 2 puff(s) by mouth every six hours albuterol HFA (PROVENTIL HFA, VENTOLIN HFA) 90 mcg/actuation inhaler inhale 2 puffs by mouth and INTO THE LUNGS every 6 hours if neede... (REFER TO PRESCRIPTION NOTES). 0 02/21/2023 Active Comment on above: inhale 2 puffs by mo [facility] and INTO THE LUNGS every 6 hours [...] / neomycin 3.5 mg/ml / polymyxin b [id number] unt/ml otic suspension (2 sources) Aminoglycoside Antibacterial, Polymyxin-class Antibacterial, Corticosteroid Start: 02-18-2022 Qevimilx-Qhdwqptis-QS 3.5-29940-0 Otic Suspension Quantity: 10 Refills: 0 Ordered: [...] [Coronary atherosclerosis of unspecified type of vessel, [place] or graft] Onset: 2 12-30-2022 Chronic Coronary atherosclerosis and other heart disease (6 sources) Patient post percutaneous transluminal coronary angioplasty; 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: [Percutaneous transluminal coronary angioplasty status] Onset: 2 07-07-2023 Episodic Disorders of lipid metabolism (4 sources) Mixed hyperlipidemia; 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: [Mixed hyperlipidemia] Onset: 3 07-10-2023 Chronic Essential hypertension (7 sources) Essential (primary) hypertension; 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: [Essential hypertension] Onset: 2 12-30-2022 Chronic Other aftercare (1 source) doll dresser (current) use of aspirin; 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: [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 DELIVERY DRIVER CURRENT USE OF ASPIRIN] Onset: 2 Episodic [...] Unclassified (1 source) Atherosclerotic heart disease of [place] coronary artery with unspecified angina pectoris; 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: [Atherosclerotic heart disease of [place] coronary artery with unspecified angina pectoris] Onset: [...] 02-17-2022 Episodic Other aftercare (1 source) Other housekeeping supervisor (current) drug therapy; 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: [OTH ROUTE DELIVERY DRIVER CURRENT DRUG THERAPY] Onset: 02-21-2022 Episodic Other [...] Test Name Value Interpretation Reference Range Facility [facility] 09-25-2023 CNPN Telephone (THORMN) -- JEANMARIE FARIA ([id number]) 1965 F Date Time Provider Department 09/25/23 STAN GARCIA During your visit today, we recorded the following information about you: Alber Fernandez 09/25/2023 1:54 PM Signed Received Hem/Onc office notes 09/19/23 from [facility] Record scanned in Epic Alber Fernandez, systems administrator Allergies As of Date: 09/25/2023 (No Known Allergies) Date Reviewed: 07/13/2023 Reviewed by: Toney Bailon LPN - Fully Assessed Reason for Visit: Received Outside Medical Records [[id number]] Prescriptions as of 09/25/2023 - buPROPion XL [...] Status:Closed by ALBER FERNANDEZ on 09/25/23 [facility] CNOVon 07-13-2023 CNOV Office Visit (RADTSA ) -- JEANMARIE FARIA ([id number]) 1965 F Date Time Provider Department 07/13/23 [...] in coordination with Dr. Rodriguez at the [facility] on 05/11/2023 (6,000 cGy delivered in 30 fractions with concurrent carboplatin/paclitaxel). INTERVAL HISTORY/ROS: Ms. Faria returns to clinic today for routine follow-up approximately two months after the completion of her radiation treatments. In the interim, she was hospitalized shortly after completion of treatment for pneumonia and arrhythmia (tachycardia). Since discharge she has been on supplemental oxygen ctwpgk-nds-rzmrg via nasal cannula at 2 L/min. She feels that her cough is improved and denies any hemoptysis but still has some tightness in the chest with deep breaths. She denies any esophagitis that she is swallowing well. She is seeing a physical damage appraiser and is currently on a nebulizer 3 [...] in coordination with Dr. Rodriguez at the [facility] on 05/11/2023 (6,000 cGy delivered in 30 fractions with concurrent carboplatin/paclitaxel). Ms. Faria continues to recover from the acute toxicities of her recent course of chemoradiation which was complicated by recent hospitalization for pneumonia. She is showing slow improvement but continues to require supplemental oxygen and will follow with her physical damage appraiser plans for PFTs as well as pulmonary rehab. Initial posttreatment imaging with PET/CT from 07/07/2023 shows exce (more content not included)... [facility] JEANMARIE FARIA ([id number]) 1965 F Date Time Provider Department 06/27/23 [facility] During your visit today, we recorded the [...] PM Signed Patient pet was approved through [place] she is scheduled this Monday for scan and I did schedule her a followup for next week. thanks Allergies As of Date: 06/27/2023 (No Known Allergies) Date Reviewed: 05/10/2023 Reviewed by: Nilsa Deal, BURTON - Fully Assessed Reason for Visit: Appointment Confirmation [[id number]] Primary Visit Diagnosis:Malignant neoplasm of unspecified part of unspecified bronchus or lung (HCC) [C34.90] Order(s):NM PET/CT SKULL-THIGH SUBSEQUENT [[id number]] Order #: [id number] FUTURE Prescriptions as of 07/03/2023 - prochlorperazine [...] Encounter Status:Closed by PINO ALBRECHT on 06/29/23 [facility] CONSULTon 06-19-2023 CONSULT ------ -- Attestation [...] for recheck of EKG Maritza Pardo MD [place] [facility] -- Cardiology Consult Note Reason for [...] history of COPD (chronic obstructive pulmonary disease) ([facility]), Coronary artery disease, Diverticulosis, GERD (gastroesophageal reflux disease), History of transfusion, Hyperlipidemia, Hypertension, Irritable bowel syndrome, Mediastinal mass, Myocardial infarction ([facility]) (11/2021), and Spastic colon. Surgical History She [...] Onset Heart failure Mother Diabetes Mother Other ([place]) Mother Hypertension Mother Allergies Patient has no [...] Value Ventricular Rate 99 Atrial Rate 99 DE Interval 150 QRS DURATION 86 QT Interval 362 QTC CALCULATION(BAZETT) 464 P [place] 32 R-[place] 20 T Wave [place] 170 Impression Sinus rhythm with Premature atrial [...] diffuse tracheobronchomalacia that (more content not included)... [facility] 06-19-2023 ------ -- Attestation signed by Betito Foss MD at 06/19/2023 11:56 AM Re-explained the procedure to the patient along with the associated risk of pneumothorax, bleeding, hypoxia, and respiratory failure. Patient is agreeable and will proceed with the scheduled bronchoscopy and stent revision/removal Betito Foss MD Interventional Pulmonary Medicine Pulmonary and Critical Care Medicine [facility] Physicians -- H&P reviewed. The patient was [...] in details, she is agreeable. Consent obtained. [facility] Orders Onlyon 06-19-2023 Orders Only [id number] Cyndee Faria 1965 F Date Provider Department Center 06/19/2023 LITTLE RAZOESH [facility] CARD Flo Grimm Family History Problem Relation Age of Onset Heart failure Mother Diabetes Mother Other Mother Hypertension Mother Family Status - Relation Status Age at Mother Normal [facility] POCT GLUCOSE METER UNSOLICIT ED RESULTSon 06-19-2023 Glucose [Mass/Vol] 100 mg/dL Normal 70-105 [facility] ela [facility] Comment on above: Order Comment: Waive d Testing in the ED is performed under the ED CLIA certificate #[id number]. Result Comment: ltol les Performed By: #### L [id number] ####[facility] (BEAKER)[address] [place] [address] Orders Onlyon 06-16-2023 Orders Only [id number] Cyndee Faria da 1965 [facility] Department Center 06/16/2023 TOYIN CRENSHAW [facility] PAT [facility] Family History Problem Relation Age of Onset Heart failure Mother Diabetes Mother Other Mother Hypertension Mother Family Status - Relation Status Age at Mother Normal [facility] HPon 06-15-2023 HP ------ -- Attestation signed [...] me. -- Pulmonary Clinic Visit Note Patient: Jeamnarie Faria Age: 57 y.o. : 1965 Account No.: [id number] Chief complaint: Stent reversion HPI Jenamarie Faria is a 57 y.o. femalepast medical [...] was initiated by the patient and conducted nvr-xwti-pd-face with use of audio-only real time telephone communication between patient and provider for a virtual visit. Verbal consent to provide and bill for this service was obtained on 06/15/2023. No signature was obtained due to the COVID-19 pandemic. Julio Taylor Pulmonary and critical care fellow [facility]. 06/15/23 11:39 AM Normal [facility] Telemedicineon 06-15-2023 Telemedicine [id number] Cyndee Faria 1965 F Date Provider Department Center 06/15/2023 383-BETITO FOSS DCC ONC DCC Family History Problem Relation Age of Onset Heart failure Mother Diabetes Mother Other Mother Hypertension Mother Family Status - Relation Status Age at Mother Level of Service:81743 DE PHYS/QHP TELEPHONE EVALUATION 21-30 MIN () Reason for Visit and Comments: tracheal mass [Other] - Tracheal stent placed in February [address] Foss for tracheal mass. Dr Rodriguez would like patient bronched for EBUS restaging. Notes scanned into media. CT done 05-29-23. Films in EPIC [facility] ERIK Telephone (RADTSA) -- JEANMARIE AFRIA ([id number]) 1965 F Date Time Provider Department 06/01/23 SALEEM FITCH During your visit today, we recorded the following information about you: Toney Bailon LPN 06/01/2023 9:54 AM Signed I called to get a post radiation therapy update from Jeanmarie. She states she is currently inpatient at [facility] with pneumonia. She will call our [...] Encounter Status:Closed by TONEY BAILON on 06/01/23 [facility] Candido 05-11-2023 [facility] Telephone (WIQ) -- JEANMARIE FARIA ([id number]) 1965 F Date Time Provider Department 05/11/23 RYAN BAIN During your visit today, we recorded the following information about you: Ryan Bain, [facility] 05/11/2023 2:56 PM Signed Smoking Cessation Navigation Outcome of contact: Left Message Comments: A voicemail has been left for this patient regarding Tobacco Cessation support options. If this patient has any further questions they can email us at [email or web address]; to [email or web address] or call us at [phone]. Genapsysth Frame Trimmer/Smoking Cessation Navigator: [facility] Allergies As of Date: 05/11/2023 (No Known [...] Encounter Status:Closed by RYAN BAIN on 05/11/23 [facility] CNOVon 05-10-2023 CNOV Office Visit (RADTSA ) -- JEANMARIE FARAI ([id number]) 1965 F Date Time Provider Department 05/10/23 [...] Encounter Status:Closed by SALEEM FITCH on 05/23/23 [facility] CNOVmerced 05-03-2023 CNOV Office Visit (RADTSA ) -- JEANMARIE FARIA ([id number]) 1965 F Date Time Provider Department 05/03/23 [...] Encounter Status:Closed by SALEEM FITCH on 05/16/23 [facility] Paul 04-26-2023 CNOV Office Visit (RADTSA ) -- JEANMARIE FARIA ([id number]) 1965 F Date Time Provider Department 04/26/23 [...] of lung [D49.1] Order(s):CONSULT TO SMOKING CESSATION [[id number]] Order #: [id number]: 1 Prescriptions as of 05/09/2023 - prochlorperazine [...] Encounter Status:Closed by SALEEM FITCH on 05/09/23 [facility] CNOVon 04-19-2023 CNOV Office Visit (RADTSA ) -- JEANMARIE FARIA ([id number]) 1965 F Date Time Provider Department 04/19/23 [...] Encounter Status:Closed by SALEEM FITCH on 05/02/23 [facility] CNOVon 04-18-2023 CNOV Office Visit (HEMASA ) -- JEANMARIE FARIA ([id number]) 1965 F Date Time Provider Department 04/18/23 [...] Encounter Status:Closed by BRI BERNARD on 04/18/23 [facility] MARGIEOVmerced 04-12-2023 CNOV Office Visit (RADTSA ) -- JEANMARIE FARIA ([id number]) 1965 F Date Time Provider Department 04/12/23 [...] - amoxicillin-clavulani (more content not included)... Normal [facility] 04-11-2023 CNPN Telephone (RADTSA) -- JEANMARIE FARIA ([id number]) 1965 F Date Time Provider Department 04/11/23 [...] Encounter Status:Closed by NILSA DEAL on 04/11/23 [facility] Paul 04-05-2023 CNOV Office Visit (RADTSA ) -- JEANMARIE FARIA ([id number]) 1965 F Date Time Provider Department 04/05/23 [...] Encounter Status:Closed by [facility]ALEEM [facility] Nurse Visit (RUY) -- JEANMARIE FARIA ([id number]) 1965 F Date Time Provider Department 03/28/23 3:30 PM NURSE KRISTYN REDMOND During your visit today, we recorded the following information about you: Toney Balion LPN 03/28/2023 3:46 PM Signed Aromatherapy to [...] Encounter Status:Closed by TONEY BAILON on 03/28/23 [facility] CNOVon 03-28-2023 CNOV Office Visit (RADTSA ) -- JEANMARIE FARIA ([id number]) 1965 F Date Time Provider Department 03/28/23 [...] Saleem Fitch MD Referring Provider: SALEEM FITCH [[id number]] Allergies As of Date: 03/28/2023 (No Known [...] time. En (more content not included)... Normal [facility] -- JEANMARIE FARIA ([id number]) 1965 F Date Time Provider Department 03/23/23 [...] Encounter Status:Closed by TONEY BAILON on 03/23/23 [facility] CNOVon 03-17-2023 CNOV Office Visit (RADTSA ) -- JEANMARIE FARIA ([id number]) 1965 F Date Time Provider Department 03/17/23 [...] which included preparing to see the patient, zhsy-vk-vasp patient care, counseling and educating the patient/family/caregiver, and communicating results to the patient/family/caregiver. This document has been created with the use of voice recognition technology. It may contai (more content not included)... Normal [facility] PET/CT SKULL-THIGH INITon 03-15-2023 [place] PET/CT SKULL-THIGH INIT * * *Final Report* * * DATE OF EXAM: Mar 15 2023 11:07AM NRN [id number] - WA PET/CT SKULL-THIGH INIT / PROCEDURE REASON: Neoplasm of lung * * * * Physician Interpretation * * * * RESULT: EXAM: [place] PET/CT SKULL-THIGH INIT HISTORY: 57 years old [...] - Background liver activity (max SUV): 2.8 Textile Machine Maintenance Mechanic (topogram) images: No additional findings. HEAD AND [...] report reviewed and electronically signed by: YAZAN SCHWARZT MD on Mar 15 2023 3:31PM EST Thank you for allowing us to participate in the care of your patient. Should there be any questions regarding this interpretation, please call [phone]. If you are unable to reach us at the number above, please feel free to contact [facility] eRadiology at [phone]. [id number] Normal [facility] CNPJossy 03-14-2023 CNPN Telephone (ZANAMN) -- JEANMARIE FARIA ([id number]) 1965 F Date Time Provider Department 03/14/23 STAN GARCIA During your visit today, we recorded the following information about you: Alber Fernandez 03/14/2023 2:32 PM Signed Received Hem/Onc consult notes 03/07/23 from The [facility] Record scanned in [facility] pernell Constantino Cassandra 03/27/2023 11:23 AM Signed Received Hem/Onc office notes 03/21/23 from The [facility] Record scanned in [facility] Alber Fernandez systems administratorAlber Mcdonald 03/28/2023 1:06 PM Signed Received Hem/Onc office notes 03/28/[address] [facility] Record scanned in [facility] Alber Fernandez systems administratorAlber Mcdonald 04/18/2023 3:47 PM Signed Received Hem/Onc office notes 04/11/23 from The [facility], [facility] Record scanned in [facility] pernell Constantino Cassandra 04/21/2023 9:33 AM Signed Received OSH Hem/Onc office notes 04/18/23 from The [facility] Record scanned in [facility] pernell Constantino Rebecca, RN 04/21/2023 11:25 AM Addendum noted no surgery apart of plan. [place] Herrera Cassandra 08/22/2023 9:39 AM Signed Received Hem/Onc office notes 08/15/23 from [facility] Record scanned in [facility] Alber Fernandez systems administrator Allergies As of Date: 03/14/2023 (No [...] Encounter Status:Closed by ALBER FERNANDEZ on 03/14/23 [facility] Candido 03-13-2023 ERIK Telephone (RADTSA) -- JEANMARIE FARIA ([id number]) 1965 F Date Time Provider Department 03/13/23 [...] any insight Nancy Beach MSN, RN Nurse Fabric Machine Operator Thoracic Surgery [facility] Nilsa Deal RN 03/13/2023 3:44 PM Signed [...] MRI I can get her scheduled at [place] looks like she normally goes there, I tried to call her to ask, looks like her insurance may require auth also Abdulkadir LandaverdePino 03/15/2023 12:58 PM Signed Called alexa they are calling patient today to schedule appt for this week she said. Toney Bailon LPN 03/21/2023 2:25 PM Signed I called [facility] scheduling dept for an update on [...] Encounter Status:Closed by NILSA DEAL on 03/24/23 [facility] 03-10-2023 ------ -- Attestation signed by Betito Foss MD at 03/10/2023 10:58 AM Re-explained the procedure to the patient along with the associated risk of pneumothorax, bleeding, hypoxia, and respiratory failure. Patient is agreeable and will proceed with the scheduled rigid bronchoscopy, tumor debulking, and stent Betito Foss MD Interventional Pulmonary Medicine Pulmonary and Critical Care Medicine [facility] Physicians -- History Of Present Illness Jeanmarie [...] Onset Heart failure Mother Diabetes Mother Other ([place]) Mother Hypertension Mother Allergies Patient has no [...] TBNA using a (more content not included)... [facility] NURSNOTEon 03-10-2023 NURSNOTE Reviewed instruction s with patient and sister, copy given. Stable for [place] home. Normal [facility] POCT GLUCOSE METER UNSOLICIT ED RESULTSon 03-10-2023 Glucose [Mass/Vol] 113 mg/dL High 70-105 [facility] Comment on above: Order Comment: Waive d Testing in the ED is performed under the ED CLIA certificate #[id number]. Result Comment: aepp ink Performed By: #### L [id number] ####[facility] (ARVINAKER)[address] [place] [address] CNOVon 03-08-2023 CNOV Office Visit (RADTSA ) -- JEANMARIE FARIA ([id number]) 1965 F Date Time Provider Department 03/08/23 [...] the Department of Radiation Oncology at the [facility] with Saleem Fitch MD. Final recommendations will be communicated back to the requesting physician by way of the shared medical record, or letter to requesting physician via US mail. HISTORY OF PRESENT ILLNESS: Ms. Faria is a 57-year-old woman in [place], [place] who was found to have a [...] met with Dr. Rodriguez medical oncology at [facility] and referred to physical damage appraiser Dr. Foss as an outpatient. She underwent [...] the past year and having had an [place] approximately a year ago. She does note [...] Ms. Faria is and lives in the [place], [place] area. 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 She notes an approximate 17-ccoc-soir history of smoking and has reduced down [...] 162 lb (more content not included)... Normal [facility] -- JEANMARIE FARIA ([id number]) 1965 F Date Time Provider Department 03/08/23 STAN GARCIA During your visit today, we recorded the following information about you: Alber Jim 03/09/2023 3:28 PM Addendum LOCAL PATIENT Received Fax from Dr. Archana Noriega Giana is being referred to Stan Garcia M.D., Ph. D. Or Lamonte Guerra by Dr. Archana Rodriguez [address] [place] [id number] Patient diagnosis/Reason for consult: Lung Cancer Referral triage process explained: No Patient will receive a call from Thoracic NPM after triage review with surgeon to discuss any additional testing and/or consults that will be scheduled. Pt will then receive a call from our scheduling office for scheduling. Please call pt at [phone]. Patient was informed consultation could be at [place] or [facility] [place]: No Patient Registration: Registration complete/updated: yes Insurance card(s) scanned in [facility] with in the past year: Yes: Date: 03/08/23 Pt's MyChart is Pending. Ok to communicate to pt via Parudi not asked Medical Records: Records in [facility] (internal CC records): Yes Imaging in [facility] (internal CC records): Yes Care Everywhere - queried yes, downloaded Yes Linked Outside Organizations (list): [facility]; [facility]; [facility] OS Records Requested: No Date: N/A Outside Hospital(s) requested records from: n/a Received: yes Uploaded: Yes. Waiting on additional records: No. Missing (list): N/A OSH Pathology Slides Requested: no Date: N/A Outside Hospital(s) slides requested from: n/a OS Radiology Imaging Requested: yes Date: March 08, 2023 Outside Hospital(s) requested imaging from: [place]. Imaging will be received via Electronic Transfer Received: Yes Imaging uploaded: Yes Waiting on additional: No Missing (list): n/a Additional providers added to Care Teams: Yes Additional Notes/Comments: n/a Enct routed to: Zana Louis NPM for Triage Alber Fernandez, systems administrator Nancy Beach, [place] 03/10/2023 3:31 PM Addendum Thoracic Surgery Consultation - review of records for appointment scheduling Received medical records from the office of Archana Rodriguez [address] [id number] Patient is being referred to Stan Garcia [...] position. ebus 03/03/2023 Imaging PET/CT: 03/15/[address] [place] [address] (chest) 02/19/23 Cardiopulmonary Testing PFT's/Six: requested [...] discuss PE (more content not included)... Normal [facility] Telephone (Feed.fmA) -- JEANMARIE FARIA ([id number]) 1965 F Date Time Provider Department 03/08/23 SALEEM FITCH During your visit today, we recorded the following information about you: Toney Bailon LPN 03/08/2023 2:57 PM Signed I notified Carla with Dr. Gongora's office, cardiology, that Jeanmarie will be scheduled for a bronchoscopy with pulmonary stent placement with Dr. Foss, Gong physical damage appraiser, and will need cardiac clearance. I provided [...] Status:Closed by TONEY BAILON on 03/08/23 Normal [facility] Orders Onlyon 03-08-2023 Orders Only [id number] Cyndee Faria 1965 F Date Provider Department Center 03/08/2023 383-BETITO FOSS [facility] [place] Family History Problem Relation Age of Onset Heart failure Mother Diabetes Mother Other Mother Hypertension Mother Family Status - Relation Status Age at Mother Normal [facility] 29on 03-03-2023 29 Addendum created 03/19 1633 by Rajesh Toussaint DO Order list changed Normal [facility] Anesthesiaon 03-03-2023 Anesthesia [id number] Cyndee Faria 1965 F Date Provider Department Center 03/03/2023 [place]9-ALICIA OLIVEROS [facility] OR [facility] Medical Family History Problem Relation Age of Onset Heart failure Mother Diabetes Mother Other Mother Hypertension Mother Family Status - Relation Status Age at Mother Normal [facility] HISTOLOGY - TISSUE EXAMon LAB AP CASE REPORT Normal [facility] Comment on above: Result Comment: Surg ical Pathology Case: [id number] Authorizing Provider: Bettio Foss MD Collected: 03/03/2023 1426 Ordering Location: [facility] Main Operating Room Received: 03/03/20232041 Pathologist: Dorothea Saunders MD Specimen: Trachea/Tracheal, tracheal mass bx Performed By: #### L [id number] ####[facility] (BEBlockTrail)[address] [place] [address] LAB AP CLINICAL INFORMATION Order Diagnoses Normal [facility] Comment on above: Result Comment: R59. 0 - Mediastinal adenopathy [ICD-10-CM] Performed By: #### L [id number] ####[facility] (BEAKER)[address] [facility] [place] [address] LAB AP GROSS DESCRIPTION [facility] Comment on above: Result Comment: A. T rachea/Tracheal. Part A is received in formalin labeled Jeanmarie Giana and tracheal mass bx. It consists of 4 pieces of ortiz-pink, irregular soft tissue measuring 0.8 x 0.5 x 0.2 cm in aggregate. The specimen is submitted in toto in 1 cassette. Balwinder Lerner, Pathologists' Cosmetic Account Coordinator Performed By: #### L [id number] ####[facility] ([facility])[address] [place] [address] LAB AP MICROSCOPIC DESCRIPTION Microscopic examination performed. [facility] Comment on above: Performed By: #### L [id number] ####[facility] ([facility])[address] [facility] [place] [address] LAB AP REPORT FINAL DIAGNOSIS NARRATIVE [facility] Comment on above: Result Comment: A. T divya mass, biopsy: - Fragments of benign respiratory-type mucosa. - No evidence of carcinoma. Performed By: #### L [id number] ####[facility] ([facility])[address] [place] [address] [facility] 03-03-2023 ------ -- Attestation signed by Betito Foss MD at 03/03/2023 1:34 PM Re-explained the procedure to the patient along with the associated risk of pneumothorax, bleeding, hypoxia, and respiratory failure. Patient is agreeable and will proceed with the scheduled bronchoscopy and EBUS TBNA Betito Foss MD Interventional Pulmonary Medicine Pulmonary and Critical Care Medicine [facility] Physicians -- Pulmonology Progress Patient : Jeanmarie [...] last few weeks so she went to [place] [facility] last week, CT scan obtained which [...] Diagnosis Date COPD (chronic obstructive pulmonary disease) ([facility]) Coronary artery disease Diverticulosis GERD (gastroesophageal reflux disease) History of transfusion Hyperlipidemia Hypertension Irritable bowel syndrome Mediastinal mass Myocardial infarction ([facility]) 11/2021 Spastic colon No Known Allergies Social [...] Onset Heart failure Mother Diabetes Mother Other ([place]) Mother Hypertension Mother Outpatient Medications: (Not in [...] for: GBMAB (more content not included)... Normal [facility] NON-FOUNTAIN WAITRESS/WAITER CYTOLOGY - CELLULAR EXAMon 03-03-2023 LAB AP ADDENDUM 1 Normal [facility] Comment on above: Result Comment: This case ([id number]) was sent to [facility] for the [employer] xT tumor panel. Findings were as follows: Somatic: Potentially Actionable KRAS: G12C Somatic: Biologically Relevant PTPRD: S497* GATA6: R76fs TP53: R248W B2M: S40* STAG2: K92* Germline: Pathogenic/Likely Pathogenic No matched normal sample was received, therefore germline sequencing was not performed. Pertinent Negatives EGFR, BRAF, ALK, ROS1, RET, MET, ERBB2 Immunotherapy Markers Tumor Mutational [place] (TMB): 13.2 m/MB Microsatellite Instability Status (MSI): Stable PD-L1 22C3 IHC: Too few tumor cells present Comment: See separate [employer] xT report for a complete description with interpretive content and potential clinical trials. Addendum electronically signed by Jie Nolan MD on 05/03/2023 at 10:46 AM Performed By: #### L [id number] ####[facility] (BEAKER)[address] [place] [address] LAB AP ASR DISCLAIMER The interpretation of [...] Clinical Laboratory Improvement Amendments of 1998. Normal [facility] Comment on above: Performed By: #### L [id number] ####[facility] (BEAKER)[address] [place] [address] LAB AP CASE REPORT Normal [facility] Comment on above: Result Comment: Non- gynecologic Cytology Case: [id number] Authorizing Provider: Betito Foss MD Collected: 03/03/2023 1352 Ordering Location: [facility] Main Operating Room Received: 03/03/2023 1434 Pathologist: Jie Nolan MD Specimen: Trachea/Tracheal, tracheal mass FNA Performed By: #### L [id number] ####[facility] ([facility] [facility] [place] [address] LAB AP CLINICAL INFORMATION Mediastinal mass adjacent/abutting the superior margin of the left mainstem bronchus, anterior margin of the aorta, and anterior esophagus (3 cm), COPD, tobacco use Normal [facility] Comment on above: Performed By: #### L [id number] ####[facility] ([facility])[address] [place] [address] LAB AP DIAGNOSIS COMMENT Normal [facility] Comment on above: Result Comment: Immu nohistochemistry with controls performed. Lesional cells positive for CK5/6. Focal weak positivity with p63 is identified. In a background of abundant necrosis scantly to moderately cellular are scattered malignant tumor cell clusters and single malignant cells identified. Contact molecular pathology for requests for ancillary molecular testing. See also concurrent biopsy, [id number]. Performed By: #### L [id number] ####[facility] ([facility])[address] [place] [address] LAB AP GROSS DESCRIPTION A. 2 air-dried slides, 2 alcohol-fixed slides, 30 mL CytoLyt with hazy, red fluid and red/white particles Normal [facility] Comment on above: Performed By: #### L [id number] ####[facility] ([facility])[address] [place] [address] LAB AP INTRAOPERATIVE CONSULTATION Normal [facility] Comment on above: Result Comment: A. T [...] material submitted.* Performed By: #### L [id number] ####[facility] ([facility])[address] [place] [address] LAB AP MICROSCOPIC DESCRIPTION Satisfactory for evaluation. Examination of the prepared smears and cell block reveals tumor cells arranged in aggregates and as single cells with dense cytoplasm, enlarged round to oval nuclei, irregular chromatin, and prominent nucleoli in a background of abundant necrosis, benign bronchial cells, and blood. [facility] Comment on above: Performed By: #### L [id number] ####[facility] ([facility])[address] [place] [address] LAB AP REPORT FINAL DIAGNOSIS NARRATIVE [facility] Comment on above: Result Comment: A. T divya mass, EBUS-guided fine needle aspiration: - Most consistent with squamous cell carcinoma (see microscopic description and comment). Performed By: #### L [id number] ####[facility] ([facility])[address] [place] [address] POCT GLUCOSE METER UNSOLICIT ED RESULTSon 03-03-2023 Glucose [Mass/Vol] 120 mg/dL High 70-105 [facility] Comment on above: Order Comment: Waive d Testing in the ED is performed under the ED CLIA certificate #[id number]. 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 Do not wear perfume, make-up, nail estonian, or lotions on the day of your [...] need to make any changes, please call [phone]. Notify your surgeon if you develop any illness such as a cold, cough, fever, sore throat or vomiting between now and your surgery. Thank you for entrusting us with your care. [facility] Surgical Services Team Normal [facility] Prep for Procedureon 023 Prep for Procedure [id number] Cyndee Faria 1965 F Date Provider Department Center 02/27/2023 BETITO BALBUENA [facility] Family History Problem Relation Age of Onset Heart failure Mother Diabetes Mother Other Mother Hypertension Mother Family Status - Relation Status Age at Mother Normal [facility] Orders Onlyon 02-24-2023 Orders Only [id number] [place] 1965 F Date Provider Department Center 02/24/2023 JadeISAACBETITO DUNBAR [facility] Family History Problem Relation Age of Onset Heart failure Mother Diabetes Mother Other Mother Hypertension Mother Family Status - Relation Status Age at Mother Normal [facility] Activated partial thrombopla stin time (aPTT) in platelet poor plasma by coagulation aOrdered By: Teo Gongora on 12-30-2022 aPTT Coag (PPP) [Time] 35.6 s 25.1-36.5 [facility] Basophils Auto (Bld) [#/Vol] Ordered By: Teo Gongora on 12-30-2022 Basophils (Bld) [#/Vol] 0.1 10*3/uL 0.0-0.2 [facility] Basophils/100 WBC Auto (Bld) Ordered By: Teo Gongora on 12-30-2022 Basophils/100 WBC (Bld) 0.9 % . [facility] Blood Urea Nitrogenon 2022 Urea nitrogen [Mass/Vol] 13 mg/dL Normal 7-25 [facility] Comment on above: Performed By: #### P P, CREAT, HCGQUAL, CBC, LYTES, BUN, LIPID #### [address] Carbon dioxide, total [Moles /volume] in Serum or PlasmaOrdered By: Teo Gongora on 12-30-2022 CO2 [Moles/Vol] 22.7 mmol/L 21.0-31.0 [facility] Chloride [Moles/volume] in S mony or PlasmaOrdered By: Teo Gongora on 12-30-2022 Chloride [Moles/Vol] 106 mmol/L 98-107 [facility] Cholesterol [Mass/volume] in Serum or PlasmaOrdered By: Teo Gongora on 12-30-2022 Cholesterol [Mass/Vol] 121 mg/dL 140-200 [facility] Comment on above: Chol less than 200 m g/dl low riskChol 201-239 mg/dl borderline riskChol 240 mg/dl and greater high risk Cholesterol in LDL Calc [Mas s/Vol]Ordered By: Teo Gongora on 12-30-2022 Cholesterol in LDL [Mass/Vol] 59 mg/dL 0-100 [facility] Comment on above: LDL ATP III CLASSIFI CATIONLDL less than 100 mg/dL OptimalLDL 100-129 mg/dL Near or above optimalLDL 130-159 mg/dL Borderline highLDL 160-189 mg/dL HighLDL greater than 189 mg/dL Very high Cholesterol in VLDL Calc [Ma ss/Vol]Ordered By: Teo Gongora on 12-30-2022 Cholesterol in VLDL [Mass/Vol] 26 mg/dL [facility] Choriogonadotropin.beta subu nit [Units/volume] in Serum or PlasmaOrdered By: Teo Gongora on 12-30-2022 HCG.beta subunit Qn Negative [facility] Coagulation Profileon 2022 aPTT Coag (Bld) [Time] 35.6 s Normal 25.1-36.5 [facility] Comment on above: Result Comment: PERF ORMED BY: [place] [address] PATHOLOGIST CHICKEN VACCINATOR EUSEBIO DOWELL M.D. Performed By: #### P P, CREAT, HCGQUAL, CBC, LYTES, BUN, LIPID #### [facility] [address] [place] [address] INR Coag (PPP) [Relative time] 1.1 {INR} Normal [facility] Comment on above: Result Comment: INR [...] CREAT, HCGQUAL, CBC, LYTES, BUN, LIPID #### [facility] [address] [place] [address] [place] PT Coag (PPP) [Time] 12.2 s Normal 9.0-12.9 [facility] Comment on above: Performed By: #### P P, CREAT, HCGQUAL, CBC, LYTES, BUN, LIPID #### [address] Complete Blood Count Auto Di ffon 12-30-2022 Basophils (Bld) [#/Vol] 0.1 10*3/uL Normal 0.0-0.2 [facility] Comment on above: Result Comment: PERF ORMED BY: [place] [address] PATHOLOGIST CHICKEN VACCINATOR EUSEBIO DOWELL M.D. Performed By: #### P P, CREAT, HCGQUAL, CBC, LYTES, BUN, LIPID #### [address] Basophils/100 WBC (Bld) 0.9 % Normal . [facility] Comment on above: Performed By: #### P P, CREAT, HCGQUAL, CBC, LYTES, BUN, LIPID #### [address] Eosinophils (Bld) [#/Vol] 0.1 10*3/uL Normal 0.0-0.45 [facility] Comment on above: Performed By: #### P P, CREAT, HCGQUAL, CBC, LYTES, BUN, LIPID #### [address] Eosinophils/100 WBC (Bld) 1.0 % Normal . [facility] Comment on above: Performed By: #### P P, CREAT, HCGQUAL, CBC, LYTES, BUN, LIPID #### [address] Erythrocyte distribution width (RBC) [Ratio] 15.2 % Normal 11.9-15.3 [facility] Comment on above: Performed By: #### P P, CREAT, HCGQUAL, CBC, LYTES, BUN, LIPID #### [address] Hematocrit (Bld) [Volume fraction] 40.6 % Normal 34.0-46.4 [facility] Comment on above: Performed By: #### P P, CREAT, HCGQUAL, CBC, LYTES, BUN, LIPID #### [address] Hemoglobin (Bld) [Mass/Vol] 13.6 g/dL Normal 11.8-15.4 [facility] Comment on above: Performed By: #### P P, CREAT, HCGQUAL, CBC, LYTES, BUN, LIPID #### [address] Lymphocytes (Bld) [#/Vol] 3.5 10*3/uL Normal 1.00-4.8 [facility] Comment on above: Performed By: #### P P, CREAT, HCGQUAL, CBC, LYTES, BUN, LIPID #### [address] Lymphocytes/100 WBC (Bld) 27.2 % Normal . [facility] Comment on above: Performed By: #### P P, CREAT, HCGQUAL, CBC, LYTES, BUN, LIPID #### [address] MCH (RBC) [Entitic mass] 30.0 pg Normal 24.7-34.3 [facility] Comment on above: Performed By: #### P P, CREAT, HCGQUAL, CBC, LYTES, BUN, LIPID #### [address] MCV (RBC) [Entitic vol] 89.6 fL Normal 80-100 [facility] Comment on above: Performed By: #### P P, CREAT, HCGQUAL, CBC, LYTES, BUN, LIPID #### [address] Mean Corpuscular HGB Conc 33.4 g/dL Normal 32.0-35.0 [facility] Comment on above: Performed By: #### P P, CREAT, HCGQUAL, CBC, LYTES, BUN, LIPID #### [place] [address] [place] Monocytes (Bld) [#/Vol] 1.3 10*3/uL High 0.0-0.8 [facility] Comment on above: Performed By: #### P P, CREAT, HCGQUAL, CBC, LYTES, BUN, LIPID #### [place] [address] [place] Monocytes/100 WBC (Bld) 10.1 % Normal . [facility] Comment on above: Performed By: #### P P, CREAT, HCGQUAL, CBC, LYTES, BUN, LIPID #### [address] Neutrophils (Bld) [#/Vol] 7.8 10*3/uL High 1.8-7.7 [facility] Comment on above: Performed By: #### P P, CREAT, HCGQUAL, CBC, LYTES, BUN, LIPID #### [address] Neutrophils/100 WBC (Bld) 60.8 % Normal . [facility] Comment on above: Performed By: #### P P, CREAT, HCGQUAL, CBC, LYTES, BUN, LIPID #### [address] NRBC% 0.2 /100{WBC} Normal 0-0.5 [facility] Comment on above: Performed By: #### P P, CREAT, HCGQUAL, CBC, LYTES, BUN, LIPID #### [address] Platelet mean volume (Bld) [Entitic vol] 8.2 fL Normal 6.3-10.7 [facility] Comment on above: Performed By: #### P P, CREAT, HCGQUAL, CBC, LYTES, BUN, LIPID #### [place] [address] [place] Platelets (Bld) [#/Vol] 338 10*3/uL Normal 150-450 [facility] Comment on above: Performed By: #### P P, CREAT, HCGQUAL, CBC, LYTES, BUN, LIPID #### [address] RBC (Bld) [#/Vol] 4.53 10*6/uL Normal 3.60-5.00 [facility] Comment on above: Performed By: #### P P, CREAT, HCGQUAL, CBC, LYTES, BUN, LIPID #### [address] WBC (Bld) [#/Vol] 12.8 10*3/uL High 3.8-11.6 [facility] Comment on above: Performed By: #### P P, CREAT, HCGQUAL, CBC, LYTES, BUN, LIPID #### [address] Creatinineon 12-30-2022 Creatinine [Mass/Vol] 0.69 mg/dL Normal 0.60-1.20 [facility] Comment on above: Performed By: #### P P, CREAT, HCGQUAL, CBC, LYTES, BUN, LIPID #### [address] GFR/1.73 sq M.predicted MDRD (S/P/Bld) [Vol rate/Area] mL/min/{1.73_m2} Normal [facility] Comment on above: Performed By: #### P P, CREAT, HCGQUAL, CBC, LYTES, BUN, LIPID #### [address] Creatinine [Mass/volume] in Serum or PlasmaOrdered By: Teo Gongora on 12-30-2022 Creatinine [Mass/Vol] 0.69 mg/dL 0.60-1.20 [facility] ECG 12 lead ECGon 12-30-2022 ECG 12 lead ECG [facility] Main [place] [address] [place] [address] Electrocardiograph Report Signed Patient: Jeanmarie Faria MR#: [id number] 49 : 1965 Acct:[id number] Age/Sex: 57 / F ADM Date: 12/30/22 Loc: CL Room: Type: [facility] Attending Dr: Teo Gongora DO Ordering Provider: Teo Gongora DO Date of Service: 12/30/2201/18/1056 ECG/ECG 12 lead ECG: [facility] Copies to: Test Reason : Blood Pressure [...] change was found Confirmed by CHINO JERRY [facility], [place] ([id number]) on 01/01/2023 12:37:24 AM Referred By: Electronically Signed By:BOLIVAR MAGANA MD [facility] Transcribed By: MUS Signed By Bolivar Magana MD, FACC 01/01/[address] [facility] Electrolyteson 12-30-2022 Anion gap [Moles/Vol] 12.3 mmol/L Normal 6.0-15.0 [facility] Comment on above: Performed By: #### P P, CREAT, HCGQUAL, CBC, LYTES, BUN, LIPID #### [facility] [address] [place] [address] [place] Chloride [Moles/Vol] 106 mmol/L Normal 98-107 [facility] Comment on above: Performed By: #### P P, CREAT, HCGQUAL, CBC, LYTES, BUN, LIPID #### [facility] [address] [place] [address] [place] CO2 [Moles/Vol] 22.7 mmol/L Normal 21.0-31.0 [facility] Comment on above: Performed By: #### P P, CREAT, HCGQUAL, CBC, LYTES, BUN, LIPID #### [facility] [address] [place] [address] [place] Potassium [Moles/Vol] 4.0 mmol/L Normal 3.5-5.1 [facility] Comment on above: Performed By: #### P P, CREAT, HCGQUAL, CBC, LYTES, BUN, LIPID #### [address] Sodium [Moles/Vol] 137 mmol/L Normal 136-145 [facility] Comment on above: Performed By: #### P P, CREAT, HCGQUAL, CBC, LYTES, BUN, LIPID #### [address] Eosinophils Auto (Bld) [#/Vo l]Ordered By: Teo Gongora on 12-30-2022 Eosinophils (Bld) [#/Vol] 0.1 10*3/uL 0.0-0.45 [facility] Eosinophils/100 WBC Auto (Bl d)Ordered By: Teo Gongora on 12-30-2022 Eosinophils/100 WBC (Bld) 1.0 % . [facility] Erythrocyte distribution wid th Auto (RBC) [Ratio]Ordered By: Teo Gongora on 12-30-2022 Erythrocyte distribution width (RBC) [Ratio] 15.2 % 11.9-15.3 [facility] HCG,Qualitative Serumon HCG,Qualitative Serum Negative Normal [facility] Comment on above: Result Comment: PERF ORMED BY: [place] [address] PATHOLOGIST CHICKEN VACCINATOR EUSEBIO DOWELL M.D. Performed By: #### P P, CREAT, HCGQUAL, CBC, LYTES, BUN, LIPID #### [address] Hematocrit Auto (Bld) [Volum e fraction]Ordered By: Teo Gongora on 12-30-2022 Hematocrit (Bld) [Volume fraction] 40.6 % 34.0-46.4 [facility] Hemoglobin [Mass/volume] in BloodOrdered By: Teo Gongora on 12-30-2022 Hemoglobin (Bld) [Mass/Vol] 13.6 g/dL 11.8-15.4 [facility] Laboratory - Chemistry and C hemistry - challengeon 12-30-2022 Cholesterol [Mass/Vol] 121\S\121 below low threshold 140-200 -[facility] [employer]FO[employer] 250 DO Work Phone: Comment on above: Chol less than 200 m g/dl low risk Chol 201-239 mg/dl borderline risk Chol 240 mg/dl and greater high risk Cholesterol in LDL [Mass/Vol] 59\S\59 Normal 0-100 -[facility] 250 DO Work Phone: Comment on above: LDL ATP III CLASSIFI CATION LDL less than 100 mg/dL Optimal LDL 100-129 mg/dL Near or above optimal LDL 130-159 mg/dL Borderline high LDL 160-189 mg/dL High LDL greater than 189 mg/dL Very high Laboratory - CoagulationOrde red By: Teo Gongora on 12-30-2022 PT Coag (PPP) [Time] 12.2 s 9.0-12.9 [facility] Leukocytes [#/volume] correc roney for nucleated erythrocytes in Blood by Automated counOrdered By: Teo Gongora on 12-30-2022 WBC corrected for nucl RBC Auto (Bld) [#/Vol] 12.8 10*3/uL 3.8-11.6 [facility] Lipid Panelon 12-30-2022 Cholesterol [Mass/Vol] 121 mg/dL Low 140-200 [facility] Comment on above: Result Comment: Chol less than 200 mg/dl low risk Chol 201-239 mg/dl borderline risk Chol 240 mg/dl and greater high risk Performed By: #### P P, CREAT, HCGQUAL, CBC, LYTES, BUN, LIPID #### [facility] [address] Cholesterol in HDL [Mass/Vol] 35 mg/dL Normal 35-85 [facility] Comment on above: Result Comment: HDL CHOL ATP-III CLASSIFICATION Cardiovascular Risk HDL > or equal to 60 mg/dL LOW HDL < 40 mg/dL HIGH Performed By: #### P P, CREAT, HCGQUAL, CBC, LYTES, BUN, LIPID #### [facility] [address] [place] [address] Cholesterol.total/Chol esterol in HDL [Mass ratio] 3.5 {ratio} Normal <5.0 [facility] Comment on above: Performed By: #### P P, CREAT, HCGQUAL, CBC, LYTES, BUN, LIPID #### [facility] [address] LDL Cholesterol,Calculated 59 mg/dL Normal 0-100 [facility] Comment on above: Result Comment: LDL ATP III CLASSIFICATION LDL less than 100 mg/dL Optimal LDL 100-129 mg/dL Near or above optimal LDL 130-159 mg/dL Borderline high LDL 160-189 mg/dL High LDL greater than 189 mg/dL Very high Performed By: #### P P, CREAT, HCGQUAL, CBC, LYTES, BUN, LIPID #### [facility] [address] Triglyceride w/Reflex 133 mg/dL Normal 0-149 [facility] Comment on above: Result Comment: TRIG ATP III CLASSIFICATION TRIG less than 150 mg/dL Normal TRIG 150-199 mg/dL Borderline high TRIG 200-500 mg/dL High TRIG greater than 500 mg/dL Very high Standard traceable to the Center for Disease Conrtrol and Prevention (CDC) test method. Performed By: #### P P, CREAT, HCGQUAL, CBC, LYTES, BUN, LIPID #### [facility] [address] VLDL CHOLESTEROL 26 mg/dL Normal [facility] Comment on above: Performed By: #### P P, CREAT, HCGQUAL, CBC, LYTES, BUN, LIPID #### [facility] [address] Lymphocytes Auto (Bld) [#/Vo l]Ordered By: Teo Gongora on 12-30-2022 Lymphocytes (Bld) [#/Vol] 3.5 10*3/uL 1.00-4.8 [facility] Lymphocytes/100 WBC Auto (Bl d)Ordered By: Teo Gongora on 12-30-2022 Lymphocytes/100 WBC (Bld) 27.2 % . [facility] MCH Auto (RBC) [Entitic mass ]Ordered By: Teo Gongora on 12-30-2022 MCH (RBC) [Entitic mass] 30.0 pg 24.7-34.3 [facility] MCHC Auto (RBC) [Mass/Vol]Or dered By: Teo Gongora on 12-30-2022 MCHC (RBC) [Mass/Vol] 33.4 g/dL 32.0-35.0 [facility] MCV Auto (RBC) [Entitic vol] Ordered By: Teo Gongora on 12-30-2022 MCV (RBC) [Entitic vol] 89.6 fL 80-100 [facility] Monocytes Auto (Bld) [#/Vol] Ordered By: Teo Gongora on 12-30-2022 Monocytes (Bld) [#/Vol] 1.3 10*3/uL 0.0-0.8 [facility] Monocytes/100 WBC Auto (Bld) Ordered By: Teo Gongora on 12-30-2022 Monocytes/100 WBC (Bld) 10.1 % . [facility] Neutrophils Auto (Bld) [#/Vo l]Ordered By: Teo Gongora on 12-30-2022 Neutrophils (Bld) [#/Vol] 7.8 10*3/uL 1.8-7.7 [facility] Neutrophils/100 WBC Auto (Bl d)Ordered By: Teo Gongora on 12-30-2022 Neutrophils/100 WBC (Bld) 60.8 % . [facility] No Panel InformationOrdered By: Teo Gongora on 12-30-2022 Estimated GFR (CKD-EPI) > 60.0 mL/Min [facility] Creatinine Clearance (Chem N/A [facility] No Panel Informationon 12-30 60.8\S\60.8 Normal . -[facility] [employer] 250 DO Work Phone: 8.2\S\8.2 Normal 6.3-10.7 -[facility] [employer] 250 DO Work Phone: 338\S\338 Normal 150-450 -[facility] [employer] 250 DO Work Phone: 15.2\S\15.2 Normal 11.9-15.3 [facility] Heart-Sandu edgar 250 DO Work Phone: [phone] 33.4\S\33.4 Normal 32.0-35.0 -[facility] Heart-Sandu edgar 250 DO Work Phone: [phone] 30.0\S\30.0 Normal 24.7-34.3 [facility] Heart-Sandu edgar 250 DO Work Phone: [phone] 7.8\S\7.8 above high threshold 1.8-7.7 [facility]-Sandu edgar 250 DO Work Phone: [phone] 0.2\S\0.2 Normal 0-0.5 [facility]-Sandu edgar 250 DO Work Phone: [phone] 0.9\S\0.9 Normal . [facility]u edgar 250 DO Work Phone: [phone] 1.0\S\1.0 Normal . [facility]u edgar 250 DO Work Phone: [phone] 10.1\S\10.1 Normal . [facility]-Sandu edgar 250 DO Work Phone: [phone] 27.2\S\27.2 Normal . [facility]-Sandu edgar 250 DO Work Phone: [phone] 0.1\S\0.1 Normal 0.0-0.45 [facility] Heart-Heleneu edgar 250 DO Work Phone: Comment on above: PERFORMED BY:[facility] [place] [id number] MEDICAL DIRECTOREUSEBIO DOWELL M.D. 1.3\S\1.3 above high threshold 0.0-0.8 -[facility] Heart-Sandu edgar 250 DO Work Phone: 3.5\S\3.5 Normal <5.0 -[facility] Heart-Sandu edgar 250 DO Work Phone: [phone] 89.6\S\89.6 Normal 80-100 [facility] edgar 250 DO Work Phone: 40.6\S\40.6 Normal 34.0-46.4 [facility] 250 DO Work Phone: 13.6\S\13.6 Normal 11.8-15.4 [facility] 250 DO Work Phone: 4.53\S\4.53 Normal 3.60-5.00 [facility] 250 DO Work Phone: 12.8\S\12.8 above high threshold 3.8-11.6 [facility] 250 DO Work Phone: 35.6\S\35.6 Normal 25.1-36.5 [facility] 250 DO Work Phone: Comment on above: PERFORMED BY:[facility] [place] [place], [place] [id number] MEDICAL DIRECTOREUSEBIO DOWELL M.D. 1.1\S\1.1 Normal [facility] 250 DO Work Phone: Comment on above: [...] valves: 3 - 4.5 12.2\S\12.2 Normal 9.0-12.9 [facility] 250 DO Work Phone: 12.3\S\12.3 Normal 6.0-15.0 [facility] 250 DO Work Phone: 22.7\S\22.7 Normal 21.0-31.0 [facility] edgar 250 DO Work Phone: 106\S\106 Normal 98-107 [facility] Roshan hernández 250 DO Work Phone: 4.0\S\4.0 Normal 3.5-5.1 [facility] Roshan hernández 250 DO Work Phone: 137\S\137 Normal 136-145 [facility] Roshan hernández 250 DO Work Phone: 13\S\13 Normal 7-25 [facility] Roshan hernández 250 DO Work Phone: > 60.0 Normal [facility] Roshan hernández 250 DO Work Phone: 0.69\S\0.69 Normal 0.60-1.20 [facility] Roshan hernández 250 DO Work Phone: 26\S\26 Normal [facility] Roshan hernández 250 DO Work Phone: 133\S\133 Normal 0-149 [facility] Roshan hernández 250 DO Work Phone: [phone] Comment on above: TRIG ATP III CLASSIF ICATION TRIG less than 150 mg/dL Normal TRIG 150-199 mg/dL Borderline high TRIG 200-500 mg/dL High TRIG greater than 500 mg/dL Very high Standard traceable to the Center for Disease Conrtrol and Prevention (CDC) test method. 35\S\35 Normal 35-85 [facility] Roshan hernández 250 DO Work Phone: Comment on above: HDL CHOL ATP-III CLA SSIFICATION Cardiovascular Risk HDL > or equal to 60 mg/dL LOW HDL < 40 mg/dL HIGH Negative Normal [facility] Roshan hernández 250 DO Work Phone: Comment on above: PERFORMED BY:[place] [address] [place] [place], [place] [id number] MEDICAL DIRECTOREUSEBIO DOWELL M.D. Nucleated erythrocytes [Pres ence] in Blood by Automated countOrdered By: Teo Gongora on 12-30-2022 Nucleated RBC Auto Ql (Bld) 0.2 /100{WBC} 0-0.5 [facility] Platelet mean volume Auto (B ld) [Entitic vol]Ordered By: Teo Gongora on 12-30-2022 Platelet mean volume (Bld) [Entitic vol] 8.2 fL 6.3-10.7 [facility] Platelet poor plasma interna tional normalized ratio (INR) by coagulation assay (relatOrdered By: Teo Gongora on 12-30-2022 INR Coag (PPP) [Relative time] 1.1 {INR} [facility] Comment on above: INR Therapeutic Rang [...] 12-30-2022 Platelets (Bld) [#/Vol] 338 10*3/uL 150-450 [facility] Potassium [Moles/volume] in Serum or PlasmaOrdered By: Teo Gongora on 12-30-2022 Potassium [Moles/Vol] 4.0 mmol/L 3.5-5.1 [facility] RBC Auto (Bld) [#/Vol]Ordere d By: Teo Gongora on 12-30-2022 RBC (Bld) [#/Vol] 4.53 10*6/uL 3.60-5.00 [facility] Serum or plasma anion gap de terminationOrdered By: Teo Gongora on 12-30-2022 Anion gap [Moles/Vol] 12.3 mmol/L 6.0-15.0 [facility] Serum or plasma high density lipoprotein (HDL) cholesterol measurementOrdered By: Teo Gongora on 12-30-2022 Cholesterol in HDL [Mass/Vol] 35 mg/dL 35-85 [facility] Comment on above: HDL CHOL ATP-III CLA SSIFICATION Cardiovascular RiskHDL > or equal to 60 mg/dL LOWHDL < 40 mg/dL HIGH Serum or plasma total choles terol/high density lipoprotein (HDL) cholesterol mass ratOrdered By: Teo Gongora on 12-30-2022 Cholesterol.total/Chol esterol in HDL [Mass ratio] 3.5 {ratio} <5.0 [facility] Sodium [Moles/volume] in Ser um or PlasmaOrdered By: Teo Gongora on 12-30-2022 Sodium [Moles/Vol] 137 mmol/L 136-145 [facility] Triglyceride [Mass/volume] i n Serum or PlasmaOrdered By: Teo Gongora on 12-30-2022 Triglyceride [Mass/Vol] 133 mg/dL 0-149 [facility] Comment on above: TRIG ATP III CLASSIF ICATIONTRIG less than 150 mg/dL NormalTRIG 150-199 mg/dL Borderline highTRIG 200-500 mg/dL High TRIG greater than 500 mg/dL Very highStandard traceable to the Center for Disease Conrtrol and Prevention (CDC) test method. Urea nitrogen [Mass/volume] in Serum or PlasmaOrdered By: Teo Gongora on 12-30-2022 Urea nitrogen [Mass/Vol] 13 mg/dL 7-25 [facility] WBC Auto (Bld) [#/Vol]Ordere d By: Teo Gongora on 12-30-2022 WBC (Bld) [#/Vol] 12.8 10*3/uL 3.8-11.6 [facility] Office Visit (Cardiology)on 12-28-2022 Follow-up visit Diagnoses/Problems [...] She has a history of non-ST elevation [place] in November 2021 with two-vessel revascularization involving [...] Recorded: 28Dec2022 11:26AM Heart Rate68, L Radial Mowudfdg204, LUE, Sitting Krogudzrp58, LUE, Sitting Height5 ft 4 in Ufhroh197 lb BMI Rzkrodxbvb26.01 kg/m2 BSA Calculated1.82 Tobacco Usea) Yes Patient [...] Screening.on 023 Adult depression screening assessment No -[facility]-Sandu edgar 250 DO Work Phone: Tobacco use status [facility] a) Yes MP-[facility]-Sandu edgar 250 DO Work Phone: Tobacco Screening. Yes [facility]-Sandu edgar 250 DO Work Phone: XR [...] ABELARDO FLANNERY Date: 2022-08-11 11:03 Normal [facility] CARDIAC DANETTE 3-6on 2 CK [Catalytic activity/Vol] 64 U/L Normal 26-192 [facility] Comment on above: Performed By: #### C MREP ####[facility] [address] [place] [address]Dr. Jozef Marrero CK.MB [Mass/Vol] 0.84 ng/mL Normal <=3.60 [facility] Comment on above: Performed By: #### C MREP ####[facility] [address] [place] [address]Dr. Jozef Marrero HSTROP 19.7 pg/mL Normal 4.0-51.3 [facility] Comment on above: Result Comment: CUT- OFF POINTS HAVE BEEN ESTABLISHED BASED ON THE FOURTH UNIVERSAL DEFINITIONS OF MYOCARDIAL INFARCTION. THE UPPER REFERENCE LIMIT (URL) OF TROPONIN, DEFINED THE 99TH PERCENTILE OF cTnI DISTRIBUTION IN A REFERENCE POPULATION, HAS BEEN CONFIRMED THE DECISION THRESHOLD FOR KS DIAGNOSIS. Performed By: #### C MREP ####[facility] [address] [place] [id number] Marrero CARDIAC DANETTE ADMITon 022 CK [Catalytic activity/Vol] 63 U/L Normal 26-192 [facility] Comment on above: Performed By: #### B ROWAN, CMADM ####[facility] [address] [place] [id number] Marrero CK.MB [Mass/Vol] 0.78 ng/mL Normal <=3.60 [facility] Comment on above: Performed By: #### KAILYN Everett MP ####[facility] [address] [place] [address]Dr. Jozef Marrero HSTROP 19.6 pg/mL Normal 4.0-51.3 [facility] Comment on above: Result Comment: CUT- OFF POINTS HAVE BEEN ESTABLISHED BASED ON THE FOURTH UNIVERSAL DEFINITIONS OF MYOCARDIAL INFARCTION. THE UPPER REFERENCE LIMIT (URL) OF TROPONIN, DEFINED THE 99TH PERCENTILE OF cTnI DISTRIBUTION IN A REFERENCE POPULATION, HAS BEEN CONFIRMED THE DECISION THRESHOLD FOR KS DIAGNOSIS. Performed By: #### KAILYN Everett MP ####[facility] [address] [place] [address]Dr. Jozef Marrero DIANA 19 ng/mL Normal 9-82 [facility] Comment on above: Performed By: #### KAILYN Everett MP ####[facility] [address] [place] [address]Dr. Jozef Marrero CBC W MANUAL DIFFon 06-23-20 22 ATYPICAL LYMPH # Normal [facility] Comment on above: Performed By: #### C JENN #### [facility] [address] [place] [address] [address] Jozef Marrero ATYPICAL LYMPH % Normal [facility] Comment on above: Performed By: #### Bennett BARAJAS #### [facility] [address] [place] [address] [address] Jozef Marrero BAND # 0.0 103/ul Normal 0.0-0.3 [facility] Comment on above: Performed By: #### C JENN #### [facility] [address] [place] [address] [address] Jozef Marrero BAND % 0 % Normal 0-5 [facility] Comment on above: Performed By: #### C JENN #### [facility] [address] [place] [address] Dr. Jozef Marrero BASOM # 0.11 103/ul Critically high 0.00-0.10 [facility] Comment on above: Performed By: #### C JENN #### [facility] [address] [place] [address] Dr. Jozef Marrero BASOM % 1.0 % Normal 0.2-2.0 [facility] Comment on above: Performed By: #### C JENN #### [facility] [address] [place] [address] Dr. Jozef Marrero BLAST # Normal [facility] Comment on above: Performed By: #### C JENN #### [facility] [address] [place] [address] Dr. Jozef Marrero BLAST % Normal [facility] Comment on above: Performed By: #### C JENN #### [facility] [address] [place] [address] Dr. Jozef Marrero CORRECTED WBC Normal 4.0-11.0 [facility] Comment on above: Performed By: #### C JENN #### [facility] [address] [place] [address] Dr. Jozef Marrero EOS # 0.00 103/ul Normal 0.00-0.70 [facility] Comment on above: Performed By: #### C JENN #### [facility] [address] [place] [address] Dr. Jozef Marrero EOS% 0.0 % Critically low 0.9-7.0 [facility] Comment on above: Performed By: #### C JENN #### [facility] [address] [place] [address] Dr. Jozef Marrero HCT 40.1 % Normal 36.0-48.0 [facility] Comment on above: Performed By: #### C JENN #### [facility] [address] [place] [address] Dr. Jozef Marrero HGB 13.7 g/dl Normal 12.0-16.0 [facility] Comment on above: Performed By: #### C JENN #### [facility] [address] [place] [address] Dr. Jozef Marrero LYMPHM # 2.70 103/ul Normal 1.20-3.80 [facility] Comment on above: Performed By: #### C JENN #### [facility] [address] [place] [address] Dr. Jozef Marrero LYMPHM% 25.0 % Normal 20.5-60.0 [facility] Comment on above: Performed By: #### C JENN #### [facility] [address] [place] [address] Dr. Jozef Marrero MCH 30.4 pg Normal 26.7-34.0 [facility] Comment on above: Performed By: #### C JENN #### [facility] [address] [place] [address] Dr. Jozef Marrero MCHC 34.2 g/dl Normal 29.9-35.2 [facility] Comment on above: Performed By: #### C JENN #### [facility] [address] [place] [address] Dr. Jozef Marrero MCV 88.9 fL Normal 81.0-99.0 [facility] Comment on above: Performed By: #### C JENN #### [facility] [address] [place] [address] Dr. Jozef Marrero METAMYELOCYTE # Normal [facility] Comment on above: Performed By: #### C JENN #### [facility] [address] [place] [address] Dr. Jozef Marrero METAMYELOCYTE % Normal [facility] Comment on above: Performed By: #### C JENN #### [facility] [address] [place] [address] Dr. Jozef Marrero MONOM# 0.97 103/ul Critically high 0.30-0.80 [facility] Comment on above: Performed By: #### C JNEN #### [facility] [address] [place] [address] Dr. Jozef Marrero MONOM% 9.0 % Normal 1.7-12.0 [facility] Comment on above: Performed By: #### C JENN #### [facility] [address] [place] [address] Dr. Jozef Marrero MPV 9.9 fL Normal 9.5-13.5 [facility] Comment on above: Performed By: #### C BCJUANITA #### [facility] [address] [place] [address] [address] Jozef Marrero MYELOCYTE # Normal [facility] Comment on above: Performed By: #### C JENN #### [facility] [address] [place] [address] [address] Jozef Marrero MYELOCYTE % Normal [facility] Comment on above: Performed By: #### C JENN #### [facility] [address] [place] [address] [address] Jozef Marrero NRBC Normal [facility] Comment on above: Performed By: #### C JENN #### [facility] [address] [place] [address] Dr. Jozef Marrero PLT 339 103/ul Normal 150-450 [facility] Comment on above: Performed By: #### C JENN #### [facility] [address] [place] [address] Dr. Jozef Marrero RBC 4.51 106/ul Normal 4.20-5.40 [facility] Comment on above: Performed By: #### C JENN #### [facility] [address] [place] [address] Dr. Jozef Marrero RDW 14.6 % Normal 11.0-15.0 [facility] Comment on above: Performed By: #### C JENN #### [facility] [address] [place] [address] Dr. Jozef Marrero SEG # 7.02 103/ul Critically high 1.40-6.50 [facility] Comment on above: Performed By: #### C JENN #### [facility] [address] [place] [address] Dr. Jozef Marrero SEG % 65.0 % Normal 43.0-75.0 [facility] Comment on above: Performed By: #### C JENN #### [facility] [address] [place] [address] [address] Jozef Marrero WBC 10.8 103/ul Normal 4.0-11.0 [facility] Comment on above: Performed By: #### C JENN #### [facility] [address] [place], [place] [address] Dr. Jozef Marrero Covid-19 PCR (CVDTBH)on 05-29 SARS-CoV-2 (COVID-19) RNA NEVA+probe Ql (Unsp spec) Detected Critically abnormal NOT DETECTED [facility] Comment on above: Result Comment: This test is not yet approved or cleared by the [place] FDA. When there are no FDA-approved or cleared tests available, and other criteria are met, FDA can make tests available under an emergency access mechanism called an Emergency Use Authorization (EUA). The EUA for this test is supported by the [place] of Health and Human Service's declaration that [...] used). Performed By: #### C VDTBH #### [facility] [address] [place] [address] [address] Jozef Marrero D-DIMERon 06-23-2022 D-DIMER 0.53 mg/L FEU Normal <=0.59 [facility] Comment on above: Performed By: #### D DIM ####[facility] [address] [place] [id number] Marrero D-DIMER COMMENTS SEE BELOW Normal [facility] Comment on above: Result Comment: Incr [...] generalized hospitalization. Performed By: #### D DIM ####[facility] [address] [place] [id number]. Jozef Marrero PROF CHEM 8 (BAS METB)on Anion gap [Moles/Vol] 12.6 mmol/L Normal [facility] Comment on above: Performed By: #### KAILYN Everett MP ####[facility] [address] [place] [address]Dr. Jozef Marrero Calcium [Mass/Vol] 8.9 mg/dL Normal 8.5-10.1 [facility] Comment on above: Performed By: #### Marguerite DONAHUE, KAILYN ####[facility] M[address]dfz[address] [place], [place] [address]Dr. Jozef Marrero Chloride [Moles/Vol] 104 mmol/L Normal 98-107 [facility] Comment on above: Performed By: #### KAILYN Everett MP ####[facility] [address] [place], [place] [address]Dr. Jozef Marrero CO2 [Moles/Vol] 24.7 mmol/L Normal 21.0-32.0 [facility] Comment on above: Performed By: #### KAILYN Everett MP ####[facility] [address] [place], [place] [address]Dr. Jozef Marrero Creatinine [Mass/Vol] 0.85 mg/dL Normal 0.55-1.02 [facility] Comment on above: Performed By: #### KAILYN Everett MP ####[facility] [address] [place], [place] [address]Dr. Jozef Marrero EGFR-AF MALTESE >60 Normal >=60 [facility] Comment on above: Performed By: #### KAILYN Everett MP ####[facility] Tx[address] [place], [place] [address]Dr. Jozef Marrero EGFR-NON AF MALTESE >60 Normal >=60 [facility] Comment on above: Performed By: #### KAILYN Everett MP ####[facility] Z[address] [place], [place] [address]Dr. Jozef Marrero Glucose [Mass/Vol] 123 mg/dL Critically high 74-106 T [facility] Comment on above: Performed By: #### KAILYN Everett MP ####[facility] [address] [place] [address]Fy. Jozef Marrero Potassium [Moles/Vol] 3.3 mmol/L Critically low 3.5-5.1 [facility] Comment on above: Performed By: #### B ROWAN, CMADM ####[facility] [address] [place], [place] [address]Se. Jozef Marrero Sodium [Moles/Vol] 138 mmol/L Normal 136-145 [facility] Comment on above: Performed By: #### B ROWAN, CMADM ####[facility] [address] [place], [place] [address]Vc. Jozef Marrero Urea nitrogen [Mass/Vol] 19.0 mg/dL Critically high 7.0-18.0 [facility] Comment on above: Performed By: #### B ROWAN, CMADM ####[facility] [address] [place], [place] [address]Cs. Jozef Marrero Urea nitrogen/Creatinine [Mass ratio] 22.4 mg/mg Normal [facility] Comment on above: Performed By: #### B ROWAN, CMADM ####[facility] [address] [place], [place] [address]Vv. Jozef Marrero XR CHEST 1 06-23-2022 XR [...] JAMIE NEGRON Date: 2022-06-23 02:50 Normal [facility] Office Visit (Cardiology)on 05-05-2022 Follow-up visit [...] Weight Tips; Status:Complete - Retrospective Authorization; Done: [id number] Some eating tips that can help you lose weight.; Status:Complete - Retrospective Authorization; Done: [id number] SocHx: Current smoker You need to stop smoking. Though it is not easy, more than half of all adult smokers have quit. We encourage you to write down all the reasons you should quit smoking and set a quit date for yourself. Ask us how we can help. You may also call 8-603-OHRJNOW for free resources and assistance.; Status:Complete - Retrospective Authorization; Done: [id number] Tobacco Use Screening; Status:Complete; Done: [id number] Patient Instructions Please bring all medicines, vitamins, [...] Recorded: 05May2022 11:41AM Heart Rate80, L Radial Afghjvee334, LUE, Sitting Txqydquvi66, LUE, Sitting Height5 ft 4 in Yjyooa036 lb BMI Oqofjhwmgu74.92 kg/m2 BSA Calculated1.74 Tobacco Usea) Yes Patient encouraged to stop using tobacco productsYes Falls Screening (Age 18+)c) Not medically indicated Physical Exam Constitutional: alert and in no acute distress. Neck: neck is supple, symmetric, trachea midline, no masses and no thyromegaly . Pulmonary: no increased work of breathing or signs of respira (more content not included)... Normal [facility] Tobacco Screening.on 022 Fall risk assessment c) Not medically indicated -[facility] Heart-Sandu edgar 250 DO Work Phone: Tobacco use status CP a) Yes -[facility]-Sandu edgar 250 DO Work Phone: Tobacco Screening. Yes [facility] Heart-Sandu edgar 250 DO Work Phone: Cardiovasc [...] Physician: Dr. Brett Gongora DO Diagnosis: [facility] equipment agreement signed. JEANMARIE understands monitor is to be returned on: 02/24/2022 Monitor number [id number] applied. Holter monitor returned and downloaded. Holter monitor printed and placed on Dr. Brett Gongora DO desk to dictate. Diagnosis/Problems Assessed History of syncope (V15.89) (Z87.898) Future Appointments Date/TimeProviderSpecialty Site 05/05/2022 11:20 Brett Reich DOCardiology703 [facility] 2 Madhav 250 DO Signatures Electronically signed by : LEANA Trejo; Feb 25 2022 12:14PM EST (Author) Electronically signed by : Brett Gongora DO; Mar 18 2022 3:39PM EST (Author) Normal [facility] Echocardiogramon 02-22-2022 Echocardiography [facility] dusky [address] [place] [address], [address] [place] [address] TRANSTHORACIC ECHOCARDIOGRAM REPORT Patient Name: JEANMARIE FARIA Reading Physician: [id number] Bolivar Magana MD, [facility] Study Date: 02/22/2022 Referring [id number] BRETT ROLAN Physician: MRN/PID: [id number] PCP: Aris Stewart MD Accession/Order#: [id number] [facility] Location: Date of : 1965 Fellow: Gender: F Nurse: Admit Date: Support Engineer: Fern Cardona RDCS, RVT Height: 162.56 cm CC Report to: Weight: 63.05 kg Study Type: Echocardiogram BSA: 1.68 m2 Blood Pressure: 128 /70 mmHg Diagnosis/ICD: I42.2-Other hypertrophic cardiomyopathy; R06.00-Dyspnea, unspecified Indication: KS and PTCA-11/2021, Tobacco Abuse, Syncope Procedure/CPT: Echo Limited-20480 Study Detail: The following Echo studies were [...] 36.90 cm LVOT Diameter: 2.10 cm (1.8-2.4cm) [id number] Bolivar Magana MD, FACC Electronically signed on 02/24/2022 at 8:25:[address] [facility] Echocardiography Please click on the link to view the study images Normal -[facility] edgar 250 DO Work Phone: MG MAMM SCREEN 3D GIANNI CADon 02-21-2022 MG MAMM SCREEN 3D GIANNI CAD Patient: JEANMARIE FARIA Exam Date: 02/21/2022 : 1965 Gender:F Ordering : DR ARIS STEWART DElbertOElbert Admission #: [id number] Family : Order #: [id number] CLICK HERE TO VIEW EXAM RADIOLOGY REPORT PROCEDURE: MAMMOGRAM SCREENING 3D BILATERAL CAD COMPARISON: None. INDICATIONS: Screening for malignant neoplasm of breast Calculator Name NCI Breast Cancer Risk Assessment Tool 5 Year Breast Cancer Risk 1.90% Lifetime Breast Cancer Risk 13.60% Personal Breast Cancer No Personal Ovarian Cancer No Treatments None Family Cancers None LOCATION: [facility] BREAST COMPOSITION: Scattered areas fibroglandular density. [...] MD on 02/21/2022 at 14:37 Normal [facility] Covid-19 PCR ([facility])on SARS-CoV-2 (COVID-19) RNA NEVA+probe Ql (Unsp spec) Not detected Normal NOT DETECTED [facility] Comment on above: Result Comment: This test is not yet approved or cleared by the [place] FDA. When there are no FDA-approved or cleared tests available, and other criteria are met, FDA can make tests available under an emergency access mechanism called an Emergency Use Authorization (EUA). The EUA for this test is supported by the [place] of Health and Human Service's (HHS's) declaration [...] consistent with SARS-CoV-2. Performed By: #### C [facility]DBRIGHAM [facility] #### [facility] [address] [place], [place] [id number] Dr. Jozef Marrero Office Visit (Cardiology)on 01-25-2022 [...] we can help. You may also call 5-269-LTEF-NOW for free resources and assistance.; Status:Complete - Retrospective Authorization; Done: 25Jan2022 Tobacco Use Screening; Status:Complete; Done: 95Sss7820 Patient Instructions Please bring all medicines, vitamins, [...] 56-year-old female returns following recent non-ST elevation [place], , Discharged December 16, following revascularization of [...] has a history of heart transplantation in [place], and was sent to a [facility] with similar flulike illness and was diagnosed with influenza. Patient remains on appropriate postinfarction guideline directed medical therapies, she still smoking 1/2 pack cigarettes a day but is cut back quite a bit. We continue to anger control counselor her extensively on tobacco cessation and [...] TabletTAKE 1 (more content not included)... Normal [facility] Tobacco Screening.on 022 Adult depression screening assessment No [facility] Work Phone: Adult depression screening assessment Yes [facility] Work Phone: Fall risk assessment a) No falls within the last year [facility] Work Phone: Tobacco use status CPHS a) Yes [facility] Work Phone: Tobacco Screening. Yes [facility] Work Phone: Tobacco Screening. 2-More than half the days [facility] Work Phone: Tobacco Screening. 0-Not at all [facility] Work Phone: Tobacco Screening. 3-Nearly every day [facility] Work Phone: Tobacco Screening. Not difficult at all [facility] Work Phone: Blood hemoglobin measurement (mass/volume)Ordered By: Viviane Loco on 12-16-2021 Hemoglobin (Bld) [Mass/Vol] 14.1 g/dL 11.8-15.4 [facility] Creatinine and Glomerular fi ltration rate.predicted panel (S/P/Bld)Ordered By: Viviane Loco on 12-16-2021 Creatinine [Mass/Vol] 0.72 mg/dL 0.44-1.03 [facility] Erythrocyte distribution wid th Auto (RBC) [Ratio]Ordered By: Viviane Loco on 12-16-2021 Erythrocyte distribution width (RBC) [Ratio] 14.4 % 11.9-15.3 [facility] Estimated glomerular filtrat ion rate (GFR) non- AmericanOrdered By: Viviane Loco on 12-16-2021 GFR/1.73 sq M.predicted among non-blacks MDRD (S/P/Bld) [Vol rate/Area] > 60 mL/Min [facility] Hematocrit Auto (Bld) [Volum e fraction]Ordered By: Viviane Loco on 12-16-2021 Hematocrit (Bld) [Volume fraction] 42.2 % 34.0-46.4 [facility] MCH Auto (RBC) [Entitic mass ]Ordered By: Viviane Loco on 12-16-2021 MCH (RBC) [Entitic mass] 29.8 pg 24.7-34.3 [facility] MCHC Auto (RBC) [Mass/Vol]Or dered By: Viviane Loco on 12-16-2021 MCHC (RBC) [Mass/Vol] 33.3 g/dL 32.0-35.0 [facility] MCV Auto (RBC) [Entitic vol] Ordered By: Viviane Loco on 12-16-2021 MCV (RBC) [Entitic vol] 89.4 fL 80-100 [facility] No Panel InformationOrdered By: Viviane Loco on 12-16-2021 Estimated GFR () > 60 mL/Min [facility] Comment on above: GFR estimated refere nce range: According to KDOQI guidelines, <60 ml/min/1.73m2 is sufficient to diagnose a patient with chronic kidney disease. Pharmacy Creatinine Clearance (Chem 77.13 [facility] Platelet mean volume Auto (B ld) [Entitic vol]Ordered By: Viviane Loco on 12-16-2021 Platelet mean volume (Bld) [Entitic vol] 8.7 fL 6.3-10.7 [facility] Platelets Auto (Bld) [#/Vol] Ordered By: Viviane Loco on 12-16-2021 Platelets (Bld) [#/Vol] 304 10*3/uL 150-450 [facility] RBC Auto (Bld) [#/Vol]Ordere d By: Viviane Loco on 12-16-2021 RBC (Bld) [#/Vol] 4.72 10*6/uL 3.60-5.00 [facility] Serum or plasma calcium chuck urement (mass/volume)Ordered By: Viviane Loco on 12-16-2021 Calcium [Mass/Vol] 9.6 mg/dL 8.2-10.2 [facility] Serum or plasma chloride susan surement (moles/volume)Ordered By: Viviane Loco on 12-16-2021 Chloride [Moles/Vol] 105 mmol/L 95-114 [facility] Serum or plasma glucose chuck urement (mass/volume)Ordered By: Viviane Loco on 12-16-2021 Glucose [Mass/Vol] 90 mg/dL 70-100 [facility] Comment on above: ADA recommended refe rence rangeRandom Glucose Reference Range is dependent on time and content of last meal. Glucose of more than 200 mg/dL in a nonstressed, ambulatory subject supports the diagnosis of Diabetes Mellitus. Serum or plasma potassium me asurement (moles/volume)Ordered By: Viviane Loco on 12-16-2021 Potassium [Moles/Vol] 4.0 mmol/L 3.5-5.1 [facility] Serum or plasma sodium measu rement (moles/volume)Ordered By: Viviane Loco on 12-16-2021 Sodium [Moles/Vol] 136 mmol/L 136-146 [facility] Serum or plasma total carbon dioxide measurement (moles/volume)Ordered By: Viviane Loco on 12-16-2021 CO2 [Moles/Vol] 21.5 mmol/L 22.0-30.0 [facility] Serum or plasma urea nitroge n measurement (mass/volume)Ordered By: Viviane Loco on 12-16-2021 Urea nitrogen [Mass/Vol] 12 mg/dL 9-23 [facility] Troponin I.cardiac [Mass/vol ume] in Serum or Plasma by High sensitivity methodOrdered By: Teo Gongora on 12-16-2021 Troponin I.cardiac High sensitivity method [Mass/Vol] 6412 pg/mL 0-15 [facility] Comment on above: Results calledat 080 2 on 12/16/21 WBC Auto (Bld) [#/Vol]Ordere d By: Viviane Loco on 12-16-2021 WBC (Bld) [#/Vol] 12.5 10*3/uL 3.8-11.6 [facility] Basophils Auto (Bld) [#/Vol] Ordered By: Viviane Loco on 12-15-2021 Basophils (Bld) [#/Vol] 0.1 10*3/uL 0.0-0.2 [facility] Basophils/100 WBC Auto (Bld) Ordered By: Viviane Loco on 12-15-2021 Basophils/100 WBC (Bld) 0.7 % [facility] Cholesterol [Mass/volume] in Serum or PlasmaOrdered By: Viviane Loco on 12-15-2021 Cholesterol [Mass/Vol] 262 mg/dL 140-200 [facility] Comment on above: Chol less than 200 m g/dl low riskChol 201-239 mg/dl borderline riskChol 240 mg/dl and greater high risk Cholesterol in LDL Calc [Mas s/Vol]Ordered By: Viviane Loco on 12-15-2021 Cholesterol in LDL [Mass/Vol] 202 mg/dL 0-100 [facility] Comment on above: LDL ATP III CLASSIFI CATIONLDL less than 100 mg/dL OptimalLDL 100-129 mg/dL Near or above optimalLDL 130-159 mg/dL Borderline highLDL 160-189 mg/dL HighLDL greater than 189 mg/dL Very high Cholesterol in VLDL Calc [Ma ss/Vol]Ordered By: Viviane Loco on 12-15-2021 Cholesterol in VLDL [Mass/Vol] 27 mg/dL [facility] Eosinophils Auto (Bld) [#/Vo l]Ordered By: Viviane Loco on 12-15-2021 Eosinophils (Bld) [#/Vol] 0.1 10*3/uL 0.0-0.45 [facility] Eosinophils/100 WBC Auto (Bl d)Ordered By: Viviane Loco on 12-15-2021 Eosinophils/100 WBC (Bld) 0.5 % [facility] Laboratory - Hematology and Cell countsOrdered By: Viviane Loco on 12-15-2021 Nucleated RBC/100 WBC (Bld) [Ratio] 0.1 % 0-0.5 [facility] WBC (Bld) [#/Vol] 13.3 10*3/uL 4.5-11.0 [facility] Lymphocytes Auto (Bld) [#/Vo l]Ordered By: Viviane Loco on 12-15-2021 Lymphocytes (Bld) [#/Vol] 3.8 10*3/uL 1.00-4.8 [facility] Lymphocytes/100 WBC Auto (Bl d)Ordered By: Viviane Loco on 12-15-2021 Lymphocytes/100 WBC (Bld) 28.9 % [facility] Monocytes Auto (Bld) [#/Vol] Ordered By: Viviane Loco on 12-15-2021 Monocytes (Bld) [#/Vol] 1.3 10*3/uL 0.0-0.8 [facility] Monocytes/100 WBC Auto (Bld) Ordered By: Viviane Loco on 12-15-2021 Monocytes/100 WBC (Bld) 9.5 % [facility] Neutrophils Auto (Bld) [#/Vo l]Ordered By: Viviane Loco on 12-15-2021 Neutrophils (Bld) [#/Vol] 8.0 10*3/uL 1.8-7.7 [facility] Neutrophils/100 WBC Auto (Bl d)Ordered By: Viviane Loco on 12-15-2021 Neutrophils/100 WBC (Bld) 60.4 % [facility] Serum or plasma high density lipoprotein (HDL) cholesterol measurementOrdered By: Viviane Loco on 12-15-2021 Cholesterol in HDL [Mass/Vol] 33 mg/dL 35-85 [facility] Comment on above: HDL CHOL ATP-III CLA SSIFICATION Cardiovascular RiskHDL > or equal to 60 mg/dL LOWHDL < 40 mg/dL HIGH Serum or plasma total choles terol/high density lipoprotein (HDL) cholesterol mass ratOrdered By: Viviane Loco on 12-15-2021 Cholesterol.total/Chol esterol in HDL [Mass ratio] 7.9 {ratio} [facility] Triglyceride [Mass/volume] i n Serum or PlasmaOrdered By: Viviane Loco on 12-15-2021 Triglyceride [Mass/Vol] 135 mg/dL 35-149 [facility] Comment on above: TRIG ATP III CLASSIF ICATIONTRIG less than 150 mg/dL NormalTRIG 150-199 mg/dL Borderline highTRIG 200-500 mg/dL High TRIG greater than 500 mg/dL Very highStandard traceable to the Center for Disease Conrtrol and Prevention (CDC) test method. AMYLASEon 12-14-2021 Amylase [Catalytic activity/Vol] 33 U/L Normal 25-115 [facility] Comment on above: Performed By: #### A MY, LIVER, BMP, LIPA, HSTROPN ####[facility] [address] [place] [address]Dr. Jozef Marrero CBC W MANUAL DIFFon 12-15-19 22 ATYPICAL LYMPH # 2.72 103/ul Normal [facility] Comment on above: Performed By: #### C JENN ####[facility] [address] [place] [address]Dr. Jozef Marrero ATYPICAL LYMPH % 17 % Normal [facility] Comment on above: Performed By: #### C JENN ####[facility] [address] [place] [address]Dr. Jozef Marrero BAND # Normal 0.0-0.3 [facility] Comment on above: Performed By: #### C JENN ####[facility] [address] [place] [address]Dr. Jozef Marrero BAND % Normal 0-5 [facility] Comment on above: Performed By: #### C JENN ####[facility] [address] [place], [place] [address]Dr. Jozef Marrero BASOM # 0.00 103/ul Normal 0.00-0.10 [facility] Comment on above: Performed By: #### C JENN ####[facility] [address] [place] [address]Dr. Jozef Marrero BASOM % 0.0 % Critically low 0.2-2.0 [facility] Comment on above: Performed By: #### C JENN ####[facility] [address] [place] [address]Dr. Jozef Marrero BLAST # Normal [facility] Comment on above: Performed By: #### C JENN ####[facility] [address] [place], [place] [address]Dr. Jozef Marrero BLAST % Normal [facility] Comment on above: Performed By: #### C JENN ####[facility] [address] [place], [place] [address]Dr. Jozef Marrero CORRECTED WBC Normal 4.0-11.0 [facility] Comment on above: Performed By: #### Bennett BARAJAS ####[facility] [address] [place] [id number]. Jozef Marrero EOS # 0.16 103/ul Normal 0.00-0.70 [facility] Comment on above: Performed By: #### Bennett BARAJAS ####[facility] [address] [place] [address]Dr. Jozef Marrero EOS% 1.0 % Normal 0.9-7.0 [facility] Comment on above: Performed By: #### Bennett BARAJAS ####[facility] [address] [place] [address]Dr. Jozef Marrero HCT 45.0 % Normal 36.0-48.0 [facility] Comment on above: Performed By: #### Bennett BARAJAS ####[facility] [address] [place] [address]Dr. Jozef Marrero HGB 15.2 g/dl Normal 12.0-16.0 [facility] Comment on above: Performed By: #### Bennett BARAJAS ####[facility] [address] [place] [address]Dr. Jozef Marrero LYMPHM # 3.68 103/ul Normal 1.20-3.80 [facility] Comment on above: Performed By: #### Bennett BARAJAS ####[facility] [address] [place] [address]Dr. Jozef Marrero LYMPHM% 23.0 % Normal 20.5-60.0 [facility] Comment on above: Performed By: #### Bennett BARAJAS ####[facility] [address] [place] [address]Dr. Jozef Marrero MCH 30.0 pg Normal 26.7-34.0 [facility] Comment on above: Performed By: #### Bennett BARAJAS ####[facility] [address] [place] [address]Dr. Jozef Marrero MCHC 33.8 g/dl Normal 29.9-35.2 [facility] Comment on above: Performed By: #### Bennett BARAJAS ####[facility] [address] [place], [place] [address]Oo. Jozef Marrero MCV 88.9 fL Normal 81.0-99.0 [facility] Comment on above: Performed By: #### C JENN ####[facility] [address] [place] [id number]. Jozef Marrero METAMYELOCYTE # Normal [facility] Comment on above: Performed By: #### C JENN ####[facility] [address] [place] [address]Dr. Jozef Marrero METAMYELOCYTE % Normal [facility] Comment on above: Performed By: #### C JENN ####[facility] [address] [place] [address]Dr. Jozef Marrero MONOM# 0.64 103/ul Normal 0.30-0.80 [facility] Comment on above: Performed By: #### C JENN ####[facility] [address] [place] [address]Dr. Jozef Marrero MONOM% 4.0 % Normal 1.7-12.0 [facility] Comment on above: Performed By: #### C JENN ####[facility] [address] [place] [address]Dr. Jozef Marrero MPV 10.3 fL Normal 9.5-13.5 [facility] Comment on above: Performed By: #### C JENN ####[facility] [address] [place] [address]Dr. Jozef Marrero MYELOCYTE # Normal [facility] Comment on above: Performed By: #### C JENN ####[facility] [address] [place] [address]Dr. Jozef Marrero MYELOCYTE % Normal [facility] Comment on above: Performed By: #### C JENN ####[facility] [address] [place] [address]Dr. Jozef Marrero NRBC Normal [facility] Comment on above: Performed By: #### C JENN ####[facility] [address] [place] [address]Dr. Jozef Marrero PLT 373 103/ul Normal 150-450 [facility] Comment on above: Performed By: #### Bennett BARAJAS ####[facility] [address] [place], [place] [address]Id. Jozef Marrero RBC 5.06 106/ul Normal 4.20-5.40 [facility] Comment on above: Performed By: #### Bennett BARAJAS ####[facility] [address]lm[address] [place] [id number]. Jozef Marrero RDW 14.2 % Normal 11.0-15.0 [facility] Comment on above: Performed By: #### Bennett BARAJAS ####[facility] [address] [place] [address]Dr. Jozef Marrero SEG # 8.80 103/ul Critically high 1.40-6.50 [facility] Comment on above: Performed By: #### Bennett BARAJAS ####[facility] [id number] [place] [id number]. Jozef Marrero SEG % 55.0 % Normal 43.0-75.0 [facility] Comment on above: Performed By: #### Bennett BARAJAS ####[facility] [id number] [place] [id number]. Jozef Marrero WBC 16.0 103/ul Critically high 4.0-11.0 [facility] Comment on above: Performed By: #### Bennett BARAJAS ####[facility] [id number] [place] [id number]. Jozef Marrero Cov[facility]-19 [facility]on [facility]-26 SARS-CoV-2 (COVID-19) RNA NEVA+probe Ql (Unsp spec) Not detected Normal NOT DETECTED [facility] Comment on above: Result Comment: When [...] for this test is supported by the Test [place] Driller of Health and Human Service's declaration that [...] used). Performed By: #### C VDTBH #### [facility] [address] [place] [address] Dr. Jozef Marrero LIPASEon 12-14-2021 Lipase [Catalytic activity/Vol] 49.0 U/L Normal 23.0-300.0 [facility] Comment on above: Performed By: #### A MY, LIVER, BMP, LIPA, HSTROPN #### [facility] [address] [place] [address] Dr. Jozef Marrero LIVER PROFILEon 12-14-2021 Albumin [Mass/Vol] 4.0 g/dL Normal 3.4-5.0 [facility] Comment on above: Performed By: #### A MY, LIVER, BMP, LIPA, HSTROPN #### [facility] [address] [place] [address] Dr. Jozef Marrero Albumin/Globulin [Mass ratio] 0.9 {ratio} Normal [facility] Comment on above: Performed By: #### A MY, LIVER, BMP, LIPA, HSTROPN #### [facility] [address] [place] [address] Dr. Jozef Marrero ALP [Catalytic activity/Vol] 143 U/L Critically high 46-116 [facility] Comment on above: Performed By: #### A MY, LIVER, BMP, LIPA, HSTROPN #### [facility] [address] [place] [address] Dr. Jozef Marrero ALT [Catalytic activity/Vol] 21 U/L Normal 14-59 [facility] Comment on above: Performed By: #### A MY, LIVER, BMP, LIPA, HSTROPN #### [facility] [address] [place] [address] Dr. Jozef Marrero AST [Catalytic activity/Vol] 70 U/L Critically high 15-37 [facility] Comment on above: Performed By: #### A MY, LIVER, BMP, LIPA, HSTROPN #### [facility] [address] [place] [address] Dr. Jozef Marrero BILI, CONJUGATED 0.1 mg/dL Normal 0.0-0.3 [facility] Comment on above: Performed By: #### A MY, LIVER, BMP, LIPA, HSTROPN #### [facility] [address] [place] [address] Dr. Jozef Marrero Bilirubin [Mass/Vol] 0.4 mg/dL Normal 0.2-1.3 [facility] Comment on above: Performed By: #### A MY, LIVER, BMP, LIPA, HSTROPN #### [facility] [address] [place] [address] Dr. Jozef Marrero Globulin (S) [Mass/Vol] 4.4 g/dL Normal [facility] Comment on above: Performed By: #### A MY, LIVER, BMP, LIPA, HSTROPN #### [facility] [address] [place] [address] Dr. Jozef Marrero Protein [Mass/Vol] 8.4 g/dL Critically high 6.1-8.2 [facility] [place] [facility] Comment on above: Performed By: #### A MY, LIVER, BMP, LIPA, HSTROPN #### [facility] [address] [place] [address] Dr. Jozef Marrero Laboratory - Chemistry and C hemistry - challengeOrdered By: Viviane Loco on 12-14-2021 Magnesium [Mass/Vol] 1.8 mg/dL 1.6-2.6 [facility] PROF CHEM 8 (BAS METB)on Anion gap [Moles/Vol] 14.0 mmol/L Normal [facility] Comment on above: Performed By: #### A MY, LIVER, BMP, LIPA, HSTROPN #### [facility] [address] [address] [address] Jozef Marrero Calcium [Mass/Vol] 9.4 mg/dL Normal 8.5-10.1 [facility] Comment on above: Performed By: #### A MY, LIVER, BMP, LIPA, HSTROPN #### [facility] [address] [address] [address] Jozef Marrero Chloride [Moles/Vol] 102 mmol/L Normal 98-107 [facility] Comment on above: Performed By: #### A MY, LIVER, BMP, LIPA, HSTROPN #### [facility] [address] [address] [address] Jozef Marrero CO2 [Moles/Vol] 26.4 mmol/L Normal 22.0-30.0 [facility] Comment on above: Performed By: #### A MY, LIVER, BMP, LIPA, HSTROPN #### [facility] [address] [place] [address] Dr. Jozef Marrero Creatinine [Mass/Vol] 0.69 mg/dL Normal 0.52-1.04 [facility] Comment on above: Performed By: #### A MY, LIVER, BMP, LIPA, HSTROPN #### [facility] [address] [place] [address] Dr. Jozef Marrero EGFR-AF MALTESE >60 Normal >=60 [facility] Comment on above: Performed By: #### A MY, LIVER, BMP, LIPA, HSTROPN #### [facility] [address] [place] [address] Dr. Jozef Marrero EGFR-NON AF MALTESE >60 Normal >=60 [facility] Comment on above: Performed By: #### A MY, LIVER, BMP, LIPA, HSTROPN #### [facility] [address] [place] [address] Dr. Jozef Marrero Glucose [Mass/Vol] 111 mg/dL Critically high 74-106 [facility] [place] [facility] Comment on above: Performed By: #### A MY, LIVER, BMP, LIPA, HSTROPN #### [facility] [address] [address] [address] Jozef Marrero Potassium [Moles/Vol] 3.4 mmol/L Normal 3.4-5.0 [facility] Comment on above: Performed By: #### A MY, LIVER, BMP, LIPA, HSTROPN #### [facility] [address] [address] [address] Jozef Marrero Sodium [Moles/Vol] 139 mmol/L Normal 137-145 [facility] Comment on above: Performed By: #### A MY, LIVER, BMP, LIPA, HSTROPN #### [facility] [address] [address] [address] Jozef Marrero Urea nitrogen [Mass/Vol] 8.0 mg/dL Normal 7.0-18.0 [facility] Comment on above: Performed By: #### A MY, LIVER, BMP, LIPA, HSTROPN #### [facility] [address] [address] [address] Jozef Marrero Urea nitrogen/Creatinine [Mass ratio] 11.6 mg/mg Normal [facility] Comment on above: Performed By: #### A MY, LIVER, BMP, LIPA, HSTROPN #### [facility] [address] [address] [address] Jozef Marrero PROTIMEon 12-14-2021 INR Coag (PPP) [Relative time] 1.05 {INR} Normal [facility] Comment on above: Performed By: #### P TT, PT ####[facility] [id number] [place] [address]Dr. Jozef Marrero INR GUIDELINES SEE BELOW Normal [facility] Comment on above: Result Comment: CAMILA RED INR: 2.0 - 3.0 CONDITIONS NOT LISTED BELOW 2.5 - 3.5 FOR PROSTHETIC HEART VALVE REPLACEMENT 2.5 - 3.5 RECURRENT THROMBOSIS Performed By: #### P TT, PT ####[facility] [address] [place] [address]Dr. Jozef Marrero PT Coag (PPP) [Time] 11.3 s Normal 9.0-11.6 [facility] Comment on above: Performed By: #### P TT, PT ####[facility] [address] [place], [place] [address]Rk. Jozef Marrero PTTon 12-14-2021 aPTT Coag (Bld) [Time] 33.0 s Normal 22.3-36.2 Th e [facility] Comment on above: Performed By: #### P TT, PT ####[facility] [address] [place], [place] [address]Hw. Jozef Marrero TROPONIN, HIGH SENSITIVITYon 12-14-2021 HSTROP 5000.2 pg/mL Critically high 4.0-35.5 [facility] Comment on above: Result Comment: CUT- OFF POINTS HAVE BEEN ESTABLISHED BASED ON THE FOURTH UNIVERSAL DEFINITIONS OF MYOCARDIAL INFARCTION. THE UPPER REFERENCE LIMIT (URL) OF TROPONIN, DEFINED THE 99TH PERCENTILE OF cTnI DISTRIBUTION IN A REFERENCE POPULATION, HAS BEEN CONFIRMED THE DECISION THRESHOLD FOR [place] DIAGNOSIS. test repeated critical value verified Performed By: #### A MY, LIVER, BMP, LIPA, HSTROPN ####[facility] [address] [place], [place] [address]Ty. Jozef Marrero US SINGLE QUAD RT UPPERon [...] MARIANN MARQUES Date: 2021-12-14 14:13 Normal [facility] XR CHEST 1 Von 12-14-2021 XR [...] by: YESIKA URBINA Date: 2021-12-14 13:23 Normal [facility] Vital Signs Date Time Vital Sign Value Performing Clinician Facility 07-13-2023 13:12-0500 Body temperature 96.91 [degF] Saleem Fitch MD Work Phone: [facility] 07-13-2023 13:12-0500 Body weight 70.31 kg Saleem Fitch MD Work Phone: [facility] 07-13-2023 13:12-0500 Diastolic blood pressure 67 mm[Hg] Saleem Fitch MD Work Phone: [facility] 07-13-2023 13:12-0500 Heart rate 76 /min Saleem Fitch MD Work Phone: [facility] 07-13-2023 13:12-0500 Respiratory rate 18 /min Saleem Fitch MD Work Phone: [facility] 07-13-2023 13:12-0500 SaO2% (BldA) [Mass fraction] 98 % Saleem Fitch MD Work Phone: [facility] 07-13-2023 13:12-0500 Systolic blood pressure 103 mm[Hg] Saleem Fitch MD Work Phone: [facility] 07-10-2023 10:42-0500 Body height 162.6 cm Isabel DUEÑAS Work Phone: [facility] 07-10-2023 10:42-0500 Body mass index (BMI) [Ratio] 26.09 kg/m2 Isabel DUEÑAS Work Phone: [facility] 07-10-2023 10:42-0500 Body weight 68.95 kg Isabel Cagle INVESTMENT TRADER[employer]QUIPMENT MECH[employer]IC Work Phone: [facility] 07-10-2023 10:42-0500 Diastolic blood pressure 68 mm[Hg] Isabel Cagle INVESTMENT TRADER[employer] EQUIPMENT MECHANIC Work Phone: [facility] 07-10-2023 10:42-0500 Heart rate 74 /min Isabel Cagle INVESTMENT TRADER[employer] EQUIPMENT MECHANIC Work Phone: [facility] 07-10-2023 10:42-0500 Systolic blood pressure 110 mm[Hg] Isabel Cagle INVESTMENT TRADER-[employer]ING EQUIPMENT MECHANIC Work Phone: [facility] 05-03-2023 12:19-0400 Body temperature 96.91 [degF] Saleem Fitch MD Work Phone: [facility] 05-03-2023 12:19-0400 Body weight 72.85 kg Saleem Fitch MD Work Phone: [facility] 05-03-2023 12:19-0400 Diastolic blood pressure 59 mm[Hg] Saleem Fitch MD Work Phone: [facility] 05-03-2023 12:19-0400 Heart rate 64 /min Saleem Fitch MD Work Phone: [facility] 05-03-2023 12:19-0400 Respiratory rate 18 /min Saleem Fitch MD Work Phone: [facility] 05-03-2023 12:19-0400 SaO2% (BldA) [Mass fraction] 98 % Saleem Fitch MD Work Phone: [facility] 05-03-2023 12:19-0400 Systolic blood pressure 91 mm[Hg] Saleem Fitch MD Work Phone: [facility] 04-26-2023 12:31-0400 Body temperature 97.11 [degF] Saleem Fitch MD Work Phone: [facility] 04-26-2023 12:31-0400 Body weight 72.94 kg Saleem Fitch MD Work Phone: [facility] 04-26-2023 12:31-0400 Diastolic blood pressure 72 mm[Hg] Saleem Fitch MD Work Phone: [facility] 04-26-2023 12:31-0400 Heart rate 56 /min Saleem Fitch MD Work Phone: [facility] 04-26-2023 12:31-0400 Respiratory rate 16 /min Saleem Fitch MD Work Phone: [facility] 04-26-2023 12:31-0400 SaO2% (BldA) [Mass fraction] 98 % Saleem Fitch MD Work Phone: [facility] 04-26-2023 12:31-0400 Systolic blood pressure 106 mm[Hg] Saleem Fitch MD Work Phone: [facility] 04-19-2023 10:14-0400 Body temperature 96.91 [degF] Saleem Fitch MD Work Phone: [facility] 04-19-2023 10:14-0400 Body weight 72.12 kg Saleem Fitch MD Work Phone: [facility] 04-19-2023 10:14-0400 Diastolic blood pressure 76 mm[Hg] Saleem Fitch MD Work Phone: [facility] 04-19-2023 10:14-0400 Heart rate 64 /min Saleem Fitch MD Work Phone: [facility] 04-19-2023 10:14-0400 Respiratory rate 18 /min Saleem Fitch MD Work Phone: [facility] 04-19-2023 10:14-0400 SaO2% (BldA) [Mass fraction] 98 % Saleem Fitch MD Work Phone: [facility] 04-19-2023 10:14-0400 Systolic blood pressure 112 mm[Hg] Saleem Fitch MD Work Phone: [facility] 04-05-2023 12:23-0400 Body temperature 98.01 [degF] Saleem Fitch MD Work Phone: [facility] 04-05-2023 12:23-0400 Body weight 72.58 kg Saleem Fitch MD Work Phone: [facility] 04-05-2023 12:23-0400 Diastolic blood pressure 76 mm[Hg] Saleem Fitch MD Work Phone: [facility] 04-05-2023 12:23-0400 Heart rate 73 /min Saleem Fitch MD Work Phone: [facility] 04-05-2023 12:23-0400 Respiratory rate 18 /min Saleem Fitch MD Work Phone: [facility] 04-05-2023 12:23-0400 SaO2% (BldA) [Mass fraction] 98 % Saleem Fitch MD Work Phone: [facility] 04-05-2023 12:23-0400 Systolic blood pressure 116 mm[Hg] Saleem Fitch MD Work Phone: [facility] 03-28-2023 14:48-0400 Body temperature 96.91 [degF] Saleem Fitch MD Work Phone: [facility] 03-28-2023 14:48-0400 Diastolic blood pressure 67 mm[Hg] Saleem Fitch MD Work Phone: [facility] 03-28-2023 14:48-0400 Heart rate 74 /min Saleem Fitch MD Work Phone: [facility] 03-28-2023 14:48-0400 Respiratory rate 18 /min Saleem Fitch MD Work Phone: [facility] 03-28-2023 14:48-0400 SaO2% (BldA) [Mass fraction] 96 % Saleem Fitch MD Work Phone: [facility] 08-01-2023 14:48-0400 Systolic blood pressure 100 mm[Hg] Saleem Fitch MD Work Phone: [facility] 12-30-2022 14:50-0400 Diastolic blood pressure 75 mm[Hg] DO Aris House Work Phone: [facility] 12-30-2022 14:50-0400 Heart rate 67 /min DO Aris House Work Phone: [facility] 12-30-2022 14:50-0400 Respiratory rate 14 /min DO Aris Stewart Work Phone: [facility] 12-30-2022 14:50-0400 SaO2% (BldA) [Mass fraction] 99 % DO Aris Stewart Work Phone: [facility] 12-30-2022 14:50-0400 Systolic blood pressure 122 mm[Hg] DO Aris Stewart Work Phone: [facility] 12-30-2022 13:50-0400 Body temperature 97.7 [degF] DO Aris Stewart Work Phone: [facility] 12-30-2022 11:36-0400 Body height 162.56 cm DO Aris Stewart Work Phone: [facility] 12-30-2022 11:36-0400 Body weight 76.65 kg DO Aris Stewart Work Phone: [facility] 12-28-2022 11:26-0400 Body height 162.56 cm Aris P House Work Phone: [facility] DO Work Phone: 12-28-2022 11:26-0400 Body mass index (BMI) [Ratio] 29.01 kg/m2 Aris P House Work Phone: [facility] [address] DO Work Phone: 12-28-2022 11:26-0400 Body surface area Derived from formula 1.82 m2 Aris P House Work Phone: [facility] [address] DO Work Phone: 12-28-2022 11:26-0400 Body weight 76.66 kg Aris P House Work Phone: [facility] [address] DO Work Phone: 12-28-2022 11:26-0400 Diastolic blood pressure 68 mm[Hg] Aris P House Work Phone: [facility] [address] DO Work Phone: 12-28-2022 11:26-0400 Heart rate 68 /min Aris P House Work Phone: [facility] [address] DO Work Phone: 12-28-2022 11:26-0400 Systolic blood pressure 132 mm[Hg] Aris P House Work Phone: [facility] [address] DO Work Phone: 05-05-2022 11:41-0400 Body height 162.56 cm Aris P House Work Phone: [facility] [address] DO Work Phone: 05-05-2022 11:41-0400 Body mass index (BMI) [Ratio] 25.92 kg/m2 Aris P House Work Phone: [facility] [address] DO Work Phone: 05-05-2022 11:41-0400 Body surface area Derived from formula 1.74 m2 Aris P House Work Phone: [facility] [address] DO Work Phone: 05-05-2022 11:41-0400 Body weight 68.49 kg Aris P House Work Phone: [facility] [address] DO Work Phone: 05-05-2022 11:41-0400 Diastolic blood pressure 82 mm[Hg] Aris P House Work Phone: [facility] [address] DO Work Phone: 05-05-2022 11:41-0400 Heart rate 80 /min Aris P House Work Phone: [facility] [address] DO Work Phone: 05-05-2022 11:41-0400 Systolic blood pressure 120 mm[Hg] Aris P House Work Phone: [facility] [address] DO Work Phone: 02-22-2022 09:45-0400 0 1 Aris P House Work Phone: [facility] [address] DO Work Phone: Comment on above: [id number] 01-25-2022 15:28-0400 Body height 162.56 cm Aris P House Work Phone: [facility] Work Phone: 01-25-2022 15:28-0400 Body mass index (BMI) [Ratio] 23.86 kg/m2 Aris P House Work Phone: [facility] Work Phone: 01-25-2022 15:28-0400 Body surface area Derived from formula 1.68 m2 Aris P House Work Phone: [facility] Work Phone: 01-25-2022 15:28-0400 Body weight 63.05 kg Aris P House Work Phone: [facility] Work Phone: 01-25-2022 15:28-0400 Diastolic blood pressure 76 mm[Hg] Aris P House Work Phone: [facility] Work Phone: 01-25-2022 15:28-0400 Heart rate 72 /min Aris P House Work Phone: [facility] Work Phone: 01-25-2022 15:28-0400 Systolic blood pressure 122 mm[Hg] Aris Edwards House Work Phone: [facility] Work Phone: 01-25-2022 15:28-0400 12 1 Aris Edwards House Work Phone: [facility] Work Phone: Comment on above: PHQ-9 TS 12-16-2021 16:00-0400 Body temperature 98.5 [degF] MD Viviane Loco Work Phone: [facility] 12-16-2021 16:00-0400 Diastolic blood pressure 90 mm[Hg] MD Viviane Loco Work Phone: [facility] 12-16-2021 16:00-0400 Heart rate 70 /min MD Viviane Loco Work Phone: [facility] 12-16-2021 16:00-0400 SaO2% (BldA) [Mass fraction] 100 % MD Viviane Loco Work Phone: [facility] 12-16-2021 16:00-0400 Systolic blood pressure 131 mm[Hg] MD Viviane Loco Work Phone: [facility] 12-16-2021 08:00-0400 Respiratory rate 18 /min MD Viviane Loco Work Phone: [facility] 12-16-2021 06:00-0400 Body weight 62.5 kg MD Viviane Loco Work Phone: [facility] 12-15-2021 11:00-0400 Body height 162.56 cm MD Viviane Loco Work Phone: [facility] 12-14-2021 16:55-0400 Body mass index (BMI) [Ratio] 25.4 kg/m2 MD Viviane Loco Work Phone: [facility] Encounters Encounter Date Encounter Type Care Provider Facility Start: 08-03-2023 End: 08-03-2023 ambulatory SHAIKH ABYB Not Available Start: 07-13-2023 End: 07-13-2023 ambulatory ARIS STEWART SR Facility:[facility] Start: 07-13-2023 End: 07-13-2023 Patient encounter procedure Saleem Fitch MD Work Phone: [facility] Comment on above: Neoplasm of lung (Pr imary Dx) Start: 07-10-2023 End: 07-10-2023 ambulatory [facility] Start: 07-10-2023 End: 07-10-2023 Office outpatient visit 15 minutes [facility] INVESTMENT TRADER[employer]IPMENT MECHANIC Work Phone: [facility] Comment on above: SVT (supraventricula r tachycardia) (Primary Dx); Hypertrophic nonobstructive cardiomyopathy (CMS/HCC); ASHD (arteriosclerotic heart disease); Essential hypertension; Mixed hyperlipidemia; Angina pectoris (CMS/HCC); Non-small cell cancer of left lung (CMS/HCC); BMI 26.0-26.9,adult Start: 06-19-2023 End: 06-20-2023 ambulatory [facility] Start: 06-19-2023 End: 06-19-2023 ambulatory [facility] Start: 06-15-2023 ambulatory [facility] Start: 06-13-2023 End: 06-14-2023 ambulatory [facility] Start: 05-11-2023 End: 05-11-2023 ambulatory ARIS STEWART SR Facility:[facility] Start: 05-11-2023 Patient encounter procedure Saleem Fitch MD Work Phone: [facility] Start: 05-11-2023 Radiation Oncology Note Saleem waldrop MD Work Phone: [facility] Comment on above: Completion Note Start: 05-10-2023 End: 05-10-2023 ambulatory ARIS STEWART SR Facility:[facility] Start: 05-09-2023 End: 05-09-2023 ambulatory ARIS STEWART SR Facility:[facility] Start: 05-08-2023 End: 05-08-2023 ambulatory ARIS STEWART SR Facility:[facility] Start: 05-05-2023 End: 05-05-2023 ambulatory ARIS STEWART SR Facility:[facility] Start: 05-04-2023 End: 05-04-2023 ambulatory ARIS STEWART SR Facility:[facility] Start: 05-03-2023 End: 05-03-2023 ambulatory ARIS STEWART SR Facility:[facility] Start: 05-03-2023 End: 05-03-2023 Patient encounter procedure Saleem Fitch MD Work Phone: Radiation Oncology Comment on above: Neoplasm of lung (Pr imary Dx) Start: 05-02-2023 End: 05-02-2023 ambulatory ARIS STEWART SR Facility:[facility] Start: 04-28-2023 End: 04-28-2023 ambulatory ARIS STEWART SR Facility:[facility] Start: 04-27-2023 End: 04-27-2023 ambulatory ARIS STEWART SR Facility:[facility] Start: 04-26-2023 End: 04-26-2023 ambulatory ARIS STEWART SR Facility:[facility] Start: 04-26-[address] Brett Gongora Facility: Start: 04-26-2023 End: 04-26-2023 Patient encounter procedure Saleem Fitch MD Work Phone: [facility]iation [facility]cology Comment on above: Smoking greater than 40 pack years (Primary Dx); Neoplasm of lung Start: 04-25-2023 End: 04-25-2023 ambulatory ARIS STEWART SR Facility:[facility] Start: 04-21-2023 End: 04-21-2023 ambulatory ARIS STEWART SR Facility:[facility] Start: 04-19-2023 End: 04-19-2023 ambulatory ARIS STEWART SR Facility:[facility] Start: 04-19-2023 End: 04-19-2023 Patient encounter procedure Saleem Fitch MD Work Phone: [facility]cology Comment on above: Neoplasm of lung (Pr imary Dx) Start: 04-18-2023 End: 04-18-2023 ambulatory ARIS CHAU HOUSE SR Facility:[facility] Start: 04-18-2023 Patient encounter procedure Bri Bernard LMT Hematology/Oncology Comment on above: Muscle soreness (Kelli cuate Dx) Start: 04-17-2023 End: 04-17-2023 ambulatory ARIS STEWART SR Facility:[facility] Start: 04-14-2023 End: 04-14-2023 ambulatory ARIS STEWART SR Facility:[facility] Start: 04-13-2023 End: 04-13-2023 ambulatory ARIS STEWART SR Facility:[facility] Start: 04-12-2023 End: 04-12-2023 ambulatory ARIS STEWART SR Facility:[facility] Start: 04-11-2023 End: 04-11-2023 ambulatory ARIS STEWART SR Facility:[facility] Start: 04-11-2023 Telephone encounter Saleem Fitch MD Work Phone: Radiation Oncology Comment on above: Missed Appointment Start: 04-10-2023 End: 04-10-2023 ambulatory ARIS STEWART SR Facility:[facility] Start: 04-07-2023 End: 04-07-2023 ambulatory ARIS STEWART SR Facility:[facility] Start: 04-06-2023 End: 04-06-2023 ambulatory ARIS STEWART SR Facility:[facility] Start: 04-05-2023 End: 04-05-2023 ambulatory ARIS STEWART SR Facility:[facility] Start: 04-05-2023 End: 04-05-2023 Patient encounter procedure Saleem Fitch MD Work Phone: Radiation Oncology Comment on above: Neoplasm of lung (Pr imary Dx) Start: 04-04-2023 End: 04-04-2023 ambulatory ARIS ISAC HOUSE SR Facility:[facility] Start: 04-03-2023 End: 04-03-2023 ambulatory ARIS STEWART SR Facility:[facility] Start: 03-31-2023 End: 03-31-2023 ambulatory ARIS STEWART SR Facility:[facility] Start: 03-30-2023 End: 03-30-2023 ambulatory [facility] Facility:[facility] Start: 03-29-2023 End: 03-29-2023 ambulatory [facility] SR Facility:[facility] Start: 03-28-2023 End: 03-28-2023 Nursing evaluation of [...] above: Appointment Start: 03-17-2023 End: 03-20-2023 ambulatory [facility] Facility:[facility] Start: 03-17-2023 End: 03-20-2023 Patient encounter procedure Saleem Fitch MD Work Phone: [employer] Comment on above: Neoplasm of lung (Pr imary Dx) Start: 03-17-2023 Radiation Oncology Note Saleem waldrop MD Work Phone: Radiation Oncology Comment on above: Simulation Note Treatment Planning Start: 03-15-2023 End: 03-15-2023 ambulatory [facility] Facility:[facility] Start: 03-14-2023 Telephone encounter Stan tracey MD, PhD Work Phone: [facility] Comment on above: Received Outside Med ical Records Start: 03-10-2023 End: 03-11-2023 ambulatory [facility] Start: 03-10-2023 End: 03-10-2023 ambulatory [facility] Start: 03-08-2023 Telephone encounter Saleem Fitch MD Work Phone: Radiation Oncology Comment on above: Patient Update; Card iac Clearance External Referrals/r esources; Consult Start: 03-08-2023 End: 03-08-2023 ambulatory ARCHANA RODRIGUEZ Facility:[facility] Start: 03-03-2023 End: 03-04-2023 ambulatory [facility] Start: 03-03-2023 End: 03-03-2023 ambulatory [facility] Start: 02-22-2023 End: 02-23-2023 ambulatory [facility] Start: 12-30-[address] Brett Gongora Facility:[id number] Start: 12-30-2022 [facility] Provider: Brett Gongora, Status: Pen, Time: 12:00 PM Aris P House Work Phone: [facility] [address] DO Work Phone: Start: 12-30-2022 End: 12-30-2022 ambulatory Aris Stewart Facility:[facility] Start: 12-30-2022 End: 12-30-2022 Admission to same day surgery center DO Aris House Work Phone: [facility]-Compounding And Finishing Supervisor Work Phone: Start: 12-30-2022 End: 12-30-2022 ambulatory DO Aris House Work Phone: [facility] Work Phone: Start: 12-28-2022 Office outpatient vi sit 40 minutes Aris P House Work Phone: [facility] [address] DO Work Phone: Start: 12-28-[address] Brett Gongora Facility: Start: 11-10-[address] Brett Gongora Facility: Start: 08-11-2022 End: 08-12-[address] ARIS STEWART Facility:H1 Start: 06-23-2022 End: 06-23-2022 ambulatory LUCIO WEST Facility:[facility]1 Start: 05-05-[address] Brett Gongora Facility: Start: 05-05-2022 Office outpatient vi sit 25 minutes Aris Stewart Work Phone: [facility] [address] DO Work Phone: Start: 03-01-2022 Chart Update Aris P Hous e Work Phone: [facility] [address] DO Work Phone: Start: 02-22-2022 Patient encounter procedure Aris Stewart Work Phone: [facility] 250 DO Work Phone: Start: 02-21-2022 End: 02-22-[address] ARIS STEWART Facility:H1 Start: 02-18-2022 End: 02-18-2022 ambulatory ALLY SANTORO Facility:[facility]1 Start: 02-17-2022 End: 02-17-2022 ambulatory LCUIO WEST Facility:H1 Start: 01-28-2022 End: 04-07-[address] BRETT GONGORA Facility:[facility]1 Start: 01-26-2022 End: 01-26-[address] BRETT GONGORA Facility:[facility]1 Start: 01-25-2022 Office outpatient vi sit 40 minutes Aris Stewart Work Phone: [facility] Work Phone: Start: 12-15-2021 End: 12-16-2021 Evaluation and management of inpatient MD Viviane Loco Work Phone: [facility] [place] [facility] Start: 12-14-2021 End: 12-14-2021 ambulatory ALLY SANTORO Facility:H1 Procedures Date Procedure Procedure Detail Performing Clinician Start: 07-11-2023 Ecg routine ecg w/least 12 lds w/i&r Isabel Cagle INVESTMENT TRADER-GAS WELDING EQUIPMENT MECHANIC Work Phone: Start: 12-30-2022 CL Iliac/Fem w/LHC [...] Viviane Loco Work Phone: Appendectomy Aris P Konjekt Work Phone: Hernia repair Aris Edwards Hous e Work Phone: History of placement of stent for coronary artery disease History of heart artery stent DO Aris Konjekt Work Phone: Hysterectomy Aris P Pat Work Phone: Operation on breast Aris P Konjekt Work Phone: Operation on colon Aris P Konjekt Work Phone: Total colonoscopy Aris P Konjekt Work Phone: Plan of Treatment Date Care Activity Detail Author Start: 06-19-2024 Diabetes mellitus screening Diabetes Screening [facility] Start: 01-09-2024 End: 01-09-2024 Patient encounter procedure 01/09/2024 9:30 AM EDT Office Visit [facility] [address] [place] [address] Brett Gongora DO [address] [facility] [address] [place] [address] [facility] Start: 07-10-2023 End: 07-10-2024 Basic metabolic 2000 panel - Serum or Plasma Basic Metabolic Panel Lab Routine SVT (supraventricular tachycardia) Hypertrophic nonobstructive cardiomyopathy (CMS/HCC) Expected: 07/10/2023 (Approximate), Expires: 07/10/2024 [facility] Service Area Work Phone: Comment on above: Expected: 07/10/2023 (Approximate), Expires: 07/10/2024 Start: 04-28-2023 Influenza vaccination [facility] Start: 02-08-2023 FUV, Provider: Brett Gnogora, Status: Pen, Time: 10:00 AM FUV, Provider: Brett Gongora, Status: Pen, Time: 10:00 AM [facility] [address] DO Work Phone: Start: 12-30-2022 End: 12-30-2022 [facility] Start: 11-10-2022 FUV, Provider: Brett Gongora, Status: Pen, Time: 10:00 AM FUV, Provider: Brett Gongora, Status: Pen, Time: 10:00 AM [facility] [address] DO Work Phone: Start: 08-28-2022 DEPRESSION ASSESSMENT DEPRESSION ASS ESSMENT [facility] Start: 05-05-2022 FUV, Provider: Brett Gongora, Status: Pen, Time: 11:20 AM FUV, Provider: Brett Gongora, Status: Pen, Time: 11:20 AM [facility] Work Phone: Start: 02-22-2022 HOLTER 48, Provider: XENA BARRETT CASUALTY INSURANCE CLAIM ADJUSTER 1,[id number], Status: Pen, Time: 10:30 AM HOLTER 48, Provider: XENA BARRETT CASUALTY INSURANCE CLAIM ADJUSTER 1,[id number], Status: Pen, Time: 10:30 AM [facility] Work Phone: Start: 02-22-2022 ECHO, Provider: SANDRA HHVI ULTRASOUND 01,[id number], Status: Pen, Time: 9:45 AM ECHO, Provider: SANDRA HHVI ULTRASOUND 01,[id number], Status: Pen, Time: 9:45 AM [facility] Work Phone: Start: 2017 SHINGRIX VACCINE (1 of 2) SHINGRIX VACCINE (1 of 2) [facility] Start: 2017 Zoster Vaccines (1 o f 2) Zoster Vaccines (1 of 2) [facility] Start: 2012 COLOGUARD (FIT-DNA) COLOGUARD (FIT-D NA) [facility] Start: [address] [facility] Start: 2012 COLORECTAL CANCER SCREENING COLORECTAL CANCER SCREENING [facility] Start: [address] COLONOGRAPHY [facility] Start: 2012 DIABETES SCREEN [facility]EN [facility] Start: 2012 Diabetes Screening Diabetes Screenin g [facility] Start: 2012 FECAL OCCULT BLOOD FECAL OCCULT BLOO D [facility] Start: 2012 Lipid 1996 panel - Serum or Plasma Lipid Screening [facility] Start: 2012 LIPID SCREEN LIPID SCREEN [facility] Start: [address] [facility] Start: [address] [facility] Start: 2007 Screening for malign ant neoplasm of breast Mammogram [facility] Start: 1997 HPV TESTING HPV TESTING [facility] Start: 1989 DTaP/Tdap/Td Vaccine s (1 - Tdap) DTaP/Tdap/Td Vaccines (1 - Tdap) [facility] Start: 1988 PAP TESTING PAP TESTING [facility] Start: 1988 Screening for malign ant neoplasm of cervix [facility] Start: [address] [facility] Start: 1985 HEPATITIS C SCREENING HEPATITIS C [facility] Start: 1985 Hepatitis C screening Hepatitis C [facility] Start: 1985 HIV SCREENING HIV SCREENING [facility] Start: 1973 PNEUMOCOCCAL (1 - PCV) PNEUMOCOCCAL (1 - PCV) [facility] Start: 1973 Pneumococcal vaccination Pneumococcal Vaccine (1 - PCV) [facility] Start: 1973 Pneumococcal Vaccine : Pediatrics (0 to 5 Years) and At-Risk Patients (6 to 64 Years) (1 - PCV) Pneumococcal Vaccine: Pediatrics (0 to 5 Years) and At-Risk Patients (6 to 64 Years) (1 - PCV) [facility] Start: 1968 MMR Vaccines (1 of 1 - Standard series) MMR Vaccines (1 of 1 - Standard series) [facility] Start: 04-09-1968 COVID-19 VACCINE (#1) COVID-19 VACCI NE (#1) [facility] Start: 1967 HEPATITIS B (1 of 3 - 3-dose series) HEPATITIS B (1 of 3 - 3-dose series) [facility] Start: 1967 Hepatitis B Vaccine (1 of 3 - 3-dose series) Hepatitis B Vaccine (1 of 3 - 3-dose series) [facility] Start: 1967 Hepatitis B Vaccines (1 of 3 - 3-dose series) Hepatitis B Vaccines (1 of 3 - 3-dose series) [facility] Start: 1967 HIV screening HIV Screening [facility] Start: 1967 Lipid panel Lipid Panel [facility] Start: 1967 Screening for malign ant neoplasm of colon [facility] Start: 1967 Yearly Adult Physical Yearly Adult P hysical [facility] CT SIM PLANNING RADIATION ONCOLOGY CT SIM PLANNING RADIATION ONCOLOGY Radiology Routine Neoplasm of lung Ordered: 03/17/2023 [facility] Work Phone: Comment on above: Ordered: 03/17/2023 ECG 12 Lead ECG 12 Lead ECG Routine SVT (supraventricular tachycardia) 07/11/2023 1:33 PM EST [facility] Work Phone: End: 04-10-2024 Mri brain brain stem w/o w/contrast material MRI BRAIN WO/W IVCON Radiology Routine Secondary malignant neoplasm of brain (HCC) Malignant neoplasm of left lung, unspecified part of lung (HCC) 1 Occurrences starting 03/10/2023 until 04/10/2024 [facility] Work Phone: Comment on above: 1 Occurrences starti ng 03/10/2023 until 04/10/2024 Patient Education [facility] Work Phone: Patient referral [facility] Work Phone: [facility] Payers Date Payer Category Payer Self-pay [id number] 2022 Medicaid [facility] MEDICAID [facility] COMMUNITY [employer]AN MEDICAID [place] [id number] 2022-Present [phone] [address] [place] [address] Medicaid [id number] 2022 Private Health Insurance [facility] [id number] 2022-Present [address] [place] [address] [id number] 2022 Private Health Insurance [id number] 1967 Unknown [id number] [id number]. 593 1967 Unknown [id number] 2.16.840.1.847733.3.579.2. 593 1967 Unknown [id number] 2.16.840.1.362783.3.579.2. 593 1967 Unknown [id number] 2.16.840.1.528571.3.579.2. 593 1967 Unknown [id number] 2.16.840.1.785542.3.579.2. 593 1967 Unknown [id number] 2.16.840.1.272770.3.579.2. 593 1967 Unknown [id number] 2.16.840.1.841019.3.579.2. 593 1967 Unknown [id number] 2.16.840.1.486212.3.579.2. 593 1967 Unknown [id number] 2.16.840.1.960825.3.579.2. 356 1967 Unknown [id number] 2.16.840.1.562294.3.579.2. 356 1967 Unknown [id number] 2.16.840.1.703080.3.579.2. 356 1967 Unknown [id number] 2.16.840.1.286483.3.579.2. 356 1967 Unknown [id number] 2.16.840.1.365246.3.579.2. 356 1967 Unknown [id number] 2.16.840.1.960255.3.579.2. 1244 1967 Unknown [id number] 2.16.840.1.452678.3.579.2. 1259 1959 Private Health Insurance [id number] Unknown [id number] Unknown Unknown [id number] [id number]. 531 Social History Date Type Detail Facility Start: 12-15-2021 End: 12-30-2022 Tobacco smoking status NVIS Smoker (finding) [facility] Start: 1965 Sex Assigned At Female [facility] Start: 03-08-2023 End: 07-13-2023 Current smoker Current smoker [facility] Comment on above: 1/2 ppd; 3-4 daily; Start: 03-08-2023 Tobacco smoking stat us NVIS Smokes tobacco daily [facility] End: 08-28-2022 History of tobacco use Cigarette Smoker [facility] Start: 03-08-2023 End: 07-10-2023 Tobacco use and exposure Smokeless tobacco non-user [facility] Start: 03-08-2023 End: 05-03-2023 Alcohol intake Ex-drinker (finding) [facility] Start: 03-08-2023 End: 07-13-2023 Tobacco use panel [facility] Start: 1965 Sex Assigned At Not on file [facility] National Score (1-100), lower number is lower risk 60 [facility] Start: 07-10-2023 Tobacco smoking stat us NHIS Ex-smoker [facility] Start: 07-10-2023 Alcohol intake Lifetime non-d chantal (finding) [facility] Work Phone: Start: 06-30-2023 End: 07-10-2023 Exposure to SARS-CoV-2 (event) Not sure [facility] Medical Equipment Procedure Code Equipment Code Equipment Origin al Text Equipment Identifier Dates Drug-eluting coronary artery stent, xoq-tniyxthdmijrf-vl lymer-coated ()[id number] FDA Start: 12-15-2021 Drug-eluting coronary artery stent, cda-pvbfbvlnfdwdj-nm lymer-coated ()[id number] FDA Start: 12-15-2021 Drug-eluting coronary artery stent, bnz-fbrkzqdnwzuvg-ek lymer-coated ()[id number] FDA Start: 12-15-2021 Goals Date Patient Goal Desired Activity /State Functional Status Date Assessment Result Facility 01-25-2022 PHQ-9 [id number] Moderate (10-14) [facility] Work Phone: 12-16-2021 Functional status Patient at Baseline [facility] Work Phone: Mental Status Date Assessment Result Facility 12-16-2021 Cognitive function Cognitive Sta tus Patient at Baseline [facility] Work Phone: Clinical Notes 12-14-2021 to 09-25-2023 Saleem Fitch MD - 07/13/2023 10:35 PM ESTAssessment & Plan Note - LEANA Ramos - 07/11/2023 1:26 PM ESTAssessment & Plan Note - ROSEMARY Ramos CNP - 07/11/2023 1:26 PM EST Note Date & Type Note Facility 09-25-2023 Note HNO ID: [id number] Author: MICHAEL AGUILAR LSW Service: ? Author Type: Clam Picker Type: Progress Notes Filed: 09/25/2023 16:11 Note [...] will follow up as appropriate. ELOY Whiteside [facility] 07-14-2023 Note HNO ID: [id number] Author: Saleem Fitch MD Service: ? Author [...] in coordination with Dr. Rodriguez at the [facility] on 05/11/2023 (6,000 cGy delivered in 30 fractions with concurrent carboplatin/paclitaxel). INTERVAL HISTORY/ROS: Ms. Faria returns to clinic today for routine follow-up approximately two months after the completion of her radiation treatments. In the interim, she was hospitalized shortly after completion of treatment for pneumonia and arrhythmia (tachycardia). Since discharge she has been on supplemental oxygen oxallh-rpw-rxtgg via nasal cannula at 2 L/min. She feels that her cough is improved and denies any hemoptysis but still has some tightness in the chest with deep breaths. She denies any esophagitis that she is swallowing well. She is seeing a physical damage appraiser and is currently on a nebulizer 3 [...] in coordination with Dr. Rodriguez at the [facility] on 05/11/2023 (6,000 cGy delivered in 30 fractions with concurrent carboplatin/paclitaxel). Ms. Faria continues to recover from the acute toxicities of her recent course of chemoradiation which was complicated by recent hospitalization for pneumonia. She is showing slow improvement but continues to require supplemental oxygen and will follow with her physical damage appraiser plans for PFTs as well as pulmonary [...] 4 months. Th (more content not included)... [facility] 07-13-2023 History of Present illness Narrative [...] in coordination with Dr. Rodriguez at the [facility] on 05/11/2023 (6,000 cGy delivered in 30 fractions with concurrent carboplatin/paclitaxel). INTERVAL HISTORY/ROS: Ms. Faria returns to clinic today for routine follow-up approximately two months after the completion of her radiation treatments. In the interim, she was hospitalized shortly after completion of treatment for pneumonia and arrhythmia (tachycardia). Since discharge she has been on supplemental oxygen qainjw-zze-nbvcb via nasal cannula at 2 L/min. She feels that her cough is improved and denies any hemoptysis but still has some tightness in the chest with deep breaths. She denies any esophagitis that she is swallowing well. She is seeing a physical damage appraiser and is currently on a nebulizer 3 [...] in coordination with Dr. Rodriguez at the [facility] on 05/11/2023 (6,000 cGy delivered in 30 fractions with concurrent carboplatin/paclitaxel). Ms. Faria continues to recover from the acute toxicities of her recent course of chemoradiation which was complicated by recent hospitalization for pneumonia. She is showing slow improvement but continues to require supplemental oxygen and will follow with her physical damage appraiser plans for PFTs as well as pulmonary [...] of said technology/software. documented in this encounter [facility] 07-11-2023 Evaluation + Plan note Associated Problem(s): Non-small cell lung cancer (CMS/HCC) Reports diagnosed February 22, 2023 Treated with radiation and chemotherapy Pulmonary stent has been removed PET scan pending [facility] Work Phone: 07-11-2023 Evaluation + Plan note Associated Problem(s): BMI 26.0-26.9,adult Reviewed the merits of healthy lifestyle choices on overall cardiovascular health. 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 Potassium 2.9 at that time PE ruled out Dose of metoprolol increased and Cardizem added [facility] Work Phone: 07-11-2023 Evaluation + Plan note Associated Problem(s): Angina pectoris (CMS/HCC) Resolved [facility] Work Phone: 07-11-2023 Evaluation + Plan note Associated Problem(s): Hypertrophic nonobstructive cardiomyopathy (CMS/HCC) January 2022 TTE Hyperdynamic LVEF 75 to 80% Severe symmetric LVH with cavitary obliteration during systole with no significant gradient. December 2022 cardiac cath LVEF 80% [facility] Work Phone: 07-11-2023 Evaluation + Plan note Associated Problem(s): ASHD (arteriosclerotic heart disease) November 2021 PCI mCX & dRCA December 2022 cardiac cath mCX patent stent dRCA patent stent LAD normal Current daily activity less than 4 METS without recurrent symptoms [facility] Work Phone: 07-10-2023 History of Present [...] new symptoms arise. Dr. Rolan Cagle MSN, INVESTMENT TRADER-GAS WELDING EQUIPMENT MECHANIC, PMHNP-BC [facility] Please excuse any errors in grammar or translation related to this dictation. Voice recognition software was utilized to prepare this document. documented in this encounter [facility] Work Phone: 07-10-2023 Instructions LEANA Ramos [...] Dr. Gongora months documented in this encounter [facility] Work Phone: 06-19-2023 Note Cardiology consulted for tachycardia EKG and telemetry show Atrial tachycardia Will start Cardizem CD 120 mg daily Close outpatient follow recommended I asked her to see PCP or cardiology within 1 week. Maritza Pardo MD [place] Cardiology [facility] 06-19-2023 Note Patient: Jeanmarie chavarria Procedure Summary Date: 06/19/23 Room / Location: [facility] Main Operating Room Anesthesia Start: 1208 Anesthesia [...] able to get In touch with her quill machine tender () who stated that any arrythmias such [...] per anesthesia protocol. No notable events documented. [facility] 06-19-2023 Note Airway Date/Time: 06/19/2023 12:15 PM Urgency: elective Airway not difficult General Information and Staff Patient location during procedure: OR Anesthesiologist: Elisabeth Kendall MD Resident/AQUATICS LIFEGUARD/CAA: KYLE Wan Performed: resident/AQUATICS LIFEGUARD/CAA Indications and Patient Condition Indications for airway management: anesthesia Spontaneous ventilation: present Sedation level: deep Preoxygenated: yes Patient position: sniffing Mask difficulty assessment: 0 - not attempted Final Airway Details Final airway type: supraglottic airway Successful airway: i-gel Size 4 Number of attempts at approach: 1 Ventilation between attempts: none Number of other approaches attempted: 1 [facility] 06-19-2023 Note Patient: Jeanmarie chavarria Procedure Summary Date: 06/19/23 Room / Location: [facility] Main Operating Room Anesthesia Start: 1208 Anesthesia [...] VSS, SV well, arousable, report to RN [facility] 06-19-2023 Note Patient: Jeanmarie chavarria Procedure Information Date/Time: 06/19/23 1200 Scheduled providers: Betito Foss MD; Elisabeth Kendall MD; KYLE Wan Procedure: BRONCHOSCOPY Location: [facility] Main Operating Room Relevant Problems No relevant [...] Plan discussed with CAA. Additional Equipment Requests [facility] 06-15-2023 Note Attestation signed by Betito Foss [...] Age: 57 y.o. : 1965 Account No.: [id number] Chief complaint: Stent reversion HPI Jeanmarie Faria [...] was initiated by the patient and conducted ajr-dldc-wd-face with use of audio-only real time telephone communication between patient and provider for a virtual visit. Verbal consent to provide and bill for this service was obtained on 06/15/2023. No signature was obtained due to the COVID-19 pandemic. Julio Taylor Pulmonary and critical care fellow [facility]. 06/15/23 11:39 AM [facility] 05-11-2023 Note HNO ID: [id number] Author: Saleem Fitch MD Service: ? Author Type: Physician Type: Progress Notes Filed: 05/19/2023 12:32 AM Note Text: [facility] Radiation Oncology Department RADIATION ONCOLOGY - COMPLETION [...] in coordination with Dr. Rodriguez at the [facility]. AREA TREATED: Chest/Mediastinum/Left Neck DELIVERED DOSE: [...] Signed cc: Archana Rodriguez MD [address] [facility] [place] [address] Via Betito Foss MD [address] [place] [address] [address] Aris [facility] DO [address] [facility] [place] [address] Via [facility] 05-11-2023 Note HNO ID: [id number] Author: Saleem Fitch MD Service: ? Author [...] again regarding smoking cessation. Saleem Fitch MD [facility] 05-11-2023 History of Present illness Narrative [facility] Radiation Oncology Department RADIATION ONCOLOGY - COMPLETION [...] in coordination with Dr. Rodriguez at the [facility]. AREA TREATED: Chest/Mediastinum/Left Neck DELIVERED DOSE: [...] Signed cc: Archana Rodriguez MD [address] [facility] [place] [address] Via Betito Foss MD [address] [place] [address] Via Aris [facility] DO [address] [facility] [place] [address] Via documented in this encounter [facility] 05-04-2023 Note HNO ID: [id number] Author: Saleem Fitch MD Service: ? Author [...] radiation treatment as planned. Saleem Fitch MD [facility] 05-03-2023 History of Present illness Narrative [...] Saleem Fitch MD documented in this encounter [facility] 04-27-2023 Note HNO ID: [id number] Author: Saleem Fitch MD Service: ? Author [...] again regarding smoking cessation. Saleem Fitch MD [facility] 04-26-2023 History of Present illness Narrative [...] Saleem Fitch MD documented in this encounter [facility] 04-26-2023 Nurse Note Status: Post-menopausal. documented in this encounter [facility] 04-19-2023 Note HNO ID: [id number] Author: Saleem Fitch MD Service: ? Author [...] tapering dose of steroids. Saleem Fitch MD [facility] 04-19-2023 History of Present illness Narrative [...] Saleem Fitch MD documented in this encounter [facility] 04-18-2023 Note HNO ID: [id number] Author: Bri Bernard LMT Service: ? Author [...] Date: April 18, 2023 Time: 2:18 PM [facility] 04-18-2023 History of Present illness Narrative [...] Time: 2:18 PM documented in this encounter [facility] 04-12-2023 Note HNO ID: [id number] Author: Saleem Fitch MD Service: ? Author [...] will continue to monitor. Saleem Fitch MD [facility] 04-11-2023 Miscellaneous Notes LM for pt to CB regarding missed XRT appt. Nilsa Deal RN documented in this encounter [facility] 04-05-2023 Note HNO ID: [id number] Author: Saleem Fitch MD Service: ? Author [...] to help with expectoration. Saleem Fitch MD [facility] 04-05-2023 History of Present illness Narrative [...] Saleem Fitch MD documented in this encounter [facility] 04-05-2023 Nurse Note Status: Post-menopausal. documented in this encounter [facility] 03-28-2023 Note HNO ID: [id number] Author: Saleem Fitch MD Service: ? Author [...] the course of treatment. Saleem Fitch MD [facility] 03-28-2023 History of Present illness Narrative [...] Saleem Fitch MD documented in this encounter [facility] 03-28-2023 Nurse Note Aromatherapy to promote a healing environment. TYPE: container SCENT: citrus blend Aromatherapy education materials were provided and reviewed with the patient. Toney Bailon LPN documented in this encounter [facility] 03-28-2023 Nurse Note Radiation Therapy - Patient Education Note PATIENT NAME: Jeanmarie Faria PATIENT March 28, 2023 [facility] FACILITY/LOCATION: [facility] READINESS TO LEARN Cognitive Ability: Alert [...] need for social work, van service, and helicopter mechanic. Patient is scheduled to see helicopter mechanic at [facility]. Was approved? No Signed by: Toney Bailon LPN documented in this encounter [facility] 03-28-2023 Nurse Note Status: Patient states there is no possibility she is at this time. documented in this encounter [facility] 03-28-2023 Note Education (RUY) JEANMARIE FARIA ([id number]) 1965 F Date Time Provider Department 03/28/23 TONEY BAILON Reason for Visit: Patient Education [91] Visit Notes: >> Toney Bailon LPN Tue Mar 28, 2023 3:21 PM Status: Signed Radiation Therapy - Patient Education Note PATIENT NAME: Jeanmarie Faria PATIENT March 28, 2023 [facility] FACILITY/LOCATION: [facility] READINESS TO LEARN Cognitive Ability: Alert [...] need for social work, van service, and helicopter mechanic. Patient is scheduled to see helicopter mechanic at [facility]. Was approved? No Signed by: Toney [...] Encounter Status:Closed by TONEY BAILON on 03/28/23 [facility] 03-23-2023 Miscellaneous Notes I notified Jeanmarie of her upcoming new start appointment. She is scheduled for 03/28/23 at 2:30. Patient is in agreement with this appt. Toney Bailon LPN documented in this encounter [facility] 03-22-2023 Note HNO ID: [id number] Author: Saleem Fitch MD Service: ? Author Type: Physician Type: Progress Notes Filed: 03/21/2023 11:27 PM Note Text: Radiation Oncology - New Patient/Consult Note PATIENT NAME: Jeanmarie Faria PATIENT REQUESTING PHYSICIAN: Archana Rodriguez MD DIAGNOSIS: Locally advanced non-small lung cancer (staging pending) PATIENT IDENTIFICATION: This patient was seen in the Department of Radiation Oncology at the [facility] with Saleem Fitch MD. Final recommendations will be communicated back to the requesting physician by way of the shared medical record, or letter to requesting physician via US mail. HISTORY OF PRESENT ILLNESS: Ms. Faria is a 57-year-old woman in [place], [place] who was found to have a [...] met with Dr. Rodriguez medical oncology at [facility] and referred to physical damage appraiser Dr. Foss as an outpatient. She underwent [...] the past year and having had an KS approximately a year ago. She does note [...] Ms. Faria is and lives in the [place], [place] area. 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 She notes an approximate 30-hkjr-yelt history of smoking and has reduced down [...] PATHOLOGIC DATA: 03/03/2023 (more content not included)... [facility] 03-18-2023 Note HNO ID: [id number] Author: Saleem Fitch MD Service: ? Author [...] which included preparing to see the patient, zoxo-er-vvso patient care, counseling and educating the patient/family/caregiver, and communicating results to the patient/family/caregiver. This document has been created with the use of voice recognition technology. It may contain inaccuracies, misspellings, inaccurate syntax or inappropriate word context that are a result of the inadequacies/shortcomings of said technology/software. [facility] 03-17-2023 History of Present illness Narrative [...] which included preparing to see the patient, nrab-ud-ygdo patient care, counseling and educating the patient/family/caregiver, and communicating results to the patient/family/caregiver. This document has been created with the use of voice recognition technology. It may contain inaccuracies, misspellings, inaccurate syntax or inappropriate word context that are a result of the inadequacies/shortcomings of said technology/software. documented in this encounter [facility] 03-17-2023 Note HNO ID: [id number] Author: Saleem Fitch MD Service: ? Author Type: Physician Type: Progress Notes Filed: 03/25/2023 12:33 AM Note Text: JEANMARIE FARIA [id number] 03/17/2023 [facility] Department of Radiation Oncology Treatment Planning Note [...] Electronically Signed Saleem Fitch M.D. :10 PM [facility] 03-17-2023 Note HNO ID: [id number] Author: Saleem Fitch MD Service: ? Author Type: Physician Type: Progress Notes Filed: 06/06/2023 9:45 AM Note Text: JEANMARIE FARIA [id number] 03/17/2023 [facility] Radiation Oncology Department SIMULATION NOTE DATE OF SIMULATION: 03/17/2023 THERAPIST: Gayathri Valdez MACHINE: [employer] mCT DIAGNOSIS: C34.82 Malignant neoplasm of overlapping sites of left bronchus and lung AREA: LUNG CONTRAST: IV Oral Consent in Epic: Yes PATIENT POSITION: Supine. FIXATION DEVICE: In order to achieve accurate and reproducible treatments, the patient is immobilized with THE ORFIT AIO SYSTEM. 50ML OF [id number] WAS INJECTED VIA THE RIGHT WRIST SIPS OF 20ML OF [id number] DILUTED IN 450 ML OF WATER WAS [...] Saleem Fitch M.D. / GHANSHYAM :18 PM [facility] 03-17-2023 Note HNO ID: [id number] Author: Saleem Fitch MD Service: ? Author Type: Physician Type: Progress Notes Filed: 03/21/2023 12:34 AM Note Text: JEANMARIE FARIA [id number] 03/17/2023 [facility] Radiation Oncology Department SIMULATION NOTE DATE OF SIMULATION: 03/17/2023 THERAPIST: Gayathri [employer] MACHINE: [employer] DIAGNOSIS: AREA: LUNG CONTRAST: IV Oral Consent in Epic: Yes PATIENT POSITION: Supine. FIXATION DEVICE: In order to achieve accurate and reproducible treatments, the patient is immobilized with THE ORFIT AIO SYSTEM. 50ML OF [id number] WAS INJECTED VIA THE RIGHT WRIST SIPS OF 20ML OF [id number] DILUTED IN 450 ML OF WATER WAS [...] Saleem Fitch M.D. / GHANSHYAM 34:08 AM [facility] 03-17-2023 History of Present illness Narrative JEANMARIE FARIA [id number] 03/17/2023 [facility] Radiation Oncology Department SIMULATION NOTE DATE OF SIMULATION: 03/17/2023 THERAPIST: Gayathri [employer] MACHINE: [employer] DIAGNOSIS: C34.82 Malignant neoplasm of overlapping sites of left bronchus and lung AREA: LUNG CONTRAST: IV Oral Consent in Epic: Yes PATIENT POSITION: Supine. FIXATION DEVICE: In order to achieve accurate and reproducible treatments, the patient is immobilized with THE ORFIT AIO SYSTEM. 50ML OF [id number] WAS INJECTED VIA THE RIGHT WRIST SIPS OF 20ML OF [id number] DILUTED IN 450 ML OF WATER WAS [...] GHANSHYAM 37:18 PM documented in this encounter [facility] 03-17-2023 History of Present illness Narrative JEANMARIE FARIA [id number] 03/17/2023 [facility] Department of Radiation Oncology Treatment Planning Note [...] M.D. 35:10 PM documented in this encounter [facility] 03-15-2023 Note HNO ID: [id number] Author: Nancy Sanabria RT(R) Service: ? Author [...] 0810 PATIENT DISCHARGED TO: Ambulatory patient, left [place] department area. A Diagnostic radioactive procedure has taken place, with no further precautions necessary other than routine body substance precautions. More information regarding radiation safety can be found using this link: [email or web address] [email or web address] SIGNATURE: RT Letty(R) PATIENT NAME: Jeanmarie Faria DATE: March 15, 2023 TIME: 11:18 AM PAGER/CONTACT #: [facility] 03-15-2023 Note HNO ID: [id number] Author: Diane Botson RN Service: ? Author Type: Registered Nurse [...] DATE: March 15, 2023 TIME: 8:04 AM [facility] 03-14-2023 Miscellaneous Notes Received Hem/Onc consult notes 03/07/23 from [facility] Record scanned in pernell Alvarez asst documented in this encounter [facility] 03-10-2023 Note Patient: Jeanmarie chavarria Procedure Summary Date: 03/10/23 Room / Location: [facility] Main Operating Room Anesthesia Start: 1102 Anesthesia [...] no known notable events for this encounter. 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 Additional Equipment Requests [facility] 03-10-2023 Miscellaneous Notes Images from the original note were not included. Thoracic Surgery Consultation - review of records for appointment scheduling Received medical records from the office of [facility] [address] [place] [id number] Patient is being referred to Stan Garcia [...] position. ebus 03/03/2023 Imaging PET/CT: 03/15/[address] [place] [address] (chest) 02/19/23 Cardiopulmonary Testing PFT's/Six: requested [...] Fitch to discuss PET scan 03/15 at [facility], await results Nancy Beach RN LOCAL PATIENT Received Fax from Dr. Archana Terrykerri Faria is being referred to Stan Garcia M.D., Ph. D. Or Lamonte Guerra by Dr. Archana Rodriguez [address] [place] [id number] Patient diagnosis/Reason for consult: Lung Cancer Referral triage process explained: No Patient will receive a call from Thoracic NPM after triage review with surgeon to discuss any additional testing and/or consults that will be scheduled. Pt will then receive a call from our scheduling office for scheduling. Please call pt at [phone]. Patient was informed consultation could be at [facility] or [facility]: No Patient Registration: Registration complete/updated: yes Insurance card(s) scanned in [facility] with in the past year: Yes: Date: 03/08/23 Pt's Startupeandohart is Pending. Ok to communicate to pt via Parudi not asked Medical Records: Records in [facility] (internal [facility] records): Yes Imaging in [facility] (internal [facility] records): Yes Care Everywhere - queried yes, downloaded Yes Linked Outside Organizations (list): [facility]; [facility]; [facility] Records Requested: No Date: N/A Outside Hospital(s) requested records from: n/a Received: yes Uploaded: Yes. Waiting on additional records: No. Missing (list): N/A OSH Pathology Slides Requested: no Date: N/A Outside Hospital(s) slides requested from: n/a OSH Radiology Imaging Requested: yes Date: March 08, 2023 Outside Hospital(s) requested imaging from: [facility]. Imaging will be received via Electronic Transfer Received: Yes Imaging uploaded: Yes Waiting on additional: No Missing (list): n/a Additional providers added to Care Teams: Yes Additional Notes/Comments: n/a Enct routed to: Zana Louis NPM for Triage Alber Fernandez, systems administrator documented in this encounter [facility] 03-08-2023 Miscellaneous Notes I notified Carla with Dr. Gongora's office, cardiology, that Jeanmarie will be scheduled for a bronchoscopy with pulmonary stent placement with Dr. Foss, [place] physical damage appraiser, and will need cardiac clearance. I provided Carla with Dr. Foss's phone and fax number and she notify Dr. Gongora. Toney Bailon LPN documented in this encounter [facility] 03-03-2023 Note No concerns as per c all back guidelines [facility] 03-03-2023 Note Patient: Jeanmarie chavarria Procedure Summary Date: 03/03/23 Room / Location: [facility] Main Operating Room Anesthesia Start: 1334 Anesthesia [...] per anesthesia protocol. No notable events documented. [facility] 03-03-2023 Note Airway Date/Time: 03/03/2023 1:45 PM Urgency: elective Airway not difficult General Information and Staff Patient location during procedure: OR Anesthesiologist: Jacky Yuan MD Resident/AQUATICS LIFEGUARD/CAA: Isiah Alves MD Performed: resident/AQUATICS LIFEGUARD/CAA Indications and Patient Condition Indications for airway management: anesthesia Spontaneous ventilation: present Sedation level: deep Preoxygenated: yes Patient position: sniffing Final Airway Details Final airway type: supraglottic airway Successful airway: i-gel Size 4 Number of attempts at approach: 1 Number of other approaches attempted: 0 [facility] 03-03-2023 Note Patient: Jeanmarie chavarria Procedure Summary Date: 03/03/23 Room / Location: [facility] Main Operating Room Anesthesia Start: 1334 Anesthesia Stop: Procedure: BRONCHOSCOPY Diagnosis: Mediastinal adenopathy Scheduled Providers: Betito Foss MD; Jacky Yuan MD Responsible Provider: Jacky Yuan MD Anesthesia Type: general ASA Status: 4 Anesthesia Post Transport Note Transport to: PACU O2 Route: room air Patient Monitor: direct observation Transport: uneventful Patient condition is: stable [facility] 03-03-2023 Note Patient: Jeanmarie chavarria Procedure Information Date/Time: 03/03/23 1330 Scheduled providers: Betito Foss MD; Jacky Yuan MD Procedure: BRONCHOSCOPY Location: [facility] Main Operating Room Relevant Problems No relevant [...] Plan discussed with resident. Additional Equipment Requests [facility] 02-24-[address] Rodriguez . 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 I have reviewed the images and the patient will need an urgent EBUS-TBNA. Orders placed Betito Foss MD Interventional Pulmonary Medicine Pulmonary and Critical Care Medicine [facility] Physicians [facility] 12-30-2022 Discharge summary Note Date/Time December 30, 2022 1:19pm [facility] [address] [place] [address] Discharge Summary Signed Patient: Jeanmarie Faria MR#: [id number] : 1965 Acct:[id number] Age/Sex: 57 / F Adm Date: 3 [...] % (Auto) 60.8, Lymph % (Auto) 27.2, Ramsey % (Auto) 10.1, Eos % (Auto) 1.0, Baso % (Auto) 0.9, Nucleat RBC Rel Count 0.2, Neut # (Auto) 7.8 H, Lymph # (Auto) 3.5, Ramsey # (Auto) 1.3 H, Eos # (Auto) [...] cessation Additional Instructions: DISCHARGE INSTRUCTIONS FOR CARDIAC QUALITY REVIEW TRAINER PHONE NUMBER OF YOUR PHYSICIAN: [phone] PROCEDURE: Heart Cath The following instructions have [...] cold, numb, blue or white, call the quill machine tender immediately. 4. ACTIVITY: You are advised to [...] bottle, follow the instructions on the bottle. [facility] is not responsible for incorrect prescription [...] signed by Teo Gongora DO> 12/30/22 1321 [facility] Work Phone: 1(904) 607-878805-05-2023 [facility] Hospital Discharge instructions Additional Instructions DISCHARGE INSTRUCTIONS FOR CARDIAC QUALITY REVIEW TRAINER PHONE NUMBER OF YOUR PHYSICIAN: [phone] PROCEDURE: Heart Cath The following instructions have [...] cold, numb, blue or white, call the quill machine tender immediately. 4. ACTIVITY: You are advised to [...] bottle, follow the instructions on the bottle. [facility] is not responsible for incorrect prescription information provided by the patient during their visit. Do not stop your medications without consulting your health care provider. Please take the list with you to your next doctor's appointment.[facility] Work Phone: 1(585) 561-840604-21-2022 Discharge summary Author Viviane Loco [facility] December 16, 2021 5:37pm Note Date/Time December 16, 2021 4:[address] [facility] [address] [place] [address] Discharge Summary Signed with Addenda Patient: Jeanmarie Faria MR#: [id number] : 1965 Acct:[id number] Age/Sex: 56 / F Adm Date: 2 Loc: Room: [address] [place] [address]: Viviane Loco MD Copies to: [...] Final Diagnosis Final Discharge Diagnosis: Non-ST elevation KS status post intervention in circumflex and RCA Hyperlipidemia LVH hypertrophy with septal asymmetry Summary Hospital Course Hospital course: 56 years old female was transferred with non-ST elevation KS. Patient presentedwith shortness of breath and chest pain. Patient was found to have non-ST elevation KS with significantly abnormal EKG and elevated troponins. [...] Laboratory work up and Imaging studies reviewed hall monitor - reviewed, no significant arrhythmias noted The [...] doctor or pharmacist, without first calling the quill machine tender who implanted the stent. If you require [...] weight lifting, stair steppers, etc. until the quill machine tender approves these activities. Check with the quill machine tender on your first follow-up visit. CALL YOUR PHYSICIAN at [phone]: -If bleeding should occur from the catheter insertion site- apply pressure to the site then immediately call us. -Report any fever, redness, drainage, increased swelling, or firmness at the catheter insertion site. Some bruising or slight swelling may be present at thetime of discharge. -Should arm or leg become cold, numb, white, or blue, contact the quill machine tender immediately. -IF you should experience episodes of [...] is recommended. Please call Central Scheduling at [phone] to schedule your appointment.] The attending quill machine tender or [facility] nurse clinician should provide you with specific instructions regarding activity, diet, medications, and further follow up for you. Follow the medication instructions provided on your discharge. If the dosages and instructions on this sheet differ from the dosage and instructions on the bottle, follow the instructions on the bottle. [facility] information [...] appointment.) Documented By: Viviane Loco MD 12/16/21 9921 Signed By: <Electronically signed by Viviane Loco MD> 12/16/21 1629 [facility] Work Phone: 1(806) 543-477704-20-2022 Consult note Author Teo Gongora [facility] December 15, 2021 3:41pm Note Date/Time December 15, 2021 3:[address] [facility] [address] [place] [address] Cardiology Consult Note Signed Patient: Jeanmarie Faria MR#: [id number] : 1965 Acct:[id number] Age/Sex: 56 / F Adm Date: 2 Loc: Room: [address] [place] [address] Type : ADM INOo Attending Dr: Viviane Loco MD Copies to: DO Viviane Paredes MD W Scott Sheldon, DO~ Cardiology HPI History of Present Illness Consult Date: 12/15/21 Reason for Consult: Non-ST elevation KS HPI: Ms. Faria is a 56 year old female seen in interventional cardiology consultationat the request of [facility] attending and hospitalist for non-ST elevation KS. Patient developed severe chest discomfort yesterday, went to [facility] emergencyroom, initial troponins were elevated at 4000 [...] x10E3/uL Lymph # (Auto) 3.8 (1.00-4.8) x10E3/uL Ramsey # (Auto) 1.3 H (0.0-0.8) x10E3/uL Eos [...] signed by Teo Gongora DO> 12/15/21 1541 [facility] Work Phone: 1(617) 118-267804-20-2022 [facility] Progress note Author Viviane Loco [facility] December 15, 2021 1:34pm Note Date/Time December 15, 2021 1:[address] [facility] [address] [place] [address] Hospitalist Progress Note Signed Patient: Jeanmarie Faria MR#: [id number] : 1965 Acct:[id number] Age/Sex: 56 / F Adm Date: 2 Loc: Room: [address] [place] [address] Type : ADM INOo Attending Dr: Viviane [...] elevated myocardial infarction): Plan 1. Non-ST elevation KS, currently patient is asymptomatic Significantly abnormal EKG with elevated troponins Plan for cardiac catheterization 2. Smoker 3. DVT prophylaxis Lovenox Documented By: Viviane Loco MD 12/15/211333 Signed By: <Electronically signed by Viviane Loco MD> 12/15/211333 [facility] Work Phone: 1(286) 723-979604-20-2022 [facility] History and physical note Author Viviane Loco [facility] December 14, 2021 6:12pm Note Date/Time December 14, 2021 6:[address] [facility] [address] [place] [address] Hospitalist H&P Signed Patient: Jeanmarie Faria MR#: [id number] : 1965 Acct:[id number] Age/Sex: 56 / F Adm Date: 2 Loc: Room: [address] [place] [address] Type : ADM IN Attending Dr: Viviane Loco MD Copies to: DO Viviane Paredes MD~ [...] problems. She went to emergency room at [facility]. EKG was done which showed ST [...] elevated myocardial infarction): Plan 1. Non-ST elevation KS, currently patient is asymptomatic Significantly abnormal EKG with elevated troponins Continue with telemetry in PCU, serial cardiac enzymes, check echocardiogram Continue with aspirin, already got at [facility]. Will give Lovenox therapeutic dose. Start statin Consult cardiology Start nitroglycerin patch 2. Smoker 3. DVT prophylaxis Lovenox Documented By: Vivinae Loco MD 12/14/21 6038 Signed By: <Electronically signed by Viviane Loco MD> 12/14/21 1812 [facility] Work Phone: evaluation note* Diagnosis Onset Date Resolution Status NSTEMI (non-ST elevated myocardial infarction) acute Smoker acute [facility] Work Phone: evaluation noteNo assessment information available [facility] Work Phone: evaluation note* Diagnosis Malignant neoplasm of left lung, unspecified part of lung (HCC)- Primary Secondary malignant neoplasm of brain (HCC) Secondary malignant neoplasm of brain and spinal cord [facility] this [facility] Diagnosis Neoplasm of lung- Primary Neoplasm of unspecified nature of respiratory system [facility] this [facility] Diagnosis Neoplasm of lung- Primary Neoplasm of unspecified nature of respiratory system [facility] Diagnosis Malignant neoplasm of left lung, unspecified part of lung (HCC)- Primary [facility] Diagnosis Neoplasm of lung- Primary Neoplasm of unspecified nature of respiratory system [facility] Diagnosis Muscle soreness- Primary Mylagia and myositis, unspecified [facility] Diagnosis Neoplasm of lung- Primary Neoplasm of unspecified nature of respiratory system [facility] this [facility] Diagnosis Smoking greater than 40 pack years- Primary Tobacco use disorder Neoplasm of lung Neoplasm of unspecified nature of respiratory system [facility] Diagnosis Neoplasm of lung- Primary Neoplasm of unspecified nature of respiratory system [facility] this [facility] Diagnosis SVT (supraventricular tachycardia)- Primary Other specified cardiac dysrhythmias Hypertrophic nonobstructive cardiomyopathy (CMS/HCC) Other primary cardiomyopathies ASHD (arteriosclerotic heart disease) Coronary atherosclerosis of unspecified type of vessel, [place] or graft Essential hypertension Unspecified essential hypertension Mixed hyperlipidemia Angina pectoris (CMS/HCC) Other and unspecified angina pectoris Non-small cell cancer of left lung (CMS/HCC) BMI 26.0-26.9,adult documented in this encounter [facility] Work Phone: Evaluation note* Diagnosis Neoplasm [...] doctor or pharmacist, without first calling the quill machine tender who implanted the stent. If you require [...] weight lifting, stair steppers, etc. until the quill machine tender approves these activities. Check with the quill machine tender on your first follow-up visit. CALL YOUR PHYSICIAN at [phone]: -If bleeding should occur from the catheter insertion site- apply pressure to the site then immediately call us. -Report any fever, redness, drainage, increased swelling, or firmness at the catheter insertion site. Some bruising or slight swelling may be present at the time of discharge. -Should arm or leg become cold, numb, white, or blue, contact the quill machine tender immediately. -IF you should experience episodes of [...] is recommended. Please call Central Scheduling at [phone] to schedule your appointment.] The attending quill machine tender or [facility] nurse clinician should provide you with specific instructions regarding activity, diet, medications, and further follow up for you. Follow the medication instructions provided on your discharge. If the dosages and instructions on this sheet differ from the dosage and instructions on the bottle, follow the instructions on the bottle. [facility] is not responsible for incorrect prescription information provided by the patient during their visit. Do not stop your medications without consulting your health care provider. Please take the list with you to your next doctor's appointment.[facility] Work Phone: Progress note Author W Rolan [facility] December 16, 2021 5:24pm Note Date/Time December 16, 2021 5:[address] [facility] [address] [place] [address] Cardiology Progress Note Signed Patient: Jeanmarie Faria MR#: [id number] : 1965 Acct:[id number] Age/Sex: 56 / F Adm Date: 2 Loc: Room: [address] [place] [address] Type : ADM IN Attending Dr: Viviane Loco MD Copies to: ~ Date of Service: 12/16/2021 Subjective Principal diagnosis: Non-ST elevation KS, hypertrophic cardiomyopathy Interval history: Stable status post [...] signed by Teo Gongora, > 12/16/21 1724 [facility] Work Phone: Chief Complaint and Reason for Visit Chief Complaint N Stemi Reason for Visit NSTEMI (non-ST eleva roney myocardial infarction) Smoker Chief Complaint Angina Class 2, ASHD , COB, Hx of KS Advance Directives No Advanced Directives Records Found Advance Directive Response Recorded Date/ Time Advance Directives No December 14, 2 022 3:50pm Chief Complaint * JEANMARIE FARIA is being seen for a 1 month follow-up of. * Patient is a 56-year-old female returns following recent non-ST elevation KS, , Discharged December 16, following revascularization of [...] has a history of heart transplantation in [place], and was sent to a [facility] with similar flulike illness and was diagnosed with influenza. * Patient remains on appropriate postinfarction guideline directed medical therapies, she still smoking 1/2 pack cigarettes a day but is cut back quite a bit. We continue to anger control counselor her extensively on tobacco cessation and [...] She has a history of non-ST elevation KS in November 2021 with two-vessel revascularization involving [...] MDM 60-74 MINUTES Stan Garcia MD, PhD [address] [place] [id number] Referral ID Status Reason Start Date Expiration Date Visits Requested Visits Authorized [id number] Authorized PCP Requested Referral 03/10/2023 03/09/2024 1 1 Specialty Diagnoses / Procedures Referred By Contac t Referred To Contact Oncology Diagnoses Malignant neoplasm of left lung, unspecified part of lung (HCC) Procedures CONSULT TO ONCOLOGY OFFICE/OUTPATIENT NEW HIGH MDM 60-74 MINUTES Stan Garcia MD, PhD [address] [place] [address] Referral ID Status Reason Start Date Expiration Date Visits Requested Visits Authorized [id number] Authorized PCP Requested Referral 03/10/2023 03/09/2024 1 1 Specialty Diagnoses / Procedures Referred By Contac t Referred To Contact MR IMAGING Diagnoses Secondary malignant neoplasm of brain (HCC) Malignant neoplasm of left lung, unspecified part of lung (HCC) Procedures MRI BRAIN WO/W IVCON MRI BRAIN BRAIN STEM W/O W/CONTRAST MATERIAL Stan Garcia MD, PhD [address] [place] [address] Mr Imaging Referral ID Status Reason Start Date Expiration Date Visits Requested Visits Authorized [id number] Pending Review Auto-Generat ed Referral 03/10/2023 04/08/2024 1 1 Specialty Diagnoses / Procedures Referred By Contac t Referred To Contact RADIATION ONCOLOGY Diagnoses Malignant neoplasm of unspecified part of left bronchus or lung Procedures CT SIM PLANNING RADIATION ONCOLOGY THER RAD SIMULAJ-AIDED FIELD SETTING COMPLEX INTENSITY MODULATED RADIATION TX DLVR COMPLEX IMRT 30 fractions Saleem Fitch MD [address] [place] [address] [facility] [address] [place] [address] Referral ID Status Reason Start Date Expiration Date Visits Requested Visits Authorized [id number] Authorized PCP Requested Referral Patient Cleared INN/SMCP Payor Auth Obtained 03/21/2023 06/21/2023 31 31 Specialty Diagnoses / Procedures Referred By Contac t Referred To Contact Diagnoses SVT (supraventricular tachycardia) Procedures ECG 12 Lead Isabel Cagle INVESTMENT TRADER-GAS WELDING EQUIPMENT MECHANIC [facility] [address], [address] [address] Referral ID Status Reason Start Date Expiration Date V isits Requested Visits Authorized [id number] Pending Review 07/11/2023 07/10/2024 1 1 Specialty Diagnoses / Procedures Referred By Contac t Referred To Contact Cardiology Diagnoses Hypertrophic nonobstructive cardiomyopathy (CMS/HCC) ASHD (arteriosclerotic heart disease) Procedures Follow Up In Cardiology Isabel Cagle INVESTMENT TRADER-GAS WELDING EQUIPMENT MECHANIC [facility] 2, [facility] [address] [place] [address] Brett Gongora DO [address] [facility] [address], [address] [address] Referral ID Status Reason Start Date Expiration Date V isits Requested Visits Authorized [id number] Authorized 07/10/2023 07/09/2024 1 1 Additional Source [...] Aris Stewart , Primary Care Provider Active Teo Gongora , DO Attending Provider Active Rough Rice Grader Relationship Specialty Start Date End Date Aris Stewart Sr. [address] [place] [address] PCP - General Family Medicine 03/07/23 Betito Foss [address] [place] [address] Critical Care 03/08/23 Rough Rice Grader Relationship Specialty Start Date End Date Aris Stewart Sr. [address] [place] [address] PCP - General Family Medicine 03/07/23 Betito Foss [address] [place] [address] Critical Care 03/08/23 Rough Rice Grader Relationship Specialty Start Date End Date Aris Stewart Isac Sr. [address] [place] [address] PCP - General Family Medicine 03/07/23 Betito Foss [address] [place] [address] Critical Care 03/08/23 Rough Rice Grader Relationship Specialty Start Date End Date Pat Aris Isac Sr. [address] [place] [address] PCP - General Family Medicine 03/07/23 Betito Foss [address] [place] [address] Critical Care 03/08/23 Rough Rice Grader Relationship Specialty Start Date End Date Pat Aris Isac Sr. [address] [place] [address] PCP - General Family Medicine 03/07/23 Betito Foss [address] [place] [address] Critical Care 03/08/23 Rough Rice Grader Relationship Specialty Start Date End Date Pat Aris Isac Sr. [address] [place] [address] PCP - General Family Medicine 03/07/23 Betito Foss [address] [place] [address] Critical Care 03/08/23 Rough Rice Grader Relationship Specialty Start Date End Date Pat Aris Isac Sr. [address] [place] [address] PCP - General Family Medicine 03/07/23 Betito Foss [address] [place] [address] Critical Care 03/08/23 Rough Rice Grader Relationship Specialty Start Date End Date Pat Aris Isac Sr. [address] [place] [address] PCP - General Family Medicine 03/07/23 Betito Foss [address] [place] [address] Critical Care 03/08/23 Rough Rice Grader Relationship Specialty Start Date End Date Pat Aris Isac Sr. [address] [place] [address] PCP - General Family Medicine 03/07/23 Betito Foss [address] [place] [address] Critical Care 03/08/23 Rough Rice Grader Relationship Specialty Start Date End Date Pat Aris Isac Sr. [address] [place] [address] PCP - General Family Medicine 03/07/23 Betito Foss [address] [place] [address] Critical Care 03/08/23 Rough Rice Grader Relationship Specialty Start Date End Date Aris Stewart Sr. [address] [place] [address] PCP - General Family Medicine 03/07/23 Betito Foss [address] [place] [address] Critical Care 03/08/23 Rough Rice Grader Relationship Specialty Start Date End Date Aris Stewart Sr. [address] [place] [address] PCP - General Family Medicine 03/07/23 Betito Foss [address] [place] [address] Critical Care 03/08/23 Rough Rice Grader Relationship Specialty Start Date End Date Aris Stewart Sr. [address] [place] [address] PCP - General Family Medicine 03/07/23 Betito Foss MD [address] [place] [address] Critical Care 03/08/23 Rough Rice Grader Relationship Specialty Start Date End Date Aris Stewartip Sr. [address] [place], [place] [id number] PCP - General Family Medicine 03/07/23 Betito Foss MD [address] [place] [address] Critical Care 03/08/23 Rough Rice Grader Relationship Specialty Start Date End Date Aris Stewart Sr. [address] [place] [address] PCP - General Family Medicine 03/07/23 Betito Foss MD [address] [place] [address] Critical Care 03/08/23 Rough Rice Grader Relationship Specialty Start Date End Date Aris Stewart, DO [address] [place] [id number] PCP - General 01/25/22 Rough Rice Grader Relationship Specialty Start Date End Date Aris Stewart , DO [address] [place] [address] PCP - General Family Medicine 03/07/23 Betito Foss MD [address] [place] [address] Critical Care 03/08/23 Reason for Visit (unrecogniz [...] tachycardia) Procedures ECG 12 Lead Isabel Cagle, INVESTMENT TRADER-GAS WELDING EQUIPMENT MECHANIC [facility] [address], [address] [address] Referral ID Status Reason Start Date Expiration Date V isits Requested Visits Authorized [id number] Pending Review 07/11/2023 07/10/2024 1 1 Reason Comments Lung Cancer INFORMATION SOURCE (unrecogn ized section and content) DATE CREATED AUTHOR 02/24/2022 [facility] DATE CREATED AUTHOR AUTHOR'S ORGANIZ ATION 08/18/2022 [facility] DATE CREATED AUTHOR AUTHOR'S ORGANIZ ATION 12/30/2022 [employer] DATE CREATED AUTHOR AUTHOR'S ORGANIZ ATION 01/05/2023 [facility] DATE CREATED AUTHOR AUTHOR'S ORGANIZ ATION 04/27/2023 [facility] DATE CREATED AUTHOR AUTHOR'S ORGANIZ ATION 06/20/2023 [facility] DATE CREATED AUTHOR AUTHOR'S ORGANIZ ATION 07/11/2023 [facility] DATE CREATED AUTHOR AUTHOR'S ORGANIZ ATION 08/05/2023 [facility] EPIC DATE CREATED AUTHOR AUTHOR'S ORGANIZ ATION 09/26/2023 [facility] Source Comments (unrecognize d section and content) In the event this informatio n is protected by the Federal Confidentiality of Alcohol and Drug Abuse Patient Records regulations: The Federal rules restrict any use of the information to criminally investigate or prosecute any alcohol or drug abuse patient.[facility] event this information is protected by the Federal Confidentiality of Alcohol and Drug Abuse Patient Records regulations: The Federal rules restrict any use of the information to criminally investigate or prosecute any alcohol or drug abuse patient.[facility] the event this information is protected by the Federal Confidentiality of Alcohol and Drug Abuse Patient Records regulations: The Federal rules restrict any use of the information to criminally investigate or prosecute any alcohol or drug abuse patient.[facility] the event this information is protected by the Federal Confidentiality of Alcohol and Drug Abuse Patient Records regulations: The Federal rules restrict any use of the information to criminally investigate or prosecute any alcohol or drug abuse patient.[facility] the event this information is protected by the Federal Confidentiality of Alcohol and Drug Abuse Patient Records regulations: The Federal rules restrict any use of the information to criminally investigate or prosecute any alcohol or drug abuse patient.[facility] the event this information is protected by the Federal Confidentiality of Alcohol and Drug Abuse Patient Records regulations: The Federal rules restrict any use of the information to criminally investigate or prosecute any alcohol or drug abuse patient.[facility] the event this information is protected by the Federal Confidentiality of Alcohol and Drug Abuse Patient Records regulations: The Federal rules restrict any use of the information to criminally investigate or prosecute any alcohol or drug abuse patient.[facility] the event this information is protected by the Federal Confidentiality of Alcohol and Drug Abuse Patient Records regulations: The Federal rules restrict any use of the information to criminally investigate or prosecute any alcohol or drug abuse patient.[facility] the event this information is protected by the Federal Confidentiality of Alcohol and Drug Abuse Patient Records regulations: The Federal rules restrict any use of the information to criminally investigate or prosecute any alcohol or drug abuse patient.[facility] the event this information is protected by the Federal Confidentiality of Alcohol and Drug Abuse Patient Records regulations: The Federal rules restrict any use of the information to criminally investigate or prosecute any alcohol or drug abuse patient.[facility] the event this information is protected by the Federal Confidentiality of Alcohol and Drug Abuse Patient Records regulations: The Federal rules restrict any use of the information to criminally investigate or prosecute any alcohol or drug abuse patient.[facility] the event this information is protected by the Federal Confidentiality of Alcohol and Drug Abuse Patient Records regulations: The Federal rules restrict any use of the information to criminally investigate or prosecute any alcohol or drug abuse patient.[facility] the event this information is protected by the Federal Confidentiality of Alcohol and Drug Abuse Patient Records regulations: The Federal rules restrict any use of the information to criminally investigate or prosecute any alcohol or drug abuse patient.[facility] the event this information is protected by the Federal Confidentiality of Alcohol and Drug Abuse Patient Records regulations: The Federal rules restrict any use of the information to criminally investigate or prosecute any alcohol or drug abuse patient.[facility] the event this information is protected by the Federal Confidentiality of Alcohol and Drug Abuse Patient Records regulations: The Federal rules restrict any use of the information to criminally investigate or prosecute any alcohol or drug abuse patient.[facility] the event this information is protected by the Federal Confidentiality of Alcohol and Drug Abuse Patient Records regulations: The Federal rules restrict any use of the information to criminally investigate or prosecute any alcohol or drug abuse patient.[facility] the event this information is protected by the Federal Confidentiality of Alcohol and Drug Abuse Patient Records regulations: The Federal rules restrict any use of the information to criminally investigate or prosecute any alcohol or drug abuse patient.[facility] the event this information is protected by the Federal Confidentiality of Alcohol and Drug Abuse Patient Records regulations: The Federal rules restrict any use of the information to criminally investigate or prosecute any alcohol or drug abuse patient.[facility] FOR RECORDS PERTAINING TO PATIENTS WHO ARE [...] BE BASED ON THE PRIMARY CLINICAL RECORDS. [employer] [facility]. provides no warranty or guarantee of the accuracy or completeness of information in this document.
--- NOTE | 2023-10-16 08:35 | CT_ITS ---
[address] [address] Patient Name: JEANMARIE ECHEVARRIA MRN: [id number] date: 1965 Sex: F Assigned Patient Location: CT Current Patient Location: CT Accession/Order Number: [id number] Exam Date: 10/16/2023 09:50 Report Date: 10/16/2023 11:25 At the request of: BROCK RODNEY Procedure: CT chest w con EXAMINATION: CT chest w con, CT abdomen pelvis w con HISTORY: Malignant Neoplasm Of Lung C34.92, Elevated White Count COMPARISON: CTA chest 06/20/2023 TECHNIQUE: Axial, Coronal, and Sagittal CT images were obtained without and/or with IV contrast as indicated by examination type. Dose reduction techniques were achieved by using automated exposure control and/or adjustment of mA and/or kV according to patient size and/or use of iterative reconstruction technique. FINDINGS: LUNGS: 4.4 cm area of patchy infiltrates within base of right upper lobe. Mild infiltrates within posterior base of left upper lobe. Atelectasis/partial consolidation of left lower lobe basilar segments; patent bronchi. PLEURA: No mass or effusion. VASCULATURE: No visible pulmonary arterial thrombus or attenuation. SHANIA: No mass or adenopathy. MEDIASTINUM: No mass or adenopathy. CARDIAC: No enlargement, pericardial thickening, or pericardial effusion. CHEST WALL: Port-A-Cath within right chest wall with distal catheter tip just into the superior vena cava at the subclavian-innominate vein anastomosis. No mass or axillary adenopathy. LIVER: No enlargement, atrophy, abnormal density, or significant focal lesion. BILIARY: No dilatation or calcification. PANCREAS: No lesion, fluid collection, ductal dilatation, or atrophy. SPLEEN: No enlargement or focal lesion. ADRENALS: No mass or enlargement. KIDNEYS: A few small nonenhancing cysts favoring benign etiology. Nonobstructing 2 mm stone within right kidney. BOWEL/MESENTERY: No visible mass, obstruction, or bowel wall thickening. AORTA/VASCULAR: Marked atherosclerotic disease of distal aorta and iliac arteries. No aneurysm. RETROPERITONEUM: No mass or adenopathy. LYMPH NODES: No adenopathy. URINARY BLADDER: No visible focal wall thickening, lesion, or calculus. PELVIC ORGANS: No visible mass. Pelvic organs appropriate for patient age. ABDOMINAL WALL: No mass or hernia. BONES: No bony lesion or fracture. OTHER: Negative. CT/CT chest w con IMPRESSION: 1. Within right upper lobe is a 4.4 cm area of dense infiltrate suspected represent pneumonia. Mild infiltrates suspected within base of left upper lobe. Neoplastic process cannot be excluded; follow-up CT chest in 1 month is recommended to document clearing. 2. Grossly stable partial consolidation of left lower lobe basilar segments with patent bronchi, nonspecific. No appreciable mass. 3. No lymphadenopathy. 4. Nonobstructing right nephrolithiasis. 5. Marked atherosclerotic disease of distal aorta and iliac arteries. Electronically authenticated by: MARIANN MARQUES Date: 10/16/2023 11:25
--- NOTE | 2023-10-16 08:35 | CT_ITS ---
[address] [address] Patient Name: JEANMARIE ECHEVARRIA MRN: [id number] date: 1965 Sex: F Assigned Patient Location: CT Current Patient Location: CT Accession/Order Number: [id number] Exam Date: 10/16/2023 09:50 Report Date: 10/16/2023 11:25 At the request of: BROCK RODNEY Procedure: CT abdomen pelvis w con EXAMINATION: CT chest w con, CT abdomen pelvis w con HISTORY: Malignant Neoplasm Of Lung C34.92, Elevated White Count COMPARISON: CTA chest 06/20/2023 TECHNIQUE: Axial, Coronal, and Sagittal CT images were obtained without and/or with IV contrast as indicated by examination type. Dose reduction techniques were achieved by using automated exposure control and/or adjustment of mA and/or kV according to patient size and/or use of iterative reconstruction technique. FINDINGS: LUNGS: 4.4 cm area of patchy infiltrates within base of right upper lobe. Mild infiltrates within posterior base of left upper lobe. Atelectasis/partial consolidation of left lower lobe basilar segments; patent bronchi. PLEURA: No mass or effusion. VASCULATURE: No visible pulmonary arterial thrombus or attenuation. SHANIA: No mass or adenopathy. MEDIASTINUM: No mass or adenopathy. CARDIAC: No enlargement, pericardial thickening, or pericardial effusion. CHEST WALL: Port-A-Cath within right chest wall with distal catheter tip just into the superior vena cava at the subclavian-innominate vein anastomosis. No mass or axillary adenopathy. LIVER: No enlargement, atrophy, abnormal density, or significant focal lesion. BILIARY: No dilatation or calcification. PANCREAS: No lesion, fluid collection, ductal dilatation, or atrophy. SPLEEN: No enlargement or focal lesion. ADRENALS: No mass or enlargement. KIDNEYS: A few small nonenhancing cysts favoring benign etiology. Nonobstructing 2 mm stone within right kidney. BOWEL/MESENTERY: No visible mass, obstruction, or bowel wall thickening. AORTA/VASCULAR: Marked atherosclerotic disease of distal aorta and iliac arteries. No aneurysm. RETROPERITONEUM: No mass or adenopathy. LYMPH NODES: No adenopathy. URINARY BLADDER: No visible focal wall thickening, lesion, or calculus. PELVIC ORGANS: No visible mass. Pelvic organs appropriate for patient age. ABDOMINAL WALL: No mass or hernia. BONES: No bony lesion or fracture. OTHER: Negative. CT/CT abdomen pelvis w con IMPRESSION: 1. Within right upper lobe is a 4.4 cm area of dense infiltrate suspected represent pneumonia. Mild infiltrates suspected within base of left upper lobe. Neoplastic process cannot be excluded; follow-up CT chest in 1 month is recommended to document clearing. 2. Grossly stable partial consolidation of left lower lobe basilar segments with patent bronchi, nonspecific. No appreciable mass. 3. No lymphadenopathy. 4. Nonobstructing right nephrolithiasis. 5. Marked atherosclerotic disease of distal aorta and iliac arteries. Electronically authenticated by: MARIANN MARQUES Date: 10/16/2023 11:25
[2023-10-16] MEDS: HEPARIN SODIUM (PORCINE) PF LOCK FLUSH 500 UNIT/5 ML SYRINGE IV (10:15)
--- NOTE | 2023-10-16 10:29 | PC.NURSE ---
1000 Verified pt has a power port with prior visit 2022. Swabbed site with chloraprep for 30 seconds and accessed it with Meneses needle. Pt states sometimes they don't get a blood return. Flushed port with NS 10 cc easily. Pt able to taste and smell saline. No blood return. Secured with Tegaderm. Pt given IV contrast during CT and tolerated well. Port flushed with 10 cc NS and then 5 ml Heparin. Meneses needle removed intact.
== END 2023-10-16 08:28 | disposition home or self-care (01) ==
LOC: CT 08:27
PROVIDERS: PCP Internal Medicine; Visit Provider Internal Medicine Hematology & Oncology
DX: C34.92 Malignant neoplasm of unspecified part of left bronchus or lung (principal); D72.829 Elevated white blood cell count, unspecified; D64.9 Anemia, unspecified; R11.2 Nausea with vomiting, unspecified; Z51.11 Encounter for antineoplastic chemotherapy; Z51.12 Encounter for antineoplastic immunotherapy; D72.820 Lymphocytosis (symptomatic)
CPT/HCPCS: 71260; 74177; A4648; J1642; Q9967

== ENCOUNTER 2023-10-24 07:28 | Outpatient (RCR) | payer OTHER, SELFPAY ==
[2023-10-10 08:31] VITALS: BP 112/77; PULSE 54; RESP 16; TEMP 36.3; O2SAT 93
[2023-10-10 08:48] LABS: Basophils Absolute Auto 0.1 10^3/uL (0.0-0.1); Basophils Percent Auto 0.8 % (0.2-2.0); Eosinophils Absolute Auto 0.1 10^3/uL (0.0-0.7); Eosinophils Percent Auto 1.4 % (0.9-7.0); Hematocrit 38.7 % (36.0-48.0); Hemoglobin 12.4 g/dL (12.0-16.0); Immature Granulocytes Abs Auto 0.02 10^3/uL (0.00-0.03); Immature Granulocytes Pct Auto 0.2 % (0.0-0.5); Lymphocytes Absolute Auto 2.4 10^3/uL (1.2-3.8); Lymphocytes Percent Auto 27.7 % (20.5-60.0); Mean Corpuscular Volume 90.4 fL (81.0-99.0); Mean Platelet Volume 9.3 fL (9.5-13.5); Monocytes Absolute Auto 1.2 10^3/uL (0.3-0.8); Monocytes Percent Auto 13.2 % (1.7-12.0); Neutrophils Percent Auto 56.7 % (43.0-75.0); Platelet Count 341 10^3/uL (150-450); Red Blood Count 4.28 10^6/uL (4.20-5.40); Red Cell Distribution Width 14.7 % (11.0-15.0); White Blood Count 8.7 10^3/uL (4.0-11.0)
[2023-10-10 08:56] LABS: Alanine Aminotransferase 26 U/L (14-59); Albumin Globulin Ratio 0.8; Albumin Level 3.1 g/dL (3.4-5.0); Alkaline Phosphatase 184 U/L (46-116); Anion Gap 13.1; Aspartate Amino Transferase 23 U/L (15-37); BUN Creatinine Ratio 21.5; Bilirubin Total 0.2 mg/dL (0.2-1.0); Carbon Dioxide 25.7 mmol/L (21.0-32.0); Chloride 107 mmol/L (98-107); Estimated GFR (African America >60 (>=60); Estimated GFR (Non-African Ame >60 (>=60); Globulin 4.1 g/dL; Glucose 101 mg/dL (74-106); Potassium 3.8 mmol/L (3.5-5.1); Sodium 142 mmol/L (136-145); Total Protein 7.2 g/dL (6.4-8.2)
[2023-10-10] MEDS: HEPARIN SODIUM (PORCINE) PF LOCK FLUSH 500 UNIT/5 ML SYRINGE IV (09:30)
[2023-10-24 08:23] VITALS: BP 147/80; PULSE 60; RESP 18; TEMP 36.3; O2SAT 95
[2023-10-24 08:25] LABS: Basophils Absolute Auto 0.1 10^3/uL (0.0-0.1); Basophils Percent Auto 0.7 % (0.2-2.0); Eosinophils Absolute Auto 0.1 10^3/uL (0.0-0.7); Hematocrit 37.9 % (36.0-48.0); Hemoglobin 12.2 g/dL (12.0-16.0); Immature Granulocytes Pct Auto 0.7 % (0.0-0.5); Lymphocytes Absolute Auto 2.4 10^3/uL (1.2-3.8); Lymphocytes Percent Auto 17.7 % (20.5-60.0); Mean Corpuscular HGB Conc 32.2 g/dL (29.9-35.2); Mean Corpuscular Hemoglobin 28.8 pg (26.7-34.0); Mean Corpuscular Volume 89.6 fL (81.0-99.0); Mean Platelet Volume 9.9 fL (9.5-13.5); Monocytes Absolute Auto 1.4 10^3/uL (0.3-0.8); Monocytes Percent Auto 10.3 % (1.7-12.0); Neutrophils Absolute Auto 9.4 10^3/uL (1.4-6.5); Neutrophils Percent Auto 69.6 % (43.0-75.0); Platelet Count 323 10^3/uL (150-450); Red Blood Count 4.23 10^6/uL (4.20-5.40); Red Cell Distribution Width 15.9 % (11.0-15.0); White Blood Count 13.5 10^3/uL (4.0-11.0)
--- NOTE | 2023-10-24 08:30 | PC.NURSE ---
0805 Arrival ambulatory, had appt with Dr. Nair this am. 0815 port accessed per Juwan RN, see documentation
[2023-10-24 08:41] LABS: Alanine Aminotransferase 27 U/L (14-59); Albumin Globulin Ratio 0.8; Albumin Level 3.2 g/dL (3.4-5.0); Alkaline Phosphatase 188 U/L (46-116); Anion Gap 13.6; Aspartate Amino Transferase 17 U/L (15-37); BUN Creatinine Ratio 16.4; Bilirubin Total 0.3 mg/dL (0.2-1.0); Calcium 8.6 mg/dL (8.5-10.1); Carbon Dioxide 29.7 mmol/L (21.0-32.0); Chloride 103 mmol/L (98-107); Estimated GFR (African America >60 (>=60); Estimated GFR (Non-African Ame >60 (>=60); Globulin 3.8 g/dL; Glucose 103 mg/dL (74-106); Potassium 3.3 mmol/L (3.5-5.1); Sodium 143 mmol/L (136-145)
[2023-10-24] MEDS: 0.9 % SODIUM CHLORIDE 250 ML 10 ML IV (09:26)
[2023-10-24] MEDS: POTASSIUM CHLORIDE 20 MEQ in 0.9 % SODIUM CHLORIDE 250 ML 130 MEQ IV (09:27)
--- NOTE | 2023-10-24 09:28 | PC.NURSE ---
eating breakfast, iv potassium infusion initiated.
[2023-10-24] MEDS: SODIUM CHLORIDE 0.9% IV (10:51)
[2023-10-24] MEDS: DURVALUMAB IV (10:51)
--- NOTE | 2023-10-24 11:27 | PC.NURSE ---
tolerating infusion without difficulty reclined in chair, eyes closed
[2023-10-24] MEDS: HEPARIN SODIUM (PORCINE) PF LOCK FLUSH 500 UNIT/5 ML SYRINGE IV (11:55)
--- NOTE | 2023-10-24 14:01 | PC.NURSE ---
1155 infusion completed, port a cath flushed, heparinized, deaccessed, tolerated well. Released ambulatory
== END 2023-10-26 23:59 | disposition home or self-care (01) ==
LOC: INF 07:28
PROVIDERS: PCP Internal Medicine; Visit Provider Internal Medicine Hematology & Oncology
DX: Z51.11 Encounter for antineoplastic chemotherapy (principal); C34.92 Malignant neoplasm of unspecified part of left bronchus or lung; D72.829 Elevated white blood cell count, unspecified; D64.9 Anemia, unspecified; R11.2 Nausea with vomiting, unspecified; D72.820 Lymphocytosis (symptomatic); Z90.710 Acquired absence of both cervix and uterus; Z90.49 Acquired absence of other specified parts of digestive tract; J44.9 Chronic obstructive pulmonary disease, unspecified; I10 Essential (primary) hypertension; K21.9 Gastro-esophageal reflux disease without esophagitis; I25.2 Old myocardial infarction; Z95.5 Presence of coronary angioplasty implant and graft; Z87.891 Personal history of nicotine dependence; D69.59 Other secondary thrombocytopenia; T45.1X5A Adverse effect of antineoplastic and immunosuppressive drugs, initial encounter
CPT/HCPCS: 36591; 71046; 80053; 85025; 96366; 96368; 96413; G0463; J3480; J9173

== ENCOUNTER 2023-11-07 08:12 | Outpatient (REF) | payer OTHER, SELFPAY ==
--- OUTSIDE RECORDS SUMMARY | 2023-11-07 08:17 | XMS_ITS | CCD ---
Author Name Unknown Address [address] [place] [address] Organization [facility] Care Team Prov[facility] Controls Engineer Name Role Phone MD Viviane Loco Admit [...] Admitting Unavailable PAT, DR HURST Consulting Unavailable TIPTON, DR HURST Attending Unavailable TIPTON, DR HURST Primary Care Unavailable Abelardo Flannery Consulting Unavailable HOUSE, DR HURST Attending Unavailable HOUSE, DR HURST Admitting Unavailable HOUSE, DR HURST Primary Care Unavailable [place], DR ABELARDO Johnson Consulting Unavailable HOUSE, DR [...] Unavailable Pat, DO Hurst Primary Care Provider [phone] Rolan, DO Teo Aguilar Attending Provider Aris Stewart [facility] Unavailable Rolan, Teo Aguilar Attending Unavailable Rolan, Teo Aguilar Admitting Unavailable Frederic Sr., Aris [facility] Provider Gino, Betito A Unavailable [phone] Neetu Gongora, Dr. Brett Aguilar Attending Unava ilable Pat, Dr. Aris Chau [facility] Unava ilable Rolan, Dr. Brett Aguilar Referring Unava ilable Rolan, Dr. Brett Aguilar Attending Unava ilable Pat, Dr. Aris Chau [facility] Unava ilable Rolan, Dr. Brett Aguilar Attending Unava ilable Pat, Dr. Aris Chau [facility] Unava ilable Rolan, Dr. Brett Aguilar Attending Unava ilable Pat, Dr. Aris Chau [facility] Unava ilable Rolan, Dr. Brett Aguilar Referring Unava ilable Rolan, Dr. Brett Aguilar Attending Unava ilable Pat, Dr. Aris Chau [facility] Unava illinus Foss MD, Betito A Unavailable [phone] OMMANJINDER, BETITO Referring Unavailable OMBALLI, MOHJEREMIAS Referring Unavailable OMBALLI, MOHAMED Referring Unavailable OMBALLI, BETITO Attending Unavailable JENNIFER, ARCHANA Referring Unavailable OMBALLI, MOHAMED Attending Unavailable OMBALLI, MOHAMED Referring Unavailable SYDNEE, MARIELLE Referring Unavailable OMBALLI, MOHAMED Attending Unavailable JENNIFER, APOORA Referring Unavailable OMBALLI, MOHAMED Referring Unavailable OMBALLI, MOHAMED Attending Unavailable OMBALLI, MOHAMED Referring Unavailable OMBALLI, MOHAMED Referring Unavailable House DO, Aris [facility] Primary Care Provider ISABEL CAGLE Attending Unavailable HOUSE, [facility] Unavailab le House Sr., DO, [facility] Prov ider SHAIKH MORA Attending Unavailable HOUSE SR, [facility] Unavai lable LITTLE, SALEEM Referring Unavailable HOUSE SR, [facility] Unavai lable LITTLE, SALEEM Attending Unavailable HOUSE SR, [facility] Unavai lable LITTLE, SALEEM Referring Unavailable HOUSE SR, [facility] Unavai lable LITTLE, SALEEM Attending Unavailable HOUSE SR, [facility] Unavai lable LITTLE, SALEEM Referring Unavailable HOUSE SR, [facility] Unavai lable LITTLE, SALEEM Attending Unavailable HOUSE SR, [facility] Unavai lable LITTLE, SALEEM Attending Unavailable LITTLE, SALEEM Referring Unavailable HOUSE SR, [facility] Unavai lable LITTLE, SALEEM Referring Unavailable HOUSE SR, [facility] Unavai lable LITTLE, SALEEM Referring Unavailable HOUSE SR, [facility] Unavai lable LITTLE, SALEEM Referring Unavailable JENNIFER, ARCHANA Referring Unavailable HOUSE SR, [facility] Unavai lable LITTLE, SALEEM Attending Unavailable JENNIFER, ARCHANA Referring Unavailable HOUSE SR, [facility] Unavai lable LITTLE, SALEEM Attending Unavailable HOUSE SR, [facility] Unavai lable LITTLE, SALEEM Referring Unavailable HOUSE SR, [facility] Unavai lable LITTLE, SALEEM Attending Unavailable HOUSE SR, [facility] Unavai lable LITTLE, SALEEM Referring Unavailable HOUSE SR, [facility] Unavai lable LITTLE, SALEEM Attending Unavailable HOUSE SR, [facility] Unavai lable LITTLE, SALEEM Referring Unavailable HOUSE SR, ARIS [facility] Care Unavai lable LITTLE, SALEEM Referring Unavailable HOUSE SR, ARIS [facility] Unavai lable LITTLE, SALEEM Referring Unavailable HOUSE SR, [facility] Unavai lable HOUSE SR, ARIS [facility] Unavai lable HOUSE SR, [facility] Unavai lable HOUSE SR, [facility] Unavai lable LITTLE, SALEEM Referring Unavailable HOUSE SR, [facility] Unavai lable LITTLE, SALEEM Referring Unavailable HOUSE SR, [facility] Unavai lable LITTLE, SALEEM Referring Unavailable HOUSE SR, [facility] Unavai lable LITTLE, SALEEM Referring Unavailable LITTLE, SALEEM Attending Unavailable HOUSE SR, [facility] Unavai lable LITTLE, SALEEM Referring Unavailable HOUSE SR, [facility] Unavai lable LITTLE, SALEEM Referring Unavailable HOUSE SR, [facility] Unavai lable LITTLE, SALEEM Referring Unavailable HOUSE SR, [facility] Unavai lable LITTLE, SALEEM Referring Unavailable HOUSE SR, [facility] Unavai lable HOUSE SR, [facility] Unavai lable LITTLE, SALEEM Referring Unavailable HOUSE SR, [facility] Unavai lable LITTLE, SALEEM Attending Unavailable HOUSE SR, [facility] Unavai lable LITTLE, SALEEM Attending Unavailable HOUSE SR, [facility] Unavai lable LITTLE, SALEEM Referring Unavailable HOUSE SR, [facility] Unavai lable LITTLE, SALEEM Referring Unavailable HOUSE SR, [facility] Unavai lable LITTLE, SALEEM Referring Unavailable HOUSE SR, [facility] Unavai lable LITTLE, SALEEM Referring Unavailable HOUSE SR, [facility] Unavai lable LITTLE, SALEEM Referring Unavailable HOUSE SR, [facility] Unavai lable LITTLE, SALEEM Referring Unavailable HOUSE SR, [facility] Unavai lable LITTLE, SALEEM Referring Unavailable HOUSE SR, [facility] Unavai lable LITTLE, SALEEM Referring Unavailable HOUSE SR, [facility] Unavai lable LITTLE, SALEEM Attending Unavailable HOUSE SR, [facility] Mona avalos LITTLE, SALEEM Attending Unavailable TIPTON SR, [facility] Mona debbijorge alberto LITTLE, SALEEM Referring Unavailable TIPTON SR, [facility] Mona debbijorge alberto LITTLE, SALEEM Referring Unavailable TIPTON SR, [facility] Mona debbijorge alberto LITTLE, SALEEM Referring Unavailable TIPTON SR, [facility] Mona debbijorge alberto LITTLE, SALEEM Referring Unavailable Allergies Allergy Classification Reported Allergen(s) Allergy Type Date of Onset Reaction(s) Facility (5 sources) Codeine; 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: [Codeine] Drug Allergy 06-16-2016 [facility] Medications Current Medications Medication Drug Class(es) Dates [...] mouth. 0 Active take 1 capsule by [facility] twice daily before mealtime omeprazole (PriLOSEC) 20 [...] to 7 days. May alternate with Tylenol/Motrin. [id number] 200 actuat albuterol 0.09 mg/actuat metered dose inhaler (18 sources) beta2-Adrenergic Agonist Start: 02-21-2023 take 2 puff(s) by mouth every six hours albuterol HFA (PROVENTIL HFA, VENTOLIN HFA) 90 mcg/actuation inhaler inhale 2 puffs by mouth and INTO THE LUNGS every 6 hours if neede... (REFER TO PRESCRIPTION NOTES). 0 02/21/2023 Active Comment on above: inhale 2 puffs by mo [facility] and INTO THE LUNGS every 6 [...] / neomycin 3.5 mg/ml / polymyxin b [id number] unt/ml otic suspension (2 sources) Aminoglycoside Antibacterial, Polymyxin-class Antibacterial, Corticosteroid Start: 02-18-2022 Xmpembjo-Gdptihyse-NG 3.5-04116-2 Otic Suspension Quantity: 10 Refills: 0 Ordered: [...] [Coronary atherosclerosis of unspecified type of vessel, o[place]e-[place] or graft] Onset: 2 12-30-2022 Chronic Coronary atherosclerosis and other heart disease (6 sources) Patient post percutaneous transluminal coronary angioplasty; 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: [Percutaneous transluminal coronary angioplasty status] Onset: 2 07-07-2023 Episodic Disorders of lipid metabolism (4 sources) Mixed hyperlipidemia; 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: [Mixed hyperlipidemia] Onset: 3 07-10-2023 Chronic Essential hypertension (7 sources) Essential (primary) hypertension; 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: [Essential hypertension] Onset: 2 12-30-2022 Chronic Other aftercare (1 source) 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 09-25-2023 CNPN Telephone (THORMN) -- JEANMARIE FRAIA ([id number]) 1965 F Date Time Provider Department 09/25/23 STAN GARCIA During your visit today, we recorded the following information about you: Alber Fernandez 09/25/2023 1:54 PM Signed Received Hem/Onc office notes 09/19/23 from [facility] Record scanned in Epic Alber Fernandez, insurance administrative assistant Allergies As of Date: 09/25/2023 (No Known Allergies) Date Reviewed: 07/13/2023 Reviewed by: Toney Bailon LPN - Fully Assessed Reason for Visit: Received Outside Medical Records [[id number]] Prescriptions as of 09/25/2023 - buPROPion XL [...] Status:Closed by ALBER FERNANDEZ on 09/25/23 Normal [facility] CNOVon 07-13-2023 CNOV Office Visit (RADTSA ) -- JEANMARIE FARIA ([id number]) 1965 F Date Time Provider Department 07/13/23 [...] in coordination with Dr. Rodriguez at the [facility] on 05/11/2023 (6,000 cGy delivered in 30 fractions with concurrent carboplatin/paclitaxel). INTERVAL HISTORY/ROS: Ms. Faria returns to clinic today for routine follow-up approximately two months after the completion of her radiation treatments. In the interim, she was hospitalized shortly after completion of treatment for pneumonia and arrhythmia (tachycardia). Since discharge she has been on supplemental oxygen ctjyuy-bps-omzvv via nasal cannula at 2 L/min. She feels that her cough is improved and denies any hemoptysis but still has some tightness in the chest with deep breaths. She denies any esophagitis that she is swallowing well. She is seeing a material processor and is currently on a nebulizer 3 [...] in coordination with Dr. Rodriguez at the [facility] on 05/11/2023 (6,000 cGy delivered in 30 fractions with concurrent carboplatin/paclitaxel). Ms. Faria continues to recover from the acute toxicities of her recent course of chemoradiation which was complicated by recent hospitalization for pneumonia. She is showing slow improvement but continues to require supplemental oxygen and will follow with her material processor plans for PFTs as well as pulmonary rehab. Initial posttreatment imaging with PET/CT from 07/07/2023 shows exce (more content not included)... [facility] JEANMARIE FARIA ([id number]) 1965 F Date Time Provider Department 06/27/23 [facility] During your visit today, we recorded the [...] PM Signed Patient pet was approved through [place] she is scheduled this Monday for scan and I did schedule her a followup for next week. thanks Allergies As of Date: 06/27/2023 (No Known Allergies) Date Reviewed: 05/10/2023 Reviewed by: Nilsa Deal, BURTON - Fully Assessed Reason for Visit: Appointment Confirmation [[id number]] Primary Visit Diagnosis:Malignant neoplasm of unspecified part of unspecified bronchus or lung (HCC) [C34.90] Order(s):NM PET/CT SKULL-THIGH SUBSEQUENT [[id number]] Order #: [id number] FUTURE Prescriptions as of 07/03/2023 - prochlorperazine [...] Encounter Status:Closed by PINO ALBRECHT on 06/29/23 [facility] CONSULTon 06-19-2023 CONSULT ------ -- Attestation [...] for recheck of EKG Maritza Pardo MD [place] [facility] -- Cardiology Consult Note Reason for [...] history of COPD (chronic obstructive pulmonary disease) ([facility]), Coronary artery disease, Diverticulosis, GERD (gastroesophageal reflux disease), History of transfusion, Hyperlipidemia, Hypertension, Irritable bowel syndrome, Mediastinal mass, Myocardial infarction ([facility]) (11/2021), and Spastic colon. [...] Onset Heart failure Mother Diabetes Mother Other (VT) Mother Hypertension Mother Allergies Patient has no [...] Value Ventricular Rate 99 Atrial Rate 99 NE Interval 150 QRS DURATION 86 QT Interval 362 QTC CALCULATION(BAZETT) 464 P [place] 32 R-[place] 20 T Wave [place] 170 Impression Sinus rhythm with Premature atrial [...] diffuse tracheobronchomalacia that (more content not included)... [facility] 06-19-2023 ------ -- Attestation signed by Betito Foss MD at 06/19/2023 11:56 AM Re-explained the procedure to the patient along with the associated risk of pneumothorax, bleeding, hypoxia, and respiratory failure. Patient is agreeable and will proceed with the scheduled bronchoscopy and stent revision/removal Betito Foss MD Interventional Pulmonary Medicine Pulmonary and Critical Care Medicine [facility] Physicians -- H&P reviewed. The patient was [...] in details, she is agreeable. Consent obtained. [facility] Orders Onlyon 06-19-2023 Orders Only [id number] Cyndee Faria 1965 F Date Provider Department Center 06/19/2023 LITTLE RAZOESH [facility] CARD Flo Grimm Family History Problem Relation Age of Onset Heart failure Mother Diabetes Mother Other Mother Hypertension Mother Family Status - Relation Status Age at Mother Normal [facility] POCT GLUCOSE METER UNSOLICIT ED RESULTSon 06-19-2023 Glucose [Mass/Vol] 100 mg/dL Normal 70-105 [facility] ela [facility] Comment on above: Order Comment: Waive d Testing in the ED is performed under the ED CLIA certificate #[id number]. Result Comment: ltol les Performed By: #### L [id number] ####[facility] ([facility])[address] [place] [address] Orders Onlyon 06-16-2023 Orders Only [id number] Cyndee Faria da 1965 [facility] Center 06/16/2023 TOYIN CRENSHAW RUST PAT [facility] Family History Problem Relation Age of Onset Heart failure Mother Diabetes Mother Other Mother Hypertension Mother Family Status - Relation Status Age at Mother Normal [facility] HPon 06-15-2023 HP ------ -- [...] Age: 57 y.o. : 1965 Account No.: [id number] Chief complaint: Stent reversion HPI Jeanmarie Faria [...] was initiated by the patient and conducted ucr-ejyk-vz-face with use of audio-only real time telephone communication between patient and provider for a virtual visit. Verbal consent to provide and bill for this service was obtained on 06/15/2023. No signature was obtained due to the COVID-19 pandemic. Julio Taylor Pulmonary and critical care fellow [facility]. 06/15/23 11:39 AM Normal [facility] Telemedicineon 06-15-2023 Telemedicine [id number] Cyndee Faria 1965 F Date Provider Department Center 06/15/2023 383-BETITO FOSS DCC ONC DCC Family History Problem Relation Age of Onset Heart failure Mother Diabetes Mother Other Mother Hypertension Mother Family Status - Relation Status Age at Mother Level of Service:17611 NE PHYS/QHP TELEPHONE EVALUATION 21-30 MIN () Reason for Visit and Comments: tracheal mass [Other] - Tracheal stent placed in February [address] Foss for tracheal mass. Dr Rodriguez would like patient bronched for EBUS restaging. Notes scanned into media. CT done 05-29-23. Films in EPIC [facility] E[facility] Telephone (RADTSA) -- JEANMARIE FARIA ([id number]) 1965 F Date Time Provider Department 06/01/23 SALEEM FITCH During your visit today, we recorded the following information about you: Toney Bailon LPN 06/01/2023 9:54 AM Signed I called to get a post radiation therapy update from Jeanmarie. She states she is currently inpatient at [facility] with pneumonia. She will call our office [...] Encounter Status:Closed by TONEY BAILON on 06/01/23 [facility] Candido 05-11-2023 [facility] Telephone (WIQ) -- JEANMARIE FARIA ([id number]) 1965 F Date Time Provider Department 05/11/23 RYAN BAIN During your visit today, we recorded the following information about you: Ryan Bain, [facility] 05/11/2023 2:56 PM Signed Smoking Cessation Navigation Outcome of contact: Left Message Comments: A voicemail has been left for this patient regarding Tobacco Cessation support options. If this patient has any further questions they can email us at or call us at [phone]. Spiracurth Rod Finisher/Smoking Cessation Navigator: [facility] [...] Encounter Status:Closed by RYAN BAIN on 05/11/23 [facility] CNOVon 05-10-2023 CNOV Office Visit (RADTSA ) -- JEANMARIE FARIA ([id number]) 1965 F Date Time Provider Department 05/10/23 [...] Encounter Status:Closed by SALEEM FITCH on 05/23/23 [facility] CNOVmerced 05-03-2023 CNOV Office Visit (RADTSA ) -- JEANMARIE FARIA ([id number]) 1965 F Date Time Provider Department 05/03/23 [...] Encounter Status:Closed by SALEEM FITCH on 05/16/23 [facility] Paul 04-26-2023 CNOV Office Visit (RADTSA ) -- JEANMARIE FARIA ([id number]) 1965 F Date Time Provider Department 04/26/23 [...] of lung [D49.1] Order(s):CONSULT TO SMOKING CESSATION [[id number]] Order #: [id number]: 1 Prescriptions as of 05/09/2023 - prochlorperazine [...] Encounter Status:Closed by SALEEM FITCH on 05/09/23 [facility] CNOVon 04-19-2023 CNOV Office Visit (RADTSA ) -- JEANMARIE FARIA ([id number]) 1965 F Date Time Provider Department 04/19/23 [...] Encounter Status:Closed by SALEEM FITCH on 05/02/23 [facility] CNOVon 04-18-2023 CNOV Office Visit (HEMASA ) -- JEANMARIE FARIA ([id number]) 1965 F Date Time Provider Department 04/18/23 [...] Encounter Status:Closed by BRI BERNARD on 04/18/23 [facility] MARGIEOVmerced 04-12-2023 CNOV Office Visit (RADTSA ) -- JEANMARIE FARIA ([id number]) 1965 F Date Time Provider Department 04/12/23 [...] - amoxicillin-clavulani (more content not included)... Normal [facility] 04-11-2023 CNPN Telephone (RADTSA) -- JEANMARIE FARIA ([id number]) 1965 F Date Time Provider Department 04/11/23 [...] Encounter Status:Closed by NILSA DEAL on 04/11/23 [facility] Paul 04-05-2023 CNOV Office Visit (RADTSA ) -- JEANMARIE FARIA ([id number]) 1965 F Date Time Provider Department 04/05/23 [...] Encounter Status:Closed by SALEEM FITCH on [facility]05/[facility]SE Nurse Visit (RUY) -- JEANMARIE FARIA ([id number]) 1965 F Date Time Provider Department 03/28/23 [...] Encounter Status:Closed by TONEY BAILON on 03/28/23 [facility] CNOVon 03-28-2023 CNOV Office Visit (RADTSA ) -- JEANMARIE FARIA ([id number]) 1965 F Date Time Provider Department 03/28/23 [...] Saleem Fitch MD Referring Provider: SALEEM FITCH [[id number]] Allergies As of Date: 03/28/2023 (No Known [...] time. En (more content not included)... Normal [facility] -- JEANMARIE FARIA ([id number]) 1965 F Date Time Provider Department 03/23/23 [...] Encounter Status:Closed by TONEY BAILON on 03/23/23 [facility] CNOVon 03-17-2023 CNOV Office Visit (RADTSA ) -- JEANMARIE FARIA ([id number]) 1965 F Date Time Provider Department 03/17/23 [...] which included preparing to see the patient, odty-ub-zowu patient care, counseling and educating the patient/family/caregiver, and communicating results to the patient/family/caregiver. This document has been created with the use of voice recognition technology. It may contai (more content not included)... Normal [facility] PET/CT SKULL-THIGH INITon 03-15-2023 AK PET/CT SKULL-THIGH INIT * * *Final Report* * * DATE OF EXAM: Mar 15 2023 11:07AM NRN 0060 - AK PET/CT SKULL-THIGH INIT / PROCEDURE REASON: Neoplasm of lung * * * * Physician Interpretation * * * * RESULT: EXAM: AK PET/CT SKULL-THIGH INIT HISTORY: 57 years old [...] - Background liver activity (max SUV): 2.8 Voice Coach (topogram) images: No additional findings. HEAD AND [...] any questions regarding this interpretation, please call [phone]. If you are unable to reach us at the number above, please feel free to contact [facility] eRadiology at [phone]. [id number] Normal [facility] CNPJossy 03-14-2023 CNPN Telephone (ZANAMN) -- JEANMARIE FARIA ([id number]) 1965 F Date Time Provider Department 03/14/23 STAN GARCIA During your visit today, we recorded the following information about you: Alber Fernandez 03/14/2023 2:32 PM Signed Received Hem/Onc consult notes 03/07/23 from [facility] Record scanned in [facility] pernell Constantino Cassandra 03/27/2023 11:23 AM Signed Received Hem/Onc office notes 03/21/23 [address] [facility] Record scanned in [facility] Alber Fernandez insurance administrative assistantAlber Mcdonald 03/28/2023 1:06 PM Signed Received Hem/Onc office notes 03/28/23 from [facility] Record scanned in [facility] Alber Fernandez insurance administrative assistantAlber Mcdonald 04/18/2023 3:47 PM Signed Received Hem/Onc office notes 04/11/23 from [facility] Record scanned in [facility] pernell Constantino Cassandra 04/21/2023 9:33 AM Signed Received OSH Hem/Onc office notes 04/18/23 from [facility] Record scanned in [facility] pernell Constantino Rebecca, RN 04/21/2023 11:25 AM Addendum noted no surgery apart of plan. BURTON Herrera Cassandra 08/22/2023 9:39 AM Signed Received Hem/Onc office notes 08/15/23 from [facility] Record scanned in [facility] Alber Fernandez insurance administrative assistant Allergies As of Date: 03/14/2023 (No Known [...] Encounter Status:Closed by ALBER FERNANDEZ on 03/14/23 [facility] Candido 03-13-2023 ERIK Telephone (RADTSA) -- JEANMARIE FARIA ([id number]) 1965 F Date Time Provider Department 03/13/23 [...] any insight Nancy Beach MSN, RN Nurse Discovery Manager Thoracic Surgery [facility] Nilsa Deal RN 03/13/2023 3:44 PM [...] MRI I can get her scheduled at [place] looks like she normally goes there, I tried to call her to ask, looks like her insurance may require auth also Abdulkadir LandaverdePino 03/15/2023 12:58 PM Signed Called [facility] they are calling patient today to schedule appt for this week she said. Toney Bailon LPN 03/21/2023 2:25 PM Signed I called [facility] scheduling dept for an update on the [...] Encounter Status:Closed by NILSA DEAL on 03/24/23 [facility] 03-10-2023 ------ -- Attestation signed by Betito Foss MD at 03/10/2023 10:58 AM Re-explained the procedure to the patient along with the associated risk of pneumothorax, bleeding, hypoxia, and respiratory failure. Patient is agreeable and will proceed with the scheduled rigid bronchoscopy, tumor debulking, and stent Betito Foss MD Interventional Pulmonary Medicine Pulmonary and Critical Care Medicine [facility] Physicians -- History Of Present Illness Jeanmarie [...] Onset Heart failure Mother Diabetes Mother Other (VT) Mother Hypertension Mother Allergies Patient has no [...] TBNA using a (more content not included)... [facility] NURSNOTEon 03-10-2023 NURSNOTE Reviewed instruction s with patient and sister, copy given. Stable for [place] home. Normal [facility] POCT GLUCOSE METER UNSOLICIT ED RESULTSon 03-10-2023 Glucose [Mass/Vol] 113 mg/dL High 70-105 [facility] Comment on above: Order Comment: Waive d Testing in the ED is performed under the ED CLIA certificate #[id number]. Result Comment: aepp ink Performed By: #### L [id number] ####[facility] (ARVINAKER)[address] [place] [address] CNOVon 03-08-2023 CNOV Office Visit (RADTSA ) -- JEANMARIE FARIA ([id number]) 1965 F Date Time Provider Department 03/08/23 [...] the Department of Radiation Oncology at the [facility] with Saleem Fitch MD. Final recommendations will be communicated back to the requesting physician by way of the shared medical record, or letter to requesting physician via US mail. HISTORY OF PRESENT ILLNESS: Ms. Faria is a 57-year-old woman in [place], [place] who was found to have a [...] met with Dr. Rodriguez medical oncology at [facility] and referred to material processor Dr. Foss as an outpatient. She underwent [...] the past year and having had an VT approximately a year ago. She does note [...] Ms. Faria is and lives in the [place], [place] area. 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 She notes an approximate [id number] history of smoking and has reduced down [...] 162 lb (more content not included)... Normal [facility] JEANMARIE FARIA ([id number]) 1965 F Date Time Provider Department 03/08/23 STAN GARCIA During your visit today, we recorded the following information about you: Alber Jim 03/09/2023 3:28 PM Addendum LOCAL PATIENT Received Fax from Dr. Archana Noriega Giana is being referred to Stan Garcia M.D., Ph. D. Or Lamonte Guerra by Dr. Archana Rodriguez [address] [place] [phone] Patient diagnosis/Reason for consult: Lung Cancer Referral triage process explained: No Patient will receive a call from Thoracic NPM after triage review with surgeon to discuss any additional testing and/or consults that will be scheduled. Pt will then receive a call from our scheduling office for scheduling. Please call pt at [phone]. Patient was informed consultation could be at [place] or [facility]: No Patient Registration: Registration complete/updated: yes Insurance card(s) scanned in [facility] with in the past year: Yes: Date: 03/08/23 Pt's MyChart is Pending. Ok to communicate to pt via [employer] not asked Medical Records: Records in [facility] (internal CC records): Yes Imaging in [facility] (internal CC records): Yes Care Everywhere - queried yes, downloaded Yes Linked Outside Organizations (list): [facility]; [place]; [facility] OS Records Requested: No Date: N/A Outside Hospital(s) requested records from: n/a Received: yes Uploaded: Yes. Waiting on additional records: No. Missing (list): N/A OSH Pathology Slides Requested: no Date: N/A Outside Hospital(s) slides requested from: n/a OS Radiology Imaging Requested: yes Date: March 08, 2023 Outside Hospital(s) requested imaging from: [place]. Imaging will be received via Electronic Transfer Received: Yes Imaging uploaded: Yes Waiting on additional: No Missing (list): n/a Additional providers added to Care Teams: Yes Additional Notes/Comments: n/a Enct routed to: Zana Louis NPM for Triage Alber Fernandez, insurance administrative assistant Nancy Beach, [place] 03/10/2023 3:31 PM Addendum Thoracic Surgery Consultation - review of records for appointment scheduling Received medical records from the office of Archana Rodriguez [address] [id number] Patient is being referred to Stan Garcia [...] position. ebus 03/03/2023 Imaging PET/CT: 03/15/[address] [place] [address] (chest) 02/19/23 Cardiopulmonary Testing PFT's/Six: requested [...] apart of the plan, will have dr garcai reach out to the referring MD office and Dr Fitch to discuss PE (more content not included)... Normal [facility] Telephone (LimeTrayA) -- JEANMARIE FARIA ([id number]) 1965 F Date Time Provider Department 03/08/23 SALEEM FITCH During your visit today, we recorded the following information about you: Toney Bailon LPN 03/08/2023 2:57 PM Signed I notified Carla with Dr. Gongora's office, cardiology, that Jeanmarie will be scheduled for a bronchoscopy with pulmonary stent placement with Dr. Foss, Gong material processor, and will need cardiac clearance. I provided [...] Status:Closed by TONEY BAILON on 03/08/23 Normal [facility] Orders Onlyon 03-08-2023 Orders Only [id number] Cyndee Faria 1965 F Date Provider Department Center 03/08/2023 383-BETITO FOSS [facility] Family History Problem Relation Age of Onset Heart failure Mother Diabetes Mother Other Mother Hypertension Mother Family Status - Relation Status Age at Mother Normal [facility] 29on 03-03-2023 29 Addendum created 03/19 1633 by Rajesh Toussaint DO Order list changed Normal [facility] Anesthesiaon 03-03-2023 Anesthesia [id number] Cyndee Faria 1965 F Date Provider Department Center 03/03/2023 [place]9-ALICIA [facility] [place] [facility] Family History Problem Relation Age of Onset Heart failure Mother Diabetes Mother Other Mother Hypertension Mother Family Status - Relation Status Age at Mother Normal [facility] HISTOLOGY - TISSUE EXAMon LAB AP CASE REPORT Normal [facility] Comment on above: Result Comment: Surg ical Pathology Case: [id number] Authorizing Provider: Betito Foss MD Collected: 03/03/2023 1426 Ordering Location: [facility] Main Operating Room Received: 03/03/20232041 Pathologist: Dorothea Saunders MD Specimen: Trachea/Tracheal, tracheal mass bx Performed By: #### L [id number] ####[facility] (BETrendr)[address] [place] [address] LAB AP CLINICAL INFORMATION Order Diagnoses Normal [facility] Comment on above: Result Comment: R59. 0 - Mediastinal adenopathy [ICD-10-CM] Performed By: #### L [id number] ####[facility] (BEAKER)[address] [place] [address] LAB AP GROSS DESCRIPTION [facility] Comment on above: Result Comment: A. T rachea/Tracheal. Part A is received in formalin labeled Jeanmarie Giana and tracheal mass bx. It consists of 4 pieces of ortiz-pink, irregular soft tissue measuring 0.8 x 0.5 x 0.2 cm in aggregate. The specimen is submitted in toto in 1 cassette. Balwinder Lerner, Pathologists' Blower Insulator Performed By: #### L [id number] ####[facility] ([facility] [place] [address] LAB AP MICROSCOPIC DESCRIPTION Microscopic examination performed. [facility] Comment on above: Performed By: #### L [id number] ####[facility] ([facility] [place] [address] LAB AP REPORT FINAL DIAGNOSIS NARRATIVE [facility] Comment on above: Result Comment: A. T divya mass, biopsy: - Fragments of benign respiratory-type mucosa. - No evidence of carcinoma. Performed By: #### L [id number] ####[facility] ([facility] [place] [address] [facility] 03-03-2023 ------ -- Attestation signed by Betito Foss MD at 03/03/2023 1:34 PM Re-explained the procedure to the patient along with the associated risk of pneumothorax, bleeding, hypoxia, and respiratory failure. Patient is agreeable and will proceed with the scheduled bronchoscopy and EBUS TBNA Betito Foss MD Interventional Pulmonary Medicine Pulmonary and Critical Care Medicine [facility] Physicians -- Pulmonology Progress Patient : Jeanmarie [...] last few weeks so she went to [place] ER last week, CT scan obtained which [...] Diagnosis Date COPD (chronic obstructive pulmonary disease) ([facility]) Coronary artery disease Diverticulosis GERD (gastroesophageal reflux disease) History of transfusion Hyperlipidemia Hypertension Irritable bowel syndrome Mediastinal mass Myocardial infarction ([facility]) 11/2021 Spastic colon No Known Allergies Social [...] Onset Heart failure Mother Diabetes Mother Other (VT) Mother Hypertension Mother Outpatient Medications: (Not in [...] for: GBMAB (more content not included)... Normal [facility] NON-FRAMER CYTOLOGY - CELLULAR EXAMon 03-03-2023 LAB AP ADDENDUM 1 Normal [facility] Comment on above: Result Comment: This case ([id number]) was sent to [employer] for the [employer] x[employer] tumor panel. Findings were as follows: Somatic: Potentially Actionable KRAS: G12C Somatic: Biologically Relevant PTPRD: S497* GATA6: R76fs TP53: R248W B2M: S40* STAG2: K92* Germline: Pathogenic/Likely Pathogenic No matched normal sample was received, therefore germline sequencing was not performed. Pertinent Negatives EGFR, BRAF, ALK, ROS1, RET, MET, ERBB2 Immunotherapy Markers Tumor Mutational Beverly (TMB): 13.2 m/MB Microsatellite Instability Status (MSI): Stable PD-L1 22C3 IHC: Too few tumor cells present Comment: See separate [employer] x[employer] report for a complete description with interpretive content and potential clinical trials. Addendum electronically signed by Jie Nolan MD on 05/03/2023 at 10:46 AM Performed By: #### L [id number] ####[facility] (BEAKER)[address] [place] [address] LAB AP ASR DISCLAIMER The interpretation of [...] Clinical Laboratory Improvement Amendments of 1998. Normal [facility] Comment on above: Performed By: #### L [id number] ####[facility] (BEAKER)[address] [place] [address] LAB AP CASE REPORT Normal [facility] Comment on above: Result Comment: Non- gynecologic Cytology Case: [id number] Authorizing Provider: Betito Foss MD Collected: 03/03/2023 1352 Ordering Location: [facility] Main Operating Room Received: 03/03/2023 1434 Pathologist: Jie Nolan MD Specimen: Trachea/Tracheal, tracheal mass FNA Performed By: #### L [id number] ####[facility] [place] [address] LAB AP CLINICAL INFORMATION Mediastinal mass adjacent/abutting the superior margin of the left mainstem bronchus, anterior margin of the aorta, and anterior esophagus (3 cm), COPD, tobacco use Normal [facility] Comment on above: Performed By: #### L [id number] ####[facility] ([facility] [place] [address] LAB AP DIAGNOSIS COMMENT Normal [facility] Comment on above: Result Comment: Immu nohistochemistry with controls performed. Lesional cells positive for CK5/6. Focal weak positivity with p63 is identified. In a background of abundant necrosis scantly to moderately cellular are scattered malignant tumor cell clusters and single malignant cells identified. Contact molecular pathology for requests for ancillary molecular testing. See also concurrent biopsy, [id number]. Performed By: #### L [id number] ####[facility] ([facility] [place] [address] LAB AP GROSS DESCRIPTION A. 2 air-dried slides, 2 alcohol-fixed slides, 30 mL CytoLyt with hazy, red fluid and red/white particles Normal [facility] Comment on above: Performed By: #### L [id number] ####[facility] ([facility] [place] [address] LAB AP INTRAOPERATIVE CONSULTATION Normal [facility] Comment on above: Result Comment: [...] material submitted.* Performed By: #### L [id number] ####[facility] ([facility] [place] [address] LAB AP MICROSCOPIC DESCRIPTION Satisfactory for evaluation. Examination of the prepared smears and cell block reveals tumor cells arranged in aggregates and as single cells with dense cytoplasm, enlarged round to oval nuclei, irregular chromatin, and prominent nucleoli in a background of abundant necrosis, benign bronchial cells, and blood. [facility] Comment on above: Performed By: #### L [id number] ####[facility] ([facility] [place] [address] LAB AP REPORT FINAL DIAGNOSIS NARRATIVE [facility] Comment on above: Result Comment: A. T divya mass, EBUS-guided fine needle aspiration: - Most consistent with squamous cell carcinoma (see microscopic description and comment). Performed By: #### L [id number] ####[facility] ([facility] [place] [address] POCT GLUCOSE METER UNSOLICIT ED RESULTSon 03-03-2023 Glucose [Mass/Vol] 120 mg/dL High 70-105 [facility] Comment on above: Order Comment: Waive d Testing in the ED is performed under the ED CLIA certificate #[id number]. Result Comment: aepp ink Performed By: #### L [id number] ####[facility] ([facility] [place] [address] [id number] 02-27-2023 [id number] Nothing to Eat or Dr ink, including [...] THE FOLLOWING ARE NOT AVAILABLE: An adult driver's education instructor over the age of 18, that can [...] lenses. Do not wear perfume, make-up, nail st helenian, or lotions on the day of your [...] need to make any changes, please call [phone]. Notify your surgeon if you develop any illness such as a cold, cough, fever, sore throat or vomiting between now and your surgery. Thank you for entrusting us with your care. [facility] Surgical Services Team Normal [facility] Prep for Procedureon 023 Prep for Procedure [id number] Cyndee Faria 1965 F Date Provider Department Center 02/27/2023 BETITO BALBUENA [facility] Family History Problem Relation Age of Onset Heart failure Mother Diabetes Mother Other Mother Hypertension Mother Family Status - Relation Status Age at Mother Normal [facility] Orders Onlyon 02-24-2023 Orders Only [id number] GianaHarrisonnatividad pool 1965 F Date Provider Department Center 02/24/2023 JadeISAACBETITO DUNBAR [facility] Family History Problem Relation Age of Onset Heart failure Mother Diabetes Mother Other Mother Hypertension Mother Family Status - Relation Status Age at Mother Normal [facility] Activated partial thrombopla stin time (aPTT) in platelet poor plasma by coagulation aOrdered By: Teo Gongora on 12-30-2022 aPTT Coag (PPP) [Time] 35.6 s 25.1-36.5 [facility] Basophils Auto (Bld) [#/Vol] Ordered By: Teo Gongora on 12-30-2022 Basophils (Bld) [#/Vol] 0.1 10*3/uL 0.0-0.[address] [facility] Basophils/100 WBC Auto (Bld) Ordered By: Teo Gongora on 12-30-2022 Basophils/100 WBC (Bld) 0.9 % . [facility] Blood Urea Nitrogenon 2022 Urea nitrogen [Mass/Vol] 13 mg/dL Normal 7-[address] [facility] Comment on above: Performed By: #### P P, CREAT, HCGQUAL, CBC, LYTES, BUN, LIPID #### [address] Carbon dioxide, total [Moles /volume] in Serum or PlasmaOrdered By: Teo Gongora on 12-30-2022 CO2 [Moles/Vol] 22.7 mmol/L 21.0-31.0 [facility] Chloride [Moles/volume] in S mony or PlasmaOrdered By: Teo Gongora on 12-30-2022 Chloride [Moles/Vol] 106 mmol/L 98-107 [facility] Cholesterol [Mass/volume] in Serum or PlasmaOrdered By: Teo Gongora on 12-30-2022 Cholesterol [Mass/Vol] 121 mg/dL 140-200 [facility] Comment on above: Chol less than 200 m g/dl low riskChol 201-239 mg/dl borderline riskChol 240 mg/dl and greater high risk Cholesterol in LDL Calc [Mas s/Vol]Ordered By: Teo Gongora on 12-30-2022 Cholesterol in LDL [Mass/Vol] 59 mg/dL 0-[address] [facility] Comment on above: LDL ATP III CLASSIFI CATIONLDL less than 100 mg/dL OptimalLDL 100-129 mg/dL Near or above optimalLDL 130-159 mg/dL Borderline highLDL 160-189 mg/dL HighLDL greater than 189 mg/dL Very high Cholesterol in VLDL Calc [Ma ss/Vol]Ordered By: Teo Gongora on 12-30-2022 Cholesterol in VLDL [Mass/Vol] 26 mg/dL [facility] Choriogonadotropin.beta subu nit [Units/volume] in Serum or PlasmaOrdered By: Teo Gongora on 12-30-2022 HCG.beta subunit Qn Negative [facility] Coagulation Profileon 2022 aPTT Coag (Bld) [Time] 35.6 s Normal 25.1-36.5 [facility] Comment on above: Result Comment: PERF ORMED BY: [place] [address] PATHOLOGIST FLAT KNITTER HELPER EUSEBIO DOWELL M.D. Performed By: #### P P, CREAT, HCGQUAL, CBC, LYTES, BUN, LIPID #### [facility] [address] [place] [address] INR Coag (PPP) [Relative time] 1.1 {INR} Normal [facility] Comment on above: Result Comment: INR Therapeutic [...] CREAT, HCGQUAL, CBC, LYTES, BUN, LIPID #### [facility] [address] [place] [address] [place] PT Coag (PPP) [Time] 12.2 s Normal 9.0-12.9 [facility] Comment on above: Performed By: #### P P, CREAT, HCGQUAL, CBC, LYTES, BUN, LIPID #### [address] Complete Blood Count Auto Di ffon 12-30-2022 Basophils (Bld) [#/Vol] 0.1 10*3/uL Normal 0.0-0.[address] [facility] Comment on above: Result Comment: PERF ORMED BY: [place] [address] PATHOLOGIST FLAT KNITTER HELPER EUSEBIO DOWELL M.D. Performed By: #### P P, CREAT, HCGQUAL, CBC, LYTES, BUN, LIPID #### [address] Basophils/100 WBC (Bld) 0.9 % Normal . [facility] Comment on above: Performed By: #### P P, CREAT, HCGQUAL, CBC, LYTES, BUN, LIPID #### [address] Eosinophils (Bld) [#/Vol] 0.1 10*3/uL Normal 0.0-0.[address] [facility] Comment on above: Performed By: #### P P, CREAT, HCGQUAL, CBC, LYTES, BUN, LIPID #### [address] Eosinophils/100 WBC (Bld) 1.0 % Normal . [facility] Comment on above: Performed By: #### P P, CREAT, HCGQUAL, CBC, LYTES, BUN, LIPID #### [address] Erythrocyte distribution width (RBC) [Ratio] 15.2 % Normal 11.9-15.[address] [facility] Comment on above: Performed By: #### P P, CREAT, HCGQUAL, CBC, LYTES, BUN, LIPID #### [address] Hematocrit (Bld) [Volume fraction] 40.6 % Normal 34.0-46.[address] [facility] Comment on above: Performed By: #### P P, CREAT, HCGQUAL, CBC, LYTES, BUN, LIPID #### [address] Hemoglobin (Bld) [Mass/Vol] 13.6 g/dL Normal 11.8-15.[address] [facility] Comment on above: Performed By: #### P P, CREAT, HCGQUAL, CBC, LYTES, BUN, LIPID #### [address] Lymphocytes (Bld) [#/Vol] 3.5 10*3/uL Normal 1.00-4.[address] [facility] Comment on above: Performed By: #### P P, CREAT, HCGQUAL, CBC, LYTES, BUN, LIPID #### [address] Lymphocytes/100 WBC (Bld) 27.2 % Normal . [facility] Comment on above: Performed By: #### P P, CREAT, HCGQUAL, CBC, LYTES, BUN, LIPID #### [address] MCH (RBC) [Entitic mass] 30.0 pg Normal 24.7-34.[address] [facility] Comment on above: Performed By: #### P P, CREAT, HCGQUAL, CBC, LYTES, BUN, LIPID #### [address] MCV (RBC) [Entitic vol] 89.6 fL Normal 80-[address] [facility] Comment on above: Performed By: #### P P, CREAT, HCGQUAL, CBC, LYTES, BUN, LIPID #### [address] Mean Corpuscular HGB Conc 33.4 g/dL Normal 32.0-35.[address] [facility] Comment on above: Performed By: #### P P, CREAT, HCGQUAL, CBC, LYTES, BUN, LIPID #### [place] [address] [place] Monocytes (Bld) [#/Vol] 1.3 10*3/uL High 0.0-0.[address] [facility] Comment on above: Performed By: #### P P, CREAT, HCGQUAL, CBC, LYTES, BUN, LIPID #### [place] [address] [place] Monocytes/100 WBC (Bld) 10.1 % Normal . [facility] Comment on above: Performed By: #### P P, CREAT, HCGQUAL, CBC, LYTES, BUN, LIPID #### [address] Neutrophils (Bld) [#/Vol] 7.8 10*3/uL High 1.8-7.[address] [facility] Comment on above: Performed By: #### P P, CREAT, HCGQUAL, CBC, LYTES, BUN, LIPID #### [address] Neutrophils/100 WBC (Bld) 60.8 % Normal . [facility] Comment on above: Performed By: #### P P, CREAT, HCGQUAL, CBC, LYTES, BUN, LIPID #### [address] NRBC% 0.2 /100{WBC} Normal 0-0.[address] [facility] Comment on above: Performed By: #### P P, CREAT, HCGQUAL, CBC, LYTES, BUN, LIPID #### [address] Platelet mean volume (Bld) [Entitic vol] 8.2 fL Normal 6.3-10.[address] [facility] Comment on above: Performed By: #### P P, CREAT, HCGQUAL, CBC, LYTES, BUN, LIPID #### [place] [address] [place] Platelets (Bld) [#/Vol] 338 10*3/uL Normal 150-[address] [facility] Comment on above: Performed By: #### P P, CREAT, HCGQUAL, CBC, LYTES, BUN, LIPID #### [address] RBC (Bld) [#/Vol] 4.53 10*6/uL Normal 3.60-5.00 [facility] Comment on above: Performed By: #### P P, CREAT, HCGQUAL, CBC, LYTES, BUN, LIPID #### [address] WBC (Bld) [#/Vol] 12.8 10*3/uL High 3.8-11.6 [facility] Comment on above: Performed By: #### P P, CREAT, HCGQUAL, CBC, LYTES, BUN, LIPID #### [address] Creatinineon 12-30-2022 Creatinine [Mass/Vol] 0.69 mg/dL Normal 0.60-1.20 [facility] Comment on above: Performed By: #### P P, CREAT, HCGQUAL, CBC, LYTES, BUN, LIPID #### [address] GFR/1.73 sq M.predicted MDRD (S/P/Bld) [Vol rate/Area] mL/min/{1.73_m2} Normal [facility] Comment on above: Performed By: #### P P, CREAT, HCGQUAL, CBC, LYTES, BUN, LIPID #### [address] Creatinine [Mass/volume] in Serum or PlasmaOrdered By: Teo Gongora on 12-30-2022 Creatinine [Mass/Vol] 0.69 mg/dL 0.60-1.20 [facility] ECG 12 lead ECGon 12-30-2022 ECG 12 lead ECG [facility] Main [place] [address] [place] [address] Electrocardiograph Report Signed Patient: Jeanmarie Faria MR#: [id number] 49 : 1965 Acct:[id number] Age/Sex: 57 / F ADM Date: 12/30/22 Loc: CL Room: Type: [facility] Attending Dr: Teo Gongora DO Ordering Provider: Teo Gongora DO Date of Service: 12/30/2201/18/1056 ECG/ECG 12 lead ECG: [facility] Copies to: Test Reason : Blood [...] change was found Confirmed by CHINO JERRY [facility], BOLIVAR ([id number]) on 01/01/2023 12:37:24 AM Referred By: Electronically Signed By:BOLIVAR MAGANA MD [facility] Transcribed By: MUS Signed By Bolivar Magana MD, FACC 01/01/[address] [facility] Electrolyteson 12-30-2022 Anion gap [Moles/Vol] 12.3 mmol/L Normal 6.0-15.0 [facility] Comment on above: Performed By: #### P P, CREAT, HCGQUAL, CBC, LYTES, BUN, LIPID #### [facility] [address] [place] [address] [place] Chloride [Moles/Vol] 106 mmol/L Normal 98-107 [facility] Comment on above: Performed By: #### P P, CREAT, HCGQUAL, CBC, LYTES, BUN, LIPID #### [facility] [address] [place] [address] [place] CO2 [Moles/Vol] 22.7 mmol/L Normal 21.0-31.0 [facility] Comment on above: Performed By: #### P P, CREAT, HCGQUAL, CBC, LYTES, BUN, LIPID #### [facility] [address] [place] [address] [place] Potassium [Moles/Vol] 4.0 mmol/L Normal 3.5-5.1 [facility] Comment on above: Performed By: #### P P, CREAT, HCGQUAL, CBC, LYTES, BUN, LIPID #### [address] Sodium [Moles/Vol] 137 mmol/L Normal 136-145 [facility] Comment on above: Performed By: #### P P, CREAT, HCGQUAL, CBC, LYTES, BUN, LIPID #### [address] Eosinophils Auto (Bld) [#/Vo l]Ordered By: Teo Gongora on 12-30-2022 Eosinophils (Bld) [#/Vol] 0.1 10*3/uL 0.0-0.[address] [facility] Eosinophils/100 WBC Auto (Bl d)Ordered By: Teo Gongora on 12-30-2022 Eosinophils/100 WBC (Bld) 1.0 % . [facility] Erythrocyte distribution wid th Auto (RBC) [Ratio]Ordered By: Teo Gongora on 12-30-2022 Erythrocyte distribution width (RBC) [Ratio] 15.2 % 11.9-15.[address] [facility] HCG,Qualitative Serumon HCG,Qualitative Serum Negative Normal [facility] Comment on above: Result Comment: PERF ORMED BY: [place] [address] PATHOLOGIST FLAT KNITTER HELPER EUSEBIO DOWELL M.D. Performed By: #### P P, CREAT, HCGQUAL, CBC, LYTES, BUN, LIPID #### [address] Hematocrit Auto (Bld) [Volum e fraction]Ordered By: Teo Gongora on 12-30-2022 Hematocrit (Bld) [Volume fraction] 40.6 % 34.0-46.[address] [facility] Hemoglobin [Mass/volume] in BloodOrdered By: Teo Gongora on 12-30-2022 Hemoglobin (Bld) [Mass/Vol] 13.6 g/dL 11.8-15.[address] [facility] Laboratory - Chemistry and C hemistry - challengeon 12-30-2022 Cholesterol [Mass/Vol] 121\S\121 below low threshold 140-200 -[facility] [employer] 250 DO Work Phone: Comment on above: Chol less than 200 m g/dl low risk Chol 201-239 mg/dl borderline risk Chol 240 mg/dl and greater high risk Cholesterol in LDL [Mass/Vol] 59\S\59 Normal 0-100 -[facility] 250 DO Work Phone: Comment on above: LDL ATP III CLASSIFI CATION LDL less than 100 mg/dL Optimal LDL 100-129 mg/dL Near or above optimal LDL 130-159 mg/dL Borderline high LDL 160-189 mg/dL High LDL greater than 189 mg/dL Very high Laboratory - CoagulationOrde red By: Teo Gongora on 12-30-2022 PT Coag (PPP) [Time] 12.2 s 9.0-12.9 [facility] Leukocytes [#/volume] correc roney for nucleated erythrocytes in Blood by Automated counOrdered By: Teo Gongora on 12-30-2022 WBC corrected for nucl RBC Auto (Bld) [#/Vol] 12.8 10*3/uL 3.8-11.[address] [facility] Lipid Panelon 12-30-2022 Cholesterol [Mass/Vol] 121 mg/dL Low 140-200 [facility] Comment on above: Result Comment: Chol less than 200 mg/dl low risk Chol 201-239 mg/dl borderline risk Chol 240 mg/dl and greater high risk Performed By: #### P P, CREAT, HCGQUAL, CBC, LYTES, BUN, LIPID #### [facility] [address] Cholesterol in HDL [Mass/Vol] 35 mg/dL Normal 35-[address] [facility] Comment on above: Result Comment: HDL CHOL ATP-III CLASSIFICATION Cardiovascular Risk HDL > or equal to 60 mg/dL LOW HDL < 40 mg/dL HIGH Performed By: #### P P, CREAT, HCGQUAL, CBC, LYTES, BUN, LIPID #### [facility] [address] [place] [address] Cholesterol.total/Chol esterol in HDL [Mass ratio] 3.5 {ratio} Normal <5.[address] [facility] Comment on above: Performed By: #### P P, CREAT, HCGQUAL, CBC, LYTES, BUN, LIPID #### [facility] [address] LDL Cholesterol,Calculated 59 mg/dL Normal 0-[address] [facility] Comment on above: Result Comment: LDL ATP III CLASSIFICATION LDL less than 100 mg/dL Optimal LDL 100-129 mg/dL Near or above optimal LDL 130-159 mg/dL Borderline high LDL 160-189 mg/dL High LDL greater than 189 mg/dL Very high Performed By: #### P P, CREAT, HCGQUAL, CBC, LYTES, BUN, LIPID #### [facility] [address] Triglyceride w/Reflex 133 mg/dL Normal 0-149 [facility] Comment on above: Result Comment: TRIG ATP III CLASSIFICATION TRIG less than 150 mg/dL Normal TRIG 150-199 mg/dL Borderline high TRIG 200-500 mg/dL High TRIG greater than 500 mg/dL Very high Standard traceable to the Center for Disease Conrtrol and Prevention (CDC) test method. Performed By: #### P P, CREAT, HCGQUAL, CBC, LYTES, BUN, LIPID #### [facility] [address] VLDL CHOLESTEROL 26 mg/dL Normal [facility] Comment on above: Performed By: #### P P, CREAT, HCGQUAL, CBC, LYTES, BUN, LIPID #### [facility] [address] Lymphocytes Auto (Bld) [#/Vo l]Ordered By: Teo Gongora on 12-30-2022 Lymphocytes (Bld) [#/Vol] 3.5 10*3/uL 1.00-4.[address] [facility] Lymphocytes/100 WBC Auto (Bl d)Ordered By: Teo Gongora on 12-30-2022 Lymphocytes/100 WBC (Bld) 27.2 % . [facility] MCH Auto (RBC) [Entitic mass ]Ordered By: Teo Gongora on 12-30-2022 MCH (RBC) [Entitic mass] 30.0 pg 24.7-34.[address] [facility] MCHC Auto (RBC) [Mass/Vol]Or dered By: Teo Gongora on 12-30-2022 MCHC (RBC) [Mass/Vol] 33.4 g/dL 32.0-35.0 [facility] MCV Auto (RBC) [Entitic vol] Ordered By: Teo Gongora on 12-30-2022 MCV (RBC) [Entitic vol] 89.6 fL 80-[address] [facility] Monocytes Auto (Bld) [#/Vol] Ordered By: Teo Gongora on 12-30-2022 Monocytes (Bld) [#/Vol] 1.3 10*3/uL 0.0-0.[address] [facility] Monocytes/100 WBC Auto (Bld) Ordered By: Teo Gongora on 12-30-2022 Monocytes/100 WBC (Bld) 10.1 % . [facility] Neutrophils Auto (Bld) [#/Vo l]Ordered By: Teo Gongora on 12-30-2022 Neutrophils (Bld) [#/Vol] 7.8 10*3/uL 1.8-7.[address] [facility] Neutrophils/100 WBC Auto (Bl d)Ordered By: Teo Gongora on 12-30-2022 Neutrophils/100 WBC (Bld) 60.8 % . [facility] No Panel InformationOrdered By: Teo Gongora on 12-30-2022 Estimated GFR (CKD-EPI) > 60.0 mL/Min [facility] Pharmacy Creatinine Clearance (Chem N/A [facility] No Panel Informationon 12-30 60.8\S\60.8 Normal . -[facility] [employer] 250 DO Work Phone: 8.2\S\8.2 Normal 6.3-10.7 -[facility] [employer] 250 DO Work Phone: [phone]\S\338 Normal 150-450 -[facility] [employer] 250 DO Work Phone: 15.2\S\15.2 Normal 11.9-15.3 [facility] edgar 250 DO Work Phone: [phone] 33.4\S\33.4 Normal 32.0-35.0 -[facility]-Sand[facility] edgar 250 DO Work Phone: [phone] 30.0\S\30.0 Normal 24.7-34.3 [facility] edgar 250 DO Work Phone: [phone] 7.8\S\7.8 above high threshold 1.8-7.7 [facility] edgar 250 DO Work Phone: [phone] 0.2\S\0.2 Normal 0-0.5 [facility] 250 DO Work Phone: [phone] 0.9\S\0.9 Normal . [facility] edgar 250 DO Work Phone: [phone] 1.0\S\1.0 Normal . [facility] 250 DO Work Phone: [phone] 10.1\S\10.1 Normal . [facility] edgar 250 DO Work Phone: [phone] 27.2\S\27.2 Normal . [facility] 250 DO Work Phone: [phone] 0.1\S\0.1 Normal 0.0-0.45 [facility]-Heleneu edgar 250 DO Work Phone: Comment on above: PERFORMED BY:[facility] [place] [id number] MEDICAL DIRECTOREUSEBIO DOWELL M.D. 1.3\S\1.3 above high threshold 0.0-0.8 -[facility]-Sand[facility] edgar 250 DO Work Phone: 3.5\S\3.5 Normal <5.0 -[facility] edgar 250 DO Work Phone: [phone] 89.6\S\89.6 Normal 80-100 [facility] edgar 250 DO Work Phone: 40.6\S\40.6 Normal 34.0-46.4 [facility] 250 DO Work Phone: [phone] 13.6\S\13.6 Normal 11.8-15.4 [facility] 250 DO Work Phone: [phone] 4.53\S\4.53 Normal 3.60-5.00 [facility] 250 DO Work Phone: 12.8\S\12.8 above high threshold 3.8-11.6 [facility] 250 DO Work Phone: 35.6\S\35.6 Normal 25.1-36.5 [facility] 250 DO Work Phone: Comment on above: PERFORMED BY:[facility] [place], [place] [id number] MEDICAL DIRECTOREUSEBIO DOWELL M.D. 1.1\S\1.1 Normal [facility] 250 DO Work Phone: Comment [...] valves: 3 - 4.5 12.2\S\12.2 Normal 9.0-12.9 [facility] 250 DO Work Phone: 12.3\S\12.3 Normal 6.0-15.0 [facility] 250 DO Work Phone: 22.7\S\22.7 Normal 21.0-31.0 [facility] edgar 250 DO Work Phone: 106\S\106 Normal 98-107 [facility] Roshan hernández 250 DO Work Phone: 4.0\S\4.0 Normal 3.5-5.1 [facility] Roshan hernández 250 DO Work Phone: 137\S\137 Normal 136-145 [facility] Roshan hernández 250 DO Work Phone: 13\S\13 Normal 7-25 [facility] Roshan hernández 250 DO Work Phone: > 60.0 Normal [facility] Roshan hernández 250 DO Work Phone: 0.69\S\0.69 Normal 0.60-1.20 [facility] Roshan hernández 250 DO Work Phone: 26\S\26 Normal [facility] Roshan hernández 250 DO Work Phone: 133\S\133 Normal 0-149 [facility] Roshan hernández 250 DO Work Phone: Comment on above: TRIG ATP III CLASSIF ICATION TRIG less than 150 mg/dL Normal TRIG 150-199 mg/dL Borderline high TRIG 200-500 mg/dL High TRIG greater than 500 mg/dL Very high Standard traceable to the Center for Disease Conrtrol and Prevention (CDC) test method. 35\S\35 Normal 35-85 [facility] Roshan hernández 250 DO Work Phone: [phone] Comment on above: HDL CHOL ATP-III CLA SSIFICATION Cardiovascular Risk HDL > or equal to 60 mg/dL LOW HDL < 40 mg/dL HIGH Negative Normal [facility] Roshan hernández 250 DO Work Phone: Comment on above: PERFORMED BY:[place] [address] [address] [place], [place] [phone] MEDICAL DIRECTOREUSEBIO DOWELL M.D. Nucleated erythrocytes [Pres ence] in Blood by Automated countOrdered By: Teo Gongora on 12-30-2022 Nucleated RBC Auto Ql (Bld) 0.2 /100{WBC} 0-0.[address] [facility] Platelet mean volume Auto (B ld) [Entitic vol]Ordered By: Teo Gongora on 12-30-2022 Platelet mean volume (Bld) [Entitic vol] 8.2 fL 6.3-10.[address] [facility] Platelet poor plasma interna tional normalized ratio (INR) by coagulation assay (relatOrdered By: Teo Gongora on 12-30-2022 INR Coag (PPP) [Relative time] 1.1 {INR} [facility] Comment on above: INR Therapeutic Rang e [...] 12-30-2022 Platelets (Bld) [#/Vol] 338 10*3/uL 150-[address] [facility] Potassium [Moles/volume] in Serum or PlasmaOrdered By: Teo Gongora on 12-30-2022 Potassium [Moles/Vol] 4.0 mmol/L 3.5-5.1 [facility] RBC Auto (Bld) [#/Vol]Ordere d By: Teo Gongora on 12-30-2022 RBC (Bld) [#/Vol] 4.53 10*6/uL 3.60-5.00 [facility] Serum or plasma anion gap de terminationOrdered By: Teo Gongora on 12-30-2022 Anion gap [Moles/Vol] 12.3 mmol/L 6.0-15.0 [facility] Serum or plasma high density lipoprotein (HDL) cholesterol measurementOrdered By: Teo Gonogra on 12-30-2022 Cholesterol in HDL [Mass/Vol] 35 mg/dL 35-[address] [facility] Comment on above: HDL CHOL ATP-III CLA SSIFICATION Cardiovascular RiskHDL > or equal to 60 mg/dL LOWHDL < 40 mg/dL HIGH Serum or plasma total choles terol/high density lipoprotein (HDL) cholesterol mass ratOrdered By: Teo Gongora on 12-30-2022 Cholesterol.total/Chol esterol in HDL [Mass ratio] 3.5 {ratio} <5.[address] [facility] Sodium [Moles/volume] in Ser um or PlasmaOrdered By: Teo Gongora on 12-30-2022 Sodium [Moles/Vol] 137 mmol/L 136-145 [facility] Triglyceride [Mass/volume] i n Serum or PlasmaOrdered By: Teo Gongora on 12-30-2022 Triglyceride [Mass/Vol] 133 mg/dL 0-[address] [facility] Comment on above: TRIG ATP III CLASSIF ICATIONTRIG less than 150 mg/dL NormalTRIG 150-199 mg/dL Borderline highTRIG 200-500 mg/dL High TRIG greater than 500 mg/dL Very highStandard traceable to the Center for Disease Conrtrol and Prevention (CDC) test method. Urea nitrogen [Mass/volume] in Serum or PlasmaOrdered By: Teo Gongora on 12-30-2022 Urea nitrogen [Mass/Vol] 13 mg/dL 7-[address] [facility] WBC Auto (Bld) [#/Vol]Ordere d By: Teo Gongora on 12-30-2022 WBC (Bld) [#/Vol] 12.8 10*3/uL 3.8-11.6 [facility] Office Visit (Cardiology)on 12-28-2022 Follow-up visit [...] She has a history of non-ST elevation VT in November 2021 with two-vessel revascularization involving [...] Recorded: 28Dec2022 11:26AM Heart Rate68, L Radial Kkxfwmmo953, LUE, Sitting Wdbrnxzhw41, LUE, Sitting Height5 ft 4 in Ymzzug186 lb BMI Sblvhxnnnu07.01 kg/m2 BSA Calculated1.82 Tobacco Usea) Yes Patient [...] Screening.on 023 Adult depression screening assessment No -[facility] edgar 250 DO Work Phone: Tobacco use status [facility] a) Yes MP-[facility] edgar 250 DO Work Phone: Tobacco Screening. Yes MP-[facility]-Sandu edgar 250 DO Work Phone: XR [...] ABELARDO FLANNERY Date: 2022-08-11 11:03 Normal [facility] CARDIAC DANETTE 3-6on 2 CK [Catalytic activity/Vol] 64 U/L Normal 26-192 [facility] Comment on above: Performed By: #### C MREP ####[facility] [address] [place] [address]Dr. Jozef Marrero CK.MB [Mass/Vol] 0.84 ng/mL Normal <=3.60 [facility] Comment on above: Performed By: #### C MREP ####[facility] [address] [place] [address]Dr. Jozef Marrero HSTROP 19.7 pg/mL Normal 4.0-51.3 [facility] Comment on above: Result Comment: CUT- OFF POINTS HAVE BEEN ESTABLISHED BASED ON THE FOURTH UNIVERSAL DEFINITIONS OF MYOCARDIAL INFARCTION. THE UPPER REFERENCE LIMIT (URL) OF TROPONIN, DEFINED THE 99TH PERCENTILE OF cTnI DISTRIBUTION IN A REFERENCE POPULATION, HAS BEEN CONFIRMED THE DECISION THRESHOLD FOR VT DIAGNOSIS. Performed By: #### C MREP ####[facility] [address] [place] [phone] Marrero CARDIAC DANETTE ADMITon 022 CK [Catalytic activity/Vol] 63 U/L Normal 26-192 [facility] Comment on above: Performed By: #### B ROWAN, CMADM ####[facility] [address] [place] [phone] Marrero CK.MB [Mass/Vol] 0.78 ng/mL Normal <=3.60 [facility] Comment on above: Performed By: #### KAILYN Everett MP ####[facility] [address] [place] [address]Dr. Jozef Marrero HSTROP 19.6 pg/mL Normal 4.0-51.3 [facility] Comment on above: Result Comment: CUT- OFF POINTS HAVE BEEN ESTABLISHED BASED ON THE FOURTH UNIVERSAL DEFINITIONS OF MYOCARDIAL INFARCTION. THE UPPER REFERENCE LIMIT (URL) OF TROPONIN, DEFINED THE 99TH PERCENTILE OF cTnI DISTRIBUTION IN A REFERENCE POPULATION, HAS BEEN CONFIRMED THE DECISION THRESHOLD FOR VT DIAGNOSIS. Performed By: #### KAILYN Everett MP ####[facility] [address] [place] [address]Dr. Jozef Marrero DIANA 19 ng/mL Normal 9-82 [facility] Comment on above: Performed By: #### KAILYN Everett MP ####[facility] [address] [place] [address]Dr. Jozef Marrero CBC W MANUAL DIFFon 06-23-20 22 ATYPICAL LYMPH # Normal [facility] Comment on above: Performed By: #### C JENN #### [facility] [address] [place] [address] [address] Jozef Marrero ATYPICAL LYMPH % Normal [facility] Comment on above: Performed By: #### Bennett BARAJAS #### [facility] [address] [place] [address] [address] Jozef Marrero BAND # 0.0 103/ul Normal 0.0-0.3 [facility] Comment on above: Performed By: #### C JENN #### [facility] [address] [place] [address] [address] Jozef Marrero BAND % 0 % Normal 0-5 [facility] Comment on above: Performed By: #### C JENN #### [facility] [address] [place] [address] Dr. Jozef Marrero BASOM # 0.11 103/ul Critically high 0.00-0.10 [facility] Comment on above: Performed By: #### C JENN #### [facility] [address] [place] [address] Dr. Jozef Marrero BASOM % 1.0 % Normal 0.2-2.0 [facility] Comment on above: Performed By: #### C JENN #### [facility] [address] [place] [address] Dr. Jozef Marrero BLAST # Normal [facility] Comment on above: Performed By: #### C JENN #### [facility] [address] [place] [address] Dr. Jozef Marrero BLAST % Normal [facility] Comment on above: Performed By: #### C JENN #### [facility] [address] [place] [address] Dr. Jozef Marrero CORRECTED WBC Normal 4.0-11.0 [facility] Comment on above: Performed By: #### C JENN #### [facility] [address] [place] [address] Dr. Jozef Marrero EOS # 0.00 103/ul Normal 0.00-0.70 [facility] Comment on above: Performed By: #### C JENN #### [facility] [address] [place] [address] Dr. Jozef Marrero EOS% 0.0 % Critically low 0.9-7.0 [facility] Comment on above: Performed By: #### C JENN #### [facility] [address] [place] [address] Dr. Jozef Marrero HCT 40.1 % Normal 36.0-48.0 [facility] Comment on above: Performed By: #### C JENN #### [facility] [address] [place] [address] Dr. Jozef Marrero HGB 13.7 g/dl Normal 12.0-16.0 [facility] Comment on above: Performed By: #### C JENN #### [facility] [address] [place] [address] Dr. Jozef Marrero LYMPHM # 2.70 103/ul Normal 1.20-3.80 [facility] Comment on above: Performed By: #### C JENN #### [facility] [address] [place] [address] Dr. Jozef Marrero LYMPHM% 25.0 % Normal 20.5-60.0 [facility] Comment on above: Performed By: #### C JENN #### [facility] [address] [place] [address] Dr. Jozef Marrero MCH 30.4 pg Normal 26.7-34.0 [facility] Comment on above: Performed By: #### C JENN #### [facility] [address] [place] [address] Dr. Jozef Marrero MCHC 34.2 g/dl Normal 29.9-35.2 [facility] Comment on above: Performed By: #### C JENN #### [facility] [address] [place] [address] Dr. Jozef Marrero MCV 88.9 fL Normal 81.0-99.0 [facility] Comment on above: Performed By: #### C JENN #### [facility] [address] [place] [address] Dr. Jozef Marrero METAMYELOCYTE # Normal [facility] Comment on above: Performed By: #### C JENN #### [facility] [address] [place] [address] Dr. Jozef Marrero METAMYELOCYTE % Normal [facility] Comment on above: Performed By: #### C JENN #### [facility] [address] [place] [address] Dr. Jozef Marrero MONOM# 0.97 103/ul Critically high 0.30-0.80 [facility] Comment on above: Performed By: #### C JENN #### [facility] [address] [place] [address] Dr. Jozef Marrero MONOM% 9.0 % Normal 1.7-12.0 [facility] Comment on above: Performed By: #### C JENN #### [facility] [address] [place] [address] Dr. Jozef Marrero MPV 9.9 fL Normal 9.5-13.5 [facility] Comment on above: Performed By: #### C BCJUANITA #### [facility] [address] [place] [address] [address] Jozef Marrero MYELOCYTE # Normal [facility] Comment on above: Performed By: #### C JENN #### [facility] [address] [place] [address] [address] Jozef Marrero MYELOCYTE % Normal [facility] Comment on above: Performed By: #### C JENN #### [facility] [address] [place] [address] [address] Jozef Marrero NRBC Normal [facility] Comment on above: Performed By: #### C JENN #### [facility] [address] [place] [address] Dr. Jozef Marrero PLT 339 103/ul Normal 150-450 [facility] Comment on above: Performed By: #### C JENN #### [facility] [address] [place] [address] Dr. Jozef Marrero RBC 4.51 106/ul Normal 4.20-5.40 [facility] Comment on above: Performed By: #### C JENN #### [facility] [address] [place] [address] Dr. Jozef Marrero RDW 14.6 % Normal 11.0-15.0 [facility] Comment on above: Performed By: #### C JENN #### [facility] [address] [place] [address] Dr. Jozef Marrero SEG # 7.02 103/ul Critically high 1.40-6.50 [facility] Comment on above: Performed By: #### C JENN #### [facility] [address] [place] [address] Dr. Jozef Marrero SEG % 65.0 % Normal 43.0-75.0 [facility] Comment on above: Performed By: #### C JENN #### [facility] [address] [place] [address] [address] Jozef Marrero WBC 10.8 103/ul Normal 4.0-11.0 [facility] Comment on above: Performed By: #### C JENN #### [facility] [address] [place], [place] [address] Dr. Jozef Marrero Covid-19 PCR (CVDTBH)on 05-29 SARS-CoV-2 (COVID-19) RNA NEVA+probe Ql (Unsp spec) Detected Critically abnormal NOT DETECTED [facility] Comment on above: Result Comment: This test is not yet approved or cleared by the [place] FDA. When there are no FDA-approved or cleared tests available, and other criteria are met, FDA can make tests available under an emergency access mechanism called an Emergency Use Authorization (EUA). The EUA for this test is supported by the [employer] of Health and Human Service's declaration that [...] used). Performed By: #### C VDTBH #### [facility] [address] [place] [address] [address] Jozef Marrero D-DIMERon 06-23-2022 D-DIMER 0.53 mg/L FEU Normal <=0.59 [facility] Comment on above: Performed By: #### D DIM ####[facility] [address] [place] [id number] Marrero D-DIMER COMMENTS SEE BELOW Normal [facility] Comment on above: Result Comment: Incr [...] generalized hospitalization. Performed By: #### D DIM ####[facility] [address] [place] [id number]. Jozef Marrero PROF CHEM 8 (BAS METB)on Anion gap [Moles/Vol] 12.6 mmol/L Normal [facility] Comment on above: Performed By: #### KAILYN Everett MP ####[facility] [address] [place] [address]Dr. Jozef Marrero Calcium [Mass/Vol] 8.9 mg/dL Normal 8.5-10.1 [facility] Comment on above: Performed By: #### Marguerite DONAHUE, KAILYN ####[facility] [address] [place], [place] [address]Dr. Jozef Marrero Chloride [Moles/Vol] 104 mmol/L Normal 98-107 [facility] Comment on above: Performed By: #### KAILYN Everett MP ####[facility] [address] [place], [place] [address]Dr. Jozef Marrero CO2 [Moles/Vol] 24.7 mmol/L Normal 21.0-32.0 [facility] Comment on above: Performed By: #### KAILYN Everett MP ####[facility] [address] [place], [place] [address]Dr. Jozef Marrero Creatinine [Mass/Vol] 0.85 mg/dL Normal 0.55-1.02 [facility] Comment on above: Performed By: #### KAILYN Everett MP ####[facility] [address] [place], [place] [address]Dr. Jozef Marrero EGFR-AF CHINESE >60 Normal >=60 [facility] Comment on above: Performed By: #### KAILYN Everett MP ####[facility] [address] [place], [place] [address]Dr. Jozef Marrero EGFR-NON AF CHINESE >60 Normal >=60 [facility] Comment on above: Performed By: #### KAILYN Everett MP ####[facility] [address] [place], [place] [address]Dr. Jozef Marrero Glucose [Mass/Vol] 123 mg/dL Critically high 74-106 [facility] Comment on above: Performed By: #### KAILYN Everett MP ####[facility] [address] [place] [address]Sd. Jozef Marrero Potassium [Moles/Vol] 3.3 mmol/L Critically low 3.5-5.1 [facility] Comment on above: Performed By: #### B ROWAN, CMADM ####[facility] [address] [place], [place] [address]Oc. Jozef Marrero Sodium [Moles/Vol] 138 mmol/L Normal 136-145 [facility] Comment on above: Performed By: #### B ROWAN, CMADM ####[facility] Nq[address]39[address] [place], [place] [address]Xx. Jozef Marrero Urea nitrogen [Mass/Vol] 19.0 mg/dL Critically high 7.0-18.0 [facility] Comment on above: Performed By: #### B ROWAN, CMADM ####[facility] [address] [place], [place] [address]Pr. Jozef Marrero Urea nitrogen/Creatinine [Mass ratio] 22.4 mg/mg Normal [facility] Comment on above: Performed By: #### B ROWAN, CMADM ####[facility] [address]rg[address]ree[address] [place], [place] [address]Wl. Jozef Marrero XR CHEST 1 06-23-2022 XR [...] JAMIE NEGRON Date: 2022-06-23 02:50 Normal [facility] Office Visit (Cardiology)on 05-05-2022 Follow-up visit [...] Weight Tips; Status:Complete - Retrospective Authorization; Done: [id number] Some eating tips that can help you lose weight.; Status:Complete - Retrospective Authorization; Done: [id number] SocHx: Current smoker You need to stop smoking. Though it is not easy, more than half of all adult smokers have quit. We encourage you to write down all the reasons you should quit smoking and set a quit date for yourself. Ask us how we can help. You may also call 8-376-ZISPNOW for free resources and assistance.; Status:Complete - Retrospective Authorization; Done: [id number] Tobacco Use Screening; Status:Complete; Done: [id number] Patient Instructions Please bring all medicines, vitamins, [...] Recorded: 05May2022 11:41AM Heart Rate80, L Radial Toeosvwi497, LUE, Sitting Mmwdxgbcr69, LUE, Sitting Height5 ft 4 in Nfigqf717 lb BMI Pbmxaesoql26.92 kg/m2 BSA Calculated1.74 Tobacco Usea) Yes Patient encouraged to stop using tobacco productsYes Falls Screening (Age 18+)c) Not medically indicated Physical Exam Constitutional: alert and in no acute distress. Neck: neck is supple, symmetric, trachea midline, no masses and no thyromegaly . Pulmonary: no increased work of breathing or signs of respira (more content not included)... Normal [facility] Tobacco Screening.on 022 Fall risk assessment c) Not medically indicated -[facility]-Sandu edgar 250 DO Work Phone: Tobacco use status CP a) Yes -[facility] edgar 250 DO Work Phone: Tobacco Screening. Yes [facility] Heart-Sandu edgar 250 DO Work Phone: [...] Physician: Dr. Brett Gongora DO Diagnosis: [facility] equipment agreement signed. JEANMARIE understands monitor is to be returned on: 02/24/2022 Monitor number [id number] applied. Holter monitor returned and downloaded. Holter monitor printed and placed on Dr. Brett Gongora DO desk to dictate. Diagnosis/Problems Assessed History of syncope (V15.89) (Z87.898) Future Appointments Date/TimeProviderSpecialty Site 05/05/2022 11:20 Brett Reich DOCardiology703 [facility] 2 Madhav 250 DO Signatures Electronically signed by : LEANA Trejo; Feb 25 2022 12:14PM EST (Author) Electronically signed by : Brett Gongora DO; Mar 18 2022 3:39PM EST (Author) Normal [facility] Echocardiogramon 02-22-2022 Echocardiography [facility] dusky [address] [place] [address], [address] [place] [address] TRANSTHORACIC ECHOCARDIOGRAM REPORT Patient Name: JEANMARIE FARIA Reading Physician: [id number] Bolivar Magana MD, [facility] Study Date: 02/22/2022 Referring [id number] BRETT ROLAN Physician: MRN/PID: [id number] PCP: Aris Stewart MD Accession/Order#: [id number] [facility] Location: Date of : 1965 Fellow: Gender: F Nurse: Admit Date: Apparel Pattern Maker: Fern Cardona RDCS, RVT Height: 162.56 cm CC Report to: Weight: 63.05 kg Study Type: Echocardiogram BSA: 1.68 m2 Blood Pressure: 128 /70 mmHg Diagnosis/ICD: I42.2-Other hypertrophic cardiomyopathy; R06.00-Dyspnea, unspecified Indication: VT and PTCA-11/2021, Tobacco Abuse, Syncope Procedure/CPT: Echo Limited-09675 Study Detail: The following Echo studies were [...] 36.90 cm LVOT Diameter: 2.10 cm (1.8-2.4cm) [id number] Bolivar Magana MD, FACC Electronically signed on 02/24/2022 at 8:25:04 PM Final Normal [facility] Echocardiography Please click on the link to view the study images Normal -[facility] edgar 250 DO Work Phone: MG MAMM SCREEN 3D GIANNI CADon 02-21-2022 MG MAMM SCREEN 3D GIANNI CAD Patient: JEANMARIE FARIA Exam Date: 02/21/2022 : 1965 Gender:F Ordering : DR ARIS STEWART DElbertOElbert Admission #: [id number] Family : Order #: [id number] CLICK HERE TO VIEW EXAM RADIOLOGY REPORT PROCEDURE: MAMMOGRAM SCREENING 3D BILATERAL CAD COMPARISON: None. INDICATIONS: Screening for malignant neoplasm of breast Calculator Name NCI Breast Cancer Risk Assessment Tool 5 Year Breast Cancer Risk 1.90% Lifetime Breast Cancer Risk 13.60% Personal Breast Cancer No Personal Ovarian Cancer No Treatments None Family Cancers None LOCATION: [facility] BREAST COMPOSITION: Scattered areas fibroglandular density. [...] MD on 02/21/2022 at 14:37 Normal [facility] Cov[facility]-19 [facility])on SARS-CoV-2 (COVID-19) RNA NEVA+probe Ql (Unsp spec) Not detected Normal NOT DETECTED [facility] Comment on above: Result Comment: This test is not yet approved or cleared by the [place] FDA. When there are no FDA-approved or cleared tests available, and other criteria are met, FDA can make tests available under an emergency access mechanism called an Emergency Use Authorization (EUA). The EUA for this test is supported by the [place] of Health and Human Service's (HHS's) declaration [...] consistent with SARS-CoV-2. Performed By: #### [facility] #### [facility] [address] [place], [place] [id number] Dr. Jozef Marrero Office Visit (Cardiology)on 01-25-2022 [...] we can help. You may also call 9-845-GWFZ-NOW for free resources and assistance.; Status:Complete - Retrospective Authorization; Done: 25Jan2022 Tobacco Use Screening; Status:Complete; Done: 12Phr9834 Patient Instructions Please bring all medicines, vitamins, [...] 56-year-old female returns following recent non-ST elevation [place], , Discharged December 16, following revascularization of [...] has a history of heart transplantation in [place], and was sent to a [facility] with similar flulike illness and was diagnosed with influenza. Patient remains on appropriate postinfarction guideline directed medical therapies, she still smoking 1/2 pack cigarettes a day but is cut back quite a bit. We continue to camp counselor her extensively on tobacco cessation and [...] TabletTAKE 1 (more content not included)... Normal Targeted Growth Tobacco Screening.on 022 Adult depression screening assessment No [employer] Work Phone: Adult depression screening assessment Yes [facility] Work Phone: Fall risk assessment a) No falls within the last year [facility] Work Phone: Tobacco use status CPHS a) Yes [facility] Work Phone: Tobacco Screening. Yes [facility] Work Phone: Tobacco Screening. 2-More than half the days [facility] Work Phone: Tobacco Screening. 0-Not at all [facility] Work Phone: Tobacco Screening. 3-Nearly every day [facility] Work Phone: Tobacco Screening. Not difficult at all [facility] Work Phone: Blood hemoglobin measurement (mass/volume)Ordered By: Viviane Loco on 12-16-2021 Hemoglobin (Bld) [Mass/Vol] 14.1 g/dL 11.8-15.[address] [facility] Creatinine and Glomerular fi ltration rate.predicted panel (S/P/Bld)Ordered By: Viviane Loco on 12-16-2021 Creatinine [Mass/Vol] 0.72 mg/dL 0.44-1.03 [facility] Erythrocyte distribution wid th Auto (RBC) [Ratio]Ordered By: Viviane Loco on 12-16-2021 Erythrocyte distribution width (RBC) [Ratio] 14.4 % 11.9-15.[address] [facility] Estimated glomerular filtrat ion rate (GFR) non- AmericanOrdered By: Viviane Loco on 12-16-2021 GFR/1.73 sq M.predicted among non-blacks MDRD (S/P/Bld) [Vol rate/Area] > 60 mL/Min [facility] Hematocrit Auto (Bld) [Volum e fraction]Ordered By: Viviane Loco on 12-16-2021 Hematocrit (Bld) [Volume fraction] 42.2 % 34.0-46.[address] [facility] MCH Auto (RBC) [Entitic mass ]Ordered By: Viviane Loco on 12-16-2021 MCH (RBC) [Entitic mass] 29.8 pg 24.7-34.[address] [facility] MCHC Auto (RBC) [Mass/Vol]Or dered By: Viviane Loco on 12-16-2021 MCHC (RBC) [Mass/Vol] 33.3 g/dL 32.0-35.0 [facility] MCV Auto (RBC) [Entitic vol] Ordered By: Viviane Loco on 12-16-2021 MCV (RBC) [Entitic vol] 89.4 fL 80-[address] [facility] No Panel InformationOrdered By: Viviane Loco on 12-16-2021 Estimated GFR () > 60 mL/Min [facility] Comment on above: GFR estimated refere nce range: According to KDOQI guidelines, <60 ml/min/1.73m2 is sufficient to diagnose a patient with chronic kidney disease. Pharmacy Creatinine Clearance (Chem 77.[address] [facility] Platelet mean volume Auto (B ld) [Entitic vol]Ordered By: Viviane Loco on 12-16-2021 Platelet mean volume (Bld) [Entitic vol] 8.7 fL 6.3-10.[address] [facility] Platelets Auto (Bld) [#/Vol] Ordered By: Viviane Loco on 12-16-2021 Platelets (Bld) [#/Vol] 304 10*3/uL 150-[address] [facility] RBC Auto (Bld) [#/Vol]Ordere d By: Viviane Loco on 12-16-2021 RBC (Bld) [#/Vol] 4.72 10*6/uL 3.60-5.00 [facility] Serum or plasma calcium chuck urement (mass/volume)Ordered By: Viviane Loco on 12-16-2021 Calcium [Mass/Vol] 9.6 mg/dL 8.2-10.2 [facility] Serum or plasma chloride susan surement (moles/volume)Ordered By: Viviane Loco on 12-16-2021 Chloride [Moles/Vol] 105 mmol/L 95-114 [facility] Serum or plasma glucose chuck urement (mass/volume)Ordered By: Viviane Loco on 12-16-2021 Glucose [Mass/Vol] 90 mg/dL 70-100 [facility] Comment on above: ADA recommended refe rence rangeRandom Glucose Reference Range is dependent on time and content of last meal. Glucose of more than 200 mg/dL in a nonstressed, ambulatory subject supports the diagnosis of Diabetes Mellitus. Serum or plasma potassium me asurement (moles/volume)Ordered By: Viviane Loco on 12-16-2021 Potassium [Moles/Vol] 4.0 mmol/L 3.5-5.1 [facility] Serum or plasma sodium measu rement (moles/volume)Ordered By: Viviane Loco on 12-16-2021 Sodium [Moles/Vol] 136 mmol/L 136-146 [facility] Serum or plasma total carbon dioxide measurement (moles/volume)Ordered By: Viviane Loco on 12-16-2021 CO2 [Moles/Vol] 21.5 mmol/L 22.0-30.0 [facility] Serum or plasma urea nitroge n measurement (mass/volume)Ordered By: Viviane Loco on 12-16-2021 Urea nitrogen [Mass/Vol] 12 mg/dL 9-[address] [facility] Troponin I.cardiac [Mass/vol ume] in Serum or Plasma by High sensitivity methodOrdered By: Teo Gongora on 12-16-2021 Troponin I.cardiac High sensitivity method [Mass/Vol] 6412 pg/mL 0-[address] [facility] Comment on above: Results calledat 080 2 on 12/16/21 WBC Auto (Bld) [#/Vol]Ordere d By: Viviane Loco on 12-16-2021 WBC (Bld) [#/Vol] 12.5 10*3/uL 3.8-11.6 [facility] Basophils Auto (Bld) [#/Vol] Ordered By: Viviane Loco on 12-15-2021 Basophils (Bld) [#/Vol] 0.1 10*3/uL 0.0-0.[address] [facility] Basophils/100 WBC Auto (Bld) Ordered By: Viviane Loco on 12-15-2021 Basophils/100 WBC (Bld) 0.7 % [facility] Cholesterol [Mass/volume] in Serum or PlasmaOrdered By: Viviane Loco on 12-15-2021 Cholesterol [Mass/Vol] 262 mg/dL 140-200 [facility] Comment on above: Chol less than 200 m g/dl low riskChol 201-239 mg/dl borderline riskChol 240 mg/dl and greater high risk Cholesterol in LDL Calc [Mas s/Vol]Ordered By: Viviane Loco on 12-15-2021 Cholesterol in LDL [Mass/Vol] 202 mg/dL 0-[address] [facility] Comment on above: LDL ATP III CLASSIFI CATIONLDL less than 100 mg/dL OptimalLDL 100-129 mg/dL Near or above optimalLDL 130-159 mg/dL Borderline highLDL 160-189 mg/dL HighLDL greater than 189 mg/dL Very high Cholesterol in VLDL Calc [Ma ss/Vol]Ordered By: Viviane Loco on 12-15-2021 Cholesterol in VLDL [Mass/Vol] 27 mg/dL [facility] Eosinophils Auto (Bld) [#/Vo l]Ordered By: Viviane oLco on 12-15-2021 Eosinophils (Bld) [#/Vol] 0.1 10*3/uL 0.0-0.[address] [facility] Eosinophils/100 WBC Auto (Bl d)Ordered By: Viviane Loco on 12-15-2021 Eosinophils/100 WBC (Bld) 0.5 % [facility] Laboratory - Hematology and Cell countsOrdered By: Viviane Loco on 12-15-2021 Nucleated RBC/100 WBC (Bld) [Ratio] 0.1 % 0-0.[address] [facility] WBC (Bld) [#/Vol] 13.3 10*3/uL 4.5-11.0 [facility] Lymphocytes Auto (Bld) [#/Vo l]Ordered By: Viviane Loco on 12-15-2021 Lymphocytes (Bld) [#/Vol] 3.8 10*3/uL 1.00-4.[address] [facility] Lymphocytes/100 WBC Auto (Bl d)Ordered By: Viviane Loco on 12-15-2021 Lymphocytes/100 WBC (Bld) 28.9 % [facility] Monocytes Auto (Bld) [#/Vol] Ordered By: Viviane Loco on 12-15-2021 Monocytes (Bld) [#/Vol] 1.3 10*3/uL 0.0-0.[address] [facility] Monocytes/100 WBC Auto (Bld) Ordered By: Viviane Loco on 12-15-2021 Monocytes/100 WBC (Bld) 9.5 % [facility] Neutrophils Auto (Bld) [#/Vo l]Ordered By: Viviane Loco on 12-15-2021 Neutrophils (Bld) [#/Vol] 8.0 10*3/uL 1.8-7.[address] [facility] Neutrophils/100 WBC Auto (Bl d)Ordered By: Viviane Loco on 12-15-2021 Neutrophils/100 WBC (Bld) 60.4 % [facility] Serum or plasma high density lipoprotein (HDL) cholesterol measurementOrdered By: Viviane Loco on 12-15-2021 Cholesterol in HDL [Mass/Vol] 33 mg/dL 35-[address] [facility] Comment on above: HDL CHOL ATP-III CLA SSIFICATION Cardiovascular RiskHDL > or equal to 60 mg/dL LOWHDL < 40 mg/dL HIGH Serum or plasma total choles terol/high density lipoprotein (HDL) cholesterol mass ratOrdered By: Viviane Loco on 12-15-2021 Cholesterol.total/Chol esterol in HDL [Mass ratio] 7.9 {ratio} [facility] Triglyceride [Mass/volume] i n Serum or PlasmaOrdered By: Viviane Loco on 12-15-2021 Triglyceride [Mass/Vol] 135 mg/dL 35-[address] [facility] Comment on above: TRIG ATP III CLASSIF ICATIONTRIG less than 150 mg/dL NormalTRIG 150-199 mg/dL Borderline highTRIG 200-500 mg/dL High TRIG greater than 500 mg/dL Very highStandard traceable to the Center for Disease Conrtrol and Prevention (CDC) test method. AMYLASEon 12-14-2021 Amylase [Catalytic activity/Vol] 33 U/L Normal 25-115 [facility] Comment on above: Performed By: #### A MY, LIVER, BMP, LIPA, HSTROPN ####[facility] [address] [place] [address]Dr. Jozef Marrero CBC W MANUAL DIFFon 12-15-19 22 ATYPICAL LYMPH # 2.72 103/ul Normal [facility] Comment on above: Performed By: #### C JENN ####[facility] [address] [place] [address]Dr. Jozef Marrero ATYPICAL LYMPH % 17 % Normal [facility] Comment on above: Performed By: #### C JENN ####[facility] [address] [place] [address]Dr. Jozef Marrero BAND # Normal 0.0-0.3 [facility] Comment on above: Performed By: #### C JENN ####[facility] [address] [place] [address]Dr. Jozef Marrero BAND % Normal 0-5 [facility] Comment on above: Performed By: #### C JENN ####[facility] [address] [place], [place] [address]Dr. Jozef Marrero BASOM # 0.00 103/ul Normal 0.00-0.10 [facility] Comment on above: Performed By: #### C JENN ####[facility] [address] [place] [address]Dr. Jozef Marrero BASOM % 0.0 % Critically low 0.2-2.0 [facility] Comment on above: Performed By: #### C JENN ####[facility] [address] [place] [address]Dr. Jozef Marrero BLAST # Normal [facility] Comment on above: Performed By: #### C JENN ####[facility] [address] [place], [place] [address]Dr. Jozef Marrero BLAST % Normal [facility] Comment on above: Performed By: #### C JENN ####[facility] [address] [place], [place] [address]Dr. Jozef Marrero CORRECTED WBC Normal 4.0-11.0 [facility] Comment on above: Performed By: #### Bennett BARAJAS ####[facility] [address] [place] [phone]. Jozef Marrero EOS # 0.16 103/ul Normal 0.00-0.70 [facility] Comment on above: Performed By: #### Bennett BARAJAS ####[facility] [address] [place] [phone]. Jozef Marrero EOS% 1.0 % Normal 0.9-7.0 [facility] Comment on above: Performed By: #### Bennett BARAJAS ####[facility] [address] [place] [address]Dr. Jozef Marrero HCT 45.0 % Normal 36.0-48.0 [facility] Comment on above: Performed By: #### Bennett BARAJAS ####[facility] [address] [place] [address]Dr. Jozef Marrero HGB 15.2 g/dl Normal 12.0-16.0 [facility] Comment on above: Performed By: #### Bennett BARAJAS ####[facility] [address] [place] [address]Dr. Jozef Marrero LYMPHM # 3.68 103/ul Normal 1.20-3.80 [facility] Comment on above: Performed By: #### Bennett BARAJAS ####[facility] [address] [place] [address]Dr. Jozef Marrero LYMPHM% 23.0 % Normal 20.5-60.0 [facility] Comment on above: Performed By: #### Bennett BARAJAS ####[facility] [address] [place] [address]Dr. Jozef Marrero MCH 30.0 pg Normal 26.7-34.0 [facility] Comment on above: Performed By: #### Bennett BARAJAS ####[facility] [address] [place] [address]Dr. Jozef Marrero MCHC 33.8 g/dl Normal 29.9-35.2 [facility] Comment on above: Performed By: #### Bennett BARAJAS ####[facility] [address] [place], [place] [address]Dp. Jozef Marrero MCV 88.9 fL Normal 81.0-99.0 [facility] Comment on above: Performed By: #### C JENN ####[facility] [address] [place] [phone]. Jozef Marrero METAMYELOCYTE # Normal [facility] Comment on above: Performed By: #### C JENN ####[facility] [address] [place] [phone]. Jozef Marrero METAMYELOCYTE % Normal [facility] Comment on above: Performed By: #### C JENN ####[facility] [address] [place] [phone]. Jozef Marrero MONOM# 0.64 103/ul Normal 0.30-0.80 [facility] Comment on above: Performed By: #### C JENN ####[facility] [address] [place] [phone]. Jozef Marrero MONOM% 4.0 % Normal 1.7-12.0 [facility] Comment on above: Performed By: #### C JENN ####[facility] [address] [place] [address]Dr. Jozef Marrero MPV 10.3 fL Normal 9.5-13.5 [facility] Comment on above: Performed By: #### C JENN ####[facility] [address] [place] [phone]. Jozef Marrero MYELOCYTE # Normal [facility] Comment on above: Performed By: #### C JENN ####[facility] [address] [place] [phone]. Jozef Marrero MYELOCYTE % Normal [facility] Comment on above: Performed By: #### C JENN ####[facility] [address] [place] [phone]. Jozef Marrero NRBC Normal [facility] Comment on above: Performed By: #### C JENN ####[facility] [address] [place] [phone]. Jozef Marrero PLT 373 103/ul Normal 150-450 [facility] Comment on above: Performed By: #### Bennett BARAJAS ####[facility] [address] [place], [place] [address]Vj. Jozef Marrero RBC 5.06 106/ul Normal 4.20-5.40 [facility] Comment on above: Performed By: #### Bennett BARAJAS ####[facility] [address] [place] [phone]. Jozef Marrero RDW 14.2 % Normal 11.0-15.0 [facility] Comment on above: Performed By: #### Bennett BARAJAS ####[facility] [address] [place] [address]Dr. Jozef Marrero SEG # 8.80 103/ul Critically high 1.40-6.50 [facility] Comment on above: Performed By: #### Bennett BARAJAS ####[facility] [address] [place] [phone]. Jozef Marrero SEG % 55.0 % Normal 43.0-75.0 [facility] Comment on above: Performed By: #### Bennett BARAJAS ####[facility] [address]onaq[address] [place] [address]Dr. Jozef Marrero WBC 16.0 103/ul Critically high 4.0-11.0 [facility] Comment on above: Performed By: #### Bennett BARAJAS ####[facility] [address] [place] [phone]. Jozef Marrero Cov[facility]-19 PCR [facility])on 11-26 SARS-CoV-2 (COVID-19) RNA NEVA+probe Ql (Unsp spec) Not detected Normal NOT DETECTED [facility] Comment on above: Result Comment: When [...] for this test is supported by the [place] of Health and Human Service's declaration that [...] used). Performed By: #### C VDTBH #### [facility] [address] [place] [address] Dr. Jozef Marrero LIPASEon 12-14-2021 Lipase [Catalytic activity/Vol] 49.0 U/L Normal 23.0-300.0 [facility] Comment on above: Performed By: #### A MY, LIVER, BMP, LIPA, HSTROPN #### [facility] [address] [place] [address] Dr. Jozef Marrero LIVER PROFILEon 12-14-2021 Albumin [Mass/Vol] 4.0 g/dL Normal 3.4-5.0 [facility] Comment on above: Performed By: #### A MY, LIVER, BMP, LIPA, HSTROPN #### [facility] [address] [place] [address] Dr. Jozef Marrero Albumin/Globulin [Mass ratio] 0.9 {ratio} Normal [facility] Comment on above: Performed By: #### A MY, LIVER, BMP, LIPA, HSTROPN #### [facility] [address] [place] [address] Dr. Jozef Marrero ALP [Catalytic activity/Vol] 143 U/L Critically high 46-116 [facility] Comment on above: Performed By: #### A MY, LIVER, BMP, LIPA, HSTROPN #### [facility] [address] [place] [address] Dr. Jozef Marrero ALT [Catalytic activity/Vol] 21 U/L Normal 14-59 [facility] Comment on above: Performed By: #### A MY, LIVER, BMP, LIPA, HSTROPN #### [facility] [address] [place] [address] Dr. Jozef Marrero AST [Catalytic activity/Vol] 70 U/L Critically high 15-37 [facility] Comment on above: Performed By: #### A MY, LIVER, BMP, LIPA, HSTROPN #### [facility] [address] [place] [address] Dr. Jozef Marrero BILI, CONJUGATED 0.1 mg/dL Normal 0.0-0.3 [facility] Comment on above: Performed By: #### A MY, LIVER, BMP, LIPA, HSTROPN #### [facility] [address] [place] [address] Dr. Jozef Marrero Bilirubin [Mass/Vol] 0.4 mg/dL Normal 0.2-1.3 [facility] Comment on above: Performed By: #### A MY, LIVER, BMP, LIPA, HSTROPN #### [facility] [address] [place] [address] Dr. Jozef Marrero Globulin (S) [Mass/Vol] 4.4 g/dL Normal [facility] Comment on above: Performed By: #### A MY, LIVER, BMP, LIPA, HSTROPN #### [facility] [address] [place] [address] Dr. Jozef Marrero Protein [Mass/Vol] 8.4 g/dL Critically high 6.1-8.2 [facility] Comment on above: Performed By: #### A MY, LIVER, BMP, LIPA, HSTROPN #### [facility] [address] [place] [address] Dr. Jozef Marrero Laboratory - Chemistry and C hemistry - challengeOrdered By: Viviane Loco on 12-14-2021 Magnesium [Mass/Vol] 1.8 mg/dL 1.6-2.6 [facility] PROF CHEM 8 (BAS METB)on Anion gap [Moles/Vol] 14.0 mmol/L Normal [facility] Comment on above: Performed By: #### A MY, LIVER, BMP, LIPA, HSTROPN #### [facility] [address] [address] [address] Jozef Marrero Calcium [Mass/Vol] 9.4 mg/dL Normal 8.5-10.1 [facility] Comment on above: Performed By: #### A MY, LIVER, BMP, LIPA, HSTROPN #### [facility] [address] [address] [address] Jozef Marrero Chloride [Moles/Vol] 102 mmol/L Normal 98-107 [facility] Comment on above: Performed By: #### A MY, LIVER, BMP, LIPA, HSTROPN #### [facility] [address] [address] [address] Jozef Marrero CO2 [Moles/Vol] 26.4 mmol/L Normal 22.0-30.0 [facility] Comment on above: Performed By: #### A MY, LIVER, BMP, LIPA, HSTROPN #### [facility] [address] [place] [address] Dr. Jozef Marrero Creatinine [Mass/Vol] 0.69 mg/dL Normal 0.52-1.04 [facility] Comment on above: Performed By: #### A MY, LIVER, BMP, LIPA, HSTROPN #### [facility] [address] [place] [address] Dr. Jozef Marrero EGFR-AF CHINESE >60 Normal >=60 [facility] Comment on above: Performed By: #### A MY, LIVER, BMP, LIPA, HSTROPN #### [facility] [address] [place] [address] Dr. Jozef Marrero EGFR-NON AF CHINESE >60 Normal >=60 [facility] Comment on above: Performed By: #### A MY, LIVER, BMP, LIPA, HSTROPN #### [facility] [address] [place] [address] Dr. Jozef Marrero Glucose [Mass/Vol] 111 mg/dL Critically high 74-106 [facility] Comment on above: Performed By: #### A MY, LIVER, BMP, LIPA, HSTROPN #### [facility] [address] [address] [address] Jozef Marrero Potassium [Moles/Vol] 3.4 mmol/L Normal 3.4-5.0 [facility] Comment on above: Performed By: #### A MY, LIVER, BMP, LIPA, HSTROPN #### [facility] [address] [address] [address] Jozef Marrero Sodium [Moles/Vol] 139 mmol/L Normal 137-145 [facility] Comment on above: Performed By: #### A MY, LIVER, BMP, LIPA, HSTROPN #### [facility] [address] [address] [address] Jozef Marrero Urea nitrogen [Mass/Vol] 8.0 mg/dL Normal 7.0-18.0 [facility] Comment on above: Performed By: #### A MY, LIVER, BMP, LIPA, HSTROPN #### [facility] [address] [address] [address] Jozef Marrero Urea nitrogen/Creatinine [Mass ratio] 11.6 mg/mg Normal [facility] Comment on above: Performed By: #### A MY, LIVER, BMP, LIPA, HSTROPN #### [facility] [address] [address] [address] Jozef Marrero PROTIMEon 12-14-2021 INR Coag (PPP) [Relative time] 1.05 {INR} Normal [facility] Comment on above: Performed By: #### P TT, PT ####[facility] [id number] [address]Dr. Jozef Marrero INR GUIDELINES SEE BELOW Normal [facility] Comment on above: Result Comment: CAMILA RED INR: 2.0 - 3.0 CONDITIONS NOT LISTED BELOW 2.5 - 3.5 FOR PROSTHETIC HEART VALVE REPLACEMENT 2.5 - 3.5 RECURRENT THROMBOSIS Performed By: #### P TT, PT ####[facility] [id number] [address]Dr. Jozef Marrero PT Coag (PPP) [Time] 11.3 s Normal 9.0-11.6 [facility] Comment on above: Performed By: #### P TT, PT ####[facility] [address] [place], [place] [address]Ku. Jozef Marrero PTTon 12-14-2021 aPTT Coag (Bld) [Time] 33.0 s Normal 22.3-36.2 [facility] Comment on above: Performed By: #### P TT, PT ####[facility] [address] [place], [place] [address]Cz. Jozef Marrero TROPONIN, HIGH SENSITIVITYon 12-14-2021 HSTROP 5000.2 pg/mL Critically high 4.0-35.5 [facility] Comment on above: Result Comment: CUT- OFF POINTS HAVE BEEN ESTABLISHED BASED ON THE FOURTH UNIVERSAL DEFINITIONS OF MYOCARDIAL INFARCTION. THE UPPER REFERENCE LIMIT (URL) OF TROPONIN, DEFINED THE 99TH PERCENTILE OF cTnI DISTRIBUTION IN A REFERENCE POPULATION, HAS BEEN CONFIRMED THE DECISION THRESHOLD FOR VT DIAGNOSIS. test repeated critical value verified Performed By: #### A MY, LIVER, BMP, LIPA, HSTROPN ####[facility] [address] [place], [place] [address]Qr. Jozef Marrero US SINGLE QUAD RT UPPERon [...] MARIANN MARQUES Date: 2021-12-14 14:13 Normal [facility] XR CHEST 1 Von 12-14-2021 XR [...] by: YESIKA URBINA Date: 2021-12-14 13:23 Normal [facility] Vital Signs Date Time Vital Sign Value Performing Clinician Facility 07-13-2023 13:12-0500 Body temperature 96.91 [degF] Saleem Fitch MD Work Phone: [facility] 07-13-2023 13:12-0500 Body weight 70.31 kg Saleem Fitch MD Work Phone: [facility] 07-13-2023 13:12-0500 Diastolic blood pressure 67 mm[Hg] Saleem Fitch MD Work Phone: [facility] 07-13-2023 13:12-0500 Heart rate 76 /min Saleem Fitch MD Work Phone: [facility] 07-13-2023 13:12-0500 Respiratory rate 18 /min Saleem Fitch MD Work Phone: [facility] 07-13-2023 13:12-0500 SaO2% (BldA) [Mass fraction] 98 % Saleem Fitch MD Work Phone: [facility] 07-13-2023 13:12-0500 Systolic blood pressure 103 mm[Hg] Saleem Fitch MD Work Phone: [facility] 07-10-2023 10:42-0500 Body height 162.6 cm Isabel DUEÑAS Work Phone: [facility] 07-10-2023 10:42-0500 Body mass index (BMI) [Ratio] 26.09 kg/m2 Isabel DUEÑAS Work Phone: [facility] 07-10-2023 10:42-0500 Body weight 68.95 kg Isabel Cagle WATCH TRAIN INSPECTOR-CLINICAL ADMINISTRATOR Work Phone: [facility] 07-10-2023 10:42-0500 Diastolic blood pressure 68 mm[Hg] Isabel Cagle WATCH TRAIN INSPECTOR-CLINICAL ADMINISTRATOR Work Phone: [facility] 07-10-2023 10:42-0500 Heart rate 74 /min Isabel Cagle WATCH TRAIN INSPECTOR-CLINICAL ADMINISTRATOR Work Phone: [facility] 07-10-2023 10:42-0500 Systolic blood pressure 110 mm[Hg] Isabel Cagle WATCH TRAIN INSPECTOR-CLINICAL ADMINISTRATOR Work Phone: [facility] 05-03-2023 12:19-0400 Body temperature 96.91 [degF] Saleem Fitch MD Work Phone: [facility] 05-03-2023 12:19-0400 Body weight 72.85 kg Saleem Fitch MD Work Phone: [facility] 05-03-2023 12:19-0400 Diastolic blood pressure 59 mm[Hg] Saleem Fitch MD Work Phone: [facility] 05-03-2023 12:19-0400 Heart rate 64 /min Saleem Fitch MD Work Phone: [facility] 05-03-2023 12:19-0400 Respiratory rate 18 /min Saleem Fitch MD Work Phone: [facility] 05-03-2023 12:19-0400 SaO2% (BldA) [Mass fraction] 98 % Saleem Fitch MD Work Phone: [facility] 05-03-2023 12:19-0400 Systolic blood pressure 91 mm[Hg] Saleem Fitch MD Work Phone: [facility] 04-26-2023 12:31-0400 Body temperature 97.11 [degF] Saleem Fitch MD Work Phone: [facility] 04-26-2023 12:31-0400 Body weight 72.94 kg Saleem Fitch MD Work Phone: [facility] 04-26-2023 12:31-0400 Diastolic blood pressure 72 mm[Hg] Saleem Fitch MD Work Phone: [facility] 04-26-2023 12:31-0400 Heart rate 56 /min Saleem Fitch MD Work Phone: [facility] 04-26-2023 12:31-0400 Respiratory rate 16 /min Saleem Fitch MD Work Phone: [facility] 04-26-2023 12:31-0400 SaO2% (BldA) [Mass fraction] 98 % Saleem Fitch MD Work Phone: [facility] 04-26-2023 12:31-0400 Systolic blood pressure 106 mm[Hg] Saleem Fitch MD Work Phone: [facility] 04-19-2023 10:14-0400 Body temperature 96.91 [degF] Saleem Fitch MD Work Phone: [facility] 04-19-2023 10:14-0400 Body weight 72.12 kg Saleem Fitch MD Work Phone: [facility] 04-19-2023 10:14-0400 Diastolic blood pressure 76 mm[Hg] Saleem Fitch MD Work Phone: [facility] 04-19-2023 10:14-0400 Heart rate 64 /min Saleem Fitch MD Work Phone: [facility] 04-19-2023 10:14-0400 Respiratory rate 18 /min Saleem Fitch MD Work Phone: [facility] 04-19-2023 10:14-0400 SaO2% (BldA) [Mass fraction] 98 % Saleem Fitch MD Work Phone: [facility] 04-19-2023 10:14-0400 Systolic blood pressure 112 mm[Hg] Saleem Fitch MD Work Phone: [facility] 04-05-2023 12:23-0400 Body temperature 98.01 [degF] Saleem Fitch MD Work Phone: [facility] 04-05-2023 12:23-0400 Body weight 72.58 kg Saleem Fitch MD Work Phone: [facility] 04-05-2023 12:23-0400 Diastolic blood pressure 76 mm[Hg] Saleem Fitch MD Work Phone: [facility] 04-05-2023 12:23-0400 Heart rate 73 /min Saleem Fitch MD Work Phone: [facility] 04-05-2023 12:23-0400 Respiratory rate 18 /min Saleem Fitch MD Work Phone: [facility] 04-05-2023 12:23-0400 SaO2% (BldA) [Mass fraction] 98 % Saleem Fitch MD Work Phone: [facility] 04-05-2023 12:23-0400 Systolic blood pressure 116 mm[Hg] Saleem Fitch MD Work Phone: [facility] 03-28-2023 14:48-0400 Body temperature 96.91 [degF] Saleem Fitch MD Work Phone: [facility] 03-28-2023 14:48-0400 Diastolic blood pressure 67 mm[Hg] Saleem Fitch MD Work Phone: [facility] 03-28-2023 14:48-0400 Heart rate 74 /min Saleem Fitch MD Work Phone: [facility] 03-28-2023 14:48-0400 Respiratory rate 18 /min Saleem Fitch MD Work Phone: [facility] 03-28-2023 14:48-0400 SaO2% (BldA) [Mass fraction] 96 % Saleem Fitch MD Work Phone: [facility] 08-01-2023 14:48-0400 Systolic blood pressure 100 mm[Hg] Saleem Fitch MD Work Phone: [facility] 12-30-2022 14:50-0400 Diastolic blood pressure 75 mm[Hg] DO Aris House Work Phone: [facility] 12-30-2022 14:50-0400 Heart rate 67 /min DO Aris House Work Phone: [facility] 12-30-2022 14:50-0400 Respiratory rate 14 /min DO Aris Stewart Work Phone: [facility] 12-30-2022 14:50-0400 SaO2% (BldA) [Mass fraction] 99 % DO Aris Stewart Work Phone: [facility] 12-30-2022 14:50-0400 Systolic blood pressure 122 mm[Hg] DO Aris Stewart Work Phone: [facility] 12-30-2022 13:50-0400 Body temperature 97.7 [degF] DO Aris Stewart Work Phone: [facility] 12-30-2022 11:36-0400 Body height 162.56 cm DO Aris Stewart Work Phone: [facility] 12-30-2022 11:36-0400 Body weight 76.65 kg DO Aris Stewart Work Phone: [facility] 12-28-2022 11:26-0400 Body height 162.56 cm Aris P House Work Phone: [facility] DO Work Phone: 12-28-2022 11:26-0400 Body mass index (BMI) [Ratio] 29.01 kg/m2 Aris P House Work Phone: [facility] [address] DO Work Phone: 12-28-2022 11:26-0400 Body surface area Derived from formula 1.82 m2 Aris P House Work Phone: [facility] [address] DO Work Phone: 12-28-2022 11:26-0400 Body weight 76.66 kg Aris P House Work Phone: [facility] DO Work Phone: 12-28-2022 11:26-0400 Diastolic blood pressure 68 mm[Hg] Aris P House Work Phone: [facility] DO Work Phone: 12-28-2022 11:26-0400 Heart rate 68 /min Aris P House Work Phone: [facility] DO Work Phone: 12-28-2022 11:26-0400 Systolic blood pressure 132 mm[Hg] Aris P House Work Phone: [facility] DO Work Phone: 05-05-2022 11:41-0400 Body height 162.56 cm Aris P House Work Phone: [facility] DO Work Phone: 05-05-2022 11:41-0400 Body mass index (BMI) [Ratio] 25.92 kg/m2 Aris P House Work Phone: [facility] DO Work Phone: 05-05-2022 11:41-0400 Body surface area Derived from formula 1.74 m2 Aris P House Work Phone: [facility] DO Work Phone: 05-05-2022 11:41-0400 Body weight 68.49 kg Aris P House Work Phone: [facility] DO Work Phone: 05-05-2022 11:41-0400 Diastolic blood pressure 82 mm[Hg] Aris P House Work Phone: [facility] DO Work Phone: 05-05-2022 11:41-0400 Heart rate 80 /min Aris P House Work Phone: [facility] DO Work Phone: 05-05-2022 11:41-0400 Systolic blood pressure 120 mm[Hg] Aris P House Work Phone: [facility] DO Work Phone: 02-22-2022 09:45-0400 0 1 Aris P House Work Phone: [facility] DO Work Phone: Comment on above: [id number] 01-25-2022 15:28-0400 Body height 162.56 cm Aris P House Work Phone: [facility] Work Phone: 01-25-2022 15:28-0400 Body mass index (BMI) [Ratio] 23.86 kg/m2 Aris P House Work Phone: [facility] Work Phone: 01-25-2022 15:28-0400 Body surface area Derived from formula 1.68 m2 Aris P House Work Phone: [facility] Work Phone: 01-25-2022 15:28-0400 Body weight 63.05 kg Aris P House Work Phone: [facility] Work Phone: 01-25-2022 15:28-0400 Diastolic blood pressure 76 mm[Hg] Aris P House Work Phone: [facility] Work Phone: 01-25-2022 15:28-0400 Heart rate 72 /min Aris P House Work Phone: [facility] Work Phone: 01-25-2022 15:28-0400 Systolic blood pressure 122 mm[Hg] Aris Edwards House Work Phone: [facility] Work Phone: 01-25-2022 15:28-0400 12 1 Aris Edwards House Work Phone: [facility] Work Phone: Comment on above: PHQ-9 TS 12-16-2021 16:00-0400 Body temperature 98.5 [degF] MD Viviane Loco Work Phone: [facility] 12-16-2021 16:00-0400 Diastolic blood pressure 90 mm[Hg] MD Viviane Loco Work Phone: [facility] 12-16-2021 16:00-0400 Heart rate 70 /min MD Viviane Loco Work Phone: [facility] 12-16-2021 16:00-0400 SaO2% (BldA) [Mass fraction] 100 % MD Viviane Loco Work Phone: [facility] 12-16-2021 16:00-0400 Systolic blood pressure 131 mm[Hg] MD Viviane Loco Work Phone: [facility] 12-16-2021 08:00-0400 Respiratory rate 18 /min MD Viviane Loco Work Phone: [facility] 12-16-2021 06:00-0400 Body weight 62.5 kg MD Viviane Loco Work Phone: [facility] 12-15-2021 11:00-0400 Body height 162.56 cm MD Viviane Loco Work Phone: [facility] 12-14-2021 16:55-0400 Body mass index (BMI) [Ratio] 25.4 kg/m2 MD Viviane Loco Work Phone: [facility] Encounters Encounter Date Encounter Type Care Provider Facility Start: 08-03-2023 End: 08-03-2023 ambulatory SHAIKH ABBY Not Available Start: 07-13-2023 End: 07-13-2023 ambulatory ARSI STEWART SR Facility:[facility] Start: 07-13-2023 End: 07-13-2023 Patient encounter procedure Saleem Fitch MD Work Phone: Radiation Oncology Comment on above: Neoplasm of lung (Pr imary Dx) Start: 07-10-2023 End: 07-10-2023 ambulatory [facility] Start: 07-10-2023 End: 07-10-2023 Office outpatient visit 15 minutes [facility] WATCH TRAIN INSPECTOR-CLINICAL ADMINISTRATOR Work Phone: [facility] Comment on above: SVT (supraventricula r tachycardia) (Primary Dx); Hypertrophic nonobstructive cardiomyopathy (CMS/HCC); ASHD (arteriosclerotic heart disease); Essential hypertension; Mixed hyperlipidemia; Angina pectoris (CMS/HCC); Non-small cell cancer of left lung (CMS/HCC); BMI 26.0-26.9,adult Start: 06-19-2023 End: 06-20-2023 ambulatory [facility] Start: 06-19-2023 End: 06-19-2023 ambulatory [facility] Start: 06-15-2023 ambulatory [facility] Start: 06-13-2023 End: 06-14-2023 ambulatory [facility] Start: 05-11-2023 End: 05-11-2023 ambulatory ARIS STEWART SR Facility:[facility] Start: 05-11-2023 Patient encounter procedure Saleem Fitch MD Work Phone: [facility] Start: 05-11-2023 Radiation Oncology Note Saleem waldrop MD Work Phone: Radiation Oncology Comment on above: Completion Note Start: 05-10-2023 End: 05-10-2023 ambulatory ARIS STEWART SR Facility:[facility] Start: 05-09-2023 End: 05-09-2023 ambulatory ARIS STEWART SR Facility:[facility] Start: 05-08-2023 End: 05-08-2023 ambulatory ARIS STEWART SR Facility:[facility] Start: 05-05-2023 End: 05-05-2023 ambulatory ARIS STEWART SR Facility:[facility] Start: 05-04-2023 End: 05-04-2023 ambulatory ARIS STEWART SR Facility:[facility] Start: 05-03-2023 End: 05-03-2023 ambulatory ARIS STEWART SR Facility:[facility] Start: 05-03-2023 End: 05-03-2023 Patient encounter procedure Saleem Fitch MD Work Phone: Radiation Oncology Comment on above: Neoplasm of lung (Pr imary Dx) Start: 05-02-2023 End: 05-02-2023 ambulatory ARIS STEWART SR Facility:[facility] Start: 04-28-2023 End: 04-28-2023 ambulatory ARIS STEWART SR Facility:[facility] Start: 04-27-2023 End: 04-27-2023 ambulatory ARIS STEWART SR Facility:[facility] Start: 04-26-2023 End: 04-26-2023 ambulatory ARIS STEWART SR Facility:[facility] Start: 04-26-[address] Brett Gongora Facility: Start: 04-26-2023 End: 04-26-2023 Patient encounter procedure Saleem Fitch MD Work Phone: Radiation Oncology Comment on above: Smoking greater than 40 pack years (Primary Dx); Neoplasm of lung Start: 04-25-2023 End: 04-25-2023 ambulatory ARIS STEWART SR Facility:[facility] Start: 04-21-2023 End: 04-21-2023 ambulatory ARIS STEWART SR Facility:[facility] Start: 04-19-2023 End: 04-19-2023 ambulatory ARIS STEWART SR Facility:[facility] Start: 04-19-2023 End: 04-19-2023 Patient encounter procedure Saleem Fitch MD Work Phone: Radiation Oncology Comment on above: Neoplasm of lung (Pr imary Dx) Start: 04-18-2023 End: 04-18-2023 ambulatory ARIS CHAU HOUSE SR Facility:[facility] Start: 04-18-2023 Patient encounter procedure Bri Bernard LMT Hematology/Oncology Comment on above: Muscle soreness (Kelli cuate Dx) Start: 04-17-2023 End: 04-17-2023 ambulatory ARIS STEWART SR Facility:[facility] Start: 04-14-2023 End: 04-14-2023 ambulatory ARIS STEWART SR Facility:[facility] Start: 04-13-2023 End: 04-13-2023 ambulatory ARIS STEWART SR Facility:[facility] Start: 04-12-2023 End: 04-12-2023 ambulatory ARIS STEWART SR Facility:[facility] Start: 04-11-2023 End: 04-11-2023 ambulatory AIRS STEWART SR Facility:[facility] Start: 04-11-2023 Telephone encounter Saleem Fitch MD Work Phone: Radiation Oncology Comment on above: Missed Appointment Start: 04-10-2023 End: 04-10-2023 ambulatory ARIS STEWART SR Facility:[facility] Start: 04-07-2023 End: 04-07-2023 ambulatory ARIS STEWART SR Facility:[facility] Start: 04-06-2023 End: 04-06-2023 ambulatory ARIS STEWART SR Facility:[facility] Start: 04-05-2023 End: 04-05-2023 ambulatory ARIS STEWART SR Facility:[facility] Start: 04-05-2023 End: 04-05-2023 Patient encounter procedure Saleem Fitch MD Work Phone: Radiation Oncology Comment on above: Neoplasm of lung (Pr imary Dx) Start: 04-04-2023 End: 04-04-2023 ambulatory ARIS ISAC HOUSE SR Facility:[facility] Start: 04-03-2023 End: 04-03-2023 ambulatory ARIS STEWART SR Facility:[facility] Start: 03-31-2023 End: 03-31-2023 ambulatory ARIS STEWART SR Facility:[facility] Start: 03-30-2023 End: 03-30-2023 ambulatory [facility] Facility:[facility] Start: 03-29-2023 End: 03-29-2023 ambulatory [facility] SR Facility:[facility] Start: 03-28-2023 End: 03-28-2023 Nursing evaluation of [...] above: Appointment Start: 03-17-2023 End: 03-20-2023 ambulatory [facility] SR Facility:[facility] Start: 03-17-2023 End: 03-20-2023 Patient encounter procedure Saleem Fitch MD Work Phone: [facility] Comment on above: Neoplasm of lung (Pr imary Dx) Start: 03-17-2023 Radiation Oncology Note Saleem waldrop MD Work Phone: Radiation Oncology Comment on above: Simulation Note Treatment Planning Start: 03-15-2023 End: 03-15-2023 ambulatory [facility] Facility:[facility] Start: 03-14-2023 Telephone encounter Stan tracey MD, PhD Work Phone: [facility] Comment on above: Received Outside Med ical Records Start: 03-10-2023 End: 03-11-2023 ambulatory [facility] Start: 03-10-2023 End: 03-10-2023 ambulatory [facility] Start: 03-08-2023 Telephone encounter Saleem Fitch MD Work Phone: Radiation Oncology Comment on above: Patient Update; Card iac Clearance External Referrals/r esources; Consult Start: 03-08-2023 End: 03-08-2023 ambulatory ARCHANA RODRIGUEZ Facility:[facility] Start: 03-03-2023 End: 03-04-[address] [facility] Start: 03-03-2023 End: 03-03-2023 ambulatory [facility] Start: 02-22-2023 End: 02-23-2023 ambulatory [facility] Start: 12-30-[address] Brett Gongora Facility:[id number] Start: 12-30-2022 [facility], Provider: Brett Gongora, Status: Pen, Time: 12:00 PM Aris P House Work Phone: [facility] DO Work Phone: Start: 12-30-2022 End: 12-30-2022 ambulatory Aris Stewart Facility:[facility] Start: 12-30-2022 End: 12-30-2022 Admission to same day surgery center DO Aris House Work Phone: [facility] Worker Work Phone: Start: 12-30-2022 End: 12-30-2022 ambulatory DO Aris House Work Phone: [facility] Work Phone: Start: 12-28-2022 Office outpatient vi sit 40 minutes Aris P House Work Phone: [facility] DO Work Phone: Start: 12-28-[address] Brett Gongora Facility: Start: 11-10-[address] Brett Gongora Facility: Start: 08-11-2022 End: 08-12-[address] ARIS STEWART Facility:[facility] Start: 06-23-2022 End: 06-23-2022 ambulatory LUCIO WEST Facility:[facility] Start: 05-05-[address] Brett Gongora Facility: Start: 05-05-2022 Office outpatient vi sit 25 minutes Aris Stewart Work Phone: [facility] DO Work Phone: Start: 03-01-2022 Chart Update Aris P Hous e Work Phone: [facility] DO Work Phone: Start: 02-22-2022 Patient encounter procedure Aris Stewart Work Phone: [facility] DO Work Phone: Start: 02-21-2022 End: 02-22-[address] ARIS STEWART Facility:[facility] Start: 02-18-2022 End: 02-18-2022 ambulatory ALLY SANTORO Facility:[facility] Start: 02-17-2022 End: 02-17-2022 ambulatory LUCIO WEST Facility:[facility] Start: 01-28-2022 End: 04-07-[address] BRETT GONGORA Facility:[facility] Start: 01-26-2022 End: 01-26-[address] BRETT GONGORA Facility:[facility] Start: 01-25-2022 Office outpatient vi sit 40 minutes Aris Stewart Work Phone: [facility] Work Phone: Start: 12-15-2021 End: 12-16-2021 Evaluation and management of inpatient MD Viviane Loco Work Phone: [facility] Start: 12-14-2021 End: 12-14-2021 ambulatory ALLY SANTORO Facility:[facility] Procedures Date Procedure Procedure Detail Performing Clinician Start: 07-11-2023 Ecg routine ecg w/least 12 lds w/i&r Isabel Cagle WATCH TRAIN INSPECTOR-CLINICAL ADMINISTRATOR Work Phone: Start: 12-30-2022 CL Iliac/Fem w/LHC [...] Viviane lira Work Phone: Start: 12-15-2021 MD Viviaen Loco Work Phone: Appendectomy [facility]is P [employer] Work Phone: Hernia repair Aris [facility] Work Phone: History of placement of stent for coronary artery disease History of heart artery stent DO Aris [employer] Work Phone: Hysterectomy Aris P Pat Work Phone: Operation on breast Aris P [employer] Work Phone: Operation on colon Aris P [employer] Work Phone: Total colonoscopy Aris P [employer] Work Phone: Plan of Treatment Date Care Activity Detail Author Start: 06-19-2024 Diabetes mellitus screening Diabetes Screening [facility] Start: 01-09-2024 End: 01-09-2024 Patient encounter procedure 01/09/2024 9:30 AM EDT Office Visit [facility] [address] [place] [address] Brett Gongora DO [address] [facility] [address] [place] [address] [facility] Start: 07-10-2023 End: 07-10-2024 Basic metabolic 2000 panel - Serum or Plasma Basic Metabolic Panel Lab Routine SVT (supraventricular tachycardia) Hypertrophic nonobstructive cardiomyopathy (CMS/HCC) Expected: 07/10/2023 (Approximate), Expires: 07/10/[address] [facility] Service Area Work Phone: Comment on above: Expected: 07/10/2023 (Approximate), Expires: 07/10/2024 Start: 04-28-2023 Influenza vaccination [facility] Start: 02-08-2023 FUV, Provider: Brett Gongora, Status: Pen, Time: 10:00 AM FUV, Provider: Brett Gongora, Status: Pen, Time: 10:00 AM [facility] DO Work Phone: Start: 12-30-2022 End: 12-30-[address] [facility] Start: 11-10-2022 FUV, Provider: Brett Gongora, Status: Pen, Time: 10:00 AM FUV, Provider: Brett Gongora, Status: Pen, Time: 10:00 AM [facility] DO Work Phone: Start: 08-28-2022 DEPRESSION ASSESSMENT DEPRESSION ASS ESSMENT [facility] Start: 05-05-2022 FUV, Provider: Brett Gongora, Status: Pen, Time: 11:20 AM FUV, Provider: Brett Gongora, Status: Pen, Time: 11:20 AM [facility] Work Phone: Start: 02-22-2022 HOLTER 48, Provider: XENA BARRETT MONUMENT SETTER 1,[id number], Status: Pen, Time: 10:30 AM HOLTER 48, Provider: XENA BARRETT MONUMENT SETTER 1,[id number], Status: Pen, Time: 10:30 AM [facility] Work Phone: Start: 02-22-2022 ECHO, Provider: SANDRA HHVI ULTRASOUND 01,[id number], Status: Pen, Time: 9:45 AM ECHO, Provider: SANDRA HHVI ULTRASOUND 01,[id number], Status: Pen, Time: 9:45 AM [facility] Work Phone: Start: 2017 SHINGRIX VACCINE (1 of 2) SHINGRIX VACCINE (1 of 2) [facility] Start: 2017 Zoster Vaccines (1 o f 2) Zoster Vaccines (1 of 2) [facility] Start: 2012 COLOGUARD (FIT-DNA) COLOGUARD (FIT-D NA) [facility] Start: 2012 Colonoscopy COLONOSCOPY [facility] Start: 2012 COLORECTAL CANCER SCREENING COLORECTAL CANCER SCREENING [facility] Start: [address] COLONOGRAPHY [facility] Start: 2012 DIABET[facility]CREEN [facility] Start: 2012 Diabetes Screening Diabetes Screenin g [facility] Start: 2012 FECAL OCCULT BLOOD FECAL OCCULT BLOO D [facility] Start: 2012 Lipid 1996 panel - Serum or Plasma Lipid Screening [facility] Start: 2012 LIPID SCREEN LIPID SCREEN [facility] Start: 2012 SIGMOIDOSCOPY SIGMOIDOSCOPY [facility] Start: [address] [facility] Start: 2007 Screening for malign ant neoplasm of breast Mammogram [facility] Start: 1997 HPV TESTING HPV TESTING [facility] Start: 1989 DTaP/Tdap/Td Vaccine s (1 - Tdap) DTaP/Tdap/Td Vaccines (1 - Tdap) [facility] Start: 1988 PAP TESTING PAP TESTING [facility] Start: 1988 Screening for malign ant neoplasm of cervix [facility] Start: 1986 Urine microalbumin profile [facility] Start: 1985 HEPATITIS C SCREENING HEPATITIS C [facility] Start: 1985 Hepatitis C screening Hepatitis C [facility] Start: 1985 HIV SCREENING HIV SCREENING [facility] Start: 1973 PNEUMOCOCCAL (1 - PCV) PNEUMOCOCCAL (1 - PCV) [facility] Start: 1973 Pneumococcal vaccination Pneumococcal Vaccine (1 - PCV) [facility] Start: 1973 Pneumococcal Vaccine : Pediatrics (0 to 5 Years) and At-Risk Patients (6 to 64 Years) (1 - PCV) Pneumococcal Vaccine: Pediatrics (0 to 5 Years) and At-Risk Patients (6 to 64 Years) (1 - PCV) [facility] Start: 1968 MMR Vaccines (1 of 1 - Standard series) MMR Vaccines (1 of 1 - Standard series) [facility] Start: 04-09-1968 COVID-19 VACCINE (#1) COVID-19 VACCI NE (#1) [facility] Start: 1967 HEPATITIS B (1 of 3 - 3-dose series) HEPATITIS B (1 of 3 - 3-dose series) [facility] Start: 1967 Hepatitis B Vaccine (1 of 3 - 3-dose series) Hepatitis B Vaccine (1 of 3 - 3-dose series) [facility] Start: 1967 Hepatitis B Vaccines (1 of 3 - 3-dose series) Hepatitis B Vaccines (1 of 3 - 3-dose series) [facility] Start: 1967 HIV screening HIV Screening [facility] Start: 1967 Lipid panel Lipid Panel [facility] Start: 1967 Screening for malign ant neoplasm of colon [facility] Start: 1967 Yearly Adult Physical Yearly Adult P hysical [facility] CT SIM PLANNING RADIATION ONCOLOGY CT SIM PLANNING RADIATION ONCOLOGY Radiology Routine Neoplasm of lung Ordered: 03/17/2023 [facility] Work Phone: Comment on above: Ordered: 03/17/2023 ECG 12 Lead ECG 12 Lead ECG Routine SVT (supraventricular tachycardia) 07/11/2023 1:33 PM EST [facility] Work Phone: End: 04-10-2024 Mri brain brain stem w/o w/contrast material MRI BRAIN WO/W IVCON Radiology Routine Secondary malignant neoplasm of brain (HCC) Malignant neoplasm of left lung, unspecified part of lung (HCC) 1 Occurrences starting 03/10/2023 until 04/10/2024 [facility] Work Phone: Comment on above: 1 Occurrences starti ng 03/10/2023 until 04/10/2024 Patient Education [facility] Work Phone: Patient referral [facility] Work Phone: [facility] Payers Date Payer Category Payer Self-pay [id number] 2022 Medicaid [facility] MEDICAID [facility] COMMUN[employer] PLAN MEDICAID OF [place] [id number] 2022-Present [phone] [address] [place] [address] Medicaid [id number] 2022 Private Health Insurance [facility] [id number] 2022-Present [address] [place] [address] [id number] 2022 Private Health Insurance [id number] 1965 Unknown [id number] 2.16.840.1.916526.3.579.2. 593 1967 Unknown [id number] 2.16.840.1.191239.3.579.2. 593 1967 Unknown [id number] 2.16.840.1.161245.3.579.2. 593 1967 Unknown [id number] 2.16.840.1.049284.3.579.2. 593 1967 Unknown [id number] 2.16.840.1.617254.3.579.2. 593 1967 Unknown [id number] 2.16.840.1.212793.3.579.2. 593 1967 Unknown [id number] 2.16.840.1.315954.3.579.2. 593 1967 Unknown [id number] 2.16.840.1.151426.3.579.2. 593 1967 Unknown [id number] 2.16.840.1.865044.3.579.2. 356 1967 Unknown [id number] 2.16.840.1.870747.3.579.2. 356 1967 Unknown [id number] 2.16.840.1.420685.3.579.2. 356 1967 Unknown [id number] 2.16.840.1.781841.3.579.2. 356 1967 Unknown [id number] 2.16.840.1.764593.3.579.2. 356 1967 Unknown [id number] 2.16.840.1.990196.3.579.2. 1244 1967 Unknown [id number] 2.16.840.1.323739.3.579.2. 1259 1959 Private Health Insurance [id number] Unknown [id number] Unknown Unknown [id number] [id number]. 531 Social History Date Type Detail Facility Start: 12-15-2021 End: 12-30-2022 Tobacco smoking status ALIS Smoker (finding) [facility] Start: 1965 Sex Assigned At Female F [facility] Start: 03-08-2023 End: 07-13-2023 Current smoker Current smoker [facility] Comment on above: 1/2 ppd; 3-4 daily; Start: 03-08-2023 Tobacco smoking stat us ALIS Smokes tobacco daily [facility] End: 08-28-2022 History of tobacco use Cigarette Smoker [facility] Start: 03-08-2023 End: 07-10-2023 Tobacco use and exposure Smokeless tobacco non-user [facility] Start: 03-08-2023 End: 05-03-2023 Alcohol intake Ex-drinker (finding) [facility] Start: 03-08-2023 End: 07-13-2023 Tobacco use panel [facility] Start: 1965 Sex Assigned At Not on file [facility] National Score (1-100), lower number is lower risk [address] [facility] Start: 07-10-2023 Tobacco smoking stat us NHIS Ex-smoker [facility] Start: 07-10-2023 Alcohol intake Lifetime non-d chantal (finding) [facility] Work Phone: Start: 06-30-2023 End: 07-10-2023 Exposure to SARS-CoV-2 (event) Not sure [facility] Medical Equipment Procedure Code Equipment Code Equipment Origin al Text Equipment Identifier Dates Drug-eluting coronary artery stent, dgb-irkdtmnipazwn-uj lymer-coated ()[id number] FDA Start: 12-15-2021 Drug-eluting coronary artery stent, amx-xwsdiqqozheff-an lymer-coated ()[id number] [id number] FDA Start: 12-15-2021 Drug-eluting coronary artery stent, xde-czrxxdwzsryly-ny lymer-coated ()[id number] [id number] FDA Start: 12-15-2021 Goals Date Patient Goal Desired Activity /State Functional Status Date Assessment Result Facility 01-25-2022 PHQ-9 [id number] Moderate (10-14) [facility] Work Phone: 12-16-2021 Functional status Patient at Baseline [facility] Work Phone: Mental Status Date Assessment Result Facility 12-16-2021 Cognitive function Cognitive Sta tus Patient at Baseline [facility] Work Phone: Clinical Notes 12-14-2021 to 09-25-2023 Saleem Fitch MD - 07/13/2023 10:35 PM ESTAssessment & Plan Note - LEANA Ramos - 07/11/2023 1:26 PM ESTAssessment & Plan Note - ROSEMARY Ramos CNP - 07/11/2023 1:26 PM EST Note Date & Type Note Facility 09-25-2023 Note HNO ID: [id number] Author: MICHAEL AGUILAR LSW Service: ? Author Type: Installations Inspector Type: Progress Notes Filed: 09/25/2023 16:11 Note [...] will follow up as appropriate. ELOY Whiteside [facility] 07-14-2023 Note HNO ID: [id number] Author: Saleem Fitch MD Service: ? Author [...] in coordination with Dr. Rodriguez at the [facility] on 05/11/2023 (6,000 cGy delivered in 30 fractions with concurrent carboplatin/paclitaxel). INTERVAL HISTORY/ROS: Ms. Faria returns to clinic today for routine follow-up approximately two months after the completion of her radiation treatments. In the interim, she was hospitalized shortly after completion of treatment for pneumonia and arrhythmia (tachycardia). Since discharge she has been on supplemental oxygen xiipay-xav-sppka via nasal cannula at 2 L/min. She feels that her cough is improved and denies any hemoptysis but still has some tightness in the chest with deep breaths. She denies any esophagitis that she is swallowing well. She is seeing a material processor and is currently on a nebulizer 3 [...] in coordination with Dr. Rodriguez at the [facility] on 05/11/2023 (6,000 cGy delivered in 30 fractions with concurrent carboplatin/paclitaxel). Ms. Faria continues to recover from the acute toxicities of her recent course of chemoradiation which was complicated by recent hospitalization for pneumonia. She is showing slow improvement but continues to require supplemental oxygen and will follow with her material processor plans for PFTs as well as pulmonary [...] 4 months. Th (more content not included)... [facility] 07-13-2023 History of Present illness Narrative [...] in coordination with Dr. Rodriguez at the [facility] on 05/11/2023 (6,000 cGy delivered in 30 fractions with concurrent carboplatin/paclitaxel). INTERVAL HISTORY/ROS: Ms. Faria returns to clinic today for routine follow-up approximately two months after the completion of her radiation treatments. In the interim, she was hospitalized shortly after completion of treatment for pneumonia and arrhythmia (tachycardia). Since discharge she has been on supplemental oxygen cdvbji-mgo-ubcoh via nasal cannula at 2 L/min. She feels that her cough is improved and denies any hemoptysis but still has some tightness in the chest with deep breaths. She denies any esophagitis that she is swallowing well. She is seeing a material processor and is currently on a nebulizer 3 [...] in coordination with Dr. Rodriguez at the [facility] on 05/11/2023 (6,000 cGy delivered in 30 fractions with concurrent carboplatin/paclitaxel). Ms. Faria continues to recover from the acute toxicities of her recent course of chemoradiation which was complicated by recent hospitalization for pneumonia. She is showing slow improvement but continues to require supplemental oxygen and will follow with her material processor plans for PFTs as well as pulmonary [...] of said technology/software. documented in this encounter [facility] 07-11-2023 Evaluation + Plan note Associated Problem(s): Non-small cell lung cancer (CMS/HCC) Reports diagnosed February 22, 2023 Treated with radiation and chemotherapy Pulmonary stent has been removed PET scan pending [facility] Work Phone: 07-11-2023 Evaluation + Plan note Associated Problem(s): BMI 26.0-26.9,adult Reviewed the merits of healthy lifestyle choices on overall cardiovascular health. [facility] Work Phone: 07-11-2023 Miscellaneous Notes Associated [...] without recurrent symptoms documented in this encounter [facility] Work Phone: 07-11-2023 Evaluation + Plan note Associated Problem(s): Mixed hyperlipidemia High intensity statin [facility] Work Phone: 07-11-2023 Evaluation + Plan note Associated Problem(s): Essential hypertension Optimal in office [facility] Work Phone: 07-11-2023 Evaluation + Plan note Associated Problem(s): SVT (supraventricular tachycardia) June 2023 ER presentation due to SVT 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 Potassium 2.9 at that time PE ruled out Dose of metoprolol increased and Cardizem added [facility] Work Phone: 07-11-2023 Evaluation + Plan note Associated Problem(s): Angina pectoris (CMS/HCC) Resolved [facility] Work Phone: 07-11-2023 Evaluation + Plan note Associated Problem(s): Hypertrophic nonobstructive cardiomyopathy (CMS/HCC) January 2022 TTE Hyperdynamic LVEF 75 to 80% Severe symmetric LVH with cavitary obliteration during systole with no significant gradient. December 2022 cardiac cath LVEF 80% [facility] Work Phone: 07-11-2023 Evaluation + Plan note Associated Problem(s): ASHD (arteriosclerotic heart disease) November 2021 PCI mCX & dRCA December 2022 cardiac cath mCX patent stent dRCA patent stent LAD normal Current daily activity less than 4 METS without recurrent symptoms [facility] Work Phone: 07-10-2023 History of Present [...] new symptoms arise. Dr. Rolan Cagle MSN, WATCH TRAIN INSPECTOR-CLINICAL ADMINISTRATOR, PMHNP-BC [facility] Please excuse any errors in grammar or translation related to this dictation. Voice recognition software was utilized to prepare this document. documented in this encounter [facility] Work Phone: 07-10-2023 Instructions LEANA Ramos [...] Dr. Gongora months documented in this encounter [facility] Work Phone: 06-19-2023 Note Cardiology consulted for tachycardia EKG and telemetry show Atrial tachycardia Will start Cardizem CD 120 mg daily Close outpatient follow recommended I asked her to see PCP or cardiology within 1 week. Maritza Pardo MD [place] [facility] 06-19-2023 Note Patient: Jeanmarie chavarria Procedure Summary Date: 06/19/23 Room / Location: [facility] Main Operating Room Anesthesia Start: 1208 Anesthesia [...] able to get In touch with her mat sewer () who stated that any arrythmias such [...] per anesthesia protocol. No notable events documented. [facility] 06-19-2023 Note Airway Date/Time: 06/19/2023 12:15 PM Urgency: elective Airway not difficult General Information and Staff Patient location during procedure: OR Anesthesiologist: Elisabeth Kendall MD Resident/SUCTION PLATE CARRIER CLEANER/CAA: KYLE Wan Performed: resident/SUCTION PLATE CARRIER CLEANER/CAA Indications and Patient Condition Indications for airway management: anesthesia Spontaneous ventilation: present Sedation level: deep Preoxygenated: yes Patient position: sniffing Mask difficulty assessment: 0 - not attempted Final Airway Details Final airway type: supraglottic airway Successful airway: i-gel Size 4 Number of attempts at approach: 1 Ventilation between attempts: none Number of other approaches attempted: 1 [facility] 06-19-2023 Note Patient: Jeanmarie chavarria Procedure Summary Date: 06/19/23 Room / Location: [facility] Main Operating Room Anesthesia Start: 1208 Anesthesia [...] VSS, SV well, arousable, report to RN [facility] 06-19-2023 Note Patient: Jeanmarie chavarria Procedure Information Date/Time: 06/19/23 1200 Scheduled providers: Betito Foss MD; Elisabeth Kendall MD; KYLE Wan Procedure: BRONCHOSCOPY Location: [facility] Main Operating Room Relevant Problems No relevant [...] Plan discussed with CAA. Additional Equipment Requests [facility] 06-15-2023 Note Attestation signed by [...] Age: 57 y.o. : 1965 Account No.: [id number] Chief complaint: Stent reversion HPI Jenamarie Faria [...] was initiated by the patient and conducted [id number]-[id number] with use of audio-only real time telephone communication between patient and provider for a virtual visit. Verbal consent to provide and bill for this service was obtained on 06/15/2023. No signature was obtained due to the COVID-19 pandemic. Julio Taylor Pulmonary and critical care fellow [facility]. 06/15/23 11:39 AM [facility] 05-11-2023 Note HNO ID: [id number] Author: Saleem Fitch MD Service: ? Author Type: Physician Type: Progress Notes Filed: 05/19/2023 12:32 AM Note Text: [facility] Radiation Oncology Department RADIATION ONCOLOGY - [...] in coordination with Dr. Rodriguez at the [facility]. AREA TREATED: Chest/Mediastinum/Left Neck DELIVERED DOSE: [...] Signed cc: Archana Rodriguez MD [address] [place] [address] [address] Betito Foss MD [address] [place] [address] [address] [facility] DO [address] [facility] [place] [address] Via [facility] 05-11-2023 Note HNO ID: [id number] Author: Saleem Fitch MD Service: ? Author [...] again regarding smoking cessation. Saleem Fitch MD [facility] 05-11-2023 History of Present illness Narrative [facility] Radiation Oncology Department RADIATION ONCOLOGY - [...] in coordination with Dr. Rodriguez at the [facility]. AREA TREATED: Chest/Mediastinum/Left Neck DELIVERED DOSE: [...] Signed cc: Archana Rodriguez MD [address] [place] [facility] [place] [address] [address] Betito Foss MD [address] [place] [facility] [address] [address] [facility] DO [address] [facility] [place] [address] Via documented in this encounter [facility] 05-04-2023 Note HNO ID: [id number] Author: Saleem Fitch MD Service: ? Author [...] radiation treatment as planned. Saleem Fitch MD [facility] 05-03-2023 History of Present illness Narrative [...] Saleem Fitch MD documented in this encounter [facility] 04-27-2023 Note HNO ID: [id number] Author: Saleem Fitch MD Service: ? Author [...] again regarding smoking cessation. Saleem Fitch MD [facility] 04-26-2023 History of Present illness Narrative [...] Saleem Fitch MD documented in this encounter [facility] 04-26-2023 Nurse Note Status: Post-menopausal. documented in this encounter [facility] 04-19-2023 Note HNO ID: [id number] Author: Saleem Fitch MD Service: ? Author [...] tapering dose of steroids. Saleem Fitch MD [facility] 04-19-2023 History of Present illness Narrative [...] Saleem Fitch MD documented in this encounter [facility] 04-18-2023 Note HNO ID: [id number] Author: Bri Bernard LMT Service: ? Author [...] Date: April 18, 2023 Time: 2:18 PM [facility] 04-18-2023 History of Present illness Narrative [...] Time: 2:18 PM documented in this encounter [facility] 04-12-2023 Note HNO ID: [id number] Author: Saleem Fitch MD Service: ? Author [...] will continue to monitor. Saleem Fitch MD [facility] 04-11-2023 Miscellaneous Notes LM for pt to CB regarding missed XRT appt. Nilsa Deal RN documented in this encounter [facility] 04-05-2023 Note HNO ID: [id number] Author: Saleem Fitch MD Service: ? Author [...] to help with expectoration. Saleem Fitch MD [facility] 04-05-2023 History of Present illness Narrative [...] Saleem Fitch MD documented in this encounter [facility] 04-05-2023 Nurse Note Status: Post-menopausal. documented in this encounter [facility] 03-28-2023 Note HNO ID: [id number] Author: Saleem Fitch MD Service: ? Author [...] the course of treatment. Saleem Fitch MD [facility] 03-28-2023 History of Present illness Narrative [...] Saleem Fitch MD documented in this encounter [facility] 03-28-2023 Nurse Note Aromatherapy to promote a healing environment. TYPE: container SCENT: citrus blend Aromatherapy education materials were provided and reviewed with the patient. Toney Bailon LPN documented in this encounter [facility] 03-28-2023 Nurse Note Radiation Therapy - Patient Education Note PATIENT NAME: Jeanmarie Faria PATIENT March 28, 2023 [facility] FACILITY/LOCATION: [facility] READINESS TO LEARN Cognitive Ability: Alert and [...] need for social work, van service, and community associate. Patient is scheduled to see community associate at [facility]. Was approved? No Signed by: Toney Bailon LPN documented in this encounter [facility] 03-28-2023 Nurse Note Status: Patient states there is no possibility she is at this time. documented in this encounter [facility] 03-28-2023 Note Education (RUY) JEANMARIE FARIA ([id number]) 1965 F Date Time Provider Department 03/28/23 TONEY BAILON Reason for Visit: Patient Education [91] Visit Notes: >> Toney Bailon LPN Tue Mar 28, 2023 3:21 PM Status: Signed Radiation Therapy - Patient Education Note PATIENT NAME: Jeanmarie Faria PATIENT March 28, 2023 [facility] FACILITY/LOCATION: [facility] READINESS TO LEARN Cognitive Ability: Alert and [...] need for social work, van service, and community associate. Patient is scheduled to see community associate at [facility]. Was approved? No Signed by: Toney Bailon [...] Encounter Status:Closed by TONEY BAILON on 03/28/23 [facility] 03-23-2023 Miscellaneous Notes I notified Jeanmarie of her upcoming new start appointment. She is scheduled for 03/28/23 at 2:30. Patient is in agreement with this appt. Toney Bailon LPN documented in this encounter [facility] 03-22-2023 Note HNO ID: [id number] Author: Saleem Fitch MD Service: ? Author Type: Physician Type: Progress Notes Filed: 03/21/2023 11:27 PM Note Text: Radiation Oncology - New Patient/Consult Note PATIENT NAME: Jeanmarie Faria PATIENT REQUESTING PHYSICIAN: Archana Rodriguez MD DIAGNOSIS: Locally advanced non-small lung cancer (staging pending) PATIENT IDENTIFICATION: This patient was seen in the Department of Radiation Oncology at the [facility] with Saleem Fitch MD. Final recommendations will be communicated back to the requesting physician by way of the shared medical record, or letter to requesting physician via US mail. HISTORY OF PRESENT ILLNESS: Ms. Faria is a 57-year-old woman in [place], [place] who was found to have a [...] met with Dr. Rodriguez medical oncology at [facility] and referred to material processor Dr. Foss as an outpatient. She underwent [...] the past year and having had an VT approximately a year ago. She does note [...] Ms. Faria is and lives in the [place], [place] area. 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 She notes an approximate 06-zlzt-xalp history of smoking and has reduced down [...] PATHOLOGIC DATA: 03/03/2023 (more content not included)... [facility] 03-18-2023 Note HNO ID: [id number] Author: Saleem Fitch MD Service: ? Author [...] which included preparing to see the patient, szaa-sn-gvga patient care, counseling and educating the patient/family/caregiver, and communicating results to the patient/family/caregiver. This document has been created with the use of voice recognition technology. It may contain inaccuracies, misspellings, inaccurate syntax or inappropriate word context that are a result of the inadequacies/shortcomings of said technology/software. [facility] 03-17-2023 History of Present illness Narrative [...] which included preparing to see the patient, ozcj-yx-xejg patient care, counseling and educating the patient/family/caregiver, and communicating results to the patient/family/caregiver. This document has been created with the use of voice recognition technology. It may contain inaccuracies, misspellings, inaccurate syntax or inappropriate word context that are a result of the inadequacies/shortcomings of said technology/software. documented in this encounter [facility] 03-17-2023 Note HNO ID: [id number] Author: Saleem Fitch MD Service: ? Author Type: Physician Type: Progress Notes Filed: 03/25/2023 12:33 AM Note Text: JEANMARIE FARIA [id number] 03/17/2023 [facility] Department of Radiation Oncology Treatment Planning [...] Electronically Signed Saleem Fitch M.D. :10 PM [facility] 03-17-2023 Note HNO ID: [id number] Author: Saleem Fitch MD Service: ? Author Type: Physician Type: Progress Notes Filed: 06/06/2023 9:45 AM Note Text: JEANMARIE FARIA [id number] 03/17/2023 [facility] Radiation Oncology Department SIMULATION NOTE DATE OF SIMULATION: 03/17/2023 THERAPIST: Gayathri Valdez MACHINE: ScaleDB mCT DIAGNOSIS: C34.82 Malignant neoplasm of overlapping sites of left bronchus and lung AREA: LUNG CONTRAST: IV Oral Consent in Epic: Yes PATIENT POSITION: Supine. FIXATION DEVICE: In order to achieve accurate and reproducible treatments, the patient is immobilized with THE ORFIT AIO SYSTEM. 50ML OF [id number] WAS INJECTED VIA THE RIGHT WRIST SIPS OF 20ML OF [id number] DILUTED IN 450 ML OF WATER WAS [...] Saleem Fitch M.D. / GHANSHYAM :18 PM [facility] 03-17-2023 Note HNO ID: [id number] Author: Saleem Fitch MD Service: ? Author Type: Physician Type: Progress Notes Filed: 03/21/2023 12:34 AM Note Text: JEANMARIE FARIA [id number] 03/17/2023 [facility] Radiation Oncology Department SIMULATION NOTE DATE OF SIMULATION: 03/17/2023 THERAPIST: Gayathri [employer] MACHINE: [employer] DIAGNOSIS: AREA: LUNG CONTRAST: IV Oral Consent in Epic: Yes PATIENT POSITION: Supine. FIXATION DEVICE: In order to achieve accurate and reproducible treatments, the patient is immobilized with THE ORFIT AIO SYSTEM. 50ML OF [id number] WAS INJECTED VIA THE RIGHT WRIST SIPS OF 20ML OF GJZF426 DILUTED IN 450 ML OF WATER WAS [...] Saleem Fitch M.D. / GHANSHYAM 34:08 AM [facility] 03-17-2023 History of Present illness Narrative JEANMARIE FARIA [id number] 03/17/2023 [facility] Radiation Oncology Department SIMULATION NOTE DATE OF SIMULATION: 03/17/2023 THERAPIST: Gayathri [employer] MACHINE: [employer] DIAGNOSIS: C34.82 Malignant neoplasm of overlapping sites of left bronchus and lung AREA: LUNG CONTRAST: IV Oral Consent in Epic: Yes PATIENT POSITION: Supine. FIXATION DEVICE: In order to achieve accurate and reproducible treatments, the patient is immobilized with THE ORFIT AIO SYSTEM. 50ML OF JATE549 WAS INJECTED VIA THE RIGHT WRIST SIPS OF 20ML OF DHGQ105 DILUTED IN 450 ML OF WATER WAS [...] GHANSHYAM 37:18 PM documented in this encounter [facility] 03-17-2023 History of Present illness Narrative JEANMARIE FARIA [id number] 03/17/2023 [facility] Department of Radiation Oncology Treatment Planning [...] M.D. 35:10 PM documented in this encounter [facility] 03-15-2023 Note HNO ID: [id number] Author: Nancy Sanabria RT(R) Service: ? Author [...] 0810 PATIENT DISCHARGED TO: Ambulatory patient, left [place] department area. A Diagnostic radioactive procedure has taken place, with no further precautions necessary other than routine body substance precautions. More information regarding radiation safety can be found using this link: [email or web address] SIGNATURE: RT Letty(R) PATIENT NAME: Jeanmarie Faria DATE: March 15, 2023 TIME: 11:18 AM PAGER/CONTACT #: [facility] 03-15-2023 Note HNO ID: [id number] Author: Diane Boston RN Service: ? Author [...] DATE: March 15, 2023 TIME: 8:04 AM [facility] 03-14-2023 Miscellaneous Notes Received Hem/Onc consult notes 03/07/23 from [facility] Record scanned in pernell Alvarez asst documented in this encounter [facility] 03-10-2023 Note Patient: Jeanmarie chavarria Procedure Summary Date: 03/10/23 Room / Location: [facility] Main Operating Room Anesthesia Start: 1102 Anesthesia [...] no known notable events for this encounter. [facility] 03-10-2023 Note Patient: Jeanmarie chavarria Procedure Information Date/Time: 03/10/23 1030 Scheduled providers: Betito Foss MD; Marielle Germain MD Procedure: BRONCHOSCOPY Location: [facility] Main Operating Room Past Medical History: Diagnosis [...] resident and medical student. Additional Equipment Requests [facility] 03-10-2023 Miscellaneous Notes Images from the original note were not included. Thoracic Surgery Consultation - review of records for appointment scheduling Received medical records from the office of [facility] [address] [id number] Patient is being referred to Stan Garcia [...] position. ebus 03/03/2023 Imaging PET/CT: 03/15/[address] [place] [address] (chest) 02/19/23 Cardiopulmonary Testing PFT's/Six: requested [...] Fitch to discuss PET scan 03/15 at [facility], await results Nancy Beach RN LOCAL PATIENT Received Fax from Dr. Archana Terrykerri Faria is being referred to Stan Garcia M.D., Ph. D. Or Lamonte Guerra by Dr. Archana Rodriguez [address] [place] [address] Patient diagnosis/Reason for consult: Lung Cancer Referral triage process explained: No Patient will receive a call from Thoracic NPM after triage review with surgeon to discuss any additional testing and/or consults that will be scheduled. Pt will then receive a call from our scheduling office for scheduling. Please call pt at [phone]. Patient was informed consultation could be at [place] or [facility]: No Patient Registration: Registration complete/updated: yes Insurance card(s) scanned in [facility] with in the past year: Yes: Date: 03/08/23 Pt's [place] is Pending. Ok to communicate to pt via [employer] not asked Medical Records: Records in [facility] (internal [facility] records): Yes Imaging in [facility] (internal [facility] records): Yes Care Everywhere - queried yes, downloaded Yes Linked Outside Organizations (list): [facility]; [place]; [facility] Records Requested: No Date: N/A Outside Hospital(s) requested records from: n/a Received: yes Uploaded: Yes. Waiting on additional records: No. Missing (list): N/A OSH Pathology Slides Requested: no Date: N/A Outside Hospital(s) slides requested from: n/a OSH Radiology Imaging Requested: yes Date: March 08, 2023 Outside Hospital(s) requested imaging from: [place]. Imaging will be received via Electronic Transfer Received: Yes Imaging uploaded: Yes Waiting on additional: No Missing (list): n/a Additional providers added to Care Teams: Yes Additional Notes/Comments: n/a Enct routed to: Zana Louis NPM for Triage Alber Fernandez, insurance administrative assistant documented in this encounter [facility] 03-08-2023 Miscellaneous Notes I notified Carla with Dr. Gongora's office, cardiology, that Jeanmarie will be scheduled for a bronchoscopy with pulmonary stent placement with Dr. Foss, [place] material processor, and will need cardiac clearance. I provided Carla with Dr. Foss's phone and fax number and she notify Dr. Gongora. Toney Bailon LPN documented in this encounter [facility] 03-03-2023 Note No concerns as per c all back guidelines [facility] 03-03-2023 Note Patient: Jeanmarie chavarria Procedure Summary Date: 03/03/23 Room / Location: [facility] Main Operating Room Anesthesia Start: 1334 Anesthesia [...] per anesthesia protocol. No notable events documented. [facility] 03-03-2023 Note Airway Date/Time: 03/03/2023 1:45 PM Urgency: elective Airway not difficult General Information and Staff Patient location during procedure: OR Anesthesiologist: Jacky Yuan MD Resident/SUCTION PLATE CARRIER CLEANER/CAA: Isiah Alves MD Performed: resident/SUCTION PLATE CARRIER CLEANER/CAA Indications and Patient Condition Indications for airway management: anesthesia Spontaneous ventilation: present Sedation level: deep Preoxygenated: yes Patient position: sniffing Final Airway Details Final airway type: supraglottic airway Successful airway: i-gel Size 4 Number of attempts at approach: 1 Number of other approaches attempted: 0 [facility] 03-03-2023 Note Patient: Jeanmarie chavarria Procedure Summary Date: 03/03/23 Room / Location: [facility] Main Operating Room Anesthesia Start: 1334 Anesthesia Stop: Procedure: BRONCHOSCOPY Diagnosis: Mediastinal adenopathy Scheduled Providers: Betito Foss MD; Jacky Yuan MD Responsible Provider: Jacky Yuan MD Anesthesia Type: general ASA Status: 4 Anesthesia Post Transport Note Transport to: PACU O2 Route: room air Patient Monitor: direct observation Transport: uneventful Patient condition is: stable [facility] 03-03-2023 Note Patient: Jeanmarie chavarria Procedure Information Date/Time: 03/03/23 1330 Scheduled providers: Betito Foss MD; Jacky Yuan MD Procedure: BRONCHOSCOPY Location: [facility] Main Operating Room Relevant Problems No relevant [...] Plan discussed with resident. Additional Equipment Requests [facility] 02-24-[address] Rodriguez . 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 I have reviewed the images and the patient will need an urgent EBUS-TBNA. Orders placed Betito Foss MD Interventional Pulmonary Medicine Pulmonary and Critical Care Medicine [facility] Physicians [facility] 12-30-2022 Discharge summary Note Date/Time December 30, 2022 1:19pm [facility] [address] [place] [address] Discharge Summary Signed Patient: Jeanmarie Faria MR#: [id number] : 1965 Acct:[id number] Age/Sex: 57 / F Adm Date: 3 [...] % (Auto) 60.8, Lymph % (Auto) 27.2, [place] % (Auto) 10.1, Eos % (Auto) 1.0, Baso % (Auto) 0.9, Nucleat RBC Rel Count 0.2, Neut # (Auto) 7.8 H, Lymph # (Auto) 3.5, [place] # (Auto) 1.3 H, Eos # (Auto) [...] cessation Additional Instructions: DISCHARGE INSTRUCTIONS FOR CARDIAC PLASMA TABLE OPERATOR PHONE NUMBER OF YOUR PHYSICIAN: [phone] PROCEDURE: Heart Cath The following instructions have [...] cold, numb, blue or white, call the mat sewer immediately. 4. ACTIVITY: You are advised to [...] bottle, follow the instructions on the bottle. [facility] is not responsible for incorrect prescription information [...] signed by Teo Gongora DO> 12/30/22 1321 [facility] Work Phone: 1(232) 259-646105-05-[address] [facility] Discharge instructions Additional Instructions DISCHARGE INSTRUCTIONS FOR CARDIAC PLASMA TABLE OPERATOR PHONE NUMBER OF YOUR PHYSICIAN: [phone] PROCEDURE: Heart Cath The following instructions have [...] cold, numb, blue or white, call the mat sewer immediately. 4. ACTIVITY: You are advised to [...] bottle, follow the instructions on the bottle. [facility] is not responsible for incorrect prescription information provided by the patient during their visit. Do not stop your medications without consulting your health care provider. Please take the list with you to your next doctor's appointment.[facility] Work Phone: 1(847) 435-118304-21-2022 Discharge summary Author Viviane Loco [facility] December 16, 2021 5:37pm Note Date/Time December 16, 2021 4:2 9pm [facility] [address] [place] [address] Discharge Summary Signed with Addenda Patient: Jeanmarie Faria MR#: [id number] : 1965 Acct:[id number] Age/Sex: 56 / F Adm Date: 2 Loc: Room: [address] [place] [address]: Viviane Loco MD Copies to: [...] Final Diagnosis Final Discharge Diagnosis: Non-ST elevation VT status post intervention in circumflex and RCA Hyperlipidemia LVH hypertrophy with septal asymmetry Summary Hospital Course Hospital course: 56 years old female was transferred with non-ST elevation VT. Patient presentedwith shortness of breath and chest pain. Patient was found to have non-ST elevation VT with significantly abnormal EKG and elevated troponins. [...] Laboratory work up and Imaging studies reviewed alarm security or surveillance monitor - reviewed, no significant arrhythmias noted [...] doctor or pharmacist, without first calling the mat sewer who implanted the stent. If you require [...] weight lifting, stair steppers, etc. until the mat sewer approves these activities. Check with the mat sewer on your first follow-up visit. CALL YOUR PHYSICIAN at [phone]: -If bleeding should occur from the catheter insertion site- apply pressure to the site then immediately call us. -Report any fever, redness, drainage, increased swelling, or firmness at the catheter insertion site. Some bruising or slight swelling may be present at thetime of discharge. -Should arm or leg become cold, numb, white, or blue, contact the mat sewer immediately. -IF you should experience episodes of [...] is recommended. Please call Central Scheduling at [phone] to schedule your appointment.] The attending mat sewer or [facility] nurse clinician should provide you with specific instructions regarding activity, diet, medications, and further follow up for you. Follow the medication instructions provided on your discharge. If the dosages and instructions on this sheet differ from the dosage and instructions on the bottle, follow the instructions on the bottle. [facility] incorrect prescription information provided [...] appointment.) Documented By: Viviane Loco MD 12/16/21 5177 Signed By: <Electronically signed by Viviane Loco MD> 12/16/21 1629 [facility] Work Phone: 1(107) 278-891604-20-2022 Consult note Author Teo Gongora [facility] December 15, 2021 3:41pm Note Date/Time December 15, 2021 3:4 1pm [facility] [address] [place] [address] Cardiology Consult Note Signed Patient: Jeanmarie Faria MR#: [id number] : 1965 Acct:[id number] Age/Sex: 56 / F Adm Date: 2 Loc: Room: [address] [place] [address] Type : ADM INOo Attending Dr: Viviane Loco MD Copies to: DO Viviane Paredes MD W Scott Sheldon, DO~ Cardiology HPI History of Present Illness Consult Date: 12/15/21 Reason for Consult: Non-ST elevation VT HPI: Ms. Faria is a 56 year old female seen in interventional cardiology consultationat the request of [place] [facility] attending and hospitalist for non-ST elevation VT. Patient developed severe chest discomfort yesterday, went to [place] emergencyroom, initial troponins were elevated at 4000 [...] x10E3/uL Lymph # (Auto) 3.8 (1.00-4.8) x10E3/uL [place] # (Auto) 1.3 H (0.0-0.8) x10E3/uL Eos [...] signed by Teo Gongora DO> 12/15/21 1541 [facility] Work Phone: 1(418) 496-553304-20-[address] [facility] Progress note Author Viviane Loco [facility] December 15, 2021 1:34pm Note Date/Time December 15, 2021 1:3 4pm [facility] [address] [place] [address] Hospitalist Progress Note Signed Patient: Jeanmarie Faria MR#: [id number] : 1965 Acct:[id number] Age/Sex: 56 / F Adm Date: 2 Loc: Room: [address] [place] [address] Type : ADM INOo Attending Dr: Viviane [...] elevated myocardial infarction): Plan 1. Non-ST elevation VT, currently patient is asymptomatic Significantly abnormal EKG with elevated troponins Plan for cardiac catheterization 2. Smoker 3. DVT prophylaxis Lovenox Documented By: Viviane Loco MD 12/15/211333 Signed By: <Electronically signed by Viviane Loco MD> 12/15/211333 [facility] Work Phone: 1(206) 754-277104-20-2022 [facility] History and physical note Author Viviane Loco [facility] December 14, 2021 6:12pm Note Date/Time December 14, 2021 6:1 2pm [facility] [address] [place] [address] Hospitalist H&P Signed Patient: Jeanmarie Faria MR#: [id number] : 1965 Acct:[id number] Age/Sex: 56 / F Adm Date: 2 Loc: Room: [address] [place] [address] Type : ADM IN Attending Dr: Viviane [...] problems. She went to emergency room at [facility]. EKG was done which showed ST [...] elevated myocardial infarction): Plan 1. Non-ST elevation VT, currently patient is asymptomatic Significantly abnormal EKG with elevated troponins Continue with telemetry in PCU, serial cardiac enzymes, check echocardiogram Continue with aspirin, already got at [facility]. Will give Lovenox therapeutic dose. Start statin Consult cardiology Start nitroglycerin patch 2. Smoker 3. 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 Diagnosis Neoplasm of lung- Primary Neoplasm of unspecified nature of respiratory system [facility]* Diagnosis Neoplasm of lung- Primary Neoplasm of unspecified nature of respiratory system [facility] Diagnosis Malignant neoplasm of left lung, unspecified part of lung (HCC)- Primary [facility] Diagnosis Neoplasm of lung- Primary Neoplasm of unspecified nature of respiratory system [facility] Diagnosis Muscle soreness- Primary Mylagia and myositis, unspecified [facility] Diagnosis Neoplasm of lung- Primary Neoplasm of unspecified nature of respiratory system [facility]* Diagnosis Smoking greater than 40 pack years- Primary Tobacco use disorder Neoplasm of lung Neoplasm of unspecified nature of respiratory system [facility] Diagnosis Neoplasm of lung- Primary Neoplasm of unspecified nature of respiratory system [facility]* Diagnosis SVT (supraventricular tachycardia)- Primary Other specified cardiac dysrhythmias Hypertrophic nonobstructive cardiomyopathy (CMS/HCC) Other primary cardiomyopathies ASHD (arteriosclerotic heart disease) Coronary atherosclerosis of unspecified type of vessel, otoe-[place] or graft Essential hypertension Unspecified essential hypertension Mixed hyperlipidemia Angina pectoris (CMS/HCC) Other and unspecified angina pectoris Non-small cell cancer of left lung (CMS/HCC) BMI 26.0-26.9,adult documented in this encounter [facility] Work Phone: Evaluation note* Diagnosis Neoplasm [...] doctor or pharmacist, without first calling the mat sewer who implanted the stent. If you require [...] weight lifting, stair steppers, etc. until the mat sewer approves these activities. Check with the mat sewer on your first follow-up visit. CALL YOUR PHYSICIAN at [phone]: -If bleeding should occur from the catheter insertion site- apply pressure to the site then immediately call us. -Report any fever, redness, drainage, increased swelling, or firmness at the catheter insertion site. Some bruising or slight swelling may be present at the time of discharge. -Should arm or leg become cold, numb, white, or blue, contact the mat sewer immediately. -IF you should experience episodes of [...] is recommended. Please call Central Scheduling at [phone] to schedule your appointment.] The attending mat sewer or [facility] nurse clinician should provide you with specific instructions regarding activity, diet, medications, and further follow up for you. Follow the medication instructions provided on your discharge. If the dosages and instructions on this sheet differ from the dosage and instructions on the bottle, follow the instructions on the bottle. [facility] is not responsible for incorrect prescription information provided by the patient during their visit. Do not stop your medications without consulting your health care provider. Please take the list with you to your next doctor's appointment.[facility] Work Phone: Progress note Author W Rolan [facility] December 16, 2021 5:24pm Note Date/Time December 16, 2021 5:2 1pm [facility] [address] [place] [address] Cardiology Progress Note Signed Patient: Jeanmarie Faria MR#: [id number] : 1965 Acct:[id number] Age/Sex: 56 / F Adm Date: 2 Loc: Room: [address] [place] [address] Type : ADM IN Attending Dr: Viviane Loco MD Copies to: ~ Date of Service: 12/16/2021 Subjective Principal diagnosis: Non-ST elevation VT, hypertrophic cardiomyopathy Interval history: Stable status post [...] signed by Teo Gongora, > 12/16/21 1724 [facility] Work Phone: Chief Complaint and Reason for Visit Chief Complaint N Stemi Reason for Visit NSTEMI (non-ST eleva roney myocardial infarction) Smoker Chief Complaint Angina Class 2, ASHD , COB, Hx of VT Advance Directives No Advanced Directives Records Found Advance Directive Response Recorded Date/ Time Advance Directives No December 14, 2 022 3:50pm Chief Complaint * JEANMARIE FARIA is being seen for a 1 month follow-up of. * Patient is a 56-year-old female returns following recent non-ST elevation VT, , Discharged December 16, following revascularization of [...] has a history of heart transplantation in [place], and was sent to a [facility] with similar flulike illness and was diagnosed with influenza. * Patient remains on appropriate postinfarction guideline directed medical therapies, she still smoking 1/2 pack cigarettes a day but is cut back quite a bit. We continue to camp counselor her extensively on tobacco cessation and [...] She has a history of non-ST elevation VT in November 2021 with two-vessel revascularization involving [...] lung (HCC) Procedures RAD/ONC CONSULT OFFICE/OUTPATIENT [facility] MDM 60-74 MINUTES Stan Garcia MD, PhD [address] [facility] [place] [address] Referral ID Status Reason Start Date Expiration Date Visits Requested Visits Authorized [id number] Authorized PCP Requested Referral 03/10/2023 03/09/2024 1 1 Specialty Diagnoses / Procedures Referred By Contac t Referred To Contact Oncology Diagnoses Malignant neoplasm of left lung, unspecified part of lung (HCC) Procedures CONSULT TO ONCOLOGY OFFICE/OUTPATIENT NEW [facility]IGH MDM 60-74 MINUTES Stan Garcia MD, PhD [address] [place] [address] Referral ID Status Reason Start Date Expiration Date Visits Requested Visits Authorized [id number] Authorized PCP Requested Referral 03/10/2023 03/09/2024 1 1 Specialty Diagnoses / Procedures Referred By Contac t Referred To Contact MR IMAGING Diagnoses Secondary malignant neoplasm of brain (HCC) Malignant neoplasm of left lung, unspecified part of lung (HCC) Procedures MRI BRAIN WO/W IVCON MRI BRAIN BRAIN STEM W/O W/CONTRAST MATERIAL Stan Garcia MD, PhD [address] [place] [address] Mr Imaging Referral ID Status Reason Start Date Expiration Date Visits Requested Visits Authorized [id number] Pending Review Auto-Generat ed Referral 03/10/2023 04/08/2024 1 1 Specialty Diagnoses / Procedures Referred By Contac t Referred To Contact RADIATION ONCOLOGY Diagnoses Malignant neoplasm of unspecified part of left bronchus or lung Procedures CT SIM PLANNING RADIATION ONCOLOGY THER RAD SIMULAJ-AIDED FIELD SETTING COMPLEX INTENSITY MODULATED RADIATION TX DLVR COMPLEX IMRT 30 fractions Saleem Fitch MD [address] [place] [address] [facility] [address] [place] [address] Referral ID Status Reason Start Date Expiration Date Visits Requested Visits Authorized [id number] Authorized PCP Requested Referral Patient Cleared INN/SMCP Payor Auth Obtained 03/21/2023 06/21/2023 31 31 Specialty Diagnoses / Procedures Referred By Contac t Referred To Contact Diagnoses SVT (supraventricular tachycardia) Procedures ECG 12 Lead Isabel Cagle WATCH TRAIN INSPECTOR-CLINICAL ADMINISTRATOR [address] [facility] [address], [address] [address] Referral ID Status Reason Start Date Expiration Date V isits Requested Visits Authorized [id number] Pending Review 07/11/2023 07/10/2024 1 1 Specialty Diagnoses / Procedures Referred By Contac t Referred To Contact Cardiology Diagnoses Hypertrophic nonobstructive cardiomyopathy (CMS/HCC) ASHD (arteriosclerotic heart disease) Procedures Follow Up In Cardiology Isabel Cagle WATCH TRAIN INSPECTOR-CLINICAL ADMINISTRATOR [address] [facility] 2, [facility] [address] [place] [address] Brett Gongora DO [address] [facility] [address], [address] [address] Referral ID Status Reason Start Date Expiration Date V isits Requested Visits Authorized [id number] Authorized 07/10/2023 07/09/2024 1 1 Additional Source [...] Teo Gongora , DO Attending Provider Active Plc Controls Engineer Relationship Specialty Start Date End Date Aris Stewart Sr. [address] [place] [address] PCP - General Family Medicine 03/07/23 Betito Foss [address] [place] [address] Critical Care 03/08/23 Plc Controls Engineer Relationship Specialty Start Date End Date Aris Stewart Sr. [address] [place] [address] PCP - General Family Medicine 03/07/23 Betito Foss [address] [place] [address] Critical Care 03/08/23 Plc Controls Engineer Relationship Specialty Start Date End Date Aris Stewart Isac Sr. [address] [place] [address] PCP - General Family Medicine 03/07/23 Betito Foss [address] [place] [address] Critical Care 03/08/23 Plc Controls Engineer Relationship Specialty Start Date End Date Pat Aris Isac Sr. [address] [place] [address] PCP - General Family Medicine 03/07/23 Betito Foss [address] [place] [address] Critical Care 03/08/23 Plc Controls Engineer Relationship Specialty Start Date End Date Pat Aris Isac Sr. [address] [place] [address] PCP - General Family Medicine 03/07/23 Betito Foss [address] [place] [address] Critical Care 03/08/23 Plc Controls Engineer Relationship Specialty Start Date End Date Pat Aris Isac Sr. [address] [place] [address] PCP - General Family Medicine 03/07/23 Betito Foss [address] [place] [address] Critical Care 03/08/23 Plc Controls Engineer Relationship Specialty Start Date End Date Pat Aris Isac Sr. [address] [place] [address] PCP - General Family Medicine 03/07/23 Betito Foss [address] [place] [address] Critical Care 03/08/23 Plc Controls Engineer Relationship Specialty Start Date End Date Pat Aris Isac Sr. [address] [place] [address] PCP - General Family Medicine 03/07/23 Betito Foss [address] [place] [address] Critical Care 03/08/23 Plc Controls Engineer Relationship Specialty Start Date End Date Pat Aris Isac Sr. [address] [place] [address] PCP - General Family Medicine 03/07/23 Betito Foss [address] [place] [address] Critical Care 03/08/23 Plc Controls Engineer Relationship Specialty Start Date End Date Pat Aris Isac Sr. [address] [place] [address] PCP - General Family Medicine 03/07/23 Betito Foss [address] [place] [address] Critical Care 03/08/23 Plc Controls Engineer Relationship Specialty Start Date End Date Aris Stewart Sr. [address] [place] [address] PCP - General Family Medicine 03/07/23 Betito Foss [address] [place] [address] Critical Care 03/08/23 Plc Controls Engineer Relationship Specialty Start Date End Date Aris Stewart Sr. [address] [place] [address] PCP - General Family Medicine 03/07/23 Betito Foss [address] [place] [address] Critical Care 03/08/23 Plc Controls Engineer Relationship Specialty Start Date End Date Aris Stewart Sr. [address] [place] [address] PCP - General Family Medicine 03/07/23 Betito Foss MD [address] [place] [phone] Critical Care 03/08/23 Plc Controls Engineer Relationship Specialty Start Date End Date Aris Stewartip Sr. [address] [place], [place] [id number] PCP - General Family Medicine 03/07/23 Betito Foss MD [address] [place] [address] Critical Care 03/08/23 Plc Controls Engineer Relationship Specialty Start Date End Date Aris Stewart Sr. [address] [place] [address] PCP - General Family Medicine 03/07/23 Betito Foss MD [address] [place] [address] Critical Care 03/08/23 Plc Controls Engineer Relationship Specialty Start Date End Date Aris Stewart, DO [address] [place] [phone] PCP - General 01/25/22 Plc Controls Engineer Relationship Specialty Start Date End Date Aris Stewart , DO [address] [place] [address] PCP - General Family Medicine 03/07/23 Betito Foss MD [address] [place] [phone] Critical Care 03/08/23 Reason for Visit (unrecogniz [...] tachycardia) Procedures ECG 12 Lead Isabel Cagle, WATCH TRAIN INSPECTOR-CLINICAL ADMINISTRATOR [address] [facility] 2, [address] [address] Referral ID Status Reason Start Date Expiration Date V isits Requested Visits Authorized [id number] Pending Review 07/11/2023 07/10/2024 1 1 Reason Comments Lung Cancer INFORMATION SOURCE (unrecogn ized section and content) DATE CREATED AUTHOR 02/24/2022 [facility] DATE CREATED AUTHOR AUTHOR'S ORGANIZ ATION 08/18/2022 [facility] DATE CREATED AUTHOR AUTHOR'S ORGANIZ ATION 12/30/2022 [facility] DATE CREATED AUTHOR AUTHOR'S ORGANIZ ATION 01/05/2023 [facility] DATE CREATED AUTHOR AUTHOR'S ORGANIZ ATION 04/27/2023 [facility] DATE CREATED AUTHOR AUTHOR'S ORGANIZ ATION 06/20/2023 [facility] DATE CREATED AUTHOR AUTHOR'S ORGANIZ ATION 07/11/2023 [facility] DATE CREATED AUTHOR AUTHOR'S ORGANIZ ATION 08/05/2023 [facility] EPIC DATE CREATED AUTHOR AUTHOR'S ORGANIZ ATION 09/26/2023 [facility] Source Comments (unrecognize d section and content) In the event this informatio n is protected by the Federal Confidentiality of Alcohol and Drug Abuse Patient Records regulations: The Federal rules restrict any use of the information to criminally investigate or prosecute any alcohol or drug abuse patient.[facility] the event this information is protected by the Federal Confidentiality of Alcohol and Drug Abuse Patient Records regulations: The Federal rules restrict any use of the information to criminally investigate or prosecute any alcohol or drug abuse patient.[facility] the event this information is protected by the Federal Confidentiality of Alcohol and Drug Abuse Patient Records regulations: The Federal rules restrict any use of the information to criminally investigate or prosecute any alcohol or drug abuse patient.[facility] the event this information is protected by the Federal Confidentiality of Alcohol and Drug Abuse Patient Records regulations: The Federal rules restrict any use of the information to criminally investigate or prosecute any alcohol or drug abuse patient.[facility] Hospital[facility] the event this information is protected by the Federal Confidentiality of Alcohol and Drug Abuse Patient Records regulations: The Federal rules restrict any use of the information to criminally investigate or prosecute any alcohol or drug abuse patient.[facility] Hospital[facility] the event this information is protected by the Federal Confidentiality of Alcohol and Drug Abuse Patient Records regulations: The Federal rules restrict any use of the information to criminally investigate or prosecute any alcohol or drug abuse patient.[facility] Hospital[facility] the event this information is protected by the Federal Confidentiality of Alcohol and Drug Abuse Patient Records regulations: The Federal rules restrict any use of the information to criminally investigate or prosecute any alcohol or drug abuse patient.[facility] Hospital[facility] the event this information is protected by the Federal Confidentiality of Alcohol and Drug Abuse Patient Records regulations: The Federal rules restrict any use of the information to criminally investigate or prosecute any alcohol or drug abuse patient.[facility] Hospital[facility] the event this information is protected by the Federal Confidentiality of Alcohol and Drug Abuse Patient Records regulations: The Federal rules restrict any use of the information to criminally investigate or prosecute any alcohol or drug abuse patient.[facility] Hospital[facility] the event this information is protected by the Federal Confidentiality of Alcohol and Drug Abuse Patient Records regulations: The Federal rules restrict any use of the information to criminally investigate or prosecute any alcohol or drug abuse patient.[facility] Hospital[facility] the event this information is protected by the Federal Confidentiality of Alcohol and Drug Abuse Patient Records regulations: The Federal rules restrict any use of the information to criminally investigate or prosecute any alcohol or drug abuse patient.[facility] HospitalIn the event this information is protected by the Federal Confidentiality of Alcohol and Drug Abuse Patient Records regulations: The Federal rules restrict any use of the information to criminally investigate or prosecute any alcohol or drug abuse patient.[facility] HospitalIn the event this information is protected by the Federal Confidentiality of Alcohol and Drug Abuse Patient Records regulations: The Federal rules restrict any use of the information to criminally investigate or prosecute any alcohol or drug abuse patient.[facility] HospitalIn the event this information is protected by the Federal Confidentiality of Alcohol and Drug Abuse Patient Records regulations: The Federal rules restrict any use of the information to criminally investigate or prosecute any alcohol or drug abuse patient.[facility] HospitalIn the event this information is protected by the Federal Confidentiality of Alcohol and Drug Abuse Patient Records regulations: The Federal rules restrict any use of the information to criminally investigate or prosecute any alcohol or drug abuse patient.[facility] HospitalIn the event this information is protected by the Federal Confidentiality of Alcohol and Drug Abuse Patient Records regulations: The Federal rules restrict any use of the information to criminally investigate or prosecute any alcohol or drug abuse patient.[facility] HospitalIn the event this information is protected by the Federal Confidentiality of Alcohol and Drug Abuse Patient Records regulations: The Federal rules restrict any use of the information to criminally investigate or prosecute any alcohol or drug abuse patient.[facility] HospitalIn the event this information is protected by the Federal Confidentiality of Alcohol and Drug Abuse Patient Records regulations: The Federal rules restrict any use of the information to criminally investigate or prosecute any alcohol or drug abuse patient.[facility] FOR RECORDS PERTAINING TO PATIENTS WHO [...] BE BASED ON THE PRIMARY CLINICAL RECORDS. [facility]. provides no warranty or guarantee of the accuracy or completeness of information in this document.
[2023-11-07 08:29] LABS: Estimated Average Glucose 137 mg/dL; Glycohemoglobin A1C 6.4 % (4.5-6.2)
[2023-11-07 09:30] LABS: TSH W/ REFLEX FT4 60.959 uIU/mL (0.358-3.740)
[2023-11-07 09:50] LABS: Free T4 0.42 ng/dL (0.76-1.46)
== END 2023-11-07 08:13 | disposition home or self-care (01) ==
LOC: LAB 08:12
PROVIDERS: PCP Internal Medicine; Visit Provider Internal Medicine
DX: R63.5 Abnormal weight gain (principal); Z13.1 Encounter for screening for diabetes mellitus
CPT/HCPCS: 83036; 84439; 84443

== ENCOUNTER 2023-11-14 09:11 | Outpatient (OUT) | payer OTHER, SELFPAY ==
--- NOTE | 2023-11-14 09:14 | CT_ITS ---
[address] [address] Patient Name: JEANMARIE ECHEVARRIA MRN: [id number] date: 1965 Sex: F Assigned Patient Location: CT Current Patient Location: Accession/Order Number: [id number] Exam Date: 11/14/2023 09:20 Report Date: 11/15/2023 08:04 At the request of: JAMES RUIZ Procedure: CT chest wo con EXAMINATION: CT chest wo con HISTORY: Pneumonia J18.9, Non Small Cell Carcinoma Left Bronchus COMPARISON: 10/16/2023 TECHNIQUE: Multi-planar CT images were created with IV contrast. Axial, Coronal, and Sagittal images. Dose reduction techniques were achieved by using automated exposure control and/or adjustment of mA and/or kV according to patient size and/or use of iterative reconstruction technique. FINDINGS: LUNGS: Resolution of the right upper and left upper lobe groundglass and solid infiltrates. Persistent partial opacification of the left lower lobe with presence of air bronchograms. Scattered subcentimeter pulmonary nodules the largest solid nodule identified in the right middle lobe measuring 4 mm axial image 68 PLEURA: 2 mm left pleural effusion. No pneumothorax. Elevation of the left hemidiaphragm VASCULATURE: No abnormality. SHANIA: No mass or adenopathy. MEDIASTINUM: No mass or adenopathy. CARDIAC: No enlargement or pericardial effusion. Moderate coronary atherosclerosis AORTA: No aortic aneurysm CHEST WALL: No mass or axillary adenopathy. Right Port-A-Cath BONES: No bone lesion or fracture. LIMITED ABDOMEN: No suspicious findings. Limited images of the upper abdomen. OTHER: Negative. CT/CT chest wo con IMPRESSION: Interval resolution of multifocal infiltrates Persistent partial consolidation of left lower lobe likely atelectasis related to elevated left hemidiaphragm Scattered subcentimeter pulmonary nodules, nonspecific Electronically authenticated by: ABELARDO CHARLES Date: 11/15/2023 08:04
--- OUTSIDE RECORDS SUMMARY | 2023-11-14 09:33 | XMS_ITS | CCD ---
Author Organization [facility] Care Team Providers Care Boring Mill Set Up Operator Name Role Phone MD Viviane Loco Admit Provider [phone] MD Viviane Loco Attending Provider [phone] BURTON Cuellar Other Provider Unavailable DO Teo Gongora Other Provider MD Bolivar Magana Other Provider [phone] MD Brett Price Other Provider MD [...] SANTORO Consulting Unavailable YESIKA URBINA Consulting Unavailable HOUSTON, DR HURST Admitting Unavailable HOUSTON, DR HURST Consulting Unavailable HOUSTON, DR HURST Attending Unavailable HOUSTON, DR HURST Primary Care Unavailable Abelardo Flannery Consulting Unavailable HOUSTON, DR HURST Attending Unavailable HOUSTON, DR HURST Admitting Unavailable HOUSE, DR HURST Primary Care Unavailable [place], DR ABELARDO Johnson Consulting Unavailable HOUSE, DR HURST Consulting Unavailable ROLAN, DR BRETT Amin Consulting Unavailabl e ROLAN, DR BRETT Amin Attending Unavailabl e PAT, DR HURST Primary Care Unavailable ROLAN, DR BRETT Amin Admitting Unavailabl e ROLAN, DR BRETT Amin Consulting Unavailabl e ROLAN, DR BRETT Amin Attending Unavailabl e ROLAN, DR BRETT Amin Admitting Unavailabl e HOUSE, DR HURST Primary Care Unavailable YVAN, ALLY Cho Consulting Unavailable YVAN, ALLY Cho Attending Unavailable YVAN, ALLY Cho Admitting Unavailable HOUSE, DR HURST Primary Care Unavailable JENNA, LUCIO Consulting Unavailable JENNA, ULCIO Attending Unavailable PAT, DR HURST Primary Care Unavailable JENNA, LUCIO Admitting Unavailable JENNA, LUCIO Consulting Unavailable JENNA, LUCIO Attending Unavailable JENNA, LUCIO Admitting Unavailable PAT, DR HURST Primary Care Unavailable MIGDALIA, JAMIE Consulting Unavailable Pat, DO [place] Primary Care Provider DO Teo Gongora Attending Provider Aris [facility] Unavailable Rolan, Teo Aguilar Attending Unavailable Rolan, Teo Aguilar Admitting Unavailable [facility] Provider Omballi, Mohamed A Unavailable Rolan, Dr. Brett Aguilar Attending Unava ilable Pat, Dr. Aris Chau [facility] Unava ilable Rolan, Dr. Brett Aguilar Referring Unava ilable Rolan, Dr. Brett Aguilar Attending Unava ilable Pat, Dr. Aris Chau [facility] Unava ilable Rolan, Dr. Brett Aguilar Attending Unava ilable Pat, Dr. Aris Chau [facility] Unava ilable Rolan, Dr. Brett Aguilar Attending Unava ilable Pat, Dr. Aris Chau [facility] Unava ilable Rolan, Dr. Brett Aguilar Referring Unava ilable Rolan, Dr. Brett Aguilar Attending Unava ilable Pat, Dr. Aris Chau [facility] Unava illinus Foss MD, Mohamed A Unavailable [phone] PIPO, DAVEAMED Referring Unavailable OMBALLI, MOHJEREMIAS Referring Unavailable OMBALLI, MOHAMED Referring Unavailable OMBALLI, BETITO Attending Unavailable ARCHANA RODRIGUEZ Referring Unavailable OMBALLI, DAVEAMED Attending Unavailable OMBALLI, DAVEAMED Referring Unavailable MARIELLE RANDHAWA Referring Unavailable OMBALLI, DAVEAMED Attending Unavailable JENNIFER, APOORA Referring Unavailable OMBALLI, MOHAMED Referring Unavailable OMBALLI, MOHAMED Attending Unavailable OMBALLI, MOHAMED Referring Unavailable OMBALLI, MOHAMED Referring Unavailable House DO, Aris [facility] Primary Care Provider ISABEL CAGLE Attending Unavailable HOUSE, [facility] Primary Care Unavailab le House Sr., DO, [facility] Care Prov ider HOUSE SR, [facility] Care Unavai lable LITTLE, SALEEM Referring Unavailable HOUSE SR, [facility] Care Unavai lable LITTLE, SALEEM Attending Unavailable HOUSE SR, [facility] Care Unavai lable LITTLE, SALEEM Referring Unavailable HOUSE SR, [facility] Unavai lable LITTLE, SALEEM Attending Unavailable HOUSE SR, [facility] Unavai lable LITTLE, SALEEM Referring Unavailable HOUSE SR, [facility] Unavai lable LITTLE, SALEEM Attending Unavailable HOUSE SR, [facility] Unavai lable LITTLE, SALEEM Attending Unavailable LITTLE, SALEEM Referring Unavailable HOUSE SR, [facility] Unavai lable LITTLE, SALEEM Referring Unavailable HOUSE SR, [facility] Unavai lable LITTLE, SALEEM Referring Unavailable HOUSE SR, [facility] Unavai lable LITTLE, SALEEM Referring Unavailable JENNIFER, ARCHANA Referring Unavailable HOUSE SR, [facility] Unavai lable LITTLE, SALEEM Attending Unavailable JENNIFER, ARCHANA Referring Unavailable HOUSE SR, [facility] Care Unavai lable LITTLE, SALEEM Attending Unavailable HOUSE SR, [facility] Unavai lable LITTLE, SALEEM Referring Unavailable HOUSE SR, [facility] Care Unavai lable LITTLE, SALEEM Attending Unavailable HOUSE SR, [facility] Care Unavai lable LITTLE, SALEEM Referring Unavailable HOUSE SR, [facility] Unavai lable LITTLE, SALEEM Attending Unavailable HOUSE SR, [facility] Unavai lable LITTLE, SALEEM Referring Unavailable HOUSE SR, [facility] Unavai lable LITTLE, SALEEM Referring Unavailable HOUSE SR, [facility] Unavai lable LITTLE, SALEEM Referring Unavailable HOUSE SR, [facility] Primary Care Unavai lable HOUSE SR, [facility] Primary Care Unavai lable HOUSE SR, [facility] Primary Care Unavai lable HOUSE SR, [facility] Primary Care Unavai lable LITTLE, SALEEM Referring Unavailable HOUSE SR, [facility] Care Unavai lable LITTLE, SALEEM Referring Unavailable HOUSE SR, [facility] Care Unavai lable LITTLE, SALEEM Referring Unavailable HOUSE SR, [facility] Care Unavai lable LITTLE, SALEEM Referring Unavailable LITTLE, SALEEM Attending Unavailable HOUSE SR, [facility] Unavai lable LITTLE, SALEEM Referring Unavailable HOUSE SR, [facility] Unavai lable LITTLE, SALEEM Referring Unavailable HOUSE SR, [facility] Unavai lable LITTLE, SALEEM Referring Unavailable HOUSE SR, [facility] Unavai lable LITTLE, SALEEM Referring Unavailable HOUSE SR, [facility] Unavai lable HOUSE SR, [facility] Unavai lable LITTLE, SALEEM Referring Unavailable HOUSE SR, [facility] Unavai lable LITTLE, SALEEM Attending Unavailable HOUSE SR, [facility] Unavai lable LITTLE, SALEEM Attending Unavailable HOUSE SR, [facility] Unavai lable LITTLE, SALEEM Referring Unavailable HOUSE SR, [facility] Unavai lable LITTLE, SALEEM Referring Unavailable HOUSE SR, [facility] Unavai lable LITTLE, SALEEM Referring Unavailable HOUSE SR, [facility] Primary Care Unavai lable LITTLE, SALEEM Referring Unavailable HOUSE SR, [facility] Primary Care Unavai lable LITTLE, SALEEM Referring Unavailable HOUSE SR, [facility] Care Unavai lable LITTLE, SALEEM Referring Unavailable HOUSE SR, [facility] Care Unavai lable LITTLE, SALEEM Referring Unavailable HOUSE SR, [facility] Unavai lable LITTLE, SALEEM Referring Unavailable HOUSE SR, [facility] Unavai lable LITTLE, SALEEM Attending Unavailable HOUSE SR, [facility] Unavai lable LITTLE, SALEEM Attending Unavailable HOUSE SR, [facility] UnaSALEEM Chatman Referring Unavailable HOUSE SR, [facility] Mona bailey FITCH, SALEEM Referring Unavailable HOUSE SR, [facility] Heatholivia FITCH, SALEEM Referring Unavailable HOUSE SR, [facility] Jinavolodymyr FITCH, SALEEM Referring Unavailable SHAIKH MORA Attending Unavailable SHAIKH MORA Attending Unavailable Allergies Allergy Classification Reported Allergen(s) Allergy Type Date of Onset Reaction(s) Facility (5 sources) Codeine; 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: [Codeine] Drug Allergy 06-16-2016 [facility] Medications Current Medications Medication Drug Class(es) Dates [...] mouth. 0 Active take 1 capsule by [facility] twice daily before mealtime omeprazole (PriLOSEC) 20 [...] to 7 days. May alternate with Tylenol/Motrin. [id number] 200 actuat albuterol 0.09 mg/actuat metered dose inhaler (18 sources) beta2-Adrenergic Agonist Start: 02-21-2023 take 2 puff(s) by mouth every six hours albuterol HFA (PROVENTIL HFA, VENTOLIN HFA) 90 mcg/actuation inhaler inhale 2 puffs by mouth and INTO THE LUNGS every 6 hours if neede... (REFER TO PRESCRIPTION NOTES). 0 02/21/2023 Active Comment on above: inhale 2 puffs by mo uth and INTO THE LUNGS every 6 hours [...] / neomycin 3.5 mg/ml / polymyxin b 26592 unt/ml otic suspension (2 sources) Aminoglycoside Antibacterial, Polymyxin-class Antibacterial, Corticosteroid Start: 02-18-2022 Cwtsfpjg-Fjxvpxkjk-ME 3.5-44548-0 Otic Suspension Quantity: 10 Refills: 0 Ordered: [...] radiology test) (17 sources) Star t: 02-25 23 inject 1 dose intravenously once iv contrast [...] chew. 0 Active take 1 tablet by mtat th every twenty-four hours metoprolol succinate ER [...] Active 90 MG PO Twice daily 60 December 16, 2021 4:19pm Comment on above: [...] [Coronary atherosclerosis of unspecified type of vessel, sun'aq or graft] Onset: 2 12-30-2022 Chronic Coronary atherosclerosis and other heart disease (6 sources) Patient post percutaneous transluminal coronary angioplasty; 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: [Percutaneous transluminal coronary angioplasty status] Onset: 2 07-07-2023 Episodic Disorders of lipid metabolism (4 sources) Mixed hyperlipidemia; 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: [Mixed hyperlipidemia] Onset: 3 07-10-2023 Chronic Essential hypertension (7 sources) Essential (primary) hypertension; 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: [Essential hypertension] Onset: 2 12-30-2022 Chronic Other aftercare (1 source) intermission coordinator (current) use of aspirin; 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: [DETENTION CURRENT USE OF ASPIRIN] Onset: 2 Episodic [...] Unclassified (1 source) 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; 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: [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] Onset: [...] 02-17-2022 Episodic Other aftercare (1 source) Other prison (current) drug therapy; 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: [OTH BOOKKEEPER RECEPTIONIST CURRENT DRUG THERAPY] Onset: 02-21-2022 Episodic Other [...] Test Name Value Interpretation Reference Range Facility [facility] 09-25-2023 CNPN Telephone (THORMN) -- JEANMARIE FARIA ([id number]) 1965 F Date Time Provider Department 09/25/23 STAN GARCIA During your visit today, we recorded the following information about you: Alber Fernandez 09/25/2023 1:54 PM Signed Received Hem/Onc office notes 09/19/23 from [facility] Record scanned in Epic Alber Fernandez, administrative office manager Allergies As of Date: 09/25/2023 (No Known Allergies) Date Reviewed: 07/13/2023 Reviewed by: Toney Bailon LPN - Fully Assessed Reason for Visit: Received Outside Medical Records [[id number]] Prescriptions as of 09/25/2023 - buPROPion XL [...] Encounter Status:Closed by ALBER FERNANDEZ on 09/25/23 [facility] CNOVon 07-13-2023 CNOV Office Visit (RADTSA ) -- JEANMARIE FARIA ([id number]) 1965 F Date Time Provider Department 07/13/23 [...] in coordination with Dr. Rodriguez at the [facility] on 05/11/2023 (6,000 cGy delivered in 30 fractions with concurrent carboplatin/paclitaxel). INTERVAL HISTORY/ROS: Ms. Faria returns to clinic today for routine follow-up approximately two months after the completion of her radiation treatments. In the interim, she was hospitalized shortly after completion of treatment for pneumonia and arrhythmia (tachycardia). Since discharge she has been on supplemental oxygen byookf-yki-fpbyy via nasal cannula at 2 L/min. She feels that her cough is improved and denies any hemoptysis but still has some tightness in the chest with deep breaths. She denies any esophagitis that she is swallowing well. She is seeing a rehabilitation caseworker and is currently on a nebulizer 3 [...] in coordination with Dr. Rodriguez at the [facility] on 05/11/2023 (6,000 cGy delivered in 30 fractions with concurrent carboplatin/paclitaxel). Ms. Faria continues to recover from the acute toxicities of her recent course of chemoradiation which was complicated by recent hospitalization for pneumonia. She is showing slow improvement but continues to require supplemental oxygen and will follow with her rehabilitation caseworker plans for PFTs as well as pulmonary rehab. Initial posttreatment imaging with PET/CT from 07/07/2023 shows exce (more content not included)... [facility]N Telephone (NCCAP) -- JEANMARIE FARIA ([id number]) 1965 F Date Time Provider Department 06/27/23 SALEEM FITCH During your visit today, we recorded the following information about you: Abdulkadir Pino Landaverde 06/27/2023 11:02 AM Signed Patient called to [...] PM Signed Patient pet was approved through [place] she is scheduled this Monday for scan and I did schedule her a followup for next week. 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 (HCC) [C34.90] Order(s):NM PET/CT SKULL-THIGH SUBSEQUENT [[id number]] Order #: [id number] FUTURE Prescriptions as of 07/03/2023 - prochlorperazine [...] Encounter Status:Closed by PINO ALBRECHT on 06/29/23 [facility] CONSULTon 06-19-2023 CONSULT ------ -- Attestation [...] asked her to see PCP or cardiology aidain 1 week for recheck of EKG Maritza Pardo MD [facility] -- Cardiology Consult Note Reason for [...] Onset Heart failure Mother Diabetes Mother Other (PA) Mother Hypertension Mother Allergies Patient has no [...] Value Ventricular Rate 99 Atrial Rate 99 SC Interval 150 QRS DURATION 86 QT Interval 362 QTC CALCULATION(BAZETT) 464 P [place] 32 R-[place] 20 T Wave [place] 170 Impression Sinus rhythm with Premature atrial [...] diffuse tracheobronchomalacia that (more content not included)... Normal [facility] 06-19-2023 ------ -- Attestation signed by Betito Foss MD at 06/19/2023 11:56 AM Re-explained the procedure to the patient along with the associated risk of pneumothorax, bleeding, hypoxia, and respiratory failure. Patient is agreeable and will proceed with the scheduled bronchoscopy and stent revision/removal Betito Foss MD Interventional Pulmonary Medicine Pulmonary and Critical Care Medicine [facility] -- H&P reviewed. The patient [...] in details, she is agreeable. Consent obtained. [facility] Orders Onlyon 06-19-2023 Orders Only [id number] Cyndee Faria 1965 F Date Provider Department Center 06/19/2023 MARITZA RAZO [facility] CARD Flo Grimm Family History Problem Relation Age of Onset Heart failure Mother Diabetes Mother Other Mother Hypertension Mother Family Status - Relation Status Age at Mother Normal [facility] POCT GLUCOSE METER UNSOLICIT ED RESULTSon 06-19-2023 Glucose [Mass/Vol] 100 mg/dL Normal 70-105 [facility] Comment on above: Order Comment: Waive d Testing in the ED is performed under the ED CLIA certificate #[id number]. Result Comment: ltol les Performed By: #### L [id number] ####[facility] [place] [address] Orders Onlyon 06-16-2023 Orders Only [id number] Cyndee Faria 1965 [facility] Department Center 06/16/2023 TOYIN CRENSHAW [facility] Family History Problem Relation Age of Onset Heart failure Mother Diabetes Mother Other Mother Hypertension Mother Family Status - Relation Status Age at Mother Normal [facility] HPon 06-15-2023 HP ------ -- Attestation [...] Age: 57 y.o. : 1965 Account No.: [id number] Chief complaint: Stent reversion HPI Jeanmarie Faria [...] was initiated by the patient and conducted uao-aosr-pi-face with use of audio-only real time telephone communication between patient and provider for a virtual visit. Verbal consent to provide and bill for this service was obtained on 06/15/2023. No signature was obtained due to the COVID-19 pandemic. Julio Taylor Pulmonary and critical care fellow [facility]. 06/15/23 11:39 AM Normal [facility] Telemedicineon 06-15-2023 Telemedicine [id number] Cyndee Faria 1965 F Date Provider Department Center 06/15/2023 383-BETITO FOSS DCC ONC DCC Family History Problem Relation Age of Onset Heart failure Mother Diabetes Mother Other Mother Hypertension Mother Family Status - Relation Status Age at Mother Level of Service:13364 [place] PHYS/QHP TELEPHONE EVALUATION 21-30 MIN () Reason for Visit and Comments: tracheal mass [Other] - Tracheal stent placed in February [address] Foss for tracheal mass. Dr Rodriguez would like patient bronched for EBUS restaging. Notes scanned into media. CT done 05-29-23. Films in EPIC Normal [facility] CNPNon 06-01-2023 CNPN Telephone (RADTSA) -- JEANMARIE FARIA ([id number]) 1965 F Date Time Provider Department 06/01/23 SALEEM FITCH During your visit today, we recorded the following information about you: Toney Bailon LPN 06/01/2023 9:54 AM Signed I called to get a post radiation therapy update from Jeanmarie. She states she is currently inpatient at [facility] with pneumonia. She will call [...] Encounter Status:Closed by TONEY BAILON on 06/01/23 [facility] Candido 05-11-2023 [facility] Telephone (WIQ) -- JEANMARIE FARIA ([id number]) 1965 F Date Time Provider Department 05/11/23 LUISCHEMA ROSIERYAN LOVE JOSE During your visit today, we recorded the following information about you: Ryan Bain, [facility] 05/11/2023 2:56 PM Signed Smoking Cessation Navigation Outcome of contact: Left Message Comments: A voicemail has been left for this patient regarding Tobacco Cessation support options. If this patient has any further questions they can email us at or call us at [phone]. [employer] Driver/Smoking Cessation Navigator: Ryan Elliottdrulive [facility] Allergies As of Date: 05/11/2023 [...] Encounter Status:Closed by RYAN BAIN on 05/11/23 [facility] CNOVon 05-10-2023 CNOV Office Visit (RADTSA ) -- JEANMARIE FARIA ([id number]) 1965 F Date Time Provider Department 05/10/23 [...] Encounter Status:Closed by SALEEM FITCH on 05/23/23 [facility] CNJanice 05-03-2023 CNOV Office Visit (RADTSA ) -- JEANMARIE FARIA ([id number]) 1965 F Date Time Provider Department 05/03/23 [...] Encounter Status:Closed by SALEEM FITCH on 05/16/23 [facility] Paul 04-26-2023 CNOV Office Visit (RADTSA ) -- JEANMARIE FARIA ([id number]) 1965 F Date Time Provider Department 04/26/23 [...] of lung [D49.1] Order(s):CONSULT TO SMOKING CESSATION [[id number]] Order #: [id number]: 1 Prescriptions as of 05/09/2023 - prochlorperazine [...] Date: 04/26/2023 (None) Visit Notes: >> Toney Bailon LPN MonApr 26, 2023 12:32 PM Status: Signed Status: Post-menopausal. Encounter Status:Closed by SALEEM FITCH on 05/09/23 [facility] CNOVon 04-19-2023 CNOV Office Visit (RADTSA ) -- JEANMARIE FARIA ([id number]) 1965 F Date Time Provider Department 04/19/23 [...] Encounter Status:Closed by SALEEM FITCH on 05/02/23 [facility] CNOVon 04-18-2023 CNOV Office Visit (HEMASA ) -- JEANMARIE FARIA ([id number]) 1965 F Date Time Provider Department 04/18/23 [...] by: Nilsa Deal RN - Fully Assessed Primary Visit Diagnosis:Muscle [...] Encounter Status:Closed by BRI BERNARD on 04/18/23 [facility] Paul 04-12-2023 CNOV Office Visit (RADTSA ) -- JEANMARIE FARIA ([id number]) 1965 F Date Time Provider Department 04/12/23 [...] - amoxicillin-clavulani (more content not included)... Normal [facility] CNPNon 04-11-2023 CNPN Telephone (RADTSA) -- JEANMARIE FARIA ([id number]) 1965 F Date Time Provider Department 04/11/23 [...] Encounter Status:Closed by NILSA DEAL on 04/11/23 [facility] CNOVon 04-05-2023 CNOV Office Visit (RADTSA ) -- JEANMARIE FARIA ([id number]) 1965 F Date Time Provider Department 04/05/23 [...] Encounter Status:Closed by SALEEM FITCH on 04/05/23 [facility] CNNURSEon 03-28-2023 CNNURSE Nurse Visit (RADTSA) -- JEANMARIE FARIA ([id number]) 1965 F Date Time Provider Department 03/28/23 [...] (None) Visit Notes: >> Toney Bailon LPN [place] Mar 28, 2023 3:45 PM Status: Signed Aromatherapy to promote a healing environment. TYPE: container SCENT: citrus blend Aromatherapy education materials were provided and reviewed with the patient. Toney Bailon LPN Encounter Status:Closed by TONEY BAILON on 03/28/23 [facility] CNOVon 03-28-2023 CNOV Office Visit (RADTSA ) -- JEANMARIE FARIA ([id number]) 1965 F Date Time Provider Department 03/28/23 [...] Saleem Fitch MD Referring Provider: SALEEM FITCH [[id number]] Allergies As of Date: 03/28/2023 (No Known [...] time. En (more content not included)... Normal [facility]20[facility] -- GIANAJEANMARIE Chavarria ([id number]) 1965 F Date Time Provider Department 03/23/23 [...] Encounter Status:Closed by TONEY BAILON on 03/23/23 [facility] CNOVon 03-17-2023 CNOV Office Visit (RADTSA ) -- GIANALYNDA ChavarriaA ([id number]) 1965 F Date Time Provider Department 03/17/23 [...] which included preparing to see the patient, bwkh-oa-hoba patient care, counseling and educating the patient/family/caregiver, and communicating results to the patient/family/caregiver. This document has been created with the use of voice recognition technology. It may contai (more content not included)... Normal [facility] PET/CT SKULL-THIGH INITon 03-15-2023 NE PET/CT SKULL-THIGH INIT * * *Final Report* * * DATE OF EXAM: Mar 15 2023 11:07AM NRN [id number] - NE PET/CT SKULL-THIGH INIT / PROCEDURE REASON: Neoplasm of lung * * * * Physician Interpretation * * * * RESULT: EXAM: NE PET/CT SKULL-THIGH INIT HISTORY: 57 years old [...] - Background liver activity (max SUV): 2.8 Community Relations Assistant (topogram) images: No additional findings. HEAD AND [...] any questions regarding this interpretation, please call [phone]. If you are unable to reach us at the number above, please feel free to contact [facility] eRadiology at [phone]. [id number] Normal [facility] CNPJossy 03-14-2023 GU[place]ER[place] Telephone (JODI) -- JEANMARIE FARIA ([id number]) 1965 F Date Time Provider Department 03/14/23 STAN GARCIA During your visit today, we recorded the following information about you: Alber Fernandez 03/14/2023 2:32 PM Signed Received Hem/Onc consult notes 03/07/23 from [facility] Record scanned in [facility] Alber Fernandez administrative office managerAlber Mcdonald 03/27/2023 11:23 AM Signed Received Hem/Onc office notes 03/21/23 from [facility] Record scanned in [facility] Alber Fernandez administrative office managerAlber Mcdonald 03/28/2023 1:06 PM Signed Received Hem/Onc office notes 03/28/23 from [facility] Record scanned in [facility] Alber Fernandez administrative office managerAlber Mcdonald 04/18/2023 3:47 PM Signed Received Hem/Onc office notes 04/11/23 from [facility] Record scanned in [facility] [facility] Alber Fernandez administrative office managerAlber Mcdonald 04/21/2023 9:33 AM Signed Received OSH Hem/Onc office notes 04/18/23 from [facility] Record scanned in [facility] pernell Constantino Rebecca, RN 04/21/2023 11:25 AM Addendum noted no surgery apart of plan. BURTON Herrera Cassandra 08/22/2023 9:39 AM Signed Received Hem/Onc office notes 08/15/23 from [facility] Record scanned in [facility] pernell Constantino Allergies As of Date: 03/14/2023 (No Known [...] Encounter Status:Closed by ALBER FERNANDEZ on 03/14/23 [facility] Candido 03-13-2023 ERIK Telephone (ScalingDataA) -- JEANMARIE FARIA ([id number]) 1965 F Date Time Provider Department 03/13/23 [...] well? Does she need to come to for anything? Pt notes she had a stent placed 03/10 and PET planned for 03/15 Thanks for any insight Nancy Beach MSN, RN Nurse [employer]ile [employer] Miss[employer] Checkout Technician Thoracic Surgery [facility] Nilsa Deal RN 03/13/2023 3:44 PM [...] MRI I can get her scheduled at [place] looks like she normally goes there, I tried to call her to ask, looks like her insurance may require auth also Abdulkadir LandaverdePino 03/15/2023 12:58 PM Signed Called lesly they are calling patient today to schedule appt for this week she said. Toney Bailon LPN 03/21/2023 2:25 PM Signed I called [facility] scheduling dept for an update [...] Encounter Status:Closed by NILSA DEAL on 03/24/23 [facility] 03-10-2023 ------ -- Attestation signed by Betito Foss MD at 03/10/2023 10:58 AM Re-explained the procedure to the patient along with the associated risk of pneumothorax, bleeding, hypoxia, and respiratory failure. Patient is agreeable and will proceed with the scheduled rigid bronchoscopy, tumor debulking, and stent Betito Foss MD Interventional Pulmonary Medicine Pulmonary and Critical Care Medicine [facility] -- History Of Present Illness [...] Onset Heart failure Mother Diabetes Mother Other (PA) Mother Hypertension Mother Allergies Patient has no [...] TBNA using a (more content not included)... Normal [facility] NURSNOTEon 03-10-2023 NURSNOTE Reviewed instruction s with patient and sister, copy given. Stable for [place] home. Normal [facility] POCT GLUCOSE METER UNSOLICIT ED RESULTSon 03-10-2023 Glucose [Mass/Vol] 113 mg/dL High 70-105 [facility] Comment on above: Order Comment: Waive d Testing in the ED is performed under the ED CLIA certificate #[id number]. Result Comment: aepp ink Performed By: #### L [id number] ####[facility] (ARVINAKER)[address] [place] [address] CNOVon 03-08-2023 CNOV Office Visit (RADTSA ) -- JEANMARIE FARIA ([id number]) 1965 F Date Time Provider Department 03/08/23 [...] the Department of Radiation Oncology at the [facility] with Saleem Fitch MD. Final recommendations will be communicated back to the requesting physician by way of the shared medical record, or letter to requesting physician via US mail. HISTORY OF PRESENT ILLNESS: Ms. Faria is a 57-year-old woman in [place], [place] who was found to have a [...] met with Dr. Rodriguez medical oncology at [facility] and referred to rehabilitation caseworker Dr. Foss as an outpatient. She underwent [...] the past year and having had an PA approximately a year ago. She does note [...] Ms. Faria is and lives in the [place], [place] area. 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 She notes an approximate 16-[id number] history of smoking and has reduced down [...] 162 lb (more content not included)... Normal [facility] JEANMARIE FARIA ([id number]) 1965 F Date Time Provider Department 03/08/23 STAN GARCIA During your visit today, we recorded the following information about you: Alber Jim 03/09/2023 3:28 PM Addendum LOCAL PATIENT Received Fax from Dr. Archana Faria is being referred to Stan Garcia M.D., Ph. D. Or Lamonte Guerra by Dr. Archana Rodriguez [address] [place] [address] Patient diagnosis/Reason for consult: Lung Cancer Referral triage process explained: No Patient will receive a call from Thoracic NPM after triage review with surgeon to discuss any additional testing and/or consults that will be scheduled. Pt will then receive a call from our scheduling office for scheduling. Please call pt at [phone]. Patient was informed consultation could be at [place] or [facility]: No Patient Registration: Registration complete/updated: yes Insurance card(s) scanned in [facility] with in the past year: Yes: Date: 03/08/23 Pt's MyChart is Pending. Ok to communicate to pt via My 1% not asked Medical Records: Records in [facility] (internal CC records): Yes Imaging in [facility] (internal CC records): Yes Care Everywhere - queried yes, downloaded Yes Linked Outside Organizations (list): [facility]; [facility]; [facility] OS Records Requested: No Date: N/A Outside Hospital(s) requested records from: n/a Received: yes Uploaded: Yes. Waiting on additional records: No. Missing (list): N/A OS Pathology Slides Requested: no Date: N/A Outside Hospital(s) slides requested from: n/a OS Radiology Imaging Requested: yes Date: March 08, 2023 Outside Hospital(s) requested imaging from: [place]. Imaging will be received via Electronic Transfer Received: Yes Imaging uploaded: Yes Waiting on additional: No Missing (list): n/a Additional providers added to Care Teams: Yes Additional Notes/Comments: n/a Enct routed to: Zaan Louis NPM for Triage Alber Fernandez, administrative office manager Nancy Beach RN 03/10/2023 3:31 PM Addendum Thoracic Surgery Consultation - review of records for appointment scheduling Received medical records from the office of Archana Rodriguez [address] [facility] [address] Patient is being referred to Stan Garcia [...] position. ebus 03/03/2023 Imaging PET/CT: 03/15/[address] [place] [address] (chest) 02/19/23 Cardiopulmonary Testing PFT's/Six: requested [...] discuss PE (more content not included)... Normal [facility] CNPN Telephone (ScalingDataA) -- JEANMARIE FARIA ([id number]) 1965 F Date Time Provider Department 03/08/23 SALEEM FITCH During your visit today, we recorded the following information about you: Toney Bailon LPN 03/08/2023 2:57 PM Signed I notified Carla with Dr. Gongora's office, cardiology, that Jeanmarie will be scheduled for a bronchoscopy with pulmonary stent placement with Dr. Foss, [place] rehabilitation caseworker, and will need cardiac clearance. I provided [...] Status:Closed by TONEY BAILON on 03/08/23 [facility] 03-08-2023 Orders Only [id number] Cyndee Faria 1965 F Date Provider Department Center 03/08/2023 Sukhwinder-BETITO FOSS [facility] Family History Problem Relation Age of Onset Heart failure Mother Diabetes Mother Other Mother Hypertension Mother Family Status - Relation Status Age at Mother Normal [facility] 29on 03-03-2023 29 Addendum created 03/19 1633 by Rajesh Toussaint DO Order list changed Normal [facility] Anesthesiaon 03-03-2023 Anesthesia [id number] Cyndee Faria 1965 F Date Provider Department Center 03/03/2023 [facility] Family History Problem Relation Age of Onset Heart failure Mother Diabetes Mother Other Mother Hypertension Mother Family Status - Relation Status Age at Mother Normal [facility] HISTOLOGY - TISSUE EXAMon LAB AP CASE REPORT Normal [facility] Comment on above: Result Comment: Surg ical Pathology Case: [id number] Authorizing Provider: Betito Foss MD Collected: 03/03/2023 1426 [facility] Main Operating Room Received: 03/03/20232041 Pathologist: Dorothea Saunders MD Specimen: Trachea/Tracheal, tracheal mass bx Performed By: #### L [id number] ####[facility] (BEFragegg)[address] [place] [address] LAB AP CLINICAL INFORMATION Order Diagnoses Normal [facility] Comment on above: Result Comment: R59. 0 - Mediastinal adenopathy [ICD-10-CM] Performed By: #### L [id number] ####[facility] (BEAKER)[address] [place] [address] LAB AP GROSS DESCRIPTION [facility] Comment on above: Result Comment: A. T rachea/Tracheal. Part A is received in formalin labeled Jeanmarie Giana and tracheal mass bx. It consists of 4 pieces of ortiz-pink, irregular soft tissue measuring 0.8 x 0.5 x 0.2 cm in aggregate. The specimen is submitted in toto in 1 cassette. Balwinder Lerner, Pathologists' Rim Fire Priming Tool Setter Performed By: #### L [id number] ####[facility] (BEAKER)[address] [place] [address] LAB AP MICROSCOPIC DESCRIPTION Microscopic examination performed. [facility] Comment on above: Performed By: #### L [id number] ####[facility] ([facility] [place] [address] LAB AP REPORT FINAL DIAGNOSIS NARRATIVE [facility] Comment on above: Result Comment: A. T divya mass, biopsy: - Fragments of benign respiratory-type mucosa. - No evidence of carcinoma. Performed By: #### L [id number] ####[facility] (BEAKER)[address] [place] [address] HPon 03-03-2023 ------ -- Attestation signed by Betito Foss MD at 03/03/2023 1:34 PM Re-explained the procedure to the patient along with the associated risk of pneumothorax, bleeding, hypoxia, and respiratory failure. Patient is agreeable and will proceed with the scheduled bronchoscopy and EBUS TBNA Betito Foss MD Interventional Pulmonary Medicine Pulmonary and Critical Care Medicine [facility] -- Pulmonology Progress Patient : [...] last few weeks so she went to [place] ER last week, CT scan obtained which [...] Diagnosis Date COPD (chronic obstructive pulmonary disease) ([facility]) Coronary artery disease Diverticulosis GERD (gastroesophageal reflux disease) History of transfusion Hyperlipidemia Hypertension Irritable bowel syndrome Mediastinal mass Myocardial infarction ([facility]) 11/2021 Spastic colon No Known Allergies Social [...] Onset Heart failure Mother Diabetes Mother Other (PA) Mother Hypertension Mother Outpatient Medications: (Not in [...] for: GBMAB (more content not included)... Normal [facility] NON-WORK STATION SUPPORT SPECIALIST CYTOLOGY - CELLULAR EXAMon 03-03-2023 LAB AP ADDENDUM 1 Normal [facility] Comment on above: Result Comment: This case ([id number]) was sent to [employer] for the [employer] xT tumor panel. Findings were as follows: Somatic: Potentially Actionable KRAS: G12C Somatic: Biologically Relevant PTPRD: S497* GATA6: R76fs TP53: R248W B2M: S40* STAG2: K92* Germline: Pathogenic/Likely Pathogenic No matched normal sample was received, therefore germline sequencing was not performed. Pertinent Negatives EGFR, BRAF, ALK, ROS1, RET, MET, ERBB2 Immunotherapy Markers Tumor Mutational [place] (TMB): 13.2 m/MB Microsatellite Instability Status (MSI): Stable PD-L1 22C3 IHC: Too few tumor cells present Comment: See separate [employer] xT report for a complete description with interpretive content and potential clinical trials. Addendum electronically signed by Jie Nolan MD on 05/03/2023 at 10:46 AM Performed By: #### L [id number] ####[facility] ([facility])[address] [place] [address] LAB AP ASR DISCLAIMER The interpretation of [...] Clinical Laboratory Improvement Amendments of 1998. Normal [facility] Comment on above: Performed By: #### L [id number] ####[facility] ([facility])[address] [place] [address] LAB AP CASE REPORT Normal [facility] Comment on above: Result Comment: Non- gynecologic Cytology Case: [id number] Authorizing Provider: Betito Foss MD Collected: 03/03/2023 1352 [facility] Main Operating Room Received: 03/03/2023 4792 Pathologist: Jie Nolan MD Specimen: Trachea/Tracheal, tracheal mass FNA Performed By: #### L [id number] ####[facility] (BEAKER)[address] [place] [address] LAB AP CLINICAL INFORMATION Mediastinal mass adjacent/abutting the superior margin of the left mainstem bronchus, anterior margin of the aorta, and anterior esophagus (3 cm), COPD, tobacco use Normal [facility] Comment on above: Performed By: #### L [id number] ####[facility] ([facility] [place] [address] LAB AP DIAGNOSIS COMMENT Normal [facility] Comment on above: Result Comment: Immu nohistochemistry with controls performed. Lesional cells positive for CK5/6. Focal weak positivity with p63 is identified. In a background of abundant necrosis scantly to moderately cellular are scattered malignant tumor cell clusters and single malignant cells identified. Contact molecular pathology for requests for ancillary molecular testing. See also concurrent biopsy, [id number]. Performed By: #### L [id number] ####[facility] ([facility])[address] [place] [address] LAB AP GROSS DESCRIPTION A. 2 air-dried slides, 2 alcohol-fixed slides, 30 mL CytoLyt with hazy, red fluid and red/white particles Normal [facility] Comment on above: Performed By: #### L [id number] ####[facility] ([facility])[address] [place] [address] LAB AP INTRAOPERATIVE CONSULTATION Normal [facility] Comment on above: Result Comment: A. [...] material submitted.* Performed By: #### L [id number] ####[facility] ([facility])[address] [place] [address] LAB AP MICROSCOPIC DESCRIPTION Satisfactory for evaluation. Examination of the prepared smears and cell block reveals tumor cells arranged in aggregates and as single cells with dense cytoplasm, enlarged round to oval nuclei, irregular chromatin, and prominent nucleoli in a background of abundant necrosis, benign bronchial cells, and blood. [facility] Comment on above: Performed By: #### L [id number] ####[facility] ([facility])[address] [place] [address] LAB AP REPORT FINAL DIAGNOSIS NARRATIVE [facility] Comment on above: Result Comment: A. T divya mass, EBUS-guided fine needle aspiration: - Most consistent with squamous cell carcinoma (see microscopic description and comment). Performed By: #### L [id number] ####[facility] ([facility])[address] [place] [address] POCT GLUCOSE METER UNSOLICIT ED RESULTSon 03-03-2023 Glucose [Mass/Vol] 120 mg/dL High 70-105 [facility] Comment on above: Order Comment: Waive d Testing in the ED is performed under the ED CLIA certificate #[id number]. 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 Do not wear perfume, make-up, nail guinean, or lotions on the day of your [...] need to make any changes, please call [phone]. Notify your surgeon if you develop any illness such as a cold, cough, fever, sore throat or vomiting between now and your surgery. Thank you for entrusting us with your care. [facility] Surgical Services Team Normal [facility] Prep for Procedureon 023 Prep for Procedure [id number] Cyndee Faria 1965 F Date Provider Department Center 02/27/2023 Sukhwinder-BETITO FOSS [facility] Family History Problem Relation Age of Onset Heart failure Mother Diabetes Mother Other Mother Hypertension Mother Family Status - Relation Status Age at Mother Normal [facility] Orders Onlyon 02-24-2023 Orders Only [id number] Giana,Rhonatividad pool 1965 F Date Provider Department Center 02/24/2023 BETITO BALBUENA [facility] Family History Problem Relation Age of Onset Heart failure Mother Diabetes Mother Other Mother Hypertension Mother Family Status - Relation Status Age at Mother Normal [facility] Activated partial thrombopla stin time (aPTT) in platelet poor plasma by coagulation aOrdered By: Teo Gongora on 12-30-2022 aPTT Coag (PPP) [Time] 35.6 s 25.1-36.5 [facility] Basophils Auto (Bld) [#/Vol] Ordered By: Teo Gongora on 12-30-2022 Basophils (Bld) [#/Vol] 0.1 10*3/uL 0.0-0.2 [facility] Basophils/100 WBC Auto (Bld) Ordered By: Teo Gongora on 12-30-2022 Basophils/100 WBC (Bld) 0.9 % . [facility] Blood Urea Nitrogenon 2022 Urea nitrogen [Mass/Vol] 13 mg/dL Normal 7-25 [facility] Comment on above: Performed By: #### P P, CREAT, HCGQUAL, CBC, LYTES, BUN, LIPID #### [address] Carbon dioxide, total [Moles /volume] in Serum or PlasmaOrdered By: Teo Gongora on 12-30-2022 CO2 [Moles/Vol] 22.7 mmol/L 21.0-31.0 [facility] Chloride [Moles/volume] in S mony or PlasmaOrdered By: Teo Gongora on 12-30-2022 Chloride [Moles/Vol] 106 mmol/L 98-107 [facility] Cholesterol [Mass/volume] in Serum or PlasmaOrdered By: Teo Gongora on 12-30-2022 Cholesterol [Mass/Vol] 121 mg/dL 140-200 [facility] Comment on above: Chol less than 200 m g/dl low riskChol 201-239 mg/dl borderline riskChol 240 mg/dl and greater high risk Cholesterol in LDL Calc [Mas s/Vol]Ordered By: Teo Gongora on 12-30-2022 Cholesterol in LDL [Mass/Vol] 59 mg/dL 0-100 [facility] Comment on above: LDL ATP III CLASSIFI CATIONLDL less than 100 mg/dL OptimalLDL 100-129 mg/dL Near or above optimalLDL 130-159 mg/dL Borderline highLDL 160-189 mg/dL HighLDL greater than 189 mg/dL Very high Cholesterol in VLDL Calc [Ma ss/Vol]Ordered By: Teo Gongora on 12-30-2022 Cholesterol in VLDL [Mass/Vol] 26 mg/dL [facility] Choriogonadotropin.beta subu nit [Units/volume] in Serum or PlasmaOrdered By: Teo Gongora on 12-30-2022 HCG.beta subunit Qn Negative [facility] Coagulation Profileon 2022 aPTT Coag (Bld) [Time] 35.6 s Normal 25.1-36.5 [facility] Comment on above: Result Comment: PERF ORMED BY: [place] [address] PATHOLOGIST INTERNATIONAL TRADE ANALYST EUSEBIO DOWELL M.D. Performed By: #### P P, CREAT, HCGQUAL, CBC, LYTES, BUN, LIPID #### [facility] [address] [place] [address] INR Coag (PPP) [Relative time] 1.1 {INR} Normal [facility] Comment on above: Result Comment: INR [...] CREAT, HCGQUAL, CBC, LYTES, BUN, LIPID #### [facility] [address] [place] [address] [place] PT Coag (PPP) [Time] 12.2 s Normal 9.0-12.9 [facility] Comment on above: Performed By: #### P P, CREAT, HCGQUAL, CBC, LYTES, BUN, LIPID #### [address] Complete Blood Count Auto Di ffon 12-30-2022 Basophils (Bld) [#/Vol] 0.1 10*3/uL Normal 0.0-0.2 [facility] Comment on above: Result Comment: PERF ORMED BY: [place] [address] PATHOLOGIST INTERNATIONAL TRADE ANALYST EUSEBIO DOWELL M.D. Performed By: #### P P, CREAT, HCGQUAL, CBC, LYTES, BUN, LIPID #### [address] Basophils/100 WBC (Bld) 0.9 % Normal . [facility] Comment on above: Performed By: #### P P, CREAT, HCGQUAL, CBC, LYTES, BUN, LIPID #### [address] Eosinophils (Bld) [#/Vol] 0.1 10*3/uL Normal 0.0-0.45 [facility] Comment on above: Performed By: #### P P, CREAT, HCGQUAL, CBC, LYTES, BUN, LIPID #### [address] Eosinophils/100 WBC (Bld) 1.0 % Normal . [facility] Comment on above: Performed By: #### P P, CREAT, HCGQUAL, CBC, LYTES, BUN, LIPID #### [address] Erythrocyte distribution width (RBC) [Ratio] 15.2 % Normal 11.9-15.3 [facility] Comment on above: Performed By: #### P P, CREAT, HCGQUAL, CBC, LYTES, BUN, LIPID #### [address] Hematocrit (Bld) [Volume fraction] 40.6 % Normal 34.0-46.4 [facility] Comment on above: Performed By: #### P P, CREAT, HCGQUAL, CBC, LYTES, BUN, LIPID #### [address] Hemoglobin (Bld) [Mass/Vol] 13.6 g/dL Normal 11.8-15.4 [facility] Comment on above: Performed By: #### P P, CREAT, HCGQUAL, CBC, LYTES, BUN, LIPID #### [address] Lymphocytes (Bld) [#/Vol] 3.5 10*3/uL Normal 1.00-4.8 [facility] Comment on above: Performed By: #### P P, CREAT, HCGQUAL, CBC, LYTES, BUN, LIPID #### [address] Lymphocytes/100 WBC (Bld) 27.2 % Normal . [facility] Comment on above: Performed By: #### P P, CREAT, HCGQUAL, CBC, LYTES, BUN, LIPID #### [address] MCH (RBC) [Entitic mass] 30.0 pg Normal 24.7-34.3 [facility] Comment on above: Performed By: #### P P, CREAT, HCGQUAL, CBC, LYTES, BUN, LIPID #### [address] MCV (RBC) [Entitic vol] 89.6 fL Normal 80-100 [facility] Comment on above: Performed By: #### P P, CREAT, HCGQUAL, CBC, LYTES, BUN, LIPID #### [address] Mean Corpuscular HGB Conc 33.4 g/dL Normal 32.0-35.0 [facility] Comment on above: Performed By: #### P P, CREAT, HCGQUAL, CBC, LYTES, BUN, LIPID #### [address] Monocytes (Bld) [#/Vol] 1.3 10*3/uL High 0.0-0.8 [facility] Comment on above: Performed By: #### P P, CREAT, HCGQUAL, CBC, LYTES, BUN, LIPID #### [address] Monocytes/100 WBC (Bld) 10.1 % Normal . [facility] Comment on above: Performed By: #### P P, CREAT, HCGQUAL, CBC, LYTES, BUN, LIPID #### [address] Neutrophils (Bld) [#/Vol] 7.8 10*3/uL High 1.8-7.7 [facility] Comment on above: Performed By: #### P P, CREAT, HCGQUAL, CBC, LYTES, BUN, LIPID #### [address] Neutrophils/100 WBC (Bld) 60.8 % Normal . [facility] Comment on above: Performed By: #### P P, CREAT, HCGQUAL, CBC, LYTES, BUN, LIPID #### [address] NRBC% 0.2 /100{WBC} Normal 0-0.5 [facility] Comment on above: Performed By: #### P P, CREAT, HCGQUAL, CBC, LYTES, BUN, LIPID #### [address] Platelet mean volume (Bld) [Entitic vol] 8.2 fL Normal 6.3-10.7 [facility] Comment on above: Performed By: #### P P, CREAT, HCGQUAL, CBC, LYTES, BUN, LIPID #### [address] Platelets (Bld) [#/Vol] 338 10*3/uL Normal 150-450 [facility] Comment on above: Performed By: #### P P, CREAT, HCGQUAL, CBC, LYTES, BUN, LIPID #### [address] RBC (Bld) [#/Vol] 4.53 10*6/uL Normal 3.60-5.00 [facility] Comment on above: Performed By: #### P P, CREAT, HCGQUAL, CBC, LYTES, BUN, LIPID #### [address] WBC (Bld) [#/Vol] 12.8 10*3/uL High 3.8-11.6 [facility] Comment on above: Performed By: #### P P, CREAT, HCGQUAL, CBC, LYTES, BUN, LIPID #### [address] Creatinineon 12-30-2022 Creatinine [Mass/Vol] 0.69 mg/dL Normal 0.60-1.20 [facility] Comment on above: Performed By: #### P P, CREAT, HCGQUAL, CBC, LYTES, BUN, LIPID #### [address] GFR/1.73 sq M.predicted MDRD (S/P/Bld) [Vol rate/Area] mL/min/{1.73_m2} Normal [facility] Comment on above: Performed By: #### P P, CREAT, HCGQUAL, CBC, LYTES, BUN, LIPID #### [address] Creatinine [Mass/volume] in Serum or PlasmaOrdered By: Teo Gongora on 12-30-2022 Creatinine [Mass/Vol] 0.69 mg/dL 0.60-1.20 [facility] ECG 12 lead ECGon 12-30-2022 ECG 12 lead ECG [facility] Main [place] [address] [place] [address] Electrocardiograph Report Signed Patient: Jeanmarie Faria MR#: [id number] 49 : 1965 Acct:[id number] Age/Sex: 57 / F ADM Date: 12/30/22 Loc: CL Room: [facility] Attending Dr: Teo Gongora DO Ordering Provider: Teo Gongora DO Date of Service: 12/30/2201/18/1056 ECG/ECG 12 lead ECG: [facility] Copies to: Test Reason : Blood [...] change was found Confirmed by CHINO JERRY [facility], BOLIVAR ([id number]) on 01/01/2023 12:37:24 AM Referred By: Electronically Signed By:BOLIVAR MAGANA MD [facility] Transcribed By: MUS Signed By Bolivar Magana MD, FACC 01/01/23 0037 Normal [facility] Electrolyteson 12-30-2022 Anion gap [Moles/Vol] 12.3 mmol/L Normal 6.0-15.0 [facility] Comment on above: Performed By: #### P P, CREAT, HCGQUAL, CBC, LYTES, BUN, LIPID #### [facility] [address] [place] [address] [place] Chloride [Moles/Vol] 106 mmol/L Normal 98-107 [facility] Comment on above: Performed By: #### P P, CREAT, HCGQUAL, CBC, LYTES, BUN, LIPID #### [facility] [address] [place] [address] [place] CO2 [Moles/Vol] 22.7 mmol/L Normal 21.0-31.0 [facility] Comment on above: Performed By: #### P P, CREAT, HCGQUAL, CBC, LYTES, BUN, LIPID #### [facility] [address] [place] [address] [place] Potassium [Moles/Vol] 4.0 mmol/L Normal 3.5-5.1 [facility] Comment on above: Performed By: #### P P, CREAT, HCGQUAL, CBC, LYTES, BUN, LIPID #### [address] Sodium [Moles/Vol] 137 mmol/L Normal 136-[address] [facility] Comment on above: Performed By: #### P P, CREAT, HCGQUAL, CBC, LYTES, BUN, LIPID #### [address] Eosinophils Auto (Bld) [#/Vo l]Ordered By: Teo Gongora on 12-30-2022 Eosinophils (Bld) [#/Vol] 0.1 10*3/uL 0.0-0.45 [facility] Eosinophils/100 WBC Auto (Bl d)Ordered By: Teo Gongora on 12-30-2022 Eosinophils/100 WBC (Bld) 1.0 % . [facility] Erythrocyte distribution wid th Auto (RBC) [Ratio]Ordered By: Teo Gongora on 12-30-2022 Erythrocyte distribution width (RBC) [Ratio] 15.2 % 11.9-15.3 [facility] HCG,Qualitative Serumon HCG,Qualitative Serum Negative Normal [facility] Comment on above: Result Comment: PERF ORMED BY: [place] [address] PATHOLOGIST [employer]ADE ANALYST EUSEBIO DOWELL M.D. Performed By: #### P P, CREAT, HCGQUAL, CBC, LYTES, BUN, LIPID #### [address] Hematocrit Auto (Bld) [Volum e fraction]Ordered By: Teo Gongora on 12-30-2022 Hematocrit (Bld) [Volume fraction] 40.6 % 34.0-46.4 [facility] Hemoglobin [Mass/volume] in BloodOrdered By: Teo Gongora on 12-30-2022 Hemoglobin (Bld) [Mass/Vol] 13.6 g/dL 11.8-15.4 [facility] Laboratory - Chemistry and C hemistry - challengeon 12-30-2022 Cholesterol [Mass/Vol] 121\S\121 below low threshold 140-200 -[facility] Health Enhancement ProductsCavalier County Memorial HospitalLitigain 250 DO Work Phone: Comment on above: Chol less than 200 m g/dl low risk Chol 201-239 mg/dl borderline risk Chol 240 mg/dl and greater high risk Cholesterol in LDL [Mass/Vol] 59\S\59 Normal 0-100 -[facility] [employer] edgar 250 DO Work Phone: Comment on above: LDL ATP III CLASSIFI CATION LDL less than 100 mg/dL Optimal LDL 100-129 mg/dL Near or above optimal LDL 130-159 mg/dL Borderline high LDL 160-189 mg/dL High LDL greater than 189 mg/dL Very high Laboratory - CoagulationOrde red By: Teo Gongora on 12-30-2022 PT Coag (PPP) [Time] 12.2 s 9.0-12.9 [facility] Leukocytes [#/volume] correc roney for nucleated erythrocytes in Blood by Automated counOrdered By: Teo Gongora on 12-30-2022 WBC corrected for nucl RBC Auto (Bld) [#/Vol] 12.8 10*3/uL 3.8-11.6 [facility] Lipid Panelon 12-30-2022 Cholesterol [Mass/Vol] 121 mg/dL Low 140-200 [facility] Comment on above: Result Comment: Chol less than 200 mg/dl low risk Chol 201-239 mg/dl borderline risk Chol 240 mg/dl and greater high risk Performed By: #### P P, CREAT, HCGQUAL, CBC, LYTES, BUN, LIPID #### [facility] [address] [place] [address] [place] Cholesterol in HDL [Mass/Vol] 35 mg/dL Normal 35-85 [facility] Comment on above: Result Comment: HDL CHOL ATP-III CLASSIFICATION Cardiovascular Risk HDL > or equal to 60 mg/dL LOW HDL < 40 mg/dL HIGH Performed By: #### P P, CREAT, HCGQUAL, CBC, LYTES, BUN, LIPID #### [facility] [address] [place] [address] [place] Cholesterol.total/Chol esterol in HDL [Mass ratio] 3.5 {ratio} Normal <5.0 [facility] Comment on above: Performed By: #### P P, CREAT, HCGQUAL, CBC, LYTES, BUN, LIPID #### [facility] [address] LDL Cholesterol,Calculated 59 mg/dL Normal 0-100 [facility] Comment on above: Result Comment: LDL ATP III CLASSIFICATION LDL less than 100 mg/dL Optimal LDL 100-129 mg/dL Near or above optimal LDL 130-159 mg/dL Borderline high LDL 160-189 mg/dL High LDL greater than 189 mg/dL Very high Performed By: #### P P, CREAT, HCGQUAL, CBC, LYTES, BUN, LIPID #### [facility] [address] Triglyceride w/Reflex 133 mg/dL Normal 0-149 [facility] Comment on above: Result Comment: TRIG ATP III CLASSIFICATION TRIG less than 150 mg/dL Normal TRIG 150-199 mg/dL Borderline high TRIG 200-500 mg/dL High TRIG greater than 500 mg/dL Very high Standard traceable to the Center for Disease Conrtrol and Prevention (CDC) test method. Performed By: #### P P, CREAT, HCGQUAL, CBC, LYTES, BUN, LIPID #### [facility] [address] VLDL CHOLESTEROL 26 mg/dL Normal [facility] Comment on above: Performed By: #### P P, CREAT, HCGQUAL, CBC, LYTES, BUN, LIPID #### [facility] [address] Lymphocytes Auto (Bld) [#/Vo l]Ordered By: Teo Gongora on 12-30-2022 Lymphocytes (Bld) [#/Vol] 3.5 10*3/uL 1.00-4.8 [facility] Lymphocytes/100 WBC Auto (Bl d)Ordered By: Teo Gongora on 12-30-2022 Lymphocytes/100 WBC (Bld) 27.2 % . [facility] MCH Auto (RBC) [Entitic mass ]Ordered By: Teo Gongora on 12-30-2022 MCH (RBC) [Entitic mass] 30.0 pg 24.7-34.3 [facility] MCHC Auto (RBC) [Mass/Vol]Or dered By: Teo Gongora on 12-30-2022 MCHC (RBC) [Mass/Vol] 33.4 g/dL 32.0-35.0 [facility] MCV Auto (RBC) [Entitic vol] Ordered By: Toe Gongora on 12-30-2022 MCV (RBC) [Entitic vol] 89.6 fL 80-100 [facility] Monocytes Auto (Bld) [#/Vol] Ordered By: Teo Gongora on 12-30-2022 Monocytes (Bld) [#/Vol] 1.3 10*3/uL 0.0-0.8 [facility] Monocytes/100 WBC Auto (Bld) Ordered By: Teo Gongora on 12-30-2022 Monocytes/100 WBC (Bld) 10.1 % . [facility] Neutrophils Auto (Bld) [#/Vo l]Ordered By: eTo Gongora on 12-30-2022 Neutrophils (Bld) [#/Vol] 7.8 10*3/uL 1.8-7.7 [facility] Neutrophils/100 WBC Auto (Bl d)Ordered By: Teo Gongora on 12-30-2022 Neutrophils/100 WBC (Bld) 60.8 % . [facility] No Panel InformationOrdered By: Teo Gongora on 12-30-2022 Estimated GFR (CKD-EPI) > 60.0 mL/Min [facility] Creatinine Clearance (Chem N/A [facility] No Panel Informationon 12-30 60.8\S\60.8 Normal . -[facility] [employer] edgar 250 DO Work Phone: 8.2\S\8.2 Normal 6.3-10.7 -[facility] [employer] 250 DO Work Phone: 338\S\338 Normal 150-450 -[facility] [employer] [address]gar 250 DO Work Phone: 15.2\S\15.2 Normal 11.9-15.3 [facility]-Sandu edgar 250 DO Work Phone: [phone] 33.4\S\33.4 Normal 32.0-35.0 [facility] edgar 250 DO Work Phone: [phone] 30.0\S\30.0 Normal 24.7-34.3 [facility]u edgar 250 DO Work Phone: [phone] 7.8\S\7.8 above high threshold 1.8-7.7 [facility] edgar 250 DO Work Phone: [phone] 0.2\S\0.2 Normal 0-0.5 [facility]u edgar 250 DO Work Phone: [phone] 0.9\S\0.9 Normal . [facility] edgar 250 DO Work Phone: [phone] 1.0\S\1.0 Normal . [facility] edgar 250 DO Work Phone: [phone] 10.1\S\10.1 Normal . [facility] edgar 250 DO Work Phone: [phone] 27.2\S\27.2 Normal . [facility] edgar 250 DO Work Phone: [phone] 0.1\S\0.1 Normal 0.0-0.45 [facility] edgar 250 DO Work Phone: [phone] Comment on above: PERFORMED BY:[facility] [place] [phone] MEDICAL DIRECTOREUSEBIO DOWELL M.D. 1.3\S\1.3 above high threshold 0.0-0.8 [facility] edgar 250 DO Work Phone: [phone] 3.5\S\3.5 Normal <5.0 [facility] edgar 250 DO Work Phone: [phone] 89.6\S\89.6 Normal 80-100 [facility] [employer]liz edgar 250 DO Work Phone: 40.6\S\40.6 Normal 34.0-46.4 [facility] HeartJournallyMe 250 DO Work Phone: [phone] 13.6\S\13.6 Normal 11.8-15.4 [facility] edgar 250 DO Work Phone: [phone] 4.53\S\4.53 Normal 3.60-5.00 [facility] edgar 250 DO Work Phone: [phone] 12.8\S\12.8 above high threshold 3.8-11.6 [facility] Hospital[facility] 250 DO Work Phone: 35.6\S\35.6 Normal 25.1-36.5 [facility] Enh[facility] ProductsSt[facility] edgar 250 DO Work Phone: Comment on above: PERFORMED BY:[place] [address] [place] [place], [place] [phone] MEDICAL DIRECTOREUSEBIO DOWELL M.D. 1.1\S\1.1 Normal [facility] Health Enhancement ProductsCaval[facility] HospitalLitigain 250 DO Work Phone: Comment on above: [...] valves: 3 - 4.5 12.2\S\12.2 Normal 9.0-12.9 [facility] Health Enhancement ProductsCaval[facility] HospitalLitigain 250 DO Work Phone: 12.3\S\12.3 Normal 6.0-15.0 [facility] edgar 250 DO Work Phone: 22.7\S\22.7 Normal 21.0-31.0 [facility] edgar 250 DO Work Phone: 106\S\106 Normal 98-107 [facility] HeartFrancine hernández 250 DO Work Phone: 4.0\S\4.0 Normal 3.5-5.1 [facility] HeartFrancine hernández 250 DO Work Phone: 137\S\137 Normal 136-145 [facility] Roshan hernández 250 DO Work Phone: 13\S\13 Normal 7-25 [facility] Roshan hernández 250 DO Work Phone: > 60.0 Normal [facility] Roshan hernández 250 DO Work Phone: 0.69\S\0.69 Normal 0.60-1.20 [facility] Roshan hernández 250 DO Work Phone: 26\S\26 Normal [facility] Roshan hernández 250 DO Work Phone: 133\S\133 Normal 0-149 [facility] Roshan hernández 250 DO Work Phone: Comment on above: TRIG ATP III CLASSIF ICATION TRIG less than 150 mg/dL Normal TRIG 150-199 mg/dL Borderline high TRIG 200-500 mg/dL High TRIG greater than 500 mg/dL Very high Standard traceable to the Center for Disease Conrtrol and Prevention (CDC) test method. 35\S\35 Normal 35-85 [facility] Roshan hernández 250 DO Work Phone: Comment on above: HDL CHOL ATP-III CLA SSIFICATION Cardiovascular Risk HDL > or equal to 60 mg/dL LOW HDL < 40 mg/dL HIGH Negative Normal [facility] Roshan hernández 250 DO Work Phone: Comment on above: PERFORMED BY:[facility] [place], [place] [phone] MEDICAL DIRECTOREUSEBIO DOWELL M.D. Nucleated erythrocytes [Pres ence] in Blood by Automated countOrdered By: Teo Gongora on 12-30-2022 Nucleated RBC Auto Ql (Bld) 0.2 /100{WBC} 0-0.5 [facility] Platelet mean volume Auto (B ld) [Entitic vol]Ordered By: Teo Gongora on 12-30-2022 Platelet mean volume (Bld) [Entitic vol] 8.2 fL 6.3-10.7 [facility] Platelet poor plasma interna tional normalized ratio (INR) by coagulation assay (relatOrdered By: Teo Gongora on 12-30-2022 INR Coag (PPP) [Relative time] 1.1 {INR} [facility] Comment on above: INR Therapeutic Rang [...] 12-30-2022 Platelets (Bld) [#/Vol] 338 10*3/uL 150-450 [facility] Potassium [Moles/volume] in Serum or PlasmaOrdered By: Teo Gongora on 12-30-2022 Potassium [Moles/Vol] 4.0 mmol/L 3.5-5.1 [facility] RBC Auto (Bld) [#/Vol]Ordere d By: Teo Gongora on 12-30-2022 RBC (Bld) [#/Vol] 4.53 10*6/uL 3.60-5.00 [facility] Serum or plasma anion gap de terminationOrdered By: Teo Gongora on 12-30-2022 Anion gap [Moles/Vol] 12.3 mmol/L 6.0-15.0 [facility] Serum or plasma high density lipoprotein (HDL) cholesterol measurementOrdered By: Teo Gongora on 12-30-2022 Cholesterol in HDL [Mass/Vol] 35 mg/dL 35-85 [facility] Comment on above: HDL CHOL ATP-III CLA SSIFICATION Cardiovascular RiskHDL > or equal to 60 mg/dL LOWHDL < 40 mg/dL HIGH Serum or plasma total choles terol/high density lipoprotein (HDL) cholesterol mass ratOrdered By: Teo Gongora on 12-30-2022 Cholesterol.total/Chol esterol in HDL [Mass ratio] 3.5 {ratio} <5.0 [facility] Sodium [Moles/volume] in Ser um or PlasmaOrdered By: Teo Gongora on 12-30-2022 Sodium [Moles/Vol] 137 mmol/L 136-[address] [facility] Triglyceride [Mass/volume] i n Serum or PlasmaOrdered By: Teo Gongora on 12-30-2022 Triglyceride [Mass/Vol] 133 mg/dL 0-149 [facility] Comment on above: TRIG ATP III CLASSIF ICATIONTRIG less than 150 mg/dL NormalTRIG 150-199 mg/dL Borderline highTRIG 200-500 mg/dL High TRIG greater than 500 mg/dL Very highStandard traceable to the Center for Disease Conrtrol and Prevention (CDC) test method. Urea nitrogen [Mass/volume] in Serum or PlasmaOrdered By: Teo Gongora on 12-30-2022 Urea nitrogen [Mass/Vol] 13 mg/dL 7-25 [facility] WBC Auto (Bld) [#/Vol]Ordere d By: Teo Gongora on 12-30-2022 WBC (Bld) [#/Vol] 12.8 10*3/uL 3.8-11.6 [facility] Office Visit (Cardiology)on 12-28-2022 Follow-up visit [...] She has a history of non-ST elevation PA in November 2021 with two-vessel revascularization involving [...] Social History Problems Current smoker (305.1) (F17.200) 2 ppd Daily caffeine consumption 3-4 daily No alcohol use No illicit drug use Review of Systems Cardiovascular: chest pain. Respiratory: shortness of breath and shortness of breath during exertion, but no cough. Vitals Vital Signs Recorded: 28Dec2022 11:26AM Heart Rate68, L Radial Ydvildjq127, LUE, Sitting Pbuhaxoqu76, LUE, Sitting Height5 ft 4 in Elmcxp859 lb BMI Pfarugwfsd68.01 kg/m2 BSA Calculated1.82 Tobacco Usea) Yes Patient [...] Screening.on 023 Adult depression screening assessment No [facility] edgar 250 DO Work Phone: Tobacco use status CPHS a) Yes [facility] edgar 250 DO Work Phone: Tobacco Screening. Yes [facility] edgar 250 DO Work Phone: [...] ABELARDO FLANNERY Date: 2022-08-11 11:03 Normal [facility] CARDIAC DANETTE 3-6on 2 CK [Catalytic activity/Vol] 64 U/L Normal 26-192 [facility] Comment on above: Performed By: #### C MREP ####[facility] [address] [place] [address]DrElbert Marrero CK.MB [Mass/Vol] 0.84 ng/mL Normal <=3.60 [facility] Comment on above: Performed By: #### C MREP ####[facility] [address] [place] [address]DrElbert Marrero HSTROP 19.7 pg/mL Normal 4.0-51.3 [facility] Comment on above: Result Comment: CUT- OFF POINTS HAVE BEEN ESTABLISHED BASED ON THE FOURTH UNIVERSAL DEFINITIONS OF MYOCARDIAL INFARCTION. THE UPPER REFERENCE LIMIT (URL) OF TROPONIN, DEFINED THE 99TH PERCENTILE OF cTnI DISTRIBUTION IN A REFERENCE POPULATION, HAS BEEN CONFIRMED THE DECISION THRESHOLD FOR PA DIAGNOSIS. Performed By: #### C MREP ####[facility] [address] [place], [place] [address]AsElbert Marrero CARDIAC DANETTE ADMITon 022 CK [Catalytic activity/Vol] 63 U/L Normal 26-192 [facility] Comment on above: Performed By: #### B ROWAN, CMADM ####[facility] [address] [place], [place] [address]SmElbert Marrero CK.MB [Mass/Vol] 0.78 ng/mL Normal <=3.60 [facility] Comment on above: Performed By: #### B ROWAN, KAILYN ####[facility] [address] [place] [address]DrElbert Marrero HSTROP 19.6 pg/mL Normal 4.0-51.3 [facility] Comment on above: Result Comment: CUT- OFF POINTS HAVE BEEN ESTABLISHED BASED ON THE FOURTH UNIVERSAL DEFINITIONS OF MYOCARDIAL INFARCTION. THE UPPER REFERENCE LIMIT (URL) OF TROPONIN, DEFINED THE 99TH PERCENTILE OF cTnI DISTRIBUTION IN A REFERENCE POPULATION, HAS BEEN CONFIRMED THE DECISION THRESHOLD FOR PA DIAGNOSIS. Performed By: #### B ROWAN, KAILYN ####[facility] [address] [place] [address]DrElbert Marrero DIANA 19 ng/mL Normal 9-82 [facility] Comment on above: Performed By: #### B KAILYN DONAHUE ####[facility] [address] [place] [address]DrElbert Marrero CBC W MANUAL DIFFon 06-23-20 22 ATYPICAL LYMPH # Normal [facility] Comment on above: Performed By: #### C JENN #### [facility] [address] [place] [address] [address] Jozef Marrero ATYPICAL LYMPH % Normal [facility] Comment on above: Performed By: #### C JENN #### [facility] [address] [place] [address] Dr. Jozef Marrero BAND # 0.0 103/ul Normal 0.0-0.3 [facility] Comment on above: Performed By: #### C JENN #### [facility] [address] [place] [address] [address] Jozef Marrero BAND % 0 % Normal 0-5 [facility] Comment on above: Performed By: #### C JENN #### [facility] [address] [place] [address] Dr. Jozef Marrero BASOM # 0.11 103/ul Critically high 0.00-0.10 [facility] Comment on above: Performed By: #### C JENN #### [facility] [address] [place] [address] Dr. Jozef Marrero BASOM % 1.0 % Normal 0.2-2.0 [facility] Comment on above: Performed By: #### C BCMAN #### [facility] [address] [place] [address] Dr. Jozef Marrero BLAST # Normal [facility] Comment on above: Performed By: #### C BCJUANITA #### [facility] [address] [place] [address] Dr. Jozef Marrero BLAST % Normal [facility] Comment on above: Performed By: #### C JENN #### [facility] [address] [place] [address] Dr. Jozef Marrero CORRECTED WBC Normal 4.0-11.0 [facility] Comment on above: Performed By: #### C JENN #### [facility] [address] [place] [address] Dr. Jozef Marrero EOS # 0.00 103/ul Normal 0.00-0.70 [facility] Comment on above: Performed By: #### C JENN #### [facility] [address] [place] [address] Dr. Jozef Marrero EOS% 0.0 % Critically low 0.9-7.0 [facility] Comment on above: Performed By: #### C JENN #### [facility] [address] [place] [address] Dr. Jozef Marrero HCT 40.1 % Normal 36.0-48.0 [facility] Comment on above: Performed By: #### C BCJUANITA #### [facility] [address] [place] [address] Dr. Jozef Marrero HGB 13.7 g/dl Normal 12.0-16.0 [facility] Comment on above: Performed By: #### C BCJUANITA #### [facility] [address] [place] [address] Dr. Jozef Marrero LYMPHM # 2.70 103/ul Normal 1.20-3.80 [facility] Comment on above: Performed By: #### C BCJUANITA #### [facility] [address] [place] [address] Dr. Jozef Marrero LYMPHM% 25.0 % Normal 20.5-60.0 [facility] Comment on above: Performed By: #### C JENN #### [facility] [address] [place] [address] Dr. Jozef Marrero MCH 30.4 pg Normal 26.7-34.0 [facility] Comment on above: Performed By: #### C JENN #### [facility] [address] [place] [address] Dr. Jozef Marrero MCHC 34.2 g/dl Normal 29.9-35.2 [facility] Comment on above: Performed By: #### C JENN #### [facility] [address] [place] [address] Dr. Jozef Marrero MCV 88.9 fL Normal 81.0-99.0 [facility] Comment on above: Performed By: #### C JENN #### [facility] [address] [place] [address] Dr. Jozef Marrero METAMYELOCYTE # Normal [facility] Comment on above: Performed By: #### C JENN #### [facility] [address] [place] [address] Dr. Jozef Marrero METAMYELOCYTE % Normal [facility] Comment on above: Performed By: #### C JENN #### [facility] [address] [place] [address] Dr. Jozef Marrero MONOM# 0.97 103/ul Critically high 0.30-0.80 [facility] Comment on above: Performed By: #### C JENN #### [facility] [address] [place] [address] Dr. Jozef Marrero MONOM% 9.0 % Normal 1.7-12.0 [facility] Comment on above: Performed By: #### C JENN #### [facility] [address] [place] [address] Dr. Jozef Marrero MPV 9.9 fL Normal 9.5-13.5 [facility] Comment on above: Performed By: #### C JENN #### [facility] [address] [place] [address] [address] Jozef Marrero MYELOCYTE # Normal [facility] Comment on above: Performed By: #### C JENN #### [facility] [address] [place] [address] Dr. Jozef Marrero MYELOCYTE % Normal [facility] Comment on above: Performed By: #### C JENN #### [facility] [address] [place] [address] Dr. Jozef Marrero NRBC Normal [facility] Comment on above: Performed By: #### C JENN #### [facility] [address] [place] [address] Dr. Jozef Marrero PLT 339 103/ul Normal 150-450 [facility] Comment on above: Performed By: #### C JENN #### [facility] [address] [place] [address] Dr. Jozef Marrero RBC 4.51 106/ul Normal 4.20-5.40 [facility] Comment on above: Performed By: #### C JENN #### [facility] [address] [place] [address] Dr. Jozef Marrero RDW 14.6 % Normal 11.0-15.0 [facility] Comment on above: Performed By: #### C JENN #### [facility] [address] [place] [address] Dr. Jozef Marrero SEG # 7.02 103/ul Critically high 1.40-6.50 [facility] Comment on above: Performed By: #### C JENN #### [facility] [address] [place] [address] Dr. Jozef Marrero SEG % 65.0 % Normal 43.0-75.0 [facility] Comment on above: Performed By: #### C JENN #### [facility] [address] [place] [address] Dr. Jozef Marrero WBC 10.8 103/ul Normal 4.0-11.0 [facility] Comment on above: Performed By: #### C JENN #### [facility] [address] [address] [id number] Jozef Marrero Covid-19 PCR (CVDTB)on 05-29 SARS-CoV-2 (COVID-19) RNA NEVA+probe Ql (Unsp spec) Detected Critically abnormal NOT DETECTED [facility] Comment on above: Result Comment: This test is not yet approved or cleared by the [place] FDA. When there are no FDA-approved or cleared tests available, and other criteria are met, FDA can make tests available under an emergency access mechanism called an Emergency Use Authorization (EUA). The EUA for this test is supported by the [place] of Health and Human Service's declaration that [...] used). Performed By: #### C VDTBH #### [facility] [address] [address] [address] Jozef Marrero D-DIMERon 06-23-2022 D-DIMER 0.53 mg/L FEU Normal <=0.59 [facility] Comment on above: Performed By: #### D DIM ####[facility] [address] [place], [place] [address]VnDr. Jozef Marrero D-DIMER COMMENTS SEE BELOW Normal [facility] Comment on above: Result Comment: Incr [...] generalized hospitalization. Performed By: #### D DIM ####[facility] [address] [place], [place] [address]CaDr. Jozef Marrero PROF CHEM 8 (BAS METB)on Anion gap [Moles/Vol] 12.6 mmol/L Normal [facility] Comment on above: Performed By: #### B KAILYN DONAHUE ####[facility] [address] [address]Dr. Jozef Marrero Calcium [Mass/Vol] 8.9 mg/dL Normal 8.5-10.1 [facility] Comment on above: Performed By: #### KAILYN Everett MP ####[facility] [address] [address]Dr. Jozef Marrero Chloride [Moles/Vol] 104 mmol/L Normal 98-107 [facility] Comment on above: Performed By: #### B KAILYN DONAHUE ####[facility] [address] [place], [place] [address]Dr. Desireeanirudh Marrero CO2 [Moles/Vol] 24.7 mmol/L Normal 21.0-32.0 [facility] Comment on above: Performed By: #### KAILYN Everett MP ####[facility] N[address] [place], [place] [address]Dr. Jozef Marrero Creatinine [Mass/Vol] 0.85 mg/dL Normal 0.55-1.02 [facility] Comment on above: Performed By: #### KAILYN Everett MP ####[facility] [address] [place], [place] [address]Dr. Jozef Janes EGFR-AF AUSTRIAN >60 Normal >=60 [facility] Comment on above: Performed By: #### KAILYN Everett MP ####[facility] [address] [place], [place] [address]Dr. Jozef Janes EGFR-NON AF AUSTRIAN >60 Normal >=60 [facility] Comment on above: Performed By: #### KAILYN Everett MP ####[facility] [address] [place], [place] [address]Dr. Desireeanirudh Janes Glucose [Mass/Vol] 123 mg/dL Critically high 74-106 [facility] Comment on above: Performed By: #### KAILYN Everett MP ####[facility] [address] [place], [place] [address]Dr. Jozef Marrero Potassium [Moles/Vol] 3.3 mmol/L Critically low 3.5-5.1 [facility] Comment on above: Performed By: #### B ROWAN, CMADM ####[facility] [address] [place], [place] [address]Zp. Jozef Marrero Sodium [Moles/Vol] 138 mmol/L Normal 136-145 [facility] Comment on above: Performed By: #### B ROWAN, CMADM ####[facility] [address] [address]Dr. Jozef Marrero Urea nitrogen [Mass/Vol] 19.0 mg/dL Critically high 7.0-18.0 [facility] Comment on above: Performed By: #### B ROWNA, CMADM ####[facility] [address] [address]Dr. Jozef Marrero Urea nitrogen/Creatinine [Mass ratio] 22.4 mg/mg Normal [facility] Comment on above: Performed By: #### B ROWAN, CMADM ####[facility] [address] [address]Dr. Jozef Marrero XR CHEST 1 06-23-2022 XR [...] JAMIE NEGRON Date: 2022-06-23 02:50 Normal [facility] Office Visit (Cardiology)on 05-05-2022 Follow-up visit [...] Weight Tips; Status:Complete - Retrospective Authorization; Done: [id number] Some eating tips that can help you lose weight.; Status:Complete - Retrospective Authorization; Done: [id number] SocHx: Current smoker You need to stop smoking. Though it is not easy, more than half of all adult smokers have quit. We encourage you to write down all the reasons you should quit smoking and set a quit date for yourself. Ask us how we can help. You may also call 7-229-WOBMNOW for free resources and assistance.; Status:Complete - Retrospective Authorization; Done: [id number] Tobacco Use Screening; Status:Complete; Done: [id number] Patient Instructions Please bring all medicines, vitamins, [...] Recorded: 05May2022 11:41AM Heart Rate80, L Radial Nezbfsiy927, LUE, Sitting Qdvnsilns26, LUE, Sitting Height5 ft 4 in Tkqrtk333 lb BMI Aywtaxzrik65.92 kg/m2 BSA Calculated1.74 Tobacco Usea) Yes Patient encouraged to stop using tobacco productsYes Falls Screening (Age 18+)c) Not medically indicated Physical Exam Constitutional: alert and in no acute distress. Neck: neck is supple, symmetric, trachea midline, no masses and no thyromegaly . Pulmonary: no increased work of breathing or signs of respira (more content not included)... Normal [facility] Tobacco Screening.on 022 Fall risk assessment c) Not medically indicated -[facility]-Sandu [address]gar [address] DO Work Phone: Tobacco use status CP a) Yes -[facility]u [address] 250 DO Work Phone: Tobacco Screening. Yes [facility] Heart-Sandu [address] 250 DO Work Phone: [...] Dr. Brett Gongora DO Diagnosis: [facility] equipment agreement signed. JEANMARIE understands monitor is to be returned on: 02/24/2022 Monitor number [id number] applied. Holter monitor returned and downloaded. Holter monitor printed and placed on Dr. Brett Gongora DO desk to dictate. Diagnosis/Problems Assessed History of syncope (V15.89) (Z87.898) Future Appointments Date/TimeProviderSpecialty Site 05/05/2022 11:20 Brett Reich DOCardiology703 [facility] 2 Mad[address] 250 DO Signatures Electronically signed by : Isabel Cagle APRN-GUERRERO; Feb 25 2022 12:14PM EST (Author) Electronically signed by : Brett Gongora DO; Mar 18 2022 3:39PM EST (Author) Normal [employer] Echocardiogramon 02-22-2022 Echocardiography [facility] dusky [address] [place] [address], [address] [place] [address] TRANSTHORACIC ECHOCARDIOGRAM REPORT Patient Name: JEANMARIE FARIA Reading Physician: [id number] Bolivar Magana MD, [facility] Study Date: 02/22/2022 Referring [id number] BRETT GONGORA Physician: MRN/PID: [id number] PCP: Aris Stewart MD Accession/Order#: [id number] [facility] Location: Date of : 1965 Fellow: Gender: F Nurse: Admit Date: Chemical Treatment Operator: Fern Cardona RDCS, RVT Height: 162.56 cm CC Report to: Weight: 63.05 kg Study Type: Echocardiogram BSA: 1.68 m2 Blood Pressure: 128 /70 mmHg Diagnosis/ICD: I42.2-Other hypertrophic cardiomyopathy; R06.00-Dyspnea, unspecified Indication: PA and PTCA-11/2021, Tobacco Abuse, Syncope Procedure/CPT: Echo Limited-12391 Study Detail: The following Echo studies were [...] 36.90 cm LVOT Diameter: 2.10 cm (1.8-2.4cm) [id number] Bolivar Magana MD, FACC Electronically signed on 02/24/2022 at 8:25:04 PM Final Normal [facility] Echocardiography Please click on the link to view the study images Normal -[facility] edgar 250 DO Work Phone: MG MAMM SCREEN 3D GIANNI CADon 02-21-2022 MG MAMM SCREEN 3D GIANNI CAD Patient: JEANMARIE FARIA Exam Date: 02/21/2022 : 1965 Gender:F Ordering : DR ARIS STEWART D.O. Admission #: [id number] Family : Order #: [id number] CLICK HERE TO VIEW EXAM RADIOLOGY REPORT PROCEDURE: MAMMOGRAM SCREENING 3D BILATERAL CAD COMPARISON: None. INDICATIONS: Screening for malignant neoplasm of breast Calculator Name NCI Breast Cancer Risk Assessment Tool 5 Year Breast Cancer Risk 1.90% Lifetime Breast Cancer Risk 13.60% Personal Breast Cancer No Personal Ovarian Cancer No Treatments None Family Cancers None LOCATION: [facility] BREAST COMPOSITION: Scattered areas fibroglandular density. [...] MD on 02/21/2022 at 14:37 Normal [facility] Covid-19 PCR (CVDTB)on SARS-CoV-2 (COVID-19) RNA NEVA+probe Ql (Unsp spec) Not detected Normal NOT DETECTED [facility] Comment on above: Result Comment: This test is not yet approved or cleared by the [place] FDA. When there are no FDA-approved or cleared tests available, and other criteria are met, FDA can make tests available under an emergency access mechanism called an Emergency Use Authorization (EUA). The EUA for this test is supported by the Assistant [employer] Coach of Health and Human Service's (HHS's) declaration [...] consistent with SARS-CoV-2. Performed By: #### C [facility] #### [facility] [address] [place], [place] [address] Dr. Jozef Marrero Office Visit (Cardiology)on 01-25-2022 [...] we can help. You may also call 8-491-YGNPNOW for free resources and assistance.; Status:Complete - Retrospective Authorization; Done: 25Jan2022 Tobacco Use Screening; Status:Complete; Done: 25Jan2022 Patient Instructions Please bring all medicines, vitamins, [...] 56-year-old female returns following recent non-ST elevation PA, , Discharged December 16, following revascularization of [...] has a history of heart transplantation in [place], and was sent to a [facility] with similar flulike illness and was diagnosed with influenza. Patient remains on appropriate postinfarction guideline directed medical therapies, she still smoking 1/2 pack cigarettes a day but is cut back quite a bit. 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 Normal [facility] Tobacco Screening.on 022 Adult depression screening assessment No [employer] Work Phone: Adult depression screening assessment Yes [employer] [place] [facility] Work Phone: Fall risk assessment a) No falls within the last year [facility] Work Phone: Tobacco use status CPHS a) Yes [facility] Work Phone: Tobacco Screening. Yes [facility] Work Phone: Tobacco Screening. 2-More than half the days [facility] Work Phone: Tobacco Screening. 0-Not at all [facility] Work Phone: Tobacco Screening. 3-Nearly every day [facility] Work Phone: Tobacco Screening. Not difficult at all [facility] Work Phone: Blood hemoglobin measurement (mass/volume)Ordered By: Viviane Loco on 12-16-2021 Hemoglobin (Bld) [Mass/Vol] 14.1 g/dL 11.8-15.4 [facility] Creatinine and Glomerular fi ltration rate.predicted panel (S/P/Bld)Ordered By: Viviane Loco on 12-16-2021 Creatinine [Mass/Vol] 0.72 mg/dL 0.44-1.03 [facility] Erythrocyte distribution wid th Auto (RBC) [Ratio]Ordered By: Viviane Loco on 12-16-2021 Erythrocyte distribution width (RBC) [Ratio] 14.4 % 11.9-15.3 [facility] Estimated glomerular filtrat ion rate (GFR) non- AmericanOrdered By: Viviane Loco on 12-16-2021 GFR/1.73 sq M.predicted among non-blacks MDRD (S/P/Bld) [Vol rate/Area] > 60 mL/Min [facility] Hematocrit Auto (Bld) [Volum e fraction]Ordered By: Viviane Loco on 12-16-2021 Hematocrit (Bld) [Volume fraction] 42.2 % 34.0-46.4 [facility] MCH Auto (RBC) [Entitic mass ]Ordered By: Viviane Loco on 12-16-2021 MCH (RBC) [Entitic mass] 29.8 pg 24.7-34.3 [facility] MCHC Auto (RBC) [Mass/Vol]Or dered By: Viviane Loco on 12-16-2021 MCHC (RBC) [Mass/Vol] 33.3 g/dL 32.0-35.0 [facility] MCV Auto (RBC) [Entitic vol] Ordered By: Viviane Loco on 12-16-2021 MCV (RBC) [Entitic vol] 89.4 fL 80-100 [facility] No Panel InformationOrdered By: Viviane Loco on 12-16-2021 Estimated GFR () > 60 mL/Min [facility] Comment on above: GFR estimated refere nce range: According to KDOQI guidelines, <60 ml/min/1.73m2 is sufficient to diagnose a patient with chronic kidney disease. Pharmacy Creatinine Clearance (Chem 77.13 [facility] Platelet mean volume Auto (B ld) [Entitic vol]Ordered By: Viviane Loco on 12-16-2021 Platelet mean volume (Bld) [Entitic vol] 8.7 fL 6.3-10.7 [facility] Platelets Auto (Bld) [#/Vol] Ordered By: Viviane Loco on 12-16-2021 Platelets (Bld) [#/Vol] 304 10*3/uL 150-450 [facility] RBC Auto (Bld) [#/Vol]Ordere d By: Viviane Loco on 12-16-2021 RBC (Bld) [#/Vol] 4.72 10*6/uL 3.60-5.00 [facility] Serum or plasma calcium chuck urement (mass/volume)Ordered By: Viviane Loco on 12-16-2021 Calcium [Mass/Vol] 9.6 mg/dL 8.2-10.[address] [facility] Serum or plasma chloride susan surement (moles/volume)Ordered By: Viviane Loco on 12-16-2021 Chloride [Moles/Vol] 105 mmol/L 95-114 [facility] Serum or plasma glucose chuck urement (mass/volume)Ordered By: Viviane Loco on 12-16-2021 Glucose [Mass/Vol] 90 mg/dL 70-[address] [facility] Comment on above: ADA recommended refe rence rangeRandom Glucose Reference Range is dependent on time and content of last meal. Glucose of more than 200 mg/dL in a nonstressed, ambulatory subject supports the diagnosis of Diabetes Mellitus. Serum or plasma potassium me asurement (moles/volume)Ordered By: Viviane Loco on 12-16-2021 Potassium [Moles/Vol] 4.0 mmol/L 3.5-5.1 [facility] Serum or plasma sodium measu rement (moles/volume)Ordered By: Viviane Loco on 12-16-2021 Sodium [Moles/Vol] 136 mmol/L 136-[address] [facility] Serum or plasma total carbon dioxide measurement (moles/volume)Ordered By: Viviane Loco on 12-16-2021 CO2 [Moles/Vol] 21.5 mmol/L 22.0-30.0 [facility] Serum or plasma urea nitroge n measurement (mass/volume)Ordered By: Viviane Loco on 12-16-2021 Urea nitrogen [Mass/Vol] 12 mg/dL 9-23 [facility] Troponin I.cardiac [Mass/vol ume] in Serum or Plasma by High sensitivity methodOrdered By: Teo Gongora on 12-16-2021 Troponin I.cardiac High sensitivity method [Mass/Vol] 6412 pg/mL 0-15 [facility] Comment on above: Results calledat 080 2 on 12/16/21 WBC Auto (Bld) [#/Vol]Ordere d By: Viviane Loco on 12-16-2021 WBC (Bld) [#/Vol] 12.5 10*3/uL 3.8-11.6 [facility] Basophils Auto (Bld) [#/Vol] Ordered By: Viviane Loco on 12-15-2021 Basophils (Bld) [#/Vol] 0.1 10*3/uL 0.0-0.2 [facility] Basophils/100 WBC Auto (Bld) Ordered By: Viviane Loco on 12-15-2021 Basophils/100 WBC (Bld) 0.7 % [facility] Cholesterol [Mass/volume] in Serum or PlasmaOrdered By: Viviane Loco on 12-15-2021 Cholesterol [Mass/Vol] 262 mg/dL 140-200 [facility] Comment on above: Chol less than 200 m g/dl low riskChol 201-239 mg/dl borderline riskChol 240 mg/dl and greater high risk Cholesterol in LDL Calc [Mas s/Vol]Ordered By: Viviane Loco on 12-15-2021 Cholesterol in LDL [Mass/Vol] 202 mg/dL 0-100 [facility] Comment on above: LDL ATP III CLASSIFI CATIONLDL less than 100 mg/dL OptimalLDL 100-129 mg/dL Near or above optimalLDL 130-159 mg/dL Borderline highLDL 160-189 mg/dL HighLDL greater than 189 mg/dL Very high Cholesterol in VLDL Calc [Ma ss/Vol]Ordered By: Viviane Loco on 12-15-2021 Cholesterol in VLDL [Mass/Vol] 27 mg/dL [facility] Eosinophils Auto (Bld) [#/Vo l]Ordered By: Viviane Loco on 12-15-2021 Eosinophils (Bld) [#/Vol] 0.1 10*3/uL 0.0-0.45 [facility] Eosinophils/100 WBC Auto (Bl d)Ordered By: Viviane Loco on 12-15-2021 Eosinophils/100 WBC (Bld) 0.5 % [facility] Laboratory - Hematology and Cell countsOrdered By: Viviane Loco on 12-15-2021 Nucleated RBC/100 WBC (Bld) [Ratio] 0.1 % 0-0.5 [facility] WBC (Bld) [#/Vol] 13.3 10*3/uL 4.5-11.0 [facility] Lymphocytes Auto (Bld) [#/Vo l]Ordered By: Viviane Loco on 12-15-2021 Lymphocytes (Bld) [#/Vol] 3.8 10*3/uL 1.00-4.8 [facility] Lymphocytes/100 WBC Auto (Bl d)Ordered By: Viviane Loco on 12-15-2021 Lymphocytes/100 WBC (Bld) 28.9 % [facility] Monocytes Auto (Bld) [#/Vol] Ordered By: Viviane Loco on 12-15-2021 Monocytes (Bld) [#/Vol] 1.3 10*3/uL 0.0-0.8 [facility] Monocytes/100 WBC Auto (Bld) Ordered By: Viviane Loco on 12-15-2021 Monocytes/100 WBC (Bld) 9.5 % [facility] Neutrophils Auto (Bld) [#/Vo l]Ordered By: Viviane Loco on 12-15-2021 Neutrophils (Bld) [#/Vol] 8.0 10*3/uL 1.8-7.7 [facility] Neutrophils/100 WBC Auto (Bl d)Ordered By: Viviane Loco on 12-15-2021 Neutrophils/100 WBC (Bld) 60.4 % [facility] Serum or plasma high density lipoprotein (HDL) cholesterol measurementOrdered By: Viviane Loco on 12-15-2021 Cholesterol in HDL [Mass/Vol] 33 mg/dL 35-85 [facility] Comment on above: HDL CHOL ATP-III CLA SSIFICATION Cardiovascular RiskHDL > or equal to 60 mg/dL LOWHDL < 40 mg/dL HIGH Serum or plasma total choles terol/high density lipoprotein (HDL) cholesterol mass ratOrdered By: Viviane Loco on 12-15-2021 Cholesterol.total/Chol esterol in HDL [Mass ratio] 7.9 {ratio} [facility] Triglyceride [Mass/volume] i n Serum or PlasmaOrdered By: Viviane Loco on 12-15-2021 Triglyceride [Mass/Vol] 135 mg/dL 35-149 [facility] Comment on above: TRIG ATP III CLASSIF ICATIONTRIG less than 150 mg/dL NormalTRIG 150-199 mg/dL Borderline highTRIG 200-500 mg/dL High TRIG greater than 500 mg/dL Very highStandard traceable to the Center for Disease Conrtrol and Prevention (CDC) test method. AMYLASEon 12-14-2021 Amylase [Catalytic activity/Vol] 33 U/L Normal 25-115 [facility] Comment on above: Performed By: #### A MY, LIVER, BMP, LIPA, HSTROPN ####[facility] [address] [address]Dr. Jozef Marrero CBC W MANUAL DIFFon 12-15-19 22 ATYPICAL LYMPH # 2.72 103/ul Normal [facility] Comment on above: Performed By: #### C JENN ####[facility] [address] [address]Dr. Jozef Marrero ATYPICAL LYMPH % 17 % Normal [facility] Comment on above: Performed By: #### C JENN ####[facility] [address] [address]Dr. Jozef Marrero BAND # Normal 0.0-0.3 [facility] Comment on above: Performed By: #### C JENN ####[facility] [address] [place], [place] [address]Dr. Jozef Marrero BAND % Normal 0-5 [facility] Comment on above: Performed By: #### C JENN ####[facility] [address] [place], [place] [address]Dr. Jozef Marrero BASOM # 0.00 103/ul Normal 0.00-0.10 [facility] Comment on above: Performed By: #### C JENN ####[facility] [address] [place], [place] [address]Dr. Jozef Marrero BASOM % 0.0 % Critically low 0.2-2.0 [facility] Comment on above: Performed By: #### C JENN ####[facility] [address] [place], [place] [address]Dr. Jozef Marrero BLAST # Normal [facility] Comment on above: Performed By: #### C JENN ####[facility] [address] [place], [place] [address]Dr. Jozef Marrero BLAST % Normal [facility] Comment on above: Performed By: #### C JENN ####[facility] X[address] [place], [place] [address]Dr. Jozef Marrero CORRECTED WBC Normal 4.0-11.0 [facility] Comment on above: Performed By: #### C JENN ####[facility] [address] [address]Dr. Jozef Marrero EOS # 0.16 103/ul Normal 0.00-0.70 [facility] Comment on above: Performed By: #### C JENN ####[facility] [address] [address]Dr. Jozef Marrero EOS% 1.0 % Normal 0.9-7.0 [facility] Comment on above: Performed By: #### C JENN ####[facility] [address] [address]Dr. Jozef Marrero HCT 45.0 % Normal 36.0-48.0 [facility] Comment on above: Performed By: #### C JENN ####[facility] [address] [place], [place] [address]Dr. Jozef Marrero HGB 15.2 g/dl Normal 12.0-16.0 [facility] Comment on above: Performed By: #### C JENN ####[facility] [address] [place], [place] [address]Dr. Jozef Marrero LYMPHM # 3.68 103/ul Normal 1.20-3.80 [facility] Comment on above: Performed By: #### Bennett BARAJAS ####[facility] [address] [place], [place] [address]Dr. Jozef Marrero LYMPHM% 23.0 % Normal 20.5-60.0 [facility] Comment on above: Performed By: #### C JENN ####[facility] [address] [place], [place] [address]Dr. Jozef Marrero MCH 30.0 pg Normal 26.7-34.0 [facility] Comment on above: Performed By: #### C JENN ####[facility] [address] [place], [place] [address]Dr. Jozef Marrero MCHC 33.8 g/dl Normal 29.9-35.2 [facility] Comment on above: Performed By: #### Bennett BARAJAS ####[facility] [address] [place] [address]Dr. Jozef Marrero MCV 88.9 fL Normal 81.0-99.0 [facility] Comment on above: Performed By: #### C JENN ####[facility] [address] [id number]. Jozef Marrero METAMYELOCYTE # Normal [facility] Comment on above: Performed By: #### C JENN ####[facility] [address] [address]Dr. Jozef Marrero METAMYELOCYTE % Normal [facility] Comment on above: Performed By: #### C JENN ####[facility] [address] [place], [place] [address]Dr. Jozef Marrero MONOM# 0.64 103/ul Normal 0.30-0.80 [facility] Comment on above: Performed By: #### C JENN ####[facility] [address] [place], [place] [address]Dr. Jozef Marrero MONOM% 4.0 % Normal 1.7-12.0 [facility] Comment on above: Performed By: #### C JENN ####[facility] [address] [place], [place] [address]Dr. Jozef Marrero MPV 10.3 fL Normal 9.5-13.5 [facility] Comment on above: Performed By: #### C JENN ####[facility] [address] [place], [place] [address]Dr. Jozef Marrero MYELOCYTE # Normal [facility] Comment on above: Performed By: #### C JENN ####[facility] [address] [id number]. Jozef Marrero MYELOCYTE % Normal [facility] Comment on above: Performed By: #### C JENN ####[facility] [address] [place], [place] [address]Dr. Desireeanirudh Marrero NRBC Normal [facility] Comment on above: Performed By: #### C JENN ####[facility] [address] [place], [place] [address]Dr. Jozef Marrero PLT 373 103/ul Normal 150-450 [facility] Comment on above: Performed By: #### C JENN ####[facility] [address] [place], [place] [address]Eh. Jozef Marrero RBC 5.06 106/ul Normal 4.20-5.40 [facility] Comment on above: Performed By: #### C JENN ####[facility] [address] [place], [place] [address]Lq. Jozef Marrero RDW 14.2 % Normal 11.0-15.0 [facility] Comment on above: Performed By: #### C JENN ####[facility] [address] [place], [place] [address]Oe. Jozef Marrero SEG # 8.80 103/ul Critically high 1.40-6.50 [facility] Comment on above: Performed By: #### C JENN ####[facility] [id number] [place], [place] [address]Wk. Jozef Marrero SEG % 55.0 % Normal 43.0-75.0 [facility] Comment on above: Performed By: #### C JENN ####[facility] [id number] [place], [place] [address]Vn. Jozef Marrero WBC 16.0 103/ul Critically high 4.0-11.0 [facility] Comment on above: Performed By: #### C JENN ####[facility] [address] [place], [place] [address]Mv. Jozef Marrero [facility]-26 SARS-CoV-2 (COVID-19) RNA NEVA+probe Ql (Unsp spec) Not detected Normal NOT DETECTED [facility] Comment on above: Result Comment: When [...] for this test is supported by the Assistant Cross [employer] Coach of Health and Human Service's declaration that [...] used). Performed By: #### C VDTBH #### [facility] [address] [place] [address] Dr. Jozef Marrero LIPASEon 12-14-2021 Lipase [Catalytic activity/Vol] 49.0 U/L Normal 23.0-300.0 [facility] Comment on above: Performed By: #### A MY, LIVER, BMP, LIPA, HSTROPN #### [facility] [address] [place] [address] Dr. Jozef Marrero LIVER PROFILEon 12-14-2021 Albumin [Mass/Vol] 4.0 g/dL Normal 3.4-5.0 [facility] Comment on above: Performed By: #### A MY, LIVER, BMP, LIPA, HSTROPN #### [facility] [address] [place] [address] Dr. Jozef Marrero Albumin/Globulin [Mass ratio] 0.9 {ratio} Normal [facility] Comment on above: Performed By: #### A MY, LIVER, BMP, LIPA, HSTROPN #### [facility] [address] [place] [address] Dr. Jozef Marrero ALP [Catalytic activity/Vol] 143 U/L Critically high 46-116 [facility] Comment on above: Performed By: #### A MY, LIVER, BMP, LIPA, HSTROPN #### [facility] [address] [place] [address] Dr. Jozef Marrero ALT [Catalytic activity/Vol] 21 U/L Normal 14-59 [facility] Comment on above: Performed By: #### A MY, LIVER, BMP, LIPA, HSTROPN #### [facility] [address] [place] [address] Dr. Jozef Marrero AST [Catalytic activity/Vol] 70 U/L Critically high 15-37 [facility] Comment on above: Performed By: #### A MY, LIVER, BMP, LIPA, HSTROPN #### [facility] [address] [place] [address] Dr. Jozef Marrero BILI, CONJUGATED 0.1 mg/dL Normal 0.0-0.3 [facility] Comment on above: Performed By: #### A MY, LIVER, BMP, LIPA, HSTROPN #### [facility] [address] [place] [address] Dr. Jozef Marrero Bilirubin [Mass/Vol] 0.4 mg/dL Normal 0.2-1.3 [facility] Comment on above: Performed By: #### A MY, LIVER, BMP, LIPA, HSTROPN #### [facility] [address] [place] [address] Dr. Jozef Marrero Globulin (S) [Mass/Vol] 4.4 g/dL Normal [facility] Comment on above: Performed By: #### A MY, LIVER, BMP, LIPA, HSTROPN #### [facility] [address] [place] [address] Dr. Jozef Marrero Protein [Mass/Vol] 8.4 g/dL Critically high 6.1-8.2 [facility] Comment on above: Performed By: #### A MY, LIVER, BMP, LIPA, HSTROPN #### [facility] [address] [place] [address] Dr. Jozef Marrero Laboratory - Chemistry and C hemistry - challengeOrdered By: Viviane Loco on 12-14-2021 Magnesium [Mass/Vol] 1.8 mg/dL 1.6-2.6 [facility] PROF CHEM 8 (BAS METB)on Anion gap [Moles/Vol] 14.0 mmol/L Normal [facility] Comment on above: Performed By: #### A MY, LIVER, BMP, LIPA, HSTROPN #### [facility] [address] [address] [address] Jozef Marrero Calcium [Mass/Vol] 9.4 mg/dL Normal 8.5-10.1 [facility] Comment on above: Performed By: #### A MY, LIVER, BMP, LIPA, HSTROPN #### [facility] [address] [address] [address] Jozef Marrero Chloride [Moles/Vol] 102 mmol/L Normal 98-107 [facility] Comment on above: Performed By: #### A MY, LIVER, BMP, LIPA, HSTROPN #### [facility] [address] [address] [address] Jozef Marrero CO2 [Moles/Vol] 26.4 mmol/L Normal 22.0-30.0 [facility] Comment on above: Performed By: #### A MY, LIVER, BMP, LIPA, HSTROPN #### [facility] [address] [place] [address] Dr. Jozef Marrero Creatinine [Mass/Vol] 0.69 mg/dL Normal 0.52-1.04 [facility] Comment on above: Performed By: #### A MY, LIVER, BMP, LIPA, HSTROPN #### [facility] [address] [place] [address] Dr. Jozef Marrero EGFR-AF AUSTRIAN >60 Normal >=60 [facility] Comment on above: Performed By: #### A MY, LIVER, BMP, LIPA, HSTROPN #### [facility] [address] [address] [address] Jozef Marrero EGFR-NON AF AUSTRIAN >60 Normal >=60 [facility] Comment on above: Performed By: #### A MY, LIVER, BMP, LIPA, HSTROPN #### [facility] [address] [address] [address] Jozef Marrero Glucose [Mass/Vol] 111 mg/dL Critically high 74-106 [facility] Comment on above: Performed By: #### A MY, LIVER, BMP, LIPA, HSTROPN #### [facility] [address] [address] [address] Jozef Marrero Potassium [Moles/Vol] 3.4 mmol/L Normal 3.4-5.0 [facility] Comment on above: Performed By: #### A MY, LIVER, BMP, LIPA, HSTROPN #### [facility] [address] [address] [address] Jozef Marrero Sodium [Moles/Vol] 139 mmol/L Normal 137-145 [facility] Comment on above: Performed By: #### A MY, LIVER, BMP, LIPA, HSTROPN #### [facility] [address] [address] [address] Jozef Marrero Urea nitrogen [Mass/Vol] 8.0 mg/dL Normal 7.0-18.0 [facility] Comment on above: Performed By: #### A MY, LIVER, BMP, LIPA, HSTROPN #### [facility] [address] [address] [address] Jozef Marrero Urea nitrogen/Creatinine [Mass ratio] 11.6 mg/mg Normal [facility] Comment on above: Performed By: #### A MY, LIVER, BMP, LIPA, HSTROPN #### [facility] [address] [address] [address] Jozef Marrero PROTIMEon 12-14-2021 INR Coag (PPP) [Relative time] 1.05 {INR} Normal [facility] Comment on above: Performed By: #### P TT, PT ####[facility] [address] [address]Dr. Jozef Marrero INR GUIDELINES SEE BELOW Normal [facility] Comment on above: Result Comment: CAMILA RED INR: 2.0 - 3.0 CONDITIONS NOT LISTED BELOW 2.5 - 3.5 FOR PROSTHETIC HEART VALVE REPLACEMENT 2.5 - 3.5 RECURRENT THROMBOSIS Performed By: #### P TT, PT ####[facility] [id number] [address]Dr. Jozef Marrero PT Coag (PPP) [Time] 11.3 s Normal 9.0-11.6 [facility] Comment on above: Performed By: #### P TT, PT ####[facility] [address] [place], [place] [address]Kd. Jozef Marrero PTTon 12-14-2021 aPTT Coag (Bld) [Time] 33.0 s Normal 22.3-36.2 [facility] Comment on above: Performed By: #### P TT, PT ####[facility] [address] [place], [place] [address]Bh. Jozef Marrero TROPONIN, HIGH SENSITIVITYon 12-14-2021 HSTROP 5000.2 pg/mL Critically high 4.0-35.5 [facility] Comment on above: Result Comment: CUT- OFF POINTS HAVE BEEN ESTABLISHED BASED ON THE FOURTH UNIVERSAL DEFINITIONS OF MYOCARDIAL INFARCTION. THE UPPER REFERENCE LIMIT (URL) OF TROPONIN, DEFINED THE 99TH PERCENTILE OF cTnI DISTRIBUTION IN A REFERENCE POPULATION, HAS BEEN CONFIRMED THE DECISION THRESHOLD FOR PA DIAGNOSIS. test repeated critical value verified Performed By: #### A MY, LIVER, BMP, LIPA, HSTROPN ####[facility] [id number] [place], [place] [address]Jg. Jozef Marrero US SINGLE QUAD RT UPPERon [...] MARIANN MARQUES Date: 2021-12-14 14:13 Normal [facility] XR CHEST 1 Von 12-14-2021 XR [...] by: YESIKA URBINA Date: 2021-12-14 13:23 Normal [facility] Vital Signs Date Time Vital Sign Value Performing Clinician Facility 07-13-2023 13:12-0500 Body temperature 96.91 [degF] Saleem Fitch MD Work Phone: [facility] 07-13-2023 13:12-0500 Body weight 70.31 kg Saleem Fitch MD Work Phone: [facility] 07-13-2023 13:12-0500 Diastolic blood pressure 67 mm[Hg] Saleem Fitch MD Work Phone: [facility] 07-13-2023 13:12-0500 Heart rate 76 /min Saleem Fitch MD Work Phone: [facility] 07-13-2023 13:12-0500 Respiratory rate 18 /min Saleem Fitch MD Work Phone: [facility] 07-13-2023 13:12-0500 SaO2% (BldA) [Mass fraction] 98 % Saleem Fitch MD Work Phone: [facility] 07-13-2023 13:12-0500 Systolic blood pressure 103 mm[Hg] Saleem Fitch MD Work Phone: [facility] 07-10-2023 10:42-0500 Body height 162.6 cm Isabel DUEÑAS Work Phone: [facility] 07-10-2023 10:42-0500 Body mass index (BMI) [Ratio] 26.09 kg/m2 Isabel DUEÑAS Work Phone: [facility] 07-10-2023 10:42-0500 Body weight 68.95 kg Isabel Cagle MENTAL HEALTH ASSOCIATE-SUPERVISOR F[employer]ICATION DEPARTMENT Work Phone: [facility] 07-10-2023 10:42-0500 Diastolic blood pressure 68 mm[Hg] Isabel Cagle MENTAL HEALTH ASSOCIATE-SUPERVISOR [employer]ICATION DEPARTMENT Work Phone: [facility] 07-10-2023 10:42-0500 Heart rate 74 /min Isabel Cagle MENTAL HEALTH ASSOCIATE-SUPERVISOR [employer]ICATION DEPARTMENT Work Phone: [facility] 07-10-2023 10:42-0500 Systolic blood pressure 110 mm[Hg] Isabel Cagle MENTAL HEALTH ASSOCIATE-SUPERVISOR [employer]ICATION DEPARTMENT Work Phone: [facility] 05-03-2023 12:19-0400 Body temperature 96.91 [degF] Saleem Fitch MD Work Phone: [facility] 05-03-2023 12:19-0400 Body weight 72.85 kg Saleem Fitch MD Work Phone: [facility] 05-03-2023 12:19-0400 Diastolic blood pressure 59 mm[Hg] Saleem Fitch MD Work Phone: [facility] 05-03-2023 12:19-0400 Heart rate 64 /min Saleem Fitch MD Work Phone: [facility] 05-03-2023 12:19-0400 Respiratory rate 18 /min Saleem Fitch MD Work Phone: [facility] 05-03-2023 12:19-0400 SaO2% (BldA) [Mass fraction] 98 % Saleem Fitch MD Work Phone: [facility] 05-03-2023 12:19-0400 Systolic blood pressure 91 mm[Hg] Saleem Fitch MD Work Phone: [facility] 04-26-2023 12:31-0400 Body temperature 97.11 [degF] Saleem Fitch MD Work Phone: [facility] 04-26-2023 12:31-0400 Body weight 72.94 kg Saleem Fitch MD Work Phone: [facility] 04-26-2023 12:31-0400 Diastolic blood pressure 72 mm[Hg] Saleem Fitch MD Work Phone: [facility] 04-26-2023 12:31-0400 Heart rate 56 /min Saleem Fitch MD Work Phone: [facility] 04-26-2023 12:31-0400 Respiratory rate 16 /min Saleem Fitch MD Work Phone: [facility] 04-26-2023 12:31-0400 SaO2% (BldA) [Mass fraction] 98 % Saleem Fitch MD Work Phone: [facility] 04-26-2023 12:31-0400 Systolic blood pressure 106 mm[Hg] Saleem Fitch MD Work Phone: [facility] 04-19-2023 10:14-0400 Body temperature 96.91 [degF] Saleem Fitch MD Work Phone: [facility] 04-19-2023 10:14-0400 Body weight 72.12 kg Saleem Fitch MD Work Phone: [facility] 04-19-2023 10:14-0400 Diastolic blood pressure 76 mm[Hg] Saleem Fitch MD Work Phone: [facility] 04-19-2023 10:14-0400 Heart rate 64 /min Saleem Fitch MD Work Phone: [facility] 04-19-2023 10:14-0400 Respiratory rate 18 /min Saleem Fitch MD Work Phone: [facility] 04-19-2023 10:14-0400 SaO2% (BldA) [Mass fraction] 98 % Saleem Fitch MD Work Phone: [facility] 04-19-2023 10:14-0400 Systolic blood pressure 112 mm[Hg] Saleem Fitch MD Work Phone: [facility] 04-05-2023 12:23-0400 Body temperature 98.01 [degF] Saleem Fitch MD Work Phone: [facility] 04-05-2023 12:23-0400 Body weight 72.58 kg Saleem Fitch MD Work Phone: [facility] 04-05-2023 12:23-0400 Diastolic blood pressure 76 mm[Hg] Saleem Fitch MD Work Phone: [facility] 04-05-2023 12:23-0400 Heart rate 73 /min Saleem Fitch MD Work Phone: [facility] 04-05-2023 12:23-0400 Respiratory rate 18 /min Saleem Fitch MD Work Phone: [facility] 04-05-2023 12:23-0400 SaO2% (BldA) [Mass fraction] 98 % Saleem Fitch MD Work Phone: [facility] 04-05-2023 12:23-0400 Systolic blood pressure 116 mm[Hg] Saleem Fitch MD Work Phone: [facility] 03-28-2023 14:48-0400 Body temperature 96.91 [degF] Saleem Fitch MD Work Phone: [facility] 03-28-2023 14:48-0400 Diastolic blood pressure 67 mm[Hg] Saleem Fitch MD Work Phone: [facility] 03-28-2023 14:48-0400 Heart rate 74 /min Saleem Fitch MD Work Phone: [facility] 03-28-2023 14:48-0400 Respiratory rate 18 /min Saleem Fitch MD Work Phone: [facility] 03-28-2023 14:48-0400 SaO2% (BldA) [Mass fraction] 96 % Saleem Fitch MD Work Phone: [facility] 03-28-2023 14:48-0400 Systolic blood pressure 100 mm[Hg] Saleem Fitch MD Work Phone: [facility] 12-30-2022 14:50-0400 Diastolic blood pressure 75 mm[Hg] DO Aris Stewart Work Phone: [facility] 12-30-2022 14:50-0400 Heart rate 67 /min DO Aris Stewart Work Phone: [facility] 12-30-2022 14:50-0400 Respiratory rate 14 /min DO Aris Stewart Work Phone: [facility] 12-30-2022 14:50-0400 SaO2% (BldA) [Mass fraction] 99 % DO Aris Stewart Work Phone: [facility] 12-30-2022 14:50-0400 Systolic blood pressure 122 mm[Hg] DO Aris Stewart Work Phone: [facility] 12-30-2022 13:50-0400 Body temperature 97.7 [degF] DO Aris Stewart Work Phone: [facility] 12-30-2022 11:36-0400 Body height 162.56 cm DO Aris Stewart Work Phone: [facility] 12-30-2022 11:36-0400 Body weight 76.65 kg DO Aris Stewart Work Phone: [facility] 12-28-2022 11:26-0400 Body height 162.56 cm Aris P House Work Phone: [facility] [employer] 250 DO Work Phone: 12-28-2022 11:26-0400 Body mass index (BMI) [Ratio] 29.01 kg/m2 Aris P House Work Phone: [facility] [employer] 250 DO Work Phone: 12-28-2022 11:26-0400 Body surface area Derived from formula 1.82 m2 Aris P House Work Phone: [facility] 250 DO Work Phone: 12-28-2022 11:26-0400 Body weight 76.66 kg Aris P House Work Phone: [facility] 250 DO Work Phone: 12-28-2022 11:26-0400 Diastolic blood pressure 68 mm[Hg] Aris P House Work Phone: [facility] 250 DO Work Phone: 12-28-2022 11:26-0400 Heart rate 68 /min Aris P House Work Phone: [facility] 250 DO Work Phone: 12-28-2022 11:26-0400 Systolic blood pressure 132 mm[Hg] Aris P House Work Phone: [facility] 250 DO Work Phone: 05-05-2022 11:41-0400 Body height 162.56 cm Aris P House Work Phone: [facility] 250 DO Work Phone: 05-05-2022 11:41-0400 Body mass index (BMI) [Ratio] 25.92 kg/m2 Aris P House Work Phone: [facility] 250 DO Work Phone: 05-05-2022 11:41-0400 Body surface area Derived from formula 1.74 m2 Aris P House Work Phone: [facility] 250 DO Work Phone: 05-05-2022 11:41-0400 Body weight 68.49 kg Aris P House Work Phone: [facility] 250 DO Work Phone: 05-05-2022 11:41-0400 Diastolic blood pressure 82 mm[Hg] Aris P House Work Phone: [facility] 250 DO Work Phone: 05-05-2022 11:41-0400 Heart rate 80 /min Aris P House Work Phone: [facility] 250 DO Work Phone: 05-05-2022 11:41-0400 Systolic blood pressure 120 mm[Hg] Aris P House Work Phone: [facility] 250 DO Work Phone: 02-22-2022 09:45-0400 0 1 Aris P House Work Phone: [facility] 250 DO Work Phone: Comment on above: [id number] 01-25-2022 15:28-0400 Body height 162.56 cm Aris P House Work Phone: [facility] Work Phone: 01-25-2022 15:28-0400 Body mass index (BMI) [Ratio] 23.86 kg/m2 Aris P House Work Phone: [facility] Work Phone: 01-25-2022 15:28-0400 Body surface area Derived from formula 1.68 m2 Aris P House Work Phone: [facility] Work Phone: 01-25-2022 15:28-0400 Body weight 63.05 kg Aris P House Work Phone: [facility] Work Phone: 01-25-2022 15:28-0400 Diastolic blood pressure 76 mm[Hg] Aris P House Work Phone: [facility] Work Phone: 01-25-2022 15:28-0400 Heart rate 72 /min Aris P House Work Phone: [facility] Work Phone: 01-25-2022 15:28-0400 Systolic blood pressure 122 mm[Hg] Aris Edwards House Work Phone: [facility] Work Phone: 01-25-2022 15:28-0400 12 1 Aris Edwards House Work Phone: [facility] Work Phone: Comment on above: PHQ-9 TS 12-16-2021 16:00-0400 Body temperature 98.5 [degF] MD Viviane Loco Work Phone: [facility] 12-16-2021 16:00-0400 Diastolic blood pressure 90 mm[Hg] MD Viviane Loco Work Phone: [facility] 12-16-2021 16:00-0400 Heart rate 70 /min MD Viviane Loco Work Phone: [facility] 12-16-2021 16:00-0400 SaO2% (BldA) [Mass fraction] 100 % MD Viviane Loco Work Phone: [facility] 12-16-2021 16:00-0400 Systolic blood pressure 131 mm[Hg] MD Viviane Loco Work Phone: [facility] 12-16-2021 08:00-0400 Respiratory rate 18 /min MD Viviane Loco Work Phone: [facility] 12-16-2021 06:00-0400 Body weight 62.5 kg MD Viviane Loco Work Phone: [facility] 12-15-2021 11:00-0400 Body height 162.56 cm MD Viviane Loco Work Phone: [facility] 12-14-2021 16:55-0400 Body mass index (BMI) [Ratio] 25.4 kg/m2 MD Viviane Loco Work Phone: [facility] Encounters Encounter Date Encounter Type Care Provider Facility Start: 11-06-2023 End: 11-06-2023 ambulatory SHAIKH ABBY Not Available Start: 08-03-2023 End: 08-03-2023 ambulatory SHAIKH ABBY Not Available Start: 07-13-2023 End: 07-13-2023 ambulatory ARIS STEWART SR Facility:[facility] Start: 07-13-2023 End: 07-13-2023 Patient encounter procedure Saleem Fitch MD Work Phone: Radiation Oncology Comment on above: Neoplasm of lung (Pr imary Dx) Start: 07-10-2023 End: 07-10-2023 ambulatory [facility]ulatory Start: 07-10-2023 End: 07-10-2023 Office outpatient visit 15 minutes [facility] MENTAL HEALTH ASSOCIATE-SUPERVISOR [employer]RICATION DEPARTMENT Work Phone: [facility] Comment on above: SVT (supraventricula r tachycardia) (Primary Dx); Hypertrophic nonobstructive cardiomyopathy (CMS/HCC); ASHD (arteriosclerotic heart disease); Essential hypertension; Mixed hyperlipidemia; Angina pectoris (CMS/HCC); Non-small cell cancer of left lung (CMS/HCC); BMI 26.0-26.9,adult Start: 06-19-2023 End: 06-20-2023 ambulatory [facility] Start: 06-19-2023 End: 06-19-2023 ambulatory [facility] Start: 06-15-2023 ambulatory [facility] Start: 06-13-2023 End: 06-14-2023 ambulatory [facility] Start: 05-11-2023 End: 05-11-2023 ambulatory ARIS STEWART SR Facility:[facility] Start: 05-11-2023 Patient encounter procedure Saleem Fitch MD Work Phone: [facility] Start: 05-11-2023 Radiation Oncology Note Saleem waldrop MD Work Phone: Radiation Oncology Comment on above: Completion Note Start: 05-10-2023 End: 05-10-2023 ambulatory ARIS STEWART SR Facility:[facility] Start: 05-09-2023 End: 05-09-2023 ambulatory ARIS STEWART SR Facility:[facility] Start: 05-08-2023 End: 05-08-2023 ambulatory ARIS STEWART SR Facility:[facility] Start: 05-05-2023 End: 05-05-2023 ambulatory ARIS STEWART SR Facility:[facility] Start: 05-04-2023 End: 05-04-2023 ambulatory ARIS STEWART SR Facility:[facility] Start: 05-03-2023 End: 05-03-2023 ambulatory ARIS STEWART SR Facility:[facility] Start: 05-03-2023 End: 05-03-2023 Patient encounter procedure Saleem Fitch MD Work Phone: Radiation Oncology Comment on above: Neoplasm of lung (Pr imary Dx) Start: 05-02-2023 End: 05-02-2023 ambulatory ARIS STEWART SR Facility:[facility] Start: 04-28-2023 End: 04-28-2023 ambulatory ARIS STEWART SR Facility:[facility] Start: 04-27-2023 End: 04-27-2023 ambulatory ARIS STEWART SR Facility:[facility] Start: 04-26-2023 End: 04-26-2023 ambulatory ARIS STEWART SR Facility:[facility] Start: 04-26-[address] Brett Gongora Facility: Start: 04-26-2023 End: 04-26-2023 Patient encounter procedure Saleem Fitch MD Work Phone: Radiation Oncology Comment on above: Smoking greater than 40 pack years (Primary Dx); Neoplasm of lung Start: 04-25-2023 End: 04-25-2023 ambulatory ARIS STEWART SR Facility:[facility] Start: 04-21-2023 End: 04-21-2023 ambulatory ARIS STEWART SR Facility:[facility] Start: 04-19-2023 End: 04-19-2023 ambulatory ARIS STEWART SR Facility:[facility] Start: 04-19-2023 End: 04-19-2023 Patient encounter procedure Saleem Fitch MD Work Phone: Radiation Oncology Comment on above: Neoplasm of lung (Pr imary Dx) Start: 04-18-2023 End: 04-18-2023 ambulatory ARIS STEWART SR Facility:[facility] Start: 04-18-2023 Patient encounter procedure Bri Bernard LMT Hematology/Oncology Comment on above: Muscle soreness (Kelli cuate Dx) Start: 04-17-2023 End: 04-17-2023 ambulatory ARIS STEWART SR Facility:[facility] Start: 04-14-2023 End: 04-14-2023 ambulatory ARIS STEWART SR Facility:[facility] Start: 04-13-2023 End: 04-13-2023 ambulatory ARIS STEWART SR Facility:[facility] Start: 04-12-2023 End: 04-12-2023 ambulatory ARIS STEWART SR Facility:[facility] Start: 04-11-2023 End: 04-11-2023 ambulatory ARIS STEWART SR Facility:[facility] Start: 04-11-2023 Telephone encounter Saleem Fitch MD Work Phone: Radiation Oncology Comment on above: Missed Appointment Start: 04-10-2023 End: 04-10-2023 ambulatory ARIS STEWART SR Facility:[facility] Start: 04-07-2023 End: 04-07-2023 ambulatory ARIS STEWART SR Facility:[facility] Start: 04-06-2023 End: 04-06-2023 ambulatory ARIS STEWART SR Facility:[facility] Start: 04-05-2023 End: 04-05-2023 ambulatory ARIS STEWART SR Facility:[facility] Start: 04-05-2023 End: 04-05-2023 Patient encounter procedure Saleem Fitch MD Work Phone: Radiation Oncology Comment on above: Neoplasm of lung (Pr imary Dx) Start: 04-04-2023 End: 04-04-2023 ambulatory ARIS CHAU HOUSE SR Facility:[facility] Start: 04-03-2023 End: 04-03-2023 ambulatory ARIS STEWART SR Facility:[facility] Start: 03-31-2023 End: 03-31-2023 ambulatory ARIS ISAC STEWART SR Facility:[facility] Start: 03-30-2023 End: 03-30-2023 ambulatory [facility] SR Facility:[facility] Start: 03-29-2023 End: 03-29-2023 ambulatory [facility] SR Facility:[facility] Start: 03-28-2023 End: 03-28-2023 Nursing evaluation [...] above: Appointment Start: 03-17-2023 End: 03-20-2023 ambulatory [facility] Facility[facility] [facility] Start: 03-17-2023 End: 03-20-2023 Patient encounter procedure Saleem Fitch MD Work Phone: [employer] Comment on above: Neoplasm of lung (Pr imary Dx) Start: 03-17-2023 Radiation Oncology Note Saleem waldrop MD Work Phone: Radiation Oncology Comment on above: Simulation Note Treatment Planning Start: 03-15-2023 End: 03-15-2023 ambulatory [facility] SR Facility:[facility] Start: 03-14-2023 Telephone encounter Stan tracey MD, PhD Work Phone: Thor[facility] Comment on above: Received Outside Med ical Records Start: 03-10-2023 End: 03-11-2023 ambulatory [facility] Start: 03-10-2023 End: 03-10-2023 ambulatory [facility] Start: 03-08-2023 Telephone encounter Saleem Fitch MD Work Phone: Radiation Oncology Comment on above: Patient Update; Card iac Clearance External Referrals/r esources; Consult Start: 03-08-2023 End: 03-08-2023 ambulatory ARCHANA JENNIFER Facility[facility] Start: 03-03-2023 End: 03-04-2023 ambulatory MARIELLE [facility] Start: 03-03-2023 End: 03-03-2023 ambulatory [facility] Start: 02-22-2023 End: 02-23-2023 ambulatory [facility] Start: 12-30-[address] Brett Gongora Facility:[id number] Start: 12-30-2022 [facility], Provider: Brett Gongora, Status: Pen, Time: 12:00 PM Aris P House Work Phone: [facility] Heart-[address] DO Work Phone: Start: 12-30-2022 End: 12-30-2022 ambulatory Aris Stewart Facility:[facility] Start: 12-30-2022 End: 12-30-2022 Admission to same day surgery center DO Aris House Work Phone: [facility]-[employer] Work Phone: Start: 12-30-2022 End: 12-30-2022 ambulatory DO Aris House Work Phone: [facility] Work Phone: Start: 12-28-2022 Office outpatient vi sit 40 minutes Aris P House Work Phone: [facility]-[place] [address] DO Work Phone: Start: 12-28-[address] Brett Gongora Facility: Start: 11-10-[address] Brett Gongora Facility: Start: 08-11-2022 End: 08-12-[address] ARIS STEWART Facility:H1 Start: 06-23-2022 End: 06-23-2022 ambulatory LUCIO WEST Facility:H1 Start: 05-05-[address] Brett Gongora Facility: Start: 05-05-2022 Office outpatient vi sit 25 minutes Aris P Pat Work Phone: [facility] [address] DO Work Phone: Start: 03-01-2022 Chart Update Aris P Hous e Work Phone: [facility] [address] DO Work Phone: Start: 02-22-2022 Patient encounter procedure Aris P Pat Work Phone: [facility] [address] DO Work Phone: Start: 02-21-2022 End: 02-22-[address] ARIS STEWART Facility:H1 Start: 02-18-2022 End: 02-18-2022 ambulatory ALLY SANTORO Facility:H1 Start: 02-17-2022 End: 02-17-2022 ambulatory LUCIO WEST Facility:H1 Start: 01-28-2022 End: 04-07-[address] BRETT GONGORA Facility:H1 Start: 01-26-2022 End: 01-26-[address] BRETT GONGORA Facility:H1 Start: 01-25-2022 Office outpatient vi sit 40 minutes Aris P Pat Work Phone: [facility] Work Phone: Start: 12-15-2021 End: 12-16-2021 Evaluation and management of inpatient MD Viivane Loco Work Phone: [facility] Start: 12-14-2021 End: 12-14-2021 ambulatory ALLY SANTORO Facility:H1 Procedures Date Procedure Procedure Detail Performing Clinician Start: 07-11-2023 Ecg routine ecg w/least 12 lds w/i&r Isabel Cagle MENTAL HEALTH ASSOCIATE-SUPERVISOR FABRICATION DEPARTMENT Work Phone: Start: 12-30-2022 CL Iliac/Fem w/LHC DO Aris Stewart Work Phone: Start: 12-30-2022 CL LHC & COR Angio DO Aris Stewart Work Phone: Start: 02-22-2022 Echocardiography Aris P Pat Work Phone: Start: 12-15-2021 CL LHC & COR Angio MD Viviane Loco Work Phone: Start: 12-15-2021 CL PTCA Ea Add CX MD Viviane oLco Work Phone: Start: 12-15-2021 CL Stent 1st Vessel CX SAMI MD Viviane salamanca Work Phone: Start: 12-15-2021 CL Stent 1st Vessel RCA SAMI MD Viviane lira Work Phone: Start: 12-15-2021 MD Viviane Loco Work Phone: Appendectomy Aris P Pat Work Phone: Hernia repair Aris Edwards Hous e Work Phone: History of placement of stent for coronary artery disease History of heart artery stent DO Aris Stewart Work Phone: Hysterectomy Aris P Pat Work Phone: Operation on breast Aris P Pat Work Phone: Operation on colon Aris P Pat Work Phone: Total colonoscopy Aris P Pat Work Phone: Plan of Treatment Date Care Activity Detail Author Start: 06-19-2024 Diabetes mellitus screening Diabetes Screening [facility] Start: 01-09-2024 End: 01-09-2024 Patient encounter procedure 01/09/2024 9:30 AM EDT Office Visit [facility] [address] [place] [address] Brett Gongora DO [address] [place] [address] [facility] Start: 07-10-2023 End: 07-10-2024 Basic metabolic 2000 panel - Serum or Plasma Basic Metabolic Panel Lab Routine SVT (supraventricular tachycardia) Hypertrophic nonobstructive cardiomyopathy (CMS/HCC) Expected: 07/10/2023 (Approximate), Expires: 07/10/2024 [facility] Service Area Work Phone: Comment on above: Expected: 07/10/2023 (Approximate), Expires: 07/10/2024 Start: 04-28-2023 Influenza vaccination C [facility] Start: 02-08-2023 FUV, Provider: Brett Gongora, Status: Pen, Time: 10:00 AM FUV, Provider: Brett Gongora, Status: Pen, Time: 10:00 AM [facility] [address] DO Work Phone: Start: 12-30-2022 End: 12-30-2022 [facility] Start: 11-10-2022 FUV, Provider: Brett Gongora, Status: Pen, Time: 10:00 AM FUV, Provider: Brett Gongora, Status: Pen, Time: 10:00 AM [facility] [address] DO Work Phone: Start: 08-28-2022 DEPRESSION ASSESSMENT DEPRESSION ASS [facility] Start: 05-05-2022 FUV, Provider: Brett Gongora, Status: Pen, Time: 11:20 AM FUV, Provider: Brett Gongora, Status: Pen, Time: 11:20 AM [facility] Work Phone: Start: 02-22-2022 HOLTER 48, Provider: XENA BARRETT GAS MAKER HELPER 1,[id number], Status: Pen, Time: 10:30 AM HOLTER 48, Provider: XENA BARRETT GAS MAKER HELPER 1,[id number], Status: Pen, Time: 10:30 AM [facility] Work Phone: Start: 02-22-2022 ECHO, Provider: SANDRA HHVI ULTRASOUND 01,[id number], Status: Pen, Time: 9:45 AM ECHO, Provider: SANDRA HHVI ULTRASOUND 01,[id number], Status: Pen, Time: 9:45 AM [facility] Work Phone: Start: 2017 SHINGRIX VACCINE (1 of 2) SHINGRIX VACCINE (1 of 2) [facility] Start: 2017 Zoster Vaccines (1 o f 2) Zoster Vaccines (1 of 2) [facility] Start: 2012 COLOGUARD (FIT-DNA) COLOGUARD (FIT-D NA) [facility] Start: 2012 Colonoscopy COLONOSCOPY [facility] Start: 2012 COLORECTAL CANCER SCREENING COLORECTAL CANCER SCREENING [facility] Start: [address] COLONOGRAPHY [facility] Start: 2012 [facility]ET[facility]EN [facility] Start: 2012 Diabetes Screening Diabetes Screenin g [facility] Start: 2012 FECAL OCCULT BLOOD FECAL OCCULT BLOO D [facility] Start: 2012 Lipid 1996 panel - Serum or Plasma Lipid Screening [facility] Start: 2012 LIPID SCREEN LIPID SCREEN [facility] Start: 2012 SIGMOIDOSCOPY SIGMOIDOSCOPY [facility] Start: 2007 Mammography [facility] Start: 2007 Screening for malign ant neoplasm of breast Mammogram [facility] Start: 1997 HPV TESTING HPV TESTING [facility] Start: 1989 DTaP/Tdap/Td Vaccine s (1 - Tdap) DTaP/Tdap/Td Vaccines (1 - Tdap) [facility] Start: 1988 PAP TESTING PAP TESTING [facility] Start: 1988 Screening for malign ant neoplasm of cervix [facility] Start: 1986 Urine microalbumin profile [facility] Start: 1985 HEPATITIS C SCREENING HEPATITIS C [facility] Start: 1985 Hepatitis C screening Hepatitis C [facility] Start: 1985 HIV SCREENING HIV SCREENING [facility] Start: 1973 PNEUMOCOCCAL (1 - PCV) PNEUMOCOCCAL (1 - PCV) [facility] Start: 1973 Pneumococcal vaccination Pneumococcal Vaccine (1 - PCV) [facility] Start: 1973 Pneumococcal Vaccine : Pediatrics (0 to 5 Years) and At-Risk Patients (6 to 64 Years) (1 - PCV) Pneumococcal Vaccine: Pediatrics (0 to 5 Years) and At-Risk Patients (6 to 64 Years) (1 - PCV) [facility] Start: 1968 MMR Vaccines (1 of 1 - Standard series) MMR Vaccines (1 of 1 - Standard series) [facility] Start: 04-09-1968 COVID-19 VACCINE (#1) COVID-19 VACCI NE (#1) [facility] Start: 1967 HEPATITIS B (1 of 3 - 3-dose series) HEPATITIS B (1 of 3 - 3-dose series) [facility] Start: 1967 Hepatitis B Vaccine (1 of 3 - 3-dose series) Hepatitis B Vaccine (1 of 3 - 3-dose series) [facility] Start: 1967 Hepatitis B Vaccines (1 of 3 - 3-dose series) Hepatitis B Vaccines (1 of 3 - 3-dose series) [facility] Start: 1967 HIV screening HIV Screening [facility] Start: 1967 Lipid panel Lipid Panel [facility] Start: 1967 Screening for malign ant neoplasm of colon [facility] Start: 1967 Yearly Adult Physical Yearly Adult P hysical [facility] CT SIM PLANNING RADIATION ONCOLOGY CT SIM PLANNING RADIATION ONCOLOGY Radiology Routine Neoplasm of lung Ordered: 03/17/2023 [facility] Work Phone: Comment on above: Ordered: 03/17/2023 ECG 12 Lead ECG 12 Lead ECG Routine SVT (supraventricular tachycardia) 07/11/2023 1:33 PM EST [facility] Work Phone: End: 04-10-2024 Mri brain brain stem w/o w/contrast material MRI BRAIN WO/W IVCON Radiology Routine Secondary malignant neoplasm of brain (HCC) Malignant neoplasm of left lung, unspecified part of lung (HCC) 1 Occurrences starting 03/10/2023 until 04/10/2024 [facility] Work Phone: Comment on above: 1 Occurrences starti ng 03/10/2023 until 04/10/2024 Patient Education [facility] Work Phone: Patient referral [facility] Payers Date Payer Category Payer Self-pay [id number] 2022 Medicaid [facility] MEDICAID [facility] [employer]AN MEDICAID OF [place] [id number] 2022-Present [phone] [address] [place] [address] Medicaid [id number] 2022 Private Health Insurance [facility] [id number] 2022-Present [address] [place] [address] [id number] 2022 Private Health Insurance [id number] 1967 Unknown [id number] 2.16.840.1.808090.3.579.2. 593 1967 Unknown [id number] 2.16.840.1.701252.3.579.2. 593 1967 Unknown [id number] 2.16.840.1.810789.3.579.2. 593 1967 Unknown [id number] 2.16.840.1.676838.3.579.2. 593 1967 Unknown [id number] 2.16.840.1.142223.3.579.2. 593 1967 Unknown [id number] 2.16.840.1.080499.3.579.2. 593 1967 Unknown [id number] 2.16.840.1.312048.3.579.2. 593 1967 Unknown [id number] 2.16.840.1.537423.3.579.2. 593 1967 Unknown [id number] 2.16.840.1.457622.3.579.2. 356 1967 Unknown [id number] 2.16.840.1.796173.3.579.2. 356 1967 Unknown [id number] 2.16.840.1.184132.3.579.2. 356 1967 Unknown [id number] 2.16.840.1.943462.3.579.2. 356 1967 Unknown [id number] 2.16.840.1.428055.3.579.2. 356 1967 Unknown [id number] 2.16.840.1.000452.3.579.2. 1244 1967 Unknown [id number] 2.16.840.1.772823.3.579.2. 1259 1967 Unknown [id number] 2.16.840.1.593499.3.579.2. 1259 1959 Private Health Insurance [id number] Unknown [id number] Unknown Unknown [id number] [id number]. 531 Social History Date Type Detail Facility Start: 12-15-2021 End: 12-30-2022 Tobacco smoking status NCIS Smoker (finding) [facility] Start: 1965 Sex Assigned At Female F [facility] Start: 03-08-2023 End: 07-13-2023 Current smoker Current smoker [facility] Comment on above: 1/2 ppd; 3-4 daily; Start: 03-08-2023 Tobacco smoking stat us NCIS Smokes tobacco daily [facility] End: 08-28-2022 History of tobacco use Cigarette Smoker [facility] Start: 03-08-2023 End: 07-10-2023 Tobacco use and exposure Smokeless tobacco non-user [facility] Start: 03-08-2023 End: 05-03-2023 Alcohol intake Ex-drinker (finding) [facility] Start: 03-08-2023 End: 07-13-2023 Tobacco use panel [facility] Start: 1965 Sex Assigned At Not on file C [facility] National Score (1-100), lower number is lower risk 60 [facility] Start: 07-10-2023 Tobacco smoking stat us NHIS Ex-smoker [facility] Start: 07-10-2023 Alcohol intake Lifetime non-d chantal (finding) [facility] Work Phone: Start: 06-30-2023 End: 07-10-2023 Exposure to SARS-CoV-2 (event) Not sure [facility] Medical Equipment Procedure Code Equipment Code Equipment Origin al Text Equipment Identifier Dates Drug-eluting coronary artery stent, tqz-yxoxrqigmowsl-qm lymer-coated ()[id number] FDA Start: 12-15-2021 Drug-eluting coronary artery stent, mmw-wuofmqmnfsiwa-jd lymer-coated ()[id number] FDA Start: 12-15-2021 Drug-eluting coronary artery stent, dya-lspawxqpqwsfk-gy lymer-coated ()[id number] FDA Start: 12-15-2021 Goals Date Patient Goal Desired Activity /State Functional Status Date Assessment Result Facility 01-25-2022 PHQ-9 [id number] Moderate (10-14) [facility] Work Phone: 12-16-2021 Functional status Patient at Baseline [facility] Work Phone: Mental Status Date Assessment Result Facility 12-16-2021 Cognitive function Cognitive Sta tus Patient at Baseline [facility] Work Phone: Clinical Notes 12-14-2021 to 09-25-2023 Saleem Fitch MD - 07/13/2023 10:35 PM ESTAssessment & Plan Note - Isabel Cagle MENTAL HEALTH ASSOCIATE-SUPERVISOR FABRICATION DEPARTMENT - 07/11/2023 1:26 PM ESTAssessment & Plan Note - Isabel Cagle, MENTAL HEALTH ASSOCIATE- SUPERVISOR FABRICATION DEPARTMENT - 07/11/2023 1:26 PM EST Note Date & Type Note Facility 09-25-2023 Note HNO ID: [id number] Author: MICHAEL AGUILAR LSW Service: ? Author Type: Ui Software Engineer Type: Progress Notes Filed: 09/25/2023 16:11 Note [...] will follow up as appropriate. ELOY Whiteside [facility] 07-14-2023 Note HNO ID: [id number] Author: Saleem Fitch MD Service: ? Author [...] in coordination with Dr. Rodriguez at the [facility] on 05/11/2023 (6,000 cGy delivered in 30 fractions with concurrent carboplatin/paclitaxel). INTERVAL HISTORY/ROS: Ms. Faria returns to clinic today for routine follow-up approximately two months after the completion of her radiation treatments. In the interim, she was hospitalized shortly after completion of treatment for pneumonia and arrhythmia (tachycardia). Since discharge she has been on supplemental oxygen atzdfl-qej-enjjl via nasal cannula at 2 L/min. She feels that her cough is improved and denies any hemoptysis but still has some tightness in the chest with deep breaths. She denies any esophagitis that she is swallowing well. She is seeing a rehabilitation caseworker and is currently on a nebulizer 3 [...] in coordination with Dr. Rodriguez at the [facility] on 05/11/2023 (6,000 cGy delivered in 30 fractions with concurrent carboplatin/paclitaxel). Ms. Faria continues to recover from the acute toxicities of her recent course of chemoradiation which was complicated by recent hospitalization for pneumonia. She is showing slow improvement but continues to require supplemental oxygen and will follow with her rehabilitation caseworker plans for PFTs as well as pulmonary [...] 4 months. Th (more content not included)... [facility] 07-13-2023 History of Present illness Narrative [...] in coordination with Dr. Rodriguez at the [facility] on 05/11/2023 (6,000 cGy delivered in 30 fractions with concurrent carboplatin/paclitaxel). INTERVAL HISTORY/ROS: Ms. Faria returns to clinic today for routine follow-up approximately two months after the completion of her radiation treatments. In the interim, she was hospitalized shortly after completion of treatment for pneumonia and arrhythmia (tachycardia). Since discharge she has been on supplemental oxygen lqmznk-cma-trzgd via nasal cannula at 2 L/min. She feels that her cough is improved and denies any hemoptysis but still has some tightness in the chest with deep breaths. She denies any esophagitis that she is swallowing well. She is seeing a rehabilitation caseworker and is currently on a nebulizer 3 [...] in coordination with Dr. Rodriguez at the [facility] on 05/11/2023 (6,000 cGy delivered in 30 fractions with concurrent carboplatin/paclitaxel). Ms. Faria continues to recover from the acute toxicities of her recent course of chemoradiation which was complicated by recent hospitalization for pneumonia. She is showing slow improvement but continues to require supplemental oxygen and will follow with her rehabilitation caseworker plans for PFTs as well as pulmonary [...] of said technology/software. documented in this encounter [facility] 07-11-2023 Evaluation + Plan note Associated Problem(s): Non-small cell lung cancer (CMS/HCC) Reports diagnosed February 22, 2023 Treated with radiation and chemotherapy Pulmonary stent has been removed PET scan pending [facility] Work Phone: 07-11-2023 Evaluation + Plan note Associated Problem(s): BMI 26.0-26.9,adult Reviewed the merits of healthy lifestyle choices on overall cardiovascular health. [facility] Work Phone: 07-11-2023 Miscellaneous Notes Associated [...] without recurrent symptoms documented in this encounter [facility] Work Phone: 07-11-2023 Evaluation + Plan note Associated Problem(s): Mixed hyperlipidemia High intensity statin [facility] Work Phone: 07-11-2023 Evaluation + Plan note Associated Problem(s): Essential hypertension Optimal in office [facility] Work Phone: 07-11-2023 Evaluation + Plan note Associated Problem(s): SVT (supraventricular tachycardia) June 2023 ER presentation due to SVT 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 Potassium 2.9 at that time PE ruled out Dose of metoprolol increased and Cardizem added [facility] Work Phone: 07-11-2023 Evaluation + Plan note Associated Problem(s): Angina pectoris (CMS/HCC) Resolved [facility] Work Phone: 07-11-2023 Evaluation + Plan note Associated Problem(s): Hypertrophic nonobstructive cardiomyopathy (CMS/HCC) January 2022 TTE Hyperdynamic LVEF 75 to 80% Severe symmetric LVH with cavitary obliteration during systole with no significant gradient. December 2022 cardiac cath LVEF 80% [facility] Work Phone: 07-11-2023 Evaluation + Plan note Associated Problem(s): ASHD (arteriosclerotic heart disease) November 2021 PCI mCX & dRCA December 2022 cardiac cath mCX patent stent dRCA patent stent LAD normal Current daily activity less than 4 METS without recurrent symptoms [facility] Work Phone: 07-10-2023 History of Present illness [...] new symptoms arise. Dr. Rolan Cagle MSN, MENTAL HEALTH ASSOCIATE-SUPERVISOR FABRICATION DEPARTMENT, [facility] Please excuse any errors in grammar or translation related to this dictation. Voice recognition software was utilized to prepare this document. documented in this encounter [facility] Work Phone: 07-10-2023 Instructions LEANA Ramos [...] office if new symptoms arise. Dr. Rolan florez documented in this encounter [facility] Work Phone: 06-19-2023 Note Cardiology consulted for tachycardia EKG and telemetry show Atrial tachycardia Will start Cardizem CD 120 mg daily Close outpatient follow recommended I asked her to see PCP or cardiology within 1 week. Maritza Pardo MD [place] Cardiology [facility] 06-19-2023 Note Patient: Jeanmarie chavarria Procedure Summary Date: 06/19/23 [facility] Operating Room Anesthesia Start: 1208 Anesthesia [...] able to get In touch with her mask inspector () who stated that any arrythmias such [...] per anesthesia protocol. No notable events documented. [facility] 06-19-2023 Note Airway Date/Time: 06/19/2023 12:15 PM Urgency: elective Airway not difficult General Information and Staff Patient location during procedure: OR Anesthesiologist: Elisabeth Kendall MD Resident/SOCIAL AND HUMAN SERVICES ASSISTANT/CAA: KYLE Wan Performed: resident/SOCIAL AND HUMAN SERVICES ASSISTANT/CAA Indications and Patient Condition Indications for airway management: anesthesia Spontaneous ventilation: present Sedation level: deep Preoxygenated: yes Patient position: sniffing Mask difficulty assessment: 0 - not attempted Final Airway Details Final airway type: supraglottic airway Successful airway: i-gel Size 4 Number of attempts at approach: 1 Ventilation between attempts: none Number of other approaches attempted: 1 [facility] 06-19-2023 Note Patient: Jeanmarie chavarria Procedure Summary Date: 06/19/23 [facility] Main Operating Room Anesthesia Start: 1208 Anesthesia [...] VSS, SV well, arousable, report to RN [facility] 06-19-2023 Note Patient: Jeanmarie chavarria Procedure Information Date/Time: 06/19/23 1200 Scheduled providers: Betito Foss MD; Elisabeth Kendall MD; KYLE Wan Procedure: BRONCHOSCOPY [facility] Main Operating Room Relevant Problems No relevant [...] risks discussed with patient. Plan discussed with KYLE. Additional Equipment Requests [facility] 06-15-2023 Note Attestation signed by Betito [...] Age: 57 y.o. : 1965 Account No.: [id number] Chief complaint: Stent reversion HPI Jeanmarie Faria [...] was initiated by the patient and conducted pwz-arer-xv-face with use of audio-only real time telephone communication between patient and provider for a virtual visit. Verbal consent to provide and bill for this service was obtained on 06/15/2023. No signature was obtained due to the COVID-19 pandemic. Julio Taylor Pulmonary and critical care fellow [facility]. 06/15/23 11:39 AM [facility] 05-11-2023 Note HNO ID: [id number] Author: Saleem Fitch MD Service: ? Author Type: Physician Type: Progress Notes Filed: 05/19/2023 12:32 AM Note Text: [facility] Radiation Oncology Department RADIATION ONCOLOGY - [...] in coordination with Dr. Rodriguez at the [facility]. AREA TREATED: Chest/Mediastinum/Left Neck DELIVERED DOSE: [...] Signed cc: Archana Rodriguez MD [address] [place] [facility] [place] [place] [address] [address] Betito Foss MD [address] [facility] [place] [address] [address] [facility] DO [address] [place] [facility] [place] [address] [address] [facility] 05-11-2023 Note HNO ID: [id number] Author: Saleem Fitch MD Service: ? Author [...] again regarding smoking cessation. Saleem Fitch MD [facility] 05-11-2023 History of Present illness Narrative [facility] Radiation Oncology Department RADIATION ONCOLOGY - [...] in coordination with Dr. Rodriguez at the [facility]. AREA TREATED: Chest/Mediastinum/Left Neck DELIVERED DOSE: [...] cessation. Staff Physician Saleem Fitch M.D. / SLAVA 34:39 AM Electronically Signed cc: Archana Rodriguez MD [address] [place] [facility] [place] [place] [address] Via Betito Foss MD [address] [place] [address] Via [facility], DO [address] [place] [facility] [place] [address] Via documented in this encounter [facility] 05-04-2023 Note HNO ID: [id number] Author: Saleem Fitch MD Service: ? Author [...] radiation treatment as planned. Saleem Fitch MD [facility] 05-03-2023 History of Present illness Narrative [...] Saleem Fitch MD documented in this encounter [facility] 04-27-2023 Note HNO ID: [id number] Author: Saleem Fitch MD Service: ? Author [...] again regarding smoking cessation. Saleem Fitch MD [facility] 04-26-2023 History of Present illness Narrative [...] Saleem Fitch MD documented in this encounter [facility] 04-26-2023 Nurse Note Status: Post-menopausal. documented in this encounter [facility] 04-19-2023 Note HNO ID: [id number] Author: Saleem Fitch MD Service: ? Author [...] tapering dose of steroids. Saleem Fitch MD [facility] 04-19-2023 History of Present illness Narrative [...] Saleem Fitch MD documented in this encounter [facility] 04-18-2023 Note HNO ID: [id number] Author: Bri Bernard LMT Service: ? Author [...] Date: April 18, 2023 Time: 2:18 PM [facility] 04-18-2023 History of Present illness Narrative [...] Time: 2:18 PM documented in this encounter [facility] 04-12-2023 Note HNO ID: [id number] Author: Saleem Fitch MD Service: ? Author [...] will continue to monitor. Saleem Fitch MD [facility] 04-11-2023 Miscellaneous Notes LM for pt to CB regarding missed XRT appt. Nilsa Deal RN documented in this encounter [facility] 04-05-2023 Note HNO ID: [id number] Author: Saleem Fitch MD Service: ? Author [...] to help with expectoration. Saleem Fitch MD [facility] 04-05-2023 History of Present illness Narrative [...] Saleem Fitch MD documented in this encounter [facility] 04-05-2023 Nurse Note Status: Post-menopausal. documented in this encounter [facility] 03-28-2023 Note HNO ID: [id number] Author: Saleem Fitch MD Service: ? Author [...] the course of treatment. Saleem Fitch MD [facility] 03-28-2023 History of Present illness Narrative [...] Saleem Fitch MD documented in this encounter [facility] 03-28-2023 Nurse Note Aromatherapy to promote a healing environment. TYPE: container SCENT: citrus blend Aromatherapy education materials were provided and reviewed with the patient. Toney Bailon LPN documented in this encounter [facility] 03-28-2023 Nurse Note Radiation Therapy - Patient Education Note PATIENT NAME: Jeanmarie Faria PATIENT March 28, 2023 [facility] FACILITY/LOCATION: [facility] READINESS TO LEARN Cognitive Ability: Alert [...] need for social work, van service, and log buncher. Patient is scheduled to see log buncher at [facility]. Was approved? No Signed by: Toney Bailon LPN documented in this encounter [facility] 03-28-2023 Nurse Note Status: Patient states there is no possibility she is at this time. documented in this encounter [facility] 03-28-2023 Note Education (RUY) JEANMARIE FARIA ([id number]) 1965 F Date Time Provider Department 03/28/23 TONEY BAILON Reason for Visit: Patient Education [91] Visit Notes: >> Toney Bailon LPN Tue Mar 28, 2023 3:21 PM Status: Signed Radiation Therapy - Patient Education Note PATIENT NAME: Jeanmarie Faria PATIENT March 28, 2023 [facility] FACILITY/LOCATION: [facility] READINESS TO LEARN Cognitive Ability: Alert [...] need for social work, van service, and log buncher. Patient is scheduled to see log buncher at [facility]. Was approved? No Signed by: [...] Encounter Status:Closed by TONEY BAILON on 03/28/23 [facility] 03-23-2023 Miscellaneous Notes I notified Jeanmarie of her upcoming new start appointment. She is scheduled for 03/28/23 at 2:30. Patient is in agreement with this appt. Toney Bailon LPN documented in this encounter [facility] 03-22-2023 Note HNO ID: [id number] Author: Saleem Fitch MD Service: ? Author Type: Physician Type: Progress Notes Filed: 03/21/2023 11:27 PM Note Text: Radiation Oncology - New Patient/Consult Note PATIENT NAME: Jeanmarie Faria PATIENT REQUESTING PHYSICIAN: Archana Rodriguez MD DIAGNOSIS: Locally advanced non-small lung cancer (staging pending) PATIENT IDENTIFICATION: This patient was seen in the Department of Radiation Oncology at the [facility] with Saleem Fitch MD. Final recommendations will be communicated back to the requesting physician by way of the shared medical record, or letter to requesting physician via US mail. HISTORY OF PRESENT ILLNESS: Ms. Faria is a 57-year-old woman in [place], [place] who was found to have a [...] met with Dr. Rodriguez medical oncology at [facility] and referred to rehabilitation caseworker Dr. Foss as an outpatient. She underwent [...] the past year and having had an PA approximately a year ago. She does note [...] Ms. Faria is and lives in the [place], [place] area. 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 She notes an approximate 02-cxnf-gidj history of smoking and has reduced down [...] PATHOLOGIC DATA: 03/03/2023 (more content not included)... [facility] 03-18-2023 Note HNO ID: [id number] Author: Saleem Fitch MD Service: ? Author [...] which included preparing to see the patient, hqhw-br-nygm patient care, counseling and educating the patient/family/caregiver, and communicating results to the patient/family/caregiver. This document has been created with the use of voice recognition technology. It may contain inaccuracies, misspellings, inaccurate syntax or inappropriate word context that are a result of the inadequacies/shortcomings of said technology/software. [facility] 03-17-2023 History of Present illness Narrative [...] which included preparing to see the patient, ufot-xg-tctr patient care, counseling and educating the patient/family/caregiver, and communicating results to the patient/family/caregiver. This document has been created with the use of voice recognition technology. It may contain inaccuracies, misspellings, inaccurate syntax or inappropriate word context that are a result of the inadequacies/shortcomings of said technology/software. documented in this encounter [facility] 03-17-2023 Note HNO ID: [id number] Author: Saleem Fitch MD Service: ? Author Type: Physician Type: Progress Notes Filed: 03/25/2023 12:33 AM Note Text: JEANMARIE FARIA [id number] 03/17/2023 [facility] Department of Radiation Oncology Treatment Planning [...] Electronically Signed Saleem Fitch M.D. 35:10 PM [facility] 03-17-2023 Note HNO ID: [id number] Author: Saleem Fitch MD Service: ? Author Type: Physician Type: Progress Notes Filed: 06/06/2023 9:45 AM Note Text: JEANMARIE FARIA [id number] 03/17/2023 [facility] Radiation Oncology Department SIMULATION NOTE DATE OF SIMULATION: 03/17/2023 THERAPIST: Gayathri Valdez MACHINE: [employer] mCT DIAGNOSIS: C34.82 Malignant neoplasm of overlapping sites of left bronchus and lung AREA: LUNG CONTRAST: IV Oral Consent in Epic: Yes PATIENT POSITION: Supine. FIXATION DEVICE: In order to achieve accurate and reproducible treatments, the patient is immobilized with THE ORFIT AIO SYSTEM. 50ML OF [id number] WAS INJECTED VIA THE RIGHT WRIST SIPS OF 20ML OF [id number] DILUTED IN 450 ML OF WATER WAS [...] Saleem Fitch M.D. / GHANSHYAM 37:18 PM [facility] 03-17-2023 Note HNO ID: [id number] Author: Saleem Fitch MD Service: ? Author Type: Physician Type: Progress Notes Filed: 03/21/2023 12:34 AM Note Text: JEANMARIE FARIA [id number] 03/17/2023 [facility] Radiation Oncology Department SIMULATION NOTE DATE OF SIMULATION: 03/17/2023 THERAPIST: Gayathri [employer] MACHINE: Appia DIAGNOSIS: AREA: LUNG CONTRAST: IV Oral Consent in Epic: Yes PATIENT POSITION: Supine. FIXATION DEVICE: In order to achieve accurate and reproducible treatments, the patient is immobilized with THE ORFIT AIO SYSTEM. 50ML OF [id number] WAS INJECTED VIA THE RIGHT WRIST SIPS OF 20ML OF VMSH001 DILUTED IN 450 ML OF WATER WAS [...] Electronically Signed Saleem Fitch M.D. / GHANSHYAM :08 AM [facility] 03-17-2023 History of Present illness Narrative JEANMARIE FARIA [id number] 03/17/2023 [facility] Radiation Oncology Department SIMULATION NOTE DATE OF SIMULATION: 03/17/2023 THERAPIST: Gayathri Becerra [employer] MACHINE: Appia DIAGNOSIS: C34.82 Malignant neoplasm of overlapping sites of left bronchus and lung AREA: LUNG CONTRAST: IV Oral Consent in Epic: Yes PATIENT POSITION: Supine. FIXATION DEVICE: In order to achieve accurate and reproducible treatments, the patient is immobilized with THE ORFIT AIO SYSTEM. 50ML OF [id number] WAS INJECTED VIA THE RIGHT WRIST SIPS OF 20ML OF ZPLS073 DILUTED IN 450 ML OF WATER WAS [...] GHANSHYAM 37:18 PM documented in this encounter [facility] 03-17-2023 History of Present illness Narrative JEANMARIE FARIA [id number] 03/17/2023 [facility] Department of Radiation Oncology Treatment Planning [...] M.D. 35:10 PM documented in this encounter [facility] 03-15-2023 Note HNO ID: [id number] Author: Nancy Sanabria RT(R) Service: ? Author [...] 0810 PATIENT DISCHARGED TO: Ambulatory patient, left NE department area. A Diagnostic radioactive procedure has taken place, with no further precautions necessary other than routine body substance precautions. More information regarding radiation safety can be found using this link: [email or web address] SIGNATURE: RT Letty(R) PATIENT NAME: Jeanmarie Faria DATE: March 15, 2023 TIME: 11:18 AM PAGER/CONTACT #: [facility] 03-15-2023 Note HNO ID: [id number] Author: Diane Boston RN Service: ? Author [...] Intact SIGNATURE: Diane Boston RN PATIENT NAME: Jaenmarie Faria DATE: March 15, 2023 TIME: 8:04 AM [facility] 03-14-2023 Miscellaneous Notes Received Hem/Onc consult notes 03/07/23 from [facility] Record scanned in Epic pernell Constantino asst documented in this encounter [facility] 03-10-2023 Note Patient: Jeanmarie chavarria Procedure Summary Date: 03/10/23 [facility] Main Operating Room Anesthesia Start: 1102 Anesthesia Stop: 1226 Procedure: BRONCHOSCOPY Diagnosis: Tracheal mass Scheduled Providers: Betito Foss MD; Marielle Randhawa MD Responsible Provider: Marielle Randhawa MD Anesthesia Type: general ASA Status: 3 [...] no known notable events for this encounter. [facility] 03-10-2023 Note Patient: Jeanmarie chavarria Procedure Information Date/Time: 03/10/23 1030 Scheduled providers: eBtito Foss MD; Marielle Randhawa MD Procedure: BRONCHOSCOPY [facility] Past Medical History: Diagnosis [...] resident and medical student. Additional Equipment Requests [facility] 03-10-2023 Miscellaneous Notes Images from the original note were not included. Thoracic Surgery Consultation - review of records for appointment scheduling Received medical records from the office of Archana Rodriguez [facility] [address] Patient is being referred to Stan Garcia [...] position. ebus 03/03/2023 Imaging PET/CT: 03/15/[address] [place] [address] (chest) 02/19/23 Cardiopulmonary Testing PFT's/Six: requested [...] Fitch to discuss PET scan 03/15 at [facility], await results Nancy Beach RN LOCAL PATIENT Received Fax from Dr. Archana Rodriguez Jeanmarie Faria is being referred to Stan Garcia M.D., Ph. D. Or Lamonte Guerra by Dr. Archana Rodriguez [address] [place] [address] Patient diagnosis/Reason for consult: Lung Cancer Referral triage process explained: No Patient will receive a call from Thoracic NPM after triage review with surgeon to discuss any additional testing and/or consults that will be scheduled. Pt will then receive a call from our scheduling office for scheduling. Please call pt at [phone]. Patient was informed consultation could be at [place] or [facility]: No Patient Registration: Registration complete/updated: yes Insurance card(s) scanned in [facility] with in the past year: Yes: Date: 03/08/23 Pt's [email or web address] is Pending. Ok to communicate to pt via My 1% not asked Medical Records: Records in [facility] (internal [facility] records): Yes Imaging in [facility] (internal [facility] records): Yes Care Everywhere - queried yes, downloaded Yes Linked Outside Organizations (list): [facility]; [place]; [facility] Records Requested: No Date: N/A Outside Hospital(s) requested records from: n/a Received: yes Uploaded: Yes. Waiting on additional records: No. Missing (list): N/A OS Pathology Slides Requested: no Date: N/A Outside Hospital(s) slides requested from: n/a OS Radiology Imaging Requested: yes Date: March 08, 2023 Outside Hospital(s) requested imaging from: [facility]. Imaging will be received via Electronic Transfer Received: Yes Imaging uploaded: Yes Waiting on additional: No Missing (list): n/a Additional providers added to Care Teams: Yes Additional Notes/Comments: n/a Enct routed to: Zana Louis NPM for Triage Alber Fernandez, administrative office manager documented in this encounter [facility] 03-08-2023 Miscellaneous Notes I notified Carla with Dr. Gongora's office, cardiology, that Jeanmarie will be scheduled for a bronchoscopy with pulmonary stent placement with Dr. Foss, [place] rehabilitation caseworker, and will need cardiac clearance. I provided Carla with Dr. Foss's phone and fax number and she notify Dr. Gongora. Toney Bailon LPN documented in this encounter [facility] 03-03-2023 Note No concerns as per c all back guidelines [facility] 03-03-2023 Note Patient: Jeanmarie chavarria Procedure Summary Date: 03/03/23 [facility] Operating Room Anesthesia Start: 1334 Anesthesia [...] per anesthesia protocol. No notable events documented. [facility] 03-03-2023 Note Airway Date/Time: 03/03/2023 1:45 PM Urgency: elective Airway not difficult General Information and Staff Patient location during procedure: OR Anesthesiologist: Jacky Yuan MD Resident/SOCIAL AND HUMAN SERVICES ASSISTANT/CAA: Isiah Alves MD Performed: resident/SOCIAL AND HUMAN SERVICES ASSISTANT/CAA Indications and Patient Condition Indications for airway management: anesthesia Spontaneous ventilation: present Sedation level: deep Preoxygenated: yes Patient position: sniffing Final Airway Details Final airway type: supraglottic airway Successful airway: i-gel Size 4 Number of attempts at approach: 1 Number of other approaches attempted: 0 [facility] 03-03-2023 Note Patient: Jeanmarie chavarria Procedure Summary Date: 03/03/23 [facility] Main Operating Room Anesthesia Start: 1334 Anesthesia Stop: Procedure: BRONCHOSCOPY Diagnosis: Mediastinal adenopathy Scheduled Providers: Betito Foss MD; Jacky Yuan MD Responsible Provider: Jacky Yuan MD Anesthesia Type: general ASA Status: 4 Anesthesia Post Transport Note Transport to: PACU O2 Route: room air Patient Monitor: direct observation Transport: uneventful Patient condition is: stable [facility] 03-03-2023 Note Patient: Jeanmarie chavarria Procedure Information Date/Time: 03/03/23 1330 Scheduled providers: Betito Foss MD; Jacky Yuan MD Procedure: BRONCHOSCOPY [facility] Operating Room Relevant Problems No relevant [...] No date: COPD (chronic obstructive pulmonary disease) ([facility]) No date: Coronary artery disease No date: Diverticulosis No date: GERD (gastroesophageal reflux disease) No date: History of transfusion No date: Hyperlipidemia No date: Hypertension No date: Irritable bowel syndrome No date: Mediastinal mass 11/2021: Myocardial infarction ([facility]) No date: Spastic colon Current Outpatient Medications [...] Plan discussed with resident. Additional Equipment Requests [facility] 02-24-[address] Rodriguez . Patient was admitted to [place], found to have a large mediastinal mass. I have reviewed the images and the patient will need an urgent EBUS-TBNA. Orders placed Betito Foss MD Interventional Pulmonary Medicine Pulmonary and Critical Care Medicine [facility] 12-30-2022 Discharge summary Note Date/Time December 30, 2022 1:19pm [facility] [address] [place] [address] Discharge Summary Signed Patient: Jeanmarie Faria MR#: [id number] : 1965 Acct:[id number] Age/Sex: 57 / F Adm Date: 3 [...] % (Auto) 60.8, Lymph % (Auto) 27.2, [place] % (Auto) 10.1, Eos % (Auto) 1.0, Baso % (Auto) 0.9, Nucleat RBC Rel Count 0.2, Neut # (Auto) 7.8 H, Lymph # (Auto) 3.5, [place] # (Auto) 1.3 H, Eos # (Auto) [...] cessation Additional Instructions: DISCHARGE INSTRUCTIONS FOR CARDIAC ROOF TILE LAYER PHONE NUMBER OF YOUR PHYSICIAN: [phone] PROCEDURE: Heart Cath The following instructions have [...] cold, numb, blue or white, call the mask inspector immediately. 4. ACTIVITY: You are advised to [...] bottle, follow the instructions on the bottle. [facility] is not responsible for incorrect prescription [...] signed by Teo Gongora DO> 12/30/[address] [facility] Work Phone: 1(989) 386-494705-05-2023 [facility] Hospital Discharge instructions Additional Instructions DISCHARGE INSTRUCTIONS FOR CARDIAC ROOF TILE LAYER PHONE NUMBER OF YOUR PHYSICIAN: [phone] PROCEDURE: Heart Cath The following instructions have [...] cold, numb, blue or white, call the mask inspector immediately. 4. ACTIVITY: You are advised to [...] bottle, follow the instructions on the bottle. [facility] is not responsible for incorrect prescription information provided by the patient during their visit. Do not stop your medications without consulting your health care provider. Please take the list with you to your next doctor's appointment.[facility] Work Phone: 1(517) 917-928004-21-2022 Discharge summary Author Viviane Loco [facility] December 16, 2021 5:37pm Note Date/Time December 16, 2021 4:2 9pm [facility] [address] [place] [address] Discharge Summary Signed with Addenda Patient: Jeanmarie Faria MR#: [id number] : 1965 Acct:[id number] Age/Sex: 56 / F Adm Date: 2 Loc: Room: [address] [place] [address]: Viviane Loco MD Copies to: [...] Final Diagnosis Final Discharge Diagnosis: Non-ST elevation PA status post intervention in circumflex and RCA Hyperlipidemia LVH hypertrophy with septal asymmetry Summary Hospital Course Hospital course: 56 years old female was transferred with non-ST elevation PA. Patient presentedwith shortness of breath and chest pain. Patient was found to have non-ST elevation PA with significantly abnormal EKG and elevated troponins. [...] Laboratory work up and Imaging studies reviewed panel monitor - reviewed, no significant arrhythmias noted [...] doctor or pharmacist, without first calling the mask inspector who implanted the stent. If you require [...] weight lifting, stair steppers, etc. until the mask inspector approves these activities. Check with the mask inspector on your first follow-up visit. CALL YOUR PHYSICIAN at [phone]: -If bleeding should occur from the catheter insertion site- apply pressure to the site then immediately call us. -Report any fever, redness, drainage, increased swelling, or firmness at the catheter insertion site. Some bruising or slight swelling may be present at thetime of discharge. -Should arm or leg become cold, numb, white, or blue, contact the mask inspector immediately. -IF you should experience episodes of [...] is recommended. Please call Central Scheduling at [phone] to schedule your appointment.] The attending mask inspector or [facility] nurse clinician should provide you with specific instructions regarding activity, diet, medications, and further follow up for you. Follow the medication instructions provided on your discharge. If the dosages and instructions on this sheet differ from the dosage and instructions on the bottle, follow the instructions on the bottle. [facility] information [...] up appointment.) Documented By: Viviane Loco MD 12/16/211625 Signed By: <Electronically signed by Viviane Loco MD> 12/16/21 1629 [facility] Work Phone: 1(973) 399-481604-20-2022 Consult note Author Teo Gongora [facility] December 15, 2021 3:41pm Note Date/Time December 15, 2021 3:4 1pm [facility] [address] [place] [address] Cardiology Consult Note Signed Patient: Jeanmarie Faria MR#: [id number] : 1965 Acct:[id number] Age/Sex: 56 / F Adm Date: 2 Loc: Room: [address] [place] [address] Type : ADM INOo Attending Dr: Viviane Loco MD Copies to: DO Viviane Paredes MD W Scott Sheldon, DO~ Cardiology HPI History of Present Illness Consult Date: 12/15/21 Reason for Consult: Non-ST elevation PA HPI: Ms. Faria is a 56 year old female seen in interventional cardiology consultationat the request of [place] [facility] attending and hospitalist for non-ST elevation PA. Patient developed severe chest discomfort yesterday, went to [place] emergencyroom, initial troponins were elevated at 4000 [...] x10E3/uL Lymph # (Auto) 3.8 (1.00-4.8) x10E3/uL [place] # (Auto) 1.3 H (0.0-0.8) x10E3/uL Eos [...] 15:59 Intake Total 0 / 10 10 Output Total 0 / 0 Balance 0 / 10 10 Intake: Oral 0 / 10 10 Output: Urine 0 / 0 Other: [...] 1536 Signed By: <Electronically signed by Teo Gongora, > 12/15/21 1541 [facility] Work Phone: 1(101) 968-483804-20-2022 [facility] Progress note Author Viviane Loco [facility] December 15, 2021 1:34pm Note Date/Time December 15, 2021 1:3 4pm [facility] [address] [place] [address] Hospitalist Progress Note Signed Patient: Jeanmarie Faria MR#: [id number] : 1965 Acct:[id number] Age/Sex: 56 / F Adm Date: 2 Loc: Room: [address] [place] [address] Type : ADM INOo Attending Dr: Viviane [...] elevated myocardial infarction): Plan 1. Non-ST elevation PA, currently patient is asymptomatic Significantly abnormal EKG with elevated troponins Plan for cardiac catheterization 2. Smoker 3. DVT prophylaxis Lovenox Documented By: Viviane Loco MD 12/15/21 133 Signed By: <Electronically signed by Viviane Loco MD> 12/15/21 1334 [facility] Work Phone: [phone] [id number] [facility] History and physical note Author Viviane Loco [facility] December 14, 2021 6:12pm Note Date/Time December 14, 2021 6:1 2pm [facility] [address] [place] [address] Hospitalist H&P Signed Patient: Jeanmarie Faria MR#: [id number] : 1965 Acct:[id number] Age/Sex: 56 / F Adm Date: 2 Loc: Room: [address] [place] [address] Type : ADM IN Attending Dr: Viviane [...] problems. She went to emergency room at [facility]. EKG was done which showed ST [...] elevated myocardial infarction): Plan 1. Non-ST elevation PA, currently patient is asymptomatic Significantly abnormal EKG with elevated troponins Continue with telemetry in PCU, serial cardiac enzymes, check echocardiogram Continue with aspirin, already got at [facility]. Will give Lovenox therapeutic dose. Start statin Consult cardiology Start nitroglycerin patch 2. Smoker 3. 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 [facility] Neoplasm of lung- Primary Neoplasm of unspecified nature of respiratory system [facility] Neoplasm of lung- Primary Neoplasm of unspecified nature of respiratory system [facility] Diagnosis Malignant neoplasm of left lung, unspecified part of lung (HCC)- Primary [facility] Neoplasm of lung- Primary Neoplasm of unspecified nature of respiratory system [facility] Diagnosis Muscle soreness- Primary Mylagia and myositis, unspecified [facility] Neoplasm of lung- Primary Neoplasm of unspecified nature of respiratory system [facility] Diagnosis Smoking greater than 40 pack years- Primary Tobacco use disorder Neoplasm of lung Neoplasm of unspecified nature of respiratory system [facility] Neoplasm of lung- Primary Neoplasm of unspecified nature of respiratory system [facility] Diagnosis SVT (supraventricular tachycardia)- Primary Other specified cardiac dysrhythmias Hypertrophic nonobstructive cardiomyopathy (CMS/HCC) Other primary cardiomyopathies ASHD (arteriosclerotic heart disease) Coronary atherosclerosis of unspecified type of vessel, sun'aq or graft Essential hypertension Unspecified essential hypertension Mixed hyperlipidemia Angina pectoris (CMS/HCC) Other and unspecified angina pectoris Non-small cell cancer of left lung (CMS/HCC) BMI 26.0-26.9,adult documented in this encounter [facility] Work Phone: Evaluation note* Diagnosis Neoplasm of lung- Primary Neoplasm of unspecified nature of respiratory system documented in this encounter [facility] Discharge instructions Additional Instructions DISCHARGE INSTRUCTIONS [...] doctor or pharmacist, without first calling the mask inspector who implanted the stent. If you require [...] weight lifting, stair steppers, etc. until the mask inspector approves these activities. Check with the mask inspector on your first follow-up visit. CALL YOUR PHYSICIAN at [phone]: -If bleeding should occur from the catheter insertion site- apply pressure to the site then immediately call us. -Report any fever, redness, drainage, increased swelling, or firmness at the catheter insertion site. Some bruising or slight swelling may be present at the time of discharge. -Should arm or leg become cold, numb, white, or blue, contact the mask inspector immediately. -IF you should experience episodes of [...] is recommended. Please call Central Scheduling at [phone] to schedule your appointment.] The attending mask inspector or [facility] nurse clinician should provide you with specific instructions regarding activity, diet, medications, and further follow up for you. Follow the medication instructions provided on your discharge. If the dosages and instructions on this sheet differ from the dosage and instructions on the bottle, follow the instructions on the bottle. [facility] is not responsible for incorrect prescription information provided by the patient during their visit. Do not stop your medications without consulting your health care provider. Please take the list with you to your next doctor's appointment.[facility] Work Phone: Progress note Author W Rolan [facility] December 16, 2021 5:24pm Note Date/Time December 16, 2021 5:2 1pm [facility] [address] [place] [address] Cardiology Progress Note Signed Patient: Jeanmarie Faria MR#: [id number] : 1965 Acct:[id number] Age/Sex: 56 / F Adm Date: 2 Loc: Room: [address] [place] [address] Type : ADM IN Attending Dr: Viviane Loco MD Copies to: ~ Date of Service: 12/16/2021 Subjective Principal diagnosis: Non-ST elevation PA, hypertrophic cardiomyopathy Interval history: Stable status post [...] 1721 Signed By: <Electronically signed by Teo Gongora DO> 12/16/21 1724 [facility] Work Phone: Chief Complaint and Reason for Visit Chief Complaint N Stemi Reason for Visit NSTEMI (non-ST eleva roeny myocardial infarction) Smoker Chief Complaint Angina Class 2, ASHD , COB, Hx of PA Advance Directives No Advanced Directives Records Found Advance Directive Response Recorded Date/ Time Advance Directives No December 14, 2 022 3:50pm Chief Complaint * JEANMARIE FARIA is being seen for a 1 month follow-up of. * Patient is a 56-year-old female returns following recent non-ST elevation PA, , Discharged December 16, following revascularization of [...] has a history of heart transplantation in [place], and was sent to a [facility] with similar flulike illness and was diagnosed with influenza. * Patient remains on appropriate postinfarction guideline directed medical therapies, she still smoking 1/2 pack cigarettes a day but is cut back quite a bit. We continue to skilled nursing facility counselor her extensively on tobacco cessation and [...] She has a history of non-ST elevation PA in November 2021 with two-vessel revascularization involving [...] Referral Specialty Diagnoses / Procedures Referred By Mayito chavarria Referred To Contact Radiation Oncology Diagnoses Malignant neoplasm of left lung, unspecified part of lung (HCC) Procedures RAD/ONC CONSULT OFFICE/OUTPATIENT [facility] 60-74 MINUTES Stan Garcia MD, PhD [email or web address] [place] [address] Referral ID Status Reason Start Date Expiration Date Visits Requested Visits Authorized [id number] Authorized PCP Requested Referral 03/10/2023 03/09/2024 1 1 Specialty Diagnoses / Procedures Referred By Mayito chavarria Referred To Contact Oncology Diagnoses Malignant neoplasm of left lung, unspecified part of lung (HCC) Procedures CONSULT TO ONCOLOGY OFFICE/OUTPATIENT [facility] MDM 60-74 MINUTES Stan Garcia MD, PhD [address] [place] [address] Referral ID Status Reason Start Date Expiration Date Visits Requested Visits Authorized [id number] Authorized PCP Requested Referral 03/10/2023 03/09/2024 1 1 Specialty Diagnoses / Procedures Referred By Contac t Referred To Contact MR IMAGING Diagnoses Secondary malignant neoplasm of brain (HCC) Malignant neoplasm of left lung, unspecified part of lung (HCC) Procedures MRI BRAIN WO/W IVCON MRI BRAIN BRAIN STEM W/O W/CONTRAST MATERIAL Stan Garcia MD, PhD [address] [facility] [address] [place] [address] Mr Imaging Referral ID Status Reason Start Date Expiration Date Visits Requested Visits Authorized [id number] Pending Review Auto-Generat ed Referral 03/10/2023 04/08/2024 1 1 Specialty Diagnoses / Procedures Referred By Contac t Referred To Contact RADIATION ONCOLOGY Diagnoses Malignant neoplasm of unspecified part of left bronchus or lung Procedures CT SIM PLANNING RADIATION ONCOLOGY THER RAD SIMULAJ-AIDED FIELD SETTING COMPLEX INTENSITY MODULATED RADIATION TX DLVR COMPLEX IMRT 30 fractions Saleem Fitch MD [address] [place] [address] [facility] [place] [place] [address] Referral ID Status Reason Start Date Expiration Date Visits Requested Visits Authorized [id number] Authorized PCP Requested Referral Patient Cleared INN/SMCP Payor Auth Obtained 03/21/2023 06/21/2023 31 31 Specialty Diagnoses / Procedures Referred By Contac t Referred To Contact Diagnoses SVT (supraventricular tachycardia) Procedures ECG 12 Lead Isabel Cagle MENTAL HEALTH ASSOCIATE-SUPERVISOR FABRICATION DEPARTMENT [address] [facility] 2, Madhav [address] [place] [address] Referral ID Status Reason Start Date Expiration Date V isits Requested Visits Authorized [id number] Pending Review 07/11/2023 07/10/2024 1 1 Specialty Diagnoses / Procedures Referred By Contac t Referred To Contact Cardiology Diagnoses Hypertrophic nonobstructive cardiomyopathy (CMS/HCC) ASHD (arteriosclerotic heart disease) Procedures Follow Up In Cardiology Isabel Cagle MENTAL HEALTH ASSOCIATE-SUPERVISOR FABRICATION DEPARTMENT [address] [facility] 2, [address] [place] [address] Brett Gongora DO [address] [facility], [facility] [address] [place] [address] Referral ID Status Reason Start Date Expiration Date V isits Requested Visits Authorized [id number] Authorized 07/10/2023 07/09/2024 1 1 Additional Source Comments Care Teams (unrecognized sec tion and content) Team Status: Inactive Member Role Status Dates Viviane Loco MD Admit Provider, Attending Provide r Active Trupti Cuellar , BURTON Other Provider Active Teo Gongora DO Other Provider Active Bolivar Magana MD Other Provider Active Brett Price MD Other Provider Active Tonio Phillip MD Other Provider Active Aris Mckeon MD Other Provider Active Isabel Cagle APRN Other Provider Active Nitza Ventura MD Other Provider Active Karen Mcdowell MD Other Provider Active Charanjit Mckinney MD Other Provider Active Aris Stewart DO Primary Care Provider Active Team Status: Active Member Role Status Dates Aris Stewart DO Primary Care Provider Active Team Status: Inactive Member Role Status Dates Aris Stewart DO Primary Care Provider Active Teo Gongora DO Attending Provider Active [employer] Set Up Operator Relationship Specialty Start Date End Date Aris Stewart Sr. [address] [place] [address] PCP - General Family Medicine 03/07/23 Betito Foss [address] [place] [phone] Critical Care 03/08/23 [employer] Set Up Operator Relationship Specialty Start Date End Date Aris Stewart Sr. [address] [place] [address] PCP - General Family Medicine 03/07/23 Betito Foss [address] [place] [address] Critical Care 03/08/23 [employer] Set Up Operator Relationship Specialty Start Date End Date Aris Stewart Sr. [address] [facility] [address] PCP - General Family Medicine 03/07/23 Betito Foss [address] [place] [address] Critical Care 03/08/23 [employer] Mill Set Up Operator Relationship Specialty Start Date End Date Aris Stewart Sr. [address] [place] [address] PCP - General Family Medicine 03/07/23 Betito Foss [address] [place] [address] Critical Care 03/08/23 [employer] Set Up Operator Relationship Specialty Start Date End Date Aris Stewart Sr. [address] [place] [address] PCP - General Family Medicine 03/07/23 Betito Foss [address] [place] [address] Critical Care 03/08/23 [employer] Set Up Operator Relationship Specialty Start Date End Date Aris Stewart Sr. [address] [place] [address] PCP - General Family Medicine 03/07/23 Betito Foss [address] [place] [address] Critical Care 03/08/23 [employer] Set Up Operator Relationship Specialty Start Date End Date Aris Stewart Sr. [address] [place] [address] PCP - General Family Medicine 03/07/23 Betito Foss [address] [place] [address] Critical Care 03/08/23 [employer] Set Up Operator Relationship Specialty Start Date End Date Aris Stewart Sr. [address] [place] [address] PCP - General Family Medicine 03/07/23 Betito Foss [address] [place] [address] Critical Care 03/08/23 [employer] Set Up Operator Relationship Specialty Start Date End Date Aris Stewart Sr. [address] [place] [address] PCP - General Family Medicine 03/07/23 Betito Foss [address] [place] [address] Critical Care 03/08/23 [employer] Set Up Operator Relationship Specialty Start Date End Date Aris Stewart Sr. [address] [place] [address] PCP - General Family Medicine 03/07/23 Betito Foss [address] [place] [address] Critical Care 03/08/23 [employer] Mill Set Up Operator Relationship Specialty Start Date End Date Aris Stewatr Sr. [address] [place] [address] PCP - General Family Medicine 03/07/23 Betito Foss [address] [place] [phone] Critical Care 03/08/23 Boring Mill Set Up Operator Relationship Specialty Start Date End Date Aris Stewart Sr. [address] [place] [address] PCP - General Family Medicine 03/07/23 Betito Foss [address] [place] [address] Critical Care 03/08/23 [employer] Set Up Operator Relationship Specialty Start Date End Date Aris Stewart Sr. [address] [place] [address] PCP - General Family Medicine 03/07/23 Betito Foss MD [address] [place] [address] Critical Care 03/08/23 [employer] Set Up Operator Relationship Specialty Start Date End Date Aris Stewart Sr. [address] [place] [address] PCP - General Family Medicine 03/07/23 Betito Foss MD [address] [facility] [place] [address] Critical Care 03/08/23 [employer] Set Up Operator Relationship Specialty Start Date End Date Aris Stewart Sr. [address] [facility] [place] [address] PCP - General Family Medicine 03/07/23 Betito Foss MD [address] [facility] [place] [address] Critical Care 03/08/23 [employer]oring Mill Set Up Operator Relationship Specialty Start Date End Date Aris Stewart, [address] [place] [phone] PCP - General 01/25/22 [employer] Set Up Operator Relationship Specialty Start Date End Date Aris Stewartpaul Meyers., DO [address] [facility] [place] [address] PCP - General Family Medicine 03/07/23 Betito Foss MD [address] [place] [address] Critical Care 03/08/23 Reason for Visit (unrecogniz [...] tachycardia) Procedures ECG 12 Lead Isabel Cagle, MENTAL HEALTH ASSOCIATE-SUPERVISOR FABRICATION DEPARTMENT [address] [facility] 2, [address] [place] [address] Referral ID Status Reason Start Date Expiration Date V isits Requested Visits Authorized [id number] Pending Review 07/11/2023 07/10/2024 1 1 Reason Comments Lung Cancer INFORMATION SOURCE (unrecogn ized section and content) DATE CREATED AUTHOR 02/24/2022 [facility] DATE CREATED AUTHOR AUTHOR'S ORGANIZ ATION 08/18/2022 [facility] DATE CREATED AUTHOR AUTHOR'S ORGANIZ ATION 12/30/2022 [facility] DATE CREATED AUTHOR AUTHOR'S ORGANIZ ATION 01/05/2023 [facility] DATE CREATED AUTHOR AUTHOR'S ORGANIZ ATION 04/27/2023 [facility] DATE CREATED AUTHOR AUTHOR'S ORGANIZ ATION 06/20/2023 [facility] DATE CREATED AUTHOR AUTHOR'S ORGANIZ ATION 07/11/2023 [facility] DATE CREATED AUTHOR AUTHOR'S ORGANIZ ATION 09/26/2023 [facility] DATE CREATED AUTHOR AUTHOR'S ORGANIZ ATION 11/07/2023 [facility] EPIC Source Comments (unrecognize d section and content) In the event this informatio n is protected by the Federal Confidentiality of Alcohol and Drug Abuse Patient Records regulations: The Federal rules restrict any use of the information to criminally investigate or prosecute any alcohol or drug abuse patient.[facility] the event this information is protected by the Federal Confidentiality of Alcohol and Drug Abuse Patient Records regulations: The Federal rules restrict any use of the information to criminally investigate or prosecute any alcohol or drug abuse patient.[facility] the event this information is protected by the Federal Confidentiality of Alcohol and Drug Abuse Patient Records regulations: The Federal rules restrict any use of the information to criminally investigate or prosecute any alcohol or drug abuse patient.[facility] the event this information is protected by the Federal Confidentiality of Alcohol and Drug Abuse Patient Records regulations: The Federal rules restrict any use of the information to criminally investigate or prosecute any alcohol or drug abuse patient.[facility] the event this information is protected by the Federal Confidentiality of Alcohol and Drug Abuse Patient Records regulations: The Federal rules restrict any use of the information to criminally investigate or prosecute any alcohol or drug abuse patient.[facility] the event this information is protected by the Federal Confidentiality of Alcohol and Drug Abuse Patient Records regulations: The Federal rules restrict any use of the information to criminally investigate or prosecute any alcohol or drug abuse patient.[facility] the event this information is protected by the Federal Confidentiality of Alcohol and Drug Abuse Patient Records regulations: The Federal rules restrict any use of the information to criminally investigate or prosecute any alcohol or drug abuse patient.[facility] the event this information is protected by the Federal Confidentiality of Alcohol and Drug Abuse Patient Records regulations: The Federal rules restrict any use of the information to criminally investigate or prosecute any alcohol or drug abuse patient.[facility] the event this information is protected by the Federal Confidentiality of Alcohol and Drug Abuse Patient Records regulations: The Federal rules restrict any use of the information to criminally investigate or prosecute any alcohol or drug abuse patient.[facility] the event this information is protected by the Federal Confidentiality of Alcohol and Drug Abuse Patient Records regulations: The Federal rules restrict any use of the information to criminally investigate or prosecute any alcohol or drug abuse patient.[facility] the event this information is protected by the Federal Confidentiality of Alcohol and Drug Abuse Patient Records regulations: The Federal rules restrict any use of the information to criminally investigate or prosecute any alcohol or drug abuse patient.[facility] the event this information is protected by the Federal Confidentiality of Alcohol and Drug Abuse Patient Records regulations: The Federal rules restrict any use of the information to criminally investigate or prosecute any alcohol or drug abuse patient.[facility] the event this information is protected by the Federal Confidentiality of Alcohol and Drug Abuse Patient Records regulations: The Federal rules restrict any use of the information to criminally investigate or prosecute any alcohol or drug abuse patient.[facility] the event this information is protected by the Federal Confidentiality of Alcohol and Drug Abuse Patient Records regulations: The Federal rules restrict any use of the information to criminally investigate or prosecute any alcohol or drug abuse patient.[facility] the event this information is protected by the Federal Confidentiality of Alcohol and Drug Abuse Patient Records regulations: The Federal rules restrict any use of the information to criminally investigate or prosecute any alcohol or drug abuse patient.[facility] Center[facility] the event this information is protected by the Federal Confidentiality of Alcohol and Drug Abuse Patient Records regulations: The Federal rules restrict any use of the information to criminally investigate or prosecute any alcohol or drug abuse patient.[facility] the event this information is protected by the Federal Confidentiality of Alcohol and Drug Abuse Patient Records regulations: The Federal rules restrict any use of the information to criminally investigate or prosecute any alcohol or drug abuse patient.[facility] Center[facility] the event this information is protected by the Federal Confidentiality of Alcohol and Drug Abuse Patient Records regulations: The Federal rules restrict any use of the information to criminally investigate or prosecute any alcohol or drug abuse patient.[facility] FOR RECORDS PERTAINING TO PATIENTS WHO [...] BE BASED ON THE PRIMARY CLINICAL RECORDS. [facility] [employer] [facility]. provides no warranty or guarantee of the accuracy or completeness of information in this document.
== END 2023-11-14 09:12 | disposition home or self-care (01) ==
LOC: CT 09:11
PROVIDERS: PCP Internal Medicine; Visit Provider Internal Medicine
DX: J18.9 Pneumonia, unspecified organism (principal); C34.02 Malignant neoplasm of left main bronchus
CPT/HCPCS: 71250

== ENCOUNTER 2023-11-21 07:26 | Outpatient (RCR) | payer OTHER, SELFPAY ==
[2023-11-07 08:11] LABS: Basophils Absolute Auto 0.1 10^3/uL (0.0-0.1); Basophils Percent Auto 0.7 % (0.2-2.0); Eosinophils Absolute Auto 0.1 10^3/uL (0.0-0.7); Hematocrit 36.8 % (36.0-48.0); Hemoglobin 12.1 g/dL (12.0-16.0); Immature Granulocytes Abs Auto 0.03 10^3/uL (0.00-0.03); Immature Granulocytes Pct Auto 0.3 % (0.0-0.5); Lymphocytes Percent Auto 22.2 % (20.5-60.0); Mean Corpuscular HGB Conc 32.9 g/dL (29.9-35.2); Mean Corpuscular Hemoglobin 29.2 pg (26.7-34.0); Mean Corpuscular Volume 88.9 fL (81.0-99.0); Mean Platelet Volume 9.5 fL (9.5-13.5); Monocytes Absolute Auto 0.9 10^3/uL (0.3-0.8); Monocytes Percent Auto 9.5 % (1.7-12.0); Neutrophils Absolute Auto 6.1 10^3/uL (1.4-6.5); Neutrophils Percent Auto 66.3 % (43.0-75.0); Platelet Count 390 10^3/uL (150-450); Red Blood Count 4.14 10^6/uL (4.20-5.40); Red Cell Distribution Width 16.5 % (11.0-15.0); White Blood Count 9.2 10^3/uL (4.0-11.0)
[2023-11-07 08:24] VITALS: BP 131/77; PULSE 64; RESP 18; TEMP 36.8; O2SAT 97
[2023-11-07 08:37] LABS: Alanine Aminotransferase 20 U/L (14-59); Albumin Globulin Ratio 0.8; Albumin Level 3.3 g/dL (3.4-5.0); Alkaline Phosphatase 219 U/L (46-116); Anion Gap 12.8; Aspartate Amino Transferase 17 U/L (15-37); BUN Creatinine Ratio 13.3; Bilirubin Total 0.3 mg/dL (0.2-1.0); Calcium 8.7 mg/dL (8.5-10.1); Chloride 108 mmol/L (98-107); Estimated GFR (African America >60 (>=60); Estimated GFR (Non-African Ame >60 (>=60); Globulin 4.1 g/dL; Glucose 102 mg/dL (74-106); Magnesium 1.8 mg/dL (1.8-2.4); Potassium 3.8 mmol/L (3.5-5.1); Sodium 145 mmol/L (136-145); Total Protein 7.4 g/dL (6.4-8.2)
[2023-11-07] MEDS: 0.9 % SODIUM CHLORIDE 250 ML 10 ML IV (09:30)
[2023-11-07] MEDS: DURVALUMAB IV (09:39)
[2023-11-07] MEDS: SODIUM CHLORIDE 0.9% IV (09:39)
[2023-11-07] MEDS: HEPARIN SODIUM (PORCINE) PF LOCK FLUSH 500 UNIT/5 ML SYRINGE IV (10:58)
[2023-11-07 11:12] VITALS: BP 135/77; PULSE 60; RESP 18; TEMP 36.3; O2SAT 93
[2023-11-21 08:59] VITALS: BP 129/78; PULSE 79; RESP 18; TEMP 36.3; O2SAT 96
[2023-11-21 09:07] LABS: Basophils Absolute Auto 0.1 10^3/uL (0.0-0.1); Basophils Percent Auto 0.8 % (0.2-2.0); Eosinophils Absolute Auto 0.1 10^3/uL (0.0-0.7); Eosinophils Percent Auto 1.1 % (0.9-7.0); Hematocrit 39.1 % (36.0-48.0); Hemoglobin 12.6 g/dL (12.0-16.0); Immature Granulocytes Abs Auto 0.04 10^3/uL (0.00-0.03); Immature Granulocytes Pct Auto 0.4 % (0.0-0.5); Lymphocytes Percent Auto 20.6 % (20.5-60.0); Mean Corpuscular HGB Conc 32.2 g/dL (29.9-35.2); Mean Corpuscular Hemoglobin 28.9 pg (26.7-34.0); Mean Corpuscular Volume 89.7 fL (81.0-99.0); Mean Platelet Volume 10.3 fL (9.5-13.5); Monocytes Absolute Auto 1.1 10^3/uL (0.3-0.8); Monocytes Percent Auto 11.1 % (1.7-12.0); Neutrophils Absolute Auto 6.5 10^3/uL (1.4-6.5); Platelet Count 317 10^3/uL (150-450); Red Blood Count 4.36 10^6/uL (4.20-5.40); Red Cell Distribution Width 17.5 % (11.0-15.0); White Blood Count 9.9 10^3/uL (4.0-11.0)
[2023-11-21 09:09] VITALS: PULSE 79; RESP 18; TEMP 36.3; O2SAT 98
[2023-11-21 09:34] LABS: Alanine Aminotransferase 24 U/L (14-59); Albumin Globulin Ratio 0.9; Albumin Level 3.6 g/dL (3.4-5.0); Alkaline Phosphatase 224 U/L (46-116); Aspartate Amino Transferase 22 U/L (15-37); BUN Creatinine Ratio 21.3; Bilirubin Total 0.3 mg/dL (0.2-1.0); Calcium 8.8 mg/dL (8.5-10.1); Carbon Dioxide 25.9 mmol/L (21.0-32.0); Chloride 104 mmol/L (98-107); Estimated GFR (African America >60 (>=60); Estimated GFR (Non-African Ame >60 (>=60); Globulin 3.9 g/dL; Glucose 100 mg/dL (74-106); Potassium 3.9 mmol/L (3.5-5.1); Sodium 142 mmol/L (136-145); Total Protein 7.5 g/dL (6.4-8.2)
[2023-11-21] MEDS: 0.9 % SODIUM CHLORIDE 250 ML 30 ML IV (10:00)
[2023-11-21] MEDS: SODIUM CHLORIDE 0.9% IV (10:28)
[2023-11-21] MEDS: DURVALUMAB IV (10:28)
--- NOTE | 2023-11-21 11:08 | PC.NURSE ---
tolerating infusion without any issues. eats 100% of meal.
[2023-11-21] MEDS: HEPARIN SODIUM (PORCINE) PF LOCK FLUSH 500 UNIT/5 ML SYRINGE IV (11:37)
--- NOTE | 2023-11-21 11:39 | PC.NURSE ---
1135 infusion completed. flushed port with normal saline and heparinized, deaccessed, released ambulatory.
== END 2023-11-26 23:59 | disposition home or self-care (01) ==
LOC: INF 07:26
PROVIDERS: PCP Internal Medicine; Visit Provider Internal Medicine Hematology & Oncology
DX: Z51.11 Encounter for antineoplastic chemotherapy (principal); C34.92 Malignant neoplasm of unspecified part of left bronchus or lung; D72.829 Elevated white blood cell count, unspecified; D64.9 Anemia, unspecified; R11.2 Nausea with vomiting, unspecified; D72.820 Lymphocytosis (symptomatic); R63.5 Abnormal weight gain; Z13.1 Encounter for screening for diabetes mellitus; J44.9 Chronic obstructive pulmonary disease, unspecified; Z90.710 Acquired absence of both cervix and uterus; I10 Essential (primary) hypertension; K21.9 Gastro-esophageal reflux disease without esophagitis; I25.2 Old myocardial infarction; Z95.5 Presence of coronary angioplasty implant and graft; Z87.891 Personal history of nicotine dependence; D69.59 Other secondary thrombocytopenia; T45.1X5A Adverse effect of antineoplastic and immunosuppressive drugs, initial encounter
CPT/HCPCS: 36591; 80053; 83036; 83735; 84439; 84443; 85025; 96413; G0463; J9173

== ENCOUNTER 2023-11-23 15:04 | Outpatient (OUT) | payer OTHER, SELFPAY ==
--- NOTE | 2023-11-23 15:07 | MM_ITS ---
Patient Name: JEANMARIE ECHEVARRIA MR#: [id number] : 1965 Exam Date: 11/23/2023 Ordering Doctor: Shaikh Christine Morfin . RADIOLOGY REPORT PROCEDURE: MM TOMOSYNTHESIS SCREENING BI COMPARISON: MG MAMM SCREEN 3D GIANNI CAD, 02/21/2022. INDICATIONS: screening Calculator Name NCI Breast Cancer Risk Assessment Tool 5 Year Breast Cancer Risk 2.10% Lifetime Breast Cancer Risk 13.10% Personal Breast Cancer No Personal Ovarian Cancer No Treatments chemotherapy Family Cancers None LOCATION: [facility] BREAST COMPOSITION: Scattered areas fibroglandular density. FINDINGS: DIAGNOSTIC CATEGORY 2--BENIGN FINDING. NO CHANGE FROM COMPARISON. Scattered benign-appearing nodules are present. Scattered benign-appearing calcifications are present. Scattered benign-appearing lymph nodes are present. RIGHT BREAST: No significant suspicious finding. Port-A-Cath partially obscures the upper inner quadrant LEFT BREAST: No significant suspicious finding. RECOMMENDATIONS: ROUTINE MAMMOGRAM AND CLINICAL EVALUATION IN 12 MONTHS. PLEASE NOTE: A NORMAL MAMMOGRAM DOES NOT EXCLUDE THE POSSIBILITY OF BREAST CANCER. A CLINICALLY SUSPICIOUS PALPABLE LUMP SHOULD BE BIOPSIED. Dictated by: Zev Shetty MD on 11/23/2023 at 15:58 Approved by: Zev Shetty MD on 11/23/2023 at 16:02
== END 2023-11-23 15:05 | disposition home or self-care (01) ==
LOC: MAMMO 15:04
PROVIDERS: PCP Internal Medicine; Visit Provider Internal Medicine
DX: Z12.31 Encounter for screening mammogram for malignant neoplasm of breast (principal)
CPT/HCPCS: 77063; 77067

== ENCOUNTER 2023-11-29 15:29 | Outpatient (OUT) | payer OTHER, SELFPAY ==
--- NOTE | 2023-11-29 15:40 | CT_ITS ---
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 TECHNIQUE: Multi-planar CT images were created with IV contrast. Axial, Coronal, and Sagittal images. Dose reduction techniques were achieved by using automated exposure control and/or adjustment of mA and/or kV according to patient size and/or use of iterative reconstruction technique. 3-D reconstruction was performed on a separate workstation. FINDINGS: VASCULATURE: No pulmonary embolism or abnormal opacity. LUNGS: Consolidation of the segments of the left lower lobe, but patent bronchi throughout. PLEURA: Left pleural effusion 1.0 cm in thickness. SHANIA: No mass or adenopathy. MEDIASTINUM: Poorly defined margins of the esophagus and suspected mild wall thickening. CARDIAC: No enlargement, pericardial effusion, or pericardial thickening. AORTA: No aneurysm or dissection. VENA CAVA: Near-complete occlusion of an approximately 2 cm segment of the superior vena cava just beyond the brachiocephalic confluence and a very thin channel contrast passing through this area. Superior vena cava is patent distal to this area with contrast within the superior vena cava. Blood flow through the azygos vein emptying into the superior vena cava. Additional collateral flow provided blood return to the right atrium. CHEST WALL: Haziness and stranding throughout the axilla bilaterally without definable lymph nodes or mass. Port-A-Cath within upper anterior right chest wall tip just beyond the right brachiocephalic confluence. BONES: No bone lesion or fracture. LIMITED ABDOMEN: No suspicious findings. Limited images of the upper abdomen. OTHER: Negative. CT/CT angio chest IMPRESSION: 1. There is a 2 cm long segment of complete to near complete occlusion of the superior vena cava just beyond the brachial cephalic confluence. 2. Partial consolidation of left lower lobe as seen on prior study; infiltrates versus atelectasis. No appreciable mass or bronchial obstruction. 3. New, small left pleural effusion 1 cm in thickness. 4. Poorly defined margins of the esophagus with possible wall thickening; nonspecific. Esophagitis? Electronically authenticated by: MARIANN MARQUES Date: 11/29/2023 16:27
== END 2023-11-29 15:30 | disposition home or self-care (01) ==
LOC: CT 15:30
PROVIDERS: PCP Internal Medicine; Visit Provider Internal Medicine
DX: I87.1 Compression of vein (principal); J90 Pleural effusion, not elsewhere classified
CPT/HCPCS: 71275; Q9967

== ENCOUNTER 2023-11-29 16:43 | Emergency (ER) | payer OTHER, SELFPAY ==
[2023-11-29] VITALS (7 sets, daily range): BP systolic 132–141; BP diastolic 77–88; PULSE 64–68; TEMP 36.6; O2SAT 94–95; BMI 28.3
--- NOTE | 2023-11-29 17:08 | ED.GENADUL1 ---
HPI HPI - General Adult General Chief complaint: Recheck/Abnormal Lab/Rx Stated complaint: Blood Clot Time Seen by Provider: 11/29/23 16:54 Source: patient Mode of arrival: walk-in Limitations: no limitations History of Present Illness HPI narrative: Patient is a 58-year-old female with a history of lung cancer Who presents to the emergency department for abnormal outpatient imaging. Patient's PCP ordered an outpatient CT angio of the chest because the patient reported having swelling in her face for the last week. She has no new chest pain or shortness of breath. She wears oxygen by nasal cannula at 2 L chronically. She has not had any other peripheral edema. She reports minimal cough and congestion. CT angio of the chest shows the patient has a 2 cm segment of complete to near complete occlusion of the superior vena cava. She was sent to the emergency department for treatment and disposition.She does not take any blood thinners. Related Data Home Medications ?Medication ?Instructions ?Recorded ?Confirmed aspirin 81 mg chewable tablet 81 mg PO DAILY 02/02/23 11/21/23 atorvastatin 80 mg tablet 80 mg PO .qhs 02/02/23 11/21/23 isosorbide mononitrate 30 mg 30 mg PO DAILY 02/02/23 11/21/23 tablet,extended release 24 hr nitroglycerin 0.4 mg sublingual 0.4 mg sublingual Q5M PRN chest 02/02/23 11/21/23 tablet pain omeprazole 20 mg capsule,delayed 20 mg PO DAILY 05/09/23 11/21/23 release bupropion HCl 150 mg 24 hr tablet, 150 mg PO DAILY 06/20/23 11/21/23 extended release ipratropium 0.5 mg-albuterol 3 mg 3 ml inhalation Q4H PRN shortness 11/21/23 11/21/23 (2.5 mg base)/3 mL nebulization of breath soln levothyroxine 50 mcg tablet 50 mcg PO DAILY 11/21/23 11/21/23 (Synthroid) magnesium 250 mg tablet 250 mg PO BID 11/21/23 11/21/23 metformin 500 mg tablet 500 mg PO BID 11/21/23 11/21/23 tiotropium 2.5 mcg-olodaterol 2.5 2 inh inhalation DAILY 11/21/23 11/21/23 mcg/actuation mist for inhalation (Stiolto Respimat) Previous Rx's ?Medication ?Instructions ?Recorded albuterol sulfate 90 mcg/actuation 2 inh inhalation Q4H PRN shortness 02/02/23 breath activated powder inhaler of breath #1 ea diltiazem HCl 240 mg 240 mg PO DAILY #30 caps 06/21/23 capsule,extended release 24 hr (Cardizem CD) metoprolol succinate 100 mg 100 mg PO QD #30 tabs 06/21/23 tablet,extended release 24 hr Allergies Allergy/AdvReac Type Severity Reaction Status Date / Time No Known Drug Allergies Allergy Verified 10/16/23 10:23 Opioid HPI Opioid Management Most Recent Opioid Data: Last Pain Scale 8 06/09/23 12:10 Review of Systems ROS Constitutional Denies: fever or chills Ears, nose, mouth, and throat Reports: nasal congestion; Denies: throat pain Cardiovascular Denies: chest pain Respiratory Denies: shortness of breath or cough Gastrointestinal Denies: nausea or vomiting Musculoskeletal Denies: back pain Integumentary/Breast Denies: rash Neurological Denies: headache Hematologic/Lymphatic Denies: easy bruising or easy bleeding [facility] Medical History (Updated 11/29/23 @ 17:26 by CLEMENT Mckeon) Hypomagnesemia ?E83.42 - Hypomagnesemia (ICD-10) Acute hypokalemia ?E87.6 - Hypokalemia (ICD-10) Tachycardia ?R00.0 - Tachycardia, unspecified (ICD-10) Elevated troponin ?R79.89 - Other specified abnormal findings of blood chemistry (ICD-10) Pneumonia ?J18.9 - Pneumonia, unspecified organism (ICD-10) Bilateral pneumonia ?J18.9 - Pneumonia, unspecified organism (ICD-10) Lung cancer ?C34.90 - Malignant neoplasm of unspecified part of unspecified bronchus or lung (ICD-10) Tobacco abuse ?Z72.0 - Tobacco use (ICD-10) CAD (coronary artery disease) ?I25.10 - Atherosclerotic heart disease of [place] coronary artery without angina pectoris (ICD-10) IBS (irritable colon syndrome) ?K58.9 - Irritable bowel syndrome without diarrhea (ICD-10) Hernia ?K46.9 - Unspecified abdominal hernia without obstruction or gangrene (ICD-10) COPD (chronic obstructive pulmonary disease) ?J44.9 - Chronic obstructive pulmonary disease, unspecified (ICD-10) Hyperlipemia ?E78.5 - Hyperlipidemia, unspecified (ICD-10) HTN (hypertension) ?I10 - Essential (primary) hypertension (ICD-10) Emphysema lung ?J43.9 - Emphysema, unspecified (ICD-10) Surgical History H/O colectomy ?Z90.49 - Acquired absence of other specified parts of digestive tract (ICD-10) History of PTCA ?Z98.61 - Coronary angioplasty status (ICD-10) H/O: hysterectomy ?Z90.710 - Acquired absence of both cervix and uterus (ICD-10) Family History Mother Family history of CHF (congestive heart failure) Family history of diabetes mellitus Family history of hypertension Family history of myocardial infarction Social History Within the past year, how often did you have a drink containing alcohol: never Score interpretation: A score less than 3 is consistent with normal alcohol consumption. Smoking status: Former smoker Second hand tobacco smoke exposure: Yes Non-prescribed substance use: denies use Previous occupational history: Does not work Known occupational exposures/hazards: No Highest level of school completed/degree received: high school graduate Do you want help with school or training: No Are you now , , , , never or living with a partner: In a typical week, how many times do you talk on the telephone with family, friends, or neighbors: never How often do you get together with friends or relatives: never How often do you attend lutheran or sikhism services: never Do you belong to any clubs or organizations such as lutheran groups unions, fraternal or athletic groups, or school groups: no Total score: 1 Score interpretation: A score of less than or equal to 1 indicates the most socially isolated. Little interest or pleasure in doing things: several days Feeling down, depressed, or hopeless: several days Feel stressed/tense/nervous/anxious/difficulty sleeping: very much Life stressors: other Life stressor details: Due to disability, difficulty making decisions: No Do you think of yourself as: straight/heterosexual Gender Identity: female Exam Narrative Exam Narrative: Gen.: Awake, alert, in no distress Head: Normocephalic, atraumatic ENT: Moist mucous membranes, Mild edema of the face, no swelling of the lips or tongue. Airway widely open and patent. Respiratory: No respiratory distress, Speaks in full sentences, Oxygen by nasal cannula Cardio: Regular rate and rhythm Extremities: Moves extremities equally, no pedal edema Psych: Normal mood and affect Neuro: No focal neuro deficit Skin: Warm, dry, intact Constitutional Vital Signs, click to edit/add: Last Vital Signs Temp 97.9 F 11/29/23 16:48 Pulse 67 11/29/23 16:48 Resp 18 11/29/23 16:48 BP 141/88 11/29/23 16:48 Pulse Ox 95 11/29/23 16:48 O2 Del Method Nasal Cannula 11/29/23 16:48 O2 Flow Rate 2 11/29/23 16:48 Course Vital Signs Vital signs: Vital Signs Temperature 97.9 F 11/29/23 16:48 Pulse Rate 67 11/29/23 16:48 Respiratory Rate 18 11/29/23 16:48 Blood Pressure 141/88 11/29/23 16:48 Pulse Oximetry 95 11/29/23 16:48 Oxygen Delivery Method Nasal Cannula 11/29/23 16:48 Oxygen Delivery Flow Rate 2 11/29/23 16:48 Temperature 97.9 F 11/29/23 16:48 Pulse Rate 67 11/29/23 16:48 Respiratory Rate 18 11/29/23 16:48 Blood Pressure 141/88 11/29/23 16:48 Pulse Oximetry 95 11/29/23 16:48 Oxygen Delivery Method Nasal Cannula 11/29/23 16:48 Oxygen Delivery Flow Rate 2 11/29/23 16:48 Medical Decision Making MDM Narrative Medical decision making narrative: I discussed the case with Dr. Mcdowell for vascular surgery. He is in agreement that the patient should be transferred for definitive evaluation and management at tertiary care facility. He excepted the admission to [facility]. Discussed with the transfer line, patient will go to the emergency department to Dr. Munson By ambulance. Patient will be started on heparin drip, a bolus was given as well. EKG, basic lab studies were obtained. Patient sent by ambulance with alarm security or surveillance monitor, her normal oxygen by nasal cannula and heparin drip. She declined any medication for pain or nausea in the ER. She is stable at time of transfer. Critical care time 35 minutes. Medical Records Medical records reviewed: Yes I reviewed the patient's medical records Lab Data Lab results reviewed: Yes I reviewed the patient's lab results Labs: Lab Results 11/29/23 Range/Units 17:05 WBC 12.0 H (4.0-11.0) 10^3/uL RBC 4.42 (4.20-5.40) 10^6/uL Hgb 12.6 (12.0-16.0) g/dL Hct 39.4 (36.0-48.0) % MCV 89.1 (81.0-99.0) fL MCH 28.5 (26.7-34.0) pg MCHC 32.0 (29.9-35.2) g/dL RDW 18.4 H (11.0-15.0) % Plt Count 355 (150-450) 10^3/uL MPV 10.0 (9.5-13.5) fL Neut % (Auto) 71.9 (43.0-75.0) % Lymph % (Auto) 17.4 L (20.5-60.0) % [place] % (Auto) 9.4 (1.7-12.0) % Eos % (Auto) 0.4 L (0.9-7.0) % Baso % (Auto) 0.6 (0.2-2.0) % Neut # (Auto) 8.6 H (1.4-6.5) 10^3/uL Lymph # (Auto) 2.1 (1.2-3.8) 10^3/uL [place] # (Auto) 1.1 H (0.3-0.8) 10^3/uL Eos # (Auto) 0.1 (0.0-0.7) 10^3/uL Baso # (Auto) 0.1 (0.0-0.1) 10^3/uL Abs Immat Gran (auto) 0.04 H (0.00-0.03) 10^3/uL Imm/Tot Granulo (auto) 0.3 (0.0-0.5) % Imaging Data CT scan - chest: Attestation: I have reviewed the pertinent imaging results. 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 TECHNIQUE: Multi-planar CT images were created with IV contrast. Axial, Coronal, and Sagittal images. Dose reduction techniques were achieved by using automated exposure control and/or adjustment of mA and/or kV according to patient size and/or use of iterative reconstruction technique. 3-D reconstruction was performed on a separate workstation. FINDINGS: VASCULATURE: No pulmonary embolism or abnormal opacity. LUNGS: Consolidation of the segments of the left lower lobe, but patent bronchi throughout. PLEURA: Left pleural effusion 1.0 cm in thickness. SHANIA: No mass or adenopathy. MEDIASTINUM: Poorly defined margins of the esophagus and suspected mild wall thickening. CARDIAC: No enlargement, pericardial effusion, or pericardial thickening. AORTA: No aneurysm or dissection. VENA CAVA: Near-complete occlusion of an approximately 2 cm segment of the superior vena cava just beyond the brachiocephalic confluence and a very thin channel contrast passing through this area. Superior vena cava is patent distal to this area with contrast within the superior vena cava. Blood flow through the azygos vein emptying into the superior vena cava. Additional collateral flow provided blood return to the right atrium. CHEST WALL: Haziness and stranding throughout the axilla bilaterally without definable lymph nodes or mass. Port-A-Cath within upper anterior right chest wall tip just beyond the right brachiocephalic confluence. BONES: No bone lesion or fracture. LIMITED ABDOMEN: No suspicious findings. Limited images of the upper abdomen. OTHER: Negative. IMPRESSION: 1. There is a 2 cm long segment of complete to near complete occlusion of the superior vena cava just beyond the brachial cephalic confluence. 2. Partial consolidation of left lower lobe as seen on prior study; infiltrates versus atelectasis. No appreciable mass or bronchial obstruction. 3. New, small left pleural effusion 1 cm in thickness. 4. Poorly defined margins of the esophagus with possible wall thickening; nonspecific. Esophagitis? Electronically authenticated by: MARIANN MARQUES Date: 11/29/2023 16:27 IMPRESSION: 1. There is a 2 cm long segment of complete to near complete occlusion of the superior vena cava just beyond the brachial cephalic confluence. 2. Partial consolidation of left lower lobe as seen on prior study; infiltrates versus atelectasis. No appreciable mass or bronchial obstruction. 3. New, small left pleural effusion 1 cm in thickness. 4. Poorly defined margins of the esophagus with possible wall thickening; nonspecific. Esophagitis? Electronically authenticated by: MARIANN JERALD Date: 11/29/2023 16:27 ECG Data Attestation: I personally reviewed and interpreted this ECG as follows: (Normal sinus rhythm at a rate of 64, no acute ST elevation, no ectopy. EKG reviewed by attending physician.) Discharge Plan Discharge Chief Complaint: Recheck/Abnormal Lab/Rx Clinical Impression: Superior vena cava syndrome Patient Disposition: [facility] Time of Disposition Decision: 17:26 Discharge Location: [facility] Condition: Good Mode of Transportation: EMS Prescriptions / Home Meds: No Action omeprazole 20 mg capsule,delayed release(DR/EC) 20 mg PO DAILY levothyroxine [Synthroid] 50 mcg tablet 50 mcg PO DAILY metformin 500 mg tablet 500 mg PO BID Stiolto Respimat 2.5-2.5 mcg/actuation mist 2 inh inhalation DAILY ipratropium-albuterol 0.5 mg-3 mg(2.5 mg base)/3 mL solution for nebulization 3 ml inhalation Q4H PRN (Reason: shortness of breath) magnesium 250 mg tablet 250 mg PO BID aspirin 81 mg tablet,chewable 81 mg PO DAILY atorvastatin 80 mg tablet 80 mg PO .qhs isosorbide mononitrate 30 mg tablet extended release 24 hr 30 mg PO DAILY nitroglycerin 0.4 mg tablet, sublingual 0.4 mg sublingual Q5M PRN (Reason: chest pain) albuterol sulfate 90 mcg/actuation aerosol powdr breath activated 2 inh inhalation Q4H PRN (Reason: shortness of breath) Qty: 1 0RF bupropion HCl 150 mg tablet extended release 24 hr 150 mg PO DAILY metoprolol succinate 100 mg Tablet Extended Release 24 Hr 100 mg PO QD Qty: 30 11RF diltiazem HCl [Cardizem CD] 240 mg capsule,extended release 24hr 240 mg PO DAILY Qty: 30 11RF Print Language: Ugandan Referrals: Shaikh Morfin MD [Primary Care Provider] - 1 week
[2023-11-29] MEDS: HEPARIN SODIUM,PORCINE/D5W 25,000 UNIT/500 ML IV.SOLN 22 UNIT IV (17:13)
[2023-11-29] MEDS: HEPARIN SODIUM (PORCINE) 5,000 UNIT/ML VIAL 4800 UNIT IV (17:13)
[2023-11-29 17:14] LABS: Basophils Absolute Auto 0.1 10^3/uL (0.0-0.1); Basophils Percent Auto 0.6 % (0.2-2.0); Eosinophils Absolute Auto 0.1 10^3/uL (0.0-0.7); Eosinophils Percent Auto 0.4 % (0.9-7.0); Hematocrit 39.4 % (36.0-48.0); Hemoglobin 12.6 g/dL (12.0-16.0); Immature Granulocytes Abs Auto 0.04 10^3/uL (0.00-0.03); Immature Granulocytes Pct Auto 0.3 % (0.0-0.5); Lymphocytes Absolute Auto 2.1 10^3/uL (1.2-3.8); Lymphocytes Percent Auto 17.4 % (20.5-60.0); Mean Corpuscular Hemoglobin 28.5 pg (26.7-34.0); Mean Corpuscular Volume 89.1 fL (81.0-99.0); Monocytes Absolute Auto 1.1 10^3/uL (0.3-0.8); Monocytes Percent Auto 9.4 % (1.7-12.0); Neutrophils Absolute Auto 8.6 10^3/uL (1.4-6.5); Neutrophils Percent Auto 71.9 % (43.0-75.0); Platelet Count 355 10^3/uL (150-450); Red Blood Count 4.42 10^6/uL (4.20-5.40); Red Cell Distribution Width 18.4 % (11.0-15.0)
--- NOTE | 2023-11-29 17:19 | ECG_ITS ---
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
[2023-11-29 17:31] LABS: Alanine Aminotransferase 24 U/L (14-59); Albumin Level 3.9 g/dL (3.4-5.0); Alkaline Phosphatase 228 U/L (46-116); Anion Gap 19.2; Aspartate Amino Transferase 23 U/L (15-37); BUN Creatinine Ratio 15.6; Bilirubin Total 0.5 mg/dL (0.2-1.0); Calcium 9.2 mg/dL (8.5-10.1); Carbon Dioxide 24.3 mmol/L (21.0-32.0); Chloride 101 mmol/L (98-107); Estimated GFR (African America >60 (>=60); Estimated GFR (Non-African Ame >60 (>=60); Globulin 4.1 g/dL; Glucose 95 mg/dL (74-106); Potassium 3.5 mmol/L (3.5-5.1); Sodium 141 mmol/L (136-145)
[2023-11-29 17:33] LABS: INR 1.03; Prothrombin Time 10.9 sec (9.0-11.6)
== END 2023-11-29 17:36 | disposition short-term general hospital (02) ==
PROVIDERS: Physician Assistant; Emergency Provider Emergency Medicine; PCP Internal Medicine
DX: I87.1 Compression of vein (principal); J90 Pleural effusion, not elsewhere classified; Z99.81 Dependence on supplemental oxygen; C34.90 Malignant neoplasm of unspecified part of unspecified bronchus or lung; I25.10 Atherosclerotic heart disease of native coronary artery without angina pectoris; K58.9 Irritable bowel syndrome, unspecified; E78.5 Hyperlipidemia, unspecified; I10 Essential (primary) hypertension; J43.9 Emphysema, unspecified; Z90.49 Acquired absence of other specified parts of digestive tract; Z79.82 Long term (current) use of aspirin; Z79.899 Other long term (current) drug therapy; Z79.890 Hormone replacement therapy; Z79.84 Long term (current) use of oral hypoglycemic drugs; Z90.710 Acquired absence of both cervix and uterus; Z98.61 Coronary angioplasty status; Z87.891 Personal history of nicotine dependence
CPT/HCPCS: 36415; 71275; 80053; 85025; 85610; 93005; 96374; 99285; Q9967

== ENCOUNTER 2023-12-10 16:29 | Emergency (ER) | payer OTHER, SELFPAY ==
[2023-12-10 16:34] VITALS: BP 113/82; PULSE 112; TEMP 36.8; O2SAT 97; BMI 28.3
--- OUTSIDE RECORDS SUMMARY | 2023-12-10 16:38 | XMS_ITS | CCD ---
Author Organization [facility] Care Team Providers Care Rn Labor And Delivery Name Role Phone MD Viviane Loco Admit Provider MD Viviane Loco Attending Provider [phone] BURTON Cuellar Other Provider Unavailable DO Teo Gongora Other Provider [phone] MD Bolivar Magana Other Provider [phone] MD Brett Price Other Provider MD Tonio Phillip Other Provider MD Aris Mckeon Other Provider KATHI Weiss Other Provider MD Nitza Ventura Other Provider MD Karen Mcdowell Other Provider MD Charanjit Mckinney Other Provider DO Aris Stewart Primary Care Provider [phone] Aris Stewart Unavailable Unavailable Unavailable Unavailable Unavailable ALLY SANTORO Attending Unavailable ALLY SANTORO Admitting Unavailable PAT, DR UHRST Primary Care Unavailable JERALD, DR MARIANN Napier Consulting Unavailable ALLY SANTORO Consulting Unavailable YESIKA URBINA Consulting Unavailable TEMPLE, DR HURST Admitting Unavailable PAT, DR HURST Consulting Unavailable TEMPLE, DR HURST Attending Unavailable TEMPLE, DR HURST Primary Care Unavailable Gunner, Abelardo Consulting Unavailable TEMPLE, DR HURST Attending Unavailable TEMPLE, DR HURST Admitting Unavailable TEMPLE, DR HURST Primary Care Unavailable MANISTIQUE, DR ABELARDO Johnson Consulting Unavailable HOUSE, DR [...] DR HURST Primary Care Unavailable JAMIE NEGRON Unavailable Pat, DO Hurst Primary Care Provider DO Teo Gongora Attending Provider [phone] Aris Stewart [facility] Unavailable Rolan, Teo Aguilar Attending Unavailable Rolan, Teo Aguilar Admitting Unavailable [facility] Aris [facility] Provider Pipo, Daveamed A Unavailable Rolan, Dr. Brett Aguilar Attending Unava ilable Pat, Dr. Aris Chau [facility] Unava ilable Rolan, Dr. Brett Aguilar Referring Unava ilable Rolan, Dr. Brett Aguilar Attending Unava ilable Pat, Dr. Aris Chau [facility] Unava ilable Rolan, Dr. Brett Aguilar Attending Unava ilable Pat, Dr. Aris Chau [facility] Unava ilable Rolan, Dr. Brett Aguilar Attending Unava ilable Pat, Dr. Aris Chau [facility] Unava ilable Rolan, Dr. Brett Aguilar Referring Unava ilable Rolan, Dr. Brett Aguilar Attending Unava ilable Pat, Dr. Aris Chau [facility] Unava illinus Foss MD, Mohamed A Unavailable PIPO, DAVEAMED Referring Unavailable OMBALLI, MOHAMED Referring Unavailable OMBALLI, MOHAMED Referring Unavailable OMBALLI, MOHAMED Attending Unavailable JENNIFER, ARCHANA Referring Unavailable OMBALLI, MOHAMED Attending Unavailable OMBALLI, MOHAMED Referring Unavailable MARIELLE RANDHAWA Referring Unavailable OMBALLI, MOHAMED Attending Unavailable JENNIFER, APOORA Referring Unavailable OMBALLI, MOHAMED Referring Unavailable OMBALLI, MOHAMED Attending Unavailable OMBALLI, MOHAMED Referring Unavailable OMBALLI, MOHAMED Referring Unavailable House DO, Aris Chau Primary Care Provider ISABEL CAGLE Attending Unavailable HOUSE, ARIS CHAU Primary Care Unavailab le House Sr., DO, Aris Chau Primary Care Prov ider LITTLE, SALEEM Attending Unavailable JENNIFER, ARCHANA Referring Unavailable HOUSE SR, ARIS P Primary Care Unavailable LITTLE, SALEEM Referring Unavailable HOUSE SR, ARIS P Primary Care Unavailable LITTLE, SALEEM Referring Unavailable HOUSE SR, ARIS P Primary Care Unavailable HOUSE SR, ARIS P Primary Care Unavailable LITTLE, SALEEM Referring Unavailable HOUSE SR, ARIS P Primary Care Unavailable LITTLE, SALEEM Referring Unavailable HOUSE SR, ARIS P Primary Care Unavailable LITTLE, SALEEM Referring Unavailable HOUSE SR, ARIS P Primary Care Unavailable LITTLE, SALEEM Referring Unavailable HOUSE SR, ARIS P Primary Care Unavailable LITTLE, SALEEM Referring Unavailable HOUSE SR, ARIS P Primary Care Unavailable LITTLE, SALEEM Attending Unavailable HOUSE SR, ARIS P Primary Care Unavailable LITTLE, SALEEM Referring Unavailable HOUSE SR, ARIS P Primary Care Unavailable LITTLE, SALEEM Referring Unavailable HOUSE SR, ARIS P Primary Care Unavailable LITTLE, SALEEM Attending Unavailable HOUSE SR, ARIS P Primary Care Unavailable LITTLE, SALEEM Referring Unavailable HOUSE SR, ARIS P Primary Care Unavailable LITTLE, SALEEM Referring Unavailable HOUSE SR, ARIS P Primary Care Unavailable LITTLE, SALEEM Referring Unavailable HOUSE SR, ARIS P Primary Care Unavailable LITTLE, SALEEM Attending Unavailable HOUSE SR, ARIS P Primary Care Unavailable LITTLE, SALEEM Attending Unavailable HOUSE SR, ARIS P Primary Care Unavailable LITTLE, SALEEM Referring Unavailable HOUSE SR, ARIS P Primary Care Unavailable LITTLE, SALEEM Referring Unavailable HOUSE SR, ARIS P Primary Care Unavailable LITTLE, SALEEM Attending Unavailable HOUSE SR, ARIS P Primary Care Unavailable LITTLE, SALEEM Attending Unavailable LITTLE, SALEEM Referring Unavailable HOUSE SR, ARIS P Primary Care Unavailable LITTLE, SALEEM Referring Unavailable HOUSE SR, ARIS P Primary Care Unavailable LITTLE, SALEEM Attending Unavailable HOUSE SR, ARIS P Primary Care Unavailable LITTLE, SALEEM Referring Unavailable HOUSE SR, ARIS P Primary Care Unavailable LITTLE, SALEEM Referring Unavailable HOUSE SR, ARIS P Primary Care Unavailable HOUSE SR, ARIS P Primary Care Unavailable LITTLE, SALEEM Referring Unavailable HOUSE SR, ARIS P Primary Care Unavailable LITTLE, SALEEM Attending Unavailable HOUSE SR, ARIS P Primary Care Unavailable LITTLE, SALEEM Referring Unavailable HOUSE SR, ARIS P Primary Care Unavailable LITTLE, SALEEM Referring Unavailable HOUSE SR, ARIS P Primary Care Unavailable LITTLE, SALEEM Referring Unavailable HOUSE SR, ARIS P Primary Care Unavailable LITTLE, SALEEM Referring Unavailable HOUSE SR, ARIS P Primary Care Unavailable LITTLE, SALEEM Referring Unavailable HOUSE SR, ARIS P Primary Care Unavailable LITTLE, SALEEM Attending Unavailable LITTLE, SALEEM Referring Unavailable HOUSE SR, ARIS P Primary Care Unavailable HOUSE SR, ARIS P Primary Care Unavailable HOUSE SR, ARIS P Primary Care Unavailable LITTLE, SALEEM Attending Unavailable HOUSE SR, ARIS P Primary Care Unavailable LITTLE, SALEEM Referring Unavailable HOUSE SR, ARIS P Primary Care Unavailable LITTLE, SALEEM Referring Unavailable HOUSE SR, ARIS P Primary Care Unavailable LITTLE, SALEEM Attending Unavailable HOUSE SR, ARIS P Primary Care Unavailable LITTLE, SALEEM Referring Unavailable HOUSE SR, ARIS P Primary Care Unavailable LITTLE, SALEEM Referring Unavailable HOUSE SR, ARIS P Primary Care Unavailable LITTLE, SALEEM Referring Unavailable HOUSE SR, ARIS P Primary Care Unavailable LITTLE, SALEEM Attending Unavailable HOUSE SR, ARIS P Primary Care Unavailable HOUSE SR, ARIS P Primary Care Unavailable LITTLE, SALEEM Referring Unavailable LITTLE, SALEEM Referring Unavailable HOUSE SR, ARIS P Primary Care Unavailable LITTLE, SALEEM Referring Unavailable HOUSE SR, ARIS P Primary Care Unavailable LITTLE, SALEEM Attending Unavailable JENNIFER, ARCHANA Referring Unavailable HOUSE SR, ARIS P Primary Care Unavailable FAWWAD, SPARROW Attending Unavailable FAWWAD, SPARROW Attending Unavailable FAWWAD, SPARROW Attending Unavailable HOUSE, ARIS P Referring Unavailable FAWWAD, SPARROW Primary Care Unavailable FAWWAD, SPARROW Primary Care Unavailable NADIRA DIEZ Attending Unavailable ABRAHAM VERMA Consulting Unavailable WINSTON TEJEDA A Admitting Unavailable GUILHERME LEROY Consulting Unavailable JENNIFER, ARCHANA Consulting Unavailable JIGNESH FERRERA Consulting Unavailable ZO ORANTES Consulting Unavailable ANN CALLES Consulting Unavailable JACQUES PELAEZ Consulting Unavailable CHRISTELLE SCOTT Consulting Unavailable SERGEY GLEASON Consulting Unavailable COURT LICONA Referring Unavailable FAWWAD, SPARROW Primary Care Unavailable COURT LICONA Referring [facility]available [facility] Primary Care Unavailable Allergies Allergy Classification Reported Allergen(s) Allergy Type Date of Onset Reaction(s) Facility (5 sources) Codeine; 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: [Codeine] Drug Allergy 06-16-2016 [facility] Medications Current Medications Medication Drug Class(es) [...] daily Omeprazole Active 40 MG PO Daily 56 56 December 30, 2022 12:00am Omeprazole Magne sium 20 mg tablet Take 40 mg by mouth. 0 Active take 1 capsule by mo uth twice daily before mealtime omeprazole (PriLOSEC) 20 [...] to 7 days. May alternate with Tylenol/Motrin. [id number] 200 actuat albuterol 0.09 mg/actuat metered dose [...] Start: 02-17-2022 take 1 tablet by matt th twice daily Amoxicillin-Pot Clavulanate 875-125 MG Oral [...] / neomycin 3.5 mg/ml / polymyxin b 11241 unt/ml otic suspension (2 sources) Aminoglycoside Antibacterial, Polymyxin-class Antibacterial, Corticosteroid Start: 02-18-2022 [id number]-[id number]-SW 3.5-03772-4 Otic Suspension Quantity: 10 Refills: 0 Ordered: [...] (2 sources) Quinolone Antimicrobial Star t: 07-28 take 1 tablet by mouth once daily [...] (20 sources) beta-Adrenergic Olga Star t: 11-14 23 End: 06-28 23 take 4 tablets by mouth twice daily [...] (NSTEMI) myocardial infarction] Onset: 2 12-14-2021 Chronic Bacterial infection; unspecified site (2 sources) Bacteremia; 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: [Other staphylococcus as the cause of diseases classified elsewhere] Onset: 4 Episodic Cancer of bronchus; lung (8 sources) Malignant [...] [Coronary atherosclerosis of unspecified type of vessel, sycuan or graft] Onset: 2 12-30-2022 Chronic Coronary atherosclerosis and other heart disease (6 sources) Patient post percutaneous transluminal coronary angioplasty; 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: [Percutaneous transluminal coronary angioplasty status] Onset: 2 07-07-2023 Episodic Disorders of lipid metabolism (4 sources) Mixed hyperlipidemia; 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: [Mixed hyperlipidemia] Onset: 3 07-10-2023 Chronic Essential hypertension (7 sources) Essential (primary) hypertension; 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: [Essential hypertension] Onset: 2 12-30-2022 Chronic Nutritional deficiencies (1 source) Vitamin D deficiency, unspecified; 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: [Vitamin D deficiency, unspecified] Onset: 4 Chronic Other aftercare (1 source) 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; 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: [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 OF ASPIRIN] Onset: 2 Episodic Other and ill-defined heart disease (4 sources) Left ventricular hypertrophy; 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: [Cardiomegaly] Onset: 3 07-07-2023 Chronic Other circulatory disease (3 sources) Patient post angioplasty; 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: [Other postprocedural status] Episodic Other connective tissue disease (1 source) Muscle finding; 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: [Myalgia, unspecified site] 04-18-2023 Episodic Other diseases of veins and lymphatics (1 source) Compression of vein; 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: [Compression of vein] Onset: 4 Episodic Other ear and sense organ disorders [...] 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: [Cough] Onset: 3 07-07-2023 Episodic Other lower respiratory disease (3 sources) Shortness of breath; 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: [Shortness of breath] Onset: 3 Episodic Other nutritional; endocrine; and metabolic disorders [...] [Other hypertrophic cardiomyopathy] Onset: 3 12-30-2022 Chronic Pneumonia (except that caused by tuberculosis or sexually transmitted disease) (1 source) Pneumonia, unspecified organism; 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: [Pneumonia, unspecified organism] Onset: 4 Episodic Regional enteritis and ulcerative colitis (1 source) Crohn's disease, unspecified, without complications; 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: [CROHNS DISEASE UNS W/O COMP] Onset: 2 Chronic Residual codes; unclassified (6 sources) History of syncope; 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: [Other specified personal history presenting hazards to health] Episodic Residual codes; unclassified (3 sources) Body mass index 20-24 - normal; 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: [Body Mass Index between 19-24, adult] Episodic Residual codes; unclassified (1 source) Pain, unspecified; 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: [Pain, unspecified] Onset: 4 Episodic Secondary malignancies (1 source) Secondary malignant neoplasm of brain; 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: [Secondary malignant neoplasm of brain] 03-10-2023 Chronic Secondary malignancies (1 source) Secondary malignant neoplasm of brain; 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: [Secondary malignant neoplasm of brain] Onset: 4 Chronic Substance-related disorders (12 sources) Smoker; 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: [Nicotine dependence, unspecified, uncomplicated] Onset: 2 12-15-2021 Chronic Comment on above: 1/2 ppd; Thyroid disorders (1 source) Hypothyroidism, unspecified; 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: [Hypothyroidism, unspecified] Onset: 4 Chronic Unclassified (4 sources) COUGH, UNSPECIFIED; 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: [COUGH, UNSPECIFIED] Onset: 2 Unclassified (4 sources) CONTACT W/AND (SUSP) EXPOS COVID-19; 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: [CONTACT W/AND (SUSP) EXPOS COVID-19] Onset: 2 Unclassified (1 source) 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; 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: [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] Onset: 3 Unclassified (1 source) Supraventricular tachycardia, unspecified; 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: [Supraventricular tachycardia, unspecified] Onset: 3 Unclassified (1 source) Evaluation of Abnormal Diagnostic Test Onset: 4 Unclassified (1 source) RHOND Onset: 4 Viral infection (8 sources) Viral disease; 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: [...] 02-17-2022 Episodic Other aftercare (1 source) Other oil heaterman (current) drug therapy; 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: [OTH 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 CURRENT DRUG THERAPY] Onset: 02-21-2022 Episodic Other [...] Test Name Value Interpretation Reference Range Facility CBC AND AUTO DIFFon 12-07-19 24 Anisocytosis Ql (Bld) 2+ Abnormal NONE [facility] Comment on above: Performed By: #### 3 2132-1 #### [facility] ([id number]) [address], [address] [place] [address] Band form neutrophils/100 WBC (Bld) 1.0 % Normal [facility] Comment on above: Performed By: #### 3 2132-1 #### [facility] ([id number]) [address], [address] [place] [address] ANTELMO 1+ Abnormal NONE [facility] Comment on above: Performed By: #### 3 2132-1 #### [facility] ([id number]) [address], [address] [place] [address] Erythrocyte distribution width (RBC) [Ratio] 20.7 % High 11.5-15.0 [facility] Comment on above: Performed By: #### 3 2132-1 #### [facility] ([id number]) [address], [address] [place] [address] Hematocrit (Bld) [Volume fraction] 32.6 % Low 35-47 [facility] Comment on above: Performed By: #### 3 2132-1 #### [facility] ([id number]) [address], [address] [place] [address] Hemoglobin (Bld) [Mass/Vol] 10.4 g/dL Low 11.7-15.5 [facility] Comment on above: Performed By: #### 3 2132-1 #### [facility] ([id number]) [address], [address] [place] [address] Lymphocytes (Bld) [#/Vol] 1.1 10*3/uL Normal 1.0-3.5 [facility] Comment on above: Performed By: #### 3 2132-1 #### [facility] ([id number]) [address], [address] [place] [address] Lymphocytes/100 WBC (Bld) 5.0 % Normal [facility] Comment on above: Performed By: #### 3 2132-1 #### [facility] ([id number]) [address], [address] [place] [address] MCH (RBC) [Entitic mass] 28.6 pg Normal 27-34 [facility] Comment on above: Performed By: #### 3 2132-1 #### [facility] ([id number]) [address], [address] [place] [address] MCHC (RBC) [Mass/Vol] 32.1 g/dL Normal 32-36 [facility] Comment on above: Performed By: #### 3 2132-1 #### [facility] ([id number]) [address], [address] [place] [address] MCV (RBC) [Entitic vol] 89 fL Normal 80-100 [facility] Comment on above: Performed By: #### 3 2132-1 #### [facility] ([id number]) [address], [address] [place] [address] Metamyelocytes/100 WBC (Bld) 2.0 % Normal [facility] Comment on above: Performed By: #### 3 2132-1 #### [facility] ([id number]) [address], [address] [place] [address] Monocytes (Bld) [#/Vol] 1.6 10*3/uL High 0-0.9 [facility] Comment on above: Performed By: #### 3 2132-1 #### [facility] ([id number]) [address], [address] [place] [address] Monocytes/100 WBC (Bld) 7.0 % Normal [facility] Comment on above: Performed By: #### 3 2132-1 #### [facility] ([id number]) [address], [address] [place] [address] Neutrophils (Bld) [#/Vol] 19.3 10*3/uL High 1.5-6.6 [facility] Comment on above: Performed By: #### 3 2132-1 #### [facility] ([id number]) [address] [place] [address] OVALOCYTE 1+ Abnormal NONE [facility] Comment on above: Performed By: #### 3 2132-1 #### [facility] ([id number]) [address] [place] [address] Platelet mean volume (Bld) [Entitic vol] 8.9 fL Normal 7-12 [facility] Comment on above: Performed By: #### 3 2132-1 #### [facility] ([id number]) [address], [address] [place] [address] Platelets (Bld) [#/Vol] 242 10*3/uL Normal 150-450 [facility] Comment on above: Performed By: #### 3 2132-1 #### [facility] ([id number]) [address], [address] [place] [address] RBC COUNT 3.65 X10E12/L Low 3.80-5.20 [facility] Comment on above: Performed By: #### 3 2132-1 #### [facility] ([id number]) [address], [address] [place] [address] SEG NEUTROPHIL 85.0 % Normal [facility] Comment on above: Performed By: #### 3 2132-1 #### [facility] ([id number]) [address], [address] [place] [address] WBC (Bld) [#/Vol] 22.5 10*3/uL High 4.0-11.0 [facility] Comment on above: Performed By: #### 3 2132-1 #### [facility] ([id number]) [address], [address] [place] [address] COMPREHENSIVE METABOLIC PANE Faisal 12-07-2023 Albumin [Mass/Vol] 3.8 g/dL Normal 3.2-5.3 [facility] Comment on above: Performed By: #### 3 2132-1 #### [facility] ([id number]) [address], [address] [place] [address] ALP [Catalytic activity/Vol] 126 U/L Normal 39-130 [facility] Comment on above: Performed By: #### 3 2132-1 #### [facility] ([id number]) [address] [place] [address] ALT [Catalytic activity/Vol] 18 U/L Normal 0-31 [facility] Comment on above: Performed By: #### 3 2132-1 #### [facility] ([id number]) [address], [address] [place] [address] Anion gap [Moles/Vol] 10 mmol/L Normal 5-15 [facility] Comment on above: Performed By: #### 3 2132-1 #### [facility] ([id number]) [address], [address] [place] [address] AST [Catalytic activity/Vol] 19 U/L Normal 0-41 [facility] Comment on above: Performed By: #### 3 2132-1 #### [facility] ([id number]) [address], [address] [place] [address] Bilirubin [Mass/Vol] 0.2 mg/dL Low 0.3-1.2 [facility] Comment on above: Performed By: #### 3 2132-1 #### [facility] ([id number]) [address], [address] [place] [address] Calcium [Mass/Vol] 8.7 mg/dL Normal 8.5-10.5 [facility] Comment on above: Performed By: #### 3 2132-1 #### [facility] ([id number]) [address], [address] [place] [address] Chloride [Moles/Vol] 107 mmol/L Normal 98-109 [facility] Comment on above: Performed By: #### 3 2132-1 #### [facility] ([id number]) [address], [address] [place] [address] CO2 [Moles/Vol] 23 mmol/L Normal 22-32 [facility] Comment on above: Performed By: #### 3 2132-1 #### [facility] ([id number]) [address], [address] [place] [address] Creatinine [Mass/Vol] 0.71 mg/dL Normal 0.40-1.00 [facility] Comment on above: Result Comment: METH OD TRACEABLE TO IDMS STANDARD Performed By: #### 3 2132- #### [facility] ([id number]) [address], [address] [place] [address] eGFR (CKD-EPI) NON-RACE DEPENDENT >90 Normal >59 [facility] Comment on above: Result Comment: Reported eGFR is based on the CKD-EPI 2020 equation that does not use a race coefficient. Performed By: #### 3 2132-1 #### [facility] ([id number]) [address], [address] [place] [address] Glucose [Mass/Vol] 144 mg/dL High 65-99 [facility] Comment on above: Performed By: #### 3 2132-1 #### [facility] ([id number]) [address], [address] [place] [address] Potassium [Moles/Vol] 4.3 mmol/L Normal 3.5-5.0 [facility] Comment on above: Performed By: #### 3 2132-1 #### [facility] ([id number]) [address], [address] [place] [address] Protein [Mass/Vol] 6.4 g/dL Normal 6.0-8.0 [facility] Comment on above: Performed By: #### 3 2132-1 #### [facility] ([id number]) [address], [address] [place] [address] Sodium [Moles/Vol] 140 mmol/L Normal 134-146 [facility] Comment on above: Performed By: #### 3 2132-1 #### [facility] ([id number]) [address], [address] [place] [address] Urea nitrogen [Mass/Vol] 18 mg/dL Normal 5-23 [facility] Comment on above: Performed By: #### 3 2132-1 #### [facility] ([id number]) [address], [address] [place] [address] Heparin unfractionated Chrom ogenic method Qn (PPP)on 12-07-2023 ANTI XA UFH 0.07 IU/mL Low 0.30-0.70 [facility] Comment on above: Result Comment: Opti mal time for testing is 6 hrs post dosage This test is specific for monitoring patients on UFH, and is not recommended for use with other Anti-Xa medications. Performed By: #### 3 2132-1 #### [facility] ([id number]) [address], [address] [place] [address] CBC AND AUTO DIFFon 12-06-19 24 ABSOLUTE BASOPHIL 0.0 X10E9/L Normal 0.0-0.2 [facility] Comment on above: Performed By: #### 3 2132-1 #### [facility] ([id number]) [address], [address] [place] [address] ABSOLUTE NEUTROPHIL 15.4 X10E9/L High 1.5-6.6 [facility] Comment on above: Performed By: #### 3 2132-1 #### [facility] ([id number]) [address] [place] [address] Basophils/100 WBC (Bld) 0.2 % Normal [facility] Comment on above: Performed By: #### 3 2132-1 #### [facility] ([id number]) [address], [address] [place] [address] Eosinophils (Bld) [#/Vol] 0.0 10*3/uL Normal 0.0-0.4 [facility] Comment on above: Performed By: #### 3 2132-1 #### [facility] ([id number]) [address], [address] [place] [address] Eosinophils/100 WBC (Bld) 0.0 % Normal [facility] Comment on above: Performed By: #### 3 2132-1 #### [facility] ([id number]) [address], [address] [place] [address] Erythrocyte distribution width (RBC) [Ratio] 20.7 % High 11.5-15.0 [facility] Comment on above: Performed By: #### 3 2132-1 #### [facility] ([id number]) [address], [address] [place] [address] Hematocrit (Bld) [Volume fraction] 33.6 % Low 35-47 [facility] Comment on above: Performed By: #### 3 2132-1 #### [facility] ([id number]) [address] [place] [address] Hemoglobin (Bld) [Mass/Vol] 10.9 g/dL Low 11.7-15.5 [facility] Comment on above: Performed By: #### 3 2132-1 #### [facility] ([id number]) [address], [address] [place] [address] Lymphocytes (Bld) [#/Vol] 2.0 10*3/uL Normal 1.0-3.5 [facility] Comment on above: Performed By: #### 3 2132-1 #### [facility] ([id number]) [address], [address] [place] [address] Lymphocytes/100 WBC (Bld) 10.5 % Normal [facility] Comment on above: Performed By: #### 3 2132-1 #### [facility] ([id number]) [address], [address] [place] [address] MCH (RBC) [Entitic mass] 28.6 pg Normal 27-34 [facility] Comment on above: Performed By: #### 3 2132-1 #### [facility] ([id number]) [address], [address] [place] [address] MCHC (RBC) [Mass/Vol] 32.3 g/dL Normal 32-36 [facility] Comment on above: Performed By: #### 3 2132-1 #### [facility] ([id number]) [address], [address] [place] [address] MCV (RBC) [Entitic vol] 89 fL Normal 80-100 [facility] Comment on above: Performed By: #### 3 2132-1 #### [facility] ([id number]) [address], [address] [place] [address] Monocytes (Bld) [#/Vol] 1.2 10*3/uL High 0-0.9 [facility] Comment on above: Performed By: #### 3 2132-1 #### [facility] ([id number]) [address], [address] [place] [address] Monocytes/100 WBC (Bld) 6.6 % Normal [facility] Comment on above: Performed By: #### 3 2132-1 #### [facility] ([id number]) [address], [address] [place] [address] Neutrophils/100 WBC (Bld) 82.7 % Normal [facility] Comment on above: Performed By: #### 3 2132-1 #### [facility] ([id number]) [address], [address] [place] [address] Platelet mean volume (Bld) [Entitic vol] 9.0 fL Normal 7-12 [facility] Comment on above: Performed By: #### 3 2132-1 #### [facility] ([id number]) [address], [address] [place] [address] Platelets (Bld) [#/Vol] 261 10*3/uL Normal 150-450 [facility] Comment on above: Performed By: #### 3 2132-1 #### [facility] ([id number]) [address], [address] [place] [address] RBC COUNT 3.79 X10E12/L Low 3.80-5.20 [facility] Comment on above: Performed By: #### 3 2132-1 #### [facility] ([id number]) [address], [address] [place] [address] WBC (Bld) [#/Vol] 18.6 10*3/uL High 4.0-11.0 [facility] Comment on above: Performed By: #### 3 2132-1 #### [facility] ([id number]) [address], [address] [place] [address] COMPREHENSIVE METABOLIC PANE Faisal 12-06-2023 Albumin [Mass/Vol] 4.0 g/dL Normal 3.2-5.3 [facility] Comment on above: Performed By: #### 3 2132-1 #### [facility] ([id number]) [address], [address] [place] [address] ALP [Catalytic activity/Vol] 142 U/L High 39-130 [facility] Comment on above: Performed By: #### 3 2132-1 #### [facility] ([id number]) [address], [address] [place] [address] ALT [Catalytic activity/Vol] 28 U/L Normal 0-31 [facility] Comment on above: Performed By: #### 3 2132-1 #### [facility] ([id number]) [address], [address] [place] [address] Anion gap [Moles/Vol] 10 mmol/L Normal 5-15 [facility] Comment on above: Performed By: #### 3 2132-1 #### [facility] ([id number]) [address], [address] [place] [address] AST [Catalytic activity/Vol] 28 U/L Normal 0-41 [facility] Comment on above: Performed By: #### 3 2132-1 #### [facility] ([id number]) [address], [address] [place] [address] Bilirubin [Mass/Vol] 0.3 mg/dL Normal 0.3-1.2 [facility] Comment on above: Performed By: #### 3 2132-1 #### [facility] ([id number]) [address], [address] [place] [address] Calcium [Mass/Vol] 8.8 mg/dL Normal 8.5-10.5 [facility] Comment on above: Performed By: #### 3 2132-1 #### [facility] ([id number]) [address], [address] [place] [address] Chloride [Moles/Vol] 103 mmol/L Normal 98-109 [facility] Comment on above: Performed By: #### 3 2132-1 #### [facility] ([id number]) [address], [address] [place] [address] CO2 [Moles/Vol] 26 mmol/L Normal 22-32 [facility] Comment on above: Performed By: #### 3 2132-1 #### [facility] ([id number]) [address], [address] [place] [address] Creatinine [Mass/Vol] 0.76 mg/dL Normal 0.40-1.00 [facility] Comment on above: Result Comment: METH OD TRACEABLE TO IDMS STANDARD Performed By: #### 3 2132-1 #### [facility] ([id number]) [address], [address] [place] [address] eGFR (CKD-EPI) NON-RACE DEPENDENT >90 Normal >59 [facility] Comment on above: Result Comment: Reported eGFR is based on the CKD-EPI 2020 equation that does not use a race coefficient. Performed By: #### 3 2132-1 #### [facility] ([id number]) [address], [address] [place] [address] Glucose [Mass/Vol] 153 mg/dL High 65-99 [facility] Comment on above: Performed By: #### 3 1 #### [facility] ([id number]) [address], [address] [place] [address] Potassium [Moles/Vol] 3.6 mmol/L Normal 3.5-5.0 [facility] Comment on above: Performed By: #### 3 2132-1 #### [facility] ([id number]) [address], [address] [place] [address] Protein [Mass/Vol] 6.9 g/dL Normal 6.0-8.0 [facility] Comment on above: Performed By: #### 3 2132-1 #### [facility] ([id number]) [address], [address] [place] [address] Sodium [Moles/Vol] 139 mmol/L Normal 134-146 [facility] Comment on above: Performed By: #### 3 2132-1 #### [facility] ([id number]) [address], [address] [place] [address] Urea nitrogen [Mass/Vol] 19 mg/dL Normal 5-23 [facility] Comment on above: Performed By: #### 3 2132-1 #### [facility] ([id number]) [address], [address] [place] [address] Heparin unfractionated Chrom ogenic method Qn (PPP)on 12-06-2023 ANTI XA UFH 0.42 IU/mL Normal 0.30-0.70 [facility] Comment on above: Result Comment: Opti mal time for testing is 6 hrs post dosage This test is specific for monitoring patients on UFH, and is not recommended for use with other Anti-Xa medications. Performed By: #### 3 2132-1 #### [facility] ([id number]) [address], [address] [place] [address] BLOOD CULTUREon 12-05-2023 Bacteria identified Aer cx Nom (Bld) CULTURE RESULTS NO GROWTH 4 DAYS Normal [facility] CBC AND AUTO DIFFon 12-05-19 24 ABSOLUTE BASOPHIL 0.0 X10E9/L Normal 0.0-0.2 [facility] Comment on above: Performed By: #### C ROWAN, 08238-5, CBCA, PINR #### [facility] ([id number]) [address], [address] [place] [address] ABSOLUTE NEUTROPHIL 15.5 X10E9/L High 1.5-6.6 [facility] Comment on above: Performed By: #### C ROWAN, 44316-3, CBCA, PINR #### [facility] ([id number]) [address], [address] [place] [address] Basophils/100 WBC (Bld) 0.2 % Normal [facility] Comment on above: Performed By: #### C ROWAN, 04323-6, CBCA, PINR #### [facility] ([id number]) [address] [address] [place] [address] Eosinophils (Bld) [#/Vol] 0.0 10*3/uL Normal 0.0-0.4 [facility] Comment on above: Performed By: #### C ROWAN, 49554-9, CBCA, PINR #### [facility] ([id number]) [address] [address] [place] [address] Eosinophils/100 WBC (Bld) 0.0 % Normal [facility] Comment on above: Performed By: #### C ROWAN, 63229-4, CBCA, PINR #### [facility] ([id number]) [address], [facility] [address] [place] [address] Erythrocyte distribution width (RBC) [Ratio] 20.1 % High 11.5-15.0 [facility] Comment on above: Performed By: #### C ROWAN, 64345-3, CBCA, PINR #### [facility] ([id number]) [address] [address] [place] [address] Hematocrit (Bld) [Volume fraction] 34.0 % Low 35-47 [facility] Comment on above: Performed By: #### C ROWAN, 51682-4, CBCA, PINR #### [facility] ([id number]) [address] [address] [place] [address] Hemoglobin (Bld) [Mass/Vol] 11.2 g/dL Low 11.7-15.5 [facility] Comment on above: Performed By: #### C ROWAN, 63125-9, CBCA, PINR #### [facility] ([id number]) [address], [facility] [address] [place] [address] Lymphocytes (Bld) [#/Vol] 2.1 10*3/uL Normal 1.0-3.5 [facility] Comment on above: Performed By: #### C ROWAN, 46940-0, CBCA, PINR #### [facility] ([id number]) [address], [address] [place] [address] Lymphocytes/100 WBC (Bld) 11.1 % Normal [facility] Comment on above: Performed By: #### C ROWAN, 82053-8, CBCA, PINR #### [facility] ([id number]) [address], [address] [place] [address] MCH (RBC) [Entitic mass] 29.0 pg Normal 27-34 [facility] Comment on above: Performed By: #### C ROWAN, 32567-1, CBCA, PINR #### [facility] ([id number]) [address], [address] [place] [address] MCHC (RBC) [Mass/Vol] 33.0 g/dL Normal 32-36 [facility] Comment on above: Performed By: #### C ROWAN, 15542-5, CBCA, PINR #### [facility] ([id number]) [address], [address] [place] [address] MCV (RBC) [Entitic vol] 88 fL Normal 80-100 [facility] Comment on above: Performed By: #### C ROWAN, 11390-6, CBCA, PINR #### [facility] ([id number]) [address], [address] [place] [address] Monocytes (Bld) [#/Vol] 1.6 10*3/uL High 0-0.9 [facility] Comment on above: Performed By: #### C ROWAN, 71295-4, CBCA, PINR #### [facility] ([id number]) [address], [address] [place] [address] Monocytes/100 WBC (Bld) 8.2 % Normal [facility] Comment on above: Performed By: #### C ROWAN, 98676-0, CBCA, PINR #### [facility] ([id number]) [address], [address] [place] [address] Neutrophils/100 WBC (Bld) 80.5 % Normal [facility] Comment on above: Performed By: #### C ROWAN, 51063-4, CBCA, PINR #### [facility] ([id number]) [address], [facility] [address] [place] [address] OVALOCYTE 1+ Abnormal NONE [facility] Comment on above: Performed By: #### C ROWAN, 75592-4, CBCA, PINR #### [facility] ([id number]) [address], [address] [place] [address] Platelet mean volume (Bld) [Entitic vol] 8.4 fL Normal 7-12 [facility] Comment on above: Performed By: #### C ROWAN, 94834-1, CBCA, PINR #### [facility] ([id number]) [address], [address] [address] Platelets (Bld) [#/Vol] 274 10*3/uL Normal 150-450 [facility] Comment on above: Performed By: #### C ROWAN, 14001-6, CBCA, PINR #### [facility] ([id number]) [address], [address] [place] [address] POLYCHROMASIA 1+ Abnormal NONE [facility] Comment on above: Performed By: #### C ROWAN, 58787-7, CBCA, PINR #### [facility] ([id number]) [address], [address] [place] [address] RBC COUNT 3.87 X10E12/L Normal 3.80-5.20 [facility] Comment on above: Performed By: #### C MP, 72750-3, CBCA, PINR #### [facility] ([id number]) [address], [address] [place] [address] WBC (Bld) [#/Vol] 19.2 10*3/uL High 4.0-11.0 [facility] Comment on above: Performed By: #### C ROWAN, 64191-2, CBCA, PINR #### [facility] ([id number]) [address], [address] [place] [address] COMPREHENSIVE METABOLIC PANE Faisal 12-05-2023 Albumin [Mass/Vol] 4.1 g/dL Normal 3.2-5.3 [facility] Comment on above: Performed By: #### C ROWAN, 08694-3, CBCA, PINR #### [facility] ([id number]) [address], [address] [place] [address] ALP [Catalytic activity/Vol] 139 U/L High 39-130 [facility] Comment on above: Performed By: #### C ROWAN, 46628-2, CBCA, PINR #### [facility] ([id number]) [address], [address] [place] [address] ALT [Catalytic activity/Vol] 26 U/L Normal 0-31 [facility] Comment on above: Performed By: #### C ROWAN, 86045-2, CBCA, PINR #### [facility] ([id number]) [address], [address] [place] [address] Anion gap [Moles/Vol] 11 mmol/L Normal 5-15 [facility] Comment on above: Performed By: #### C ROWAN, 56191-9, CBCA, PINR #### [facility] ([id number]) [address], [address] [place] [address] AST [Catalytic activity/Vol] 30 U/L Normal 0-41 [facility] Comment on above: Performed By: #### C ROWAN, 83395-6, CBCA, PINR #### [facility] ([id number]) [address], [address] [place] [address] Bilirubin [Mass/Vol] 0.3 mg/dL Normal 0.3-1.2 [facility] Comment on above: Performed By: #### C ROWAN, 42421-2, CBCA, PINR #### [facility] ([id number]) [address], [address] [place] [address] Calcium [Mass/Vol] 9.7 mg/dL Normal 8.5-10.5 [facility] Comment on above: Performed By: #### C ROWAN, 64175-1, CBCA, PINR #### [facility] ([id number]) [address], [address] [place] [address] Chloride [Moles/Vol] 101 mmol/L Normal 98-109 [facility] Comment on above: Performed By: #### C ROWAN, 32821-5, CBCA, PINR #### [facility] ([id number]) [address], [address] [place] [address] CO2 [Moles/Vol] 27 mmol/L Normal 22-32 [facility] Comment on above: Performed By: #### C ROWAN, 62740-4, CBCA, PINR #### [facility] ([id number]) [address], [address] [place] [address] Creatinine [Mass/Vol] 0.73 mg/dL Normal 0.40-1.00 [facility] Comment on above: Result Comment: METH OD TRACEABLE TO IDMS STANDARD Performed By: #### C ROWAN, 80997-0, CBCA, PINR #### [facility] ([id number]) [address], [address] [place] [address] eGFR (CKD-EPI) NON-RACE DEPENDENT >90 Normal >59 [facility] Comment on above: Result Comment: Reported eGFR is based on the CKD-EPI 2020 equation that does not use a race coefficient. Performed By: #### C ROWAN, 95829-5, CBCA, PINR #### [facility] ([id number]) [address], [address] [place] [address] Glucose [Mass/Vol] 122 mg/dL High 65-99 [facility] Comment on above: Performed By: #### C ROWAN, 54063-6, CBCA, PINR #### [facility] ([id number]) [address], [address] [place] [address] Potassium [Moles/Vol] 4.1 mmol/L Normal 3.5-5.0 [facility] Comment on above: Performed By: #### C ROWAN, 59683-7, CBCA, PINR #### [facility] ([id number]) [address], [address] [place] [address] Protein [Mass/Vol] 6.9 g/dL Normal 6.0-8.0 [facility] Comment on above: Performed By: #### C ROWAN, 78035-9, CBCA, PINR #### [facility] ([id number]) [address], [address] [place] [address] Sodium [Moles/Vol] 139 mmol/L Normal 134-146 [facility] Comment on above: Performed By: #### C ROWAN, 79785-1, CBCA, PINR #### [facility] ([id number]) [address] [address] [place] [address] Urea nitrogen [Mass/Vol] 17 mg/dL Normal 5-23 [facility] Comment on above: Performed By: #### C ROWAN, 67590-3, CBCA, PINR #### [facility] ([id number]) [address], [address] [place] [address] CT ABDOMEN AND PELVIS W CONT on 12-05-2023 CT ABDOMEN AND PELVIS W CONT CT ABDOMEN AND PELVIS W CONT CT ABDOMEN AND PELVIS W CONT CLINICAL HISTORY:Brain metastasis, hx of small cell lung cancer. COMPARISON: None. TECHNIQUE: CT abdomen and pelvis was performed utilizing the standard protocol following the uneventful administration of 100 cc Omnipaque 300 nonionic intravenous contrast. Coronal and sagittal reformatted images were generated and reviewed. Automated exposure control was utilized. FINDINGS: Confluent left basilar opacity. Eccentric left ventricular hypertrophy. Calcified coronary arterial disease. Unremarkable liver, gallbladder, spleen, pancreas, adrenal glands, kidneys. Severe narrowing proximal celiac axis, downstream vessel well opacified. No acute occlusion the major visceral vasculature. Hysterectomy. No dilatation or wall thickening of the bowel. Nonvisualized appendix. No abdominal adenopathy. No aggressive osseous lesions. Sequelae osteonecrosis left femoral head. Osteopenia. Stranding about the right inguinal region. IMPRESSION: 1. No metastatic disease to the abdomen or pelvis. 2. Fat stranding about the right inguinal region, correlate for history of recent vascular access. All CT scans at this facility use dose modulation, iterative reconstruction, and/or weight based dosing when appropriate to reduce radiation dose to as low as reasonably achievable. Finalized by Chemo Haynes MD on 12/05/2023 8:43 PM Normal [facility] Heparin unfractionated Chrom ogenic method Qn (PPP)on 12-05-2023 ANTI XA UFH 0.67 IU/mL Normal 0.30-0.70 [facility] Comment on above: Result Comment: Opti mal time for testing is 6 hrs post dosage This test is specific for monitoring patients on UFH, and is not recommended for use with other Anti-Xa medications. Performed By: #### C MP, 47028-6, CBCA, PINR #### [facility] ([id number]) [address] [place] [address] MR BRAIN SYNAPTIVEon 024 MR BRAIN SYNAPTIVE MR BRAIN SYNAPTIVE EXAM:MR BRAIN SYNAPTIVE INDICATION: Concern for metastasis COMPARISON: CT of the head dated 12/03/2023 TECHNIQUE: Multiplanar multisequence pre and post contrast MR sequences through the head/brain. CONTRAST: 15mL ProHance IV. BRAIN FINDINGS: Brain Parenchyma: Peripherally enhancing lesion within the high right frontal lobe measures approximately 2.1 cm in greatest dimension. Corresponding diffusion restriction to the enhancing components is present. Extensive surrounding vasogenic edema occupies the majority of the high right frontal lobe. Approximately 3 mm of leftward midline shift. Additional peripherally enhancing lesion within the medial aspect of the left cerebellum measures up to 8 mm. There is moderate surrounding vasogenic edema. Minimal effacement of the adjacent fourth ventricle. No acute hemorrhage, or acute infarction. Ventricles and Sulci: Normal for age. Extra-Axial Spaces: No extra-axial fluid collection. Intracranial Flow-Voids: Arterial and venous sinus flow voids appear normal. Orbits: Normal Paranasal Sinuses: Normal Mastoid Air Cells: Bilateral effusions, right greater than left. Cranium: No suspicious calvarial lesions are identified. Extracranial Soft Tissues: Normal IMPRESSION: Peripherally enhancing presumed metastatic lesions within the high right frontal lobe and medial left cerebellum measuring approximately 2.1 cm and 8 mm respectively. Extensive surrounding edema. Approximately 3 mm of leftward midline shift is present supratentorially.. Finalized by Matthew Drew on 12/05/2023 10:08 AM Normal [facility] PLATELET COUNT AND MPVon Platelet mean volume (Bld) [Entitic vol] 9.0 fL Normal 7-12 [facility] Comment on above: Performed By: #### C MP, 38365-2, CBCA, PINR #### [facility] ([id number]) [address], [address] [place] [address] Platelets (Bld) [#/Vol] 295 10*3/uL Normal 150-450 [facility] Comment on above: Performed By: #### C MP, 40823-0, CBCA, PINR #### [facility] ([id number]) [address], [address] [place] [address] CBC AND AUTO DIFFon 12-04-19 24 ABSOLUTE BASOPHIL 0.1 X10E9/L Normal 0.0-0.2 [facility] Comment on above: Performed By: #### C ROWAN, 80464-0, CBCA, PINR #### [facility] ([id number]) [address], [address] [place] [address] ABSOLUTE NEUTROPHIL 12.1 X10E9/L High 1.5-6.6 [facility] Comment on above: Performed By: #### C ROWAN, 88279-3, CBCA, PINR #### [facility] ([id number]) [address], [address] [place] [address] Basophils/100 WBC (Bld) 0.5 % Normal [facility] Comment on above: Performed By: #### C ROWAN, 27116-9, CBCA, PINR #### [facility] ([id number]) [address] [place] [address] Eosinophils (Bld) [#/Vol] 0.0 10*3/uL Normal 0.0-0.4 [facility] Comment on above: Performed By: #### C ROWAN, 19934-1, CBCA, PINR #### [facility] ([id number]) [address], [address] [place] [address] Eosinophils/100 WBC (Bld) 0.1 % Normal [facility] Comment on above: Performed By: #### C ROWAN, 56596-4, CBCA, PINR #### [facility] ([id number]) [address] [place] [address] Erythrocyte distribution width (RBC) [Ratio] 19.7 % High 11.5-15.0 [facility] Comment on above: Performed By: #### C ROWAN, 48806-9, CBCA, PINR #### [facility] ([id number]) [address] [place] [address] Hematocrit (Bld) [Volume fraction] 34.5 % Low 35-47 [facility] Comment on above: Performed By: #### C ROWAN, 81778-2, CBCA, PINR #### [facility] ([id number]) [address] [place] [address] Hemoglobin (Bld) [Mass/Vol] 11.6 g/dL Low 11.7-15.5 [facility] Comment on above: Performed By: #### C ROWAN, 97078-9, CBCA, PINR #### [facility] ([id number]) [address], [facility] [address] [place] [address] Lymphocytes (Bld) [#/Vol] 2.0 10*3/uL Normal 1.0-3.5 [facility] Comment on above: Performed By: #### C ROWAN, 57529-1, CBCA, PINR #### [facility] ([id number]) [address] [address] Lymphocytes/100 WBC (Bld) 13.3 % Normal [facility] Comment on above: Performed By: #### C ROWAN, 50945-0, CBCA, PINR #### [facility] ([id number]) [address] [facility] [address] [place] [address] MCH (RBC) [Entitic mass] 29.4 pg Normal 27-34 [facility] Comment on above: Performed By: #### C ROWAN, 55622-7, CBCA, PINR #### [facility] ([id number]) [address], [address] [place] [address] MCHC (RBC) [Mass/Vol] 33.7 g/dL Normal 32-36 [facility] Comment on above: Performed By: #### C ROWAN, 29174-0, CBCA, PINR #### [facility] ([id number]) [address] [address] [place] [address] MCV (RBC) [Entitic vol] 87 fL Normal 80-100 [facility] Comment on above: Performed By: #### [place], 80982-0, CBCA, PINR #### [facility] ([id number]) [address], [facility] [address] [place] [address] Monocytes (Bld) [#/Vol] 0.5 10*3/uL Normal 0-0.9 [facility] Comment on above: Performed By: #### C ROWAN, 90678-6, CBCA, PINR #### [facility] ([id number]) [address], [facility] [address] [place] [address] Monocytes/100 WBC (Bld) 3.4 % Normal [facility] Comment on above: Performed By: #### C ROWAN, 01927-9, CBCA, PINR #### [facility] ([id number]) [address], [facility] [address] [place] [address] Neutrophils/100 WBC (Bld) 82.7 % Normal [facility] Comment on above: Performed By: #### C ROWAN, 38492-9, CBCA, PINR #### [facility] ([id number]) [address], [facility] [address] [place] [address] Platelet mean volume (Bld) [Entitic vol] 8.8 fL Normal 7-12 [facility] Comment on above: Performed By: #### C ROWAN, 00761-9, CBCA, PINR #### [facility] ([id number]) [address], [facility] [address] [place] [address] Platelets (Bld) [#/Vol] 263 10*3/uL Normal 150-450 [facility] Comment on above: Performed By: #### C ROWAN, 53439-7, CBCA, PINR #### [facility] ([id number]) [address], [address] [place] [address] RBC COUNT 3.96 X10E12/L Normal 3.80-5.20 [facility] Comment on above: Performed By: #### C ROWAN, 87088-5, CBCA, PINR #### [facility] ([id number]) [address], [address] [place] [address] WBC (Bld) [#/Vol] 14.6 10*3/uL High 4.0-11.0 [facility] Comment on above: Performed By: #### C ROWAN, 87323-0, CBCA, PINR #### [facility] ([id number]) [address], [address] [place] [address] COMPREHENSIVE METABOLIC PANE Faisal 12-04-2023 Albumin [Mass/Vol] 4.4 g/dL Normal 3.2-5.3 [facility] Comment on above: Performed By: #### C ROWAN, 52617-2, CBCA, PINR #### [facility] ([id number]) [address], [address] [place] [address] ALP [Catalytic activity/Vol] 158 U/L High 39-130 [facility] Comment on above: Performed By: #### C ROWAN, 43972-9, CBCA, PINR #### [facility] ([id number]) [address], [address] [place] [address] ALT [Catalytic activity/Vol] 15 U/L Normal 0-31 [facility] Comment on above: Performed By: #### C ROWAN, 95852-4, CBCA, PINR #### [facility] ([id number]) [address], [address] [place] [address] Anion gap [Moles/Vol] 10 mmol/L Normal 5-15 [facility] Comment on above: Performed By: #### C ROWAN, 12310-7, CBCA, PINR #### [facility] ([id number]) [address], [address] [place] [address] AST [Catalytic activity/Vol] 23 U/L Normal 0-41 [facility] Comment on above: Performed By: #### C ROWAN, 70574-2, CBCA, PINR #### [facility] ([id number]) [address], [address] [place] [address] Bilirubin [Mass/Vol] 0.4 mg/dL Normal 0.3-1.2 [facility] Comment on above: Performed By: #### C ROWAN, 71077-1, CBCA, PINR #### [facility] ([id number]) [address], [address] [place] [address] Calcium [Mass/Vol] 9.9 mg/dL Normal 8.5-10.5 [facility] Comment on above: Performed By: #### C ROWAN, 13039-1, CBCA, PINR #### [facility] ([id number]) [address], [address] [place] [address] Chloride [Moles/Vol] 103 mmol/L Normal 98-109 [facility] Comment on above: Performed By: #### C ROWAN, 09133-4, CBCA, PINR #### [facility] ([id number]) [address], [address] [place] [address] CO2 [Moles/Vol] 28 mmol/L Normal 22-32 [facility] Comment on above: Performed By: #### C ROWAN, 14490-0, CBCA, PINR #### [facility] ([id number]) [address], [address] [place] [address] Creatinine [Mass/Vol] 0.70 mg/dL Normal 0.40-1.00 [facility] Comment on above: Result Comment: METH OD TRACEABLE TO IDMS STANDARD Performed By: #### C ROWAN, 13117-5, CBCA, PINR #### [facility] ([id number]) [address], [address] [place] [address] eGFR (CKD-EPI) NON-RACE DEPENDENT >90 Normal >59 [facility] Comment on above: Result Comment: Reported eGFR is based on the CKD-EPI 2020 equation that does not use a race coefficient. Performed By: #### C ROWAN, 23953-1, CBCA, PINR #### [facility] ([id number]) [address], [address] [place] [address] Glucose [Mass/Vol] 126 mg/dL High 65-99 [facility] Comment on above: Performed By: #### C ROWAN, 17005-8, CBCA, PINR #### [facility] ([id number]) [address] [address] [place] [address] Potassium [Moles/Vol] 4.0 mmol/L Normal 3.5-5.0 [facility] Comment on above: Performed By: #### C ROWAN, 40425-2, CBCA, PINR #### [facility] ([id number]) [address], [address] [place] [address] Protein [Mass/Vol] 7.6 g/dL Normal 6.0-8.0 [facility] Comment on above: Performed By: #### C ROWAN, 48856-9, CBCA, PINR #### [facility] ([id number]) [address] [address] [place] [address] Sodium [Moles/Vol] 141 mmol/L Normal 134-146 [facility] Comment on above: Performed By: #### C ROWAN, 45640-3, CBCA, PINR #### [facility] ([id number]) [address] [address] [place] [address] Urea nitrogen [Mass/Vol] 13 mg/dL Normal 5-23 [facility] Comment on above: Performed By: #### C ROWAN, 80008-4, CBCA, PINR #### [facility] ([id number]) [address], [address] [place] [address] FERRITINon 12-04-2023 Ferritin [Mass/Vol] 34 ng/mL Normal 11-307 [facility] Comment on above: Performed By: #### C ROWAN, 96149-7, CBCA, PINR #### [facility] ([id number]) [address], [address] [place] [address] Folate [Mass/Vol]on 12-04-19 24 FOLIC ACID 6.8 ng/mL Normal >5.8 [facility] Comment on above: Result Comment: NEW REFERENCE RANGE Performed By: #### C ROWAN, 83583-2, CBCA, PINR #### [facility] ([id number]) [address], [address] [place] [address] Haptoglobin Nephelometry [Ma ss/Vol]on 12-04-2023 HAPTOGLOBIN 287 mg/dL High 32-228 [facility] Comment on above: Performed By: #### C ROWAN, 21228-3, CBCA, PINR #### [facility] ([id number]) [address], [address] [place] [address] Heparin unfractionated Chrom ogenic method Qn (PPP)on 12-04-2023 ANTI XA UFH 0.36 IU/mL Normal 0.30-0.70 [facility] Comment on above: Result Comment: Opti mal time for testing is 6 hrs post dosage This test is specific for monitoring patients on UFH, and is not recommended for use with other Anti-Xa medications. Performed By: #### C ROWAN, 50543-1, CBCA, PINR #### [facility] ([id number]) [address], [address] [place] [address] ANTI XA UFH 0.35 IU/mL Normal 0.30-0.70 [facility] Comment on above: Result Comment: Opti mal time for testing is 6 hrs post dosage This test is specific for monitoring patients on UFH, and is not recommended for use with other Anti-Xa medications. Performed By: #### C ROWAN, 81009-6, CBCA, PINR #### [facility] ([id number]) [address] [address] [place] [address] ANTI XA UFH 0.28 IU/mL Low 0.30-0.70 [facility] Comment on above: Result Comment: Opti mal time for testing is 6 hrs post dosage This test is specific for monitoring patients on UFH, and is not recommended for use with other Anti-Xa medications. Performed By: #### C ROWAN, 11754-8, CBCA, PINR #### [facility] ([id number]) [address] [address] IRON PROFILEon 12-04-2023 Iron [Mass/Vol] 68 ug/dL Normal 50-170 [facility] Comment on above: Performed By: #### C ROWAN, 38967-9, CBCA, PINR #### [facility] ([id number]) [address] [address] IRON BINDING 400 ug/dL Normal 250-425 [facility] Comment on above: Performed By: #### C ROWAN, 04304-5, CBCA, PINR #### [facility] ([id number]) [address] [address] IRON SATURATION 17 % SATURATION Normal 15-50 [facility] Comment on above: Performed By: #### C ROWAN, 42419-8, CBCA, PINR #### [facility] ([id number]) [address] [address] [place] [address] LDH [Catalytic activity/Vol] on 12-04-2023 LDH 205 U/L Normal 100-235 [facility] Comment on above: Performed By: #### C ROWAN, 15634-0, CBCA, PINR #### [facility] ([id number]) [address] [address] [place] [address] NM BONE SCAN WHOLE BODYon NM BONE SCAN WHOLE BODY NM BONE SCAN WHOLE BODY BONE SCAN HISTORY: Non-small cell lung cancer COMPARISON: CT chest 11/29/2023 PROCEDURE: 28.4 mCi technetium 99m MDP administered intravenously and delayed whole body imaging performed. FINDINGS: Area of increased activity in the mid right femur as well as activity in the knees and proximal tibias. Focus of activity in the right antecubital region likely injection related. No other abnormal foci of activity. IMPRESSION: * No convincing scintigraphic evidence of osseous metastatic disease. * Area of increased activity in the mid right femur may relate to reactive changes from previous right knee surgery/arthroplasty, however radiographic correlation as well as correlation with surgical history is recommended. There is also activity in the left knee region favored to be reactive/degenerative in nature. Finalized by Radames Andrade MD on 12/04/2023 2:30 PM Normal [facility] VITAMIN B12on 12-04-2023 Cobalamin (Vitamin B12) [Mass/Vol] 195 pg/mL Normal 180-914 [facility] Comment on above: Performed By: #### C MP, 79136-6, CBCA, PINR #### [facility] ([id number]) [address], [address] [place] [address] CBC AND AUTO DIFFon 12-03-19 24 ABSOLUTE BASOPHIL 0.3 X10E9/L High 0.0-0.2 [facility] Comment on above: Performed By: #### C ROWAN, 05881-6, CBCA, PINR #### [facility] ([id number]) [address], [address] [place] [address] ABSOLUTE NEUTROPHIL 6.8 X10E9/L High 1.5-6.6 [facility] Comment on above: Performed By: #### C MP, 43444-5, CBCA, PINR #### [facility] ([id number]) [address], [address] [place] [address] Basophils/100 WBC (Bld) 2.6 % Normal [facility] Comment on above: Performed By: #### C MP, 54577-2, CBCA, PINR #### [facility] ([id number]) [address], [address] [place] [address] ANTELMO 2+ Abnormal NONE [facility] Comment on above: Performed By: #### C ROWAN, 19621-9, CBCA, PINR #### [facility] ([id number]) [address], [facility] [address] [place] [address] Eosinophils (Bld) [#/Vol] 0.1 10*3/uL Normal 0.0-0.4 [facility] Comment on above: Performed By: #### C ROWAN, 52251-9, CBCA, PINR #### [facility] ([id number]) [address], [facility] [address] [place] [address] Eosinophils/100 WBC (Bld) 0.6 % Normal [facility] Comment on above: Performed By: #### C ROWAN, 15230-3, CBCA, PINR #### [facility] ([id number]) [address] [address] [place] [address] Erythrocyte distribution width (RBC) [Ratio] 20.1 % High 11.5-15.0 [facility] Comment on above: Performed By: #### C ROWAN, 15092-8, CBCA, PINR #### [facility] ([id number]) [address], [facility] [address] [place] [address] Hematocrit (Bld) [Volume fraction] 30.1 % Low 35-47 [facility] Comment on above: Performed By: #### C ROWAN, 55812-6, CBCA, PINR #### [facility] ([id number]) [address], [facility] [address] [place] [address] Hemoglobin (Bld) [Mass/Vol] 10.4 g/dL Low 11.7-15.5 [facility] Comment on above: Performed By: #### C ROWAN, 52885-1, CBCA, PINR #### [facility] ([id number]) [address], [address] [place] [address] Lymphocytes (Bld) [#/Vol] 2.9 10*3/uL Normal 1.0-3.5 [facility] Comment on above: Performed By: #### C ROWAN, 74538-0, CBCA, PINR #### [facility] ([id number]) [address], [facility] [address] [place] [address] Lymphocytes/100 WBC (Bld) 27.3 % Normal [facility] Comment on above: Performed By: #### C ROWAN, 86643-4, CBCA, PINR #### [facility] ([id number]) [address], [address] [place] [address] MCH (RBC) [Entitic mass] 30.0 pg Normal 27-34 [facility] Comment on above: Performed By: #### C ROWAN, 43211-8, CBCA, PINR #### [facility] ([id number]) [address], [address] [place] [address] MCHC (RBC) [Mass/Vol] 34.4 g/dL Normal 32-36 [facility] Comment on above: Performed By: #### C ROWAN, 59576-4, CBCA, PINR #### [facility] ([id number]) [address], [facility] [address] [place] [address] MCV (RBC) [Entitic vol] 87 fL Normal 80-100 [facility] Comment on above: Performed By: #### C ROWAN, 39494-1, CBCA, PINR #### [facility] ([id number]) [address], [facility] [address] [place] [address] Monocytes (Bld) [#/Vol] 0.5 10*3/uL Normal 0-0.9 [facility] Comment on above: Performed By: #### C ROWAN, 56518-6, CBCA, PINR #### [facility] ([id number]) [address], [address] [place] [address] Monocytes/100 WBC (Bld) 4.9 % Normal [facility] Comment on above: Performed By: #### C MP, 26268-6, CBCA, PINR #### [facility] ([id number]) [address], [address] [place] [address] Neutrophils/100 WBC (Bld) 64.6 % Normal [facility] Comment on above: Performed By: #### C ROWAN, 56703-6, CBCA, PINR #### [facility] ([id number]) [address], [address] [place] [address] OVALOCYTE 1+ Abnormal NONE [facility] Comment on above: Performed By: #### C ROWAN, 76414-0, CBCA, PINR #### [facility] ([id number]) [address], [address] [place] [address] Platelet mean volume (Bld) [Entitic vol] 8.9 fL Normal 7-12 [facility] Comment on above: Performed By: #### C ROWAN, 81006-2, CBCA, PINR #### [facility] ([id number]) [address], [address] [place] [address] Platelets (Bld) [#/Vol] 243 10*3/uL Normal 150-450 [facility] Comment on above: Performed By: #### C MP, 97562-8, CBCA, PINR #### [facility] ([id number]) [address], [address] [place] [address] RBC COUNT 3.45 X10E12/L Low 3.80-5.20 [facility] Comment on above: Performed By: #### C MP, 63762-1, CBCA, PINR #### [facility] ([id number]) [address], [address] [place] [address] WBC (Bld) [#/Vol] 10.6 10*3/uL Normal 4.0-11.0 [facility] Comment on above: Performed By: #### C ROWAN, 22030-3, CBCA, PINR #### [facility] ([id number]) [address], [address] [place] [address] COMPREHENSIVE METABOLIC PANE Faisal 12-03-2023 Albumin [Mass/Vol] 3.9 g/dL Normal 3.2-5.3 [facility] Comment on above: Performed By: #### C ROWAN, 51682-7, CBCA, PINR #### [facility] ([id number]) [address], [address] [place] [address] ALP [Catalytic activity/Vol] 138 U/L High 39-130 [facility] Comment on above: Performed By: #### C ROWAN, 31992-8, CBCA, PINR #### [facility] ([id number]) [address], [address] [place] [address] ALT [Catalytic activity/Vol] 7 U/L Normal 0-31 [facility] Comment on above: Performed By: #### C ROWAN, 58192-5, CBCA, PINR #### [facility] ([id number]) [address], [address] [place] [address] Anion gap [Moles/Vol] 10 mmol/L Normal 5-15 [facility] Comment on above: Performed By: #### C ROWAN, 92132-7, CBCA, PINR #### [facility] ([id number]) [address], [address] [place] [address] AST [Catalytic activity/Vol] 17 U/L Normal 0-41 [facility] Comment on above: Performed By: #### C MP, 81572-0, CBCA, PINR #### [facility] ([id number]) [address], [address] [place] [address] Bilirubin [Mass/Vol] 0.3 mg/dL Normal 0.3-1.2 [facility] Comment on above: Performed By: #### C ROWAN, 42774-7, CBCA, PINR #### [facility] ([id number]) [address], [facility] [address] [place] [address] Calcium [Mass/Vol] 9.0 mg/dL Normal 8.5-10.5 [facility] Comment on above: Performed By: #### C ROWAN, 25344-6, CBCA, PINR #### [facility] ([id number]) [address] [address] [place] [address] Chloride [Moles/Vol] 106 mmol/L Normal 98-109 [facility] Comment on above: Performed By: #### C ROWAN, 07143-4, CBCA, PINR #### [facility] ([id number]) [address] [address] [place] [address] CO2 [Moles/Vol] 25 mmol/L Normal 22-32 [facility] Comment on above: Performed By: #### C ROWAN, 44970-4, CBCA, PINR #### [facility] ([id number]) [address] [address] [place] [address] Creatinine [Mass/Vol] 0.67 mg/dL Normal 0.40-1.00 [facility] Comment on above: Result Comment: METH OD TRACEABLE TO IDMS STANDARD Performed By: #### C ROWAN, 74059-8, CBCA, PINR #### [facility] ([id number]) [address] [address] [place] [address] eGFR (CKD-EPI) NON-RACE DEPENDENT >90 Normal >59 [facility] Comment on above: Result Comment: Reported eGFR is based on the CKD-EPI 2020 equation that does not use a race coefficient. Performed By: #### C ROWAN, 34436-0, CBCA, PINR #### [facility] ([id number]) [address], [address] [place] [address] Glucose [Mass/Vol] 84 mg/dL Normal 65-99 [facility] Comment on above: Performed By: #### C ROWAN, 22745-2, CBCA, PINR #### [facility] ([id number]) [address], [address] [place] [address] Potassium [Moles/Vol] 3.7 mmol/L Normal 3.5-5.0 [facility] Comment on above: Performed By: #### C ROWAN, 24759-7, CBCA, PINR #### [facility] ([id number]) [address], [address] [place] [address] Protein [Mass/Vol] 6.6 g/dL Normal 6.0-8.0 [facility] Comment on above: Performed By: #### C ROWAN, 06118-2, CBCA, PINR #### [facility] ([id number]) [address], [address] [place] [address] Sodium [Moles/Vol] 141 mmol/L Normal 134-146 [facility] Comment on above: Performed By: #### C ROWAN, 49209-9, CBCA, PINR #### [facility] ([id number]) [address] [place] [address] Urea nitrogen [Mass/Vol] 15 mg/dL Normal 5-23 [facility] Comment on above: Performed By: #### C ROWAN, 59877-5, CBCA, PINR #### [facility] ([id number]) [address], [address] [place] [address] CT BRAIN WO CONTon 4 CT BRAIN WO CONT CT BRAIN WO CONT History: Neuro deficit, acute, stroke suspected Exam/Technique: CT images of the brain were obtained without IV contrast. CT does automated exposure control was utilized. All CT scans at this facility use dose modulation, iterative reconstruction, and/or weight based dosing when appropriate to reduce radiation dose to as low as reasonably achievable. Comparison: No relevant prior studies available. Findings: There are multiple areas of coarse cerebral edema largest at the right frontal lobe along cerebral convexity and along the left cerebellum with effacement of the ipsilateral cortical sulci. Findings are worrisome for underlying metastatic disease versus less likely multiple ischemic insult. Further characterization with contrast enhanced brain MRI is highly advised. There is no intracranial hemorrhage. There is 3 mm left subfalcine shift and no gross transtentorial herniation. IMPRESSION: Significantly abnormal exam with multiple areas of cerebral cerebellar edema is worrisome for underlying metastatic disease as described above. There is 3 mm left subfalcine shift. There is no gross intracranial hemorrhage. Further characterization with contrast enhanced brain MRI is highly advised. THIS REPORT CONTAINS A SIGNIFICANT RESULT AND/OR RECOMMENDATION, WHICH REQUIRES THE ATTENTION OF THE LICENSED CAREGIVER RESPONSIBLE FOR THIS PATIENT. THEREFORE, I SPECIFICALLY DESIGNATED THIS REPORT TO BE TELEPHONED BY THE RADIOLOGY DEPARTMENT Finalized by Charanjit Courtney MD on 12/03/2023 12:22 PM Normal [facility] FL SWALLOW MOTILITY FUNCTION on 12-03-2023 FL SWALLOW MOTILITY FUNCTION FL SWALLOW MOTILITY FUNCTION FL SWALLOW MOTILITY FUNCTION HISTORY: Oropharyngeal dysphagia COMPARISON: None TECHNIQUE: Video fluoroscopic swallow study was performed in conjunction with speech pathologist. Barium contrast materials of varying consistencies administered. FINDINGS: Fluoroscopy time: 1:04 minutes Reference air kerma: 2.598 mGy Runs: 7 Thin: Single episode of penetration by cup Applesauce: No penetration or aspiration. Fruit: No penetration or aspiration. Cracker: No penetration or aspiration. IMPRESSION: 1. Single episode of penetration of thin consistency by cup. Otherwise, no penetration or aspiration. 2. Please correlate with dedicated speech pathology report for additional details and recommendations. Approved by Resident Roman Cano MD on 12/03/2023 11:08 AM Charanjit Tierney MD have personally reviewed the image(s) and agree with and/or edited the report Finalized by Charanjit Courtney MD on 12/03/2023 11:16 AM Normal [facility] Heparin unfractionated Chrom ogenic method Qn (PPP)on 12-03-2023 ANTI XA UFH 0.38 IU/mL Normal 0.30-0.70 [facility] Comment on above: Result Comment: Opti mal time for testing is 6 hrs post dosage This test is specific for monitoring patients on UFH, and is not recommended for use with other Anti-Xa medications. Performed By: #### C RWOAN, 48596-9, CBCA, PINR #### [facility] ([id number]) [address] [address] CBC AND AUTO DIFFon 12-02-19 24 Band form neutrophils/100 WBC (Bld) 4.8 % Normal [facility] Comment on above: Performed By: #### Bennett DONAHUE, 70485-3, CBCA, PINR #### [facility] ([id number]) [address] [address] Erythrocyte distribution width (RBC) [Ratio] 19.5 % High 11.5-15.0 [facility] Comment on above: Performed By: #### C ROWAN, 66669-1, CBCA, PINR #### [facility] [facility] ([id number]) [address] [address] Hematocrit (Bld) [Volume fraction] 29.2 % Low 35-47 [facility] Comment on above: Performed By: #### C ROWAN, 80288-0, CBCA, PINR #### [facility] ([id number]) [address] [address] Hemoglobin (Bld) [Mass/Vol] 9.8 g/dL Low 11.7-15.5 [facility] Comment on above: Performed By: #### C ROWAN, 84551-8, CBCA, PINR #### [facility] ([id number]) [address] [address] Lymphocytes (Bld) [#/Vol] 1.8 10*3/uL Normal 1.0-3.5 [facility] Comment on above: Performed By: #### C ROWAN, 20497-6, CBCA, PINR #### [facility] ([id number]) [address] [place] [address] Lymphocytes/100 WBC (Bld) 9.5 % Normal [facility] Comment on above: Performed By: #### C ROWAN, 99300-4, CBCA, PINR #### [facility] ([id number]) [address], [address] [place] [address] MCH (RBC) [Entitic mass] 29.3 pg Normal 27-34 [facility] Comment on above: Performed By: #### C ROWAN, 42358-1, CBCA, PINR #### [facility] ([id number]) [address], [address] [place] [address] MCHC (RBC) [Mass/Vol] 33.7 g/dL Normal 32-36 [facility] Comment on above: Performed By: #### C ROWAN, 98365-4, CBCA, PINR #### [facility] ([id number]) [address], [address] [place] [address] MCV (RBC) [Entitic vol] 87 fL Normal 80-100 [facility] Comment on above: Performed By: #### C ROWAN, 67990-8, CBCA, PINR #### [facility] ([id number]) [address], [address] [place] [address] Monocytes (Bld) [#/Vol] 1.3 10*3/uL High 0-0.9 [facility] Comment on above: Performed By: #### C ROWAN, 70310-9, CBCA, PINR #### [facility] ([id number]) [address], [address] [place] [address] Monocytes/100 WBC (Bld) 6.7 % Normal [facility] Comment on above: Performed By: #### C ROWAN, 47827-5, CBCA, PINR #### [facility] ([id number]) [address], [facility] [address] [place] [address] Neutrophils (Bld) [#/Vol] 15.9 10*3/uL High 1.5-6.6 [facility] Comment on above: Performed By: #### C ROWAN, 05606-7, CBCA, PINR #### [facility] ([id number]) [address], [facility] [address] [place] [address] OVALOCYTE 1+ Abnormal NONE [facility] Comment on above: Performed By: #### C ROWAN, 57034-1, CBCA, PINR #### [facility] ([id number]) [address], [facility] [address] [place] [address] Platelet mean volume (Bld) [Entitic vol] 8.8 fL Normal 7-12 [facility] Comment on above: Performed By: #### C ROWAN, 38871-1, CBCA, PINR #### [facility] ([id number]) [address], [facility] [address] [place] [address] Platelets (Bld) [#/Vol] 252 10*3/uL Normal 150-450 [facility] Comment on above: Performed By: #### C ROWAN, 37644-4, CBCA, PINR #### [facility] ([id number]) [address], [facility] [address] [place] [address] RBC COUNT 3.36 X10E12/L Low 3.80-5.20 [facility] Comment on above: Performed By: #### C ROWAN, 79468-3, CBCA, PINR #### [facility] ([id number]) [address], [facility] [address] [place] [address] SEG NEUTROPHIL 79.0 % Normal [facility] Comment on above: Performed By: #### C ROWAN, 56780-8, CBCA, PINR #### [facility] ([id number]) [address], [address] [place] [address] WBC (Bld) [#/Vol] 19.0 10*3/uL High 4.0-11.0 [facility] Comment on above: Performed By: #### C ROWAN, 53467-0, CBCA, PINR #### [facility] ([id number]) [address], [address] [place] [address] COMPREHENSIVE METABOLIC PANE Faisal 12-02-2023 Albumin [Mass/Vol] 4.0 g/dL Normal 3.2-5.3 [facility] Comment on above: Performed By: #### C ROWAN, 48968-0, CBCA, PINR #### [facility] ([id number]) [address], [address] [place] [address] ALP [Catalytic activity/Vol] 145 U/L High 39-130 [facility] Comment on above: Performed By: #### C ROWAN, 77266-4, CBCA, PINR #### [facility] ([id number]) [address], [address] [place] [address] ALT [Catalytic activity/Vol] 8 U/L Normal 0-31 [facility] Comment on above: Performed By: #### C ROWAN, 35059-3, CBCA, PINR #### [facility] ([id number]) [address], [address] [place] [address] Anion gap [Moles/Vol] 11 mmol/L Normal 5-15 [facility] Comment on above: Performed By: #### C ROWAN, 94250-2, CBCA, PINR #### [facility] ([id number]) [address], [address] [place] [address] AST [Catalytic activity/Vol] 14 U/L Normal 0-41 [facility] Comment on above: Performed By: #### C ROWAN, 79365-4, CBCA, PINR #### [facility] ([id number]) [address], [address] [place] [address] Bilirubin [Mass/Vol] 0.4 mg/dL Normal 0.3-1.2 [facility] Comment on above: Performed By: #### C ROWAN, 45951-6, CBCA, PINR #### [facility] ([id number]) [address], [address] [place] [address] Calcium [Mass/Vol] 8.9 mg/dL Normal 8.5-10.5 [facility] Comment on above: Performed By: #### C ROWAN, 58097-8, CBCA, PINR #### [facility] ([id number]) [address], [address] [place] [address] Chloride [Moles/Vol] 107 mmol/L Normal 98-109 [facility] Comment on above: Performed By: #### C ROWAN, 60474-3, CBCA, PINR #### [facility] ([id number]) [address], [address] [place] [address] CO2 [Moles/Vol] 23 mmol/L Normal 22-32 [facility] Comment on above: Performed By: #### C ROWAN, 86150-9, CBCA, PINR #### [facility] ([id number]) [address], [address] [place] [address] Creatinine [Mass/Vol] 0.63 mg/dL Normal 0.40-1.00 [facility] Comment on above: Result Comment: METH OD TRACEABLE TO IDMS STANDARD Performed By: #### C ROWAN, 15466-0, CBCA, PINR #### [facility] ([id number]) [address], [address] [place] [address] eGFR (CKD-EPI) NON-RACE DEPENDENT >90 Normal >59 [facility] Comment on above: Result Comment: Reported eGFR is based on the CKD-EPI 2020 equation that does not use a race coefficient. Performed By: #### [place], 80234-6, CBCA, PINR #### [facility] ([id number]) [address], [facility] [address] [place] [address] Glucose [Mass/Vol] 140 mg/dL High 65-99 [facility] Comment on above: Performed By: #### C ROWAN, 05651-6, CBCA, PINR #### [facility] ([id number]) [address], [facility] [address] [place] [address] Potassium [Moles/Vol] 3.7 mmol/L Normal 3.5-5.0 [facility] Comment on above: Performed By: #### C ROWAN, 60475-6, CBCA, PINR #### [facility] ([id number]) [address], [facility] [address] [place] [address] Protein [Mass/Vol] 6.8 g/dL Normal 6.0-8.0 [facility] Comment on above: Performed By: #### C MP, 17775-8, CBCA, PINR #### [facility] ([id number]) [address], [facility] [address] [place] [address] Sodium [Moles/Vol] 141 mmol/L Normal 134-146 [facility] Comment on above: Performed By: #### C MP, 81558-7, CBCA, PINR #### [facility] ([id number]) [address] [address] [place] [address] Urea nitrogen [Mass/Vol] 20 mg/dL Normal 5-23 [facility] Comment on above: Performed By: #### C MP, 62848-9, CBCA, PINR #### [facility] ([id number]) [address], [address] [place] [address] Heparin unfractionated Chrom ogenic method Qn (PPP)on 12-02-2023 ANTI XA UFH 0.37 IU/mL Normal 0.30-0.70 [facility] Comment on above: Result Comment: Opti mal time for testing is 6 hrs post dosage This test is specific for monitoring patients on UFH, and is not recommended for use with other Anti-Xa medications. Performed By: #### C ROWAN, 49063-2, CBCA, PINR #### [facility] ([id number]) [address] [place] [address] POTASSIUMon 12-02-2023 Potassium [Moles/Vol] 3.9 mmol/L Normal 3.5-5.0 [facility] Comment on above: Performed By: #### C ROWAN, 56227-9, CBCA, PINR #### [facility] ([id number]) [address] [place] [address] BLOOD CULTUREon 12-01-2023 Bacteria identified Aer cx Nom (Bld) CULTURE RESULTS NO GROWTH 5 DAYS Normal [facility] Bacteria identified Aer cx Nom (Bld) CULTURE RESULTS NO GROWTH 5 DAYS Normal [facility] CBC AND AUTO DIFFon 12-01-19 24 ABSOLUTE BASOPHIL 0.0 X10E9/L Normal 0.0-0.2 [facility] Comment on above: Performed By: #### C ROWAN, 01083-2, CBCA, PINR #### [facility] ([id number]) [address], [address] [place] [address] ABSOLUTE NEUTROPHIL 12.5 X10E9/L High 1.5-6.6 [facility] Comment on above: Performed By: #### C ROWAN, 70714-5, CBCA, PINR #### [facility] ([id number]) [address], [address] [place] [address] Basophils/100 WBC (Bld) 0.3 % Normal [facility] Comment on above: Performed By: #### C ROWAN, 42619-5, CBCA, PINR #### [facility] ([id number]) [address] [address] [place] [address] Eosinophils (Bld) [#/Vol] 0.0 10*3/uL Normal 0.0-0.4 [facility] Comment on above: Performed By: #### C ROWAN, 33270-3, CBCA, PINR #### [facility] ([id number]) [address], [facility] [address] [place] [address] Eosinophils/100 WBC (Bld) 0.0 % Normal [facility] Comment on above: Performed By: #### C ROWAN, 44799-2, CBCA, PINR #### [facility] ([id number]) [address], [facility] [address] [place] [address] Erythrocyte distribution width (RBC) [Ratio] 19.4 % High 11.5-15.0 [facility] Comment on above: Performed By: #### C ROWAN, 72689-2, CBCA, PINR #### [facility] ([id number]) [address] [address] [place] [address] Hematocrit (Bld) [Volume fraction] 33.5 % Low 35-47 [facility] Comment on above: Performed By: #### C ROWAN, 03744-2, CBCA, PINR #### [facility] ([id number]) [address] [address] [place] [address] Hemoglobin (Bld) [Mass/Vol] 11.3 g/dL Low 11.7-15.5 [facility] Comment on above: Performed By: #### C ROWAN, 53326-6, CBCA, PINR #### [facility] ([id number]) [address], [facility] [address] [place] [address] Lymphocytes (Bld) [#/Vol] 1.4 10*3/uL Normal 1.0-3.5 [facility] Comment on above: Performed By: #### C ROWAN, 12179-1, CBCA, PINR #### [facility] ([id number]) [address], [address] [place] [address] Lymphocytes/100 WBC (Bld) 9.6 % Normal [facility] Comment on above: Performed By: #### C ROWAN, 02037-9, CBCA, PINR #### [facility] ([id number]) [address], [address] [place] [address] MCH (RBC) [Entitic mass] 29.3 pg Normal 27-34 [facility] Comment on above: Performed By: #### C ROWAN, 70779-6, CBCA, PINR #### [facility] ([id number]) [address], [address] [place] [address] MCHC (RBC) [Mass/Vol] 33.8 g/dL Normal 32-36 [facility] Comment on above: Performed By: #### C ROWAN, 57183-1, CBCA, PINR #### [facility] ([id number]) [address], [address] [place] [address] MCV (RBC) [Entitic vol] 87 fL Normal 80-100 [facility] Comment on above: Performed By: #### C ROWAN, 27641-8, CBCA, PINR #### [facility] ([id number]) [address], [address] [place] [address] Monocytes (Bld) [#/Vol] 0.4 10*3/uL Normal 0-0.9 [facility] Comment on above: Performed By: #### C ROWAN, 37513-8, CBCA, PINR #### [facility] ([id number]) [address], [address] [place] [address] Monocytes/100 WBC (Bld) 2.5 % Normal [facility] Comment on above: Performed By: #### C ROWAN, 71206-1, CBCA, PINR #### [facility] ([id number]) [address], [address] [place] [address] Neutrophils/100 WBC (Bld) 87.6 % Normal [facility] Comment on above: Performed By: #### C ROWAN, 39002-6, CBCA, PINR #### [facility] ([id number]) [address], [address] [place] [address] Platelet mean volume (Bld) [Entitic vol] 8.7 fL Normal 7-12 [facility] Comment on above: Performed By: #### C ROWAN, 80644-5, CBCA, PINR #### [facility] ([id number]) [address], [address] [place] [address] Platelets (Bld) [#/Vol] 268 10*3/uL Normal 150-450 [facility] Comment on above: Performed By: #### C ROWAN, 86478-4, CBCA, PINR #### [facility] ([id number]) [address], [address] [place] [address] RBC COUNT 3.86 X10E12/L Normal 3.80-5.20 [facility] Comment on above: Performed By: #### C ROWAN, 16678-2, CBCA, PINR #### [facility] ([id number]) [address], [address] [place] [address] WBC (Bld) [#/Vol] 14.3 10*3/uL High 4.0-11.0 [facility] Comment on above: Performed By: #### C ROWAN, 58091-4, CBCA, PINR #### [facility] ([id number]) [address], [address] [place] [address] COMPREHENSIVE METABOLIC PANE Faisal 12-01-2023 Albumin [Mass/Vol] 4.2 g/dL Normal 3.2-5.3 [facility] Comment on above: Performed By: #### C ROWAN, 96929-8, CBCA, PINR #### [facility] ([id number]) [address], [address] [place] [address] ALP [Catalytic activity/Vol] 169 U/L High 39-130 [facility] Comment on above: Performed By: #### C ROWAN, 86249-0, CBCA, PINR #### [facility] ([id number]) [address], [address] [place] [address] ALT [Catalytic activity/Vol] 9 U/L Normal 0-31 [facility] Comment on above: Performed By: #### C ROWAN, 21148-8, CBCA, PINR #### [facility] ([id number]) [address], [address] [place] [address] Anion gap [Moles/Vol] 9 mmol/L Normal 5-15 [facility] Comment on above: Performed By: #### C ROWAN, 14617-5, CBCA, PINR #### [facility] ([id number]) [address], [address] [place] [address] AST [Catalytic activity/Vol] 15 U/L Normal 0-41 [facility] Comment on above: Performed By: #### C ROWAN, 11372-7, CBCA, PINR #### [facility] ([id number]) [address], [address] [place] [address] Bilirubin [Mass/Vol] 0.4 mg/dL Normal 0.3-1.2 [facility] Comment on above: Performed By: #### C ROWAN, 97157-8, CBCA, PINR #### [facility] ([id number]) [address], [address] [place] [address] Calcium [Mass/Vol] 9.4 mg/dL Normal 8.5-10.5 [facility] Comment on above: Performed By: #### C ROWAN, 56902-2, CBCA, PINR #### [facility] ([id number]) [address], [address] [place] [address] Chloride [Moles/Vol] 103 mmol/L Normal 98-109 [facility] Comment on above: Performed By: #### C ROWAN, 87067-8, CBCA, PINR #### [facility] ([id number]) [address], [address] [place] [address] CO2 [Moles/Vol] 23 mmol/L Normal 22-32 [facility] Comment on above: Performed By: #### C ROWAN, 54982-2, CBCA, PINR #### [facility] ([id number]) [address], [address] [place] [address] Creatinine [Mass/Vol] 0.75 mg/dL Normal 0.40-1.00 [facility] Comment on above: Result Comment: METH OD TRACEABLE TO IDMS STANDARD Performed By: #### C ROWAN, 54780-1, CBCA, PINR #### [facility] ([id number]) [address], [address] [place] [address] eGFR (CKD-EPI) NON-RACE DEPENDENT >90 Normal >59 [facility] Comment on above: Result Comment: Reported eGFR is based on the CKD-EPI 2021 equation that does not use a race coefficient. Performed By: #### C ROWAN, 11433-2, CBCA, PINR #### [facility] ([id number]) [address], [address] [place] [address] Glucose [Mass/Vol] 136 mg/dL High 65-99 [facility] Comment on above: Performed By: #### C ROWAN, 99341-1, CBCA, PINR #### [facility] ([id number]) [address], [address] [place] [address] Potassium [Moles/Vol] 4.1 mmol/L Normal 3.5-5.0 [facility] Comment on above: Performed By: #### C ROWAN, 36828-1, CBCA, PINR #### [facility] ([id number]) [address], [address] [place] [address] Protein [Mass/Vol] 7.1 g/dL Normal 6.0-8.0 [facility] Comment on above: Performed By: #### C ROWAN, 50834-2, CBCA, PINR #### [facility] ([id number]) [address], [address] [place] [address] Sodium [Moles/Vol] 135 mmol/L Normal 134-146 [facility] Comment on above: Performed By: #### C ROWAN, 04572-1, CBCA, PINR #### [facility] ([id number]) [address], [address] [place] [address] Urea nitrogen [Mass/Vol] 15 mg/dL Normal 5-23 [facility] Comment on above: Performed By: #### C ROWAN, 43247-2, CBCA, PINR #### [facility] ([id number]) [address], [address] [place] [address] Heparin unfractionated Chrom ogenic method Qn (PPP)on 12-01-2023 ANTI XA UFH 0.34 IU/mL Normal 0.30-0.70 [facility] Comment on above: Result Comment: Opti mal time for testing is 6 hrs post dosage This test is specific for monitoring patients on UFH, and is not recommended for use with other Anti-Xa medications. Performed By: #### C ROWAN, 08897-5, CBCA, PINR #### [facility] ([id number]) [address], [address] [place] [address] ANTI XA UFH 0.85 IU/mL High 0.30-0.70 [facility] Comment on above: Result Comment: Opti mal time for testing is 6 hrs post dosage This test is specific for monitoring patients on UFH, and is not recommended for use with other Anti-Xa medications. Performed By: #### C ROWAN, 37668-1, CBCA, PINR #### [facility] ([id number]) [address], [address] [place] [address] ANTI XA UFH 0.75 IU/mL High 0.30-0.70 [facility] Comment on above: Result Comment: Opti mal time for testing is 6 hrs post dosage This test is specific for monitoring patients on UFH, and is not recommended for use with other Anti-Xa medications. Performed By: #### 4 2757-5 #### [facility] ([id number]) [address] [place] [address] LEGIONELLA URINE AGon 2023 L. pneumophila Ag IA Ql (U) [facility]INE AG Negative (qualifier value) NEGATIVE FOR L.PNEUMOPHILA SEROGROUP 1 ANTIGEN Normal [facility] Comment on above: Performed By: #### C ROWAN, 92783-8, CBCA, PINR #### [facility] ([id number]) [address] [place] [address] Parathyrin.intact [Mass/Vol] on 12-01-2023 PTH INTACT 84 pg/mL Normal 12-88 [facility] Comment on above: Performed By: #### C ROWAN, 55646-7, CBCA, PINR #### [facility] ([id number]) [address] [place] [address] RESP PATHOGENS/TMKR-NgE-7hr 12-01-2023 Respiratory pathogens DNA and RNA panel NEVA+non-probe (Nph) SPECIMEN SOURCE NASO PHARYNX ADENOVIRUS Not detected (qualifier value) CORONAVIRUS 229E Not detected (qualifier value) CORONAVIRUS HKU1 Not detected (qualifier value) CORONAVIRUS NL63 Not detected (qualifier value) CORONAVIRUS OC43 Not detected (qualifier value) HUMAN METAPNEUVIRUS Not detected (qualifier value) RHINO/ENTEROVIRUS Not detected (qualifier value) INFLUENZA A Not detected (qualifier value) INFLUENZA B Not detected (qualifier value) PARAINFLUENZA 1 Not detected (qualifier value) PARAINFLUENZA 2 Not detected (qualifier value) PARAINFLUENZA 3 Not detected (qualifier value) PARAINFLUENZA 4 Not detected (qualifier value) RESP SYNCYTIAL VIRUS Not detected (qualifier value) BORD PARAPERTUSSIS Not detected (qualifier value) BORDETELLA PERTUSSIS Not detected (qualifier value) CHLAM.PNEUMONIAE Not detected (qualifier value) MYCO. PNEUMONIAE Not detected (qualifier value) SARS CoV 2 Not detected (qualifier value) NOTE The [employer] Respiratory Panel 2.1 (RP2.1) is a multiplexed nucleic acid test intended for the simultaneous qualitative detection and differentiation of nucleic acid from multiple viral and bacterial respiratory organisms, including nucleic acid from Severe Acute Respiratory Syndrome Coronavirus 2 (SARS-CoV-2), in nasopharyngeal swabs obtained from individuals suspected of COVID-19 by their healthcare provider. Testing is limited to laboratories certified under the Clinical Laboratory Improvement Amendments of 1988 (CLIA), to perform high complexity or moderate complexity tests. SARS-CoV-2 RNA and nucleic acids from the other respiratory viral and bacterial organisms identified by this test are generally detectable in nasopharyngeal swabs during the acute phase of infection. The detection and identification of specific viral and bacterial nucleic acids from individuals exhibiting signs and/or symptoms of respiratory infection is indicative of the presence of the identified microorganism and aids in the diagnosis of respiratory infection if used in conjunction with other clinical and epidemiological information. Positive results are indicative of the presence of the identified organism, but do not rule out co-infection with other pathogens. The agent(s) detected by the [employer] RP2.1 may not be the definite cause of disease and clinical correlation with patient history and other diagnostic information is necessary to determine patient infection status. Negative results in the setting of a respiratory illness may be due to infection with pathogens not detected by this test, or lower respiratory tract infection that may not be detected by a nasopharyngeal specimen. Negative results do not preclude SARS-CoV-2 infection and should not be used as the sole basis for patient management decisions. Negative KATARINA-CoV-2 results must be combined with clinical observations, patient history and epidemiological information. Negative results for other organisms identified by the test may require additional laboratory testing when evaluating a patient with possible respiratory tract infection. Normal [facility] Comment on above: Performed By: #### C ROWAN, 55607-0, CBCA, PINR #### [facility] ([id number]) [address], [address] [place] [address] S PNEUMONIAE AG Uon 12-01-19 24 S. pneumoniae Ag Ql (U) Negative Normal NEG [facility] Comment on above: Performed By: #### [place], [address]-2, CBCA, PINR #### [facility] ([id number]) [address] [address] [place] [address] Vitamin D+Metabolites [Mass/ Vol]on 12-01-2023 VITAMIN D 25 HYD TOT 10.9 ng/mL Low 30-100 [facility] Comment on above: Result Comment: Vitamin D status 25 [place] Vitamin D Deficiency <20 ng/mL Insufficiency 20-29 ng/mL Sufficiency 30-100 ng/mL Toxicity >100 ng/mL NOTE: A pediatric reference range has not been established by the lathe puller of this kit. The [place] [employer] recommends a Vitamin D level of = or >20ng/mL in infants and children. Performed By: #### C ROWAN, 83139-4, CBCA, PINR #### [facility] ([id number]) [address] [place] [address] BASIC METABOLIC PANLon 11-29 Anion gap [Moles/Vol] 10 mmol/L Normal 5-15 [facility] Comment on above: Performed By: #### T HYR, LIVR, BMP, CBCA #### [facility] ([id number]) [address] [address] [place] [address] Calcium [Mass/Vol] 9.0 mg/dL Normal 8.5-10.5 [facility] Comment on above: Performed By: #### T HYR, LIVR, BMP, CBCA #### [facility] ([id number]) [address] [address] [place] [address] Chloride [Moles/Vol] 109 mmol/L Normal 98-109 [facility] Comment on above: Performed By: #### T HYR, LIVR, BMP, CBCA #### [facility] ([id number]) [address] [address] CO2 [Moles/Vol] 24 mmol/L Normal 22-32 [facility] Comment on above: Performed By: #### T HYR, LIVR, BMP, CBCA #### [facility] ([id number]) [address] [address] Creatinine [Mass/Vol] 0.71 mg/dL Normal 0.40-1.00 [facility] Comment on above: Result Comment: METH OD TRACEABLE TO IDMS STANDARD Performed By: #### T HYR, LIVR, BMP, CBCA #### [facility] ([id number]) [address] [address] eGFR (CKD-EPI) NON-RACE DEPENDENT >90 Normal >59 [facility] Comment on above: Result Comment: Reported eGFR is based on the CKD-EPI 2020 equation that does not use a race coefficient. Performed By: #### T HYR, LIVR, BMP, CBCA #### [facility] ([id number]) [address] [address] [place] [address] Glucose [Mass/Vol] 127 mg/dL High 65-99 [facility] Comment on above: Performed By: #### T HYR, LIVR, BMP, CBCA #### [facility] ([id number]) [address] [address] Potassium [Moles/Vol] 3.2 mmol/L Low 3.5-5.0 [facility] Comment on above: Performed By: #### T HYR, LIVR, BMP, CBCA #### [facility] ([id number]) [address] [place] [address] Sodium [Moles/Vol] 143 mmol/L Normal 134-146 [facility] Comment on above: Performed By: #### T HYR, LIVR, BMP, CBCA #### [facility] ([id number]) [address], [facility] [address] [place] [address] Urea nitrogen [Mass/Vol] 14 mg/dL Normal 5-23 [facility] Comment on above: Performed By: #### T HYR, LIVR, BMP, CBCA #### [facility] ([id number]) [address], [facility] [address] [place] [address] CBC AND AUTO DIFFon 11-30-19 Erythrocyte distribution width (RBC) [Ratio] 19.2 % High 11.5-15.0 [facility] Comment on above: Performed By: #### T HYR, LIVR, BMP, CBCA #### [facility] ([id number]) [address] [address] [place] [address] Hematocrit (Bld) [Volume fraction] 34.2 % Low 35-47 [facility] Comment on above: Performed By: #### T HYR, LIVR, BMP, CBCA #### [facility] ([id number]) [address] [address] [place] [address] Hemoglobin (Bld) [Mass/Vol] 11.5 g/dL Low 11.7-15.5 [facility] Comment on above: Performed By: #### T HYR, LIVR, BMP, CBCA #### [facility] ([id number]) [address] [address] [place] [address] Lymphocytes (Bld) [#/Vol] 1.8 10*3/uL Normal 1.0-3.5 [facility] Comment on above: Performed By: #### T HYR, LIVR, BMP, CBCA #### [facility] ([id number]) [address], [address] [place] [address] Lymphocytes/100 WBC (Bld) 20.2 % Normal [facility] Comment on above: Performed By: #### T HYR, LIVR, BMP, CBCA #### [facility] ([id number]) [address], [facility] [address] [place] [address] MCH (RBC) [Entitic mass] 29.0 pg Normal 27-34 [facility] Comment on above: Performed By: #### T HYR, LIVR, BMP, CBCA #### [facility] ([id number]) [address], [address] [place] [address] MCHC (RBC) [Mass/Vol] 33.8 g/dL Normal 32-36 [facility] Comment on above: Performed By: #### T HYR, LIVR, BMP, CBCA #### [facility] ([id number]) [address], [address] [place] [address] MCV (RBC) [Entitic vol] 86 fL Normal 80-100 [facility] Comment on above: Performed By: #### T HYR, LIVR, BMP, CBCA #### [facility] ([id number]) [address], [address] [place] [address] Monocytes (Bld) [#/Vol] 1.6 10*3/uL High 0-0.9 [facility] Comment on above: Performed By: #### T HYR, LIVR, BMP, CBCA #### [facility] ([id number]) [address], [address] [place] [address] Monocytes/100 WBC (Bld) 17.3 % Normal [facility] Comment on above: Performed By: #### T HYR, LIVR, BMP, CBCA #### [facility] ([id number]) [address], [address] [place] [address] Neutrophils (Bld) [#/Vol] 5.7 10*3/uL Normal 1.5-6.6 [facility] Comment on above: Performed By: #### T HYR, LIVR, BMP, CBCA #### [facility] ([id number]) [address], [facility] [address] [place] [address] OVALOCYTE 1+ Abnormal NONE [facility] Comment on above: Performed By: #### T HYR, LIVR, BMP, CBCA #### [facility] ([id number]) [address], [address] [place] [address] Platelet mean volume (Bld) [Entitic vol] 8.5 fL Normal 7-12 [facility] Comment on above: Performed By: #### T HYR, LIVR, BMP, CBCA #### [facility] ([id number]) [address], [address] [place] [address] Platelets (Bld) [#/Vol] 282 10*3/uL Normal 150-450 [facility] Comment on above: Performed By: #### T HYR, LIVR, BMP, CBCA #### [facility] ([id number]) [address], [address] [place] [address] POLYCHROMASIA 1+ Abnormal NONE [facility] Comment on above: Performed By: #### T HYR, LIVR, BMP, CBCA #### [facility] ([id number]) [address], [address] [place] [address] RBC COUNT 3.97 X10E12/L Normal 3.80-5.20 [facility] Comment on above: Performed By: #### T HYR, LIVR, BMP, CBCA #### [facility] ([id number]) [address], [address] [place] [address] SEG NEUTROPHIL 62.5 % Normal [facility] Comment on above: Performed By: #### T HYR, LIVR, BMP, CBCA #### [facility] ([id number]) [address], [address] [place] [address] WBC (Bld) [#/Vol] 9.1 10*3/uL Normal 4.0-11.0 [facility] Comment on above: Performed By: #### T HYR, LIVR, BMP, CBCA #### [facility] ([id number]) [address], [address] [place] [address] GGTon 11-30-2023 Gamma glutamyl transferase [Catalytic activity/Vol] 26 U/L Normal 7-33 [facility] Comment on above: Performed By: #### 4 2757-5 #### [facility] ([id number]) [address] [place] [address] HGB A1C (GLYCO-HGB)on 2023 Glucose [Mass/Vol] 126 mg/dL Normal [facility] Comment on above: Performed By: #### 4 2757-5 #### [facility] ([id number]) [address] [place] [address] HbA1c (Bld) [Mass fraction] 6.0 % High 4.4-5.6 [facility] Comment on above: Result Comment: NOTE ADA Guidelines Result HgbA1c Normal : less than 5.7 % Prediabetes : 5.7 % to 6.4 % Diabetes : > 6.4 % Use with caution in patients with abnormal hemoglobin variants as the half-life of red blood cells and in vivo glycation rates are affected. Performed By: #### 4 2757-5 #### [facility] ([id number]) [address] [place] [address] Heparin unfractionated Chrom ogenic method Qn (PPP)on 11-30-2023 ANTI XA UFH 0.71 IU/mL High 0.30-0.70 [facility] Comment on above: Result Comment: Opti mal time for testing is 6 hrs post dosage This test is specific for monitoring patients on UFH, and is not recommended for use with other Anti-Xa medications. Performed By: #### 4 2757-5 #### [facility] ([id number]) [address] [place] [address] ANTI XA UFH 0.90 IU/mL Critically high 0.30-0.70 [facility] Comment on above: Result Comment: Opti mal time for testing is 6 hrs post dosage This test is specific for monitoring patients on UFH, and is not recommended for use with other Anti-Xa medications. Performed By: #### 4 2757-5 #### [facility] ([id number]) [address] [place] [address] ANTI XA UFH 1.25 IU/mL Critically high 0.30-0.70 [facility] Comment on above: Result Comment: Opti mal time for testing is 6 hrs post dosage This test is specific for monitoring patients on UFH, and is not recommended for use with other Anti-Xa medications. Performed By: #### 4 2757-5 #### [facility] ([id number]) [address] [place] [address] LIVER PANELon 11-30-2023 Albumin [Mass/Vol] 3.9 g/dL Normal 3.2-5.3 [facility] Comment on above: Performed By: #### T HYR, LIVR, BMP, CBCA #### [facility] ([id number]) [address], [address] [place] [address] ALP [Catalytic activity/Vol] 164 U/L High 39-130 [facility] Comment on above: Performed By: #### T HYR, LIVR, BMP, CBCA #### [facility] ([id number]) [address], [address] [place] [address] ALT [Catalytic activity/Vol] 11 U/L Normal 0-31 [facility] Comment on above: Performed By: #### T HYR, LIVR, BMP, CBCA #### [facility] ([id number]) [address], [address] [place] [address] AST [Catalytic activity/Vol] 15 U/L Normal 0-41 [facility] Comment on above: Performed By: #### T HYR, LIVR, BMP, CBCA #### [facility] ([id number]) [address] [place] [address] Bilirubin [Mass/Vol] 0.5 mg/dL Normal 0.3-1.2 [facility] Comment on above: Performed By: #### T HYR, LIVR, BMP, CBCA #### [facility] ([id number]) [address], [address] [place] [address] Bilirubin.direct [Mass/Vol] 0.1 mg/dL Normal 0.0-0.4 [facility] Comment on above: Performed By: #### T HYR, LIVR, BMP, CBCA #### [facility] ([id number]) [address], [address] [place] [address] Protein [Mass/Vol] 6.8 g/dL Normal 6.0-8.0 [facility] Comment on above: Performed By: #### T HYR, LIVR, BMP, CBCA #### [facility] ([id number]) [address], [address] [place] [address] POTASSIUMon 11-30-2023 Potassium [Moles/Vol] 3.9 mmol/L Normal 3.5-5.0 [facility] Comment on above: Performed By: #### 4 2757-5 #### [facility] ([id number]) [address] [place] [address] THYROID PROFILEon 11-30-2023 Free T4 [Mass/Vol] 0.57 ng/dL Low 0.61-1.60 [facility] Comment on above: Performed By: #### 4 2757-5 #### [facility] ([id number]) [address] [place] [address] TSH 42.72 uIU/mL High 0.49-4.67 [facility] Comment on above: Performed By: #### 4 2757-5 #### [facility] ([id number]) [address] [place] [address] BLOOD CULTUREon 11-29-2023 Bacteria identified Aer cx Nom (Bld) CULTURE RESULTS STAPHYLOCOCCUS HOMINIS STAPHYLOCOCCUS, COAGULASE NEGATIVE NOT S.LUGDUNENSIS VARIANT Coagulase negative staphylococci isolated in multiple cultures within 2 day period have been determined to be different species and are suggestive of collection contamination. Staphylococcus species detected by PCR (not S. aureus, S.epidermidis, or S.lugdunensis). [ S = SUSCEPTIBLE R = RESISTANT I = INTERMEDIATE S-DO = Susceptible-dose dependent NS = Non-suscceptible NO = No Interpretation ] Organism: STAPHYLOCOCCUS HOMINIS Antibiotic Interpretation MAVIS Status CEFAZOLIN S F CLINDAMYCIN S 0.25 F INDUCIBLE RESISTANCE TO CLINDAMYCIN NOT DETECTED OXACILLIN S <=0.25 F TRIMETH/SULFAMETHOXAZOLE S <=.5/9.5 F VANCOMYCIN S <=0.5 F DOXYCYCLINE S <=0.5 F Susceptible [facility] Comment on above: Performed By: #### 4 2757-5 #### [facility] ([id number]) [address] [place] [address] Bacteria identified Aer cx Nom (Bld) CULTURE RESULTS STAPHYLOCOCCUS HOMINIS [ S = SUSCEPTIBLE R = RESISTANT I = INTERMEDIATE S-DO = Susceptible-dose dependent NS = Non-suscceptible NO = No Interpretation ] Organism: STAPHYLOCOCCUS HOMINIS Antibiotic Interpretation MAVIS Status CEFAZOLIN S F CLINDAMYCIN S 0.25 F INDUCIBLE RESISTANCE TO CLINDAMYCIN NOT DETECTED OXACILLIN S <=0.25 F TRIMETH/SULFAMETHOXAZOLE S <=.5/9.5 F VANCOMYCIN S 1 F DOXYCYCLINE S <=0.5 F Susceptible [facility] Comment on above: Performed By: #### 4 2757-5 #### [facility] ([id number]) [address] [place] [address] CBC AND AUTO DIFFon 11-29-19 24 ABSOLUTE BASOPHIL 0.1 X10E9/L Normal 0.0-0.2 [facility] Comment on above: Performed By: #### C ROWAN, 63164-3, CBCA, PINR #### [facility] ([id number]) [address], [address] [place] [address] ABSOLUTE NEUTROPHIL 7.4 X10E9/L High 1.5-6.6 [facility] Comment on above: Performed By: #### C ROWAN, 42775-3, CBCA, PINR #### [facility] ([id number]) [address], [address] [place] [address] Basophils/100 WBC (Bld) 0.8 % Normal [facility] Comment on above: Performed By: #### C ROWAN, 14114-8, CBCA, PINR #### [facility] ([id number]) [address], [address] [place] [address] Eosinophils (Bld) [#/Vol] 0.1 10*3/uL Normal 0.0-0.4 [facility] Comment on above: Performed By: #### C ROWAN, 45607-5, CBCA, PINR #### [facility] ([id number]) [address], [address] [place] [address] Eosinophils/100 WBC (Bld) 0.5 % Normal [facility] Comment on above: Performed By: #### C ROWAN, 11149-6, CBCA, PINR #### [facility] ([id number]) [address] [address] [place] [address] Erythrocyte distribution width (RBC) [Ratio] 18.9 % High 11.5-15.0 [facility] Comment on above: Performed By: #### C ROWAN, 03686-6, CBCA, PINR #### [facility] ([id number]) [address] [address] [place] [address] Hematocrit (Bld) [Volume fraction] 37.4 % Normal 35-47 [facility] Comment on above: Performed By: #### C ROWAN, 06017-8, CBCA, PINR #### [facility] ([id number]) [address] [address] [place] [address] Hemoglobin (Bld) [Mass/Vol] 12.6 g/dL Normal 11.7-15.5 [facility] Comment on above: Performed By: #### C ROWAN, 55392-8, CBCA, PINR #### [facility] ([id number]) [address] [address] Lymphocytes (Bld) [#/Vol] 2.3 10*3/uL Normal 1.0-3.5 [facility] Comment on above: Performed By: #### C ROWAN, 01048-4, CBCA, PINR #### [facility] ([id number]) [address] [address] Lymphocytes/100 WBC (Bld) 21.1 % Normal [facility] Comment on above: Performed By: #### C ROWAN, 12217-3, CBCA, PINR #### [facility] ([id number]) [address] [address] [place] [address] MCH (RBC) [Entitic mass] 29.2 pg Normal 27-34 [facility] Comment on above: Performed By: #### C ROWAN, 32322-2, CBCA, PINR #### [facility] ([id number]) [address] [place] [address] MCHC (RBC) [Mass/Vol] 33.8 g/dL Normal 32-36 [facility] Comment on above: Performed By: #### C ROWAN, 00622-2, CBCA, PINR #### [facility] ([id number]) [address] [place] [address] MCV (RBC) [Entitic vol] 87 fL Normal 80-100 [facility] Comment on above: Performed By: #### C ROWAN, 62024-4, CBCA, PINR #### [facility] ([id number]) [address] [place] [address] Monocytes (Bld) [#/Vol] 1.1 10*3/uL High 0-0.9 [facility] Comment on above: Performed By: #### C MP, 65072-1, CBCA, PINR #### [facility] ([id number]) [address] [place] [address] Monocytes/100 WBC (Bld) 9.8 % Normal [facility] Comment on above: Performed By: #### C ROWAN, 10921-0, CBCA, PINR #### [facility] ([id number]) [address], [address] [place] [address] Neutrophils/100 WBC (Bld) 67.8 % Normal [facility] Comment on above: Performed By: #### C MP, 59393-0, CBCA, PINR #### [facility] ([id number]) [address], [address] [place] [address] Platelet mean volume (Bld) [Entitic vol] 8.8 fL Normal 7-12 [facility] Comment on above: Performed By: #### C MP, 14335-8, CBCA, PINR #### [facility] ([id number]) [address], [address] [place] [address] Platelets (Bld) [#/Vol] 322 10*3/uL Normal 150-450 [facility] Comment on above: Performed By: #### C ROWAN, 12186-9, CBCA, PINR #### [facility] ([id number]) [address], [address] [place] [address] RBC COUNT 4.32 X10E12/L Normal 3.80-5.20 [facility] Comment on above: Performed By: #### C ROWAN, 17819-7, CBCA, PINR #### [facility] ([id number]) [address] [place] [address] WBC (Bld) [#/Vol] 10.9 10*3/uL Normal 4.0-11.0 [facility] Comment on above: Performed By: #### C ROWAN, 72025-9, CBCA, PINR #### [facility] ([id number]) [address], [address] [place] [address] COMPREHENSIVE METABOLIC PANE Faisal 11-29-2023 Albumin [Mass/Vol] 4.5 g/dL Normal 3.2-5.3 [facility] Comment on above: Performed By: #### C ROWAN, 42028-0, CBCA, PINR #### [facility] ([id number]) [address], [address] [place] [address] ALP [Catalytic activity/Vol] 196 U/L High 39-130 [facility] Comment on above: Performed By: #### C ROWAN, 80780-1, CBCA, PINR #### [facility] ([id number]) [address], [address] [place] [address] ALT [Catalytic activity/Vol] 13 U/L Normal 0-31 [facility] Comment on above: Performed By: #### C ROWAN, 66460-4, CBCA, PINR #### [facility] ([id number]) [address] [place] [address] Anion gap [Moles/Vol] 11 mmol/L Normal 5-15 [facility] Comment on above: Performed By: #### C ROWAN, 13280-3, CBCA, PINR #### [facility] ([id number]) [address], [address] [place] [address] AST [Catalytic activity/Vol] 16 U/L Normal 0-41 [facility] Comment on above: Performed By: #### C ROWAN, 60957-9, CBCA, PINR #### [facility] ([id number]) [address] [place] [address] Bilirubin [Mass/Vol] 0.6 mg/dL Normal 0.3-1.2 [facility] Comment on above: Performed By: #### C ROWAN, 61273-2, CBCA, PINR #### [facility] ([id number]) [address] [place] [address] Calcium [Mass/Vol] 9.5 mg/dL Normal 8.5-10.5 [facility] Comment on above: Performed By: #### C ROWAN, 28207-2, CBCA, PINR #### [facility] ([id number]) [address], [address] [place] [address] Chloride [Moles/Vol] 105 mmol/L Normal 98-109 [facility] Comment on above: Performed By: #### C ROWAN, 45536-9, CBCA, PINR #### [facility] ([id number]) [address] [place] [address] CO2 [Moles/Vol] 25 mmol/L Normal 22-32 [facility] Comment on above: Performed By: #### C ROWAN, 39204-2, CBCA, PINR #### [facility] ([id number]) [address] [place] [address] Creatinine [Mass/Vol] 0.59 mg/dL Normal 0.40-1.00 [facility] Comment on above: Result Comment: METH OD TRACEABLE TO IDMS STANDARD Performed By: #### C ROWAN, 26314-4, CBCA, PINR #### [facility] ([id number]) [address] [address] [place] [address] eGFR (CKD-EPI) NON-RACE DEPENDENT >90 Normal >59 [facility] Comment on above: Result Comment: Reported eGFR is based on the CKD-EPI 2020 equation that does not use a race coefficient. Performed By: #### C ROWAN, 08485-1, CBCA, PINR #### [facility] ([id number]) [address] [address] [place] [address] Glucose [Mass/Vol] 91 mg/dL Normal 65-99 [facility] Comment on above: Performed By: #### C ROWAN, 58955-4, CBCA, PINR #### [facility] ([id number]) [address] [address] [place] [address] Potassium [Moles/Vol] 3.8 mmol/L Normal 3.5-5.0 [facility] Comment on above: Performed By: #### C ROWAN, 18215-7, CBCA, PINR #### [facility] ([id number]) [address] [address] [place] [address] Protein [Mass/Vol] 8.0 g/dL Normal 6.0-8.0 [facility] Comment on above: Performed By: #### C ROWAN, 98423-8, CBCA, PINR #### [facility] ([id number]) [address] [address] [place] [address] Sodium [Moles/Vol] 141 mmol/L Normal 134-146 [facility] Comment on above: Performed By: #### C ROWAN, 12185-0, CBCA, PINR #### [facility] ([id number]) [address], [address] [place] [address] Urea nitrogen [Mass/Vol] 12 mg/dL Normal 5-23 [facility] Comment on above: Performed By: #### C ROWAN, 42513-0, CBCA, PINR #### [facility] ([id number]) [address], [address] [place] [address] Lactate (P nancy) [Moles/Vol]o n 11-29-2023 LACTATE W/REFLEX 0.7 mmol/L Normal 0.4-2.0 [facility] Comment on above: Result Comment: Result did not trigger repeat Lactate, re-order if needed. Performed By: #### 3 2132-1 #### [facility] ([id number]) [address], [address] [place] [id number] PROTIME AND INRon 11-29-2023 INR Coag (PPP) [Relative time] 1.2 {INR} High 0.8-1.1 [facility] Comment on above: Performed By: #### C ROWAN, 49700-3, CBCA, PINR #### [facility] ([id number]) [address], [address] [place] [address] PT Coag (PPP) [Time] 14.4 s High 9.8-13.2 [facility] Comment on above: Performed By: #### C ROWAN, 65164-3, CBCA, PINR #### [facility] ([id number]) [address], [address] [place] [address] Troponin I.cardiac (Bld) [Ma ss/Vol]on 11-29-2023 Troponin I.cardiac [Mass/Vol] 0.01 ng/mL Normal 0.00-0.08 [facility] Comment on above: Result Comment: NEW REFERENCE RANGE Performed By: #### 4 2757-5 #### [facility] ([id number]) [address] [place] [address] XR CHEST 1 VWon 11-29-2023 XR CHEST 1 VW XR CHEST 1 VW STUDY: XR CHEST 1 VW INDICATION: Chest pain/SOB. COMPARISON: None FINDINGS/IMPRESSION: * Left basilar opacity compatible with pneumonia. Consider follow-up radiograph in 6-8 weeks to assess for resolution. * Small pleural effusion is better seen on the CT chest from the same day. * Right chest wall port tip is in the upper SVC. * No significant cardiomegaly. * No evidence of pneumothorax. Finalized by Tristan Li on 11/29/2023 7:38 PM Normal [facility] aPTT Coag (PPP) [Time]on aPTT Coag (Bld) [Time] s Critically high 26-37 [facility] Comment on above: Performed By: #### [place], [id number], CBCA, PINR #### [facility] ([id number]) [address], [address] [place] [address] CNOVon 11-20-2023 CNOV Office Visit (RADTSA ) -- JEANMARIE FARIA ([id number]) 1965 F Date Time Provider Department 11/20/23 10:30 AM SALEEM FITCH During your visit today, we recorded the following information about you: Temperature Pulse Respiration Blood pressure 97.6 degrees 60/minute 18/minute 102/65 Weight 73.7 kg Saleem Fitch MD 11/26/2023 9:14 PM Signed Radiation Oncology - Follow Up Note PATIENT NAME: Jeanmarie Faria PATIENT DIAGNOSIS/PATIENT IDENTIFICATION: Ms. Faria is a 58-year-old woman diagnosed with Stage III non-small cell [...] in coordination with Dr. Rodriguez at the [facility] on 05/11/2023 (6,000 cGy delivered in 30 fractions with concurrent carboplatin/paclitaxel). Stent was removed shortly afterwards. INTERVAL HISTORY/ROS: Ms. Faria returns to clinic today for routine follow-up approximately six months after the completion of her radiation treatments and four months since her last visit on 07/13/2023. In the interim, she has been continuing on maintenance immunotherapy with durvalumab under the care of Dr. Rodriguez and reports tolerating it well with no significant issues. She feels that her breathing may be slightly better since her last visit and she continues on supplemental oxygen via nasal cannula at 2 L/min and follows with her front desk monitor Dr. Nair. She denies hemoptysis, pain, or difficulty swallowing but does note a worsening cough over the past several weeks. She did have a CT of the chest on 10/16/2023 which noted a new right upper lobe infiltrate which resolved on repeat CT of the chest a month later on 11/14/2023. The repeat scan was without contrast however neither the prior scan or this one noted any definite evidence of mediastinal or parenchymal disease progression in the chest. She does endorse fatigue with good appetite and increased weight and fair hydration. She otherwise denies any recent fevers, chills, headaches, difficulty with speech/swallowing, chest pain/palpitations, abdominal pain, nausea, vomiting, change in bowel/urinary habits, difficulty with gait/balance, recent falls, etc. The remainder of the review of systems was performed and was otherwise noncontributory. ALLERGIES ALLERGIES No Known Allergies MEDICATIONS: Current Outpatient Medications: levothyroxine (SYNTHROID) 50 mcg tablet STIOLTO RESPIMAT 2.5-2.5 mcg/actuation buPROPion XL (WELLBUTRIN XL) 150 mg 24 hr tablet dilTIAZem CD (CARDIZEM CD, CARTIA XT) 240 mg 24 hr capsule ipratropium-albuterol (DUONEB) 0.5 mg-3 mg(2.5 mg base)/3 mL nebu albuterol HFA (PROVENTIL HFA, VENTOLIN HFA) 90 mcg/actuation inhaler aspirin, enteric coated (ASPIRIN, ENTERIC COATED) 81 mg EC tablet atorvastatin (LIPITOR) 80 mg tablet isosorbide mononitrate ER (IMDUR) 30 mg 24 hr tablet metoprolol succinate ER (TOPROL XL) 100 mg Omeprazole Magnesium 20 mg tablet gabapentin (NEURONTIN) 300 mg capsule sodium chloride 0.9 % nebulizer solution prochlorperazine (COMPAZINE) 10 mg tablet iv contrast (will be provided with radiology test) nitroglycerin sublingual (NITROQUICK) 0.4 mg SL tablet predniSONE (DELTASONE) 20 mg tablet BRILINTA 90 mg tablet traMADol (ULTRAM) 50 mg tablet PHYSICAL EXAM: GENERAL: middle-aged woman sitting in chair in no acute distress. VITALS: BP 102/65 Pulse 60 Temp 97.6 Resp 18 Wt 162 lb 7.7 oz (73.7kg) SpO2 94[O2 at 2L/NC]% KPS: 80 HEENT: NC/AT, anicteric sclera HEART: S1S2 LUNGS: non-labored breathing ABDOMEN: soft MUSCULOSKELETAL: no peripheral edema, moves all extremities. NEURO: no focal deficit; AANDO X3. RADIOLOGIC DATA: CT Chest without contrast (11/14/2023) ASSESSMENT AND PLAN: Ms. Faria is a 58-year-old woman diagnosed with Stage III non-small cell [...] in coordination with Dr. Rodriguez at the [facility] on 05/11/2023 (6,000 cGy delivered in 30 fractions with concurrent carboplatin/paclitaxel). Stent was removed shortly afterwards continues on consolidation Durvalumab. Ms. Faria is stable clinically approximately six months out from the completion of her chemoradiation treatments to the chest. Her most re (more content not included)... Normal [facility] CNPNon 09-25-2023 CNPN Telephone (THORMN) -- GIANAJEANMARIE ([id number]) 1965 F Date Time Provider Department 09/25/23 SAMY GARCIATIERRA ZAPATA During your visit today, we recorded the following information about you: Alber Fernandez 09/25/2023 1:54 PM Signed Received Hem/Onc office notes 09/19/23 from [facility] Record scanned in Epic Alber Fernandez, commercial administrator Alber Fernandez 11/13/2023 4:46 PM Signed Received Hem/Onc office notes 11/07/23 from [facility] Record scanned in Epic Alber Fernandez, commercial administrator Allergies As of Date: 09/25/2023 (No Known Allergies) Date Reviewed: 07/13/2023 Reviewed by: Toney Bailon LPN - Fully Assessed Reason for Visit: Received Outside Medical Records [1021] Prescriptions as of 11/13/2023 - buPROPion XL (WELLBUTRIN XL) 150 mg [...] Encounter Status:Closed by ALBER FERNANDEZ on 09/25/23 [facility] Paul 07-13-2023 CNOV Office Visit (RADTSA ) -- JEANMARIE FARIA ([id number]) 1965 F Date Time Provider Department 07/13/23 [...] in coordination with Dr. Rodriguez at the [facility] on 05/11/2023 (6,000 cGy delivered in 30 fractions with concurrent carboplatin/paclitaxel). INTERVAL HISTORY/ROS: Ms. Faria returns to clinic today for routine follow-up approximately two months after the completion of her radiation treatments. In the interim, she was hospitalized shortly after completion of treatment for pneumonia and arrhythmia (tachycardia). Since discharge she has been on supplemental oxygen ndgkos-smc-wsdng via nasal cannula at 2 L/min. She feels that her cough is improved and denies any hemoptysis but still has some tightness in the chest with deep breaths. She denies any esophagitis that she is swallowing well. She is seeing a front desk monitor and is currently on a nebulizer 3 [...] in coordination with Dr. Rodriguez at the [facility] on 05/11/2023 (6,000 cGy delivered in 30 fractions with concurrent carboplatin/paclitaxel). Ms. Faria continues to recover from the acute toxicities of her recent course of chemoradiation which was complicated by recent hospitalization for pneumonia. She is showing slow improvement but continues to require supplemental oxygen and will follow with her front desk monitor plans for PFTs as well as pulmonary rehab. Initial posttreatment imaging with PET/CT from 07/07/2023 shows exce (more content not included)... Normal [facility] CNPNon 06-27-2023 CNPN Telephone (NCCAP) -- JEANMARIE FARIA ([id number]) 1965 F Date Time Provider Department 06/27/23 SALEEM FITCH During your visit today, we recorded the following information about you: Abdulkadir Landaverde Pino 06/27/2023 11:02 AM Signed Patient called [...] anything Dr. Rodriguez is scheduling) ... Thanks! Saleem Landaverde Pino 06/27/2023 12:50 PM Signed Unfornatualy with her [...] a fairly standard scan after treatment. Thanks! Saleem Landaverde Pino 06/27/2023 2:57 PM Signed So we are [...] PM Signed Patient pet was approved through [employer] she is scheduled this Monday for scan and I did schedule her a followup for next week. thanks Allergies As of Date: 06/27/2023 (No Known Allergies) Date Reviewed: 05/10/2023 Reviewed by: Nilsa Deal RN - Fully Assessed Reason for Visit: Appointment Confirmation [[id number]] Primary Visit Diagnosis:Malignant neoplasm of unspecified part of unspecified bronchus or lung (HCC) [C34.90] Order(s):NM PET/CT SKULL-THIGH SUBSEQUENT [[id number]] Order #: [id number] FUTURE Prescriptions as of 07/03/2023 - prochlorperazine [...] Encounter Status:Closed by PINO ALBRECHT on 06/29/23 [facility] CONSULTon 06-19-2023 CONSULT ------ -- Attestation signed [...] asked her to see PCP or cardiology glynn 1 week for recheck of EKG Maritza Pardo MD [place] Cardiology -- Cardiology Consult Note Reason for [...] history of COPD (chronic obstructive pulmonary disease) ([facility]), Coronary artery disease, Diverticulosis, GERD (gastroesophageal reflux disease), History of transfusion, Hyperlipidemia, Hypertension, Irritable bowel syndrome, Mediastinal mass, Myocardial infarction ([facility]) (11/2021), and Spastic colon. Surgical History She [...] Onset Heart failure Mother Diabetes Mother Other (NE) Mother Hypertension Mother Allergies Patient has no [...] Value Ventricular Rate 99 Atrial Rate 99 [place] Interval 150 QRS DURATION 86 QT Interval 362 QTC CALCULATION(BAZETT) 464 P [place] 32 R-[place] 20 T Wave [place] 170 Impression Sinus rhythm with Premature atrial [...] tracheobronchomalacia that (more content not included)... Normal [facility] HPon 06-19-2023 HP ------ -- Attestation signed by Betito Foss MD at 06/19/2023 11:56 AM Re-explained the procedure to the patient along with the associated risk of pneumothorax, bleeding, hypoxia, and respiratory failure. Patient is agreeable and will proceed with the scheduled bronchoscopy and stent revision/removal Betito Foss MD Interventional Pulmonary Medicine Pulmonary and Critical Care Medicine [facility] Physicians -- H&P reviewed. The patient was [...] in details, she is agreeable. Consent obtained. Normal [facility] Orders Onlyon 06-19-2023 Orders Only [id number] Cyndee Faria 1965 Date Provider Department Center 06/19/2023 MARITZA RAZO [facility] Rossi Count Family History Problem Relation Age of Onset Heart failure Mother Diabetes Mother Other Mother Hypertension Mother Family Status - Relation Status Age at Mother Normal [facility] POCT GLUCOSE METER UNSOLICIT ED RESULTSon 06-19-2023 Glucose [Mass/Vol] 100 mg/dL Normal 70-105 [facility] Comment on above: Order Comment: Waive d Testing in the ED is performed under the ED CLIA certificate #[id number]. Result Comment: ltol les Performed By: #### L [id number] ####[facility] (BEAKER)[address] [place] [address] Orders Onlyon 06-16-2023 Orders Only [id number] Cyndee Faria 1965 F Date Provider Department Center 06/16/2023 1626TOYIN ROMERO [facility] PAT DE Medical Family History Problem Relation Age of Onset Heart failure Mother Diabetes Mother Other Mother Hypertension Mother Family Status - Relation Status Age at Mother Normal [facility] HPon 06-15-2023 HP ------ -- [...] Age: 57 y.o. : 1965 Account No.: [id number] Chief complaint: Stent reversion HPI Jeanmarie Faria [...] was initiated by the patient and conducted flw-pagx-th-face with use of audio-only real time telephone communication between patient and provider for a virtual visit. Verbal consent to provide and bill for this service was obtained on 06/15/2023. No signature was obtained due to the COVID-19 pandemic. Julio Taylor Pulmonary and critical care fellow [facility]. 06/15/23 11:39 AM Normal [facility] Telemedicineon 06-15-2023 Telemedicine [id number] Cyndee Faria 1965 F Date Provider Department Center 06/15/2023 Sukhwinder-BETITO FOSS ONC DCC Family History Problem Relation Age of Onset Heart failure Mother Diabetes Mother Other Mother Hypertension Mother Family Status - Relation Status Age at Mother Level of Service:77096 [place] PHYS/QHP TELEPHONE EVALUATION 21-30 MIN () Reason for Visit and Comments: tracheal mass [Other] - Tracheal stent placed in February [address] Foss for tracheal mass. Dr Rodriguez would like patient bronched for EBUS restaging. Notes scanned into media. CT done 05-29-23. Films in EPIC Normal [facility] CNPNon 06-01-2023 CNPN Telephone (RADTSA) -- JEANMARIE FARIA ([id number]) 1965 F Date Time Provider Department 06/01/23 SALEEM FITCH During your visit today, we recorded the following information about you: Toney Bailon LPN 06/01/2023 9:54 AM Signed I called to get a post radiation therapy update from Jeanmarie. She states she is currently inpatient at [facility] with pneumonia. She will call our [...] Encounter Status:Closed by TONEY BAILON on 06/01/23 [facility] 05-11-2023 [facility] Telephone (WIQ) -- JEANMARIE FARIA ([id number]) 1965 F Date Time Provider Department 05/11/23 RYAN BAIN [place] During your visit today, we recorded the following information about you: Ryan Bain, [facility] 05/11/2023 2:56 PM Signed Smoking Cessation Navigation Outcome of contact: Left Message Comments: A voicemail has been left for this patient regarding Tobacco Cessation support options. If this patient has any further questions they can email us at or call us at [phone]. Tweet[employer] Manager Wireless/Smoking Cessation Navigator: [facility] Allergies As of Date: 05/11/2023 (No Known Allergies) Date Reviewed: 05/10/2023 Reviewed by: Nilsa Deal, BURTON - Fully Assessed Reason for Visit: Smoking [...] (None) Encounter Status:Closed by RYAN BAIN on 9/14/23 [facility] 05-10-2023 CNOV Office Visit (RADTSA ) -- JEANMARIE FARIA ([id number]) 1965 F Date Time Provider Department 05/10/23 12:30 PM SALEEM FITCH RADTSA During your visit today, we recorded the [...] Encounter Status:Closed by SALEEM FITCH on 05/23/23 [facility] CNOVon 05-03-2023 CNOV Office Visit (RADTSA ) -- JEANMARIE FARIA ([id number]) 1965 F Date Time Provider Department 05/03/23 12:30 PM SALEEM FITCH RADLELOA During your visit today, we recorded the [...] Encounter Status:Closed by SALEEM FITCH on 05/16/23 [facility] CNOVon 04-26-2023 CNOV Office Visit (RADTSA ) -- JEANMARIE FARIA ([id number]) 1965 F Date Time Provider Department 04/26/23 [...] of lung [D49.1] Order(s):CONSULT TO SMOKING CESSATION [[id number]] Order #: [id number]: 1 Prescriptions as of 05/09/2023 - prochlorperazine [...] Encounter Status:Closed by SALEEM FITCH on 05/09/23 [facility] CNOVmerced 04-19-2023 CNOV Office Visit (RADTSA ) -- JEANMARIE FARIA ([id number]) 1965 F Date Time Provider Department 04/19/23 [...] Encounter Status:Closed by SALEEM FITCH on 05/02/23 [facility] CNOVon 04-18-2023 CNOV Office Visit (HEMASA ) -- JEANMARIE FARIA ([id number]) 1965 F Date Time Provider Department 04/18/23 BRI BERNARD During your visit today, we recorded the following information about you: Bri Bernard LMT 04/18/2023 2:21 PM Signed Patient Name: Jeanmarie Faria : 1965 Referred [...] Allergies) Date Reviewed: 04/12/2023 Reviewed by: Nilsa Deal, RN - Fully Assessed Primary Visit Diagnosis:Muscle [...] Encounter Status:Closed by BRI BERNARD on 04/18/23 [facility] CNOVon 04-12-2023 CNOV Office Visit (RADTSA ) -- JEANMARIE FARIA ([id number]) 1965 F Date Time Provider Department 04/12/23 2:15 PM SALEEM FITCH RADTSMaribel During your visit today, we recorded the [...] - amoxicillin-clavulani (more content not included)... Normal [facility] Candido 04-11-2023 ERIK Telephone (RADTSA) -- JEANMARIE FARIA ([id number]) 1965 F Date Time Provider Department 04/11/23 [...] Encounter Status:Closed by NILSA DEAL on 04/11/23 [facility] CNOVon 04-05-2023 CNOV Office Visit (RADTSA ) -- JEANMARIE FARIA ([id number]) 1965 F Date Time Provider Department 04/05/23 [...] Status:Closed by [facility]EM [facility] Nurse Visit (RUY) -- JEANMARIE FARIA ([id number]) 1965 F Date Time Provider Department 03/28/23 [...] Encounter Status:Closed by TONEY BAILON on 03/28/23 [facility] CNOVon 03-28-2023 CNOV Office Visit (RADTSA ) -- JEANMARIE FARIA ([id number]) 1965 F Date Time Provider Department 03/28/23 [...] Saleem Fitch MD Referring Provider: SALEEM FITCH [[id number]] Allergies As of Date: 03/28/2023 (No Known [...] time. En (more content not included)... Normal [facility] 03[facility]23-2023 [facility] (HEMTSA[facility] -- JEANMARIE FARIA ([id number]) 1965 F Date Time Provider Department 03/23/23 [...] tongue if needed every 5 minutes for shmaa... (REFER TO PRESCRIPTION NOTES). - Omeprazole Magnesium [...] Encounter Status:Closed by TONEY BAILON on 03/23/23 [facility] CNOVon 03-17-2023 CNOV Office Visit (RADTSA ) -- JEANMARIE FARIA ([id number]) 1965 F Date Time Provider Department 03/17/23 [...] which included preparing to see the patient, lawm-gg-wfym patient care, counseling and educating the patient/family/caregiver, and communicating results to the patient/family/caregiver. This document has been created with the use of voice recognition technology. It may contai (more content not included)... Normal [facility] PET/CT SKULL-THIGH INITon 03-15-2023 [place] PET/CT SKULL-THIGH INIT * * *Final Report* * * DATE OF EXAM: Mar 15 2023 11:07AM NRN 0060 - MN PET/CT SKULL-THIGH INIT / PROCEDURE REASON: Neoplasm of lung * * * * Physician Interpretation * * * * RESULT: EXAM: NM PET/CT SKULL-THIGH INIT HISTORY: 57 years old [...] - Background liver activity (max SUV): 2.8 Computer Programmer (topogram) images: No additional findings. HEAD AND [...] any questions regarding this interpretation, please call [phone]. If you are unable to reach us at the number above, please feel free to contact [facility] at [phone]. [id number] Normal [facility] CNPNon 03-14-2023 CNPN Telephone (THORMN) -- JEANMARIE FARIA ([id number]) 1965 F Date Time Provider Department 03/14/23 STAN GARCIA During your visit today, we recorded the following information about you: Alber Fernandez 03/14/2023 2:32 PM Signed Received Hem/Onc consult notes 03/07/23 from [facility] Record scanned in [facility] pernell Constantino Cassandra 03/27/2023 11:23 AM Signed Received Hem/Onc office notes 03/21/23 from [facility] Record scanned in [facility] pernell Constantino Cassandra 03/28/2023 1:06 PM Signed Received Hem/Onc office notes 03/28/23 from [facility] Record scanned in [facility] pernell Constantino Cassandra 04/18/2023 3:47 PM Signed Received Hem/Onc office notes 04/11/23 from [facility] Record scanned in [facility] pernell Constantino, Alber 04/21/2023 9:33 AM Signed Received OSH Hem/Onc office notes 04/18/[address] [facility] Record scanned in [facility] Alber Harris, commercial administrator Nancy Beach RN 04/21/2023 11:25 AM Addendum noted no surgery apart of plan. BURTON Herrera Cassandra 08/22/2023 9:39 AM Signed Received Hem/Onc office notes 08/15/23 from [facility] Record scanned in [facility] Alber Harris, commercial administrator Allergies As of Date: 03/14/2023 (No [...] Encounter Status:Closed by ALBER FERNANDEZ on 03/14/23 [facility] Candido 03-13-2023 [facility] Telephone (RADTSA) -- JEANMARIE FARIA ([id number]) 1965 F Date Time Provider Department 03/13/23 [...] Sent: 03/13/2023 1:16 PM EDT To: Saleem Fithc MD; Nancy Beach RN Subject: Thoracic Surgery ? Hello Dr Fitch, reaching out as we received a referral from Dr Rodriguez related to this patient, per dr Garcia unresectable, is this your opinion as well? Does she need to come to [facility] for anything? Pt notes she had a stent placed 03/10 and PET planned for 03/15 Thanks for any insight Nacny Beach MSN, RN Nurse Contact Center Team Lead Thoracic Surgery [facility] Nilsa Deal RN 03/13/2023 3:44 PM Signed Call placed to pt and LM Requesting CB to find out if MRI Brain has been scheduled. We are also to find out how her breathing is doing post stent placement. CB requested. BURTON Carey Angela, RN 03/15/2023 11:22 AM Signed Pt returned call. She stated her breathing has improved tremendously. She has not heard yet about her MRI. She is hoping this can be scheduled locally. Pino- can you check with ordering Dr's office to see when they will be setting this up? BURTON Carey, Pino 03/15/2023 11:29 AM Signed Does not look like anything was done with patients MRI I can get her scheduled at [facility] looks like she normally goes there, I tried to call her to ask, looks like her insurance may require auth also Pino Albrecht 03/15/2023 12:58 PM Signed Called [facility] they are calling patient today to schedule appt for this week she said. Toney Bailon LPN 03/21/2023 2:25 PM Signed I called [facility] scheduling dept for an update on the MRI appt. And was told they have received authorization and left a message for the patient to call to schedule. Thanks BRADY Stewart Angela, RN 03/23/2023 12:07 PM Signed Can you please follow up to see if this has been scheduled? BURTON Carey, Pino 03/23/2023 1:29 PM Signed Patient had done today at 11:00Am Nilsa Deal RN 03/23/2023 2:19 PM Signed Freda- please get report and images for Dr Fitch once available. Thank you BURTON Carey [facility], Violeta Maliha 03/24/2023 8:48 AM Signed Report is scanned [...] Encounter Status:Closed by NILSA DEAL on 03/24/23 [facility] HPon 03-10-2023 HP ------ -- Attestation signed by Betito Foss MD at 03/10/2023 10:58 AM Re-explained the procedure to the patient along with the associated risk of pneumothorax, bleeding, hypoxia, and respiratory failure. Patient is agreeable and will proceed with the scheduled rigid bronchoscopy, tumor debulking, and stent Betito Foss MD Interventional Pulmonary Medicine Pulmonary and Critical Care Medicine [facility] Physicians -- History Of Present Illness Jeanmarie [...] Onset Heart failure Mother Diabetes Mother Other (NE) Mother Hypertension Mother Allergies Patient has no [...] using a (more content not included)... Normal [facility] NURSNOTEon 03-10-2023 STEPHANIE Reviewed instruction s with patient and sister, copy given. Stable for DC home. Normal [facility] POCT GLUCOSE METER UNSOLICIT ED RESULTSon 03-10-2023 Glucose [Mass/Vol] 113 mg/dL High 70-105 [facility] Comment on above: Order Comment: Waive d Testing in the ED is performed under the ED CLIA certificate #[id number]. Result Comment: aepp ink Performed By: #### L [id number] ####[facility] (BEAKER)[address] [place] [address] CNOVon 03-08-2023 CNOV Office Visit (RADTSA ) -- JEANMARIE FARIA ([id number]) 1965 F Date Time Provider Department 03/08/23 [...] the [facility] with Saleem Fitch MD. Final recommendations will be communicated back to the requesting physician by way of the shared medical record, or letter to requesting physician via [place] mail. HISTORY OF PRESENT ILLNESS: Ms. Faria is a 57-year-old woman in [place], [place] who was found to have a [...] met with Dr. Rodriguez medical oncology at [facility] and referred to front desk monitor Dr. Foss as an outpatient. She underwent [...] the past year and having had an NE approximately a year ago. She does note [...] Ms. Faria is and lives in the [place], [place] area. 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 She notes an approximate 07-gcod-abfm history of smoking and has reduced down [...] 162 lb (more content not included)... [facility] Tele[facility] (THORMN) -- JEANMARIE FARIA ([id number]) 1965 F Date Time Provider Department 03/08/23 STAN GARCIA During your visit today, we recorded the following information about you: Alber Fernandez 03/09/2023 3:28 PM Addendum LOCAL PATIENT Received Fax from Dr. Archana Noriega Giana is being referred to Stan Garcia M.D., Ph. D. Or Lamonte Guerra by Dr. Archana Rodriguez [address] [place] [address] Patient diagnosis/Reason for consult: Lung Cancer Referral triage process explained: No Patient will receive a call from Thoracic NPM after triage review with surgeon to discuss any additional testing and/or consults that will be scheduled. Pt will then receive a call from our scheduling office for scheduling. Please call pt at [phone]. Patient was informed consultation could be at [place] or [facility]: No Patient Registration: Registration complete/updated: yes Insurance card(s) scanned [facility] with in the past year: Yes: Date: 03/08/23 Pt's MyChart is Pending. Ok to communicate to pt via Lightwirehart not asked Medical Records: Records in [facility] (internal CC records): Yes Imaging in [facility] (internal CC records): Yes Care Everywhere - queried yes, downloaded Yes Linked Outside Organizations (list): [facility]; [facility]; [facility] OS Records Requested: No Date: N/A Outside Hospital(s) requested records from: n/a Received: yes Uploaded: Yes. Waiting on additional records: No. Missing (list): N/A OSH Pathology Slides Requested: no Date: N/A Outside Hospital(s) slides requested from: n/a OSH Radiology Imaging Requested: yes Date: March 08, 2023 Outside Hospital(s) requested imaging from: [facility]. Imaging will be received via Electronic Transfer Received: Yes Imaging uploaded: Yes Waiting on additional: No Missing (list): n/a Additional providers added to Care Teams: Yes Additional Notes/Comments: n/a Enct routed to: Zana Louis for Triage Alber Fernandez, commercial administrator Nancy Beach RN 03/10/2023 3:31 PM Addendum Thoracic Surgery Consultation - review of records for appointment scheduling Received medical records from the office of Archana Rodriguez [address] [place] [address] Patient is being referred to Stan Garcia [...] position. ebus 03/03/2023 Imaging PET/CT: 03/15/[address] [place] [address] (chest) 02/19/23 Cardiopulmonary Testing PFT's/Six: requested [...] discuss PE (more content not included)... Normal [facility] CNPN Telephone (RADTSA) -- JEANMARIE FARIA ([id number]) 1965 F Date Time Provider Department 03/08/23 SALEEM FITCH During your visit today, we recorded the following information about you: Toney Bailon LPN 03/08/2023 2:57 PM Signed I notified Carla with Dr. Gongora's office, cardiology, that eJanmarie will be scheduled for a bronchoscopy with pulmonary stent placement with Dr. Foss, [place] front desk monitor, and will need cardiac clearance. I provided [...] Status:Closed by TONEY BAILON on 03/08/23 [facility] Onlyon 03-08-2023 Orders Only [id number] Cyndee Faria 1965 F Date Provider Department Center 03/08/2023 383-BETITO FOSS [facility] Family History Problem Relation Age of Onset Heart failure Mother Diabetes Mother Other Mother Hypertension Mother Family Status - Relation Status Age at Mother Normal [facility] 29on 03-03-2023 29 Addendum created 03/19 1633 by Rajesh Toussaint DO Order list changed Normal [facility] Anesthesiaon 03-03-2023 Anesthesia [id number] Cyndee Faria 1965 F Date Provider Department Center 03/03/2023 [place]9-DOMOALICIA ZALDIVAR [facility] OR DE Medical C Family History Problem Relation Age of Onset Heart failure Mother Diabetes Mother Other Mother Hypertension Mother Family Status - Relation Status Age at Mother Normal [facility] HISTOLOGY - TISSUE EXAMon LAB AP CASE REPORT Normal [facility] Comment on above: Result Comment: Surg ical Pathology Case: [id number] Authorizing Provider: Betito Foss MD Collected: 03/03/2023 1426 Ordering Location: [facility] Main Operating Room Received: 03/03/20232041 Pathologist: Dorothea Saunders MD Specimen: Trachea/Tracheal, tracheal mass bx Performed By: #### L [id number] ####[facility] ([facility])[address] [place] [address] LAB AP CLINICAL INFORMATION Order Diagnoses [facility] Comment on above: Result Comment: R59. 0 - Mediastinal adenopathy [ICD-10-CM] Performed By: #### L [id number] ####[facility] ([facility])[address] [place] [address] LAB AP GROSS DESCRIPTION [facility] Comment on above: Result Comment: A. T rachea/Tracheal. Part A is received in formalin labeled Jeanmarie Giana and tracheal mass bx. It consists of 4 pieces of ortiz-pink, irregular soft tissue measuring 0.8 x 0.5 x 0.2 cm in aggregate. The specimen is submitted in toto in 1 cassette. Nhi Mab[employer] News Performed By: #### L [id number] ####[facility] ([facility])[address] [place] [address] LAB AP MICROSCOPIC DESCRIPTION Microscopic examination performed. [facility] Comment on above: Performed By: #### L [id number] ####[facility] ([facility])[address] [place] [address] LAB AP REPORT FINAL DIAGNOSIS NARRATIVE Normal [facility] Comment on above: Result Comment: A. T divya mass, biopsy: - Fragments of benign respiratory-type mucosa. - No evidence of carcinoma. Performed By: #### L [id number] ####[facility] ([facility])[address] [place] [address] HPon 03-03-2023 HP ------ -- Attestation signed by Betito Foss MD at 03/03/2023 1:34 PM Re-explained the procedure to the patient along with the associated risk of pneumothorax, bleeding, hypoxia, and respiratory failure. Patient is agreeable and will proceed with the scheduled bronchoscopy and EBUS TBNA Betito Foss MD Interventional Pulmonary Medicine Pulmonary and Critical Care Medicine [facility] -- Pulmonology Progress Patient : Jeanmarie Faria; 57 y.o. Location: No information available for this encounter. Attending: Alberta att. providers found Admit Date: 03/03/2023 Hospital Day: [...] last few weeks so she went to [facility] ER last week, CT scan obtained which [...] Diagnosis Date COPD (chronic obstructive pulmonary disease) ([facility]) Coronary artery disease Diverticulosis GERD (gastroesophageal reflux disease) History of transfusion Hyperlipidemia Hypertension Irritable bowel syndrome Mediastinal mass Myocardial infarction ([facility]) 11/2021 Spastic colon No Known Allergies Social [...] Onset Heart failure Mother Diabetes Mother Other ([place]) Mother Hypertension Mother Outpatient Medications: (Not in [...] for: GBMAB (more content not included)... Normal [facility] NON-TECHNICAL SERVICES COORDINATOR CYTOLOGY - CELLULAR EXAMon 03-03-2023 LAB AP ADDENDUM 1 Normal [facility] Comment on above: Result Comment: This case ([id number]) was sent to [facility] for the TSO3 xT tumor panel. Findings were as follows: Somatic: Potentially Actionable KRAS: G12C Somatic: Biologically Relevant PTPRD: S497* GATA6: R76fs TP53: R248W B2M: S40* STAG2: K92* Germline: Pathogenic/Likely Pathogenic No matched normal sample was received, therefore germline sequencing was not performed. Pertinent Negatives EGFR, BRAF, ALK, ROS1, RET, MET, ERBB2 Immunotherapy Markers Tumor Mutational [place] (TMB): 13.2 m/MB Microsatellite Instability Status (MSI): Stable PD-L1 22C3 IHC: Too few tumor cells present Comment: See separate [facility] xT report for a complete description with interpretive content and potential clinical trials. Addendum electronically signed by Jie Nolan MD on 05/03/2023 at 10:46 AM Performed By: #### L [id number] ####[facility] ([facility])[address] [place] [place] [address] LAB AP ASR DISCLAIMER The interpretation of [...] Clinical Laboratory Improvement Amendments of 1998. Normal [facility] Comment on above: Performed By: #### L [id number] ####[facility] (BEAKER)[address] [place] [place] [address] LAB AP CASE REPORT Normal [facility] Comment on above: Result Comment: Non- gynecologic Cytology Case: [id number] Authorizing Provider: Betito Foss MD Collected: 03/03/2023 1352 Ordering Location: [facility] Main Operating Room Received: 03/03/2023 1434 Pathologist: Jie Nolan MD Specimen: Trachea/Tracheal, tracheal mass FNA Performed By: #### L [id number] ####[facility] ([facility])[address] [place] [address] LAB AP CLINICAL INFORMATION Mediastinal mass adjacent/abutting the superior margin of the left mainstem bronchus, anterior margin of the aorta, and anterior esophagus (3 cm), COPD, tobacco use Normal [facility] Comment on above: Performed By: #### L [id number] ####[facility] ([facility])[address] [place] [address] LAB AP DIAGNOSIS COMMENT Normal [facility] Comment on above: Result Comment: Immu nohistochemistry with controls performed. Lesional cells positive for CK5/6. Focal weak positivity with p63 is identified. In a background of abundant necrosis scantly to moderately cellular are scattered malignant tumor cell clusters and single malignant cells identified. Contact molecular pathology for requests for ancillary molecular testing. See also concurrent biopsy, [id number]. Performed By: #### L [id number] ####[facility] ([facility])[address] [place] [address] LAB AP GROSS DESCRIPTION A. 2 air-dried slides, 2 alcohol-fixed slides, 30 mL CytoLyt with hazy, red fluid and red/white particles [facility] Comment on above: Performed By: #### L [id number] ####[facility] ([facility])[address] [place] [address] LAB AP INTRAOPERATIVE CONSULTATION [facility] Comment on above: Result Comment: A. [...] material submitted.* Performed By: #### L [id number] ####[facility] ([facility])[address] [place] [address] LAB AP MICROSCOPIC DESCRIPTION Satisfactory for evaluation. Examination of the prepared smears and cell block reveals tumor cells arranged in aggregates and as single cells with dense cytoplasm, enlarged round to oval nuclei, irregular chromatin, and prominent nucleoli in a background of abundant necrosis, benign bronchial cells, and blood. [facility] Comment on above: Performed By: #### L [id number] ####[facility] ([facility])[address] [place] [address] LAB AP REPORT FINAL DIAGNOSIS NARRATIVE [facility] Comment on above: Result Comment: A. T divya mass, EBUS-guided fine needle aspiration: - Most consistent with squamous cell carcinoma (see microscopic description and comment). Performed By: #### L [id number] ####[facility] (BE[facility])[address] [place] [address] POCT GLUCOSE METER UNSOLICIT ED RESULTSon 03-03-2023 Glucose [Mass/Vol] 120 mg/dL High 70-105 [facility] Comment on above: Order Comment: Waive d Testing in the ED is performed under the ED CLIA certificate #[id number]. 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 Do not wear perfume, make-up, nail dominican, or lotions on the day of your [...] need to make any changes, please call [phone]. Notify your surgeon if you develop any illness such as a cold, cough, fever, sore throat or vomiting between now and your surgery. Thank you for entrusting us with your care. [facility] Surgical Services Team Normal [facility] Prep for Procedureon 023 Prep for Procedure [id number] Cyndee Faria 1965 F Date Provider Department Center 02/27/2023 [facility] [place] Family History Problem Relation Age of Onset Heart failure Mother Diabetes Mother Other Mother Hypertension Mother Family Status - Relation Status Age at Mother Normal [facility] Orders Onlyon 02-24-2023 Orders Only [id number] Cyndee Faria 1965 F Date Provider Department Center 02/24/2023 [facility] [place] Family History Problem Relation Age of Onset Heart failure Mother Diabetes Mother Other Mother Hypertension Mother Family Status - Relation Status Age at Mother [facility] Activated partial thrombopla stin time (aPTT) in platelet poor plasma by coagulation aOrdered By: Teo Gongora on 12-30-2022 aPTT Coag (PPP) [Time] 35.6 s 25.1-36.5 [facility] Basophils Auto (Bld) [#/Vol] Ordered By: Teo Gongora on 12-30-2022 Basophils (Bld) [#/Vol] 0.1 10*3/uL 0.0-0.2 [facility] Basophils/100 WBC Auto (Bld) Ordered By: Teo Gongora on 12-30-2022 Basophils/100 WBC (Bld) 0.9 % . [facility] Blood Urea Nitrogenon 2022 Urea nitrogen [Mass/Vol] 13 mg/dL Normal 7-25 [facility] Comment on above: Performed By: #### P P, CREAT, HCGQUAL, CBC, LYTES, BUN, LIPID #### [facility] [address] Carbon dioxide, total [Moles /volume] in Serum or PlasmaOrdered By: Teo Gongora on 12-30-2022 CO2 [Moles/Vol] 22.7 mmol/L 21.0-31.0 [facility] Chloride [Moles/volume] in S mony or PlasmaOrdered By: Teo Gongora on 12-30-2022 Chloride [Moles/Vol] 106 mmol/L 98-107 [facility] Cholesterol [Mass/volume] in Serum or PlasmaOrdered By: Teo Gongora on 12-30-2022 Cholesterol [Mass/Vol] 121 mg/dL 140-200 [facility] Comment on above: Chol less than 200 m g/dl low riskChol 201-239 mg/dl borderline riskChol 240 mg/dl and greater high risk Cholesterol in LDL Calc [Mas s/Vol]Ordered By: Teo Gongora on 12-30-2022 Cholesterol in LDL [Mass/Vol] 59 mg/dL 0-100 [facility] Comment on above: LDL ATP III CLASSIFI CATIONLDL less than 100 mg/dL OptimalLDL 100-129 mg/dL Near or above optimalLDL 130-159 mg/dL Borderline highLDL 160-189 mg/dL HighLDL greater than 189 mg/dL Very high Cholesterol in VLDL Calc [Ma ss/Vol]Ordered By: Teo Gongora on 12-30-2022 Cholesterol in VLDL [Mass/Vol] 26 mg/dL [facility] Choriogonadotropin.beta subu nit [Units/volume] in Serum or PlasmaOrdered By: Teo Gongora on 12-30-2022 HCG.beta subunit Qn Negative [facility] Coagulation Profileon 2022 aPTT Coag (Bld) [Time] 35.6 s Normal 25.1-36.5 [facility] Comment on above: Result Comment: PERF ORMED BY: [place] [address] PATHOLOGIST HEARING IMPAIRED TEACHER EUSEBIO DOWELL M.D. Performed By: #### P P, CREAT, HCGQUAL, CBC, LYTES, BUN, LIPID #### [address] INR Coag (PPP) [Relative time] 1.1 {INR} Normal [facility] Comment on above: Result Comment: INR [...] CREAT, HCGQUAL, CBC, LYTES, BUN, LIPID #### [facility] [address] [place] [address] PT Coag (PPP) [Time] 12.2 s Normal 9.0-12.9 [facility] Comment on above: Performed By: #### P P, CREAT, HCGQUAL, CBC, LYTES, BUN, LIPID #### [address] Complete Blood Count Auto Di ffon 12-30-2022 Basophils (Bld) [#/Vol] 0.1 10*3/uL Normal 0.0-0.2 [facility] Comment on above: Result Comment: PERF ORMED BY: [place] [address] PATHOLOGIST HEARING IMPAIRED TEACHER EUSEBIO DOWELL M.D. Performed By: #### P P, CREAT, HCGQUAL, CBC, LYTES, BUN, LIPID #### [place] [id number] [place] Basophils/100 WBC (Bld) 0.9 % Normal . [facility] Comment on above: Performed By: #### P P, CREAT, HCGQUAL, CBC, LYTES, BUN, LIPID #### [address] Eosinophils (Bld) [#/Vol] 0.1 10*3/uL Normal 0.0-0.45 [facility] Comment on above: Performed By: #### P P, CREAT, HCGQUAL, CBC, LYTES, BUN, LIPID #### [address] Eosinophils/100 WBC (Bld) 1.0 % Normal . [facility] Comment on above: Performed By: #### P P, CREAT, HCGQUAL, CBC, LYTES, BUN, LIPID #### [address] Erythrocyte distribution width (RBC) [Ratio] 15.2 % Normal 11.9-15.3 [facility] Comment on above: Performed By: #### P P, CREAT, HCGQUAL, CBC, LYTES, BUN, LIPID #### [address] Hematocrit (Bld) [Volume fraction] 40.6 % Normal 34.0-46.4 [facility] Comment on above: Performed By: #### P P, CREAT, HCGQUAL, CBC, LYTES, BUN, LIPID #### [address] Hemoglobin (Bld) [Mass/Vol] 13.6 g/dL Normal 11.8-15.4 [facility] Comment on above: Performed By: #### P P, CREAT, HCGQUAL, CBC, LYTES, BUN, LIPID #### [address] Lymphocytes (Bld) [#/Vol] 3.5 10*3/uL Normal 1.00-4.8 [facility] Comment on above: Performed By: #### P P, CREAT, HCGQUAL, CBC, LYTES, BUN, LIPID #### [address] Lymphocytes/100 WBC (Bld) 27.2 % Normal . [facility] Comment on above: Performed By: #### P P, CREAT, HCGQUAL, CBC, LYTES, BUN, LIPID #### [address] MCH (RBC) [Entitic mass] 30.0 pg Normal 24.7-34.3 [facility] Comment on above: Performed By: #### P P, CREAT, HCGQUAL, CBC, LYTES, BUN, LIPID #### [address] MCV (RBC) [Entitic vol] 89.6 fL Normal 80-100 [facility] Comment on above: Performed By: #### P P, CREAT, HCGQUAL, CBC, LYTES, BUN, LIPID #### [address] Mean Corpuscular HGB Conc 33.4 g/dL Normal 32.0-35.0 [facility] Comment on above: Performed By: #### P P, CREAT, HCGQUAL, CBC, LYTES, BUN, LIPID #### [address] Monocytes (Bld) [#/Vol] 1.3 10*3/uL High 0.0-0.8 [facility] Comment on above: Performed By: #### P P, CREAT, HCGQUAL, CBC, LYTES, BUN, LIPID #### [address] Monocytes/100 WBC (Bld) 10.1 % Normal . [facility] Comment on above: Performed By: #### P P, CREAT, HCGQUAL, CBC, LYTES, BUN, LIPID #### [address] Neutrophils (Bld) [#/Vol] 7.8 10*3/uL High 1.8-7.7 [facility] Comment on above: Performed By: #### P P, CREAT, HCGQUAL, CBC, LYTES, BUN, LIPID #### [address] Neutrophils/100 WBC (Bld) 60.8 % Normal . [facility] Comment on above: Performed By: #### P P, CREAT, HCGQUAL, CBC, LYTES, BUN, LIPID #### [address] NRBC% 0.2 /100{WBC} Normal 0-0.5 [facility] Comment on above: Performed By: #### P P, CREAT, HCGQUAL, CBC, LYTES, BUN, LIPID #### [address] Platelet mean volume (Bld) [Entitic vol] 8.2 fL Normal 6.3-10.7 [facility] Comment on above: Performed By: #### P P, CREAT, HCGQUAL, CBC, LYTES, BUN, LIPID #### [facility] [address] [place] [address] Platelets (Bld) [#/Vol] 338 10*3/uL Normal 150-450 [facility] Comment on above: Performed By: #### P P, CREAT, HCGQUAL, CBC, LYTES, BUN, LIPID #### [facility] [address] [place] [address] RBC (Bld) [#/Vol] 4.53 10*6/uL Normal 3.60-5.00 [facility] Comment on above: Performed By: #### P P, CREAT, HCGQUAL, CBC, LYTES, BUN, LIPID #### [address] WBC (Bld) [#/Vol] 12.8 10*3/uL High 3.8-11.6 [facility] Comment on above: Performed By: #### P P, CREAT, HCGQUAL, CBC, LYTES, BUN, LIPID #### [facility] [address] [place] [id number] [place] Creatinineon 12-30-2022 Creatinine [Mass/Vol] 0.69 mg/dL Normal 0.60-1.20 [facility] Comment on above: Performed By: #### P P, CREAT, HCGQUAL, CBC, LYTES, BUN, LIPID #### [facility] [address] [place] [id number] [place] GFR/1.73 sq M.predicted MDRD (S/P/Bld) [Vol rate/Area] mL/min/{1.73_m2} Normal [facility] Comment on above: Performed By: #### P P, CREAT, HCGQUAL, CBC, LYTES, BUN, LIPID #### [facility] [address] Creatinine [Mass/volume] in Serum or PlasmaOrdered By: Teo Gongora on 12-30-2022 Creatinine [Mass/Vol] 0.69 mg/dL 0.60-1.20 [facility] ECG 12 lead ECGon 12-30-2022 ECG 12 lead ECG [facility] Main [place] [address] [place] [address] Electrocardiograph Report Signed Patient: Jeanmarie Faria MR#: [id number] 49 : 1965 Acct:[id number] Age/Sex: 57 / F ADM Date: 12/30/22 Loc: Room: Type: [facility] Attending Dr: Teo Gongora DO Ordering Provider: Teo Gongora DO Date of Service: 12/30/2201/18/1056 ECG/ECG 12 lead ECG: [facility] Copies to: Test Reason : Blood [...] change was found Confirmed by CHINO JERRY [facility], BOLIVAR ([id number]) on 01/01/2023 12:37:24 AM Referred By: Electronically Signed By:BOLIVAR MAGANA MD [facility] Transcribed By: MUS Signed By Bolivar Magana MD, [facility] 01/01/23 0037 Normal [facility] Electrolyteson 12-30-2022 Anion gap [Moles/Vol] 12.3 mmol/L Normal 6.0-15.0 [facility] Comment on above: Performed By: #### P P, CREAT, HCGQUAL, CBC, LYTES, BUN, LIPID #### [address] Chloride [Moles/Vol] 106 mmol/L Normal 98-107 [facility] Comment on above: Performed By: #### P P, CREAT, HCGQUAL, CBC, LYTES, BUN, LIPID #### [address] CO2 [Moles/Vol] 22.7 mmol/L Normal 21.0-31.0 [facility] Comment on above: Performed By: #### P P, CREAT, HCGQUAL, CBC, LYTES, BUN, LIPID #### [address] Potassium [Moles/Vol] 4.0 mmol/L Normal 3.5-5.1 [facility] Comment on above: Performed By: #### P P, CREAT, HCGQUAL, CBC, LYTES, BUN, LIPID #### [address] Sodium [Moles/Vol] 137 mmol/L Normal 136-145 [facility] Comment on above: Performed By: #### P P, CREAT, HCGQUAL, CBC, LYTES, BUN, LIPID #### [address] Eosinophils Auto (Bld) [#/Vo l]Ordered By: Teo Gongora on 12-30-2022 Eosinophils (Bld) [#/Vol] 0.1 10*3/uL 0.0-0.45 [facility] Eosinophils/100 WBC Auto (Bl d)Ordered By: Teo Gongora on 12-30-2022 Eosinophils/100 WBC (Bld) 1.0 % . [facility] Erythrocyte distribution wid th Auto (RBC) [Ratio]Ordered By: Teo Gongora on 12-30-2022 Erythrocyte distribution width (RBC) [Ratio] 15.2 % 11.9-15.3 [facility] HCG,Qualitative Serumon HCG,Qualitative Serum Negative Normal [facility] Comment on above: Result Comment: PERF ORMED BY: [place] [address] PATHOLOGIST HEARING IMPAIRED TEACHER EUSEBIO DOWELL M.D. Performed By: #### P P, CREAT, HCGQUAL, CBC, LYTES, BUN, LIPID #### [address] Hematocrit Auto (Bld) [Volum e fraction]Ordered By: Teo Gongora on 12-30-2022 Hematocrit (Bld) [Volume fraction] 40.6 % 34.0-46.4 [facility] Hemoglobin [Mass/volume] in BloodOrdered By: Teo Gongora on 12-30-2022 Hemoglobin (Bld) [Mass/Vol] 13.6 g/dL 11.8-15.4 [facility] Laboratory - Chemistry and C hemistry - challengeon 12-30-2022 Cholesterol [Mass/Vol] 121\S\121 below low threshold 140-200 [facility] edgar 250 DO Work Phone: Comment on above: Chol less than 200 m g/dl low risk Chol 201-239 mg/dl borderline risk Chol 240 mg/dl and greater high risk Cholesterol in LDL [Mass/Vol] 59\S\59 Normal 0-100 [email or web address] edgar 250 DO Work Phone: Comment on above: LDL ATP III CLASSIFI CATION LDL less than 100 mg/dL Optimal LDL 100-129 mg/dL Near or above optimal LDL 130-159 mg/dL Borderline high LDL 160-189 mg/dL High LDL greater than 189 mg/dL Very high Laboratory - CoagulationOrde red By: Teo Gongora on 12-30-2022 PT Coag (PPP) [Time] 12.2 s 9.0-12.9 [facility] Leukocytes [#/volume] correc roney for nucleated erythrocytes in Blood by Automated counOrdered By: Teo Gongora on 12-30-2022 WBC corrected for nucl RBC Auto (Bld) [#/Vol] 12.8 10*3/uL 3.8-11.6 [facility] Lipid Panelon 12-30-2022 Cholesterol [Mass/Vol] 121 mg/dL Low 140-200 [facility] Comment on above: Result Comment: Chol less than 200 mg/dl low risk Chol 201-239 mg/dl borderline risk Chol 240 mg/dl and greater high risk Performed By: #### P P, CREAT, HCGQUAL, CBC, LYTES, BUN, LIPID #### [facility] [address] Cholesterol in HDL [Mass/Vol] 35 mg/dL Normal 35-85 [facility] Comment on above: Result Comment: HDL CHOL ATP-III CLASSIFICATION Cardiovascular Risk HDL > or equal to 60 mg/dL LOW HDL < 40 mg/dL HIGH Performed By: #### P P, CREAT, HCGQUAL, CBC, LYTES, BUN, LIPID #### [facility] [address] Cholesterol.total/Chol esterol in HDL [Mass ratio] 3.5 {ratio} Normal <5.0 [facility] Comment on above: Performed By: #### P P, CREAT, HCGQUAL, CBC, LYTES, BUN, LIPID #### [facility] [address] LDL Cholesterol,Calculated 59 mg/dL Normal 0-100 [facility] Comment on above: Result Comment: LDL ATP III CLASSIFICATION LDL less than 100 mg/dL Optimal LDL 100-129 mg/dL Near or above optimal LDL 130-159 mg/dL Borderline high LDL 160-189 mg/dL High LDL greater than 189 mg/dL Very high Performed By: #### P P, CREAT, HCGQUAL, CBC, LYTES, BUN, LIPID #### [facility] [address] [place] [id number] [facility] Triglyceride w/Reflex 133 mg/dL Normal 0-149 [facility] Comment on above: Result Comment: TRIG ATP III CLASSIFICATION TRIG less than 150 mg/dL Normal TRIG 150-199 mg/dL Borderline high TRIG 200-500 mg/dL High TRIG greater than 500 mg/dL Very high Standard traceable to the Center for Disease Conrtrol and Prevention (CDC) test method. Performed By: #### P P, CREAT, HCGQUAL, CBC, LYTES, BUN, LIPID #### [facility] [address] [place] [id number] [facility] VLDL CHOLESTEROL 26 mg/dL Normal [facility] Comment on above: Performed By: #### P P, CREAT, HCGQUAL, CBC, LYTES, BUN, LIPID #### [facility] [address] [place] [id number] [facility] Lymphocytes Auto (Bld) [#/Vo l]Ordered By: Teo Gongora on 12-30-2022 Lymphocytes (Bld) [#/Vol] 3.5 10*3/uL 1.00-4.8 [facility] Lymphocytes/100 WBC Auto (Bl d)Ordered By: Teo Gongora on 12-30-2022 Lymphocytes/100 WBC (Bld) 27.2 % . [facility] MCH Auto (RBC) [Entitic mass ]Ordered By: Teo Gongora on 12-30-2022 MCH (RBC) [Entitic mass] 30.0 pg 24.7-34.3 [facility] MCHC Auto (RBC) [Mass/Vol]Or dered By: Teo Gongora on 12-30-2022 MCHC (RBC) [Mass/Vol] 33.4 g/dL 32.0-35.0 [facility] MCV Auto (RBC) [Entitic vol] Ordered By: Teo Gongora on 12-30-2022 MCV (RBC) [Entitic vol] 89.6 fL 80-100 [facility] Monocytes Auto (Bld) [#/Vol] Ordered By: Teo Gongora on 12-30-2022 Monocytes (Bld) [#/Vol] 1.3 10*3/uL 0.0-0.8 [facility] Monocytes/100 WBC Auto (Bld) Ordered By: Teo Gongora on 12-30-2022 Monocytes/100 WBC (Bld) 10.1 % . [facility] Neutrophils Auto (Bld) [#/Vo l]Ordered By: Teo Gongora on 12-30-2022 Neutrophils (Bld) [#/Vol] 7.8 10*3/uL 1.8-7.7 [facility] Neutrophils/100 WBC Auto (Bl d)Ordered By: Teo Gongora on 12-30-2022 Neutrophils/100 WBC (Bld) 60.8 % . [facility] No Panel InformationOrdered By: Teo Gongora on 12-30-2022 Estimated GFR (CKD-EPI) > 60.0 mL/Min [facility] Creatinine Clearance (Chem N/A [facility] No Panel Informationon 12-30 60.8\S\60.[address] [facility] [address] DO Work Phone: 8.2\S\8.2 Normal 6.3-10.7 [facility] [address] 250 DO Work Phone: [phone]\S\338 Normal 150-450 [facility] [address] 250 DO Work Phone: [phone] 15.2\S\15.2 Normal 11.9-15.3 [facility] [address] 250 DO Work Phone: [phone] 33.4\S\33.4 Normal 32.0-35.0 [facility] 250 DO Work Phone: [phone] 30.0\S\30.0 Normal 24.7-34.3 [facility] 250 DO Work Phone: 7.8\S\7.8 above high threshold 1.8-7.7 -[facility] edgar 250 DO Work Phone: [phone] 0.2\S\0.2 Normal 0-0.5 [facility] [address] 250 DO Work Phone: 0.9\S\0.[address] [facility]-Sandu edgar 250 DO Work Phone: [phone] 1.0\S\1.[address] [facility]-Sandu edgar 250 DO Work Phone: [phone] 10.1\S\10.[address] [facility]-Sandu edgar 250 DO Work Phone: [phone] 27.2\S\27.[address] [facility]-Sandu edgar 250 DO Work Phone: [phone] 0.1\S\0.1 Normal 0.0-0.45 -[facility] edgar 250 DO Work Phone: [phone] Comment on above: PERFORMED BY:[place] [address] [place] [place], [place] [phone] MEDICAL DIRECTOREUSEBIO DOWELL M.D. 1.3\S\1.3 above high threshold 0.0-0.8 [facility]-Sandu edgar 250 DO Work Phone: [phone] 3.5\S\3.5 Normal <5.0 [facility]-Sandu edgar 250 DO Work Phone: [phone] 89.6\S\89.6 Normal 80-100 [facility]-Sandu edgar 250 DO Work Phone: [phone] 40.6\S\40.6 Normal 34.0-46.4 [facility]Sandu edgar 250 DO Work Phone: [phone] 13.6\S\13.6 Normal 11.8-15.4 [facility]-Sandu edgar 250 DO Work Phone: [phone] 4.53\S\4.53 Normal 3.60-5.00 [facility]-Sandu edgar 250 DO Work Phone: [phone] 12.8\S\12.8 above high threshold 3.8-11.6 -[facility] edgar 250 DO Work Phone: [phone] 35.6\S\35.6 Normal 25.1-36.5 [facility]-Sandu edgar 250 DO Work Phone: Comment on above: PERFORMED BY:[facility] [place], [place] [phone] MEDICAL DIRECTOREUSEBIO DOWELL M.D. 1.1\S\1.1 Normal -[facility]-Heleneu edgar 250 DO Work Phone: Comment [...] valves: 3 - 4.5 12.2\S\12.2 Normal 9.0-12.9 [facility]-Heleneu edgar 250 DO Work Phone: [phone] 12.3\S\12.3 Normal 6.0-15.0 [facility]-Niecy edgar 250 DO Work Phone: 22.7\S\22.7 Normal 21.0-31.0 [facility]-Heleneu edgar 250 DO Work Phone: 106\S\106 Normal 98-107 [facility]Niecy edgar 250 DO Work Phone: [phone] 4.0\S\4.0 Normal 3.5-5.1 [facility]-Heleneu edgar 250 DO Work Phone: [phone] 137\S\137 Normal 136-145 [facility]Sandu edgar 250 DO Work Phone: 13\S\13 Normal 7-25 [facility]Sandu edgar 250 DO Work Phone: > 60.[address] [facility] ed[facility] 250 DO Work Phone: 0.69\S\0.69 Normal 0.60-1.20 [facility]ree edgar 250 DO Work Phone: 26\S\[address] [facility] edgar [facility] DO Work Phone: 133\S\133 Normal 0-149 [facility] edgar 250 DO Work Phone: Comment on above: TRIG ATP III CLASSIF ICATION TRIG less than 150 mg/dL Normal TRIG 150-199 mg/dL Borderline high TRIG 200-500 mg/dL High TRIG greater than 500 mg/dL Very high Standard traceable to the Center for Disease Conrtrol and Prevention (CDC) test method. 35\S\35 Normal 35-85 [facility] [employer] Nanali DO Work Phone: Comment on above: HDL CHOL ATP-III CLA SSIFICATION Cardiovascular Risk HDL > or equal to 60 mg/dL LOW HDL < 40 mg/dL HIGH Negative Normal [facility] Nanali DO Work Phone: Comment on above: PERFORMED BY:[place] [id number] [place], [place] [phone] MEDICAL DIRECTOREUSEBIO DOWELL M.D. Nucleated erythrocytes [Pres ence] in Blood by Automated countOrdered By: Teo Gongora on 12-30-2022 Nucleated RBC Auto Ql (Bld) 0.2 /100{WBC} 0-0.5 [facility] Platelet mean volume Auto (B ld) [Entitic vol]Ordered By: Teo Gongora on 12-30-2022 Platelet mean volume (Bld) [Entitic vol] 8.2 fL 6.3-10.7 [facility] Platelet poor plasma interna tional normalized ratio (INR) by coagulation assay (relatOrdered By: Teo Gongora on 12-30-2022 INR Coag (PPP) [Relative time] 1.1 {INR} [facility] Comment on above: INR Therapeutic Rang [...] 12-30-2022 Platelets (Bld) [#/Vol] 338 10*3/uL 150-450 [facility] Potassium [Moles/volume] in Serum or PlasmaOrdered By: Teo Gongora on 12-30-2022 Potassium [Moles/Vol] 4.0 mmol/L 3.5-5.1 [facility] RBC Auto (Bld) [#/Vol]Ordere d By: Teo Gongora on 12-30-2022 RBC (Bld) [#/Vol] 4.53 10*6/uL 3.60-5.00 [facility] Serum or plasma anion gap de terminationOrdered By: Teo Gongora on 12-30-2022 Anion gap [Moles/Vol] 12.3 mmol/L 6.0-15.0 [facility] Serum or plasma high density lipoprotein (HDL) cholesterol measurementOrdered By: Teo Gongora on 12-30-2022 Cholesterol in HDL [Mass/Vol] 35 mg/dL 35-85 [facility] Comment on above: HDL CHOL ATP-III CLA SSIFICATION Cardiovascular RiskHDL > or equal to 60 mg/dL LOWHDL < 40 mg/dL HIGH Serum or plasma total choles terol/high density lipoprotein (HDL) cholesterol mass ratOrdered By: Teo Gongora on 12-30-2022 Cholesterol.total/Chol esterol in HDL [Mass ratio] 3.5 {ratio} <5.0 [facility] Sodium [Moles/volume] in Ser um or PlasmaOrdered By: Teo Gongora on 12-30-2022 Sodium [Moles/Vol] 137 mmol/L 136-145 [facility] Triglyceride [Mass/volume] i n Serum or PlasmaOrdered By: Teo Gongora on 12-30-2022 Triglyceride [Mass/Vol] 133 mg/dL 0-149 [facility] Comment on above: TRIG ATP III CLASSIF ICATIONTRIG less than 150 mg/dL NormalTRIG 150-199 mg/dL Borderline highTRIG 200-500 mg/dL High TRIG greater than 500 mg/dL Very highStandard traceable to the Center for Disease Conrtrol and Prevention (CDC) test method. Urea nitrogen [Mass/volume] in Serum or PlasmaOrdered By: Teo Gongora on 12-30-2022 Urea nitrogen [Mass/Vol] 13 mg/dL 7-25 [facility] WBC Auto (Bld) [#/Vol]Ordere d By: Teo Gongora on 12-30-2022 WBC (Bld) [#/Vol] 12.8 10*3/uL 3.8-11.6 [facility] Office Visit (Cardiology)on 12-28-2022 Follow-up visit [...] She has a history of non-ST elevation NE in November 2021 with two-vessel revascularization involving [...] Recorded: 28Dec2022 11:26AM Heart Rate68, L Radial Dvzhayaj996, LUE, Sitting Jduhealul62, LUE, Sitting Height5 ft 4 in Cyuoji291 lb BMI Hzlkvmumyg08.01 kg/m2 BSA Calculated1.82 Tobacco Usea) Yes Patient [...] no acute (more content not included)... Normal Cards Off Tobacco Screening.on 023 Adult depression screening assessment No [facility] [address] DO Work Phone: Tobacco use status CP a) Yes [facility] 250 DO Work Phone: Tobacco Screening. Yes [facility] [address] 250 DO Work Phone: XR CHEST 2 [...] by: ABELARDO FLANNERY Date: 2022-08-11 11:03 Normal [facility] CARDIAC DANETTE 3-6on 2 CK [Catalytic activity/Vol] 64 U/L Normal 26-192 [facility] Comment on above: Performed By: #### C MREP ####[facility] [address] [place] [id number]. Jozef Marrero CK.MB [Mass/Vol] 0.84 ng/mL Normal <=3.[address] [facility] Comment on above: Performed By: #### C MREP ####[facility] [address] [place] [id number]. Jozef Marrero HSTROP 19.7 pg/mL Normal 4.0-51.[address] [facility] Comment on above: Result Comment: CUT- OFF POINTS HAVE BEEN ESTABLISHED BASED ON THE FOURTH UNIVERSAL DEFINITIONS OF MYOCARDIAL INFARCTION. THE UPPER REFERENCE LIMIT (URL) OF TROPONIN, DEFINED THE 99TH PERCENTILE OF cTnI DISTRIBUTION IN A REFERENCE POPULATION, HAS BEEN CONFIRMED THE DECISION THRESHOLD FOR NE DIAGNOSIS. Performed By: #### C MREP ####[facility] [address] [place] [address]Dr. Jozef Marrero CARDIAC DANETTE ADMITon 022 CK [Catalytic activity/Vol] 63 U/L Normal 26-192 [facility] Comment on above: Performed By: #### KAILYN Everett MP ####[facility] [address] [place] [id number]. Jozef Marrero CK.MB [Mass/Vol] 0.78 ng/mL Normal <=3.[address] [facility] Comment on above: Performed By: #### Marguerite DONAHUE CMADM ####[facility] [address] [place] [phone]. Jozef Marrero HSTROP 19.6 pg/mL Normal 4.0-51.[address] [facility] Comment on above: Result Comment: CUT- OFF POINTS HAVE BEEN ESTABLISHED BASED ON THE FOURTH UNIVERSAL DEFINITIONS OF MYOCARDIAL INFARCTION. THE UPPER REFERENCE LIMIT (URL) OF TROPONIN, DEFINED THE 99TH PERCENTILE OF cTnI DISTRIBUTION IN A REFERENCE POPULATION, HAS BEEN CONFIRMED THE DECISION THRESHOLD FOR NE DIAGNOSIS. Performed By: #### Marguerite DONAHUE CMADM ####[facility] [address] [place] [phone]. Jozef Marrero DIANA 19 ng/mL Normal 9-[address] [facility] Comment on above: Performed By: #### B MP, CMADM ####[facility] [address] [place] [address]Dr. Jozef Marrero CBC W MANUAL DIFFon 06-23-20 22 ATYPICAL LYMPH # Normal [facility] Comment on above: Performed By: #### C JENN #### [facility] [address] [place] [address] [address] Jozef Marrero ATYPICAL LYMPH % Normal [facility] Comment on above: Performed By: #### C JENN #### [facility] [address] [place] [address] [address] Jozef Marrero BAND # 0.0 103/ul Normal 0.0-0.3 [facility] Comment on above: Performed By: #### C JENN #### [facility] [address] [place] [address] [address] Jozef Marrero BAND % 0 % Normal 0-5 [facility] Comment on above: Performed By: #### C JENN #### [facility] [address] [place] [address] Dr. Jozef Marrero BASOM # 0.11 103/ul Critically high 0.00-0.10 [facility] Comment on above: Performed By: #### C JENN #### [facility] [address] [place] [address] Dr. Jozef Marrero BASOM % 1.0 % Normal 0.2-2.0 [facility] Comment on above: Performed By: #### C JENN #### [facility] [address] [place] [address] Dr. Jozef Marrero BLAST # Normal [facility] Comment on above: Performed By: #### C JENN #### [facility] [address] [place] [address] Dr. Jozef Marrero BLAST % Normal [facility] Comment on above: Performed By: #### C JENN #### [facility] [address] [place] [address] Dr. Jozef Marrero CORRECTED WBC Normal 4.0-11.[address] [facility] Comment on above: Performed By: #### C JENN #### [facility] [address] [place] [address] Dr. Jozef Marrero EOS # 0.00 103/ul Normal 0.00-0.70 [facility] Comment on above: Performed By: #### C JENN #### [facility] [address] [place] [address] Dr. Jozef Marrero EOS% 0.0 % Critically low 0.9-7.0 [facility] Comment on above: Performed By: #### C JENN #### [facility] [address] [place] [address] Dr. Jozef Marrero HCT 40.1 % Normal 36.0-48.0 [facility] Comment on above: Performed By: #### C JENN #### [facility] [address] [place] [address] Dr. Jozef Marrero HGB 13.7 g/dl Normal 12.0-16.0 [facility] Comment on above: Performed By: #### C JENN #### [facility] [address] [place] [address] Dr. Jozef Marrero LYMPHM # 2.70 103/ul Normal 1.20-3.80 [facility] Comment on above: Performed By: #### C JENN #### [facility] [address] [place] [address] Dr. Jozef Marrero LYMPHM% 25.0 % Normal 20.5-60.0 [facility] Comment on above: Performed By: #### C JENN #### [facility] [address] [place] [address] Dr. Jozef Marrero MCH 30.4 pg Normal 26.7-34.0 [facility] Comment on above: Performed By: #### C JENN #### [facility] [address] [place] [address] Dr. Jozef Marrero MCHC 34.2 g/dl Normal 29.9-35.2 [facility] Comment on above: Performed By: #### Bennett BARAJAS #### [facility] [address] [place] [address] Dr. Jozef Marrero MCV 88.9 fL Normal 81.0-99.0 [facility] Comment on above: Performed By: #### C JENN #### [facility] [address] [place] [address] Dr. Jozef Marrero METAMYELOCYTE # Normal [facility] Comment on above: Performed By: #### C JENN #### [facility] [address] [place] [address] Dr. Jozef Marrero METAMYELOCYTE % Normal [facility] Comment on above: Performed By: #### C JENN #### [facility] [address] [place] [address] Dr. Jozef Marrero MONOM# 0.97 103/ul Critically high 0.30-0.80 [facility] Comment on above: Performed By: #### C JENN #### [facility] [address] [place] [address] Dr. Jozef Marrero MONOM% 9.0 % Normal 1.7-12.0 [facility] Comment on above: Performed By: #### C JENN #### [facility] [address] [place] [address] Dr. Jozef Marrero MPV 9.9 fL Normal 9.5-13.5 [facility] Comment on above: Performed By: #### Bennett BARAJAS #### [facility] [address] [place] [address] Dr. Jozef Marrero MYELOCYTE # Normal [facility] Comment on above: Performed By: #### C JENN #### [facility] [address] [place] [address] Dr. Jozef Marrero MYELOCYTE % Normal [facility] Comment on above: Performed By: #### C JENN #### [facility] [address] [place] [address] Dr. Jozef Marrero NRBC Normal [facility] Comment on above: Performed By: #### C JENN #### [facility] [address] [place] [address] Dr. Jozef Marrero PLT 339 103/ul Normal 150-[address] [facility] Comment on above: Performed By: #### C JENN #### [facility] [address] [place] [address] [address] Jozef Marrero RBC 4.51 106/ul Normal 4.20-5.40 [facility] Comment on above: Performed By: #### C THIENJUANITA #### [facility] [address] [place] [address] [address] Jozef Marrero RDW 14.6 % Normal 11.0-15.0 [facility] Comment on above: Performed By: #### C JENN #### [facility] [address] [place] [address] [address] Jozef Marrero SEG # 7.02 103/ul Critically high 1.40-6.50 [facility] Comment on above: Performed By: #### C JENN #### [facility] [address] [place] [address] Dr. Jozef Marrero SEG % 65.0 % Normal 43.0-75.0 [facility] Comment on above: Performed By: #### C JENN #### [facility] [address] [place] [address] Dr. Jozef Marrero WBC 10.8 103/ul Normal 4.0-11.0 [facility] Comment on above: Performed By: #### C JENN #### [facility] [address] [place] [address] Dr. Jozef Marrero Cov[facility]on [facility]29 SARS-CoV-2 (COVID-19) RNA NEVA+probe Ql (Unsp spec) Detected Critically abnormal NOT DETECTED [facility] Comment on above: Result Comment: This test is not yet approved or cleared by the [place] FDA. When there are no FDA-approved or cleared tests available, and other criteria are met, FDA can make tests available under an emergency access mechanism called an Emergency Use Authorization (EUA). The EUA for this test is supported by the [place] of Health and Human Service's declaration that [...] used). Performed By: #### C VDTBH #### [facility] [address] [place] [address] [address] Jozef Marrero D-DIMERon 06-23-2022 D-DIMER 0.53 mg/L FEU Normal <=0.59 [facility] Comment on above: Performed By: #### D DIM ####[facility] [address] [place] [address]Dr. Jozef Marrero D-DIMER COMMENTS SEE BELOW Normal [facility] Comment on above: Result Comment: Incr [...] generalized hospitalization. Performed By: #### D DIM ####[facility] [address] [place] [address]Dr. Jozef Marrero PROF CHEM 8 (BAS METB)on Anion gap [Moles/Vol] 12.6 mmol/L Normal [facility] Comment on above: Performed By: #### B KAILYN DONAHUE ####[facility] [address] [place] [id number] Marrero Calcium [Mass/Vol] 8.9 mg/dL Normal 8.5-10.[address] [facility] Comment on above: Performed By: #### B KAILYN DONAHUE ####[facility] [address] [place] [address]DrElbert Marrero Chloride [Moles/Vol] 104 mmol/L Normal 98-[address] [facility] Comment on above: Performed By: #### B KAILYN DONAHUE ####[facility] [address] [place] [address]DrElbert Marrero CO2 [Moles/Vol] 24.7 mmol/L Normal 21.0-32.0 [facility] Comment on above: Performed By: #### B KAILYN DONAHUE ####[facility] [address] [place] [address]Dr. Jozef Marrero Creatinine [Mass/Vol] 0.85 mg/dL Normal 0.55-1.02 [facility] Comment on above: Performed By: #### B KAILYN DONAHUE ####[facility] [address] [place] [address]Dr. Jozef Marrero EGFR-AF ARMENIAN >60 Normal >=[address] [facility] Comment on above: Performed By: #### B KAILYN DONAHUE ####[facility] [address] [place] [address]Dr. Jozef Marrero EGFR-NON AF ARMENIAN >60 Normal >=[address] [facility] Comment on above: Performed By: #### B KIALYN DONAHUE ####[facility] [address] [place] [address]Dr. Jozef Marrero Glucose [Mass/Vol] 123 mg/dL Critically high 74-106 [facility] Comment on above: Performed By: #### B KAILYN DONAHUE ####[facility] [address] [place] [address]Dr. Jozef Marrero Potassium [Moles/Vol] 3.3 mmol/L Critically low 3.5-5.1 [facility] Comment on above: Performed By: #### B KAILYN DONAHUE ####[facility] [address] [place] [address]Dr. Jozef Marrero Sodium [Moles/Vol] 138 mmol/L Normal 136-[address] [facility] Comment on above: Performed By: #### B KAILYN DONAHUE ####[facility] [address] [place] [address]Dr. Jozef Marrero Urea nitrogen [Mass/Vol] 19.0 mg/dL Critically high 7.0-18.0 [facility] Comment on above: Performed By: #### B KAILYN DONAHUE ####[facility] [address] [place], [place] [address]LhElbert Mrarero Urea nitrogen/Creatinine [Mass ratio] 22.4 mg/mg Normal [facility] Comment on above: Performed By: #### B KAILYN DONAHUE ####[facility] [address] [place], [place] [address]RkElbert Marrero XR CHEST 1 Von 06-23-2022 XR CHEST 1 V CLINICAL HISTORY: [...] JAMIE NEGRON Date: 2022-06-23 02:[address] [facility] Office Visit (Cardiology)on 05-05-2022 Follow-up visit [...] Weight Tips; Status:Complete - Retrospective Authorization; Done: 05May2022 Some eating tips that can help you lose weight.; Status:Complete - Retrospective Authorization; Done: [id number] SocHx: Current smoker You need to stop smoking. Though it is not easy, more than half of all adult smokers have quit. We encourage you to write down all the reasons you should quit smoking and set a quit date for yourself. Ask us how we can help. You may also call 3-701-WEHN-NOW for free resources and assistance.; Status:Complete - Retrospective Authorization; Done: [id number] Tobacco Use Screening; Status:Complete; Done: [id number] Patient Instructions Please bring all medicines, vitamins, [...] Recorded: 05May2022 11:41AM Heart Rate80, L Radial Uwjxtkyp065, LUE, Sitting Xkbzrqngb29, LUE, Sitting Height5 ft 4 in Jgjceb257 lb BMI Waccicrswo24.92 kg/m2 BSA Calculated1.74 Tobacco Usea) Yes Patient encouraged to stop using tobacco productsYes Falls Screening (Age 18+)c) Not medically indicated Physical Exam Constitutional: alert and in no acute distress. Neck: neck is supple, symmetric, trachea midline, no masses and no thyromegaly . Pulmonary: no increased work of breathing or signs of respira (more content not included)... Normal Cards Off Tobacco Screening.on 022 Fall risk assessment c) Not medically indicated [facility] [employer]-IO-Magine 250 DO Work Phone: Tobacco use status [facility] a) Yes [facility] Heart-FoodieBytes.comu edgar 250 DO Work Phone: Tobacco Screening. Yes [facility] Heart-Sandu edgar 250 DO Work Phone: [...] Physician: Dr. Brett Gongora DO Diagnosis: SYNCOPE NO equipment agreement signed. JEANMARIE understands monitor is to be returned on: 02/24/2022 Monitor number [id number] applied. Holter monitor returned and downloaded. Holter monitor printed and placed on Dr. Brett Gongora DO desk to dictate. Diagnosis/Problems Assessed History of syncope (V15.89) (Z87.898) Future Appointments Date/TimeProviderSpecialty Site 05/05/2022 11:20 Brett Reich [id number] [facility] 2 [facility] 250 Signatures Electronically signed by : Isabel Cagle APRN-DIVERSIFIED CROPS II FARMWORKER; Feb 25 2022 12:14PM EST (Author) Electronically signed by : Brett Gongoar DO; Mar 18 2022 3:39PM EST (Author) Normal Touchworks Echocardiogramon 02-22-[address], [address] [place] [address] TRANSTHORACIC ECHOCARDIOGRAM REPORT Patient Name: JEANMARIE FARIA Suleiman Physician: [id number] Bolivar Magana MD, [facility] Study Date: 02/22/2022 Referring [id number] BRETT GONGORA Physician: MRN/PID: [id number] PCP: Aris Stewart MD Accession/Order#: [id number] Department [facility] Location: Date of : 1965 Fellow: Gender: F Nurse: Admit Date: Transformation Coach: Fern Cardona RD, T Height: 162.56 cm CC Report to: Weight: 63.05 kg Study Type: Echocardiogram BSA: 1.68 m2 Blood Pressure: 128 /70 mmHg Diagnosis/ICD: I42.2-Other hypertrophic cardiomyopathy; R06.00-Dyspnea, unspecified Indication: NE and PTCA-11/2021, Tobacco Abuse, Syncope Procedure/CPT: Echo Limited-19525 Study Detail: The following Echo studies were [...] 36.90 cm LVOT Diameter: 2.10 cm (1.8-2.4cm) [id number] Bolivar Magana MD, FACC Electronically signed on 02/24/2022 at 8:25:04 PM Final Normal [facility] Echocardiography Please click on the link to view the study images Normal [facility] Heart-Sandu edgar 250 DO Work Phone: MG MAMM SCREEN 3D GIANNI CADon 02-21-2022 MG MAMM SCREEN 3D GIANNI CAD Patient: JEANMARIE FARIA Exam Date: 02/21/2022 : 1965 Gender:F Ordering : DR ARIS STEWART DMartín Admission #: [id number] Family : Order #: [id number] CLICK HERE TO VIEW EXAM RADIOLOGY REPORT PROCEDURE: MAMMOGRAM SCREENING 3D BILATERAL CAD COMPARISON: None. INDICATIONS: Screening for malignant neoplasm of breast Calculator Name NCI Breast Cancer Risk Assessment Tool 5 Year Breast Cancer Risk 1.90% Lifetime Breast Cancer Risk 13.60% Personal Breast Cancer No Personal Ovarian Cancer No Treatments None Family Cancers None LOCATION: [facility] BREAST COMPOSITION: Scattered areas fibroglandular density. [...] MD on 02/21/2022 at 14:[address] [facility] Covid-19 PCR (CVDTBH)on SARS-CoV-2 (COVID-19) RNA NEVA+probe Ql (Unsp spec) Not detected Normal NOT DETECTED [facility] Comment on above: Result Comment: This test is not yet approved or cleared by the [place] FDA. When there are no FDA-approved or cleared tests available, and other criteria are met, FDA can make tests available under an emergency access mechanism called an Emergency Use Authorization (EUA). The EUA for this test is supported by the [place] of Health and Human Service's (HHS's) declaration [...] consistent with SARS-CoV-2. Performed By: #### C [facility] #### [facility] [address] [place] [address] Dr. Jozef Marrero Office Visit (Cardiology)on 01-25-2022 [...] Hold For - Scheduling,Retrospective Authorization Requested for: [id number] Agreement : I agree to have my [...] we can help. You may also call 5-305-KOHZNOW for free resources and assistance.; Status:Complete - Retrospective Authorization; Done: [id number] Tobacco Use Screening; Status:Complete; Done: [id number] Patient Instructions Please bring all medicines, vitamins, [...] 56-year-old female returns following recent non-ST elevation NE, , Discharged December 16, following revascularization of [...] has a history of heart transplantation in [place], and was sent to a [facility] with similar flulike illness and was diagnosed with influenza. Patient remains on appropriate postinfarction guideline directed medical therapies, she still smoking 1/2 pack cigarettes a day but is cut back quite a bit. We continue to financial services counselor her extensively on tobacco cessation and [...] TabletTAKE 1 (more content not included)... Normal Cards Off Tobacco Screening.on 022 Adult depression screening assessment No [facility] Work Phone: Adult depression screening assessment Yes [facility] Work Phone: Fall risk assessment a) No falls within the last year [facility] Work Phone: Tobacco use status [facility] a) Yes [facility] Work Phone: Tobacco Screening. Yes [facility] Work Phone: Tobacco Screening. 2-More than half the days [facility] Work Phone: Tobacco Screening. 0-Not at all [facility] Work Phone: Tobacco Screening. 3-Nearly every day [facility] Work Phone: Tobacco Screening. Not difficult at all [facility] Work Phone: Blood hemoglobin measurement (mass/volume)Ordered By: Viviane Loco on 12-16-2021 Hemoglobin (Bld) [Mass/Vol] 14.1 g/dL 11.8-15.4 [facility] Creatinine and Glomerular fi ltration rate.predicted panel (S/P/Bld)Ordered By: Viviane Loco on 12-16-2021 Creatinine [Mass/Vol] 0.72 mg/dL 0.44-1.03 [facility] Erythrocyte distribution wid th Auto (RBC) [Ratio]Ordered By: Viviane Loco on 12-16-2021 Erythrocyte distribution width (RBC) [Ratio] 14.4 % 11.9-15.3 [facility] Estimated glomerular filtrat ion rate (GFR) non- AmericanOrdered By: Viviane Loco on 12-16-2021 GFR/1.73 sq M.predicted among non-blacks MDRD (S/P/Bld) [Vol rate/Area] > 60 mL/Min [facility] Hematocrit Auto (Bld) [Volum e fraction]Ordered By: Viviane Loco on 12-16-2021 Hematocrit (Bld) [Volume fraction] 42.2 % 34.0-46.4 [facility] MCH Auto (RBC) [Entitic mass ]Ordered By: Viviane Loco on 12-16-2021 MCH (RBC) [Entitic mass] 29.8 pg 24.7-34.3 [facility] MCHC Auto (RBC) [Mass/Vol]Or dered By: Viviane Loco on 12-16-2021 MCHC (RBC) [Mass/Vol] 33.3 g/dL 32.0-35.0 [facility] MCV Auto (RBC) [Entitic vol] Ordered By: Viviane Loco on 12-16-2021 MCV (RBC) [Entitic vol] 89.4 fL 80-100 [facility] No Panel InformationOrdered By: Viviane Loco on 12-16-2021 Estimated GFR () > 60 mL/Min [facility] Comment on above: GFR estimated refere nce range: According to KDOQI guidelines, <60 ml/min/1.73m2 is sufficient to diagnose a patient with chronic kidney disease. Pharmacy Creatinine Clearance (Chem 77.13 [facility] Platelet mean volume Auto (B ld) [Entitic vol]Ordered By: Viviane Loco on 12-16-2021 Platelet mean volume (Bld) [Entitic vol] 8.7 fL 6.3-10.7 [facility] Platelets Auto (Bld) [#/Vol] Ordered By: Viviane Loco on 12-16-2021 Platelets (Bld) [#/Vol] 304 10*3/uL 150-450 [facility] RBC Auto (Bld) [#/Vol]Ordere d By: Viviane Loco on 12-16-2021 RBC (Bld) [#/Vol] 4.72 10*6/uL 3.60-5.00 [facility] Serum or plasma calcium chuck urement (mass/volume)Ordered By: Viviane Loco on 12-16-2021 Calcium [Mass/Vol] 9.6 mg/dL 8.2-10.2 [facility] Serum or plasma chloride susan surement (moles/volume)Ordered By: Viviane Loco on 12-16-2021 Chloride [Moles/Vol] 105 mmol/L 95-114 [facility] Serum or plasma glucose chuck urement (mass/volume)Ordered By: Viviane Loco on 12-16-2021 Glucose [Mass/Vol] 90 mg/dL 70-100 [facility] Comment on above: ADA recommended refe rence rangeRandom Glucose Reference Range is dependent on time and content of last meal. Glucose of more than 200 mg/dL in a nonstressed, ambulatory subject supports the diagnosis of Diabetes Mellitus. Serum or plasma potassium me asurement (moles/volume)Ordered By: Viviane Loco on 12-16-2021 Potassium [Moles/Vol] 4.0 mmol/L 3.5-5.1 [facility] Serum or plasma sodium measu rement (moles/volume)Ordered By: Viviane Loco on 12-16-2021 Sodium [Moles/Vol] 136 mmol/L 136-146 [facility] Serum or plasma total carbon dioxide measurement (moles/volume)Ordered By: Viviane Loco on 12-16-2021 CO2 [Moles/Vol] 21.5 mmol/L 22.0-30.0 [facility] Serum or plasma urea nitroge n measurement (mass/volume)Ordered By: Viviane Loco on 12-16-2021 Urea nitrogen [Mass/Vol] 12 mg/dL 9 [facility] Troponin I.cardiac [Mass/vol ume] in Serum or Plasma by High sensitivity methodOrdered By: Teo Gongora on 12-16-2021 Troponin I.cardiac High sensitivity method [Mass/Vol] 6412 pg/mL 0-15 [facility] Comment on above: Results calledat 080 2 on 12/16/21 WBC Auto (Bld) [#/Vol]Ordere d By: Viviane Loco on 12-16-2021 WBC (Bld) [#/Vol] 12.5 10*3/uL 3.8-11.6 [facility] Basophils Auto (Bld) [#/Vol] Ordered By: Viviane Loco on 12-15-2021 Basophils (Bld) [#/Vol] 0.1 10*3/uL 0.0-0.2 [facility] Basophils/100 WBC Auto (Bld) Ordered By: Viviane Loco on 12-15-2021 Basophils/100 WBC (Bld) 0.7 % [facility] Cholesterol [Mass/volume] in Serum or PlasmaOrdered By: Viviane Loco on 12-15-2021 Cholesterol [Mass/Vol] 262 mg/dL 140-200 [facility] Comment on above: Chol less than 200 m g/dl low riskChol 201-239 mg/dl borderline riskChol 240 mg/dl and greater high risk Cholesterol in LDL Calc [Mas s/Vol]Ordered By: Viviane Loco on 12-15-2021 Cholesterol in LDL [Mass/Vol] 202 mg/dL 0-100 [facility] Comment on above: LDL ATP III CLASSIFI CATIONLDL less than 100 mg/dL OptimalLDL 100-129 mg/dL Near or above optimalLDL 130-159 mg/dL Borderline highLDL 160-189 mg/dL HighLDL greater than 189 mg/dL Very high Cholesterol in VLDL Calc [Ma ss/Vol]Ordered By: Viviane Loco on 12-15-2021 Cholesterol in VLDL [Mass/Vol] 27 mg/dL [facility] Eosinophils Auto (Bld) [#/Vo l]Ordered By: Viviane Adityaskiene on 12-15-2021 Eosinophils (Bld) [#/Vol] 0.1 10*3/uL 0.0-0.45 [facility] Eosinophils/100 WBC Auto (Bl d)Ordered By: Viviane Trianae on 12-15-2021 Eosinophils/100 WBC (Bld) 0.5 % [facility] Laboratory - Hematology and Cell countsOrdered By: Viviane Loco on 12-15-2021 Nucleated RBC/100 WBC (Bld) [Ratio] 0.1 % 0-0.5 [facility] WBC (Bld) [#/Vol] 13.3 10*3/uL 4.5-11.0 [facility] Lymphocytes Auto (Bld) [#/Vo l]Ordered By: Viviane Loco on 12-15-2021 Lymphocytes (Bld) [#/Vol] 3.8 10*3/uL 1.00-4.8 [facility] Lymphocytes/100 WBC Auto (Bl d)Ordered By: Viviane Trianae on 12-15-2021 Lymphocytes/100 WBC (Bld) 28.9 % [facility] Monocytes Auto (Bld) [#/Vol] Ordered By: Viviane Trianae on 12-15-2021 Monocytes (Bld) [#/Vol] 1.3 10*3/uL 0.0-0.8 [facility] Monocytes/100 WBC Auto (Bld) Ordered By: Viviane Adityaskiene on 12-15-2021 Monocytes/100 WBC (Bld) 9.5 % [facility] Neutrophils Auto (Bld) [#/Vo l]Ordered By: Viviane Adityaskiene on 12-15-2021 Neutrophils (Bld) [#/Vol] 8.0 10*3/uL 1.8-7.7 [facility] Neutrophils/100 WBC Auto (Bl d)Ordered By: Viviane Adityaskiene on 12-15-2021 Neutrophils/100 WBC (Bld) 60.4 % [facility] Serum or plasma high density lipoprotein (HDL) cholesterol measurementOrdered By: Viviane Loco on 12-15-2021 Cholesterol in HDL [Mass/Vol] 33 mg/dL 35-85 [facility] Comment on above: HDL CHOL ATP-III CLA SSIFICATION Cardiovascular RiskHDL > or equal to 60 mg/dL LOWHDL < 40 mg/dL HIGH Serum or plasma total choles terol/high density lipoprotein (HDL) cholesterol mass ratOrdered By: Viviane Loco on 12-15-2021 Cholesterol.total/Chol esterol in HDL [Mass ratio] 7.9 {ratio} [facility] Triglyceride [Mass/volume] i n Serum or PlasmaOrdered By: Viviane Loco on 12-15-2021 Triglyceride [Mass/Vol] 135 mg/dL 35-149 [facility] Comment on above: TRIG ATP III CLASSIF ICATIONTRIG less than 150 mg/dL NormalTRIG 150-199 mg/dL Borderline highTRIG 200-500 mg/dL High TRIG greater than 500 mg/dL Very highStandard traceable to the Center for Disease Conrtrol and Prevention (CDC) test method. AMYLASEon 12-14-2021 Amylase [Catalytic activity/Vol] 33 U/L Normal 25-115 [facility] Comment on above: Performed By: #### A MY, LIVER, BMP, LIPA, HSTROPN ####[facility] [address] [place] [id number]. Jozef Marrero CBC W MANUAL DIFFon 12-15-19 22 ATYPICAL LYMPH # 2.72 103/ul Normal [facility] Comment on above: Performed By: #### C JENN ####[facility] [address]sp[address] [place] [id number]. Jozef Marrero ATYPICAL LYMPH % 17 % Normal [facility] Comment on above: Performed By: #### C JENN ####[facility] Yeahzvbqum[address] [place] [phone]. Jozef Marrero BAND # Normal 0.0-0.[address] [facility] Comment on above: Performed By: #### C JENN ####[facility] [address]upnzqs[address] [place] [phone]. Yianirudh Marrero BAND % Normal 0-[address] [facility] Comment on above: Performed By: #### C JENN ####[facility] [address] [place] [address]Dr. Jozef Marrero BASOM # 0.00 103/ul Normal 0.00-0.[address] [facility] Comment on above: Performed By: #### C JENN ####[facility] [address] [place] [address]Dr. Jozef Marrero BASOM % 0.0 % Critically low 0.2-2.[address] [facility] Comment on above: Performed By: #### C JENN ####[facility] [address] [place], [place] [address]Dr. Jozef Marrero BLAST # Normal [facility] Comment on above: Performed By: #### C JENN ####[facility] [address] [place], [place] [address]Dr. Yianirudh Marrero BLAST % Normal [facility] Comment on above: Performed By: #### C JENN ####[facility] [address] [place], [place] [address]Dr. Jozef Marrero CORRECTED WBC Normal 4.0-11.[address] [facility] Comment on above: Performed By: #### C JENN ####[facility] Qragjwinnn[address] [place], [place] [address]Dr. Jozef Marrero EOS # 0.16 103/ul Normal 0.00-0.[address] [facility] Comment on above: Performed By: #### C JENN ####[facility] [address] [place] [address]Dr. Jozef Marrero EOS% 1.0 % Normal 0.9-7.[address] [facility] Comment on above: Performed By: #### C JENN ####[facility] [address] [place], [place] [address]Dr. Jozef Marrero HCT 45.0 % Normal 36.0-48.[address] [facility] Comment on above: Performed By: #### C JENN ####[facility] [address]ll[address]onw[address] [place], [place] [address]Pt. Jozef Marrero HGB 15.2 g/dl Normal 12.0-16.[address] [facility] Comment on above: Performed By: #### Bennett BARAJAS ####[facility] [address] [place], [place] [address]Sd. Jozef Marrero LYMPHM # 3.68 103/ul Normal 1.20-3.[address] [facility] Comment on above: Performed By: #### Bennett BARAJAS ####[facility] Qep[address]zyugjo[address] [place], [place] [address]Kk. Jozef Marrero LYMPHM% 23.0 % Normal 20.5-60.[address] [facility] Comment on above: Performed By: #### Bennett BARAJAS ####[facility] [address] [place] [phone]. Jozef Marrero MCH 30.0 pg Normal 26.7-34.[address] [facility] Comment on above: Performed By: #### Bennett BARAJAS ####[facility] Nqbhs[address]oo[address] [place] [phone]. Jozef Marrero MCHC 33.8 g/dl Normal 29.9-35.[address] [facility] Comment on above: Performed By: #### Bennett BARAJAS ####[facility] [address] [place] [phone]. Jozef Marrero MCV 88.9 fL Normal 81.0-99.[address] [facility] Comment on above: Performed By: #### Bennett BARAJAS ####[facility] [address]xved[address]ix[address] [place], [place] [address]Lk. Jozef Marrero METAMYELOCYTE # Normal [facility] Comment on above: Performed By: #### Bennett BARAJAS ####[facility] [address] [place] [phone]. Jozef Marrero METAMYELOCYTE % Normal [facility] Comment on above: Performed By: #### Bennett BARAJAS ####[facility] [address] [place], [place] [address]Ne. Jozef Marrero MONOM# 0.64 103/ul Normal 0.30-0.80 [facility] Comment on above: Performed By: #### C JENN ####[facility] [address]pt[address] [place] [phone]. Jozef Marrero MONOM% 4.0 % Normal 1.7-12.0 [facility] Comment on above: Performed By: #### C JENN ####[facility] [address] [place] [phone]. Jozef Marrero MPV 10.3 fL Normal 9.5-13.5 [facility] Comment on above: Performed By: #### C JENN ####[facility] [address]pfv[address] [place] [phone]. Jozef Marrero MYELOCYTE # Normal [facility] Comment on above: Performed By: #### C JENN ####[facility] [address] [place] [phone]. Jozef Marrero MYELOCYTE % Normal [facility] Comment on above: Performed By: #### C JENN ####[facility] [address]ev[address] [place] [phone]. Jozef Marrero NRBC Normal [facility] Comment on above: Performed By: #### C JENN ####[facility] [address]otb[address] [place] [phone]. Jozef Marrero PLT 373 103/ul Normal 150-[address] [facility] Comment on above: Performed By: #### C JENN ####[facility] [address] [place] [phone]. Jozef Marrero RBC 5.06 106/ul Normal 4.20-5.40 [facility] Comment on above: Performed By: #### C JENN ####[facility] [address]benfp[address] [place] [phone]. Jozef Janes RDW 14.2 % Normal 11.0-15.[address] [facility] Comment on above: Performed By: #### C JENN ####[facility] Onrsqs[address]ji[address] [place] [phone]. Jozef Marrero SEG # 8.80 103/ul Critically high 1.40-6.[address] [facility] Comment on above: Performed By: #### C JENN ####[facility] [address] [place], [place] [address]QnDr. Jozef Marrero SEG % 55.0 % Normal 43.0-75.0 [facility] Comment on above: Performed By: #### C THIENMAN ####[facility] [address] [place], [place] [address]HfDr. Jozef Marrero WBC 16.0 103/ul Critically high 4.0-11.0 [facility] Comment on above: Performed By: #### C JENN ####[facility] [address] [place], [place] [address]TzDr. Jozef Marrero Covid-19 PCR (CVDTB)on 11-26 SARS-CoV-2 (COVID-19) RNA NEVA+probe Ql (Unsp spec) Not detected Normal NOT DETECTED [facility] Comment on above: Result Comment: When [...] for this test is supported by the [place] of Health and Human Service's declaration that [...] longer be used). Performed By: #### C VDTB #### [facility] [address] [place], [place] [address] Dr. Jozef Marrero LIPASEon 12-14-2021 Lipase [Catalytic activity/Vol] 49.0 U/L Normal 23.0-300.0 [facility] Comment on above: Performed By: #### A MY, LIVER, BMP, LIPA, HSTROPN #### [facility] [address] [place] [address] Dr. Jozef Marrero LIVER PROFILEon 12-14-2021 Albumin [Mass/Vol] 4.0 g/dL Normal 3.4-5.0 [facility] Comment on above: Performed By: #### A MY, LIVER, BMP, LIPA, HSTROPN #### [facility] [address] [place] [address] Dr. Jozef Marrero Albumin/Globulin [Mass ratio] 0.9 {ratio} Normal [facility] Comment on above: Performed By: #### A MY, LIVER, BMP, LIPA, HSTROPN #### [facility] [address] [place] [address] Dr. Jozef Marrero ALP [Catalytic activity/Vol] 143 U/L Critically high 46-[address] [facility] Comment on above: Performed By: #### A MY, LIVER, BMP, LIPA, HSTROPN #### [facility] [address] [place] [address] Dr. Jozef Marrero ALT [Catalytic activity/Vol] 21 U/L Normal 14-[address] [facility] Comment on above: Performed By: #### A MY, LIVER, BMP, LIPA, HSTROPN #### [facility] [address] [place] [address] Dr. Jozef Marrero AST [Catalytic activity/Vol] 70 U/L Critically high 15-[address] [facility] Comment on above: Performed By: #### A MY, LIVER, BMP, LIPA, HSTROPN #### [facility] [address] [place] [address] Dr. Jozef Marrero BILI, CONJUGATED 0.1 mg/dL Normal 0.0-0.[address] [facility] Comment on above: Performed By: #### A MY, LIVER, BMP, LIPA, HSTROPN #### [facility] [address] [place] [address] Dr. Jozef Marrero Bilirubin [Mass/Vol] 0.4 mg/dL Normal 0.2-1.[address] [facility] Comment on above: Performed By: #### A MY, LIVER, BMP, LIPA, HSTROPN #### [facility] [address] [place] [address] [address] Jozef Marrero Globulin (S) [Mass/Vol] 4.4 g/dL Normal [facility] Comment on above: Performed By: #### A MY, LIVER, BMP, LIPA, HSTROPN #### [facility] [address] [place] [address] Dr. Jozef Marrero Protein [Mass/Vol] 8.4 g/dL Critically high 6.1-8.2 [facility] Comment on above: Performed By: #### A MY, LIVER, BMP, LIPA, HSTROPN #### [facility] [address] [place] [address] Dr. Jozef Marrero Laboratory - Chemistry and C hemistry - challengeOrdered By: Viviane Loco on 12-14-2021 Magnesium [Mass/Vol] 1.8 mg/dL 1.6-2.6 [facility] PROF CHEM 8 (BAS METB)on Anion gap [Moles/Vol] 14.0 mmol/L Normal [facility] Comment on above: Performed By: #### A MY, LIVER, BMP, LIPA, HSTROPN #### [facility] [address] [place] [address] Dr. Jozef Marrero Calcium [Mass/Vol] 9.4 mg/dL Normal 8.5-10.1 [facility] Comment on above: Performed By: #### A MY, LIVER, BMP, LIPA, HSTROPN #### [facility] [address] [place] [address] [address] Jozef Marrero Chloride [Moles/Vol] 102 mmol/L Normal 98-107 [facility] Comment on above: Performed By: #### A MY, LIVER, BMP, LIPA, HSTROPN #### [facility] [address] [place] [address] Dr. Jozef Marrero CO2 [Moles/Vol] 26.4 mmol/L Normal 22.0-30.0 [facility] Comment on above: Performed By: #### A MY, LIVER, BMP, LIPA, HSTROPN #### [facility] [address] [place] [address] [address] Jozef Marrero Creatinine [Mass/Vol] 0.69 mg/dL Normal 0.52-1.04 [facility] Comment on above: Performed By: #### A MY, LIVER, BMP, LIPA, HSTROPN #### [facility] [address] [place] [address] [address] Jozef Marrero EGFR-AF ARMENIAN >60 Normal >=60 [facility] Comment on above: Performed By: #### A MY, LIVER, BMP, LIPA, HSTROPN #### [facility] [address] [place] [address] [address] Jozef Marrero EGFR-NON AF ARMENIAN >60 Normal >=60 [facility] Comment on above: Performed By: #### A MY, LIVER, BMP, LIPA, HSTROPN #### [facility] [address] [place] [address] Dr. Jozef Marrero Glucose [Mass/Vol] 111 mg/dL Critically high 74-106 [facility] Comment on above: Performed By: #### A MY, LIVER, BMP, LIPA, HSTROPN #### [facility] [address] [place] [address] [address] Jozef Marrero Potassium [Moles/Vol] 3.4 mmol/L Normal 3.4-5.0 [facility] Comment on above: Performed By: #### A MY, LIVER, BMP, LIPA, HSTROPN #### [facility] [address] [address] [address] Jozef Marrero Sodium [Moles/Vol] 139 mmol/L Normal 137-[address] [facility] Comment on above: Performed By: #### A MY, LIVER, BMP, LIPA, HSTROPN #### [facility] [address] [address] [address] Jozef Marrero Urea nitrogen [Mass/Vol] 8.0 mg/dL Normal 7.0-18.0 [facility] Comment on above: Performed By: #### A MY, LIVER, BMP, LIPA, HSTROPN #### [facility] [address] [address] [address] Jozef Marrero Urea nitrogen/Creatinine [Mass ratio] 11.6 mg/mg Normal [facility] Comment on above: Performed By: #### A MY, LIVER, BMP, LIPA, HSTROPN #### [facility] [address] [address] [address] Jozef Marrero PROTIMEon 12-14-2021 INR Coag (PPP) [Relative time] 1.05 {INR} Normal [facility] Comment on above: Performed By: #### P TT, PT ####[facility] [id number] [address]Dr. Jozef Marrero INR GUIDELINES SEE BELOW Normal [facility] Comment on above: Result Comment: CAMILA RED INR: 2.0 - 3.0 CONDITIONS NOT LISTED BELOW 2.5 - 3.5 FOR PROSTHETIC HEART VALVE REPLACEMENT 2.5 - 3.5 RECURRENT THROMBOSIS Performed By: #### P TT, PT ####[facility] [id number] [address]Dr. Jozef Marrero PT Coag (PPP) [Time] 11.3 s Normal 9.0-11.6 [facility] Comment on above: Performed By: #### P TT, PT ####[facility] [id number] [address]Dr. Jozef Marrero PTTon 12-14-2021 aPTT Coag (Bld) [Time] 33.0 s Normal 22.3-36.2 [facility] Comment on above: Performed By: #### P TT, PT ####[facility] [id number] [address]DrElbert Marrero TROPONIN, HIGH SENSITIVITYon 12-14-2021 HSTROP 5000.2 pg/mL Critically high 4.0-35.5 [facility] Comment on above: Result Comment: CUT- OFF POINTS HAVE BEEN ESTABLISHED BASED ON THE FOURTH UNIVERSAL DEFINITIONS OF MYOCARDIAL INFARCTION. THE UPPER REFERENCE LIMIT (URL) OF TROPONIN, DEFINED THE 99TH PERCENTILE OF cTnI DISTRIBUTION IN A REFERENCE POPULATION, HAS BEEN CONFIRMED THE DECISION THRESHOLD FOR NE DIAGNOSIS. test repeated critical value verified Performed By: #### A MY, LIVER, BMP, LIPA, HSTROPN ####[facility] [id number] [place], [place] [address]PuElbert Marrero US SINGLE QUAD RT UPPERon US [...] by: MARIANN MARQUES Date: 2021-12-14 14:13 Normal [facility] XR CHEST 1 Von 12-14-2021 [...] by: YESIKA URBINA Date: 2021-12-14 13:23 Normal [facility] Vital Signs Date Time Vital Sign Value Performing Clinician Facility 07-13-2023 13:12-0500 Body temperature 96.91 [degF] Saleem Fitch MD Work Phone: [facility] 07-13-2023 13:12-0500 Body weight 70.31 kg Saleem Fitch MD Work Phone: [facility] 07-13-2023 13:12-0500 Diastolic blood pressure 67 mm[Hg] Saleem Fitch MD Work Phone: [facility] 07-13-2023 13:12-0500 Heart rate 76 /min Saleem Fitch MD Work Phone: [facility] 07-13-2023 13:12-0500 Respiratory rate 18 /min Saleem Fitch MD Work Phone: [facility] 07-13-2023 13:12-0500 SaO2% (BldA) [Mass fraction] 98 % Saleem Fitch MD Work Phone: [facility] 07-13-2023 13:12-0500 Systolic blood pressure 103 mm[Hg] Saleem Fitch MD Work Phone: [facility] 07-10-2023 10:42-0500 Body height 162.6 cm Isabel Cagle [employer] Work Phone: [facility] 07-10-2023 10:42-0500 Body mass index (BMI) [Ratio] 26.09 kg/m2 Isabel Cagle [employer] Work Phone: [facility] 07-10-2023 10:42-0500 Body weight 68.95 kg Isabel Cagle [employer] Work Phone: [facility] 07-10-2023 10:42-0500 Diastolic blood pressure 68 mm[Hg] Isbael Cagle [employer] Work Phone: [facility] 07-10-2023 10:42-0500 Heart rate 74 /min Isabel Cagle [employer] Work Phone: [facility] 07-10-2023 10:42-0500 Systolic blood pressure 110 mm[Hg] Isabel Cagle [employer] Work Phone: [facility] 05-03-2023 12:19-0400 Body temperature 96.91 [degF] Saleem Fitch MD Work Phone: [facility] 05-03-2023 12:19-0400 Body weight 72.85 kg Saleem Fitch MD Work Phone: [facility] 05-03-2023 12:19-0400 Diastolic blood pressure 59 mm[Hg] Saleem Fitch MD Work Phone: [facility] 05-03-2023 12:19-0400 Heart rate 64 /min Saleem Fitch MD Work Phone: [facility] 05-03-2023 12:19-0400 Respiratory rate 18 /min Saleem Fitch MD Work Phone: [facility] 05-03-2023 12:19-0400 SaO2% (BldA) [Mass fraction] 98 % Saleem Fitch MD Work Phone: [facility] 05-03-2023 12:19-0400 Systolic blood pressure 91 mm[Hg] Saleem Fitch MD Work Phone: [facility] 04-26-2023 12:31-0400 Body temperature 97.11 [degF] Saleem Fitch MD Work Phone: [facility] 04-26-2023 12:31-0400 Body weight 72.94 kg Saleem Fitch MD Work Phone: [facility] 04-26-2023 12:31-0400 Diastolic blood pressure 72 mm[Hg] Saleem Fitch MD Work Phone: [facility] 04-26-2023 12:31-0400 Heart rate 56 /min Saleem Fitch MD Work Phone: [facility] 04-26-2023 12:31-0400 Respiratory rate 16 /min Saleem Fitch MD Work Phone: [facility] 04-26-2023 12:31-0400 SaO2% (BldA) [Mass fraction] 98 % Saleem Fitch MD Work Phone: [facility] 04-26-2023 12:31-0400 Systolic blood pressure 106 mm[Hg] Saleem Fitch MD Work Phone: [facility] 04-19-2023 10:14-0400 Body temperature 96.91 [degF] Saleem Fitch MD Work Phone: [facility] 04-19-2023 10:14-0400 Body weight 72.12 kg Saleem Fitch MD Work Phone: [facility] 04-19-2023 10:14-0400 Diastolic blood pressure 76 mm[Hg] Saleem Fitch MD Work Phone: [facility] 04-19-2023 10:14-0400 Heart rate 64 /min Saleem Fitch MD Work Phone: [facility] 04-19-2023 10:14-0400 Respiratory rate 18 /min Saleem Fitch MD Work Phone: [facility] 04-19-2023 10:14-0400 SaO2% (BldA) [Mass fraction] 98 % Saleem Fitch MD Work Phone: [facility] 04-19-2023 10:14-0400 Systolic blood pressure 112 mm[Hg] Saleem Fitch MD Work Phone: [facility] 04-05-2023 12:23-0400 Body temperature 98.01 [degF] Saleem Fitch MD Work Phone: [facility] 04-05-2023 12:23-0400 Body weight 72.58 kg Saleem Fitch MD Work Phone: [facility] 04-05-2023 12:23-0400 Diastolic blood pressure 76 mm[Hg] Saleem Fitch MD Work Phone: [facility] 04-05-2023 12:23-0400 Heart rate 73 /min Saleem Fitch MD Work Phone: [facility] 04-05-2023 12:23-0400 Respiratory rate 18 /min Saleem Fitch MD Work Phone: [facility] 04-05-2023 12:23-0400 SaO2% (BldA) [Mass fraction] 98 % Saleem Fitch MD Work Phone: [facility] 04-05-2023 12:23-0400 Systolic blood pressure 116 mm[Hg] Saleem Fitch MD Work Phone: [facility] 03-28-2023 14:48-0400 Body temperature 96.91 [degF] Saleem Fitch MD Work Phone: [facility] 03-28-2023 14:48-0400 Diastolic blood pressure 67 mm[Hg] Saleem Fitch MD Work Phone: [facility] 03-28-2023 14:48-0400 Heart rate 74 /min Saleem Fitch MD Work Phone: [facility] 03-28-2023 14:48-0400 Respiratory rate 18 /min Saleem Fitch MD Work Phone: [facility] 03-28-2023 14:48-0400 SaO2% (BldA) [Mass fraction] 96 % Saleem Fitch MD Work Phone: [facility] 03-28-2023 14:48-0400 Systolic blood pressure 100 mm[Hg] Saleem Fitch MD Work Phone: [facility] 12-30-2022 14:50-0400 Diastolic blood pressure 75 mm[Hg] DO Aris Elivar Work Phone: [facility] 12-30-2022 14:50-0400 Heart rate 67 /min DO Aris House Work Phone: [facility] 12-30-2022 14:50-0400 Respiratory rate 14 /min DO Aris House Work Phone: [facility] 12-30-2022 14:50-0400 SaO2% (BldA) [Mass fraction] 99 % DO Aris Elivar Work Phone: [facility] 12-30-2022 14:50-0400 Systolic blood pressure 122 mm[Hg] DO Aris House Work Phone: [facility] 12-30-2022 13:50-0400 Body temperature 97.7 [degF] DO Aris House Work Phone: [facility] 12-30-2022 11:36-0400 Body height 162.56 cm DO Aris House Work Phone: [facility] 12-30-2022 11:36-0400 Body weight 76.65 kg DO Aris House Work Phone: [facility] 12-28-2022 11:26-0400 Body height 162.56 cm Aris P House Work Phone: [facility] DO Work Phone: 12-28-2022 11:26-0400 Body mass index (BMI) [Ratio] 29.01 kg/m2 Aris P House Work Phone: [facility] 250 DO Work Phone: 12-28-2022 11:26-0400 Body surface area Derived from formula 1.82 m2 Aris P House Work Phone: [facility] 250 DO Work Phone: 12-28-2022 11:26-0400 Body weight 76.66 kg Aris P House Work Phone: [facility] 250 DO Work Phone: 12-28-2022 11:26-0400 Diastolic blood pressure 68 mm[Hg] Aris P House Work Phone: [facility] DO Work Phone: 12-28-2022 11:26-0400 Heart rate 68 /min Aris P House Work Phone: [facility] 250 DO Work Phone: 12-28-2022 11:26-0400 Systolic blood pressure 132 mm[Hg] Aris P House Work Phone: [facility] 250 DO Work Phone: 05-05-2022 11:41-0400 Body height 162.56 cm Aris P House Work Phone: [facility] DO Work Phone: 05-05-2022 11:41-0400 Body mass index (BMI) [Ratio] 25.92 kg/m2 Aris P House Work Phone: [facility] 250 DO Work Phone: 05-05-2022 11:41-0400 Body surface area Derived from formula 1.74 m2 Aris P House Work Phone: [facility] 250 DO Work Phone: 05-05-2022 11:41-0400 Body weight 68.49 kg Aris P House Work Phone: [facility] 250 DO Work Phone: 05-05-2022 11:41-0400 Diastolic blood pressure 82 mm[Hg] Aris P House Work Phone: [facility] DO Work Phone: 05-05-2022 11:41-0400 Heart rate 80 /min Aris P House Work Phone: [facility] 250 DO Work Phone: 05-05-2022 11:41-0400 Systolic blood pressure 120 mm[Hg] Aris P House Work Phone: [facility] 250 DO Work Phone: 02-22-2022 09:45-0400 0 1 Aris P House Work Phone: [facility] DO Work Phone: Comment on above: [id number] 01-25-2022 15:28-0400 Body height 162.56 cm Aris P House Work Phone: [facility] Work Phone: 01-25-2022 15:28-0400 Body mass index (BMI) [Ratio] 23.86 kg/m2 Aris P House Work Phone: [facility] Work Phone: 01-25-2022 15:28-0400 Body surface area Derived from formula 1.68 m2 Aris P House Work Phone: [facility] Work Phone: 01-25-2022 15:28-0400 Body weight 63.05 kg Aris P House Work Phone: [facility] Work Phone: 01-25-2022 15:28-0400 Diastolic blood pressure 76 mm[Hg] Aris P Elivar Work Phone: [facility] Work Phone: 01-25-2022 15:28-0400 Heart rate 72 /min Aris P House Work Phone: [facility] Work Phone: 01-25-2022 15:28-0400 Systolic blood pressure 122 mm[Hg] Aris P House Work Phone: [facility] Work Phone: 01-25-2022 15:28-0400 12 1 Aris P House Work Phone: [facility] Work Phone: Comment on above: [id number] 12-16-2021 16:00-0400 Body temperature 98.5 [degF] MD Viviane Loco Work Phone: [facility] 12-16-2021 16:00-0400 Diastolic blood pressure 90 mm[Hg] MD Viviane Loco Work Phone: [facility] 12-16-2021 16:00-0400 Heart rate 70 /min MD Viviane Loco Work Phone: [facility] 12-16-2021 16:00-0400 SaO2% (BldA) [Mass fraction] 100 % MD Viviane Loco Work Phone: [facility] 12-16-2021 16:00-0400 Systolic blood pressure 131 mm[Hg] MD Viviane Loco Work Phone: [facility] 12-16-2021 08:00-0400 Respiratory rate 18 /min MD Viviane Loco Work Phone: [facility] 12-16-2021 06:00-0400 Body weight 62.5 kg MD Viviane Loco Work Phone: [facility] 12-15-2021 11:00-0400 Body height 162.56 cm MD Viviane Loco Work Phone: [facility] 12-14-2021 16:55-0400 Body mass index (BMI) [Ratio] 25.4 kg/m2 MD Viviane Loco Work Phone: [facility] Encounters Encounter Date Encounter Type Care Provider Facility Start: 11-29-2023 ambulatory ARIS [facility] Start: 11-29-2023 End: 12-07-2023 Evaluation and management of inpatient SPARROW FALITAD [facility] Start: 11-29-2023 End: 11-29-2023 ambulatory SPARROW FAWWAD Not Available Start: 11-29-2023 End: 12-08-2023 Emergency department patient visit COURT LICONA [facility] Start: 11-20-2023 End: 11-20-2023 ambulatory SALEEM FITCH Facility:[facility] Start: 11-06-2023 End: 11-06-2023 ambulatory SPARROW FAWWAD Not Available Start: 08-03-2023 End: 08-03-2023 ambulatory SPARROW FAWWAD Not Available Start: 07-13-2023 End: 07-13-2023 ambulatory SALEEM FITCH Facility:[facility] Start: 07-13-2023 End: 07-13-2023 Patient encounter procedure Saleem Fitch MD Work Phone: Radiation Oncology Comment on above: Neoplasm of lung (Pr imary Dx) Start: 07-10-2023 End: 07-10-2023 ambulatory [facility]ulatory Start: 07-10-2023 End: 07-10-2023 Office outpatient visit 15 minutes [facility] [employer] Work Phone: [facility] Comment on above: SVT (supraventricula r tachycardia) (Primary Dx); Hypertrophic nonobstructive cardiomyopathy (CMS/HCC); ASHD (arteriosclerotic heart disease); Essential hypertension; Mixed hyperlipidemia; Angina pectoris (CMS/HCC); Non-small cell cancer of left lung (CMS/HCC); BMI 26.0-26.9,adult Start: 06-19-2023 End: 06-20-2023 ambulatory [facility] Start: 06-19-2023 End: 06-19-2023 ambulatory [facility] Start: 06-15-2023 ambulatory [facility] Start: 06-13-2023 End: 06-14-2023 ambulatory [facility] Start: 05-11-2023 End: 05-11-2023 ambulatory SALEEM FITCH Facility:[facility] Start: 05-11-2023 Patient encounter procedure Saleem Fitch MD Work Phone: [facility] Start: 05-11-2023 Radiation Oncology Note Saleem waldrop MD Work Phone: [facility] Comment on above: Completion Note Start: 05-10-2023 End: 05-10-2023 ambulatory SALEEM FITCH Facility:[facility] Start: 05-09-2023 End: 05-09-2023 ambulatory SALEEM FITCH Facility:[facility] Start: 05-08-2023 End: 05-08-2023 ambulatory SALEEM LITTLE Facility:[facility] Start: 05-05-2023 End: 05-05-2023 ambulatory SALEEM LITTLE Facility:[facility] Start: 05-04-2023 End: 05-04-2023 ambulatory SALEEM LITTLE Facility:[facility] Start: 05-03-2023 End: 05-03-2023 ambulatory SALEEM LITTLE Facility:[facility] Start: 05-03-2023 End: 05-03-2023 Patient encounter procedure Saleem Fitch MD Work Phone: Radiation Oncology Comment on above: Neoplasm of lung (Pr imary Dx) Start: 05-02-2023 End: 05-02-2023 ambulatory ARIS P HOUSE SR Facility:[facility] Start: 04-28-2023 End: 04-28-2023 ambulatory SALEEM LITTLE Facility:[facility] Start: 04-27-2023 End: 04-27-2023 ambulatory SALEEM LITTLE Facility:[facility] Start: 04-26-2023 End: 04-26-2023 ambulatory SALEEM LITTLE Facility:[facility] Start: 04-26-[address] Brett matthews [facility] Facility: Start: 04-26-2023 End: 04-26-2023 Patient encounter procedure Saleem Fitch MD Work Phone: Radiation Oncology Comment on above: Smoking greater than 40 pack years (Primary Dx); Neoplasm of lung Start: 04-25-2023 End: 04-25-2023 ambulatory SALEEM LITTLE Facility:[facility] Start: 04-21-2023 End: 04-21-2023 ambulatory SALEEM LITTLE Facility:[facility] Start: 04-19-2023 End: 04-19-2023 ambulatory SALEEM LITTLE Facility:[facility] Start: 04-19-2023 End: 04-19-2023 Patient encounter procedure Saleem Fitch MD Work Phone: Radiation Oncology Comment on above: Neoplasm of lung (Pr imary Dx) Start: 04-18-2023 End: 04-18-2023 ambulatory ARIS STEWART SR Facility:[facility] Start: 04-18-2023 Patient encounter procedure Bri Bernard LMT Hematology/Oncology Comment on above: Muscle soreness (Kelli cuate Dx) Start: 04-17-2023 End: 04-17-2023 ambulatory SALEEM LITTLE Facility:[facility] Start: 04-14-2023 End: 04-14-2023 ambulatory SALEEM LITTLE Facility:[facility] Start: 04-13-2023 End: 04-13-2023 ambulatory SALEEM LITTLE Facility:[facility] Start: 04-12-2023 End: 04-12-2023 ambulatory SALEEM LITTLE Facility:[facility] Start: 04-11-2023 End: 04-11-2023 ambulatory SALEEM LITTLE Facility:[facility] Start: 04-11-2023 Telephone encounter Saleem Fitch MD Work Phone: Radiation Oncology Comment on above: Missed Appointment Start: 04-10-2023 End: 04-10-2023 ambulatory SALEEM LITTLE Facility:[facility] Start: 04-07-2023 End: 04-07-2023 ambulatory SALEEM LITTLE Facility:[facility] Start: 04-06-2023 End: 04-06-2023 ambulatory SALEEM LITTLE Facility:[facility] Start: 04-05-2023 End: 04-05-[facility] Start: 04-05-2023 End: 04-05-2023 Patient encounter procedure Saleem Fitch MD Work Phone: Radiation Oncology Comment on above: Neoplasm of lung (Pr imary Dx) Start: 04-04-2023 End: 04-04-2023 ambulatory SALEEM LITTLE Facility:[facility] Start: 04-03-2023 End: 04-03-2023 ambulatory SALEEM LITTLE Facility:[facility] Start: 03-31-2023 End: 03-31-2023 ambulatory SALEEM LITTLE Facility:[facility] Start: 03-30-2023 End: 03-30-2023 ambulatory SALEEM LITTLE Facility:[facility] Start: 03-29-2023 End: 03-29-2023 ambulatory [facility]EM [facility] Facility:[facility] Start: 03-28-2023 End: 03-28-2023 Nursing evaluation of patient and report Nurse Radt Sandra Work Phone: Radiation Oncology Comment on above: [...] above: Appointment Start: 03-17-2023 End: 03-20-2023 ambulatory SALEEM FITCH Facility:[facility] Start: 03-17-2023 End: 03-20-2023 Patient encounter procedure Saleem Fitch MD Work Phone: [facility] Comment on above: Neoplasm of lung (Pr imary Dx) Start: 03-17-2023 Radiation Oncology Note Saleem waldrop MD Work Phone: Radiation Oncology Comment on above: Simulation Note Treatment Planning Start: 03-15-2023 End: 03-15-2023 ambulatory SALEEM FITCH Facility:[facility] Start: 03-14-2023 Telephone encounter Stan tracey MD, PhD Work Phone: [facility] Comment on above: Received Outside Med ical Records Start: 03-10-2023 End: 03-11-2023 ambulatory [facility] Start: 03-10-2023 End: 03-10-2023 ambulatory [facility] Start: 03-08-2023 Telephone encounter Saleem Fitch MD Work Phone: Radiation Oncology Comment on above: Patient Update; Card iac Clearance External Referrals/r esources; Consult Start: 03-08-2023 End: 03-08-2023 ambulatory SALEEM FITCH Facility:[facility] Start: 03-03-2023 End: 03-04-2023 ambulatory [facility] Start: 03-03-2023 End: 03-03-2023 ambulatory [facility] Start: 02-22-2023 End: 02-23-2023 ambulatory [facility] Start: 12-30-[address] Brett Gongora Facility:[id number] Start: 12-30-2022 SURGNON, Provider: Brett Gongora, Status: Pen, Time: 12:00 PM Aris P House Work Phone: [facility] 250 DO Work Phone: Start: 12-30-2022 End: 12-30-2022 ambulatory Aris Stewart Facility:[facility] Start: 12-30-2022 End: 12-30-2022 Admission to same day surgery center DO Aris House Work Phone: [facility] [facility] Work Phone: Start: 12-30-2022 End: 12-30-2022 ambulatory DO Aris House Work Phone: [facility] Work Phone: Start: 12-28-2022 Office outpatient vi sit 40 minutes Aris P House Work Phone: [facility] DO Work Phone: Start: 12-28-[address] Brett Gongora Facility: Start: 11-10-[address] Brett Gongora Facility: Start: 08-11-2022 End: 08-12-[address] ARIS STEWART Facility:[facility] Start: 06-23-2022 End: 06-23-2022 ambulatory LUCIO CANO Facility:[facility] Start: 05-05-[address] Brett Gongora Facility: Start: 05-05-2022 Office outpatient vi sit 25 minutes Aris P House Work Phone: [facility] 250 DO Work Phone: Start: 03-01-2022 Chart Update Aris Jerry Hous e Work Phone: [facility] DO Work Phone: Start: 02-22-2022 Patient encounter procedure Aris Stewart Work Phone: [facility] 250 DO Work Phone: Start: 02-21-2022 End: 02-22-[address] ARIS STEWART Facility:[facility] Start: 02-18-2022 End: 02-18-2022 ambulatory ALLY SANTORO Facility:[facility] Start: 02-17-2022 End: 02-17-2022 ambulatory LUCIO CANO Facility:[facility] Start: 01-28-2022 End: 04-07-[address] BRETT GONGORA Facility:[facility] Start: 01-26-2022 End: 01-26-[address] BRETT GONGORA Facility:[facility] Start: 01-25-2022 Office outpatient vi sit 40 minutes Aris Jerry Stewart Work Phone: [facility] Work Phone: Start: 12-15-2021 End: 12-16-2021 Evaluation and management of inpatient MD Viviane Loco Work Phone: [facility] [place] [facility] Start: 12-14-2021 End: 12-14-2021 ambulatory ALLY SANTORO Facility:[facility] Procedures Date Procedure Procedure Detail Performing Clinician Start: 07-11-2023 Ecg routine ecg w/least 12 lds w/i&r Isabel Cagle [employer] FARMWORKER Work Phone: Start: 12-30-2022 CL Iliac/Fem w/LHC [...] P Pat Work Phone: Hernia repair Aris P Hous e Work Phone: History of placement [...] Start: 06-19-2024 Diabetes mellitus screening Diabetes Screening [facility] Start: 01-09-2024 End: 01-09-2024 Patient encounter procedure 01/09/2024 9:30 AM EDT Office Visit [facility] [address] [id number] Brett Gongora DO 703 [facility] [address], [address] [address] [facility] Start: 07-10-2023 End: 07-10-2024 Basic metabolic 2000 panel - Serum or Plasma Basic Metabolic Panel Lab Routine SVT (supraventricular tachycardia) Hypertrophic nonobstructive cardiomyopathy (CMS/HCC) Expected: 07/10/2023 (Approximate), Expires: 07/10/2024 [facility] Service Area Work Phone: Comment on above: Expected: 07/10/2023 (Approximate), Expires: 07/10/2024 Start: 09-01-2023 Influenza vaccination C [facility] Start: 02-08-2023 FUV, Provider: Brett Gongora, Status: Pen, Time: 10:00 AM FUV, Provider: Brett Gongora, Status: Pen, Time: 10:00 AM [facility] 250 DO Work Phone: Start: 12-30-2022 End: 12-30-2022 [facility] Start: 11-10-2022 FUV, Provider: Brett Gongora, Status: Pen, Time: 10:00 AM FUV, Provider: Brett Gongora, Status: Pen, Time: 10:00 AM [facility] 250 DO Work Phone: Start: 08-28-2022 DEPRESSION ASSESSMENT DEPRESSION ASS ESSMENT [facility] Start: 05-05-2022 FUV, Provider: Brett Gongora, Status: Pen, Time: 11:20 AM FUV, Provider: Brett Gongora, Status: Pen, Time: 11:20 AM [facility] Work Phone: Start: 02-22-2022 HOLTER 48, Provider: XENA BARRETT ENGRAVER JEWELRY 1,[id number], Status: Pen, Time: 10:30 AM HOLTER 48, Provider: XENA BARRETT ENGRAVER JEWELRY 1,[id number], Status: Pen, Time: 10:30 AM [facility] Work Phone: Start: 02-22-2022 ECHO, Provider: SANDRA HHVI ULTRASOUND 01,[id number], Status: Pen, Time: 9:45 AM ECHO, Provider: SANDRA HHVI ULTRASOUND 01,[id number], Status: Pen, Time: 9:45 AM [facility] Work Phone: Start: 2017 SHINGRIX VACCINE (1 of 2) SHINGRIX VACCINE (1 of 2) [facility] Start: 2017 Zoster Vaccines (1 o f 2) Zoster Vaccines (1 of 2) [facility] Start: 2012 COLOGUARD (FIT-DNA) COLOGUARD (FIT-D NA) [facility] Start: 2012 Colonoscopy COLONOSCOPY [facility] Start: 2012 COLORECTAL CANCER SCREENING COLORECTAL CANCER SCREENING [facility] Start: [address] COLONOGRAPHY [facility] Start: 2012 DIABETES SCREEN DIABETES SCREEN [facility] Start: 2012 Diabetes Screening Diabetes Screenin g [facility] Start: 2012 FECAL OCCULT BLOOD FECAL OCCULT BLOO D [facility] Start: 2012 Lipid 1996 panel - Serum or Plasma Lipid Screening [facility] Start: 2012 LIPID SCREEN LIPID SCREEN [facility] Start: 2012 SIGMOIDOSCOPY SIGMOIDOSCOPY [facility] Start: 2007 Mammography [facility] Start: 2007 Screening for malign ant neoplasm of breast Mammogram [facility] Start: 1997 HPV TESTING HPV TESTING [facility] Start: 1989 DTaP/Tdap/Td Vaccine s (1 - Tdap) DTaP/Tdap/Td Vaccines (1 - Tdap) [facility] Start: 1988 PAP TESTING PAP TESTING [facility] Start: 1988 Screening for malign ant neoplasm of cervix [facility] Start: 1986 Urine microalbumin profile [facility] Start: 1985 HEPATITIS C SCREENING HEPATITIS C [facility] Start: 1985 Hepatitis C screening Hepatitis C [facility] Start: 1985 HIV SCREENING HIV SCREENING [facility] Start: 1973 PNEUMOCOCCAL (1 - PCV) PNEUMOCOCCAL (1 - PCV) [facility] Start: 1973 Pneumococcal vaccination Pneumococcal Vaccine (1 - PCV) [facility] Start: 1973 Pneumococcal Vaccine : Pediatrics (0 to 5 Years) and At-Risk Patients (6 to 64 Years) (1 - PCV) Pneumococcal Vaccine: Pediatrics (0 to 5 Years) and At-Risk Patients (6 to 64 Years) (1 - PCV) [facility] Start: 1968 MMR Vaccines (1 of 1 - Standard series) MMR Vaccines (1 of 1 - Standard series) [facility] Start: 04-09-1968 COVID-19 VACCINE (#1) COVID-19 VACCI NE (#1) [facility] Start: 1967 HEPATITIS B (1 of 3 - 3-dose series) HEPATITIS B (1 of 3 - 3-dose series) [facility] Start: 1967 Hepatitis B Vaccine (1 of 3 - 3-dose series) Hepatitis B Vaccine (1 of 3 - 3-dose series) [facility] Start: 1967 Hepatitis B Vaccines (1 of 3 - 3-dose series) Hepatitis B Vaccines (1 of 3 - 3-dose series) [facility] Start: 1967 HIV screening HIV Screening [facility] Start: 1967 Lipid panel Lipid Panel [facility] Start: 1967 Screening for malign ant neoplasm of colon [facility] Start: 1967 Yearly Adult Physical Yearly Adult P hysical [facility] CT SIM PLANNING RADIATION ONCOLOGY CT SIM PLANNING RADIATION ONCOLOGY Radiology Routine Neoplasm of lung Ordered: 03/17/2023 [facility] Work Phone: Comment on above: Ordered: 03/17/2023 ECG 12 Lead ECG 12 Lead ECG Routine SVT (supraventricular tachycardia) 07/11/2023 1:33 PM EST [facility] Work Phone: End: 04-10-2024 Mri brain brain stem w/o w/contrast material MRI BRAIN WO/W IVCON Radiology Routine Secondary malignant neoplasm of brain (HCC) Malignant neoplasm of left lung, unspecified part of lung (HCC) 1 Occurrences starting 03/10/2023 until 04/10/2024 [facility] Work Phone: Comment on above: 1 Occurrences starti ng 03/10/2023 until 04/10/2024 Patient Education [facility] Work Phone: Patient referral [facility] Work Phone: [facility] Payers Date Payer Category Payer Self-pay [id number] 2022 Medicaid [facility] MEDICAID [facility] COMMUNITY PLAN MEDICAID OF [place] [id number] 2022-Present [phone] [address] [place] [address] Medicaid [id number] 2022 Private Health Insurance [facility] [id number] 2022-Present [address] [place] [address] [id number] 2022 Private Health Insurance [id number] 1967 Unknown [id number] 2.16.840.1.115798.3.579.2. 593 1967 Unknown [id number] 2.16.840.1.713731.3.579.2. 593 1967 Unknown [id number] 2.16.840.1.085345.3.579.2. 593 1967 Unknown [id number] 2.16.840.1.794199.3.579.2. 593 1967 Unknown [id number] 2.16.840.1.569696.3.579.2. 593 1967 Unknown [id number] 2.16.840.1.727369.3.579.2. 593 1967 Unknown [id number] 2.16.840.1.915240.3.579.2. 593 1967 Unknown [id number] 2.16.840.1.158933.3.579.2. 593 1967 Unknown [id number] 2.16.840.1.066383.3.579.2. 356 1967 Unknown [id number] 2.16.840.1.566554.3.579.2. 356 1967 Unknown [id number] 2.16.840.1.673445.3.579.2. 356 1967 Unknown [id number] 2.16.840.1.492190.3.579.2. 356 1967 Unknown [id number] 2.16.840.1.684816.3.579.2. 356 1967 Unknown [id number] 2.16.840.1.295113.3.579.2. 1244 1967 Unknown [id number] 2.16.840.1.757567.3.579.2. 1259 1967 Unknown [id number] 2.16.840.1.945273.3.579.2. 1259 1967 Unknown [id number] 2.16.840.1.178168.3.579.2. 1259 1967 Unknown [id number] 2.16.840.1.254215.3.579.2. 1286 1967 Unknown [id number] 2.16.840.1.857952.3.579.2. 1286 1967 Unknown [id number] 2.16.840.1.784183.3.579.2. 1286 1967 Unknown [id number] 2.16.840.1.146886.3.579.2. 1286 1959 Private Health Insurance [id number] Unknown [id number] Unknown Unknown [id number] 2.16.840.1.019668.3.579.2. 531 Social History Date Type Detail Facility Start: 12-15-2021 End: 12-30-2022 Tobacco smoking status PRIS Smoker (finding) [facility] Start: 1965 Sex Assigned At Female [facility] Start: 03-08-2023 End: 07-13-2023 Current smoker Current smoker [facility] Comment on above: 1/2 ppd; 3-4 daily; Start: 03-08-2023 [facility] End: 08-28-2022 History of tobacco use Cigarette Smoker [facility] Start: 03-08-2023 End: 07-10-2023 Tobacco use and exposure Smokeless tobacco non-user [facility] Start: 03-08-2023 End: 05-03-2023 Alcohol intake Ex-drinker (finding) [facility] Start: 03-08-2023 End: 07-13-2023 Tobacco use panel [facility] Start: 1965 Sex Assigned At Not on file C [facility] National Score (1-100), lower number is lower risk 60 [facility] Start: 07-10-2023 Tobacco smoking stat [facility] Ex-smoker [facility] Start: 07-10-2023 Alcohol intake Lifetime non-d chantal (finding) [facility] Work Phone: Start: 06-30-2023 End: 07-10-2023 Exposure to SARS-CoV-2 (event) Not sure [facility] Medical Equipment Procedure Code Equipment Code Equipment Origin al Text Equipment Identifier Dates Drug-eluting coronary artery stent, eit-vhnczpghfzikb-fh lymer-coated ()[id number] FDA Start: 12-15-2021 Drug-eluting coronary artery stent, xhh-ahrvfwjdiuhsg-bp lymer-coated ()[id number] FDA Start: 12-15-2021 Drug-eluting coronary artery stent, fyl-bavwoacdliovv-pe lymer-coated ()[id number] FDA Start: 12-15-2021 Goals Date Patient Goal Desired Activity /State Functional Status Date Assessment Result Facility 01-25-2022 PHQ-9 [id number] Moderate (10-14) [facility] Work Phone: 12-16-2021 Functional status Patient at Baseline [facility] Work Phone: Mental Status Date Assessment Result Facility 12-16-2021 Cognitive function Cognitive Sta tus Patient at Baseline [facility] Work Phone: Clinical Notes 12-14-2021 to 11-20-2023 Saleem Fitch MD - 07/13/2023 10:35 PM ESTAssessment & Plan Note - Isabel Cagle, [facility] - 07/11/2023 1:26 PM ESTAssessment & Plan Note - Isabel Cagle [facility] - 07/11/2023 1:26 PM EST Note Date & Type Note Facility 11-20-2023 Note HNO ID: [id number] Author: SALEEM FITCH MD Service: ? Author Type: Physician Type: Progress Notes Filed: 11/26/2023 21:14 Note Text: Radiation Oncology - Follow Up Note PATIENT NAME: Jeanmarie Faria PATIENT DIAGNOSIS/PATIENT IDENTIFICATION: Ms. Faria is a 58-year-old woman diagnosed with Stage III non-small cell [...] definitive concurrent chemoradiation in coordination with Dr. Rodriugez at the [facility] on 05/11/2023 (6,000 cGy delivered in 30 fractions with concurrent carboplatin/paclitaxel). Stent was removed shortly afterwards. INTERVAL HISTORY/ROS: Ms. Faria returns to clinic today for routine follow-up approximately six months after the completion of her radiation treatments and four months since her last visit on 07/13/2023. In the interim, she has been continuing on maintenance immunotherapy with durvalumab under the care of Dr. Rodriguez and reports tolerating it well with no significant issues. She feels that her breathing may be slightly better since her last visit and she continues on supplemental oxygen via nasal cannula at 2 L/min and follows with her front desk monitor Dr. Nair. She denies hemoptysis, pain, or difficulty swallowing but does note a worsening cough over the past several weeks. She did have a CT of the chest on 10/16/2023 which noted a new right upper lobe infiltrate which resolved on repeat CT of the chest a month later on 11/14/2023. The repeat scan was without contrast however neither the prior scan or this one noted any definite evidence of mediastinal or parenchymal disease progression in the chest. She does endorse fatigue with good appetite and increased weight and fair hydration. She otherwise denies any recent fevers, chills, headaches, difficulty with speech/swallowing, chest pain/palpitations, abdominal pain, nausea, vomiting, change in bowel/urinary habits, difficulty with gait/balance, recent falls, etc. The remainder of the review of systems was performed and was otherwise noncontributory. ALLERGIES ALLERGIES No Known Allergies MEDICATIONS: Current Outpatient Medications: levothyroxine (SYNTHROID) 50 mcg tablet STIOLTO RESPIMAT 2.5-2.5 mcg/actuation buPROPion XL (WELLBUTRIN XL) 150 mg 24 hr tablet dilTIAZem CD (CARDIZEM CD, CARTIA XT) 240 mg 24 hr capsule ipratropium-albuterol (DUONEB) 0.5 mg-3 mg(2.5 mg base)/3 mL nebu albuterol HFA (PROVENTIL HFA, VENTOLIN HFA) 90 mcg/actuation inhaler aspirin, enteric coated (ASPIRIN, ENTERIC COATED) 81 mg EC tablet atorvastatin (LIPITOR) 80 mg tablet isosorbide mononitrate ER (IMDUR) 30 mg 24 hr tablet metoprolol succinate ER (TOPROL XL) 100 mg Omeprazole Magnesium 20 mg tablet gabapentin (NEURONTIN) 300 mg capsule sodium chloride 0.9 % nebulizer solution prochlorperazine (COMPAZINE) 10 mg tablet iv contrast (will be provided with radiology test) nitroglycerin sublingual (NITROQUICK) 0.4 mg SL tablet predniSONE (DELTASONE) 20 mg tablet BRILINTA 90 mg tablet traMADol (ULTRAM) 50 mg tablet PHYSICAL EXAM: GENERAL: middle-aged woman sitting in chair in no acute distress. VITALS: BP 102/65 Pulse 60 Temp 97.6 Resp 18 Wt 162 lb 7.7 oz (73.7kg) SpO2 94[O2 at 2L/NC]% KPS: 80 HEENT: NC/AT, anicteric sclera HEART: S1S2 LUNGS: non-labored breathing ABDOMEN: soft MUSCULOSKELETAL: no peripheral edema, moves all extremities. NEURO: no focal deficit; AANDO X3. RADIOLOGIC DATA: CT Chest without contrast (11/14/2023) ASSESSMENT AND PLAN: Ms. Faria is a 58-year-old woman diagnosed with Stage III non-small cell [...] in coordination with Dr. Rodriguez at the [facility] on 05/11/2023 (6,000 cGy delivered in 30 fractions with concurrent carboplatin/paclitaxel). Stent was removed shortly afterwards continues on consolidation Durvalumab. Ms. Faria is stable clinically approximately six months out from the completion of her chemoradiation treatments to the chest. Her most recent imaging of the chest with CT from 11/14/2023 was without contrast however there does not appear to be any definite evidence of disease recurrence/progression in the mediastinum or left chest and improvement of a right upper lobe lung infiltrate seen on previous imaging. At this poin (more content not included)... [facility] 09-25-2023 Note HNO ID: [id number] Author: MICHAEL AGUILAR LSW Service: ? Author Type: Transcribing Machine Operator Type: Progress Notes Filed: 09/25/2023 16:11 Note [...] will follow up as appropriate. ELOY Whiteside [facility] 07-14-2023 Note HNO ID: [id number] Author: Saleem Fitch MD Service: ? Author [...] in coordination with Dr. Rodriguez at the [facility] on 05/11/2023 (6,000 cGy delivered in 30 fractions with concurrent carboplatin/paclitaxel). INTERVAL HISTORY/ROS: Ms. Faria returns to clinic today for routine follow-up approximately two months after the completion of her radiation treatments. In the interim, she was hospitalized shortly after completion of treatment for pneumonia and arrhythmia (tachycardia). Since discharge she has been on supplemental oxygen vzfssa-qfk-biqwf via nasal cannula at 2 L/min. She feels that her cough is improved and denies any hemoptysis but still has some tightness in the chest with deep breaths. She denies any esophagitis that she is swallowing well. She is seeing a front desk monitor and is currently on a nebulizer 3 [...] in coordination with Dr. Rodriguez at the [facility] on 05/11/2023 (6,000 cGy delivered in 30 fractions with concurrent carboplatin/paclitaxel). Ms. Faria continues to recover from the acute toxicities of her recent course of chemoradiation which was complicated by recent hospitalization for pneumonia. She is showing slow improvement but continues to require supplemental oxygen and will follow with her front desk monitor plans for PFTs as well as pulmonary [...] 4 months. Th (more content not included)... [facility] 07-13-2023 History of Present illness Narrative Images [...] in coordination with Dr. Rodriguez at the [facility] on 05/11/2023 (6,000 cGy delivered in 30 fractions with concurrent carboplatin/paclitaxel). INTERVAL HISTORY/ROS: Ms. Faria returns to clinic today for routine follow-up approximately two months after the completion of her radiation treatments. In the interim, she was hospitalized shortly after completion of treatment for pneumonia and arrhythmia (tachycardia). Since discharge she has been on supplemental oxygen [id number]-pxc-[id number] via nasal cannula at 2 L/min. She feels that her cough is improved and denies any hemoptysis but still has some tightness in the chest with deep breaths. She denies any esophagitis that she is swallowing well. She is seeing a front desk monitor and is currently on a nebulizer 3 [...] in coordination with Dr. Rodriguez at the [facility] on 05/11/2023 (6,000 cGy delivered in 30 fractions with concurrent carboplatin/paclitaxel). Ms. Faria continues to recover from the acute toxicities of her recent course of chemoradiation which was complicated by recent hospitalization for pneumonia. She is showing slow improvement but continues to require supplemental oxygen and will follow with her front desk monitor plans for PFTs as well as pulmonary [...] of said technology/software. documented in this encounter [facility] 07-11-2023 Evaluation + Plan note Associated Problem(s): Non-small cell lung cancer (CMS/HCC) Reports diagnosed February 22, 2023 Treated with radiation and chemotherapy Pulmonary stent has been removed PET scan pending [facility] Work Phone: 07-11-2023 Evaluation + Plan note Associated Problem(s): BMI 26.0-26.9,adult Reviewed the merits of healthy lifestyle choices on overall cardiovascular health. [facility] Work Phone: 07-11-2023 Miscellaneous Notes Associated Problem(s): [...] without recurrent symptoms documented in this encounter [facility] Work Phone: 07-11-2023 Evaluation + Plan note Associated Problem(s): Mixed hyperlipidemia High intensity statin [facility] Work Phone: 07-11-2023 Evaluation + Plan note Associated Problem(s): Essential hypertension Optimal in office [facility] Work Phone: 07-11-2023 Evaluation + Plan note Associated Problem(s): SVT (supraventricular tachycardia) June 2023 ER presentation due to SVT 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 Potassium 2.9 at that time PE ruled out Dose of metoprolol increased and Cardizem added [facility] Work Phone: 07-11-2023 Evaluation + Plan note Associated Problem(s): Angina pectoris (CMS/HCC) Resolved [facility] Work Phone: 07-11-2023 Evaluation + Plan note Associated Problem(s): Hypertrophic nonobstructive cardiomyopathy (CMS/HCC) January 2022 TTE Hyperdynamic LVEF 75 to 80% Severe symmetric LVH with cavitary obliteration during systole with no significant gradient. December 2022 cardiac cath LVEF 80% [facility] Work Phone: 07-11-2023 Evaluation + Plan note Associated Problem(s): ASHD (arteriosclerotic heart disease) November 2021 PCI mCX & dRCA December 2022 cardiac cath mCX patent stent dRCA patent stent LAD normal Current daily activity less than 4 METS without recurrent symptoms [facility] Work Phone: 07-10-2023 History of Present illness [...] office if new symptoms arise. Dr. Gongora [facility] [place] Isabel Cagle MSN, FRUIT TRIMMER[employer], PMHNP-[facility] Please excuse any errors in grammar or translation related to this dictation. Voice recognition software was utilized to prepare this document. documented in this encounter [facility] Work Phone: 07-10-2023 Instructions LEANA Ramos - [...] Dr. Gongora months documented in this encounter [facility] Work Phone: 06-19-2023 Note Cardiology consulted for tachycardia EKG and telemetry show Atrial tachycardia Will start Cardizem CD 120 mg daily Close outpatient follow recommended I asked her to see PCP or cardiology within 1 week. Maritza Pardo MD [place] Cardiology [facility] 06-19-2023 Note Patient: Jeanmarie chavarria Procedure Summary Date: 06/19/23 Room / Location: [facility] Main Operating Room Anesthesia Start: 1208 Anesthesia [...] able to get In touch with her consumer loan officer () who stated that any arrythmias such [...] per anesthesia protocol. No notable events documented. [facility] 06-19-2023 Note Airway Date/Time: 06/19/2023 12:15 PM Urgency: elective Airway not difficult General Information and Staff Patient location during procedure: OR Anesthesiologist: Elisabeth Kendall MD Resident/TANK RIVETER/CAA: KYLE Wan Performed: resident/TANK RIVETER/CAA Indications and Patient Condition Indications for airway management: anesthesia Spontaneous ventilation: present Sedation level: deep Preoxygenated: yes Patient position: sniffing Mask difficulty assessment: 0 - not attempted Final Airway Details Final airway type: supraglottic airway Successful airway: i-gel Size 4 Number of attempts at approach: 1 Ventilation between attempts: none Number of other approaches attempted: 1 [facility] 06-19-2023 Note Patient: Jeanmarie chavarria Procedure Summary Date: 06/19/23 Room / Location: [facility] Main Operating Room Anesthesia Start: 1208 Anesthesia [...] VSS, SV well, arousable, report to RN [facility] 06-19-2023 Note Patient: Jeanmarie chavarria Procedure Information Date/Time: 06/19/23 1200 Scheduled providers: Betito Foss MD; Elisabeth Kendall MD; KYLE Wan Procedure: BRONCHOSCOPY Location: [facility] Main Operating Room Relevant Problems No relevant [...] Plan discussed with CAA. Additional Equipment Requests [facility] 06-15-2023 Note Attestation signed by [...] me. Pulmonary Clinic Visit Note Patient: Jeanmarie Farai Age: 57 y.o. : 1965 Account No.: [id number] Chief complaint: Stent reversion HPI Jeanmarie Faria [...] was initiated by the patient and conducted [id number]-avcy-zf-face with use of audio-only real time telephone communication between patient and provider for a virtual visit. Verbal consent to provide and bill for this service was obtained on 06/15/2023. No signature was obtained due to the COVID-19 pandemic. Julio Taylor Pulmonary and critical care fellow [facility]. 06/15/23 11:39 AM [facility] 05-11-2023 Note HNO ID: [id number] Author: Saleem Fitch MD Service: ? Author Type: Physician Type: Progress Notes Filed: 05/19/2023 12:32 AM Note Text: [facility] Radiation Oncology Department RADIATION ONCOLOGY - [...] in coordination with Dr. Rodriguez at the [facility]. AREA TREATED: Chest/Mediastinum/Left Neck DELIVERED DOSE: [...] Signed cc: Archana Rodriguez MD [address] [facility] [address] [address] Betito Foss MD [address] [facility] [address] [address] [facility] [address] [facility] [address] [address] [facility] 05-11-2023 Note HNO ID: [id number] Author: Saleem Fitch MD Service: ? Author [...] again regarding smoking cessation. Saleem Fitch MD [facility] 05-11-2023 History of Present illness Narrative [facility] Radiation Oncology Department RADIATION ONCOLOGY - [...] in coordination with Dr. Rodriguez at the [facility]. AREA TREATED: Chest/Mediastinum/Left Neck DELIVERED DOSE: [...] Signed cc: Archana Rodriguez MD [address] [place] [facility] [place] [address] [address] Betito Foss MD [address] [facility] [id number] [address] Aris Chau [facility] [address] [facility] [address] [address] documented in this encounter [facility] 05-04-2023 Note HNO ID: [id number] Author: Saleem Fitch MD Service: ? Author [...] radiation treatment as planned. Saleem Fitch MD [facility] 05-03-2023 History of Present illness Narrative Radiation [...] Saleem Fitch MD documented in this encounter [facility] 04-27-2023 Note HNO ID: [id number] Author: Saleem Fitch MD Service: ? Author [...] again regarding smoking cessation. Saleem Fitch MD [facility] 04-26-2023 History of Present illness Narrative Radiation [...] Saleem Fitch MD documented in this encounter [facility] 04-26-2023 Nurse Note Status: Post-menopausal. documented in this encounter [facility] 04-19-2023 Note HNO ID: [id number] Author: Saleem Fitch MD Service: ? Author [...] tapering dose of steroids. Saleem Fitch MD [facility] 04-19-2023 History of Present illness Narrative Radiation [...] Saleem Fitch MD documented in this encounter [facility] 04-18-2023 Note HNO ID: [id number] Author: Bri Bernard LMT Service: ? Author [...] Date: April 18, 2023 Time: 2:18 PM [facility] 04-18-2023 History of Present illness Narrative Patient [...] Time: 2:18 PM documented in this encounter [facility] 04-12-2023 Note HNO ID: [id number] Author: Saleem Fitch MD Service: ? Author [...] will continue to monitor. Saleem Fitch MD [facility] 04-11-2023 Miscellaneous Notes LM for pt to CB regarding missed XRT appt. Nilsa Deal RN documented in this encounter [facility] 04-05-2023 Note HNO ID: [id number] Author: Saleem Fitch MD Service: ? Author [...] to help with expectoration. Saleem Fitch MD [facility] 04-05-2023 History of Present illness Narrative Radiation [...] Saleem Fitch MD documented in this encounter [facility] 04-05-2023 Nurse Note Status: Post-menopausal. documented in this encounter [facility] 03-28-2023 Note HNO ID: [id number] Author: Saleem Fitch MD Service: ? Author [...] the course of treatment. Saleem Fitch MD [facility] 03-28-2023 History of Present illness Narrative Radiation [...] Saleem Fitch MD documented in this encounter [facility] 03-28-2023 Nurse Note Aromatherapy to promote a healing environment. TYPE: container SCENT: citrus blend Aromatherapy education materials were provided and reviewed with the patient. Toney Bailon LPN documented in this encounter [facility] 03-28-2023 Nurse Note Radiation Therapy - Patient Education Note PATIENT NAME: Jeanmarie Faria PATIENT March 28, 2023 [facility] FACILITY/LOCATION: [facility] READINESS TO LEARN Cognitive Ability: Alert [...] need for social work, van service, and crystal machining coordinator. Patient is scheduled to see crystal machining coordinator at [facility]. Was approved? No Signed by: Toney Bailon LPN documented in this encounter [facility] 03-28-2023 Nurse Note Status: Patient states there is no possibility she is at this time. documented in this encounter [facility] 03-28-2023 Note Education (RUY) JEANMARIE FARIA ([id number]) 1965 F Date Time Provider Department 03/28/23 TONEY BAILON Reason for Visit: Patient Education [91] Visit Notes: >> Toney Bailon LPN Tue Mar 28, 2023 3:21 PM Status: Signed Radiation Therapy - Patient Education Note PATIENT NAME: Jeanmarie Faria PATIENT March 28, 2023 [facility] FACILITY/LOCATION: [facility] READINESS TO LEARN Cognitive Ability: Alert [...] need for social work, van service, and crystal machining coordinator. Patient is scheduled to see crystal machining coordinator at [facility]. Was approved? No Signed by: Toney [...] Encounter Status:Closed by TONEY BAILON on 03/28/23 [facility] 03-23-2023 Miscellaneous Notes I notified Jeanmarie of her upcoming new start appointment. She is scheduled for 03/28/23 at 2:30. Patient is in agreement with this appt. Toney Bailon LPN documented in this encounter [facility] 03-22-2023 Note HNO ID: [id number] Author: Saleem Fitch MD Service: ? Author Type: Physician Type: Progress Notes Filed: 03/21/2023 11:27 PM Note Text: Radiation Oncology - New Patient/Consult Note PATIENT NAME: Jeanmarie Faria PATIENT REQUESTING PHYSICIAN: Archnaa Rodriguez MD DIAGNOSIS: Locally advanced non-small lung cancer (staging pending) PATIENT IDENTIFICATION: This patient was seen in the Department of Radiation Oncology at the [facility] with Saleem Fitch MD. Final recommendations will be communicated back to the requesting physician by way of the shared medical record, or letter to requesting physician via US mail. HISTORY OF PRESENT ILLNESS: Ms. Faria is a 57-year-old woman in [place], [place] who was found to have a [...] met with Dr. Rodriguez medical oncology at [facility] and referred to front desk monitor Dr. Foss as an outpatient. She underwent [...] the past year and having had an NE approximately a year ago. She does note [...] Ms. Faria is and lives in the [place], [place] area. 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 She notes an approximate 26-jxtm-tbem history of smoking and has reduced down [...] PATHOLOGIC DATA: 03/03/2023 (more content not included)... [facility] 03-18-2023 Note HNO ID: [id number] Author: Saleem Fitch MD Service: ? Author [...] which included preparing to see the patient, [id number] patient care, counseling and educating the patient/family/caregiver, and communicating results to the patient/family/caregiver. This document has been created with the use of voice recognition technology. It may contain inaccuracies, misspellings, inaccurate syntax or inappropriate word context that are a result of the inadequacies/shortcomings of said technology/software. [facility] 03-17-2023 History of Present illness Narrative Radiation [...] which included preparing to see the patient, [id number] patient care, counseling and educating the patient/family/caregiver, and communicating results to the patient/family/caregiver. This document has been created with the use of voice recognition technology. It may contain inaccuracies, misspellings, inaccurate syntax or inappropriate word context that are a result of the inadequacies/shortcomings of said technology/software. documented in this encounter [facility] 03-17-2023 Note HNO ID: [id number] Author: Saleem Fitch MD Service: ? Author Type: Physician Type: Progress Notes Filed: 03/25/2023 12:33 AM Note Text: JEANMARIE FARIA [id number] 03/17/2023 [facility] Department of Radiation Oncology Treatment Planning [...] Electronically Signed Saleem Fitch M.D. 35:10 PM [facility] 03-17-2023 Note HNO ID: [id number] Author: Saleem Fitch MD Service: ? Author Type: Physician Type: Progress Notes Filed: 06/06/2023 9:45 AM Note Text: JEANMARIE FARIA [id number] 03/17/2023 [facility] Radiation Oncology Department SIMULATION NOTE DATE OF SIMULATION: 03/17/2023 THERAPIST: Gayathri Valdez MACHINE: [employer] DIAGNOSIS: C34.82 Malignant neoplasm of overlapping sites of left bronchus and lung AREA: LUNG CONTRAST: IV Oral Consent in Epic: Yes PATIENT POSITION: Supine. FIXATION DEVICE: In order to achieve accurate and reproducible treatments, the patient is immobilized with THE ORFIT AIO SYSTEM. 50ML OF [id number] WAS INJECTED VIA THE RIGHT WRIST SIPS OF 20ML OF [id number] DILUTED IN 450 ML OF WATER WAS [...] Saleem Fitch M.D. / GHANSHYAM 37:18 PM [facility] 03-17-2023 Note HNO ID: [id number] Author: Saleem Fitch MD Service: ? Author Type: Physician Type: Progress Notes Filed: 03/21/2023 12:34 AM Note Text: JEANMARIE FARIA [id number] 03/17/2023 [facility] Radiation Oncology Department SIMULATION NOTE DATE OF SIMULATION: 03/17/2023 THERAPIST: Gayathri Valdez MACHINE: [employer] DIAGNOSIS: AREA: LUNG CONTRAST: IV Oral Consent in Epic: Yes PATIENT POSITION: Supine. FIXATION DEVICE: In order to achieve accurate and reproducible treatments, the patient is immobilized with THE ORFIT AIO SYSTEM. 50ML OF [id number] WAS INJECTED VIA THE RIGHT WRIST SIPS OF 20ML OF [id number] DILUTED IN 450 ML OF WATER WAS [...] Saleem Fitch M.D. / GHANSHYAM 34:08 AM [facility] 03-17-2023 History of Present illness Narrative JEANMARIE FARIA [id number] 03/17/2023 [facility] Radiation Oncology Department SIMULATION NOTE DATE OF SIMULATION: 03/17/2023 THERAPIST: Gayathri Valdez MACHINE: [employer] mCT DIAGNOSIS: C34.82 Malignant neoplasm of overlapping sites of left bronchus and lung AREA: LUNG CONTRAST: IV Oral Consent in Epic: Yes PATIENT POSITION: Supine. FIXATION DEVICE: In order to achieve accurate and reproducible treatments, the patient is immobilized with THE ORFIT AIO SYSTEM. 50ML OF [id number] WAS INJECTED VIA THE RIGHT WRIST SIPS OF 20ML OF [id number] DILUTED IN 450 ML OF WATER WAS [...] GHANSHYAM 37:18 PM documented in this encounter [facility] 03-17-2023 History of Present illness Narrative JEANMARIE FARIA [id number] 03/17/2023 [facility] Department of Radiation Oncology Treatment Planning [...] M.D. 35:10 PM documented in this encounter [facility] 03-15-2023 Note HNO ID: [id number] Author: Nancy Sanabria, RT(R) Service: ? Author Type: Technologist Type: [...] 0810 PATIENT DISCHARGED TO: Ambulatory patient, left [place] department area. A Diagnostic radioactive procedure has taken place, with no further precautions necessary other than routine body substance precautions. More information regarding radiation safety can be found using this link: [email or web address] [email or web address] SIGNATURE: Nancy Sanabria RT(R) PATIENT NAME: Jeanmarie Faria DATE: March 15, 2023 TIME: 11:18 AM PAGER/CONTACT #: [facility] 03-15-2023 Note HNO ID: [id number] Author: Diane Boston RN Service: ? Author [...] DATE: March 15, 2023 TIME: 8:04 AM [facility] 03-14-2023 Miscellaneous Notes Received Hem/Onc consult notes 03/07/23 from [facility] Record scanned in Guilherme Fernandez commercial administrator documented in this encounter [facility] 03-10-2023 Note Patient: Jeanmarie chavarria Procedure Summary Date: 03/10/23 Room / Location: [facility] Main Operating Room Anesthesia Start: 1102 Anesthesia [...] no known notable events for this encounter. [facility] 03-10-2023 Note Patient: Jeanmarie chavarria Procedure Information Date/Time: 03/10/23 1030 Scheduled providers: Betito Foss MD; Marielle Randhawa MD Procedure: BRONCHOSCOPY Location: [facility] Main Operating Room Past Medical History: Diagnosis [...] resident and medical student. Additional Equipment Requests [facility] 03-10-2023 Miscellaneous Notes Images from the original note were not included. Thoracic Surgery Consultation - review of records for appointment scheduling Received medical records from the office of Archana Rodriguez [address] [place] [address] Patient is being referred to Stan Garcia [...] position. ebus 03/03/2023 Imaging PET/CT: 03/15/[address] [place] [address] (chest) 02/19/23 Cardiopulmonary Testing PFT's/Six: requested [...] Fitch to discuss PET scan 03/15 at [facility], await results Nancy Beach RN LOCAL PATIENT Received Fax from Dr. Archana Palominomaribel Faria is being referred to Stan Garcia M.D., Ph. D. Or Lamonte Guerra by Dr. Archana Rodriguez [address] [place] [id number] Patient diagnosis/Reason for consult: Lung Cancer Referral triage process explained: No Patient will receive a call from Thoracic NPM after triage review with surgeon to discuss any additional testing and/or consults that will be scheduled. Pt will then receive a call from our scheduling office for scheduling. Please call pt at [phone]. Patient was informed consultation could be at [place] or [facility] [place]: No Patient Registration: Registration complete/updated: yes Insurance card(s) scanned in [facility] with in the past year: Yes: Date: 03/08/23 Pt's MyChart is Pending. Ok to communicate to pt via FRUCT not asked Medical Records: Records in [facility] (internal CC records): Yes Imaging in [facility] (internal CC records): Yes Care Everywhere - queried yes, downloaded Yes Linked Outside Organizations (list): [facility]; [facility]; [facility] Records Requested: No Date: N/A Outside Hospital(s) requested records from: n/a Received: yes Uploaded: Yes. Waiting on additional records: No. Missing (list): N/A OS Pathology Slides Requested: no Date: N/A Outside Hospital(s) slides requested from: n/a OS Radiology Imaging Requested: yes Date: March 08, 2023 Outside Hospital(s) requested imaging from: [facility]. Imaging will be received via Electronic Transfer Received: Yes Imaging uploaded: Yes Waiting on additional: No Missing (list): n/a Additional providers added to Care Teams: Yes Additional Notes/Comments: n/a Enct routed to: Zana Louis NPM for Triage pernell Constantino asst documented in this encounter [facility] 03-08-2023 Miscellaneous Notes I notified Carla with Dr. Gongora's office, cardiology, that Jeanmarie will be scheduled for a bronchoscopy with pulmonary stent placement with Faride[facility] Velez front desk monitor, and will need cardiac clearance. I provided Carla with Dr. Foss's phone and fax number and she notify Dr. Gongora. Toney Bailon LPN documented in this encounter [facility] 03-03-2023 Note No concerns as per c all back guidelines [facility] 03-03-2023 Note Patient: Jeanmarie chavarria Procedure Summary Date: 03/03/23 Room / Location: [facility] Main Operating Room Anesthesia Start: 1333 Anesthesia Stop: 1500 Procedure: BRONCHOSCOPY Diagnosis: Mediastinal [...] per anesthesia protocol. No notable events documented. [facility] 03-03-2023 Note Airway Date/Time: 03/03/2023 1:45 PM Urgency: elective Airway not difficult General Information and Staff Patient location during procedure: OR Anesthesiologist: Jacky Yuan MD Resident/TANK RIVETER/CAA: Isiah Alves MD Performed: resident/TANK RIVETER/CAA Indications and Patient Condition Indications for airway management: anesthesia Spontaneous ventilation: present Sedation level: deep Preoxygenated: yes Patient position: sniffing Final Airway Details Final airway type: supraglottic airway Successful airway: i-gel Size 4 Number of attempts at approach: 1 Number of other approaches attempted: 0 [facility] 03-03-2023 Note Patient: Jeanmarie chavarria Procedure Summary Date: 03/03/23 Room / Location: [facility] Main Operating Room Anesthesia Start: 1333 Anesthesia Stop: Procedure: BRONCHOSCOPY Diagnosis: Mediastinal adenopathy Scheduled Providers: Betito Foss MD; Jacky Yuan MD Responsible Provider: Jacky Yuan MD Anesthesia Type: general ASA Status: 4 Anesthesia Post Transport Note Transport to: PACU O2 Route: room air Patient Monitor: direct observation Transport: uneventful Patient condition is: stable [facility] 03-03-2023 Note Patient: Jeanmarie chavarria Procedure Information Date/Time: 03/03/23 1330 Scheduled providers: Betito Foss MD; Jacky Yuan MD Procedure: BRONCHOSCOPY Location: [facility] Main Operating Room Relevant Problems No relevant [...] No date: COPD (chronic obstructive pulmonary disease) ([facility]/HCC) No date: Coronary artery disease No date: Diverticulosis No date: GERD (gastroesophageal reflux disease) No date: History of transfusion No date: Hyperlipidemia No date: Hypertension No date: Irritable bowel syndrome No date: Mediastinal mass 11/2021: Myocardial infarction ([facility]/HCC) No date: Spastic colon Current Outpatient Medications [...] Plan discussed with resident. Additional Equipment Requests [facility] 02-24-[address] Rodriguez . Patient was admitted to [facility], found to have a large mediastinal mass. I have reviewed the images and the patient will need an urgent EBUS-TBNA. Orders placed Betito Foss MD Interventional Pulmonary Medicine Pulmonary and Critical Care Medicine [facility] Physicians [facility] 12-30-2022 Discharge summary Note Date/Time December 30, 2022 1:19pm [facility] [address] [place] [address] Discharge Summary Signed Patient: Jeanmarie Faria MR#: [id number] : 1965 Acct:[id number] Age/Sex: 57 / F Adm Date: 3 [...] LHC & COR Angio - W Jeff Gongora DO Complications Complications: None Diagnostic Studies Completed and [...] % (Auto) 60.8, Lymph % (Auto) 27.2, Cassia % (Auto) 10.1, Eos % (Auto) 1.0, Baso % (Auto) 0.9, Nucleat RBC Rel Count 0.2, Neut # (Auto) 7.8 H, Lymph # (Auto) 3.5, Cassia # (Auto) 1.3 H, Eos # (Auto) [...] cessation Additional Instructions: DISCHARGE INSTRUCTIONS FOR CARDIAC SLUSHER OPERATOR PHONE NUMBER OF YOUR PHYSICIAN: [phone] PROCEDURE: Heart Cath The following instructions have [...] cold, numb, blue or white, call the consumer loan officer immediately. 4. ACTIVITY: You are advised to [...] bottle, follow the instructions on the bottle. [facility] is not responsible for incorrect prescription [...] signed by Teo Gongora DO> 12/30/22 1321 [facility] Work Phone: 1(935) 770-850505-05-2023 [facility] Discharge instructions Additional Instructions DISCHARGE INSTRUCTIONS FOR CARDIAC SLUSHER OPERATOR PHONE NUMBER OF YOUR PHYSICIAN: [phone] PROCEDURE: Heart Cath The following instructions have [...] cold, numb, blue or white, call the consumer loan officer immediately. 4. ACTIVITY: You are advised to [...] bottle, follow the instructions on the bottle. [facility] is not responsible for incorrect prescription information provided by the patient during their visit. Do not stop your medications without consulting your health care provider. Please take the list with you to your next doctor's appointment.[facility] Work Phone: 1(178) 660-114304-21-2022 Discharge summary Author Viviane Loco [facility] December 16, 2021 5:37pm Note Date/Time December 16, 2021 4:2 9pm [facility] [address] [place] [address] Discharge Summary Signed with Addenda Patient: Jeanmarie Faria MR#: [id number] : 1965 Acct:[id number] Age/Sex: 56 / F Adm Date: 2 Loc: Room: [address] [place] [address]: Viviane Loco MD Copies to: DO Viviane Emanuel MD~ ADDENDUM1 Hypertrophic cardiomyopathy Addendum Documented By: Viviane Loco MD 12/16/21 1737 Addendum Signed By: <Electronically signed by Viviane Loco MD> 12/16/21 1737 Providers Date of Discharge: 12/16/21 Discharging Provider: Viviane Loco Primary Care Provider: Aris Stewart Consults: 12/14/21 17:01 Consult to Cardiology Routine Discharge Diagnosis (1) NSTEMI (non-ST elevated myocardial infarction): (2) Smoker: Final Diagnosis Final Discharge Diagnosis: Non-ST elevation NE status post intervention in circumflex and RCA Hyperlipidemia LVH hypertrophy with septal asymmetry Summary Hospital Course Hospital course: 56 years old female was transferred with non-ST elevation NE. Patient presentedwith shortness of breath and chest pain. Patient was found to have non-ST elevation NE with significantly abnormal EKG and elevated troponins. [...] Laboratory work up and Imaging studies reviewed potline monitor - reviewed, no significant arrhythmias noted [...] LHC & COR Angio - W Jeff Gongora DO p CL Stent 1st Vessel CX SAMI - W Jeff Gongora, p CL PTCA Ea Add CX - W Jeff Gongora DO p CL Stent 1st Vessel RCA SAMI - W Jeff Gongora DO Diagnostic Studies Completed and Pending Studies [...] doctor or pharmacist, without first calling the consumer loan officer who implanted the stent. If you require [...] weight lifting, stair steppers, etc. until the consumer loan officer approves these activities. Check with the consumer loan officer on your first follow-up visit. CALL YOUR PHYSICIAN at [phone]: -If bleeding should occur from the catheter insertion site- apply pressure to the site then immediately call us. -Report any fever, redness, drainage, increased swelling, or firmness at the catheter insertion site. Some bruising or slight swelling may be present at thetime of discharge. -Should arm or leg become cold, numb, white, or blue, contact the consumer loan officer immediately. -IF you should experience episodes of [...] is recommended. Please call Central Scheduling at [phone] to schedule your appointment.] The attending consumer loan officer or [facility] nurse clinician should provide you with specific instructions regarding activity, diet, medications, and further follow up for you. Follow the medication instructions provided on your discharge. If the dosages and instructions on this sheet differ from the dosage and instructions on the bottle, follow the instructions on the bottle. [facility] [...] signed by Viviane Loco MD> 12/16/21 1629 [facility] Work Phone: 1(585) 424-385004-20-2022 Consult note Author Teo Gongora [facility] December 15, 2021 3:41pm Note Date/Time December 15, 2021 3:4 1pm [facility] [address] [place] [address] Cardiology Consult Note Signed Patient: Jeanmarie Faria MR#: [id number] : 1965 Acct:[id number] Age/Sex: 56 / F Adm Date: 2 Loc: Room: [address] [place] [address] Type : ADM INOo Attending Dr: Viviane Loco MD Copies to: DO Viviane Paredes MD W Scott Sheldon, DO~ Cardiology HPI History of Present Illness Consult Date: 12/15/21 Reason for Consult: Non-ST elevation NE HPI: Ms. Faria is a 56 year old female seen in interventional cardiology consultationat the request of [facility] attending and hospitalist for non-ST elevation NE. Patient developed severe chest discomfort yesterday, went to [facility] emergencyroom, initial troponins were elevated at 4000 [...] x10E3/uL Lymph # (Auto) 3.8 (1.00-4.8) x10E3/uL Cassia # (Auto) 1.3 H (0.0-0.8) x10E3/uL Eos [...] 10 Intake: Oral 0 / 10 10 10 Output: Urine 0 / 0 [...] signed by Teo Gongora DO> 12/15/21 1541 [facility] Work Phone: 1(323) 453-302804-20-2022 Procedure [facility]04-20-2022 Progress note Author Viviane Loco [facility] December 15, 2021 1:34pm Note Date/Time December 15, 2021 1:3 4pm [facility] [address] [place] [address] Hospitalist Progress Note Signed Patient: Jeanmarie Faria MR#: [id number] : 1965 Acct:[id number] Age/Sex: 56 / F Adm Date: 2 Loc: Room: [address] [place] [address] Type : ADM INOo Attending Dr: Viviane [...] elevated myocardial infarction): Plan 1. Non-ST elevation NE, currently patient is asymptomatic Significantly abnormal EKG with elevated troponins Plan for cardiac catheterization 2. Smoker 3. DVT prophylaxis Lovenox Documented By: Viviane Loco MD 12/15/211333 Signed By: <Electronically signed by Viviane Loco MD> 12/15/211333 [facility] Work Phone: 1(428) 203-196404-20-2022 [facility] History and physical note Author Viviane Loco [facility] December 14, 2021 6:12pm Note Date/Time December 14, 2021 6:1 2pm [facility] [address] [place] [address] Hospitalist H&P Signed Patient: Jeanmarie Faria MR#: [id number] : 1965 Acct:[id number] Age/Sex: 56 / F Adm Date: 2 Loc: Room: [address] [place] [address] Type : ADM IN Attending Dr: Viviane [...] problems. She went to emergency room at [facility]. EKG was done which showed ST [...] elevated myocardial infarction): Plan 1. Non-ST elevation NE, currently patient is asymptomatic Significantly abnormal EKG with elevated troponins Continue with telemetry in PCU, serial cardiac enzymes, check echocardiogram Continue with aspirin, already got at [facility]. Will give Lovenox therapeutic dose. Start statin Consult cardiology Start nitroglycerin patch 2. Smoker 3. 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 [facility] Diagnosis Neoplasm of lung- Primary Neoplasm of unspecified nature of respiratory system [facility] Diagnosis Neoplasm of lung- Primary Neoplasm of unspecified nature of respiratory system [facility] Diagnosis Malignant neoplasm of left lung, unspecified part of lung (HCC)- Primary [facility] Diagnosis Neoplasm of lung- Primary Neoplasm of unspecified nature of respiratory system [facility] Diagnosis Muscle soreness- Primary Mylagia and myositis, unspecified [facility] Diagnosis Neoplasm of lung- Primary Neoplasm of unspecified nature of respiratory system [facility] Diagnosis Smoking greater than 40 pack years- Primary Tobacco use disorder Neoplasm of lung Neoplasm of unspecified nature of respiratory system [facility] Neoplasm of lung- Primary Neoplasm of unspecified nature of respiratory system [facility] Diagnosis SVT (supraventricular tachycardia)- Primary Other specified cardiac dysrhythmias Hypertrophic nonobstructive cardiomyopathy (CMS/HCC) Other primary cardiomyopathies ASHD (arteriosclerotic heart disease) Coronary atherosclerosis of unspecified type of vessel, sycuan or graft Essential hypertension Unspecified essential hypertension Mixed hyperlipidemia Angina pectoris (CMS/HCC) Other and unspecified angina pectoris Non-small cell cancer of left lung (CMS/HCC) BMI 26.0-26.9,adult documented in this encounter [facility] Work Phone: Evaluation note* Diagnosis Neoplasm of lung- Primary Neoplasm of unspecified nature of respiratory system documented in this encounter [facility] Discharge instructions Additional Instructions DISCHARGE INSTRUCTIONS [...] doctor or pharmacist, without first calling the consumer loan officer who implanted the stent. If you require [...] weight lifting, stair steppers, etc. until the consumer loan officer approves these activities. Check with the consumer loan officer on your first follow-up visit. CALL YOUR PHYSICIAN at [phone]: -If bleeding should occur from the catheter insertion site- apply pressure to the site then immediately call us. -Report any fever, redness, drainage, increased swelling, or firmness at the catheter insertion site. Some bruising or slight swelling may be present at the time of discharge. -Should arm or leg become cold, numb, white, or blue, contact the consumer loan officer immediately. -IF you should experience episodes of [...] is recommended. Please call Central Scheduling at [phone] to schedule your appointment.] The attending consumer loan officer or [facility] nurse clinician should provide you with specific instructions regarding activity, diet, medications, and further follow up for you. Follow the medication instructions provided on your discharge. If the dosages and instructions on this sheet differ from the dosage and instructions on the bottle, follow the instructions on the bottle. [facility] is not responsible for incorrect prescription information provided by the patient during their visit. Do not stop your medications without consulting your health care provider. Please take the list with you to your next doctor's appointment.[facility] Work Phone: Progress note Author Teo Gongora [facility] December 16, 2021 5:24pm Note Date/Time December 16, 2021 5:2 1pm [facility] [address] [place] [address] Cardiology Progress Note Signed Patient: Jeanmarie Faria MR#: [id number] : 1965 Acct:[id number] Age/Sex: 56 / F Adm Date: 2 Loc: Room: [address] [place] [address] Type : ADM IN Attending Dr: Viviane Loco MD Copies to: ~ Date of Service: 12/16/2021 Subjective Principal diagnosis: Non-ST elevation NE, hypertrophic cardiomyopathy Interval history: Stable status post [...] Acute Documented By: Teo Gongora DO 12/16/21 172 Signed By: <Electronically signed by Teo Gongora DO> 12/16/21 1724 [facility] Work Phone: Chief Complaint and Reason for Visit Chief Complaint N Stemi Reason for Visit NSTEMI (non-ST eleva roney myocardial infarction) Smoker Chief Complaint Angina Class 2, ASHD , COB, Hx of NE Advance Directives No Advanced Directives Records Found Advance Directive Response Recorded Date/ Time Advance Directives No December 14, 2 022 3:50pm Chief Complaint * JEANMARIE FARIA is being seen for a 1 month follow-up of. * Patient is a 56-year-old female returns following recent non-ST elevation NE, , Discharged December 16, following revascularization of [...] has a history of heart transplantation in [place], and was sent to a [facility] with similar flulike illness and was diagnosed with influenza. * Patient remains on appropriate postinfarction guideline directed medical therapies, she still smoking 1/2 pack cigarettes a day but is cut back quite a bit. We continue to financial services counselor her extensively on tobacco cessation and [...] She has a history of non-ST elevation NE in November 2021 with two-vessel revascularization involving [...] lung (HCC) Procedures RAD/ONC CONSULT OFFICE/OUTPATIENT [facility] 60-74 MINUTES Stan Garcia MD, PhD [address] [place] [id number] Referral ID Status Reason Start Date Expiration Date Visits Requested Visits Authorized [id number] Authorized PCP Requested Referral 03/10/2023 03/09/2024 1 1 Specialty Diagnoses / Procedures Referred By Contac t Referred To Contact Oncology Diagnoses Malignant neoplasm of left lung, unspecified part of lung (HCC) Procedures CONSULT TO ONCOLOGY OFFICE/OUTPATIENT [facility] 60-74 MINUTES Stan Garcia MD, PhD [address] [place] [address] Referral ID Status Reason Start Date Expiration Date Visits Requested Visits Authorized [id number] Authorized PCP Requested Referral 03/10/2023 03/09/2024 1 1 Specialty Diagnoses / Procedures Referred By Contac t Referred To Contact MR IMAGING Diagnoses Secondary malignant neoplasm of brain (HCC) Malignant neoplasm of left lung, unspecified part of lung (HCC) Procedures MRI BRAIN WO/W IVCON MRI BRAIN BRAIN STEM W/O W/CONTRAST MATERIAL Stan Garcia MD, PhD [address] [address] Mr Imaging Referral ID Status Reason Start Date Expiration Date Visits Requested Visits Authorized [id number] Pending Review Auto-Generat ed Referral 03/10/2023 04/08/2024 1 1 Specialty Diagnoses / Procedures Referred By Contac t Referred To Contact RADIATION ONCOLOGY Diagnoses Malignant neoplasm of unspecified part of left bronchus or lung Procedures CT SIM PLANNING RADIATION ONCOLOGY THER RAD SIMULAJ-AIDED FIELD SETTING COMPLEX INTENSITY MODULATED RADIATION TX DLVR COMPLEX IMRT 30 fractions Saleem Fitch MD [facility] [place] [address] Kristyn Flores [place] [address] Referral ID Status Reason Start Date Expiration Date Visits Requested Visits Authorized [id number] Authorized PCP Requested Referral Patient Cleared INN/SMCP Payor Auth Obtained 03/21/2023 06/21/2023 31 31 Specialty Diagnoses / Procedures Referred By Contac t Referred To Contact Diagnoses SVT (supraventricular tachycardia) Procedures ECG 12 Lead Isabel Cagle, FRUIT TRIMMER[employer] FARMWORKER [address] [place] [address] Referral ID Status Reason Start Date Expiration Date V isits Requested Visits Authorized [id number] Pending Review 07/11/2023 07/10/2024 1 1 Specialty Diagnoses / Procedures Referred By Contac t Referred To Contact Cardiology Diagnoses Hypertrophic nonobstructive cardiomyopathy (CMS/HCC) ASHD (arteriosclerotic heart disease) Procedures Follow Up In Cardiology Hemant Caglegeoffrey Hernandez, FRUIT TR[employer] FARMWORKER [address] [place] [address] Brett Gongora DO [address] [place] [address] Referral ID Status Reason Start Date Expiration Date V isits Requested Visits Authorized [id number] Authorized 07/10/2023 07/09/2024 1 1 Additional Source Comments Care Teams (unrecognized sec tion and content) Team Status: Inactive Member Role Status Dates Viviane Loco MD Admit Provider, Attending Provide r Active Trupti Cuellar RN Other Provider Active Teo Gongora DO Other [...] Active Teo Gongora DO Attending Provider Active Rn Labor And Delivery Relationship Specialty Start Date End Date Pat Aris [address] [place] [address] PCP - General Family Medicine 03/07/23 Betito Foss [address] [place] [phone] Critical Care 03/08/23 Rn Labor And Delivery Relationship Specialty Start Date End Date Pat Aris Isac Sr[address] [place] [address] PCP - General Family Medicine 03/07/23 Betito Foss [address] [place] [address] Critical Care 03/08/23 Rn Labor And Delivery Relationship Specialty Start Date End Date Pat Aris Isac Sr[address] [place] [address] PCP - General Family Medicine 03/07/23 Betito Foss [address] [place] [address] Critical Care 03/08/23 Rn Labor And Delivery Relationship Specialty Start Date End Date Pat Aris Isac [address] [place] [address] PCP - General Family Medicine 03/07/23 Betito Foss [address] [place] [phone] Critical Care 03/08/23 Rn Labor And Delivery Relationship Specialty Start Date End Date Aris Stewartip Sr. [address] [place] [address] PCP - General Family Medicine 03/07/23 Betito Foss [address] [place] [phone] Critical Care 03/08/23 Rn Labor And Delivery Relationship Specialty Start Date End Date Aris Stewartip Sr[address] [place] [address] PCP - General Family Medicine 03/07/23 Betito Foss [address] [place] [address] Critical Care 03/08/23 Rn Labor And Delivery Relationship Specialty Start Date End Date Aris Stewartip Sr[address] [place] [address] PCP - General Family Medicine 03/07/23 Betito Foss [address] [place] [address] Critical Care 03/08/23 Rn Labor And Delivery Relationship Specialty Start Date End Date Aris Stewartip Sr. [address] [place] [address] PCP - General Family Medicine 03/07/23 Betito Foss [address] [place] [address] Critical Care 03/08/23 Rn Labor And Delivery Relationship Specialty Start Date End Date Aris Stewartip Sr. [address] [place] [address] PCP - General Family Medicine 03/07/23 Betito Foss [address] [place] [phone] Critical Care 03/08/23 Rn Labor And Delivery Relationship Specialty Start Date End Date Aris Stewartip Sr. [address] [place] [address] PCP - General Family Medicine 03/07/23 Betito Foss [address] [place] [address] Critical Care 03/08/23 Rn Labor And Delivery Relationship Specialty Start Date End Date Aris Stewartip Sr. [address] [place] [address] PCP - General Family Medicine 03/07/23 Betito Foss [address] [place] [address] Critical Care 03/08/23 Rn Labor And Delivery Relationship Specialty Start Date End Date Aris Stewartip Sr. [address] [place] [address] PCP - General Family Medicine 03/07/23 Betito Foss [address] [place] [address] Critical Care 03/08/23 Rn Labor And Delivery Relationship Specialty Start Date End Date Aris Stewart Sr. [address] [place] [address] PCP - General Family Medicine 03/07/23 Betito Foss MD [address] [place] [address] Critical Care 03/08/23 Rn Labor And Delivery Relationship Specialty Start Date End Date Aris Stewart Sr. [address] [place] [address] PCP - General Family Medicine 03/07/23 Betito Foss MD [address] [place] [phone] Critical Care 03/08/23 Rn Labor And Delivery Relationship Specialty Start Date End Date Aris Stewart Sr. [address] [place] [address] PCP - General Family Medicine 03/07/23 Betito Foss MD [address] [place] [address] Critical Care 03/08/23 Rn Labor And Delivery Relationship Specialty Start Date End Date Aris Stewart, [address] [place] [id number] PCP - General 01/25/22 Rn Labor And Delivery Relationship Specialty Start Date End Date Aris Stewart Sr., DO [address] [place] [address] PCP - General Family Medicine 03/07/23 Betito Foss MD [address] [place] [phone] Critical Care 03/08/23 Reason for Visit (unrecogniz [...] Rate Specialty Diagnoses / Procedures Referred By Contyudi t Referred To Contact Diagnoses SVT (supraventricular tachycardia) Procedures ECG 12 Lead Isabel Cagle, FRUIT TRIMMER[employer]DIV[employer] FARMWORKER [address] [facility] [address] [place] [address] Referral ID Status Reason Start Date Expiration Date V isits Requested Visits Authorized [id number] Pending Review 07/11/2023 07/10/2024 1 1 Reason Comments Lung Cancer INFORMATION SOURCE (unrecogn ized section and content) DATE CREATED AUTHOR 02/24/2022 [facility] DATE CREATED AUTHOR AUTHOR'S ORGANIZ ATION 08/18/2022 [facility] DATE CREATED AUTHOR AUTHOR'S ORGANIZ ATION 12/30/2022 [employer] DATE CREATED AUTHOR AUTHOR'S ORGANIZ ATION 01/05/2023 [facility] DATE CREATED AUTHOR AUTHOR'S ORGANIZ ATION 04/27/2023 [facility] DATE CREATED AUTHOR AUTHOR'S ORGANIZ ATION 06/20/2023 [facility] DATE CREATED AUTHOR AUTHOR'S ORGANIZ ATION 07/11/2023 [facility] DATE CREATED AUTHOR AUTHOR'S ORGANIZ ATION 11/26/2023 [facility] DATE CREATED AUTHOR AUTHOR'S ORGANIZ ATION 11/30/2023 [facility] DATE CREATED AUTHOR AUTHOR'S ORGANIZ ATION 12/05/2023 [facility] DATE CREATED AUTHOR AUTHOR'S ORGANIZ ATION 12/10/2023 [facility] Source Comments (unrecognize d section and content) In the event this informatio n is protected by the Federal Confidentiality of Alcohol and Drug Abuse Patient Records regulations: The Federal rules restrict any use of the information to criminally investigate or prosecute any alcohol or drug abuse patient.[facility] event this information is protected by the Federal Confidentiality of Alcohol and Drug Abuse Patient Records regulations: The Federal rules restrict any use of the information to criminally investigate or prosecute any alcohol or drug abuse patient.[facility] the event this information is protected by the Federal Confidentiality of Alcohol and Drug Abuse Patient Records regulations: The Federal rules restrict any use of the information to criminally investigate or prosecute any alcohol or drug abuse patient.[facility] the event this information is protected by the Federal Confidentiality of Alcohol and Drug Abuse Patient Records regulations: The Federal rules restrict any use of the information to criminally investigate or prosecute any alcohol or drug abuse patient.[facility] the event this information is protected by the Federal Confidentiality of Alcohol and Drug Abuse Patient Records regulations: The Federal rules restrict any use of the information to criminally investigate or prosecute any alcohol or drug abuse patient.[facility] the event this information is protected by the Federal Confidentiality of Alcohol and Drug Abuse Patient Records regulations: The Federal rules restrict any use of the information to criminally investigate or prosecute any alcohol or drug abuse patient.[facility] the event this information is protected by the Federal Confidentiality of Alcohol and Drug Abuse Patient Records regulations: The Federal rules restrict any use of the information to criminally investigate or prosecute any alcohol or drug abuse patient.[facility] the event this information is protected by the Federal Confidentiality of Alcohol and Drug Abuse Patient Records regulations: The Federal rules restrict any use of the information to criminally investigate or prosecute any alcohol or drug abuse patient.[facility] the event this information is protected by the Federal Confidentiality of Alcohol and Drug Abuse Patient Records regulations: The Federal rules restrict any use of the information to criminally investigate or prosecute any alcohol or drug abuse patient.[facility] the event this information is protected by the Federal Confidentiality of Alcohol and Drug Abuse Patient Records regulations: The Federal rules restrict any use of the information to criminally investigate or prosecute any alcohol or drug abuse patient.[facility] the event this information is protected by the Federal Confidentiality of Alcohol and Drug Abuse Patient Records regulations: The Federal rules restrict any use of the information to criminally investigate or prosecute any alcohol or drug abuse patient.[facility] the event this information is protected by the Federal Confidentiality of Alcohol and Drug Abuse Patient Records regulations: The Federal rules restrict any use of the information to criminally investigate or prosecute any alcohol or drug abuse patient.[facility] the event this information is protected by the Federal Confidentiality of Alcohol and Drug Abuse Patient Records regulations: The Federal rules restrict any use of the information to criminally investigate or prosecute any alcohol or drug abuse patient.[facility] the event this information is protected by the Federal Confidentiality of Alcohol and Drug Abuse Patient Records regulations: The Federal rules restrict any use of the information to criminally investigate or prosecute any alcohol or drug abuse patient.[facility] the event this information is protected by the Federal Confidentiality of Alcohol and Drug Abuse Patient Records regulations: The Federal rules restrict any use of the information to criminally investigate or prosecute any alcohol or drug abuse patient.[facility] the event this information is protected by the Federal Confidentiality of Alcohol and Drug Abuse Patient Records regulations: The Federal rules restrict any use of the information to criminally investigate or prosecute any alcohol or drug abuse patient.[facility] the event this information is protected by the Federal Confidentiality of Alcohol and Drug Abuse Patient Records regulations: The Federal rules restrict any use of the information to criminally investigate or prosecute any alcohol or drug abuse patient.[facility] the event this information is protected by the Federal Confidentiality of Alcohol and Drug Abuse Patient Records regulations: The Federal rules restrict any use of the information to criminally investigate or prosecute any alcohol or drug abuse patient.[facility] FOR RECORDS PERTAINING TO PATIENTS WHO [...] BE BASED ON THE PRIMARY CLINICAL RECORDS. [facility] [employer] [facility]. provides no warranty or guarantee of the accuracy or completeness of information in this document.
--- NOTE | 2023-12-10 16:57 | ED_ITS ---
HPI - Recheck/Abnormal Lab/Rx General Chief Complaint: Recheck/Abnormal Lab/Rx Stated Complaint: BLOOD COMING OUT OF CHEST PORT Time Seen by Provider: 12/10/23 16:34 Source: patient Mode of arrival: walk-in Limitations: no limitations History of Present Illness HPI narrative: The patient recently discharged home with access port to get medication, she is supposed to get Ancef at home multiple times and her daughter was helping her, the patient had question about the port as she thought it was bleeding because the blood was inside the port tubes, the patient seem to have question about the proper use of the port . No complaint of pain or anything else Related Data Home Medications ?Medication ?Instructions ?Recorded ?Confirmed aspirin 81 mg chewable tablet 81 mg PO DAILY 02/02/23 11/21/23 atorvastatin 80 mg tablet 80 mg PO .qhs 02/02/23 11/21/23 isosorbide mononitrate 30 mg 30 mg PO DAILY 02/02/23 11/21/23 tablet,extended release 24 hr nitroglycerin 0.4 mg sublingual 0.4 mg sublingual Q5M PRN chest 02/02/23 11/21/23 tablet pain omeprazole 20 mg capsule,delayed 20 mg PO DAILY 05/09/23 11/21/23 release bupropion HCl 150 mg 24 hr tablet, 150 mg PO DAILY 06/20/23 11/21/23 extended release ipratropium 0.5 mg-albuterol 3 mg 3 ml inhalation Q4H PRN shortness 11/21/23 11/21/23 (2.5 mg base)/3 mL nebulization of breath soln levothyroxine 50 mcg tablet 50 mcg PO DAILY 11/21/23 11/21/23 (Synthroid) magnesium 250 mg tablet 250 mg PO BID 11/21/23 11/21/23 metformin 500 mg tablet 500 mg PO BID 11/21/23 11/21/23 tiotropium 2.5 mcg-olodaterol 2.5 2 inh inhalation DAILY 11/21/23 11/21/23 mcg/actuation mist for inhalation (Stiolto Respimat) Previous Rx's ?Medication ?Instructions ?Recorded albuterol sulfate 90 mcg/actuation 2 inh inhalation Q4H PRN shortness 02/02/23 breath activated powder inhaler of breath #1 ea diltiazem HCl 240 mg 240 mg PO DAILY #30 caps 06/21/23 capsule,extended release 24 hr (Cardizem CD) metoprolol succinate 100 mg 100 mg PO QD #30 tabs 06/21/23 tablet,extended release 24 hr Allergies Allergy/AdvReac Type Severity Reaction Status Date / Time No Known Drug Allergies Allergy Verified 10/16/23 10:23 Review of Systems ROS Status of ROS 10 or more systems reviewed and unremark able except as noted in history and below [facility] Medical History (Updated 12/10/23 @ 17:00 by mAe Howell MD) Hypomagnesemia ?E83.42 - Hypomagnesemia (ICD-10) Acute hypokalemia ?E87.6 - Hypokalemia (ICD-10) Tachycardia ?R00.0 - Tachycardia, unspecified (ICD-10) Elevated troponin ?R79.89 - Other specified abnormal findings of blood chemistry (ICD-10) Pneumonia ?J18.9 - Pneumonia, unspecified organism (ICD-10) Bilateral pneumonia ?J18.9 - Pneumonia, unspecified organism (ICD-10) Lung cancer ?C34.90 - Malignant neoplasm of unspecified part of unspecified bronchus or lung (ICD-10) Tobacco abuse ?Z72.0 - Tobacco use (ICD-10) CAD (coronary artery disease) ?I25.10 - Atherosclerotic heart disease of [place] coronary artery without angina pectoris (ICD-10) IBS (irritable colon syndrome) ?K58.9 - Irritable bowel syndrome without diarrhea (ICD-10) Hernia ?K46.9 - Unspecified abdominal hernia without obstruction or gangrene (ICD- 10) COPD (chronic obstructive pulmonary disease) ?J44.9 - Chronic obstructive pulmonary disease, unspecified (ICD-10) Hyperlipemia ?E78.5 - Hyperlipidemia, unspecified (ICD-10) HTN (hypertension) ?I10 - Essential (primary) hypertension (ICD-10) Emphysema lung ?J43.9 - Emphysema, unspecified (ICD-10) Surgical History H/O colectomy ?Z90.49 - Acquired absence of other specified parts of digestive tract (ICD- 10) History of PTCA ?Z98.61 - Coronary angioplasty status (ICD-10) H/O: hysterectomy ?Z90.710 - Acquired absence of both cervix and uterus (ICD-10) Family History Mother Family history of CHF (congestive heart failure) Family history of diabetes mellitus Family history of hypertension Family history of myocardial infarction Social History Within the past year, how often did you have a drink containing alcohol: never Score interpretation: A score less than 3 is consistent with normal alcohol consumption. Smoking status: Former smoker Second hand tobacco smoke exposure: Yes Non-prescribed substance use: denies use Previous occupational history: Does not work Known occupational exposures/hazards: No Highest level of school completed/degree received: high school graduate Do you want help with school or training: No Are you now , , , , never or living with a partner: In a typical week, how many times do you talk on the telephone with family, friends, or neighbors: never How often do you get together with friends or relatives: never How often do you attend adventism or jehovah's witness services: never Do you belong to any clubs or organizations such as adventism groups unions, [employer] or athletic groups, or school groups: no Total score: 1 Score interpretation: A score of less than or equal to 1 indicates the most socially isolated. Little interest or pleasure in doing things: several days Feeling down, depressed, or hopeless: several days Feel stressed/tense/nervous/anxious/difficulty sleeping: very much Life stressors: other Life stressor details: Due to disability, difficulty making decisions: No Do you think of yourself as: straight/heterosexual Gender Identity: female Exam Narrative Exam Narrative: Nurses notes and vital signs reviewed and patient is not hypoxic. General: Well-appearing and in no apparent distress. Skin: Warm, dry, no pallor noted. No rash. Head: Normocephalic, atraumatic. Neck: Supple, non-tender. Eye: Pupils are equal, round and EOMI. No scleral icterus. Ears, Nose, Mouth, and Throat: TM are clear, no nasal mucosal hypertrophy. Oral mucosa is moist, no posterior oropharynx erythema, uvula is mid-line Cardiovascular: Regular Rate and Rhythm without murmur, gallop or rub. Respiratory: No accessory muscle use or respiratory distress. Lungs are clear to auscultation, no wheezing, rales or rhonchi Chest Wall: no tenderness, the patient have the port attached to the right side of the chest wall no signs of bleeding Back: No midline thoracic or lumbar vertebral tenderness. No CVA tenderness Musculoskeletal: normal ROM, no calf or popliteal tenderness, no lower extremity edema/swelling GI: Abdomen is soft, non-distended. Normal bowel sounds. No masses appreciated. No tenderness to palpation. No rebound, guarding, or rigidity noted. Neurological: A&O x4. No cranial nerve dysfunction observed. No truncal ataxia. Moves all extremities. Sensation intact. Psychiatric: Cooperative and interactive. Normal mood and affect. Constitutional Vital Signs, click to edit/add: Last Vital Signs Temp 98.3 F 12/10/23 16:34 Pulse 112 H 12/10/23 16:34 Resp 18 12/10/23 16:34 BP 113/82 12/10/23 16:34 Pulse Ox 97 12/10/23 16:34 O2 Del Method Room Air 12/10/23 16:34 Course Vital Signs Vital signs: Vital Signs Temperature 98.3 F 12/10/23 16:34 Pulse Rate 112 H 12/10/23 16:34 Respiratory Rate 18 12/10/23 16:34 Blood Pressure 113/82 12/10/23 16:34 Pulse Oximetry 97 12/10/23 16:34 Oxygen Delivery Method Room Air 12/10/23 16:34 Temperature 98.3 F 12/10/23 16:34 Pulse Rate 112 H 12/10/23 16:34 Respiratory Rate 18 12/10/23 16:34 Blood Pressure 113/82 12/10/23 16:34 Pulse Oximetry 97 12/10/23 16:34 Oxygen Delivery Method Room Air 12/10/23 16:34 MDM - Recheck/Abnormal Lab/Rx MDM Narrative Medical decision making narrative: The patient does have question about the use of the ports that she did not actually have any bleeding she apparently has been doing the heparin flushes and her daughter is helping her, the patient had questions about the port use and how to flush it and it all were answered to her. The patient is to follow up with primary care physician in next 2-3 days or to return to the emergency department should any of the signs or symptoms worsen or new symptoms develop. The patient agrees with the following Diagnosis and Treatment plan and the patient will be discharged home. Discharge Plan Discharge Stand Alone Forms: Portal Instructions Chief Complaint: Recheck/Abnormal Lab/Rx Clinical Impression: Encounter for care related to vascular access port Patient Disposition: Home, Self-Care Condition: Good Prescriptions / Home Meds: No Action omeprazole 20 mg capsule,delayed release(DR/EC) 20 mg PO DAILY levothyroxine [Synthroid] 50 mcg tablet 50 mcg PO DAILY metformin 500 mg tablet 500 mg PO BID Stiolto Respimat 2.5-2.5 mcg/actuation mist 2 inh inhalation DAILY ipratropium-albuterol 0.5 mg-3 mg(2.5 mg base)/3 mL solution for nebulization 3 ml inhalation Q4H PRN (Reason: shortness of breath) magnesium 250 mg tablet 250 mg PO BID aspirin 81 mg tablet,chewable 81 mg PO DAILY atorvastatin 80 mg tablet 80 mg PO .qhs isosorbide mononitrate 30 mg tablet extended release 24 hr 30 mg PO DAILY nitroglycerin 0.4 mg tablet, sublingual 0.4 mg sublingual Q5M PRN (Reason: chest pain) albuterol sulfate 90 mcg/actuation aerosol powdr breath activated 2 inh inhalation Q4H PRN (Reason: shortness of breath) Qty: 1 0RF bupropion HCl 150 mg tablet extended release 24 hr 150 mg PO DAILY metoprolol succinate 100 mg Tablet Extended Release 24 Hr 100 mg PO QD Qty: 30 11RF diltiazem HCl [Cardizem CD] 240 mg capsule,extended release 24hr 240 mg PO DAILY Qty: 30 11RF Print Language: Iranian Instructions: How to Care for Your Midline Catheter (ED) Referrals: Shaikh Morfin MD [Primary Care Provider] - 1 week
[2023-12-10 17:13] VITALS: BP 114/82; PULSE 102; O2SAT 94
== END 2023-12-10 17:14 | disposition home or self-care (01) ==
PROVIDERS: Emergency Provider Emergency Medicine; PCP Internal Medicine
DX: Z45.2 Encounter for adjustment and management of vascular access device (principal); C34.90 Malignant neoplasm of unspecified part of unspecified bronchus or lung; I25.10 Atherosclerotic heart disease of native coronary artery without angina pectoris; K58.9 Irritable bowel syndrome, unspecified; E78.5 Hyperlipidemia, unspecified; I10 Essential (primary) hypertension; J43.9 Emphysema, unspecified; Z90.49 Acquired absence of other specified parts of digestive tract; Z98.61 Coronary angioplasty status; Z90.710 Acquired absence of both cervix and uterus; Z79.82 Long term (current) use of aspirin; Z79.899 Other long term (current) drug therapy; Z79.890 Hormone replacement therapy; Z79.84 Long term (current) use of oral hypoglycemic drugs; Z87.891 Personal history of nicotine dependence; Z87.01 Personal history of pneumonia (recurrent)
CPT/HCPCS: 99281

== ENCOUNTER 2023-12-13 16:07 | Emergency (ER) | payer OTHER, SELFPAY ==
[2023-12-13 16:13] VITALS: BP 142/88; PULSE 78; O2SAT 96; BMI 28.9
[2023-12-13 16:23] VITALS: TEMP 36.9
--- NOTE | 2023-12-13 16:57 | ED.GENADUL1 ---
HPI HPI - General Adult General Chief complaint: Recheck/Abnormal Lab/Rx Stated complaint: Patient Educator Time Seen by Provider: 12/13/23 16:10 Source: patient Mode of arrival: walk-in Limitations: no limitations History of Present Illness HPI narrative: 58-year-old female presented to have her venous port accessed. The patient is a poor historian and did not fully understand why she was here. We talked to the home care nurse who had attempted to access the port today and only had 1 needle to access a port. She used it but the patient moved and contaminated that access needle. The patient was then sent here for access so that the patient could receive her IV antibiotic. Related Data Home Medications ?Medication ?Instructions ?Recorded ?Confirmed aspirin 81 mg chewable tablet 81 mg PO DAILY 02/02/23 11/21/23 atorvastatin 80 mg tablet 80 mg PO .qhs 02/02/23 11/21/23 isosorbide mononitrate 30 mg 30 mg PO DAILY 02/02/23 11/21/23 tablet,extended release 24 hr nitroglycerin 0.4 mg sublingual 0.4 mg sublingual Q5M PRN chest 02/02/23 11/21/23 tablet pain omeprazole 20 mg capsule,delayed 20 mg PO DAILY 05/09/23 11/21/23 release bupropion HCl 150 mg 24 hr tablet, 150 mg PO DAILY 06/20/23 11/21/23 extended release ipratropium 0.5 mg-albuterol 3 mg 3 ml inhalation Q4H PRN shortness 11/21/23 11/21/23 (2.5 mg base)/3 mL nebulization of breath soln levothyroxine 50 mcg tablet 50 mcg PO DAILY 11/21/23 11/21/23 (Synthroid) magnesium 250 mg tablet 250 mg PO BID 11/21/23 11/21/23 metformin 500 mg tablet 500 mg PO BID 11/21/23 11/21/23 tiotropium 2.5 mcg-olodaterol 2.5 2 inh inhalation DAILY 11/21/23 11/21/23 mcg/actuation mist for inhalation (Stiolto Respimat) Previous Rx's ?Medication ?Instructions ?Recorded albuterol sulfate 90 mcg/actuation 2 inh inhalation Q4H PRN shortness 02/02/23 breath activated powder inhaler of breath #1 ea diltiazem HCl 240 mg 240 mg PO DAILY #30 caps 06/21/23 capsule,extended release 24 hr (Cardizem CD) metoprolol succinate 100 mg 100 mg PO QD #30 tabs 06/21/23 tablet,extended release 24 hr Allergies Allergy/AdvReac Type Severity Reaction Status Date / Time No Known Drug Allergies Allergy Verified 12/13/23 16:20 Opioid HPI Opioid Management Most Recent Opioid Data: Last Pain Scale 8 06/09/23 12:10 Review of Systems ROS Narrative A ten point review of systems is negative except as noted above. [facility] Medical History (Updated 12/13/23 @ 16:57 by Storm Mcdonald MD) Hypomagnesemia ?E83.42 - Hypomagnesemia (ICD-10) Acute hypokalemia ?E87.6 - Hypokalemia (ICD-10) Tachycardia ?R00.0 - Tachycardia, unspecified (ICD-10) Elevated troponin ?R79.89 - Other specified abnormal findings of blood chemistry (ICD-10) Pneumonia ?J18.9 - Pneumonia, unspecified organism (ICD-10) Bilateral pneumonia ?J18.9 - Pneumonia, unspecified organism (ICD-10) Lung cancer ?C34.90 - Malignant neoplasm of unspecified part of unspecified bronchus or lung (ICD-10) Tobacco abuse ?Z72.0 - Tobacco use (ICD-10) CAD (coronary artery disease) ?I25.10 - Atherosclerotic heart disease of [place] coronary artery without angina pectoris (ICD-10) IBS (irritable colon syndrome) ?K58.9 - Irritable bowel syndrome without diarrhea (ICD-10) Hernia ?K46.9 - Unspecified abdominal hernia without obstruction or gangrene (ICD-10) COPD (chronic obstructive pulmonary disease) ?J44.9 - Chronic obstructive pulmonary disease, unspecified (ICD-10) Hyperlipemia ?E78.5 - Hyperlipidemia, unspecified (ICD-10) HTN (hypertension) ?I10 - Essential (primary) hypertension (ICD-10) Emphysema lung ?J43.9 - Emphysema, unspecified (ICD-10) Surgical History H/O colectomy ?Z90.49 - Acquired absence of other specified parts of digestive tract (ICD-10) History of PTCA ?Z98.61 - Coronary angioplasty status (ICD-10) H/O: hysterectomy ?Z90.710 - Acquired absence of both cervix and uterus (ICD-10) Family History Mother Family history of CHF (congestive heart failure) Family history of diabetes mellitus Family history of hypertension Family history of myocardial infarction Social History Within the past year, how often did you have a drink containing alcohol: never Score interpretation: A score less than 3 is consistent with normal alcohol consumption. Smoking status: Former smoker Second hand tobacco smoke exposure: Yes Non-prescribed substance use: denies use Previous occupational history: Does not work Known occupational exposures/hazards: No Highest level of school completed/degree received: high school graduate Do you want help with school or training: No Are you now , , , , never or living with a partner: In a typical week, how many times do you talk on the telephone with family, friends, or neighbors: never How often do you get together with friends or relatives: never How often do you attend confucianist or roman catholic services: never Do you belong to any clubs or organizations such as confucianist groups unions, fraternal or athletic groups, or school groups: no Total score: 1 Score interpretation: A score of less than or equal to 1 indicates the most socially isolated. Little interest or pleasure in doing things: several days Feeling down, depressed, or hopeless: several days Feel stressed/tense/nervous/anxious/difficulty sleeping: very much Life stressors: other Life stressor details: Due to disability, difficulty making decisions: No Do you think of yourself as: straight/heterosexual Gender Identity: female Exam Narrative Exam Narrative: Nurses note and vital signs reviewed and patient is not hypoxic. General: The patient appears well and in no apparent distress. Patient is resting comfortably on cart. Skin: Warm, dry, no pallor noted. There is no rash noted. Head: Normocephalic, atraumatic Eye: Normal conjunctiva, no drainage Ears, Nose, Mouth, and Throat: oral mucosa is moist. Nares patent. Cardiovascular: Regular Rate and Rhythm; there is a port in the right chest. There is no surrounding erythema. Respiratory: Patient is in no distress, no accessory muscle use, lungs are clear to auscultation, no wheezing, rales or rhonchi Back: non-tender GI: Soft and nontender Musculoskeletal: The patient has no evidence of calf tenderness, no pitting edema, symmetrical pulses noted bilaterally Neurological: A&O, normal speech Psychiatric: Cooperative Constitutional Vital Signs, click to edit/add: Last Vital Signs Temp 98.5 F 12/13/23 16:23 Pulse 78 12/13/23 16:13 Resp 18 12/13/23 16:13 BP 142/88 H 12/13/23 16:13 Pulse Ox 96 12/13/23 16:13 O2 Del Method Nasal Cannula 12/13/23 16:13 O2 Flow Rate 2 12/13/23 16:13 Course Vital Signs Vital signs: Vital Signs Pulse Rate 78 12/13/23 16:13 Respiratory Rate 18 12/13/23 16:13 Blood Pressure 142/88 H 12/13/23 16:13 Pulse Oximetry 96 12/13/23 16:13 Oxygen Delivery Method Nasal Cannula 12/13/23 16:13 Oxygen Delivery Flow Rate 2 12/13/23 16:13 Temperature 98.5 F 12/13/23 16:23 Pulse Rate 78 12/13/23 16:13 Respiratory Rate 18 12/13/23 16:13 Blood Pressure 142/88 H 12/13/23 16:13 Pulse Oximetry 96 12/13/23 16:13 Oxygen Delivery Method Nasal Cannula 12/13/23 16:13 Oxygen Delivery Flow Rate 2 12/13/23 16:13 Medical Decision Making MDM Narrative Medical decision making narrative: Our nursing staff has coordinated with the home care nurse and we have placed venous access needle. The patient is discharged home with that in place so that she can receive her IV antibiotic. Differential Diagnosis Differential Diagnosis: Need for venous access Discharge Plan Discharge Stand Alone Forms: Portal Instructions Chief Complaint: Recheck/Abnormal Lab/Rx Clinical Impression: Complication of totally implantable venous access device (TIVAD) Patient Disposition: Home, Self-Care Time of Disposition Decision: 16:56 Condition: Good Mode of Transportation: Private Vehicle Prescriptions / Home Meds: No Action omeprazole 20 mg capsule,delayed release(DR/EC) 20 mg PO DAILY levothyroxine [Synthroid] 50 mcg tablet 50 mcg PO DAILY metformin 500 mg tablet 500 mg PO BID Stiolto Respimat 2.5-2.5 mcg/actuation mist 2 inh inhalation DAILY ipratropium-albuterol 0.5 mg-3 mg(2.5 mg base)/3 mL solution for nebulization 3 ml inhalation Q4H PRN (Reason: shortness of breath) magnesium 250 mg tablet 250 mg PO BID aspirin 81 mg tablet,chewable 81 mg PO DAILY atorvastatin 80 mg tablet 80 mg PO .qhs isosorbide mononitrate 30 mg tablet extended release 24 hr 30 mg PO DAILY nitroglycerin 0.4 mg tablet, sublingual 0.4 mg sublingual Q5M PRN (Reason: chest pain) albuterol sulfate 90 mcg/actuation aerosol powdr breath activated 2 inh inhalation Q4H PRN (Reason: shortness of breath) Qty: 1 0RF bupropion HCl 150 mg tablet extended release 24 hr 150 mg PO DAILY metoprolol succinate 100 mg Tablet Extended Release 24 Hr 100 mg PO QD Qty: 30 11RF diltiazem HCl [Cardizem CD] 240 mg capsule,extended release 24hr 240 mg PO DAILY Qty: 30 11RF Print Language: Vincentian Instructions: Implanted Venous Access Port (DC), How to Care for Your Implanted Venous Access Port (DC) Referrals: Shaikh Morfin MD [Primary Care Provider] - 1 week
--- NOTE | 2023-12-13 17:04 | PC.NURSE ---
pt here to have her port re-accessed. pt home health nurse only had 1 kit with her and missed the port. per home health nurse pt called the cancer center for port access and was told they could not access it and was instructed to go to er. pt right chest port accessed with a 20g ceja needle. good blood return and port was flushed with 20ml of NS. line was clamped and dressing applied.
== END 2023-12-13 17:19 | disposition home or self-care (01) ==
PROVIDERS: Emergency Provider Emergency Medicine; PCP Internal Medicine
DX: Z45.2 Encounter for adjustment and management of vascular access device (principal); I25.10 Atherosclerotic heart disease of native coronary artery without angina pectoris; K58.9 Irritable bowel syndrome, unspecified; C34.90 Malignant neoplasm of unspecified part of unspecified bronchus or lung; E78.5 Hyperlipidemia, unspecified; I10 Essential (primary) hypertension; J43.9 Emphysema, unspecified; Z90.49 Acquired absence of other specified parts of digestive tract; Z79.82 Long term (current) use of aspirin; Z79.899 Other long term (current) drug therapy; Z79.890 Hormone replacement therapy; Z79.84 Long term (current) use of oral hypoglycemic drugs; Z98.61 Coronary angioplasty status; Z87.01 Personal history of pneumonia (recurrent); Z90.710 Acquired absence of both cervix and uterus; Z87.891 Personal history of nicotine dependence
CPT/HCPCS: 99284

== ENCOUNTER 2023-12-19 07:33 | Outpatient (RCR) | payer OTHER, SELFPAY ==
[2023-12-19 07:50] VITALS: BP 103/69; PULSE 60; TEMP 36.3; O2SAT 98
[2023-12-19 08:07] LABS: Basophils Percent Auto 0.2 % (0.2-2.0); Eosinophils Percent Auto 0.2 % (0.9-7.0); Hemoglobin 11.6 g/dL (12.0-16.0); Immature Granulocytes Abs Auto 0.38 10^3/uL (0.00-0.03); Lymphocytes Absolute Auto 2.1 10^3/uL (1.2-3.8); Lymphocytes Percent Auto 11.2 % (20.5-60.0); Mean Corpuscular HGB Conc 31.4 g/dL (29.9-35.2); Mean Corpuscular Hemoglobin 29.5 pg (26.7-34.0); Mean Corpuscular Volume 94.1 fL (81.0-99.0); Mean Platelet Volume 9.2 fL (9.5-13.5); Monocytes Absolute Auto 1.1 10^3/uL (0.3-0.8); Monocytes Percent Auto 5.9 % (1.7-12.0); Neutrophils Percent Auto 80.5 % (43.0-75.0); Platelet Count 304 10^3/uL (150-450); Red Blood Count 3.93 10^6/uL (4.20-5.40); Red Cell Distribution Width 22.1 % (11.0-15.0); White Blood Count 18.6 10^3/uL (4.0-11.0)
[2023-12-19 08:26] LABS: Alanine Aminotransferase 13 U/L (14-59); Albumin Globulin Ratio 0.9; Albumin Level 3.3 g/dL (3.4-5.0); Alkaline Phosphatase 125 U/L (46-116); Anion Gap 14.3; Aspartate Amino Transferase 14 U/L (15-37); BUN Creatinine Ratio 20.2; Bilirubin Total 0.2 mg/dL (0.2-1.0); Calcium 8.9 mg/dL (8.5-10.1); Carbon Dioxide 25.7 mmol/L (21.0-32.0); Chloride 105 mmol/L (98-107); Estimated GFR (African America >60 (>=60); Estimated GFR (Non-African Ame >60 (>=60); Globulin 3.5 g/dL; Glucose 117 mg/dL (74-106); Sodium 141 mmol/L (136-145); Thyroid Stimulating Hormone 6.138 uIU/mL (0.358-3.740); Total Protein 6.8 g/dL (6.4-8.2)
[2023-12-19] MEDS: 0.9 % SODIUM CHLORIDE 250 ML 10 ML IV (08:30)
[2023-12-19 08:51] LABS: Free T4 0.79 ng/dL (0.76-1.46)
[2023-12-19] MEDS: DURVALUMAB IV (09:30)
[2023-12-19] MEDS: SODIUM CHLORIDE 0.9% IV (09:30)
[2023-12-19 10:40] VITALS: BP 94/57; PULSE 52; TEMP 36.4; O2SAT 97
[2023-12-19] MEDS: HEPARIN SODIUM (PORCINE) PF LOCK FLUSH 500 UNIT/5 ML SYRINGE IV (10:40)
--- NOTE | 2023-12-19 13:07 | PC.NURSE ---
0750: Pt. to [facility] amb. accompanied by sister. Portable O2 intact at 2L n/c. Weight obtained. Seated in recliner. O2 to wall unit at 2L n/c. Relays dyspnea with exertion. Relaxes after sitting for several minutes. VSS. Port to right chest wall already accessed from home health RN. Flushes easily with good blood return. Blood obtained for ordered labs. Breakfast tray ordered. Fluids provided. 0830: Dr. Rodriguez at bedside for scheduled visit. Lab results reviewed with Dheeraj Otto to proceed with treatment. Pharmacy notified. 0930: IV Imfinzi initiated at this time. Pt. ate breakfast without c/o n/v. Denies needs. 0940: Imfinzi completed without s&s of adverse reaction. Port flushed with saline and heparin flush. Port remains accessed per pt. request due to home health infusing antibiotic therapy later today. Pt. d/c'd amb. to home with sister.
== END 2023-12-26 23:59 | disposition home or self-care (01) ==
LOC: INF 07:33
PROVIDERS: PCP Internal Medicine; Visit Provider Internal Medicine Hematology & Oncology
DX: Z51.11 Encounter for antineoplastic chemotherapy (principal); C34.92 Malignant neoplasm of unspecified part of left bronchus or lung; D64.9 Anemia, unspecified; J44.9 Chronic obstructive pulmonary disease, unspecified; Z99.81 Dependence on supplemental oxygen; Z90.710 Acquired absence of both cervix and uterus; Z90.49 Acquired absence of other specified parts of digestive tract; Z87.891 Personal history of nicotine dependence; D69.59 Other secondary thrombocytopenia; T45.1X5A Adverse effect of antineoplastic and immunosuppressive drugs, initial encounter; C79.31 Secondary malignant neoplasm of brain
CPT/HCPCS: 36591; 80053; 83735; 84439; 84443; 85025; 96413; G0463; J9173

== ENCOUNTER 2023-12-31 13:41 | Emergency (ER) | payer OTHER, SELFPAY ==
[2023-12-31] VITALS (40 sets, daily range): BP systolic 117–166; BP diastolic 92–115; PULSE 77–113; TEMP 37; O2SAT 95–99; BMI 28.3
--- NOTE | 2023-12-31 13:48 | ECG_ITS ---
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
--- NOTE | 2023-12-31 13:48 | XR_ITS ---
The [address] [address] Patient Name: JEANMARIE ECHEVARRIA MRN: [id number] date: 1965 Sex: F Assigned Patient Location: ER Current Patient Location: ED.MAIN Accession/Order Number: [id number] Exam Date: 12/31/2023 13:55 Report Date: 12/31/2023 14:39 At the request of: ALLY SANTORO Procedure: XR chest 1V EXAM: XR chest 1V HISTORY: Chest pain COMPARISON: 03/14/2023 FINDINGS/IMPRESSION: 1. Lungs are clear 2. No pneumothorax. Mild to moderate left pleural effusion with adjacent basilar atelectasis. 3. Heart size and mediastinal contours are normal 4. No acute osseous abnormality 5. Right Mediport catheter in expected position. Electronically authenticated by: MAYNOR CONNELLY Date: 12/31/2023 14:39
--- NOTE | 2023-12-31 13:49 | ED.CHESTPAI1 ---
HPI - Chest Pain General Chief Complaint: Chest Pain Stated Complaint: CHEST PAIN Time Seen by Provider: 12/31/23 13:47 Source: patient Mode of arrival: ambulance Limitations: no limitations History of Present Illness HPI narrative: 58-year-old female presents for chest pain. She has been having it intermittently for 3 days and today was worse. She points to the middle part of her chest. No trauma or fever but she has been sweaty. She had an WI a year ago and has 2 or 3 stents according to the patient. She does not complain of back pain or complaints of shortness of breath to me. Related Data Home Medications ?Medication ?Instructions ?Recorded ?Confirmed aspirin 81 mg chewable tablet 81 mg PO DAILY 02/02/23 11/21/23 atorvastatin 80 mg tablet 80 mg PO .qhs 02/02/23 11/21/23 isosorbide mononitrate 30 mg 30 mg PO DAILY 02/02/23 11/21/23 tablet,extended release 24 hr nitroglycerin 0.4 mg sublingual 0.4 mg sublingual Q5M PRN chest 02/02/23 11/21/23 tablet pain omeprazole 20 mg capsule,delayed 20 mg PO DAILY 05/09/23 11/21/23 release bupropion HCl 150 mg 24 hr tablet, 150 mg PO DAILY 06/20/23 11/21/23 extended release ipratropium 0.5 mg-albuterol 3 mg 3 ml inhalation Q4H PRN shortness 11/21/23 11/21/23 (2.5 mg base)/3 mL nebulization of breath soln levothyroxine 50 mcg tablet 50 mcg PO DAILY 11/21/23 11/21/23 (Synthroid) magnesium 250 mg tablet 250 mg PO BID 11/21/23 11/21/23 metformin 500 mg tablet 500 mg PO BID 11/21/23 11/21/23 tiotropium 2.5 mcg-olodaterol 2.5 2 inh inhalation DAILY 11/21/23 11/21/23 mcg/actuation mist for inhalation (Stiolto Respimat) Previous Rx's ?Medication ?Instructions ?Recorded albuterol sulfate 90 mcg/actuation 2 inh inhalation Q4H PRN shortness 02/02/23 breath activated powder inhaler of breath #1 ea diltiazem HCl 240 mg 240 mg PO DAILY #30 caps 06/21/23 capsule,extended release 24 hr (Cardizem CD) metoprolol succinate 100 mg 100 mg PO QD #30 tabs 06/21/23 tablet,extended release 24 hr Allergies Allergy/AdvReac Type Severity Reaction Status Date / Time No Known Drug Allergies Allergy Verified 12/13/23 16:20 Review of Systems ROS Narrative A ten point review of systems is negative except as noted above. [facility] Medical History (Updated 12/31/23 @ 15:04 by Storm Mcdonald MD) Hypomagnesemia ?E83.42 - Hypomagnesemia (ICD-10) Acute hypokalemia ?E87.6 - Hypokalemia (ICD-10) Tachycardia ?R00.0 - Tachycardia, unspecified (ICD-10) Elevated troponin ?R79.89 - Other specified abnormal findings of blood chemistry (ICD-10) Pneumonia ?J18.9 - Pneumonia, unspecified organism (ICD-10) Bilateral pneumonia ?J18.9 - Pneumonia, unspecified organism (ICD-10) Lung cancer ?C34.90 - Malignant neoplasm of unspecified part of unspecified bronchus or lung (ICD-10) Tobacco abuse ?Z72.0 - Tobacco use (ICD-10) CAD (coronary artery disease) ?I25.10 - Atherosclerotic heart disease of [place] coronary artery without angina pectoris (ICD-10) IBS (irritable colon syndrome) ?K58.9 - Irritable bowel syndrome without diarrhea (ICD-10) Hernia ?K46.9 - Unspecified abdominal hernia without obstruction or gangrene (ICD-10) COPD (chronic obstructive pulmonary disease) ?J44.9 - Chronic obstructive pulmonary disease, unspecified (ICD-10) Hyperlipemia ?E78.5 - Hyperlipidemia, unspecified (ICD-10) HTN (hypertension) ?I10 - Essential (primary) hypertension (ICD-10) Emphysema lung ?J43.9 - Emphysema, unspecified (ICD-10) Surgical History H/O colectomy ?Z90.49 - Acquired absence of other specified parts of digestive tract (ICD-10) History of PTCA ?Z98.61 - Coronary angioplasty status (ICD-10) H/O: hysterectomy ?Z90.710 - Acquired absence of both cervix and uterus (ICD-10) Family History Mother Family history of CHF (congestive heart failure) Family history of diabetes mellitus Family history of hypertension Family history of myocardial infarction Social History Within the past year, how often did you have a drink containing alcohol: never Score interpretation: A score less than 3 is consistent with normal alcohol consumption. Smoking status: Former smoker Second hand tobacco smoke exposure: Yes Non-prescribed substance use: denies use Previous occupational history: Does not work Known occupational exposures/hazards: No Highest level of school completed/degree received: high school graduate Do you want help with school or training: No Are you now , , , , never or living with a partner: In a typical week, how many times do you talk on the telephone with family, friends, or neighbors: never How often do you get together with friends or relatives: never How often do you attend nondenominational or episcopal services: never Do you belong to any clubs or organizations such as nondenominational groups unions, [employer] or athletic groups, or school groups: no Total score: 1 Score interpretation: A score of less than or equal to 1 indicates the most socially isolated. Little interest or pleasure in doing things: several days Feeling down, depressed, or hopeless: several days Feel stressed/tense/nervous/anxious/difficulty sleeping: very much Life stressors: other Life stressor details: Due to disability, difficulty making decisions: No Do you think of yourself as: straight/heterosexual Gender Identity: female Exam Narrative Exam Narrative: Nurses note and vital signs reviewed and patient is not hypoxic. General: The patient appears uncomfortable and is in no respiratory distress Skin: Warm, dry, no pallor noted. There is no rash noted. Head: Normocephalic, atraumatic Eye: Normal conjunctiva, no drainage Ears, Nose, Mouth, and Throat: oral mucosa is moist. Nares patent. Cardiovascular: Regular Rate and Rhythm Respiratory: Patient is in no distress, no accessory muscle use, lungs are clear to auscultation, no wheezing, rales or rhonchi GI: Soft and nontender Musculoskeletal: The patient has no evidence of calf tenderness, symmetrical pulses noted bilaterally Neurological: A&O, normal speech Psychiatric: Cooperative Constitutional Vital Signs, click to edit/add: Last Vital Signs Pulse 95 H 12/31/23 14:10 Resp 22 H 12/31/23 14:10 BP 149/106 H 12/31/23 14:00 Pulse Ox 97 12/31/23 14:10 O2 Del Method Nasal Cannula 12/31/23 13:47 O2 Flow Rate 2 12/31/23 13:47 Course Vital Signs Vital signs: Vital Signs Pulse Rate 113 H 12/31/23 13:44 Respiratory Rate 25 H 12/31/23 13:44 Pulse Rate 95 H 12/31/23 14:10 Respiratory Rate 22 H 12/31/23 14:10 Blood Pressure 149/106 H 12/31/23 14:00 Pulse Oximetry 97 12/31/23 14:10 Oxygen Delivery Method Nasal Cannula 12/31/23 13:47 Oxygen Delivery Flow Rate 2 12/31/23 13:47 MDM - Chest Pain MDM Narrative Medical decision making narrative: EKG shows no ST segment elevation. Troponin is elevated at 96. She was given aspirin in the prehospital setting and was given nitroglycerin and morphine and IV heparin drip here. She was also given IV labetalol. I have spoken to cardiology at [facility] and he is requesting the patient be transferred there. We are making the arrangements. She is stable and agreeable for transfer. Differential Diagnosis Differential diagnosis: Likely pneumothorax, unstable angina pectoris, atypical chest pain, st elevation myocardial infarction, costochondritis and chest pain Lab Data Attestation: I reviewed the patient's lab results. Labs: Lab Results 12/31/23 Range/Units 13:50 WBC 31.0 H* (4.0-11.0) 10^3/uL RBC 5.61 H (4.20-5.40) 10^6/uL Hgb 17.1 H (12.0-16.0) g/dL Hct 50.8 H (36.0-48.0) % MCV 90.6 (81.0-99.0) fL MCH 30.5 (26.7-34.0) pg MCHC 33.7 (29.9-35.2) g/dL RDW 21.0 H (11.0-15.0) % Plt Count 240 (150-450) 10^3/uL MPV 9.5 (9.5-13.5) fL Seg Neuts % (Manual) 86.0 Band Neutrophils % 1.0 (0-5) % Lymphocytes % (Manual) 3.0 L (20.5-60.0) % Monocytes % (Manual) 10.0 (1.7-12.0) % Eosinophils % (Manual) 0.0 L (0.9-7.0) % Basophils % (Manual) 0.0 L (0.2-2.0) % Neutrophils # (Manual) 26.66 H (1.4-6.5) 10^3/uL Band Neutrophils # 0.3 (0.0-0.3) 10^3/uL Lymphocytes # (Manual) 0.93 L (1.20-3.80) 10^3/uL Monocytes # (Manual) 3.10 H (0.30-0.80) 10^3/uL Eosinophils # (Manual) 0.00 (0.00-0.70) 10^3/uL Basophils # (Manual) 0.00 (0.00-0.10) 10^3/uL PT 11.5 (9.0-11.6) sec INR 1.09 APTT 27.9 (22.3-36.2) sec D-Dimer 0.69 H* (<=0.59) mg/L FEU Sodium 132 L (136-145) mmol/L Potassium 4.5 (3.5-5.1) mmol/L Chloride 95 L (98-107) mmol/L Carbon Dioxide 23.1 (21.0-32.0) mmol/L Anion Gap 18.4 BUN 64.0 H (7.0-18.0) mg/dL Creatinine 1.64 H (0.55-1.02) mg/dL Est GFR ( Amer) 39 L (>=60) Est GFR (Non-Af Amer) 32 L (>=60) BUN/Creatinine Ratio 39.0 Glucose 183 H (74-106) mg/dL Calcium 9.4 (8.5-10.1) mg/dL Troponin I High Sens 96.3 H* (4.0-51.3) pg/mL ECG Data Attestation: I personally reviewed and interpreted this ECG as follows: (EKG on my interpretation shows sinus tachycardia with a rate of 112 and flipped T waves laterally.) Heart Score History: Highly Suspicious ECG: Sign. ST Depression Age: >45-<65 years Risk Factors: >3 Risk Factors/ HX of CAD:2 Troponin: <3X Normal Limit Total Heart Score Recommendations & Risks:: 8 Critical Care Time Critical Care Time Critical Care Time: Yes Total Critical Care Time: 45 Attestation: Due to the high probability of sudden and clinically significant deterioration in the patient's condition he/she required the highest level of my preparedness to intervene urgently I provided critical care time including documentation time, medication orders and management, reevaluation, vital sign assessment, ordering and reviewing of lab tests, ordering and reviewing of x-ray studies, and admission orders. Aggregate critical care time is 45 minutes including only time during which I was engaged in work directly related to his/her care and did not include time spent treating other patients simultaneously. Discharge Plan Discharge Chief Complaint: Chest Pain Clinical Impression: Non-ST elevation WI (NSTEMI) Patient Disposition: [facility] Time of Disposition Decision: 15:04 Discharge Location: [facility] Condition: Fair Mode of Transportation: EMS
[2023-12-31 14:04] LABS: Hematocrit 50.8 % (36.0-48.0); Hemoglobin 17.1 g/dL (12.0-16.0); Mean Corpuscular HGB Conc 33.7 g/dL (29.9-35.2); Mean Corpuscular Hemoglobin 30.5 pg (26.7-34.0); Mean Corpuscular Volume 90.6 fL (81.0-99.0); Mean Platelet Volume 9.5 fL (9.5-13.5); Platelet Count 240 10^3/uL (150-450); Red Blood Count 5.61 10^6/uL (4.20-5.40)
[2023-12-31 14:18] LABS: Anion Gap 18.4; Calcium 9.4 mg/dL (8.5-10.1); Carbon Dioxide 23.1 mmol/L (21.0-32.0); Chloride 95 mmol/L (98-107); Estimated GFR (African America 39 (>=60); Estimated GFR (Non-African Ame 32 (>=60); Glucose 183 mg/dL (74-106); Potassium 4.5 mmol/L (3.5-5.1); Sodium 132 mmol/L (136-145)
[2023-12-31 14:20] LABS: D Dimer 0.69 mg/L FEU (<=0.59); Troponin I High Sensitivity 96.3 pg/mL (4.0-51.3)
[2023-12-31 14:25] LABS: Band Neutrophils Absolute 0.3 10^3/uL (0.0-0.3); Lymphocytes Absolute Manual 0.93 10^3/uL (1.20-3.80); Segmented Neut Absolute Manual 26.66 10^3/uL (1.4-6.5)
[2023-12-31 14:43] LABS: INR 1.09; Partial Thromboplastin Time 27.9 sec (22.3-36.2); Prothrombin Time 11.5 sec (9.0-11.6)
[2023-12-31] MEDS: HEPARIN SODIUM,PORCINE/D5W 25,000 UNIT/500 ML IV.SOLN 12 UNIT IV (14:53)
[2023-12-31] MEDS: HEPARIN SODIUM (PORCINE) 5,000 UNIT/ML VIAL 3200 UNIT IV (14:53)
[2023-12-31] MEDS: METOPROLOL TARTRATE 5 MG/5 ML VIAL IVP (14:55)
[2023-12-31] MEDS: MORPHINE SULFATE 4 MG/ML VIAL IV ×2 (14:55→16:24)
== END 2023-12-31 17:28 | disposition short-term general hospital (02) ==
PROVIDERS: Emergency Provider Emergency Medicine; PCP Internal Medicine
DX: I21.4 Non-ST elevation (NSTEMI) myocardial infarction (principal); I25.10 Atherosclerotic heart disease of native coronary artery without angina pectoris; K58.9 Irritable bowel syndrome, unspecified; E78.5 Hyperlipidemia, unspecified; I10 Essential (primary) hypertension; J43.9 Emphysema, unspecified; Z90.49 Acquired absence of other specified parts of digestive tract; Z98.61 Coronary angioplasty status; I25.2 Old myocardial infarction; Z87.01 Personal history of pneumonia (recurrent); Z79.82 Long term (current) use of aspirin; Z79.899 Other long term (current) drug therapy; Z79.84 Long term (current) use of oral hypoglycemic drugs; Z85.118 Personal history of other malignant neoplasm of bronchus and lung; Z90.710 Acquired absence of both cervix and uterus; Z87.891 Personal history of nicotine dependence
CPT/HCPCS: 36415; 36591; 71045; 80048; 84484; 85007; 85027; 85378; 85610; 85730; 93005; 96374; 96375; 96376; 99285

== ENCOUNTER 2024-01-19 18:21 | Emergency (ER) | payer OTHER, SELFPAY ==
[2024-01-19] VITALS (29 sets, daily range): BP systolic 125–136; BP diastolic 92–107; PULSE 104–123; TEMP 36.2; O2SAT 92–97
--- NOTE | 2024-01-19 18:25 | ECG_ITS ---
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
--- NOTE | 2024-01-19 18:31 | CT_ITS ---
[address] [address] Patient Name: JEANMARIE ECHEVARRIA MRN: [id number] date: 1965 Sex: F Assigned Patient Location: ED.MAIN Current Patient Location: Accession/Order Number: [id number] Exam Date: 01/19/2024 19:06 Report Date: 01/19/2024 20:04 At the request of: MIN DE LA CRUZ Procedure: CT head/brain wo con EXAM: Noncontrast head CT. CT scan of the abdomen without IV iodinated contrast. Dose reduction technique used: Automated exposure control and/or adjustment of the mA and/or kV according to patient size and/or use of iterative reconstruction technique. REASON FOR EXAM: Headache COMPARISON: CT scan dated 10/16/2023 FINDINGS: HEAD: No intracranial hemorrhage, mass effect, midline shift, fractures or evidence of acute ischemic infarct. No hydrocephalus. Minimal small vessel gliosis. Paranasal sinuses and mastoid air cells are clear. ABDOMEN/PELVIS: Prominent rectal and colonic fecal loading. Bilateral common and external iliac artery stenoses. Small bilateral renal cysts. Hysterectomy. Diffuse hepatic steatosis. Chronic T10 superior endplate compression fracture with mild height loss. Small bladder diverticulum on the right. Elevation of the left hemidiaphragm. Left lower lobe consolidation and/or atelectasis. Small focal opacity partially visualized in the right midlung. No renal, ureteral or bladder calculi. No hydronephrosis. Normal appendix. No free fluid in the abdomen or pelvis. No free intraperitoneal air. No dilated or thickened loops of small bowel or colon. Liver, pancreas, spleen, bilateral kidneys, and bilateral adrenal glands are otherwise unremarkable within the limitations of noncontrast CT. No lymphadenopathy in the abdomen or pelvis. Remainder unremarkable. CT/CT head/brain wo con IMPRESSION: 1. No acute intracranial abnormalities. 2. Atelectasis and/or consolidation in the left lower lobe, correlate clinically. 3. New focal right midlung opacity may be infectious/inflammatory, recommend follow-up chest CT in 3 months. 4. Prominent rectal and colonic fecal loading may indicate constipation, correlate clinically. 5. Diffuse hepatic steatosis. Electronically authenticated by: RONALD HUGGINS Date: 01/19/2024 20:04
--- NOTE | 2024-01-19 18:31 | CT_ITS ---
[address] [address] Patient Name: JEANMARIE ECHEVARRIA MRN: [id number] date: 1965 Sex: F Assigned Patient Location: ER Current Patient Location: Accession/Order Number: [id number] Exam Date: 01/19/2024 19:06 Report Date: 01/19/2024 20:04 At the request of: MIN DE LA CRUZ Procedure: CT abdomen pelvis wo con EXAM: Noncontrast head CT. CT scan of the abdomen without IV iodinated contrast. Dose reduction technique used: Automated exposure control and/or adjustment of the mA and/or kV according to patient size and/or use of iterative reconstruction technique. REASON FOR EXAM: Headache COMPARISON: CT scan dated 10/16/2023 FINDINGS: HEAD: No intracranial hemorrhage, mass effect, midline shift, fractures or evidence of acute ischemic infarct. No hydrocephalus. Minimal small vessel gliosis. Paranasal sinuses and mastoid air cells are clear. ABDOMEN/PELVIS: Prominent rectal and colonic fecal loading. Bilateral common and external iliac artery stenoses. Small bilateral renal cysts. Hysterectomy. Diffuse hepatic steatosis. Chronic T10 superior endplate compression fracture with mild height loss. Small bladder diverticulum on the right. Elevation of the left hemidiaphragm. Left lower lobe consolidation and/or atelectasis. Small focal opacity partially visualized in the right midlung. No renal, ureteral or bladder calculi. No hydronephrosis. Normal appendix. No free fluid in the abdomen or pelvis. No free intraperitoneal air. No dilated or thickened loops of small bowel or colon. Liver, pancreas, spleen, bilateral kidneys, and bilateral adrenal glands are otherwise unremarkable within the limitations of noncontrast CT. No lymphadenopathy in the abdomen or pelvis. Remainder unremarkable. CT/CT abdomen pelvis wo con IMPRESSION: 1. No acute intracranial abnormalities. 2. Atelectasis and/or consolidation in the left lower lobe, correlate clinically. 3. New focal right midlung opacity may be infectious/inflammatory, recommend follow-up chest CT in 3 months. 4. Prominent rectal and colonic fecal loading may indicate constipation, correlate clinically. 5. Diffuse hepatic steatosis. Electronically authenticated by: RONALD HUGGINS Date: 01/19/2024 20:04
--- NOTE | 2024-01-19 18:35 | ED_ITS ---
HPI HPI - General Adult General Chief complaint: Headache Stated complaint: HEADACHE Time Seen by Provider: 01/19/24 18:26 Source: patient Mode of arrival: ambulance Limitations: no limitations History of Present Illness HPI narrative: Patient is a 58-year-old female well-known to this emergency department who presents by EMS from the [facility] where she is currently [facility] for evaluation of a headache. Patient has a history of lung cancer with metastasis, superior vena cava syndrome, non-STEMI and chronic dyspnea. She recently received a gamma knife procedure for brain metastasis. She is still a [facility] detention reported to this facility that the patient was informed today that she may need to consider hospice care. She had an anxiety attack earlier today and was given anxiety medications. According to nursing staff, patient called an ambulance for herself to come to the emergency department to be evaluated for headache, diffuse abdominal pain and not feeling well. She has not had any chest pain, vomiting or fevers. She denies diarrhea. Related Data Home Medications ?Medication ?Instructions ?Recorded ?Confirmed aspirin 81 mg chewable tablet 81 mg PO DAILY 02/02/23 01/19/24 atorvastatin 80 mg tablet 80 mg PO .qhs 02/02/23 01/19/24 isosorbide mononitrate 30 mg 30 mg PO DAILY 02/02/23 01/19/24 tablet,extended release 24 hr omeprazole 20 mg capsule,delayed 20 mg PO DAILY 05/09/23 12/31/23 release bupropion HCl 150 mg 24 hr tablet, 150 mg PO DAILY 06/20/23 01/19/24 extended release ipratropium 0.5 mg-albuterol 3 mg 3 ml inhalation Q4H PRN shortness 11/21/23 01/19/24 (2.5 mg base)/3 mL nebulization of breath soln metformin 500 mg tablet 500 mg PO BID 11/21/23 01/19/24 acetaminophen 325 mg tablet 650 mg PO Q6H PRN fever or pain 01/19/24 01/19/24 (Athenol) apixaban 5 mg tablet (Eliquis) 5 mg PO BID 01/19/24 01/19/24 bupropion HCl 150 mg tablet,12 hr 75 mg PO DAILY 01/19/24 01/19/24 sustained-release (Wellbutrin SR) bupropion HCl 75 mg tablet 75 mg PO DAILY 01/19/24 01/19/24 cholecalciferol (vitamin D3) 1,250 1,250 mcg PO .EVERY WED 01/19/24 01/19/24 mcg (50,000 unit) capsule dexamethasone 1 mg tablet 4 mg PO Q24H 01/19/24 01/19/24 dexamethasone 2 mg tablet 2 mg PO Q24H 01/19/24 01/19/24 famotidine 20 mg tablet (Pepcid AC) 20 mg PO DAILY 01/19/24 01/19/24 levetiracetam 500 mg tablet 500 mg PO Q12H 01/19/24 01/19/24 levothyroxine 75 mcg tablet 75 mcg PO DAILY 01/19/24 01/19/24 (Levo-T) lorazepam 0.5 mg tablet 0.5 mg PO Q12H PRN anxiety 01/19/24 01/19/24 magnesium oxide 400 mg PO DAILY 01/19/24 01/19/24 metoprolol tartrate 25 mg tablet 25 mg PO DAILY 01/19/24 01/19/24 oxycodone-acetaminophen 5 mg-325 1 tab PO Q8H PRN pain 01/19/24 01/19/24 mg tablet scopolamine base 1 mg over 3 days 1 patch transdermal Q72H 01/19/24 01/19/24 transdermal patch umeclidinium 62.5 mcg-vilanterol 1 inh inhalation DAILY 01/19/24 01/19/24 25 mcg/actuation powdr for inhalation (Anoro Ellipta) Previous Rx's ?Medication ?Instructions ?Recorded diltiazem HCl 240 mg 240 mg PO DAILY #30 caps 06/21/23 capsule,extended release 24 hr (Cardizem CD) Allergies Allergy/AdvReac Type Severity Reaction Status Date / Time No Known Drug Allergies Allergy Verified 12/13/23 16:20 Opioid HPI Opioid Management Most Recent Opioid Data: Last Pain Scale 9 01/19/24 19:29 Last OCT Pain Assessment 01/19/24 19:29 Review of Systems ROS Constitutional Denies: fever or chills Ears, nose, mouth, and throat Denies: throat pain or nasal congestion Cardiovascular Denies: chest pain Respiratory Reports: shortness of breath Gastrointestinal Reports: abdominal pain; Denies: nausea, vomiting or diarrhea Musculoskeletal Denies: back pain or neck pain Integumentary/Breast Denies: rash Neurological Reports: headache and weakness in extremities Hematologic/Lymphatic Denies: easy bruising or easy bleeding PFSH PFS Medical History (Updated 01/19/24 @ 21:12 by CLEMENT Mckeon) Hypomagnesemia ?E83.42 - Hypomagnesemia (ICD-10) Acute hypokalemia ?E87.6 - Hypokalemia (ICD-10) Tachycardia ?R00.0 - Tachycardia, unspecified (ICD-10) Elevated troponin ?R79.89 - Other specified abnormal findings of blood chemistry (ICD-10) Pneumonia ?J18.9 - Pneumonia, unspecified organism (ICD-10) Bilateral pneumonia ?J18.9 - Pneumonia, unspecified organism (ICD-10) Lung cancer ?C34.90 - Malignant neoplasm of unspecified part of unspecified bronchus or lung (ICD-10) Tobacco abuse ?Z72.0 - Tobacco use (ICD-10) CAD (coronary artery disease) ?I25.10 - Atherosclerotic heart disease of [place] coronary artery without angina pectoris (ICD-10) IBS (irritable colon syndrome) ?K58.9 - Irritable bowel syndrome without diarrhea (ICD-10) Hernia ?K46.9 - Unspecified abdominal hernia without obstruction or gangrene (ICD- 10) COPD (chronic obstructive pulmonary disease) ?J44.9 - Chronic obstructive pulmonary disease, unspecified (ICD-10) Hyperlipemia ?E78.5 - Hyperlipidemia, unspecified (ICD-10) HTN (hypertension) ?I10 - Essential (primary) hypertension (ICD-10) Emphysema lung ?J43.9 - Emphysema, unspecified (ICD-10) Surgical History H/O colectomy ?Z90.49 - Acquired absence of other specified parts of digestive tract (ICD- 10) History of PTCA ?Z98.61 - Coronary angioplasty status (ICD-10) H/O: hysterectomy ?Z90.710 - Acquired absence of both cervix and uterus (ICD-10) Family History Mother Family history of CHF (congestive heart failure) Family history of diabetes mellitus Family history of hypertension Family history of myocardial infarction Social History Within the past year, how often did you have a drink containing alcohol: never Score interpretation: A score less than 3 is consistent with normal alcohol consumption. Smoking status: Former smoker Second hand tobacco smoke exposure: Yes Non-prescribed substance use: denies use Previous occupational history: Does not work Known occupational exposures/hazards: No Highest level of school completed/degree received: high school graduate Do you want help with school or training: No Are you now , , , , never or living with a partner: In a typical week, how many times do you talk on the telephone with family, friends, or neighbors: never How often do you get together with friends or relatives: never How often do you attend buddhist or oriental orthodox services: never Do you belong to any clubs or organizations such as buddhist groups unions, [employer] or athletic groups, or school groups: no Total score: 1 Score interpretation: A score of less than or equal to 1 indicates the most socially isolated. Little interest or pleasure in doing things: several days Feeling down, depressed, or hopeless: several days Feel stressed/tense/nervous/anxious/difficulty sleeping: very much Life stressors: other Life stressor details: Due to disability, difficulty making decisions: No Do you think of yourself as: straight/heterosexual Gender Identity: female Exam Narrative Exam Narrative: Gen.: Answers questions but is drowsy, Ill-appearing Head: Normocephalic, atraumatic ENT: Moist mucous membranes; Facial edema noted with no swelling of the lips or tongue Respiratory: No respiratory distress, lungs clear bilaterally; No coughing or wheezing Cardio: Regular rate and rhythm Gastrointestinal: Abdomen is soft, nondistended and Diffusely mildly tender to palpation Extremities: Moves extremities equally Psych: Normal mood and affect Neuro: No focal neuro deficit Skin: Warm, dry, intact Constitutional Vital Signs, click to edit/add: Last Vital Signs Pulse 109 H 01/19/24 20:40 Resp 19 01/19/24 20:40 BP 136/99 H 01/19/24 19:45 Pulse Ox 95 01/19/24 20:40 O2 Del Method Nasal Cannula 01/19/24 18:24 Course Vital Signs Vital signs: Vital Signs Pulse Rate 114 H 01/19/24 18:24 Respiratory Rate 18 01/19/24 18:24 Blood Pressure 130/95 H 01/19/24 18:24 Pulse Oximetry 96 01/19/24 18:24 Oxygen Delivery Method Nasal Cannula 01/19/24 18:24 Pulse Rate 109 H 01/19/24 20:40 Respiratory Rate 19 01/19/24 20:40 Blood Pressure 136/99 H 01/19/24 19:45 Pulse Oximetry 95 01/19/24 20:40 Oxygen Delivery Method Nasal Cannula 01/19/24 18:24 Medical Decision Making MDM Narrative Medical decision making narrative: Man on arrival to the emergency department, patient was sent for CTs of the head and CT of the abdomen and pelvis as well as a chest x-ray. Her tachycardia improved with IV fluids, Dilaudid and Zofran and she is resting more comfortably on reevaluation. Lab studies show continued leukocytosis. Patient with stable kidney function, her troponin is elevated. Most recent troponin at this facility was 92 and today the patient's troponin is 286. She does have inferior T wave changes from previous EKG. She does not have active chest pain in the ER. She had multiple bowel movements with hard stool, constipation noted on CT of the abdomen and pelvis. Radiologist also notes a new area in the right midlung which may be infectious versus inflammatory. Based on tachycardia, leukocytosis, area of potential infection, the patient was treated for sepsis with blood cultures ordered. Lactic acid is mildly elevated but procalcitonin is normal. Zosyn and vancomycin given for antibiotic coverage. Patient sisters at bedside, I discussed CT, x-ray and lab results with the patient and her sister. Patient is currently a full code and wishes to remain so. Patient will not be able to stay at this facility with elevated troponin and EKG changes. She will be transferred to [facility]. She was accepted by the hospitalist Dr. Claire. Stable at this time. Critical care time 35 min Medical Records Medical records reviewed: Yes I reviewed the patient's medical records Lab Data Lab results reviewed: Yes I reviewed the patient's lab results Labs: Lab Results 01/19/24 01/19/24 01/19/24 Range/Units 18:37 18:46 18:50 WBC 23.8 H (4.0-11.0) 10^3/uL RBC 4.51 (4.20-5.40) 10^6/uL Hgb 14.2 (12.0-16.0) g/dL Hct 41.1 (36.0-48.0) % MCV 91.1 (81.0-99.0) fL MCH 31.5 (26.7-34.0) pg MCHC 34.5 (29.9-35.2) g/dL RDW 19.1 H (11.0-15.0) % Plt Count 143 L (150-450) 10^3/uL MPV 10.9 (9.5-13.5) fL Seg Neuts % (Manual) 95.0 Lymphocytes % (Manual) 0.0 L (20.5-60.0) % Atypical Lymphs % (Man) 5.0 % Monocytes % (Manual) 1.0 L (1.7-12.0) % Eosinophils % (Manual) 0.0 L (0.9-7.0) % Basophils % (Manual) 0.0 L (0.2-2.0) % Neutrophils # (Manual) 22.61 H (1.4-6.5) 10^3/uL Lymphocytes # (Manual) 0.00 L (1.20-3.80) 10^3/uL Abs Atypical Lymphs Man 1.19 Monocytes # (Manual) 0.23 L (0.30-0.80) 10^3/uL Eosinophils # (Manual) 0.00 (0.00-0.70) 10^3/uL Basophils # (Manual) 0.00 (0.00-0.10) 10^3/uL Nucleated RBCs 4 PT 10.3 (9.0-11.6) sec INR 0.97 VBG pH 7.494 H (7.330-7.430) VBG pCO2 37.0 L (40.0-52.0) mmHg Sodium 135 L (136-145) mmol/L Potassium 4.6 (3.5-5.1) mmol/L Chloride 98 (98-107) mmol/L Carbon Dioxide 26.6 (21.0-32.0) mmol/L Anion Gap 15.0 BUN 38.0 H (7.0-18.0) mg/dL Creatinine 0.77 (0.55-1.02) mg/dL Est GFR ( Amer) >60 (>=60) Est GFR (Non-Af Amer) >60 (>=60) BUN/Creatinine Ratio 49.4 Glucose 184 H (74-106) mg/dL Lactate 2.3 H* (0.4-2.0) mmol/L Calcium 9.3 (8.5-10.1) mg/dL Magnesium 2.2 (1.8-2.4) mg/dL Total Bilirubin 0.6 (0.2-1.0) mg/dL AST 50 H (15-37) U/L ALT 58 (14-59) U/L Alkaline Phosphatase 140 H (46-116) U/L Troponin I High Sens 286.1 H* (4.0-51.3) pg/mL NT-Pro-B Natriuret Pep 9766.0 H* (<=900.0) pg/mL Total Protein 6.7 (6.4-8.2) g/dL Albumin 3.1 L (3.4-5.0) g/dL Globulin 3.6 g/dL Albumin/Globulin Ratio 0.9 Lipase 18.0 (16.0-77.0) U/L Procalcitonin 0.08 (0.00-0.50) ng/mL Urine Color Yellow (YELLOW) Urine Clarity Clear (CLEAR) Urine pH 6.0 (5.0-9.0) Ur Specific [place] 1.025 (1.005-1.025) Urine Protein 100 A (NEG/TRACE) mg/dL Urine Glucose (UA) Negative (NEGATIVE) mg/dL Urine Ketones Trace A (NEGATIVE) mg/dL Urine Occult Blood Moderate A (NEGATIVE) Urine Nitrite Negative (NEGATIVE) Urine Bilirubin Negative (NEGATIVE) Urine Urobilinogen 0.2 (0.2-1.0) EU/dL Ur Leukocyte Esterase Negative (NEGATIVE) Urine RBC 2-5 A (0-2) #/HPF Urine WBC 2-5 A (NONE SEEN) #/HPF Ur Squamous Epith Cells Few A (NONE/RARE) #/LPF Urine Crystals Seen A (None Seen) #/HPF Amorphous Sediment Moderate Urine Bacteria Small A (NONE SEEN) #/HPF Urine Casts Seen A (NONE SEEN) #/LPF WBC Casts Rare Urine Mucus Moderate A (NONE SEEN) Ur Culture Indicated? Yes Imaging Data CT scan - head: Attestation: I have reviewed the pertinent imaging results. Radiologist's impression: ITS Impressions Abdomen/Pelvis CT 01/19/24 18:31 IMPRESSION: 1. No acute intracranial abnormalities. 2. Atelectasis and/or consolidation in the left lower lobe, correlate clinically. 3. New focal right midlung opacity may be infectious/inflammatory, recommend follow-up chest CT in 3 months. 4. Prominent rectal and colonic fecal loading may indicate constipation, correlate clinically. 5. Diffuse hepatic steatosis. Electronically authenticated by: RONALD HUGGINS Date: 01/19/2024 20:[address] 01/19/24 18:31 IMPRESSION: 1. No acute intracranial abnormalities. 2. Atelectasis and/or consolidation in the left lower lobe, correlate clinically. 3. New focal right midlung opacity may be infectious/inflammatory, recommend follow-up chest CT in 3 months. 4. Prominent rectal and colonic fecal loading may indicate constipation, correlate clinically. 5. Diffuse hepatic steatosis. Electronically authenticated by: RONALD HUGGINS Date: 01/19/2024 20:04 Chest X-Ray 01/19/24 19:36 IMPRESSION: Probable small amount of left basilar atelectasis. Elevation of the left hemidiaphragm. Right IJ approach port with tip in the low SVC. Remainder of the chest is unremarkable. Electronically authenticated by: RONALD HUGGINS Date: 01/19/2024 20:44 ECG Data Attestation: I personally reviewed and interpreted this ECG as follows: (Sinus tachycardia at a rate of 113, inferior T wave changes and ST depression which is new from 01/01/2024. No acute ST elevation. No ectopy. EKG reviewed by attending physician and compared to EKG from 01/01/2024.) Discharge Plan Discharge Chief Complaint: Headache Clinical Impression: Right middle lobe pneumonia, Headache, Sepsis, Elevated troponin, Acute electrocardiogram changes, Weakness, Constipation Patient Disposition: [facility] Time of Disposition Decision: 21:11 Discharge Location: [facility] Condition: Good Prescriptions / Home Meds: No Action omeprazole 20 mg capsule,delayed release(DR/EC) 20 mg PO DAILY metformin 500 mg tablet 500 mg PO BID Stiolto Respimat 2.5-2.5 mcg/actuation mist 2 inh inhalation DAILY ipratropium-albuterol 0.5 mg-3 mg(2.5 mg base)/3 mL solution for nebulization 3 ml inhalation Q4H PRN (Reason: shortness of breath) aspirin 81 mg tablet,chewable 81 mg PO DAILY atorvastatin 80 mg tablet 80 mg PO .qhs isosorbide mononitrate 30 mg tablet extended release 24 hr 30 mg PO DAILY nitroglycerin 0.4 mg tablet, sublingual 0.4 mg sublingual Q5M PRN (Reason: chest pain) albuterol sulfate 90 mcg/actuation aerosol powdr breath activated 2 inh inhalation Q4H PRN (Reason: shortness of breath) Qty: 1 0RF bupropion HCl 150 mg tablet extended release 24 hr 150 mg PO DAILY diltiazem HCl [Cardizem CD] 240 mg capsule,extended release 24hr 240 mg PO DAILY Qty: 30 11RF acetaminophen [Athenol] 325 mg tablet 650 mg PO Q6H PRN (Reason: fever or pain) Anoro Ellipta 62.5-25 mcg/actuation blister with device 1 inh inhalation DAILY bupropion HCl 75 mg tablet 75 mg PO DAILY cholecalciferol (vitamin D3) 1,250 mcg (50,000 unit) capsule 1,250 mcg PO .EVERY MON dexamethasone 1 mg tablet 4 mg PO Q24H Rx Instructions: FOR 3 DAYS WHILE CHEMO THERAPY dexamethasone 2 mg tablet 2 mg PO Q24H Rx Instructions: FOR 3 DAYS WHILE ON CHEMO Eliquis 5 mg tablet 5 mg PO BID famotidine [Pepcid AC] 20 mg tablet 20 mg PO DAILY Rx Instructions: FOR 6 DAYS IN CONJUNCTION WITH DEXAMETHASONE levetiracetam 500 mg tablet 500 mg PO Q12H levothyroxine [Levo-T] 75 mcg tablet 75 mcg PO DAILY lorazepam 0.5 mg tablet 0.5 mg PO Q12H PRN (Reason: anxiety) magnesium oxide 400 mg magnesium capsule 400 mg PO DAILY metoprolol tartrate 25 mg tablet 25 mg PO DAILY Print Language: Italian Referrals: Shaikh Morfin MD [Primary Care Provider] - 1 week
[2024-01-19 18:56] LABS: Hematocrit 41.1 % (36.0-48.0); Hemoglobin 14.2 g/dL (12.0-16.0); Mean Corpuscular HGB Conc 34.5 g/dL (29.9-35.2); Mean Corpuscular Hemoglobin 31.5 pg (26.7-34.0); Mean Corpuscular Volume 91.1 fL (81.0-99.0); Mean Platelet Volume 10.9 fL (9.5-13.5); Platelet Count 143 10^3/uL (150-450); Red Blood Count 4.51 10^6/uL (4.20-5.40); Red Cell Distribution Width 19.1 % (11.0-15.0); White Blood Count 23.8 10^3/uL (4.0-11.0)
[2024-01-19 19:02] LABS: pH VBG 7.494 (7.330-7.430)
[2024-01-19 19:10] LABS: Bilirubin Urine NEGATIVE (NEGATIVE); Blood Urine MODERATE (NEGATIVE); Clarity Urine CLEAR (CLEAR); Color Urine YELLOW (YELLOW); Glucose Urine UA NEGATIVE (NEGATIVE); Ketones Urine TRACE mg/dL (NEGATIVE); Leukocyte Esterase Urine NEGATIVE (NEGATIVE); Nitrite Urine NEGATIVE (NEGATIVE); Protein Urine 100 mg/dL (NEG/TRACE); Specific Gravity Urine 1.025 (1.005-1.025); Urobilinogen Urine 0.2 EU/dL (0.2-1.0)
[2024-01-19 19:16] LABS: Urine Microscopic Indicated YES
[2024-01-19 19:19] LABS: Amorphous Sediment Urine MODERATE; Bacteria Urine SMALL #/HPF (NONE SEEN); Cast Seen? SEEN #/LPF (NONE SEEN); Crystals Seen? Seen #/HPF (None Seen); Mucus Urine MODERATE (NONE SEEN); Squamous Epithelial Cell Urine FEW #/LPF (NONE/RARE); Urine Culture Indicated YES; White Blood Cell Casts Urine RARE
[2024-01-19 19:23] LABS: INR 0.97; Prothrombin Time 10.3 sec (9.0-11.6)
[2024-01-19 19:25] LABS: Atypical Lymphocytes Abs Man 1.19; Monocytes Absolute Manual 0.23 10^3/uL (0.30-0.80); Nucleated Red Blood Cells 4; Segmented Neut Absolute Manual 22.61 10^3/uL (1.4-6.5)
[2024-01-19] MEDS: HYDROMORPHONE HCL 0.5 MG/0.5 ML SYRINGE IVP (19:29)
[2024-01-19] MEDS: ONDANSETRON PF 4 MG/2 ML VIAL IV (19:29)
[2024-01-19 19:30] LABS: PROCALCITONIN 0.08 ng/mL (0.00-0.50)
[2024-01-19] MEDS: 0.9 % SODIUM CHLORIDE 1,000 ML 1000 ML IV (19:30)
[2024-01-19 19:32] LABS: Alanine Aminotransferase 58 U/L (14-59); Albumin Globulin Ratio 0.9; Albumin Level 3.1 g/dL (3.4-5.0); Alkaline Phosphatase 140 U/L (46-116); Aspartate Amino Transferase 50 U/L (15-37); BUN Creatinine Ratio 49.4; Bilirubin Total 0.6 mg/dL (0.2-1.0); Calcium 9.3 mg/dL (8.5-10.1); Carbon Dioxide 26.6 mmol/L (21.0-32.0); Chloride 98 mmol/L (98-107); Estimated GFR (African America >60 (>=60); Estimated GFR (Non-African Ame >60 (>=60); Globulin 3.6 g/dL; Glucose 184 mg/dL (74-106); Magnesium 2.2 mg/dL (1.8-2.4); Potassium 4.6 mmol/L (3.5-5.1); Sodium 135 mmol/L (136-145); Total Protein 6.7 g/dL (6.4-8.2)
[2024-01-19 19:35] LABS: Lactate/Lactic Acid 2.3 mmol/L (0.4-2.0); Troponin I High Sensitivity 286.1 pg/mL (4.0-51.3)
--- NOTE | 2024-01-19 19:36 | XR_ITS ---
The [address] [address] Patient Name: JEANMARIE ECHEVARRIA MRN: [id number] date: 1965 Sex: F Assigned Patient Location: ER Current Patient Location: ER Accession/Order Number: [id number] Exam Date: 01/19/2024 19:48 Report Date: 01/19/2024 20:44 At the request of: MIN DE LA CRUZ Procedure: XR chest 1V Exam: Radiographs: XR chest 1V Reason for exam: Elevated troponin Comparison: Chest x-ray dated 12/31/2023 XR/XR chest 1V IMPRESSION: Probable small amount of left basilar atelectasis. Elevation of the left hemidiaphragm. Right IJ approach port with tip in the low SVC. Remainder of the chest is unremarkable. Electronically authenticated by: RONALD HUGGINS Date: 01/19/2024 20:44
[2024-01-19] MEDS: VANCOMYCIN HCL 1,000 MG in 0.9 % SODIUM CHLORIDE 250 ML 250 MG IV (20:33)
[2024-01-19 21:47] LABS: Lactate/Lactic Acid 1.2 mmol/L (0.4-2.0)
[2024-01-19 21:48] LABS: Troponin I High Sensitivity 287.3 pg/mL (4.0-51.3)
[2024-01-19] MEDS: PIPERACILLIN SODIUM/TAZOBACTAM 3.375 GM in 0.9 % SODIUM CHLORIDE 50 ML IV (21:55)
== END 2024-01-19 22:21 | disposition short-term general hospital (02) ==
PROVIDERS: Physician Assistant; Emergency Provider Internal Medicine; PCP Internal Medicine
DX: A41.9 Sepsis, unspecified organism (principal); J18.9 Pneumonia, unspecified organism; R51.9 Headache, unspecified; R79.89 Other specified abnormal findings of blood chemistry; R94.31 Abnormal electrocardiogram [ECG] [EKG]; R53.1 Weakness; K59.00 Constipation, unspecified; C34.90 Malignant neoplasm of unspecified part of unspecified bronchus or lung; C79.31 Secondary malignant neoplasm of brain; I25.2 Old myocardial infarction; R06.00 Dyspnea, unspecified; I87.1 Compression of vein; Z87.891 Personal history of nicotine dependence
CPT/HCPCS: 36415; 36591; 70450; 71045; 74176; 80053; 81001; 82800; 83605; 83690; 83735; 83880; 84145; 84484; 85007; 85027; 85610; 87040; 87086; 93005; 96365; 96367; 96375; 99285; J1170; J3370